=== PATIENT | male | born 1975 | race Caucasian/White ===

== ENCOUNTER 2023-05-14 19:14 | Inpatient (IN) ==
--- NOTE | 2023-05-14 20:16 | Emergency Department Note ---
Impression & Plan Decubitus ulcer of sacral area, Pneumonitis ED Provider Note NAME: NEHEMIAS SANTOS AGE: 47 SEX: M : 1975 ARRIVES VIA: Ambulance INFORMANT: Patient, ED PROVIDER(S): Rhett Frederick MD CHIEF COMPLAINT: Feeling cold all over HPI: This is a 47-year-old male history of paraplegia, CHF, constipation, hep C, hypertension, MRSA, PE, suprapubic catheter presenting for chills. Patient states that he states he has had about 1 week worth of weakness and pain throughout his body but most pronounced in his abdomen. He states that this became progressively worse today where he felt more shaking chills and sensation of feeling extremely cold. He notes that he went to outside hospitals previously but is unsure what exactly happened. He stated may have had a kidney infection related to a kidney stone. He has not had any fevers at home that is aware of. No nausea or vomiting. ROS: See above HPI for pertinent positives & negatives. A total of 10 systems reviewed and were otherwise negative. PAST MEDICAL HISTORY: See Below PAST SURGICAL HISTORY: See Below FAMILY HISTORY: See Below SOCIAL HISTORY: See Below HOME MEDICATIONS: See Below ALLERGIES: See Below VITALS: See Below PHYSICAL EXAMINATION: General: resting comfortably in no acute distress, in multiple blankets Head: Normocephalic and atraumatic Eyes: Normal inspection, extraocular muscles intact, no conjunctival pallor Ear, nose, throat: Normal external exam Neck: Normal range of motion Respiratory: Patient is in no respiratory distress, lungs clear to auscultation bilaterally Cardiovascular: RRR without murmur appreciated GI: soft, nontender, no guarding or rebound extensive sacral ulcer Extremities: pulses intact with good cap refills, no LE pitting edema or calf tenderness Neuro: The patient awake and alert, appropriately conversive,no focal decifits Skin: Warm, dry, and intact MEDICAL DECISION MAKING: This is a 47-year-old male history of paraplegia, suprapubic catheter, CHF, GERD, hep C, hypertension, MRSA infection, PE presenting for chills. Patient notes he was in outside hospital, [facility] as well as [facility]. I am able to check [facility]'s records which states that on 04/30 he was seen for concern for UTI pharmacy pubic catheter as well as sacral decubitus ulcer/osteomyelitis. At that time he received antibiotics, improved and was discharged. CT imaging shows from 04/30 and 05/02 of the abdomen/pelvis does reveal a nonobstructing left intrarenal calculi of unclear size and proctitis that resolved between these 2 scans. Last urinalysis on 04/30 grew Georgina albicans. His wound culture on his back from 03/15 grew MRSA. At this time we will get CT imaging of the chest abdomen pelvis due to patient's current symptoms. He states he has had possible pneumonia in the past and he feels similarly today. He also notes pain in his abdomen with burning. He states this is happened for his UTIs. Patient's blood work is reviewed showing WBC count of 11, hemoglobin 13.4, no creatinine elevation, no lactic acid elevation. Urinalysis does reveal signs of UTI at this time. We will treat as patient has CT findings consistent with cystitis as well. His CT of the chest otherwise does show infectious/inflammatory pneumonitis. CT of the and pelvis reveals the sacral ulcer with chronic osteomyelitis. Will admit for further work-up and treatment of his pneumonitis, UTI. Triage Nursing notes reviewed. Prior medical records reviewed Vital Signs: reviewed and remarkable for no significant abnormalities Differential diagnosis: Sepsis, high-pressure infection, sacral ulcer, PE, ACS ER treatment provided: See below Diagnostics interpreted by me: ECG: None Cardiac Monitoring: An order was placed for continuous cardiac monitoring. The monitor shows a rate of 56 with sinus rhythm Laboratory studies: As stated above and show below. Imaging studies: See below. Radiographic imaging was reviewed by myself Consultation(s): None Past Med/Surg History Social History Smoking Status: Unknown if ever smoked Feels Safe at Home: Yes Allergies Allergies Allergy/AdvReac Type Severity Reaction Status Date / Time No Known Allergies Allergy Verified 05/14/23 20:08 Home Meds Home Medications Medication Instructions Recorded Confirmed No Known Home Medications 05/14/23 05/14/23 Results & Data (ED) Vital Signs Vital Signs - 24 hr 05/14/23 19:07 05/14/23 21:18 05/15/23 01:31 Temperature 36.5 C Temperature Source Oral Pulse Rate 63 57 L 56 L Respiratory Rate 14 Blood Pressure 112/82 Blood Pressure Mean 92 Pulse Oximetry 98 Sepsis Recent Fever Within 48 Hours No Sepsis New/Unexplained Change in Mental Status No Sepsis Action Taken by Nursing No Action Required 05/14/23 21:06 05/14/23 21:30 05/14/23 22:00 Temperature Temperature Source Pulse Rate 57 L 68 65 Respiratory Rate 17 20 24 Blood Pressure Blood Pressure Mean Pulse Oximetry Sepsis Recent Fever Within 48 Hours Sepsis New/Unexplained Change in Mental Status Sepsis Action Taken by Nursing 05/14/23 22:30 05/14/23 23:00 05/14/23 23:30 Temperature Temperature Source Pulse Rate 53 L 54 L 60 Respiratory Rate 17 18 16 Blood Pressure Blood Pressure Mean Pulse Oximetry Sepsis Recent Fever Within 48 Hours Sepsis New/Unexplained Change in Mental Status Sepsis Action Taken by Nursing 05/15/23 00:00 05/15/23 00:30 05/15/23 01:00 Temperature Temperature Source Pulse Rate 69 55 L 60 Respiratory Rate 18 23 18 Blood Pressure Blood Pressure Mean Pulse Oximetry 96 Sepsis Recent Fever Within 48 Hours Sepsis New/Unexplained Change in Mental Status Sepsis Action Taken by Nursing 05/15/23 01:30 Temperature Temperature Source Pulse Rate 61 Respiratory Rate 22 Blood Pressure Blood Pressure Mean Pulse Oximetry Sepsis Recent Fever Within 48 Hours Sepsis New/Unexplained Change in Mental Status Sepsis Action Taken by Nursing Laboratory Data 05/14/23 20:37 05/14/23 20:37 Lab Results 05/14/23 05/14/23 05/14/23 Range/Units 20:37 20:37 20:37 WBC 11.09 H (4.8-10.8) K/ul RBC 5.28 (4.70-6.10) M/uL Hgb 13.4 L (14.0-18.0) g/dl Hct 41.4 L (42.0-52.0) % MCV 78.4 L (80.0-100.0) fL MCH 25.4 (25.0-34.0) pg MCHC 32.4 (32.0-36.0) g/dL RDW Std Deviation 52.7 H (36.4-46.3) fL RDW Coeff of Adelia 18.9 H (11.5-14.5) % Plt Count 285 (130-400) K/uL MPV 10.3 (9.4-12.4) fL Immature Gran % (Auto) 0.3 % Neut % (Auto) 73.0 % Lymph % (Auto) 14.5 % [place] % (Auto) 8.3 % Eos % (Auto) 3.1 % Baso % (Auto) 0.8 % Neut # (Auto) 8.10 H (1.40-6.50) K/uL Lymph # (Auto) 1.61 (1.20-3.40) K/uL [place] # (Auto) 0.92 H (0.11-0.59) K/uL Eos # (Auto) 0.34 (0.00-0.50) K/uL Baso # (Auto) 0.09 (0.00-0.20) K/uL Immature Gran # (Auto) 0.03 (0.01-0.20) K/uL Sodium 137 (136-145) mmol/L Potassium 3.9 (3.5-5.1) mmol/L Chloride 104 (98-107) mmol/L Carbon Dioxide 28 (21-32) mmol/L Anion Gap 5 (3-11) BUN 10 (6-23) mg/dl Creatinine 0.46 L (0.6-1.4) mg/dl Est Cr Clr Drug Dosing 221.1 ml/min Est GFR ( Amer) > 150.0 ml/min Est GFR (Non-Af Amer) 134.5 ml/min BUN/Creatinine Ratio 21.7 H (10-20) Glucose 97 (70-99(Fasting)) mg/dl Lactate (0.4-2.0) mmol/L Calcium 9.6 (8.6-10.3) mg/dl Magnesium 2.0 (1.7-2.4) mg/dl Total Bilirubin 0.4 (0.2-1.0) mg/dl AST 21 (13-39) U/L ALT 15 (7-52) U/L Alkaline Phosphatase 194 H (34-104) U/L Total Protein 6.9 (6.0-8.3) gm/dl Albumin 4.0 (3.4-5.0) gm/dl Globulin 2.9 (2.5-4.0) gm/dl Albumin/Globulin Ratio 1.4 (0.9-2) Lipase 26 (11-82) U/L Urine Color Yellow Urine Appearance Cloudy A (Clear) Urine pH 7.5 (4.5-7.5) Ur Specific [place] 1.016 (1.000-1.030) Urine Protein Trace H (Negative) Urine Glucose (UA) Negative (Negative) Urine Ketones Negative (Negative) Urine Blood Trace H (Negative) Urine Nitrite Negative (Negative) Urine Bilirubin Negative (Negative) Urine Urobilinogen Negative (Negative) Ur Leukocyte Esterase 3+ H (Negative) Urine WBC (Auto) >30 H (0-5) /hpf Urine RBC (Auto) 5-10 H (0-4) /hpf U Hyaline Cast (Auto) 1-5 (0-5) /lpf U Epithel Cells (Auto) 0-5 (0-5) /lpf Urine Bacteria (Auto) Negative (Negative) Calcium Oxalate Crystal Present A (None Prsent) Urine Yeast Present A (None Prsent) Adenovirus (PCR) (NotDetected) B. pertussis DNA (PCR) (NotDetected) B.parapertussis DNA PCR (NotDetected) C. pneumoniae DNA (PCR) (NotDetected) Coronavirus OC43 (PCR) (NotDetected) Coronavirus HKU1 (PCR) (NotDetected) Coronavirus 229E (PCR) (NotDetected) SARS-CoV-2 (PCR) (NotDetected) Coronavirus NL63 (PCR) (NotDetected) Human Metapneumovir PCR (NotDetected) Influenza Type A (PCR) (NotDetected) Influenza Type B (PCR) (NotDetected) M. pneumoniae (PCR) (NotDetected) Parainfluenza 1 (PCR) (NotDetected) Parainfluenza 2 (PCR) (NotDetected) Parainfluenza 3 (PCR) (NotDetected) Parainfluenza 4 (PCR) (NotDetected) RSV (PCR) (NotDetected) Entero/Rhino (PCR) (NotDetected) 05/14/23 05/15/23 Range/Units 21:37 00:00 WBC (4.8-10.8) K/ul RBC (4.70-6.10) M/uL Hgb (14.0-18.0) g/dl Hct (42.0-52.0) % MCV (80.0-100.0) fL MCH (25.0-34.0) pg MCHC (32.0-36.0) g/dL RDW Std Deviation (36.4-46.3) fL RDW Coeff of Adelia (11.5-14.5) % Plt Count (130-400) K/uL MPV (9.4-12.4) fL Immature Gran % (Auto) % Neut % (Auto) % Lymph % (Auto) % [place] % (Auto) % Eos % (Auto) % Baso % (Auto) % Neut # (Auto) (1.40-6.50) K/uL Lymph # (Auto) (1.20-3.40) K/uL [place] # (Auto) (0.11-0.59) K/uL Eos # (Auto) (0.00-0.50) K/uL Baso # (Auto) (0.00-0.20) K/uL Immature Gran # (Auto) (0.01-0.20) K/uL Sodium (136-145) mmol/L Potassium (3.5-5.1) mmol/L Chloride (98-107) mmol/L Carbon Dioxide (21-32) mmol/L Anion Gap (3-11) BUN (6-23) mg/dl Creatinine (0.6-1.4) mg/dl Est Cr Clr Drug Dosing ml/min Est GFR ( Amer) ml/min Est GFR (Non-Af Amer) ml/min BUN/Creatinine Ratio (10-20) Glucose (70-99(Fasting)) mg/dl Lactate 0.6 (0.4-2.0) mmol/L Calcium (8.6-10.3) mg/dl Magnesium (1.7-2.4) mg/dl Total Bilirubin (0.2-1.0) mg/dl AST (13-39) U/L ALT (7-52) U/L Alkaline Phosphatase (34-104) U/L Total Protein (6.0-8.3) gm/dl Albumin (3.4-5.0) gm/dl Globulin (2.5-4.0) gm/dl Albumin/Globulin Ratio (0.9-2) Lipase (11-82) U/L Urine Color Urine Appearance (Clear) Urine pH (4.5-7.5) Ur Specific [place] (1.000-1.030) Urine Protein (Negative) Urine Glucose (UA) (Negative) Urine Ketones (Negative) Urine Blood (Negative) Urine Nitrite (Negative) Urine Bilirubin (Negative) Urine Urobilinogen (Negative) Ur Leukocyte Esterase (Negative) Urine WBC (Auto) (0-5) /hpf Urine RBC (Auto) (0-4) /hpf U Hyaline Cast (Auto) (0-5) /lpf U Epithel Cells (Auto) (0-5) /lpf Urine Bacteria (Auto) (Negative) Calcium Oxalate Crystal (None Prsent) Urine Yeast (None Prsent) Adenovirus (PCR) Not Detected (NotDetected) B. pertussis DNA (PCR) Not Detected (NotDetected) B.parapertussis DNA PCR Not Detected (NotDetected) C. pneumoniae DNA (PCR) Not Detected (NotDetected) Coronavirus OC43 (PCR) Not Detected (NotDetected) Coronavirus HKU1 (PCR) Not Detected (NotDetected) Coronavirus 229E (PCR) Not Detected (NotDetected) SARS-CoV-2 (PCR) Not Detected (NotDetected) Coronavirus NL63 (PCR) Not Detected (NotDetected) Human Metapneumovir PCR Not Detected (NotDetected) Influenza Type A (PCR) Not Detected (NotDetected) Influenza Type B (PCR) Not Detected (NotDetected) M. pneumoniae (PCR) Not Detected (NotDetected) Parainfluenza 1 (PCR) Not Detected (NotDetected) Parainfluenza 2 (PCR) Not Detected (NotDetected) Parainfluenza 3 (PCR) Not Detected (NotDetected) Parainfluenza 4 (PCR) Not Detected (NotDetected) RSV (PCR) Not Detected (NotDetected) Entero/Rhino (PCR) DETECTED A* (NotDetected) Administered Medications Discontinued Medications Ceftriaxone Sodium 2,000 mg/ (Dextrose) 70 mls @ 100 mls/hr IV NOW STA; Protocol Stop: 05/15/23 00:55 Last Infusion: 05/15/23 01:26 Dose: 0 mls/hr Documented By: Admin: 05/15/23 00:39 Dose: 100 mls/hr Documented By: Ioversol (Optiray 320 100ml) 91 ml IV ONCE ONE Stop: 05/14/23 21:48 Last Admin: 05/14/23 21:48 Dose: 91 ml Documented By: CORRIE Ketorolac Tromethamine (Ketorolac Tromethamine 15 Mg/Ml Vial) 15 mg IV NOW ONE Stop: 05/15/23 00:36 Last Admin: 05/15/23 00:38 Dose: 15 mg Documented By: Imaging Data Radiologist's Impression: Abdomen/Pelvis CT 05/14/23 20:02 CT SCAN OF THE ABDOMEN AND PELVIS WITH IV CONTRAST CLINICAL HISTORY: Generalized abdominal pain. COMPARISON STUDY: No priors. TECHNIQUE: Following the IV administration of 91 cc of Optiray 320, CT scan of the abdomen and pelvis is performed from the lung bases to the proximal femora. Images are reviewed in the axial, sagittal, and coronal planes. IV contrast was administered without complication. A dose lowering technique was utilized ad hamlet to the principles of ALARA. CT DOSE: 2909.35 mGy.cm FINDINGS: Lung bases: The heart is normal in size and without pericardial effusion. Peribronchial thickening is seen in the lower lobes with residual minimal secr etions/debris. Bibasilar airspace opacities could represent scar/atelectasis versus mild pneumonitis. No pleural effusion is seen. Liver: The contrast-enhanced liver is normal in size, contour, and attenuation. There is mild central intrahepatic biliary ductal dilatation. The hepatic veins and portal veins are patent. Gallbladder: Surgically absent noting clips in the gallbladder fossa. Spleen: Normal in size and attenuation. Pancreas: Unremarkable. Adrenal glands: Unremarkable. Kidneys: The contrast enhanced kidneys are normal in size and without hydronephrosis. The kidneys enhance symmetrically. There are at least 3 nonobstructing left renal calculi which measure up to 10 mm. A punctate calculus is suggested in the right lower pole. No ureteral stone is seen. Abdominal vasculature: The abdominal aorta is normal in course and caliber. Bowel: There is mild to moderate colonic fecal retention. No bowel obstruction is seen. The appendix is not visualized. Peritoneum: There is no intraperitoneal free air or abdominal ascites. There is a small fat-containing umbilical hernia. Lymphadenopathy: None. Pelvic viscera: The bladder is decompressed around a suprapubic catheter. The wall appears diffusely thickened and there are foci of intraluminal gas. The prostate and seminal vesicles are normal as visualized. Skeletal structures: The skeletal structures are osteopenic. No lytic or blastic lesions are seen. The lower sacrum and coccyx have been resected. There is a large decubitus ulceration overlying the sacrum. This reaches the sacral cortex, and there is underlying sclerotic change. No bony erosion is clearly identified. IMPRESSION: 1. Dependent opacities are present both lung bases, left greater then right as detailed above. This could represent scarring/atelectasis versus a mild pneumonitis. Clinical correlation will be required. Radiographic follow-up to resolution is recommended. 2. The bladder is decompressed around a suprapubic catheter and appears diffusely thick-walled. Correlate with clinical findings and urinalysis for evidence of cystitis. 3. Bilateral nephrolithiasis. No ureteral stone is seen. 4. Large sacral decubitus ulceration, which extends to the underlying sacrum. There is sclerotic change in the underlying bone which may represent chronic osteomyelitis. No erosive change is identified. Correlate clinically. 5. Additional findings as above. ACT 112: Negative or not required by law. Electronically signed by: Ramo Green M.D. 05/14/2023 10:[address] 05/14/23 20:02 CT SCAN OF THE CHEST WITH IV CONTRAST CLINICAL HISTORY: Dyspnea. COMPARISON STUDY: No priors. TECHNIQUE: Following the IV administration of 91 cc of Optiray 320, CT scan of the thorax was performed from the thoracic inlet to the upper abdomen. Images are reviewed in the axial, sagittal, and coronal planes. IV contrast was administered without complication. A dose lowering technique was utilized adhering to the principles of ALARA. The examination is degraded by motion artifact, as well as by streak artifact from the arms which could not be elevated above the chest. FINDINGS: Thyroid: Imaged portions of the thyroid gland are normal in size and attenuation. Thoracic aorta: The thoracic aorta is normal in caliber and demonstrates 4- vessel variant arch anatomy. No dissection is seen. Pulmonary vasculature: The pulmonary trunk is normal in caliber. There are no filling defects identified in the central pulmonary vessels to indicate pulmonary embolus. Note that this examination was not protocoled for evaluation of the pulmonary arteries. Heart: The heart is top normal in size and without pericardial effusion. Lungs and pleural spaces: Evaluation of the lung parenchyma is mostly degraded by motion artifact. There are patchy foci of subpleural airspace consolidation in the upper lobes. Peribronchial thickening is seen in the lower lobes with mucous plugging/intraluminal debris. There are dependent airspace opacities, left greater than right. No pleural effusion is identified. The trachea appears clear. Debris is seen within the mainstem bronchi. Mediastinum: There is no mediastinal lymphadenopathy. Aliya: Clear. Axillae: There is no axillary lymphadenopathy. Upper abdomen: Partially visualized upper abdominal viscera is within normal limits. Skeletal structures: The skeletal structures are osteopenic. No lytic or blastic bony lesions are seen. Fusion hardware is noted at the cervicothoracic junction. Mild hyperkyphosis is noted in the thoracic spine. IMPRESSION: 1. There are patchy foci of subpleural airspace consolidation in the upper lobes, typical for an infectious/inflammatory pneumonitis. 2. Additionally, there is diffuse peribronchial thickening with debris/mucus plugging mainstem bronchi as well as the lower lobe airways. There are dependent airspace opacities at both lung bases, left greater than right. This comparison scarring/atelectasis versus pneumonia/aspiration pneumonitis. Clinical correlation of these findings will be required and radiographic follow-up to resolution is recommended. A 3-4 month follow-up chest CT is also recommended to document complete resolution and reevaluate the underlying lung parenchyma. 3. There is no pleural effusion. 4. Additional findings as above. ACT 112: Negative or not required by law. Electronically signed by: Ramo Green M.D. 05/14/2023 11:17 PM Discharge Plan Visit Data Chief Complaint: Illness Stated Complaint: ILLNESS ED Provider: Rhett Frederick Discharge Problem: Decubitus ulcer of sacral area, Pneumonitis Forms Stand Alone Forms: [employer] Prescriptions Prescriptions: No Action No Known Home Medications Referrals Referrals: Ricky Link MD [Surgeon] -
[2023-05-14 21:22] LABS: Alanine Aminotransferase 15 U/L (7-52); Albumin Globulin Ratio 1.4 (0.9-2); Alkaline Phosphatase 194 U/L (34-104); Anion Gap 5 (3-11); Aspartate Aminotransferase 21 U/L (13-39); BUN Creatinine Ratio 21.7 (10-20); Bilirubin,Total 0.4 mg/dl (0.2-1.0); Blood Urea Nitrogen 10 mg/dl (6-23); Calcium 9.6 mg/dl (8.6-10.3); Carbon Dioxide 28 mmol/L (21-32); Chloride 104 mmol/L (98-107); Creatinine Clr Calc Pharmacy 221.1 ml/min; Est GFR (African American) > 150.0 ml/min; Est GFR (Non-African American) 134.5 ml/min; Globulin 2.9 gm/dl (2.5-4.0); Glucose 97 mg/dl (70-99(Fasting)); Lipase 26 U/L (11-82); Potassium 3.9 mmol/L (3.5-5.1); Sodium 137 mmol/L (136-145); Total Protein 6.9 gm/dl (6.0-8.3)
[2023-05-14] MEDS ORDERED: OPTIRAY 320 100ml IV ONE (21:47)
[2023-05-14 21:49] LABS: Basophils # (auto) 0.09 K/uL (0.00-0.20); Basophils % (auto) 0.8 %; Eosinophils # (auto) 0.34 K/uL (0.00-0.50); Eosinophils % (auto) 3.1 %; Hematocrit (blood only) 41.4 % (42.0-52.0); Hemoglobin 13.4 g/dl (14.0-18.0); Immature Granulocytes # (auto) 0.03 K/uL (0.01-0.20); Immature Granulocytes % (auto) 0.3 %; Lymphocytes # (auto) 1.61 K/uL (1.20-3.40); Lymphocytes % (auto) 14.5 %; Mean Corpuscular Hemoglobin 25.4 pg (25.0-34.0); Mean Corpuscular Hgb Conc 32.4 g/dL (32.0-36.0); Mean Corpuscular Volume 78.4 fL (80.0-100.0); Mean Platelet Volume 10.3 fL (9.4-12.4); Monocytes # (auto) 0.92 K/uL (0.11-0.59); Monocytes % (auto) 8.3 %; Platelet Count 285 K/uL (130-400); RDW Coefficient of Variation 18.9 % (11.5-14.5); RDW Standard Deviation 52.7 fL (36.4-46.3); Red Blood Count 5.28 M/uL (4.70-6.10); White Blood Count 11.09 K/ul (4.8-10.8)
[2023-05-14 21:53] LABS: Appearance Urine Cloudy (Clear); Bacteria Urine Automated Negative (Negative); Bilirubin Urine Negative (Negative); Blood Urine Trace (Negative); Color Urine Yellow; Epithelial Cell Urine Auto 0-5 /lpf (0-5); Glucose Urine UA Negative (Negative); Ketones Urine Negative (Negative); Leukocyte Esterase Urine 3+ (Negative); Nitrite Urine Negative (Negative); Specific Gravity Urine 1.016 (1.000-1.030); Urobilinogen Urine Negative (Negative); WBC Urine Automated >30 /hpf (0-5); pH Urine 7.5 (4.5-7.5)
[2023-05-14 21:59] LABS: Protein Urine Trace (Negative)
[2023-05-14 22:12] LABS: Calcium Oxalate Crystals Urine Present (None Prsent)
--- NOTE | 2023-05-14 22:55 | CT Scan Report ---
CT SCAN OF THE ABDOMEN AND PELVIS WITH IV CONTRAST CLINICAL HISTORY: Generalized abdominal pain. COMPARISON STUDY: No priors. TECHNIQUE: Following the IV administration of 91 cc of Optiray 320, CT scan of the abdomen and pelvi s is performed from the lung bases to the proximal femora. Images are reviewed in the axial, sagittal , and coronal planes. IV contrast was administered without complication. A dose lowering technique wa s utilized adhering to the principles of ALARA. CT DOSE: 2909.35 mGy.cm FINDINGS: Lung bases: The heart is normal in size and without pericardial effusion. Peribronchial thickening is seen in the lower lobes with residual minimal secretions/debris. Bibasilar airspace opacities could represent scar/atelectasis versus mild pneumonitis. No pleural effusion is seen. Liver: The contrast-enhanced liver is normal in size, contour, and attenuation. There is mild central intrahepatic biliary ductal dilatation. The hepatic veins and portal veins are patent. Gallbladder: Surgically absent noting clips in the gallbladder fossa. Spleen: Normal in size and attenuation. Pancreas: Unremarkable. Adrenal glands: Unremarkable. Kidneys: The contrast enhanced kidneys are normal in size and without hydronephrosis. The kidneys enh ance symmetrically. There are at least 3 nonobstructing left renal calculi which measure up to 10 mm. A punctate calculus is suggested in the right lower pole. No ureteral stone is seen. Abdominal vasculature: The abdominal aorta is normal in course and caliber. Bowel: There is mild to moderate colonic fecal retention. No bowel obstruction is seen. The appendix is not visualized. Peritoneum: There is no intraperitoneal free air or abdominal ascites. There is a small fat-containin g umbilical hernia. Lymphadenopathy: None. Pelvic viscera: The bladder is decompressed around a suprapubic catheter. The wall appears diffusely thickened and there are foci of intraluminal gas. The prostate and seminal vesicles are normal as vis ualized. Skeletal structures: The skeletal structures are osteopenic. No lytic or blastic lesions are seen. Th e lower sacrum and coccyx have been resected. There is a large decubitus ulceration overlying the sac rum. This reaches the sacral cortex, and there is underlying sclerotic change. No bony erosion is jamie catherine identified. IMPRESSION: 1. Dependent opacities are present both lung bases, left greater then right as detailed above. This c ould represent scarring/atelectasis versus a mild pneumonitis. Clinical correlation will be required. Radiographic follow-up to resolution is recommended. 2. The bladder is decompressed around a suprapubic catheter and appears diffusely thick-walled. Corre late with clinical findings and urinalysis for evidence of cystitis. 3. Bilateral nephrolithiasis. No ureteral stone is seen. 4. Large sacral decubitus ulceration, which extends to the underlying sacrum. There is sclerotic joyce ge in the underlying bone which may represent chronic osteomyelitis. No erosive change is identified. Correlate clinically. 5. Additional findings as above. ACT 112: Negative or not required by law. Electronically signed by: Ramo Green M.D. 05/14/2023 10:53 PM
--- NOTE | 2023-05-14 23:19 | CT Scan Report ---
CT SCAN OF THE CHEST WITH IV CONTRAST CLINICAL HISTORY: Dyspnea. COMPARISON STUDY: No priors. TECHNIQUE: Following the IV administration of 91 cc of Optiray 320, CT scan of the thorax was perform ed from the thoracic inlet to the upper abdomen. Images are reviewed in the axial, sagittal, and augustine nal planes. IV contrast was administered without complication. A dose lowering technique was utilize d adhering to the principles of ALARA. The examination is degraded by motion artifact, as well as by streak artifact from the arms which could not be elevated above the chest. FINDINGS: Thyroid: Imaged portions of the thyroid gland are normal in size and attenuation. Thoracic aorta: The thoracic aorta is normal in caliber and demonstrates 4-vessel variant arch anatom y. No dissection is seen. Pulmonary vasculature: The pulmonary trunk is normal in caliber. There are no filling defects identif ied in the central pulmonary vessels to indicate pulmonary embolus. Note that this examination was no t protocoled for evaluation of the pulmonary arteries. Heart: The heart is top normal in size and without pericardial effusion. Lungs and pleural spaces: Evaluation of the lung parenchyma is mostly degraded by motion artifact. Th ere are patchy foci of subpleural airspace consolidation in the upper lobes. Peribronchial thickening is seen in the lower lobes with mucous plugging/intraluminal debris. There are dependent airspace op acities, left greater than right. No pleural effusion is identified. The trachea appears clear. Debri s is seen within the mainstem bronchi. Mediastinum: There is no mediastinal lymphadenopathy. Aliya: Clear. Axillae: There is no axillary lymphadenopathy. Upper abdomen: Partially visualized upper abdominal viscera is within normal limits. Skeletal structures: The skeletal structures are osteopenic. No lytic or blastic bony lesions are see n. Fusion hardware is noted at the cervicothoracic junction. Mild hyperkyphosis is noted in the thora cic spine. IMPRESSION: 1. There are patchy foci of subpleural airspace consolidation in the upper lobes, typical for an infe ctious/inflammatory pneumonitis. 2. Additionally, there is diffuse peribronchial thickening with debris/mucus plugging mainstem bronch i as well as the lower lobe airways. There are dependent airspace opacities at both lung bases, left greater than right. This comparison scarring/atelectasis versus pneumonia/aspiration pneumonitis. Cli nical correlation of these findings will be required and radiographic follow-up to resolution is lucille mmended. A 3-4 month follow-up chest CT is also recommended to document complete resolution and reeva luate the underlying lung parenchyma. 3. There is no pleural effusion. 4. Additional findings as above. ACT 112: Negative or not required by law. Electronically signed by: Ramo Green M.D. 05/14/2023 11:17 PM
[2023-05-15] MEDS ORDERED: cefTRIAXone SODIUM 2,000 MG in DEXTROSE 5% 50 ML IV STA (00:14)
[2023-05-15] MEDS ORDERED: KETOROLAC TROMETHAMINE 15 MG/ML VIAL IV ONE ×2 (00:35→01:39)
[2023-05-15] MEDS ORDERED: SODIUM CHLORIDE 0.9% 1,000 ML IV ONE (00:39)
[2023-05-15 01:08] LABS: Adenovirus PCR Not Detected (NotDetected); Bordetella parapertussis PCR Not Detected (NotDetected); Bordetella pertussis PCR Not Detected (NotDetected); Chlamydia pneumoniae PCR Not Detected (NotDetected); Coronavirus 229E PCR Not Detected (NotDetected); Coronavirus CoV-2 (COVID19)PCR Not Detected (NotDetected); Coronavirus HKU1 PCR Not Detected (NotDetected); Coronavirus NL63 PCR Not Detected (NotDetected); Coronavirus OC43PCR Not Detected (NotDetected); Human Metapneumovirus PCR Not Detected (NotDetected); Influenza A PCR Not Detected (NotDetected); Influenza B PCR Not Detected (NotDetected); Mycoplasma pneumoniae PCR Not Detected (NotDetected); Parainfluenza Virus 1 PCR Not Detected (NotDetected); Parainfluenza Virus 2 PCR Not Detected (NotDetected); Parainfluenza Virus 3 PCR Not Detected (NotDetected); Parainfluenza Virus 4 PCR Not Detected (NotDetected); Respiratory Syncytial VirusPCR Not Detected (NotDetected)
[2023-05-15 01:15] LABS: Rhinovirus/Enterovirus PCR DETECTED (NotDetected)
[2023-05-15] MEDS ORDERED: MEROPENEM 500 MG in SYRINGE 0 ML IV ONE (01:15)
[2023-05-15] MEDS ORDERED: FLUCONAZOLE 200 MG/100 ML BAG IV ONE (01:15)
[2023-05-15] MEDS ORDERED: ALBUT/IPRATROP 3MG/0.5MG NEB 3 ML VIAL NEB STA (01:38)
--- NOTE | 2023-05-15 01:38 | History & Physical Report ---
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) recurrent UTI secondary to neurogenic bladder with chronic indwelling suprapubic catheter, poor compliance with suprapubic catheter care and outpatient urology visits as per specialist documentation hypotension on midodrine HCV status post Rx chronic anemia, hemoglobin at baseline chronic sacral decubitus/leg osteomyelitis, not worsening as per patient chronic pain on narcotics anxiety/mood disorder, at baseline hx substance abuse as per records Possible functional disability ongoing tobacco abuse History of MRSA Medical telemetry Meropenem for possible aspiration pneumonia resulting in COPD exacerbation nebs RTC, short course of steroids Aspiration precautions, CULINARY DIRECTOR eval Pulmonary consult if without improvement Urine CS Meropenem for complicated UTI in light of microbiologic history Fluconazole for funguria [facility] ID consult Re: Complicated UTI/funguria May benefit from inpatient Urology consultation pending recommendations. Wound care nurse consult re: chronic decubiti wounds Judicious narcotic use given history of substance abuse PT OT eval Nicotine patch as needed DVT prophylaxis. Eliquis Full code Text document was generated using [employer] voice recognition software. It may contain grammatical or spelling errors. Kindly contact undersigned for clarification of any documentation item in question. History of Present Illness Chief Complaint: Cough, shortness of breath, abdominal pain, weakness Primary Care Provider: Dr. Aguilar History obtained from patient and records. 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 Last confinement at [facility] April 22 to 2022 for chronic sacral and LE osteomyelitis. Pseudomonas and Enterobacter on CS. Patient discharged on 10-day course of Cipro Rx as per ID recommendations. Patient later developed flank pain followed by admission at [facility]. CT imaging showed nonobstructing left intrarenal calculi of unclear size and proctitis as per report. UA grew Georgina albicans. Patient discharged on antibiotic medications. Patient returned to [facility] ER last May 04, 2023 for persistent flank pain complaints attributed to UTI. CT abdomen pelvis results as follows; 1. Nonobstructing bilateral renal calculi greater on the left. 2. Stable suprapubic catheter with diffuse wall thickening and non dependent air within the bladder secondary to catheterization. 3. Sacral decubitus ulcer with associated osteomyelitis of the sacrum. Patient discharged on Cefdinir course. No growth on final urine CS. Patient noted worsening achy flank pain complaints in the last week. Patient missed outpatient [facility] Urology appointment. Feeling cold all over. Junky cough symptoms with shortness of breath. Admits to coughing with meals/water intake if not careful. Some chest pain from coughing. No headache symptoms. No hematuria. Patient brought to the ER for evaluation. IV ceftriaxone administered at the ER. Medical History as above Surgical History : Ankle surgery, neck surgery, urologic procedures, arm surgery, appendectomy Family History : Heart disease Personal/Social history : 2 packs daily, occasional EtOH intake, disabled Allergies Allergy/AdvReac Type Severity Reaction Status Date / Time No Known Allergies Allergy Verified 05/14/23 20:08 Home Medications Medication Instructions Recorded Confirmed Type Naloxone Hcl 4 Mg/0.1ml Liquid See Rx Instructions .Route .COMPLEX 05/15/23 05/15/23 History acetaminophen 500 mg tablet 500 mg PO .Q 4 HRS WHILE AWAKE 05/15/23 05/15/23 H istory apixaban 5 mg tablet 5 mg PO AMHS 05/15/23 05/15/23 History ascorbic acid (vitamin C) 500 mg 500 mg PO QAM 05/15/23 05/15/23 History tablet (Vitamin C) baclofen 10 mg tablet 20 mg PO TID 05/15/23 05/15/23 History bisacodyl 10 mg rectal suppository 10 mg LA AMPM 05/15/23 05/15/23 History celecoxib 200 mg capsule 200 mg PO AMHS 05/15/23 05/15/23 History ciprofloxacin HCl 500 mg tablet 500 mg PO AMHS 05/15/23 05/15/23 History collagenase clostridium histo. 250 1 applic topical DAILY 05/15/23 05/15/23 History unit/gram topical ointment (Santyl) diclofenac sodium 1 % topical gel 2 g topical QID 05/15/23 05/15/23 History duloxetine 60 mg capsule,delayed 60 mg PO QAM 05/15/23 05/15/23 History release famotidine 20 mg tablet 20 mg PO AMHS 05/15/23 05/15/23 History ferrous sulfate 325 mg (65 mg 325 mg PO QDB 05/15/23 05/15/23 History iron) tablet fluticasone propionate 100 1 inh inhalation AMHS 05/15/23 05/15/23 History mcg/actuation blister powder for inhalation gabapentin 100 mg capsule 200 mg PO TID 05/15/23 05/15/23 History hydroxyzine HCl 25 mg tablet 25 mg PO QAM 05/15/23 05/15/23 History lactulose 20 gram/30 mL oral 20 g PO TID 05/15/23 05/15/23 History solution lidocaine 5 % topical patch 1 patch topical DAILY 05/15/23 05/15/23 History lidocaine HCl 2 % mucosal solution 5 ml PO ACHS PRN as directed 05/15/23 05/15/23 History (Lidocaine Viscous) melatonin 3 mg tablet 3 mg PO HS 05/15/23 05/15/23 History midodrine 10 mg tablet 5 mg PO TID 05/15/23 05/15/23 History mirabegron 50 mg tablet,extended 50 mg PO QAM 05/15/23 05/15/23 History release 24 hr (Myrbetriq) multivitamin 1 tab PO DAILY 05/15/23 05/15/23 History oxybutynin chloride 10 mg 10 mg PO QAM 05/15/23 05/15/23 History tablet,extended release 24 hr oxycodone 15 mg tablet (Roxicodone) 15 mg PO Q4H PRN pain severe 05/15/23 05/15/23 History pantoprazole 40 mg tablet,delayed 40 mg PO QAM 05/15/23 05/15/23 History release polyethylene glycol 3350 17 gram 17 g PO AMHS 05/15/23 05/15/23 History oral powder packet (Miralax) potassium chloride 20 mEq 20 meq PO AMHS 05/15/23 05/15/23 History tablet,extended release(part/cryst) sennosides 8.6 mg-docusate sodium 2 tab-cap PO HS 05/15/23 05/15/23 History 50 mg tablet solifenacin 10 mg tablet 10 mg PO QAM 05/15/23 05/15/23 History trazodone 50 mg tablet 50 mg PO HS 05/15/23 05/15/23 History umeclidinium 62.5 mcg-vilanterol 1 inh inhalation [facility] 05/15/23 05/15/23 History 25 mcg/actuation powdr for inhalation (Anoro Ellipta) Past Med/Surg History Social History Smoking Status: Heavy tobacco smoker Tobacco Type: Cigarettes Cigarettes Per Day: 40; Second Hand Exposure: Yes; Do You Dip or Chew Tobacco: No; Tobacco Cessation Education Requested by Patient: No Hx Alcohol Use: No Hx Substance Use: Yes Last Used Substance: Unknown Preferred Language: Kinyarwanda Communication Ability: Effective Toy Painter Required: No Beliefs That Will Affect Care: None Current Living Situation: Alone and Family Other Information That Helps Us Care for You: No Feels Safe at Home: Yes Safety Concerns: Feels Safe At This Time Assistive Devices: Wheelchair Review of Systems Review of Systems: As per HPI, all other systems reviewed and negative Physical Exam Physical Exam: GENERAL: Slightly uncomfortable, looks older than stated age, no respiratory distress SKIN: Pallor, warm HEENT: Alopecia, pale palpebral conjunctivae, no ptosis, dry buccal mucosa NECK : Some limitation in motion, no tenderness CHEST : Decreased breath sounds, bilateral rhonchi with scattered wheezes, no tenderness HEART : Bradycardic, no obvious murmurs ABDOMEN: Some distention, hypogastric tenderness EXTREMITIES : Minimal LE swelling/tenderness, posterior surfaces not examined NEUROLOGIC : Coherent, no facial asymmetry, MMTS BUE 3/5, BLE 0 Results & Data Results & Data Vital Signs (Past 12 Hours) Vital Signs Temp Pulse Resp BP Pulse Ox 05/15/23 01:31 56 L 05/14/23 21:18 57 L 05/14/23 19:07 36.5 C 63 14 112/82 98 Laboratory Results Laboratory Results WBC 11.09 K/ul (4.8-10.8) H 05/14/23 20:37 RBC 5.28 M/uL (4.70-6.10) 05/14/23 20:37 Hgb 13.4 g/dl (14.0-18.0) L 05/14/23 20:37 Hct 41.4 % (42.0-52.0) L 05/14/23 20:37 MCV 78.4 fL (80.0-100.0) L 05/14/23 20:37 MCH 25.4 pg (25.0-34.0) 05/14/23 20: MCHC 32.4 g/dL (32.0-36.0) 05/14/23 20:37 RDW Std Deviation 52.7 fL (36.4-46.3) H 05/14/23 20:37 RDW Coeff of Adelia 18.9 % (11.5-14.5) H 05/14/23 20:37 Plt Count 285 K/uL (130-400) 05/14/23 20:37 MPV 10.3 fL (9.4-12.4) 05/14/23 20:37 Immature Gran % (Auto) 0.3 % 05/14/23 20:37 Neut % (Auto) 73.0 % 05/14/23 20:37 Lymph % (Auto) 14.5 % 05/14/23 20:37 Jasper % (Auto) 8.3 % 05/14/23 20:37 Eos % (Auto) 3.1 % 05/14/23 20:37 Baso % (Auto) 0.8 % 05/14/23 20:37 Neut # (Auto) 8.10 K/uL (1.40-6.50) H 05/14/23 20:37 Lymph # (Auto) 1.61 K/uL (1.20-3.40) 05/14/23 20:37 Jasper # (Auto) 0.92 K/uL (0.11-0.59) H 05/14/23 20:37 Eos # (Auto) 0.34 K/uL (0.00-0.50) 05/14/23 20:37 Baso # (Auto) 0.09 K/uL (0.00-0.20) 05/14/23 20:37 Immature Gran # (Auto) 0.03 K/uL (0.01-0.20) 05/14/23 20:37 Sodium 137 mmol/L (136-145) 05/14/23 20:37 Potassium 3.9 mmol/L (3.5-5.1) 05/14/23 20:37 Chloride 104 mmol/L (98-107) 05/14/23 20:37 Carbon Dioxide 28 mmol/L (21-32) 05/14/23 20:37 Anion Gap 5 (3-11) 05/14/23 20:37 BUN 10 mg/dl (6-23) 05/14/23 20:37 Creatinine 0.46 mg/dl (0.6-1.4) L 05/14/23 20:37 Est Cr Clr Drug Dosing 221.1 ml/min 05/14/23 20:37 Est GFR ( Amer) > 150.0 ml/min 05/14/23 20:37 Est GFR (Non-Af Amer) 134.5 ml/min 05/14/23 20:37 BUN/Creatinine Ratio 21.7 (10-20) H 05/14/23 20:37 Glucose 97 mg/dl (70-99(Fasting)) 05/14/23 20:37 Lactate 0.6 mmol/L (0.4-2.0) 05/14/23 21:37 Calcium 9.6 mg/dl (8.6-10.3) 05/14/23 20:37 Magnesium 2.0 mg/dl (1.7-2.4) 05/14/23 20:37 Total Bilirubin 0.4 mg/dl (0.2-1.0) 05/14/23 20:37 AST 21 U/L (13-39) 05/14/23 20:37 ALT 15 U/L (7-52) 05/14/23 20:37 Alkaline Phosphatase 194 U/L (34-104) H 05/14/23 20:37 Total Protein 6.9 gm/dl (6.0-8.3) 05/14/23 20:37 Albumin 4.0 gm/dl (3.4-5.0) 05/14/23 20: Globulin 2.9 gm/dl (2.5-4.0) 05/14/23 20: Albumin/Globulin Ratio 1.4 (0.9-2) 05/14/23 20: Lipase 26 U/L (11-82) 05/14/23 20:37 Urine Color Yellow 05/14/23 20: Urine Appearance Cloudy (Clear) A 05/14/23 20: Urine pH 7.5 (4.5-7.5) 05/14/23 20:37 Ur Specific [place] 1.016 (1.000-1.030) 05/14/23 20: Urine Protein Trace (Negative) H 05/14/23 20:37 Urine Glucose (UA) Negative (Negative) 05/14/23: Urine Ketones Negative (Negative) 05/14/23 20: Urine Blood Trace (Negative) H 05/14/23 20:37 Urine Nitrite Negative (Negative) 05/14/23: Urine Bilirubin Negative (Negative) 05/14/23:37 Urine Urobilinogen Negative (Negative) 05/14/23 20:37 Ur Leukocyte Esterase 3+ (Negative) H 05/14/23 20:37 Urine WBC (Auto) >30 /hpf (0-5) H 05/14/23 20:37 Urine RBC (Auto) 5-10 /hpf (0-4) H 05/14/23 20:37 U Hyaline Cast (Auto) 1-5 /lpf (0-5) 05/14/23 20:37 U Epithel Cells (Auto) 0-5 /lpf (0-5) 05/14/23 20:37 Urine Bacteria (Auto) Negative (Negative) 05/14/23 20:37 Calcium Oxalate Crystal Present (None Prsent) A 05/14/23 20:37 Urine Yeast Present (None Prsent) A 05/14/23 20:37 Adenovirus (PCR) Not Detected (NotDetected) 05/15/23 00:00 B. pertussis DNA (PCR) Not Detected (NotDetected) 05/15/23 00:00 B.parapertussis DNA PCR Not Detected (NotDetected) 05/15/23 00:00 C. pneumoniae DNA (PCR) Not Detected (NotDetected) 05/15/23 00:00 Coronavirus OC43 (PCR) Not Detected (NotDetected) 05/15/23 00:00 Coronavirus HKU1 (PCR) Not Detected (NotDetected) 05/15/23 00:00 Coronavirus 229E (PCR) Not Detected (NotDetected) 05/15/23 00:00 SARS-CoV-2 (PCR) Not Detected (NotDetected) 05/15/23 00:00 Coronavirus NL63 (PCR) Not Detected (NotDetected) 05/15/23 00:00 Human Metapneumovir PCR Not Detected (NotDetected) 05/15/23 00:00 Influenza Type A (PCR) Not Detected (NotDetected) 05/15/23 00:00 Influenza Type B (PCR) Not Detected (NotDetected) 05/15/23 00:00 M. pneumoniae (PCR) Not Detected (NotDetected) 05/15/23 00:00 Parainfluenza 1 (PCR) Not Detected (NotDetected) 05/15/23 00:00 Parainfluenza 2 (PCR) Not Detected (NotDetected) 05/15/23 00:00 Parainfluenza 3 (PCR) Not Detected (NotDetected) 05/15/23 00:00 Parainfluenza 4 (PCR) Not Detected (NotDetected) 05/15/23 00:00 RSV (PCR) Not Detected (NotDetected) 05/15/23 00:00 Entero/Rhino (PCR) DETECTED (NotDetected) A* 05/15/23 00:00 Impressions Abdomen/Pelvis CT 05/14/23 20:02 CT SCAN OF THE ABDOMEN AND PELVIS WITH IV CONTRAST CLINICAL HISTORY: Generalized abdominal pain. COMPARISON STUDY: No priors. TECHNIQUE: Following the IV administration of 91 cc of Optiray 320, CT scan of the abdomen and pelvis is performed from the lung bases to the proximal femora. Images are reviewed in the axial, sagittal, and coronal planes. IV contrast was administered without complication. A dose lowering technique was utilized adhering to the principles of ALARA. CT DOSE: 2909.35 mGy.cm FINDINGS: Lung bases: The heart is normal in size and without pericardial effusion. Peribronchial thickening is seen in the lower lobes with residual minimal secretions/debris. Bibasilar airspace opacities could represent scar/atelectasis versus mild pneumonitis. No pleural effusion is seen. Liver: The contrast-enhanced liver is normal in size, contour, and attenuation. There is mild central intrahepatic biliary ductal dilatation. The hepatic veins and portal veins are patent. Gallbladder: Surgically absent noting clips in the gallbladder fossa. Spleen: Normal in size and attenuation. Pancreas: Unremarkable. Adrenal glands: Unremarkable. Kidneys: The contrast enhanced kidneys are normal in size and without hydronephrosis. The kidneys enhance symmetrically. There are at least 3 nonobstructing left renal calculi which measure up to 10 mm. A punctate calculus is suggested in the right lower pole. No ureteral stone is seen. Abdominal vasculature: The abdominal aorta is normal in course and caliber. Bowel: There is mild to moderate colonic fecal retention. No bowel obstruction is seen. The appendix is not visualized. Peritoneum: There is no intraperitoneal free air or abdominal ascites. There is a small fat-containing umbilical hernia. Lymphadenopathy: None. Pelvic viscera: The bladder is decompressed around a suprapubic catheter. The wall appears diffusely thickened and there are foci of intraluminal gas. The prostate and seminal vesicles are normal as visualized. Skeletal structures: The skeletal structures are osteopenic. No lytic or blastic lesions are seen. The lower sacrum and coccyx have been resected. There is a large decubitus ulceration overlying the sacrum. This reaches the sacral cortex, and there is underlying sclerotic change. No bony erosion is clearly identified. IMPRESSION: 1. Dependent opacities are present both lung bases, left greater then right as detailed above. This could represent scarring/atelectasis versus a mild pneumonitis. Clinical correlation will be required. Radiographic follow-up to resolution is recommended. 2. The bladder is decompressed around a suprapubic catheter and appears diffusely thick-walled. Correlate with clinical findings and urinalysis for evidence of cystitis. 3. Bilateral nephrolithiasis. No ureteral stone is seen. 4. Large sacral decubitus ulceration, which extends to the underlying sacrum. There is sclerotic change in the underlying bone which may represent chronic osteomyelitis. No erosive change is identified. Correlate clinically. 5. Additional findings as above. ACT 112: Negative or not required by law. Electronically signed by: Ramo Green M.D. 05/14/2023 10:[address] 05/14/23 20:02 CT SCAN OF THE CHEST WITH IV CONTRAST CLINICAL HISTORY: Dyspnea. COMPARISON STUDY: No priors. TECHNIQUE: Following the IV administration of 91 cc of Optiray 320, CT scan of the thorax was performed from the thoracic inlet to the upper abdomen. Images are reviewed in the axial, sagittal, and coronal planes. IV contrast was administered without complication. A dose lowering technique was utilized adhering to the principles of ALARA. The examination is degraded by motion artifact, as well as by streak artifact from the arms which could not be elevated above the chest. FINDINGS: Thyroid: Imaged portions of the thyroid gland are normal in size and attenuation. Thoracic aorta: The thoracic aorta is normal in caliber and demonstrates 4- vessel variant arch anatomy. No dissection is seen. Pulmonary vasculature: The pulmonary trunk is normal in caliber. There are no filling defects identified in the central pulmonary vessels to indicate pulmonary embolus. Note that this examination was not protocoled for evaluation of the pulmonary arteries. Heart: The heart is top normal in size and without pericardial effusion. Lungs and pleural spaces: Evaluation of the lung parenchyma is mostly degraded by motion artifact. There are patchy foci of subpleural airspace consolidation in the upper lobes. Peribronchial thickening is seen in the lower lobes with mucous plugging/intraluminal debris. There are dependent airspace opacities, left greater than right. No pleural effusion is identified. The trachea appears clear. Debris is seen within the mainstem bronchi. Mediastinum: There is no mediastinal lymphadenopathy. Aliya: Clear. Axillae: There is no axillary lymphadenopathy. Upper abdomen: Partially visualized upper abdominal viscera is within normal limits. Skeletal structures: The skeletal structures are osteopenic. No lytic or blastic bony lesions are seen. Fusion hardware is noted at the cervicothoracic junction. Mild hyperkyphosis is noted in the thoracic spine. IMPRESSION: 1. There are patchy foci of subpleural airspace consolidation in the upper lobes, typical for an infectious/inflammatory pneumonitis. 2. Additionally, there is diffuse peribronchial thickening with debris/mucus plugging mainstem bronchi as well as the lower lobe airways. There are dependent airspace opacities at both lung bases, left greater than right. This comparison scarring/atelectasis versus pneumonia/aspiration pneumonitis. Clinical correlation of these findings will be required and radiographic follow-up to resolution is recommended. A 3-4 month follow-up chest CT is also recommended to document complete resolution and reevaluate the underlying lung parenchyma. 3. There is no pleural effusion. 4. Additional findings as above. ACT 112: Negative or not required by law. Electronically signed by: Ramo Green M.D. 05/14/2023 11:17 PM
[2023-05-15] MEDS ORDERED: APIXABAN 5 MG TABLET PO STA (01:41)
[2023-05-15 01:46] LABS: Thyroid Stimulating Hormone 2.035 uIu/ml (0.300-4.500)
[2023-05-15] MEDS ORDERED: PROMETHAZINE HCL 12.5 MG in SODIUM CHLORIDE 0.9% 50 ML IV PRN (01:52)
[2023-05-15] MEDS: GABAPENTIN 100 MG CAP PO SCH ×4 (04:11→21:21)
[2023-05-15] MEDS: BACLOFEN 20 MG TAB PO SCH ×4 (04:11→21:24)
[2023-05-15 04:42] LABS: Amphetamines+Metham, Urine Neg (Neg); Barbiturates, Urine Neg (Neg); Benzodiazepine, Urine Neg (Neg); Cocaine, Urine Neg (Neg); MDMA (Ecstacy), Urine Neg (Neg); Methadone, Urine Neg (Neg); Opiate, Urine Neg (Neg); Phencyclidine, Urine Neg (Neg)
[2023-05-15] MEDS: ACETAMINOPHEN 325 MG TAB PO PRN (04:44)
[2023-05-15] MEDS: oxyCODONE HCL IR 5 MG TAB (IMMEDIATE RELEASE) PO PRN ×5 (04:44→21:56)
[2023-05-15] MEDS: ALBUT/IPRATROP 3MG/0.5MG NEB 3 ML VIAL NEB SCH ×4 (07:40→20:22)
[2023-05-15] MEDS: APIXABAN 5 MG TABLET PO SCH ×2 (08:49→21:25)
[2023-05-15] MEDS ORDERED: SOLIFENACIN 10 MG PO SCH (09:00)
[2023-05-15] MEDS: MULTIVITAMIN TAB PO SCH (10:06)
[2023-05-15] MEDS: FAMOTIDINE 20 MG TAB PO SCH ×2 (10:06→21:22)
[2023-05-15] MEDS: OXYBUTYNIN CHLORIDE XL 5 MG TABCR PO SCH (10:06)
[2023-05-15] MEDS: FERROUS SULFATE 325 MG TAB PO SCH (10:06)
[2023-05-15] MEDS: MIDODRINE HCL 2.5 MG TAB PO SCH ×3 (10:06→18:24)
[2023-05-15] MEDS: DULoxetine HCL 60 MG CAP PO SCH (10:06)
[2023-05-15] MEDS: FLUTICASONE FUROATE 200MCG 14 PUFFS/INHALER INH SCH (10:07)
[2023-05-15] MEDS: PANTOprazole 40 MG TAB PO SCH (10:07)
[2023-05-15] MEDS: POLYETHYLENE (MIRALAX) 17 GM PACK PO SCH ×2 (10:07→21:55)
[2023-05-15] MEDS: VIBEGRON 75 MG TAB PO SCH (10:07)
[2023-05-15] MEDS: MEROPENEM 500 MG in SYRINGE 0 ML IV SCH ×2 (11:01→18:21)
[2023-05-15] MEDS: LIDOCAINE 5% 1 PATCH TD SCH (12:52)
[2023-05-15] MEDS: LORazepam 0.5 MG TAB PO PRN ×2 (15:01→21:57)
[2023-05-15] MEDS: methylPREDNISolone 40 MG in SYRINGE 0 ML IV SCH ×2 (18:22→23:54)
[2023-05-15] MEDS: guaiFENesin 600 MG TABCR PO SCH (18:23)
[2023-05-15] MEDS: ACETYLCYSTEINE 10% INHAL SOLN 4 ML **DISPENSED BY RESP. INH SCH (20:36)
[2023-05-15] MEDS: MELATONIN 3 MG TAB PO SCH (21:26)
[2023-05-15] MEDS: DOCUSATE SODIUM/SENNA 50/8.6MG TAB PO SCH (21:27)
[2023-05-15] MEDS: traZODone HCL 50 MG TAB PO SCH (21:28)
[2023-05-15] MEDS ORDERED: IBUPROFEN 200 MG TAB PO STA (21:28)
[2023-05-16] MEDS: MEROPENEM 500 MG in SYRINGE 0 ML IV SCH ×2 (02:12→12:16)
[2023-05-16] MEDS: LORazepam 0.5 MG TAB PO PRN ×2 (02:13→17:32)
[2023-05-16] MEDS: oxyCODONE HCL IR 5 MG TAB (IMMEDIATE RELEASE) PO PRN ×5 (02:13→23:36)
[2023-05-16] MEDS: bisacodyL 10 MG SUPP PR PRN (07:07)
[2023-05-16] MEDS: ACETYLCYSTEINE 10% INHAL SOLN 4 ML **DISPENSED BY RESP. INH SCH ×2 (08:03→20:21)
[2023-05-16] MEDS: ALBUT/IPRATROP 3MG/0.5MG NEB 3 ML VIAL NEB SCH ×4 (08:04→20:21)
[2023-05-16] MEDS ORDERED: FLUCONAZOLE 100 MG TAB PO SCH (09:00)
[2023-05-16] MEDS ORDERED: predniSONE 20 MG TAB PO SCH (09:00)
[2023-05-16] MEDS: POLYETHYLENE (MIRALAX) 17 GM PACK PO SCH ×2 (09:16→21:03)
[2023-05-16] MEDS: BACLOFEN 20 MG TAB PO SCH ×3 (09:16→21:01)
[2023-05-16] MEDS: FERROUS SULFATE 325 MG TAB PO SCH (09:17)
[2023-05-16] MEDS: MIDODRINE HCL 2.5 MG TAB PO SCH ×3 (09:17→17:36)
[2023-05-16] MEDS: DULoxetine HCL 60 MG CAP PO SCH (09:17)
[2023-05-16] MEDS: PANTOprazole 40 MG TAB PO SCH (09:17)
[2023-05-16] MEDS: APIXABAN 5 MG TABLET PO SCH ×2 (09:17→21:01)
[2023-05-16] MEDS: MULTIVITAMIN TAB PO SCH (09:17)
[2023-05-16] MEDS: methylPREDNISolone 40 MG in SYRINGE 0 ML IV SCH ×3 (09:18→23:37)
[2023-05-16] MEDS: VIBEGRON 75 MG TAB PO SCH (09:18)
[2023-05-16] MEDS: GABAPENTIN 100 MG CAP PO SCH ×3 (09:18→21:03)
[2023-05-16] MEDS: guaiFENesin 600 MG TABCR PO SCH ×2 (09:18→21:03)
[2023-05-16] MEDS: FAMOTIDINE 20 MG TAB PO SCH ×2 (09:18→21:02)
[2023-05-16] MEDS: FLUTICASONE FUROATE 200MCG 14 PUFFS/INHALER INH SCH (09:18)
[2023-05-16] MEDS: OXYBUTYNIN CHLORIDE XL 5 MG TABCR PO SCH (09:18)
[2023-05-16] MEDS: LIDOCAINE 5% 1 PATCH TD SCH (09:19)
--- NOTE | 2023-05-16 11:50 | Hospitalist Progress Note ---
Date of Service May 16, 2023 Assessment & Plan (1) COPD exacerbation: (2) Pneumonitis: (3) Complicated UTI (urinary tract infection): (4) Decubitus ulcer of sacral area: Plan: Per admitting service notes with addendum: ACUTE HYPOXIC RESPIRATORY FAILURE SECONDARY TO COPD EXACERBATION PNEUMONIA Sputum culture: Pending Blood culture: Pending Required 2 L of oxygen by nasal cannula, currently on room air Continue Solu-Medrol 40 mg every 8 hours Nebs 4 times daily Spirometry, flutter valve, CoughAssist device (patient uses at baseline at home), added Chest physiotherapy as well We will order speech therapy evaluation for possible component of aspiration pneumonia given paraplegia COMPLICATED UTI, PYURIA AND FUNGURIA HX RECURRENT INFECTIONS SECONDARY TO NEUROGENIC BLADDER WITH CHRONIC INDWELLING SUPRAPUBIC CATHETER (Enterococcus; Pseudomonas with intermediate resistance to cefepime, ceftazidime, quinolones and Zosyn on prior CS) Urine culture: Stenotrophomonas Continue meropenem IV day #2 Continue fluconazole day #2 next Infect disease service consulted CHRONIC SACRAL DECUBITUS ULCER CT showing possible chronic osteomyelitis ID service consulted Other chronic issues: chronic diastolic heart failure (EF 60%, TTE 2021)- 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) --Has chronic generalized pain, requesting to increase oxycodone to 15 mg every 4 hours, discussed with patient, will try every 6 hours for now and monitor response Patient verbalized understanding and agreement recurrent UTI secondary to neurogenic bladder with chronic indwelling suprapubic catheter, poor compliance with suprapubic catheter care and outpatient urology visits as per specialist documentation hypotension on midodrine HCV status post Rx chronic anemia, hemoglobin at baseline chronic sacral decubitus/leg osteomyelitis, not worsening as per patient chronic pain on narcotics anxiety/mood disorder, at baseline hx substance abuse as per records Possible functional disability ongoing tobacco abuse History of MRSA DVT prophylaxis. Eliquis Full code Disposition Lives at home, care provided by patient's sister plan of care discussed with patient in detail and at length all questions answered he is understanding, agreeable, comfortable with the plan of care Admission and Anticipated Discharge Date Admission Date: May 15, 2023 Results & Data Results & Data Vital Signs (Past 12 Hours) Vital Signs Temp Pulse Pulse Resp BP Pulse Ox O2 Del Method 05/16/23 11:26 55 L 18 94 Room Air 05/16/23 08:04 87 18 93 Room Air 05/16/23 08:00 36.5 C 87 16 108/70 92 Room Air 05/16/23 07:31 73 05/16/23 04:08 87 05/16/23 02:23 36.8 C 78 18 117/71 93 Room Air
--- NOTE | 2023-05-16 13:43 | Infectious Disease Consult ---
Date of Service May 16, 2023 Telehealth Information I performed this visit using a real-time telehealth connection between my location and the patients location ([facility]). After connecting through interactive tele-video, patient was identified by name and date of and/or wristband check.Patient (or authorized healthcare construction sales representative) was informed that this was a telemedicine visit and it was being conducted confidentially over secure lines. My office door was closed and no o ne else was present in the room with me.Patient (or authorized healthcare construction sales representative) provided consent to proceed with the visit, expressed an understanding of privacy and security of the telemedicine visit, and gave permission to have a hospital construction sales representative in the room in order to assist with the visit and to conduct portions of the visit, as needed. I informed the patient (or authorized healthcare construction sales representative) that I reviewed their record and presented the opportunity for them to ask any questions regarding the visit today. The patient agreed to participate. Assessment & Plan (1) COPD exacerbation: (2) Decubitus ulcer of sacral area: (3) Pneumonitis: (4) Complicated UTI (urinary tract infection): Plan Concern for Aspiration PNA based on presentation Concern for UTI - Recommend stopping Meropenem IV. Recommend starting Levaquin 750 mg PO daily for 10 days total. Recommend starting Augmentin 875 mg PO BID for 5 additional days. - we will sign off, no need for ID clinic appointment, please feel free to call with issues or concerns, we will not chronically monitor this patient. Bishnu Kilgore D.O. 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 Per notes and chart review, pt was last admitted to [facility] April 22 to 2022 for chronic sacral and LE osteomyelitis and diagnosed with Pseudomonas and Enterobacter UTI. Patient discharged on 10-day course of Cipro Rx as per ID recommendations. Patient later developed flank pain followed by admission at [facility]. CT imaging showed nonobstructing left intrarenal calculi of unclear size and proctitis as per report.UA grew Georgina albicans. Patient discharged on antibiotic medications. Patient returned to [facility] ER last May 04, 2023 for persistent flank pain complaints attributed to UTI. CT abdomen pelvis results as follows: 1. Nonobstructing bilateral renal calculi greater on the left. 2. Stable suprapubic catheter with diffuse wall thickening and non dependent air within the bladder secondary to catheterization. 3. Sacral decubitus ulcer with associated osteomyelitis of the sacrum. Patient discharged on Cefdinir course. No growth on final urine CS. Patient noted worsening achy flank pain complaints in the last week. Patient [place] [facility] [place] Pt main complaints were junky cough symptoms with shortness of breath. Admits to coughing with meals/water intake if not careful. Some chest pain from coughing.No headache symptoms. No hematuria. UA checked and consistent with UTI. Urine culture (+) Stenotrophomonas ID consulted for evaluation and management. Today, pt says the abd/pain that he currently has is consistent with UTI. Pt also has symptoms of aspiration. Allergies Allergy/AdvReac Type Severity Reaction Status Date / Time No Known Allergies Allergy Verified 05/14/23 20:08 Home Medications Medication Instructions Recorded Confirmed Type Naloxone Hcl 4 Mg/0.1ml Liquid See Rx Instructions .Route .COMPLEX 05/15/23 05/15/23 History acetaminophen 500 mg tablet 500 mg PO .Q 4 HRS WHILE AWAKE 05/15/23 05/15/23 History apixaban 5 mg tablet 5 mg PO AMHS 05/15/23 05/15/23 History ascorbic acid (vitamin C) 500 mg 500 mg PO QAM 05/15/23 05/15/23 History tablet (Vitamin C) baclofen 10 mg tablet 20 mg PO TID 05/15/23 05/15/23 History bisacodyl 10 mg rectal suppository 10 mg TX AMPM 05/15/23 05/15/23 History celecoxib 200 mg capsule 200 mg PO AMHS 05/15/23 05/15/23 History ciprofloxacin HCl 500 mg tablet 500 mg PO AMHS 05/15/23 05/15/23 History collagenase clostridium histo. 250 1 applic topical DAILY 05/15/23 05/15/23 History unit/gram topical ointment (Santyl) diclofenac sodium 1 % topical gel 2 g topical QID 05/15/23 05/15/23 History duloxetine 60 mg capsule,delayed 60 mg PO QAM 05/15/23 05/15/23 History release famotidine 20 mg tablet 20 mg PO AMHS 05/15/23 05/15/23 History ferrous sulfate 325 mg (65 mg 325 mg PO QDB 05/15/23 05/15/23 History iron) tablet fluticasone propionate 100 1 inh inhalation AMHS 05/15/23 05/15/23 History mcg/actuation blister powder for inhalation gabapentin 100 mg capsule 200 mg PO TID 05/15/23 05/15/23 History hydroxyzine HCl 25 mg tablet 25 mg PO QAM 05/15/23 05/15/23 History lactulose 20 gram/30 mL oral 20 g PO TID 05/15/23 05/15/23 History solution lidocaine 5 % topical patch 1 patch topical DAILY 05/15/23 05/15/23 History lidocaine HCl 2 % mucosal solution 5 ml PO ACHS PRN as directed 05/15/23 05/15/23 History (Lidocaine Viscous) melatonin 3 mg tablet 3 mg PO HS 05/15/23 05/15/23 History midodrine 10 mg tablet 5 mg PO TID 05/15/23 05/15/23 History mirabegron 50 mg tablet,extended 50 mg PO QAM 05/15/23 05/15/23 History release 24 hr (Myrbetriq) multivitamin 1 tab PO DAILY 05/15/23 05/15/23 History oxybutynin chloride 10 mg 10 mg PO QAM 05/15/23 05/15/23 History tablet,extended release 24 hr oxycodone 15 mg tablet (Roxicodone) 15 mg PO Q4H PRN pain severe 05/15/23 05/15/23 History pantoprazole 40 mg tablet,delayed 40 mg PO QAM 05/15/23 05/15/23 History release polyethylene glycol 3350 17 gram 17 g PO AMHS 05/15/23 05/15/23 History oral powder packet (Miralax) potassium chloride 20 mEq 20 meq PO AMHS 05/15/23 05/15/23 History tablet,extended release(part/cryst) sennosides 8.6 mg-docusate sodium 2 tab-cap PO HS 05/15/23 05/15/23 History 50 mg tablet solifenacin 10 mg tablet 10 mg PO QAM 05/15/23 05/15/23 History trazodone 50 mg tablet 50 mg PO HS 05/15/23 05/15/23 History umeclidinium 62.5 mcg-vilanterol 1 inh inhalation QAM 05/15/23 05/15/23 History 25 mcg/actuation powdr for inhalation (Anoro Ellipta) Patient History Social History Smoking Status: Heavy tobacco smoker Tobacco Type: Cigarettes Cigarettes Per Day: 40; Second Hand Exposure: Yes; Do You Dip or Chew Tobacco: No; Tobacco Cessation Education Requested by Patient: No Hx Alcohol Use: No Hx Substance Use: Yes Last Used Substance: Unknown Preferred Language: Irish Communication Ability: Effective Heel Sewer Required: No Beliefs That Will Affect Care: None Current Living Situation: Alone and Family Other Information That Helps Us Care for You: No Feels Safe at Home: Yes Safety Concerns: Feels Safe At This Time Assistive Devices: Wheelchair Review of Systems pt having severe abd pain Otherwise all other ROS negative, reviewed them all Physical Exam Telemedicine. Gen: Chronically ill HEENT: NAD Lungs: LTAB Cards: RRR no murmurs or rubs Results & Data Vital Signs (Past 12 Hours) Vital Signs Temp Pulse Pulse Resp BP Pulse Ox O2 Del Method 05/16/23 11:48 36.3 C L 57 L 16 129/80 91 Room Air 05/16/23 09:15 Room Air 05/16/23 11:26 55 L 18 94 Room Air 05/16/23 08:04 87 18 93 Room Air 05/16/23 08:00 36.5 C 87 16 108/70 92 Room Air 05/16/23 07:31 73 05/16/23 04:08 87 05/16/23 02:23 36.8 C 78 18 117/71 93 Room Air Laboratory Results Urine culture on 05/14/2023 Urine Culture Final 05/16/23-1213 Organism 1 Stenotrophomonas maltophilia [place] Count >100,000 CFU/ml Sens Sensitivities to Follow Steno malt RX M.I.C. --- --------- Levofloxacin S 2 Trimeth/Sulfa S <=2/38 S = SENSITIVE I = INTERMEDIATE R = RESISTANT Blood culture on 05/14/[address] chest on 05/14/2023 IMPRESSION: 1. There are patchy foci of subpleural airspace consolidation in the upper lobes, typical for an infectious/inflammatory pneumonitis. 2. Additionally, there is diffuse peribronchial thickening with debris/mucus plugging mainstem bronchi as well as the lower lobe airways. There are dependent airspace opacities at both lung bases, left greater than right. This comparison scarring/atelectasis versus pneumonia/aspiration pneumonitis. Clinical correlation of these findings will be required and radiographic follow-up to resolution is recommended. A 3-4 month follow-up chest CT is also recommended to document complete resolution and reevaluate the underlying lung parenchyma. 3. There is no pleural effusion. CT abd/pelvis on 05/14/2023 IMPRESSION: 1. Dependent opacities are present both lung bases, left greater then right as detailed above. This could represent scarring/atelectasis versus a mild pneumonitis. Clinical correlation will be required. Radiographic follow-up to resolution is recommended. 2. The bladder is decompressed around a suprapubic catheter and appears diffusely thick-walled. Correlate with clinical findings and urinalysis for evidence of cystitis. 3. Bilateral nephrolithiasis. No ureteral stone is seen. 4. Large sacral decubitus ulceration, which extends to the underlying sacrum. There is sclerotic change in the underlying bone which may represent chronic osteomyelitis. No erosive change is identified. Correlate clinically. Medications Administered Pt is currently on Meropenem IV
--- NOTE | 2023-05-16 15:51 | Electrocardiogram Report ---
Test Reason : Blood Pressure : / mmHG Vent. Rate : 069 BPM Atrial Rate : 069 BPM P-R Int : 178 ms QRS Dur : 082 ms QT Int : 420 ms P-R-T Axes : 028 022 017 degrees QTc Int : 450 ms Normal sinus rhythm Normal ECG No previous ECGs available Confirmed by Toi Wright ([id number]) on 05/16/2023 3:51:11 PM Referred By: REFERRED SELF Confirmed By:Toi Wright
[2023-05-16] MEDS: levoFLOXacin 750 MG TAB PO SCH (17:32)
[2023-05-16] MEDS: AMOXICILLIN/CLAVULANATE 875 MG TAB PO SCH (21:01)
[2023-05-16] MEDS: traZODone HCL 50 MG TAB PO SCH (21:04)
[2023-05-16] MEDS: DOCUSATE SODIUM/SENNA 50/8.6MG TAB PO SCH (21:07)
[2023-05-16] MEDS: MELATONIN 3 MG TAB PO SCH (21:07)
[2023-05-17] MEDS: oxyCODONE HCL IR 5 MG TAB (IMMEDIATE RELEASE) PO PRN ×3 (05:52→18:07)
[2023-05-17] MEDS: ALBUT/IPRATROP 3MG/0.5MG NEB 3 ML VIAL NEB SCH ×4 (07:30→19:46)
[2023-05-17] MEDS: ACETYLCYSTEINE 10% INHAL SOLN 4 ML **DISPENSED BY RESP. INH SCH ×2 (07:30→19:46)
[2023-05-17 07:38] LABS: Creatinine Clr Calc Pharmacy 211.9 ml/min; Est GFR (African American) > 150.0 ml/min; Est GFR (Non-African American) 132.2 ml/min
[2023-05-17] MEDS: methylPREDNISolone 40 MG in SYRINGE 0 ML IV SCH ×3 (09:37→21:00)
[2023-05-17] MEDS: levoFLOXacin 750 MG TAB PO SCH (09:37)
[2023-05-17] MEDS: MIDODRINE HCL 2.5 MG TAB PO SCH ×3 (09:38→17:38)
[2023-05-17] MEDS: OXYBUTYNIN CHLORIDE XL 5 MG TABCR PO SCH (09:38)
[2023-05-17] MEDS: guaiFENesin 600 MG TABCR PO SCH ×2 (09:38→21:01)
[2023-05-17] MEDS: FERROUS SULFATE 325 MG TAB PO SCH (09:38)
[2023-05-17] MEDS: PANTOprazole 40 MG TAB PO SCH (09:38)
[2023-05-17] MEDS: GABAPENTIN 100 MG CAP PO SCH ×3 (09:38→21:01)
[2023-05-17] MEDS: MULTIVITAMIN TAB PO SCH (09:38)
[2023-05-17] MEDS: DULoxetine HCL 60 MG CAP PO SCH (09:38)
[2023-05-17] MEDS: VIBEGRON 75 MG TAB PO SCH (09:38)
[2023-05-17] MEDS: AMOXICILLIN/CLAVULANATE 875 MG TAB PO SCH ×2 (09:39→21:01)
[2023-05-17] MEDS: POLYETHYLENE (MIRALAX) 17 GM PACK PO SCH ×2 (09:39→20:55)
[2023-05-17] MEDS: FAMOTIDINE 20 MG TAB PO SCH ×2 (09:39→21:01)
[2023-05-17] MEDS: LIDOCAINE 5% 1 PATCH TD SCH (09:39)
[2023-05-17] MEDS: APIXABAN 5 MG TABLET PO SCH ×2 (09:39→21:01)
[2023-05-17] MEDS: BACLOFEN 20 MG TAB PO SCH ×3 (09:39→21:01)
[2023-05-17] MEDS: FLUTICASONE FUROATE 200MCG 14 PUFFS/INHALER INH SCH (09:39)
--- NOTE | 2023-05-17 12:20 | XRay Report ---
XR chest 1V portable HISTORY: ff up possible aspiration COMPARISON: Chest CT 05/14/2023. FINDINGS: The biapical peripheral groundglass airspace opacity seen on the recent chest CT are not we ll visualized on this modality. No pneumothorax. No pleural effusions. The heart remains mildly enlar ged. No evidence for pulmonary edema. There are few left basilar linear densities, unchanged. Cervica l spinal fusion hardware is again noted. IMPRESSION: 1. Biapical groundglass airspace opacities seen on the recent chest CT are not well evaluated by this modality. 2. No change in the left basilar linear densities. This could represent atelectasis or a low-grade pn eumonitis. 3. Stable mild cardiomegaly. ACT 112: Negative or not required by law. Electronically signed by: Zeeshan Mejia M.D. 05/17/2023 12:19 PM
--- NOTE | 2023-05-17 17:07 | Hospitalist Progress Note ---
Date of Service May 17, 2023 Assessment & Plan (1) COPD exacerbation: (2) Pneumonitis: (3) Complicated UTI (urinary tract infection): (4) Decubitus ulcer of sacral area: Plan: Per admitting service notes with addendum: ACUTE HYPOXIC RESPIRATORY FAILURE SECONDARY TO COPD EXACERBATION PNEUMONIA Sputum culture: Unable to be collected Blood culture: Negative Required 2 L of oxygen by nasal cannula, wean to off, currently on room air Given Solu-Medrol 40 mg every 8 hours--> taper off to every 12, then prednisone 40 mg daily, then taper slowly Nebs 4 times daily, will need a nebulizer machine at home Spirometry, flutter valve, CoughAssist device (patient uses at baseline at home), added Chest physiotherapy as well Recommending Levaquin 10-day course and Augmentin 5-day course Speech therapy recommendations: Regular diet, aspiration precautions COMPLICATED UTI HX RECURRENT INFECTIONS SECONDARY TO NEUROGENIC BLADDER WITH CHRONIC INDWELLING SUPRAPUBIC CATHETER (Enterococcus; Pseudomonas with intermediate resistance to cefepime, ceftazidime, quinolones and Zosyn on prior CS) Urine culture: Stenotrophomonas Given meropenem and fluconazole x2 days ID consulted Recommend Levaquin to complete 10-day course CHRONIC SACRAL DECUBITUS ULCER CT showing possible chronic osteomyelitis No signs of active infection of the ulcer site on exam ID service consulted-treatment not indicated due to chronic nature Other chronic issues: chronic diastolic heart failure (EF 60%, TTE 2021)- 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) --Has chronic generalized pain, requesting to increase oxycodone to 15 mg every 4 hours, discussed with patient, will try every 6 hours for now and monitor response Patient verbalized understanding and agreement recurrent UTI secondary to neurogenic bladder with chronic indwelling suprapubic catheter, poor compliance with suprapubic catheter care and outpatient urology visits as per specialist documentation hypotension on midodrine HCV status post Rx chronic anemia, hemoglobin at baseline chronic sacral decubitus/leg osteomyelitis, not worsening as per patient chronic pain on narcotics anxiety/mood disorder, at baseline hx substance abuse as per records Possible functional disability ongoing tobacco abuse History of MRSA DVT prophylaxis. Eliquis Full code Disposition Lives at home, care provided by patient's sister Anticipate discharge home medically stable Patient requesting to establish with [facility] primary care physician Patient also requesting to establish with [facility] wound care center plan of care discussed with patient in detail and at length all questions answered he is understanding, agreeable, comfortable with the plan of care Admission and Anticipated Discharge Date Admission Date: May 15, 2023 Subjective Follow-up for pneumonia, UTI, etc. Seen resting in bed, comfortable, not in distress States he feels improved compared to yesterday Breathing is improving, still having difficulty expectorating mucus Has mild bladder discomfort No back pain No other new symptoms Review of Systems Review of Systems: all noted and negative except for above Physical Exam Physical Exam: General- oriented x 3, not in distress, speaks in sentences with no effort or accessory muscle use Eyes- anicteric Neck- no JVD Lungs-positive crackles bilaterally, no wheezing Heart- normal rate, regular rhythm; no murmurs Abdomen- normal bowel sounds, nondistended, soft, nontender Extremities- no pretibial edema, no calf tenderness Back-deep ulcer noted at the sacral area, no signs of infection: No drainage, bleeding, surrounding erythema or tenderness Small linear wounds bilateral lower legs: Slightly open but no signs of infection, no bleeding or discharge Neuro- alert, oriented x 3; no new gross focal neurologic deficits Skin- warm & dry Results & Data Results & Data Vital Signs (Past 12 Hours) Vital Signs Temp Pulse Pulse Resp BP Pulse Ox O2 Del Method 05/17/23 15:22 67 05/17/23 15:08 16 94 Room Air 05/17/23 14:58 36.8 C 72 18 153/95 H 91 Room Air 05/17/23 09:45 Room Air 05/17/23 12:47 36.5 C 66 18 130/80 97 Room Air 05/17/23 07:58 36.5 C 82 18 114/73 92 Room Air 05/17/23 07:30 55 L 18 95 Room Air 05/17/23 07:28 69 all noted and reviewed including below
[2023-05-17] MEDS: DOCUSATE SODIUM/SENNA 50/8.6MG TAB PO SCH (21:00)
[2023-05-17] MEDS: traZODone HCL 50 MG TAB PO SCH (21:01)
[2023-05-17] MEDS: MELATONIN 3 MG TAB PO SCH (21:01)
[2023-05-18] MEDS: oxyCODONE HCL IR 5 MG TAB (IMMEDIATE RELEASE) PO PRN ×3 (03:14→19:54)
[2023-05-18 05:57] LABS: Marijuana Quant, GCMS Urine 1098 ng/mL (<5)
[2023-05-18] MEDS: ALBUT/IPRATROP 3MG/0.5MG NEB 3 ML VIAL NEB SCH ×4 (07:16→19:31)
[2023-05-18] MEDS: ACETYLCYSTEINE 10% INHAL SOLN 4 ML **DISPENSED BY RESP. INH SCH ×3 (07:16→19:31)
[2023-05-18 08:00] LABS: Creatinine Clr Calc Pharmacy 235.1 ml/min; Est GFR (African American) > 150.0 ml/min; Est GFR (Non-African American) 135.7 ml/min
[2023-05-18] MEDS: DULoxetine HCL 60 MG CAP PO SCH (08:10)
[2023-05-18] MEDS: MIDODRINE HCL 2.5 MG TAB PO SCH ×3 (08:10→17:52)
[2023-05-18] MEDS: levoFLOXacin 750 MG TAB PO SCH (08:10)
[2023-05-18] MEDS: FERROUS SULFATE 325 MG TAB PO SCH (08:11)
[2023-05-18] MEDS: PANTOprazole 40 MG TAB PO SCH (08:11)
[2023-05-18] MEDS: MULTIVITAMIN TAB PO SCH (08:11)
[2023-05-18] MEDS: OXYBUTYNIN CHLORIDE XL 5 MG TABCR PO SCH (08:11)
[2023-05-18] MEDS: VIBEGRON 75 MG TAB PO SCH (08:11)
[2023-05-18] MEDS: FAMOTIDINE 20 MG TAB PO SCH ×2 (08:11→21:09)
[2023-05-18] MEDS: guaiFENesin 600 MG TABCR PO SCH ×2 (08:12→21:10)
[2023-05-18] MEDS: GABAPENTIN 100 MG CAP PO SCH ×3 (08:12→21:09)
[2023-05-18] MEDS: BACLOFEN 20 MG TAB PO SCH ×3 (08:12→21:08)
[2023-05-18] MEDS: ADVANCED PROBIOTIC 1250 MG CAPSULE PO SCH (08:13)
[2023-05-18] MEDS: LIDOCAINE 5% 1 PATCH TD SCH (08:13)
[2023-05-18] MEDS: FLUTICASONE FUROATE 200MCG 14 PUFFS/INHALER INH SCH (08:13)
[2023-05-18] MEDS: APIXABAN 5 MG TABLET PO SCH ×2 (08:13→21:07)
[2023-05-18] MEDS: AMOXICILLIN/CLAVULANATE 875 MG TAB PO SCH ×2 (08:13→21:07)
[2023-05-18] MEDS: methylPREDNISolone 40 MG in SYRINGE 0 ML IV SCH ×2 (08:13→21:51)
[2023-05-18] MEDS: POLYETHYLENE (MIRALAX) 17 GM PACK PO SCH ×2 (08:14→21:12)
--- NOTE | 2023-05-18 09:56 | Hospitalist Progress Note ---
Date of Service May 18, 2023 Assessment & Plan (1) COPD exacerbation: (2) Pneumonitis: (3) Complicated UTI (urinary tract infection): (4) Decubitus ulcer of sacral area: Plan: ACUTE HYPOXIC RESPIRATORY FAILURE SECONDARY TO COPD EXACERBATION PNEUMONIA Sputum culture: Unable to be collected Blood culture: Negative Required 2 L of oxygen by nasal cannula, wean to off, currently on room air Given Solu-Medrol 40 mg every 8 hours--> taper off to every 12, then prednisone 40 mg daily, then taper slowly Nebs 4 times daily, will need a nebulizer machine at home Spirometry, flutter valve, CoughAssist device (patient uses at baseline at home), added Chest physiotherapy as well Recommending Levaquin 10-day course and Augmentin 5-day course Speech therapy recommendations: Regular diet, aspiration precautions COMPLICATED UTI HX RECURRENT INFECTIONS SECONDARY TO NEUROGENIC BLADDER WITH CHRONIC INDWELLING SUPRAPUBIC CATHETER (Enterococcus; Pseudomonas with intermediate resistance to cefepime, ceftazidime, quinolones and Zosyn on prior CS) Urine culture: Stenotrophomonas Given meropenem and fluconazole x2 days ID consulted Recommend Levaquin to complete 10-day course CHRONIC SACRAL DECUBITUS ULCER CT showing possible chronic osteomyelitis No signs of active infection of the ulcer site on exam ID service consulted-treatment not indicated due to chronic nature Other chronic issues: chronic diastolic heart failure (EF 60%, TTE 2021)- 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) --Has chronic generalized pain, requesting to increase oxycodone to 15 mg every 4 hours, discussed with patient, will try every 6 hours for now and monitor response Patient verbalized understanding and agreement recurrent UTI secondary to neurogenic bladder with chronic indwelling suprapubic catheter, poor compliance with suprapubic catheter care and outpatient urology visits as per specialist documentation hypotension on midodrine HCV status post Rx chronic anemia, hemoglobin at baseline chronic sacral decubitus/leg osteomyelitis, not worsening as per patient chronic pain on narcotics anxiety/mood disorder, at baseline hx substance abuse as per records Possible functional disability ongoing tobacco abuse History of MRSA DVT prophylaxis. Eliquis Full code Disposition Lives at home, care provided by patient's sister Anticipate discharge home medically stable Patient requesting to establish with [facility] primary care physician Patient also requesting to establish with [facility] wound care center Admission and Anticipated Discharge Date Admission Date: May 15, 2023 Subjective Follow-up for pneumonia, UTI, etc. Seen resting in bed, comfortable, not in distress - currently on breathing treatment States he feels improved Breathing is improving, still having difficulty expectorating mucus Has mild bladder discomfort No back pain No other new symptoms Review of Systems Review of Systems: All systems reviewed & are unremarkable except as noted in Subjective Physical Exam Physical Exam: General- WD/WN M in NAD - currently on breathing treatment Eyes- anicteric Neck- no JVD Lungs- positive mild crackles bilaterally, no wheezing Heart- normal rate, regular rhythm; no murmurs Abdomen- normal bowel sounds, nondistended, soft, nontender Extremities- no pretibial edema, no calf tenderness Back- + deep ulcer at the sacral area, no signs of infection: No drainage, bleeding, surrounding erythema or tenderness Small linear wounds bilateral lower legs: Slightly open but no signs of infection, no bleeding or discharge Neuro- alert, oriented x 3; speech fluent, answers appropriately, not moving LEs (chronic) Skin- warm & dry, multiple tattoos Results & Data Results & Data Vital Signs (Past 12 Hours) Vital Signs Temp Pulse Pulse Resp BP BP Pulse Ox 05/18/23 07:30 36.6 C 71 16 122/69 93 05/18/23 07:18 63 05/17/23 22:01 79 05/18/23 03:07 36.9 C 62 18 144/86 H 94 05/17/23 22:17 36.6 C 74 18 112/63 92 O2 Del Method 05/18/23 07:30 Room Air 05/18/23 07:18 05/17/23 22:01 05/18/23 03:07 Room Air 05/17/23 22:17 Room Air Laboratory Results 05/18/23 05/15/23 Range/Units 06:56 03:52 Creatinine 0.45 L (0.6-1.4) mg/dl Est Cr Clr Drug Dosing 235.1 ml/min Est GFR ( Amer) > 150.0 ml/min Est GFR (Non-Af Amer) 135.7 ml/min U Marijuana THC Carboxy 1098 H (<5) ng/mL Drug Screen Comment SEE NOTE Medications Administered Current Inpatient Medications Acetaminophen (Acetaminophen 325 Mg Tab) 650 mg PO QID PRN PRN Reason: pain/fever Stop: 06/14/23 01:40 Last Admin: 05/15/23 04:44 Dose: 650 mg Acetylcysteine (Acetylcysteine 10% Inhal Soln 4 Ml Dispensed By Resp.) 3 ml INH BIDR [facility] Stop: 06/14/23 18:59 Last Admin: 05/18/23 07:16 Dose: Not Given Albuterol (Albut/Ipratrop 3mg/0.5mg Neb 3 Ml Vial) 3 ml NEB QIDR [facility]; Protocol Stop: 06/14/23 06:59 Last Admin: 05/18/23 07:16 Dose: 3 ml Albuterol (Albut/Ipratrop 3mg/0.5mg Neb 3 Ml Vial) 3 ml NEB Q2H PRN; Protocol PRN Reason: SOB/WHEEZING Stop: 06/14/23 05:07 Amoxicillin/Clavulanate Potassium (Amoxicillin/Clavulanate 875 Mg Tab) 1 tab PO BID [facility] Stop: 05/21/23 09:01 Last Admin: 05/18/23 08:13 Dose: 1 tab Apixaban (Apixaban 5 Mg Tablet) 5 mg PO BID [facility] Stop: 06/14/23 08:59 Last Admin: 05/18/23 08:13 Dose: 5 mg Baclofen (Baclofen 20 Mg Tab) 20 mg PO TID@0730,1200,2100 [facility] Stop: 06/14/23 02:19 Last Admin: 05/18/23 08:12 Dose: 20 mg Bisacodyl (Bisacodyl 10 Mg Supp) 1 mg [place] DAILY PRN PRN Reason: constipation Stop: 06/15/23 01:35 Last Admin: 05/16/23 07:07 Dose: 1 mg Duloxetine HCl (Duloxetine Hcl 60 Mg Cap) 60 mg PO QAM [facility] Stop: 06/14/23 08:59 Last Admin: 05/18/23 08:10 Dose: 60 mg Famotidine (Famotidine 20 Mg Tab) 20 mg PO AMHS [facility] Stop: 06/14/23 08:59 Last Admin: 05/18/23 08:11 Dose: 20 mg Ferrous Sulfate (Ferrous Sulfate 325 Mg Tab) 325 mg PO QDB [facility] Stop: 06/14/23 07:29 Last Admin: 05/18/23 08:11 Dose: 325 mg Fluticasone Furoate (Fluticasone Furoate 200mcg 14 Puffs/Inhaler) 1 puffs INH DAILY [facility] Stop: 06/14/23 08:59 Last Admin: 05/18/23 08:13 Dose: 1 puffs Gabapentin (Gabapentin 100 Mg Cap) 200 mg PO TID@0730,1200,2100 [facility] Stop: 06/14/23 02:19 Last Admin: 05/18/23 08:12 Dose: 200 mg Guaifenesin (Guaifenesin 600 Mg Tabcr) 1,200 mg PO Q12 [facility] Stop: 06/14/23 15:54 Last Admin: 05/18/23 08:12 Dose: 1,200 mg Promethazine HCl 12.5 mg/ (Sodium Chloride) 50.5 mls @ 202 mls/hr IV Q6H PRN PRN Reason: Nausea And Vomiting Stop: 06/14/23 01:51 Methylprednisolone 40 mg/ (Syringe) 0.64 mls @ 1.5 mls/min IV Q12H [facility] Stop: 06/16/23 20:59 Last Admin: 05/18/23 08:13 Dose: 1.5 mls/min Lactobacillus Acidophilus (Advanced Probiotic 1250 Mg Capsule) 2 cap PO DAILY [facility] Stop: 06/17/23 08:59 Last Admin: 05/18/23 08:13 Dose: 2 cap Levofloxacin (Levofloxacin 750 Mg Tab) 750 mg PO DAILY [facility] Stop: 05/25/23 09:01 Last Admin: 05/18/23 08:10 Dose: 750 mg Lidocaine (Lidocaine 5% 1 Patch) 1 patch TD DAILY@0900 [facility] Stop: 06/14/23 08:59 Last Admin: 05/18/23 08:13 Dose: Not Given Lorazepam (Lorazepam 0.5 Mg Tab) 0.5 mg PO Q4H PRN PRN Reason: Anxiety Stop: 06/14/23 14:22 Last Admin: 05/16/23 17:32 Dose: 0.5 mg Melatonin (Melatonin 3 Mg Tab) 3 mg PO HS [facility] Stop: 06/14/23 20:59 Last Admin: 05/17/23 21:01 Dose: 3 mg Midodrine (Midodrine Hcl 2.5 Mg Tab) 5 mg PO TIDM [facility] Stop: 06/14/23 07:59 Last Admin: 05/18/23 08:10 Dose: 5 mg Miscellaneous (Remove Lidoderm Patch) 1 each N/A DAILY@2100 [facility] Stop: 06/14/23 20:59 Last Admin: 05/17/23 20:55 Dose: Not Given Multivitamins (Multivitamin Tab) 1 tab PO DAILY [facility] Stop: 06/14/23 08:59 Last Admin: 05/18/23 08:11 Dose: 1 tab Oxybutynin Chloride (Oxybutynin Chloride Xl 5 Mg Tabcr) 10 mg PO QAM [facility] Stop: 06/14/23 08:59 Last Admin: 05/18/23 08:11 Dose: 10 mg Oxycodone HCl (Oxycodone Hcl Ir 5 Mg Tab (Immediate Release)) 15 mg PO Q6H PRN PRN Reason: Pain Stop: 05/29/23 21:27 Last Admin: 05/18/23 03:14 Dose: 15 mg Pantoprazole Sodium (Pantoprazole 40 Mg Tab) 40 mg PO QAM [facility] Stop: 06/14/23 08:59 Last Admin: 05/18/23 08:11 Dose: 40 mg Polyethylene Glycol (Polyethylene (Miralax) 17 Gm Pack) 17 gm PO AMHS [facility] Stop: 06/14/23 08:59 Last Admin: 05/18/23 08:14 Dose: Not Given Senna/Docusate Sodium (Docusate Sodium/Senna 50/8.6mg Tab) 2 tab PO HS [facility] Stop: 06/14/23 20:59 Last Admin: 05/17/23 21:00 Dose: 2 tab Trazodone HCl (Trazodone Hcl 50 Mg Tab) 50 mg PO HS [facility] Stop: 06/14/23 20:59 Last Admin: 05/17/23 21:01 Dose: 50 mg Vibegron (Vibegron 75 Mg Tab) 75 mg PO QAM [facility] Stop: 06/14/23 08:59 Last Admin: 05/18/23 08:11 Dose: 75 mg
[2023-05-18 11:19] LABS: Hematocrit (blood only) 42.6 % (42.0-52.0); Hemoglobin 13.6 g/dl (14.0-18.0); Mean Corpuscular Hemoglobin 25.1 pg (25.0-34.0); Mean Corpuscular Hgb Conc 31.9 g/dL (32.0-36.0); Mean Corpuscular Volume 78.6 fL (80.0-100.0); Mean Platelet Volume 10.1 fL (9.4-12.4); Platelet Count 298 K/uL (130-400); RDW Coefficient of Variation 19.9 % (11.5-14.5); RDW Standard Deviation 54.8 fL (36.4-46.3); Red Blood Count 5.42 M/uL (4.70-6.10); White Blood Count 16.44 K/ul (4.8-10.8)
[2023-05-18 11:30] LABS: Anion Gap 5 (3-11); BUN Creatinine Ratio 52.2 (10-20); Blood Urea Nitrogen 24 mg/dl (6-23); Carbon Dioxide 27 mmol/L (21-32); Chloride 105 mmol/L (98-107); Est GFR (African American) > 150.0 ml/min; Est GFR (Non-African American) 134.5 ml/min; Glucose 128 mg/dl (70-99(Fasting)); Magnesium 2.3 mg/dl (1.7-2.4); Phosphorus 2.2 mg/dl (2.5-4.9); Potassium 4.5 mmol/L (3.5-5.1); Sodium 137 mmol/L (136-145)
[2023-05-18] MEDS ORDERED: oxyCODONE HCL IR 5 MG TAB (IMMEDIATE RELEASE) PO STA (16:03)
[2023-05-18] MEDS: MELATONIN 3 MG TAB PO SCH (21:10)
[2023-05-18] MEDS: traZODone HCL 50 MG TAB PO SCH (21:11)
[2023-05-18] MEDS: DOCUSATE SODIUM/SENNA 50/8.6MG TAB PO SCH (21:11)
[2023-05-19] MEDS ORDERED: oxyCODONE HCL IR 5 MG TAB (IMMEDIATE RELEASE) PO STA (00:11)
[2023-05-19] MEDS: oxyCODONE HCL IR 5 MG TAB (IMMEDIATE RELEASE) PO PRN ×4 (02:04→22:06)
[2023-05-19] MEDS: ACETAMINOPHEN 325 MG TAB PO PRN (05:21)
[2023-05-19] MEDS: ALBUT/IPRATROP 3MG/0.5MG NEB 3 ML VIAL NEB SCH ×3 (07:05→14:31)
[2023-05-19] MEDS: ACETYLCYSTEINE 10% INHAL SOLN 4 ML **DISPENSED BY RESP. INH SCH (07:05)
--- NOTE | 2023-05-19 08:13 | Hospitalist Progress Note ---
Date of Service May 19, 2023 Assessment & Plan (1) COPD exacerbation: (2) Pneumonitis: (3) Complicated UTI (urinary tract infection): (4) Decubitus ulcer of sacral area: Plan: ACUTE HYPOXIC RESPIRATORY FAILURE SECONDARY TO COPD EXACERBATION PNEUMONIA Sputum culture: Unable to be collected Blood culture: Negative Required 2 L of oxygen by nasal cannula, wean to off, currently on room air Given Solu-Medrol 40 mg every 8 hours--> taper off to every 12, then prednisone 40 mg daily, then taper slowly Nebs 4 times daily, will need a nebulizer machine at home Spirometry, flutter valve, CoughAssist device (patient uses at baseline at home), added Chest physiotherapy as well Recommending Levaquin 10-day course and Augmentin 5-day course Speech therapy recommendations: Regular diet, aspiration precautions COMPLICATED UTI HX RECURRENT INFECTIONS SECONDARY TO NEUROGENIC BLADDER WITH CHRONIC INDWELLING SUPRAPUBIC CATHETER (Enterococcus; Pseudomonas with intermediate resistance to cefepime, ceftazidime, quinolones and Zosyn on prior CS) Urine culture: Stenotrophomonas Given meropenem and fluconazole x2 days ID consulted Recommend Levaquin to complete 10-day course CHRONIC SACRAL DECUBITUS ULCER CT showing possible chronic osteomyelitis No signs of active infection of the ulcer site on exam ID service consulted-treatment not indicated due to chronic nature Other chronic issues: chronic diastolic heart failure (EF 60%, TTE 2021)- 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) --Has chronic generalized pain, requesting to increase oxycodone to 15 mg every 4 hours, discussed with patient, will try every 6 hours for now and monitor response Patient verbalized understanding and agreement recurrent UTI secondary to neurogenic bladder with chronic indwelling suprapubic catheter, poor compliance with suprapubic catheter care and outpatient urology visits as per specialist documentation hypotension on midodrine HCV status post Rx chronic anemia, hemoglobin at baseline chronic sacral decubitus/leg osteomyelitis, not worsening as per patient chronic pain on narcotics anxiety/mood disorder, at baseline hx substance abuse as per records Possible functional disability ongoing tobacco abuse History of MRSA DVT prophylaxis. Eliquis Full code Disposition Lives at home, care provided by patient's sister Anticipate discharge home medically stable Patient requesting to establish with [facility] primary care physician Patient also requesting to establish with [facility] wound care center Admission and Anticipated Discharge Date Admission Date: May 15, 2023 Results & Data Results & Data Vital Signs (Past 12 Hours) Vital Signs Temp Pulse Pulse Resp BP Pulse Ox O2 Del Method 05/19/23 07:35 62 05/19/23 07:06 58 L 20 92 Room Air 05/19/23 04:35 37 C 67 14 132/84 94 Room Air 05/18/23 22:02 80 05/18/23 22:00 36.8 C 69 12 123/77 92 Room Air 05/18/23 21:15 112/66 05/18/23 20:44 36.5 C 90 12 91/57 L 92 Room Air
[2023-05-19] MEDS: VIBEGRON 75 MG TAB PO SCH (09:05)
[2023-05-19] MEDS: POLYETHYLENE (MIRALAX) 17 GM PACK PO SCH ×2 (09:05→20:53)
[2023-05-19] MEDS: AMOXICILLIN/CLAVULANATE 875 MG TAB PO SCH ×2 (09:05→20:51)
[2023-05-19] MEDS: LIDOCAINE 5% 1 PATCH TD SCH (09:05)
[2023-05-19] MEDS: guaiFENesin 600 MG TABCR PO SCH ×2 (09:06→20:50)
[2023-05-19] MEDS: BACLOFEN 20 MG TAB PO SCH ×3 (09:06→20:51)
[2023-05-19] MEDS: GABAPENTIN 100 MG CAP PO SCH ×3 (09:06→20:51)
[2023-05-19] MEDS: FAMOTIDINE 20 MG TAB PO SCH ×2 (09:06→20:50)
[2023-05-19] MEDS: PANTOprazole 40 MG TAB PO SCH (09:07)
[2023-05-19] MEDS: APIXABAN 5 MG TABLET PO SCH ×2 (09:07→20:51)
[2023-05-19] MEDS: OXYBUTYNIN CHLORIDE XL 5 MG TABCR PO SCH (09:07)
[2023-05-19] MEDS: DULoxetine HCL 60 MG CAP PO SCH (09:07)
[2023-05-19] MEDS: FERROUS SULFATE 325 MG TAB PO SCH (09:07)
[2023-05-19] MEDS: levoFLOXacin 750 MG TAB PO SCH (09:07)
[2023-05-19] MEDS: ADVANCED PROBIOTIC 1250 MG CAPSULE PO SCH (09:07)
[2023-05-19] MEDS: MULTIVITAMIN TAB PO SCH (09:07)
[2023-05-19] MEDS: methylPREDNISolone 40 MG in SYRINGE 0 ML IV SCH (09:08)
[2023-05-19] MEDS: FLUTICASONE FUROATE 200MCG 14 PUFFS/INHALER INH SCH (09:08)
[2023-05-19 09:19] LABS: Hematocrit (blood only) 43.1 % (42.0-52.0); Hemoglobin 13.4 g/dl (14.0-18.0); Mean Corpuscular Hemoglobin 25.1 pg (25.0-34.0); Mean Corpuscular Hgb Conc 31.1 g/dL (32.0-36.0); Mean Corpuscular Volume 80.7 fL (80.0-100.0); Mean Platelet Volume 9.8 fL (9.4-12.4); Platelet Count 262 K/uL (130-400); RDW Coefficient of Variation 19.6 % (11.5-14.5); RDW Standard Deviation 55.6 fL (36.4-46.3); Red Blood Count 5.34 M/uL (4.70-6.10); White Blood Count 11.56 K/ul (4.8-10.8)
[2023-05-19] MEDS: MIDODRINE HCL 2.5 MG TAB PO SCH ×3 (09:30→16:04)
[2023-05-19 09:42] LABS: Anion Gap 5 (3-11); BUN Creatinine Ratio 43.5 (10-20); Blood Urea Nitrogen 20 mg/dl (6-23); Carbon Dioxide 26 mmol/L (21-32); Chloride 104 mmol/L (98-107); Est GFR (African American) > 150.0 ml/min; Est GFR (Non-African American) 134.5 ml/min; Glucose 129 mg/dl (70-99(Fasting)); Magnesium 2.3 mg/dl (1.7-2.4); Phosphorus 3.3 mg/dl (2.5-4.9); Potassium 4.4 mmol/L (3.5-5.1); Sodium 135 mmol/L (136-145)
--- NOTE | 2023-05-19 14:14 | Discharge Summary ---
Discharge Summary Date of Service May 19, 2023 Notes For Next Care Provider Consider need for further tapering dose of prednisone at pcp follow up on 05/23/2023 Consider pain medication oxycodone extension at pcp follow up on 05/23/2023 and re-fill as needed until pt sees pain management (missed pain management appt while hospitalized). Needs chest CT in 3-4 months for documented resolution of symptoms/re- evaluation. Consider pulmonology follow up. Medication Changes From Visit Prednisone 40 mg daily for 5 days- consider need for tapering dose at pcp follow up on 05/23/2023 Levaquin 750mg daily for an additional 6 days (10 days total) Augmentin for an additional 2 more days (5 days total) Oxycodone 15mg q6h until follow up with pcp on 05/23/2023 Admission HPI Per Admitting Provider History obtained from patient and records. 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 Last confinement at [facility] April 22 to 2022 for chronic sacral and LE osteomyelitis. Pseudomonas and Enterobacter on CS. Patient discharged on 10-day course of Cipro Rx as per ID recommendations. Patient later developed flank pain followed by admission at [facility]. CT imaging showed nonobstructing left intrarenal calculi of unclear size and proctitis as per report. UA grew Georgina albicans. Patient discharged on antibiotic medications. Patient returned to [facility] ER last May 04, 2023 for persistent flank pain complaints attributed to UTI. CT abdomen pelvis results as follows; 1. Nonobstructing bilateral renal calculi greater on the left. 2. Stable suprapubic catheter with diffuse wall thickening and non dependent air within the bladder secondary to catheterization. 3. Sacral decubitus ulcer with associated osteomyelitis of the sacrum. Patient discharged on Cefdinir course. No growth on final urine CS. Patient noted worsening achy flank pain complaints in the last week. Patient missed outpatient [facility] Urology appointment. Feeling cold all over. Junky cough symptoms with shortness of breath. Admits to coughing with meals/water intake if not careful. Some chest pain from coughing. No headache symptoms. No hematuria. Patient brought to the ER for evaluation. IV ceftriaxone administered at the ER. Medical History as above Surgical History : Ankle surgery, neck surgery, urologic procedures, arm surgery, appendectomy Family History : Heart disease Personal/Social history : 2 packs daily, occasional EtOH intake, disabled Admission Exam Per Admitting Provider GENERAL: Slightly uncomfortable, looks older than stated age, no respiratory distress SKIN: Pallor, warm HEENT: Alopecia, pale palpebral conjunctivae, no ptosis, dry buccal mucosa NECK : Some limitation in motion, no tenderness CHEST : Decreased breath sounds, bilateral rhonchi with scattered wheezes, no tenderness HEART : Bradycardic, no obvious murmurs ABDOMEN: Some distention, hypogastric tenderness EXTREMITIES : Minimal LE swelling/tenderness, posterior surfaces not examined NEUROLOGIC : Coherent, no facial asymmetry, MMTS BUE 3/5, BLE 0 Principal Dx & Hospital Course #1 = Principal Diagnosis (1) Complicated UTI (urinary tract infection): (2) COPD exacerbation: (3) Decubitus ulcer of sacral area: (4) Pneumonitis: Plan Pt is a 47yoM with PMHx significant for chronic diastolic heart failure (EF 60%, TTE 2021), saddle PE on Eliquis COPD, 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 ACUTE HYPOXIC RESPIRATORY FAILURE SECONDARY TO COPD EXACERBATION PNEUMONIA Sputum culture: Unable to be collected Blood culture: Negative CT chest concerning for an infectious/inflammatory pneumonitis, diffuse peribronchial thickening with debris/mucus plugging mainstem bronchi. A 3-4 month follow-up chest CT is also recommended to document complete resolution and reevaluate the underlying lung parenchyma. Required 2 L of oxygen by nasal cannula, weaned down, discharged on room air Given Solu-Medrol 40 mg every 8 hours--> taper off to every 12, then prednisone 40 mg daily on discharge for 5 days. At pcp followup, re-evaluate for further tapering prednisone need. Nebs QID, discharged with script for nebs and nebulizer machine for prn use at home. Spirometry, flutter valve, CoughAssist device (patient uses at baseline at home), added Chest physiotherapy as well Recommending Levaquin 10-day course and Augmentin 5-day course - discharged with remaining doses.(Levaquin for 6 more days, Augmentin for 2 more days) Speech therapy recommendations: Regular diet, aspiration precautions Consider further evaluation by pulmonology. COMPLICATED UTI HX RECURRENT INFECTIONS SECONDARY TO NEUROGENIC BLADDER WITH CHRONIC INDWELLING SUPRAPUBIC CATHETER (Enterococcus; Pseudomonas with intermediate resistance to cefepime, ceftazidime, quinolones and Zosyn on prior CS) Urine culture: grew Stenotrophomonas maltophilia Given meropenem and fluconazole x2 days ID consulted Recommended Levaquin as above to complete 10-day course (discharged with 6 more days) Has ID follow up scheduled on 05/31/[address] showing possible chronic osteomyelitis No signs of active infection at the ulcer site on exam ID service consulted-treatment not indicated due to chronic nature Consider wound clinic follow up. 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 Pt scheduled with pcp on May 23. Pt missed pain management appointment while hospitalized. recurrent UTI secondary to neurogenic bladder with chronic indwelling suprapubic catheter, poor compliance with suprapubic catheter care and outpatient urology visits as per specialist documentation hypotension on midodrine HCV status post Rx chronic anemia, hemoglobin at baseline chronic sacral decubitus/leg osteomyelitis, not worsening as per patient chronic pain on narcotics anxiety/mood disorder, at baseline hx substance abuse as per records Possible functional disability ongoing tobacco abuse History of MRSA Discharge Exam General: Alert, oriented. No acute distress Skin: No noted rashes or bruises Psych: Appropriate mood and affect Neuro: difficulty moving lower extremities HEENT: NC/AT Chest: Nontender to palpation. CV: RRR Resp: Breath sounds decreased bilaterally, no increased effort of breathing Abdomen: Soft, nontender Extremities: braces on lower extremities bilaterally. Updated Medication List Medication Instructions Recorded Confirmed Type Naloxone Hcl 4 Mg/0.1ml Liquid See Rx Instructions .Route .COMPLEX 05/15/23 05/15/23 History acetaminophen 500 mg tablet 500 mg PO .Q 4 HRS WHILE AWAKE 05/15/23 05/15/23 History apixaban 5 mg tablet 5 mg PO AMHS 05/15/23 05/15/23 History ascorbic acid (vitamin C) 500 mg 500 mg PO QAM 05/15/23 05/15/23 History tablet (Vitamin C) baclofen 10 mg tablet 20 mg PO TID 05/15/23 05/15/23 History bisacodyl 10 mg rectal suppository 10 mg AK AMPM 05/15/23 05/15/23 History celecoxib 200 mg capsule 200 mg PO AMHS 05/15/23 05/15/23 History ciprofloxacin HCl 500 mg tablet 500 mg PO AMHS 05/15/23 05/15/23 History collagenase clostridium histo. 250 1 applic topical DAILY 05/15/23 05/15/23 History unit/gram topical ointment (Santyl) diclofenac sodium 1 % topical gel 2 g topical QID 05/15/23 05/15/23 History duloxetine 60 mg capsule,delayed 60 mg PO QAM 05/15/23 05/15/23 History release famotidine 20 mg tablet 20 mg PO AMHS 05/15/23 05/15/23 History ferrous sulfate 325 mg (65 mg 325 mg PO QDB 05/15/23 05/15/23 History iron) tablet fluticasone propionate 100 1 inh inhalation AMHS 05/15/23 05/15/23 History mcg/actuation blister powder for inhalation gabapentin 100 mg capsule 200 mg PO TID 05/15/23 05/15/23 History hydroxyzine HCl 25 mg tablet 25 mg PO QAM 05/15/23 05/15/23 History lactulose 20 gram/30 mL oral 20 g PO TID 05/15/23 05/15/23 History solution lidocaine 5 % topical patch 1 patch topical DAILY 05/15/23 05/15/23 History lidocaine HCl 2 % mucosal solution 5 ml PO ACHS PRN as directed 05/15/23 05/15/23 History (Lidocaine Viscous) melatonin 3 mg tablet 3 mg PO HS 05/15/23 05/15/23 History midodrine 10 mg tablet 5 mg PO TID 05/15/23 05/15/23 History mirabegron 50 mg tablet,extended 50 mg PO QAM 05/15/23 05/15/23 History release 24 hr (Myrbetriq) multivitamin 1 tab PO DAILY 05/15/23 05/15/23 History oxybutynin chloride 10 mg 10 mg PO QAM 05/15/23 05/15/23 History tablet,extended release 24 hr oxycodone 15 mg tablet (Roxicodone) 15 mg PO Q4H PRN pain severe 05/15/23 05/15/23 History pantoprazole 40 mg tablet,delayed 40 mg PO QAM 05/15/23 05/15/23 History release polyethylene glycol 3350 17 gram 17 g PO AMHS 05/15/23 05/15/23 History oral powder packet (Miralax) potassium chloride 20 mEq 20 meq PO AMHS 05/15/23 05/15/23 History tablet,extended release(part/cryst) sennosides 8.6 mg-docusate sodium 2 tab-cap PO HS 05/15/23 05/15/23 History 50 mg tablet solifenacin 10 mg tablet 10 mg PO QAM 05/15/23 05/15/23 History trazodone 50 mg tablet 50 mg PO HS 05/15/23 05/15/23 History umeclidinium 62.5 mcg-vilanterol 1 inh inhalation QAM 05/15/23 05/15/23 History 25 mcg/actuation powdr for inhalation (Anoro Ellipta) albuterol sulfate 2.5 mg/3 mL 1.25 mg (1.5 mL) inhalation Q8H 05/19/23 Rx (0.083 %) solution for nebulization PRN bronchospasm #90 mL amoxicillin 875 mg-potassium 1 tab PO BID #4 tabs 05/19/23 Rx clavulanate 125 mg tablet levofloxacin 750 mg tablet 750 mg PO DAILY #6 tabs 05/19/23 Rx oxycodone 15 mg tablet 15 mg PO Q6H severe pain #20 tabs 05/19/23 Rx prednisone 20 mg tablet 20 mg PO DAILY #10 tabs 05/19/23 Rx Hospital Stay Data Consultations 05/15/23 00:35 ED Decision to Admit Stat 05/15/23 04:56 Consult Infectious Diseases Routine Diagnostic Imagining Performed 05/14/23 20:02 CT Abd and Pelvis [CT abd pelvis IV con only] Stat CT chest diagnostic w con Stat Abdomen/Pelvis CT 05/14/23 20:02 CT SCAN OF THE ABDOMEN AND PELVIS WITH IV CONTRAST CLINICAL HISTORY: Generalized abdominal pain. COMPARISON STUDY: No priors. TECHNIQUE: Following the IV administration of 91 cc of Optiray 320, CT scan of the abdomen and pelvis is performed from the lung bases to the proximal femora. Images are reviewed in the axial, sagittal, and coronal planes. IV contrast was administered without complication. A dose lowering technique was utilized adhering to the principles of ALARA. CT DOSE: 2909.35 mGy.cm FINDINGS: Lung bases: The heart is normal in size and without pericardial effusion. Peribronchial thickening is seen in the lower lobes with residual minimal secretions/debris. Bibasilar airspace opacities could represent scar/atelectasis versus mild pneumonitis. No pleural effusion is seen. Liver: The contrast-enhanced liver is normal in size, contour, and attenuation. There is mild central intrahepatic biliary ductal dilatation. The hepatic veins and portal veins are patent. Gallbladder: Surgically absent noting clips in the gallbladder fossa. Spleen: Normal in size and attenuation. Pancreas: Unremarkable. Adrenal glands: Unremarkable. Kidneys: The contrast enhanced kidneys are normal in size and without hydronephrosis. The kidneys enhance symmetrically. There are at least 3 nonobstructing left renal calculi which measure up to 10 mm. A punctate calculus is suggested in the right lower pole. No ureteral stone is seen. Abdominal vasculature: The abdominal aorta is normal in course and caliber. Bowel: There is mild to moderate colonic fecal retention. No bowel obstruction is seen. The appendix is not visualized. Peritoneum: There is no intraperitoneal free air or abdominal ascites. There is a small fat-containing umbilical hernia. Lymphadenopathy: None. Pelvic viscera: The bladder is decompressed around a suprapubic catheter. The wall appears diffusely thickened and there are foci of intraluminal gas. The prostate and seminal vesicles are normal as visualized. Skeletal structures: The skeletal structures are osteopenic. No lytic or blastic lesions are seen. The lower sacrum and coccyx have been resected. There is a large decubitus ulceration overlying the sacrum. This reaches the sacral cortex, and there is underlying sclerotic change. No bony erosion is clearly identified. IMPRESSION: 1. Dependent opacities are present both lung bases, left greater then right as detailed above. This could represent scarring/atelectasis versus a mild pneumonitis. Clinical correlation will be required. Radiographic follow-up to resolution is recommended. 2. The bladder is decompressed around a suprapubic catheter and appears diffusely thick-walled. Correlate with clinical findings and urinalysis for evidence of cystitis. 3. Bilateral nephrolithiasis. No ureteral stone is seen. 4. Large sacral decubitus ulceration, which extends to the underlying sacrum. There is sclerotic change in the underlying bone which may represent chronic osteomyelitis. No erosive change is identified. Correlate clinically. 5. Additional findings as above. ACT 112: Negative or not required by law. Electronically signed by: Ramo Green M.D. 05/14/2023 10:[address] 05/14/23 20:02 CT SCAN OF THE CHEST WITH IV CONTRAST CLINICAL HISTORY: Dyspnea. COMPARISON STUDY: No priors. TECHNIQUE: Following the IV administration of 91 cc of Optiray 320, CT scan of the thorax was performed from the thoracic inlet to the upper abdomen. Images are reviewed in the axial, sagittal, and coronal planes. IV contrast was administered without complication. A dose lowering technique was utilized adhering to the principles of ALARA. The examination is degraded by motion artifact, as well as by streak artifact from the arms which could not be elevated above the chest. FINDINGS: Thyroid: Imaged portions of the thyroid gland are normal in size and attenuation. Thoracic aorta: The thoracic aorta is normal in caliber and demonstrates 4- vessel variant arch anatomy. No dissection is seen. Pulmonary vasculature: The pulmonary trunk is normal in caliber. There are no filling defects identified in the central pulmonary vessels to indicate pulmonary embolus. Note that this examination was not protocoled for evaluation of the pulmonary arteries. Heart: The heart is top normal in size and without pericardial effusion. Lungs and pleural spaces: Evaluation of the lung parenchyma is mostly degraded by motion artifact. There are patchy foci of subpleural airspace consolidation in the upper lobes. Peribronchial thickening is seen in the lower lobes with mucous plugging/intraluminal debris. There are dependent airspace opacities, left greater than right. No pleural effusion is identified. The trachea appears clear. Debris is seen within the mainstem bronchi. Mediastinum: There is no mediastinal lymphadenopathy. Aliya: Clear. Axillae: There is no axillary lymphadenopathy. Upper abdomen: Partially visualized upper abdominal viscera is within normal limits. Skeletal structures: The skeletal structures are osteopenic. No lytic or blastic bony lesions are seen. Fusion hardware is noted at the cervicothoracic junction. Mild hyperkyphosis is noted in the thoracic spine. IMPRESSION: 1. There are patchy foci of subpleural airspace consolidation in the upper lobes, typical for an infectious/inflammatory pneumonitis. 2. Additionally, there is diffuse peribronchial thickening with debris/mucus plugging mainstem bronchi as well as the lower lobe airways. There are dependent airspace opacities at both lung bases, left greater than right. This comparison scarring/atelectasis versus pneumonia/aspiration pneumonitis. Clinical correlation of these findings will be required and radiographic follow-up to resolution is recommended. A 3-4 month follow-up chest CT is also recommended to document complete resolution and reevaluate the underlying lung parenchyma. 3. There is no pleural effusion. 4. Additional findings as above. ACT 112: Negative or not required by law. Electronically signed by: Ramo Green M.D. 05/14/2023 11:17 PM Chest X-Ray 05/17/23 10:24 XR chest 1V portable HISTORY: ff up possible aspiration COMPARISON: Chest CT 05/14/2023. FINDINGS: The biapical peripheral groundglass airspace opacity seen on the recent chest CT are not well visualized on this modality. No pneumothorax. No pleural effusions. The heart remains mildly enlarged. No evidence for pulmonary edema. There are few left basilar linear densities, unchanged. Cervical spinal fusion hardware is again noted. IMPRESSION: 1. Biapical groundglass airspace opacities seen on the recent chest CT are not well evaluated by this modality. 2. No change in the left basilar linear densities. This could represent atelectasis or a low-grade pneumonitis. 3. Stable mild cardiomegaly. ACT 112: Negative or not required by law. Electronically signed by: Zeeshan Mejia M.D. 05/17/2023 12:19 PM Pending Results Patient Have Any Pending Studies at Discharge: No Discharge Instructions Given to Patient (Per Discharging Provider) Mr. Fried, You are being discharged home. To help with your breathing we are discharging you home with prednisone, antibiotics and recommend use of a nebulizer machine at home. We sent you albuterol medicine to use with your nebulizer machine. The antibiotics we are discharging you home with will also help treat your urinary tract infection. Since you missed your appointment with pain management, we are discharging you home with 5 days of pain medication until you follow up with your primary care care provider as scheduled on 05/23. It was a pleasure taking care of you during your time here. Total Time Total Time Spent Total Time Spent (In Minutes): > 30 minutes
--- NOTE | 2023-05-19 15:51 | Hospitalist Progress Note ---
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 ACUTE HYPOXIC RESPIRATORY FAILURE SECONDARY TO COPD EXACERBATION PNEUMONIA Sputum culture: Unable to be collected Blood culture: Negative CT chest concerning for an infectious/inflammatory pneumonitis, diffuse peribronchial thickening with debris/mucus plugging mainstem bronchi.A 3-4 month follow-up chest CT is also recommended to document complete resolution and reevaluate the underlying lung parenchyma. Required 2 L of oxygen by nasal cannula, weaned down, discharged on room air Given Solu-Medrol 40 mg every 8 hours--> taper off to every 12, then prednisone 40 mg daily on discharge for 5 days.At pcp followup, re-evaluate for further tapering prednisone need. Nebs QID, discharged with script for nebs and nebulizer machine for prn use at home. Spirometry, flutter valve, CoughAssist device (patient uses at baseline at home), added Chest physiotherapy as well Recommending Levaquin 10-day course and Augmentin 5-day course - discharging with remaining doses.(Levaquin for 6 more days, Augmentin for 2 more days) Speech therapy recommendations: Regular diet, aspiration precautions Consider further evaluation by pulmonology. COMPLICATED UTI HX RECURRENT INFECTIONS SECONDARY TO NEUROGENIC BLADDER WITH CHRONIC INDWELLING SUPRAPUBIC CATHETER (Enterococcus; Pseudomonas with intermediate resistance to cefepime, ceftazidime, quinolones and Zosyn on prior CS) Urine culture: grew Stenotrophomonas maltophilia Given meropenem and fluconazole x2 days ID consulted Recommended Levaquin as above to complete 10-day course (discharging with 6 more days) Has ID follow up scheduled on 05/31/[address] showing possible chronic osteomyelitis No signs of active infection at the ulcer site on exam ID service consulted-treatment not indicated due to chronic nature Consider wound clinic follow up. 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 Pt scheduled with pcp on May 23. Pt missed pain management appointment while hospitalized. recurrent UTI secondary to neurogenic bladder with chronic indwelling suprapubic catheter, poor compliance with suprapubic catheter care and outpatient urology visits as per specialist documentation hypotension on midodrine HCV status post Rx chronic anemia, hemoglobin at baseline chronic sacral decubitus/leg osteomyelitis, not worsening as per patient chronic pain on narcotics anxiety/mood disorder, at baseline hx substance abuse as per records Possible functional disability ongoing tobacco abuse History of MRSA Admission and Anticipated Discharge Date Admission Date: May 15, 2023 Subjective Pt seen today. No acute distress, on room air. States he would like to go home. Denies acute symptoms Review of Systems Review of Systems: All systems reviewed & are unremarkable except as noted in Subjective Physical Exam Physical Exam: General: Alert, oriented. No acute distress Skin: No noted rashes or bruises Psych: Appropriate mood and affect Neuro: difficulty moving lower extremities HEENT: NC/AT Chest: Nontender to palpation. CV: RRR Resp: Breath sounds decreased bilaterally, no increased effort of breathing Abdomen: Soft, nontender Extremities: braces on lower extremities bilaterally. Results & Data Results & Data Vital Signs (Past 12 Hours) Vital Signs Temp Pulse Pulse Resp BP BP Pulse Ox 05/19/23 09:15 05/19/23 14:32 36.4 C L 75 18 113/73 144/86 H 92 05/19/23 14:31 58 L 18 93 05/19/23 12:24 36.4 C L 75 18 113/73 92 05/19/23 10:32 56 L 16 94 05/19/23 08:27 36.5 C 64 18 134/70 90 05/19/23 07:35 62 05/19/23 07:06 58 L 20 92 05/19/23 04:35 37 C 67 14 132/84 94 O2 Del Method 05/19/23 09:15 Room Air 05/19/23 14:32 05/19/23 14:31 Room Air 05/19/23 12:24 Room Air 05/19/23 10:32 Room Air 05/19/23 08:27 Room Air 05/19/23 07:35 05/19/23 07:06 Room Air 05/19/23 04:35 Room Air
[2023-05-19] MEDS: DOCUSATE SODIUM/SENNA 50/8.6MG TAB PO SCH (20:50)
[2023-05-19] MEDS: MELATONIN 3 MG TAB PO SCH (21:02)
[2023-05-19] MEDS: traZODone HCL 50 MG TAB PO SCH (21:02)
[2023-05-20] MEDS: oxyCODONE HCL IR 5 MG TAB (IMMEDIATE RELEASE) PO PRN ×3 (05:01→18:04)
[2023-05-20] MEDS: MIDODRINE HCL 2.5 MG TAB PO SCH ×3 (07:26→17:33)
[2023-05-20] MEDS: bisacodyL 10 MG SUPP PR PRN (07:34)
[2023-05-20] MEDS: FLUTICASONE FUROATE 200MCG 14 PUFFS/INHALER INH SCH (07:38)
[2023-05-20] MEDS: POLYETHYLENE (MIRALAX) 17 GM PACK PO SCH ×2 (07:38→21:49)
[2023-05-20] MEDS: LIDOCAINE 5% 1 PATCH TD SCH ×2 (07:38→21:25)
[2023-05-20] MEDS: OXYBUTYNIN CHLORIDE XL 5 MG TABCR PO SCH (07:39)
[2023-05-20] MEDS: FERROUS SULFATE 325 MG TAB PO SCH (07:39)
[2023-05-20] MEDS: ADVANCED PROBIOTIC 1250 MG CAPSULE PO SCH (07:39)
[2023-05-20] MEDS: levoFLOXacin 750 MG TAB PO SCH (07:39)
[2023-05-20] MEDS: MULTIVITAMIN TAB PO SCH (07:39)
[2023-05-20] MEDS: PANTOprazole 40 MG TAB PO SCH (07:39)
[2023-05-20] MEDS: DULoxetine HCL 60 MG CAP PO SCH (07:39)
[2023-05-20] MEDS: predniSONE 20 MG TAB PO SCH (07:40)
[2023-05-20] MEDS: guaiFENesin 600 MG TABCR PO SCH ×2 (07:40→21:27)
[2023-05-20] MEDS: GABAPENTIN 100 MG CAP PO SCH ×3 (07:40→21:26)
[2023-05-20] MEDS: APIXABAN 5 MG TABLET PO SCH ×2 (07:40→23:39)
[2023-05-20] MEDS: FAMOTIDINE 20 MG TAB PO SCH ×2 (07:40→21:27)
[2023-05-20] MEDS: VIBEGRON 75 MG TAB PO SCH (07:40)
[2023-05-20] MEDS: AMOXICILLIN/CLAVULANATE 875 MG TAB PO SCH ×2 (07:41→21:28)
[2023-05-20] MEDS: BACLOFEN 20 MG TAB PO SCH ×3 (07:41→21:28)
[2023-05-20] MEDS: ALBUT/IPRATROP 3MG/0.5MG NEB 3 ML VIAL NEB PRN ×2 (09:58→23:13)
--- NOTE | 2023-05-20 10:55 | XRay Report ---
XR chest 1V portable HISTORY: 47 years-old Male shortness of breath COMPARISON: 05/17/2023 TECHNIQUE: AP view of the chest FINDINGS: Cardiac silhouette is enlarged. No pneumothorax, pleural effusion, airspace consolidation or pulmonar y edema. Degenerative changes of the shoulders and spine. Cervical spinal fusion hardware. IMPRESSION: No acute process. ACT 112: Negative or not required by law. The above report was generated using voice recognition software. It may contain grammatical, syntax o r spelling errors. Electronically signed by: Anil Friedman M.D. 05/20/2023 10:53 AM
[2023-05-20] MEDS: traZODone HCL 50 MG TAB PO SCH (21:21)
[2023-05-20] MEDS: MELATONIN 3 MG TAB PO SCH (21:49)
[2023-05-20] MEDS: DOCUSATE SODIUM/SENNA 50/8.6MG TAB PO SCH (21:49)
[2023-05-21] MEDS: oxyCODONE HCL IR 5 MG TAB (IMMEDIATE RELEASE) PO PRN ×2 (03:35→10:06)
--- NOTE | 2023-05-21 07:31 | Hospitalist Progress Note ---
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 ACUTE HYPOXIC RESPIRATORY FAILURE SECONDARY TO COPD EXACERBATION PNEUMONIA Sputum culture: Unable to be collected Blood culture: Negative CT chest concerning for an infectious/inflammatory pneumonitis, diffuse peribronchial thickening with debris/mucus plugging mainstem bronchi.A 3-4 month follow-up chest CT is also recommended to document complete resolution and reevaluate the underlying lung parenchyma. Required 2 L of oxygen by nasal cannula, weaned down, discharged on room air Given Solu-Medrol 40 mg every 8 hours--> taper off to every 12, then prednisone 40 mg daily on discharge for 5 days.At pcp followup, re-evaluate for further tapering prednisone need. Nebs QID, discharged with script for nebs and nebulizer machine for prn use at home. Spirometry, flutter valve, CoughAssist device (patient uses at baseline at home), added Chest physiotherapy as well Recommending Levaquin 10-day course and Augmentin 5-day course - discharging with remaining doses.(Levaquin for 5 more days, Augmentin for 1 more day) Speech therapy recommendations: Regular diet, aspiration precautions Consider further evaluation by pulmonology. COMPLICATED UTI HX RECURRENT INFECTIONS SECONDARY TO NEUROGENIC BLADDER WITH CHRONIC INDWELLING SUPRAPUBIC CATHETER (Enterococcus; Pseudomonas with intermediate resistance to cefepime, ceftazidime, quinolones and Zosyn on prior CS) Urine culture: grew Stenotrophomonas maltophilia Given meropenem and fluconazole x2 days ID consulted Recommended Levaquin as above to complete 10-day course (discharging with 5 more days) Has ID follow up scheduled on 05/31/[address] showing possible chronic osteomyelitis No signs of active infection at the ulcer site on exam ID service consulted-treatment not indicated due to chronic nature Consider wound clinic follow up. 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 Pt scheduled with pcp on May 23. Pt missed pain management appointment while hospitalized. recurrent UTI secondary to neurogenic bladder with chronic indwelling suprapubic catheter, poor compliance with suprapubic catheter care and outpatient urology visits as per specialist documentation hypotension on midodrine HCV status post Rx chronic anemia, hemoglobin at baseline chronic sacral decubitus/leg osteomyelitis, not worsening as per patient chronic pain on narcotics anxiety/mood disorder, at baseline hx substance abuse as per records Possible functional disability ongoing tobacco abuse History of MRSA Admission and Anticipated Discharge Date Admission Date: May 15, 2023 Subjective Follow-up for pneumonia, UTI, etc. Seen resting in bed, in NAD however says he was feeling more short of breath this AM - breathing treatment by RN Also complained of constipation Pt was supposed to discharged yesterday but d/t transportation issues he was not No fever, chills, chest pain, or abd.pain some difficulty coughing up mucus Update: Transportation was cancelled for today-> then pt notifies nurse that he felt better and was inquiring about discharge Review of Systems Review of Systems: All systems reviewed & are unremarkable except as noted in Subjective Physical Exam Physical Exam: General- WD/WN M in NAD Eyes- anicteric Neck- no JVD Lungs- positive mild crackles bilaterally, no wheezing Heart- normal rate, regular rhythm; no murmurs Abdomen- normal bowel sounds, nondistended, soft, nontender Extremities- no pretibial edema, no calf tenderness Back- + deep ulcer at the sacral area, no signs of infection: No drainage, bleeding, surrounding erythema or tenderness Small linear wounds bilateral lower legs: Slightly open but no signs of infection, no bleeding or discharge Neuro- alert, oriented x 3; speech fluent, answers appropriately, not moving LEs (chronic) Skin- warm & dry, multiple tattoos Results & Data Results & Data Vital Signs (Past 12 Hours) Vital Signs Temp Pulse Pulse Resp BP Pulse Ox O2 Del Method 05/20/23 23:33 72 05/20/23 23:19 36.9 C 69 18 93/59 L 93 Room Air 05/20/23 23:13 67 20 87 L Room Air 05/20/23 23:02 Room Air
[2023-05-21 07:37] LABS: Creatinine Clr Calc Pharmacy 203.2 ml/min; Est GFR (African American) > 150.0 ml/min; Est GFR (Non-African American) 132.2 ml/min
[2023-05-21] MEDS: APIXABAN 5 MG TABLET PO SCH (08:55)
[2023-05-21] MEDS: BACLOFEN 20 MG TAB PO SCH ×2 (08:55→12:13)
[2023-05-21] MEDS: FAMOTIDINE 20 MG TAB PO SCH (08:55)
[2023-05-21] MEDS: guaiFENesin 600 MG TABCR PO SCH (08:55)
[2023-05-21] MEDS: GABAPENTIN 100 MG CAP PO SCH ×2 (08:56→12:13)
[2023-05-21] MEDS: AMOXICILLIN/CLAVULANATE 875 MG TAB PO SCH (08:56)
[2023-05-21] MEDS: MIDODRINE HCL 2.5 MG TAB PO SCH ×2 (08:57→12:12)
[2023-05-21] MEDS: ADVANCED PROBIOTIC 1250 MG CAPSULE PO SCH (08:57)
[2023-05-21] MEDS: levoFLOXacin 750 MG TAB PO SCH (08:58)
[2023-05-21] MEDS: MULTIVITAMIN TAB PO SCH (08:58)
[2023-05-21] MEDS: OXYBUTYNIN CHLORIDE XL 5 MG TABCR PO SCH (08:58)
[2023-05-21] MEDS: FERROUS SULFATE 325 MG TAB PO SCH (08:58)
[2023-05-21] MEDS: VIBEGRON 75 MG TAB PO SCH (08:58)
[2023-05-21] MEDS: predniSONE 20 MG TAB PO SCH (08:58)
[2023-05-21] MEDS: DULoxetine HCL 60 MG CAP PO SCH (08:59)
[2023-05-21] MEDS: FLUTICASONE FUROATE 200MCG 14 PUFFS/INHALER INH SCH (08:59)
[2023-05-21] MEDS: PANTOprazole 40 MG TAB PO SCH (08:59)
[2023-05-21] MEDS: POLYETHYLENE (MIRALAX) 17 GM PACK PO SCH (08:59)
--- NOTE | 2023-05-21 12:02 | Discharge Summary ---
Date of Service May 21, 2023 Admission HPI Per Admitting Provider Chief Complaint: Cough, shortness of breath, abdominal pain, weakness Primary Care Provider: Dr. Aguilar History obtained from patient and records. 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 Last confinement at [facility] April 22 to 2022 for chronic sacral and LE osteomyelitis. Pseudomonas and Enterobacter on CS. Patient discharged on 10-day course of Cipro Rx as per ID recommendations. Patient later developed flank pain followed by admission at [facility]. CT imaging showed nonobstructing left intrarenal calculi of unclear size and proctitis as per report. UA grew Georgina albicans. Patient discharged on antibiotic medications. Patient returned to [facility] ER last May 04, 2023 for persistent flank pain complaints attributed to UTI. CT abdomen pelvis results as follows; 1. Nonobstructing bilateral renal calculi greater on the left. 2. Stable suprapubic catheter with diffuse wall thickening and non dependent air within the bladder secondary to catheterization. 3. Sacral decubitus ulcer with associated osteomyelitis of the sacrum. Patient discharged on Cefdinir course. No growth on final urine CS. Patient noted worsening achy flank pain complaints in the last week. Patient missed outpatient [facility] Urology appointment. Feeling cold all over. Junky cough symptoms with shortness of breath. Admits to coughing with meals/water intake if not careful. Some chest pain from coughing. No headache symptoms. No hematuria. Patient brought to the ER for evaluation. IV ceftriaxone administered at the ER. Medical Historyas above Surgical History : Ankle surgery, neck surgery, urologic procedures, arm surgery, appendectomy Family History : Heart disease Personal/Social history : 2 packs daily, occasional EtOH intake, disabled Admission Exam Per Admitting Provider GENERAL: Slightly uncomfortable, looks older than stated age, no respiratory distress SKIN: Pallor, warm HEENT: Alopecia, pale palpebral conjunctivae, no ptosis, dry buccal mucosa NECK : Some limitation in motion, no tenderness CHEST : Decreased breath sounds, bilateral rhonchi with scattered wheezes, no tenderness HEART : Bradycardic, no obvious murmurs ABDOMEN: Some distention, hypogastric tenderness EXTREMITIES : Minimal LE swelling/tenderness, posterior surfaces not examined NEUROLOGIC : Coherent, no facial asymmetry, MMTS BUE 3/5, BLE 0 Principal Diagnosis ACUTE HYPOXIC RESPIRATORY FAILURE SECONDARY TO COPD EXACERBATION PNEUMONIA UTI Discharge Exam General- WD/WN M in NAD Eyes- anicteric Neck- no JVD Lungs- positive mild crackles bilaterally, no wheezing Heart- normal rate, regular rhythm; no murmurs Abdomen- normal bowel sounds, nondistended, soft, nontender Extremities- no pretibial edema, no calf tenderness Back- + deep ulcer at the sacral area, no signs of infection: No drainage, bleeding, surrounding erythema or tenderness Small linear wounds bilateral lower legs: Slightly open but no signs of infection, no bleeding or discharge Neuro- alert, oriented x 3; speech fluent, answers appropriately, not moving LEs (chronic) Skin- warm & dry, multiple tattoos Discharge Data Allergies Allergy/AdvReac Type Severity Reaction Status Date / Time No Known Allergies Allergy Verified 05/14/23 20:08 Consultations 05/15/23 00:35 ED Decision to Admit Stat 05/15/23 04:56 Consult Infectious Diseases Routine Ordered Studies 05/14/23 20:02 CT Abd and Pelvis [CT abd pelvis IV con only] Stat FINDINGS: Lung bases: The heart is normal in size and without pericardial effusion. Peribronchial thickening is seen in the lower lobes with residual minimal secretions/debris. Bibasilar airspace opacities could represent scar/atelectasis versus mild pneumonitis. No pleural effusion is seen. Liver: The contrast-enhanced liver is normal in size, contour, and attenuation. There is mild central intrahepatic biliary ductal dilatation. The hepatic veins and portal veins are patent. Gallbladder: Surgically absent noting clips in the gallbladder fossa. Spleen: Normal in size and attenuation. Pancreas: Unremarkable. Adrenal glands: Unremarkable. Kidneys: The contrast enhanced kidneys are normal in size and without hydronephrosis. The kidneys enhance symmetrically. There are at least 3 nonobstructing left renal calculi which measure up to 10 mm. A punctate calculus is suggested in the right lower pole. No ureteral stone is seen. Abdominal vasculature: The abdominal aorta is normal in course and caliber. Bowel: There is mild to moderate colonic fecal retention. No bowel obstruction is seen. The appendix is not visualized. Peritoneum: There is no intraperitoneal free air or abdominal ascites. There is a small fat-containing umbilical hernia. Lymphadenopathy: None. Pelvic viscera: The bladder is decompressed around a suprapubic catheter. The wall appears diffusely thickened and there are foci of intraluminal gas. The prostate and seminal vesicles are normal as visualized. Skeletal structures: The skeletal structures are osteopenic. No lytic or blastic lesions are seen. The lower sacrum and coccyx have been resected. There is a large decubitus ulceration overlying the sacrum. This reaches the sacral cortex, and there is underlying sclerotic change. No bony erosion is clearly identified. IMPRESSION: 1. Dependent opacities are present both lung bases, left greater then right as detailed above. This could represent scarring/atelectasis versus a mild pneumonitis. Clinical correlation will be required. Radiographic follow-up to resolution is recommended. 2. The bladder is decompressed around a suprapubic catheter and appears diffusely thick-walled. Correlate with clinical findings and urinalysis for evidence of cystitis. 3. Bilateral nephrolithiasis. No ureteral stone is seen. 4. Large sacral decubitus ulceration, which extends to the underlying sacrum. There is sclerotic change in the underlying bone which may represent chronic osteomyelitis. No erosive change is identified. Correlate clinically. 5. Additional findings as above. CT chest diagnostic w con Stat FINDINGS: Thyroid: Imaged portions of the thyroid gland are normal in size and attenuation. Thoracic aorta: The thoracic aorta is normal in caliber and demonstrates 4- vessel variant arch anatomy. No dissection is seen. Pulmonary vasculature: The pulmonary trunk is normal in caliber. There are no filling defects identified in the central pulmonary vessels to indicate pulmonary embolus. Note that this examination was not protocoled for evaluation of the pulmonary arteries. Heart: The heart is top normal in size and without pericardial effusion. Lungs and pleural spaces: Evaluation of the lung parenchyma is mostly degraded by motion artifact. There are patchy foci of subpleural airspace consolidation in the upper lobes. Peribronchial thickening is seen in the lower lobes with mucous plugging/intraluminal debris. There are dependent airspace opacities, left greater than right. No pleural effusion is identified. The trachea appears clear. Debris is seen within the mainstem bronchi. Mediastinum: There is no mediastinal lymphadenopathy. Aliya: Clear. Axillae: There is no axillary lymphadenopathy. Upper abdomen: Partially visualized upper abdominal viscera is within normal limits. Skeletal structures: The skeletal structures are osteopenic. No lytic or blastic bony lesions are seen. Fusion hardware is noted at the cervicothoracic junction. Mild hyperkyphosis is noted in the thoracic spine. IMPRESSION: 1. There are patchy foci of subpleural airspace consolidation in the upper lobes, typical for an infectious/inflammatory pneumonitis. 2. Additionally, there is diffuse peribronchial thickening with debris/mucus plugging mainstem bronchi as well as the lower lobe airways. There are dependent airspace opacities at both lung bases, left greater than right. This comparison scarring/atelectasis versus pneumonia/aspiration pneumonitis. Clinical correlation of these findings will be required and radiographic follow-up to resolution is recommended. A 3-4 month follow-up chest CT is also recommended to document complete resolution and reevaluate the underlying lung parenchyma. 3. There is no pleural effusion. 4. Additional findings as above. 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 ACUTE HYPOXIC RESPIRATORY FAILURE SECONDARY TO COPD EXACERBATION PNEUMONIA Sputum culture: Unable to be collected Blood culture: Negative CT chest concerning for an infectious/inflammatory pneumonitis, diffuse peribronchial thickening with debris/mucus plugging mainstem bronchi.A 3-4 month follow-up chest CT is also recommended to document complete resolution and reevaluate the underlying lung parenchyma. Required 2 L of oxygen by nasal cannula, weaned down, discharged on room air Given Solu-Medrol 40 mg every 8 hours--> taper off to every 12, then prednisone 40 mg daily on discharge for 5 days.At pcp followup, re-evaluate for further tapering prednisone need. Nebs QID, discharged with script for nebs and nebulizer machine for prn use at home. Spirometry, flutter valve, CoughAssist device (patient uses at baseline at home), added Chest physiotherapy as well Recommending Levaquin 10-day course and Augmentin 5-day course - discharging with remaining doses.(Levaquin for 4 more days), course of augmentin finished in the hospital Speech therapy recommendations: Regular diet, aspiration precautions Consider further evaluation by pulmonology. COMPLICATED UTI HX RECURRENT INFECTIONS SECONDARY TO NEUROGENIC BLADDER WITH CHRONIC INDWELLING SUPRAPUBIC CATHETER (Enterococcus; Pseudomonas with intermediate resistance to cefepime, ceftazidime, quinolones and Zosyn on prior CS) Urine culture: grew Stenotrophomonas maltophilia Given meropenem and fluconazole x2 days ID consulted Recommended Levaquin as above to complete 10-day course (discharging with 4 more days) Has ID follow up scheduled on 05/31/[address] showing possible chronic osteomyelitis No signs of active infection at the ulcer site on exam ID service consulted-treatment not indicated due to chronic nature Consider wound clinic follow up. 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 Pt scheduled with pcp on May 23. Pt missed pain management appointment while hospitalized. recurrent UTI secondary to neurogenic bladder with chronic indwelling suprapubic catheter, poor compliance with suprapubic catheter care and outpatient urology visits as per specialist documentation hypotension on midodrine HCV status post Rx chronic anemia, hemoglobin at baseline chronic sacral decubitus/leg osteomyelitis, not worsening as per patient chronic pain on narcotics anxiety/mood disorder, at baseline hx substance abuse as per records Possible functional disability ongoing tobacco abuse History of MRSA Total Time Total Time Spent Total Time Spent (In Minutes): 40 Discharge Plan Discharge Items Patient Disposition: Home - Home Health Services Reason For Visit: COPD EX, COMP UTI Discharge Diagnosis: ACUTE HYPOXIC RESPIRATORY FAILURE SECONDARY TO COPD EXACERBATION PNEUMONIA UTI Activity: Per Instructions section Non-emergency contact: Primary Care Provider Call non-emergency contact if: you have any medication questions and your symptoms worsen Follow-up/Referrals: Luz Sandoval DO [Outside Practitioners] - (Date & Time 05/23/2023 1:20 PM Provider Luz Sandoval DO Department Family [facility] ) Alexander Hill DO [Physician] - (Date & Time 05/31/2023 9:00 AM Provider Alexander Hill DO Department Infectious Disease [facility] [place] ) Diet: Regular Addtl Attending Provider Instructions: Follow up with your primary care doctor and infectious disease doctor. The appointment with your primary care doctor was scheduled for you for May 23. The appointment with infectious disease doctor was scheduled for you for May 31. To help with your breathing we are discharging you home with prednisone, antibiotics and recommend use of a nebulizer machine at home. We sent you albuterol medicine to use with your nebulizer machine. The antibiotics we are discharging you home with will also help treat your urinary tract infection. Since you missed your appointment with pain management, we are discharging you home with 5 days of pain medication until you follow up with your primary care care provider as scheduled on 05/23. It is very important that you follow up with a wound care clinic. It was a pleasure taking care of you during your time here. Pending Studies at Discharge: No Stand-Alone Forms: My [facility], Smoking Cessation Medications and DC Order Prescriptions: New prednisone 20 mg tablet 20 mg PO DAILY Qty: 10 0RF Rx Instructions: Take 2 tablets by mouth daily for 5 days oxycodone 15 mg tablet 15 mg PO Q6H Qty: 20 0RF Rx Instructions: Take 1 tablet every six hours NEEDED for SEVERE pain albuterol sulfate 2.5 mg /3 mL (0.083 %) solution for nebulization 1.25 mg inhalation Q8H PRN (Reason: bronchospasm) Qty: 90 0RF Advanced Probiotic 625 mg (10 billion cell) Capsule 2 cap PO DAILY 3 Days Qty: 6 0RF levofloxacin 750 mg Tablet 750 mg PO DAILY 4 Days Qty: 4 0RF Continued gabapentin 100 mg Capsule 200 mg PO TID Rx Instructions: 2 caps morning,noon and before bedtime famotidine 20 mg Tablet 20 mg PO AMHS ascorbic acid (vitamin C) [Vitamin C] 500 mg Tablet 500 mg PO QAM duloxetine 60 mg Capsule,Delayed Release(Dr/Ec) 60 mg PO QAM melatonin 3 mg Tablet 3 mg PO HS pantoprazole 40 mg Tablet,Delayed Release (Dr/Ec) 40 mg PO QAM ferrous sulfate 325 mg (65 mg iron) Tablet 325 mg PO QDB solifenacin 10 mg Tablet 10 mg PO QAM Myrbetriq 50 mg Tablet Extended Release 24 Hr 50 mg PO QAM celecoxib 200 mg Capsule 200 mg PO AMHS trazodone 50 mg Tablet 50 mg PO HS fluticasone propionate 100 mcg/actuation Blister With Device 1 inh INHALATION AMHS lidocaine 5 % Adhesive Patch,Medicated 1 patch TOPICAL DAILY Rx Instructions: leave on most painful area for up to 12 hrs lidocaine HCl [Lidocaine Viscous] 2 % Solution 5 ml PO ACHS PRN (Reason: as directed) Rx Instructions: swish and spit Santyl 250 unit/gram Ointment 1 applic TOPICAL DAILY Rx Instructions: apply to foot ulceractions and cover w/ dry bandage midodrine 10 mg Tablet 5 mg PO TID Rx Instructions: 1/2 tablet morning,noon,before bedtime Multivitamin W/Vitamin C Tablet,Chewable 1 tab PO DAILY diclofenac sodium [Voltaren] 1 % Gel 2 g TOPICAL QID Rx Instructions: apply to single elbow, wrist or hand; for hand includes palm/fingers/back of hand Anoro Ellipta 62.5-25 mcg/actuation Blister With Device 1 inh INHALATION QAM baclofen 10 mg Tablet 20 mg PO TID Rx Instructions: morning,noon,before bedtime apixaban 5 mg Tablet 5 mg PO AMHS polyethylene glycol 3350 [Miralax] 17 gram Powder In Packet 17 g PO AMHS Rx Instructions: mix in any 4-8 ounce beverage hold for loose stools oxybutynin chloride 10 mg Tablet Extended Release 24hr 10 mg PO QAM sennosides-docusate sodium 8.6-50 mg Tablet 2 tab-cap PO HS Rx Instructions: hold for loose stools potassium chloride 20 mEq Tablet,Er Particles/Crystals 20 meq PO AMHS acetaminophen 500 mg Tablet 500 mg PO .Q 4 HRS WHILE AWAKE Rx Instructions: use while awake oxycodone [Roxicodone] 15 mg Tablet 15 mg PO Q4H PRN (Reason: pain severe) bisacodyl 10 mg Suppository 10 mg [place] AMPM Rx Instructions: hold for loose stools hydroxyzine HCl 25 mg Tablet 25 mg PO QAM lactulose 20 gram/30 mL Solution 20 g PO TID Rx Instructions: 30 ml morning,noon and before bedtime Naloxone Hcl 4 Mg/0.1ml Liquid See Rx Instructions .ROUTE .COMPLEX Rx Instructions: administer 1 spray into 1 nostril for suspected opioid overdose. seek immediate medical attention Discontinued ciprofloxacin HCl 500 mg Tablet 500 mg PO AMHS Discharge Orders: Discharge Order (Routine); Ordered 05/21/23 Ordered By: Axel Mix Admission Data Admit Date/Time: 05/15/23 01:45 Attending Provider: Axel Mix Admit Provider: Corky Yadav Primary Care Provider: PCP,NO Other Providers: Corky Yadav ; Isauro Zapata ; Omero Rubio ; Chencho Miles I. ; Bishnu Kilgore II ; Abril Olivas ; Rafael Romero ; Alexander Hill ; Catalina Blanton ; Mike Chaidez ; Axel Mix Other Interventions: Discharge Summary Assessment (RN) Last Done: 05/19/23 14:32
--- NOTE | 2023-05-25 13:31 | Coding Query ---
CODING QUERY To promote full compliance with coding requirements relating to patient care, provider participation is requested in all cases of legal cashier uncertainty. Please assist us with the question(s) below: Coding Question(s): There is documentation of complicated UTI and the 05/16 Progress Note has an addendum with documentation of, "UTI in the setting of indwelling suprapubic catheter", and there is documentation in the record, as on the Discharge Summary of, "recurrent UTI secondary to neurogenic bladder with chronic indwelling suprapubic catheter, poor compliance with suprapubic catheter care and outpatient urology visits as per specialist documentation". Please specify below, in your clinical opinion, regarding the Complicated UTI in the setting of indwelling suprapubic catheter: ( ) Complicated UTI is likely due to Indwelling Suprapubic Catheter ( x) Complicated UTI is NOT likely due to Indwelling Suprapubic Catheter ( ) Complicated UTI- Other: Please Specify Physician's Response(s): Thank you Lili Chao Principal Diagnosis: "that condition established after study, to be chiefly responsible for occasioning the admission of the patient to the hospital for care." Co-Existing Principal Diagnosis: "when two or more diagnoses equally meet the criteria for principal diagnosis as determined by the circumstances of admission, diagnostic work up, and/or therapy provided, and the Alphabetic Index, Tabular List, or another coding guideline does not provide sequencing direction, any one of the diagnoses may be sequenced first." "When the physician has documented what appears to be a current diagnosis in the body of the record, but has not included the diagnosis in the final diagnostic statement, the physician should be asked whether the diagnosis should be added." ([facility] 2 QTR90. p3-4) ROGER
--- NOTE | 2023-05-25 13:58 | Coding Query ---
CODING QUERY To promote full compliance with coding requirements relating to patient care, provider participation is requested in all cases of manager recovery uncertainty. Please assist us with the question(s) below: Coding Question(s): Pneumonia is documented through the record, with the H&P documenting Possible Aspiration Pneumonia, and, "Meropenem for possible aspiration pneumonia resulting in COPD exacerbation", and the 05/16 Progress Note documents, "We will order speech therapy evaluation for possible component of aspiration pneumonia given paraplegia", and the Infectious Disease Consultation on 05/16 documents, "Concern for Aspiration PNA based on presentation". Pneumonitis and Pneumonia are continued in documentation after that but there is no further specification of Possible Aspiration Pneumonia. Please specify below, in your clinical opinion, regarding Possible Aspiration Pneumonia: ( x) Possible Aspiration Pneumonia was treated/monitored during this admission ( ) Possible Aspiration Pneumonia was Ruled-Out ( ) Other: Please Specify Physician's Response(s): Thank you Lili Chao Principal Diagnosis: "that condition established after study, to be chiefly responsible for occasioning the admission of the patient to the hospital for care." Co-Existing Principal Diagnosis: "when two or more diagnoses equally meet the criteria for principal diagnosis as determined by the circumstances of admission, diagnostic work up, and/or therapy provided, and the Alphabetic Index, Tabular List, or another coding guideline does not provide sequencing direction, any one of the diagnoses may be sequenced first." "When the physician has documented what appears to be a current diagnosis in the body of the record, but has not included the diagnosis in the final diagnostic statement, the physician should be asked whether the diagnosis should be added." ([facility] 2 QTR90. p3-4) ROGER
== END 2023-05-21 15:04 | disposition home health service (06) | DRG 177 ==
LOC: ED 19:14 → 2N 05-15 01:45 → SUATTDRO 05-15 01:45 → 2N 05-15 04:08

== ENCOUNTER 2023-06-19 16:28 | Inpatient (IN) ==
--- NOTE | 2023-06-19 16:56 | ED Triage Note ---
Date of Service June 19, 2023 History of Present Illness This patient was briefly evaluated while in triage. An abbreviated physical exam was performed. This patient is a 47-year-old Male who presents to the ED for evaluation of worsening decubitus ulcers. History of paraplegia. Niece reports increasing drainage and odor when doing dressing changes today. Patient denies fever/chills, nausea/vomiting. Physical Exam Constitutional: alert and oriented x3. no acute distress. nontoxic. lethargic. Vital signs demonstrate hypotensive 75/56 and bradycardic 50bmp HEENT: normocephalic, atraumatic. normal conjunctiva.PERRLA. EOM's grossly intact. Respiratory: lungs are clear to auscultation without wheezes, rhonchi, or rales bilaterally. equal chest rise. normal respiratory effort, no accessory muscle use. Cardiovascular: normal heart sounds without murmur. regular rate and rhythm. GI: abdomen is soft, nontender. No palpable masses. No rebound tenderness or guarding. Psych:appropriate mood and affect. Initial orders for labs and / or imaging were placed and patient was taken to treatment room immediately for evaluation. Please see further documentation for the full ED course.
[2023-06-19] MEDS ORDERED: CEFEPIME 2,000 MG/20 ML VIAL IV STA (17:16)
[2023-06-19] MEDS ORDERED: ONDANSETRON INJ 2 MG/ML 2 ML VIAL IV STA (17:27)
[2023-06-19] MEDS ORDERED: fentaNYL citrate PF 100 MCG/2 ML VIAL IV STA (17:27)
--- NOTE | 2023-06-19 17:27 | Emergency Department Note ---
Impression & Plan Sepsis, Complicated UTI (urinary tract infection), Abdominal pain, Sacral decubitus ulcer, stage IV ED Provider Note NAME: NEHEMIAS SANTOS AGE: 47 SEX: Male INFORMANT: Patient and family ED PROVIDER(S): Ke Campbell MD CHIEF COMPLAINT: Abdominal pain and UTI PLAN: Disposition: Admitted Outpatient prescription management: none Referral: None MEDICAL DECISION MAKING: Patient presented to emergency department with concerns about abdominal pain UTI. His history is concerning from his paraplegia and multiple UTIs in the past. Patient was hypotensive. He was exhibiting signs of sepsis. Blood work including cultures were performed. Urinalysis done. Patient was treated with IV fentanyl, saline hydration, and broad-spectrum antibiotics. I did culture his sacral wound. CT imaging was performed. He has cystitis present on CT imaging as well as what looks like osteomyelitis of the sacrum. The patient was noted to have a leukocytosis. Lactate was normal. Monitor of his chemistries were unremarkable. Patient did improve his blood pressure. He did request additional pain medication was treated with IV Dilaudid. Further management in the hospital will be necessary. Consultation was made with [facility] service. Patient was evaluated in the ER admitted for further management. Care/management discussed with: manager wealth management Level of care consideration(s): After review of the information above and other included data, I feel the patient requires escalation of care to admission. Triage Nursing notes: reviewed and agree them. Vital Signs: reviewed and remarkable for hypertension Additional History obtained from: Family Chronic Medical/Social Conditions affecting care: Paraplegia Prior/ Outside/ External records reviewed: Obtain records from the [facility] visit. Patient did have urine culture performed there. This did not reveal any specific growth. Differential Diagnosis: Sepsis, UTI, pneumonia, metabolic, electrolyte abnormalities, cardiac sources, intracerebral event, toxicologic, neurologic, as well as other pathologies. Diagnostics, independently interpreted by me: ECG: Twelve-lead ECG was sinus bradycardia [address] elevation or depression. Cardiac Monitoring: Cardiac monitoring ordered by me: The patient was placed on continuous cardiac monitoring and observed. It revealed a sinus bradycardic rhythm at 54 bpm. Medical decision rules: none Imaging studies: CT scan of the abdomen pelvis as above. Osteomyelitis and cystitis. Chest x-ray. Findings: A chest x-ray was performed and revealed no pneumothorax, effusion, infiltrate, pulmonary edema, free air under the diaphragm, or wide mediastinum. Impression: No acute disease. HPI: 47 year old Male arrives for evaluation of abdominal pain and UTI. Patient has history of paraplegia. He has frequent complicated UTIs. He has an indwelling suprapubic Sanchez catheter. Patient states he was seen at [facility] twice this week and was started on Bactrim. He is 1 day away from finishing. He had increased abdominal pain. He also noted foul-smelling discharge from his sacral wound. Family is present and helps with history. Pain is rated 10. Pt denies LOC, headache, fevers, chills, diaphoresis, visual changes, neck pain, chest pain, breathing difficulties, nausea, vomiting, back pain, melena, hematochezia, lymphadenopathy, rash, or other complaints. PAST MEDICAL HISTORY: See Below, paraplegia, complicated UTI, osteomyelitis PAST SURGICAL HISTORY: See Below, SOCIAL HISTORY: See Below, disabled HOME MEDICATIONS: See Below ALLERGIES: See Below VITALS: See Below PHYSICAL EXAMINATION: GENERAL: Awake, -appearing, in no distress HENT: Normocephalic, atraumatic. Oropharynx unremarkable. EYES: Normal conjunctiva. Sclera non-icteric. NECK: Inspection normal. Non-tender. Supple. No nuchal rigidity. FROM. No masses. RESPIRATORY: Clear to auscultation. No wheezes. No rales. Normal respiratory effort. CARDIAC: Bradycardia rate. Normal rhythm. No murmurs. No rubs. Extremities warm and well perfused. Pulses equal. No JVD. GI: Soft, non-distended. No tenderness to palpation. No rebound or guarding. No masses. RECTAL: There is a large stage IV sacral decubitus noted. Foul-smelling discharge. MUSCULOSKELETAL: Generalized muscular atrophy present. Chest examination reveals no tenderness. The back is symmetrical on inspection without obvious abnormality. There is no CVA tenderness to palpation. No joint edema. LOWER EXTREMITIES: Calves are equal size bilaterally and non-tender. No edema. No discoloration. NEURO: Normal sensorium. Paralyzed lower extremities. Patient has contractures of the upper extremities but does have some minimal movement. SKIN: Mild ulcerations on the lower extremities. No cellulitis rash or jaundice noted. PROCEDURES: none CRITICAL CARE: I have personally spent 30 minutes of critical care time in the direct management of this patient. This includes bedside care, interpretation of diagnostic studies, and testing, discussion with consultants, patient, and family members, and other required patient management activities. This 30 minutes is in excess of all separately billable procedures. 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 Beliefs That Will Affect Care: None Current Living Situation: Alone and Family Feels Safe at Home: Yes Safety Concerns: Feels Safe At This Time Assistive Devices: Wheelchair Allergies Allergies Allergy/AdvReac Type Severity Reaction Status Date / Time No Known Allergies Allergy Verified 06/19/23 19:34 Home Meds Home Medications Medication Instructions Recorded Confirmed Naloxone Hcl 4 Mg/0.1ml Liquid See Rx Instructions .Route 05/15/23 06/19/23 .COMPLEX PRN Opioid Overdose acetaminophen 500 mg tablet 500 mg PO .Q 4 HRS WHILE AWAKE 05/15/23 06/19/23 apixaban 5 mg tablet 5 mg PO AMHS 05/15/23 06/19/23 ascorbic acid (vitamin C) 500 mg 500 mg PO QAM 05/15/23 06/19/23 tablet (Vitamin C) baclofen 10 mg tablet See Rx Instructions .Route .COMPLEX 05/15/23 06/19/23 bisacodyl 10 mg rectal suppository 10 mg TX AMPM 05/15/23 06/19/23 celecoxib 200 mg capsule 200 mg PO AMHS 05/15/23 06/19/23 collagenase clostridium histo. 250 1 applic topical DAILY 05/15/23 06/19/23 unit/gram topical ointment (Santyl) diclofenac sodium 1 % topical gel 2 g topical QID 05/15/23 06/19/23 duloxetine 60 mg capsule,delayed 60 mg PO QAM 05/15/23 06/19/23 release famotidine 20 mg tablet 20 mg PO AMHS 05/15/23 06/19/23 ferrous sulfate 325 mg (65 mg 325 mg PO QDB 05/15/23 06/19/23 iron) tablet fluticasone propionate 100 1 inh inhalation AMHS 05/15/23 06/19/23 mcg/actuation blister powder for inhalation hydroxyzine HCl 25 mg tablet 25 mg PO QAM 05/15/23 06/19/23 lactulose 20 gram/30 mL oral 20 g PO TID 05/15/23 06/19/23 solution lidocaine 5 % topical patch 1 patch topical DAILY 05/15/23 06/19/23 lidocaine HCl 2 % mucosal solution 5 ml PO ACHS PRN as directed 05/15/23 06/19/23 (Lidocaine Viscous) melatonin 3 mg tablet 3 mg PO HS 05/15/23 06/19/23 midodrine 10 mg tablet 5 mg PO TID 05/15/23 06/19/23 mirabegron 50 mg tablet,extended 50 mg PO QAM 05/15/23 06/19/23 release 24 hr (Myrbetriq) multivitamin 1 tab PO DAILY 05/15/23 06/19/23 oxybutynin chloride 10 mg 10 mg PO QAM 05/15/23 06/19/23 tablet,extended release 24 hr pantoprazole 40 mg tablet,delayed 40 mg PO QAM 05/15/23 06/19/23 release polyethylene glycol 3350 17 gram 17 g PO AMHS 05/15/23 06/19/23 oral powder packet (Miralax) potassium chloride 20 mEq 20 meq PO AMHS 05/15/23 06/19/23 tablet,extended release(part/cryst) sennosides 8.6 mg-docusate sodium 2 tab-cap PO HS 05/15/23 06/19/23 50 mg tablet solifenacin 10 mg tablet 10 mg PO QAM 05/15/23 06/19/23 trazodone 50 mg tablet 50 mg PO HS 05/15/23 06/19/23 umeclidinium 62.5 mcg-vilanterol 1 inh inhalation QAM 05/15/23 06/19/23 25 mcg/actuation powdr for inhalation (Anoro Ellipta) Unknown "Water" Pill 1 dose PO QAM 06/19/23 06/19/23 gabapentin 300 mg capsule 300 mg PO TID 06/19/23 06/19/23 Previous Rx's Medication Instructions Recorded albuterol sulfate 2.5 mg/3 mL 1.25 mg (1.5 mL) inhalation Q8H 05/19/23 (0.083 %) solution for nebulization PRN bronchospasm #90 mL prednisone 20 mg tablet 20 mg PO DAILY #10 tabs 05/19/23 Results & Data (ED) Vital Signs Vital Signs - 24 hr 06/19/23 16:57 06/19/23 17:26 06/19/23 17:26 Temperature 35.8 C L Temperature Source Temporal Artery Scan Pulse Rate 49 L 47 L Pulse Rate [Apical] 45 L Pulse Rate from SpO2 Sensor Pulse Rhythm Regular Pulse Rhythm [Apical] Respiratory Rate 18 20 22 Respiratory Effort / Characteristics Non-Labored Respiratory Depth Normal Normal Blood Pressure 75/56 L Blood Pressure [Right Arm] 87/84 L Blood Pressure Mean 62 Blood Pressure Mean [Right Arm] 85 Blood Pressure Position [Right Arm] Sitting Pulse Oximetry 96 96 96 Oxygen Delivery Method Room Air Room Air Room Air Sepsis Recent Fever Within 48 Hours No Sepsis New/Unexplained Change in Mental Status No Sepsis Action Taken by Nursing Adv Provider Notified 06/19/23 17:34 06/19/23 17:43 06/19/23 17:45 Temperature Temperature Source Pulse Rate 47 L 44 L 74 Pulse Rate [Apical] Pulse Rate from SpO2 Sensor 49 L Pulse Rhythm Pulse Rhythm [Apical] Respiratory Rate 18 27 H Respiratory Effort / Characteristics Respiratory Depth Blood Pressure Blood Pressure [Right Arm] Blood Pressure Mean Blood Pressure Mean [Right Arm] Blood Pressure Position [Right Arm] Pulse Oximetry 96 Oxygen Delivery Method Room Air Sepsis Recent Fever Within 48 Hours Sepsis New/Unexplained Change in Mental Status Sepsis Action Taken by Nursing 06/19/23 18:12 06/19/23 18:14 06/19/23 18:14 Temperature Temperature Source Pulse Rate 59 L 58 L Pulse Rate [Apical] Pulse Rate from SpO2 Sensor 58 L Pulse Rhythm Pulse Rhythm [Apical] Respiratory Rate 14 15 Respiratory Effort / Characteristics Respiratory Depth Blood Pressure 82/52 L Blood Pressure [Right Arm] Blood Pressure Mean 63 Blood Pressure Mean [Right Arm] Blood Pressure Position [Right Arm] Pulse Oximetry 95 Oxygen Delivery Method Room Air Sepsis Recent Fever Within 48 Hours Sepsis New/Unexplained Change in Mental Status Sepsis Action Taken by Nursing 06/19/23 18:15 06/19/23 18:27 06/19/23 18:44 Temperature Temperature Source Pulse Rate 53 L Pulse Rate [Apical] 59 L Pulse Rate from SpO2 Sensor 54 L Pulse Rhythm Pulse Rhythm [Apical] Respiratory Rate 14 20 Respiratory Effort / Characteristics Non-Labored Respiratory Depth Normal Blood Pressure Blood Pressure [Right Arm] 82/52 L 97/59 L Blood Pressure Mean Blood Pressure Mean [Right Arm] 62 71 Blood Pressure Position [Right Arm] Sitting Sitting Pulse Oximetry 95 96 Oxygen Delivery Method Room Air Room Air Sepsis Recent Fever Within 48 Hours Sepsis New/Unexplained Change in Mental Status Sepsis Action Taken by Nursing 06/19/23 19:18 Temperature Temperature Source Pulse Rate Pulse Rate [Apical] 53 L Pulse Rate from SpO2 Sensor Pulse Rhythm Pulse Rhythm [Apical] Regular Respiratory Rate 18 Respiratory Effort / Characteristics Non-Labored Respiratory Depth Normal Blood Pressure Blood Pressure [Right Arm] 109/72 Blood Pressure Mean Blood Pressure Mean [Right Arm] 84 Blood Pressure Position [Right Arm] Sitting Pulse Oximetry 96 Oxygen Delivery Method Room Air Sepsis Recent Fever Within 48 Hours Sepsis New/Unexplained Change in Mental Status Sepsis Action Taken by Nursing Laboratory Data 06/19/23 17:35 06/19/23 17:35 Lab Results 06/19/23 Range/Units 17:35 WBC 12.22 H (4.8-10.8) K/ul RBC 4.90 (4.70-6.10) M/uL Hgb 13.1 L (14.0-18.0) g/dl Hct 40.9 L (42.0-52.0) % MCV 83.5 (80.0-100.0) fL MCH 26.7 (25.0-34.0) pg MCHC 32.0 (32.0-36.0) g/dL RDW Std Deviation 56.9 H (36.4-46.3) fL RDW Coeff of Adelia 18.7 H (11.5-14.5) % Plt Count 353 (130-400) K/uL MPV 9.7 (9.4-12.4) fL Immature Gran % (Auto) 0.3 % Neut % (Auto) 78.5 % Lymph % (Auto) 12.5 % [place] % (Auto) 6.2 % Eos % (Auto) 1.8 % Baso % (Auto) 0.7 % Neut # (Auto) 9.58 H (1.40-6.50) K/uL Lymph # (Auto) 1.53 (1.20-3.40) K/uL [place] # (Auto) 0.76 H (0.11-0.59) K/uL Eos # (Auto) 0.22 (0.00-0.50) K/uL Baso # (Auto) 0.09 (0.00-0.20) K/uL Immature Gran # (Auto) 0.04 (0.01-0.20) K/uL Sodium 136 (136-145) mmol/L Potassium 3.4 L (3.5-5.1) mmol/L Chloride 103 (98-107) mmol/L Carbon Dioxide 28 (21-32) mmol/L Anion Gap 5 (3-11) BUN 10 (6-23) mg/dl Creatinine 0.59 L (0.6-1.4) mg/dl Est Cr Clr Drug Dosing 178.7 ml/min Est GFR ( Amer) 140.7 ml/min Est GFR (Non-Af Amer) 121.4 ml/min BUN/Creatinine Ratio 16.9 (10-20) Glucose 119 H (70-99(Fasting)) mg/dl Lactate 1.1 (0.4-2.0) mmol/L Calcium 9.7 (8.6-10.3) mg/dl Total Bilirubin 0.4 (0.2-1.0) mg/dl AST 14 (13-39) U/L ALT 7 (7-52) U/L Alkaline Phosphatase 137 H (34-104) U/L Troponin I High Sens 3.8 (0-20) pg/ml Total Protein 6.6 (6.0-8.3) gm/dl Albumin 3.7 (3.4-5.0) gm/dl Globulin 2.9 (2.5-4.0) gm/dl Albumin/Globulin Ratio 1.3 (0.9-2) Lipase 20 (11-82) U/L Urine Color Yellow Urine Appearance Turbid A (Clear) Urine pH 6.5 (4.5-7.5) Ur Specific [place] 1.019 (1.000-1.030) Urine Protein 1+ H (Negative) Urine Glucose (UA) Negative (Negative) Urine Ketones Negative (Negative) Urine Blood 2+ H (Negative) Urine Nitrite Negative (Negative) Urine Bilirubin Negative (Negative) Urine Urobilinogen Negative (Negative) Ur Leukocyte Esterase 2+ H (Negative) Urine WBC (Auto) >30 H (0-5) /hpf Urine RBC (Auto) 10-30 H (0-4) /hpf U Hyaline Cast (Auto) 5-10 H (0-5) /lpf U Epithel Cells (Auto) 5-10 H (0-5) /lpf Urine Bacteria (Auto) Negative (Negative) Urine Crystals Not Reportable Urine Yeast Budding w/ Hyphae A (None Prsent) Administered Medications Sodium Chloride (Nss) 1,000 mls @ 125 mls/hr IV .Q8H ROSALES Stop: 07/19/23 23:41 Last Admin: 06/20/23 00:40 Dose: 125 mls/hr Documented By: TMGuru Discontinued Medications Fentanyl Citrate (Fentanyl Citrate Pf 100 Mcg/2 Ml Vial) 50 mcg IV NOW STA Stop: 06/19/23 17:28 Last Admin: 06/19/23 17:35 Dose: 50 mcg Documented By: BANDAR Hydromorphone HCl (Hydromorphone Inj 0.5 Mg/0.5 Ml Syr) 0.5 mg IV NOW STA Stop: 06/19/23 19:45 Last Admin: 06/19/23 19:47 Dose: 0.5 mg Documented By: BANDAR Hydromorphone HCl (Hydromorphone Inj 0.5 Mg/0.5 Ml Syr) 0.5 mg IV NOW STA Stop: 06/19/23 21:59 Last Admin: 06/19/23 22:03 Dose: 0.5 mg Documented By: BANDAR Sodium Chloride (Nss) 1,000 mls @ 999 mls/hr IV .Q1H1M ROSALES Stop: 06/19/23 19:15 Last Infusion: 06/19/23 19:57 Dose: Infused Documented By: Admin: 06/19/23 18:44 Dose: 999 mls/hr Documented By: Infusion: 06/19/23 18:39 Dose: Infused Documented By: Admin: 06/19/23 17:31 Dose: 999 mls/hr Documented By: BANDAR Cefepime HCl (Maxipime) 2,000 mg in 20 mls @ 5 mls/min IV NOW STA; Protocol Stop: 06/19/23 17:19 Last Admin: 06/19/23 17:35 Dose: 5 mls/min Documented By: BANDAR Daptomycin 425 mg/ Syringe 8.5 mls @ 4.25 mls/min IV Q24H [facility]; Protocol Stop: 06/21/23 17:29 Last Admin: 06/19/23 18:39 Dose: 4.25 mls/min Documented By: MMG Ondansetron HCl (Ondansetron Inj 2 Mg/Ml 2 Ml Vial) 4 mg IV NOW STA Stop: 06/19/23 17:28 Last Admin: 06/19/23 17:35 Dose: 4 mg Documented By: MMG Imaging Data Radiologist's Impression: Chest X-Ray 06/19/23 16:57 XR chest 1V portable HISTORY: sepsis COMPARISON: Chest 05/20/2023. FINDINGS: No pneumothorax. No pleural effusions. The cardiac silhouette is mildly enlarged. This is similar to the prior study. Left basilar linear densities favor subsegmental atelectasis or scarring. Otherwise, lungs are clear. Cervical spinal fusion hardware is noted. No evidence for pulmonary edema. IMPRESSION: No acute process. ACT 112: Negative or not required by law. Electronically signed by: Zeeshan Mejia M.D. 06/19/2023 7:38 PM Abdomen/Pelvis CT 06/19/23 17:[address] WITHOUT CONTRAST CT DOSE: 1383.87 mGy.cm HISTORY: abd pain, uti TECHNIQUE: Multiaxial CT images of the abdomen and pelvis were performed without contrast. A dose lowering technique was utilized adhering to the principles of ALARA. COMPARISON STUDY: Abdomen and pelvis CT 05/14/2023. FINDINGS: Bibasilar linear densities consistent with scarring or subsegmental atelectasis. No pneumoperitoneum. No pneumatosis. There is a 2.5 cm sacral decubitus ulcer again noted which extends to the distal sacrum. There is chronic erosion/destruction of the distal sacrum with residual sclerosis. This is similar to the prior study and favors a chronic osteomyelitis. Fixation hardware seen within the bilateral forearms. Cholecystectomy. The unenhanced liver, spleen, adrenal glands, and pancreas are unremarkable. Bilateral nephrolithiasis again noted. Dominant stone within the left kidney measures 7 mm. No ureteral stones. No hydronephrosis. No retroperitoneal lymphadenopathy. Normal caliber abdominal aorta. No pelvic lymphadenopathy or pelvic free fluid. The bladder is decompressed by suprapubic catheter which appears in good position. Moderate bladder wall thickening and adjacent fat stranding persists suboptimal evaluation for bowel pathology due to the lack of intravenous and oral contrast. However, there is no definite bowel wall thickening or obstruction. Moderate fecal retention. IMPRESSION: 1. A suprapubic catheter appears in good position. Moderate bladder wall thickening again noted. This may represent a cystitis. Recommend correlation with urinalysis. 2. No bowel wall thickening or obstruction. 3. Bilateral nephrolithiasis. No ureteral stones. No hydronephrosis. 4. Sacral decubitus ulcer again noted with chronic erosion/destruction of the distal sacrum. This is similar to the prior study and favors a chronic osteomyelitis. ACT 112: Negative or not required by law. Electronically signed by: Zeeshan Mejia M.D. 06/19/2023 7:17 PM Discharge Plan Visit Data Chief Complaint: Abdominal Pain Stated Complaint: ABD PAIN ED Provider: Ke Campbell Discharge Problem: Sepsis, Complicated UTI (urinary tract infection), Abdominal pain, Sacral decubitus ulcer, stage IV Patient Disposition: Admitted As Inpatient Discharge Instructions Interventions: ED Discharge Assessment Last Done: 06/19/23 23:00
[2023-06-19] MEDS ORDERED: DAPTOmycin 425 MG in SYRINGE 0 ML IV SCH (17:30)
[2023-06-19] MEDS: SODIUM CHLORIDE 0.9% 1,000 ML IV SCH ×2 (17:31→18:44)
[2023-06-19 17:59] LABS: Appearance Urine Turbid (Clear); Bacteria Urine Automated Negative (Negative); Bilirubin Urine Negative (Negative); Blood Urine 2+ (Negative); Color Urine Yellow; Glucose Urine UA Negative (Negative); Ketones Urine Negative (Negative); Leukocyte Esterase Urine 2+ (Negative); Nitrite Urine Negative (Negative); Protein Urine 1+ (Negative); Specific Gravity Urine 1.019 (1.000-1.030); Urobilinogen Urine Negative (Negative); WBC Urine Automated >30 /hpf (0-5); pH Urine 6.5 (4.5-7.5)
[2023-06-19 18:09] LABS: Basophils # (auto) 0.09 K/uL (0.00-0.20); Basophils % (auto) 0.7 %; Eosinophils # (auto) 0.22 K/uL (0.00-0.50); Eosinophils % (auto) 1.8 %; Hematocrit (blood only) 40.9 % (42.0-52.0); Hemoglobin 13.1 g/dl (14.0-18.0); Immature Granulocytes # (auto) 0.04 K/uL (0.01-0.20); Immature Granulocytes % (auto) 0.3 %; Lymphocytes # (auto) 1.53 K/uL (1.20-3.40); Lymphocytes % (auto) 12.5 %; Mean Corpuscular Hemoglobin 26.7 pg (25.0-34.0); Mean Corpuscular Volume 83.5 fL (80.0-100.0); Mean Platelet Volume 9.7 fL (9.4-12.4); Monocytes # (auto) 0.76 K/uL (0.11-0.59); Monocytes % (auto) 6.2 %; Neutrophils # (auto) 9.58 K/uL (1.40-6.50); Neutrophils % (auto) 78.5 %; Platelet Count 353 K/uL (130-400); RDW Coefficient of Variation 18.7 % (11.5-14.5); RDW Standard Deviation 56.9 fL (36.4-46.3); White Blood Count 12.22 K/ul (4.8-10.8)
[2023-06-19 18:15] LABS: Albumin Globulin Ratio 1.3 (0.9-2); Albumin Level 3.7 gm/dl (3.4-5.0); BUN Creatinine Ratio 16.9 (10-20); Bilirubin,Total 0.4 mg/dl (0.2-1.0); Calcium 9.7 mg/dl (8.6-10.3); Creatinine Clr Calc Pharmacy 178.7 ml/min; Est GFR (African American) 140.7 ml/min; Est GFR (Non-African American) 121.4 ml/min; Globulin 2.9 gm/dl (2.5-4.0); Potassium 3.4 mmol/L (3.5-5.1); Total Protein 6.6 gm/dl (6.0-8.3)
[2023-06-19 18:21] LABS: Troponin I High Sensitivity 3.8 pg/ml (0-20)
--- NOTE | 2023-06-19 19:19 | CT Scan Report ---
ABDOMEN AND PELVIS CT WITHOUT CONTRAST CT DOSE: 1383.87 mGy.cm HISTORY: abd pain, uti TECHNIQUE: Multiaxial CT images of the abdomen and pelvis were performed without contrast. A dose lo wering technique was utilized adhering to the principles of ALARA. COMPARISON STUDY: Abdomen and pelvis CT 05/14/2023. FINDINGS: Bibasilar linear densities consistent with scarring or subsegmental atelectasis. No pneumop eritoneum. No pneumatosis. There is a 2.5 cm sacral decubitus ulcer again noted which extends to the distal sacrum. There is chronic erosion/destruction of the distal sacrum with residual sclerosis. Thi s is similar to the prior study and favors a chronic osteomyelitis. Fixation hardware seen within the bilateral forearms. Cholecystectomy. The unenhanced liver, spleen, adrenal glands, and pancreas are unremarkable. Bilateral nephrolithiasis again noted. Dominant stone within the left kidney measures 7 mm. No ureteral stones. No hydronephrosis. No retroperitoneal lymphadenopathy. Normal caliber abdomi nal aorta. No pelvic lymphadenopathy or pelvic free fluid. The bladder is decompressed by suprapubic catheter which appears in good position. Moderate bladder wall thickening and adjacent fat stranding persists suboptimal evaluation for bowel pathology due to the lack of intravenous and oral contrast. However, there is no definite bowel wall thickening or obstruction. Moderate fecal retention. IMPRESSION: 1. A suprapubic catheter appears in good position. Moderate bladder wall thickening again noted. This may represent a cystitis. Recommend correlation with urinalysis. 2. No bowel wall thickening or obstruction. 3. Bilateral nephrolithiasis. No ureteral stones. No hydronephrosis. 4. Sacral decubitus ulcer again noted with chronic erosion/destruction of the distal sacrum. This is similar to the prior study and favors a chronic osteomyelitis. ACT 112: Negative or not required by law. Electronically signed by: Zeeshan Mejia M.D. 06/19/2023 7:17 PM
--- NOTE | 2023-06-19 19:40 | XRay Report ---
XR chest 1V portable HISTORY: sepsis COMPARISON: Chest 05/20/2023. FINDINGS: No pneumothorax. No pleural effusions. The cardiac silhouette is mildly enlarged. This is s imilar to the prior study. Left basilar linear densities favor subsegmental atelectasis or scarring. Otherwise, lungs are clear. Cervical spinal fusion hardware is noted. No evidence for pulmonary edema . IMPRESSION: No acute process. ACT 112: Negative or not required by law. Electronically signed by: Zeeshan Mejia M.D. 06/19/2023 7:38 PM
[2023-06-19] MEDS ORDERED: HYDROmorphone INJ 0.5 MG/0.5 ML SYR IV STA ×2 (19:44→21:58)
--- NOTE | 2023-06-19 21:14 | History & Physical Report ---
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 Sepsis Elevated white count Hypotension Lactic acid okay Complicated UTI Infected sacral decubitus ulcers Recent MRI done in [facility] showed S3 vertebral body osteomyelitis ER started IV daptomycin and cefepime which will be continued IV normal at 125 mill per hour Close monitor hemodynamics Monitoring telemetry floor ID consult Wound care follow cultures close monitor. 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 Patient was in [facility] recently where he was discharged on Cipro for UTI and also his MRI scan showed sacral osteomyelitis looks like ER discussed with ID. Patient states he has 1 more day of Cipro but is not feeling well so he came here. When he came here was hypotensive and with the fluid boluses blood pressure improved., Currently no headache. Vision is okay. No runny nose no sore throat. No cough currently. Denies any chest pain or shortness of breath. Was nauseous. Patient is quadriplegic and bedbound. He states he has 24 hours care at home. Past medical history as mentioned above. Surgical History : Ankle surgery, neck surgery, urologic procedures, arm surgery, appendectomy Social history : 2 packs daily, occasional EtOH intake, disabled Family History : Heart disease Allergies Allergy/AdvReac Type Severity Reaction Status Date / Time No Known Allergies Allergy Verified 06/19/23 19:34 Home Medications Medication Instructions Recorded Confirmed Type Naloxone Hcl 4 Mg/0.1ml Liquid See Rx Instructions .Route 05/15/23 06/19/23 History .COMPLEX PRN Opioid Overdose acetaminophen 500 mg tablet 500 mg PO .Q 4 HRS WHILE AWAKE 05/15/23 06/19/23 History apixaban 5 mg tablet 5 mg PO AMHS 05/15/23 06/19/23 History ascorbic acid (vitamin C) 500 mg 500 mg PO QAM 05/15/23 06/19/23 History tablet (Vitamin C) baclofen 10 mg tablet See Rx Instructions .Route .COMPLEX 05/15/23 06/19/23 History bisacodyl 10 mg rectal suppository 10 mg SC AMPM 05/15/23 06/19/23 History celecoxib 200 mg capsule 200 mg PO AMHS 05/15/23 06/19/23 History collagenase clostridium histo. 250 1 applic topical DAILY 05/15/23 06/19/23 History unit/gram topical ointment (Santyl) diclofenac sodium 1 % topical gel 2 g topical QID 05/15/23 06/19/23 History duloxetine 60 mg capsule,delayed 60 mg PO QAM 05/15/23 06/19/23 History release famotidine 20 mg tablet 20 mg PO AMHS 05/15/23 06/19/23 History ferrous sulfate 325 mg (65 mg 325 mg PO QDB 05/15/23 06/19/23 History iron) tablet fluticasone propionate 100 1 inh inhalation AMHS 05/15/23 06/19/23 History mcg/actuation blister powder for inhalation hydroxyzine HCl 25 mg tablet 25 mg PO QAM 05/15/23 06/19/23 History lactulose 20 gram/30 mL oral 20 g PO TID 05/15/23 06/19/23 History solution lidocaine 5 % topical patch 1 patch topical DAILY 05/15/23 06/19/23 History lidocaine HCl 2 % mucosal solution 5 ml PO ACHS PRN as directed 05/15/23 06/19/23 History (Lidocaine Viscous) melatonin 3 mg tablet 3 mg PO HS 05/15/23 06/19/23 History midodrine 10 mg tablet 5 mg PO TID 05/15/23 06/19/23 History mirabegron 50 mg tablet,extended 50 mg PO QAM 05/15/23 06/19/23 History release 24 hr (Myrbetriq) multivitamin 1 tab PO DAILY 05/15/23 06/19/23 History oxybutynin chloride 10 mg 10 mg PO QAM 05/15/23 06/19/23 History tablet,extended release 24 hr pantoprazole 40 mg tablet,delayed 40 mg PO QAM 05/15/23 06/19/23 History release polyethylene glycol 3350 17 gram 17 g PO AMHS 05/15/23 06/19/23 History oral powder packet (Miralax) potassium chloride 20 mEq 20 meq PO AMHS 05/15/23 06/19/23 History tablet,extended release(part/cryst) sennosides 8.6 mg-docusate sodium 2 tab-cap PO HS 05/15/23 06/19/23 History 50 mg tablet solifenacin 10 mg tablet 10 mg PO QAM 05/15/23 06/19/23 History trazodone 50 mg tablet 50 mg PO HS 05/15/23 06/19/23 History umeclidinium 62.5 mcg-vilanterol 1 inh inhalation QAM 05/15/23 06/19/23 History 25 mcg/actuation powdr for inhalation (Anoro Ellipta) albuterol sulfate 2.5 mg/3 mL 1.25 mg (1.5 mL) inhalation Q8H 05/19/23 06/19/23 Rx (0.083 %) solution for nebulization PRN bronchospasm #90 mL prednisone 20 mg tablet 20 mg PO DAILY #10 tabs 05/19/23 06/19/23 Rx Unknown "Water" Pill 1 dose PO QAM 06/19/23 06/19/23 History gabapentin 300 mg capsule 300 mg PO TID 06/19/23 06/19/23 History Past Med/Surg History Social History Smoking Status: Heavy tobacco smoker Tobacco Type: Cigarettes Cigarettes Per Day: 40; Second Hand Exposure: Yes; Do You Dip or Chew Tobacco: No; Tobacco Cessation Education Requested by Patient: No Hx Alcohol Use: Yes Alcohol type: beer Hx Substance Use: Yes Last Used Substance: Unknown Preferred Language: Hungarian Communication Ability: Effective Respiratory Therapy Technician Required: No Beliefs That Will Affect Care: None Current Living Situation: Alone and Family Feels Safe at Home: Yes Safety Concerns: Feels Safe At This Time Assistive Devices: Wheelchair Review of Systems Review of Systems: All systems reviewed & are unremarkable except as noted in HPI & below Physical Exam Physical Exam: General- Not in distress Head- atraumatic Eyes- PERRL. ENT- oropharynx clear. Poor dentition. Neck- supple, no JVD Lungs- clear to auscultation no wheezing or crackles Heart- regular rhythm; no murmur, no gallop. Abdomen- normal bowel sounds, soft, nontender, no distension.Suprapubic cath site wetness seen Extremities- no pretibial edema, no erythema seen. Neuro- alert, oriented x 3; PERRL, no facial palsy; no dysarthria; quadriplegia. cannot move fingers in upper extremity Skin. Stage IV sacral decubitus ulcer Results & Data Results & Data Vital Signs (Past 12 Hours) Vital Signs Temp Pulse Pulse Resp BP BP Pulse Ox 06/19/23 19:18 53 L 18 109/72 96 06/19/23 18:44 97/59 L 06/19/23 18:27 59 L 20 82/52 L 96 06/19/23 18:15 53 L 14 95 06/19/23 18:14 82/52 L 06/19/23 18:14 58 L 15 95 06/19/23 18:12 59 L 14 06/19/23 17:45 74 27 H 96 06/19/23 17:43 44 L 06/19/23 17:34 47 L 18 06/19/23 17:26 47 L 22 96 06/19/23 17:26 45 L 20 87/84 L 96 06/19/23 16:57 35.8 C L 49 L 18 75/56 L 96 O2 Del Method 06/19/23 19:18 Room Air 06/19/23 18:44 06/19/23 18:27 Room Air 06/19/23 18:15 Room Air 06/19/23 18:14 06/19/23 18:14 Room Air 06/19/23 18:12 06/19/23 17:45 Room Air 06/19/23 17:43 06/19/23 17:34 06/19/23 17:26 Room Air 06/19/23 17:26 Room Air 06/19/23 16:57 Room Air Diagnostic Findings Laboratory Results WBC 12.22 K/ul (4.8-10.8) H 06/19/23 17:35 RBC 4.90 M/uL (4.70-6.10) 06/19/23 17:35 Hgb 13.1 g/dl (14.0-18.0) L 06/19/23 17:35 Hct 40.9 % (42.0-52.0) L 06/19/23 17:35 MCV 83.5 fL (80.0-100.0) 06/19/23 17:35 MCH 26.7 pg (25.0-34.0) 06/19/23 17:35 MCHC 32.0 g/dL (32.0-36.0) 06/19/23 17:35 RDW Std Deviation 56.9 fL (36.4-46.3) H 06/19/23 17:35 RDW Coeff of Adelia 18.7 % (11.5-14.5) H 06/19/23 17:35 Plt Count 353 K/uL (130-400) 06/19/23 17:35 MPV 9.7 fL (9.4-12.4) 06/19/23 17:35 Immature Gran % (Auto) 0.3 % 06/19/23 17:35 Neut % (Auto) 78.5 % 06/19/23 17:35 Lymph % (Auto) 12.5 % 06/19/23 17:35 [place] % (Auto) 6.2 % 06/19/23 17:35 Eos % (Auto) 1.8 % 06/19/23 17:35 Baso % (Auto) 0.7 % 06/19/23 17:35 Neut # (Auto) 9.58 K/uL (1.40-6.50) H 06/19/23 17:35 Lymph # (Auto) 1.53 K/uL (1.20-3.40) 06/19/23 17:35 [place] # (Auto) 0.76 K/uL (0.11-0.59) H 06/19/23 17:35 Eos # (Auto) 0.22 K/uL (0.00-0.50) 06/19/23 17:35 Baso # (Auto) 0.09 K/uL (0.00-0.20) 06/19/23 17:35 Immature Gran # (Auto) 0.04 K/uL (0.01-0.20) 06/19/23 17:35 Sodium 136 mmol/L (136-145) 06/19/23 17:35 Potassium 3.4 mmol/L (3.5-5.1) L 06/19/23 17:35 Chloride 103 mmol/L (98-107) 06/19/23 17:35 Carbon Dioxide 28 mmol/L (21-32) 06/19/23 17:35 Anion Gap 5 (3-11) 06/19/23 17:35 BUN 10 mg/dl (6-23) 06/19/23 17:35 Creatinine 0.59 mg/dl (0.6-1.4) L 06/19/23 17:35 Est Cr Clr Drug Dosing 178.7 ml/min 06/19/23 17:35 Est GFR ( Amer) 140.7 ml/min 06/19/23 17:35 Est GFR (Non-Af Amer) 121.4 ml/min 06/19/23 17:35 BUN/Creatinine Ratio 16.9 (10-20) 06/19/23 17:35 Glucose 119 mg/dl (70-99(Fasting)) H 06/19/23 17:35 Lactate 1.1 mmol/L (0.4-2.0) 06/19/23 17:35 Calcium 9.7 mg/dl (8.6-10.3) 06/19/23 17:35 Total Bilirubin 0.4 mg/dl (0.2-1.0) 06/19/23 17:35 AST 14 U/L (13-39) 06/19/23 17:35 ALT 7 U/L (7-52) 06/19/23 17:35 Alkaline Phosphatase 137 U/L (34-104) H 06/19/23 17:35 Troponin I High Sens 3.8 pg/ml (0-20) 06/19/23 17:35 Total Protein 6.6 gm/dl (6.0-8.3) 06/19/23 17:35 Albumin 3.7 gm/dl (3.4-5.0) 06/19/23 17:35 Globulin 2.9 gm/dl (2.5-4.0) 06/19/23 17:35 Albumin/Globulin Ratio 1.3 (0.9-2) 06/19/23 17:35 Lipase 20 U/L (11-82) 06/19/23 17:35 Urine Color Yellow 06/19/23 17:35 Urine Appearance Turbid (Clear) A 06/19/23 17:35 Urine pH 6.5 (4.5-7.5) 06/19/23 17:35 Ur Specific [place] 1.019 (1.000-1.030) 06/19/23 17:35 Urine Protein 1+ (Negative) H 06/19/23 17:35 Urine Glucose (UA) Negative (Negative) 06/19/23 17:35 Urine Ketones Negative (Negative) 06/19/23 17:35 Urine Blood 2+ (Negative) H 06/19/23 17:35 Urine Nitrite Negative (Negative) 06/19/23 17:35 Urine Bilirubin Negative (Negative) 06/19/23 17:35 Urine Urobilinogen Negative (Negative) 06/19/23 17:35 Ur Leukocyte Esterase 2+ (Negative) H 06/19/23 17:35 Urine WBC (Auto) >30 /hpf (0-5) H 06/19/23 17:35 Urine RBC (Auto) 10-30 /hpf (0-4) H 06/19/23 17:35 U Hyaline Cast (Auto) 5-10 /lpf (0-5) H 06/19/23 17:35 U Epithel Cells (Auto) 5-10 /lpf (0-5) H 06/19/23 17:35 Urine Bacteria (Auto) Negative (Negative) 06/19/23 17:35 Urine Crystals Not Reportable 06/19/23 17:35 Urine Yeast Budding w/ Hyphae (None Prsent) A 06/19/23 17:35 Impressions Chest X-Ray 06/19/23 16:57 XR chest 1V portable HISTORY: sepsis COMPARISON: Chest 05/20/2023. FINDINGS: No pneumothorax. No pleural effusions. The cardiac silhouette is mildly enlarged. This is similar to the prior study. Left basilar linear densities favor subsegmental atelectasis or scarring. Otherwise, lungs are clear. Cervical spinal fusion hardware is noted. No evidence for pulmonary edema. IMPRESSION: No acute process. ACT 112: Negative or not required by law. Electronically signed by: Zeeshan Mejia M.D. 06/19/2023 7:38 PM Abdomen/Pelvis CT 06/19/23 17:[address] WITHOUT CONTRAST CT DOSE: 1383.87 mGy.cm HISTORY: abd pain, uti TECHNIQUE: Multiaxial CT images of the abdomen and pelvis were performed without contrast. A dose lowering technique was utilized adhering to the principles of ALARA. COMPARISON STUDY: Abdomen and pelvis CT 05/14/2023. FINDINGS: Bibasilar linear densities consistent with scarring or subsegmental atelectasis. No pneumoperitoneum. No pneumatosis. There is a 2.5 cm sacral decubitus ulcer again noted which extends to the distal sacrum. There is chronic erosion/destruction of the distal sacrum with residual sclerosis. This is similar to the prior study and favors a chronic osteomyelitis. Fixation hardware seen within the bilateral forearms. Cholecystectomy. The unenhanced liver, spleen, adrenal glands, and pancreas are unremarkable. Bilateral nephrolithiasis again noted. Dominant stone within the left kidney measures 7 mm. No ureteral stones. No hydronephrosis. No retroperitoneal lymphadenopathy. Normal caliber abdominal aorta. No pelvic lymphadenopathy or pelvic free fluid. The bladder is decompressed by suprapubic catheter which appears in good position. Moderate bladder wall thickening and adjacent fat stranding persists suboptimal evaluation for bowel pathology due to the lack of intravenous and oral contrast. However, there is no definite bowel wall thickening or obstruction. Moderate fecal retention. IMPRESSION: 1. A suprapubic catheter appears in good position. Moderate bladder wall thickening again noted. This may represent a cystitis. Recommend correlation with urinalysis. 2. No bowel wall thickening or obstruction. 3. Bilateral nephrolithiasis. No ureteral stones. No hydronephrosis. 4. Sacral decubitus ulcer again noted with chronic erosion/destruction of the distal sacrum. This is similar to the prior study and favors a chronic osteomyelitis. ACT 112: Negative or not required by law. Electronically signed by: Zeeshan Mejia M.D. 06/19/2023 7:17 PM ECG Additional Comments: ECG. Sinus bradycardia at a rate of 45 possible left atrial enlargement. Code Status & VTE Plan VTE Prophylaxis Plan VTE Prophylaxis will be ordered: Yes
[2023-06-19] MEDS ORDERED: ALBUTEROL 0.083% NEBU SOLN 3 ML VIAL INH PRN (23:42)
[2023-06-19] MEDS ORDERED: NITROGLYCERIN SL 0.4 MG/TAB TAB SL PRN (23:42)
[2023-06-19] MEDS ORDERED: ONDANSETRON INJ 2 MG/ML 2 ML VIAL IV PRN (23:42)
[2023-06-19] MEDS ORDERED: POLYETHYLENE (MIRALAX) 17 GM PACK PO PRN (23:42)
[2023-06-19] MEDS ORDERED: ACETAMINOPHEN 325 MG TAB PO PRN (23:42)
[2023-06-19] MEDS ORDERED: LIDOCAINE VISCOUS 2% 15 ML UDC MT PRN (23:53)
[2023-06-20] MEDS ORDERED: INFLUENZA VIRUS QUADRIVALENT VACCINE (IIV4) 0.5 ML SYR IM ONE (00:08)
[2023-06-20] MEDS ORDERED: PNEUMOCOCCAL VACCINE (PCV20) 20-VAL CONJ-DIP CRM/PF 0.5 ML SYR IM ONE (00:08)
[2023-06-20] MEDS: SODIUM CHLORIDE 0.9% 1,000 ML IV SCH ×3 (00:40→16:44)
[2023-06-20] MEDS: DICLOFENAC SOD 1% GEL 100 GM TUBE EXT SCH ×5 (00:53→20:09)
[2023-06-20] MEDS: bisacodyL 10 MG SUPP PR SCH ×3 (00:53→20:09)
[2023-06-20] MEDS: POLYETHYLENE (MIRALAX) 17 GM PACK PO SCH ×3 (00:54→20:09)
[2023-06-20] MEDS: LACTULOSE SYRUP 20 GM/30 ML UDC PO SCH ×4 (00:54→20:09)
[2023-06-20] MEDS: GABAPENTIN 300 MG CAP PO SCH ×4 (00:56→20:11)
[2023-06-20] MEDS: POTASSIUM CHLORIDE CRTAB 20 MEQ TABCR PO SCH ×3 (00:56→20:14)
[2023-06-20] MEDS: MELATONIN 3 MG TAB PO SCH ×2 (00:57→20:12)
[2023-06-20] MEDS: FAMOTIDINE 20 MG TAB PO SCH ×3 (00:57→20:14)
[2023-06-20] MEDS: traZODone HCL 50 MG TAB PO SCH ×2 (00:58→20:12)
[2023-06-20] MEDS: APIXABAN 5 MG TABLET PO SCH ×3 (00:58→20:12)
[2023-06-20] MEDS: DOCUSATE SODIUM/SENNA 50/8.6MG TAB PO SCH ×2 (00:58→20:13)
[2023-06-20] MEDS ORDERED: BACLOFEN 10 MG TAB PO STA (01:37)
[2023-06-20] MEDS: MIDODRINE HCL 2.5 MG TAB PO SCH ×5 (02:50→17:09)
[2023-06-20] MEDS: HYDROmorphone INJ 0.5 MG/0.5 ML SYR IV PRN ×2 (04:50→16:43)
[2023-06-20 04:59] LABS: Basophils # (auto) 0.07 K/uL (0.00-0.20); Basophils % (auto) 1.1 %; Eosinophils # (auto) 0.14 K/uL (0.00-0.50); Eosinophils % (auto) 2.2 %; Hematocrit (blood only) 35.1 % (42.0-52.0); Hemoglobin 11.2 g/dl (14.0-18.0); Immature Granulocytes # (auto) 0.02 K/uL (0.01-0.20); Immature Granulocytes % (auto) 0.3 %; Lymphocytes # (auto) 1.56 K/uL (1.20-3.40); Mean Corpuscular Hemoglobin 26.7 pg (25.0-34.0); Mean Corpuscular Hgb Conc 31.9 g/dL (32.0-36.0); Mean Corpuscular Volume 83.6 fL (80.0-100.0); Mean Platelet Volume 9.4 fL (9.4-12.4); Monocytes # (auto) 0.56 K/uL (0.11-0.59); Monocytes % (auto) 8.6 %; Neutrophils # (auto) 4.16 K/uL (1.40-6.50); Neutrophils % (auto) 63.8 %; Platelet Count 281 K/uL (130-400); RDW Coefficient of Variation 18.6 % (11.5-14.5); RDW Standard Deviation 56.7 fL (36.4-46.3); White Blood Count 6.51 K/ul (4.8-10.8)
[2023-06-20 05:06] LABS: Alanine Aminotransferase 6 U/L (7-52); Albumin Globulin Ratio 1.3 (0.9-2); Albumin Level 3.1 gm/dl (3.4-5.0); Alkaline Phosphatase 110 U/L (34-104); Anion Gap 3 (3-11); Aspartate Aminotransferase 11 U/L (13-39); BUN Creatinine Ratio 14.9 (10-20); Bilirubin,Total 0.2 mg/dl (0.2-1.0); Blood Urea Nitrogen 7 mg/dl (6-23); Calcium 8.9 mg/dl (8.6-10.3); Carbon Dioxide 28 mmol/L (21-32); Chloride 110 mmol/L (98-107); Creatinine Clr Calc Pharmacy 219.9 ml/min; Est GFR (African American) > 150.0 ml/min; Est GFR (Non-African American) 133.3 ml/min; Globulin 2.4 gm/dl (2.5-4.0); Glucose 105 mg/dl (70-99(Fasting)); Magnesium 1.9 mg/dl (1.7-2.4); Potassium 3.9 mmol/L (3.5-5.1); Sodium 141 mmol/L (136-145); Total Protein 5.5 gm/dl (6.0-8.3)
[2023-06-20] MEDS ORDERED: FERROUS SULFATE 325 MG TAB PO SCH (07:30)
[2023-06-20] MEDS: DULoxetine HCL 60 MG CAP PO SCH (07:35)
[2023-06-20] MEDS: COLLAGENASE OINT 30 GM TUBE TOP SCH (07:35)
[2023-06-20] MEDS: BACLOFEN 20 MG TAB PO SCH ×2 (07:36→13:30)
[2023-06-20] MEDS: FLUTICASONE FUROATE 200MCG 14 PUFFS/INHALER INH SCH (07:36)
[2023-06-20] MEDS: VIBEGRON 75 MG TAB PO SCH (07:37)
[2023-06-20] MEDS: OXYBUTYNIN CHLORIDE XL 5 MG TABCR PO SCH (07:37)
[2023-06-20] MEDS: PANTOprazole 40 MG TAB PO SCH (07:37)
[2023-06-20] MEDS: LIDOCAINE 5% 1 PATCH TD SCH (07:38)
[2023-06-20] MEDS: UMECLIDINIUM/VILANTEROL 62.5/25MCG 7 PUFFS/INHALER INH SCH (07:40)
[2023-06-20] MEDS: MULTIVITAMIN TAB PO SCH (07:41)
[2023-06-20] MEDS: hydrOXYzine HCl 25 MG TAB PO SCH (07:42)
[2023-06-20] MEDS ORDERED: CEFEPIME 2,000 MG in SYRINGE 0 ML IV SCH (08:00)
--- NOTE | 2023-06-20 08:30 | Electrocardiogram Report ---
Test Reason : Blood Pressure : / mmHG Vent. Rate : 045 BPM Atrial Rate : 045 BPM P-R Int : 200 ms QRS Dur : 086 ms QT Int : 482 ms P-R-T Axes : 017 -11 008 degrees QTc Int : 416 ms Sinus bradycardia Left atrial enlargement Minimal voltage criteria for LVH, may be normal variant ( R in aVL ) Borderline ECG When compared with ECG of 16-MAY-2023 14:29, Vent. rate has decreased BY 24 BPM Confirmed by Javier Morejon ([id number]) on 06/20/2023 8:29:58 AM Referred By: REFERRED SELF Confirmed By:Javier Morejon
[2023-06-20] MEDS ORDERED: OXYBUTYNIN CHLORIDE XL 5 MG TABCR PO SCH (09:00)
[2023-06-20] MEDS ORDERED: ASCORBIC ACID 500 MG TAB PO SCH (09:00)
[2023-06-20] MEDS ORDERED: CEROVITE ADV FORMULA TAB PO SCH (09:00)
--- NOTE | 2023-06-20 16:14 | Hospitalist Progress Note ---
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 Sepsis-thought to be due to UTI/cellulitis involving the sacral wound/chronic osteomyelitis Noted to have mildly elevated white count Noted to have hypotension on presentation with blood pressure around systolic 90s Lactic acid okay Suspected complicated UTI with suprapubic catheter and UA suggestive of infection Infected sacral decubitus ulcers,Recent MRI done in [facility] showed S3 vertebral body osteomyelitis ER started IV daptomycin and cefepime which will be continued And received IV fluid at a rate of 125 mL/h Remains drowsy in the morning with hemodynamic stability and later on more arousable and asking why he is in the hospital Appreciate ID input and recommendation-does not have UTI and chronic osteomyelitis does not require any continued antibiotic Wound care for the sacral decubiti ulcer and monitor without antibiotic Intravenous cefepime and daptomycin were discontinued And monitored in the hospital for next day or 2 Traumatic cervical cord injury Chronic quadriplegia secondary to traumatic cervical spine injury Chronic indwelling suprapubic catheter Chronic diastolic CHF Getting fluids We will monitor for volume overload We will discontinue intravenous fluid with history of CHF History of saddle PE On Eliquis Continue Eliquis and monitor for any bleeding History of COPD Tobacco abuse Continue home inhalers Hypotension On midodrine Blood pressure is maintained DVT prophylaxis On Eliquis Disposition Telemetry floor Full code Admission and Anticipated Discharge Date Admission Date: June 19, 2023 Subjective 06/20/2020 The patient was seen and examined in the ICU He was admitted with possible sepsis secondary to UTI/chronic osteomyelitis flareup Did not have any white count or fever, cough or shortness of breath Remained drowsy this morning but later on became more alert and awake Review of Systems Review of Systems: Unobtainable due to cognitive status Physical Exam Physical Exam: Lying in bed without any acute distress Constitutional: well developed, well nourished, + ill appearing and + obese Eyes: PERRL, conjunctivae normal, anicteric sclerae ENMT: external ear and nose normal, oropharynx normal Neck: trachea midline, no thyromegaly Respiratory: no respiratory distress Auscultation: lungs clear to auscultation bilaterally; no crackles Cardiovascular: Rate/Rhythm: regular rate and regular rhythm; not tachycardic Heart Sounds: normal S1 and normal S2; no murmur Extremities: + edema (Trace edema bilaterally) Gastrointestinal (Abdomen): Inspection/Auscultation: + abdomen distended and normal bowel sounds Percussion/Palpation: abdomen soft; abdomen nontender Musculoskeletal: No acute arthritis involving any joint Neurologic: Has paraplegia with flexural deformities involving the joints Lymphatic: no cervical or axillary lymphadenopathy Results & Data Results & Data Vital Signs (Past 12 Hours) Vital Signs Temp Pulse Pulse Resp BP BP Pulse Ox 06/20/23 15:44 36.9 C 06/20/23 14:00 57 L 11 L 92 06/20/23 12:00 59 L 16 120/87 95 06/20/23 10:00 56 L 13 115/76 94 06/20/23 08:00 65 14 97/68 L 92 06/20/23 04:45 63 14 103/65 91 O2 Del Method 06/20/23 15:44 06/20/23 14:00 06/20/23 12:00 Room Air 06/20/23 10:00 Room Air 06/20/23 08:00 Room Air 06/20/23 04:45 Room Air Laboratory Results Short CBC 06/19/23 06/20/23 Range/Units 17:35 04:36 WBC 12.22 H 6.51 (4.8-10.8) K/ul Hgb 13.1 L 11.2 L (14.0-18.0) g/dl Hct 40.9 L 35.1 L (42.0-52.0) % Plt Count 353 281 (130-400) K/uL BMP 06/19/23 06/20/23 17:35 04:36 Sodium 136 141 Potassium 3.4 L 3.9 Chloride 103 110 H Carbon Dioxide 28 28 BUN 10 7 Creatinine 0.59 L 0.47 L Glucose 119 H 105 H Calcium 9.7 8.9 Liver Function 06/19/23 06/20/23 Range/Units 17:35 04:36 Total Bilirubin 0.4 0.2 (0.2-1.0) mg/dl AST 14 11 L (13-39) U/L ALT 7 6 L (7-52) U/L Alkaline Phosphatase 137 H 110 H (34-104) U/L Albumin 3.7 3.1 L (3.4-5.0) gm/dl Urine 06/19/23 Range/Units 17:35 Urine Color Yellow Urine Appearance Turbid A (Clear) Urine pH 6.5 (4.5-7.5) Ur Specific [place] 1.019 (1.000-1.030) Urine Protein 1+ H (Negative) Urine Glucose (UA) Negative (Negative) Medications Administered Current Inpatient Medications Acetaminophen (Acetaminophen 325 Mg Tab) 650 mg PO Q4H PRN PRN Reason: Pain or Fever Stop: 07/19/23 23:41 Albuterol (Albuterol 0.083% Nebu Soln 3 Ml Vial) 1.25 mg INH Q8H PRN; Protocol PRN Reason: bronchospasm Stop: 07/19/23 23:41 Apixaban (Apixaban 5 Mg Tablet) 5 mg PO BID ROSALES Stop: 07/19/23 23:41 Last Admin: 06/20/23 07:35 Dose: 5 mg Ascorbic Acid (Ascorbic Acid 500 Mg Tab) 500 mg PO QAM ROSALES Stop: 07/20/23 08:59 Last Admin: 06/20/23 07:35 Dose: 500 mg Baclofen (Baclofen 20 Mg Tab) 20 mg PO 0900,1200 ROSALES Stop: 07/20/23 08:59 Last Admin: 06/20/23 13:30 Dose: 20 mg Baclofen (Baclofen 10 Mg Tab) 30 mg PO HS ROSALES Stop: 07/20/23 20:59 Bisacodyl (Bisacodyl 10 Mg Supp) 10 mg AR BID ROSALES Stop: 07/19/23 23:41 Last Admin: 06/20/23 07:37 Dose: 10 mg Collagenase (Collagenase Oint 30 Gm Tube) 1 appln TOP DAILY ROSALES Stop: 07/20/23 08:59 Last Admin: 06/20/23 07:35 Dose: 1 appln Diclofenac Sodium (Diclofenac Sod 1% Gel 100 Gm Tube) 2 gm EXT QID ROSALES; Protocol Stop: 07/19/23 23:41 Last Admin: 06/20/23 13:29 Dose: Not Given Duloxetine HCl (Duloxetine Hcl 60 Mg Cap) 60 mg PO QAM [facility] Stop: 07/20/23 08:59 Last Admin: 06/20/23 07:35 Dose: 60 mg Famotidine (Famotidine 20 Mg Tab) 20 mg PO BID ROSALES Stop: 07/19/23 23:41 Last Admin: 06/20/23 09:24 Dose: 20 mg Ferrous Sulfate (Ferrous Sulfate 325 Mg Tab) 325 mg PO QDB [facility]ALES Stop: 07/20/23 07:29 Last Admin: 06/20/23 07:34 Dose: 325 mg Fluticasone Furoate (Fluticasone Furoate 200mcg 14 Puffs/Inhaler) 1 puffs INH DAILY [facility] Stop: 07/20/23 08:59 Last Admin: 06/20/23 07:36 Dose: 1 puffs Gabapentin (Gabapentin 300 Mg Cap) 300 mg PO TID@0900,1200,2100 [facility] Stop: 07/19/23 23:41 Last Admin: 06/20/23 13:30 Dose: 300 mg Hydromorphone HCl (Hydromorphone Inj 0.5 Mg/0.5 Ml Syr) 0.5 mg IV Q6H PRN PRN Reason: Pain Stop: 07/03/23 23:41 Last Admin: 06/20/23 04:50 Dose: 0.5 mg Hydroxyzine HCl (Hydroxyzine Hcl 25 Mg Tab) 25 mg PO QAM [facility] Stop: 07/20/23 08:59 Last Admin: 06/20/23 07:42 Dose: 25 mg Sodium Chloride (Nss) 1,000 mls @ 125 mls/hr IV .Q8H ROSALES Stop: 07/19/23 23:41 Last Admin: 06/20/23 07:45 Dose: 125 mls/hr Lactulose (Lactulose Syrup 20 Gm/30 Ml Udc) 20 gm PO TID@0900,1200,2100 [facility] Stop: 07/19/23 23:41 Last Admin: 06/20/23 12:02 Dose: Not Given Lidocaine (Lidocaine 5% 1 Patch) 1 patch TD DAILY [facility]AL[facility] Stop: 07/20/23 08:59 Last Admin: 06/20/23 07:38 Dose: Not Given Lidocaine HCl (Lidocaine Viscous 2% 15 Ml Udc) 5 ml MT ACHS PRN PRN Reason: as directed Stop: 07/19/23 23:52 Melatonin (Melatonin 3 Mg Tab) 3 mg PO HS [facility] Stop: 07/19/23 23:41 Last Admin: 06/20/23 00:57 Dose: 3 mg Midodrine (Midodrine Hcl 2.5 Mg Tab) 5 mg PO TID@0900,1400,1800 [facility] Stop: 07/19/23 23:41 Last Admin: 06/20/23 15:02 Dose: Not Given Miscellaneous (Remove Lidoderm Patch) 1 each N/A DAILY@2100 [facility] Stop: 07/19/23 23:41 Last Admin: 06/20/23 00:52 Dose: Not Given Multivitamins (Multivitamin Tab) 1 tab PO DAILY [facility] Stop: 07/20/23 08:59 Last Admin: 06/20/23 07:41 Dose: 1 tab Nitroglycerin (Nitroglycerin Sl 0.4 Mg/Tab Tab) 0.4 mg SL Q5M PRN PRN Reason: Chest Pain Stop: 07/19/23 23:41 Ondansetron HCl (Ondansetron Inj 2 Mg/Ml 2 Ml Vial) 4 mg IV Q6H PRN PRN Reason: Nausea Stop: 07/19/23 23:41 Oxybutynin Chloride (Oxybutynin Chloride Xl 5 Mg Tabcr) 10 mg PO QAM [facility] Stop: 07/20/23 08:59 Last Admin: 06/20/23 07:37 Dose: 10 mg Pantoprazole Sodium (Pantoprazole 40 Mg Tab) 40 mg PO QAM [facility] Stop: 07/20/23 08:59 Last Admin: 06/20/23 07:37 Dose: 40 mg Polyethylene Glycol (Polyethylene (Miralax) 17 Gm Pack) 17 gm PO DAILY PRN PRN Reason: Constipation Stop: 07/19/23 23:41 Polyethylene Glycol (Polyethylene (Miralax) 17 Gm Pack) 17 gm PO BID [facility] Stop: 07/19/23 23:41 Last Admin: 06/20/23 10:07 Dose: Not Given Potassium Chloride (Potassium Chloride Crtab 20 Meq Tabcr) 20 meq PO BID [facility]AL[facility] Stop: 07/19/23 23:41 Last Admin: 06/20/23 07:44 Dose: 20 meq Senna/Docusate Sodium (Docusate Sodium/Senna 50/8.6mg Tab) 2 tab PO HS [facility]ALES Stop: 07/19/23 23:41 Last Admin: 06/20/23 00:58 Dose: 2 tab Trazodone HCl (Trazodone Hcl 50 Mg Tab) 50 mg PO HS [facility]ALES Stop: 07/19/23 23:41 Last Admin: 06/20/23 00:58 Dose: 50 mg Umeclidinium/Vilanterol (Umeclidinium/Vilanterol 62.5/25mcg 7 Puffs/Inhaler) 1 puffs INH QAM [facility] Stop: 07/20/23 08:59 Last Admin: 06/20/23 07:40 Dose: 1 puffs Vibegron (Vibegron 75 Mg Tab) 75 mg PO DAILY ROSALES; Protocol Stop: 07/20/23 08:59 Last Admin: 06/20/23 07:37 Dose: 75 mg
[2023-06-20] MEDS ORDERED: DAPTOmycin 475 MG in SYRINGE 0 ML IV SCH (18:00)
[2023-06-20] MEDS: SUCRALFATE 1 GM/10 ML UDC PO SCH (20:11)
[2023-06-20] MEDS: BACLOFEN 10 MG TAB PO SCH (20:12)
--- NOTE | 2023-06-20 20:19 | Infectious Disease Consult ---
Date of Service June 20, 2023 Telehealth Information I performed this visit using a real-time telehealth connection between my location and the patients location ([facility]). After connecting through interactive tele-video, patient was identified by name and date of and/or wristband check.Patient (or authorized healthcare parts representative) was informed that this was a telemedicine visit and it was being conducted confidentially over secure lines. My office door was closed and no one else was present in the room with me.Patient (or authorized healthcare parts representative) provided consent to proceed with the visit, expressed an understanding of privacy and security of the telemedicine visit, and gave permission to have a hospital parts representative in the room in order to assist with the visit and to conduct portions of the visit, as needed. I informed the patient (or authorized healthcare parts representative) that I reviewed their record and presented the opportunity for them to ask any questions regarding the visit today. The patient agreed to participate. Assessment & Plan (1) Chronic osteomyelitis of sacrum: (2) Sacral decubitus ulcer, stage IV: (3) Paraplegia: (4) Abdominal pain: Plan 1. There is no indication to treat chronic osteomyelitis unless there is a plan for graft or muscular flap. Patient should continue local wound care to prevent skin and soft tissue infection. Therefore, if there is no other indication to treat with antibiotics, I would recommend stopping both daptomycin and cefepime. 2. I also has no concern for UTI. He has a urine Cx on 06/16 at [facility] that was negative, and I wouldn't be concerned about UTI after being treated with cipro for 6 days up until admission. I would recommend stopping all antibiotics and investigating his abdominal pain. The pain could be secondary to gastritis or esophagitis, and he might benefit from assessment by GI. 3. Thank you for consulting infectious disease. We will sign off for now. History of Present Illness History of Present Illness Mr. Fried is a 47-year-old man with medical history of quadriplegia (secondary to cervical spinal cord injury), neurogenic bladder with indwelling suprapubic catheter, sacral pressure ulcer with a chronic sacral osteomyelitis, autonomic dysfunction with hypotension (on midodrine), diastolic heart failure, HTN, pulmonary embolism and COPD who was admitted to [facility] on 06/19 because of burning sensation in the abdomen, hands and legs and not feeling well overall. He was recently discharged from [facility] (in mid-April 2023) after hospitalization for catheter associated urinary tract infection with urine culture at that time growing both Pseudomonas and Enterobacter. He was treated with IV cefepime while inpatient and then sent out on oral Cipro to complete a 14-day course. Recently, he was diagnosed by catheter associated urinary tract infection by his PCP and was also treated with oral ciprofloxacin until the current admission (completed around 6 days). On presentation, he was afebrile, bradycardic at 49 and hypotensive at 75/56. His blood work up on presentation showed leukocytosis of 12 with ANC of 9.5 and hypokalemia of 3.4. Id team was consulted for further recommendations and to help with the management of chronic sacral osteomyelitis. Allergies Allergy/AdvReac Type Severity Reaction Status Date / Time No Known Allergies Allergy Verified 06/19/23 19:34 Home Medications Medication Instructions Recorded Confirmed Type Naloxone Hcl 4 Mg/0.1ml Liquid See Rx Instructions .Route 05/15/23 06/19/23 History .COMPLEX PRN Opioid Overdose acetaminophen 500 mg tablet 500 mg PO .Q 4 HRS WHILE AWAKE 05/15/23 06/19/23 History apixaban 5 mg tablet 5 mg PO AMHS 05/15/23 06/19/23 History ascorbic acid (vitamin C) 500 mg 500 mg PO QAM 05/15/23 06/19/23 History tablet (Vitamin C) baclofen 10 mg tablet See Rx Instructions .Route .COMPLEX 05/15/23 06/19/23 History bisacodyl 10 mg rectal suppository 10 mg DC AMPM 05/15/23 06/19/23 History celecoxib 200 mg capsule 200 mg PO AMHS 05/15/23 06/19/23 History collagenase clostridium histo. 250 1 applic topical DAILY 05/15/23 06/19/23 History unit/gram topical ointment (Santyl) diclofenac sodium 1 % topical gel 2 g topical QID 05/15/23 06/19/23 History duloxetine 60 mg capsule,delayed 60 mg PO QAM 05/15/23 06/19/23 History release famotidine 20 mg tablet 20 mg PO AMHS 05/15/23 06/19/23 History ferrous sulfate 325 mg (65 mg 325 mg PO QDB 05/15/23 06/19/23 History iron) tablet fluticasone propionate 100 1 inh inhalation AMHS 05/15/23 06/19/23 History mcg/actuation blister powder for inhalation hydroxyzine HCl 25 mg tablet 25 mg PO QAM 05/15/23 06/19/23 History lactulose 20 gram/30 mL oral 20 g PO TID 05/15/23 06/19/23 History solution lidocaine 5 % topical patch 1 patch topical DAILY 05/15/23 06/19/23 History lidocaine HCl 2 % mucosal solution 5 ml PO ACHS PRN as directed 05/15/23 06/19/23 History (Lidocaine Viscous) melatonin 3 mg tablet 3 mg PO HS 05/15/23 06/19/23 History midodrine 10 mg tablet 5 mg PO TID 05/15/23 06/19/23 History mirabegron 50 mg tablet,extended 50 mg PO QAM 05/15/23 06/19/23 History release 24 hr (Myrbetriq) multivitamin 1 tab PO DAILY 05/15/23 06/19/23 History oxybutynin chloride 10 mg 10 mg PO QAM 05/15/23 06/19/23 History tablet,extended release 24 hr pantoprazole 40 mg tablet,delayed 40 mg PO QAM 05/15/23 06/19/23 History release polyethylene glycol 3350 17 gram 17 g PO AMHS 05/15/23 06/19/23 History oral powder packet (Miralax) potassium chloride 20 mEq 20 meq PO AMHS 05/15/23 06/19/23 History tablet,extended release(part/cryst) sennosides 8.6 mg-docusate sodium 2 tab-cap PO HS 05/15/23 06/19/23 History 50 mg tablet solifenacin 10 mg tablet 10 mg PO QAM 05/15/23 06/19/23 History trazodone 50 mg tablet 50 mg PO HS 05/15/23 06/19/23 History umeclidinium 62.5 mcg-vilanterol 1 inh inhalation QAM 05/15/23 06/19/23 History 25 mcg/actuation powdr for inhalation (Anoro Ellipta) albuterol sulfate 2.5 mg/3 mL 1.25 mg (1.5 mL) inhalation Q8H 05/19/23 06/19/23 Rx (0.083 %) solution for nebulization PRN bronchospasm #90 mL prednisone 20 mg tablet 20 mg PO DAILY #10 tabs 05/19/23 06/19/23 Rx Unknown "Water" Pill 1 dose PO QAM 06/19/23 06/19/23 History gabapentin 300 mg capsule 300 mg PO TID 06/19/23 06/19/23 History Patient History Social History Smoking Status: Heavy tobacco smoker Tobacco Type: Cigarettes Cigarettes Per Day: 40; Second Hand Exposure: Yes; Do You Dip or Chew Tobacco: No; Tobacco Cessation Education Requested by Patient: No Hx Alcohol Use: Yes Alcohol type: beer Hx Substance Use: Yes Last Used Substance: Unknown Preferred Language: Stateless Communication Ability: Effective Wireless Telegrapher Required: No Beliefs That Will Affect Care: None Current Living Situation: Alone and Family Feels Safe at Home: Yes Safety Concerns: Feels Safe At This Time Assistive Devices: Scooter/Electric Scooter and Wheelchair Review of Systems Constitutional:no fatigue, no fever or chills HEENT:no sore throat, no nasal discharge Cardiovascular:no chest pain, or palpitations Respiratory:no shortness of breath, no cough Gastrointestinal:abdomianl pain, burning but no nausea or vomiting :No dysuria or hesitancy, no urinary discharge Musculoskeletal/Skin: no body aches or rash Neurologic: No Headache, no dizziness Physical Exam Couldn't be performed as the consult was conducted via Telemed. Results & Data Vital Signs (Past 12 Hours) Vital Signs Temp Pulse Pulse Resp BP BP Pulse Ox 06/20/23 19:18 36.5 C 60 20 131/81 95 06/20/23 18:00 79 22 95 06/20/23 16:00 62 18 154/102 H 96 06/20/23 15:44 36.9 C 06/20/23 14:00 57 L 11 L 92 06/20/23 12:00 59 L 16 120/87 95 06/20/23 10:00 56 L 13 115/76 94 O2 Del Method 06/20/23 19:18 Room Air 06/20/23 18:00 06/20/23 16:00 Room Air 06/20/23 15:44 06/20/23 14:00 06/20/23 12:00 Room Air 06/20/23 10:00 Room Air Laboratory Results Microbiology: 06/19: 2 sets of blood culture negative to date 06/19: Urine culture with no growth to date 06/19: Superficial sacral wound ulcers pending Diagnostic Findings CT abd/pelvis on 06/19: 1. A suprapubic catheter appears in good position. Moderate bladder wall thickening again noted. This may represent a cystitis. Recommend correlation with urinalysis. 2. No bowel wall thickening or obstruction. 3. Bilateral nephrolithiasis. No ureteral stones. No hydronephrosis. 4. Sacral decubitus ulcer again noted with chronic erosion/destruction of the distal sacrum. This is similar to the prior study and favors a chronic osteomyelitis.
[2023-06-21] MEDS: SODIUM CHLORIDE 0.9% 1,000 ML IV SCH ×4 (01:34→23:00)
[2023-06-21] MEDS: HYDROmorphone INJ 0.5 MG/0.5 ML SYR IV PRN ×3 (04:08→16:43)
[2023-06-21 06:25] LABS: Basophils # (auto) 0.07 K/uL (0.00-0.20); Basophils % (auto) 0.8 %; Eosinophils % (auto) 1.1 %; Hematocrit (blood only) 37.2 % (42.0-52.0); Hemoglobin 11.5 g/dl (14.0-18.0); Immature Granulocytes # (auto) 0.04 K/uL (0.01-0.20); Immature Granulocytes % (auto) 0.4 %; Lymphocytes # (auto) 1.81 K/uL (1.20-3.40); Lymphocytes % (auto) 20.1 %; Mean Corpuscular Hemoglobin 26.1 pg (25.0-34.0); Mean Corpuscular Hgb Conc 30.9 g/dL (32.0-36.0); Mean Corpuscular Volume 84.5 fL (80.0-100.0); Mean Platelet Volume 9.6 fL (9.4-12.4); Monocytes # (auto) 0.81 K/uL (0.11-0.59); Neutrophils # (auto) 6.17 K/uL (1.40-6.50); Neutrophils % (auto) 68.6 %; Platelet Count 286 K/uL (130-400); RDW Coefficient of Variation 18.6 % (11.5-14.5); RDW Standard Deviation 56.9 fL (36.4-46.3)
[2023-06-21 06:49] LABS: Alanine Aminotransferase 7 U/L (7-52); Albumin Globulin Ratio 1.3 (0.9-2); Albumin Level 3.1 gm/dl (3.4-5.0); Alkaline Phosphatase 110 U/L (34-104); Anion Gap 5 (3-11); Aspartate Aminotransferase 12 U/L (13-39); BUN Creatinine Ratio 13.3 (10-20); Bilirubin,Total 0.2 mg/dl (0.2-1.0); Blood Urea Nitrogen 6 mg/dl (6-23); Carbon Dioxide 29 mmol/L (21-32); Chloride 107 mmol/L (98-107); Creatinine Clr Calc Pharmacy 229.7 ml/min; Est GFR (African American) > 150.0 ml/min; Est GFR (Non-African American) 135.7 ml/min; Globulin 2.4 gm/dl (2.5-4.0); Glucose 121 mg/dl (70-99(Fasting)); Magnesium 1.7 mg/dl (1.7-2.4); Phosphorus 2.6 mg/dl (2.5-4.9); Potassium 3.6 mmol/L (3.5-5.1); Sodium 141 mmol/L (136-145); Total Protein 5.5 gm/dl (6.0-8.3)
[2023-06-21] MEDS: SUCRALFATE 1 GM/10 ML UDC PO SCH ×4 (08:46→21:05)
[2023-06-21] MEDS: VIBEGRON 75 MG TAB PO SCH (08:47)
[2023-06-21] MEDS: GABAPENTIN 300 MG CAP PO SCH ×2 (08:47→14:45)
[2023-06-21] MEDS: MULTIVITAMIN TAB PO SCH (08:47)
[2023-06-21] MEDS: DULoxetine HCL 60 MG CAP PO SCH (08:47)
[2023-06-21] MEDS: APIXABAN 5 MG TABLET PO SCH ×2 (08:47→20:50)
[2023-06-21] MEDS: BACLOFEN 20 MG TAB PO SCH ×2 (08:48→13:30)
[2023-06-21] MEDS: FAMOTIDINE 20 MG TAB PO SCH ×2 (08:48→20:50)
[2023-06-21] MEDS: POTASSIUM CHLORIDE CRTAB 20 MEQ TABCR PO SCH ×2 (08:48→20:51)
[2023-06-21] MEDS: hydrOXYzine HCl 25 MG TAB PO SCH (08:48)
[2023-06-21] MEDS: OXYBUTYNIN CHLORIDE XL 5 MG TABCR PO SCH (08:48)
[2023-06-21] MEDS: PANTOprazole 40 MG TAB PO SCH (08:49)
[2023-06-21] MEDS: bisacodyL 10 MG SUPP PR SCH ×2 (08:52→20:49)
[2023-06-21] MEDS: FLUTICASONE FUROATE 200MCG 14 PUFFS/INHALER INH SCH (08:54)
[2023-06-21] MEDS: LACTULOSE SYRUP 20 GM/30 ML UDC PO SCH ×3 (08:54→20:49)
[2023-06-21] MEDS: DICLOFENAC SOD 1% GEL 100 GM TUBE EXT SCH ×4 (08:56→20:49)
[2023-06-21] MEDS: LIDOCAINE 5% 1 PATCH TD SCH (08:56)
[2023-06-21] MEDS: MIDODRINE HCL 2.5 MG TAB PO SCH ×3 (08:58→17:04)
[2023-06-21] MEDS: POLYETHYLENE (MIRALAX) 17 GM PACK PO SCH ×2 (08:59→20:49)
[2023-06-21] MEDS: UMECLIDINIUM/VILANTEROL 62.5/25MCG 7 PUFFS/INHALER INH SCH (09:04)
[2023-06-21] MEDS: COLLAGENASE OINT 30 GM TUBE TOP SCH (09:30)
--- NOTE | 2023-06-21 11:54 | Hospitalist Progress Note ---
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 Sepsis-thought to be due to UTI/cellulitis involving the sacral wound/chronic osteomyelitis Noted to have mildly elevated white count Noted to have hypotension on presentation with blood pressure around systolic 90s Lactic acid okay Suspected complicated UTI with suprapubic catheter and UA suggestive of infection Infected sacral decubitus ulcers,Recent MRI done in [facility] showed S3 vertebral body osteomyelitis ER started IV daptomycin and cefepime which will be continued And received IV fluid at a rate of 125 mL/h Remains drowsy in the morning with hemodynamic stability and later on more arousable and asking why he is in the hospital Appreciate ID input and recommendation-does not have UTI and chronic osteomyelitis does not require any continued antibiotic Wound care for the sacral decubiti ulcer and monitor without antibiotic Intravenous cefepime and daptomycin were discontinued And monitored in the hospital for next day or 2 Remains medically stable without any acute distress and/or symptoms Abdominal pain is controlled with current medications with added sucralfate He wants to be discharged and will be discharged home this afternoon His care will be continued with a special attention to wound care management and there was clearly explained to him Sacral decubiti ulcers Bilateral leg ulcers Appreciate wound care input and recommendation We will continue with outpatient dressing as advised by the wound care nurse Does not need any antibiotic now Accidental splashing of wound care solutions on the face with the wound carer He consented for HIV test as per the protocol The wound care will have specific tests as well Traumatic cervical cord injury Chronic quadriplegia secondary to traumatic cervical spine injury Chronic indwelling suprapubic catheter No UTI at this time Chronic diastolic CHF Getting fluids We will monitor for volume overload We will discontinue intravenous fluid with history of CHF History of saddle PE On Eliquis Continue Eliquis and monitor for any bleeding History of COPD Tobacco abuse Continue home inhalers Hypotension On midodrine Blood pressure is maintained DVT prophylaxis On Eliquis Disposition Telemetry floor Full code He will be discharged home this afternoon Admission and Anticipated Discharge Date Admission Date: June 19, 2023 Subjective 06/20/2023 The patient was seen and examined in the ICU He was admitted with possible sepsis secondary to UTI/chronic osteomyelitis flareup Did not have any white count or fever, cough or shortness of breath Remained drowsy this morning but later on became more alert and awake 06/21/2023 Patient was seen and examined in ICU He has been stable and denies any significant symptoms Abdominal pain seems to be controlled without any nausea and or vomiting No fever and or chills Review of Systems Review of Systems: All systems reviewed and are unremarkable except as noted below Neurologic: Quadriplegic with sacral and leg ulcers Physical Exam Physical Exam: Lying in bed without any acute distress Constitutional: well developed, well nourished, + ill appearing and + obese Eyes: PERRL, conjunctivae normal, anicteric sclerae ENMT: external ear and nose normal, oropharynx normal Neck: trachea midline, no thyromegaly Respiratory: no respiratory distress Auscultation: lungs clear to auscultation bilaterally; no crackles Cardiovascular: Rate/Rhythm: regular rate and regular rhythm; not tachycardic Heart Sounds: normal S1 and normal S2; no murmur Extremities: + edema (Trace edema bilaterally) Gastrointestinal (Abdomen): Inspection/Auscultation: + abdomen distended and normal bowel sounds Percussion/Palpation: abdomen soft; abdomen nontender Musculoskeletal: Flexural deformities involving the distal joints of the extremities Neurologic: Alert, awake and oriented x3. Has quadriplegia, more symptoms in legs and then in upper extremities Lymphatic: no cervical or axillary lymphadenopathy Results & Data Results & Data Vital Signs (Past 12 Hours) Vital Signs Temp Pulse Pulse Resp BP Pulse Ox O2 Del Method 06/21/23 08:00 36.8 C 68 19 152/94 H 97 Room Air 06/21/23 04:07 36.4 C L 64 16 158/10 H 94 Room Air 06/21/23 00:42 57 L 06/21/23 00:18 36.5 C 62 17 118/91 98 Room Air Laboratory Results Short CBC 06/21/23 Range/Units 05:48 WBC 9.00 (4.8-10.8) K/ul Hgb 11.5 L (14.0-18.0) g/dl Hct 37.2 L (42.0-52.0) % Plt Count 286 (130-400) K/uL BMP 06/21/23 05:48 Sodium 141 Potassium 3.6 Chloride 107 Carbon Dioxide 29 BUN 6 Creatinine 0.45 L Glucose 121 H Calcium 9.0 Liver Function 06/21/23 Range/Units 05:48 Total Bilirubin 0.2 (0.2-1.0) mg/dl AST 12 L (13-39) U/L ALT 7 (7-52) U/L Alkaline Phosphatase 110 H (34-104) U/L Albumin 3.1 L (3.4-5.0) gm/dl Medications Administered Current Inpatient Medications Acetaminophen (Acetaminophen 325 Mg Tab) 650 mg PO Q4H PRN PRN Reason: Pain or Fever Stop: 07/19/23 23:41 Albuterol (Albuterol 0.083% Nebu Soln 3 Ml Vial) 1.25 mg INH Q8H PRN; Protocol PRN Reason: bronchospasm Stop: 07/19/23 23:41 Apixaban (Apixaban 5 Mg Tablet) 5 mg PO BID [facility] Stop: 07/19/23 23:41 Last Admin: 06/21/23 08:47 Dose: 5 mg Baclofen (Baclofen 20 Mg Tab) 20 mg PO 0900,1200 [facility] Stop: 07/20/23 08:59 Last Admin: 06/21/23 08:48 Dose: 20 mg Baclofen (Baclofen 10 Mg Tab) 30 mg PO HS [facility] Stop: 07/20/23 20:59 Last Admin: 06/20/23 20:12 Dose: 30 mg Bisacodyl (Bisacodyl 10 Mg Supp) 10 mg MD BID [facility] Stop: 07/19/23 23:41 Last Admin: 06/21/23 08:52 Dose: Not Given Collagenase (Collagenase Oint 30 Gm Tube) 1 appln TOP DAILY [facility] Stop: 07/20/23 08:59 Last Admin: 06/21/23 09:30 Dose: 1 appln Diclofenac Sodium (Diclofenac Sod 1% Gel 100 Gm Tube) 2 gm EXT QID [facility]ALES; Protocol Stop: 07/19/23 23:41 Last Admin: 06/21/23 08:56 Dose: Not Given Duloxetine HCl (Duloxetine Hcl 60 Mg Cap) 60 mg PO QAM [facility] Stop: 07/20/23 08:59 Last Admin: 06/21/23 08:47 Dose: 60 mg Famotidine (Famotidine 20 Mg Tab) 20 mg PO BID [facility] Stop: 07/19/23 23:41 Last Admin: 06/21/23 08:48 Dose: 20 mg Fluticasone Furoate (Fluticasone Furoate 200mcg 14 Puffs/Inhaler) 1 puffs INH DAILY [facility] Stop: 07/20/23 08:59 Last Admin: 06/21/23 08:54 Dose: Not Given Gabapentin (Gabapentin 300 Mg Cap) 300 mg PO TID@0900,1200,2100 [facility] Stop: 07/19/23 23:41 Last Admin: 06/21/23 08:47 Dose: 300 mg Hydromorphone HCl (Hydromorphone Inj 0.5 Mg/0.5 Ml Syr) 0.5 mg IV Q6H PRN PRN Reason: Pain Stop: 07/03/23 23:41 Last Admin: 06/21/23 11:04 Dose: 0.5 mg Hydroxyzine HCl (Hydroxyzine Hcl 25 Mg Tab) 25 mg PO QAM [facility] Stop: 07/20/23 08:59 Last Admin: 06/21/23 08:48 Dose: 25 mg Sodium Chloride (Nss) 1,000 mls @ 125 mls/hr IV .Q8H [facility] Stop: 07/19/23 23:41 Last Admin: 06/21/23 10:51 Dose: Not Given Lactulose (Lactulose Syrup 20 Gm/30 Ml Udc) 20 gm PO TID@0900,1200,2100 [facility] Stop: 07/19/23 23:41 Last Admin: 06/21/23 08:54 Dose: Not Given Lidocaine (Lidocaine 5% 1 Patch) 1 patch TD DAILY [facility] Stop: 07/20/23 08:59 Last Admin: 06/21/23 08:56 Dose: Not Given Lidocaine HCl (Lidocaine Viscous 2% 15 Ml Udc) 5 ml MT ACHS PRN PRN Reason: as directed Stop: 07/19/23 23:52 Melatonin (Melatonin 3 Mg Tab) 3 mg PO HS [facility] Stop: 07/19/23 23:41 Last Admin: 06/20/23 20:12 Dose: 3 mg Midodrine (Midodrine Hcl 2.5 Mg Tab) 5 mg PO TID@0900,1400,1800 [facility] Stop: 07/19/23 23:41 Last Admin: 06/21/23 08:58 Dose: Not Given Miscellaneous (Remove Lidoderm Patch) 1 each N/A DAILY@2100 [facility] Stop: 07/19/23 23:41 Last Admin: 06/20/23 20:10 Dose: Not Given Multivitamins (Multivitamin Tab) 1 tab PO DAILY [facility] Stop: 07/20/23 08:59 Last Admin: 06/21/23 08:47 Dose: 1 tab Nitroglycerin (Nitroglycerin Sl 0.4 Mg/Tab Tab) 0.4 mg SL Q5M PRN PRN Reason: Chest Pain Stop: 07/19/23 23:41 Ondansetron HCl (Ondansetron Inj 2 Mg/Ml 2 Ml Vial) 4 mg IV Q6H PRN PRN Reason: Nausea Stop: 07/19/23 23:41 Oxybutynin Chloride (Oxybutynin Chloride Xl 5 Mg Tabcr) 10 mg PO QAM [facility] Stop: 07/20/23 08:59 Last Admin: 06/21/23 08:48 Dose: 10 mg Pantoprazole Sodium (Pantoprazole 40 Mg Tab) 40 mg PO QAM [facility] Stop: 07/20/23 08:59 Last Admin: 06/21/23 08:49 Dose: 40 mg Polyethylene Glycol (Polyethylene (Miralax) 17 Gm Pack) 17 gm PO DAILY PRN PRN Reason: Constipation Stop: 07/19/23 23:41 Polyethylene Glycol (Polyethylene (Miralax) 17 Gm Pack) 17 gm PO BID [facility] Stop: 07/19/23 23:41 Last Admin: 06/21/23 08:59 Dose: Not Given Potassium Chloride (Potassium Chloride Crtab 20 Meq Tabcr) 20 meq PO BID [facility] Stop: 07/19/23 23:41 Last Admin: 06/21/23 08:48 Dose: 20 meq Senna/Docusate Sodium (Docusate Sodium/Senna 50/8.6mg Tab) 2 tab PO HS [facility] Stop: 07/19/23 23:41 Last Admin: 06/20/23 20:13 Dose: 2 tab Sucralfate (Sucralfate 1 Gm/10 Ml Udc) 1 gm PO ACHS [facility] Stop: 07/20/23 20:59 Last Admin: 06/21/23 11:37 Dose: Not Given Trazodone HCl (Trazodone Hcl 50 Mg Tab) 50 mg PO HS [facility]AL[facility] Stop: 07/19/23 23:41 Last Admin: 06/20/23 20:12 Dose: 50 mg Umeclidinium/Vilanterol (Umeclidinium/Vilanterol 62.5/25mcg 7 Puffs/Inhaler) 1 puffs INH QAM [facility] Stop: 07/20/23 08:59 Last Admin: 06/21/23 09:04 Dose: Not Given Vibegron (Vibegron 75 Mg Tab) 75 mg PO DAILY [facility]; Protocol Stop: 07/20/23 08:59 Last Admin: 06/21/23 08:47 Dose: 75 mg
[2023-06-21] MEDS ORDERED: ASPIRIN 325 MG ECTAB PO ONE (15:15)
[2023-06-21] MEDS ORDERED: HYDROCORTISONE SOD 50 MG in SYRINGE 0 ML IV ONE (15:45)
[2023-06-21] MEDS: DOCUSATE SODIUM/SENNA 50/8.6MG TAB PO SCH (20:50)
[2023-06-21] MEDS: GABAPENTIN 400 MG CAP PO SCH (20:50)
[2023-06-21] MEDS: traZODone HCL 50 MG TAB PO SCH (20:51)
[2023-06-21] MEDS: MELATONIN 3 MG TAB PO SCH (20:51)
[2023-06-21] MEDS: BACLOFEN 10 MG TAB PO SCH (20:52)
[2023-06-22] MEDS: HYDROmorphone INJ 0.5 MG/0.5 ML SYR IV PRN ×2 (03:20→10:13)
[2023-06-22] MEDS: SODIUM CHLORIDE 0.9% 1,000 ML IV SCH (05:10)
[2023-06-22 06:28] LABS: Basophils # (auto) 0.05 K/uL (0.00-0.20); Basophils % (auto) 0.6 %; Eosinophils # (auto) 0.06 K/uL (0.00-0.50); Eosinophils % (auto) 0.7 %; Hematocrit (blood only) 37.3 % (42.0-52.0); Hemoglobin 12.1 g/dl (14.0-18.0); Immature Granulocytes # (auto) 0.03 K/uL (0.01-0.20); Immature Granulocytes % (auto) 0.3 %; Lymphocytes # (auto) 1.93 K/uL (1.20-3.40); Lymphocytes % (auto) 22.5 %; Mean Corpuscular Hemoglobin 26.7 pg (25.0-34.0); Mean Corpuscular Hgb Conc 32.4 g/dL (32.0-36.0); Mean Corpuscular Volume 82.3 fL (80.0-100.0); Mean Platelet Volume 9.3 fL (9.4-12.4); Monocytes # (auto) 0.83 K/uL (0.11-0.59); Monocytes % (auto) 9.7 %; Neutrophils # (auto) 5.68 K/uL (1.40-6.50); Neutrophils % (auto) 66.2 %; Platelet Count 279 K/uL (130-400); RDW Coefficient of Variation 18.1 % (11.5-14.5); RDW Standard Deviation 55.1 fL (36.4-46.3); Red Blood Count 4.53 M/uL (4.70-6.10); White Blood Count 8.58 K/ul (4.8-10.8)
[2023-06-22 06:42] LABS: Anion Gap 4 (3-11); BUN Creatinine Ratio 14.6 (10-20); Blood Urea Nitrogen 6 mg/dl (6-23); Calcium 9.3 mg/dl (8.6-10.3); Carbon Dioxide 29 mmol/L (21-32); Chloride 108 mmol/L (98-107); Creatinine Clr Calc Pharmacy 258.5 ml/min; Est GFR (African American) > 150.0 ml/min; Glucose 111 mg/dl (70-99(Fasting)); Magnesium 1.8 mg/dl (1.7-2.4); Potassium 3.8 mmol/L (3.5-5.1); Sodium 141 mmol/L (136-145)
[2023-06-22] MEDS: VIBEGRON 75 MG TAB PO SCH (08:55)
[2023-06-22] MEDS: SUCRALFATE 1 GM/10 ML UDC PO SCH ×2 (08:55→12:36)
[2023-06-22] MEDS: MIDODRINE HCL 2.5 MG TAB PO SCH ×2 (08:56→13:47)
[2023-06-22] MEDS: POTASSIUM CHLORIDE CRTAB 20 MEQ TABCR PO SCH (08:56)
[2023-06-22] MEDS: APIXABAN 5 MG TABLET PO SCH (08:56)
[2023-06-22] MEDS: BACLOFEN 20 MG TAB PO SCH ×2 (08:56→11:24)
[2023-06-22] MEDS: PANTOprazole 40 MG TAB PO SCH (08:56)
[2023-06-22] MEDS: GABAPENTIN 400 MG CAP PO SCH ×2 (08:56→11:24)
[2023-06-22] MEDS: hydrOXYzine HCl 25 MG TAB PO SCH (08:56)
[2023-06-22] MEDS: bisacodyL 10 MG SUPP PR SCH (08:56)
[2023-06-22] MEDS: MULTIVITAMIN TAB PO SCH (08:56)
[2023-06-22] MEDS: OXYBUTYNIN CHLORIDE XL 5 MG TABCR PO SCH (08:56)
[2023-06-22] MEDS: COLLAGENASE OINT 30 GM TUBE TOP SCH (08:56)
[2023-06-22] MEDS: FLUTICASONE FUROATE 200MCG 14 PUFFS/INHALER INH SCH (08:57)
[2023-06-22] MEDS: DULoxetine HCL 60 MG CAP PO SCH (08:57)
[2023-06-22] MEDS: FAMOTIDINE 20 MG TAB PO SCH (08:57)
[2023-06-22] MEDS: UMECLIDINIUM/VILANTEROL 62.5/25MCG 7 PUFFS/INHALER INH SCH (08:58)
[2023-06-22] MEDS: POLYETHYLENE (MIRALAX) 17 GM PACK PO SCH (08:58)
[2023-06-22] MEDS: LACTULOSE SYRUP 20 GM/30 ML UDC PO SCH ×2 (08:58→11:21)
[2023-06-22] MEDS: DICLOFENAC SOD 1% GEL 100 GM TUBE EXT SCH ×2 (10:12→11:22)
[2023-06-22] MEDS: LIDOCAINE 5% 1 PATCH TD SCH (10:12)
== END 2023-06-22 14:10 | disposition home or self-care (01) | DRG 871 ==
LOC: ED 16:28 → 1E 21:00 → SUATTDRO 21:00 → 1E 23:00

== ENCOUNTER 2023-06-23 22:44 | Inpatient (IN) ==
[2023-06-23 23:28] LABS: Basophils # (auto) 0.08 K/uL (0.00-0.20); Basophils % (auto) 0.7 %; Eosinophils # (auto) 0.14 K/uL (0.00-0.50); Eosinophils % (auto) 1.2 %; Hematocrit (blood only) 40.8 % (42.0-52.0); Hemoglobin 13.2 g/dl (14.0-18.0); Immature Granulocytes # (auto) 0.06 K/uL (0.01-0.20); Immature Granulocytes % (auto) 0.5 %; Lymphocytes # (auto) 1.29 K/uL (1.20-3.40); Lymphocytes % (auto) 11.1 %; Mean Corpuscular Hemoglobin 26.6 pg (25.0-34.0); Mean Corpuscular Hgb Conc 32.4 g/dL (32.0-36.0); Mean Corpuscular Volume 82.1 fL (80.0-100.0); Mean Platelet Volume 9.2 fL (9.4-12.4); Monocytes # (auto) 0.75 K/uL (0.11-0.59); Monocytes % (auto) 6.5 %; Neutrophils # (auto) 9.25 K/uL (1.40-6.50); Platelet Count 286 K/uL (130-400); RDW Coefficient of Variation 17.9 % (11.5-14.5); RDW Standard Deviation 53.3 fL (36.4-46.3); Red Blood Count 4.97 M/uL (4.70-6.10); White Blood Count 11.57 K/ul (4.8-10.8)
[2023-06-23 23:57] LABS: INR 0.9 (0.9-1.1); Partial Thromboplastin Time 27.9 Seconds (21.0-31.0); Prothrombin Time 10.4 Seconds (9.0-12.0)
[2023-06-23 23:58] LABS: Alanine Aminotransferase 24 U/L (7-52); Albumin Globulin Ratio 1.2 (0.9-2); Albumin Level 3.7 gm/dl (3.4-5.0); Alkaline Phosphatase 165 U/L (34-104); Anion Gap 8 (3-11); Aspartate Aminotransferase 39 U/L (13-39); BUN Creatinine Ratio 13.3 (10-20); Bilirubin,Total 0.5 mg/dl (0.2-1.0); Blood Urea Nitrogen 6 mg/dl (6-23); Carbon Dioxide 27 mmol/L (21-32); Chloride 103 mmol/L (98-107); Creatinine Clr Calc Pharmacy 238.4 ml/min; Est GFR (African American) > 150.0 ml/min; Est GFR (Non-African American) 135.7 ml/min; Glucose 100 mg/dl (70-99(Fasting)); Potassium 3.5 mmol/L (3.5-5.1); Sodium 138 mmol/L (136-145); Total Protein 6.7 gm/dl (6.0-8.3); Troponin I High Sensitivity 4.9 pg/ml (0-20)
--- NOTE | 2023-06-24 05:40 | Emergency Department Note ---
History of Present Illness General Chief complaint: Cardiac Assessment Stated complaint: CP, SOB HERE FOR SAME RECENTLY, [facility] Time Seen by Provider: 06/24/23 00:16 History of Present Illness Maximum Pain Intensity: 9 This is a 47-year-old male presenting to the emergency department via EMS for evaluation of chest pain symptoms today. Patient has a history of quadriplegia and previously has followed through the [facility]. He lives in the [facility], and refuses to go to those facilities, elected to come to this facility. He has not had recent fevers or chills. He was in this department about a week ago where he was felt to be septic and treated with antibiotics. The patient was ultimately discharged back home, and now presents to this department for his symptoms. The patient is on apixaban and is reportedly taking his medication as prescribed. He does not have any personal history of cardiac disease. He feels like he is having numbness and tingling to his hands and feet as well. He rates his discomfort a 9/10. He has not taken anything [id number] for his discomfort. Home Medications Medication Instructions Recorded Confirmed Type Naloxone Hcl 4 Mg/0.1ml Liquid See Rx Instructions .Route 05/15/23 06/24/23 History .COMPLEX PRN Opioid Overdose acetaminophen 500 mg tablet 500 mg PO .Q 4 HRS WHILE AWAKE 05/15/23 06/24/23 History apixaban 5 mg tablet 5 mg PO AMHS 05/15/23 06/24/23 History ascorbic acid (vitamin C) 500 mg 500 mg PO QAM 05/15/23 06/24/23 History tablet (Vitamin C) baclofen 10 mg tablet See Rx Instructions .Route .COMPLEX 05/15/23 06/24/23 History bisacodyl 10 mg rectal suppository 10 mg [place] AMPM 05/15/23 06/24/23 History celecoxib 200 mg capsule 200 mg PO AMHS 05/15/23 06/24/23 History collagenase clostridium histo. 250 1 applic topical DAILY 05/15/23 06/24/23 History unit/gram topical ointment (Santyl) diclofenac sodium 1 % topical gel 2 g topical QID 05/15/23 06/24/23 History duloxetine 60 mg capsule,delayed 60 mg PO QAM 05/15/23 06/24/23 History release famotidine 20 mg tablet 20 mg PO AMHS 05/15/23 06/24/23 History ferrous sulfate 325 mg (65 mg 325 mg PO QDB 05/15/23 06/24/23 History iron) tablet fluticasone propionate 100 1 inh inhalation AMHS 05/15/23 06/24/23 History mcg/actuation blister powder for inhalation hydroxyzine HCl 25 mg tablet 25 mg PO QAM 05/15/23 06/24/23 History lactulose 20 gram/30 mL oral 20 g PO TID 05/15/23 06/24/23 History solution lidocaine 5 % topical patch 1 patch topical DAILY 05/15/23 06/24/23 History lidocaine HCl 2 % mucosal solution 5 ml PO ACHS PRN as directed 05/15/23 06/24/23 History (Lidocaine Viscous) melatonin 3 mg tablet 3 mg PO HS 05/15/23 06/24/23 History mirabegron 50 mg tablet,extended 50 mg PO QAM 05/15/23 06/24/23 History release 24 hr (Myrbetriq) oxybutynin chloride 10 mg 10 mg PO QAM 05/15/23 06/24/23 History tablet,extended release 24 hr pantoprazole 40 mg tablet,delayed 40 mg PO QAM 05/15/23 06/24/23 History release polyethylene glycol 3350 17 gram 17 g PO AMHS 05/15/23 06/24/23 History oral powder packet (Miralax) potassium chloride 20 mEq 20 meq PO AMHS 05/15/23 06/24/23 History tablet,extended release(part/cryst) sennosides 8.6 mg-docusate sodium 2 tab-cap PO HS 05/15/23 06/24/23 History 50 mg tablet solifenacin 10 mg tablet 10 mg PO QAM 05/15/23 06/24/23 History trazodone 50 mg tablet 50 mg PO HS 05/15/23 06/24/23 History umeclidinium 62.5 mcg-vilanterol 1 inh inhalation QAM 05/15/23 06/24/23 History 25 mcg/actuation powdr for inhalation (Anoro Ellipta) albuterol sulfate 2.5 mg/3 mL 1.25 mg (1.5 mL) inhalation Q8H 05/19/23 06/24/23 Rx (0.083 %) solution for nebulization PRN bronchospasm #90 mL prednisone 20 mg tablet 20 mg PO DAILY #10 tabs 05/19/23 06/24/23 Rx Unknown "Water" Pill 1 dose PO QAM 06/19/23 06/24/23 History gabapentin 400 mg capsule 400 mg PO TID@0900,1200,2100 #90 06/21/23 06/24/23 Rx caps sucralfate 100 mg/mL oral 1 g (10 mL) PO ACHS #400 mL 06/21/23 06/24/23 Rx suspension oxycodone 5 mg tablet 5 mg PO Q6H PRN moderate to severe 06/22/23 06/24/23 Rx pain #14 tabs multivitamin with minerals-folic 1 tab PO DAILY 06/24/23 06/24/23 History acid 200 mcg chewable tablet (Adult Multivitamin Gummies) Allergies Allergy/AdvReac Type Severity Reaction Status Date / Time No Known Allergies Allergy Verified 06/24/23 00:19 Past Med/Surg History Medical History Paraplegia Chronic osteomyelitis of sacrum Sacral decubitus ulcer, stage IV Complicated UTI (urinary tract infection) COPD exacerbation Social History Smoking Status: Former smoker Tobacco Type: Cigarettes Cigarettes Per Day: 40; Second Hand Exposure: Yes; Do You Dip or Chew Tobacco: No; Hx Alcohol Use: Yes Alcohol type: beer Hx Substance Use: Yes Last Used Substance: Unknown Preferred Language: Sami Communication Ability: Effective Product Info Specialist Required: No Beliefs That Will Affect Care: None Current Living Situation: Alone and Family Feels Safe at Home: Yes Assistive Devices: Scooter/Electric Scooter and Wheelchair Review of Systems A total of 10 systems reviewed and were otherwise negative Physical Exam Vital Signs Vital Signs - 24 hr 06/23/23 22:52 06/23/23 22:53 06/23/23 22:59 Temperature Temperature Source Pulse Rate 67 63 Pulse Rate [Apical] Pulse Rate from SpO2 Sensor 64 Respiratory Rate 20 Respiratory Effort / Characteristics Respiratory Depth Respiratory Pattern Blood Pressure Blood Pressure [Right Arm] Blood Pressure Mean Blood Pressure Mean [Right Arm] Blood Pressure Position Blood Pressure Position [Right Arm] Pulse Oximetry 97 97 Oxygen Delivery Method Room Air Sepsis Recent Fever Within 48 Hours Sepsis New/Unexplained Change in Mental Status Sepsis Action Taken by Nursing 06/23/23 23:00 06/23/23 23:10 06/23/23 23:11 Temperature 36.8 C Temperature Source Oral Pulse Rate 73 56 L 69 Pulse Rate [Apical] Pulse Rate from SpO2 Sensor 56 L Respiratory Rate 20 20 22 Respiratory Effort / Characteristics Non-Labored Spontaneous Respiratory Depth Normal Respiratory Pattern Regular Blood Pressure 168/115 H Blood Pressure [Right Arm] Blood Pressure Mean 132 Blood Pressure Mean [Right Arm] Blood Pressure Position Semi-fowlers Blood Pressure Position [Right Arm] Pulse Oximetry 96 97 Oxygen Delivery Method Room Air Sepsis Recent Fever Within 48 Hours No Sepsis New/Unexplained Change in Mental Status N/A Sepsis Action Taken by Nursing No Action Required 06/23/23 23:20 06/23/23 23:30 06/23/23 23:36 Temperature Temperature Source Pulse Rate 54 L 59 L Pulse Rate [Apical] 63 Pulse Rate from SpO2 Sensor 55 L 58 L Respiratory Rate 21 14 18 Respiratory Effort / Characteristics Non-Labored Spontaneous Respiratory Depth Normal Respiratory Pattern Regular Blood Pressure Blood Pressure [Right Arm] 134/96 Blood Pressure Mean Blood Pressure Mean [Right Arm] 108 Blood Pressure Position Blood Pressure Position [Right Arm] Semi-fowlers Pulse Oximetry 98 95 96 Oxygen Delivery Method Room Air Sepsis Recent Fever Within 48 Hours Sepsis New/Unexplained Change in Mental Status Sepsis Action Taken by Nursing 06/23/23 23:36 06/23/23 23:36 06/23/23 23:40 Temperature Temperature Source Pulse Rate 59 L 59 L Pulse Rate [Apical] Pulse Rate from SpO2 Sensor 59 L 61 Respiratory Rate 21 16 Respiratory Effort / Characteristics Respiratory Depth Respiratory Pattern Blood Pressure 134/96 Blood Pressure [Right Arm] Blood Pressure Mean 110 Blood Pressure Mean [Right Arm] Blood Pressure Position Blood Pressure Position [Right Arm] Pulse Oximetry 97 94 Oxygen Delivery Method Sepsis Recent Fever Within 48 Hours Sepsis New/Unexplained Change in Mental Status Sepsis Action Taken by Nursing 06/23/23 23:50 06/24/23 00:00 06/24/23 00:10 Temperature Temperature Source Pulse Rate 61 62 62 Pulse Rate [Apical] Pulse Rate from SpO2 Sensor 61 63 62 Respiratory Rate 17 19 21 Respiratory Effort / Characteristics Respiratory Depth Respiratory Pattern Blood Pressure Blood Pressure [Right Arm] Blood Pressure Mean Blood Pressure Mean [Right Arm] Blood Pressure Position Blood Pressure Position [Right Arm] Pulse Oximetry 96 96 98 Oxygen Delivery Method Sepsis Recent Fever Within 48 Hours Sepsis New/Unexplained Change in Mental Status Sepsis Action Taken by Nursing 06/24/23 00:20 06/24/23 00:30 06/24/23 00:40 Temperature Temperature Source Pulse Rate 71 62 57 L Pulse Rate [Apical] Pulse Rate from SpO2 Sensor 71 62 57 L Respiratory Rate 22 21 21 Respiratory Effort / Characteristics Respiratory Depth Respiratory Pattern Blood Pressure Blood Pressure [Right Arm] Blood Pressure Mean Blood Pressure Mean [Right Arm] Blood Pressure Position Blood Pressure Position [Right Arm] Pulse Oximetry 98 98 96 Oxygen Delivery Method Sepsis Recent Fever Within 48 Hours Sepsis New/Unexplained Change in Mental Status Sepsis Action Taken by Nursing 06/24/23 00:50 06/24/23 01:00 06/24/23 01:10 Temperature Temperature Source Pulse Rate 56 L 57 L 58 L Pulse Rate [Apical] Pulse Rate from SpO2 Sensor 56 L 58 L 59 L Respiratory Rate 19 20 18 Respiratory Effort / Characteristics Respiratory Depth Respiratory Pattern Blood Pressure Blood Pressure [Right Arm] Blood Pressure Mean Blood Pressure Mean [Right Arm] Blood Pressure Position Blood Pressure Position [Right Arm] Pulse Oximetry 96 96 96 Oxygen Delivery Method Sepsis Recent Fever Within 48 Hours Sepsis New/Unexplained Change in Mental Status Sepsis Action Taken by Nursing 06/24/23 01:20 06/24/23 01:26 06/24/23 01:26 Temperature Temperature Source Pulse Rate 64 62 Pulse Rate [Apical] Pulse Rate from SpO2 Sensor 64 62 Respiratory Rate 21 24 Respiratory Effort / Characteristics Respiratory Depth Respiratory Pattern Blood Pressure 125/89 Blood Pressure [Right Arm] Blood Pressure Mean 96 Blood Pressure Mean [Right Arm] Blood Pressure Position Blood Pressure Position [Right Arm] Pulse Oximetry 97 96 Oxygen Delivery Method Sepsis Recent Fever Within 48 Hours Sepsis New/Unexplained Change in Mental Status Sepsis Action Taken by Nursing 06/24/23 01:30 06/24/23 01:30 06/24/23 01:40 Temperature Temperature Source Pulse Rate 65 61 Pulse Rate [Apical] 62 Pulse Rate from SpO2 Sensor 65 60 Respiratory Rate 18 14 18 Respiratory Effort / Characteristics Non-Labored Spontaneous Respiratory Depth Normal Respiratory Pattern Regular Blood Pressure Blood Pressure [Right Arm] 125/89 Blood Pressure Mean Blood Pressure Mean [Right Arm] 101 Blood Pressure Position Blood Pressure Position [Right Arm] Semi-fowlers Pulse Oximetry 97 97 97 Oxygen Delivery Method Room Air Sepsis Recent Fever Within 48 Hours Sepsis New/Unexplained Change in Mental Status Sepsis Action Taken by Nursing 06/24/23 01:50 06/24/23 02:00 06/24/23 02:10 Temperature Temperature Source Pulse Rate 62 55 L 58 L Pulse Rate [Apical] Pulse Rate from SpO2 Sensor 63 56 L 58 L Respiratory Rate 20 21 21 Respiratory Effort / Characteristics Respiratory Depth Respiratory Pattern Blood Pressure Blood Pressure [Right Arm] Blood Pressure Mean Blood Pressure Mean [Right Arm] Blood Pressure Position Blood Pressure Position [Right Arm] Pulse Oximetry 97 96 96 Oxygen Delivery Method Sepsis Recent Fever Within 48 Hours Sepsis New/Unexplained Change in Mental Status Sepsis Action Taken by Nursing 06/24/23 02:20 06/24/23 02:30 06/24/23 02:40 Temperature Temperature Source Pulse Rate 59 L 61 64 Pulse Rate [Apical] Pulse Rate from SpO2 Sensor 60 63 63 Respiratory Rate 20 23 21 Respiratory Effort / Characteristics Respiratory Depth Respiratory Pattern Blood Pressure Blood Pressure [Right Arm] Blood Pressure Mean Blood Pressure Mean [Right Arm] Blood Pressure Position Blood Pressure Position [Right Arm] Pulse Oximetry 95 95 97 Oxygen Delivery Method Sepsis Recent Fever Within 48 Hours Sepsis New/Unexplained Change in Mental Status Sepsis Action Taken by Nursing 06/24/23 02:50 06/24/23 03:00 06/24/23 03:00 Temperature Temperature Source Pulse Rate 68 69 Pulse Rate [Apical] Pulse Rate from SpO2 Sensor 68 69 Respiratory Rate 15 20 Respiratory Effort / Characteristics Non-Labored Respiratory Depth Normal Respiratory Pattern Blood Pressure Blood Pressure [Right Arm] Blood Pressure Mean Blood Pressure Mean [Right Arm] Blood Pressure Position Blood Pressure Position [Right Arm] Pulse Oximetry 94 96 Oxygen Delivery Method Sepsis Recent Fever Within 48 Hours Sepsis New/Unexplained Change in Mental Status Sepsis Action Taken by Nursing 06/24/23 03:10 06/24/23 03:20 06/24/23 03:30 Temperature Temperature Source Pulse Rate 70 61 64 Pulse Rate [Apical] Pulse Rate from SpO2 Sensor 71 61 64 Respiratory Rate 20 23 18 Respiratory Effort / Characteristics Respiratory Depth Respiratory Pattern Blood Pressure Blood Pressure [Right Arm] Blood Pressure Mean Blood Pressure Mean [Right Arm] Blood Pressure Position Blood Pressure Position [Right Arm] Pulse Oximetry 96 94 96 Oxygen Delivery Method Sepsis Recent Fever Within 48 Hours Sepsis New/Unexplained Change in Mental Status Sepsis Action Taken by Nursing 06/24/23 03:40 06/24/23 03:50 06/24/23 04:00 Temperature Temperature Source Pulse Rate 67 63 64 Pulse Rate [Apical] Pulse Rate from SpO2 Sensor 66 63 64 Respiratory Rate 21 18 16 Respiratory Effort / Characteristics Respiratory Depth Respiratory Pattern Blood Pressure Blood Pressure [Right Arm] Blood Pressure Mean Blood Pressure Mean [Right Arm] Blood Pressure Position Blood Pressure Position [Right Arm] Pulse Oximetry 96 96 96 Oxygen Delivery Method Sepsis Recent Fever Within 48 Hours Sepsis New/Unexplained Change in Mental Status Sepsis Action Taken by Nursing 06/24/23 04:10 06/24/23 04:20 06/24/23 04:30 Temperature Temperature Source Pulse Rate 59 L 60 55 L Pulse Rate [Apical] Pulse Rate from SpO2 Sensor 58 L 61 55 L Respiratory Rate 20 14 19 Respiratory Effort / Characteristics Respiratory Depth Respiratory Pattern Blood Pressure Blood Pressure [Right Arm] Blood Pressure Mean Blood Pressure Mean [Right Arm] Blood Pressure Position Blood Pressure Position [Right Arm] Pulse Oximetry 96 96 96 Oxygen Delivery Method Sepsis Recent Fever Within 48 Hours Sepsis New/Unexplained Change in Mental Status Sepsis Action Taken by Nursing 06/24/23 04:40 06/24/23 04:50 06/24/23 05:00 Temperature Temperature Source Pulse Rate 59 L 61 Pulse Rate [Apical] Pulse Rate from SpO2 Sensor 58 L 61 Respiratory Rate 21 20 Respiratory Effort / Characteristics Non-Labored Respiratory Depth Normal Respiratory Pattern Regular Blood Pressure Blood Pressure [Right Arm] Blood Pressure Mean Blood Pressure Mean [Right Arm] Blood Pressure Position Blood Pressure Position [Right Arm] Pulse Oximetry 97 96 Oxygen Delivery Method Sepsis Recent Fever Within 48 Hours Sepsis New/Unexplained Change in Mental Status Sepsis Action Taken by Nursing 06/24/23 05:00 06/24/23 05:10 Temperature Temperature Source Pulse Rate 61 61 Pulse Rate [Apical] Pulse Rate from SpO2 Sensor 61 62 Respiratory Rate 21 17 Respiratory Effort / Characteristics Respiratory Depth Respiratory Pattern Blood Pressure Blood Pressure [Right Arm] Blood Pressure Mean Blood Pressure Mean [Right Arm] Blood Pressure Position Blood Pressure Position [Right Arm] Pulse Oximetry 95 94 Oxygen Delivery Method Sepsis Recent Fever Within 48 Hours Sepsis New/Unexplained Change in Mental Status Sepsis Action Taken by Nursing VITALS: Vitals are noted on the nurse's note and reviewed by myself. Vital signs stable. GENERAL: Well-developed, well-nourished, white male, who is very anxious on arrival. He is staring at the monitor car operator in the room. He is hyperverbal. HEAD: Normocephalic atraumatic. HEART: Regular rate and rhythm without murmurs gallops or rubs. LUNGS: Clear to auscultation bilaterally without wheezes, rales or rhonchi. No retractions or accessory muscle use. ABDOMEN: Positive normal bowel sounds x 4. Soft, nontender, without masses or organomegaly. No guarding or rebound tenderness. MUSCULOSKELETAL: No muscle atrophy, erythema, or edema noted. Medical Decision Making Differential Diagnosis Differential diagnosis includes, but is not limited to: Myocardial infarction, dysrhythmia, pericarditis, pneumothorax, aortic aneurysm/dissection, DVT/PE, anxiety, GERD, PUD, electrolyte imbalance, thyroid disorder, pneumonia, bronchitis, pancreatitis, and others Laboratory Data 06/23/23 23:05 06/23/23 23:05 Lab Results 06/23/23 Range/Units 23:05 WBC 11.57 H (4.8-10.8) K/ul RBC 4.97 (4.70-6.10) M/uL Hgb 13.2 L (14.0-18.0) g/dl Hct 40.8 L (42.0-52.0) % MCV 82.1 (80.0-100.0) fL MCH 26.6 (25.0-34.0) pg MCHC 32.4 (32.0-36.0) g/dL RDW Std Deviation 53.3 H (36.4-46.3) fL RDW Coeff of Adelia 17.9 H (11.5-14.5) % Plt Count 286 (130-400) K/uL MPV 9.2 L (9.4-12.4) fL Immature Gran % (Auto) 0.5 % Neut % (Auto) 80.0 % Lymph % (Auto) 11.1 % [place] % (Auto) 6.5 % Eos % (Auto) 1.2 % Baso % (Auto) 0.7 % Neut # (Auto) 9.25 H (1.40-6.50) K/uL Lymph # (Auto) 1.29 (1.20-3.40) K/uL [place] # (Auto) 0.75 H (0.11-0.59) K/uL Eos # (Auto) 0.14 (0.00-0.50) K/uL Baso # (Auto) 0.08 (0.00-0.20) K/uL Immature Gran # (Auto) 0.06 (0.01-0.20) K/uL PT 10.4 (9.0-12.0) Seconds INR 0.9 (0.9-1.1) APTT 27.9 (21.0-31.0) Seconds PTT Ratio 1.0 Sodium 138 (136-145) mmol/L Potassium 3.5 (3.5-5.1) mmol/L Chloride 103 (98-107) mmol/L Carbon Dioxide 27 (21-32) mmol/L Anion Gap 8 (3-11) BUN 6 (6-23) mg/dl Creatinine 0.45 L (0.6-1.4) mg/dl Est Cr Clr Drug Dosing 238.4 ml/min Est GFR ( Amer) > 150.0 ml/min Est GFR (Non-Af Amer) 135.7 ml/min BUN/Creatinine Ratio 13.3 (10-20) Glucose 100 H (70-99(Fasting)) mg/dl Calcium 10.0 (8.6-10.3) mg/dl Total Bilirubin 0.5 (0.2-1.0) mg/dl AST 39 (13-39) U/L ALT 24 (7-52) U/L Alkaline Phosphatase 165 H (34-104) U/L Troponin I High Sens 4.9 (0-20) pg/ml Total Protein 6.7 (6.0-8.3) gm/dl Albumin 3.7 (3.4-5.0) gm/dl Globulin 3.0 (2.5-4.0) gm/dl Albumin/Globulin Ratio 1.2 (0.9-2) MDM Narrative Physical exam and history were performed. Nursing notes, EMR, and Medication List were personally reviewed. No social concerns were identified as barriers to patients care. Patient appears to have chest pain symptoms bringing him to the ER. Patient was seen during a period of very high ER volume and acuity with extended wait times. Nursing protocol order have been performed and some of these are available for my review at the time of patient encounter. Patient's blood work is as above and was reviewed. He does not have a significant elevated white blood cell count, gross anemia, bandemia, or significant electrolyte imbalance. Transaminases are not diagnostic. Lipase normal. Troponin x1 is negative. Chest x-ray does not show acute process per my interpretation. Overall the patient appears well for discharge from the ER. He is very unhappy about this and is bargaining to stay in the hospital. He states there is no one to take care of him, however family has been able to provide him transport in the past. Patient does have outpatient services that he needs to use. I suspect there is a malingering component to the patient's presentation today. He is traveling between multiple hospitals, and it seems that he has chosen to come here most recently. At this time he is not having an acute cardiopulmonary event to warrant inpatient stay. Patient case was discussed with case management who will help with transport back to his home, that is roughly 45 minutes from here. Patient was given discharge instructions as below. The chart was completed utilizing ? Speech Voice Recognition Software. Grammatical errors, random word insertions, pronoun errors, and incomplete sentences are an occasional consequence of this system due to software limitations, ambient noise, and hardware issues. Any formal questions or concerns about the content, text, or information contained within the body of this dictation should be directly addressed to the provider for clarification. . Impression & Plan Atypical chest pain Discharge Plan Visit Data Chief Complaint: Cardiac Assessment Stated Complaint: CP, SOB HERE FOR SAME RECENTLY, [facility] ED Provider: [facility] ED Midlevel Provider: Louis Andrew Discharge Problem: Atypical chest pain Patient Disposition: Home - Self-Care Condition: Good Discharge Instructions Activity Restrictions/Additional Instructions: You were seen and evaluated today on an emergency basis only. This is not a substitute for, or an effort to provide, complete comprehensive medical care. It is not possible to recognize and treat all injuries or illnesses in a single emergency department visit. For this reason it is recommended that you followup with your Primary Care Physician in the next week for a recheck of your symptoms. Heart and lung testing in the ER today is very reassuring. Follow-up with your family doctor for ongoing care. Imaging studies such as CT scans, MRI, Xrays, and Ultrasounds performed at [facility] are initially reviewed by multiple providers. Studies will be formally read by Hospital Radiologists in the morning. If any changes in care are needed we will contact you. You are welcome to return to the emergency department anytime with new, worsening, or concerning symptoms. Forms Stand Alone Forms: [facility], Important Visit Information Prescriptions Prescriptions: No Action Unknown "Water" Pill 1 dose PO QAM Rx Instructions: PT UNSURE OF NAME OR STRENGTH OF MED, UNABLE TO VERIFY. sucralfate 100 mg/mL Suspension 1 g PO ACHS Qty: 400 0RF gabapentin 400 mg Capsule 400 mg PO TID@0900,1200,2100 Qty: 90 0RF oxycodone 5 mg tablet 5 mg PO Q6H PRN (Reason: moderate to severe pain) Qty: 14 0RF famotidine 20 mg Tablet 20 mg PO AMHS ascorbic acid (vitamin C) [Vitamin C] 500 mg Tablet 500 mg PO QAM duloxetine 60 mg Capsule,Delayed Release(Dr/Ec) 60 mg PO QAM melatonin 3 mg Tablet 3 mg PO HS pantoprazole 40 mg Tablet,Delayed Release (Dr/Ec) 40 mg PO QAM ferrous sulfate 325 mg (65 mg iron) Tablet 325 mg PO QDB solifenacin 10 mg Tablet 10 mg PO QAM Myrbetriq 50 mg Tablet Extended Release 24 Hr 50 mg PO QAM celecoxib 200 mg Capsule 200 mg PO AMHS trazodone 50 mg Tablet 50 mg PO HS fluticasone propionate 100 mcg/actuation Blister With Device 1 inh INHALATION AMHS lidocaine 5 % Adhesive Patch,Medicated 1 patch TOPICAL DAILY Rx Instructions: leave on most painful area for up to 12 hrs lidocaine HCl [Lidocaine Viscous] 2 % Solution 5 ml PO ACHS PRN (Reason: as directed) Rx Instructions: swish and spit Santyl 250 unit/gram Ointment 1 applic TOPICAL DAILY Rx Instructions: apply to foot ulceractions and cover w/ dry bandage diclofenac sodium 1 % Gel 2 g TOPICAL QID Anoro Ellipta 62.5-25 mcg/actuation Blister With Device 1 inh INHALATION QAM baclofen 10 mg Tablet See Rx Instructions .ROUTE .COMPLEX Rx Instructions: TAKES 20 MG QAM & NOON, THEN 30 MG QHS. apixaban 5 mg Tablet 5 mg PO AMHS polyethylene glycol 3350 [Miralax] 17 gram Powder In Packet 17 g PO AMHS Rx Instructions: mix in any 4-8 ounce beverage hold for loose stools oxybutynin chloride 10 mg Tablet Extended Release 24hr 10 mg PO QAM sennosides-docusate sodium 8.6-50 mg Tablet 2 tab-cap PO HS Rx Instructions: hold for loose stools potassium chloride 20 mEq Tablet,Er Particles/Crystals 20 meq PO AMHS acetaminophen 500 mg Tablet 500 mg PO .Q 4 HRS WHILE AWAKE Rx Instructions: use while awake bisacodyl 10 mg Suppository 10 mg [place] AMPM Rx Instructions: PER PT "MUST HAVE 'RED' ONES, NOT 'GREEN' ONES". hold for loose stools hydroxyzine HCl 25 mg Tablet 25 mg PO QAM lactulose 20 gram/30 mL Solution 20 g PO TID Rx Instructions: 30 ml morning,noon and before bedtime Naloxone Hcl 4 Mg/0.1ml Liquid See Rx Instructions .ROUTE .COMPLEX PRN (Reason: Opioid Overdose) Rx Instructions: administer 1 spray into 1 nostril for suspected opioid overdose. seek immediate medical attention prednisone 20 mg tablet 20 mg PO DAILY Qty: 10 0RF Rx Instructions: Take 2 tablets by mouth daily for 5 days albuterol sulfate 2.5 mg /3 mL (0.083 %) solution for nebulization 1.25 mg inhalation Q8H PRN (Reason: bronchospasm) Qty: 90 0RF Adult Multivitamin Gummies 200 mcg Tablet,Chewable 1 tab PO DAILY Referrals Referrals: Zunilda Rosa RN [Primary Care Provider] -
--- NOTE | 2023-06-24 07:34 | XRay Report ---
XR chest 1V not portable CLINICAL HISTORY: Chest pain, nonspecific TECHNIQUE: Single frontal radiograph of the chest was obtained. Comparison: Comparison is made to chest radiograph 06/19/2023 FINDINGS: Cervical spinal fixation hardware is seen. The cardiomediastinal silhouette is normal. The lungs are clear. No evidence of pleural effusion or pneumothorax. IMPRESSION: No acute chest disease. ACT 112: Negative or not required by law. Electronically signed by: Shahid Peter M.D. 06/24/2023 7:33 AM
--- NOTE | 2023-06-24 08:51 | Electrocardiogram Report ---
Test Reason : Blood Pressure : / mmHG Vent. Rate : 062 BPM Atrial Rate : 062 BPM P-R Int : 194 ms QRS Dur : 084 ms QT Int : 440 ms P-R-T Axes : 026 003 036 degrees QTc Int : 446 ms Normal sinus rhythm Left atrial enlargement Borderline ECG When compared with ECG of 19-JUN-2023 17:21, No significant change Confirmed by Javier Morejon ([id number]) on 06/24/2023 8:51:04 AM Referred By: REFERRED SELF Confirmed By:Javier Morejon
--- NOTE | 2023-06-24 12:20 | Emergency Department Note ---
ED Visit Note This is a 47-year-old male who was evaluated in the emergency department earlier this morning for concerns of chest pain. Patient was evaluated by my colleague, Louis Andrew PA-C. Please see his note for full history details, work-up and treatment plan. Patient was discharged from the emergency department and awaiting transportation via nonemergent EMS van. I was notified by RN when transportation arrived that patient was refusing to leave. Upon my evaluation, patient reports that he is not feeling well and notes "burning all over his body ." He denies worsening chest pain or shortness of breath. No abdominal pain or headaches. He is unable to describe his symptoms further. Following review of his chart, patient was recently admitted on 06/19 to 06/22 for sepsis. He had CT of the abdomen/pelvis obtained which demonstrated cystitis as well as chronic sacral decubitus ulcer with chronic osteomyelitis. Work-up today was also revi ewed and unremarkable for acute cardiopulmonary pathology. Discussed further options of care for patient. At this time, I do feel he is stable for discharge with close follow-up with his PCP for continued management. Patient states he does not have anybody to care for him at home and is refusing to leave. I did reach out to our case management who [facility]. Patient refused this. He does not currently meet medcal criteria for admission to the hospital but was offered to be admitted for rehab/SNF placement given he does not have any care workers to take care of him at home. He was agreeable to this. Case was discussed with hospitalist, Dr. Hermosillo who accepted patient to his service for further management. He was admitted in stable condition. .
--- NOTE | 2023-06-24 12:23 | History & Physical Report ---
Date of Service June 24, 2023 Assessment & Plan (1) Atypical chest pain: Plan: Discharged on following a short hospital stay due to suspected sepsis which was ruled out Back in the ER early this morning with chest pain and more alert generalized pain Initial EKG and troponin were unremarkable He will be admitted to med/telemetry to rule out any arrhythmias Remains free from any chest pain during my examination (2) Generalized body aches: Plan: Complains pain all over Has been on gabapentin, celecoxib, diclofenac gel, lidocaine for pain control Oxycodone was added during discharge on of this month He has been asking for more pain medications He was given Dilaudid 0.5 mg every 6 hourly as needed Has an appointment with outpatient pain therapist sometime this month Will ask for inpatient pain therapy consult (3) Abdominal pain: Plan: Complaining of abdominal pain We will get a repeat CT scan of the abdomen without contrast CT of the abdomen on did not show much change or abnormalities Has been getting PPIs and also sucralfate for possible peptic ulcer disease (4) Sacral decubitus ulcer, stage IV: Plan: With history of chronic osteomyelitis During last admission he was evaluated by ID specialist and did not recommend any more antibiotic He has been free from any fever and or chills Care will be consulted again (5) Chronic osteomyelitis of sacrum: Plan: Has leg wounds with history of chronic osteomyelitis (6) Paraplegia: Plan: Quadriplegic secondary to cervical cord injury in the past s/p surgery Has more weakness and cannot move the legs than the upper extremities History of DVT and saddle PE Has been on Eliquis We will continue with that CODE STATUS Full History of Present Illness Chief Complaint: Chest pain and generalized body aches Primary Care Provider: Znuilda Rosa RN 47 years old male with a significant past medical history of chronic diastolic heart failure EF of 60%, 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 Sepsis was ruled out and he did not have any infective source or any infection and he was seen by the ID specialist while in the hospital. He was sent home with oral oxygen: For additional pain control and he does have appointment with pain therapist as an outpatient. His gabapentin was increased to 400 mg from 300 mg q. 8 hourly on discharge. He is back in the ER today with chest pain and during examination he was complaining of pain all over. Abdominal pain without distention and without any nausea or vomiting. Denies any fever and or chills and denies any significant chest pain or shortness of breath during my examination. He is admission labs were unremarkable with troponin was not elevated. He was admitted to medical telemetry unit for continued care. Question of home health coverage was raised in the emergency room. grants manager consulted for that. Allergies Allergy/AdvReac Type Severity Reaction Status Date / Time No Known Allergies Allergy Verified 06/24/23 00:19 Home Medications Medication Instructions Recorded Confirmed Type Naloxone Hcl 4 Mg/0.1ml Liquid See Rx Instructions .Route 05/15/23 06/24/23 History .COMPLEX PRN Opioid Overdose acetaminophen 500 mg tablet 500 mg PO .Q 4 HRS WHILE AWAKE 05/15/23 06/24/23 History apixaban 5 mg tablet 5 mg PO AMHS 05/15/23 06/24/23 History ascorbic acid (vitamin C) 500 mg 500 mg PO QAM 05/15/23 06/24/23 History tablet (Vitamin C) baclofen 10 mg tablet See Rx Instructions .Route .COMPLEX 05/15/23 06/24/23 History bisacodyl 10 mg rectal suppository 10 mg AK AMPM 05/15/23 06/24/23 History celecoxib 200 mg capsule 200 mg PO AMHS 05/15/23 06/24/23 History collagenase clostridium histo. 250 1 applic topical DAILY 05/15/23 06/24/23 H istory unit/gram topical ointment (Santyl) diclofenac sodium 1 % topical gel 2 g topical QID 05/15/23 06/24/23 History duloxetine 60 mg capsule,delayed 60 mg PO QAM 05/15/23 06/24/23 History release famotidine 20 mg tablet 20 mg PO AMHS 05/15/23 06/24/23 History ferrous sulfate 325 mg (65 mg 325 mg PO QDB 05/15/23 06/24/23 History iron) tablet fluticasone propionate 100 1 inh inhalation AMHS 05/15/23 06/24/23 History mcg/actuation blister powder for inhalation hydroxyzine HCl 25 mg tablet 25 mg PO QAM 05/15/23 06/24/23 History lactulose 20 gram/30 mL oral 20 g PO TID 05/15/23 06/24/23 History solution lidocaine 5 % topical patch 1 patch topical DAILY 05/15/23 06/24/23 History lidocaine HCl 2 % mucosal solution 5 ml PO ACHS PRN as directed 05/15/23 06/24/23 History (Lidocaine Viscous) melatonin 3 mg tablet 3 mg PO HS 05/15/23 06/24/23 History mirabegron 50 mg tablet,extended 50 mg PO QAM 05/15/23 06/24/23 History release 24 hr (Myrbetriq) oxybutynin chloride 10 mg 10 mg PO QAM 05/15/23 06/24/23 History tablet,extended release 24 hr pantoprazole 40 mg tablet,delayed 40 mg PO QAM 05/15/23 06/24/23 History release polyethylene glycol 3350 17 gram 17 g PO AMHS 05/15/23 06/24/23 History oral powder packet (Miralax) potassium chloride 20 mEq 20 meq PO AMHS 05/15/23 06/24/23 History tablet,extended release(part/cryst) sennosides 8.6 mg-docusate sodium 2 tab-cap PO HS 05/15/23 06/24/23 History 50 mg tablet solifenacin 10 mg tablet 10 mg PO QAM 05/15/23 06/24/23 History trazodone 50 mg tablet 50 mg PO HS 05/15/23 06/24/23 History umeclidinium 62.5 mcg-vilanterol 1 inh inhalation QAM 05/15/23 06/24/23 History 25 mcg/actuation powdr for inhalation (Anoro Ellipta) albuterol sulfate 2.5 mg/3 mL 1.25 mg (1.5 mL) inhalation Q8H 05/19/23 06/24/23 Rx (0.083 %) solution for nebulization PRN bronchospasm #90 mL prednisone 20 mg tablet 20 mg PO DAILY #10 tabs 05/19/23 06/24/23 Rx Unknown "Water" Pill 1 dose PO QAM 06/19/23 06/24/23 History gabapentin 400 mg capsule 400 mg PO TID@0900,1200,2100 #90 06/21/23 06/24/23 Rx caps sucralfate 100 mg/mL oral 1 g (10 mL) PO ACHS #400 mL 06/21/23 06/24/23 Rx suspension oxycodone 5 mg tablet 5 mg PO Q6H PRN moderate to severe 06/22/23 06/24/23 Rx pain #14 tabs multivitamin with minerals-folic 1 tab PO DAILY 06/24/23 06/24/23 History acid 200 mcg chewable tablet (Adult Multivitamin Gummies) Past Med/Surg History Medical History Paraplegia Chronic osteomyelitis of sacrum Sacral decubitus ulcer, stage IV Complicated UTI (urinary tract infection) COPD exacerbation Social History Smoking Status: Former smoker Tobacco Type: Cigarettes Cigarettes Per Day: 40; Second Hand Exposure: Yes; Do You Dip or Chew Tobacco: No; Hx Alcohol Use: Yes Alcohol type: beer Hx Substance Use: Yes Last Used Substance: Unknown Preferred Language: [place] Communication Ability: Effective Tentering Machine Feeder Required: No Beliefs That Will Affect Care: None Current Living Situation: Alone and Family Feels Safe at Home: Yes Assistive Devices: Scooter/Electric Scooter and Wheelchair Review of Systems Review of Systems: All systems reviewed and are unremarkable except as noted below Physical Exam Physical Exam: Lying in bed with minimal distress and has been crying with pain Constitutional: well developed, well nourished, + ill appearing and + obese Eyes: PERRL, conjunctivae normal, anicteric sclerae ENMT: external ear and nose normal, oropharynx normal Neck: trachea midline, no thyromegaly Respiratory: no respiratory distress Auscultation: lungs clear to auscultation bilaterally Cardiovascular: Rate/Rhythm: regular rate and regular rhythm; not tachycardic Heart Sounds: normal S1 and normal S2; no murmur Extremities: + edema (Trace to 1+ edema bilateral) Gastrointestinal (Abdomen): Inspection/Auscultation: normal bowel sounds; abdomen not distended Percussion/Palpation: + abdomen tender and abdomen soft Musculoskeletal: No acute arthritis involving any joint Neurologic: Alert, awake and oriented x3. He is quadriplegic secondary to traumatic cervical cord injury in the past. Totally paraplegic but can move the upper ext remities. Remains bedbound Results & Data Results & Data Vital Signs (Past 12 Hours) Vital Signs Pulse Pulse Resp BP BP Pulse Ox O2 Del Method 06/24/23 09:15 65 18 108/72 95 Room Air 06/24/23 08:15 58 L 16 95/69 L 94 Room Air 06/24/23 06:00 69 21 95 06/24/23 06:00 107/73 06/24/23 05:50 57 L 20 96 06/24/23 05:40 54 L 18 95 06/24/23 05:30 57 L 18 95 06/24/23 05:29 106/67 06/24/23 05:29 58 L 16 95 06/24/23 05:20 54 L 17 95 06/24/23 05:10 61 17 94 06/24/23 05:00 61 21 95 06/24/23 04:50 61 20 96 06/24/23 04:40 59 L 21 97 06/24/23 04:30 55 L 19 96 06/24/23 04:20 60 14 96 06/24/23 04:10 59 L 20 96 06/24/23 04:00 64 16 96 06/24/23 03:50 63 18 96 06/24/23 03:40 67 21 96 06/24/23 03:30 64 18 96 06/24/23 03:20 61 23 94 06/24/23 03:10 70 20 96 06/24/23 03:00 69 20 96 06/24/23 02:50 68 15 94 06/24/23 02:40 64 21 97 06/24/23 02:30 61 23 95 06/24/23 02:20 59 L 20 95 06/24/23 02:10 58 L 21 96 06/24/23 02:00 55 L 21 96 06/24/23 01:50 62 20 97 06/24/23 01:40 61 18 97 06/24/23 01:30 65 14 97 06/24/23 01:30 62 18 125/89 97 Room Air 06/24/23 01:26 125/89 06/24/23 01:26 62 24 96 06/24/23 01:20 64 21 97 06/24/23 01:10 58 L 18 96 06/24/23 01:00 57 L 20 96 06/24/23 00:50 56 L 19 96 06/24/23 00:40 57 L 21 96 06/24/23 00:30 62 21 98 06/24/23 00:20 71 22 98 Laboratory Results Short CBC 06/23/23 Range/Units 23:05 WBC 11.57 H (4.8-10.8) K/ul Hgb 13.2 L (14.0-18.0) g/dl Hct 40.8 L (42.0-52.0) % Plt Count 286 (130-400) K/uL BMP 06/23/23 23:05 Sodium 138 Potassium 3.5 Chloride 103 Carbon Dioxide 27 BUN 6 Creatinine 0.45 L Glucose 100 H Calcium 10.0 Liver Function 06/23/23 Range/Units 23:05 Total Bilirubin 0.5 (0.2-1.0) mg/dl AST 39 (13-39) U/L ALT 24 (7-52) U/L Alkaline Phosphatase 165 H (34-104) U/L Albumin 3.7 (3.4-5.0) gm/dl Medications Administered Current Inpatient Medications Hydromorphone HCl (Hydromorphone Inj 0.5 Mg/0.5 Ml Syr) 0.5 mg IV Q6H PRN PRN Reason: Pain Stop: 07/08/23 12:12 Code Status & VTE Plan VTE Prophylaxis Plan VTE Prophylaxis will be ordered: Yes
[2023-06-24] MEDS ORDERED: BACLOFEN 10 MG TAB PO STA (13:59)
[2023-06-24] MEDS: HYDROmorphone INJ 0.5 MG/0.5 ML SYR IV PRN ×2 (14:34→20:54)
--- NOTE | 2023-06-24 15:58 | CT Scan Report ---
CT OF THE ABDOMEN AND PELVIS WITHOUT CONTRAST CLINICAL HISTORY: Abdominal pain. COMPARISON STUDY: CT of the abdomen and pelvis June 19, 2023. TECHNIQUE: Axial images of the abdomen and pelvis were obtained without IV contrast. Images were revi ewed in the axial, sagittal, and coronal planes. Automated exposure control was utilized for the areli dy. A dose lowering technique was utilized adhering to the principles of ALARA. FINDINGS: Linear and groundglass and densities within the lower lungs favor atelectasis or scarring. Several bilateral renal calculi measure up to 8 mm. There are no ureteral calculi. There is no hydron ephrosis. Suprapubic catheter within the bladder is present. The bladder is collapsed. A 1 cm bladder calculus is present. Evaluation of the remainder of the abdomen and pelvis is suboptimal on this une nhanced exam. Mild dilatation of the common bile duct is likely related to cholecystectomy. Spleen, a drenal glands and pancreas are unremarkable. There is no evidence for a bowel obstruction. Moderate a mount of stool within the colon and rectum is present. The appendix is not visualized. There is no ri ght lower quadrant inflammation. There is no lymphadenopathy. No fluid collections are present. Sacra l decubitus ulcer with chronic erosion of the sacrum and coccyx is noted. This is similar in appearan ce to prior studies. IMPRESSION: 1. Bilateral nephrolithiasis. No ureteral calculi. No hydronephrosis. 1 cm bladder calculus. Suprapub ic catheter in place. 2. Moderate amount of stool within the colon and rectum. No bowel obstruction. 3. No change in appearance of a sacral decubitus ulcer with chronic erosion of the distal sacrum and coccyx. This favors chronic osteomyelitis. ACT 112: Negative or not required by law. Electronically signed by: Teja Moreno M.D. 06/24/2023 3:56 PM
[2023-06-24] MEDS ORDERED: ALBUTEROL 0.083% NEBU SOLN 3 ML VIAL INH PRN (17:41)
[2023-06-24] MEDS ORDERED: LIDOCAINE VISCOUS 2% 100ML BOTTLE PO PRN (17:41)
[2023-06-24] MEDS: oxyCODONE HCL IR 5 MG TAB (IMMEDIATE RELEASE) PO PRN (18:32)
[2023-06-24] MEDS: POTASSIUM CHLORIDE CRTAB 20 MEQ TABCR PO SCH (20:53)
[2023-06-24] MEDS: bisacodyL 10 MG SUPP PR SCH ×2 (20:54→21:08)
[2023-06-24] MEDS: ACETAMINOPHEN 500 MG TAB PO SCH (20:54)
[2023-06-24] MEDS: POLYETHYLENE (MIRALAX) 17 GM PACK PO SCH (20:54)
[2023-06-24] MEDS: DICLOFENAC SOD 1% GEL 100 GM TUBE EXT SCH ×2 (20:55→21:08)
[2023-06-24] MEDS: LACTULOSE SYRUP 20 GM/30 ML UDC PO SCH ×2 (20:55→21:08)
[2023-06-24] MEDS: GABAPENTIN 400 MG CAP PO SCH (20:56)
[2023-06-24] MEDS: SUCRALFATE 1 GM/10 ML UDC PO SCH (20:56)
[2023-06-24] MEDS: FAMOTIDINE 20 MG TAB PO SCH (20:56)
[2023-06-24] MEDS: CeleBREX 200 MG CAP PO SCH (20:57)
[2023-06-24] MEDS: APIXABAN 5 MG TABLET PO SCH (20:57)
[2023-06-24] MEDS ORDERED: traZODone HCL 50 MG TAB PO SCH (21:00)
[2023-06-24] MEDS ORDERED: DOCUSATE SODIUM/SENNA 50/8.6MG TAB PO SCH (21:00)
[2023-06-24] MEDS ORDERED: BACLOFEN 10 MG TAB PO SCH (21:00)
[2023-06-24] MEDS ORDERED: MELATONIN 3 MG TAB PO SCH (21:00)
[2023-06-24] MEDS: FLUTICASONE FUROATE 100MCG 14 PUFFS/INHALER INH SCH (21:07)
[2023-06-25] MEDS: oxyCODONE HCL IR 5 MG TAB (IMMEDIATE RELEASE) PO PRN (04:47)
[2023-06-25 05:05] LABS: Basophils # (auto) 0.07 K/uL (0.00-0.20); Basophils % (auto) 0.9 %; Eosinophils % (auto) 1.3 %; Hematocrit (blood only) 37.9 % (42.0-52.0); Hemoglobin 11.9 g/dl (14.0-18.0); Immature Granulocytes # (auto) 0.02 K/uL (0.01-0.20); Immature Granulocytes % (auto) 0.3 %; Lymphocytes # (auto) 1.92 K/uL (1.20-3.40); Lymphocytes % (auto) 25.9 %; Mean Corpuscular Hemoglobin 26.3 pg (25.0-34.0); Mean Corpuscular Hgb Conc 31.4 g/dL (32.0-36.0); Mean Corpuscular Volume 83.8 fL (80.0-100.0); Mean Platelet Volume 9.4 fL (9.4-12.4); Monocytes % (auto) 9.4 %; Neutrophils # (auto) 4.61 K/uL (1.40-6.50); Neutrophils % (auto) 62.2 %; Platelet Count 257 K/uL (130-400); RDW Coefficient of Variation 18.7 % (11.5-14.5); RDW Standard Deviation 57.1 fL (36.4-46.3); Red Blood Count 4.52 M/uL (4.70-6.10); White Blood Count 7.42 K/ul (4.8-10.8)
[2023-06-25 05:35] LABS: Calcium 9.3 mg/dl (8.6-10.3)
[2023-06-25 05:41] LABS: BUN Creatinine Ratio 17.4 (10-20); Creatinine Clr Calc Pharmacy 155.5 ml/min; Est GFR (Non-African American) 113.8 ml/min
[2023-06-25] MEDS ORDERED: FERROUS SULFATE 325 MG TAB PO SCH (07:30)
[2023-06-25] MEDS: GABAPENTIN 400 MG CAP PO SCH ×2 (08:46→13:36)
[2023-06-25] MEDS: BACLOFEN 10 MG TAB PO SCH ×2 (08:46→13:36)
[2023-06-25] MEDS: FAMOTIDINE 20 MG TAB PO SCH (08:46)
[2023-06-25] MEDS: APIXABAN 5 MG TABLET PO SCH (08:47)
[2023-06-25] MEDS: CeleBREX 200 MG CAP PO SCH (08:47)
[2023-06-25] MEDS: POTASSIUM CHLORIDE CRTAB 20 MEQ TABCR PO SCH (08:48)
[2023-06-25] MEDS: ACETAMINOPHEN 500 MG TAB PO SCH ×3 (08:49→16:08)
[2023-06-25] MEDS: FLUTICASONE FUROATE 100MCG 14 PUFFS/INHALER INH SCH (08:50)
[2023-06-25] MEDS: DICLOFENAC SOD 1% GEL 100 GM TUBE EXT SCH ×2 (08:51→13:38)
[2023-06-25] MEDS: bisacodyL 10 MG SUPP PR SCH (08:51)
[2023-06-25] MEDS: LACTULOSE SYRUP 20 GM/30 ML UDC PO SCH ×2 (08:52→13:38)
[2023-06-25] MEDS: POLYETHYLENE (MIRALAX) 17 GM PACK PO SCH (08:52)
[2023-06-25] MEDS: SUCRALFATE 1 GM/10 ML UDC PO SCH ×2 (08:53→13:38)
[2023-06-25] MEDS: HYDROmorphone INJ 0.5 MG/0.5 ML SYR IV PRN ×2 (08:56→16:08)
[2023-06-25] MEDS ORDERED: VIBEGRON 75 MG TAB PO SCH (09:00)
[2023-06-25] MEDS ORDERED: CEROVITE ADV FORMULA TAB PO SCH (09:00)
[2023-06-25] MEDS ORDERED: LIDOCAINE 5% 1 PATCH TD SCH (09:00)
[2023-06-25] MEDS ORDERED: COLLAGENASE OINT 30 GM TUBE TOP SCH (09:00)
[2023-06-25] MEDS ORDERED: ASCORBIC ACID 500 MG TAB PO SCH (09:00)
[2023-06-25] MEDS ORDERED: PANTOprazole 40 MG TAB PO SCH (09:00)
[2023-06-25] MEDS ORDERED: UMECLIDINIUM/VILANTEROL 62.5/25MCG 7 PUFFS/INHALER INH SCH (09:00)
[2023-06-25] MEDS ORDERED: predniSONE 20 MG TAB PO SCH (09:00)
[2023-06-25] MEDS ORDERED: OXYBUTYNIN CHLORIDE XL 5 MG TABCR PO SCH ×2 (09:00)
[2023-06-25] MEDS ORDERED: DULoxetine HCL 60 MG CAP PO SCH (09:00)
[2023-06-25] MEDS ORDERED: hydrOXYzine HCl 25 MG TAB PO SCH (09:00)
[2023-06-25] MEDS ORDERED: oxyCODONE HCL IR 5 MG TAB (IMMEDIATE RELEASE) PO PRN (13:17)
--- NOTE | 2023-06-25 17:13 | Hospitalist Progress Note ---
Date of Service June 25, 2023 Assessment & Plan (1) Atypical chest pain: Plan: per admitting service notes: Discharged on following a short hospital stay due to suspected sepsis which was ruled out Back in the ER early this morning with chest pain and more alert generalized pain Initial EKG and troponin were unremarkable He will be admitted to med/telemetry to rule out any arrhythmias Remains free from any chest pain during my examination 06/25 troponin negative EKG no acute ischemia echo: 60-65% no LV segmental wall motion abnormalities there is mild concentric left ventricular hypertrophy chest pain resolved (2) Generalized body aches: Plan: Complains pain all over Has been on gabapentin, celecoxib, diclofenac gel, lidocaine for pain control Oxycodone was added during discharge on of this month He has been asking for more pain medications He was given Dilaudid 0.5 mg every 6 hourly as needed Has an appointment with outpatient pain therapist sometime this month Will ask for inpatient pain therapy consult 06/25 patient prefers to follow up with his own pain management clinic this coming week requesting few days supply of Oxycodone (3) Abdominal pain: Plan: Complaining of abdominal pain We will get a repeat CT scan of the abdomen without contrast CT of the abdomen on did not show much change or abnormalities Has been getting PPIs and also sucralfate for possible peptic ulcer disease 06/25 resolved (4) Sacral decubitus ulcer, stage IV: Plan: With history of chronic osteomyelitis During last admission he was evaluated by ID specialist and did not recommend any more antibiotic He has been free from any fever and or chills (5) Chronic osteomyelitis of sacrum: Plan: Has leg wounds with history of chronic osteomyelitis (6) Paraplegia: Plan: Quadriplegic secondary to cervical cord injury in the past s/p surgery Has more weakness and cannot move the legs than the upper extremities History of DVT and saddle PE Has been on Eliquis CODE STATUS Full Disposition ff up with PCP in 1 week Admission and Anticipated Discharge Date Admission Date: June 24, 2023 Subjective ff up for chest pain, etc seen resting in bed, comfortable friends/caregivers at bedside states he feels better today reports intermittent generalized pain- spasms, burning sensation at home no chest pain, dyspnea, palpitations, dizziness today no abdominal pain ,nausea no other symptoms states he is ready and would like to be discharged reassessed at around 5pm- still feeling good still ready for discharge Review of Systems Review of Systems: all noted and negative except for above Physical Exam Physical Exam: General- oriented x 3, not in distress, speaks in sentences with no effort or accessory muscle use Eyes- anicteric Neck- no JVD Lungs- clear breath sounds bilaterally, no rales/wheezes Heart- normal rate, regular rhythm; no murmurs Abdomen- normal bowel sounds, nondistended, soft, nontender Extremities- no pretibial edema, no calf tenderness Neuro- alert, oriented x 3; no gross focal neurologic deficits Skin- warm & dry Results & Data Results & Data Vital Signs (Past 12 Hours) Vital Signs Temp Pulse Pulse Resp BP Pulse Ox O2 Del Method 06/25/23 16:04 36.8 C 78 14 115/77 94 Room Air 06/25/23 13:53 60 06/25/23 11:50 36.9 C 84 15 107/73 95 Room Air 06/25/23 07:30 36.9 C 62 17 155/104 H 93 Room Air all noted and reviewed including below
--- NOTE | 2023-06-25 17:46 | Discharge Summary ---
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 Sepsis was ruled out and he did not have any infective source or any infection and he was seen by the ID specialist while in the hospital. He was sent home with oral oxygen: For additional pain control and he does have appointment with pain therapist as an outpatient. His gabapentin was increased to 400 mg from 300 mg q. 8 hourly on discharge. He is back in the ER today with chest pain and during examination he was complaining of pain all over. Abdominal pain without distention and without any nausea or vomiting. Denies any fever and or chills and denies any significant chest pain or shortness of breath during my examination. He is admission labs were unremarkable with troponin was not elevated. He was admitted to medical telemetry unit for continued care. Question of home health coverage was raised in the emergency room. linen manager consulted for that. Admission Exam Per Admitting Provider Physical Exam: Lying in bed with minimal distress and has been crying with pain Constitutional: well developed, well nourished, + ill appearing and + obese Eyes: PERRL, conjunctivae normal, anicteric sclerae ENMT: external ear and nose normal, oropharynx normal Neck: trachea midline, no thyromegaly Respiratory: no respiratory distress Auscultation: lungs clear to auscultation bilaterally Cardiovascular: Rate/Rhythm: regular rate and regular rhythm; not tachycardic Heart Sounds: normal S1 and normal S2; no murmur Extremities: + edema (Trace to 1+ edema bilateral) Gastrointestinal (Abdomen): Inspection/Auscultation: normal bowel sounds; abdomen not distended Percussion/Palpation: + abdomen tender and abdomen soft Musculoskeletal: No acute arthritis involving any joint Neurologic: Alert, awake and oriented x3. He is quadriplegic secondary to traumatic cervical cord injury in the past. Totally paraplegic but can move the upper extremities. Remains bedbound Principal Dx & Hospital Course #1 = Principal Diagnosis (1) Atypical chest pain: per admitting service notes: Discharged on following a short hospital stay due to suspected sepsis which was ruled out Back in the ER early this morning with chest pain and more alert generalized pain Initial EKG and troponin were unremarkable He will be admitted to med/telemetry to rule out any arrhythmias Remains free from any chest pain during my examination 06/25 troponin negative EKG no acute ischemia echo: 60-65% no LV segmental wall motion abnormalities there is mild concentric left ventricular hypertrophy chest pain resolved (2) Generalized body aches: Complains pain all over Has been on gabapentin, celecoxib, diclofenac gel, lidocaine for pain control Oxycodone was added during discharge on of this month He has been asking for more pain medications He was given Dilaudid 0.5 mg every 6 hourly as needed Has an appointment with outpatient pain therapist sometime this month Will ask for inpatient pain therapy consult 06/25 patient prefers to follow up with his own pain management clinic this coming week requesting few days supply of Oxycodone (3) Abdominal pain: Complaining of abdominal pain We will get a repeat CT scan of the abdomen without contrast CT of the abdomen on did not show much change or abnormalities Has been getting PPIs and also sucralfate for possible peptic ulcer disease 06/25 resolved (4) Sacral decubitus ulcer, stage IV: With history of chronic osteomyelitis During last admission he was evaluated by ID specialist and did not recommend any more antibiotic He has been free from any fever and or chills (5) Chronic osteomyelitis of sacrum: Has leg wounds with history of chronic osteomyelitis (6) Paraplegia: Quadriplegic secondary to cervical cord injury in the past s/p surgery Has more weakness and cannot move the legs than the upper extremities History of DVT and saddle PE Has been on Eliquis CODE STATUS Full Disposition ff up with PCP in 1 week Discharge Exam General- oriented x 3, not in distress, speaks in sentences with no effort or accessory muscle use Eyes- anicteric Neck- no JVD Lungs- clear breath sounds bilaterally, no rales/wheezes Heart- normal rate, regular rhythm; no murmurs Abdomen- normal bowel sounds, nondistended, soft, nontender Extremities- no pretibial edema, no calf tenderness Neuro- alert, oriented x 3; no gross focal neurologic deficits Skin- warm & dry Updated Medication List Medication Instructions Recorded Confirmed Type Naloxone Hcl 4 Mg/0.1ml Liquid See Rx Instructions .Route 05/15/23 06/24/23 History .COMPLEX PRN Opioid Overdose acetaminophen 500 mg tablet 500 mg PO .Q 4 HRS WHILE AWAKE 05/15/23 06/24/23 History apixaban 5 mg tablet 5 mg PO AMHS 05/15/23 06/24/23 History ascorbic acid (vitamin C) 500 mg 500 mg PO QAM 05/15/23 06/24/23 History tablet (Vitamin C) bisacodyl 10 mg rectal suppository 10 mg HI AMPM 05/15/23 06/24/23 History celecoxib 200 mg capsule 200 mg PO AMHS 05/15/23 06/24/23 History collagenase clostridium histo. 250 1 applic topical DAILY 05/15/23 06/24/23 History unit/gram topical ointment (Santyl) diclofenac sodium 1 % topical gel 2 g topical QID 05/15/23 06/24/23 History duloxetine 60 mg capsule,delayed 60 mg PO QAM 05/15/23 06/24/23 History release famotidine 20 mg tablet 20 mg PO AMHS 05/15/23 06/24/23 History ferrous sulfate 325 mg (65 mg 325 mg PO QDB 05/15/23 06/24/23 History iron) tablet fluticasone propionate 100 1 inh inhalation AMHS 05/15/23 06/24/23 History mcg/actuation blister powder for inhalation hydroxyzine HCl 25 mg tablet 25 mg PO QAM 05/15/23 06/24/23 History lactulose 20 gram/30 mL oral 20 g PO TID 05/15/23 06/24/23 History solution lidocaine 5 % topical patch 1 patch topical DAILY 05/15/23 06/24/23 History lidocaine HCl 2 % mucosal solution 5 ml PO ACHS PRN as directed 05/15/23 06/24/23 History (Lidocaine Viscous) melatonin 3 mg tablet 3 mg PO HS 05/15/23 06/24/23 History mirabegron 50 mg tablet,extended 50 mg PO QAM 05/15/23 06/24/23 History release 24 hr (Myrbetriq) oxybutynin chloride 10 mg 10 mg PO QAM 05/15/23 06/24/23 History tablet,extended release 24 hr pantoprazole 40 mg tablet,delayed 40 mg PO QAM 05/15/23 06/24/23 History release polyethylene glycol 3350 17 gram 17 g PO AMHS 05/15/23 06/24/23 History oral powder packet (Miralax) potassium chloride 20 mEq 20 meq PO AMHS 05/15/23 06/24/23 History tablet,extended release(part/cryst) sennosides 8.6 mg-docusate sodium 2 tab-cap PO HS 05/15/23 06/24/23 History 50 mg tablet solifenacin 10 mg tablet 10 mg PO QAM 05/15/23 06/24/23 History trazodone 50 mg tablet 50 mg PO HS 05/15/23 06/24/23 History umeclidinium 62.5 mcg-vilanterol 1 inh inhalation QAM 05/15/23 06/24/23 History 25 mcg/actuation powdr for inhalation (Anoro Ellipta) albuterol sulfate 2.5 mg/3 mL 1.25 mg (1.5 mL) inhalation Q8H 05/19/23 06/24/23 Rx (0.083 %) solution for nebulization PRN bronchospasm #90 mL prednisone 20 mg tablet 20 mg PO DAILY #10 tabs 05/19/23 06/24/23 Rx Unknown "Water" Pill 1 dose PO QAM 06/19/23 06/24/23 History gabapentin 400 mg capsule 400 mg PO TID@0900,1200,2100 #90 06/21/23 06/24/23 Rx caps sucralfate 100 mg/mL oral 1 g (10 mL) PO ACHS #400 mL 06/21/23 06/24/23 Rx suspension multivitamin with minerals-folic 1 tab PO DAILY 06/24/23 06/24/23 History acid 200 mcg chewable tablet (Adult Multivitamin Gummies) baclofen 10 mg tablet 10 mg PO UD #20 tabs 06/25/23 Rx oxycodone 5 mg tablet 5 mg PO Q6H PRN moderate to severe 06/25/23 Rx pain #12 tabs Hospital Stay Data Consultations 06/24/23 11:01 ED Decision to Admit Stat 06/25/23 00:02 Consult Pain Management Routine Diagnostic Imagining Performed Laboratory Results WBC 7.42 K/ul (4.8-10.8) 06/25/23 04:48 RBC 4.52 M/uL (4.70-6.10) L 06/25/23 04:48 Hgb 11.9 g/dl (14.0-18.0) L 06/25/23 04:48 Hct 37.9 % (42.0-52.0) L 06/25/23 04:48 MCV 83.8 fL (80.0-100.0) 06/25/23 04:48 MCH 26.3 pg (25.0-34.0) 06/25/23 04:48 MCHC 31.4 g/dL (32.0-36.0) L 06/25/23 04:48 RDW Std Deviation 57.1 fL (36.4-46.3) H 06/25/23 04:48 RDW Coeff of Adelia 18.7 % (11.5-14.5) H 06/25/23 04:48 Plt Count 257 K/uL (130-400) 06/25/23 04:48 MPV 9.4 fL (9.4-12.4) 06/25/23 04:48 Immature Gran % (Auto) 0.3 % 06/25/23 04:48 Neut % (Auto) 62.2 % 06/25/23 04:48 Lymph % (Auto) 25.9 % 06/25/23 04:48 [place] % (Auto) 9.4 % 06/25/23 04:48 Eos % (Auto) 1.3 % 06/25/23 04:48 Baso % (Auto) 0.9 % 06/25/23 04:48 Neut # (Auto) 4.61 K/uL (1.40-6.50) 06/25/23 04:48 Lymph # (Auto) 1.92 K/uL (1.20-3.40) 06/25/23 04:48 [place] # (Auto) 0.70 K/uL (0.11-0.59) H 06/25/23 04:48 Eos # (Auto) 0.10 K/uL (0.00-0.50) 06/25/23 04:48 Baso # (Auto) 0.07 K/uL (0.00-0.20) 06/25/23 04:48 Immature Gran # (Auto) 0.02 K/uL (0.01-0.20) 06/25/23 04:48 PT 10.4 Seconds (9.0-12.0) 06/23/23 23:05 INR 0.9 (0.9-1.1) 06/23/23 23:05 APTT 27.9 Seconds (21.0-31.0) 06/23/23 23:05 PTT Ratio 1.0 06/23/23 23:05 Sodium 141 mmol/L (136-145) 06/25/23 04:48 Potassium 4.0 mmol/L (3.5-5.1) 06/25/23 04:48 Chloride 107 mmol/L (98-107) 06/25/23 04:48 Carbon Dioxide 28 mmol/L (21-32) 06/25/23 04:48 Anion Gap 6 (3-11) 06/25/23 04:48 BUN 12 mg/dl (6-23) 06/25/23 04:48 Creatinine 0.69 mg/dl (0.6-1.4) 06/25/23 04:48 Est Cr Clr Drug Dosing 155.5 ml/min 06/25/23 04:48 Est GFR ( Amer) 132.0 ml/min 06/25/23 04:48 Est GFR (Non-Af Amer) 113.8 ml/min 06/25/23 04:48 BUN/Creatinine Ratio 17.4 (10-20) 06/25/23 04:48 Glucose 108 mg/dl (70-99(Fasting)) H 06/25/23 04:48 Calcium 9.3 mg/dl (8.6-10.3) 06/25/23 04:48 Total Bilirubin 0.5 mg/dl (0.2-1.0) 06/23/23 23:05 AST 39 U/L (13-39) 06/23/23 23:05 ALT 24 U/L (7-52) 06/23/23 23:05 Alkaline Phosphatase 165 U/L (34-104) H 06/23/23 23:05 Troponin I High Sens 4.8 pg/ml (0-20) 06/25/23 04:59 Total Protein 6.7 gm/dl (6.0-8.3) 06/23/23 23:05 Albumin 3.7 gm/dl (3.4-5.0) 06/23/23 23:05 Globulin 3.0 gm/dl (2.5-4.0) 06/23/23 23:05 Albumin/Globulin Ratio 1.2 (0.9-2) 06/23/23 23:05 Impressions Chest X-Ray 06/23/23 23:11 XR chest 1V not portable CLINICAL HISTORY: Chest pain, nonspecific TECHNIQUE: Single frontal radiograph of the chest was obtained. Comparison: Comparison is made to chest radiograph 06/19/2023 FINDINGS: Cervical spinal fixation hardware is seen. The cardiomediastinal silhouette is normal. The lungs are clear. No evidence of pleural effusion or pneumothorax. IMPRESSION: No acute chest disease. ACT 112: Negative or not required by law. Electronically signed by: Shahid Peter M.D. 06/24/2023 7:33 AM Abdomen/Pelvis CT 06/24/23 12:33 CT OF THE ABDOMEN AND PELVIS WITHOUT CONTRAST CLINICAL HISTORY: Abdominal pain. COMPARISON STUDY: CT of the abdomen and pelvis June 19, 2023. TECHNIQUE: Axial images of the abdomen and pelvis were obtained without IV contrast. Images were reviewed in the axial, sagittal, and coronal planes. Automated exposure control was utilized for the study. A dose lowering technique was utilized adhering to the principles of ALARA. FINDINGS: Linear and groundglass and densities within the lower lungs favor atelectasis or scarring. Several bilateral renal calculi measure up to 8 mm. There are no ureteral calculi. There is no hydronephrosis. Suprapubic catheter within the bladder is present. The bladder is collapsed. A 1 cm bladder calculus is present. Evaluation of the remainder of the abdomen and pelvis is suboptimal on this unenhanced exam. Mild dilatation of the common bile duct is likely related to cholecystectomy. Spleen, adrenal glands and pancreas are unremarkable. There is no evidence for a bowel obstruction. Moderate amount of stool within the colon and rectum is present. The appendix is not visualized. There is no right lower quadrant inflammation. There is no lymphadenopathy. No fluid collections are present. Sacral decubitus ulcer with chronic erosion of the sacrum and coccyx is noted. This is similar in appearance to prior studies. IMPRESSION: 1. Bilateral nephrolithiasis. No ureteral calculi. No hydronephrosis. 1 cm bladder calculus. Suprapubic catheter in place. 2. Moderate amount of stool within the colon and rectum. No bowel obstruction. 3. No change in appearance of a sacral decubitus ulcer with chronic erosion of the distal sacrum and coccyx. This favors chronic osteomyelitis. ACT 112: Negative or not required by law. Electronically signed by: Teja Moreno M.D. 06/24/2023 3:56 PM Pending Results Patient Have Any Pending Studies at Discharge: No Discharge Instructions Given to Patient (Per Discharging Provider) PLEASE USE OXYCODONE CAUTIOUSLY AND USE ONLY INSTRUCTED. PLEASE CALL YOUR PRIMARY CARE PHYSICIAN OR RETURN TO THE ER IF WITH WORSENING OF SYMPTOMS, INCLUDING FEVER/CHILLS, PAIN, SHORTNESS OF BREATH, WEAKNESS, NAUSEA, ETC. FOLLOW UP WITH PRIMARY CARE PHYSICIAN OUTLINED ABOVE. Total Time Total Time Spent Total Time Spent (In Minutes): >30 minutes
--- NOTE | 2023-06-27 19:33 | Electrocardiogram Report ---
Test Reason : Blood Pressure : / mmHG Vent. Rate : 069 BPM Atrial Rate : 069 BPM P-R Int : 184 ms QRS Dur : 088 ms QT Int : 398 ms P-R-T Axes : 023 -03 008 degrees QTc Int : 426 ms Normal sinus rhythm Normal ECG When compared with ECG of 23-JUN-2023 22:53, No significant change was found Confirmed by Josh Nath ([id number]) on 06/27/2023 7:32:44 PM Referred By: REFERRED SELF Confirmed By:Josh Nath
== END 2023-06-25 19:01 | disposition home health service (06) | DRG 313 ==
LOC: ED 22:44 → SUATTDRO 06-24 12:13 → EDINP 06-24 12:13 → 2W 06-24 17:40

== ENCOUNTER 2023-07-08 16:05 | Inpatient (IN) ==
--- NOTE | 2023-07-08 16:47 | Emergency Department Note ---
Impression & Plan Complicated UTI (urinary tract infection) ED Provider Note NAME: NEHEMIAS SANTOS AGE: 47 SEX: M : 1975 ARRIVES VIA: Ambulance INFORMANT: Patient, ED PROVIDER(S): Rhett Frederick MD CHIEF COMPLAINT: Urinary issues HPI: This is a 47-year-old male with history of paraplegia, chronic indwelling Sanchez presenting for urinary symptoms. Patient he has had issues with his suprapubic site with some slight leakage around the Sanchez. Otherwise he notes symptoms of chest pain. He feels that he is having his urosepsis again which she had a few weeks/months ago. Otherwise he notes that his chest feels congested for the past 2 days. He notes significant cough, productive as well as difficulty breathing. He does continue to smoke. Otherwise he is had chills, fatigue, shortness of breath, no chest pain. No diarrhea. ROS: See above HPI for pertinent positives & negatives. A total of 10 systems reviewed and were otherwise negative. PAST MEDICAL HISTORY: See Below PAST SURGICAL HISTORY: See Below FAMILY HISTORY: See Below SOCIAL HISTORY: See Below HOME MEDICATIONS: See Below ALLERGIES: See Below VITALS: See Below PHYSICAL EXAMINATION: General: resting comfortably in no acute distress Head: Normocephalic and atraumatic Eyes: Normal inspection, extraocular muscles intact Ear, nose, throat: Normal external exam Neck: Normal range of motion Respiratory: Significant rhonchi on lung forrester, Cardiovascular: Regular rate/rhythm, no murmur GI: Suprapubic site shows no erythema, slight clear discharge versus urine Extremities: nontender, moves all extremities Neuro: The patient awake and alert, appropriately conversive, no focal deficits, symmetric faces Skin: Warm, dry, and intact MEDICAL DECISION MAKING: This is a 47-year-old male with history of paraplegia chronic indwelling Sanchez presenting for urinary symptoms. Patient had previous urosepsis. External records including previous discharge summary show urosepsis -Patient is significantly rhonchorous in all lung forrester, will get chest x-ray to help evaluate -Lab work does not reveal patient cytosis, UTI is noted on urinalysis -Will give broad-spectrum antibiotic coverage at this time based on previous culture data -Will admit for further workup, chest x-ray reveals cardiomegaly without acute process Triage Nursing notes reviewed. Prior medical records reviewed Vital Signs: reviewed and remarkable for no significant abnormalities Differential diagnosis: Sepsis, pneumonia, UTI, urosepsis, ER treatment provided: See below Diagnostics interpreted by me: ECG: ECG independently interpreted by me with normal sinus rhythm, rate of 69, normal axis, normal [place], normal QRS, normal QTc, no ST segment elevations consistent with STEMI criteria Cardiac Monitoring: An order was placed for continuous cardiac monitoring. The monitor shows a rate of 110 with sinus rhythm Laboratory studies: As stated above and show below. Imaging studies: See below. Radiographic imaging was reviewed by myself Consultation(s): None Past Med/Surg History Medical History History of pulmonary embolism Chronic pain Suprapubic catheter Paraplegia Chronic osteomyelitis of sacrum Sacral decubitus ulcer, stage IV Surgical History No pertinent past surgical history Social History Smoking Status: Current every day smoker Tobacco Type: Cigarettes Cigarettes Per Day: 1 pack; Second Hand Exposure: Yes; Do You Dip or Chew Tobacco: Yes; Hx Alcohol Use: No Hx Substance Use: Yes Last Used Substance: Days (ago) Last Used Substance Other:: 07/07/23 last used Preferred Language: Sami Communication Ability: Effective Non Morse Intercept Technician Required: No Beliefs That Will Affect Care: None Current Living Situation: Alone Current Living Situation Comment: alone with 24/7 home care Feels Safe at Home: Yes Safety Concerns: Feels Safe At This Time Assistive Devices: Scooter/Electric Scooter Allergies Allergies Allergy/AdvReac Type Severity Reaction Status Date / Time No Known Allergies Allergy Verified 06/24/23 00:19 Home Meds Home Medications Medication Instructions Recorded Confirmed Naloxone Hcl 4 Mg/0.1ml Liquid See Rx Instructions .Route 05/15/23 07/08/23 .COMPLEX PRN Opioid Overdose acetaminophen 500 mg tablet 500 mg PO .Q 4 HRS WHILE AWAKE 05/15/23 07/08/23 apixaban 5 mg tablet 5 mg PO AMHS 05/15/23 07/08/23 ascorbic acid (vitamin C) 500 mg 500 mg PO QAM 05/15/23 07/08/23 tablet (Vitamin C) bisacodyl 10 mg rectal suppository 10 mg [place] AMPM 05/15/23 07/08/23 celecoxib 200 mg capsule 200 mg PO AMHS 05/15/23 07/08/23 collagenase clostridium histo. 250 1 applic topical DAILY 05/15/23 07/08/23 unit/gram topical ointment (Santyl) diclofenac sodium 1 % topical gel 2 g topical QID 05/15/23 07/08/23 duloxetine 60 mg capsule,delayed 60 mg PO QAM 05/15/23 07/08/23 release famotidine 20 mg tablet 20 mg PO AMHS 05/15/23 07/08/23 ferrous sulfate 325 mg (65 mg 325 mg PO QDB 05/15/23 07/08/23 iron) tablet fluticasone propionate 100 1 inh inhalation AMHS 05/15/23 07/08/23 mcg/actuation blister powder for inhalation hydroxyzine HCl 25 mg tablet 25 mg PO QAM 05/15/23 07/08/23 lactulose 20 gram/30 mL oral 20 g PO TID 05/15/23 07/08/23 solution lidocaine 5 % topical patch 1 patch topical DAILY 05/15/23 07/08/23 lidocaine HCl 2 % mucosal solution 5 ml PO ACHS PRN as directed 05/15/23 07/08/23 (Lidocaine Viscous) melatonin 3 mg tablet 3 mg PO HS 05/15/23 07/08/23 mirabegron 50 mg tablet,extended 50 mg PO QAM 05/15/23 07/08/23 release 24 hr (Myrbetriq) oxybutynin chloride 10 mg 10 mg PO QAM 05/15/23 07/08/23 tablet,extended release 24 hr pantoprazole 40 mg tablet,delayed 40 mg PO QAM 05/15/23 07/08/23 release polyethylene glycol 3350 17 gram 17 g PO AMHS 05/15/23 07/08/23 oral powder packet (Miralax) potassium chloride 20 mEq 20 meq PO AMHS 05/15/23 07/08/23 tablet,extended release(part/cryst) sennosides 8.6 mg-docusate sodium 2 tab-cap PO HS 05/15/23 07/08/23 50 mg tablet solifenacin 10 mg tablet 10 mg PO QAM 05/15/23 07/08/23 trazodone 50 mg tablet 50 mg PO HS 05/15/23 07/08/23 umeclidinium 62.5 mcg-vilanterol 1 inh inhalation QAM 05/15/23 07/08/23 25 mcg/actuation powdr for inhalation (Anoro Ellipta) Unknown "Water" Pill 1 dose PO QAM 06/19/23 07/08/23 multivitamin with minerals-folic 1 tab PO DAILY 06/24/23 07/08/23 acid 200 mcg chewable tablet (Adult Multivitamin Gummies) Previous Rx's Medication Instructions Recorded albuterol sulfate 2.5 mg/3 mL 1.25 mg (1.5 mL) inhalation Q8H 05/19/23 (0.083 %) solution for nebulization PRN bronchospasm #90 mL gabapentin 400 mg capsule 400 mg PO TID@0900,1200,2100 #90 06/21/23 caps sucralfate 100 mg/mL oral 1 g (10 mL) PO ACHS #400 mL 06/21/23 suspension baclofen 10 mg tablet 10 mg PO UD #20 tabs 06/25/23 oxycodone 5 mg tablet 5 mg PO Q6H PRN moderate to severe 06/25/23 pain #12 tabs Results & Data (ED) Vital Signs Vital Signs - 24 hr 07/08/23 16:20 Temperature 36.3 C L Temperature Source Oral Pulse Rate 38 L Respiratory Rate 24 Respiratory Effort / Characteristics Non-Labored Spontaneous Respiratory Depth Normal Respiratory Pattern Regular Blood Pressure 117/80 Blood Pressure Mean 92 Pulse Oximetry 89 L Oxygen Delivery Method Room Air Sepsis Recent Fever Within 48 Hours No Sepsis New/Unexplained Change in Mental Status N/A Sepsis Action Taken by Nursing No Action Required Laboratory Data 07/09/23 09:35 07/10/23 05:32 Lab Results 07/08/23 07/08/23 Range/Units 16:55 18:30 WBC 10.33 (4.8-10.8) K/ul RBC 4.44 L (4.70-6.10) M/uL Hgb 12.0 L (14.0-18.0) g/dl Hct 37.2 L (42.0-52.0) % MCV 83.8 (80.0-100.0) fL MCH 27.0 (25.0-34.0) pg MCHC 32.3 (32.0-36.0) g/dL RDW Std Deviation 55.8 H (36.4-46.3) fL RDW Coeff of Adelia 18.1 H (11.5-14.5) % Plt Count 277 (130-400) K/uL MPV 9.9 (9.4-12.4) fL Immature Gran % (Auto) 0.2 % Neut % (Auto) 69.5 % Lymph % (Auto) 15.0 % [place] % (Auto) 8.9 % Eos % (Auto) 5.8 % Baso % (Auto) 0.6 % Neut # (Auto) 7.18 H (1.40-6.50) K/uL Lymph # (Auto) 1.55 (1.20-3.40) K/uL [place] # (Auto) 0.92 H (0.11-0.59) K/uL Eos # (Auto) 0.60 H (0.00-0.50) K/uL Baso # (Auto) 0.06 (0.00-0.20) K/uL Immature Gran # (Auto) 0.02 (0.01-0.20) K/uL Sodium 138 (136-145) mmol/L Potassium 3.9 (3.5-5.1) mmol/L Chloride 105 (98-107) mmol/L Carbon Dioxide 25 (21-32) mmol/L Anion Gap 8 (3-11) BUN 15 (6-23) mg/dl Creatinine 0.49 L (0.6-1.4) mg/dl Est Cr Clr Drug Dosing Not Reportable Est GFR ( Amer) > 150.0 ml/min Est GFR (Non-Af Amer) 131.0 ml/min BUN/Creatinine Ratio 30.6 H (10-20) Glucose 88 (70-99(Fasting)) mg/dl Lactate 1.3 (0.4-2.0) mmol/L Calcium 9.0 (8.6-10.3) mg/dl Total Bilirubin 0.5 (0.2-1.0) mg/dl AST 22 (13-39) U/L ALT 9 (7-52) U/L Alkaline Phosphatase 148 H (34-104) U/L Total Protein 6.4 (6.0-8.3) gm/dl Albumin 3.6 (3.4-5.0) gm/dl Globulin 2.8 (2.5-4.0) gm/dl Albumin/Globulin Ratio 1.3 (0.9-2) Lipase 18 (11-82) U/L Adenovirus (PCR) Not Detected (NotDetected) B. pertussis DNA (PCR) Not Detected (NotDetected) B.parapertussis DNA PCR Not Detected (NotDetected) C. pneumoniae DNA (PCR) Not Detected (NotDetected) Coronavirus OC43 (PCR) Not Detected (NotDetected) Coronavirus HKU1 (PCR) Not Detected (NotDetected) Coronavirus 229E (PCR) Not Detected (NotDetected) SARS-CoV-2 (PCR) Not Detected (NotDetected) Coronavirus NL63 (PCR) Not Detected (NotDetected) Human Metapneumovir PCR Not Detected (NotDetected) Influenza Type A (PCR) Not Detected (NotDetected) Influenza Type B (PCR) Not Detected (NotDetected) M. pneumoniae (PCR) Not Detected (NotDetected) Parainfluenza 1 (PCR) Not Detected (NotDetected) Parainfluenza 2 (PCR) Not Detected (NotDetected) Parainfluenza 3 (PCR) Not Detected (NotDetected) Parainfluenza 4 (PCR) Not Detected (NotDetected) RSV (PCR) DETECTED A* (NotDetected) Entero/Rhino (PCR) Not Detected (NotDetected) Staphylococcus sp PCR DETECTED A (NotDetected) mecA/C-Methicil Resis Gene DETECTED A (NotDetected) Staph epidermidis (PCR) DETECTED A (NotDetected) Bld Cult ID Panel PCR See PCR Comment (NotDetected) Administered Medications Acetaminophen (Acetaminophen 325 Mg Tab) 650 mg PO Q4H PRN PRN Reason: pain/fever Stop: 08/07/23 22:12 Last Admin: 07/09/23 09:51 Dose: 650 mg Documented By: TMF Albuterol (Albut/Ipratrop 3mg/0.5mg Neb 3 Ml Vial) 3 ml NEB Q4R ROSALES; Protocol Stop: 08/07/23 22:59 Last Admin: 07/10/23 22:58 Dose: 3 ml Documented By: Admin: 07/10/23 19:40 Dose: 3 ml Documented By: Admin: 07/10/23 14:18 Dose: 3 ml Documented By: Admin: 07/10/23 11:00 Dose: 3 ml Documented By: Admin: 07/10/23 07:55 Dose: 3 ml Documented By: EML(2) Admin: 07/10/23 04:34 Dose: Not Given Documented By: Admin: 07/09/23 22:48 Dose: Not Given Documented By: Admin: 07/09/23 19:38 Dose: 3 ml Documented By: HMRenetta Admin: 07/09/23 14:48 Dose: 3 ml Documented By: BERNICE(2) Admin: 07/09/23 12:06 Dose: 3 ml Documented By: Admin: 07/09/23 08:01 Dose: Not Given Documented By: BERNICE(2) Admin: 07/09/23 04:14 Dose: Not Given Documented By: Admin: 07/09/23 00:40 Dose: Not Given Documented By: NEHA Apixaban (Apixaban 5 Mg Tablet) 5 mg PO BID ROSALES Stop: 08/07/23 22:12 Last Admin: 07/10/23 21:13 Dose: 5 mg Documented By: Admin: 07/10/23 09:36 Dose: 5 mg Documented By: Admin: 07/09/23 21:18 Dose: 5 mg Documented By: Admin: 07/09/23 09:40 Dose: 5 mg Documented By: Admin: 07/08/23 23:21 Dose: 5 mg Documented By: CATHERINE Ascorbic Acid (Ascorbic Acid 500 Mg Tab) 500 mg PO QAM ROSALES Stop: 08/08/23 08:59 Last Admin: 07/10/23 09:36 Dose: 500 mg Documented By: Admin: 07/09/23 09:42 Dose: 500 mg Documented By: VALERIE Baclofen (Baclofen 20 Mg Tab) 20 mg PO 0800,1200 ROSALES Stop: 08/08/23 07:59 Last Admin: 07/10/23 12:45 Dose: 20 mg Documented By: Admin: 07/10/23 09:36 Dose: 20 mg Documented By: Admin: 07/09/23 13:55 Dose: 20 mg Documented By: Admin: 07/09/23 09:34 Dose: 20 mg Documented By: VALERIE Baclofen (Baclofen 10 Mg Tab) 30 mg PO HS ROSALES Stop: 08/08/23 20:59 Last Admin: 07/10/23 21:14 Dose: 30 mg Documented By: Admin: 07/09/23 21:20 Dose: 30 mg Documented By: BRITTNEY Bisacodyl (Bisacodyl 10 Mg Supp) 10 mg [place] BID ROSALES Stop: 08/07/23 22:12 Last Admin: 07/10/23 21:20 Dose: 10 mg Documented By: Admin: 07/10/23 07:41 Dose: Not Given Documented By: Admin: 07/09/23 21:16 Dose: Not Given Documented By: Admin: 07/09/23 14:05 Dose: Not Given Documented By: Admin: 07/08/23 23:18 Dose: Not Given Documented By: CATHERINE Celecoxib (Celebrex 200 Mg Cap) 200 mg PO BID ROSALES Stop: 08/07/23 22:12 Last Admin: 07/10/23 21:14 Dose: 200 mg Documented By: Admin: 07/10/23 09:36 Dose: 200 mg Documented By: Admin: 07/09/23 21:17 Dose: 200 mg Documented By: Admin: 07/09/23 09:41 Dose: 200 mg Documented By: Admin: 07/08/23 23:20 Dose: 200 mg Documented By: CATHERINE Diclofenac Sodium (Diclofenac Sod 1% Gel 100 Gm Tube) 2 gm EXT QID ROSALES; Protocol Stop: 08/07/23 22:12 Last Admin: 07/10/23 21:15 Dose: Not Given Documented By: Admin: 07/10/23 16:14 Dose: 2 gm Documented By: Admin: 07/10/23 12:46 Dose: Not Given Documented By: Admin: 07/10/23 07:42 Dose: Not Given Documented By: Admin: 07/09/23 21:21 Dose: Not Given Documented By: Admin: 07/09/23 18:17 Dose: Not Given Documented By: Admin: 07/09/23 14:05 Dose: Not Given Documented By: Admin: 07/09/23 09:43 Dose: 2 gm Documented By: Admin: 07/08/23 23:18 Dose: Not Given Documented By: CATHERINE Duloxetine HCl (Duloxetine Hcl 60 Mg Cap) 60 mg PO QAM [facility] Stop: 08/08/23 08:59 Last Admin: 07/10/23 09:36 Dose: 60 mg Documented By: Admin: 07/09/23 09:43 Dose: 60 mg Documented By: VALERIE Famotidine (Famotidine 20 Mg Tab) 20 mg PO BID ROSALES Stop: 08/07/23 22:12 Last Admin: 07/10/23 21:15 Dose: 20 mg Documented By: Admin: 07/10/23 09:36 Dose: 20 mg Documented By: Admin: 07/09/23 21:19 Dose: 20 mg Documented By: Admin: 07/09/23 09:43 Dose: 20 mg Documented By: Admin: 07/08/23 23:21 Dose: 20 mg Documented By: CATHERINE Ferrous Sulfate (Ferrous Sulfate 325 Mg Tab) 325 mg PO QDB [facility] Stop: 08/08/23 07:29 Last Admin: 07/10/23 07:45 Dose: 325 mg Documented By: Admin: 07/09/23 09:36 Dose: 325 mg Documented By: VALERIE Fluticasone Furoate (Fluticasone Furoate 100mcg 14 Puffs/Inhaler) 1 puffs INH QAM [facility] Stop: 08/08/23 08:59 Last Admin: 07/10/23 09:34 Dose: Not Given Documented By: Admin: 07/09/23 09:47 Dose: 1 puffs Documented By: VALERIE Gabapentin (Gabapentin 400 Mg Cap) 400 mg PO TID@0900,1200,2100 [facility] Stop: 08/07/23 22:12 Last Admin: 07/10/23 21:16 Dose: 400 mg Documented By: Admin: 07/10/23 12:45 Dose: 400 mg Documented By: Admin: 07/10/23 09:36 Dose: 400 mg Documented By: Admin: 07/09/23 21:20 Dose: 400 mg Documented By: Admin: 07/09/23 13:55 Dose: 400 mg Documented By: Admin: 07/09/23 09:40 Dose: 400 mg Documented By: Admin: 07/08/23 23:21 Dose: 400 mg Documented By: CATHERINE Guaifenesin (Guaifenesin 600 Mg Tabcr) 1,200 mg PO Q12 [facility]AL[facility] Stop: 08/07/23 22:12 Last Admin: 07/10/23 21:16 Dose: 1,200 mg Documented By: Admin: 07/10/23 09:36 Dose: 1,200 mg Documented By: Admin: 07/09/23 21:18 Dose: 1,200 mg Documented By: Admin: 07/09/23 09:38 Dose: 1,200 mg Documented By: Admin: 07/08/23 23:21 Dose: 1,200 mg Documented By: CATHERINE Hydromorphone HCl (Hydromorphone Inj 0.5 Mg/0.5 Ml Syr) 0.5 mg IV Q4H PRN PRN Reason: Severe Pain (Scale 7, 8, 9,10) Stop: 07/23/23 10:56 Last Admin: 07/10/23 22:39 Dose: 0.5 mg Documented By: Admin: 07/10/23 18:35 Dose: 0.5 mg Documented By: Admin: 07/10/23 14:32 Dose: 0.5 mg Documented By: Admin: 07/10/23 10:34 Dose: 0.5 mg Documented By: Admin: 07/10/23 06:11 Dose: 0.5 mg Documented By: Admin: 07/09/23 19:50 Dose: 0.5 mg Documented By: Admin: 07/09/23 15:25 Dose: 0.5 mg Documented By: Admin: 07/09/23 11:19 Dose: 0.5 mg Documented By: VALERIE Hydroxyzine HCl (Hydroxyzine Hcl 25 Mg Tab) 25 mg PO QAM [facility] Stop: 08/08/23 08:59 Last Admin: 07/10/23 09:35 Dose: 25 mg Documented By: Admin: 07/09/23 09:40 Dose: 25 mg Documented By: VALERIE Cefepime HCl 2,000 mg/ Syringe 20 mls @ 5 mls/min IV Q8H [facility]ALES Stop: 07/16/23 11:59 Last Admin: 07/10/23 21:12 Dose: 5 mls/min Documented By: Admin: 07/10/23 12:45 Dose: 5 mls/min Documented By: Admin: 07/10/23 04:50 Dose: 5 mls/min Documented By: Admin: 07/09/23 21:17 Dose: 5 mls/min Documented By: Admin: 07/09/23 13:54 Dose: 5 mls/min Documented By: VALERIE Vancomycin HCl 1,500 mg/ (Sodium Chloride) 530 mls @ 200 mls/hr IV Q12H [facility]AL[facility] Stop: 07/16/23 05:59 Last Admin: 07/10/23 21:12 Dose: 200 mls/hr Documented By: BRITTNEY Lactobacillus Acidophilus (Advanced Probiotic 1250 Mg Capsule) 2 cap PO DAILY [facility]ALES Stop: 08/09/23 14:59 Last Admin: 07/10/23 16:14 Dose: 2 cap Documented By: NILO Lactulose (Lactulose Syrup 20 Gm/30 Ml Udc) 20 gm PO 0800,1200,2000 [facility]AL[facility] Stop: 08/07/23 22:12 Last Admin: 07/10/23 21:12 Dose: 20 gm Documented By: Admin: 07/10/23 12:46 Dose: Not Given Documented By: Admin: 07/10/23 07:41 Dose: Not Given Documented By: Admin: 07/09/23 21:15 Dose: Not Given Documented By: Admin: 07/09/23 13:56 Dose: 20 gm Documented By: Admin: 07/09/23 09:37 Dose: 20 gm Documented By: Admin: 07/08/23 23:19 Dose: Not Given Documented By: CATHERINE Lidocaine (Lidocaine 5% 1 Patch) 1 patch TD QPM [facility]ALES Stop: 08/07/23 22:59 Last Admin: 07/10/23 21:17 Dose: Not Given Documented By: Admin: 07/09/23 21:22 Dose: Not Given Documented By: Admin: 07/08/23 23:20 Dose: Not Given Documented By: CATHERINE Melatonin (Melatonin 3 Mg Tab) 3 mg PO HS ROSALES Stop: 08/07/23 22:12 Last Admin: 07/10/23 21:17 Dose: 3 mg Documented By: Admin: 07/09/23 21:19 Dose: 3 mg Documented By: Admin: 07/08/23 23:21 Dose: 3 mg Documented By: CATHERINE Midodrine (Midodrine Hcl 2.5 Mg Tab) 5 mg PO TID@0800,1200,1700 [facility] Stop: 08/09/23 16:59 Last Admin: 07/10/23 17:16 Dose: 5 mg Documented By: HUBER Mischayitoaneous (Remove Nicoderm Patch) 1 each N/A DAILY@0859 [facility] Stop: 08/08/23 08:58 Last Admin: 07/10/23 09:34 Dose: 1 each Documented By: Admin: 07/09/23 09:37 Dose: 1 each Documented By: VALERIE Miscellaneous (Remove Lidoderm Patch) 1 each N/A [facility] Stop: 08/08/23 08:59 Last Admin: 07/10/23 09:37 Dose: Not Given Documented By: Admin: 07/09/23 09:46 Dose: 1 each Documented By: VALERIE Nicotine (Nicotine 21 Mg/24 Hr Tdsy) 21 mg TD [facility] Stop: 08/07/23 22:12 Last Admin: 07/10/23 09:34 Dose: 21 mg Documented By: Admin: 07/09/23 09:38 Dose: 21 mg Documented By: Admin: 07/08/23 23:21 Dose: 21 mg Documented By: CATHERINE Oxybutynin Chloride (Oxybutynin Chloride Xl 5 Mg Tabcr) 10 mg PO [facility] Stop: 08/08/23 08:59 Last Admin: 07/10/23 09:35 Dose: 10 mg Documented By: Admin: 07/09/23 09:38 Dose: 10 mg Documented By: VALERIE Oxycodone HCl (Oxycodone Hcl Ir 5 Mg Tab (Immediate Release)) 10 mg PO Q6H PRN PRN Reason: moderate to severe pain Stop: 07/22/23 22:12 Last Admin: 07/10/23 16:13 Dose: 10 mg Documented By: NILO Pantoprazole Sodium (Pantoprazole 40 Mg Tab) 40 mg PO [facility] Stop: 08/08/23 08:59 Last Admin: 07/10/23 09:36 Dose: 40 mg Documented By: Admin: 07/09/23 09:44 Dose: 40 mg Documented By: VALERIE Polyethylene Glycol (Polyethylene (Miralax) 17 Gm Pack) 17 gm PO BID [facility] Stop: 08/07/23 22:12 Last Admin: 07/10/23 21:19 Dose: Not Given Documented By: Admin: 07/10/23 07:42 Dose: Not Given Documented By: Admin: 07/09/23 21:16 Dose: Not Given Documented By: Admin: 07/09/23 09:44 Dose: 17 gm Documented By: Admin: 07/08/23 23:19 Dose: Not Given Documented By: CATHERINE Potassium Chloride (Potassium Chloride Crtab 20 Meq Tabcr) 20 meq PO BID [facility]AL[facility] Stop: 08/07/23 22:29 Last Admin: 07/10/23 21:18 Dose: 20 meq Documented By: Admin: 07/10/23 09:36 Dose: 20 meq Documented By: Admin: 07/09/23 21:17 Dose: 20 meq Documented By: Admin: 07/09/23 09:45 Dose: 20 meq Documented By: Admin: 07/08/23 23:21 Dose: 20 meq Documented By: CATHERINE Senna/Docusate Sodium (Docusate Sodium/Senna 50/8.6mg Tab) 2 tab PO HS [facility]ALES Stop: 08/07/23 22:12 Last Admin: 07/10/23 21:15 Dose: 2 tab Documented By: Admin: 07/09/23 21:20 Dose: Not Given Documented By: Admin: 07/08/23 23:20 Dose: 2 tab Documented By: ACTHERINE Sucralfate (Sucralfate 1 Gm/10 Ml Udc) 1 gm PO ACHS [facility]AL[facility] Stop: 08/07/23 22:12 Last Admin: 07/10/23 21:18 Dose: 1 gm Documented By: Admin: 07/10/23 16:14 Dose: 1 gm Documented By: Admin: 07/10/23 12:45 Dose: 1 gm Documented By: Admin: 07/10/23 07:44 Dose: 1 gm Documented By: Admin: 07/09/23 21:19 Dose: 1 gm Documented By: Admin: 07/09/23 18:17 Dose: 1 gm Documented By: Admin: 07/09/23 13:55 Dose: 1 gm Documented By: Admin: 07/09/23 09:37 Dose: 1 gm Documented By: Admin: 07/08/23 23:19 Dose: Not Given Documented By: CATHERINE Trazodone HCl (Trazodone Hcl 50 Mg Tab) 50 mg PO HS [facility] Stop: 08/07/23 22:12 Last Admin: 07/10/23 21:19 Dose: 50 mg Documented By: Admin: 07/09/23 21:17 Dose: 50 mg Documented By: Admin: 07/08/23 23:21 Dose: 50 mg Documented By: CATHERINE Umeclidinium/Vilanterol (Umeclidinium/Vilanterol 62.5/25mcg 7 Puffs/Inhaler) [facility] [place]: 08/08/23 08:59 Last Admin: 07/10/23 09:34 Dose: Not Given Documented By: Admin: 07/09/23 09:46 Dose: 1 puffs Documented By: VALERIE Vibegron (Vibegron 75 Mg Tab) 75 [facility] [place] [facility] [place]: 08/08/23 08:59 Last Admin: 07/10/23 09:36 Dose: 75 mg Documented By: Admin: 07/09/23 09:45 Dose: 75 mg Documented By: VALERIE Discontinued Medications Sodium Chloride (Nss) 1,000 mls @ 999 mls/hr IV .Q1H1M ONE Stop: 07/08/23 19:16 Last Infusion: 07/08/23 19:38 Dose: Infused Documented By: Admin: 07/08/23 18:35 Dose: 999 mls/hr Documented By: GENESIS Ceftriaxone Sodium 2,000 mg/ (Dextrose) 50 mls @ 100 mls/hr IV NOW STA; Protocol Stop: 07/08/23 18:45 Last Infusion: 07/08/23 19:38 Dose: Infused Documented By: Admin: 07/08/23 19:08 Dose: 100 mls/hr Documented By: GENESIS Azithromycin 500 mg/ Dextrose 255 mls @ 127.5 mls/hr IV NOW STA Stop: 07/08/23 20:15 Last Infusion: 07/08/23 21:32 Dose: Infused Documented By: Admin: 07/08/23 19:08 Dose: 127.5 mls/hr Documented By: GENESIS Meropenem 500 mg/ Syringe 10 mls @ 2 mls/min IV Q8H ROSALES; Protocol Stop: 07/18/23 19:59 Last Admin: 07/09/23 04:08 Dose: 2 mls/min Documented By: Admin: 07/08/23 20:30 Dose: 2 mls/min Documented By: GENESIS Vancomycin HCl 2,000 mg/ (Sodium Chloride) 540 mls @ 200 mls/hr IV 2000 ONE Stop: 07/08/23 22:41 Last Infusion: 07/08/23 23:30 Dose: Infused Documented By: Admin: 07/08/23 20:30 Dose: 200 mls/hr Documented By: GENESIS Vancomycin HCl 1,750 mg/ (Sodium Chloride) 535 mls @ 200 mls/hr IV Q12H [facility] Stop: 07/16/23 05:59 Last Infusion: 07/10/23 08:55 Dose: Infused Documented By: Admin: 07/10/23 06:10 Dose: 200 mls/hr Documented By: Infusion: 07/09/23 20:57 Dose: Infused Documented By: Admin: 07/09/23 18:16 Dose: 200 mls/hr Documented By: Infusion: 07/09/23 08:30 Dose: Infused Documented By: Admin: 07/09/23 05:47 Dose: 200 mls/hr Documented By: CATHERINE Ketorolac Tromethamine (Ketorolac Tromethamine 15 Mg/Ml Vial) 15 mg IV NOW ONE Stop: 07/08/23 18:38 Last Admin: 07/08/23 18:45 Dose: 15 mg Documented By: GENESIS Miscellaneous (Patient's Weight Needed) 1 each N/A Q2H [facility] Stop: 08/07/23 19:44 Last Admin: 07/08/23 20:01 Dose: 1 each Documented By: GENESIS Oxycodone HCl (Oxycodone Hcl Ir 5 Mg Tab (Immediate Release)) 5 mg PO Q6H PRN PRN Reason: moderate to severe pain Stop: 07/22/23 22:12 Last Admin: 07/10/23 07:40 Dose: 5 mg Documented By: Admin: 07/09/23 18:23 Dose: 5 mg Documented By: Admin: 07/09/23 09:51 Dose: 5 mg Documented By: VALERIE Discharge Plan Visit Data Chief Complaint: Urinary Symptoms Stated Complaint: URINARY SX ED Provider: Rhett Frederick Discharge Problem: Complicated UTI (urinary tract infection) Patient Disposition: Admitted As Inpatient Discharge Instructions Interventions: ED Discharge Assessment Last Done: 07/08/23 21:38
--- NOTE | 2023-07-08 17:14 | XRay Report ---
XR chest 1V portable HISTORY: 47 years-old Male SOB, aspiration/PNA acute shortness of breath COMPARISON: 06/23/2023 TECHNIQUE: AP view of the chest FINDINGS: Cardiomediastinal and hilar silhouettes are within normal limits. No pneumothorax, pleural effusion o r airspace consolidation. Bones appear grossly intact. Cholecystectomy. Cervical spinal fusion hardwa re. IMPRESSION: Cardiomegaly without acute process. ACT 112: Negative or not required by law. The above report was generated using voice recognition software. It may contain grammatical, syntax o r spelling errors. Electronically signed by: Anil Friedman M.D. 07/08/2023 5:13 PM
[2023-07-08 17:20] LABS: Basophils # (auto) 0.06 K/uL (0.00-0.20); Basophils % (auto) 0.6 %; Eosinophils % (auto) 5.8 %; Hematocrit (blood only) 37.2 % (42.0-52.0); Immature Granulocytes # (auto) 0.02 K/uL (0.01-0.20); Immature Granulocytes % (auto) 0.2 %; Lymphocytes # (auto) 1.55 K/uL (1.20-3.40); Mean Corpuscular Hgb Conc 32.3 g/dL (32.0-36.0); Mean Corpuscular Volume 83.8 fL (80.0-100.0); Mean Platelet Volume 9.9 fL (9.4-12.4); Monocytes # (auto) 0.92 K/uL (0.11-0.59); Monocytes % (auto) 8.9 %; Neutrophils # (auto) 7.18 K/uL (1.40-6.50); Neutrophils % (auto) 69.5 %; Platelet Count 277 K/uL (130-400); RDW Coefficient of Variation 18.1 % (11.5-14.5); RDW Standard Deviation 55.8 fL (36.4-46.3); Red Blood Count 4.44 M/uL (4.70-6.10); White Blood Count 10.33 K/ul (4.8-10.8)
[2023-07-08 17:25] LABS: Appearance Urine Turbid (Clear); Bacteria Urine Automated 4+ (Negative); Bilirubin Urine Negative (Negative); Blood Urine 3+ (Negative); Color Urine Dark Yellow; Epithelial Cell Urine Auto >30 /lpf (0-5); Glucose Urine UA Negative (Negative); Ketones Urine Negative (Negative); Leukocyte Esterase Urine 3+ (Negative); Nitrite Urine Positive (Negative); Protein Urine 2+ (Negative); RBC Urine Automated >30 /hpf (0-4); Urobilinogen Urine Negative (Negative); WBC Urine Automated >30 /hpf (0-5); pH Urine 6.5 (4.5-7.5)
[2023-07-08 17:50] LABS: Calcium Oxalate Crystals Urine Present (None Prsent)
[2023-07-08 18:03] LABS: Albumin Level 3.6 gm/dl (3.4-5.0); Anion Gap 8 (3-11); Bilirubin,Total 0.5 mg/dl (0.2-1.0); Carbon Dioxide 25 mmol/L (21-32); Chloride 105 mmol/L (98-107); Potassium 3.9 mmol/L (3.5-5.1); Sodium 138 mmol/L (136-145)
[2023-07-08 18:09] LABS: Alanine Aminotransferase 9 U/L (7-52); Albumin Globulin Ratio 1.3 (0.9-2); Alkaline Phosphatase 148 U/L (34-104); Aspartate Aminotransferase 22 U/L (13-39); BUN Creatinine Ratio 30.6 (10-20); Blood Urea Nitrogen 15 mg/dl (6-23); Est GFR (African American) > 150.0 ml/min; Globulin 2.8 gm/dl (2.5-4.0); Glucose 88 mg/dl (70-99(Fasting)); Lipase 18 U/L (11-82); Total Protein 6.4 gm/dl (6.0-8.3)
[2023-07-08] MEDS ORDERED: AZITHROMYCIN 500 MG in DEXTROSE 5% 250 ML IV STA (18:16)
[2023-07-08] MEDS ORDERED: cefTRIAXone SODIUM 2,000 MG in DEXTROSE 5 % MINI-B 50 ML IV STA (18:16)
[2023-07-08] MEDS ORDERED: SODIUM CHLORIDE 0.9% 1,000 ML IV ONE (18:16)
[2023-07-08] MEDS ORDERED: KETOROLAC TROMETHAMINE 15 MG/ML VIAL IV ONE (18:37)
[2023-07-08] MEDS ORDERED: VANCOMYCIN CONSULT ACTIVE PRN (19:21)
[2023-07-08] MEDS ORDERED: Patient's WEIGHT Needed SCH (19:45)
[2023-07-08 19:58] LABS: Adenovirus PCR Not Detected (NotDetected); Bordetella parapertussis PCR Not Detected (NotDetected); Bordetella pertussis PCR Not Detected (NotDetected); Chlamydia pneumoniae PCR Not Detected (NotDetected); Coronavirus 229E PCR Not Detected (NotDetected); Coronavirus CoV-2 (COVID19)PCR Not Detected (NotDetected); Coronavirus HKU1 PCR Not Detected (NotDetected); Coronavirus NL63 PCR Not Detected (NotDetected); Coronavirus OC43PCR Not Detected (NotDetected); Human Metapneumovirus PCR Not Detected (NotDetected); Influenza A PCR Not Detected (NotDetected); Influenza B PCR Not Detected (NotDetected); Mycoplasma pneumoniae PCR Not Detected (NotDetected); Parainfluenza Virus 1 PCR Not Detected (NotDetected); Parainfluenza Virus 2 PCR Not Detected (NotDetected); Parainfluenza Virus 3 PCR Not Detected (NotDetected); Parainfluenza Virus 4 PCR Not Detected (NotDetected); Rhinovirus/Enterovirus PCR Not Detected (NotDetected)
[2023-07-08] MEDS ORDERED: VANCOMYCIN HCL 2,000 MG in SODIUM CHLORIDE 0.9% 500 ML IV ONE (20:00)
[2023-07-08 20:27] LABS: Respiratory Syncytial VirusPCR DETECTED (NotDetected)
[2023-07-08] MEDS: MEROPENEM 500 MG in SYRINGE 0 ML IV SCH (20:30)
--- NOTE | 2023-07-08 20:45 | History & Physical Report ---
Date of Service July 08, 2023 Assessment & Plan (1) Hypoxia: (2) RSV (respiratory syncytial virus infection): Plan: Admit to [facility] Patient presenting from home with reports of burning around suprapubic catheter and chest congestion. In the ED hypoxic on room air at 89%, currently requiring 3 L of oxygen via nasal cannula Bio fire + RSV No infiltrate noted on CXR Continue supportive care with DuoNebs, Mucinex, flutter valve, incentive spirometer If not improving by tomorrow, considering adding low-dose prednisone (3) Complicated UTI (urinary tract infection): (4) Suprapubic catheter: Plan: History of neurogenic bladder with suprapubic catheter and recurrent UTIs Previous cultures reviewed, history of various resistant organisms Will empirically start meropenem and vancomycin Follow urine culture Urology consult for suprapubic catheter exchange (5) History of pulmonary embolism: Plan: On Eliquis (6) Sacral decubitus ulcer, stage IV: (7) Chronic osteomyelitis of sacrum: Plan: Present on admission Wound care nurse consult (8) Paraplegia: (9) Chronic pain: Plan: Continue home dose oxycodone and other chronic medications DVT PROPHYLAXIS On Eliquis Patient seen in collaboration with Dr. Vela. I spent a total of 75 minutes coordinating, documenting, and providing care for this patient excluding time spent in the performance of separately billed services. This included personally reviewing all current laboratories and imaging studies, medication reconciliation, outpatient chart review, and discussion with specialists. History of Present Illness Chief Complaint: Pain around suprapubic catheter, chest congestion Primary Care Provider: Dr. 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 Reports a burning around his suprapubic catheter and cloudy appearing urine. Patient reports he also developed chest congestion and wheezing a couple days ago. Reports associated shortness of breath. Has difficulty producing a cough due to quadriplegia. No chest pain. Denies lightheadedness and dizziness. No abdominal pain, nausea, v omiting, diarrhea. In the ED, patient was mildly hypoxic on room air at 89%, currently requiring 3 L of oxygen via nasal cannula. He is afebrile and hemodynamically stable. UA suggest UTI. Patient tested positive for RSV. He was given IV azithromycin, IV ceftriaxone, IV ketorolac, IVF. Allergies Allergy/AdvReac Type Severity Reaction Status Date / Time No Known Allergies Allergy Verified 06/24/23 00:19 Home Medications Medication Instructions Recorded Confirmed Type Naloxone Hcl 4 Mg/0.1ml Liquid See Rx Instructions .Route 05/15/23 07/08/23 History .COMPLEX PRN Opioid Overdose acetaminophen 500 mg tablet 500 mg PO .Q 4 HRS WHILE AWAKE 05/15/23 07/08/23 History apixaban 5 mg tablet 5 mg PO AMHS 05/15/23 07/08/23 History ascorbic acid (vitamin C) 500 mg 500 mg PO QAM 05/15/23 07/08/23 History tablet (Vitamin C) bisacodyl 10 mg rectal suppository 10 mg OK AMPM 05/15/23 07/08/23 History celecoxib 200 mg capsule 200 mg PO AMHS 05/15/23 07/08/23 History collagenase clostridium histo. 250 1 applic topical DAILY 05/15/23 07/08/23 History unit/gram topical ointment (Santyl) diclofenac sodium 1 % topical gel 2 g topical QID 05/15/23 07/08/23 History duloxetine 60 mg capsule,delayed 60 mg PO QAM 05/15/23 07/08/23 History release famotidine 20 mg tablet 20 mg PO AMHS 05/15/23 07/08/23 History ferrous sulfate 325 mg (65 mg 325 mg PO QDB 05/15/23 07/08/23 History iron) tablet fluticasone propionate 100 1 inh inhalation AMHS 05/15/23 07/08/23 History mcg/actuation blister powder for inhalation hydroxyzine HCl 25 mg tablet 25 mg PO QAM 05/15/23 07/08/23 History lactulose 20 gram/30 mL oral 20 g PO TID 05/15/23 07/08/23 History solution lidocaine 5 % topical patch 1 patch topical DAILY 05/15/23 07/08/23 History lidocaine HCl 2 % mucosal solution 5 ml PO ACHS PRN as directed 05/15/23 07/08/23 History (Lidocaine Viscous) melatonin 3 mg tablet 3 mg PO HS 10/08/23 12/01/23 History mirabegron 50 mg tablet,extended 50 mg PO QAM 05/15/23 07/08/23 History release 24 hr (Myrbetriq) oxybutynin chloride 10 mg 10 mg PO QAM 05/15/23 07/08/23 History tablet,extended release 24 hr pantoprazole 40 mg tablet,delayed 40 mg PO QAM 05/15/23 07/08/23 History release polyethylene glycol 3350 17 gram 17 g PO AMHS 05/15/23 07/08/23 History oral powder packet (Miralax) potassium chloride 20 mEq 20 meq PO AMHS 05/15/23 07/08/23 History tablet,extended release(part/cryst) sennosides 8.6 mg-docusate sodium 2 tab-cap PO HS 05/15/23 07/08/23 History 50 mg tablet solifenacin 10 mg tablet 10 mg PO QAM 05/15/23 07/08/23 History trazodone 50 mg tablet 50 mg PO HS 05/15/23 07/08/23 History umeclidinium 62.5 mcg-vilanterol 1 inh inhalation QA 05/15/23 07/08/23 History 25 mcg/actuation powdr for inhalation (Anoro Ellipta) albuterol sulfate 2.5 mg/3 mL 1.25 mg (1.5 mL) inhalation Q8H 05/19/23 07/08/23 Rx (0.083 %) solution for nebulization PRN bronchospasm #90 mL Unknown "Water" Pill 1 dose PO QAM 06/19/23 07/08/23 History gabapentin 400 mg capsule 400 mg PO TID@0900,1200,2100 #90 06/21/23 07/08/23 Rx caps sucralfate 100 mg/mL oral 1 g (10 mL) PO ACHS #400 mL 06/21/23 07/08/23 Rx suspension multivitamin with minerals-folic 1 tab PO DAILY 06/24/23 07/08/23 History acid 200 mcg chewable tablet (Adult Multivitamin Gummies) baclofen 10 mg tablet 10 mg PO UD #20 tabs 06/25/23 07/08/23 Rx oxycodone 5 mg tablet 5 mg PO Q6H PRN moderate to severe 06/25/23 07/08/23 Rx pain #12 tabs Past Med/Surg History Medical History History of pulmonary embolism Chronic pain Suprapubic catheter Paraplegia Chronic osteomyelitis of sacrum Sacral decubitus ulcer, stage IV Surgical History No pertinent past surgical history Social History Smoking Status: Current every day smoker Tobacco Type: Cigarettes Cigarettes Per Day: 40; Second Hand Exposure: Yes; Do You Dip or Chew Tobacco: No; Hx Alcohol Use: Yes Alcohol type: beer Hx Substance Use: Yes Last Used Substance: Unknown Preferred Language: Welsh Communication Ability: Effective Power Barker Operator Required: No Beliefs That Will Affect Care: None Current Living Situation: Alone and Family Feels Safe at Home: Yes Assistive Devices: Hospital Bed, Mechanical Lift, Nebulizer and Scooter/Electric Scooter Review of Systems Review of Systems: All systems reviewed & are unremarkable except as noted in Subjective Physical Exam Physical Exam: Please refer to Dr. Vela's addendum for physical exam Results & Data Results & Data Vital Signs (Past 12 Hours) Vital Signs Temp Pulse Resp BP Pulse Ox O2 Del Method O2 Flow Rate 07/08/23 19:30 62 15 93 07/08/23 19:20 69 17 93 07/08/23 19:10 58 L 15 94 07/08/23 19:00 60 20 94 07/08/23 18:50 52 L 16 94 07/08/23 18:40 61 17 94 07/08/23 18:30 65 16 94 07/08/23 18:20 68 16 94 07/08/23 18:10 61 13 94 07/08/23 18:00 59 L 14 94 07/08/23 17:50 69 15 92 07/08/23 17:40 61 14 94 07/08/23 17:30 58 L 16 92 07/08/23 17:20 61 14 92 07/08/23 17:10 61 14 92 07/08/23 17:07 65 07/08/23 17:04 67 18 92 Nasal Cannula 3 07/08/23 16:59 92 Nasal Cannula 3 07/08/23 16:20 36.3 C L 38 L 24 117/80 89 L Room Air Laboratory Results Short CBC 07/08/23 Range/Units 16:55 WBC 10.33 (4.8-10.8) K/ul Hgb 12.0 L (14.0-18.0) g/dl Hct 37.2 L (42.0-52.0) % Plt Count 277 (130-400) K/uL BMP 07/08/23 16:55 Sodium 138 Potassium 3.9 Chloride 105 Carbon Dioxide 25 BUN 15 Creatinine 0.49 L Glucose 88 Calcium 9.0 Liver Function 07/08/23 Range/Units 16:55 Total Bilirubin 0.5 (0.2-1.0) mg/dl AST 22 (13-39) U/L ALT 9 (7-52) U/L Alkaline Phosphatase 148 H (34-104) U/L Albumin 3.6 (3.4-5.0) gm/dl Urine 07/08/23 Range/Units Unknown Urine Color Dark Yellow Urine Appearance Turbid A (Clear) Urine pH 6.5 (4.5-7.5) Ur Specific Gardner 1.020 (1.000-1.030) Urine Protein 2+ H (Negative) Urine Glucose (UA) Negative (Negative) Diagnostic Findings Chest X-Ray 07/08/23 16:29 XR chest 1V portable HISTORY: 47 years-old Male SOB, aspiration/PNA acute shortness of breath COMPARISON: 06/23/2023 TECHNIQUE: AP view of the chest FINDINGS: Cardiomediastinal and hilar silhouettes are within normal limits. No pneumothorax, pleural effusion or airspace consolidation. Bones appear grossly intact. Cholecystectomy. Cervical spinal fusion hardware. IMPRESSION: Cardiomegaly without acute process. ACT 112: Negative or not required by law. The above report was generated using voice recognition software. It may contain grammatical, syntax or spelling errors. Electronically signed by: Anil Friedman M.D. 07/08/2023 5:13 PM Code Status & VTE Plan VTE Prophylaxis Plan VTE Prophylaxis will be ordered: No Supervising Physician Co-Signing Physician Notes Patient is a 47-year-old male with history of paraplegia due to cervical spinal cord injury, history of PE and chronic anticoagulation with Eliquis, bedbound, neurogenic bladder with suprapubic catheter, chronic sacral wound and other medical problems presents with history of pain around suprapubic catheter which she describes as burning sensation, associated with some whitish discharge noted in Sanchez catheter. He also states having chest congestion associated with known expectorant cough and some shortness of breath. He admits to have chills but no fever. Denies any chest pain, nausea, vomiting, diarrhea, dizziness. He was hypoxic in ED requiring minimal supplemental oxygen. Respiratory panel showed RSV. Normal chest x-ray. Normal lactate levels. I personally reviewed blood work, imaging studies. Physical Exam: Vitals signs as noted above General Appearance:Moderately built and nourished, no apparent distress Head: normocephalic, Atraumatic Eyes: normal inspection, EOMI Neck: supple, Trachea midline Respiratory/Chest: Decreased coarse breath sounds, scattered rhonchi, No accessory muscle use Cardiovascular: S1, S2, No murmur Abdomen/GI:Soft, Non tender, Bowel sounds present,+ suprapubic catheter Back/Sacral region: Unable to examine given paraplegia Extremities/Musculoskeletal:normal inspection, Trace pedal edema Neurologic/Psych:AAOX3, + paraplegia, minimally able to move bilateral upper extremities Skin: normal color, warm,+ multiple tattoos Acute bronchitis secondary to RSV Hypoxia Suspected recurrent UTI H/O multidrug-resistant organisms on prior cultures H/O sacral osteomyelitis, MRSA, Pseudomonas Given multiple comorbidities, started on broad-spectrum antibiotics Needs catheter change with help of urology Pulmonary hygiene Supplemental oxygen as needed Consider adding steroids if no improvement in respiratory status I personally reviewed the record. Patient is interviewed and examined at bedside. Patient's care is coordinated with Luz Rollins RESOURCE DEVELOPMENT MANAGER. Please refer to the documentation above for details of patient's presentation and for discussion of other issues.
[2023-07-08] MEDS ORDERED: ACETAMINOPHEN 500 MG TAB PO SCH (22:13)
[2023-07-08] MEDS: DICLOFENAC SOD 1% GEL 100 GM TUBE EXT SCH (23:18)
[2023-07-08] MEDS: bisacodyL 10 MG SUPP PR SCH (23:18)
[2023-07-08] MEDS: POLYETHYLENE (MIRALAX) 17 GM PACK PO SCH (23:19)
[2023-07-08] MEDS: SUCRALFATE 1 GM/10 ML UDC PO SCH (23:19)
[2023-07-08] MEDS: LACTULOSE SYRUP 20 GM/30 ML UDC PO SCH (23:19)
[2023-07-08] MEDS: LIDOCAINE 5% 1 PATCH TD SCH (23:20)
[2023-07-08] MEDS: DOCUSATE SODIUM/SENNA 50/8.6MG TAB PO SCH (23:20)
[2023-07-08] MEDS: CeleBREX 200 MG CAP PO SCH (23:20)
[2023-07-08] MEDS: traZODone HCL 50 MG TAB PO SCH (23:21)
[2023-07-08] MEDS: NICOTINE 21 MG/24 HR TDSY TD SCH (23:21)
[2023-07-08] MEDS: POTASSIUM CHLORIDE CRTAB 20 MEQ TABCR PO SCH (23:21)
[2023-07-08] MEDS: FAMOTIDINE 20 MG TAB PO SCH (23:21)
[2023-07-08] MEDS: APIXABAN 5 MG TABLET PO SCH (23:21)
[2023-07-08] MEDS: GABAPENTIN 400 MG CAP PO SCH (23:21)
[2023-07-08] MEDS: guaiFENesin 600 MG TABCR PO SCH (23:21)
[2023-07-08] MEDS: MELATONIN 3 MG TAB PO SCH (23:21)
[2023-07-09] MEDS: ALBUT/IPRATROP 3MG/0.5MG NEB 3 ML VIAL NEB SCH ×7 (00:40→22:48)
[2023-07-09] MEDS: MEROPENEM 500 MG in SYRINGE 0 ML IV SCH (04:08)
[2023-07-09] MEDS: VANCOMYCIN HCL 1,750 MG in SODIUM CHLORIDE 0.9% 500 ML IV SCH ×2 (05:47→18:16)
[2023-07-09] MEDS ORDERED: SOLIFENACIN 10 MG PO SCH (09:00)
--- NOTE | 2023-07-09 09:23 | Urology Consultation ---
Date of Consultation July 09, 2023 Assessment & Plan (1) Suprapubic catheter: (2) Complicated UTI (urinary tract infection): Plan 47-year-old male admitted for hypoxia. History of paraplegia with neurogenic bladder managed with a suprapubic tube. Urology was consulted for SP tube exchange. No acute intervention necessary No indication to exchange SP tube as it has been exchanged in the past month. Urine culture is almost always going to be positive as he is colonized. Given that he came in with respiratory issues and has not had really any issues with the SP tube I would not recommend treating any positive culture as this will likely just further antibiotic resistance Patient needs to reestablish follow-up with outside urologist, Dr. [facility] to sign off History of Present Illness Attending Physician: Mike Chaidez MD History of Present Illness 47-year-old male with a history of paraplegia who was admitted to the hospital on 07/08/2023 due to hypoxia and RSV. He has a history of neurogenic bladder with a suprapubic tube. Based on previous drug-resistant UTIs, he was started on broad-spectrum antibiotics. Urology was consulted for suprapubic tube exchange. Patient reports he was placed by Dr. Troy Howard in [place] but he has not seen him recently. Patient reports that SP tube has been exchanged in the past month. Allergies Allergy/AdvReac Type Severity Reaction Status Date / Time No Known Allergies Allergy Verified 06/24/23 00:19 Home Medications Medication Instructions Recorded Confirmed Type Naloxone Hcl 4 Mg/0.1ml Liquid See Rx Instructions .Route 05/15/23 07/08/23 History .COMPLEX PRN Opioid Overdose acetaminophen 500 mg tablet 500 mg PO .Q 4 HRS WHILE AWAKE 05/15/23 07/08/23 History apixaban 5 mg tablet 5 mg PO AMHS 05/15/23 07/08/23 History ascorbic acid (vitamin C) 500 mg 500 mg PO QAM 05/15/23 07/08/23 History tablet (Vitamin C) bisacodyl 10 mg rectal suppository 10 mg CA AMPM 05/15/23 07/08/23 History celecoxib 200 mg capsule 200 mg PO AMHS 05/15/23 07/08/23 History collagenase clostridium histo. 250 1 applic topical DAILY 05/15/23 07/08/23 History unit/gram topical ointment (Santyl) diclofenac sodium 1 % topical gel 2 g topical QID 05/15/23 07/08/23 History duloxetine 60 mg capsule,delayed 60 mg PO QAM 05/15/23 07/08/23 History release famotidine 20 mg tablet 20 mg PO AMHS 05/15/23 07/08/23 History ferrous sulfate 325 mg (65 mg 325 mg PO QDB 05/15/23 07/08/23 History iron) tablet fluticasone propionate 100 1 inh inhalation AMHS 05/15/23 07/08/23 History mcg/actuation blister powder for inhalation hydroxyzine HCl 25 mg tablet 25 mg PO QAM 05/15/23 07/08/23 History lactulose 20 gram/30 mL oral 20 g PO TID 05/15/23 07/08/23 History solution lidocaine 5 % topical patch 1 patch topical DAILY 05/15/23 07/08/23 History lidocaine HCl 2 % mucosal solution 5 ml PO ACHS PRN as directed 05/15/23 07/08/23 History (Lidocaine Viscous) melatonin 3 mg tablet 3 mg PO HS 05/15/23 07/08/23 History mirabegron 50 mg tablet,extended 50 mg PO QAM 05/15/23 07/08/23 History release 24 hr (Myrbetriq) oxybutynin chloride 10 mg 10 mg PO QAM 05/15/23 07/08/23 History tablet,extended release 24 hr pantoprazole 40 mg tablet,delayed 40 mg PO QAM 05/15/23 07/08/23 History release polyethylene glycol 3350 17 gram 17 g PO AMHS 05/15/23 07/08/23 History oral powder packet (Miralax) potassium chloride 20 mEq 20 meq PO AMHS 05/15/23 07/08/23 History tablet,extended release(part/cryst) sennosides 8.6 mg-docusate sodium 2 tab-cap PO HS 05/15/23 07/08/23 History 50 mg tablet solifenacin 10 mg tablet 10 mg PO QAM 05/15/23 07/08/23 History trazodone 50 mg tablet 50 mg PO HS 05/15/23 07/08/23 History umeclidinium 62.5 mcg-vilanterol 1 inh inhalation QAM 05/15/23 07/08/23 History 25 mcg/actuation powdr for inhalation (Anoro Ellipta) albuterol sulfate 2.5 mg/3 mL 1.25 mg (1.5 mL) inhalation Q8H 05/19/23 07/08/23 Rx (0.083 %) solution for nebulization PRN bronchospasm #90 mL Unknown "Water" Pill 1 dose PO QAM 06/19/23 07/08/23 History gabapentin 400 mg capsule 400 mg PO TID@0900,1200,2100 #90 06/21/23 07/08/23 Rx caps sucralfate 100 mg/mL oral 1 g (10 mL) PO ACHS #400 mL 06/21/23 07/08/23 Rx suspension multivitamin with minerals-folic 1 tab PO DAILY 06/24/23 07/08/23 History acid 200 mcg chewable tablet (Adult Multivitamin Gummies) baclofen 10 mg tablet 10 mg PO UD #20 tabs 06/25/23 07/08/23 Rx oxycodone 5 mg tablet 5 mg PO Q6H PRN moderate to severe 06/25/23 07/08/23 Rx pain #12 tabs Patient History Medical History History of pulmonary embolism Chronic pain Suprapubic catheter Paraplegia Chronic osteomyelitis of sacrum Sacral decubitus ulcer, stage IV Surgical History No pertinent past surgical history Social History Smoking Status: Current every day smoker Tobacco Type: Cigarettes Cigarettes Per Day: 1 pack; Second Hand Exposure: Yes; Do You Dip or Chew Tobacco: Yes; Hx Alcohol Use: No Hx Substance Use: Yes Last Used Substance: Days (ago) Last Used Substance Other:: 07/07/23 last used Preferred Language: Czech Communication Ability: Effective Retail Support Specialist Required: No Beliefs That Will Affect Care: None Current Living Situation: Alone Current Living Situation Comment: alone with 28/02 home care Feels Safe at Home: Yes Safety Concerns: Feels Safe At This Time Assistive Devices: Hospital Bed, Mechanical Lift, Nebulizer and Scooter/Electric Scooter Review of Systems Review of Systems: 14 point review of systems negative outs cade of what is listed above in HPI Physical Exam Physical Exam: General: Alert and oriented, no acute distress HEENT: Normocephalic, mucous membranes moist Pulmonary: Nonlabored respirations Abdomen: Nondistended : SP tube site clean dry and intact draining griffin urine. Extremities: Moves all 4 spontaneously Neuro: No gross deficits Skin: Warm, dry, no rashes noted Results & Data Vital Signs (Past 12 Hours) Vital Signs Temp Pulse Resp BP Pulse Ox O2 Del Method O2 Flow Rate 07/09/23 07:26 36.6 C 68 18 143/92 H 93 Room Air 07/09/23 00:00 94 Room Air 07/08/23 22:00 36.6 C 71 16 132/83 95 Nasal Cannula 2 PG Care Time/CCT Total # of Minutes Spent Total Time Spent with Patient: Total time spent is greater than 50% in coordination of care (as documented) at patient's floor/unit and/or counseling patient: Coding Level of Care Code 94918 IN/OBS CONSULT LVL 3,45M Diagnoses Suprapubic catheter Z93.59 Complicated UTI (urinary tract infection) N39.0
[2023-07-09] MEDS: BACLOFEN 20 MG TAB PO SCH ×2 (09:34→13:55)
[2023-07-09] MEDS: FERROUS SULFATE 325 MG TAB PO SCH (09:36)
[2023-07-09] MEDS: LACTULOSE SYRUP 20 GM/30 ML UDC PO SCH ×3 (09:37→21:15)
[2023-07-09] MEDS: SUCRALFATE 1 GM/10 ML UDC PO SCH ×4 (09:37→21:19)
[2023-07-09] MEDS: OXYBUTYNIN CHLORIDE XL 5 MG TABCR PO SCH (09:38)
[2023-07-09] MEDS: guaiFENesin 600 MG TABCR PO SCH ×2 (09:38→21:18)
[2023-07-09] MEDS: NICOTINE 21 MG/24 HR TDSY TD SCH (09:38)
[2023-07-09] MEDS: hydrOXYzine HCl 25 MG TAB PO SCH (09:40)
[2023-07-09] MEDS: APIXABAN 5 MG TABLET PO SCH ×2 (09:40→21:18)
[2023-07-09] MEDS: GABAPENTIN 400 MG CAP PO SCH ×3 (09:40→21:20)
[2023-07-09] MEDS: CeleBREX 200 MG CAP PO SCH ×2 (09:41→21:17)
[2023-07-09] MEDS: ASCORBIC ACID 500 MG TAB PO SCH (09:42)
[2023-07-09] MEDS: DULoxetine HCL 60 MG CAP PO SCH (09:43)
[2023-07-09] MEDS: FAMOTIDINE 20 MG TAB PO SCH ×2 (09:43→21:19)
[2023-07-09] MEDS: DICLOFENAC SOD 1% GEL 100 GM TUBE EXT SCH ×4 (09:43→21:21)
[2023-07-09] MEDS: PANTOprazole 40 MG TAB PO SCH (09:44)
[2023-07-09] MEDS: POLYETHYLENE (MIRALAX) 17 GM PACK PO SCH ×2 (09:44→21:16)
[2023-07-09] MEDS: POTASSIUM CHLORIDE CRTAB 20 MEQ TABCR PO SCH ×2 (09:45→21:17)
[2023-07-09] MEDS: VIBEGRON 75 MG TAB PO SCH (09:45)
[2023-07-09] MEDS: UMECLIDINIUM/VILANTEROL 62.5/25MCG 7 PUFFS/INHALER INH SCH (09:46)
[2023-07-09] MEDS: FLUTICASONE FUROATE 100MCG 14 PUFFS/INHALER INH SCH (09:47)
[2023-07-09] MEDS: ACETAMINOPHEN 325 MG TAB PO PRN (09:51)
[2023-07-09] MEDS: oxyCODONE HCL IR 5 MG TAB (IMMEDIATE RELEASE) PO PRN ×2 (09:51→18:23)
[2023-07-09 10:19] LABS: Hematocrit (blood only) 39.3 % (42.0-52.0); Hemoglobin 12.5 g/dl (14.0-18.0); Mean Corpuscular Hemoglobin 26.9 pg (25.0-34.0); Mean Corpuscular Hgb Conc 31.8 g/dL (32.0-36.0); Mean Corpuscular Volume 84.5 fL (80.0-100.0); Mean Platelet Volume 9.6 fL (9.4-12.4); Platelet Count 244 K/uL (130-400); RDW Coefficient of Variation 17.8 % (11.5-14.5); RDW Standard Deviation 55.1 fL (36.4-46.3); Red Blood Count 4.65 M/uL (4.70-6.10); White Blood Count 6.39 K/ul (4.8-10.8)
[2023-07-09 10:24] LABS: A calco-baum cmplx NotReported Not Detected (NotDetected); Bact fragilis Not Reported Not Detected (NotDetected); Blood Culture Id Panel See PCR Comment (NotDetected); C auris Not Reported Not Detected (NotDetected); Calbicans Not Reported Not Detected (NotDetected); Candida glabrata Not Reported Not Detected (NotDetected); Candida krusei Not Reported Not Detected (NotDetected); Cneoformans/gatti Not Reported Not Detected (NotDetected); Cparapsilosis Not Reported Not Detected (NotDetected); E cloacae compx Not Reported Not Detected (NotDetected); Efaecalis Not Reported Not Detected (NotDetected); Efaecium Not Reported Not Detected (NotDetected); Enterobacterales Not Reported Not Detected (NotDetected); Escherichia coli Not Reported Not Detected (NotDetected); H influenzae Not Reported Not Detected (NotDetected); K aerogenes Not Reported Not Detected (NotDetected); Koxytoca Not Reported Not Detected (NotDetected); Kpneumoniae grp Not Reported Not Detected (NotDetected); Lmonocyt Not Reported Not Detected (NotDetected); N meningitidis Not Reported Not Detected (NotDetected); P aeruginosa Not Reported Not Detected (NotDetected); Proteus spp Not Reported Not Detected (NotDetected); Salmonella spp Not Reported Not Detected (NotDetected); Smarcescens Not Reported Not Detected (NotDetected); Staph lugdunensis Not Reported Not Detected (NotDetected); Staph spp. Not Reported DETECTED (NotDetected); Staphaureus Not Reported Not Detected (NotDetected); Staphepi Not Reported DETECTED (NotDetected); Stenmaltophilia Not Reported Not Detected (NotDetected); Strep agal(GrpB) Not Reported Not Detected (NotDetected); Strep pneum Not Reported Not Detected (NotDetected); Strep pyog (GrpA) Not Reported Not Detected (NotDetected); Strep spp Not Reported Not Detected (NotDetected)
[2023-07-09 10:27] LABS: Anion Gap 8 (3-11); BUN Creatinine Ratio 23.9 (10-20); Blood Urea Nitrogen 11 mg/dl (6-23); Carbon Dioxide 25 mmol/L (21-32); Chloride 107 mmol/L (98-107); Creatinine Clr Calc Pharmacy 228.9 ml/min; Est GFR (African American) > 150.0 ml/min; Est GFR (Non-African American) 134.5 ml/min; Glucose 95 mg/dl (70-99(Fasting)); Potassium 3.9 mmol/L (3.5-5.1); Sodium 140 mmol/L (136-145)
[2023-07-09 10:43] LABS: Staphylococcus epidermidis DETECTED (NotDetected); Staphylococcus spp. DETECTED (NotDetected); mecAC Resistant Gene DETECTED (NotDetected)
[2023-07-09] MEDS: HYDROmorphone INJ 0.5 MG/0.5 ML SYR IV PRN ×3 (11:19→19:50)
--- NOTE | 2023-07-09 11:19 | Pharmacy Report ---
Pharmacy PK ABX Note - Date of Service July 09, 2023 - Assessment and Plan Assessment 47 year old M receiving cefepime and vancomycin for treatment of pneumonia and coverage of sacral decubitus ulcers. Blood culture (+) MRSE in 1/ which represents likely contamination. Urine culture (+) GNB. Renal function stable. Day #2 of antimicrobial therapy. Plan Vancomycin * Loading dose: 2000 mg IV x 1 * Maintenance dose: 1750 mg IV every 12 hours * Regimen is predicted to achieve target AUC/BEATRIZ of 400-600 mg/L.hr * Random level tomorrow AM Pharmacy will continue to follow and will adjust dose/frequency as necessary. Thank you. Pharmacy has transitioned to AUC monitoring for vancomycin. AUC/BEATRIZ is the preferred PK/PD target and is associated with decreased risk of nephrotoxicity compared to traditional trough targets.
--- NOTE | 2023-07-09 11:51 | Electrocardiogram Report ---
Test Reason : Blood Pressure : / mmHG Vent. Rate : 069 BPM Atrial Rate : 069 BPM P-R Int : 186 ms QRS Dur : 090 ms QT Int : 428 ms P-R-T Axes : 035 001 008 degrees QTc Int : 458 ms Normal sinus rhythm Possible Left atrial enlargement Nonspecific ST abnormality Abnormal ECG When compared with ECG of 25-JUN-2023 11:51, T wave amplitude has decreased in Anterior leads Confirmed by Toi Wright ([id number]) on 07/09/2023 11:51:00 AM Referred By: REFERRED SELF Confirmed By:Toi Wright
[2023-07-09] MEDS: CEFEPIME 2,000 MG in SYRINGE 0 ML IV SCH ×2 (13:54→21:17)
[2023-07-09] MEDS: bisacodyL 10 MG SUPP PR SCH ×2 (14:05→21:16)
--- NOTE | 2023-07-09 18:29 | Hospitalist Progress Note ---
Date of Service July 09, 2023 Assessment & Plan (1) Hypoxia: Plan: per admitting service notes with addendum: (2) RSV (respiratory syncytial virus infection): Plan: Admit to [facility] Patient presenting from home with reports of burning around suprapubic catheter and chest congestion. In the ED hypoxic on room air at 89%, currently requiring 3 L of oxygen via nasal cannula Bio fire + RSV No infiltrate noted on CXR Continue supportive care with DuoNebs, Mucinex, flutter valve, incentive spirometer If not improving by tomorrow, considering adding low-dose prednisone 07/09 Currently on room air Still having diffuse scattered crackles Bio fire showing RSV and staphylococcal species possible MRSA Follow-up cultures Continue vancomycin, and cefepime IV (3) Complicated UTI (urinary tract infection): (4) Suprapubic catheter: Plan: History of neurogenic bladder with suprapubic catheter and recurrent UTIs Previous cultures reviewed, history of various resistant organisms Will empirically start meropenem and vancomycin Follow urine culture Urology consult for suprapubic catheter exchange 07/09 Urologist consulted, no indication to exchange SP tube at this point as it has been exchanged last month, also not recommending to treat for possible UTI, most likely colonization (5) History of pulmonary embolism: Plan: On Eliquis (6) Sacral decubitus ulcer, stage IV: (7) Chronic osteomyelitis of sacrum: Plan: Present on admission Wound care nurse consult (8) Leg wound, left: Plan: Present on admission Wound care nurse consult (9) Leg wound, right: Plan: Present on admission Wound care nurse consult Wound cultures ordered Currently on IV vancomycin and cefepime Wound care nurse consulted Daily dressing changes We will consult ID We will order MRI of the back and lower extremity once respiratory status is stable (10) Paraplegia: (11) Chronic pain: Plan: Continue home dose oxycodone and other chronic medications Added IV Dilaudid as needed for increasing pain DVT PROPHYLAXIS On Eliquis plan of care discussed with patient in detail and at length all questions answered he is understanding, agreeable, comfortable with the plan of care Admission and Anticipated Discharge Date Admission Date: July 08, 2023 Subjective Follow-up for acute bronchitis secondary to RSV, UTI in the setting of suprapubic catheter, etc. Seen resting in bed, comfortable, not in distress States he is having generalized pain again today Denies shortness of breath, still having some productive cough No chest pain No abdominal pain No fevers or chills No other symptoms Review of Systems Review of Systems: all noted and negative except for above Physical Exam Physical Exam: General- oriented x 3, not in distress, speaks in sentences with no effort or accessory muscle use Eyes- anicteric Neck- no JVD Lungs-positive scattered crackles bilaterally, no wheezing, good air entry bilaterally Heart- normal rate, regular rhythm; no murmurs Abdomen- normal bowel sounds, nondistended, soft, nontender Extremities-right posterior leg: Around 6 to 8 inches length of linear wound, open, with large amount of discharge, yellowish Minimal surrounding erythema, and warmth Left posterior leg: Around 3 to 4 inches length completed wound opened, with large amount of discharge, yellowish Minimal surrounding erythema and warmth Neuro- alert, oriented x 3; no new gross focal neurologic deficits Skin- warm & dry Results & Data Results & Data Vital Signs (Past 12 Hours) Vital Signs Temp Pulse Resp BP Pulse Ox O2 Del Method 07/09/23 14:49 90 18 91 Room Air 07/09/23 12:06 83 17 94 Room Air 07/09/23 11:45 Room Air 07/09/23 11:45 36.3 C L 07/09/23 07:26 36.6 C 68 18 143/92 H 93 Room Air all noted and reviewed including below
[2023-07-09] MEDS: traZODone HCL 50 MG TAB PO SCH (21:17)
[2023-07-09] MEDS: MELATONIN 3 MG TAB PO SCH (21:19)
[2023-07-09] MEDS: BACLOFEN 10 MG TAB PO SCH (21:20)
[2023-07-09] MEDS: DOCUSATE SODIUM/SENNA 50/8.6MG TAB PO SCH (21:20)
[2023-07-09] MEDS: LIDOCAINE 5% 1 PATCH TD SCH (21:22)
[2023-07-10] MEDS: ALBUT/IPRATROP 3MG/0.5MG NEB 3 ML VIAL NEB SCH ×6 (04:34→22:58)
[2023-07-10] MEDS: CEFEPIME 2,000 MG in SYRINGE 0 ML IV SCH ×3 (04:50→21:12)
[2023-07-10] MEDS ORDERED: VANCOMYCIN LEVEL ONE (05:00)
[2023-07-10] MEDS: VANCOMYCIN HCL 1,750 MG in SODIUM CHLORIDE 0.9% 500 ML IV SCH (06:10)
[2023-07-10] MEDS: HYDROmorphone INJ 0.5 MG/0.5 ML SYR IV PRN ×5 (06:11→22:39)
[2023-07-10] MEDS: oxyCODONE HCL IR 5 MG TAB (IMMEDIATE RELEASE) PO PRN ×2 (07:40→16:13)
[2023-07-10] MEDS: bisacodyL 10 MG SUPP PR SCH ×2 (07:41→21:20)
[2023-07-10] MEDS: LACTULOSE SYRUP 20 GM/30 ML UDC PO SCH ×3 (07:41→21:12)
[2023-07-10] MEDS: POLYETHYLENE (MIRALAX) 17 GM PACK PO SCH ×2 (07:42→21:19)
[2023-07-10] MEDS: DICLOFENAC SOD 1% GEL 100 GM TUBE EXT SCH ×4 (07:42→21:15)
[2023-07-10] MEDS: SUCRALFATE 1 GM/10 ML UDC PO SCH ×4 (07:44→21:18)
[2023-07-10] MEDS: FERROUS SULFATE 325 MG TAB PO SCH (07:45)
[2023-07-10] MEDS: UMECLIDINIUM/VILANTEROL 62.5/25MCG 7 PUFFS/INHALER INH SCH (09:34)
[2023-07-10] MEDS: FLUTICASONE FUROATE 100MCG 14 PUFFS/INHALER INH SCH (09:34)
[2023-07-10] MEDS: NICOTINE 21 MG/24 HR TDSY TD SCH (09:34)
[2023-07-10] MEDS: hydrOXYzine HCl 25 MG TAB PO SCH (09:35)
[2023-07-10] MEDS: OXYBUTYNIN CHLORIDE XL 5 MG TABCR PO SCH (09:35)
[2023-07-10] MEDS: FAMOTIDINE 20 MG TAB PO SCH ×2 (09:36→21:15)
[2023-07-10] MEDS: POTASSIUM CHLORIDE CRTAB 20 MEQ TABCR PO SCH ×2 (09:36→21:18)
[2023-07-10] MEDS: DULoxetine HCL 60 MG CAP PO SCH (09:36)
[2023-07-10] MEDS: guaiFENesin 600 MG TABCR PO SCH ×2 (09:36→21:16)
[2023-07-10] MEDS: CeleBREX 200 MG CAP PO SCH ×2 (09:36→21:14)
[2023-07-10] MEDS: APIXABAN 5 MG TABLET PO SCH ×2 (09:36→21:13)
[2023-07-10] MEDS: ASCORBIC ACID 500 MG TAB PO SCH (09:36)
[2023-07-10] MEDS: VIBEGRON 75 MG TAB PO SCH (09:36)
[2023-07-10] MEDS: BACLOFEN 20 MG TAB PO SCH ×2 (09:36→12:45)
[2023-07-10] MEDS: PANTOprazole 40 MG TAB PO SCH (09:36)
[2023-07-10] MEDS: GABAPENTIN 400 MG CAP PO SCH ×3 (09:36→21:16)
[2023-07-10 09:47] LABS: BUN Creatinine Ratio 20.8 (10-20); Creatinine Clr Calc Pharmacy 198.7 ml/min; Est GFR (African American) 147.1 ml/min; Est GFR (Non-African American) 126.9 ml/min
--- NOTE | 2023-07-10 11:22 | Pharmacy Report ---
Pharmacy PK ABX Note - Date of Service July 10, 2023 - Assessment and Plan Assessment 07/10: Day #3 vancomycin. Renal function stable. Blood cultures (+) MRSE in 09/11. Left leg surface wound (+) Staph spp, Right leg surface culture (+) Staph spp. Sacrum surface culture (+) Staph spp. 07/09: 47 year old M receiving cefepime and vancomycin for treatment of pneumonia and coverage of sacral decubitus ulcers. Blood culture (+) MRSE in 08/11 which represents likely contamination. Urine culture (+) GNB. Renal function stable. Plan Vancomycin * Current regimen: vancomycin 1750mg IV q12h * Random level this AM, 18.6mcg/mL (~11hr level)- predicted to achieve ssAUC 664mg/L.hr which is supratherapeutic. * Adjust vancomycin to 1500mg IV q12h- predicted to achieve ssAUC 571mg/L.hr * Repeat random level in ~ 48h. Pharmacy will continue to follow and will adjust dose/frequency as necessary. Thank you. Pharmacy has transitioned to AUC monitoring for vancomycin. AUC/BEATRIZ is the preferred PK/PD target and is associated with decreased risk of nephrotoxicity compared to traditional trough targets.
--- NOTE | 2023-07-10 14:40 | Hospitalist Progress Note ---
Date of Service July 10, 2023 Assessment & Plan (1) Hypoxia: Plan: per admitting service notes with addendum: (2) RSV (respiratory syncytial virus infection): Plan: Admit to [facility] Patient presenting from home with reports of burning around suprapubic catheter and chest congestion. In the ED hypoxic on room air at 89%, currently requiring 3 L of oxygen via nasal cannula Bio fire + RSV No infiltrate noted on CXR Continue supportive care with DuoNebs, Mucinex, flutter valve, incentive spirometer If not improving by tomorrow, considering adding low-dose prednisone 07/10 Currently on room air Bio fire showing RSV and staphylococcal species possible MRSA Follow-up cultures Continue vancomycin, and cefepime IV continue Nebs improving overall (3) Complicated UTI (urinary tract infection): (4) Suprapubic catheter: Plan: History of neurogenic bladder with suprapubic catheter and recurrent UTIs Previous cultures reviewed, history of various resistant organisms Will empirically start meropenem and vancomycin Follow urine culture Urology consult for suprapubic catheter exchange 07/10 Urologist consulted, no indication to exchange SP tube at this point as it has been exchanged last month, also not recommending to treat for possible UTI, most likely colonization Urine culture: Serratia (5) History of pulmonary embolism: Plan: On Eliquis (6) Sacral decubitus ulcer, stage IV: (7) Chronic osteomyelitis of sacrum: Plan: Present on admission Wound care nurse consult (8) Leg wound, left: Plan: Present on admission Wound care nurse consult (9) Leg wound, right: Plan: Present on admission Wound care nurse consult Wound cultures ordered: preliminary results noted Currently on IV vancomycin and cefepime Wound care nurse consulted Daily dressing changes ID consulted We will order MRI of the back and lower extremity once respiratory status is stable- likely tomorrow (10) Paraplegia: (11) Chronic pain: Plan: Continue home dose oxycodone and other chronic medications Added IV Dilaudid as needed for increasing pain DVT PROPHYLAXIS On Eliquis plan of care discussed with patient in detail and at length all questions answered he is understanding, agreeable, comfortable with the plan of care Admission and Anticipated Discharge Date Admission Date: July 08, 2023 Subjective ff up for RSV, bronchitis, leg wounds, etc seen resting in bed, comfortable states he feels improved compared to yesterday less cough, no dyspnea, chest pain no fever/chills still has pain- acute on chronic requesting to increase Review of Systems Review of Systems: all noted and negative except for above Physical Exam Physical Exam: General- oriented x 3, not in distress, speaks in sentences with no effort or accessory muscle use Eyes- anicteric Neck- no JVD Lungs- mild rhonchi at the bases Heart- normal rate, regular rhythm; no murmurs Abdomen- normal bowel sounds, nondistended, soft, nontender Extremities- no pretibial edema, no calf tenderness wounds with dressing in place Neuro- alert, oriented x 3; no gross focal neurologic deficits Skin- warm & dry Results & Data Results & Data Vital Signs (Past 12 Hours) Vital Signs Temp Pulse Resp BP Pulse Ox O2 Del Method 07/10/23 14:19 55 L 17 96 Room Air 07/10/23 11:01 60 15 94 Room Air 07/10/23 07:57 50 L 14 94 Room Air 07/10/23 07:08 36.3 C L 59 L 18 121/78 93 Room Air all noted and reviewed including below
[2023-07-10] MEDS: ADVANCED PROBIOTIC 1250 MG CAPSULE PO SCH (16:14)
[2023-07-10] MEDS: MIDODRINE HCL 2.5 MG TAB PO SCH (17:16)
[2023-07-10] MEDS: VANCOMYCIN HCL 1,500 MG in SODIUM CHLORIDE 0.9% 500 ML IV SCH (21:12)
[2023-07-10] MEDS: BACLOFEN 10 MG TAB PO SCH (21:14)
[2023-07-10] MEDS: DOCUSATE SODIUM/SENNA 50/8.6MG TAB PO SCH (21:15)
[2023-07-10] MEDS: MELATONIN 3 MG TAB PO SCH (21:17)
[2023-07-10] MEDS: LIDOCAINE 5% 1 PATCH TD SCH (21:17)
[2023-07-10] MEDS: traZODone HCL 50 MG TAB PO SCH (21:19)
[2023-07-11] MEDS ORDERED: MIDODRINE HCL 2.5 MG TAB PO STA (01:16)
[2023-07-11] MEDS ORDERED: LACTATED RINGER'S 1,000 ML IV ONE (01:17)
[2023-07-11] MEDS: ALBUT/IPRATROP 3MG/0.5MG NEB 3 ML VIAL NEB SCH ×6 (03:08→22:42)
[2023-07-11] MEDS: CEFEPIME 2,000 MG in SYRINGE 0 ML IV SCH ×3 (03:58→21:59)
[2023-07-11 08:26] LABS: Calcium 9.2 mg/dl (8.6-10.3); Potassium 3.9 mmol/L (3.5-5.1)
[2023-07-11 08:32] LABS: BUN Creatinine Ratio 19.6 (10-20); Est GFR (African American) 143.8 ml/min
[2023-07-11] MEDS: SUCRALFATE 1 GM/10 ML UDC PO SCH ×4 (08:53→20:42)
[2023-07-11] MEDS: ASCORBIC ACID 500 MG TAB PO SCH (08:54)
[2023-07-11] MEDS: guaiFENesin 600 MG TABCR PO SCH ×2 (08:54→20:41)
[2023-07-11] MEDS: VIBEGRON 75 MG TAB PO SCH (08:54)
[2023-07-11] MEDS: hydrOXYzine HCl 25 MG TAB PO SCH (08:54)
[2023-07-11] MEDS: UMECLIDINIUM/VILANTEROL 62.5/25MCG 7 PUFFS/INHALER INH SCH ×2 (08:54→12:28)
[2023-07-11] MEDS: GABAPENTIN 400 MG CAP PO SCH ×3 (08:55→20:41)
[2023-07-11] MEDS: BACLOFEN 20 MG TAB PO SCH ×2 (08:56→12:32)
[2023-07-11] MEDS: ADVANCED PROBIOTIC 1250 MG CAPSULE PO SCH (08:56)
[2023-07-11] MEDS: PANTOprazole 40 MG TAB PO SCH (08:56)
[2023-07-11] MEDS: APIXABAN 5 MG TABLET PO SCH ×2 (08:56→20:42)
[2023-07-11] MEDS: CeleBREX 200 MG CAP PO SCH ×2 (08:56→20:42)
[2023-07-11] MEDS: bisacodyL 10 MG SUPP PR SCH ×3 (08:57→20:39)
[2023-07-11] MEDS: DICLOFENAC SOD 1% GEL 100 GM TUBE EXT SCH ×5 (08:57→20:39)
[2023-07-11] MEDS: FAMOTIDINE 20 MG TAB PO SCH ×2 (08:58→20:41)
[2023-07-11] MEDS: FERROUS SULFATE 325 MG TAB PO SCH (08:59)
[2023-07-11] MEDS: LACTULOSE SYRUP 20 GM/30 ML UDC PO SCH ×3 (08:59→20:39)
[2023-07-11] MEDS: NICOTINE 21 MG/24 HR TDSY TD SCH (08:59)
[2023-07-11] MEDS: MIDODRINE HCL 2.5 MG TAB PO SCH ×3 (09:00→17:57)
[2023-07-11] MEDS: OXYBUTYNIN CHLORIDE XL 5 MG TABCR PO SCH (09:00)
[2023-07-11] MEDS: FLUTICASONE FUROATE 100MCG 14 PUFFS/INHALER INH SCH ×2 (09:01→12:29)
[2023-07-11] MEDS: POLYETHYLENE (MIRALAX) 17 GM PACK PO SCH ×3 (09:02→20:40)
[2023-07-11] MEDS: DULoxetine HCL 60 MG CAP PO SCH (09:02)
[2023-07-11] MEDS: POTASSIUM CHLORIDE CRTAB 20 MEQ TABCR PO SCH ×2 (09:02→20:42)
[2023-07-11] MEDS: VANCOMYCIN HCL 1,500 MG in SODIUM CHLORIDE 0.9% 500 ML IV SCH ×2 (09:20→20:39)
[2023-07-11] MEDS: HYDROmorphone INJ 0.5 MG/0.5 ML SYR IV PRN ×4 (09:20→22:33)
[2023-07-11] MEDS: oxyCODONE HCL IR 5 MG TAB (IMMEDIATE RELEASE) PO PRN ×2 (12:52→20:40)
--- NOTE | 2023-07-11 14:46 | Infectious Disease Consult ---
Date of Service July 11, 2023 Telehealth Information I performed this visit using a real-time telehealth connection between my location and the patients location ([facility]). After connecting through interactive tele-video, patient was identified by name and date of and/or wristband check.Patient (or authorized healthcare field service representative) was informed that this was a telemedicine visit and it was being conducted confidentially over secure lines. My office door was closed and no one else was present in the room with me.Patient (or authorized healthcare field service representative) provided consent to proceed with the visit, expressed an understanding of privacy and security of the telemedicine visit, and gave permission to have a hospital field service representative in the room in order to assist with the visit and to conduct portions of the visit, as needed. I informed the patient (or authorized healthcare field service representative) that I reviewed their record and presented the opportunity for them to ask any questions regarding the visit today. The patient agreed to participate. 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 Patient does have Hx of chronic sacral osteomyelitis that was addressed during his last visit and we decided on no need for treatment. Also, the CoNS growing in the blood Cx on admission is likely contaminant and the serratia and gram neg bacilli growing from urine Cx are colonizers. Therefore, I would recommend stopping all current antibiotics. Continue supportive care for RSV infection. - Thank you for consulting ID. We will sign off for now. History of Present Illness History of Present Illness Mr. Fried is a 47-year-old man with medical history of cervical spinal cord injury with quadriplegia, diastolic heart failure, saddle pulmonary embolism, neurogenic bladder with suprapubic catheter and chronic sacral pressure ulcer who was admitted to [facility] on 07/08 because of pain around his suprapubic c atheter and chest congestion. He mentioned that the chest tightness and wheezing started around 2 days prior to presentation and was associated with mild shortness of breath and dry cough. He did not endorse any fever or chills. On presentation, he was afebrile but bradycardic at 38 and saturating around 89% at room air. His initial workup was impressive for positive rhinovirus on the RSV panel, normocytic anemia, UA with more than 30 WBCs but also more than 30 epithelial cells, and shortly after admission, 2/4 bottles of blood culture came back positive for coagulase-negative staph. On physical exam, the patient was suspected to have infected pressure ulcer. Therefore, id team was consulted for further recommendations and management of antibiotics. Allergies Allergy/AdvReac Type Severity Reaction Status Date / Time No Known Allergies Allergy Verified 06/24/23 00:19 Home Medications Medication Instructions Recorded Confirmed Type Naloxone Hcl 4 Mg/0.1ml Liquid See Rx Instructions .Route 05/15/23 07/08/23 History .COMPLEX PRN Opioid Overdose acetaminophen 500 mg tablet 500 mg PO .Q 4 HRS WHILE AWAKE 05/15/23 07/08/23 History apixaban 5 mg tablet 5 mg PO AMHS 05/15/23 07/08/23 History ascorbic acid (vitamin C) 500 mg 500 mg PO QAM 05/15/23 07/08/23 History tablet (Vitamin C) bisacodyl 10 mg rectal suppository 10 mg ND AMPM 05/15/23 07/08/23 History celecoxib 200 mg capsule 200 mg PO AMHS 05/15/23 07/08/23 History collagenase clostridium histo. 250 1 applic topical DAILY 05/15/23 07/08/23 History unit/gram topical ointment (Santyl) diclofenac sodium 1 % topical gel 2 g topical QID 05/15/23 07/08/23 History duloxetine 60 mg capsule,delayed 60 mg PO QAM 05/15/23 07/08/23 History release famotidine 20 mg tablet 20 mg PO AMHS 05/15/23 07/08/23 History ferrous sulfate 325 mg (65 mg 325 mg PO QDB 05/15/23 07/08/23 History iron) tablet fluticasone propionate 100 1 inh inhalation AMHS 05/15/23 07/08/23 History mcg/actuation blister powder for inhalation hydroxyzine HCl 25 mg tablet 25 mg PO QAM 05/15/23 07/08/23 History lactulose 20 gram/30 mL oral 20 g PO TID 05/15/23 07/08/23 History solution lidocaine 5 % topical patch 1 patch topical DAILY 05/15/23 07/08/23 History lidocaine HCl 2 % mucosal solution 5 ml PO ACHS PRN as directed 05/15/23 07/08/23 History (Lidocaine Viscous) melatonin 3 mg tablet 3 mg PO HS 05/15/23 07/08/23 History mirabegron 50 mg tablet,extended 50 mg PO QAM 05/15/23 07/08/23 History release 24 hr (Myrbetriq) oxybutynin chloride 10 mg 10 mg PO QAM 05/15/23 07/08/23 History tablet,extended release 24 hr pantoprazole 40 mg tablet,delayed 40 mg PO QAM 05/15/23 07/08/23 History release polyethylene glycol 3350 17 gram 17 g PO AMHS 05/15/23 07/08/23 History oral powder packet (Miralax) potassium chloride 20 mEq 20 meq PO AMHS 05/15/23 07/08/23 History tablet,extended release(part/cryst) sennosides 8.6 mg-docusate sodium 2 tab-cap PO HS 05/15/23 07/08/23 History 50 mg tablet solifenacin 10 mg tablet 10 mg PO QAM 05/15/23 07/08/23 History trazodone 50 mg tablet 50 mg PO HS 05/15/23 07/08/23 History umeclidinium 62.5 mcg-vilanterol 1 inh inhalation QA 05/15/23 07/08/23 History 25 mcg/actuation powdr for inhalation (Anoro Ellipta) albuterol sulfate 2.5 mg/3 mL 1.25 mg (1.5 mL) inhalation Q8H 05/19/23 07/08/23 Rx (0.083 %) solution for nebulization PRN bronchospasm #90 mL Unknown "Water" Pill 1 dose PO QAM 06/19/23 07/08/23 History gabapentin 400 mg capsule 400 mg PO TID@0900,1200,2100 #90 06/21/23 07/08/23 Rx caps sucralfate 100 mg/mL oral 1 g (10 mL) PO ACHS #400 mL 06/21/23 07/08/23 Rx suspension multivitamin with minerals-folic 1 tab PO DAILY 06/24/23 07/08/23 History acid 200 mcg chewable tablet (Adult Multivitamin Gummies) baclofen 10 mg tablet 10 mg PO UD #20 tabs 06/25/23 07/08/23 Rx oxycodone 5 mg tablet 5 mg PO Q6H PRN moderate to severe 06/25/23 07/08/23 Rx pain #12 tabs Patient History Medical History History of pulmonary embolism Chronic pain Suprapubic catheter Paraplegia Chronic osteomyelitis of sacrum Sacral decubitus ulcer, stage IV Surgical History No pertinent past surgical history Social History Smoking Status: Current every day smoker Tobacco Type: Cigarettes Cigarettes Per Day: 1 pack; Second Hand Exposure: Yes; Do You Dip or Chew Tobacco: Yes; Hx Alcohol Use: No Hx Substance Use: Yes Last Used Substance: Days (ago) Last Used Substance Other:: 07/07/23 last used Preferred Language: Kazakh Communication Ability: Effective Field Research Assistant Required: No Beliefs That Will Affect Care: None Current Living Situation: Alone Current Living Situation Comment: alone with 28/02 home care Feels Safe at Home: Yes Safety Concerns: Feels Safe At This Time Assistive Devices: Scooter/Electric Scooter Review of Systems Constitutional: No fatigue, no fever or chills HEENT: no sore throat, no nasal discharge Cardiovascular: no chest pain, or palpitations Respiratory: Shortness of breath, with dry cough Gastrointestinal: No nausea, vomiting, diarrhea or abdominal pain : suprapubic catheter in place Musculoskeletal/Skin: bilateral leg wounds and sacral pressure ulcer wounds Neurologic: no dizziness or headache Physical Exam couldn't be performed as the consult was conducted via telemed. Results & Data Vital Signs (Past 12 Hours) Vital Signs Temp Pulse Resp BP BP Pulse Ox O2 Del Method 07/11/23 14:38 36.3 C L 60 18 138/83 95 Room Air 07/11/23 12:34 71 111/64 96 Room Air 07/11/23 11:06 72 18 95 Room Air 07/11/23 07:42 72 18 129/89 94 Room Air 12/04/23 07:34 55 L 18 97 Room Air Laboratory Results MICROBIOLOGY: 07/08: 2 of 4 bottles of blood cultures growing coagulase-negative staph 07/08: Urine culture growing Serratia and Gram-negative bacilli 07/09: Left leg pressure ulcer swab growing MRSA a 07/09: Sacral pressure ulcer swab growing MRSA 122: Right leg pressure ulcer swab growing MRSA and group a strep 3: 2 sets of blood culture negative to date Diagnostic Findings CXR on 07/08: no acute cardiopulmonary disease.
--- NOTE | 2023-07-11 17:55 | Hospitalist Progress Note ---
Date of Service July 11, 2023 Assessment & Plan (1) Hypoxia: Plan: per admitting service notes with addendum: (2) RSV (respiratory syncytial virus infection): Plan: Admit to [facility] Patient presenting from home with reports of burning around suprapubic catheter and chest congestion. In the ED hypoxic on room air at 89%, currently requiring 3 L of oxygen via nasal cannula Bio fire + RSV No infiltrate noted on CXR Continue supportive care with DuoNebs, Mucinex, flutter valve, incentive spirometer If not improving by tomorrow, considering adding low-dose prednisone 07/11 Currently on room air Bio fire showing RSV and staphylococcal species possible MRSA blood culture: 08/09 coag negative staph not lugdunensis Repeat blood cultures: Negative Continue vancomycin, and cefepime IV continue Nebs Improving ID consulted (3) Complicated UTI (urinary tract infection): (4) Suprapubic catheter: Plan: History of neurogenic bladder with suprapubic catheter and recurrent UTIs Previous cultures reviewed, history of various resistant organisms Will empirically start meropenem and vancomycin Follow urine culture Urology consult for suprapubic catheter exchange 07/11 Urologist consulted, no indication to exchange SP tube at this point as it has been exchanged last month, also not recommending to treat for possible UTI, most likely colonization Urine culture: Serratia, gram-negative bacilli (5) History of pulmonary embolism: Plan: On Eliquis (6) Sacral decubitus ulcer, stage IV: (7) Chronic osteomyelitis of sacrum: Plan: Present on admission Wound care nurse consult (8) Leg wound, left: Plan: Present on admission Wound care nurse consult (9) Leg wound, right: Plan: Present on admission Wound care nurse consult Wound cultures leg: MRSA, group A beta strep Wound culture sacrum: MRSA Currently on IV vancomycin and cefepime Wound care nurse consulted Daily dressing changes ID consulted We will order MRI of the back and lower extremity once respiratory status is stable- likely tomorrow (10) Paraplegia: (11) Chronic pain: Plan: Continue home dose oxycodone and other chronic medications Added IV Dilaudid as needed for increasing pain DVT PROPHYLAXIS On Eliquis plan of care discussed with patient in detail and at length all questions answered he is understanding, agreeable, comfortable with the plan of care Admission and Anticipated Discharge Date Admission Date: July 08, 2023 Subjective Follow-up for acute bronchitis, RSV, back and leg wounds, etc. Seen resting in bed, comfortable, no distress States he is feeling improved overall Breathing is improving Less cough Generalized pain also seems to be better No other new symptoms Review of Systems Review of Systems: all noted and negative except for above Physical Exam Physical Exam: General- oriented x 3, not in distress, speaks in sentences with no effort or accessory muscle use Eyes- anicteric Neck- no JVD Lungs-mild rhonchi at the bases, good air entry bilaterally Heart- normal rate, regular rhythm; no murmurs Abdomen- normal bowel sounds, nondistended, soft, nontender Extremities- no pretibial edema, no calf tenderness dressings in place: no bleeding, or discharge Neuro- alert, oriented x 3; no gross focal neurologic deficits Skin- warm & dry Results & Data Results & Data Vital Signs (Past 12 Hours) Vital Signs Temp Pulse Resp BP BP Pulse Ox O2 Del Method 07/11/23 14:55 60 19 95 Room Air 07/11/23 14:38 36.3 C L 60 18 138/83 95 Room Air 07/11/23 12:34 71 111/64 96 Room Air 07/11/23 11:06 72 18 95 Room Air 07/11/23 07:42 72 18 129/89 94 Room Air 07/11/23 07:34 55 L 18 97 Room Air 07/11/23 07:30 Room Air all noted and reviewed including below
[2023-07-11] MEDS: DOCUSATE SODIUM/SENNA 50/8.6MG TAB PO SCH (20:39)
[2023-07-11] MEDS: LIDOCAINE 5% 1 PATCH TD SCH (20:39)
[2023-07-11] MEDS: BACLOFEN 10 MG TAB PO SCH (20:40)
[2023-07-11] MEDS: MELATONIN 3 MG TAB PO SCH (20:41)
[2023-07-11] MEDS: traZODone HCL 50 MG TAB PO SCH (20:43)
[2023-07-12] MEDS: bisacodyL 10 MG SUPP PR SCH ×4 (01:20→20:05)
[2023-07-12] MEDS: HYDROmorphone INJ 0.5 MG/0.5 ML SYR IV PRN ×4 (03:07→22:12)
[2023-07-12] MEDS: ALBUT/IPRATROP 3MG/0.5MG NEB 3 ML VIAL NEB SCH ×6 (04:00→23:33)
[2023-07-12] MEDS: CEFEPIME 2,000 MG in SYRINGE 0 ML IV SCH (04:21)
[2023-07-12 06:30] LABS: Calcium 9.4 mg/dl (8.6-10.3); Creatinine Clr Calc Pharmacy 198.7 ml/min; Est GFR (African American) 147.1 ml/min; Est GFR (Non-African American) 126.9 ml/min; Potassium 3.9 mmol/L (3.5-5.1)
[2023-07-12] MEDS: ACETAMINOPHEN 325 MG TAB PO PRN ×2 (07:10→12:21)
[2023-07-12] MEDS ORDERED: VANCOMYCIN LEVEL ONE (07:30)
[2023-07-12] MEDS: ADVANCED PROBIOTIC 1250 MG CAPSULE PO SCH (08:17)
[2023-07-12] MEDS: guaiFENesin 600 MG TABCR PO SCH ×2 (08:17→20:11)
[2023-07-12] MEDS: ASCORBIC ACID 500 MG TAB PO SCH (08:19)
[2023-07-12] MEDS: GABAPENTIN 400 MG CAP PO SCH ×3 (08:19→21:19)
[2023-07-12] MEDS: BACLOFEN 20 MG TAB PO SCH ×2 (08:20→12:11)
[2023-07-12] MEDS: FAMOTIDINE 20 MG TAB PO SCH ×2 (08:20→20:10)
[2023-07-12] MEDS: VIBEGRON 75 MG TAB PO SCH (08:20)
[2023-07-12] MEDS: CeleBREX 200 MG CAP PO SCH ×2 (08:20→20:07)
[2023-07-12] MEDS: FERROUS SULFATE 325 MG TAB PO SCH (08:21)
[2023-07-12] MEDS: POTASSIUM CHLORIDE CRTAB 20 MEQ TABCR PO SCH ×2 (08:21→20:14)
[2023-07-12] MEDS: PANTOprazole 40 MG TAB PO SCH (08:21)
[2023-07-12] MEDS: APIXABAN 5 MG TABLET PO SCH (08:21)
[2023-07-12] MEDS: LACTULOSE SYRUP 20 GM/30 ML UDC PO SCH ×3 (08:22→20:04)
[2023-07-12] MEDS: SUCRALFATE 1 GM/10 ML UDC PO SCH ×5 (08:22→20:15)
[2023-07-12] MEDS: OXYBUTYNIN CHLORIDE XL 5 MG TABCR PO SCH (08:23)
[2023-07-12] MEDS: NICOTINE 21 MG/24 HR TDSY TD SCH (08:23)
[2023-07-12] MEDS: FLUTICASONE FUROATE 100MCG 14 PUFFS/INHALER INH SCH (08:24)
[2023-07-12] MEDS: UMECLIDINIUM/VILANTEROL 62.5/25MCG 7 PUFFS/INHALER INH SCH (08:25)
[2023-07-12] MEDS: hydrOXYzine HCl 25 MG TAB PO SCH (08:26)
[2023-07-12] MEDS: POLYETHYLENE (MIRALAX) 17 GM PACK PO SCH ×2 (08:26→20:14)
[2023-07-12] MEDS: DICLOFENAC SOD 1% GEL 100 GM TUBE EXT SCH ×4 (08:27→20:08)
[2023-07-12] MEDS: MIDODRINE HCL 2.5 MG TAB PO SCH ×2 (08:29→12:12)
[2023-07-12] MEDS: DULoxetine HCL 60 MG CAP PO SCH (10:39)
[2023-07-12] MEDS: VANCOMYCIN HCL 1,500 MG in SODIUM CHLORIDE 0.9% 500 ML IV SCH (10:40)
[2023-07-12] MEDS ORDERED: hydrALAZINE HCL 20 MG/ML VIAL IV ONE ×2 (10:46→12:24)
[2023-07-12] MEDS ORDERED: hydrALAZINE HCL 20 MG/ML VIAL ONE (10:51)
[2023-07-12] MEDS ORDERED: amLODIPine BESYLATE 5 MG TAB PO ONE (12:23)
[2023-07-12] MEDS ORDERED: PROMETHAZINE HCL 12.5 MG in SODIUM CHLORIDE 0.9% 50 ML IV STA (12:25)
--- NOTE | 2023-07-12 13:34 | CT Scan Report ---
CT abd pelvis wo con CLINICAL HISTORY: severe lower abdominal pain TECHNIQUE: Helical axial images of the abdomen and pelvis were obtained. Automated dose lowering tech niques and/or adjustment according to patient size were utilized for this exam. This exam was perfor med without intravenous contrast. CT DOSE: 2252.58 mGy.cm COMPARISON: Comparison is made to CT abdomen pelvis 06/24/2023 FINDINGS: Lower chest: Bibasilar atelectasis versus scarring is seen. Liver: Unremarkable. No focal lesions are seen. Gallbladder and biliary tree: Patient is status post cholecystectomy. No intra- or extrahepatic bilia ry ductal dilation. Pancreas: Unremarkable, no focal lesions. Spleen: Unremarkable. Adrenals: Unremarkable. Kidneys and ureters: Bilateral hydronephrosis and hydroureter are seen. Nonobstructive stones are see n bilaterally. No ureteral stones. Bladder: Enlarged bladder is seen with a suprapubic catheter. Reproductive organs: Unremarkable. Bowel: Mild thickening of the rectal wall is suggested. Lymph nodes Retroperitoneal: Unremarkable. Pelvic: Unremarkable. Mesenteric: Unremarkable. Peritoneum: Normal. Vessels: Unremarkable. Abdominal wall: A sacral decubitus ulcer is seen, possibly slightly smaller than prior exam. Bones: Degenerative changes in the visualized spine. Redemonstration of sacral erosion secondary to p reviously noted decubitus ulcer. IMPRESSION: 1. Bilateral hydronephrosis and hydroureter are likely secondary to bladder distention. Markedly dis tended bladder is seen with a suprapubic catheter in place. 2. Rectal wall thickening which may represent proctitis, clinical correlation is recommended. 3. Nonobstructive nephrolithiasis. 4. Chronic sacral decubitus ulcer and sacral erosions are seen, the ulcer may be slightly smaller th an the prior exam. ACT 112: Negative or not required by law. Electronically signed by: Shahid ePter M.D. 07/12/2023 1:33 PM
--- NOTE | 2023-07-12 13:46 | CT Scan Report ---
HEAD CT NONCONTRAST CT DOSE: HISTORY: headache, r/o cva TECHNIQUE: Multiaxial CT images of the head were performed without the use of intravenous contrast. A utomated exposure control was utilized for this study. A dose lowering technique was utilized adheri ng to the principles of ALARA. Comparison: None. Findings: Partial opacification of the ethmoid air cells with a small fluid level within the right sp henoid sinus. The mastoid air cells are clear. There is an old fracture within the right mandibular c ondyle with anterior dislocation of the right mandibular condyle and relation to the mandibular fossa . This may be chronic. The calvarium and skull base are intact. The ventricles and sulci are within n ormal limits. There is no mass, hematoma, midline shift, or acute infarct. Impression: 1. No acute intracranial abnormality. 2. Sinus disease as described above. 3. There is an old fracture within the right mandibular condyle with anterior dislocation of the righ t mandibular condyle and relation to the mandibular fossa. This may be chronic. ACT 112: Negative or not required by law. Electronically signed by: Zeeshan Mejia M.D. 07/12/2023 1:44 PM
[2023-07-12] MEDS ORDERED: HYDROmorphone INJ 0.5 MG/0.5 ML SYR IV STA (14:18)
[2023-07-12] MEDS ORDERED: NITROGLYCERIN 2% OINTMENT 30GM TUBE EXT SCH (15:00)
[2023-07-12] MEDS ORDERED: SODIUM CHLORIDE 0.9% 1,000 ML IV ONE (17:56)
--- NOTE | 2023-07-12 19:31 | Hospitalist Progress Note ---
Date of Service July 12, 2023 Assessment & Plan (1) Hypoxia: Plan: per admitting service notes with addendum: (2) RSV (respiratory syncytial virus infection): Plan: Admit to [facility] Patient presenting from home with reports of burning around suprapubic catheter and chest congestion. In the ED hypoxic on room air at 89%, currently requiring 3 L of oxygen via nasal cannula Bio fire + RSV No infiltrate noted on CXR 07/12 Currently on room air Bio fire showing RSV and staphylococcal species possible MRSA blood culture: 08/09 coag negative staph not lugdunensis Repeat blood cultures: Negative Placed on vancomycin, and cefepime IV continue Nebs Patient is improving ID consulted-recommend to DC all antibiotics for now and provide supportive care (3) Complicated UTI (urinary tract infection): (4) Suprapubic catheter: Plan: History of neurogenic bladder with suprapubic catheter and recurrent UTIs Previous cultures reviewed, history of various resistant organisms Urologist consulted, no indication to exchange SP tube at this point as it has been exchanged last month, also not recommending to treat for possible UTI, most likely colonization Urine culture: Serratia, gram-negative bacilli 07/12 Patient reporting severe lower abdominal pain On exam was having abdominal distention CT abdomen pelvis showing severely dilated bladder, with hydronephrosis Discussed with RN, asked to flush suprapubic catheter, as per RN, catheter draining well, patient is good urine output HYPERTENSIVE URGENCY Blood pressure highly elevated in the 200 systolic due to severe lower abdominal pain (Initially on admission, patient;s BP marginal, apparently takes midodrine at home so that was ordered) Hydralazine IV, amlodipine, given Severe pain persisted, with elevated blood pressure Ordered IV Dilaudid additional dose Ordered Nitropatch Patient blood pressure decreased to systolic 70s, drowsy but easily arousable, oriented Ordered Nitropatch to be discontinued, IV fluid bolus ordered and patient placed on Trendelenburg position Discussed with RN again, asked to flush suprapubic catheter again, this time patient had increased urine output after flushing Discussed with urologist on-call via [employer] text, recommend to change out suprapubic catheter, for tonight since output has been increasing already since flushing, keep suprapubic catheter for the meantime Reassess throughout the night if exchange needs to be performed, discussed with urology in the morning (5) History of pulmonary embolism: Plan: Hold in light of hypertensive urgency, resume once blood pressure stable (6) Sacral decubitus ulcer, stage IV: (7) Chronic osteomyelitis of sacrum: Plan: Present on admission Wound care nurse consult (8) Leg wound, left: Plan: Present on admission Wound care nurse consult (9) Leg wound, right: Plan: Present on admission Wound care nurse consult Wound cultures leg: MRSA, group A beta strep Wound culture sacrum: MRSA placed on IV vancomycin and cefepime Wound care nurse consulted Daily dressing changes ID consulted-does not feel patient has wound infections Recommend to discontinue all antibiotics Monitor closely (10) Paraplegia: (11) Chronic pain: Plan: Continue home dose oxycodone and other chronic medications Added IV Dilaudid as needed for increasing pain DVT PROPHYLAXIS On Eliquis-held in light of hypertensive urgency plan of care discussed with patient in detail and at length all questions answered he is understanding, agreeable, comfortable with the plan of care Admission and Anticipated Discharge Date Admission Date: July 08, 2023 Subjective Follow-up for acute bronchitis secondary to RSV, sacral decubitus ulcers, etc. Notified by RN as patient was having severe abdominal pain, with elevated blood pressure in the systolic 200s Seen resting in bed, not in distress but reporting significant lower abdominal pain Positive flatus, positive BM Was also having some headache and nausea No problems with breathing, less cough No other new symptom Review of Systems Review of Systems: all noted and negative except for above Physical Exam Physical Exam: General- oriented x 3, not in distress, speaks in sentences with no effort or accessory muscle use Eyes- anicteric Neck- no JVD Lungs- clear breath sounds bilaterally, no crackles or wheezing Heart- normal rate, regular rhythm; no murmurs Abdomen- normal bowel sounds, mildly distended, soft, moderate lower abdominal tenderness Extremities- no pretibial edema, no calf tenderness Neuro- alert, oriented x 3; no new gross focal neurologic deficits Skin- warm & dry Results & Data Results & Data Vital Signs (Past 12 Hours) Vital Signs Pulse Resp BP BP Pulse Ox O2 Del Method 07/12/23 15:46 116 H 105/68 95 Room Air 07/12/23 15:23 110 H 18 96 Room Air 07/12/23 14:38 65 183/126 H 97 Room Air 07/12/23 14:07 64 183/120 H 98 Room Air 07/12/23 13:31 69 161/110 H 97 Room Air 07/12/23 12:43 184/108 H 07/12/23 12:30 184/113 H 07/12/23 11:20 108/76 07/12/23 10:42 198/120 H 214/131 H 07/12/23 08:31 175/114 H 07/12/23 07:47 70 20 92 Room Air 07/12/23 07:40 Room Air all noted and reviewed including below
[2023-07-12] MEDS: BACLOFEN 10 MG TAB PO SCH (20:04)
[2023-07-12] MEDS: DOCUSATE SODIUM/SENNA 50/8.6MG TAB PO SCH (20:12)
[2023-07-12] MEDS: LIDOCAINE 5% 1 PATCH TD SCH (20:13)
[2023-07-12] MEDS: SODIUM CHLORIDE 0.9% 1,000 ML IV SCH (21:19)
[2023-07-12] MEDS: MELATONIN 3 MG TAB PO SCH (22:13)
[2023-07-13] MEDS: traZODone HCL 50 MG TAB PO SCH ×2 (01:42→21:16)
[2023-07-13] MEDS: POLYETHYLENE (MIRALAX) 17 GM PACK PO SCH ×3 (01:44→21:15)
[2023-07-13] MEDS: bisacodyL 10 MG SUPP PR SCH ×3 (01:46→21:01)
[2023-07-13] MEDS: ALBUT/IPRATROP 3MG/0.5MG NEB 3 ML VIAL NEB SCH ×3 (03:17→19:47)
[2023-07-13] MEDS: HYDROmorphone INJ 0.5 MG/0.5 ML SYR IV PRN ×5 (03:39→21:25)
[2023-07-13] MEDS: SODIUM CHLORIDE 0.9% 1,000 ML IV SCH ×2 (03:46→12:42)
[2023-07-13] MEDS: oxyCODONE HCL IR 5 MG TAB (IMMEDIATE RELEASE) PO PRN ×3 (06:13→20:59)
[2023-07-13 06:55] LABS: Anion Gap 6 (3-11); Blood Urea Nitrogen 8 mg/dl (6-23); Carbon Dioxide 22 mmol/L (21-32); Chloride 111 mmol/L (98-107); Creatinine Clr Calc Pharmacy 263.3 ml/min; Est GFR (African American) > 150.0 ml/min; Est GFR (Non-African American) 142.4 ml/min; Glucose 79 mg/dl (70-99(Fasting)); Potassium 3.8 mmol/L (3.5-5.1); Sodium 139 mmol/L (136-145)
[2023-07-13] MEDS: GABAPENTIN 400 MG CAP PO SCH ×3 (08:54→21:06)
[2023-07-13] MEDS: SUCRALFATE 1 GM/10 ML UDC PO SCH ×4 (08:55→21:19)
[2023-07-13] MEDS: UMECLIDINIUM/VILANTEROL 62.5/25MCG 7 PUFFS/INHALER INH SCH (08:55)
[2023-07-13] MEDS: POTASSIUM CHLORIDE CRTAB 20 MEQ TABCR PO SCH ×2 (08:58→21:10)
[2023-07-13] MEDS: BACLOFEN 20 MG TAB PO SCH ×2 (08:59→12:42)
[2023-07-13] MEDS: CeleBREX 200 MG CAP PO SCH ×2 (08:59→21:04)
[2023-07-13] MEDS: guaiFENesin 600 MG TABCR PO SCH ×2 (09:00→21:06)
[2023-07-13] MEDS: ASCORBIC ACID 500 MG TAB PO SCH (09:00)
[2023-07-13] MEDS: VIBEGRON 75 MG TAB PO SCH (09:01)
[2023-07-13] MEDS: OXYBUTYNIN CHLORIDE XL 5 MG TABCR PO SCH (09:02)
[2023-07-13] MEDS: NICOTINE 21 MG/24 HR TDSY TD SCH (09:03)
[2023-07-13] MEDS: DULoxetine HCL 60 MG CAP PO SCH (09:05)
[2023-07-13] MEDS: PANTOprazole 40 MG TAB PO SCH (09:06)
[2023-07-13] MEDS: FERROUS SULFATE 325 MG TAB PO SCH (09:06)
[2023-07-13] MEDS: FAMOTIDINE 20 MG TAB PO SCH ×2 (09:07→21:05)
[2023-07-13] MEDS: hydrOXYzine HCl 25 MG TAB PO SCH (09:08)
[2023-07-13] MEDS: ADVANCED PROBIOTIC 1250 MG CAPSULE PO SCH (09:08)
[2023-07-13] MEDS: DICLOFENAC SOD 1% GEL 100 GM TUBE EXT SCH ×4 (09:09→21:13)
[2023-07-13] MEDS: FLUTICASONE FUROATE 100MCG 14 PUFFS/INHALER INH SCH (09:10)
[2023-07-13] MEDS: LACTULOSE SYRUP 20 GM/30 ML UDC PO SCH ×3 (09:11→20:48)
--- NOTE | 2023-07-13 10:38 | Urology Progress Note ---
Date of Service July 13, 2023 Assessment & Plan (1) Suprapubic catheter: Plan: Urology follow-up of suprapubic catheter 18F suprapubic catheter was exchanged today without difficulty Okay to flush suprapubic catheter as needed for catheter obstruction Recommend monthly catheter exchanges Unclear if this is being done routinely Patient needs to reestablish follow-up with outside urologist, Dr. Howard will sign off, contact our service with any additional questions or concerns Admission and Anticipated Discharge Date Admission Date: July 08, 2023 Subjective Urology asked to revisit patient for SP catheter exchange Nursing reported issues with catheter drainage yesterday evening SP catheter was flushed by nursing with return of 1,475 ml of output Patient awake and resting in bed Denies suprapubic discomfort Sanchez catheter is patent and draining Denies nausea, vomiting, fever or chills He reports he flushes his catheter at home as needed, typically when it is almost due for exchange He thinks the catheter was exchanged about 1 month ago, but uncertain of date Review of Systems Constitutional: as per Subjective / HPI Gastrointestinal: as per Subjective / HPI Genitourinary: + as per Subjective / HPI Physical Exam Constitutional: no acute distress Respiratory: normal respiratory effort; no respiratory distress and no labored breathing Gastrointestinal (Abdomen): Inspection/Auscultation: abdomen normal to ins pection; abdomen not distended Neurologic: awake Psychiatric: Orientation: alert and oriented x 3 Genitourinary: Patient with an 18F suprapubic catheter intact, patent and draining yellow urine. Balloon was deflated and removed without difficulty. Patient was prepped and draped using sterile fashion. A well lubricated 18F catheter was inserted into the suprapubic tract without difficulty. Patient tolerated the procedure, no complications noted. The catheter was patent and draining appropriately at completion. Results & Data Vital Signs (Past 12 Hours) Vital Signs Temp Pulse Pulse Resp BP Pulse Ox O2 Del Method 07/13/23 07:15 80 18 95 Room Air 07/13/23 07:00 36.4 C L 74 18 109/65 96 Room Air 07/13/23 03:13 36.3 C L 63 16 112/77 95 Room Air 07/13/23 02:35 66 07/12/23 23:11 36.2 C L 70 16 97/65 L 92 Room Air 07/12/23 22:53 Room Air PG Care Time/CCT Total # of Minutes Spent Total Time Spent with Patient: Total time spent is greater than 50% in coordination of care (as documented) at patient's floor/unit and/or counseling patient: Coding Level of Care Code 57422 SUB INP/OBS CARE 1/25MIN Diagnoses Suprapubic catheter Z93.59
--- NOTE | 2023-07-13 15:28 | Hospitalist Progress Note ---
Date of Service July 13, 2023 Assessment & Plan (1) Hypoxia: Plan: per admitting service notes with addendum: (2) RSV (respiratory syncytial virus infection): Plan: Patient presenting from home with reports of burning around suprapubic catheter and chest congestion. In the ED hypoxic on room air at 89%, currently requiring 3 L of oxygen via nasal cannula Bio fire + RSV No infiltrate noted on CXR blood culture: 08/09 coag negative staph not lugdunensis Repeat blood cultures: Negative Placed on vancomycin, and cefepime IV continue Nebs Patient is improving ID consulted-recommend to DC all antibiotics for now and provide supportive care (3) Complicated UTI (urinary tract infection): (4) Suprapubic catheter: Plan: History of neurogenic bladder with suprapubic catheter and recurrent UTIs Previous cultures reviewed, history of various resistant organisms On 07/12; patient had severe lower abdominal pain. CT abdomen pelvis showed severely dilated bladder with hydronephrosis from Found to have suprapubic catheter blockage. Status post exchange of suprapubic catheter today (July 13, 2023) by urology. Continue to monitor urine output. Flush as needed (5) History of pulmonary embolism: Plan: On Eliquis (6) Sacral decubitus ulcer, stage IV: (7) Chronic osteomyelitis of sacrum: Plan: Present on admission Wound care nurse on board (8) Leg wound, left: Plan: Present on admission Wound care nurse on board (9) Leg wound, right: Plan: Present on admission Wound care nurse on board Wound cultures leg: MRSA, group A beta strep Wound culture sacrum: MRSA placed on IV vancomycin and cefepime Wound care nurse consulted Daily dressing changes ID consulted-does not feel patient has wound infections Recommend to discontinue all antibiotics Monitor closely (10) Paraplegia: (11) Chronic pain: Plan: Continue home dose oxycodone and other chronic medications Added IV Dilaudid as needed for increasing pain DVT PROPHYLAXIS On Eliquis Please note the above document was generated using voice recognition software. It may contain grammatical, syntax or spelling errors. Any formal questions or concerns about the content, text or information contained within the body of this dictation should be directly addressed to the provider for clarification Admission and Anticipated Discharge Date Admission Date: July 08, 2023 Subjective Patient seen and examined at bedside. He is lying in the bed comfortably; not in distress. Suprapubic catheter was exchanged by urology today. Review of Systems Review of Systems: All systems reviewed & are unremarkable except as noted in Subjective Physical Exam Physical Exam: General- oriented x 3, not in distress, speaks in sentences with no effort or accessory muscle use Eyes- anicteric Neck- no JVD Lungs- clear breath sounds bilaterally, no crackles or wheezing Heart- normal rate, regular rhythm; no murmurs Abdomen- normal bowel sounds, mildly distended, soft, moderate lower abdominal tenderness Extremities- no pretibial edema, no calf tenderness Neuro- alert, oriented x 3; no new gross focal neurologic deficits Skin- warm & dry Results & Data Results & Data Vital Signs (Past 12 Hours) Vital Signs Temp Pulse Resp BP Pulse Ox O2 Del Method 07/13/23 11:52 36.7 C 80 17 117/83 95 Room Air 07/13/23 07:50 Room Air 07/13/23 07:15 80 18 95 Room Air 07/13/23 07:00 36.4 C L 74 18 109/65 96 Room Air Laboratory Results Laboratory Results WBC 6.39 K/ul (4.8-10.8) 07/09/23 09:35 RBC 4.65 M/uL (4.70-6.10) L 07/09/23 09:35 Hgb 12.5 g/dl (14.0-18.0) L 07/09/23 09:35 Hct 39.3 % (42.0-52.0) L 07/09/23 09:35 MCV 84.5 fL (80.0-100.0) 07/09/23 09:35 MCH 26.9 pg (25.0-34.0) 07/09/23 09:35 MCHC 31.8 g/dL (32.0-36.0) L 07/09/23 09:35 RDW Std Deviation 55.1 fL (36.4-46.3) H 07/09/23 09:35 RDW Coeff of [place] 17.8 % (11.5-14.5) H 07/09/23 09:35 Plt Count 244 K/uL (130-400) 07/09/23 09:35 MPV 9.6 fL (9.4-12.4) 07/09/23 09:35 Immature Gran % (Auto) 0.2 % 07/08/23 16:55 Neut % (Auto) 69.5 % 07/08/23 16:55 Lymph % (Auto) 15.0 % 07/08/23 16:55 [place] % (Auto) 8.9 % 07/08/23 16:55 Eos % (Auto) 5.8 % 07/08/23 16:55 Baso % (Auto) 0.6 % 07/08/23 16:55 Neut # (Auto) 7.18 K/uL (1.40-6.50) H 07/08/23 16:55 Lymph # (Auto) 1.55 K/uL (1.20-3.40) 07/08/23 16:55 [place] # (Auto) 0.92 K/uL (0.11-0.59) H 07/08/23 16:55 Eos # (Auto) 0.60 K/uL (0.00-0.50) H 07/08/23 16:55 Baso # (Auto) 0.06 K/uL (0.00-0.20) 07/08/23 16:55 Immature Gran # (Auto) 0.02 K/uL (0.01-0.20) 07/08/23 16:55 Sodium 139 mmol/L (136-145) 07/13/23 05:43 Potassium 3.8 mmol/L (3.5-5.1) 07/13/23 05:43 Chloride 111 mmol/L (98-107) H 07/13/23 05:43 Carbon Dioxide 22 mmol/L (21-32) 07/13/23 05:43 Anion Gap 6 (3-11) 07/13/23 05:43 BUN 8 mg/dl (6-23) 07/13/23 05:43 Creatinine 0.40 mg/dl (0.6-1.4) L 07/13/23 05:43 Est Cr Clr Drug Dosing 263.3 ml/min 07/13/23 05:43 Est GFR ( Amer) > 150.0 ml/min 07/13/23 05:43 Est GFR (Non-Af Amer) 142.4 ml/min 07/13/23 05:43 BUN/Creatinine Ratio 20.0 (10-20) 07/13/23 05:43 Glucose 79 mg/dl (70-99(Fasting)) 07/13/23 05:43 Lactate 1.3 mmol/L (0.4-2.0) 07/08/23 16:55 Calcium 9.0 mg/dl (8.6-10.3) 07/13/23 05:43 Total Bilirubin 0.5 mg/dl (0.2-1.0) 07/08/23 16:55 AST 22 U/L (13-39) 07/08/23 16:55 ALT 9 U/L (7-52) 07/08/23 16:55 Alkaline Phosphatase 148 U/L (34-104) H 07/08/23 16:55 Total Protein 6.4 gm/dl (6.0-8.3) 07/08/23 16:55 Albumin 3.6 gm/dl (3.4-5.0) 07/08/23 16:55 Globulin 2.8 gm/dl (2.5-4.0) 07/08/23 16:55 Albumin/Globulin Ratio 1.3 (0.9-2) 07/08/23 16:55 Lipase 18 U/L (11-82) 07/08/23 16:55 Urine Color Dark Yellow 07/08/23 Unknown Urine Appearance Turbid (Clear) A 07/08/23 Unknown Urine pH 6.5 (4.5-7.5) 07/08/23 Unknown Ur Specific [place] 1.020 (1.000-1.030) 07/08/23 Unknown Urine Protein 2+ (Negative) H 07/08/23 Unknown Urine Glucose (UA) Negative (Negative) 07/08/23 Unknown Urine Ketones Negative (Negative) 07/08/23 Unknown Urine Blood 3+ (Negative) H 07/08/23 Unknown Urine Nitrite Positive (Negative) A 07/08/23 Unknown Urine Bilirubin Negative (Negative) 07/08/23 Unknown Urine Urobilinogen Negative (Negative) 07/08/23 Unknown Ur Leukocyte Esterase 3+ (Negative) H 07/08/23 Unknown Urine WBC (Auto) >30 /hpf (0-5) H 07/08/23 Unknown Urine RBC (Auto) >30 /hpf (0-4) H 07/08/23 Unknown U Hyaline Cast (Auto) 1-5 /lpf (0-5) 07/08/23 Unknown U Epithel Cells (Auto) >30 /lpf (0-5) H 07/08/23 Unknown Urine Bacteria (Auto) 4+ (Negative) H 07/08/23 Unknown Calcium Oxalate Crystal Present (None Prsent) A 07/08/23 Unknown Random Vancomycin 20.8 mcg/ml (10-20) H 07/12/23 05:40 Adenovirus (PCR) Not Detected (NotDetected) 07/08/23 18:30 B. pertussis DNA (PCR) Not Detected (NotDetected) 07/08/23 18:30 B.parapertussis DNA PCR Not Detected (NotDetected) 07/08/23 18:30 C. pneumoniae DNA (PCR) Not Detected (NotDetected) 07/08/23 18:30 Coronavirus OC43 (PCR) Not Detected (NotDetected) 07/08/23 18:30 Coronavirus HKU1 (PCR) Not Detected (NotDetected) 07/08/23 18:30 Coronavirus 229E (PCR) Not Detected (NotDetected) 07/08/23 18:30 SARS-CoV-2 (PCR) Not Detected (NotDetected) 07/08/23 18:30 Coronavirus NL63 (PCR) Not Detected (NotDetected) 07/08/23 18:30 Human Metapneumovir PCR Not Detected (NotDetected) 07/08/23 18:30 Influenza Type A (PCR) Not Detected (NotDetected) 07/08/23 18:30 Influenza Type B (PCR) Not Detected (NotDetected) 07/08/23 18:30 M. pneumoniae (PCR) Not Detected (NotDetected) 07/08/23 18:30 Parainfluenza 1 (PCR) Not Detected (NotDetected) 07/08/23 18:30 Parainfluenza 2 (PCR) Not Detected (NotDetected) 07/08/23 18:30 Parainfluenza 3 (PCR) Not Detected (NotDetected) 07/08/23 18:30 Parainfluenza 4 (PCR) Not Detected (NotDetected) 07/08/23 18:30 RSV (PCR) DETECTED (NotDetected) A* 07/08/23 18:30 Entero/Rhino (PCR) Not Detected (NotDetected) 07/08/23 18:30 Staphylococcus sp PCR DETECTED (NotDetected) A 07/08/23 16:55 mecA/C-Methicil Resis Gene DETECTED (NotDetected) A 07/08/23 16:55 Staph epidermidis (PCR) DETECTED (NotDetected) A 07/08/23 16:55 Bld Cult ID Panel PCR See PCR Comment (NotDetected) 07/08/23 16:55 Impressions Chest X-Ray 07/08/23 16:29 XR chest 1V portable HISTORY: 47 years-old Male SOB, aspiration/PNA acute shortness of breath COMPARISON: 06/23/2023 TECHNIQUE: AP view of the chest FINDINGS: Cardiomediastinal and hilar silhouettes are within normal limits. No pneumothorax, pleural effusion or airspace consolidation. Bones appear grossly intact. Cholecystectomy. Cervical spinal fusion hardware. IMPRESSION: Cardiomegaly without acute process. ACT 112: Negative or not required by law. The above report was generated using voice recognition software. It may contain grammatical, syntax or spelling errors. Electronically signed by: Anil Friedman M.D. 07/08/2023 5:[address] 07/12/23 12:[address] DOSE: HISTORY: headache, r/o cva TECHNIQUE: Multiaxial CT images of the head were performed without the use of intravenous contrast. Automated exposure control was utilized for this study. A dose lowering technique was utilized adhering to the principles of ALARA. Comparison: None. Findings: Partial opacification of the ethmoid air cells with a small fluid level within the right sphenoid sinus. The mastoid air cells are clear. There is an old fracture within the right mandibular condyle with anterior dislocation of the right mandibular condyle and relation to the mandibular fossa. This may be chronic. The calvarium and skull base are intact. The ventricles and sulci are within normal limits. There is no mass, hematoma, midline shift, or acute infarct. Impression: 1. No acute intracranial abnormality. 2. Sinus disease as described above. 3. There is an old fracture within the right mandibular condyle with anterior dislocation of the right mandibular condyle and relation to the mandibular fossa. This may be chronic. ACT 112: Negative or not required by law. Electronically signed by: Zeeshan Mejia M.D. 07/12/2023 1:44 PM Abdomen/Pelvis CT 07/12/23 12:37 CT abd pelvis wo con CLINICAL HISTORY: severe lower abdominal pain TECHNIQUE: Helical axial images of the abdomen and pelvis were obtained. Automated dose lowering techniques and/or adjustment according to patient size were utilized for this exam. This exam was performed without intravenous contrast. CT DOSE: 2252.58 mGy.cm COMPARISON: Comparison is made to CT abdomen pelvis 06/24/2023 FINDINGS: Lower chest: Bibasilar atelectasis versus scarring is seen. Liver: Unremarkable. No focal lesions are seen. Gallbladder and biliary tree: Patient is status post cholecystectomy. No intra- or extrahepatic biliary ductal dilation. Pancreas: Unremarkable, no focal lesions. Spleen: Unremarkable. Adrenals: Unremarkable. Kidneys and ureters: Bilateral hydronephrosis and hydroureter are seen. Nonobstructive stones are seen bilaterally. No ureteral stones. Bladder: Enlarged bladder is seen with a suprapubic catheter. Reproductive organs: Unremarkable. Bowel: Mild thickening of the rectal wall is suggested. Lymph nodes Retroperitoneal: Unremarkable. Pelvic: Unremarkable. Mesenteric: Unremarkable. Peritoneum: Normal. Vessels: Unremarkable. Abdominal wall: A sacral decubitus ulcer is seen, possibly slightly smaller than prior exam. Bones: Degenerative changes in the visualized spine. Redemonstration of sacral erosion secondary to previously noted decubitus ulcer. IMPRESSION: 1. Bilateral hydronephrosis and hydroureter are likely secondary to bladder distention. Markedly distended bladder is seen with a suprapubic catheter in place. 2. Rectal wall thickening which may represent proctitis, clinical correlation is recommended. 3. Nonobstructive nephrolithiasis. 4. Chronic sacral decubitus ulcer and sacral erosions are seen, the ulcer may be slightly smaller than the prior exam. ACT 112: Negative or not required by law. Electronically signed by: Shahid Peter M.D. 07/12/2023 1:33 PM
[2023-07-13] MEDS: BACLOFEN 10 MG TAB PO SCH (21:01)
[2023-07-13] MEDS: APIXABAN 5 MG TABLET PO SCH (21:01)
[2023-07-13] MEDS: MELATONIN 3 MG TAB PO SCH (21:08)
[2023-07-13] MEDS: LIDOCAINE 5% 1 PATCH TD SCH (21:13)
[2023-07-13] MEDS: DOCUSATE SODIUM/SENNA 50/8.6MG TAB PO SCH (21:15)
[2023-07-14] MEDS: oxyCODONE HCL IR 5 MG TAB (IMMEDIATE RELEASE) PO PRN (04:18)
[2023-07-14] MEDS: HYDROmorphone INJ 0.5 MG/0.5 ML SYR IV PRN ×2 (04:19→09:09)
[2023-07-14 06:19] LABS: Anion Gap 7 (3-11); BUN Creatinine Ratio 12.8 (10-20); Blood Urea Nitrogen 6 mg/dl (6-23); Carbon Dioxide 22 mmol/L (21-32); Chloride 109 mmol/L (98-107); Creatinine Clr Calc Pharmacy 221.4 ml/min; Est GFR (African American) > 150.0 ml/min; Est GFR (Non-African American) 133.3 ml/min; Glucose 107 mg/dl (70-99(Fasting)); Potassium 3.7 mmol/L (3.5-5.1); Sodium 138 mmol/L (136-145)
[2023-07-14] MEDS: ALBUT/IPRATROP 3MG/0.5MG NEB 3 ML VIAL NEB SCH (07:05)
[2023-07-14] MEDS: UMECLIDINIUM/VILANTEROL 62.5/25MCG 7 PUFFS/INHALER INH SCH (08:57)
[2023-07-14] MEDS: FLUTICASONE FUROATE 100MCG 14 PUFFS/INHALER INH SCH (08:57)
[2023-07-14] MEDS: hydrOXYzine HCl 25 MG TAB PO SCH (08:58)
[2023-07-14] MEDS: APIXABAN 5 MG TABLET PO SCH (08:58)
[2023-07-14] MEDS: DULoxetine HCL 60 MG CAP PO SCH (08:58)
[2023-07-14] MEDS: guaiFENesin 600 MG TABCR PO SCH (08:58)
[2023-07-14] MEDS: OXYBUTYNIN CHLORIDE XL 5 MG TABCR PO SCH (08:59)
[2023-07-14] MEDS: PANTOprazole 40 MG TAB PO SCH (08:59)
[2023-07-14] MEDS: CeleBREX 200 MG CAP PO SCH (08:59)
[2023-07-14] MEDS: GABAPENTIN 400 MG CAP PO SCH (08:59)
[2023-07-14] MEDS: ADVANCED PROBIOTIC 1250 MG CAPSULE PO SCH (09:00)
[2023-07-14] MEDS: BACLOFEN 20 MG TAB PO SCH (09:00)
[2023-07-14] MEDS: FAMOTIDINE 20 MG TAB PO SCH (09:02)
[2023-07-14] MEDS: VIBEGRON 75 MG TAB PO SCH (09:02)
[2023-07-14] MEDS: ASCORBIC ACID 500 MG TAB PO SCH (09:02)
[2023-07-14] MEDS: FERROUS SULFATE 325 MG TAB PO SCH (09:02)
[2023-07-14] MEDS: SUCRALFATE 1 GM/10 ML UDC PO SCH (09:24)
[2023-07-14] MEDS: LACTULOSE SYRUP 20 GM/30 ML UDC PO SCH (09:24)
[2023-07-14] MEDS: DICLOFENAC SOD 1% GEL 100 GM TUBE EXT SCH (09:25)
[2023-07-14] MEDS: bisacodyL 10 MG SUPP PR SCH (09:25)
[2023-07-14] MEDS: POTASSIUM CHLORIDE CRTAB 20 MEQ TABCR PO SCH (09:25)
[2023-07-14] MEDS: POLYETHYLENE (MIRALAX) 17 GM PACK PO SCH (09:25)
[2023-07-14] MEDS: NICOTINE 21 MG/24 HR TDSY TD SCH (09:25)
--- NOTE | 2023-07-14 12:56 | Discharge Summary ---
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 Reports a burning around his suprapubic catheter and cloudy appearing urine. Patient reports he also developed chest congestion and wheezing a couple days ago. Reports associated shortness of breath. Has difficulty producing a cough due to quadriplegia. No chest pain. Denies lightheadedness and dizziness. No abdominal pain, nausea, vomiting, diarrhea. In the ED, patient was mildly hypoxic on room air at 89%, currently requiring 3 L of oxygen via nasal cannula. He is afebrile and hemodynamically stable. UA suggest UTI. Patient tested positive for RSV. He was given IV azithromycin, IV ceftriaxone, IV ketorolac, IVF. Admission Exam Per Admitting Provider General Appearance:Moderately built and nourished, no apparent distress Head: normocephalic, Atraumatic Eyes: normal inspection, EOMI Neck: supple, Trachea midline Respiratory/Chest: Decreased coarse breath sounds, scattered rhonchi, No accessory muscle use Cardiovascular: S1, S2, No murmur Abdomen/GI:Soft, Non tender, Bowel sounds present,+ suprapubic catheter Back/Sacral region: Unable to examine given paraplegia Extremities/Musculoskeletal:normal inspection, Trace pedal edema Neurologic/Psych:AAOX3, + paraplegia, minimally able to move bilateral upper extremities Skin: normal color, warm,+ multiple tattoos Principal Diagnosis RSV infection Acute urinary retention due to suprapubic catheter blockage Discharge Exam General- oriented x 3, not in distress, speaks in sentences with no effort or accessory muscle use Eyes- anicteric Neck- no JVD Lungs- clear breath sounds bilaterally, no crackles or wheezing Heart- normal rate, regular rhythm; no murmurs Abdomen- normal bowel sounds, mildly distended, soft, moderate lower abdominal tenderness Extremities- no pretibial edema, no calf tenderness Neuro- alert, oriented x 3; no new gross focal neurologic deficits Skin- warm & dry Discharge Data Allergies Allergy/AdvReac Type Severity Reaction Status Date / Time No Known Allergies Allergy Verified 06/24/23 00:19 Consultations 07/08/23 18:26 ED Decision to Admit Stat 07/08/23 19:12 Consult Urology Routine 07/10/23 09:03 Consult Infectious Diseases Routine Ordered Studies 07/12/23 12:25 CT head/brain wo con Stat 07/12/23 12:37 CT Abd and Pelvis [CT abd pelvis wo con] Stat Hospital Course (1) Hypoxia: (2) RSV (respiratory syncytial virus infection): Patient presenting from home with reports of burning around suprapubic catheter and chest congestion. In the ED hypoxic on room air at 89%, currently requiring 3 L of oxygen via nasal cannula Bio fire + RSV No infiltrate noted on CXR blood culture: 08/09 coag negative staph not lugdunensis Repeat blood cultures: Negative Placed on vancomycin, and cefepime IV continue Nebs Patient is improving ID consulted-recommend to DC all antibiotics for now and provide supportive care Patient was in room air at discharge. (3) Complicated UTI (urinary tract infection): (4) Suprapubic catheter: History of neurogenic bladder with suprapubic catheter and recurrent UTIs Previous cultures reviewed, history of various resistant organisms On 07/12; patient had severe lower abdominal pain. CT abdomen pelvis showed severely dilated bladder with hydronephrosis from Found to have suprapubic catheter blockage. Status post exchange of suprapubic catheter today (July 13, 2023) by urology. Patient asked to follow-up with urology at discharge (5) Paraplegia: (6) Chronic pain: Please note the above document was generated using voice recognition software. It may contain grammatical, syntax or spelling errors. Any formal questions or concerns about the content, text or information contained within the body of this dictation should be directly addressed to the provider for clarification Total Time Total Time Spent Total Time Spent (In Minutes): 45 Discharge Plan Discharge Items Patient Disposition: Home - Self-Care Reason For Visit: UTI, URI Discharge Diagnosis: RSV infection Acute urinary retention secondary to suprapubic catheter blockage Activity: Resume your previous activity Non-emergency contact: Primary Care Provider Call non-emergency contact if: you have any medication questions Follow-up/Referrals: Troy Howard MD [Outside Practitioners] - (Date & Time 07/15/2023 2:45 PM Provider Troy Howard MD Department [facility] Jaspal Hummel CRNP [Outside Practitioners] - (Date & Time 07/19/2023 3:20 PM Provider Jaspal Hummel CRNP Department Family [facility] ) Diet: Regular Addtl Attending Provider Instructions: You were admitted to the hospital with RSV infection. It is a viral infection. There is a vaccine available for RSV; please discuss with your PCP. Suprapubic catheter exchanged on July 13, 2023. Please have it exchanged every 4 weeks. It should be exchanged on August 09, 2023. An appointment will be set up with your PCP. Pending Studies at Discharge: No Stand-Alone Forms: My [facility], Smoking Cessation Medications and DC Order Prescriptions: New midodrine 2.5 mg tablet 2.5 mg PO TID PRN (Reason: hypotension) Qty: 30 0RF Rx Instructions: do not give last dose of day after 6PM or within 4 hrs of bedtime Continued Unknown "Water" Pill 1 dose PO QAM Rx Instructions: PT UNSURE OF NAME OR STRENGTH OF MED, UNABLE TO VERIFY. sucralfate 100 mg/mL Suspension 1 g PO ACHS Qty: 400 0RF gabapentin 400 mg Capsule 400 mg PO TID@0900,1200,2100 Qty: 90 0RF famotidine 20 mg Tablet 20 mg PO AMHS ascorbic acid (vitamin C) [Vitamin C] 500 mg Tablet 500 mg PO QAM duloxetine 60 mg Capsule,Delayed Release(Dr/Ec) 60 mg PO QAM melatonin 3 mg Tablet 3 mg PO HS pantoprazole 40 mg Tablet,Delayed Release (Dr/Ec) 40 mg PO QAM ferrous sulfate 325 mg (65 mg iron) Tablet 325 mg PO QDB solifenacin 10 mg Tablet 10 mg PO QAM Myrbetriq 50 mg Tablet Extended Release 24 Hr 50 mg PO QAM celecoxib 200 mg Capsule 200 mg PO AMHS trazodone 50 mg Tablet 50 mg PO HS fluticasone propionate 100 mcg/actuation Blister With Device 1 inh INHALATION AMHS lidocaine 5 % Adhesive Patch,Medicated 1 patch TOPICAL DAILY Rx Instructions: leave on most painful area for up to 12 hrs lidocaine HCl [Lidocaine Viscous] 2 % Solution 5 ml PO ACHS PRN (Reason: as directed) Rx Instructions: swish and spit Santyl 250 unit/gram Ointment 1 applic TOPICAL DAILY Rx Instructions: apply to foot ulceractions and cover w/ dry bandage diclofenac sodium 1 % Gel 2 g TOPICAL QID Anoro Ellipta 62.5-25 mcg/actuation Blister With Device 1 inh INHALATION QAM apixaban 5 mg Tablet 5 mg PO AMHS polyethylene glycol 3350 [Miralax] 17 gram Powder In Packet 17 g PO AMHS Rx Instructions: mix in any 4-8 ounce beverage hold for loose stools oxybutynin chloride 10 mg Tablet Extended Release 24hr 10 mg PO QAM sennosides-docusate sodium 8.6-50 mg Tablet 2 tab-cap PO HS Rx Instructions: hold for loose stools potassium chloride 20 mEq Tablet,Er Particles/Crystals 20 meq PO AMHS acetaminophen 500 mg Tablet 500 mg PO .Q 4 HRS WHILE AWAKE Rx Instructions: use while awake bisacodyl 10 mg Suppository 10 mg ME AMPM Rx Instructions: PER PT "MUST HAVE 'RED' ONES, NOT 'GREEN' ONES". hold for loose stools hydroxyzine HCl 25 mg Tablet 25 mg PO QAM lactulose 20 gram/30 mL Solution 20 g PO TID Rx Instructions: 30 ml morning,noon and before bedtime Naloxone Hcl 4 Mg/0.1ml Liquid See Rx Instructions .ROUTE .COMPLEX PRN (Reason: Opioid Overdose) Rx Instructions: administer 1 spray into 1 nostril for suspected opioid overdose. seek immediate medical attention albuterol sulfate 2.5 mg /3 mL (0.083 %) solution for nebulization 1.25 mg inhalation Q8H PRN (Reason: bronchospasm) Qty: 90 0RF Adult Multivitamin Gummies 200 mcg Tablet,Chewable 1 tab PO DAILY baclofen 10 mg Tablet 10 mg PO UD Qty: 20 0RF Rx Instructions: TAKES 20 MG QAM & NOON, THEN 30 MG QHS. oxycodone 5 mg tablet 5 mg PO Q6H PRN (Reason: moderate to severe pain) Qty: 12 0RF Discharge Orders: Discharge Order (Routine); Ordered 07/14/23 Ordered By: Mukund Ibarra Admission Data Admit Date/Time: 07/08/23 18:56 Attending Provider: Mukund Ibarra Admit Provider: Jama Vela Primary Care Provider: Zunilda Rosa Other Providers: Jama Vela; Isauro Zapata; Omero Rubio; Chencho Miles I.; Bishnu Kilgore II; Abril Olivas; Rafael Romero; Alexander Hill; Catalina Blanton; Mike Chaidez Other Interventions: Discharge Summary Assessment (RN) Last Done: 07/14/23 10:19
== END 2023-07-14 11:52 | disposition home or self-care (01) | DRG 698 ==
LOC: ED 16:05 → 3N 18:56 → SUATTDRO 18:56 → 3N 21:38 → 2S 07-12 16:44

== ENCOUNTER 2024-01-29 14:57 | Inpatient (IN) ==
--- NOTE | 2024-01-29 15:14 | Emergency Department Note ---
Impression & Plan Abdominal pain, Pneumonia, Chest pain, Acute hypoxemic respiratory failure ED Provider Note HISTORY OF PRESENT ILLNESS: Patient is a 48-year-old male presenting with abdominal spasms. Patient reports that earlier this morning he started having pain in his generalized abdomen. He states that he thought he was constipated and tried to give himself an enema but the symptoms persisted. He is paralyzed from the neck down. He denies any chest pain or shortness of breath on my assessment. Denies any nausea or vomiting. He did reportedly tell EMS that he had chest pain and route. Patient denies any fevers. He denies any dysuria or hematuria. He denies any recent changes in medication. Denies any recent sick contact exposures. ROS: as above PHYSICAL EXAM: Constitutional: Patient appears in no acute distress. HENT: Head: Normocephalic and atraumatic. Eyes: EOMI, PERRL Mouth/Throat: Mucous membranes moist. Neck: Trachea midline. Neck supple. Cardiovascular: RRR, No murmurs, rubs or gallops. Intact distal pulses. Pulmonary/Chest: No respiratory distress. Breath sounds clear and equal bilaterally. No wheezes or rales. Abdominal: Abdomen soft, no tenderness, rebound or guarding. Suprapubic catheter in place. Musculoskeletal: No edema, tenderness or deformity noted. Skin: Warm and dry. No rash, erythema, pallor or cyanosis Psychiatric: Appropriate mood and affect for situation. Neurological: Alert and keenly responsive. CN II-XII grossly intact MDM: - Vitals signs showed hypertension and tachypnea - History obtained via patient. History as above. - Chronic conditions affecting care: paraplegia; chronic osteomyelitis of sacrum; complicated UTI; CHF; PE (on Eliquis) - Differential diagnoses include, but are not limited to: UTI; pneumonia; viral syndrome; constipation; bowel obstruction - Order placed for continuous cardiac monitoring. At this time, monitor showed rate of 76 bpm with normal sinus rhythm, per my interpretation. - External medical records reviewed. Discharge summary dated 10/04/2023 was reviewed. Patient was admitted at that time for severe sepsis secondary to a complicated UTI. - EKG interpreted by myself showed normal sinus rhythm. Rate 78 bpm. QT 396. No acute ischemic changes. - Laboratory workup interpreted by myself showed normal WBC with left shift; normal PT/INR; stable electrolytes; normal AST/ALT; normal lipase; normal troponin - Patient initially given 1g IV tylenol for pain control. - CXR negative for pneumonia, per my interpretation - UA negative for infection - CT abdomen/pelvis with IV contrast showed nonspecific proctocolitis. Noted to have fluid/debris within the right lower lobe concerning for aspiration. - On coming back from CT scan, patient noted to have significant shortness of breath and was hypoxic and placed on 2 L nasal cannula. IV Zosyn was ordered for antibiotic coverage. Given albuterol treatment. - On reassessment, patient is complaining of significant pain. Given 0.5 mg IV Dilaudid. - Discussion was had with telehealth case manager about patient's case and need for admission - Hospitalist consulted for admission - [facility] ASSESSMENT AND PLAN: Diagnosis: pneumonia; abdominal pain; acute hypoxic respiratory failure; chest pain Plan: admit Past Med/Surg History Problem List (Updated 01/29/24 @ 19:42 by Irene Lopez MD) Acute hypoxemic respiratory failure (Acute) Chest pain (Acute) Pneumonia (Acute) Abdominal pain (Acute) Severe sepsis (Acute) MRSA carrier Pneumonia (Acute) Hypoxic respiratory failure (Acute) 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 Leg wound, right Leg wound, left History of pulmonary embolism Hypoxia (Acute) RSV (respiratory syncytial virus infection) Chronic pain Suprapubic catheter (Acute) Complicated UTI (urinary tract infection) (Acute) Sacral decubitus ulcer, stage IV (Acute) Chronic osteomyelitis of sacrum Paraplegia Medical History History of pulmonary embolism Chronic pain Suprapubic catheter Paraplegia Chronic osteomyelitis of sacrum Sacral decubitus ulcer, stage IV Surgical History No pertinent past surgical history Social History Smoking Status: Former smoker Tobacco Type: Cigarettes Cigarettes Per Day: 50-60; Second Hand Exposure: Yes; Do You Dip or Chew Tobacco: No; Hx Alcohol Use: Yes Alcohol type: beer Hx Substance Use: No Preferred Language: Austrian Communication Ability: Effective Adult Live In Caregiver Required: No Beliefs That Will Affect Care: None Current Living Situation: Family Current Living Situation Comment: alone with 24/7 home care Feels Safe at Home: Yes Assistive Devices: Other Allergies Allergies Allergy/AdvReac Type Severity Reaction Status Date / Time No Known Allergies Allergy Verified 09/28/23 18:06 Home Meds Home Medications Medication Instructions Recorded Confirmed acetaminophen 500 mg tablet 500 mg PO .Q 4 HRS WHILE AWAKE 05/15/23 09/28/23 apixaban 5 mg tablet 5 mg PO AMHS 05/15/23 09/28/23 ascorbic acid (vitamin C) 500 mg 500 mg PO QAM 05/15/23 09/28/23 tablet (Vitamin C) bisacodyl 10 mg rectal suppository 10 mg MN AMPM 05/15/23 09/28/23 celecoxib 200 mg capsule 200 mg PO AMHS 05/15/23 09/28/23 collagenase clostridium histo. 250 1 applic topical DAILY 05/15/23 09/28/23 unit/gram topical ointment (Santyl) diclofenac sodium 1 % topical gel 2 g topical QID 05/15/23 09/28/23 duloxetine 60 mg capsule,delayed 60 mg PO QAM 05/15/23 09/28/23 release famotidine 20 mg tablet 20 mg PO AMHS 05/15/23 09/28/23 ferrous sulfate 325 mg (65 mg 325 mg PO QDB 05/15/23 09/28/23 iron) tablet fluticasone propionate 100 1 inh inhalation AMHS 05/15/23 09/28/23 mcg/actuation blister powder for inhalation hydroxyzine HCl 25 mg tablet 25 mg PO QAM 05/15/23 09/28/23 lactulose 20 gram/30 mL oral 20 g PO TID 05/15/23 09/28/23 solution lidocaine 5 % topical patch 1 patch topical DAILY 05/15/23 09/28/23 lidocaine HCl 2 % mucosal solution 5 ml PO ACHS PRN as directed 05/15/23 09/28/23 (Lidocaine Viscous) melatonin 3 mg tablet 3 mg PO HS 05/15/23 09/28/23 mirabegron 50 mg tablet,extended 50 mg PO QAM 05/15/23 09/28/23 release 24 hr (Myrbetriq) oxybutynin chloride 10 mg 10 mg PO QAM 05/15/23 09/28/23 tablet,extended release 24 hr pantoprazole 40 mg tablet,delayed 40 mg PO QAM 05/15/23 09/28/23 release polyethylene glycol 3350 17 gram 17 g PO AMHS 05/15/23 09/28/23 oral powder packet (Miralax) potassium chloride 20 mEq 20 meq PO AMHS 05/15/23 09/28/23 tablet,extended release(part/cryst) sennosides 8.6 mg-docusate sodium 2 tab-cap PO HS 05/15/23 09/28/23 50 mg tablet solifenacin 10 mg tablet 10 mg PO QAM 05/15/23 09/28/23 trazodone 50 mg tablet 50 mg PO HS 05/15/23 09/28/23 umeclidinium 62.5 mcg-vilanterol 1 inh inhalation QAM 05/15/23 09/28/23 25 mcg/actuation powdr for inhalation (Anoro Ellipta) multivitamin with minerals-folic 1 tab PO DAILY 06/24/23 09/28/23 acid 200 mcg chewable tablet (Adult Multivitamin Gummies) furosemide 20 mg tablet (Lasix) 0 mg PO DIRECTED 09/28/23 09/28/23 naloxone 4 mg/actuation nasal spray 4 mg intranasal DIRECTED PRN 09/28/23 09/28/23 OVERDOSE NEEDED Previous Rx's Medication Instructions Recorded albuterol sulfate 2.5 mg/3 mL 1.25 mg (1.5 mL) inhalation Q8H 05/19/23 (0.083 %) solution for nebulization PRN bronchospasm #90 mL gabapentin 400 mg capsule 400 mg PO TID@0900,1200,2100 #90 06/21/23 caps sucralfate 100 mg/mL oral 1 g (10 mL) PO ACHS #400 mL 06/21/23 suspension baclofen 10 mg tablet 10 mg PO UD #20 tabs 06/25/23 oxycodone 5 mg tablet 5 mg PO Q6H PRN moderate to severe 06/25/23 pain #12 tabs amoxicillin 875 mg-potassium 1 tab PO BID #7 tabs 10/04/23 clavulanate 125 mg tablet sulfamethoxazole 800 1 tab PO BID #7 tabs 10/04/23 mg-trimethoprim 160 mg tablet (Bactrim DS) Results & Data (ED) Vital Signs Vital Signs - 24 hr 01/29/24 15:00 01/29/24 16:20 01/29/24 16:30 Temperature 36.5 C Temperature Source Oral Pulse Rate 78 65 Pulse Rate [Left Finger] 47 L Pulse Rhythm Regular Pulse Strength Normal Respiratory Rate 26 H 20 Respiratory Effort / Characteristics Non-Labored Spontaneous Respiratory Depth Normal Respiratory Pattern Regular Blood Pressure 153/105 H Blood Pressure [Left Arm] 127/90 Blood Pressure Mean 121 Blood Pressure Mean [Left Arm] 102 Blood Pressure Position Sitting Blood Pressure Position [Left Arm] Lying Pulse Oximetry 94 98 Oxygen Delivery Method Room Air Oxygen Flow Rate Sepsis Recent Fever Within 48 Hours No Sepsis New/Unexplained Change in Mental Status No Sepsis Action Taken by Nursing No Action Required 01/29/24 18:00 Temperature Temperature Source Pulse Rate Pulse Rate [Left Finger] 76 Pulse Rhythm Pulse Strength Respiratory Rate 20 Respiratory Effort / Characteristics Respiratory Depth Respiratory Pattern Blood Pressure Blood Pressure [Left Arm] 142/105 H Blood Pressure Mean Blood Pressure Mean [Left Arm] 117 Blood Pressure Position Blood Pressure Position [Left Arm] Lying Pulse Oximetry 96 Oxygen Delivery Method Nasal Cannula Oxygen Flow Rate 2 Sepsis Recent Fever Within 48 Hours Sepsis New/Unexplained Change in Mental Status Sepsis Action Taken by Nursing Laboratory Data 01/29/24 15:42 01/29/24 15:42 Lab Results 01/29/24 01/29/24 Range/Units 15:42 16:20 WBC 9.56 (4.8-10.8) K/ul RBC 5.10 (4.70-6.10) M/uL Hgb 13.7 L (14.0-18.0) g/dl Hct 43.3 (42.0-52.0) % MCV 84.9 (80.0-100.0) fL MCH 26.9 (25.0-34.0) pg MCHC 31.6 L (32.0-36.0) g/dL RDW Std Deviation 48.6 H (36.4-46.3) fL RDW Coeff of Adelia 15.8 H (11.5-14.5) % Plt Count 269 (130-400) K/uL MPV 9.7 (9.4-12.4) fL Immature Gran % (Auto) 0.4 % Neut % (Auto) 76.7 % Lymph % (Auto) 13.9 % [place] % (Auto) 6.2 % Eos % (Auto) 2.0 % Baso % (Auto) 0.8 % Neut # (Auto) 7.33 H (1.40-6.50) K/uL Lymph # (Auto) 1.33 (1.20-3.40) K/uL [place] # (Auto) 0.59 (0.11-0.59) K/uL Eos # (Auto) 0.19 (0.00-0.50) K/uL Baso # (Auto) 0.08 (0.00-0.20) K/uL Immature Gran # (Auto) 0.04 (0.01-0.20) K/uL PT 10.3 (9.0-12.0) Seconds INR 0.9 (0.9-1.1) Sodium 136 (136-145) mmol/L Potassium 3.7 (3.5-5.1) mmol/L Chloride 105 (98-107) mmol/L Carbon Dioxide 24 (21-32) mmol/L Anion Gap 7 (3-11) BUN 11 (6-23) mg/dl Creatinine 0.42 L (0.6-1.4) mg/dl Est Cr Clr Drug Dosing 218.3 ml/min Est GFR ( Amer) > 150.0 ml/min Est GFR (Non-Af Amer) 138.6 ml/min BUN/Creatinine Ratio 26.2 H (10-20) Glucose 109 H (70-99(Fasting)) mg/dl Lactate 1.6 (0.4-2.0) mmol/L Calcium 9.2 (8.6-10.3) mg/dl Total Bilirubin 0.4 (0.2-1.0) mg/dl AST 16 (13-39) U/L ALT 8 (7-52) U/L Alkaline Phosphatase 124 H (34-104) U/L Troponin I High Sens 4.8 (0-20) pg/ml Total Protein 6.7 (6.0-8.3) gm/dl Albumin 3.9 (3.4-5.0) gm/dl Globulin 2.8 (2.5-4.0) gm/dl Albumin/Globulin Ratio 1.4 (0.9-2) Lipase 18 (11-82) U/L Urine Color Yellow Urine Appearance Turbid A (Clear) Urine pH 6.5 (4.5-7.5) Ur Specific [place] 1.019 (1.000-1.030) Urine Protein 2+ H (Negative) Urine Glucose (UA) Negative (Negative) Urine Ketones Negative (Negative) Urine Blood 3+ H (Negative) Urine Nitrite Negative (Negative) Urine Bilirubin Negative (Negative) Urine Urobilinogen Negative (Negative) Ur Leukocyte Esterase 3+ H (Negative) Urine WBC (Auto) >50 H (0-5) /hpf Urine RBC (Auto) >20 H (0-2) /hpf U Hyaline Cast (Auto) 3-5 H (0-2) /lpf U Epithel Cells (Auto) 0-2 (0-2) /hpf Urine Bacteria (Auto) None Seen (None Seen) Urine Yeast Present A (None Prsent) Administered Medications Discontinued Medications Albuterol (Albut/Ipratrop 3mg/0.5mg Neb 3 Ml Vial) 3 ml NEB NOW STA; Protocol Stop: 01/29/24 19:21 Last Admin: 01/29/24 19:29 Dose: 3 ml Documented By: DAQUAN Hydromorphone HCl (Hydromorphone Inj 0.5 Mg/0.5 Ml Syr) 0.5 mg IV NOW STA Stop: 01/29/24 19:08 Last Admin: 01/29/24 19:29 Dose: 0.5 mg Documented By: DAQUAN Piperacillin Sod/Tazobactam Sod (Zosyn) 4.5 gm in 100 mls @ 200 mls/hr IV NOW ONE Stop: 01/29/24 18:54 Last Infusion: 01/29/24 19:05 Dose: Infused Documented By: Admin: 01/29/24 18:15 Dose: 200 mls/hr Documented By: HOWIE Acetaminophen (Ofirmev) 1,000 mg in 100 mls @ 400 mls/hr IV NOW STA Stop: 01/29/24 18:39 Last Infusion: 01/29/24 19:05 Dose: Infused Documented By: Admin: 01/29/24 18:00 Dose: 400 mls/hr Documented By: HOWIE Ioversol (Optiray 320 100ml) 90 ml IV ONCE ONE Stop: 01/29/24 16:36 Last Admin: 06/23/24 16:36 Dose: 90 ml Documented By: [facility] Imaging Data Radiologist's Impression: Abdomen/Pelvis CT 01/29/24 15:13 CT SCAN OF THE ABDOMEN AND PELVIS WITH IV CONTRAST CLINICAL HISTORY: Generalized abdominal pain. COMPARISON STUDY: Abdominal CT dated 09/28/2023. TECHNIQUE: Following the IV administration of 90 cc of Optiray 320, CT scan of the abdomen and pelvis is performed from the lung bases to the proximal femora. Images are reviewed in the axial, sagittal, and coronal planes. IV contrast was administered without complication. A dose lowering technique was utilized adhering to the principles of ALARA. The examination is degraded by streak artifact from the arms which could not be elevated above the abdomen. CT DOSE: 1916.79 mGy.cm FINDINGS: Lung bases: The heart is normal in size and without pericardial effusion. There is fluid/debris in the right lower lobe airways. Dependent consolidation is noted at both lung bases. No pleural effusion is identified. Liver: The contrast-enhanced liver is normal in size, contour, and attenuation. There is mild intrahepatic biliary ductal dilatation. The hepatic veins and portal veins are patent. Gallbladder: Surgically absent noting clips in the gallbladder fossa. Spleen: Normal in size and attenuation. Pancreas: Moderately atrophic and grossly unremarkable. Adrenal glands: Unremarkable. Kidneys: The contrast enhanced kidneys are normal in size and without hydronephrosis. There is a millimeter calculus in the left renal pelvis. Additional nonobstructing left renal calculi measuring up to 13 mm. No ureteral stone is seen. There are punctate nonobstructing calculi seen on the right. The kidneys enhance symmetrically. Abdominal vasculature: The abdominal aorta is normal in course and caliber noting scattered foci of atherosclerotic calcification. Bowel: The rectal wall is thickened and edematous with mucosal hyperemia. There is only mild surrounding alteration. No bowel obstruction is seen. Moderate fecal retention is noted throughout the remainder of the colon. The appendix is not identified and reported surgically absent. Peritoneum: There is no intraperitoneal free air or abdominal ascites. There is a small fat-containing umbilical hernia. Lymphadenopathy: None. Pelvic viscera: The bladder is decompressed and a suprapubic catheter and appears markedly thick walled. There are small bilateral fat containing right hernias. The prostate gland is diminutive and heterogeneous. Skeletal structures: The skeletal structures are osteopenic. The distal sacrum and coccyx are surgically absent. There is an overlying wound, with surrounding soft tissue thickening and possible packing material. Sclerotic change within the adjacent sacrum likely represents chronic osteomyelitis. No lytic or blastic lesions are seen. Postoperative changes noted in the forearm/wrist bilaterally. IMPRESSION: 1. Findings are consistent with a nonspecific proctitis. There is moderate fecal retention throughout the proximal colon and this may be on a stercoral basis. Correlate clinically. 2. There is fluid/debris within the right lower lobe airways. Correlate clinically for evidence of aspiration. Dependent airspace opacities could represent atelectasis versus pneumonia/aspiration pneumonitis, and again clinical correlation will be required. 3. Postsurgical change is seen in the sacrum and coccyx with an overlying wound and surrounding soft tissue thickening. There may be packing material in place. Sclerotic change in the adjacent sacrum site likely represents chronic osteomyelitis. Correlate clinically. 4. Left-sided nephrolithiasis. 5. Additional findings as above. ACT 112: Negative or not required by law. Electronically signed by: Ramo Green M.D. 01/29/2024 5:50 PM Chest X-Ray 01/29/24 16:47 SINGLE VIEW CHEST CLINICAL HISTORY: Dyspnea FINDINGS: An AP, portable, upright chest radiograph is compared to study dated 09/28/2023. The cardiac silhouette is enlarged. The pulmonary vasculature is noncongested. Chronic interstitial thickening is similar to previous. There is bibasilar scarring/atelectasis. The lungs and pleural spaces are otherwise clear. No pneumothorax is seen. The bony thorax is grossly intact. Fusion hardware is seen in the lower cervical spine. IMPRESSION: No active disease in the chest. ACT 112: Negative or not required by law. Electronically signed by: Ramo Green M.D. 01/29/2024 7:15 PM Discharge Plan Visit Data Chief Complaint: Illness Stated Complaint: SPASMS, ILLNESS ED Provider: Irene Lopez Discharge Problem: Abdominal pain, Pneumonia, Chest pain, Acute hypoxemic respiratory failure Forms Stand Alone Forms: [employer] Prescriptions Prescriptions: No Action sucralfate 100 mg/mL Suspension 1 g PO ACHS Qty: 400 0RF gabapentin 400 mg Capsule 400 mg PO TID@0900,1200,2100 Qty: 90 0RF famotidine 20 mg Tablet 20 mg PO AMHS ascorbic acid (vitamin C) [Vitamin C] 500 mg Tablet 500 mg PO QAM duloxetine 60 mg Capsule,Delayed Release(Dr/Ec) 60 mg PO QAM melatonin 3 mg Tablet 3 mg PO HS pantoprazole 40 mg Tablet,Delayed Release (Dr/Ec) 40 mg PO QAM ferrous sulfate 325 mg (65 mg iron) Tablet 325 mg PO QDB solifenacin 10 mg Tablet 10 mg PO QAM Myrbetriq 50 mg Tablet Extended Release 24 Hr 50 mg PO QAM celecoxib 200 mg Capsule 200 mg PO AMHS trazodone 50 mg Tablet 50 mg PO HS fluticasone propionate 100 mcg/actuation Blister With Device 1 inh INHALATION AMHS lidocaine 5 % Adhesive Patch,Medicated 1 patch TOPICAL DAILY Rx Instructions: leave on most painful area for up to 12 hrs lidocaine HCl [Lidocaine Viscous] 2 % Solution 5 ml PO ACHS PRN (Reason: as directed) Rx Instructions: swish and spit Santyl 250 unit/gram Ointment 1 applic TOPICAL DAILY Rx Instructions: apply to foot ulceractions and cover w/ dry bandage diclofenac sodium 1 % Gel 2 g TOPICAL QID Anoro Ellipta 62.5-25 mcg/actuation Blister With Device 1 inh INHALATION QAM apixaban 5 mg Tablet 5 mg PO AMHS polyethylene glycol 3350 [Miralax] 17 gram Powder In Packet 17 g PO AMHS Rx Instructions: mix in any 4-8 ounce beverage hold for loose stools oxybutynin chloride 10 mg Tablet Extended Release 24hr 10 mg PO QAM sennosides-docusate sodium 8.6-50 mg Tablet 2 tab-cap PO HS Rx Instructions: hold for loose stools potassium chloride 20 mEq Tablet,Er Particles/Crystals 20 meq PO AMHS acetaminophen 500 mg Tablet 500 mg PO .Q 4 HRS WHILE AWAKE Rx Instructions: use while awake bisacodyl 10 mg Suppository 10 mg MN AMPM Rx Instructions: PER PT "MUST HAVE 'RED' ONES, NOT 'GREEN' ONES". hold for loose stools hydroxyzine HCl 25 mg Tablet 25 mg PO QAM lactulose 20 gram/30 mL Solution 20 g PO TID Rx Instructions: 30 ml morning,noon and before bedtime albuterol sulfate 2.5 mg /3 mL (0.083 %) solution for nebulization 1.25 mg inhalation Q8H PRN (Reason: bronchospasm) Qty: 90 0RF multivit with min-folic acid [Adult Multivitamin Gummies] 200 mcg Tablet,Chewable 1 tab PO DAILY baclofen 10 mg Tablet 10 mg PO UD Qty: 20 0RF Rx Instructions: TAKES 20 MG QAM & NOON, THEN 30 MG QHS. oxycodone 5 mg tablet 5 mg PO Q6H PRN (Reason: moderate to severe pain) Qty: 12 0RF furosemide [Lasix] 20 mg Tablet 0 mg PO DIRECTED Rx Instructions: CAREGIVER UNSURE OF STRENGTH OR DOSAGE. naloxone 4 mg/actuation Roberta,Non-Aerosol 4 mg INTRANASAL DIRECTED PRN (Reason: OVERDOSE NEEDED) amoxicillin-pot clavulanate 875-125 mg tablet 1 tab PO BID Qty: 7 0RF sulfamethoxazole-trimethoprim [Bactrim DS] 800-160 mg tablet 1 tab PO BID Qty: 7 0RF Referrals Referrals: Zunilda Rosa RN [Registered Nurse] -
[2024-01-29 15:57] LABS: Basophils # (auto) 0.08 K/uL (0.00-0.20); Basophils % (auto) 0.8 %; Eosinophils # (auto) 0.19 K/uL (0.00-0.50); Hematocrit (blood only) 43.3 % (42.0-52.0); Hemoglobin 13.7 g/dl (14.0-18.0); Immature Granulocytes # (auto) 0.04 K/uL (0.01-0.20); Immature Granulocytes % (auto) 0.4 %; Lymphocytes # (auto) 1.33 K/uL (1.20-3.40); Lymphocytes % (auto) 13.9 %; Mean Corpuscular Hemoglobin 26.9 pg (25.0-34.0); Mean Corpuscular Hgb Conc 31.6 g/dL (32.0-36.0); Mean Corpuscular Volume 84.9 fL (80.0-100.0); Mean Platelet Volume 9.7 fL (9.4-12.4); Monocytes # (auto) 0.59 K/uL (0.11-0.59); Monocytes % (auto) 6.2 %; Neutrophils # (auto) 7.33 K/uL (1.40-6.50); Neutrophils % (auto) 76.7 %; Platelet Count 269 K/uL (130-400); RDW Coefficient of Variation 15.8 % (11.5-14.5); RDW Standard Deviation 48.6 fL (36.4-46.3); White Blood Count 9.56 K/ul (4.8-10.8)
[2024-01-29 16:14] LABS: Alanine Aminotransferase 8 U/L (7-52); Albumin Globulin Ratio 1.4 (0.9-2); Albumin Level 3.9 gm/dl (3.4-5.0); Alkaline Phosphatase 124 U/L (34-104); Anion Gap 7 (3-11); Aspartate Aminotransferase 16 U/L (13-39); BUN Creatinine Ratio 26.2 (10-20); Bilirubin,Total 0.4 mg/dl (0.2-1.0); Blood Urea Nitrogen 11 mg/dl (6-23); Calcium 9.2 mg/dl (8.6-10.3); Carbon Dioxide 24 mmol/L (21-32); Chloride 105 mmol/L (98-107); Creatinine Clr Calc Pharmacy 218.3 ml/min; Est GFR (African American) > 150.0 ml/min; Est GFR (Non-African American) 138.6 ml/min; Globulin 2.8 gm/dl (2.5-4.0); Glucose 109 mg/dl (70-99(Fasting)); Lipase 18 U/L (11-82); Potassium 3.7 mmol/L (3.5-5.1); Sodium 136 mmol/L (136-145); Total Protein 6.7 gm/dl (6.0-8.3)
[2024-01-29 16:20] LABS: Troponin I High Sensitivity 4.8 pg/ml (0-20)
[2024-01-29 16:22] LABS: INR 0.9 (0.9-1.1); Prothrombin Time 10.3 Seconds (9.0-12.0)
[2024-01-29] MEDS: OPTIRAY 320 100ml IV ONE (16:36)
[2024-01-29 16:55] LABS: Appearance Urine Turbid (Clear); Bacteria Urine Automated None Seen (None Seen); Bilirubin Urine Negative (Negative); Blood Urine 3+ (Negative); Color Urine Yellow; Epithelial Cell Urine Auto 0-2 /hpf (0-2); Glucose Urine UA Negative (Negative); Ketones Urine Negative (Negative); Leukocyte Esterase Urine 3+ (Negative); Nitrite Urine Negative (Negative); Protein Urine 2+ (Negative); RBC Urine Automated >20 /hpf (0-2); Specific Gravity Urine 1.019 (1.000-1.030); Urobilinogen Urine Negative (Negative); WBC Urine Automated >50 /hpf (0-5); pH Urine 6.5 (4.5-7.5)
--- NOTE | 2024-01-29 17:52 | CT Scan Report ---
CT SCAN OF THE ABDOMEN AND PELVIS WITH IV CONTRAST CLINICAL HISTORY: Generalized abdominal pain. COMPARISON STUDY: Abdominal CT dated 09/28/2023. TECHNIQUE: Following the IV administration of 90 cc of Optiray 320, CT scan of the abdomen and pelvi s is performed from the lung bases to the proximal femora. Images are reviewed in the axial, sagittal , and coronal planes. IV contrast was administered without complication. A dose lowering technique wa s utilized adhering to the principles of ALARA. The examination is degraded by streak artifact from t he arms which could not be elevated above the abdomen. CT DOSE: 1916.79 mGy.cm FINDINGS: Lung bases: The heart is normal in size and without pericardial effusion. There is fluid/debris in th e right lower lobe airways. Dependent consolidation is noted at both lung bases. No pleural effusion is identified. Liver: The contrast-enhanced liver is normal in size, contour, and attenuation. There is mild intrahe patic biliary ductal dilatation. The hepatic veins and portal veins are patent. Gallbladder: Surgically absent noting clips in the gallbladder fossa. Spleen: Normal in size and attenuation. Pancreas: Moderately atrophic and grossly unremarkable. Adrenal glands: Unremarkable. Kidneys: The contrast enhanced kidneys are normal in size and without hydronephrosis. There is a mill imeter calculus in the left renal pelvis. Additional nonobstructing left renal calculi measuring up t o 13 mm. No ureteral stone is seen. There are punctate nonobstructing calculi seen on the right. The kidneys enhance symmetrically. Abdominal vasculature: The abdominal aorta is normal in course and caliber noting scattered foci of a therosclerotic calcification. Bowel: The rectal wall is thickened and edematous with mucosal hyperemia. There is only mild surround ing alteration. No bowel obstruction is seen. Moderate fecal retention is noted throughout the remain dawna of the colon. The appendix is not identified and reported surgically absent. Peritoneum: There is no intraperitoneal free air or abdominal ascites. There is a small fat-containin g umbilical hernia. Lymphadenopathy: None. Pelvic viscera: The bladder is decompressed and a suprapubic catheter and appears markedly thick wall ed. There are small bilateral fat containing right hernias. The prostate gland is diminutive and hete rogeneous. Skeletal structures: The skeletal structures are osteopenic. The distal sacrum and coccyx are surgica lly absent. There is an overlying wound, with surrounding soft tissue thickening and possible packing material. Sclerotic change within the adjacent sacrum likely represents chronic osteomyelitis. No ly tic or blastic lesions are seen. Postoperative changes noted in the forearm/wrist bilaterally. IMPRESSION: 1. Findings are consistent with a nonspecific proctitis. There is moderate fecal retention throughout the proximal colon and this may be on a stercoral basis. Correlate clinically. 2. There is fluid/debris within the right lower lobe airways. Correlate clinically for evidence of as piration. Dependent airspace opacities could represent atelectasis versus pneumonia/aspiration pneumo nitis, and again clinical correlation will be required. 3. Postsurgical change is seen in the sacrum and coccyx with an overlying wound and surrounding soft tissue thickening. There may be packing material in place. Sclerotic change in the adjacent sacrum si te likely represents chronic osteomyelitis. Correlate clinically. 4. Left-sided nephrolithiasis. 5. Additional findings as above. ACT 112: Negative or not required by law. Electronically signed by: Ramo Green M.D. 01/29/2024 5:50 PM
[2024-01-29] MEDS: ACETAMINOPHEN 1,000 MG/100 ML VIAL IV STA (18:00)
[2024-01-29] MEDS: PIPERACILLIN/TAZOBACTAM 4.5 GM/100 ML BAG IV ONE (18:15)
--- NOTE | 2024-01-29 19:17 | XRay Report ---
SINGLE VIEW CHEST CLINICAL HISTORY: Dyspnea FINDINGS: An AP, portable, upright chest radiograph is compared to study dated 09/28/2023. The cardiac silhouette is enlarged. The pulmonary vasculature is noncongested. Chronic interstitial thickening i s similar to previous. There is bibasilar scarring/atelectasis. The lungs and pleural spaces are othe rwise clear. No pneumothorax is seen. The bony thorax is grossly intact. Fusion hardware is seen in t he lower cervical spine. IMPRESSION: No active disease in the chest. ACT 112: Negative or not required by law. Electronically signed by: Ramo Green M.D. 01/29/2024 7:15 PM
[2024-01-29] MEDS: ALBUT/IPRATROP 3MG/0.5MG NEB 3 ML VIAL NEB STA (19:29)
[2024-01-29] MEDS: HYDROmorphone INJ 0.5 MG/0.5 ML SYR IV STA ×2 (19:29→23:34)
[2024-01-29 20:13] LABS: Adenovirus PCR Not Detected (NotDetected); Bordetella parapertussis PCR Not Detected (NotDetected); Bordetella pertussis PCR Not Detected (NotDetected); Chlamydia pneumoniae PCR Not Detected (NotDetected); Coronavirus 229E PCR Not Detected (NotDetected); Coronavirus CoV-2 (COVID19)PCR Not Detected (NotDetected); Coronavirus HKU1 PCR Not Detected (NotDetected); Coronavirus NL63 PCR Not Detected (NotDetected); Coronavirus OC43PCR Not Detected (NotDetected); Human Metapneumovirus PCR Not Detected (NotDetected); Influenza A PCR Not Detected (NotDetected); Influenza B PCR Not Detected (NotDetected); Mycoplasma pneumoniae PCR Not Detected (NotDetected); Parainfluenza Virus 1 PCR Not Detected (NotDetected); Parainfluenza Virus 2 PCR Not Detected (NotDetected); Parainfluenza Virus 3 PCR Not Detected (NotDetected); Parainfluenza Virus 4 PCR Not Detected (NotDetected); Respiratory Syncytial VirusPCR Not Detected (NotDetected); Rhinovirus/Enterovirus PCR Not Detected (NotDetected)
[2024-01-30] MEDS: HYDROmorphone INJ 0.5 MG/0.5 ML SYR IV STA (00:50)
[2024-01-30] MEDS: ALBUT/IPRATROP 3MG/0.5MG NEB 3 ML VIAL NEB STA (00:50)
--- NOTE | 2024-01-30 01:11 | History & Physical Report ---
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, recurrent UTI secondary to neurogenic bladder with chronic indwelling suprapubic catheter, HCV s/p treatment, chronic anemia baseline hemoglobin 13, chronic sacral decubitus wounds and Osteomyelitis, chronic pain on narcotics, history of MRSA, history of intermediate resistant Pseudomonas per records, ongoing tobacco abuse smokes 1 pack a day, ongoing substance abuse states he uses cocaine and methamphetamines 2-3 times a week and states he currently does not use that much to get withdrawal as per patient comes in because of abdominal pain and constipation and also in the ER was requiring oxygen and had a lot of cough. Patient complaining severe abdominal pain and spasms.When coughing having lot of back pain and abdominal pain per patient.. Did not move his bowels since yesterday. Uses stool softeners and suppositories but not working. Denies any nausea /vomiting. States he swallows okay. Has wounds on his upper chest wall says from his cigarettes ashes dropping down. Denies any headache. No blurred vision. No runny nose. Says earlier had chest pain that got resolved. States he lives with his family and and also has caregivers. Hemodynamically stable. aspiration pneumonitis empiric Zosyn and Vanco speech evaluation pulmonary consult abdominal pain and constipation CT scan showing nonspecific proctitis and constipation stool softeners consult GI in a.m. for further recommendations sacral ulcer stage IV CAT scan showing chronic osteomyelitis and was present in previous CAT scan wound care consult antibiotics as able ID consult recurrent UTI secondary to neurogenic bladder with chronic indwelling suprapubic catheter UA is again positive UA shows yeast. He was recently treated with Fluconazole for yeast in the urine on antibiotics as above. await ID input. History of saddle PE on Eliquis chest pain currently resolved EKG and troponin okay we will follow serial troponins and repeat EKG if any concern will get echo and cardiac consult COPD ongoing tobacco abuse needs counseling will place him on nebs chronic diastolic CHF monitor for volume overload history of HCV s/p treatment history of MRSA history of intermediate resistant Pseudomonas ongoing drug abuse with amphetamines and cocaine's need counseling DVT prophylaxis on Eliquis disposition med/telemetry full code History of Present Illness Chief Complaint: abdominal pain and cough and shortness of breath Primary Care Provider: Chay Goins Capp, DO 48-year-old male with past med history significant for COPD, chronic diastolic CHF, history of saddle PE on Eliquis, COPD, 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, recurrent UTI secondary to neurogenic bladder with chronic indwelling suprapubic catheter, HCV s/p treatment, chronic anemia baseline hemoglobin 13, chronic sacral decubitus wounds and Osteomyelitis, chronic pain on narcotics, history of MRSA, history of intermediate resistant Pseudomonas per records, ongoing tobacco abuse smokes 1 pack a day, ongoing substance abuse states he uses cocaine and methamphetamines 2-3 times a week and states he currently does not use that much to get withdrawal as per patient comes in because of abdominal pain and constipation and also in the ER was requiring oxygen and had a lot of cough. Patient complaining severe abdominal pain and spasms.When coughing having lot of back pain and abdominal pain per patient.. Did not move his bowels since yesterday. Uses stool softeners and suppositories but not working. Denies any nausea /vomiting. States he swallows okay. Has wounds on his upper chest wall says from his cigarettes ashes dropping down. Denies any headache. No blurred vision. No runny nose. Says earlier had chest pain that got resolved. States he lives with his family and and also has caregivers. Hemodynamically stable. Past medical history. As mentioned above past surgical history. Ankle surgery, neck surgery, urological procedures, arm surgery, appendectomy, leg abscess drainage/metatarsal surgery, cholecystectomy, cystoscopy, neck and lumbar fusion surgery. social history. Smokes 1 pack a day for last 31 years. Sometimes vapes nicotine THC and CBD as per epic. States he drinks 12 standard drinks in a month. Uses amphetamines marijuana and cocaine. Family history. Father had lung cancer. Mother had heart attack. Allergies Allergy/AdvReac Type Severity Reaction Status Date / Time No Known Allergies Allergy Verified 01/29/24 21:32 Home Medications Medication Instructions Recorded Confirmed Type Naloxone 4 Mg/0.1ml 1 spray intranasal (ALT) 01/29/24 01/29/24 History DIRECTED PRN opiod od Sterile Water For Irrigation 1 ea NA BID 01/29/24 01/29/24 History amitriptyline 25 mg tablet 25 mg PO HS 01/29/24 01/29/24 History apixaban 5 mg tablet (Eliquis) 5 mg PO BID 01/29/24 01/29/24 History bisacodyl 10 mg rectal suppository 10 mg [place] AMPM 01/29/24 01/29/24 History budesonide-formoterol HFA 160 2 puff inhalation BID 01/29/24 01/29/24 History mcg-4.5 mcg/actuation aerosol inhaler celecoxib 200 mg capsule 200 mg PO DAILY PRN Pain 01/29/24 01/29/24 History collagenase clostridium histo. 250 1 applic topical DAILY 01/29/24 01/29/24 History unit/gram topical ointment docusate sodium 100 mg capsule 100 mg PO BID PRN Constipation 01/29/24 01/29/24 History duloxetine 60 mg capsule,delayed 60 mg PO DAILY 01/29/24 01/29/24 History release sprinkle famotidine 10 mg tablet 10 mg PO AMHS 01/29/24 01/29/24 History ferrous sulfate 325 mg (65 mg 325 mg PO DAILY 01/29/24 01/29/24 History iron) tablet gabapentin 100 mg capsule 100 mg PO TID 01/29/24 01/29/24 History gabapentin 300 mg capsule 300 mg PO TID 01/29/24 01/29/24 History hydroxyzine HCl 25 mg tablet 25 mg PO DAILY PRN Anxiety 01/29/24 01/29/24 History lactulose 20 gram/30 mL oral 20 g PO TID 01/29/24 01/29/24 History solution lidocaine 5 % topical patch 1 patch topical DAILY PRN Pain 01/29/24 01/29/24 History midodrine 10 mg tablet 10 mg PO Q8 PRN .sbp 01/29/24 01/29/24 History naloxegol 25 mg tablet (Movantik) 25 mg PO QAM 01/29/24 01/29/24 History oxybutynin chloride 10 mg 10 mg PO DAILY 01/29/24 01/29/24 History tablet,extended release 24 hr potassium chloride 20 mEq 20 meq PO AMHS 01/29/24 01/29/24 History tablet,extended release(part/cryst) sennosides 8.6 mg-docusate sodium 2 tab-cap PO HS 01/29/24 01/29/24 History 50 mg tablet (Senokot-S) simethicone 80 mg chewable tablet 80 mg PO TID 01/29/24 01/29/24 History sodium hypochlorite 0.25 % 1 irrig topical BID 01/29/24 01/29/24 History solution (Dakin's Solution) tiotropium bromide 2.5 2 puff inhalation QAM 01/29/24 01/29/24 History mcg/actuation mist for inhalation (Spiriva Respimat) Past Med/Surg History Problem List (Updated 01/29/24 @ 19:42 by Irene Lopez MD) Acute hypoxemic respiratory failure (Acute) Chest pain (Acute) Pneumonia (Acute) Abdominal pain (Acute) Severe sepsis (Acute) MRSA carrier Pneumonia (Acute) Hypoxic respiratory failure (Acute) 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 Leg wound, right Leg wound, left History of pulmonary embolism Hypoxia (Acute) RSV (respiratory syncytial virus infection) Chronic pain Suprapubic catheter (Acute) Complicated UTI (urinary tract infection) (Acute) Sacral decubitus ulcer, stage IV (Acute) Chronic osteomyelitis of sacrum Paraplegia Medical History History of pulmonary embolism Chronic pain Suprapubic catheter Paraplegia Chronic osteomyelitis of sacrum Sacral decubitus ulcer, stage IV Surgical History No pertinent past surgical history Social History Smoking Status: Current every day smoker Tobacco Type: Cigarettes Cigarettes Per Day: 50-60; Second Hand Exposure: Yes; Do You Dip or Chew Tobacco: No; Hx Alcohol Use: Yes Alcohol type: beer Hx Substance Use: No Preferred Language: Swedish Communication Ability: Effective Chocolate Packer Required: No Beliefs That Will Affect Care: None Current Living Situation: Family Current Living Situation Comment: alone with 28/02 home care Other Information That Helps Us Care for You: No Feels Safe at Home: Yes Safety Concerns: Feels Safe At This Time Assistive Devices: Mechanical Lift and Slide Board Review of Systems Review of Systems: All systems reviewed & are unremarkable except as noted in HPI & below Physical Exam Physical Exam: General- Not in acute distress Head- atraumatic Eyes- PERRL. ENT- oropharynx dry. poor dentition. Neck- supple, no JVD. Lungs- clear to auscultation no wheezing or crackles. Heart- regular rate and rhythm; no murmur, no gallop. Abdomen- normal bowel sounds, soft, nontender, no distension. supra pubic cath seen ,site is dry. Extremities- no pretibial edema, no erythema seen. Neuro- alert, oriented PERRL, no facial palsy; no dysarthria; can move upper extremities at his elbow Skin- burn wounds seen on upper anterior chest wall. stage IV sacral decubitus ulcers Results & Data Results & Data Vital Signs (Past 12 Hours) Vital Signs Temp Pulse Pulse Resp BP BP Pulse Ox 01/30/24 00:12 62 01/30/24 00:00 60 18 135/93 98 01/29/24 22:00 64 18 100/63 98 01/29/24 20:19 64 01/29/24 20:00 71 18 116/79 97 01/29/24 20:00 71 18 97 01/29/24 18:00 76 20 142/105 H 96 01/29/24 16:30 65 01/29/24 16:20 47 L 20 127/90 98 01/29/24 15:00 36.5 C 78 26 H 153/105 H 94 O2 Del Method O2 Flow Rate 01/30/24 00:12 01/30/24 00:00 Nasal Cannula 3 01/29/24 22:00 Nasal Cannula 3 01/29/24 20:19 01/29/24 20:00 Nasal Cannula 3 01/29/24 20:00 Nasal Cannula 3 01/29/24 18:00 Nasal Cannula 2 01/29/24 16:30 01/29/24 16:20 01/29/24 15:00 Room Air Diagnostic Findings Laboratory Results WBC 9.56 K/ul (4.8-10.8) 01/29/24 15:42 RBC 5.10 M/uL (4.70-6.10) 01/29/24 15:42 Hgb 13.7 g/dl (14.0-18.0) L 01/29/24 15:42 Hct 43.3 % (42.0-52.0) 01/29/24 15:42 MCV 84.9 fL (80.0-100.0) 01/29/24 15:42 MCH 26.9 pg (25.0-34.0) 01/29/24 15:42 MCHC 31.6 g/dL (32.0-36.0) L 01/29/24 15:42 RDW Std Deviation 48.6 fL (36.4-46.3) H 01/29/24 15:42 RDW Coeff of Adelia 15.8 % (11.5-14.5) H 01/29/24 15:42 Plt Count 269 K/uL (130-400) 01/29/24 15:42 MPV 9.7 fL (9.4-12.4) 01/29/24 15:42 Immature Gran % (Auto) 0.4 % 01/29/24 15:42 Neut % (Auto) 76.7 % 01/29/24 15:42 Lymph % (Auto) 13.9 % 01/29/24 15:42 Jerauld % (Auto) 6.2 % 01/29/24 15:42 Eos % (Auto) 2.0 % 01/29/24 15:42 Baso % (Auto) 0.8 % 01/29/24 15:42 Neut # (Auto) 7.33 K/uL (1.40-6.50) H 01/29/24 15:42 Lymph # (Auto) 1.33 K/uL (1.20-3.40) 01/29/24 15:42 Jerauld # (Auto) 0.59 K/uL (0.11-0.59) 01/29/24 15:42 Eos # (Auto) 0.19 K/uL (0.00-0.50) 01/29/24 15:42 Baso # (Auto) 0.08 K/uL (0.00-0.20) 01/29/24 15:42 Immature Gran # (Auto) 0.04 K/uL (0.01-0.20) 01/29/24 15:42 PT 10.3 Seconds (9.0-12.0) 01/29/24 15:42 INR 0.9 (0.9-1.1) 01/29/24 15:42 Sodium 136 mmol/L (136-145) 01/29/24 15:42 Potassium 3.7 mmol/L (3.5-5.1) 01/29/24 15:42 Chloride 105 mmol/L (98-107) 01/29/24 15:42 Carbon Dioxide 24 mmol/L (21-32) 01/29/24 15:42 Anion Gap 7 (3-11) 01/29/24 15:42 BUN 11 mg/dl (6-23) 01/29/24 15:42 Creatinine 0.42 mg/dl (0.6-1.4) L 01/29/24 15:42 Est Cr Clr Drug Dosing 218.3 ml/min 01/29/24 15:42 Est GFR ( Amer) > 150.0 ml/min 01/29/24 15:42 Est GFR (Non-Af Amer) 138.6 ml/min 01/29/24 15:42 BUN/Creatinine Ratio 26.2 (10-20) H 01/29/24 15:42 Glucose 109 mg/dl (70-99(Fasting)) H 01/29/24 15:42 Lactate 1.6 mmol/L (0.4-2.0) 01/29/24 15:42 Calcium 9.2 mg/dl (8.6-10.3) 01/29/24 15:42 Total Bilirubin 0.4 mg/dl (0.2-1.0) 01/29/24 15:42 AST 16 U/L (13-39) 01/29/24 15:42 ALT 8 U/L (7-52) 01/29/24 15:42 Alkaline Phosphatase 124 U/L (34-104) H 01/29/24 15:42 Troponin I High Sens 4.8 pg/ml (0-20) 01/29/24 15:42 Total Protein 6.7 gm/dl (6.0-8.3) 01/29/24 15:42 Albumin 3.9 gm/dl (3.4-5.0) 01/29/24 15:42 Globulin 2.8 gm/dl (2.5-4.0) 01/29/24 15:42 Albumin/Globulin Ratio 1.4 (0.9-2) 01/29/24 15:42 Lipase 18 U/L (11-82) 01/29/24 15:42 Urine Color Yellow 01/29/24 16:20 Urine Appearance Turbid (Clear) A 01/29/24 16:20 Urine pH 6.5 (4.5-7.5) 01/29/24 16:20 Ur Specific Culver 1.019 (1.000-1.030) 01/29/24 16:20 Urine Protein 2+ (Negative) H 01/29/24 16:20 Urine Glucose (UA) Negative (Negative) 01/29/24 16:20 Urine Ketones Negative (Negative) 01/29/24 16:20 Urine Blood 3+ (Negative) H 01/29/24 16:20 Urine Nitrite Negative (Negative) 01/29/24 16:20 Urine Bilirubin Negative (Negative) 01/29/24 16:20 Urine Urobilinogen Negative (Negative) 01/29/24 16:20 Ur Leukocyte Esterase 3+ (Negative) H 01/29/24 16:20 Urine WBC (Auto) >50 /hpf (0-5) H 01/29/24 16:20 Urine RBC (Auto) >20 /hpf (0-2) H 01/29/24 16:20 U Hyaline Cast (Auto) 3-5 /lpf (0-2) H 01/29/24 16:20 U Epithel Cells (Auto) 0-2 /hpf (0-2) 01/29/24 16:20 Urine Bacteria (Auto) None Seen (None Seen) 01/29/24 16:20 Urine Yeast Present (None Prsent) A 01/29/24 16:20 Adenovirus (PCR) Not Detected (NotDetected) 01/29/24 18:54 B. pertussis DNA (PCR) Not Detected (NotDetected) 01/29/24 18:54 B.parapertussis DNA PCR Not Detected (NotDetected) 01/29/24 18:54 C. pneumoniae DNA (PCR) Not Detected (NotDetected) 01/29/24 18:54 Coronavirus OC43 (PCR) Not Detected (NotDetected) 01/29/24 18:54 Coronavirus HKU1 (PCR) Not Detected (NotDetected) 01/29/24 18:54 Coronavirus 229E (PCR) Not Detected (NotDetected) 01/29/24 18:54 SARS-CoV-2 (PCR) Not Detected (NotDetected) 01/29/24 18:54 Coronavirus NL63 (PCR) Not Detected (NotDetected) 01/29/24 18:54 Human Metapneumovir PCR Not Detected (NotDetected) 01/29/24 18:54 Influenza Type A (PCR) Not Detected (NotDetected) 01/29/24 18:54 Influenza Type B (PCR) Not Detected (NotDetected) 01/29/24 18:54 M. pneumoniae (PCR) Not Detected (NotDetected) 01/29/24 18:54 Parainfluenza 1 (PCR) Not Detected (NotDetected) 01/29/24 18:54 Parainfluenza 2 (PCR) Not Detected (NotDetected) 01/29/24 18:54 Parainfluenza 3 (PCR) Not Detected (NotDetected) 01/29/24 18:54 Parainfluenza 4 (PCR) Not Detected (NotDetected) 01/29/24 18:54 RSV (PCR) Not Detected (NotDetected) 01/29/24 18:54 Entero/Rhino (PCR) Not Detected (NotDetected) 01/29/24 18:54 Impressions Abdomen/Pelvis CT 01/29/24 15:13 CT SCAN OF THE ABDOMEN AND PELVIS WITH IV CONTRAST CLINICAL HISTORY: Generalized abdominal pain. COMPARISON STUDY: Abdominal CT dated 09/28/2023. TECHNIQUE: Following the IV administration of 90 cc of Optiray 320, CT scan of the abdomen and pelvis is performed from the lung bases to the proximal femora. Images are reviewed in the axial, sagittal, and coronal planes. IV contrast was administered without complication. A dose lowering technique was utilized adhering to the principles of ALARA. The examination is degraded by streak artifact from the arms which could not be elevated above the abdomen. CT DOSE: 1916.79 mGy.cm FINDINGS: Lung bases: The heart is normal in size and without pericardial effusion. There is fluid/debris in the right lower lobe airways. Dependent consolidation is noted at both lung bases. No pleural effusion is identified. Liver: The contrast-enhanced liver is normal in size, contour, and attenuation. There is mild intrahepatic biliary ductal dilatation. The hepatic veins and portal veins are patent. Gallbladder: Surgically absent noting clips in the gallbladder fossa. Spleen: Normal in size and attenuation. Pancreas: Moderately atrophic and grossly unremarkable. Adrenal glands: Unremarkable. Kidneys: The contrast enhanced kidneys are normal in size and without hydronephrosis. There is a millimeter calculus in the left renal pelvis. Additional nonobstructing left renal calculi measuring up to 13 mm. No ureteral stone is seen. There are punctate nonobstructing calculi seen on the right. The kidneys enhance symmetrically. Abdominal vasculature: The abdominal aorta is normal in course and caliber noting scattered foci of atherosclerotic calcification. Bowel: The rectal wall is thickened and edematous with mucosal hyperemia. There is only mild surrounding alteration. No bowel obstruction is seen. Moderate fecal retention is noted throughout the remainder of the colon. The appendix is not identified and reported surgically absent. Peritoneum: There is no intraperitoneal free air or abdominal ascites. There is a small fat-containing umbilical hernia. Lymphadenopathy: None. Pelvic viscera: The bladder is decompressed and a suprapubic catheter and betsy ears markedly thick walled. There are small bilateral fat containing right hernias. The prostate gland is diminutive and heterogeneous. Skeletal structures: The skeletal structures are osteopenic. The distal sacrum and coccyx are surgically absent. There is an overlying wound, with surrounding soft tissue thickening and possible packing material. Sclerotic change within the adjacent sacrum likely represents chronic osteomyelitis. No lytic or blastic lesions are seen. Postoperative changes noted in the forearm/wrist bilaterally. IMPRESSION: 1. Findings are consistent with a nonspecific proctitis. There is moderate fecal retention throughout the proximal colon and this may be on a stercoral basis. Correlate clinically. 2. There is fluid/debris within the right lower lobe airways. Correlate clinically for evidence of aspiration. Dependent airspace opacities could represent atelectasis versus pneumonia/aspiration pneumonitis, and again clinical correlation will be required. 3. Postsurgical change is seen in the sacrum and coccyx with an overlying wound and surrounding soft tissue thickening. There may be packing material in place. Sclerotic change in the adjacent sacrum site likely represents chronic osteomyelitis. Correlate clinically. 4. Left-sided nephrolithiasis. 5. Additional findings as above. ACT 112: Negative or not required by law. Electronically signed by: Ramo Green M.D. 01/29/2024 5:50 PM Chest X-Ray 01/29/24 16:47 SINGLE VIEW CHEST CLINICAL HISTORY: Dyspnea FINDINGS: An AP, portable, upright chest radiograph is compared to study dated 09/28/2023. The cardiac silhouette is enlarged. The pulmonary vasculature is noncongested. Chronic interstitial thickening is similar to previous. There is bibasilar scarring/atelectasis. The lungs and pleural spaces are otherwise clear. No pneumothorax is seen. The bony thorax is grossly intact. Fusion hardware is seen in the lower cervical spine. IMPRESSION: No active disease in the chest. ACT 112: Negative or not required by law. Electronically signed by: Ramo Green M.D. 01/29/2024 7:15 PM ECG Additional Comments: EKG. Normal sinus rhythm rate of 70. No significant change was found. QTc 453. Code Status & VTE Plan VTE Prophylaxis Plan VTE Prophylaxis will be ordered: Yes
[2024-01-30] MEDS ORDERED: DOCUSATE SODIUM 100 MG CAP PO PRN (01:14)
[2024-01-30] MEDS ORDERED: NITROGLYCERIN SL 0.4 MG/TAB TAB SL PRN (01:14)
[2024-01-30] MEDS ORDERED: POLYETHYLENE (MIRALAX) 17 GM PACK PO PRN (01:14)
[2024-01-30] MEDS ORDERED: bisacodyL 10 MG SUPP PR PRN (01:14)
[2024-01-30] MEDS ORDERED: VANCOMYCIN CONSULT ACTIVE PRN (01:14)
[2024-01-30] MEDS ORDERED: ACETAMINOPHEN 325 MG TAB PO PRN (01:14)
[2024-01-30] MEDS ORDERED: LIDOCAINE 5% 1 PATCH TD PRN (01:14)
[2024-01-30] MEDS: SODIUM CHLORIDE 0.9% 1,000 ML IV SCH (02:14)
[2024-01-30] MEDS: VANCOMYCIN HCL 1,750 MG in SODIUM CHLORIDE 0.9% 500 ML IV STA (02:15)
[2024-01-30] MEDS ORDERED: NALOXONE HCL 0.4 MG/1 ML VIAL/CARP IV PRN (02:33)
[2024-01-30] MEDS: PIPERACILLIN/TAZOBACTAM 4.5 GM in DEXTROSE 5% MINI-B 100 ML IV SCH (05:05)
[2024-01-30] MEDS: HYDROmorphone INJ 0.5 MG/0.5 ML SYR IV PRN (06:08)
[2024-01-30 06:24] LABS: Basophils # (auto) 0.08 K/uL (0.00-0.20); Eosinophils # (auto) 0.26 K/uL (0.00-0.50); Eosinophils % (auto) 3.3 %; Hematocrit (blood only) 39.3 % (42.0-52.0); Hemoglobin 12.8 g/dl (14.0-18.0); Immature Granulocytes # (auto) 0.03 K/uL (0.01-0.20); Immature Granulocytes % (auto) 0.4 %; Lymphocytes # (auto) 1.99 K/uL (1.20-3.40); Mean Corpuscular Hemoglobin 27.9 pg (25.0-34.0); Mean Corpuscular Hgb Conc 32.6 g/dL (32.0-36.0); Mean Corpuscular Volume 85.6 fL (80.0-100.0); Monocytes # (auto) 0.49 K/uL (0.11-0.59); Monocytes % (auto) 6.1 %; Neutrophils # (auto) 5.12 K/uL (1.40-6.50); Neutrophils % (auto) 64.2 %; Platelet Count 228 K/uL (130-400); RDW Coefficient of Variation 15.9 % (11.5-14.5); RDW Standard Deviation 49.8 fL (36.4-46.3); Red Blood Count 4.59 M/uL (4.70-6.10); White Blood Count 7.97 K/ul (4.8-10.8)
[2024-01-30 06:43] LABS: Anion Gap 5 (3-11); BUN Creatinine Ratio 18.6 (10-20); Blood Urea Nitrogen 8 mg/dl (6-23); Calcium 8.9 mg/dl (8.6-10.3); Carbon Dioxide 25 mmol/L (21-32); Chloride 109 mmol/L (98-107); Creatinine Clr Calc Pharmacy 213.2 ml/min; Est GFR (African American) > 150.0 ml/min; Est GFR (Non-African American) 137.3 ml/min; Glucose 88 mg/dl (70-99(Fasting)); Magnesium 1.7 mg/dl (1.7-2.4); Potassium 3.3 mmol/L (3.5-5.1); Sodium 139 mmol/L (136-145)
[2024-01-30] MEDS: ALBUT/IPRATROP 3MG/0.5MG NEB 3 ML VIAL NEB SCH (07:22)
--- NOTE | 2024-01-30 07:59 | Electrocardiogram Report ---
Test Reason : Blood Pressure : / mmHG Vent. Rate : 078 BPM Atrial Rate : 078 BPM P-R Int : 186 ms QRS Dur : 090 ms QT Int : 396 ms P-R-T Axes : 021 -14 013 degrees QTc Int : 451 ms Normal sinus rhythm Normal ECG When compared with ECG of 01-OCT-2023 17:09, No significant change was found Confirmed by Javier Morejon ([id number]) on 01/30/2024 7:59:10 AM Referred By: REFERRED SELF Confirmed By:Javier Morejon
[2024-01-30] MEDS: SODIUM CHLOR 7% 4 ML NEB NEB SCH ×2 (08:05→19:37)
--- NOTE | 2024-01-30 08:05 | Electrocardiogram Report ---
Test Reason : Blood Pressure : / mmHG Vent. Rate : 070 BPM Atrial Rate : 070 BPM P-R Int : 186 ms QRS Dur : 090 ms QT Int : 420 ms P-R-T Axes : 016 -02 017 degrees QTc Int : 453 ms Normal sinus rhythm Normal ECG When compared with ECG of 29-JAN-2024 15:07, No significant change was found Confirmed by Javier Morejon ([id number]) on 01/30/2024 8:04:44 AM Referred By: REFERRED SELF Confirmed By:Javier Morejon
--- NOTE | 2024-01-30 08:26 | Pharmacy Report ---
Pharmacy PK ABX Note - Date of Service January 30, 2024 - Assessment and Plan Assessment 48 year old M receiving vancomycin and zosyn empirically. Possible sources in include pneumonia, UTI, chronic sacral wound. Urine cx pending but patient does have a suprapubic catheter in place and it is unclear whether this was exchanged prior to obtaining urine culture. MRSA nasal swab was ordered. ID consulted. Pertinent microbiologic data includes: history of MRSA and pseudomonas in prior cultures. Day # 1 of antimicrobial therapy. Plan Vancomycin * Patient is paralyzed from the neck down. Crcl may be overestimated due to this. Will keep regimen ordered by initiating pharmacist and get an level tomorrow morning to determine any necessary adjustments. * Loading dose: 1750 mg IV x 1 * Maintenance dose: 1250 mg IV every 8 hours * Regimen is predicted to achieve target AUC/BEATRIZ of 400-600 mg/L.hr * Trough level ordered for: 01/31/24 @0900 Pharmacy will continue to follow and will adjust dose/frequency as necessary. Thank you. Pharmacy has transitioned to AUC monitoring for vancomycin. AUC/BEATRIZ is the preferred PK/PD target and is associated with decreased risk of nephrotoxicity compared to traditional trough targets.
[2024-01-30] MEDS ORDERED: GABAPENTIN 100 MG CAP PO SCH (09:00)
[2024-01-30] MEDS: OXYBUTYNIN CHLORIDE XL 5 MG TABCR PO SCH (09:12)
[2024-01-30] MEDS: SIMETHICONE 80 MG CHEW PO SCH (09:12)
[2024-01-30] MEDS: DULoxetine HCL 60 MG CAP PO SCH (09:13)
[2024-01-30] MEDS: LACTULOSE SYRUP 20 GM/30 ML UDC PO SCH (09:13)
[2024-01-30] MEDS: GABAPENTIN 300 MG CAP PO SCH (09:13)
[2024-01-30] MEDS: FERROUS SULFATE 325 MG TAB PO SCH (09:13)
[2024-01-30] MEDS: FAMOTIDINE 10 MG TABLET PO SCH (09:13)
[2024-01-30] MEDS: POTASSIUM CHLORIDE CRTAB 20 MEQ TABCR PO SCH (09:13)
[2024-01-30] MEDS: APIXABAN 5 MG TABLET PO SCH (09:13)
[2024-01-30] MEDS: UMECLIDINIUM BROMIDE 62.5MCG/BLISTER 7 PUFFS/INHALER INH SCH (09:26)
[2024-01-30] MEDS: COLLAGENASE OINT 30 GM TUBE TOP SCH (09:26)
[2024-01-30] MEDS: DAKIN'S SOLN 0.25% HALF STRENGTH 473ML BTL EXT SCH (09:26)
[2024-01-30] MEDS: FLUTICASONE/VILANTEROL 200/25MCG 14 PUFFS/INHALER INH SCH (09:26)
[2024-01-30] MEDS: bisacodyL 10 MG SUPP PR STA (09:26)
[2024-01-30] MEDS: BACLOFEN 10 MG TAB PO PRN ×2 (09:31→12:13)
[2024-01-30] MEDS: hydrOXYzine HCl 25 MG TAB PO PRN (09:37)
[2024-01-30] MEDS ORDERED: BACLOFEN 20 MG TAB PO PRN (09:43)
--- NOTE | 2024-01-30 09:59 | Pulmonary Consultation ---
Date of Consultation January 30, 2024 Assessment & Plan (1) History of pulmonary embolism: (2) Hypoxia: (3) Aspiration pneumonitis: 48 y/o male with PMH of cervical injury C1-C4 paralyzed, HFpEF, Hx of Pulmonary Embolism, Sacral Decubitus Stage IV, chronic, MRSA wounds, history of intermediate resistant Pseudomonas per records with hypoxia and Abdomen/Pelvic CT with fluid/ debris within the right lower lobe airways. Dependent airspace opacities could represent atelectasis versus pneumonia/aspiration pneumonitis 1. Aspiration pneumonitis: Currently on Zosyn and Vancomycin. Will add sputum culture and gram stain. MRSA nasal swab - Continue Duoneb QID. Recommend to stop Breo Ellipta, on the setting of no COPD exacerbation and since steroids can increases chances of recurrent pneumonia - Follow speech evaluation - Will add CT chest. May benefit on a swallow study - Hypertonic saline nebs BID - Cough assist with bed chest percussion 2. Hypoxia. Currently on Nasal cannula 3L/min. Continue supplemental oxygen to keep saturations at or above 94% 3. Hx of saddle PE: Patient on Apixaban for extended period. Patient refers compliance. In the setting on chronic paraplegic, hypoxia and chest pain will rule out an acute PE. CTA PE protocol ordered. Plan Patient seen and examined with the resident physician. Agree with the plan as above unless otherwise noted. Findings on CT chest consistent with aspiration pneumonia. Recommend speech therapy consultation (ordered). Will start aggressive pulmonary toilet with hypertonic saline and 4 times daily percussive vest therapy. I see no evidence of COPD in this patient. He does have extensive smoking history however he has no evidence of emphysema and he has no history of obstruction on PFTs. Additionally serum bicarbonate levels have been unremarkable suggesting no evidence of chronic hypercapnia. I would recommend discontinuing his ICS inhalers as an outpatient. Otherwise, I have no further recommendations at this time. Should he have worsening respiratory failure, would recommend transferring to the ICU, intubating and performing a bronchoscopy. 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 Patient presented to ED due to abdominal pain. On arrival to ED patient was found with hypoxia requiring nasal cannula 5L and findings of aspiration pneumonitis on CT On evaluation this morning patient refers abdominal / back pain and sporadic cough. Denied any runny nose, SOB, chest pain, or any other symptoms. CT abdomen with findings of aspiration pneumonitis.Patient denied any swallowing problems. He was admitted in the ICU due to hypoxemic respiratory failure secondary to pneumonia back in September of this year that was treated with Vanco and Meropenem due to hx of resistant Pseudomonas. He does have a hx of saddle PE that is currently being anticoagulated with Eliquis. Allergies Allergy/AdvReac Type Severity Reaction Status Date / Time No Known Allergies Allergy Verified 01/29/24 21:32 Home Medications Medication Instructions Recorded Confirmed Type Naloxone 4 Mg/0.1ml 1 spray intranasal (ALT) 01/29/24 01/29/24 History DIRECTED PRN opiod od Sterile Water For Irrigation 1 ea NA BID 01/29/24 01/29/24 History amitriptyline 25 mg tablet 25 mg PO HS 01/29/24 01/29/24 History apixaban 5 mg tablet (Eliquis) 5 mg PO BID 01/29/24 01/29/24 History bisacodyl 10 mg rectal suppository 10 mg [place] AMPM 01/29/24 01/29/24 History budesonide-formoterol HFA 160 2 puff inhalation BID 01/29/24 01/29/24 History mcg-4.5 mcg/actuation aerosol inhaler celecoxib 200 mg capsule 200 mg PO DAILY PRN Pain 01/29/24 01/29/24 History collagenase clostridium histo. 250 1 applic topical DAILY 01/29/24 01/29/24 History unit/gram topical ointment docusate sodium 100 mg capsule 100 mg PO BID PRN Constipation 01/29/24 01/29/24 History duloxetine 60 mg capsule,delayed 60 mg PO DAILY 01/29/24 01/29/24 History release sprinkle famotidine 10 mg tablet 10 mg PO AMHS 01/29/24 01/29/24 History ferrous sulfate 325 mg (65 mg 325 mg PO DAILY 01/29/24 01/29/24 History iron) tablet gabapentin 100 mg capsule 100 mg PO TID 01/29/24 01/29/24 History gabapentin 300 mg capsule 300 mg PO TID 01/29/24 01/29/24 History hydroxyzine HCl 25 mg tablet 25 mg PO DAILY PRN Anxiety 01/29/24 01/29/24 History lactulose 20 gram/30 mL oral 20 g PO TID 01/29/24 01/29/24 History solution lidocaine 5 % topical patch 1 patch topical DAILY PRN Pain 01/29/24 01/29/24 History midodrine 10 mg tablet 10 mg PO Q8 PRN .sbp 01/29/24 01/29/24 History naloxegol 25 mg tablet (Movantik) 25 mg PO QAM 01/29/24 01/29/24 History oxybutynin chloride 10 mg 10 mg PO DAILY 01/29/24 01/29/24 History tablet,extended release 24 hr potassium chloride 20 mEq 20 meq PO AMHS 01/29/24 01/29/24 History tablet,extended release(part/cryst) sennosides 8.6 mg-docusate sodium 2 tab-cap PO HS 01/29/24 01/29/24 History 50 mg tablet (Senokot-S) simethicone 80 mg chewable tablet 80 mg PO TID 01/29/24 01/29/24 History sodium hypochlorite 0.25 % 1 irrig topical BID 01/29/24 01/29/24 History solution (Dakin's Solution) tiotropium bromide 2.5 2 puff inhalation QAM 01/29/24 01/29/24 History mcg/actuation mist for inhalation (Spiriva Respimat) Patient History Surgical History No pertinent past surgical history Social History Smoking Status: Current every day smoker Tobacco Type: Cigarettes Cigarettes Per Day: 50-60; Second Hand Exposure: Yes; Do You Dip or Chew Tobacco: No; Hx Alcohol Use: Yes Alcohol type: beer Hx Substance Use: No Preferred Language: Luxembourgish Communication Ability: Effective Summer Nanny Required: No Beliefs That Will Affect Care: None Current Living Situation: Family Current Living Situation Comment: alone with 28/02 home care Other Information That Helps Us Care for You: No Feels Safe at Home: Yes Safety Concerns: Feels Safe At This Time Assistive Devices: Mechanical Lift and Slide Board Review of Systems Review of Systems: as pe rhpi Physical Exam Physical Exam: Not in acute distress Eyes: PERRL, conjunctivae normal, anicteric sclerae Neck: normal visual inspection No JVD Respiratory: normal respiratory effort; no respiratory distress and no labored breathing Auscultation: + rhonchi; no crackles Cardiovascular: RRR, no murmur, no edema Neurologic: awake Alert and oriented. Moves upper extremities Results & Data Results & Data Vital Signs (Past 12 Hours) Vital Signs Pulse Pulse Resp BP Pulse Ox Pulse Ox O2 Del Method 01/30/24 08:33 68 01/30/24 08:30 85 18 97/63 L 92 Nasal Cannula 01/30/24 07:30 65 20 116/82 92 Nasal Cannula 01/30/24 07:22 67 17 95 Oxymask 01/30/24 06:27 60 15 104/74 96 Oxymask 01/30/24 02:00 Oxymask 01/30/24 02:00 67 16 127/92 98 Oxymask 01/30/24 02:00 96 01/30/24 00:12 62 01/30/24 00:00 60 18 135/93 98 Nasal Cannula 01/29/24 22:00 64 18 100/63 98 Nasal Cannula O2 Del Method O2 Flow Rate O2 Flow Rate 01/30/24 08:33 01/30/24 08:30 5 01/30/24 07:30 5 01/30/24 07:22 6 01/30/24 06:27 01/30/24 02:00 5 01/30/24 02:00 5 01/30/24 02:00 Oxymask 5 01/30/24 00:12 01/30/24 00:00 3 01/29/24 22:00 3 PG Care Time/CCT Total # of Minutes Spent Total Time Spent with Patient: Total time spent is greater than 50% in coordination of care (as documented) at patient's floor/unit and/or counseling patient: Coding Level of Care Code 27970 INT INP/OBS CARE MIN Diagnoses History of pulmonary embolism Z86.711 Hypoxia R09.02 Aspiration pneumonitis J69.0
[2024-01-30] MEDS: VANCOMYCIN HCL 1,250 MG in SODIUM CHLORIDE 0.9% 250 ML IV SCH (10:35)
--- NOTE | 2024-01-30 12:19 | Gastrointestinal Consultation ---
Date of Consultation January 30, 2024 Assessment & Plan (1) Aspiration pneumonitis: 48 year old male with history of COPD, chronic diastolic CHF, history of saddle PE on Eliquis, quadriplegia secondary to traumatic cervical spine injury, recurrent UTI secondary to neurogenic bladder with chronic indwelling suprapubic catheter, HCV s/p treatment, chronic anemia baseline hemoglobin 13, chronic sacral decubitus wounds and Osteomyelitis, chronic pain on narcotics, history of MRSA, ongoing tobacco abuse smokes 1 pack a day, ongoing substance abuse states he uses cocaine and methamphetamine admitted with aspiration pneumonitis on Zosyn and Vancomycin - GI asked to evaluate for nonspecific proctitis with moderate fecal retention throughout the proximal colon. His abdominal examination is benign w/ normal lactic acid. No acute indication for endoscopic evaluation. There should be focus on optimizing his bowel function and avoiding constipation. Would add Miralax 1-2 capfuls daily to his current bowel regimen. It is unclear to me what his outpatient regimen is as he tells me he is taking an oral stool softener and a suppository daily but his home regimen has listed TID lactulose, Senna HS, colace BID, dulcolax BID. Would recommend an updated medication reconciliation so we can simplify his bowel regimen. Should follow up with his regular GI providers as an outpatient. At which time if he still struggles with constipation, discussion regarding Linzess or alternative agent should be discussed. Recall GI as needed. Will sign off. Thank you for allowing us to participate in the care of this patient. Please call with any acute changes, questions or concerns. Please see addendum below with additional recommendation from my supervising physician. Supervising Physician Co-Signing Physician Notes I examined the patient and reviewed patient's chart , laboratory data and imaging studies. I agree with with assessment and plan of care as suggested by advanced practice provider History of Present Illness Reason for Consultation: proctitis Requesting Physician: Stacey Attending Physician: Mukund Ibarra MD History of Present Illness 48 year old male with history of COPD, chronic diastolic CHF, history of saddle PE on Eliquis, quadriplegia secondary to traumatic cervical spine injury, recurrent UTI secondary to neurogenic bladder with chronic indwelling suprapubic catheter, HCV s/p treatment, chronic anemia baseline hemoglobin 13, chronic sacral decubitus wounds and Osteomyelitis, chronic pain on narcotics, history of MRSA, ongoing tobacco abuse smokes 1 pack a day, ongoing substance abuse states he uses cocaine and methamphetamines admitted through the ED w/ PNA and abdominal pain - GI asked to evaluate. Pt was seen and evaluated, chart reviewed. Notes that he has had chronic constipation since his injury. Typically uses oral stool softeners daily and suppositories PRN. Notes he normally moves his stool small volume daily. Suggests his bowel habits have been incomplete, less frequent, suggesting last stool was around 48 hours ago. Denies black or bloody stools. No nausea/vomiting. Abd pain is generalized reported as fullness. WBC 7.97 Tbili 04 AST 16 ALT 8 ALKP 124 Lipase 18 Lactate 1.6 CTAP 2023: Findings are consistent with a nonspecific proctitis. There is moderate fecal retention throughout the proximal colon and this may be on a stercoral basis. Correlate clinically.. There is fluid/debris within the right lower lobe airways. Correlate clinically for evidence of aspiration. Dependent airspace opacities could represent atelectasis versus pneumonia/aspiration pneumonitis, and again clinical correlation will be required. Postsurgical change is seen in the sacrum and coccyx with an overlying wound and surrounding soft tissue thickening. There may be packing material in place. Sclerotic change in the adjacent sacrum site likely represents chronic osteomyelitis. Correlate clinically. Left-sided nephrolithiasis. Allergies Allergy/AdvReac Type Severity Reaction Status Date / Time No Known Allergies Allergy Verified 01/29/24 21:32 Home Medications Medication Instructions Recorded Confirmed Type Naloxone 4 Mg/0.1ml 1 spray intranasal (ALT) 01/29/24 01/29/24 History DIRECTED PRN opiod od Sterile Water For Irrigation 1 ea NA BID 01/29/24 01/29/24 History amitriptyline 25 mg tablet 25 mg PO HS 01/29/24 01/29/24 History apixaban 5 mg tablet (Eliquis) 5 mg PO BID 01/29/24 01/29/24 History bisacodyl 10 mg rectal suppository 10 mg [place] AMPM 01/29/24 01/29/24 History budesonide-formoterol HFA 160 2 puff inhalation BID 01/29/24 01/29/24 History mcg-4.5 mcg/actuation aerosol inhaler celecoxib 200 mg capsule 200 mg PO DAILY PRN Pain 01/29/24 01/29/24 History collagenase clostridium histo. 250 1 applic topical DAILY 01/29/24 01/29/24 History unit/gram topical ointment docusate sodium 100 mg capsule 100 mg PO BID PRN Constipation 01/29/24 01/29/24 History duloxetine 60 mg capsule,delayed 60 mg PO DAILY 01/29/24 01/29/24 History release sprinkle famotidine 10 mg tablet 10 mg PO AMHS 01/29/24 01/29/24 History ferrous sulfate 325 mg (65 mg 325 mg PO DAILY 01/29/24 01/29/24 History iron) tablet gabapentin 100 mg capsule 100 mg PO TID 01/29/24 01/29/24 History gabapentin 300 mg capsule 300 mg PO TID 01/29/24 01/29/24 History hydroxyzine HCl 25 mg tablet 25 mg PO DAILY PRN Anxiety 01/29/24 01/29/24 History lactulose 20 gram/30 mL oral 20 g PO TID 01/29/24 01/29/24 History solution lidocaine 5 % topical patch 1 patch topical DAILY PRN Pain 01/29/24 01/29/24 History midodrine 10 mg tablet 10 mg PO Q8 PRN .sbp 01/29/24 01/29/24 History naloxegol 25 mg tablet (Movantik) 25 mg PO QAM 01/29/24 01/29/24 History oxybutynin chloride 10 mg 10 mg PO DAILY 01/29/24 01/29/24 History tablet,extended release 24 hr potassium chloride 20 mEq 20 meq PO AMHS 01/29/24 01/29/24 History tablet,extended release(part/cryst) sennosides 8.6 mg-docusate sodium 2 tab-cap PO HS 01/29/24 01/29/24 History 50 mg tablet (Senokot-S) simethicone 80 mg chewable tablet 80 mg PO TID 01/29/24 01/29/24 History sodium hypochlorite 0.25 % 1 irrig topical BID 01/29/24 01/29/24 History solution (Dakin's Solution) tiotropium bromide 2.5 2 puff inhalation QAM 01/29/24 01/29/24 History mcg/actuation mist for inhalation (Spiriva Respimat) Patient History Surgical History No pertinent past surgical history Social History Smoking Status: Current every day smoker Tobacco Type: Cigarettes Cigarettes Per Day: 50-60; Second Hand Exposure: Yes; Do You Dip or Chew Tobacco: No; Hx Alcohol Use: Yes Alcohol type: beer Hx Substance Use: No Preferred Language: Guyanese Communication Ability: Effective Molding Cutter Required: No Beliefs That Will Affect Care: None Current Living Situation: Family Current Living Situation Comment: alone with 28/02 home care Other Information That Helps Us Care for You: No Feels Safe at Home: Yes Safety Concerns: Feels Safe At This Time Assistive Devices: Mechanical Lift and Slide Board Review of Systems Review of Systems: All other findings negative except as noted in HPI. Physical Exam Constitutional: Chronically ill appearing male, in no acute distress, laying in ED bed. Respiratory: normal respiratory effort Wearing O2 Cardiovascular: Rate/Rhythm: regular rate and regular rhythm Gastrointestinal (Abdomen): Inspection/Auscultation: abdomen normal to inspection and normal bowel sounds Percussion/Palpation: abdomen soft; abdomen nontender, no guarding and abdomen not rigid Skin: no rashes, warm and dry Results & Data Vital Signs (Past 12 Hours) Vital Signs Pulse Pulse Resp BP Pulse Ox Pulse Ox O2 Del Method 01/30/24 10:57 63 24 94 Nasal Cannula 01/30/24 10:40 67 16 131/90 94 Nasal Cannula 01/30/24 08:33 68 01/30/24 08:30 85 18 97/63 L 92 Nasal Cannula 01/30/24 07:30 65 20 116/82 92 Nasal Cannula 01/30/24 07:22 67 17 95 Oxymask 01/30/24 06:27 60 15 104/74 96 Oxymask 01/30/24 02:00 Oxymask 01/30/24 02:00 67 16 127/92 98 Oxymask 01/30/24 02:00 96 01/30/24 00:12 62 01/30/24 00:00 60 18 135/93 98 Nasal Cannula O2 Del Method O2 Flow Rate O2 Flow Rate 01/30/24 10:57 3 01/30/24 10:40 3 01/30/24 08:33 01/30/24 08:30 5 01/30/24 07:30 5 01/30/24 07:22 6 01/30/24 06:27 01/30/24 02:00 5 01/30/24 02:00 5 01/30/24 02:00 Oxymask 5 01/30/24 00:12 01/30/24 00:00 3 Laboratory Results 01/30/24 01/30/24 01/30/24 Range/Units 10:40 10:28 05:52 WBC 7.97 (4.8-10.8) K/ul RBC 4.59 L (4.70-6.10) M/uL Hgb 12.8 L (14.0-18.0) g/dl Hct 39.3 L (42.0-52.0) % MCV 85.6 (80.0-100.0) fL MCH 27.9 (25.0-34.0) pg MCHC 32.6 (32.0-36.0) g/dL RDW Std Deviation 49.8 H (36.4-46.3) fL RDW Coeff of [place] 15.9 H (11.5-14.5) % Plt Count 228 (130-400) K/uL MPV 10.0 (9.4-12.4) fL Immature Gran % (Auto) 0.4 % Neut % (Auto) 64.2 % Lymph % (Auto) 25.0 % [place] % (Auto) 6.1 % Eos % (Auto) 3.3 % Baso % (Auto) 1.0 % Neut # (Auto) 5.12 (1.40-6.50) K/uL Lymph # (Auto) 1.99 (1.20-3.40) K/uL [place] # (Auto) 0.49 (0.11-0.59) K/uL Eos # (Auto) 0.26 (0.00-0.50) K/uL Baso # (Auto) 0.08 (0.00-0.20) K/uL Immature Gran # (Auto) 0.03 (0.01-0.20) K/uL PT (9.0-12.0) Seconds INR (0.9-1.1) Sodium 139 (136-145) mmol/L Potassium 3.3 L (3.5-5.1) mmol/L Chloride 109 H (98-107) mmol/L Carbon Dioxide 25 (21-32) mmol/L Anion Gap 5 (3-11) BUN 8 (6-23) mg/dl Creatinine 0.43 L (0.6-1.4) mg/dl Est Cr Clr Drug Dosing 213.2 ml/min Est GFR ( Amer) > 150.0 ml/min Est GFR (Non-Af Amer) 137.3 ml/min BUN/Creatinine Ratio 18.6 (10-20) Glucose 88 (70-99(Fasting)) mg/dl Lactate (0.4-2.0) mmol/L Calcium 8.9 (8.6-10.3) mg/dl Magnesium 1.7 (1.7-2.4) mg/dl Total Bilirubin (0.2-1.0) mg/dl AST (13-39) U/L ALT (7-52) U/L Alkaline Phosphatase (34-104) U/L Troponin I High Sens 3.9 3.4 (0-20) pg/ml Total Protein (6.0-8.3) gm/dl Albumin (3.4-5.0) gm/dl Globulin (2.5-4.0) gm/dl Albumin/Globulin Ratio (0.9-2) Lipase (11-82) U/L Urine Color Urine Appearance (Clear) Urine pH (4.5-7.5) Ur Specific [place] (1.000-1.030) Urine Protein (Negative) Urine Glucose (UA) (Negative) Urine Ketones (Negative) Urine Blood (Negative) Urine Nitrite (Negative) Urine Bilirubin (Negative) Urine Urobilinogen (Negative) Ur Leukocyte Esterase (Negative) Urine WBC (Auto) (0-5) /hpf Urine RBC (Auto) (0-2) /hpf U Hyaline Cast (Auto) (0-2) /lpf U Epithel Cells (Auto) (0-2) /hpf Urine Bacteria (Auto) (None Seen) Urine Yeast (None Prsent) Nasal Screen MRSA (PCR) Positive A (Negative) Adenovirus (PCR) (NotDetected) B. pertussis DNA (PCR) (NotDetected) B.parapertussis DNA PCR (NotDetected) C. pneumoniae DNA (PCR) (NotDetected) Coronavirus OC43 (PCR) (NotDetected) Coronavirus HKU1 (PCR) (NotDetected) Coronavirus 229E (PCR) (NotDetected) SARS-CoV-2 (PCR) (NotDetected) Coronavirus NL63 (PCR) (NotDetected) Human Metapneumovir PCR (NotDetected) Influenza Type A (PCR) (NotDetected) Influenza Type B (PCR) (NotDetected) M. pneumoniae (PCR) (NotDetected) Parainfluenza 1 (PCR) (NotDetected) Parainfluenza 2 (PCR) (NotDetected) Parainfluenza 3 (PCR) (NotDetected) Parainfluenza 4 (PCR) (NotDetected) RSV (PCR) (NotDetected) Entero/Rhino (PCR) (NotDetected) 01/29/24 01/29/24 01/29/24 Range/Units 18:54 16:20 15:42 WBC 9.56 (4.8-10.8) K/ul RBC 5.10 (4.70-6.10) M/uL Hgb 13.7 L (14.0-18.0) g/dl Hct 43.3 (42.0-52.0) % MCV 84.9 (80.0-100.0) fL MCH 26.9 (25.0-34.0) pg MCHC 31.6 L (32.0-36.0) g/dL RDW Std Deviation 48.6 H (36.4-46.3) fL RDW Coeff of Adelia 15.8 H (11.5-14.5) % Plt Count 269 (130-400) K/uL MPV 9.7 (9.4-12.4) fL Immature Gran % (Auto) 0.4 % Neut % (Auto) 76.7 % Lymph % (Auto) 13.9 % [place] % (Auto) 6.2 % Eos % (Auto) 2.0 % Baso % (Auto) 0.8 % Neut # (Auto) 7.33 H (1.40-6.50) K/uL Lymph # (Auto) 1.33 (1.20-3.40) K/uL [place] # (Auto) 0.59 (0.11-0.59) K/uL Eos # (Auto) 0.19 (0.00-0.50) K/uL Baso # (Auto) 0.08 (0.00-0.20) K/uL Immature Gran # (Auto) 0.04 (0.01-0.20) K/uL PT 10.3 (9.0-12.0) Seconds INR 0.9 (0.9-1.1) Sodium 136 (136-145) mmol/L Potassium 3.7 (3.5-5.1) mmol/L Chloride 105 (98-107) mmol/L Carbon Dioxide 24 (21-32) mmol/L Anion Gap 7 (3-11) BUN 11 (6-23) mg/dl Creatinine 0.42 L (0.6-1.4) mg/dl Est Cr Clr Drug Dosing 218.3 ml/min Est GFR ( Amer) > 150.0 ml/min Est GFR (Non-Af Amer) 138.6 ml/min BUN/Creatinine Ratio 26.2 H (10-20) Glucose 109 H (70-99(Fasting)) mg/dl Lactate 1.6 (0.4-2.0) mmol/L Calcium 9.2 (8.6-10.3) mg/dl Magnesium (1.7-2.4) mg/dl Total Bilirubin 0.4 (0.2-1.0) mg/dl AST 16 (13-39) U/L ALT 8 (7-52) U/L Alkaline Phosphatase 124 H (34-104) U/L Troponin I High Sens 4.8 (0-20) pg/ml Total Protein 6.7 (6.0-8.3) gm/dl Albumin 3.9 (3.4-5.0) gm/dl Globulin 2.8 (2.5-4.0) gm/dl Albumin/Globulin Ratio 1.4 (0.9-2) Lipase 18 (11-82) U/L Urine Color Yellow Urine Appearance Turbid A (Clear) Urine pH 6.5 (4.5-7.5) Ur Specific [place] 1.019 (1.000-1.030) Urine Protein 2+ H (Negative) Urine Glucose (UA) Negative (Negative) Urine Ketones Negative (Negative) Urine Blood 3+ H (Negative) Urine Nitrite Negative (Negative) Urine Bilirubin Negative (Negative) Urine Urobilinogen Negative (Negative) Ur Leukocyte Esterase 3+ H (Negative) Urine WBC (Auto) >50 H (0-5) /hpf Urine RBC (Auto) >20 H (0-2) /hpf U Hyaline Cast (Auto) 3-5 H (0-2) /lpf U Epithel Cells (Auto) 0-2 (0-2) /hpf Urine Bacteria (Auto) None Seen (None Seen) Urine Yeast Present A (None Prsent) Nasal Screen MRSA (PCR) (Negative) Adenovirus (PCR) Not Detected (NotDetected) B. pertussis DNA (PCR) Not Detected (NotDetected) B.parapertussis DNA PCR Not Detected (NotDetected) C. pneumoniae DNA (PCR) Not Detected (NotDetected) Coronavirus OC43 (PCR) Not Detected (NotDetected) Coronavirus HKU1 (PCR) Not Detected (NotDetected) Coronavirus 229E (PCR) Not Detected (NotDetected) SARS-CoV-2 (PCR) Not Detected (NotDetected) Coronavirus NL63 (PCR) Not Detected (NotDetected) Human Metapneumovir PCR Not Detected (NotDetected) Influenza Type A (PCR) Not Detected (NotDetected) Influenza Type B (PCR) Not Detected (NotDetected) M. pneumoniae (PCR) Not Detected (NotDetected) Parainfluenza 1 (PCR) Not Detected (NotDetected) Parainfluenza 2 (PCR) Not Detected (NotDetected) Parainfluenza 3 (PCR) Not Detected (NotDetected) Parainfluenza 4 (PCR) Not Detected (NotDetected) RSV (PCR) Not Detected (NotDetected) Entero/Rhino (PCR) Not Detected (NotDetected) PG Care Time/CCT Total # of Minutes Spent Total Time Spent with Patient: Total time spent is greater than 50% in coordination of care (as documented) at patient's floor/unit and/or counseling patient: Coding Level of Care Code 53804 IN/OBS CONSULT LVL 3,45M Diagnoses Aspiration pneumonitis J69.0
--- NOTE | 2024-01-30 13:36 | Hospitalist Progress Note ---
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 Abdominal pain Constipation Proctitis Patient presented with abdominal pain and constipation CT abdomen and pelvis shows moderate fecal retentionand nonspecific proctitis No leukocytosis On bowel regimen, started on tapwater enema [id number] MiraLAX added On Zosyn's, continue Aspiration pneumonitis CT abdomen pelvis on admission concerning for fluid/debris's within right lower lobe airways. MRSA nares positive Currently on Zosyn and vancomycin. Continue airway clearance therapy with hypertonic saline and DuoNebs Speech evaluation pending Pulm on consult Sacral ulcer stage IV CAT scan showing chronic osteomyelitis and was present in previous CAT scan wound care consult antibiotics as above ID on board Recurrent UTI secondary to neurogenic bladder with chronic indwelling suprapubic catheter UA is again positive UA shows yeast. He was recently treated with Fluconazole for yeast in the urine on antibiotics as above. await ID input. History of saddle PE on Eliquis, continue COPD ongoing tobacco abuse counselled on nebs chronic diastolic CHF monitor for volume overload history of HCV s/p treatment history of MRSA history of intermediate resistant Pseudomonas DVT prophylaxis on Eliquis disposition med/telemetry full code Please note the above document was generated using voice recognition software. It may contain grammatical, syntax or spelling errors. Any formal questions or concerns about the content, text or information contained within the body of this dictation should be directly addressed to the provider for clarification Admission and Anticipated Discharge Date Admission Date: January 30, 2024 Subjective Patient seen and examined at bedside. He reports significant back spasms Reports cough and abdominal discomfort Review of Systems Review of Systems: All systems reviewed & are unremarkable except as noted in Subjective Physical Exam Physical Exam: Constitutional: Alert oriented x 3; not in distress Respiratory: Bilateral clear breath sounds Cardiovascular: RRR, no murmur, no edema Vessels: no JVD or carotid bruit Chest: normal inspection of chest Abdomen: Mildly distended Skin: no rashes, warm and dry normal turgor Neurologic: PERRL, EOMI, accommodation nl, no face palsy, no dysarthria. Her extremities Psychiatric: A+Ox3, euthymic affect Results & Data Results & Data Vital Signs (Past 12 Hours) Vital Signs Temp Pulse Pulse Resp BP Pulse Ox Pulse Ox 01/30/24 12:22 36.4 C 70 18 123/76 94 01/30/24 10:57 63 24 94 01/30/24 10:40 67 16 131/90 94 01/30/24 08:33 68 01/30/24 08:30 85 18 97/63 L 92 01/30/24 07:30 65 20 116/82 92 01/30/24 07:22 67 17 95 01/30/24 06:27 60 15 104/74 96 01/30/24 02:00 01/30/24 02:00 67 16 127/92 98 01/30/24 02:00 96 O2 Del Method O2 Del Method O2 Flow Rate O2 Flow Rate 01/30/24 12:22 Oxymask 4 01/30/24 10:57 Nasal Cannula 3 01/30/24 10:40 Nasal Cannula 3 01/30/24 08:33 01/30/24 08:30 Nasal Cannula 5 01/30/24 07:30 Nasal Cannula 5 01/30/24 07:22 Oxymask 6 01/30/24 06:27 Oxymask 01/30/24 02:00 Oxymask 5 01/30/24 02:00 Oxymask 5 01/30/24 02:00 Oxymask 5
--- NOTE | 2024-01-30 14:13 | Infectious Disease Consult ---
Date of Service January 30, 2024 Telehealth Information I performed this visit using a real-time telehealth connection between my location and the patients location ([facility]). After connecting through interactive tele-video, patient was identified by name and date of and/or wristband check.Patient (or authorized healthcare disability representative) was informed that this was a telemedicine visit and it was being conducted confidentially over secure lines. My office door was closed and no one else was present in the room with me.Patient (or authorized healthcare disability representative) provided consent to proceed with the visit, expressed an understanding of privacy and security of the telemedicine visit, and gave permission to have a hospital disability representative in the room in order to assist with the visit and to conduct portions of the visit, as needed. I informed the patient (or authorized healthcare disability representative) that I reviewed their record and presented the opportunity for them to ask any questions regarding the visit today. The patient agreed to participate. Assessment & Plan (1) Aspiration pneumonitis: Plan: This was an incidental finding and likely a complication of his drug use, GI issues, and neurological problems. No fevers or leukocytosis, so the need for abx for this is not entirely clear. (2) Abdominal pain: Plan: This was the cause for his presentation. Imaging shows proctitis with fecal retention. (3) Sacral decubitus ulcer, stage IV: Plan: Chronic in nature. Imaging appears overall stable. Wound could not be examined properly by me on telemed however. He will need a wound care consult to better assess. (4) Suprapubic catheter: Plan: His urine is chronically abnormal and not necessarily indicative of infection. He has candiduria but this does not require therapy unless he were to undergo urinary instrumentation. Exchange of the cath should be considered. Plan Await wound care consult to evaluate for concerns externally of infection. If present, he will need a surgical evaluation. No indication for prolonged IV abx if wound is stable and no surgical intervention planned. Although we can keep him on the vanc and pip-tazo for now, he shouldn't need prolonged abx therapy for the pneumonia. It is not even clear he needs any abx therapy for his aspiration. If desired, a 5-7 day course of Augmentin could be considered. Final abx plans remain pending. History of Present Illness History of Present Illness Mr. Fried is a 48yo male with a h/o quadriplegia complicated by sacral decubitus ulceration, osteomyelitis, and recurrent catheter-associated UTI. He also has a h/o active substance abuse, including cocaine and methamphetamine. He has prior infections with MRSA and drug-resistant GNR like Serratia and Stenotrophomonas. He cam,e to the [facility] yesterday with worsening abdominal pain and was found to be slightly hypoxic. He noted cough. He has significant constipation and struggles with his bowel regimen. CT imaging showed proctitis and fecal retention as well as chronic decubitus ulceration and stable sclero sis. It also showed RLL debris and infiltration suggestive of aspiration. He required 4 liters of oxygen upon initial evaluation. His brother does his wound care at home and dressing changes daily. He thinks the wound is overall improving. No fevers at home prior to admission. Allergies Allergy/AdvReac Type Severity Reaction Status Date / Time No Known Allergies Allergy Verified 01/29/24 21:32 Home Medications Medication Instructions Recorded Confirmed Type Naloxone 4 Mg/0.1ml 1 spray intranasal (ALT) 01/29/24 01/29/24 History DIRECTED PRN opiod od Sterile Water For Irrigation 1 ea NA BID 01/29/24 01/29/24 History amitriptyline 25 mg tablet 25 mg PO HS 01/29/24 01/29/24 History apixaban 5 mg tablet (Eliquis) 5 mg PO BID 01/29/24 01/29/24 History bisacodyl 10 mg rectal suppository 10 mg MT AMPM 01/29/24 01/29/24 History budesonide-formoterol HFA 160 2 puff inhalation BID 01/29/24 01/29/24 History mcg-4.5 mcg/actuation aerosol inhaler celecoxib 200 mg capsule 200 mg PO DAILY PRN Pain 01/29/24 01/29/24 History collagenase clostridium histo. 250 1 applic topical DAILY 01/29/24 01/29/24 History unit/gram topical ointment docusate sodium 100 mg capsule 100 mg PO BID PRN Constipation 01/29/24 01/29/24 History duloxetine 60 mg capsule,delayed 60 mg PO DAILY 01/29/24 01/29/24 History release sprinkle famotidine 10 mg tablet 10 mg PO AMHS 01/29/24 01/29/24 History ferrous sulfate 325 mg (65 mg 325 mg PO DAILY 01/29/24 01/29/24 History iron) tablet gabapentin 100 mg capsule 100 mg PO TID 01/29/24 01/29/24 History gabapentin 300 mg capsule 300 mg PO TID 01/29/24 01/29/24 History hydroxyzine HCl 25 mg tablet 25 mg PO DAILY PRN Anxiety 01/29/24 01/29/24 History lactulose 20 gram/30 mL oral 20 g PO TID 01/29/24 01/29/24 History solution lidocaine 5 % topical patch 1 patch topical DAILY PRN Pain 01/29/24 01/29/24 History midodrine 10 mg tablet 10 mg PO Q8 PRN .sbp 01/29/24 01/29/24 History naloxegol 25 mg tablet (Movantik) 25 mg PO QAM 01/29/24 01/29/24 History oxybutynin chloride 10 mg 10 mg PO DAILY 01/29/24 01/29/24 History tablet,extended release 24 hr potassium chloride 20 mEq 20 meq PO AMHS 01/29/24 01/29/24 History tablet,extended release(part/cryst) sennosides 8.6 mg-docusate sodium 2 tab-cap PO HS 01/29/24 01/29/24 History 50 mg tablet (Senokot-S) simethicone 80 mg chewable tablet 80 mg PO TID 01/29/24 01/29/24 History sodium hypochlorite 0.25 % 1 irrig topical BID 01/29/24 01/29/24 History solution (Dakin's Solution) tiotropium bromide 2.5 2 puff inhalation QAM 01/29/24 01/29/24 History mcg/actuation mist for inhalation (Spiriva Respimat) Patient History Surgical History No pertinent past surgical history Social History Smoking Status: Current every day smoker Tobacco Type: Cigarettes Cigarettes Per Day: 50-60; Second Hand Exposure: Yes; Do You Dip or Chew Tobacco: No; Hx Alcohol Use: Yes Alcohol type: beer Hx Substance Use: No Preferred Language: Nepali Communication Ability: Effective Affiliate Marketing Coordinator Required: No Beliefs That Will Affect Care: None Current Living Situation: Family Current Living Situation Comment: alone with 28/02 home care Other Information That Helps Us Care for You: No Feels Safe at Home: Yes Safety Concerns: Feels Safe At This Time Assistive Devices: Mechanical Lift and Slide Board Review of Systems Gen- No fevers, chills or sweats HEENT- No HERNÁNDEZ or sore throat CV- No chest pain Resp - + cough and + SOB Abd- Positive abdominal pain and constipation - Neurogenic bladder with chronic indwelling suprapubic cath Neuro- Chronic quadriplegia Skin- No rash Physical Exam Gen- NAD, cooperative with exam HEENT- NAC AT, using face mask O2 Skin- No rash Neuro- Alert and oriented, quadriplegia Results & Data Vital Signs (Past 12 Hours) Vital Signs Temp Pulse Pulse Resp BP Pulse Ox O2 Del Method 01/30/24 12:22 36.4 C 70 18 123/76 94 Oxymask 01/30/24 10:57 63 24 94 Nasal Cannula 01/30/24 10:40 67 16 131/90 94 Nasal Cannula 01/30/24 08:33 68 01/30/24 08:30 85 18 97/63 L 92 Nasal Cannula 01/30/24 07:30 65 20 116/82 92 Nasal Cannula 01/30/24 07:22 67 17 95 Oxymask 01/30/24 06:27 60 15 104/74 96 Oxymask O2 Flow Rate 01/30/24 12:22 4 01/30/24 10:57 3 01/30/24 10:40 3 01/30/24 08:33 01/30/24 08:30 5 01/30/24 07:30 5 01/30/24 07:22 6 01/30/24 06:27 Laboratory Results WBC 9.56 Hgb 12.8 Platelets 228 Na 139 Creatinine 0.43 BUN 8 Lactate 1.6 ALT 8 T. bili 0.4 UA with >50 WBC, >20 RBC, yeast Diagnostic Findings RVP negative Urine culture 01/29/24 with yeast Sputum culture pending CT abdomen.pelvis: proctitis, fecal retention and RLL infiltrate/debris
[2024-01-30] MEDS: OPTIRAY 320 125ml IV ONE (14:20)
[2024-01-30] MEDS: POLYETHYLENE (MIRALAX) 17 GM PACK PO SCH (14:33)
--- NOTE | 2024-01-30 14:40 | CT Scan Report ---
CT ANGIOGRAPHY OF THE CHEST, PULMONARY EMBOLUS PROTOCOL CLINICAL HISTORY: Chest pain. Evaluate for pulmonary embolus. COMPARISON STUDY: Chest CT May 14, 2023. Chest radiograph January 29, 2024. TECHNIQUE: Following IV administration of 118 mL of Optiray, helical axial images of the chest were o btained utilizing the pulmonary embolus protocol. Maximal intensity projections and sagittal and cor onal reformats were viewed on an independent 3D workstation. IV contrast was administered without co mplication. Automated exposure control was utilized for the study. A dose lowering technique was ut ilized adhering to the principles of ALARA. CT DOSE: 912.17 mGy.cm FINDINGS: No pulmonary emboli are identified. There is no thoracic aortic dissection. Size of the he art is within normal limits. There is no pericardial effusion. No pneumothorax or pleural effusion is present. Moderate subpleural right lower lobe groundglass opacity is present. Otherwise, minimal sub pleural ground glass opacities are noted. Multifocal secretions/mucous within the right-sided airways are present. No central obstructing mass is noted. The gallbladder is surgically absent. IMPRESSION: 1. No pulmonary emboli identified. 2. Moderate subpleural right lower lobe groundglass opacities. This could reflect atelectasis. Howeve r, pneumonia or aspiration pneumonitis could appear similar, particularly given debris/mucus plugging within right lower lobe airways. ACT 112: Negative or not required by law. Electronically signed by: Teja Moreno M.D. 01/30/2024 2:38 PM
--- NOTE | 2024-01-30 16:39 | Billing Data ---
Date of Service January 30, 2024 Coding Level of Care Code 08291 IN/OBS CONSULT LVL 4,60M
[2024-01-30] MEDS: ONDANSETRON INJ 2 MG/ML 2 ML VIAL IV PRN (21:04)
[2024-01-30] MEDS: DOCUSATE SODIUM/SENNA 50/8.6MG TAB PO SCH (21:04)
[2024-01-30] MEDS: AMITRIPTYLINE HCL 25 MG TAB PO SCH (21:04)
[2024-01-30] MEDS: SODIUM CHLORIDE 0.9% NEBU SOLN 3 ML NEB SCH (22:21)
[2024-01-31] MEDS: bisacodyL 10 MG SUPP PR PRN (02:57)
[2024-01-31] MEDS: MIDODRINE HCL 10 MG TAB PO PRN (08:46)
[2024-01-31 09:24] LABS: Basophils # (auto) 0.07 K/uL (0.00-0.20); Eosinophils # (auto) 0.25 K/uL (0.00-0.50); Eosinophils % (auto) 3.4 %; Hematocrit (blood only) 40.2 % (42.0-52.0); Hemoglobin 12.5 g/dl (14.0-18.0); Immature Granulocytes # (auto) 0.01 K/uL (0.01-0.20); Immature Granulocytes % (auto) 0.1 %; Lymphocytes # (auto) 1.31 K/uL (1.20-3.40); Lymphocytes % (auto) 17.8 %; Mean Corpuscular Hemoglobin 26.9 pg (25.0-34.0); Mean Corpuscular Hgb Conc 31.1 g/dL (32.0-36.0); Mean Corpuscular Volume 86.5 fL (80.0-100.0); Mean Platelet Volume 9.5 fL (9.4-12.4); Monocytes # (auto) 0.53 K/uL (0.11-0.59); Monocytes % (auto) 7.2 %; Neutrophils # (auto) 5.18 K/uL (1.40-6.50); Neutrophils % (auto) 70.5 %; Platelet Count 237 K/uL (130-400); RDW Standard Deviation 50.7 fL (36.4-46.3); Red Blood Count 4.65 M/uL (4.70-6.10); White Blood Count 7.35 K/ul (4.8-10.8)
[2024-01-31 09:36] LABS: Anion Gap 5 (3-11); BUN Creatinine Ratio 8.7 (10-20); Blood Urea Nitrogen 4 mg/dl (6-23); Calcium 8.9 mg/dl (8.6-10.3); Carbon Dioxide 26 mmol/L (21-32); Chloride 110 mmol/L (98-107); Creatinine Clr Calc Pharmacy 188.5 ml/min; Est GFR (African American) > 150.0 ml/min; Est GFR (Non-African American) 133.5 ml/min; Glucose 109 mg/dl (70-99(Fasting)); Potassium 3.7 mmol/L (3.5-5.1); Sodium 141 mmol/L (136-145)
--- NOTE | 2024-01-31 10:46 | Pharmacy Report ---
Pharmacy PK ABX Note - Date of Service January 31, 2024 - Assessment and Plan Assessment 01/30: Reviewed vancomycin level, continue current regimen. MRSA nasal swab positive, urine culture growing quang albicans, ID consulted, recommending catheter exchange and no therapy required unless undergoing urinary instrumentation 01/29: 48 year old M receiving vancomycin and zosyn empirically. Possible sources in include pneumonia, UTI, chronic sacral wound. Urine cx pending but patient does have a suprapubic catheter in place and it is unclear whether this was exchanged prior to obtaining urine culture. MRSA nasal swab was ordered. ID consulted. Pertinent microbiologic data includes: history of MRSA and pseudomonas in prior cultures. Day # 1 of antimicrobial therapy. Plan Vancomycin * Patient is paralyzed from the neck down. Crcl may be overestimated due to this. Will keep regimen ordered by initiating pharmacist and get an level tomorrow morning to determine any necessary adjustments. * Loading dose: 1750 mg IV x 1 * Maintenance dose: 1250 mg IV every 8 hours * Regimen is predicted to achieve target AUC/BEATRIZ of 400-600 mg/L.hr * Repeat level if continued later this week or as clinically indicated. Pharmacy will continue to follow and will adjust dose/frequency as necessary. Thank you. Pharmacy has transitioned to AUC monitoring for vancomycin. AUC/BEATRIZ is the preferred PK/PD target and is associated with decreased risk of nephrotoxicity compared to traditional trough targets.
--- NOTE | 2024-01-31 14:25 | Hospitalist Progress Note ---
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 Abdominal pain Constipation Proctitis Patient presented with abdominal pain and constipation CT abdomen and pelvis shows moderate fecal retention and nonspecific proctitis No leukocytosis On bowel regimen, continue MiraLAX added On Zosyn's, continue. Plan to treat for plan to switch over to Augmentin for total of 7 days at discharge Aspiration pneumonitis CT abdomen pelvis on admission concerning for fluid/debris's within right lower lobe airways. MRSA nares positive Currently on Zosyn and vancomycin. Continue airway clearance therapy with hypertonic saline and DuoNebs, 4 times a day daily percussive vest treatment Speech evaluation - VFSS pending Plan for Augmentin of total of 7 days at nm Sacral ulcer stage IV CAT scan showing chronic osteomyelitis and was present in previous CAT scan Continue wound care antibiotics as above ID consulted; they do not recommend long-term IV antibiotics if wound is stable and no surgical intervention is planned. Recurrent UTI secondary to neurogenic bladder with chronic indwelling suprapubic catheter UA is again positive UA shows yeast. He was recently treated with Fluconazole for yeast in the urine on antibiotics as above. await ID input. History of saddle PE on Eliquis, continue COPD- ruled out ongoing tobacco abuse Pulmonology evaluated the patient; recommended to stop Breo Ellipta as there is no evidence of COPD. Chronic diastolic CHF monitor for volume overload history of HCV s/p treatment history of MRSA history of intermediate resistant Pseudomonas DVT prophylaxis on Eliquis disposition med/telemetry full code Discussed with patient's brother at bedside. He is also is power of trial attorney and caregiver Time spent evaluating patient, direct bedside care, chart review, placing orders, interpretation of diagnostic studies, discussion with consultants, patient, and family members, as well as other required patient management activities is 50 minutes Please note the above document was generated using voice recognition software. It may contain grammatical, syntax or spelling errors. Any formal questions or concerns about the content, text or information contained within the body of this dictation should be directly addressed to the provider for clarification Admission and Anticipated Discharge Date Admission Date: January 30, 2024 Subjective Patient seen and examined at bedside. He reports that he is feeling better compared to yesterday Abdomen is softer; denies any shortness of breath Vital signs stable and he is saturating well on room air Review of Systems Review of Systems: All systems reviewed & are unremarkable except as noted in Subjective Physical Exam Physical Exam: Constitutional: Alert oriented x 3; not in distress Respiratory: Bilateral clear breath sounds Cardiovascular: RRR, no murmur, no edema Vessels: no JVD or carotid bruit Chest: normal inspection of chest Abdomen: Mildly distended, soft, non-tender Skin: no rashes, warm and dry normal turgor Neurologic: PERRL, EOMI, accommodation nl, no face palsy, no dysarthria. Her extremities Psychiatric: A+Ox3, euthymic affect Results & Data Results & Data Vital Signs (Past 12 Hours) Vital Signs Temp Pulse Pulse Resp BP Pulse Ox O2 Del Method 01/31/24 11:48 36.6 C 51 L 18 140/91 95 Room Air 01/31/24 07:53 72 16 97 Room Air 01/31/24 07:30 36.4 C L 72 18 95/67 L 97 Room Air 01/31/24 07:21 72 01/31/24 05:21 36.5 C 44 L 15 124/79 91 Room Air
[2024-02-01 08:16] LABS: Basophils # (auto) 0.07 K/uL (0.00-0.20); Basophils % (auto) 0.7 %; Eosinophils # (auto) 0.23 K/uL (0.00-0.50); Eosinophils % (auto) 2.3 %; Hemoglobin 12.8 g/dl (14.0-18.0); Immature Granulocytes # (auto) 0.03 K/uL (0.01-0.20); Immature Granulocytes % (auto) 0.3 %; Lymphocytes # (auto) 1.57 K/uL (1.20-3.40); Mean Corpuscular Hemoglobin 26.9 pg (25.0-34.0); Mean Platelet Volume 9.5 fL (9.4-12.4); Monocytes # (auto) 0.98 K/uL (0.11-0.59); Neutrophils # (auto) 6.96 K/uL (1.40-6.50); Neutrophils % (auto) 70.7 %; Platelet Count 249 K/uL (130-400); RDW Coefficient of Variation 15.9 % (11.5-14.5); RDW Standard Deviation 48.7 fL (36.4-46.3); Red Blood Count 4.76 M/uL (4.70-6.10); White Blood Count 9.84 K/ul (4.8-10.8)
[2024-02-01 08:39] LABS: BUN Creatinine Ratio 6.7 (10-20); Calcium 9.3 mg/dl (8.6-10.3); Creatinine Clr Calc Pharmacy 108.2 ml/min; Est GFR (Non-African American) 101.8 ml/min; Potassium 3.8 mmol/L (3.5-5.1)
--- NOTE | 2024-02-01 09:58 | Electrocardiogram Report ---
Test Reason : Blood Pressure : / mmHG Vent. Rate : 075 BPM Atrial Rate : 075 BPM P-R Int : 186 ms QRS Dur : 090 ms QT Int : 416 ms P-R-T Axes : 037 013 018 degrees QTc Int : 464 ms Normal sinus rhythm Normal ECG When compared with ECG of 29-JAN-2024 19:47, No significant change was found Confirmed by Javier Morejon ([id number]) on 02/01/2024 9:58:33 AM Referred By: REFERRED SELF Confirmed By:Javier Morejon
--- NOTE | 2024-02-01 11:58 | Fluoroscopy Report ---
FL video swallow CLINICAL HISTORY: r/o aspiration TECHNIQUE: Video fluoroscopy of the pharyngeal region was performed as barium mixtures of varying con sistencies were administered to the patient by the speech pathologist. A formal esophagram was not pe rformed. Comparison: None available at the time of this dictation. FINDINGS: Total fluoroscopy time: 36 minutes. Radiation dose: 4.98 mGy. The patient swallowed the different barium consistencies without difficulty. Flash penetration withou t aspiration is seen with thin liquids. Pooling of barium was noted in the bilateral piriform sinuses and valleculae. IMPRESSION: Flash penetration without aspiration. Please see the speech pathology report for further details. ACT 112: Negative or not required by law. Electronically signed by: Shahid Peter M.D. 02/01/2024 11:57 AM
--- NOTE | 2024-02-01 12:51 | Discharge Summary ---
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, recurrent UTI secondary to neurogenic bladder with chronic indwelling suprapubic catheter, HCV s/p treatment, chronic anemia baseline hemoglobin 13, chronic sacral decubitus wounds and Osteomyelitis, chronic pain on narcotics, history of MRSA, history of intermediate resistant Pseudomonas per records, ongoing tobacco abuse smokes 1 pack a day, ongoing substance abuse states he uses cocaine and methamp hetamines 2-3 times a week and states he currently does not use that much to get withdrawal as per patient comes in because of abdominal pain and constipation and also in the ER was requiring oxygen and had a lot of cough. Patient complaining severe abdominal pain and spasms.When coughing having lot of back pain and abdominal pain per patient.. Did not move his bowels since yesterday. Uses stool softeners and suppositories but not working. Denies any nausea /vomiting. States he swallows okay. Has wounds on his upper chest wall says from his cigarettes ashes dropping down. Denies any headache. No blurred vision. No runny nose. Says earlier had chest pain that got resolved. States he lives with his family and and also has caregivers. Hemodynamically stable. Past medical history. As mentioned above past surgical history. Ankle surgery, neck surgery, urological procedures, arm surgery, appendectomy, leg abscess drainage/metatarsal surgery, cholecystectomy, cystoscopy, neck and lumbar fusion surgery. social history. Smokes 1 pack a day for last 31 years. Sometimes vapes nicotine THC and CBD as per epic. States he drinks 12 standard drinks in a month. Uses amphetamines marijuana and cocaine. Family history. Father had lung cancer. Mother had heart attack. Admission Exam Per Admitting Provider General- Not in acute distress Head- atraumatic Eyes- PERRL. ENT- oropharynx dry. poor dentition. Neck- supple, no JVD. Lungs- clear to auscultation no wheezing or crackles. Heart- regular rate and rhythm; no murmur, no gallop. Abdomen- normal bowel sounds, soft, nontender, no distension. supra pubic cath seen ,site is dry. Extremities- no pretibial edema, no erythema seen. Neuro- alert, oriented PERRL, no facial palsy; no dysarthria; can move upper extremities at his elbow Skin- burn wounds seen on upper anterior chest wall. stage IV sacral decubitus ulcers Principal Diagnosis Concern for aspiration pneumonitis/pneumonia Sacral ulcer stage IV, chronic Constipation and abdominal pain Discharge Exam Constitutional: Alert oriented x 3; not in distress Respiratory: Bilateral clear breath sounds Cardiovascular: RRR, no murmur, no edema Vessels: no JVD or carotid bruit Chest: normal inspection of chest Abdomen: Mildly distended, soft, non-tender Skin: no rashes, warm and dry normal turgor Neurologic: PERRL, EOMI, accommodation nl, no face palsy, no dysarthria. Paraplegia noted Sacral decubitus ulcer, stage 4, no erythema or tenderness noted. Psychiatric: A+Ox3, euthymic affect Discharge Data Allergies Allergy/AdvReac Type Severity Reaction Status Date / Time No Known Allergies Allergy Verified 01/29/24 21:32 Consultations 01/29/24 19:42 ED Decision to Admit Stat 01/30/24 08:00 Consult Gastroenterology Routine Consult Infectious Diseases Routine Consult Pulmonology Routine Ordered Studies 01/29/24 15:13 CT abd pelvis IV con only Stat 01/30/24 12:22 CT angio chest PE protocol Routine 02/01/24 11:00 FL video swallow Routine Hospital Course (1) Pneumonia: Per Prior attending with addendum: 48-year-old male with past med history significant for COPD, chronic diastolic CHF, 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 Abdominal pain Constipation Proctitis Patient presented with abdominal pain and constipation CT abdomen and pelvis shows moderate fecal retention and nonspecific proctitis No leukocytosis On bowel regimen, continue MiraLAX added On Zosyn's, continue. Plan to treat for plan to switch over to Augmentin for total of 7 days at discharge Aspiration pneumonitis CT abdomen pelvis on admission concerning for fluid/debris's within right lower lobe airways. MRSA nares positive Currently on Zosyn and vancomycin. Continue airway clearance therapy with hypertonic saline and DuoNebs, 4 times a day daily percussive vest treatment Speech evaluation - VFSS pending Plan for Augmentin of total of 7 days at dc Sacral ulcer stage IV CAT scan showing chronic osteomyelitis and was present in previous CAT scan Continue wound care antibiotics as above ID consulted; they do not recommend long-term IV antibiotics if wound is stable and no surgical intervention is planned. Recurrent UTI secondary to neurogenic bladder with chronic indwelling suprapubic catheter UA is again positive UA shows yeast. He was recently treated with Fluconazole for yeast in the uri ne on antibiotics as above. await ID input. History of saddle PE on Eliquis, continue COPD- ruled out ongoing tobacco abuse Pulmonology evaluated the patient; recommended to stop Breo Ellipta as there is no evidence of COPD. Chronic diastolic CHF monitor for volume overload history of HCV s/p treatment history of MRSA history of intermediate resistant Pseudomonas DVT prophylaxis on Eliquis disposition med/telemetry full code Discussed with patient's brother at bedside. He is also is power of traffic law attorney and caregiver Addendum 02/01/2024: Patient was seen and examined at bedside as a follow-up of constipation/abdominal pain, concern of aspiration pneumonitis/pneumonia. Patient does have chronic decubitus ulcer, does not look infected. No erythema or tenderness on exam. Patient reports his brother takes care of his wound and his wound has been getting better lately. Patient also states that he has 24/7 nursing care to help with his other medical needs. Patient is hemodynamically stable and would like to go home. ID consultation noted, appreciate recommendation. Patient reports moving bowels, eating okay, occasional nausea, no vomiting. No abdominal pain. Patient is being discharged with following instruction at the point of discharge: Follow-up with your primary care physician within a week time and likely you will need labs CBC/CMP/magnesium/phosphorus. You can take mozy-igh-asvvyac stool softener and laxatives with a goal of 1-2 bowel movements a day. You will be discharged on antibiotic for concern of aspiration pne umonia/pneumonitis, continue the course until completion. Follow-up wound care for your sacral decubitus ulcer. Take your medications as prescribed. Please make sure that you are able to get your medications today by calling your pharmacy before you leave the hospital so that your treatment continuity is not broken. Please note the above document was generated using voice recognition software. It may contain grammatical, syntax or spelling errors. Any formal questions or concerns about the content, text or information contained within the body of this dictation should be directly addressed to the provider for clarification Home Health Attestation I certify that this patient is under my care and that I, or a physicians assistant infant teacher working with me, had a face to-face encounter that meets the home health pvyr-eb-ozzw encounter requirements with this patient. The encounter with the patient was in whole, or in part, for the following medical condition, which is the primary reason for home health care (list medical condition): I certify that, based on my findings, the following services are medically necessary home health services: My clinical findings support the need for the above services because: Further, I certify that my clinical findings support that this patient is homebound (i.e. absences from home require considerable and taxing effort and are for medical reasons or muslim services or infrequently or of short durati on when for other reasons) because: Certification for Home Health Services: Based on the above findings, I certify that this patient is confined to the home and needs intermittent chcf care, physical therapy and/or speech therapy or continues to need occupational therapy. The patient is under my care, and I have initiated the establishment of the plan of care. This patient will be followed by a physician who will periodically review the plan of care. Total Time Total Time Spent Total Time Spent (In Minutes): 45 Discharge Plan Discharge Items Patient Disposition: Home - Self-Care Reason For Visit: ABDOMINAL PAIN, SACRAL WOUNDS,ASPIRATION PNEUMONIA Discharge Diagnosis: Concern for aspiration pneumonitis/pneumonia Sacral ulcer stage IV, chronic Constipation and abdominal pain Activity: Resume your previous activity Non-emergency contact: Primary Care Provider Call non-emergency contact if: you have any medication questions Follow-up/Referrals: Chay Aguilar DO [Primary Care Provider] - Diet: Heart Healthy Addtl Attending Provider Instructions: Follow-up with your primary care physician within a week time and likely you will need labs CBC/CMP/magnesium/phosphorus. You can take qlmq-hqf-mzsfobv stool softener and laxatives with a goal of 1-2 bowel movements a day. You will be discharged on antibiotic for concern of aspiration pneumonia/pneumonitis, continue the course until completion. Follow-up wound care for your sacral decubitus ulcer. Take your medications as prescribed. Please make sure that you are able to get your medications today by calling your pharmacy before you leave the hospital so that your treatment continuity is not broken. Pending Studies at Discharge: No Stand-Alone Forms: My [facility], Smoking Cessation Medications and DC Order Prescriptions: New baclofen 20 mg tablet 20 mg PO TID PRN (Reason: spasms) Qty: 60 0RF oxycodone 5 mg tablet 5 mg PO TID PRN (Reason: pain (scale score 7-10)) Qty: 9 0RF amoxicillin-pot clavulanate 875-125 mg tablet 1 tab PO BID 5 Days Qty: 10 0RF Probiotic 3 billion cell capsule 3,000 mmu cells PO DAILY 7 Days Qty: 7 0RF Rx Instructions: administer with a meal Continued celecoxib 200 mg capsule 200 mg PO DAILY PRN (Reason: Pain) famotidine 10 mg Tablet 10 mg PO AMHS oxybutynin chloride 10 mg Tablet Extended Release 24hr 10 mg PO DAILY sennosides-docusate sodium [Senokot-S] 8.6-50 mg Tablet 2 tab-cap PO HS Rx Instructions: hold for loose stool potassium chloride 20 mEq tablet,ER particles/crystals 20 meq PO AMHS amitriptyline 25 mg Tablet 25 mg PO HS bisacodyl 10 mg Suppository 10 mg KS AMPM lidocaine 5 % adhesive patch,medicated 1 patch topical DAILY PRN (Reason: Pain) docusate sodium 100 mg Capsule 100 mg PO BID PRN (Reason: Constipation) gabapentin 300 mg capsule 300 mg PO TID Rx Instructions: Take am, noon, hs hydroxyzine HCl 25 mg Tablet 25 mg PO DAILY PRN (Reason: Anxiety) gabapentin 100 mg Capsule 100 mg PO TID Rx Instructions: Take am, noon, hs simethicone [Simethicone-80] 80 mg Tablet,Chewable 80 mg PO TID midodrine 10 mg tablet 10 mg PO Q8 PRN (Reason: .sbp) budesonide-formoterol 160-4.5 mcg/actuation HFA aerosol inhaler 2 puff INHALATION BID lactulose 20 gram/30 mL Solution 20 g PO TID Spiriva Respimat 2.5 mcg/actuation mist 2 puff INHALATION QAM Eliquis 5 mg tablet 5 mg PO BID Movantik 25 mg Tablet 25 mg PO QAM Rx Instructions: must be taken on empty stomach; no food 1 hr after or 2-3 hrs before dose Naloxone 4 Mg/0.1ml 1 spray intranasal (ALT) DIRECTED PRN (Reason: opiod od) Rx Instructions: suspected opoid od, 1 spray into 1 nostril Sterile Water For Irrigation 1 ea NA BID Rx Instructions: 1 liter bottle x 2. Irrigate suprapubic cath bid and allow to drain with 60- 120 ml of sterile irrigant. ferrous sulfate 325 mg (65 mg iron) Tablet 325 mg PO DAILY collagenase clostridium histo. 250 unit/gram Ointment 1 applic TOPICAL DAILY Rx Instructions: apply to foot ulcers and cover dry bandage. Dakin's Solution 0.25 % Solution 1 irrig TOPICAL BID Rx Instructions: 1/2 strength, apply with packing. Use sterile wound wash 0.9% if dakins not available. duloxetine 60 mg Capsule, Delayed Rel Sprinkle 60 mg PO DAILY Discharge Orders: Discharge Order (Routine); Ordered 02/01/24 Ordered By: Ally Blount Admission Data Admit Date/Time: 01/30/24 00:54 Attending Provider: Ally Blount Admit Provider: Zeus Toro Primary Care Provider: Chay Aguilar Other Providers: Zeus Toro; Kwasi Huynh; Isauro Zapata; Omero Rubio; Chencho Miles I.; Bishnu Kilgore II; Abril Olivas; Rafael Romero; Alexander Hill; Catalina Blanton; Prem Mitchell
--- NOTE | 2024-02-01 14:55 | Electrocardiogram Report ---
Test Reason : Blood Pressure : / mmHG Vent. Rate : 075 BPM Atrial Rate : 075 BPM P-R Int : 172 ms QRS Dur : 080 ms QT Int : 406 ms P-R-T Axes : 023 -08 027 degrees QTc Int : 453 ms Normal sinus rhythm Normal ECG When compared with ECG of 31-JAN-2024 08:37, No significant change was found Confirmed by Javier Morejon ([id number]) on 02/01/2024 2:54:38 PM Referred By: REFERRED SELF Confirmed By:Javier Morejon
== END 2024-02-01 14:40 | disposition home or self-care (01) | DRG 177 ==
LOC: ED 14:57 → SUATTDRO 01-30 00:54 → EDINP 01-30 00:54 → 2W 01-30 01:15

== ENCOUNTER 2024-03-03 18:42 | Inpatient (IN) ==
--- NOTE | 2024-03-03 18:55 | Emergency Department Note ---
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 Patient reports that he had the pain following having to have a bowel movement where he needed to administer a suppository but was ultimately successful. He then reports that he had a similar need to move his bowels today and had mostly blood. Patient feels confident that this was from his rectum and not from his chronic sacral decubitus ulcer which she reports has been stable. As an aside, the patient reports having increasing cough and congestion where he is suspicious for pneumonia. On evaluation the patient is chronically ill-appearing no distress, afebrile stable vital signs. He appears clinically dry. Lungs with rhonchi bilateral lower lung forrester. He has a nondistended nontender abdomen. Suprapubic catheter is in place. Chronic sacral decubitus unstageable ulcer with no surrounding evidence of infection. There is no necrotic tissue. There is no purulent drainage. CXR with suspected bibasilar opacities per my preliminary independent interpretation. WBC and platelets within normal limits. H/H similar to prior. Chemistry without metabolic acidosis. Electrolytes and LFTs unremarkable. Lipase is normal. UA obtained from a new suprapubic catheter bag demonstrates leukoesterase, WBCs and 4+ bacteria with minimal epithelial cells. CT of the abdomen was performed and demonstrates nonobstructive renal calculi with no hydronephrosis or ureterolithiasis noted. No evidence of bowel obstruction. Description of chronic decubitus ulcer extending down to the inferior aspect of the sacrum appears stable and is unchanged. During the patient's observation, his O2 saturation was noted to decline to 88% and so was placed on 2 L nasal cannula. Lung bases CT demonstrate linear opacities which are suggestive of atelectasis though given the context of the patient's cough and congestion suspicious for pneumonia. Given the patient's complicated UTI and suspected pneumonia patient treated with plan for admission for further management. Case was discussed with [facility] who will evaluate the patient for admission. Further management per admitting team. Triage Nursing notes reviewed and agree them. Prior/external medical records reviewed Vital Signs: reviewed Differential diagnosis: Appendicitis, testicular torsion, infections, diverticulitis, UTI, obstruction, mesenteric ischemia, aortic pathology, inflammatory bowel disease, renal colic, PUD, pancreatitis, biliary pathology, hernia, volvulus, constipation, as well as other pathologies. ER treatment provided: See below. Diagnostics interpreted by me: Cardiac Monitoring: An order for continuous cardiac monitoring was placed and demonstrated normal sinus rhythm, 69 bpm, no ectopy. Laboratory studies: See below Imaging studies: See below Consultation(s): Case was discussed with [facility] who will evaluate the patient for admission. 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 Patient reports that he had the pain following having to have a bowel movement where he needed to administer a suppository but was ultimately successful. He then reports that he had a similar need to move his bowels today and had mostly blood. Patient feels confident that this was from his rectum and not from his chronic sacral decubitus ulcer which she reports has been stable. As an aside, the patient reports having increasing cough and congestion where he is suspicious for pneumonia. ROS: See above HPI for pertinent positives & negatives. A total of 10 systems reviewed and were otherwise negative. VITALS:See Below PHYSICAL EXAMINATION: GENERAL: Awake, alert, chronically ill appearing, in no distress HENT: Normocephalic, atraumatic. Oropharynx with dry mucous membranes and otherwise unremarkable. EYES: Normal conjunctiva. Sclera non-icteric. NECK: Supple. No nuchal rigidity. FROM. No JVD. RESPIRATORY: Rhonchi bilateral lower lung forrester and otherwise clear to auscultation. CARDIAC: Regular rate, normal rhythm. Extremities warm and well perfused. Pulses equal. ABDOMEN: Soft, non-distended. No tenderness to palpation. No rebound or guarding. Suprapubic catheter site c/di. MUSCULOSKELETAL: Chest examination reveals no tenderness. The back is symmetrical on inspection without obvious abnormality. There is no CVA tenderness to palpation. No joint edema. LOWER EXTREMITIES: Calves are equal size bilaterally and non-tender. No edema. No discoloration. NEURO: At baseline for chronic spastic quadriplegia. SKIN: Chronic sacral decubitus unstageable ulcer with no surrounding evidence of infection. There is no necrotic tissue. There is no purulent drainage. Pérez Rashid MD Past Med/Surg History Problem List (Updated 03/04/24 @ 04:06 by Pérez Rashid MD) Pneumonia (Acute) Complicated urinary tract infection (Acute) Change or removal of nonsurgical wound dressing Aspiration pneumonitis Acute hypoxemic respiratory failure (Acute) Chest pain (Acute) Pneumonia (Acute) Abdominal pain (Acute) Severe sepsis (Acute) MRSA carrier Pneumonia (Acute) Hypoxic respiratory failure (Acute) 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 Leg wound, right Leg wound, left History of pulmonary embolism Hypoxia (Acute) RSV (respiratory syncytial virus infection) Chronic pain Suprapubic catheter (Acute) Complicated UTI (urinary tract infection) (Acute) Sacral decubitus ulcer, stage IV (Acute) Chronic osteomyelitis of sacrum Paraplegia Surgical History No pertinent past surgical history Social History Smoking Status: Current every day smoker Tobacco Type: Cigarettes Cigarettes Per Day: 50-60; Second Hand Exposure: Yes; Do You Dip or Chew Tobacco: No; Tobacco Cessation Education Requested by Patient: No Hx Alcohol Use: No Hx Substance Use: Yes Last Used Substance: Unknown Last Used Substance Other:: 03/03/24 Preferred Language: Guinean Communication Ability: Effective Veneer Sander Required: No Beliefs That Will Affect Care: None Current Living Situation: Alone Current Living Situation Comment: alone with 28/02 home care Feels Safe at Home: Yes Safety Concerns: Feels Safe At This Time Assistive Devices: None Allergies Allergies Allergy/AdvReac Type Severity Reaction Status Date / Time No Known Allergies Allergy Verified 01/29/24 21:32 Home Meds Home Medications Medication Instructions Recorded Confirmed Naloxone 4 Mg/0.1ml 1 spray intranasal (ALT) 01/29/24 03/04/24 DIRECTED PRN opiod od Sterile Water For Irrigation 1 ea NA BID 01/29/24 03/04/24 amitriptyline 25 mg tablet 25 mg PO HS 01/29/24 03/04/24 apixaban 5 mg tablet (Eliquis) 5 mg PO AMHS 01/29/24 03/04/24 bisacodyl 10 mg rectal suppository 10 mg NV AMPM 01/29/24 03/04/24 budesonide-formoterol HFA 160 2 puff inhalation [facility] 01/29/24 03/04/24 mcg-4.5 mcg/actuation aerosol inhaler celecoxib 200 mg capsule 200 mg PO DAILY PRN Pain 01/29/24 03/04/24 collagenase clostridium histo. 250 1 applic topical DAILY 01/29/24 03/04/24 unit/gram topical ointment docusate sodium 100 mg capsule 100 mg PO BID PRN Constipation 01/29/24 03/04/24 duloxetine 60 mg capsule,delayed 60 mg PO QAM 01/29/24 03/04/24 release sprinkle ferrous sulfate 325 mg (65 mg 325 mg PO QDB 01/29/24 03/04/24 iron) tablet gabapentin 100 mg capsule 100 mg PO TID 01/29/24 03/04/24 gabapentin 300 mg capsule 300 mg PO TID 01/29/24 03/04/24 hydroxyzine HCl 25 mg tablet 25 mg PO DAILY PRN Anxiety 01/29/24 03/04/24 lactulose 20 gram/30 mL oral 20 g PO TID 01/29/24 03/04/24 solution lidocaine 5 % topical patch 1 patch topical DAILY PRN Pain 01/29/24 03/04/24 midodrine 10 mg tablet 10 mg PO TID PRN Hypotension 01/29/24 03/04/24 oxybutynin chloride 10 mg 10 mg PO QAM 01/29/24 03/04/24 tablet,extended release 24 hr potassium chloride 20 mEq 20 meq PO AMHS 01/29/24 03/04/24 tablet,extended release(part/cryst) sennosides 8.6 mg-docusate sodium 2 tab-cap PO HS 01/29/24 03/04/24 50 mg tablet (Senokot-S) simethicone 80 mg chewable tablet 80 mg PO TID 01/29/24 03/04/24 sodium hypochlorite 0.25 % 1 irrig topical BID 01/29/24 03/04/24 solution (Dakin's Solution) tiotropium bromide 2.5 2 puff inhalation QAM 01/29/24 03/04/24 mcg/actuation mist for inhalation (Spiriva Respimat) ascorbic acid (vitamin C) 500 mg 500 mg PO QAM 03/04/24 03/04/24 tablet (Vitamin C) famotidine 20 mg tablet 20 mg PO AMHS 03/04/24 03/04/24 melatonin 3 mg capsule 3 mg PO HS 03/04/24 03/04/24 pediatric multivitamin 1 tab PO DAILY 03/04/24 03/04/24 Previous Rx's Medication Instructions Recorded baclofen 20 mg tablet 20 mg PO TID PRN spasms #60 tabs 02/01/24 oxycodone 5 mg tablet 5 mg PO TID PRN pain (scale score 02/01/24 7-10) #9 tabs Results & Data (ED) Vital Signs Vital Signs - 24 hr 03/03/24 18:32 03/03/24 18:50 03/03/24 21:18 Temperature 37 C Temperature Source Oral Pulse Rate 62 63 69 Pulse Rate from SpO2 Sensor Pulse Rhythm Regular Pulse Strength Normal Respiratory Rate 18 22 Respiratory Effort / Characteristics Non-Labored Spontaneous Respiratory Depth Normal Respiratory Pattern Regular Blood Pressure 103/72 Blood Pressure [Left Arm] Blood Pressure Mean 82 Blood Pressure Mean [Left Arm] Blood Pressure Position Lying Blood Pressure Position [Left Arm] Pulse Oximetry 92 Oxygen Delivery Method Room Air Oxygen Flow Rate Sepsis Recent Fever Within 48 Hours No Sepsis New/Unexplained Change in Mental Status N/A Sepsis Action Taken by Nursing No Action Required Fraction of Inspired Oxygen - Titration Pulse Oximetry Post Tiitration 03/03/24 21:35 03/03/24 21:41 03/03/24 22:00 Temperature Temperature Source Pulse Rate Pulse Rate from SpO2 Sensor 70 Pulse Rhythm Pulse Strength Respiratory Rate 16 Respiratory Effort / Characteristics Respiratory Depth Respiratory Pattern Blood Pressure 110/77 108/74 Blood Pressure [Left Arm] Blood Pressure Mean 92 85 Blood Pressure Mean [Left Arm] Blood Pressure Position Blood Pressure Position [Left Arm] Pulse Oximetry 88 L 99 Oxygen Delivery Method Room Air Nasal Cannula Oxygen Flow Rate 2 Sepsis Recent Fever Within 48 Hours Sepsis New/Unexplained Change in Mental Status Sepsis Action Taken by Nursing Fraction of Inspired Oxygen - Titration 2 Pulse Oximetry Post Tiitration 92 03/03/24 23:15 03/04/24 01:10 Temperature Temperature Source Pulse Rate 57 L Pulse Rate from SpO2 Sensor Pulse Rhythm Pulse Strength Respiratory Rate 16 Respiratory Effort / Characteristics Non-Labored Spontaneous Respiratory Depth Normal Respiratory Pattern Blood Pressure Blood Pressure [Left Arm] 92/74 L Blood Pressure Mean Blood Pressure Mean [Left Arm] 80 Blood Pressure Position Blood Pressure Position [Left Arm] Lying Pulse Oximetry 98 Oxygen Delivery Method Room Air Oxygen Flow Rate Sepsis Recent Fever Within 48 Hours Sepsis New/Unexplained Change in Mental Status Sepsis Action Taken by Nursing Fraction of Inspired Oxygen - Titration Pulse Oximetry Post Tiitration Laboratory Data Attestation: I reviewed the patient's lab results. 03/03/24 19:05 03/03/24 19:05 Lab Results 03/03/24 03/03/24 03/04/24 Range/Units 19:05 20:20 00:27 WBC 8.63 (4.8-10.8) K/ul RBC 5.23 (4.70-6.10) M/uL Hgb 13.9 L (14.0-18.0) g/dl Hct 43.4 (42.0-52.0) % MCV 83.0 (80.0-100.0) fL MCH 26.6 (25.0-34.0) pg MCHC 32.0 (32.0-36.0) g/dL RDW Std Deviation 48.4 H (36.4-46.3) fL RDW Coeff of Adelia 15.9 H (11.5-14.5) % Plt Count 222 (130-400) K/uL MPV 10.1 (9.4-12.4) fL Immature Gran % (Auto) 0.3 % Neut % (Auto) 67.3 % Lymph % (Auto) 22.4 % [place] % (Auto) 6.0 % Eos % (Auto) 3.0 % Baso % (Auto) 1.0 % Neut # (Auto) 5.80 (1.40-6.50) K/uL Lymph # (Auto) 1.93 (1.20-3.40) K/uL [place] # (Auto) 0.52 (0.11-0.59) K/uL Eos # (Auto) 0.26 (0.00-0.50) K/uL Baso # (Auto) 0.09 (0.00-0.20) K/uL Immature Gran # (Auto) 0.03 (0.01-0.20) K/uL VBG pH (7.36-7.41) VBG pCO2 (38-50) mmHg VBG pO2 mmHg VBG HCO3 mmol/L VBG O2 Saturation % VBG Base Excess mEq/L Sodium 136 (136-145) mmol/L Potassium 3.9 (3.5-5.1) mmol/L Chloride 105 (98-107) mmol/L Carbon Dioxide 24 (21-32) mmol/L Anion Gap 7 (3-11) BUN 14 (6-23) mg/dl Creatinine 0.57 L (0.6-1.4) mg/dl Est Cr Clr Drug Dosing 178.6 ml/min Est GFR ( Amer) 141.7 ml/min Est GFR (Non-Af Amer) 122.3 ml/min BUN/Creatinine Ratio 24.6 H (10-20) Glucose 89 (70-99(Fasting)) mg/dl POC Glucose (70-99) mg/dl Lactate (0.4-2.0) mmol/L Calcium 10.2 (8.6-10.3) mg/dl Total Bilirubin 0.4 (0.2-1.0) mg/dl Direct Bilirubin 0.1 (0-0.2) mg/dl AST 26 (13-39) U/L ALT 14 (7-52) U/L Alkaline Phosphatase 164 H (34-104) U/L Ammonia (18-72) umol/L Total Protein 7.6 (6.0-8.3) gm/dl Albumin 4.3 (3.4-5.0) gm/dl Globulin 3.3 (2.5-4.0) gm/dl Albumin/Globulin Ratio 1.3 (0.9-2) Lipase 27 (11-82) U/L Procalcitonin (0-0.5) ng/ml TSH 1.409 (0.300-4.500) uIu/ml Urine Color Dark Yellow Urine Appearance Turbid A (Clear) Urine pH 5.0 (4.5-7.5) Ur Specific [place] 1.030 (1.000-1.030) Urine Protein 1+ H (Negative) Urine Glucose (UA) Negative (Negative) Urine Ketones Trace H (Negative) Urine Blood 3+ H (Negative) Urine Nitrite Negative (Negative) Urine Bilirubin 1+ H (Negative) Urine Urobilinogen Negative (Negative) Ur Leukocyte Esterase 3+ H (Negative) Urine WBC (Auto) >50 H (0-5) /hpf Urine RBC (Auto) >20 H (0-2) /hpf U Hyaline Cast (Auto) >20 H (0-2) /lpf U Epithel Cells (Auto) 0-2 (0-2) /hpf Urine Bacteria (Auto) 4+ H (None Seen) Calcium Oxalate Crystal Present A (None Prsent) Nasal Screen MRSA (PCR) Positive A (Negative) Urine Opiates Screen (Neg) Ur Methadone, Qual (Neg) Urine Fentanyl Screen (Neg) Urine Barbiturates (Neg) Ur Phencyclidine (PCP) (Neg) U Amphetamin/Meth Scrn (Neg) MDMA (Ecstasy) Screen (Neg) U Benzodiazepines Scrn (Neg) Ur Cocaine Metabolite (Neg) U Marijuana (THC) Screen (Neg) 03/04/24 03/04/24 03/04/24 Range/Units 00:40 01:20 01:22 WBC (4.8-10.8) K/ul RBC (4.70-6.10) M/uL Hgb (14.0-18.0) g/dl Hct (42.0-52.0) % MCV (80.0-100.0) fL MCH (25.0-34.0) pg MCHC (32.0-36.0) g/dL RDW Std Deviation (36.4-46.3) fL RDW Coeff of Adelia (11.5-14.5) % Plt Count (130-400) K/uL MPV (9.4-12.4) fL Immature Gran % (Auto) % Neut % (Auto) % Lymph % (Auto) % Sab[place] % (Auto) % Eos % (Auto) % Baso % (Auto) % Neut # (Auto) (1.40-6.50) K/uL Lymph # (Auto) (1.20-3.40) K/uL [place] # (Auto) (0.11-0.59) K/uL Eos # (Auto) (0.00-0.50) K/uL Baso # (Auto) (0.00-0.20) K/uL Immature Gran # (Auto) (0.01-0.20) K/uL VBG pH 7.40 (7.36-7.41) VBG pCO2 39 (38-50) mmHg VBG pO2 68 mmHg VBG HCO3 24 mmol/L VBG O2 Saturation 95.8 % VBG Base Excess -0.5 mEq/L Sodium (136-145) mmol/L Potassium (3.5-5.1) mmol/L Chloride (98-107) mmol/L Carbon Dioxide (21-32) mmol/L Anion Gap (3-11) BUN (6-23) mg/dl Creatinine (0.6-1.4) mg/dl Est Cr Clr Drug Dosing ml/min Est GFR ( Amer) ml/min Est GFR (Non-Af Amer) ml/min BUN/Creatinine Ratio (10-20) Glucose (70-99(Fasting)) mg/dl POC Glucose 108 H (70-99) mg/dl Lactate 1.5 (0.4-2.0) mmol/L Calcium (8.6-10.3) mg/dl Total Bilirubin (0.2-1.0) mg/dl Direct Bilirubin (0-0.2) mg/dl AST (13-39) U/L ALT (7-52) U/L Alkaline Phosphatase (34-104) U/L Ammonia 24.0 (18-72) umol/L Total Protein (6.0-8.3) gm/dl Albumin (3.4-5.0) gm/dl Globulin (2.5-4.0) gm/dl Albumin/Globulin Ratio (0.9-2) Lipase (11-82) U/L Procalcitonin 0.07 (0-0.5) ng/ml TSH (0.300-4.500) uIu/ml Urine Color Urine Appearance (Clear) Urine pH (4.5-7.5) Ur Specific [place] (1.000-1.030) Urine Protein (Negative) Urine Glucose (UA) (Negative) Urine Ketones (Negative) Urine Blood (Negative) Urine Nitrite (Negative) Urine Bilirubin (Negative) Urine Urobilinogen (Negative) Ur Leukocyte Esterase (Negative) Urine WBC (Auto) (0-5) /hpf Urine RBC (Auto) (0-2) /hpf U Hyaline Cast (Auto) (0-2) /lpf U Epithel Cells (Auto) (0-2) /hpf Urine Bacteria (Auto) (None Seen) Calcium Oxalate Crystal (None Prsent) Nasal Screen MRSA (PCR) (Negative) Urine Opiates Screen Pos H (Neg) Ur Methadone, Qual Neg (Neg) Urine Fentanyl Screen Neg (Neg) Urine Barbiturates Neg (Neg) Ur Phencyclidine (PCP) Neg (Neg) U Amphetamin/Meth Scrn Neg (Neg) MDMA (Ecstasy) Screen Neg (Neg) U Benzodiazepines Scrn Neg (Neg) Ur Cocaine Metabolite Pos H (Neg) U Marijuana (THC) Screen Pos H (Neg) Administered Medications Potassium Chloride/Sodium Chloride (Normal Saline W/20 Meq Kcl) 20 meq in 1,000 mls @ 100 mls/hr IV .Q10H STA; Protocol Stop: 03/04/24 11:18 Last Admin: 03/04/24 02:49 Dose: 100 mls/hr Documented By: DAVIDA Discontinued Medications Sodium Chloride (Nss) 1,000 mls @ 999 mls/hr IV .Q1H1M ONE Stop: 03/03/24 19:53 Last Infusion: 03/03/24 21:43 Dose: Infused Documented By: Admin: 03/03/24 20:19 Dose: 999 mls/hr Documented By: ROSETTE Acetaminophen (Ofirmev) 1,000 mg in 100 mls @ 400 mls/hr IV NOW STA Stop: 03/03/24 20:19 Last Infusion: 03/03/24 21:43 Dose: Infused Documented By: Admin: 03/03/24 21:18 Dose: 400 mls/hr Documented By: ROSETTE Famotidine (Pepcid 20mg Iv Push) 20 mg in 5 mls @ 2.5 mls/min IV NOW STA Stop: 03/03/24 20:06 Last Admin: 03/03/24 21:18 Dose: 2.5 mls/min Documented By: ROSETTE Sodium Chloride (Nss) 1,000 mls @ 999 mls/hr IV .Q1H1M ONE Stop: 03/04/24 01:04 Last Admin: 03/04/24 01:11 Dose: 999 mls/hr Documented By: DAVIDA Piperacillin Sod/Tazobactam Sod (Zosyn) 4.5 gm in 100 mls @ 200 mls/hr IV NOW ONE Stop: 03/04/24 00:33 Last Infusion: 03/04/24 01:53 Dose: Infused Documented By: Admin: 03/04/24 01:07 Dose: 200 mls/hr Documented By: DAVIDA Vancomycin HCl 2,250 mg/ (Sodium Chloride) 545 mls @ 200 mls/hr IV NOW ONE Stop: 03/04/24 02:47 Last Admin: 03/04/24 02:49 Dose: 200 mls/hr Documented By: DAVIDA Meropenem 500 mg/ Syringe 10 mls @ 2 mls/min IV NOW STA; Protocol Stop: 03/04/24 00:59 Last Admin: 03/04/24 01:10 Dose: 2 mls/min Documented By: DAVIDA Ioversol (Optiray 320 100ml) 92 ml IV ONCE ONE Stop: 03/03/24 20:56 Last Admin: 03/03/24 20:55 Dose: 92 ml Documented By: AMY Naloxone HCl (Naloxone Hcl 0.4 Mg/1 Ml Vial/Carp) 0.4 mg IV NOW STA Stop: 03/04/24 01:31 Last Admin: 03/04/24 02:06 Dose: 0.4 mg Documented By: DAVIDA Ondansetron HCl (Ondansetron Inj 2 Mg/Ml 2 Ml Vial) 4 mg IV NOW STA Stop: 03/03/24 20:06 Last Admin: 03/03/24 21:18 Dose: 4 mg Documented By: O Imaging Data Radiologist's Impression: Abdomen/Pelvis CT 03/03/24 20:04 Exam(s): CT ABDOMEN + PELVIS With Contrast IV Amt: 92 cc opit 320 EXAM: CT Abdomen and Pelvis With Intravenous Contrast CLINICAL HISTORY: Reason for exam: abdominal pain. TECHNIQUE: Axial computed tomography images of the abdomen and pelvis with intravenous contrast. CTDI is 26.88 mGy and DLP is 1493.88 mGy-cm. Automated exposure control was utilized for the study. A dose lowering technique was utilized adhering to the principles of ALARA. CONTRAST: Patient received 92 cc Optiray 320 of IV contrast COMPARISON: January 29, 2024 FINDINGS: Lung bases: Scattered bibasilar atelectasis. ABDOMEN: Liver: Unremarkable. No mass. Gallbladder and bile ducts: Mild biliary duct prominence postcholecystectomy. No choledocholithiasis is seen. Pancreas: Unremarkable. No mass. No ductal dilation. Spleen: Unremarkable. No splenomegaly. Adrenals: Unremarkable. No mass. Kidneys and ureters: There are nonobstructive renal calyceal calculi in the left kidney measuring 1.5 cm in the lower pole and 6 mm in the mid kidney. No hydronephrosis or ureterolithiasis is seen involving either kidney. Stomach and bowel: Unremarkable. No obstruction. No mucosal thickening. PELVIS: Appendix: The appendix is not visible. Bowel loops are nondilated. No acute inflammatory changes are seen involving the bowel. Bladder: The urinary bladder is decompressed by a suprapubic catheter. Reproductive: Unremarkable as visualized. ABDOMEN and PELVIS: Intraperitoneal space: Unremarkable. No free air. No significant fluid collection. Bones/joints: There is a chronic decubitus ulcer extending down to the inferior aspect of the sacrum which appears stable and unchanged since previous. No acute fracture. No dislocation. Soft tissues: Unremarkable. Vasculature: Unremarkable. No abdominal aortic aneurysm. Lymph nodes: Unremarkable. No enlarged lymph nodes. IMPRESSION: 1. There are nonobstructive renal calyceal calculi in the left kidney measuring 1.5 cm in the lower pole and 6 mm in the mid kidney. No hydronephrosis or ureterolithiasis is seen involving either kidney. 2. The appendix is not visible. Bowel loops are nondilated. No acute inflammatory changes are seen involving the bowel. 3. There is a chronic decubitus ulcer extending down to the inferior aspect of the sacrum which appears stable and unchanged since previous. Electronically signed by: Cooper Miles MD 03/03/24 23:45 PM Discharge Plan Visit Data Chief Complaint: Abdominal Pain Stated Complaint: AB PAIN ED Provider: Pérez Rashid Discharge Problem: Complicated urinary tract infection, Suprapubic catheter, Pneumonia, Sacral decubitus ulcer, stage IV Discharge Instructions Interventions: ED Discharge Assessment Last Done: 03/04/24 03:07 Discharge Problem: Pneumonia Qualifiers: Pneumonia type: due to unspecified organism Laterality: bilateral Lung location: lower lobe of lung Qualified Code(s): J18.9 - Pneumonia, unspecified organism
[2024-03-03 19:31] LABS: Basophils # (auto) 0.09 K/uL (0.00-0.20); Eosinophils # (auto) 0.26 K/uL (0.00-0.50); Hematocrit (blood only) 43.4 % (42.0-52.0); Hemoglobin 13.9 g/dl (14.0-18.0); Immature Granulocytes # (auto) 0.03 K/uL (0.01-0.20); Immature Granulocytes % (auto) 0.3 %; Lymphocytes # (auto) 1.93 K/uL (1.20-3.40); Lymphocytes % (auto) 22.4 %; Mean Corpuscular Hemoglobin 26.6 pg (25.0-34.0); Mean Platelet Volume 10.1 fL (9.4-12.4); Monocytes # (auto) 0.52 K/uL (0.11-0.59); Neutrophils % (auto) 67.3 %; Platelet Count 222 K/uL (130-400); RDW Coefficient of Variation 15.9 % (11.5-14.5); RDW Standard Deviation 48.4 fL (36.4-46.3); Red Blood Count 5.23 M/uL (4.70-6.10); White Blood Count 8.63 K/ul (4.8-10.8)
[2024-03-03 19:50] LABS: Albumin Globulin Ratio 1.3 (0.9-2); Albumin Level 4.3 gm/dl (3.4-5.0); BUN Creatinine Ratio 24.6 (10-20); Bilirubin Direct 0.1 mg/dl (0-0.2); Bilirubin,Total 0.4 mg/dl (0.2-1.0); Calcium 10.2 mg/dl (8.6-10.3); Creatinine Clr Calc Pharmacy 178.6 ml/min; Est GFR (African American) 141.7 ml/min; Est GFR (Non-African American) 122.3 ml/min; Globulin 3.3 gm/dl (2.5-4.0); Potassium 3.9 mmol/L (3.5-5.1); Total Protein 7.6 gm/dl (6.0-8.3)
[2024-03-03] MEDS: SODIUM CHLORIDE 0.9% 1,000 ML IV ONE (20:19)
[2024-03-03 20:45] LABS: Appearance Urine Turbid (Clear); Bacteria Urine Automated 4+ (None Seen); Bilirubin Urine 1+ (Negative); Blood Urine 3+ (Negative); Calcium Oxalate Crystals Urine Present (None Prsent); Cast Urine Automated >20 /lpf (0-2); Color Urine Dark Yellow; Epithelial Cell Urine Auto 0-2 /hpf (0-2); Glucose Urine UA Negative (Negative); Ketones Urine Trace (Negative); Leukocyte Esterase Urine 3+ (Negative); Nitrite Urine Negative (Negative); Protein Urine 1+ (Negative); RBC Urine Automated >20 /hpf (0-2); Urobilinogen Urine Negative (Negative); WBC Urine Automated >50 /hpf (0-5)
[2024-03-03] MEDS: OPTIRAY 320 100ml IV ONE (20:55)
[2024-03-03] MEDS: ONDANSETRON INJ 2 MG/ML 2 ML VIAL IV STA (21:18)
[2024-03-03] MEDS: FAMOTIDINE 20MG IV PUSH 20 MG/5 ML SYR IV STA (21:18)
[2024-03-03] MEDS: ACETAMINOPHEN 1,000 MG/100 ML VIAL IV STA (21:18)
--- NOTE | 2024-03-03 23:46 | CT Scan Report ---
Exam(s): CT ABDOMEN + PELVIS With Contrast IV Amt: 92 cc opit 320 EXAM: CT Abdomen and Pelvis With Intravenous Contrast CLINICAL HISTORY: Reason for exam: abdominal pain. TECHNIQUE: Axial computed tomography images of the abdomen and pelvis with intravenous contrast. CTDI is 26.88 mGy and DLP is 1493.88 mGy-cm. Automated exposure control was utilized for the study. A dose lowering technique was utilized adhering to the principles of ALARA. CONTRAST: Patient received 92 cc Optiray 320 of IV contrast COMPARISON: January 29, 2024 FINDINGS: Lung bases: Scattered bibasilar atelectasis. ABDOMEN: Liver: Unremarkable. No mass. Gallbladder and bile ducts: Mild biliary duct prominence postcholecystectomy. No choledocholithiasis is seen. Pancreas: Unremarkable. No mass. No ductal dilation. Spleen: Unremarkable. No splenomegaly. Adrenals: Unremarkable. No mass. Kidneys and ureters: There are nonobstructive renal calyceal calculi in the left kidney measuring 1.5 cm in the lower pole and 6 mm in the mid kidney. No hydronephrosis or ureterolithiasis is seen involving either kidney. Stomach and bowel: Unremarkable. No obstruction. No mucosal thickening. PELVIS: Appendix: The appendix is not visible. Bowel loops are nondilated. No acute inflammatory changes are seen involving the bowel. Bladder: The urinary bladder is decompressed by a suprapubic catheter. Reproductive: Unremarkable as visualized. ABDOMEN and PELVIS: Intraperitoneal space: Unremarkable. No free air. No significant fluid collection. Bones/joints: There is a chronic decubitus ulcer extending down to the inferior aspect of the sacrum which appears stable and unchanged since previous. No acute fracture. No dislocation. Soft tissues: Unremarkable. Vasculature: Unremarkable. No abdominal aortic aneurysm. Lymph nodes: Unremarkable. No enlarged lymph nodes. IMPRESSION: 1. There are nonobstructive renal calyceal calculi in the left kidney measuring 1.5 cm in the lower pole and 6 mm in the mid kidney. No hydronephrosis or ureterolithiasis is seen involving either kidney. 2. The appendix is not visible. Bowel loops are nondilated. No acute inflammatory changes are seen involving the bowel. 3. There is a chronic decubitus ulcer extending down to the inferior aspect of the sacrum which appears stable and unchanged since previous. Electronically signed by: Cooper Miles MD 03/03/24 23:45 PM
[2024-03-04] MEDS ORDERED: VANCOMYCIN CONSULT ACTIVE PRN (00:04)
--- NOTE | 2024-03-04 00:57 | History & Physical Report ---
Date of Service March 04, 2024 Assessment & Plan (1) Encephalopathy: Plan: History of substance abuse Patient family possibly complicit. 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) HCV status post Rx chronic anemia, hemoglobin at baseline chronic sacral decubitus/leg osteomyelitis hx substance abuse as per records functional disability ongoing tobacco abuse Hx MRSA Admit to medical telemetry Narcan 1 dose check urine drug screen Appropriate to hold home narcotics for now, neuropsychotropic, antispasmodic medications given current encephalopathy Meropenem for now for aspiration pneumonitis and complicated UTI in light of micro history Aspiration precautions, Urine drug screen, PT OT eval once medically stable Nicotine patch as needed DVT prophylaxis. Eliquis Full code Patient's sister requesting updates for providers. Ms. Lyn Briggs, [phone]. Total critical care time was 40 minutes. Text document was generated using [employer] voice recognition software. It may contain grammatical or spelling errors. Kindly contact undersigned for clarification of any documentation item in question. History of Present Illness Chief Complaint: Abdominal pain as per records Primary Care Provider: Chay Goins Capp, DO History obtained from patient, ED provider and records. 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 Recent [facility] confinement last month for aspiration pneumonitis/pneumonia. Patient discharged on Augmentin course. Recent [facility] ER visit 3 weeks ago for medical clearance for bedsores prior to incarceration. Patient suprapubic catheter changed before discharge from the ER as per note. Patient had achy abdominal pain yesterday associated with constipation symptoms. Patient denies chest pain, SOB, headache, bleeding. Junky cough symptoms as per ED provider. Patient brought to ER for evaluation. Vancomycin and Zosyn administered at the ER. Transient hypoxemia O2 sats 80s noted at the ER. Patient later noted to be obtunded by staff after visit from family. Medical History as above Surgical History : Ankle surgery, neck surgery, urologic procedures, arm surgery, appendectomy, leg abscess drainage/metatarsal surgery, cholecystectomy Family History : Heart disease Personal/Social history : 2 packs daily, occasional EtOH intake, disabled Allergies Allergy/AdvReac Type Severity Reaction Status Date / Time No Known Allergies Allergy Verified 01/29/24 21:32 Home Medications Medication Instructions Recorded Confirmed Type Naloxone 4 Mg/0.1ml 1 spray intranasal (ALT) 01/29/24 03/04/24 History DIRECTED PRN opiod od Sterile Water For Irrigation 1 ea NA BID 01/29/24 03/04/24 History amitriptyline 25 mg tablet 25 mg PO HS 01/29/24 03/04/24 History apixaban 5 mg tablet (Eliquis) 5 mg PO AMHS 01/29/24 03/04/24 History bisacodyl 10 mg rectal suppository 10 mg NE AMPM 01/29/24 03/04/24 History budesonide-formoterol HFA 160 2 puff inhalation AMHS 01/29/24 03/04/24 History mcg-4.5 mcg/actuation aerosol inhaler celecoxib 200 mg capsule 200 mg PO DAILY PRN Pain 01/29/24 03/04/24 History collagenase clostridium histo. 250 1 applic topical DAILY 01/29/24 03/04/24 History unit/gram topical ointment docusate sodium 100 mg capsule 100 mg PO BID PRN Constipation 01/29/24 03/04/24 History duloxetine 60 mg capsule,delayed 60 mg PO QAM 01/29/24 03/04/24 History release sprinkle ferrous sulfate 325 mg (65 mg 325 mg PO QDB 01/29/24 03/04/24 History iron) tablet gabapentin 100 mg capsule 100 mg PO TID 01/29/24 03/04/24 History gabapentin 300 mg capsule 300 mg PO TID 01/29/24 03/04/24 History hydroxyzine HCl 25 mg tablet 25 mg PO DAILY PRN Anxiety 01/29/24 03/04/24 History lactulose 20 gram/30 mL oral 20 g PO TID 01/29/24 03/04/24 History solution lidocaine 5 % topical patch 1 patch topical DAILY PRN Pain 01/29/24 03/04/24 History midodrine 10 mg tablet 10 mg PO TID PRN Hypotension 01/29/24 03/04/24 History oxybutynin chloride 10 mg 10 mg PO QAM 01/29/24 03/04/24 History tablet,extended release 24 hr potassium chloride 20 mEq 20 meq PO AMHS 01/29/24 03/04/24 History tablet,extended release(part/cryst) sennosides 8.6 mg-docusate sodium 2 tab-cap PO HS 01/29/24 03/04/24 History 50 mg tablet (Senokot-S) simethicone 80 mg chewable tablet 80 mg PO TID 01/29/24 03/04/24 History sodium hypochlorite 0.25 % 1 irrig topical BID 01/29/24 03/04/24 History solution (Dakin's Solution) tiotropium bromide 2.5 2 puff inhalation QAM 01/29/24 03/04/24 History mcg/actuation mist for inhalation (Spiriva Respimat) baclofen 20 mg tablet 20 mg PO TID PRN spasms #60 tabs 02/01/24 03/04/24 Rx oxycodone 5 mg tablet 5 mg PO TID PRN pain (scale score 02/01/24 03/04/24 Rx 7-10) #9 tabs ascorbic acid (vitamin C) 500 mg 500 mg PO QAM 03/04/24 03/04/24 History tablet (Vitamin C) famotidine 20 mg tablet 20 mg PO AMHS 03/04/24 03/04/24 History melatonin 3 mg capsule 3 mg PO HS 03/04/24 03/04/24 History pediatric multivitamin 1 tab PO DAILY 03/04/24 03/04/24 History Past Med/Surg History Problem List (Updated 03/04/24 @ 11:43 by Corky Yadav MD) Encephalopathy Pneumonia (Acute) Complicated urinary tract infection (Acute) Change or removal of nonsurgical wound dressing Aspiration pneumonitis Acute hypoxemic respiratory failure (Acute) Chest pain (Acute) Pneumonia (Acute) Abdominal pain (Acute) Severe sepsis (Acute) MRSA carrier Pneumonia (Acute) Hypoxic respiratory failure (Acute) 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 Leg wound, right Leg wound, left History of pulmonary embolism Hypoxia (Acute) RSV (respiratory syncytial virus infection) Chronic pain Suprapubic catheter (Acute) Complicated UTI (urinary tract infection) (Acute) Sacral decubitus ulcer, stage IV (Acute) Chronic osteomyelitis of sacrum Paraplegia Surgical History No pertinent past surgical history Social History Smoking Status: Current every day smoker Tobacco Type: Cigarettes Cigarettes Per Day: 50-60; Second Hand Exposure: Yes; Do You Dip or Chew Tobacco: No; Tobacco Cessation Education Requested by Patient: No Hx Alcohol Use: No Hx Substance Use: Yes Last Used Substance: Unknown Last Used Substance Other:: 03/03/24 Preferred Language: Occitan Communication Ability: Effective 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: No Beliefs That Will Affect Care: None Current Living Situation: Alone Current Living Situation Comment: alone with 28/02 home care Feels Safe at Home: Yes Safety Concerns: Feels Safe At This Time Assistive Devices: None Review of Systems Review of Systems: Could not be reliably obtained secondary to obtunded state Physical Exam Physical Exam: GENERAL: Obtunded, looks older than stated age, no respiratory distress SKIN: Pallor, warm HEENT: Alopecia, pale palpebral conjunctivae, no ptosis, dry buccal mucosa NECK : Some limitation in motion, no tenderness CHEST : Decreased breath sounds, no tenderness HEART : Bradycardic, no obvious murmurs ABDOMEN: Some distention, hypogastric tenderness EXTREMITIES : Minimal LE swelling/tenderness, posterior surfaces not examined NEUROLOGIC : Obtunded, miotic pupils, no facial asymmetry, MMTs could not be done Results & Data Results & Data Vital Signs (Past 12 Hours) Vital Signs Temp Pulse Resp BP Pulse Ox O2 Del Method O2 Flow Rate 03/03/24 23:15 57 L 03/03/24 22:00 16 108/74 99 Nasal Cannula 2 03/03/24 21:41 88 L Room Air 03/03/24 21:35 110/77 03/03/24 21:18 69 22 03/03/24 18:50 63 03/03/24 18:32 37 C 62 18 103/72 92 Room Air Laboratory Results Laboratory Results WBC 8.63 K/ul (4.8-10.8) 03/03/24 19:05 RBC 5.23 M/uL (4.70-6.10) 03/03/24 19:05 Hgb 13.9 g/dl (14.0-18.0) L 03/03/24 19:05 Hct 43.4 % (42.0-52.0) 03/03/24 19:05 MCV 83.0 fL (80.0-100.0) 03/03/24 19:05 MCH 26.6 pg (25.0-34.0) 03/03/24 19:05 MCHC 32.0 g/dL (32.0-36.0) 03/03/24 19:05 RDW Std Deviation 48.4 fL (36.4-46.3) H 03/03/24 19:05 RDW Coeff of [place] 15.9 % (11.5-14.5) H 03/03/24 19:05 Plt Count 222 K/uL (130-400) 03/03/24 19:05 MPV 10.1 fL (9.4-12.4) 03/03/24 19:05 Immature Gran % (Auto) 0.3 % 03/03/24 19:05 Neut % (Auto) 67.3 % 03/03/24 19:05 Lymph % (Auto) 22.4 % 03/03/24 19:05 [place] % (Auto) 6.0 % 03/03/24 19:05 Eos % (Auto) 3.0 % 03/03/24 19:05 Baso % (Auto) 1.0 % 03/03/24 19:05 Neut # (Auto) 5.80 K/uL (1.40-6.50) 03/03/24 19:05 Lymph # (Auto) 1.93 K/uL (1.20-3.40) 03/03/24 19:05 [place] # (Auto) 0.52 K/uL (0.11-0.59) 03/03/24 19:05 Eos # (Auto) 0.26 K/uL (0.00-0.50) 03/03/24 19:05 Baso # (Auto) 0.09 K/uL (0.00-0.20) 03/03/24 19:05 Immature Gran # (Auto) 0.03 K/uL (0.01-0.20) 03/03/24 19:05 Sodium 136 mmol/L (136-145) 03/03/24 19:05 Potassium 3.9 mmol/L (3.5-5.1) 03/03/24 19:05 Chloride 105 mmol/L (98-107) 03/03/24 19:05 Carbon Dioxide 24 mmol/L (21-32) 03/03/24 19:05 Anion Gap 7 (3-11) 03/03/24 19:05 BUN 14 mg/dl (6-23) 03/03/24 19:05 Creatinine 0.57 mg/dl (0.6-1.4) L 03/03/24 19:05 Est Cr Clr Drug Dosing 178.6 ml/min 03/03/24 19:05 Est GFR ( Amer) 141.7 ml/min 03/03/24 19:05 Est GFR (Non-Af Amer) 122.3 ml/min 03/03/24 19:05 BUN/Creatinine Ratio 24.6 (10-20) H 03/03/24 19:05 Glucose 89 mg/dl (70-99(Fasting)) 03/03/24 19:05 Calcium 10.2 mg/dl (8.6-10.3) 03/03/24 19:05 Total Bilirubin 0.4 mg/dl (0.2-1.0) 03/03/24 19:05 Direct Bilirubin 0.1 mg/dl (0-0.2) 03/03/24 19:05 AST 26 U/L (13-39) 03/03/24 19:05 ALT 14 U/L (7-52) 03/03/24 19:05 Alkaline Phosphatase 164 U/L (34-104) H 03/03/24 19:05 Total Protein 7.6 gm/dl (6.0-8.3) 03/03/24 19:05 Albumin 4.3 gm/dl (3.4-5.0) 03/03/24 19:05 Globulin 3.3 gm/dl (2.5-4.0) 03/03/24 19:05 Albumin/Globulin Ratio 1.3 (0.9-2) 03/03/24 19:05 Lipase 27 U/L (11-82) 03/03/24 19:05 Urine Color Dark Yellow 03/03/24 20:20 Urine Appearance Turbid (Clear) A 03/03/24 20:20 Urine pH 5.0 (4.5-7.5) 03/03/24 20:20 Ur Specific [place] 1.030 (1.000-1.030) 03/03/24 20:20 Urine Protein 1+ (Negative) H 03/03/24 20:20 Urine Glucose (UA) Negative (Negative) 03/03/24 20:20 Urine Ketones Trace (Negative) H 03/03/24 20:20 Urine Blood 3+ (Negative) H 03/03/24 20:20 Urine Nitrite Negative (Negative) 03/03/24 20:20 Urine Bilirubin 1+ (Negative) H 03/03/24 20:20 Urine Urobilinogen Negative (Negative) 03/03/24 20:20 Ur Leukocyte Esterase 3+ (Negative) H 03/03/24 20:20 Urine WBC (Auto) >50 /hpf (0-5) H 03/03/24 20:20 Urine RBC (Auto) >20 /hpf (0-2) H 03/03/24 20:20 U Hyaline Cast (Auto) >20 /lpf (0-2) H 03/03/24 20:20 U Epithel Cells (Auto) 0-2 /hpf (0-2) 03/03/24 20:20 Urine Bacteria (Auto) 4+ (None Seen) H 03/03/24 20:20 Calcium Oxalate Crystal Present (None Prsent) A 03/03/24 20:20 Impressions Abdomen/Pelvis CT 03/03/24 20:04 Exam(s): CT ABDOMEN + PELVIS With Contrast IV Amt: 92 cc opit 320 EXAM: CT Abdomen and Pelvis With Intravenous Contrast CLINICAL HISTORY: Reason for exam: abdominal pain. TECHNIQUE: Axial computed tomography images of the abdomen and pelvis with intravenous contrast. CTDI is 26.88 mGy and DLP is 1493.88 mGy-cm. Automated exposure control was utilized for the study. A dose lowering technique was utilized adhering to the principles of ALARA. CONTRAST: Patient received 92 cc Optiray 320 of IV contrast COMPARISON: January 29, 2024 FINDINGS: Lung bases: Scattered bibasilar atelectasis. ABDOMEN: Liver: Unremarkable. No mass. Gallbladder and bile ducts: Mild biliary duct prominence postcholecystectomy. No choledocholithiasis is seen. Pancreas: Unremarkable. No mass. No ductal dilation. Spleen: Unremarkable. No splenomegaly. Adrenals: Unremarkable. No mass. Kidneys and ureters: There are nonobstructive renal calyceal calculi in the left kidney measuring 1.5 cm in the lower pole and 6 mm in the mid kidney. No hydronephrosis or ureterolithiasis is seen involving either kidney. Stomach and bowel: Unremarkable. No obstruction. No mucosal thickening. PELVIS: Appendix: The appendix is not visible. Bowel loops are nondilated. No acute inflammatory changes are seen involving the bowel. Bladder: The urinary bladder is decompressed by a suprapubic catheter. Reproductive: Unremarkable as visualized. ABDOMEN and PELVIS: Intraperitoneal space: Unremarkable. No free air. No significant fluid collection. Bones/joints: There is a chronic decubitus ulcer extending down to the inferior aspect of the sacrum which appears stable and unchanged since previous. No acute fracture. No dislocation. Soft tissues: Unremarkable. Vasculature: Unremarkable. No abdominal aortic aneurysm. Lymph nodes: Unremarkable. No enlarged lymph nodes. IMPRESSION: 1. There are nonobstructive renal calyceal calculi in the left kidney measuring 1.5 cm in the lower pole and 6 mm in the mid kidney. No hydronephrosis or ureterolithiasis is seen involving either kidney. 2. The appendix is not visible. Bowel loops are nondilated. No acute inflammatory changes are seen involving the bowel. 3. There is a chronic decubitus ulcer extending down to the inferior aspect of the sacrum which appears stable and unchanged since previous. Electronically signed by: Cooper Miles MD 03/03/24 23:[address] head: Study is limited by patient motion. No acute abnormality. CT chest: Mild bilateral lower lobe platelike atelectasis versus scarring. No lobar infiltrate.
[2024-03-04 00:59] LABS: Base Excess VBG -0.5 mEq/L; HCO3 VBG 24 mmol/L; Oxygen Saturation VBG 95.8 %; PCO2 VBG 39 mmHg (38-50); PO2 VBG 68 mmHg
[2024-03-04] MEDS: PIPERACILLIN/TAZOBACTAM 4.5 GM/100 ML BAG IV ONE (01:07)
[2024-03-04] MEDS: MEROPENEM 500 MG in SYRINGE 0 ML IV STA (01:10)
[2024-03-04] MEDS: SODIUM CHLORIDE 0.9% 1,000 ML IV ONE (01:11)
[2024-03-04 02:03] LABS: Thyroid Stimulating Hormone 1.409 uIu/ml (0.300-4.500)
[2024-03-04] MEDS: NALOXONE HCL 0.4 MG/1 ML VIAL/CARP IV STA ×2 (02:06→03:59)
[2024-03-04 02:14] LABS: Amphetamines+Metham, Urine Neg (Neg); Barbiturates, Urine Neg (Neg); Benzodiazepine, Urine Neg (Neg); Cocaine, Urine Pos (Neg); Fentanyl, Urine Neg (Neg); MDMA (Ecstacy), Urine Neg (Neg); Marijuana, Urine Pos (Neg); Methadone, Urine Neg (Neg); Opiate, Urine Pos (Neg); Phencyclidine, Urine Neg (Neg)
[2024-03-04] MEDS: VANCOMYCIN HCL 2,250 MG in SODIUM CHLORIDE 0.9% 500 ML IV ONE (02:49)
[2024-03-04] MEDS: NSS + 20MEQ KCL 20 MEQ/1,000 ML BAG IV STA (02:49)
--- NOTE | 2024-03-04 03:19 | CT Scan Report ---
Exam(s): CT HEAD Without Contrast EXAM: CT Head Without Intravenous Contrast CLINICAL HISTORY: Reason for exam: ams, eliquis. TECHNIQUE: Axial computed tomography images of the head/brain without intravenous contrast. CTDI is 36.79 mGy and DLP is 624.41 mGy-cm. Automated exposure control was utilized for the study. A dose lowering technique was utilized adhering to the principles of ALARA. COMPARISON: 09/30/2023. FINDINGS: Study is limited by patient motion. Brain: No acute stroke. No hemorrhage. No abnormal extra-axial fluid collection. No significant white matter disease. Ventricles: No hydrocephalus. No midline shift. Bones/joints: Unremarkable. No acute fracture. Soft tissues: Unremarkable. Sinuses: Unremarkable as visualized. No acute sinusitis. IMPRESSION: Study is limited by patient motion. No acute abnormality. Electronically signed by: Eusebio Chawla M.D. 03/04/24 03:17 AM
[2024-03-04] MEDS ORDERED: hydrOXYzine HCl 25 MG TAB PO PRN (03:54)
--- NOTE | 2024-03-04 03:56 | CT Scan Report ---
Exam(s): CT CHEST Without Contrast EXAM: CT Chest Without Intravenous Contrast CLINICAL HISTORY: Reason for exam: cough. TECHNIQUE: Axial computed tomography images of the chest without intravenous contrast. CTDI is 21.18 mGy and DLP is 747.63 mGy-cm. Automated exposure control was utilized for the study. A dose lowering technique was utilized adhering to the principles of ALARA. COMPARISON: No relevant prior studies available. FINDINGS: Lungs: Mild bilateral lower lobe platelike atelectasis versus scarring. No lobar infiltrate. Pleural space: Unremarkable. No pneumothorax. No pleural effusion. Heart: Unremarkable. No cardiomegaly. No significant pericardial effusion. No significant coronary artery calcifications. Bones/joints: Posterior fusion hardware lower cervical spine and bilateral pedicle screws at T1. No acute fracture. Soft tissues: Unremarkable. Vasculature: Unremarkable. No thoracic aortic aneurysm. Abdomen: Post cholecystectomy. IMPRESSION: Mild bilateral lower lobe platelike atelectasis versus scarring. No lobar infiltrate. Electronically signed by: Eusebio Chawla M.D. 03/04/24 03:55 AM
[2024-03-04] MEDS: OPTIRAY 320 100ml IV ONE (05:16)
[2024-03-04 05:44] LABS: Calcium 9.6 mg/dl (8.6-10.3); Potassium 3.5 mmol/L (3.5-5.1)
[2024-03-04 05:50] LABS: BUN Creatinine Ratio 22.6 (10-20); Creatinine Clr Calc Pharmacy 192.1 ml/min
[2024-03-04] MEDS: FLUTICASONE/VILANTEROL 100/25MCG 14 PUFFS/INHALER INH SCH (08:04)
[2024-03-04] MEDS: LACTULOSE SYRUP 20 GM/30 ML UDC PO SCH (08:04)
[2024-03-04] MEDS: UMECLIDINIUM BROMIDE 62.5MCG/BLISTER 7 PUFFS/INHALER INH SCH (08:04)
[2024-03-04] MEDS: MEROPENEM 500 MG in SYRINGE 0 ML IV SCH (08:05)
[2024-03-04] MEDS: DULoxetine HCL 60 MG CAP PO SCH (08:05)
[2024-03-04] MEDS: MULTIVITAMIN CHEWABLE TAB PO SCH (08:05)
[2024-03-04] MEDS: OXYBUTYNIN CHLORIDE XL 5 MG TABCR PO SCH (08:05)
[2024-03-04] MEDS: FERROUS SULFATE 325 MG TAB PO SCH (08:05)
[2024-03-04] MEDS: APIXABAN 5 MG TABLET PO SCH (08:05)
[2024-03-04] MEDS: FAMOTIDINE 20 MG TAB PO SCH (08:06)
[2024-03-04] MEDS: FAMOTIDINE 20 MG TAB ONE (08:06)
[2024-03-04] MEDS: bisacodyL 10 MG SUPP PR ONE (08:06)
[2024-03-04] MEDS: bisacodyL 10 MG SUPP PR SCH (08:07)
--- NOTE | 2024-03-04 08:18 | XRay Report ---
XR chest 1V portable HISTORY: 48 years-old Male cough, congestion COMPARISON: Chest CT of same day TECHNIQUE: AP view of the chest FINDINGS: Cardiac silhouette is normal. No pneumothorax, pleural effusion or airspace consolidation typical for pneumonia. Subsegmental reticular nodular opacities at the right lung base Bones appear grossly inta ct. IMPRESSION: Subsegmental right basilar reticulonodular opacities compatible with a mild infectious or inflammatory bronchiolitis. ACT 112: Negative or not required by law. The above report was generated using voice recognition software. It may contain grammatical, syntax o r spelling errors. Electronically signed by: Anil Friedman M.D. 03/04/2024 8:16 AM
[2024-03-04] MEDS: BACLOFEN 20 MG TAB PO PRN (09:35)
[2024-03-04 10:33] LABS: Basophils # (auto) 0.08 K/uL (0.00-0.20); Basophils % (auto) 0.8 %; Eosinophils # (auto) 0.09 K/uL (0.00-0.50); Eosinophils % (auto) 0.9 %; Hematocrit (blood only) 43.3 % (42.0-52.0); Hemoglobin 13.7 g/dl (14.0-18.0); Immature Granulocytes # (auto) 0.03 K/uL (0.01-0.20); Immature Granulocytes % (auto) 0.3 %; Lymphocytes # (auto) 1.32 K/uL (1.20-3.40); Lymphocytes % (auto) 13.1 %; Mean Corpuscular Hemoglobin 26.1 pg (25.0-34.0); Mean Corpuscular Hgb Conc 31.6 g/dL (32.0-36.0); Mean Corpuscular Volume 82.5 fL (80.0-100.0); Mean Platelet Volume 9.8 fL (9.4-12.4); Monocytes # (auto) 0.56 K/uL (0.11-0.59); Monocytes % (auto) 5.6 %; Neutrophils # (auto) 7.97 K/uL (1.40-6.50); Neutrophils % (auto) 79.3 %; Platelet Count 220 K/uL (130-400); RDW Coefficient of Variation 15.9 % (11.5-14.5); RDW Standard Deviation 47.8 fL (36.4-46.3); Red Blood Count 5.25 M/uL (4.70-6.10); White Blood Count 10.05 K/ul (4.8-10.8)
--- NOTE | 2024-03-04 14:41 | Communication Note ---
Date of Service: March 04, 2024 Patient was seen and examined at bedside. 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 He is being managed for the following: Complicated UTI Catheter associated UTI Patient with history of neurogenic bladder with chronic indwelling suprapubic catheter. Admitting UA suggestive of UTI, follow admitting urine culture and blood culture. Continue with meropenem 03/04 Likely aspiration pneumonitis: Patient with junky cough symptoms with greenish sputum at presentation. Speech evaluated, appreciate recommendation. Aspiration precaution. Continue with meropenem 03/04. send sputum Cx. Likely toxic and metabolic encephalopathy: Likely secondary to complicated UTI and possible drug use. U tox at presentation positive for cocaine/marijuana/opiates. Mentation improving. Correct underlying cause, continue to monitor. Hold home neuropsychotropic medication, gradually resume. Other chronic medical conditions: Continue with/resume home meds as and when able. 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 DVT prophylaxis. Eliquis Full code Patient's sister Ms. Lyn Briggs, [phone]. Text document was generated using [employer] voice recognition software. It may contain grammatical or spelling errors. Kindly contact undersigned for clarification of any documentation item in question. For detailed information on the patient, refer to today's H&P note.
[2024-03-04 20:08] LABS: A calco-baum cmplx NotReported Not Detected (NotDetected); Bact fragilis Not Reported Not Detected (NotDetected); Blood Culture Id Panel See PCR Comment (NotDetected); C auris Not Reported Not Detected (NotDetected); Calbicans Not Reported Not Detected (NotDetected); Candida glabrata Not Reported Not Detected (NotDetected); Candida krusei Not Reported Not Detected (NotDetected); Cneoformans/gatti Not Reported Not Detected (NotDetected); Cparapsilosis Not Reported Not Detected (NotDetected); E cloacae compx Not Reported Not Detected (NotDetected); Efaecalis Not Reported Not Detected (NotDetected); Efaecium Not Reported Not Detected (NotDetected); Enterobacterales Not Reported Not Detected (NotDetected); Escherichia coli Not Reported Not Detected (NotDetected); H influenzae Not Reported Not Detected (NotDetected); K aerogenes Not Reported Not Detected (NotDetected); Koxytoca Not Reported Not Detected (NotDetected); Kpneumoniae grp Not Reported Not Detected (NotDetected); Lmonocyt Not Reported Not Detected (NotDetected); N meningitidis Not Reported Not Detected (NotDetected); P aeruginosa Not Reported Not Detected (NotDetected); Proteus spp Not Reported Not Detected (NotDetected); Salmonella spp Not Reported Not Detected (NotDetected); Staph lugdunensis Not Reported Not Detected (NotDetected); Staph spp. Not Reported DETECTED (NotDetected); Staphaureus Not Reported Not Detected (NotDetected); Staphepi Not Reported DETECTED (NotDetected); Staphylococcus spp. DETECTED (NotDetected); Stenmaltophilia Not Reported Not Detected (NotDetected); Strep agal(GrpB) Not Reported Not Detected (NotDetected); Strep pneum Not Reported Not Detected (NotDetected); Strep pyog (GrpA) Not Reported Not Detected (NotDetected); Strep spp Not Reported Not Detected (NotDetected)
[2024-03-04 20:12] LABS: Staphylococcus epidermidis DETECTED (NotDetected); mecAC Resistant Gene DETECTED (NotDetected)
[2024-03-04] MEDS: SIMETHICONE 80 MG CHEW PO SCH (20:19)
[2024-03-04] MEDS: MELATONIN 3 MG TAB PO PRN (20:19)
[2024-03-04] MEDS: DOCUSATE SODIUM/SENNA 50/8.6MG TAB PO SCH (20:20)
[2024-03-04] MEDS: POTASSIUM CHLORIDE CRTAB 20 MEQ TABCR PO SCH (20:20)
[2024-03-04] MEDS: oxyCODONE HCL IR 5 MG TAB (IMMEDIATE RELEASE) PO PRN (20:20)
[2024-03-05] MEDS: ONDANSETRON INJ 2 MG/ML 2 ML VIAL IV PRN (08:35)
[2024-03-05] MEDS: CeleBREX 200 MG CAP PO PRN (08:53)
[2024-03-05] MEDS: DOCUSATE SODIUM 100 MG CAP PO PRN (08:53)
[2024-03-05 09:15] LABS: Hematocrit (blood only) 41.1 % (42.0-52.0); Hemoglobin 13.1 g/dl (14.0-18.0); Mean Corpuscular Hemoglobin 26.2 pg (25.0-34.0); Mean Corpuscular Hgb Conc 31.9 g/dL (32.0-36.0); Mean Corpuscular Volume 82.2 fL (80.0-100.0); Mean Platelet Volume 9.8 fL (9.4-12.4); Platelet Count 200 K/uL (130-400); RDW Coefficient of Variation 15.4 % (11.5-14.5); RDW Standard Deviation 46.5 fL (36.4-46.3); White Blood Count 9.97 K/ul (4.8-10.8)
[2024-03-05 09:29] LABS: Anion Gap 7 (3-11); Blood Urea Nitrogen 8 mg/dl (6-23); Calcium 9.5 mg/dl (8.6-10.3); Carbon Dioxide 24 mmol/L (21-32); Chloride 105 mmol/L (98-107); Creatinine Clr Calc Pharmacy 239.5 ml/min; Est GFR (African American) > 150.0 ml/min; Est GFR (Non-African American) 138.6 ml/min; Glucose 93 mg/dl (70-99(Fasting)); Magnesium 1.8 mg/dl (1.7-2.4); Phosphorus 2.5 mg/dl (2.5-4.9); Potassium 3.5 mmol/L (3.5-5.1); Sodium 136 mmol/L (136-145)
--- NOTE | 2024-03-05 15:17 | Hospitalist Progress Note ---
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 He is being managed for the following: Complicated UTI Catheter associated UTI Patient with history of neurogenic bladder with chronic indwelling suprapubic catheter. Admitting UA suggestive of UTI, follow admitting urine culture and blood culture. Continue with meropenem 03/04 Likely aspiration pneumonitis: Patient with junky cough symptoms with greenish sputum at presentation. Speech evaluating, appreciate recommendation. Aspiration precaution. Continue with meropenem 03/04. pt reports improvement in cough. Likely toxic and metabolic encephalopathy: Likely secondary to complicated UTI and possible drug use. U tox at presentation positive for cocaine/marijuana/opiates. Mentation improving. Correct underlying cause, continue to monitor. Hold home neuropsychotropic medication, gradually resume. Bl cx +ve: 2 of 4 admitting bl cx +ve, repeat sent 03/04, follow. likely contaminant. Other chronic medical conditions: Continue with/resume home meds as and when able. 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 DVT prophylaxis. Eliquis Full code Patient's sister Ms. Lyn Briggs, [phone]. Text document was generated using imgfave voice recognition software. It may contain grammatical or spelling errors. Kindly contact undersigned for clarification of any documentation item in question. Admission and Anticipated Discharge Date Admission Date: March 04, 2024 Subjective Patient was seen and examined at bedside. Patient was lying in bed, on room air, reports overall feeling better and mentation has improved. Patient reports taking cocaine about 3 days ago. Patient reports being in his usual state of pain. Patient reports eating okay and moving bowels okay. Physical Exam Physical Exam: GENERAL: Obtunded, looks older than stated age, no respiratory distress SKIN: Pallor, warm HEENT: Alopecia, pale palpebral conjunctivae, no ptosis, Moist buccal mucosa NECK : Some limitation in motion, no tenderness CHEST : Decreased breath sounds, no tenderness HEART : Bradycardic, no obvious murmurs ABDOMEN: Some distention, hypogastric tenderness, suprapubic catheter noted with light yellow urine collection and back. EXTREMITIES : Minimal LE swelling/tenderness, posterior surfaces not examined Results & Data Results & Data Vital Signs (Past 12 Hours) Vital Signs Temp Pulse Pulse Resp BP Pulse Ox O2 Del Method 03/05/24 13:00 54 L 03/05/24 11:14 Nasal Cannula 03/05/24 11:10 36.5 C 54 L 16 148/95 H 98 Nasal Cannula 03/05/24 05:59 70 03/05/24 03:27 36.4 C L 77 20 121/80 95 Room Air O2 Flow Rate 03/05/24 13:00 03/05/24 11:14 2 03/05/24 11:10 2 03/05/24 05:59 03/05/24 03:27
[2024-03-05] MEDS: SODIUM CHLORIDE 0.9% 500 ML IV ONE (23:05)
[2024-03-05] MEDS: MIDODRINE HCL 10 MG TAB PO PRN (23:05)
[2024-03-06] MEDS: ACETAMINOPHEN 325 MG TAB PO PRN (08:58)
[2024-03-06] MEDS: HYDROmorphone INJ 0.5 MG/0.5 ML SYR IV PRN (08:58)
[2024-03-06 11:11] LABS: Calcium 9.2 mg/dl (8.6-10.3); Magnesium 1.8 mg/dl (1.7-2.4); Potassium 3.4 mmol/L (3.5-5.1)
[2024-03-06 11:16] LABS: Creatinine Clr Calc Pharmacy 205.1 ml/min; Est GFR (African American) 149.6 ml/min; Est GFR (Non-African American) 129.1 ml/min; Phosphorus 1.8 mg/dl (2.5-4.9)
[2024-03-06] MEDS: ADVANCED PROBIOTIC 625 MG CAPSULE PO SCH (11:26)
[2024-03-06 11:28] LABS: Hematocrit (blood only) 39.9 % (42.0-52.0); Hemoglobin 13.3 g/dl (14.0-18.0); Mean Corpuscular Hemoglobin 26.8 pg (25.0-34.0); Mean Corpuscular Hgb Conc 33.3 g/dL (32.0-36.0); Mean Corpuscular Volume 80.3 fL (80.0-100.0); Mean Platelet Volume 10.2 fL (9.4-12.4); Platelet Count 258 K/uL (130-400); RDW Coefficient of Variation 15.8 % (11.5-14.5); RDW Standard Deviation 45.7 fL (36.4-46.3); Red Blood Count 4.97 M/uL (4.70-6.10); White Blood Count 11.25 K/ul (4.8-10.8)
--- NOTE | 2024-03-06 16:55 | Hospitalist Progress Note ---
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 He is being managed for the following: Complicated UTI Catheter associated UTI Patient with history of neurogenic bladder with chronic indwelling suprapubic catheter. Admitting UA suggestive of UTI. Continue with meropenem 03/04, urine cs reviewed, to aumentin from 03/06. Likely aspiration pneumonitis: Patient with junky cough symptoms with greenish sputum at presentation. Speech evaluating - pt declined complete eval, appreciate recommendation. Aspiration precaution. Continue with meropenem 03/04--> augmentin 03/06. pt reports improvement in cough and sputum. Likely toxic and metabolic encephalopathy: Likely secondary to complicated UTI and possible drug use. U tox at presentation positive for cocaine/marijuana/opiates. Mentation improving. Correct underlying cause, continue to monitor. Bl cx +ve: 2 of 4 admitting bl cx +ve, repeat sent 03/04, follow. likely contaminant. Other chronic medical conditions: Continue with/resume home meds as and when able. 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 DVT prophylaxis. Eliquis Full code Patient's sister Ms. Lyn Briggs, [phone]. Text document was generated using [employer] voice recognition software. It may contain grammatical or spelling errors. Kindly contact undersigned for clarification of any documentation item in question. Admission and Anticipated Discharge Date Admission Date: March 04, 2024 Subjective Patient was seen and examined at bedside. Patient was lying in bed, on room air, reports overall feeling better and mentation has improved. Patient encouraged to comply with wound care and speech evaluation. Patient has declined both today. 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 Patient reports being in his usual state of pain. Patient reports eating okay and moving bowels okay. Physical Exam Physical Exam: GENERAL: Obtunded, looks older than stated age, no respiratory distress SKIN: Pallor, warm HEENT: Alopecia, pale palpebral conjunctivae, no ptosis, Moist buccal mucosa NECK : Some limitation in motion, no tenderness CHEST : Decreased breath sounds, no tenderness HEART : Bradycardic, no obvious murmurs ABDOMEN: Some distention, hypogastric tenderness, suprapubic catheter noted with light yellow urine collection and back. EXTREMITIES : Minimal LE swelling/tenderness, posterior surfaces not examined Results & Data Results & Data Vital Signs (Past 12 Hours) Vital Signs Temp Pulse Pulse Resp BP Pulse Ox O2 Del Method 03/06/24 16:38 49 L 03/06/24 15:41 36.6 C 63 18 128/89 96 Room Air 03/06/24 11:25 107/70 03/06/24 10:27 36.5 C 70 20 68/44 L 92 Room Air 03/06/24 09:45 47 L 03/06/24 07:46 36.9 C 46 L 16 134/84 94 Room Air
[2024-03-06] MEDS: AMOXICILLIN/CLAVULANATE 875 MG TAB PO SCH (18:20)
[2024-03-07 09:33] LABS: Hematocrit (blood only) 39.5 % (42.0-52.0); Mean Corpuscular Hemoglobin 26.5 pg (25.0-34.0); Mean Corpuscular Hgb Conc 32.9 g/dL (32.0-36.0); Mean Corpuscular Volume 80.4 fL (80.0-100.0); Mean Platelet Volume 10.1 fL (9.4-12.4); Platelet Count 233 K/uL (130-400); RDW Coefficient of Variation 15.9 % (11.5-14.5); RDW Standard Deviation 45.7 fL (36.4-46.3); Red Blood Count 4.91 M/uL (4.70-6.10); White Blood Count 7.59 K/ul (4.8-10.8)
[2024-03-07 09:38] LABS: Anion Gap 4 (3-11); Blood Urea Nitrogen 6 mg/dl (6-23); Calcium 8.8 mg/dl (8.6-10.3); Carbon Dioxide 27 mmol/L (21-32); Chloride 107 mmol/L (98-107); Creatinine Clr Calc Pharmacy 226.5 ml/min; Est GFR (African American) > 150.0 ml/min; Est GFR (Non-African American) 133.5 ml/min; Glucose 92 mg/dl (70-99(Fasting)); Magnesium 1.7 mg/dl (1.7-2.4); Phosphorus 2.3 mg/dl (2.5-4.9); Potassium 4.1 mmol/L (3.5-5.1); Sodium 138 mmol/L (136-145)
--- NOTE | 2024-03-07 11:45 | Hospitalist Progress Note ---
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 He is being managed for the following: Complicated UTI Catheter associated UTI Patient with history of neurogenic bladder with chronic indwelling suprapubic catheter. Admitting UA suggestive of UTI. Was initially on meropenem. Urine culture grew E coli. Now on Augmentin Urology consult for change of suprapubic hartman per patient's request Likely aspiration pneumonitis: Patient with junky cough symptoms with greenish sputum at presentation. Patient reportedly declined complete speech eval Aspiration precaution. Currently on Augmentin as above Toxic and metabolic encephalopathy: Secondary to complicated UTI and possible drug use. U tox at presentation positive for cocaine/marijuana/opiates. 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 Had occasionally declined wound care per RN. Counseled patient about this. Consult wound care hx substance abuse as per records functional disability ongoing tobacco abuse, Nicotine patch as needed Hx MRSA Dispo: PT OT , cm to assist w/ dc plan. DVT prophylaxis. Eliquis Full code Patient's sister Ms. Lyn Briggs, [phone]. I spent a total of 45 minutes coordinating, documenting and providing care for this patient excluding time spent in performance of separately billed services Admission and Anticipated Discharge Date Admission Date: March 04, 2024 Subjective Patient seen and examined Reports low back pain around his wound Reports low abd discomfort which he believes is due to his suprapubic hartman. Stated its been over a month it was changed Patient is paraplegic. No fever or chills Physical Exam Constitutional: no acute distress Eyes: PERRL, conjunctivae normal, anicteric sclerae ENMT: external ear and nose normal, oropharynx normal Respiratory: normal respiratory effort, lungs clear to auscultation Cardiovascular: Rate/Rhythm: regular rhythm and + bradycardic S1 S2 Chest (Breasts): normal inspection/palpation of breasts Gastrointestinal (Abdomen): normal bowel sounds, soft, nontender, no hepatosplenomegaly Musculoskeletal: Paraplegic with ?contractures Neurologic: PERRL, EOMI, accommodation nl, no face palsy, no dysarthria Psychiatric: A+Ox3, euthymic affect Genitourinary: Suprapubic hartman Results & Data Results & Data Vital Signs (Past 12 Hours) Vital Signs Temp Pulse Pulse Resp BP BP Pulse Ox 03/07/24 10:44 94/64 L 03/07/24 10:36 64 03/07/24 04:29 36.4 C L 45 L 20 124/81 95 03/07/24 00:36 54 L O2 Del Method 03/07/24 10:44 03/07/24 10:36 03/07/24 04:29 Room Air 03/07/24 00:36 Laboratory Results Abnormal lab results 03/04/24 03/07/24 Range/Units 01:20 09:02 Hgb 13.0 L (14.0-18.0) g/dl Hct 39.5 L (42.0-52.0) % RDW Coeff of Adelia 15.9 H (11.5-14.5) % Creatinine 0.46 L (0.6-1.4) mg/dl Phosphorus 2.3 L (2.5-4.9) mg/dl Ur Morphine (GC/MS) 2230 H (<50) ng/mL Ur Noroxycodone 8470 H (<50) ng/mL Urine Oxycodone (GC/MS) 5020 H (<50) ng/mL U Oxymorphone GC/MS 355 H (<50) ng/mL Ur Hydromorphone (GC/MS) 59 H (<50) ng/mL U Cocaine Confirm GC/MS >17644 H (<100) ng/mL U Marijuana THC Carboxy 261 H (<5) ng/mL
[2024-03-07 12:51] LABS: Cocaine, Urine >15000 ng/mL (<100); Codeine Urine NEGATIVE ng/mL (<50); Hydrocodone Urine NEGATIVE ng/mL (<50); Hydromor Urine 59 ng/mL (<50); Marijuana Quant, GCMS Urine 261 ng/mL (<5); Morphine Urine 2230 ng/mL (<50); Norhydrocodone Conf Ur NEGATIVE ng/mL (<50); Noroxycodone Urine 8470 ng/mL (<50); Oxycodone Urine 5020 ng/mL (<50); Oxymorph Urine 355 ng/mL (<50)
--- NOTE | 2024-03-07 13:41 | Urology Consultation ---
Date of Consultation March 07, 2024 Assessment & Plan (1) Complicated urinary tract infection: (2) Suprapubic catheter: 48 yo/M admitted for encephalopathy, suspected UTI, and aspiration pneumonitis Urology consulted for SP catheter change 16F suprapubic catheter was exchanged without difficulty Okay to flush suprapubic catheter as needed for catheter obstruction Recommend monthly catheter exchanges Unclear if this is being done routinely Patient can follow-up with his established urologist, Dr. 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 Urology is consulted for suprapubic catheter exchange. Chart reviewed. He had CT abdomen pelvis 03/03/2024 which showed nonobstructing renal calculi in the left kidney measuring 1.5 cm and 6 mm, no hydronephrosis. Urine culture 03/03/2024 with E. coli. Blood cultures 2 of 4 with coag negative staph. Repeat blood cultures 03/05 show no growth x 48 hours. Initially on Meropenem, transitioned to Augmentin 03/06. Labs today reviewedcreatinine 0.46, WBC 7.59, hemoglobin 13.0. Patient seen at bedside. Generally feeling better since arrival. He reports that suprapubic catheter was changed greater than 30 days ago. He reports it is typically changed at the hospital due to recurrent hospitalizations. No recent issues with his catheter. He reports that Dr. Howard is his urologist. Denies fever or chills. Allergies Allergy/AdvReac Type Severity Reaction Status Date / Time No Known Allergies Allergy Verified 01/29/24 21:32 Home Medications Medication Instructions Recorded Confirmed Type Naloxone 4 Mg/0.1ml 1 spray intranasal (ALT) 01/29/24 03/04/24 History DIRECTED PRN opiod od Sterile Water For Irrigation 1 ea NA BID 01/29/24 03/04/24 History amitriptyline 25 mg tablet 25 mg PO HS 01/29/24 03/04/24 History apixaban 5 mg tablet (Eliquis) 5 mg PO AMHS 01/29/24 03/04/24 History bisacodyl 10 mg rectal suppository 10 mg CO AMPM 01/29/24 03/04/24 History budesonide-formoterol HFA 160 2 puff inhalation AMHS 01/29/24 03/04/24 History mcg-4.5 mcg/actuation aerosol inhaler celecoxib 200 mg capsule 200 mg PO DAILY PRN Pain 01/29/24 03/04/24 History collagenase clostridium histo. 250 1 applic topical DAILY 01/29/24 03/04/24 History unit/gram topical ointment docusate sodium 100 mg capsule 100 mg PO BID PRN Constipation 01/29/24 03/04/24 History duloxetine 60 mg capsule,delayed 60 mg PO QAM 01/29/24 03/04/24 History release sprinkle ferrous sulfate 325 mg (65 mg 325 mg PO QDB 01/29/24 03/04/24 History iron) tablet gabapentin 100 mg capsule 100 mg PO TID 01/29/24 03/04/24 History gabapentin 300 mg capsule 300 mg PO TID 01/29/24 03/04/24 History hydroxyzine HCl 25 mg tablet 25 mg PO DAILY PRN Anxiety 01/29/24 03/04/24 History lactulose 20 gram/30 mL oral 20 g PO TID 01/29/24 03/04/24 History solution lidocaine 5 % topical patch 1 patch topical DAILY PRN Pain 01/29/24 03/04/24 History midodrine 10 mg tablet 10 mg PO TID PRN Hypotension 01/29/24 03/04/24 History oxybutynin chloride 10 mg 10 mg PO QAM 01/29/24 03/04/24 History tablet,extended release 24 hr potassium chloride 20 mEq 20 meq PO AMHS 01/29/24 03/04/24 History tablet,extended release(part/cryst) sennosides 8.6 mg-docusate sodium 2 tab-cap PO HS 01/29/24 03/04/24 History 50 mg tablet (Senokot-S) simethicone 80 mg chewable tablet 80 mg PO TID 01/29/24 03/04/24 History sodium hypochlorite 0.25 % 1 irrig topical BID 01/29/24 03/04/24 History solution (Dakin's Solution) tiotropium bromide 2.5 2 puff inhalation QAM 01/29/24 03/04/24 History mcg/actuation mist for inhalation (Spiriva Respimat) baclofen 20 mg tablet 20 mg PO TID PRN spasms #60 tabs 02/01/24 03/04/24 Rx oxycodone 5 mg tablet 5 mg PO TID PRN pain (scale score 02/01/24 03/04/24 Rx 7-10) #9 tabs ascorbic acid (vitamin C) 500 mg 500 mg PO QAM 03/04/24 03/04/24 History tablet (Vitamin C) famotidine 20 mg tablet 20 mg PO AMHS 03/04/24 03/04/24 History melatonin 3 mg capsule 3 mg PO HS 03/04/24 03/04/24 History pediatric multivitamin 1 tab PO DAILY 03/04/24 03/04/24 History Patient History Surgical History No pertinent past surgical history Social History Smoking Status: Current every day smoker Tobacco Type: Cigarettes Cigarettes Per Day: 50-60; Second Hand Exposure: Yes; Do You Dip or Chew Tobacco: No; Tobacco Cessation Education Requested by Patient: No Hx Alcohol Use: No Hx Substance Use: Yes Last Used Substance: Unknown Last Used Substance Other:: 03/03/24 Preferred Language: Swiss Communication Ability: Effective 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 Beliefs That Will Affect Care: None Current Living Situation: Alone Current Living Situation Comment: alone with 28/02 home care Feels Safe at Home: Yes Safety Concerns: Feels Safe At This Time Assistive Devices: Hospital Bed, Mechanical Lift, Oxygen - at Night and Wheelchair Review of Systems Review of Systems: All systems reviewed & are unremarkable except as noted in HPI & below Physical Exam Constitutional: no acute distress Respiratory: normal respiratory effort; no respiratory distress and no labored breathing Gastrointestinal (Abdomen): Inspection/Auscultation: abdomen normal to inspection; abdomen not distended Neurologic: awake Psychiatric: Orientation: alert and oriented x 3 Genitourinary: Patient with a 16F suprapubic catheter intact, patent and draining yellow urine. Patient verbally consented to suprapubic catheter change. Balloon was deflated and catheter was removed without difficulty. Patient was prepped and draped using typical sterile fashion. A well lubricated 16F silicone catheter was inserted into the suprapubic tract without difficulty. Balloon was inflated to 10 mL. Patient tolerated the procedure, no complications noted. The catheter was patent and draining appropriately at completion. Results & Data Vital Signs (Past 12 Hours) Vital Signs Temp Pulse Resp BP BP Pulse Ox O2 Del Method 03/07/24 13:18 36.9 C 66 16 158/69 H 97 Room Air 03/07/24 10:44 94/64 L 03/07/24 10:36 64 03/07/24 04:29 36.4 C L 45 L 20 124/81 95 Room Air PG Care Time/CCT Total # of Minutes Spent Total Time Spent with Patient: Total time spent is greater than 50% in coordination of care (as documented) at patient's floor/unit and/or counseling patient: Coding Level of Care Code 21909 IN/OBS CONSULT LVL 3,45M Diagnoses Complicated urinary tract infection N39.0 Suprapubic catheter Z93.59
--- NOTE | 2024-03-08 10:42 | Discharge Summary ---
Date of Service March 08, 2024 Admission HPI Per Admitting Provider History obtained from patient, ED provider and records. 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 Recent [facility] confinement last month for aspiration pneumonitis/pneumonia. Patient discharged on Augmentin course. Recent [facility] ER visit 3 weeks ago for medical clearance for bedsores prior to incarceration. Patient suprapubic catheter changed before discharge from the ER as per note. Patient had achy abdominal pain yesterday associated with constipation symptoms. Patient denies chest pain, SOB, headache, bleeding. Junky cough symptoms as per ED provider. Patient brought to ER for evaluation. Vancomycin and Zosyn administered at the ER. Transient hypoxemia O2 sats 80s noted at the ER. Patient later noted to be obtunded by staff after visit from family. Medical History as above Surgical History : Ankle surgery, neck surgery, urologic procedures, arm surgery, appendectomy, leg abscess drainage/metatarsal surgery, cholecystectomy Family History : Heart disease Personal/Social history : 2 packs daily, occasional EtOH intake, disabled Admission Exam Per Admitting Provider GENERAL: Obtunded, looks older than stated age, no respiratory distress SKIN: Pallor, warm HEENT: Alopecia, pale palpebral conjunctivae, no ptosis, dry buccal mucosa NECK : Some limitation in motion, no tenderness CHEST : Decreased breath sounds, no tenderness HEART : Bradycardic, no obvious murmurs ABDOMEN: Some distention, hypogastric tenderness EXTREMITIES : Minimal LE swelling/tenderness, posterior surfaces not examined NEUROLOGIC : Obtunded, miotic pupils, no facial asymmetry, MMTs could not be done Principal Diagnosis Encephalopathy Complicated Urinary tract infection Aspiration pneumonitis Discharge Exam Constitutional no acute distress Eyes PERRL, conjunctivae normal, anicteric sclerae ENMT external ear and nose normal, oropharynx normal Respiratory normal respiratory effort, lungs clear to auscultation Cardiovascular Rate/Rhythm: regular rhythm and + bradycardic Chest (Breasts) normal inspection/palpation of breasts Gastrointestinal (Abdomen) normal bowel sounds, soft, nontender, no hepatosplenomegaly Musculoskeletal Quadraplegic with contractures Skin Declined exam of wound Neurologic PERRL, EOMI, accommodation nl, no face palsy, no dysarthria Psychiatric A+Ox3, euthymic affect Discharge Data Allergies Allergy/AdvReac Type Severity Reaction Status Date / Time No Known Allergies Allergy Verified 01/29/24 21:32 Consultations 03/04/24 00:09 ED Decision to Admit Stat 03/07/24 11:47 Consult Urology Routine Ordered Studies 03/03/24 20:04 CT abd pelvis IV con only Stat 03/04/24 01:25 CT chest diagnostic wo con Stat CT head/brain wo con Stat Hospital Course (1) Encephalopathy: 48-year-old male with PMH of chronic diastolic heart failure [EF 65%, TTE 2022], saddle PE on Eliquis, COPD, 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 He was managed for the following: Complicated UTI Catheter associated UTI Patient with history of neurogenic bladder with chronic indwelling suprapubic catheter. Admitting UA suggestive of UTI. Was initially on meropenem. Urine culture grew E coli. Deescalated to Augmentin based on sensitivities to complete treatment Suprapubic hartman catheter changed by Urology on 03/07/24 Likely aspiration pneumonitis: Patient with junky cough symptoms with greenish sputum at presentation. Patient declined complete speech eval Aspiration precaution. On Augmentin as above Toxic and metabolic encephalopathy: Secondary to complicated UTI and possible drug use. U tox at presentation positive for cocaine/marijuana/opiates. 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 Declined wound dressing today hx substance abuse as per records functional disability ongoing tobacco abuse, Nicotine patch as needed Hx MRSA Discharged home. Patient reports he has all services he needs at home Total Time Total Time Spent Total Time Spent (In Minutes): 35 Total Time Includes: Examination of the Patient, Discharge Planning and Medication Reconciliation Discharge Plan Discharge Items Patient Disposition: Home - Home Health Services Reason For Visit: ENCEPHALOPATHY, COMP UTI Discharge Diagnosis: Encephalopathy Complicated Urinary tract infection Aspiration pneumonitis Activity: Resume your previous activity Non-emergency contact: Primary Care Provider Call non-emergency contact if: you have any medication questions Follow-up/Referrals: Chay Aguilar DO [Primary Care Provider] - Diet: Heart Healthy Addtl Attending Provider Instructions: Mr Fried You were admitted and managed for the above diagnoses. Your suprapubic hartman was changed on 03/07/24 You are being discharged on 2 more days of Augmentin to complete antibiotic. Please take meds as prescribed and Avoid illicit drugs. Please ensure proper wound care by your care givers and follow up with your Family Doctor. Pending Studies at Discharge: No Stand-Alone Forms: [facility], Smoking Cessation Medications and DC Order Prescriptions: New amoxicillin-pot clavulanate 875-125 mg Tablet 1 tab PO BIDM 2 Days Qty: 4 0RF Continued celecoxib 200 mg capsule 200 mg PO DAILY PRN (Reason: Pain) oxybutynin chloride 10 mg Tablet Extended Release 24hr 10 mg PO QAM sennosides-docusate sodium [Senokot-S] 8.6-50 mg Tablet 2 tab-cap PO HS Rx Instructions: hold for loose stool potassium chloride 20 mEq tablet,ER particles/crystals 20 meq PO AMHS amitriptyline 25 mg Tablet 25 mg PO HS bisacodyl 10 mg Suppository 10 mg OH AMPM Rx Instructions: hold for loose stools lidocaine 5 % adhesive patch,medicated 1 patch topical DAILY PRN (Reason: Pain) docusate sodium 100 mg Capsule 100 mg PO BID PRN (Reason: Constipation) gabapentin 300 mg capsule 300 mg PO TID Rx Instructions: Take am, noon, hs hydroxyzine HCl 25 mg Tablet 25 mg PO DAILY PRN (Reason: Anxiety) gabapentin 100 mg Capsule 100 mg PO TID Rx Instructions: Take am, noon, hs simethicone 80 mg Tablet,Chewable 80 mg PO TID midodrine 10 mg tablet 10 mg PO TID PRN (Reason: Hypotension) budesonide-formoterol 160-4.5 mcg/actuation HFA aerosol inhaler 2 puff INHALATION [facility]HS lactulose 20 gram/30 mL Solution 20 g PO TID Spiriva Respimat 2.5 mcg/actuation mist 2 puff INHALATION QAM Eliquis 5 mg tablet 5 mg PO AMHS Naloxone 4 Mg/0.1ml 1 spray intranasal (ALT) DIRECTED PRN (Reason: opiod od) Rx Instructions: suspected opoid od, 1 spray into 1 nostril Sterile Water For Irrigation 1 ea NA BID Rx Instructions: 1 liter bottle x 2. Irrigate suprapubic cath bid and allow to drain with 60- 120 ml of sterile irrigant. ferrous sulfate 325 mg (65 mg iron) Tablet 325 mg PO QDB collagenase clostridium histo. 250 unit/gram Ointment 1 applic TOPICAL DAILY Rx Instructions: apply to foot ulcers and cover dry bandage. Dakin's Solution 0.25 % Solution 1 irrig TOPICAL BID Rx Instructions: 1/2 strength, apply with packing. Use sterile wound wash 0.9% if dakins not available. duloxetine 60 mg Capsule, Delayed Rel Sprinkle 60 mg PO QAM baclofen 20 mg tablet 20 mg PO TID PRN (Reason: spasms) Qty: 60 0RF oxycodone 5 mg tablet 5 mg PO TID PRN (Reason: pain (scale score 7-10)) Qty: 9 0RF famotidine 20 mg Tablet 20 mg PO AMHS pediatric multivitamin Tablet,Chewable 1 tab PO DAILY melatonin 3 mg capsule 3 mg PO HS ascorbic acid (vitamin C) [Vitamin C] 500 mg Tablet 500 mg PO QAM Discharge Orders: Discharge Order (Routine); Ordered 03/08/24 Ordered By: Emilie Koenig Admission Data Admit Date/Time: 03/04/24 01:24 Attending Provider: Emilie Koenig I. Admit Provider: Corky Yadav Primary Care Provider: Chay Aguilar Other Providers: Corky Yadav; Fernandez Blount Allison M Other Interventions: Discharge Summary Assessment (RN) Last Done: 03/08/24 10:55
--- NOTE | 2024-03-09 18:09 | Electrocardiogram Report ---
Test Reason : Blood Pressure : / mmHG Vent. Rate : 051 BPM Atrial Rate : 051 BPM P-R Int : 180 ms QRS Dur : 084 ms QT Int : 468 ms P-R-T Axes : 024 005 018 degrees QTc Int : 431 ms Sinus bradycardia Otherwise normal ECG When compared with ECG of 01-FEB-2024 05:51, No significant change was found Confirmed by Josh Nath ([id number]) on 03/09/2024 6:09:04 PM Referred By: REFERRED SELF Confirmed By:Josh Nath
== END 2024-03-08 12:33 | disposition home or self-care (01) | DRG 698 ==
LOC: ED 18:42 → EDINP 03-04 01:24 → SUATTDRO 03-04 01:24 → 2W 03-04 13:35

== ENCOUNTER 2024-04-04 10:50 | Inpatient (IN) ==
--- NOTE | 2024-04-04 11:13 | Emergency Department Note ---
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 He gave himself 2 suppositories and checked his blood pressure and it was elevated and consequently called EMS. He denies any headache or change in vision. No chest pain or shortness of breath. No nausea, vomiting, or diarrhea. No dysuria, urgency, or frequency. No other exacerbating or remitting factors. ADDITIONAL HISTORY OBTAINED: Per HPI Chronic Medical/Social Conditions Affecting Care: Per HPI PAST MEDICAL HISTORY:See Below PAST SURGICAL HISTORY:See Below FAMILY HISTORY:See Below SOCIAL HISTORY:See Below HOME MEDICATIONS:See Below ALLERGIES:See Below VITALS:See Below PHYSICAL EXAMINATION: GENERAL: Sitting up in bed, alert, well appearing, well nourished, no distress, non-toxic EYE EXAM: normal conjunctiva. OROPHARYNX: mucous membranes are moist NECK: supple, no nuchal rigidity, no adenopathy, non-tender LUNGS: Clear to auscultation. Normal chest wall mechanics HEART: no murmurs, S1 normal and S2 normal ABDOMEN: abdomen soft, non-tender, normo-active bowel sounds, no masses, no rebound or guarding. BACK: Back is symmetrical on inspection and there is no deformity, no midline tenderness, no CVA tenderness. Sacral ulcer present which appears to track down to bone. Dressing in place. UPPER EXTREMITIES: upper extremities are grossly normal. LOWER EXTREMITIES: No pitting edema. NEURO EXAM: Awake alert following commands moving upper extremities. Unable to move legs. MEDICAL DECISION MAKING: Patient is a 48-year-old male who presents ER for the above-stated complaint. IV was established with orders obtained. Labs show leukocytosis of 17,000. No significant anemia. BMP with mild hypokalemia 3.3. LFTs bilirubin was unremarkable. Pro-Andrea 0.02. UA does appear to be consistent with UTI with leuks and whites. CT shows an obstructive uropathy. Sanchez catheter was changed after discussion with urology at bedside. The discussed with the hospitalist patient was given dose of IV cefepime updated bedside admitted for further workup. Consults/Care Managements Discussions: Per MDM Triage Nursing notes reviewed. Limited review of prior medical records performed Vital Signs: reviewed and remarkable for HTN Differential diagnosis: Differential diagnoses includes but is not limited to gastritis, peptic ulcer disease, GERD, gallbladder disease, pancreatitis, small bowel obstruction, appendicitis, diverticulitis, hernia, urinary tract infection, torsion, perforation, trauma, infectious. ER treatment provided: See below Diagnostics interpreted by me include EKG and cardiac monitoring as listed below: -Cardiac Monitoring: An order was placed for continuous cardiac monitoring. The monitor shows a rate of 60 with sinus rhythm. -ECG: none -Laboratory studies:Interpreted by me as stated above in MDM and shown below. Imaging studies: Xrays: As interpreted by me: Portable AP upright 1 view of the chest shows no focal infiltrate CTs show: CT abdomen pelvis as described above Procedures:none Critical Care: None Past Med/Surg History Problem List (Updated 04/04/24 @ 17:48 by Eric Gonzalez DO) Hydronephrosis (Acute) Acute urinary retention (Acute) Leukocytosis (Acute) Complication, blocked suprapubic catheter Hypokalemia (Acute) Hypomagnesemia (Acute) Anemia (Acute) Quadriplegia (Acute) Sacral decubitus ulcer (Acute) Acute UTI (Acute) Hypotension (Acute) Encephalopathy Pneumonia (Acute) Complicated urinary tract infection (Acute Unknown) Change or removal of nonsurgical wound dressing Acute hypoxemic respiratory failure (Acute) Chest pain (Acute) Abdominal pain (Acute) Severe sepsis (Acute) MRSA carrier Pneumonia (Acute) Hypoxic respiratory failure (Acute) 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 Leg wound, right Leg wound, left History of pulmonary embolism Hypoxia (Acute) RSV (respiratory syncytial virus infection) Chronic pain Suprapubic catheter (Acute) Complicated UTI (urinary tract infection) (Acute) Sacral decubitus ulcer, stage IV (Acute) Chronic osteomyelitis of sacrum Medical History Aspiration pneumonitis Pneumonia Paraplegia Surgical History No pertinent past surgical history Social History Smoking Status: Current every day smoker Tobacco Type: Cigarettes Cigarettes Per Day: 50-60; Second Hand Exposure: Yes; Do You Dip or Chew Tobacco: No; Hx Alcohol Use: No Hx Substance Use: Yes Last Used Substance: Unknown Last Used Substance Other:: 03/03/24 Preferred Language: Mexican Communication Ability: Effective Respiratory Therapy Assistant Required: No Beliefs That Will Affect Care: None Current Living Situation: Alone Current Living Situation Comment: alone with 28/02 home care Feels Safe at Home: Yes Assistive Devices: Hospital Bed, Mechanical Lift and Wheelchair Allergies Allergies Allergy/AdvReac Type Severity Reaction Status Date / Time No Known Allergies Allergy Verified 01/29/24 21:32 Home Meds Home Medications Medication Instructions Recorded Confirmed Naloxone 4 Mg/0.1ml 1 spray intranasal (ALT) 01/29/24 04/04/24 DIRECTED PRN opiod od Sterile Water For Irrigation 1 ea NA BID 01/29/24 04/04/24 amitriptyline 25 mg tablet 25 mg PO HS 01/29/24 04/04/24 apixaban 5 mg tablet (Eliquis) 5 mg PO [facility] 01/29/24 04/04/24 bisacodyl 10 mg rectal suppository 10 mg [place] [facility] 01/29/24 04/04/24 budesonide-formoterol HFA 160 2 puff inhalation [facility] 01/29/24 04/04/24 mcg-4.5 mcg/actuation aerosol inhaler celecoxib 200 mg capsule 200 mg PO DAILY PRN Pain 01/29/24 04/04/24 collagenase clostridium histo. 250 1 applic topical DAILY 01/29/24 04/04/24 unit/gram topical ointment docusate sodium 100 mg capsule 100 mg PO BID PRN Constipation 01/29/24 04/04/24 duloxetine 60 mg capsule,delayed 60 mg PO QAM 01/29/24 04/04/24 release sprinkle ferrous sulfate 325 mg (65 mg 325 mg PO QDB 01/29/24 04/04/24 iron) tablet gabapentin 100 mg capsule 100 mg PO TID 01/29/24 04/04/24 hydroxyzine HCl 25 mg tablet 25 mg PO DAILY PRN Anxiety 01/29/24 04/04/24 lactulose 20 gram/30 mL oral 20 g PO TID 01/29/24 04/04/24 solution lidocaine 5 % topical patch 1 patch topical DAILY PRN Pain 01/29/24 04/04/24 oxybutynin chloride 10 mg 10 mg PO QAM 01/29/24 04/04/24 tablet,extended release 24 hr potassium chloride 20 mEq 20 meq PO [facility] 01/29/24 04/04/24 tablet,extended release(part/cryst) sennosides 8.6 mg-docusate sodium 2 tab-cap PO HS 01/29/24 04/04/24 50 mg tablet (Senokot-S) simethicone 80 mg chewable tablet 80 mg PO TID 01/29/24 04/04/24 sodium hypochlorite 0.25 % 1 irrig topical BID 01/29/24 04/04/24 solution (Dakin's Solution) tiotropium bromide 2.5 2 puff inhalation QAM 01/29/24 04/04/24 mcg/actuation mist for inhalation (Spiriva Respimat) ascorbic acid (vitamin C) 500 mg 500 mg PO QAM 03/04/24 04/04/24 tablet (Vitamin C) famotidine 20 mg tablet 20 mg PO [facility] 03/04/24 04/04/24 melatonin 3 mg capsule 3 mg PO HS 03/04/24 04/04/24 pediatric multivitamin 1 tab PO DAILY 03/04/24 04/04/24 Previous Rx's Medication Instructions Recorded baclofen 20 mg tablet 20 mg PO TID PRN spasms #60 tabs 02/01/24 oxycodone 5 mg tablet 5 mg PO TID PRN pain (scale score 02/01/24 7-10) #9 tabs L.acidop,casei,lactis,rham-B.lact,corinna 1 cap PO DAILY #5 caps 04/01/24 625 mg (10 billion cell) capsule (Advanced Probiotic) midodrine 10 mg tablet 10 mg PO TID PRN Hypotension #30 04/01/24 tabs Results & Data (ED) Vital Signs Vital Signs - 24 hr 04/04/24 10:54 04/04/24 10:57 04/04/24 10:58 Temperature 37.1 C Temperature Source Oral Pulse Rate 63 60 Pulse Rate [Finger] Pulse Rate from SpO2 Sensor 65 Pulse Rhythm Regular Pulse Rhythm [Finger] Pulse Strength Normal Pulse Strength [Finger] Respiratory Rate 15 18 Respiratory Effort / Characteristics Non-Labored Respiratory Depth Normal Respiratory Pattern Regular Blood Pressure 184/105 H 184/105 H Blood Pressure [Right Arm] Blood Pressure Mean 136 131 Blood Pressure Mean [Right Arm] Blood Pressure Position Lying Blood Pressure Position [Right Arm] Pulse Oximetry 93 94 Oxygen Delivery Method Room Air Sepsis Recent Fever Within 48 Hours No Sepsis New/Unexplained Change in Mental Status N/A Sepsis Action Taken by Nursing No Action Required 04/04/24 11:00 04/04/24 11:03 04/04/24 11:12 Temperature Temperature Source Pulse Rate 74 Pulse Rate [Finger] Pulse Rate from SpO2 Sensor 71 Pulse Rhythm Regular Pulse Rhythm [Finger] Pulse Strength Pulse Strength [Finger] Respiratory Rate 22 Respiratory Effort / Characteristics Respiratory Depth Respiratory Pattern Blood Pressure 142/111 H Blood Pressure [Right Arm] Blood Pressure Mean 117 Blood Pressure Mean [Right Arm] Blood Pressure Position Blood Pressure Position [Right Arm] Pulse Oximetry 94 94 Oxygen Delivery Method Room Air Sepsis Recent Fever Within 48 Hours Sepsis New/Unexplained Change in Mental Status Sepsis Action Taken by Nursing 04/04/24 11:30 04/04/24 11:42 04/04/24 12:00 Temperature Temperature Source Pulse Rate 69 60 Pulse Rate [Finger] 58 L Pulse Rate from SpO2 Sensor 65 59 L Pulse Rhythm Pulse Rhythm [Finger] Regular Pulse Strength Pulse Strength [Finger] Normal Respiratory Rate 18 13 14 Respiratory Effort / Characteristics Non-Labored Respiratory Depth Normal Respiratory Pattern Regular Blood Pressure Blood Pressure [Right Arm] 156/113 H Blood Pressure Mean Blood Pressure Mean [Right Arm] 127 Blood Pressure Position Blood Pressure Position [Right Arm] Lying Pulse Oximetry 97 96 96 Oxygen Delivery Method Room Air Sepsis Recent Fever Within 48 Hours Sepsis New/Unexplained Change in Mental Status Sepsis Action Taken by Nursing 04/04/24 12:14 04/04/24 12:30 04/04/24 12:30 Temperature Temperature Source Pulse Rate 67 Pulse Rate [Finger] Pulse Rate from SpO2 Sensor 97 H Pulse Rhythm Pulse Rhythm [Finger] Pulse Strength Pulse Strength [Finger] Respiratory Rate Respiratory Effort / Characteristics Respiratory Depth Respiratory Pattern Blood Pressure 147/108 H Blood Pressure [Right Arm] Blood Pressure Mean 122 Blood Pressure Mean [Right Arm] Blood Pressure Position Blood Pressure Position [Right Arm] Pulse Oximetry 96 Oxygen Delivery Method Sepsis Recent Fever Within 48 Hours Sepsis New/Unexplained Change in Mental Status Sepsis Action Taken by Nursing 04/04/24 13:00 04/04/24 13:00 04/04/24 13:00 Temperature Temperature Source Pulse Rate Pulse Rate [Finger] Pulse Rate from SpO2 Sensor 67 Pulse Rhythm Pulse Rhythm [Finger] Pulse Strength Pulse Strength [Finger] Respiratory Rate Respiratory Effort / Characteristics Respiratory Depth Respiratory Pattern Blood Pressure 157/109 H 157/109 H Blood Pressure [Right Arm] Blood Pressure Mean 120 120 Blood Pressure Mean [Right Arm] Blood Pressure Position Blood Pressure Position [Right Arm] Pulse Oximetry 92 Oxygen Delivery Method Sepsis Recent Fever Within 48 Hours Sepsis New/Unexplained Change in Mental Status Sepsis Action Taken by Nursing 04/04/24 13:27 04/04/24 13:31 04/04/24 13:51 Temperature Temperature Source Pulse Rate Pulse Rate [Finger] Pulse Rate from SpO2 Sensor 80 115 H Pulse Rhythm Pulse Rhythm [Finger] Pulse Strength Pulse Strength [Finger] Respiratory Rate Respiratory Effort / Characteristics Respiratory Depth Respiratory Pattern Blood Pressure 139/110 H Blood Pressure [Right Arm] Blood Pressure Mean 115 Blood Pressure Mean [Right Arm] Blood Pressure Position Blood Pressure Position [Right Arm] Pulse Oximetry 95 Oxygen Delivery Method Sepsis Recent Fever Within 48 Hours Sepsis New/Unexplained Change in Mental Status Sepsis Action Taken by Nursing 04/04/24 14:01 04/04/24 14:06 04/04/24 14:09 Temperature Temperature Source Pulse Rate 95 H Pulse Rate [Finger] Pulse Rate from SpO2 Sensor 93 H Pulse Rhythm Pulse Rhythm [Finger] Pulse Strength Pulse Strength [Finger] Respiratory Rate 18 Respiratory Effort / Characteristics Respiratory Depth Respiratory Pattern Blood Pressure 64/48 L 95/65 L Blood Pressure [Right Arm] Blood Pressure Mean 55 71 Blood Pressure Mean [Right Arm] Blood Pressure Position Blood Pressure Position [Right Arm] Pulse Oximetry 94 Oxygen Delivery Method Sepsis Recent Fever Within 48 Hours Sepsis New/Unexplained Change in Mental Status Sepsis Action Taken by Nursing Laboratory Data 04/04/24 11:17 04/04/24 11:17 Lab Results 04/04/24 04/04/24 Range/Units 11:17 13:45 WBC 17.71 H (4.8-10.8) K/ul RBC 6.02 (4.70-6.10) M/uL Hgb 16.1 (14.0-18.0) g/dl Hct 50.5 (42.0-52.0) % MCV 83.9 (80.0-100.0) fL MCH 26.7 (25.0-34.0) pg MCHC 31.9 L (32.0-36.0) g/dL RDW Std Deviation 54.5 H (36.4-46.3) fL RDW Coeff of Adelia 18.8 H (11.5-14.5) % Plt Count 506 H (130-400) K/uL MPV 9.5 (9.4-12.4) fL Immature Gran % (Auto) 0.5 % Neut % (Auto) 76.8 % Lymph % (Auto) 13.9 % Holmes % (Auto) 7.2 % Eos % (Auto) 0.9 % Baso % (Auto) 0.7 % Neut # (Auto) 13.61 H (1.40-6.50) K/uL Lymph # (Auto) 2.46 (1.20-3.40) K/uL Holmes # (Auto) 1.28 H (0.11-0.59) K/uL Eos # (Auto) 0.16 (0.00-0.50) K/uL Baso # (Auto) 0.12 (0.00-0.20) K/uL Immature Gran # (Auto) 0.08 (0.01-0.20) K/uL Sodium 141 (136-145) mmol/L Potassium 3.3 L (3.5-5.1) mmol/L Chloride 106 (98-107) mmol/L Carbon Dioxide 27 (21-32) mmol/L Anion Gap 8 (3-11) BUN 8 (6-23) mg/dl Creatinine 0.60 (0.6-1.4) mg/dl Est Cr Clr Drug Dosing 170.5 ml/min Est GFR ( Amer) 138.8 ml/min Est GFR (Non-Af Amer) 119.7 ml/min BUN/Creatinine Ratio 13.3 (10-20) Glucose 107 H (70-99(Fasting)) mg/dl Calcium 9.9 (8.6-10.3) mg/dl Magnesium 1.7 (1.7-2.4) mg/dl Total Bilirubin 0.3 (0.2-1.0) mg/dl AST 16 (13-39) U/L ALT 8 (7-52) U/L Alkaline Phosphatase 150 H (34-104) U/L Total Protein 8.1 (6.0-8.3) gm/dl Albumin 4.2 (3.4-5.0) gm/dl Globulin 3.9 (2.5-4.0) gm/dl Albumin/Globulin Ratio 1.1 (0.9-2) Lipase 20 (11-82) U/L Procalcitonin < 0.02 (0-0.5) ng/ml Urine Color Straw Urine Appearance Turbid A (Clear) Urine pH 6.5 (4.5-7.5) Ur Specific [place] 1.022 (1.000-1.030) Urine Protein Trace H (Negative) Urine Glucose (UA) Negative (Negative) Urine Ketones Negative (Negative) Urine Blood 3+ H (Negative) Urine Nitrite Negative (Negative) Urine Bilirubin Negative (Negative) Urine Urobilinogen Negative (Negative) Ur Leukocyte Esterase 3+ H (Negative) Urine WBC (Auto) >50 H (0-5) /hpf Urine RBC (Auto) >20 H (0-2) /hpf U Hyaline Cast (Auto) 3-5 H (0-2) /lpf U Epithel Cells (Auto) 0-2 (0-2) /hpf Urine Bacteria (Auto) None Seen (None Seen) Calcium Oxalate Crystal Present A (None Prsent) Administered Medications Vancomycin HCl 2,250 mg/ (Sodium Chloride) 545 mls @ 200 mls/hr IV ONE ONE Stop: 04/04/24 19:13 Last Admin: 04/04/24 17:24 Dose: 200 mls/hr Documented By: [facility] Sodium Chloride (Nss) 1,000 mls @ 125 mls/hr IV .Q8H ROSALES Stop: 04/05/24 16:59 Last Admin: 04/04/24 17:25 Dose: 125 mls/hr Documented By: [facility] Discontinued Medications Hydrocortisone Sodium Succinate (Hydrocortisone Sod Succinate 100 Mg/2 Ml Vial) 100 mg IV NOW STA Stop: 04/04/24 16:23 Last Admin: 04/04/24 16:48 Dose: 100 mg Documented By: [facility] [place] Sodium Chloride (Nss) 500 mls @ 999 mls/hr IV .Q31M ONE Stop: 04/04/24 11:35 Last Infusion: 04/04/24 12:00 Dose: Infused Documented By: [facility] [place] Admin: 04/04/24 11:22 Dose: 999 mls/hr Documented By: [facility] [place] Sodium Chloride (Nss) 1,000 mls @ 999 mls/hr IV .Q1H1M ONE Stop: 04/04/24 13:18 Last Infusion: 04/04/24 16:36 Dose: Infused Documented By: [facility] [place] Admin: 04/04/24 12:45 Dose: 999 mls/hr Documented By: [facility] [place] Sodium Chloride (Nss) 1,000 mls @ 999 mls/hr IV .Q1H1M ONE Stop: 04/04/24 15:57 Last Infusion: 04/04/24 16:36 Dose: Infused Documented By: [facility] [place] Admin: 04/04/24 15:00 Dose: 999 mls/hr Documented By: [facility] [place] Cefepime HCl (Maxipime) 2,000 mg in 20 mls @ 5 mls/min IV NOW STA; Protocol Stop: 04/04/24 16:24 Last Admin: 04/04/24 16:48 Dose: 5 mls/min Documented By: [facility] [place] Ioversol (Optiray 320 100ml) 93 ml IV ONCE ONE Stop: 04/04/24 12:34 Last Admin: 04/04/24 12:33 Dose: 93 ml Documented By: [facility] Midodrine (Midodrine Hcl 10 Mg Tab) 10 mg PO ONE ONE Stop: 04/04/24 14:52 Last Admin: 04/04/24 15:38 Dose: 10 mg Documented By: [facility] [place] Potassium Chloride (Potassium Chloride Crtab 20 Meq Tabcr) 20 meq PO NOW STA Stop: 04/04/24 16:45 Last Admin: 04/04/24 17:24 Dose: 20 meq Documented By: [facility] Imaging Data Radiologist's Impression: Abdomen/Pelvis CT 04/04/24 11:05 CT SCAN OF THE ABDOMEN AND PELVIS WITH IV CONTRAST CLINICAL HISTORY: Generalized abdominal pain. COMPARISON STUDY: Prior abdominal CT scans, most recently dated 03/31/2024. TECHNIQUE: Following the IV administration of 93 cc of Optiray 320, CT scan of the abdomen and pelvis is performed from the lung bases to the proximal femora. Images are reviewed in the axial, sagittal, and coronal planes. IV contrast was administered without complication. A dose lowering technique was utilized adhering to the principles of ALARA. The examination is degraded by streak artifact from the arms which could not be elevated above the abdomen. There is also motion artifact. CT DOSE: 1537.96 mGy.cm FINDINGS: Lung bases: The heart is top normal in size and without pericardial effusion. Evaluation of the lung bases is significantly degraded by motion artifact. Scarring/atelectasis is noted at both lung bases. No pleural effusion is identified. The distal esophagus appears mildly thick walled. Liver: The contrast-enhanced liver is normal in size, contour, and attenuation. There is mild intrahepatic biliary ductal dilatation. The hepatic veins and portal veins are patent. Gallbladder: Surgically absent noting clips in the gallbladder fossa. Spleen: Normal in size and attenuation. Pancreas: Mildly atrophic and grossly unremarkable. Adrenal glands: Unremarkable. Kidneys: The contrast-enhanced kidneys are normal in size there there is moderate to severe bilateral hydroureteronephrosis, likely secondary to the degree of bladder distention. There are at least 4 nonobstructing left renal calculi which measure up to 15 mm. A 2 mm nonobstructing calculus is seen on the right. No ureteral stone is seen. The kidneys enhance symmetrically. There is nonspecific bilateral perinephric and periureteric stranding. Abdominal vasculature: The abdominal aorta is normal in course and caliber noting scattered foci of atherosclerotic calcification. Bowel: There is mild to moderate colonic fecal retention. No bowel obstruction is seen. The rectal wall appears thickened with mucosal hyperemia. The appendix is not identified and reported surgically absent. Peritoneum: There is no intraperitoneal free air or abdominal ascites. There is a small fat-containing umbilical hernia. Lymphadenopathy: None. Pelvic viscera: The bladder is markedly distended and a suprapubic catheter is in place. The bladder is thick-walled and hyperemic. There is persistent inflammation and fluid. There are small bilateral fat containing groin hernias. The prostate gland is diminutive and heterogeneous. There are likely calculi within a prostate defect. Skeletal structures: The skeletal structures are osteopenic. The distal sacrum and coccyx are surgically absent. There is an overlying wound, with surrounding soft tissue thickening and possible packing material. Sclerotic change within the adjacent sacrum likely represents chronic osteomyelitis. No lytic or blastic lesions are seen. Postoperative change is noted in the forearm/wrist bilaterally. IMPRESSION: 1. Streak and motion compromised examination. 2. The bladder is markedly distended with a suprapubic catheter in place. The bladder wall is thickened and hyperemic, with pericystic stranding and fluid. The appearance favors a bladder obstruction and cystitis. Correlate with clinical findings and urinalysis. 3. There is moderate to severe bilateral hydroureteronephrosis. This is likely related to the degree of bladder distention. There is also perinephric and periureteric stranding. Ascending urinary tract infections are not excluded. 4. Bilateral nephrolithiasis. No ureteral stone is seen. There are also likely calculi within a prostate defect. 5. The rectal wall appears thickened with mucosal hyperemia. Correlate clinically for evidence of a nonspecific proctitis. 6. Postsurgical change is again seen involving the sacrum and coccyx with an overlying wound and surrounding soft tissue thickening. There may be packing material in place. Sclerotic change in the adjacent sacrum site likely represents chronic osteomyelitis. Correlate clinically. 7. The distal esophagus appears thick-walled. Correlate clinically for evidence of esophagitis. 8. Additional findings as above. ACT 112: Negative or not required by law. Electronically signed by: Ramo Green M.D. 04/04/2024 1:08 PM Discharge Plan Visit Data Chief Complaint: Hypertension Stated Complaint: HYPERTENSION ED Provider: Eric Gonzalez Discharge Problem: Leukocytosis, Suprapubic catheter, Acute urinary retention, Hydronephrosis Patient Disposition: Admitted As Inpatient Discharge Instructions Interventions: ED Discharge Assessment Last Done: 04/04/24 16:31 Discharge Problem: Leukocytosis Qualifiers: Leukocytosis type: unspecified Qualified Code(s): D72.829 - Elevated white blood cell count, unspecified Hydronephrosis Qualifiers: Hydronephrosis type: unspecified Qualified Code(s): N13.30 - Unspecified hydronephrosis
[2024-04-04] MEDS: SODIUM CHLORIDE 0.9% 500 ML IV ONE (11:22)
[2024-04-04 11:50] LABS: Basophils # (auto) 0.12 K/uL (0.00-0.20); Basophils % (auto) 0.7 %; Eosinophils # (auto) 0.16 K/uL (0.00-0.50); Eosinophils % (auto) 0.9 %; Hematocrit (blood only) 50.5 % (42.0-52.0); Hemoglobin 16.1 g/dl (14.0-18.0); Immature Granulocytes # (auto) 0.08 K/uL (0.01-0.20); Immature Granulocytes % (auto) 0.5 %; Lymphocytes # (auto) 2.46 K/uL (1.20-3.40); Lymphocytes % (auto) 13.9 %; Mean Corpuscular Hemoglobin 26.7 pg (25.0-34.0); Mean Corpuscular Hgb Conc 31.9 g/dL (32.0-36.0); Mean Corpuscular Volume 83.9 fL (80.0-100.0); Mean Platelet Volume 9.5 fL (9.4-12.4); Monocytes # (auto) 1.28 K/uL (0.11-0.59); Monocytes % (auto) 7.2 %; Neutrophils # (auto) 13.61 K/uL (1.40-6.50); Neutrophils % (auto) 76.8 %; Platelet Count 506 K/uL (130-400); RDW Coefficient of Variation 18.8 % (11.5-14.5); RDW Standard Deviation 54.5 fL (36.4-46.3); Red Blood Count 6.02 M/uL (4.70-6.10); White Blood Count 17.71 K/ul (4.8-10.8)
[2024-04-04 11:51] LABS: Albumin Globulin Ratio 1.1 (0.9-2); Albumin Level 4.2 gm/dl (3.4-5.0); BUN Creatinine Ratio 13.3 (10-20); Bilirubin,Total 0.3 mg/dl (0.2-1.0); Calcium 9.9 mg/dl (8.6-10.3); Creatinine Clr Calc Pharmacy 170.5 ml/min; Est GFR (African American) 138.8 ml/min; Est GFR (Non-African American) 119.7 ml/min; Globulin 3.9 gm/dl (2.5-4.0); Potassium 3.3 mmol/L (3.5-5.1); Total Protein 8.1 gm/dl (6.0-8.3)
[2024-04-04] MEDS: OPTIRAY 320 100ml IV ONE (12:33)
[2024-04-04] MEDS: SODIUM CHLORIDE 0.9% 1,000 ML IV ONE ×2 (12:45→15:00)
--- NOTE | 2024-04-04 13:09 | CT Scan Report ---
CT SCAN OF THE ABDOMEN AND PELVIS WITH IV CONTRAST CLINICAL HISTORY: Generalized abdominal pain. COMPARISON STUDY: Prior abdominal CT scans, most recently dated 03/31/2024. TECHNIQUE: Following the IV administration of 93 cc of Optiray 320, CT scan of the abdomen and pelvis is performed from the lung bases to the proximal femora. Images are reviewed in the axial, sagittal, and coronal planes. IV contrast was administered without complication. A dose lowering technique was utilized adhering to the principles of ALARA. The examination is degraded by streak artifact from th e arms which could not be elevated above the abdomen. There is also motion artifact. CT DOSE: 1537.96 mGy.cm FINDINGS: Lung bases: The heart is top normal in size and without pericardial effusion. Evaluation of the lung bases is significantly degraded by motion artifact. Scarring/atelectasis is noted at both lung bases . No pleural effusion is identified. The distal esophagus appears mildly thick walled. Liver: The contrast-enhanced liver is normal in size, contour, and attenuation. There is mild intrahe patic biliary ductal dilatation. The hepatic veins and portal veins are patent. Gallbladder: Surgically absent noting clips in the gallbladder fossa. Spleen: Normal in size and attenuation. Pancreas: Mildly atrophic and grossly unremarkable. Adrenal glands: Unremarkable. Kidneys: The contrast-enhanced kidneys are normal in size there there is moderate to severe bilateral hydroureteronephrosis, likely secondary to the degree of bladder distention. There are at least 4 no nobstructing left renal calculi which measure up to 15 mm. A 2 mm nonobstructing calculus is seen on the right. No ureteral stone is seen. The kidneys enhance symmetrically. There is nonspecific bilater al perinephric and periureteric stranding. Abdominal vasculature: The abdominal aorta is normal in course and caliber noting scattered foci of a therosclerotic calcification. Bowel: There is mild to moderate colonic fecal retention. No bowel obstruction is seen. The rectal wa ll appears thickened with mucosal hyperemia. The appendix is not identified and reported surgically absent. Peritoneum: There is no intraperitoneal free air or abdominal ascites. There is a small fat-containin g umbilical hernia. Lymphadenopathy: None. Pelvic viscera: The bladder is markedly distended and a suprapubic catheter is in place. The bladder is thick-walled and hyperemic. There is persistent inflammation and fluid. There are small bilateral fat containing groin hernias. The prostate gland is diminutive and heterogeneous. There are likely ca lculi within a prostate defect. Skeletal structures: The skeletal structures are osteopenic. The distal sacrum and coccyx are surgica lly absent. There is an overlying wound, with surrounding soft tissue thickening and possible packing material. Sclerotic change within the adjacent sacrum likely represents chronic osteomyelitis. No ly tic or blastic lesions are seen. Postoperative change is noted in the forearm/wrist bilaterally. IMPRESSION: 1. Streak and motion compromised examination. 2. The bladder is markedly distended with a suprapubic catheter in place. The bladder wall is thicken ed and hyperemic, with pericystic stranding and fluid. The appearance favors a bladder obstruction an d cystitis. Correlate with clinical findings and urinalysis. 3. There is moderate to severe bilateral hydroureteronephrosis. This is likely related to the degree of bladder distention. There is also perinephric and periureteric stranding. Ascending urinary tract infections are not excluded. 4. Bilateral nephrolithiasis. No ureteral stone is seen. There are also likely calculi within a prost ate defect. 5. The rectal wall appears thickened with mucosal hyperemia. Correlate clinically for evidence of a n onspecific proctitis. 6. Postsurgical change is again seen involving the sacrum and coccyx with an overlying wound and surr ounding soft tissue thickening. There may be packing material in place. Sclerotic change in the adjac ent sacrum site likely represents chronic osteomyelitis. Correlate clinically. 7. The distal esophagus appears thick-walled. Correlate clinically for evidence of esophagitis. 8. Additional findings as above. ACT 112: Negative or not required by law. Electronically signed by: Ramo Green M.D. 04/04/2024 1:08 PM
[2024-04-04] MEDS ORDERED: CEFEPIME 2,000 MG in SYRINGE 0 ML IV STA (13:25)
--- NOTE | 2024-04-04 14:25 | Urology Consultation ---
Date of Consultation April 04, 2024 Assessment & Plan (1) Complication, blocked suprapubic catheter: (2) Suprapubic catheter: 48 yo/M with neurogenic bladder managed with suprapubic catheter presented to the emergency department for evaluation of elevated blood pressure and was found to have an obstructed suprapubic catheter. Urology consulted for SP catheter exchange 16F suprapubic catheter was exchanged without difficulty Okay to flush suprapubic catheter as needed for catheter obstruction Recommend routine catheter care and monthly catheter exchanges Recommend he follow-up with his established urologist, Dr. 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 On arrival to ED, he was afebrile, hypertensive. Lab work showed creatinine 0.60, WBC 17.71, hemoglobin 16.1. CT abdomen pelvis with IV contrast showed bladder markedly distended with a suprapubic catheter in place, bladder wall was thickened and hyperemic with pericystic stranding and fluid. There is moderate to severe bilateral hydroureteronephrosis, perinephric and periureteral stra nding. Bilateral nephrolithiasis. Urology is consulted for suprapubic catheter exchange. Patient seen and examined in the emergency department. He reports his suprapubic catheter stopped draining yesterday evening. Nursing was able to reposition it since he arrived and it appears to be draining. It was last exchanged on 03/07 when he was in the hospital. Denies fever or chills. Allergies Allergy/AdvReac Type Severity Reaction Status Date / Time No Known Allergies Allergy Verified 01/29/24 21:32 Home Medications Medication Instructions Recorded Confirmed Type Naloxone 4 Mg/0.1ml 1 spray intranasal (ALT) 01/29/24 04/04/24 History DIRECTED PRN opiod od Sterile Water For Irrigation 1 ea NA BID 01/29/24 04/04/24 History amitriptyline 25 mg tablet 25 mg PO HS 01/29/24 04/04/24 History apixaban 5 mg tablet (Eliquis) 5 mg PO AMHS 01/29/24 04/04/24 History bisacodyl 10 mg rectal suppository [address] AMPM 01/29/24 04/04/24 History budesonide-formoterol HFA 160 2 puff inhalation AMHS 01/29/24 04/04/24 History mcg-4.5 mcg/actuation aerosol inhaler celecoxib 200 mg capsule 200 mg PO DAILY PRN Pain 01/29/24 04/04/24 History collagenase clostridium histo. 250 1 applic topical DAILY 01/29/24 04/04/24 History unit/gram topical ointment docusate sodium 100 mg capsule 100 mg PO BID PRN Constipation 01/29/24 04/04/24 History duloxetine 60 mg capsule,delayed 60 mg PO QAM 01/29/24 04/04/24 History release sprinkle ferrous sulfate 325 mg (65 mg 325 mg PO QDB 01/29/24 04/04/24 History iron) tablet gabapentin 100 mg capsule 100 mg PO TID 01/29/24 04/04/24 History hydroxyzine HCl 25 mg tablet 25 mg PO DAILY PRN Anxiety 01/29/24 04/04/24 History lactulose 20 gram/30 mL oral 20 g PO TID 01/29/24 04/04/24 History solution lidocaine 5 % topical patch 1 patch topical DAILY PRN Pain 01/29/24 04/04/24 History oxybutynin chloride 10 mg 10 mg PO QAM 01/29/24 04/04/24 History tablet,extended release 24 hr potassium chloride 20 mEq 20 meq PO AMHS 01/29/24 04/04/24 History tablet,extended release(part/cryst) sennosides 8.6 mg-docusate sodium 2 tab-cap PO HS 01/29/24 04/04/24 History 50 mg tablet (Senokot-S) simethicone 80 mg chewable tablet 80 mg PO TID 01/29/24 04/04/24 History sodium hypochlorite 0.25 % 1 irrig topical BID 01/29/24 04/04/24 History solution (Dakin's Solution) tiotropium bromide 2.5 2 puff inhalation QAM 01/29/24 04/04/24 History mcg/actuation mist for inhalation (Spiriva Respimat) baclofen 20 mg tablet 20 mg PO TID PRN spasms #60 tabs 02/01/24 04/04/24 Rx oxycodone 5 mg tablet 5 mg PO TID PRN pain (scale score 02/01/24 04/04/24 Rx 7-10) #9 tabs ascorbic acid (vitamin C) 500 mg 500 mg PO QAM 03/04/24 04/04/24 History tablet (Vitamin C) famotidine 20 mg tablet 20 mg PO AMHS 03/04/24 04/04/24 History melatonin 3 mg capsule 3 mg PO HS 03/04/24 04/04/24 History pediatric multivitamin 1 tab PO DAILY 03/04/24 04/04/24 History L.acidop,casei,lactis,rham-B.lact,corinna 1 cap PO DAILY #5 caps 04/01/24 04/04/24 Rx 625 mg (10 billion cell) capsule (Advanced Probiotic) amoxicillin 500 mg-potassium 1 tab PO BID #6 tabs 04/01/24 04/04/24 Rx clavulanate 125 mg tablet (Augmentin) midodrine 10 mg tablet 10 mg PO TID PRN Hypotension #30 04/01/24 04/04/24 Rx tabs Patient History Medical History Aspiration pneumonitis Pneumonia Paraplegia Surgical History No pertinent past surgical history Social History Smoking Status: Current every day smoker Tobacco Type: Cigarettes Cigarettes Per Day: 50-60; Second Hand Exposure: Yes; Do You Dip or Chew Tobacco: No; Hx Alcohol Use: No Hx Substance Use: Yes Last Used Substance: Unknown Last Used Substance Other:: 03/03/24 Preferred Language: [place]ijani Communication Ability: Effective Environmental Services Manager Required: No Beliefs That Will Affect Care: None Current Living Situation: Alone Current Living Situation Comment: alone with 28/02 home care Feels Safe at Home: Yes Assistive Devices: Hospital Bed, Mechanical Lift and Wheelchair Review of Systems Review of Systems: All systems reviewed & are unremarkable except as noted in HPI & below Physical Exam Constitutional: no acute distress Respiratory: normal respiratory effort; no respiratory distress and no labored breathing Gastrointestinal (Abdomen): Inspection/Auscultation: abdomen normal to inspection; abdomen not distended Neurologic: awake Psychiatric: Orientation: alert and oriented x 3 Genitourinary: Patient with a 16F suprapubic catheter intact Patient verbally consented to suprapubic catheter change. Balloon was deflated and catheter was removed without difficulty. Patient was prepped and draped using typical sterile fashion. A well lubricated 16F catheter was inserted into the suprapubic tract without difficulty. Balloon was inflated to 10 mL. Patient tolerated the procedure, no complications noted. The catheter was patent and draining appropriately at completion. Results & Data Vital Signs (Past 12 Hours) Vital Signs Temp Pulse Pulse Resp BP BP Pulse Ox 04/04/24 13:51 95 04/04/24 13:31 139/110 H 04/04/24 13:00 157/109 H 04/04/24 13:00 157/109 H 04/04/24 13:00 92 04/04/24 12:30 147/108 H 04/04/24 12:30 96 04/04/24 12:14 67 04/04/24 12:00 60 14 96 04/04/24 11:42 69 13 96 04/04/24 11:30 58 L 18 156/113 H 97 04/04/24 11:12 94 04/04/24 11:03 74 22 94 04/04/24 11:00 142/111 H 04/04/24 10:58 37.1 C 60 18 184/105 H 94 04/04/24 10:57 63 15 93 04/04/24 10:54 184/105 H O2 Del Method 04/04/24 13:51 04/04/24 13:31 04/04/24 13:00 04/04/24 13:00 04/04/24 13:00 04/04/24 12:30 04/04/24 12:30 04/04/24 12:14 04/04/24 12:00 04/04/24 11:42 04/04/24 11:30 Room Air 04/04/24 11:12 Room Air 04/04/24 11:03 04/04/24 11:00 04/04/24 10:58 Room Air 04/04/24 10:57 04/04/24 10:54 PG Care Time/CCT Total # of Minutes Spent Total Time Spent with Patient: Total time spent is greater than 50% in coordination of care (as documented) at patient's floor/unit and/or counseling patient: Coding Level of Care Code 86621 IN/OBS CONSULT LVL 3,45M Diagnoses Complication, blocked suprapubic catheter T83.090A Suprapubic catheter Z93.59
--- NOTE | 2024-04-04 14:26 | History & Physical Report ---
Date of Service April 04, 2024 Assessment & Plan (1) Hypotension: (2) Complicated urinary tract infection: (3) Complication, blocked suprapubic catheter: (4) Quadriplegia: (5) Sacral decubitus ulcer, stage IV: (6) Chronic osteomyelitis of sacrum: (7) Anemia: (8) Hypokalemia: Plan: Acute on Chronic hypotension Complicated urinary tract infection: Complicated UTI Catheter associated UTI Possible sepsis Blocked suprapubic catheter H/O neurogenic bladder with chronic indwelling suprapubic catheter H/O nephrolithiasis ?esophagitis Recently treated for pseudomonas, E. coli UTI with cefepime per ID recommendations. Recent discharge on 04/01/24. In ER noted suprapubic catheter not draining. In ER urology was consulted and exchanged suprapubic catheter today. Urology signed off. States had small BM in ER During ER course BP went from 184/105 to 64/48. Had 1500ml NSS with initial improvement of BP to 95/64 and repeat 74/47. Given additional 1L NSS and midodrine 10mg po, hydrocortisone 100mg IV and BPs improved 107/75 Unfortunately initial antibiotics ordered in ER were not given. CT abd/pelvis: The bladder is markedly distended with a suprapubic catheter in place. The bladder wall is thickened and hyperemic, with pericystic stranding and fluid. The appearance favors a bladder obstruction and cystitis. There is moderate to severe bilateral hydroureteronephrosis. This is likely related to the degree of bladder distention. There is also perinephric and periureteric stranding. Bilateral nephrolithiasis. No ureteral stone is seen. There are also likely calculi within a prostate defect.The rectal wall appears thickened with mucosal hyperemia. Correlate clinically for evidence of a nonspecific proctitis. The distal esophagus appears thick-walled. Correlate clinically for evidence of esophagitis. Blood culture, urine culture pending Empirically started on IV cefepime, Vancomycin Blood pressure improved with IV fluids Continue IV fluids, midodrine If cultures positive may need to consider ID consult Will start IV Protonix. Patient reports nausea. Hold home Celebrex. May need to consider GI consult for possible esophagitis. CBC, BMP in am Chronic sacral decubitus ulcer stage IV Chronic osteomyelitis CT Abd/pelvis: Postsurgical change is again seen involving the sacrum and coccyx with an overlying wound and surrounding soft tissue thickening. There may be packing material in place. Sclerotic change in the adjacent sacrum site likely represents chronic osteomyelitis. Correlate clinically. On cefepime, vancomycin as above Wound care consulted History asymptomatic episodic bradycardia Monitor on telemetry Previously advised to have outpatient Zio monitor Hypokalemia K: 3.3 Replete and monitor electrolytes as needed. Patient denied KCl in ER COPD Tobacco use disorder No signs of acute exacerbation Continue home inhalers Nebs prn Substance use disorder Reports last smoked cocaine 3 days ago and last smoked marijuana yesterday In past reports used oxycodone. PDMP reviewed and not filled since 01/2024. 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 See addendum I spent a total of 82 minutes reviewing notes, outpatient records, labs, medication, coordinating, documenting and providing care for this patient excluding time spent in the performance of separately billed services. 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 History obtained from patient and inpatient chart review. History recurrent hospitalizations. Per chart review most recent hospitalization 03/24/2024-04/01/2024 for complicated UTI and possible pyelo nephritis, possible sepsis. Urine culture + Pseudomonas, E. coli and was treated with 7-day course IV cefepime as recommended by infectious disease. Had CT abd/pelvis suggestive of distal proctocolitis and has chronic sacral decubitus ulcer and osteomyelitis with wound culture +pseudomonas, and was treated with cefepime as above. Patient states since discharge he has been feeling "like crap". Describes some nausea but is otherwise unable to describe further symptoms. Denies vomiting. Reports chronic problems having a BM. Today gave himself a suppository in attempts to have BM. States his catheter was not draining since last night. States noted some pink/red color urine. He reports taking his BP at home today and reports was 210/115 so he came to hospital for further evaluation. He report s chronic low BP. States didn't have meds today. He reports chronic abdominal pain and feels "like always does when have to poop or when my catheter not working". He states last smoked cocaine 3 days ago. Last used marijuana yesterday. States last used oxycodone yesterday. Has chronic pain to sacrum from wound that he states doesn't feel any worse. Denies known fever/chills, diaphoresis, vomiting, hematochezia, melena, diarrhea, HERNÁNDEZ, dizziness, syncope, CP, SOB, cough, sore throat, rhinorrhea, worsening abdominal pain, rashes. Allergies Allergy/AdvReac Type Severity Reaction Status Date / Time No Known Allergies Allergy Verified 01/29/24 21:32 Home Medications Medication Instructions Recorded Confirmed Type Naloxone 4 Mg/0.1ml 1 spray intranasal (ALT) 01/29/24 04/04/24 History DIRECTED PRN opiod od Sterile Water For Irrigation 1 ea NA BID 01/29/24 04/04/24 History amitriptyline 25 mg tablet 25 mg PO HS 01/29/24 04/04/24 History apixaban 5 mg tablet (Eliquis) 5 mg PO AMHS 01/29/24 04/04/24 History bisacodyl 10 mg rectal suppository 10 mg CA AMPM 01/29/24 04/04/24 History budesonide-formoterol HFA 160 2 puff inhalation AMHS 01/29/24 04/04/24 History mcg-4.5 mcg/actuation aerosol inhaler celecoxib 200 mg capsule 200 mg PO DAILY PRN Pain 01/29/24 04/04/24 History collagenase clostridium histo. 250 1 applic topical DAILY 01/29/24 04/04/24 History unit/gram topical ointment docusate sodium 100 mg capsule 100 mg PO BID PRN Constipation 01/29/24 04/04/24 History duloxetine 60 mg capsule,delayed 60 mg PO QAM 01/29/24 04/04/24 History release sprinkle ferrous sulfate 325 mg (65 mg 325 mg PO QDB 01/29/24 04/04/24 History iron) tablet gabapentin 100 mg capsule 100 mg PO TID 01/29/24 04/04/24 History hydroxyzine HCl 25 mg tablet 25 mg PO DAILY PRN Anxiety 01/29/24 04/04/24 History lactulose 20 gram/30 mL oral 20 g PO TID 01/29/24 04/04/24 History solution lidocaine 5 % topical patch 1 patch topical DAILY PRN Pain 01/29/24 04/04/24 History oxybutynin chloride 10 mg 10 mg PO QAM 01/29/24 04/04/24 History tablet,extended release 24 hr potassium chloride 20 mEq 20 meq PO AMHS 01/29/24 04/04/24 History tablet,extended release(part/cryst) sennosides 8.6 mg-docusate sodium 2 tab-cap PO HS 01/29/24 04/04/24 History 50 mg tablet (Senokot-S) simethicone 80 mg chewable tablet 80 mg PO TID 01/29/24 04/04/24 History sodium hypochlorite 0.25 % 1 irrig topical BID 01/29/24 04/04/24 History solution (Dakin's Solution) tiotropium bromide 2.5 2 puff inhalation QAM 01/29/24 04/04/24 History mcg/actuation mist for inhalation (Spiriva Respimat) baclofen 20 mg tablet 20 mg PO TID PRN spasms #60 tabs 02/01/24 04/04/24 Rx ascorbic acid (vitamin C) 500 mg 500 mg PO QAM 03/04/24 04/04/24 History tablet (Vitamin C) famotidine 20 mg tablet 20 mg PO AMHS 03/04/24 04/04/24 History melatonin 3 mg capsule 3 mg PO HS 03/04/24 04/04/24 History pediatric multivitamin 1 tab PO DAILY 03/04/24 04/04/24 History L.acidop,casei,lactis,rham-B.lact,corinna 1 cap PO DAILY #5 caps 04/01/24 04/04/24 Rx 625 mg (10 billion cell) capsule (Advanced Probiotic) midodrine 10 mg tablet 10 mg PO TID PRN Hypotension #30 04/01/24 04/04/24 Rx tabs Past Med/Surg History Problem List Hydronephrosis (Acute) Acute urinary retention (Acute) Leukocytosis (Acute) Complication, blocked suprapubic catheter Hypokalemia (Acute) Hypomagnesemia (Acute) Anemia (Acute) Quadriplegia (Acute) Sacral decubitus ulcer (Acute) Acute UTI (Acute) Hypotension (Acute) Encephalopathy Pneumonia (Acute) Complicated urinary tract infection (Acute Unknown) Change or removal of nonsurgical wound dressing Acute hypoxemic respiratory failure (Acute) Chest pain (Acute) Abdominal pain (Acute) Severe sepsis (Acute) MRSA carrier Pneumonia (Acute) Hypoxic respiratory failure (Acute) 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 Leg wound, right Leg wound, left History of pulmonary embolism Hypoxia (Acute) RSV (respiratory syncytial virus infection) Chronic pain Suprapubic catheter (Acute) Complicated UTI (urinary tract infection) (Acute) Sacral decubitus ulcer, stage IV (Acute) Chronic osteomyelitis of sacrum Medical History Aspiration pneumonitis Pneumonia Paraplegia Surgical History No pertinent past surgical history Social History Smoking Status: Current every day smoker Tobacco Type: Cigarettes Cigarettes Per Day: 50-60; Second Hand Exposure: Yes; Do You Dip or Chew Tobacco: No; Hx Alcohol Use: No Hx Substance Use: Yes Non-Prescribed Medications: Crack / Cocaine and Marijuana Preferred Language: Georgian Communication Ability: Effective Cause Analyst Required: No Beliefs That Will Affect Care: None Current Living Situation: Alone Current Living Situation Comment: alone with 28/02 home care Feels Safe at Home: Yes Assistive Devices: Hospital Bed, Mechanical Lift and Wheelchair Review of Systems Review of Systems: All systems reviewed & are unremarkable except as noted in HPI & below Physical Exam Physical Exam: General Appearance: WDWN, chronic ill appearing Head: normocephalic, atraumatic Eyes: normal inspection, EOM's intact, conjunctiva non-injected, anicteric Neck: supple, trachea midline Lungs: no respiratory distress, 93% on RA, decreased breath sounds throughout CV: RRR, no murmur, no pretibial edema Abd: normal BS, soft, diffuse tenderness to palpation lower abdomen, suprapubic catheter in place Ext: no cyanosis, no erythema Neuro: Alert, oriented to person, place, month, year, BUE: limited active movement, BLE: with 3/5, LE 0/5, alert awake and oriented x 3 Skin: warm, dry Results & Data Results & Data Vital Signs (Past 12 Hours) Vital Signs Temp Pulse Pulse Resp BP BP Pulse Ox 04/04/24 14:09 95 H 18 94 04/04/24 14:06 95/65 L 04/04/24 14:01 64/48 L 04/04/24 13:51 95 04/04/24 13:31 139/110 H 04/04/24 13:00 157/109 H 04/04/24 13:00 157/109 H 04/04/24 13:00 92 04/04/24 12:30 147/108 H 04/04/24 12:30 96 04/04/24 12:14 67 04/04/24 12:00 60 14 96 04/04/24 11:42 69 13 96 04/04/24 11:30 58 L 18 156/113 H 97 04/04/24 11:12 94 04/04/24 11:03 74 22 94 04/04/24 11:00 142/111 H 04/04/24 10:58 37.1 C 60 18 184/105 H 94 04/04/24 10:57 63 15 93 04/04/24 10:54 184/105 H O2 Del Method 04/04/24 14:09 04/04/24 14:06 04/04/24 14:01 04/04/24 13:51 04/04/24 13:31 04/04/24 13:00 04/04/24 13:00 04/04/24 13:00 04/04/24 12:30 04/04/24 12:30 04/04/24 12:14 04/04/24 12:00 04/04/24 11:42 04/04/24 11:30 Room Air 04/04/24 11:12 Room Air 04/04/24 11:03 04/04/24 11:00 04/04/24 10:58 Room Air 04/04/24 10:57 04/04/24 10:54 Laboratory Results Short CBC 04/04/24 Range/Units 11:17 WBC 17.71 H (4.8-10.8) K/ul Hgb 16.1 (14.0-18.0) g/dl Hct 50.5 (42.0-52.0) % Plt Count 506 H (130-400) K/uL BMP 04/04/24 11:17 Sodium 141 Potassium 3.3 L Chloride 106 Carbon Dioxide 27 BUN 8 Creatinine 0.60 Glucose 107 H Calcium 9.9 Liver Function 04/04/24 Range/Units 11:17 Total Bilirubin 0.3 (0.2-1.0) mg/dl AST 16 (13-39) U/L ALT 8 (7-52) U/L Alkaline Phosphatase 150 H (34-104) U/L Albumin 4.2 (3.4-5.0) gm/dl Urine 04/04/24 Range/Units 13:45 Urine Color Straw Urine Appearance Turbid A (Clear) Urine pH 6.5 (4.5-7.5) Ur Specific [place] 1.022 (1.000-1.030) Urine Protein Trace H (Negative) Urine Glucose (UA) Negative (Negative) Diagnostic Findings Abdomen/Pelvis CT 04/04/24 11:05 CT SCAN OF THE ABDOMEN AND PELVIS WITH IV CONTRAST CLINICAL HISTORY: Generalized abdominal pain. COMPARISON STUDY: Prior abdominal CT scans, most recently dated 03/31/2024. TECHNIQUE: Following the IV administration of 93 cc of Optiray 320, CT scan of the abdomen and pelvis is performed from the lung bases to the proximal femora. Images are reviewed in the axial, sagittal, and coronal planes. IV contrast was administered without complication. A dose lowering technique was utilized adhering to the principles of ALARA. The examination is degraded by streak artifact from the arms which could not be elevated above the abdomen. There is also motion artifact. CT DOSE: 1537.96 mGy.cm FINDINGS: Lung bases: The heart is top normal in size and without pericardial effusion. Evaluation of the lung bases is significantly degraded by motion artifact. Scarring/atelectasis is noted at both lung bases. No pleural effusion is identified. The distal esophagus appears mildly thick walled. Liver: The contrast-enhanced liver is normal in size, contour, and attenuation. There is mild intrahepatic biliary ductal dilatation. The hepatic veins and portal veins are patent. Gallbladder: Surgically absent noting clips in the gallbladder fossa. Spleen: Normal in size and attenuation. Pancreas: Mildly atrophic and grossly unremarkable. Adrenal glands: Unremarkable. Kidneys: The contrast-enhanced kidneys are normal in size there there is moderate to severe bilateral hydroureteronephrosis, likely secondary to the degree of bladder distention. There are at least 4 nonobstructing left renal calculi which measure up to 15 mm. A 2 mm nonobstructing calculus is seen on the right. No ureteral stone is seen. The kidneys enhance symmetrically. There is nonspecific bilateral perinephric and periureteric stranding. Abdominal vasculature: The abdominal aorta is normal in course and caliber noting scattered foci of atherosclerotic calcification. Bowel: There is mild to moderate colonic fecal retention. No bowel obstruction is seen. The rectal wall appears thickened with mucosal hyperemia. The appendix is not identified and reported surgically absent. Peritoneum: There is no intraperitoneal free air or abdominal ascites. There is a small fat-containing umbilical hernia. Lymphadenopathy: None. Pelvic viscera: The bladder is markedly distended and a suprapubic catheter is in place. The bladder is thick-walled and hyperemic. There is persistent inflammation and fluid. There are small bilateral fat containing groin hernias. The prostate gland is diminutive and heterogeneous. There are likely calculi within a prostate defect. Skeletal structures: The skeletal structures are osteopenic. The distal sacrum and coccyx are surgically absent. There is an overlying wound, with surrounding soft tissue thickening and possible packing material. Sclerotic change within the adjacent sacrum likely represents chronic osteomyelitis. No lytic or blastic lesions are seen. Postoperative change is noted in the forearm/wrist bilaterally. IMPRESSION: 1. Streak and motion compromised examination. 2. The bladder is markedly distended with a suprapubic catheter in place. The bladder wall is thickened and hyperemic, with pericystic stranding and fluid. The appearance favors a bladder obstruction and cystitis. Correlate with clinical findings and urinalysis. 3. There is moderate to severe bilateral hydroureteronephrosis. This is likely related to the degree of bladder distention. There is also perinephric and periureteric stranding. Ascending urinary tract infections are not excluded. 4. Bilateral nephrolithiasis. No ureteral stone is seen. There are also likely calculi within a prostate defect. 5. The rectal wall appears thickened with mucosal hyperemia. Correlate clinically for evidence of a nonspecific proctitis. 6. Postsurgical change is again seen involving the sacrum and coccyx with an overlying wound and surrounding soft tissue thickening. There may be packing material in place. Sclerotic change in the adjacent sacrum site likely represents chronic osteomyelitis. Correlate clinically. 7. The distal esophagus appears thick-walled. Correlate clinically for evidence of esophagitis. 8. Additional findings as above. ACT 112: Negative or not required by law. Electronically signed by: Ramo Green M.D. 04/04/2024 1:08 PM Chest X-Ray 04/04/24 15:14 XR chest 1V portable HISTORY: Sepsis. r/o infiltrate COMPARISON: Chest 03/24/2024. FINDINGS: No pneumothorax. No pleural effusions. No focal lung consolidations to suggest a pneumonia. No evidence for pulmonary edema. The heart is borderline enlarged. This remains unchanged. No acute fractures. Cervical spinal fusion hardware is partially visualized. IMPRESSION: No significant change compared to the prior study. No acute process. ACT 112: Negative or not required by law. Electronically signed by: Zeeshan Mejia M.D. 04/04/2024 3:51 PM Supervising Physician Co-Signing Physician Notes Pt was seen and examined by myself, Lara Son MD on the day of service. Care was coordinated with Carly Dean PA-C. 48yo paraplegic with chronic indwelling catheter presenting with possible sepsis in setting of likely CAUTI once more. also chronic sacral infection. Was discharged a few days ago after treatment with Cefepime for pseudomonas and e coli growing in the urine, and pseudomonas in the sacrum. CT abd/pelvis this admission noting possible osteomyelitis in sacrum. Was seen by ID during last admission, noted will likely need surgical evaluation and ?prolonged IV abx treatment. Alert and oriented x3 on exam. Leukocytosis of 17K, hypotensive at baseline, presenting with BP as low as 64/48. On midodrine at home, continue. IV fluids with bolus, Cefepime and Vancomycin, one dose of SoluCortef 100mg to help BP. ICU made aware. Urology consulted, catheter was changed, reported purulent drainage. Pt having multiple BMs. Consider surgical evaluation for possible debridement/I&D of sacral wound, consider ID follow up once more. Otherwise as above. I spent a total [id number] coordinating, documenting, and providing care for this patient excluding time spent in the performance of separately billed servi glo (1) Hypotension Hypotension type: unspecified hypotension type Qualified Code(s): I95.9 - Hypotension, unspecified (7) Anemia Anemia type: unspecified type Qualified Code(s): D64.9 - Anemia, unspecified
[2024-04-04 14:41] LABS: Appearance Urine Turbid (Clear); Bacteria Urine Automated None Seen (None Seen); Bilirubin Urine Negative (Negative); Blood Urine 3+ (Negative); Calcium Oxalate Crystals Urine Present (None Prsent); Epithelial Cell Urine Auto 0-2 /hpf (0-2); Glucose Urine UA Negative (Negative); Ketones Urine Negative (Negative); Leukocyte Esterase Urine 3+ (Negative); Nitrite Urine Negative (Negative); Protein Urine Trace (Negative); RBC Urine Automated >20 /hpf (0-2); Specific Gravity Urine 1.022 (1.000-1.030); Urobilinogen Urine Negative (Negative); WBC Urine Automated >50 /hpf (0-5); pH Urine 6.5 (4.5-7.5)
[2024-04-04 14:43] LABS: Color Urine Straw
[2024-04-04] MEDS: MIDODRINE HCL 10 MG TAB PO ONE (15:38)
--- NOTE | 2024-04-04 15:52 | XRay Report ---
XR chest 1V portable HISTORY: Sepsis. r/o infiltrate COMPARISON: Chest 03/24/2024. FINDINGS: No pneumothorax. No pleural effusions. No focal lung consolidations to suggest a pneumonia. No evidence for pulmonary edema. The heart is borderline enlarged. This remains unchanged. No acute fractures. Cervical spinal fusion hardware is partially visualized. IMPRESSION: No significant change compared to the prior study. No acute process. ACT 112: Negative or not required by law. Electronically signed by: Zeeshan Mejia M.D. 04/04/2024 3:51 PM
[2024-04-04 16:01] LABS: Magnesium 1.7 mg/dl (1.7-2.4)
[2024-04-04 16:04] LABS: Amphetamines+Metham, Urine Neg (Neg); Barbiturates, Urine Neg (Neg); Benzodiazepine, Urine Neg (Neg); Cocaine, Urine Pos (Neg); Fentanyl, Urine Neg (Neg); MDMA (Ecstacy), Urine Neg (Neg); Marijuana, Urine Pos (Neg); Methadone, Urine Neg (Neg); Opiate, Urine Pos (Neg); Phencyclidine, Urine Neg (Neg)
[2024-04-04] MEDS ORDERED: VANCOMYCIN CONSULT ACTIVE PRN ×3 (16:21→22:12)
[2024-04-04] MEDS ORDERED: VANCOMYCIN HCL 2,250 MG in SODIUM CHLORIDE 0.9% 500 ML IV ONE (16:21)
[2024-04-04] MEDS: CEFEPIME 2,000 MG/20 ML VIAL IV STA (16:48)
[2024-04-04] MEDS: HYDROCORTISONE SOD SUCCINATE 100 MG/2 ML VIAL IV STA (16:48)
[2024-04-04] MEDS: VANCOMYCIN HCL 2,250 MG in SODIUM CHLORIDE 0.9% 500 ML IV ONE (17:24)
[2024-04-04] MEDS: POTASSIUM CHLORIDE CRTAB 20 MEQ TABCR PO STA (17:24)
[2024-04-04] MEDS: SODIUM CHLORIDE 0.9% 1,000 ML IV SCH (17:25)
--- NOTE | 2024-04-04 18:32 | Pharmacy Report ---
Pharmacy PK ABX Note - Date of Service April 04, 2024 - Assessment and Plan Assessment 48 year old M receiving vancomycin for empiric therapy. Pertinent microbiologic data includes: pending blood and urine culture. 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 Day #1 of therapy of antimicrobial therapy. Plan Vancomycin * Loading dose: 2250 mg mg IV x 1 * Maintenance dose: 1250 mg IV every 8 hours * Regimen is predicted to achieve target AUC/BEATRIZ of 400-600 mg/L.hr [Random] level ordered for: 04/05/24 @0700 Pharmacy will continue to follow and will adjust dose/frequency as necessary. Thank you. Pharmacy has transitioned to AUC monitoring for vancomycin. AUC/BEATRIZ is the preferred PK/PD target and is associated with decreased risk of nephrotoxicity compared to traditional trough targets.
[2024-04-04] MEDS ORDERED: MIDODRINE HCL 10 MG TAB PO PRN (22:12)
[2024-04-04] MEDS ORDERED: LIDOCAINE 5% 1 PATCH TD PRN (22:12)
[2024-04-04] MEDS ORDERED: POLYETHYLENE (MIRALAX) 17 GM PACK PO PRN (22:12)
[2024-04-04] MEDS ORDERED: DOCUSATE SODIUM 100 MG CAP PO PRN (22:12)
[2024-04-04] MEDS ORDERED: ALBUT/IPRATROP 3MG/0.5MG NEB 3 ML VIAL NEB PRN (22:44)
[2024-04-04] MEDS: AMITRIPTYLINE HCL 25 MG TAB PO SCH (23:17)
[2024-04-04] MEDS: DOCUSATE SODIUM/SENNA 50/8.6MG TAB PO SCH (23:18)
[2024-04-04] MEDS: APIXABAN 5 MG TABLET PO SCH (23:18)
[2024-04-04] MEDS: GABAPENTIN 100 MG CAP PO SCH (23:19)
[2024-04-04] MEDS: FAMOTIDINE 20 MG TAB PO SCH (23:19)
[2024-04-04] MEDS: POTASSIUM CHLORIDE CRTAB 20 MEQ TABCR PO SCH (23:20)
[2024-04-04] MEDS: SIMETHICONE 80 MG CHEW PO SCH (23:20)
[2024-04-04] MEDS: BACLOFEN 20 MG TAB PO PRN (23:21)
[2024-04-04] MEDS: MELATONIN 3 MG TAB PO SCH (23:22)
[2024-04-04] MEDS: PANTOprazole 40 MG in SYRINGE 0 ML IV SCH (23:26)
[2024-04-04] MEDS: LACTULOSE SYRUP 20 GM/30 ML UDC PO SCH (23:27)
[2024-04-04] MEDS: ALBUT/IPRATROP 3MG/0.5MG NEB 3 ML VIAL NEB SCH (23:27)
[2024-04-04] MEDS: FLUTICASONE/VILANTEROL 100/25MCG 14 PUFFS/INHALER INH SCH (23:27)
[2024-04-04] MEDS: bisacodyL 10 MG SUPP PR SCH (23:27)
[2024-04-04] MEDS: CEFEPIME 2,000 MG in SYRINGE 0 ML IV SCH (23:34)
[2024-04-05] MEDS: VANCOMYCIN HCL 1,250 MG in SODIUM CHLORIDE 0.9% 250 ML IV SCH (01:05)
[2024-04-05 03:07] VITALS: RESP 18
--- NOTE | 2024-04-05 07:36 | Hospitalist Progress Note ---
Date of Service April 05, 2024 Assessment & Plan (1) Hypotension: (2) Complicated urinary tract infection: (3) Complication, blocked suprapubic catheter: (4) Quadriplegia: (5) Sacral decubitus ulcer, stage IV: (6) Chronic osteomyelitis of sacrum: (7) Anemia: (8) Hypokalemia: Plan: Mr. 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 Patient was recently treated for pseudomonas, E. coli UTI with cefepime per ID recommendations. Recent discharge on 04/01/24. In ER noted suprapubic catheter not draining. In ER urology was consulted and exchanged suprapubic catheter 04/04. Urology signed off. CT abd/pelvis revealed "markedly distended with a suprapubic catheter in place. The bladder wall is thickened and hyperemic, with pericystic stranding and fluid. The appearance favors a bladder obstruction and cystitis. There is moderate to severe bilateral hydroureteronephrosis. This is likely related to the degree of bladder distention. There is also perinephric and periureteric stranding. Bilateral nephrolithiasis. No ureteral stone is seen. There are also likely calculi within a prostate defect.The rectal wall appears thickened with mucosal hyperemia. Correlate clinically for evidence of a nonspecific proctitis. The distal esophagus appears thick-walled. Correlate clinically for evidence of esophagitis." Cultures with no growth. Will discontinue abx and monitor closely for next 12-24 hours with plans to d/c home with caregiver support #Chronic hypotension resume home midodrine Follow infectious work up #Obstructed suprapublic cath POA #Recent Complicated urinary tract infection: #H/O neurogenic bladder with chronic indwelling suprapubic catheter #H/O nephrolithiasis Blood culture, urine culture NGTD Will discontinue ABX given recent treatment Suspect leukocytosis reactive 2/2 acute obstructed hartman Blood pressure improved with IV fluids #esophagitis on imaging continue protonix #Chronic sacral decubitus ulcer stage IV #Chronic osteomyelitis CT Abd/pelvis: Postsurgical change is again seen involving the sacrum and coccyx with an overlying wound and surrounding soft tissue thickening. There may be packing material in place. Sclerotic change in the adjacent sacrum site likely represents chronic osteomyelitis. Correlate clinically. d/c abx Wound care consulted #History asymptomatic episodic bradycardia Monitor on telemetry Previously advised to have outpatient Zio monitor #Hypokalemia K: 3.3 Replete and monitor electrolytes as needed. Patient denied KCl in ER #COPD #Tobacco use disorder No signs of acute exacerbation Continue home inhalers Nebs prn #Substance use disorder Reports last smoked cocaine 3 days ago and last smoked marijuana yesterday In past reports used oxycodone. PDMP reviewed and not filled since 01/2024. Will attempt to avoid narcotics if able #Quadriplegic secondary to traumatic cervical injury #Functional disability No acute issues Fall precautions #H/O PE Anticoagulated on Eliquis Continue Eliquis #H/O HCV Completed treatment per record #Mood disorder Continue home medications DVT Px: Eliquis Admit PCU Full Code as per discussion with pt Admission and Anticipated Discharge Date Admission Date: April 04, 2024 Subjective NAEO Reports of aggressive behavior overnight, but calm this morning Reports discomfort in abdomen but denies fevers chills or other concerns Physical Exam Constitutional: WD/WN, vitals as above avoids eye contact Respiratory: normal respiratory effort, lungs clear to auscultation Cardiovascular: RRR, no murmur, no edema Results & Data Results & Data Vital Signs (Past 12 Hours) Vital Signs Temp Pulse Pulse Resp BP BP Pulse Ox 04/05/24 03:06 36.6 C 67 18 115/69 96 04/05/24 01:00 36.5 C 74 16 121/79 95 04/05/24 00:44 36.5 C 74 20 121/79 95 04/05/24 00:00 103/58 L 04/05/24 00:00 83 18 95 04/04/24 23:50 107/69 04/04/24 23:50 107/69 04/04/24 23:50 107/69 04/04/24 23:42 86 17 95 04/04/24 23:40 108/65 04/04/24 23:40 108/65 04/04/24 23:40 108/65 04/04/24 23:36 69 21 94 04/04/24 23:33 71 23 91 04/04/24 23:20 103/81 04/04/24 23:12 65 19 90 04/04/24 23:10 98/70 L 04/04/24 23:10 98/70 L 04/04/24 23:00 114/64 04/04/24 23:00 114/64 04/04/24 23:00 64 18 88 L 04/04/24 22:50 111/71 04/04/24 22:50 111/71 04/04/24 22:42 67 16 90 04/04/24 22:40 106/65 04/04/24 22:40 106/65 04/04/24 22:40 66 18 106/65 91 04/04/24 22:30 114/78 04/04/24 22:27 66 22 94 04/04/24 22:10 109/67 04/04/24 22:09 67 19 93 04/04/24 22:00 76 19 92 04/04/24 21:51 110/64 04/04/24 21:33 60 20 95 04/04/24 21:30 124/64 04/04/24 21:30 124/64 04/04/24 21:20 110/75 04/04/24 21:18 66 16 92 04/04/24 21:10 111/74 04/04/24 21:06 67 21 95 04/04/24 21:00 114/75 04/04/24 20:50 107/70 04/04/24 20:48 76 18 93 04/04/24 20:40 103/65 04/04/24 20:39 100 H 16 96 04/04/24 20:30 65 17 90 04/04/24 20:30 108/67 04/04/24 20:30 108/67 04/04/24 20:30 108/67 04/04/24 20:30 108/67 04/04/24 20:20 108/70 04/04/24 20:20 108/70 04/04/24 20:12 63 18 93 04/04/24 20:09 63 18 118/66 93 04/04/24 19:57 66 16 119/75 91 04/04/24 19:36 64 20 121/73 96 O2 Del Method 04/05/24 03:06 Room Air 04/05/24 01:00 Room Air 04/05/24 00:44 Room Air 04/05/24 00:00 04/05/24 00:00 04/04/24 23:50 04/04/24 23:50 04/04/24 23:50 04/04/24 23:42 04/04/24 23:40 04/04/24 23:40 04/04/24 23:40 04/04/24 23:36 04/04/24 23:33 Room Air 04/04/24 23:20 04/04/24 23:12 04/04/24 23:10 04/04/24 23:10 04/04/24 23:00 04/04/24 23:00 04/04/24 23:00 04/04/24 22:50 04/04/24 22:50 04/04/24 22:42 04/04/24 22:40 04/04/24 22:40 04/04/24 22:40 Room Air 04/04/24 22:30 04/04/24 22:27 04/04/24 22:10 04/04/24 22:09 04/04/24 22:00 04/04/24 21:51 04/04/24 21:33 04/04/24 21:30 04/04/24 21:30 04/04/24 21:20 04/04/24 21:18 04/04/24 21:10 04/04/24 21:06 04/04/24 21:00 04/04/24 20:50 04/04/24 20:48 04/04/24 20:40 04/04/24 20:39 04/04/24 20:30 04/04/24 20:30 04/04/24 20:30 04/04/24 20:30 04/04/24 20:30 04/04/24 20:20 04/04/24 20:20 04/04/24 20:12 04/04/24 20:09 Room Air 04/04/24 19:57 Room Air 04/04/24 19:36 Room Air Laboratory Results Short CBC 04/05/24 Range/Units 07:44 WBC 11.09 H (4.8-10.8) K/ul Hgb 12.3 L D (14.0-18.0) g/dl Hct 38.0 L (42.0-52.0) % Plt Count 255 (130-400) K/uL Medications Administered Home Medications Medication Instructions Recorded Confirmed Last Taken Naloxone 4 Mg/0.1ml 1 spray intranasal (ALT) 01/29/24 04/04/24 Unknown DIRECTED PRN opiod od Sterile Water For Irrigation 1 ea NA BID 01/29/24 04/04/24 Unknown amitriptyline 25 mg tablet 25 mg PO HS 01/29/24 04/04/24 Unknown apixaban 5 mg tablet (Eliquis) 5 mg PO AMHS 01/29/24 04/04/24 Unknown bisacodyl 10 mg rectal suppository 10 mg VA AMPM 01/29/24 04/04/24 Unknown budesonide-formoterol HFA 160 2 puff inhalation AMHS 01/29/24 04/04/24 Unknown mcg-4.5 mcg/actuation aerosol inhaler celecoxib 200 mg capsule 200 mg PO DAILY PRN Pain 01/29/24 04/04/24 Unknown collagenase clostridium histo. 250 1 applic topical DAILY 01/29/24 04/04/24 Unknown unit/gram topical ointment docusate sodium 100 mg capsule 100 mg PO BID PRN Constipation 01/29/24 04/04/24 Unknown duloxetine 60 mg capsule,delayed 60 mg PO QAM 01/29/24 04/04/24 Unknown release sprinkle ferrous sulfate 325 mg (65 mg 325 mg PO QDB 01/29/24 04/04/24 Unknown iron) tablet gabapentin 100 mg capsule 100 mg PO TID 01/29/24 04/04/24 Unknown hydroxyzine HCl 25 mg tablet 25 mg PO DAILY PRN Anxiety 01/29/24 04/04/24 Unknown lactulose 20 gram/30 mL oral 20 g PO TID 01/29/24 04/04/24 Unknown solution lidocaine 5 % topical patch 1 patch topical DAILY PRN Pain 01/29/24 04/04/24 Unknown oxybutynin chloride 10 mg 10 mg PO QAM 01/29/24 04/04/24 Unknown tablet,extended release 24 hr potassium chloride 20 mEq 20 meq PO AMHS 01/29/24 04/04/24 Unknown tablet,extended release(part/cryst) sennosides 8.6 mg-docusate sodium 2 tab-cap PO HS 01/29/24 04/04/24 Unknown 50 mg tablet (Senokot-S) simethicone 80 mg chewable tablet 80 mg PO TID 01/29/24 04/04/24 Unknown sodium hypochlorite 0.25 % 1 irrig topical BID 01/29/24 04/04/24 Unknown solution (Dakin's Solution) tiotropium bromide 2.5 2 puff inhalation QAM 01/29/24 04/04/24 Unknown mcg/actuation mist for inhalation (Spiriva Respimat) baclofen 20 mg tablet 20 mg PO TID PRN spasms #60 tabs 02/01/24 04/04/24 Unknown ascorbic acid (vitamin C) 500 mg 500 mg PO QAM 03/04/24 04/04/24 Unknown tablet (Vitamin C) famotidine 20 mg tablet 20 mg PO AMHS 03/04/24 04/04/24 Unknown melatonin 3 mg capsule 3 mg PO HS 03/04/24 04/04/24 Unknown pediatric multivitamin 1 tab PO DAILY 03/04/24 04/04/24 Unknown L.acidop,casei,lactis,rham-B.lact,corinna 1 cap PO DAILY #5 caps 04/01/24 04/04/24 Unknown 625 mg (10 billion cell) capsule (Advanced Probiotic) midodrine 10 mg tablet 10 mg PO TID PRN Hypotension #30 04/01/24 04/04/24 Unknown tabs Active Medications Generic Name Dose Route Start Last Admin Trade Name Freq PRN Reason Stop Dose Admin Amitriptyline HCl 25 mg 04/04/24 22:12 04/04/24 23:17 Amitriptyline Hcl 25 Mg Tab PO 05/04/24 22:11 25 mg HS ROSALES Administration Apixaban 5 mg 04/04/24 22:12 04/05/24 10:52 Apixaban 5 Mg Tablet PO 05/04/24 22:11 5 mg AMHS ROSALES Administration Ascorbic Acid 500 mg 04/05/24 09:00 04/05/24 09:20 Ascorbic Acid 500 Mg Tab PO 05/05/24 08:59 500 mg QAM ROSALES Administration Baclofen 20 mg 04/04/24 22:12 04/05/24 12:29 Baclofen 20 Mg Tab PO 05/04/24 22:11 20 mg TID PRN Administration spasms Bisacodyl 10 mg 04/04/24 22:12 04/05/24 10:54 Bisacodyl 10 Mg Supp VA 05/04/24 22:11 Not Given BID ROSALES Duloxetine HCl 60 mg 04/05/24 09:00 04/05/24 09:19 Duloxetine Hcl 60 Mg Cap PO 05/05/24 08:59 60 mg QAM ROSALES Administration Famotidine 20 mg 04/04/24 22:12 04/05/24 11:53 Famotidine 20 Mg Tab PO 05/04/24 22:11 Not Given AMHS ROSALES Ferrous Sulfate 325 mg 04/05/24 07:30 04/05/24 09:20 Ferrous Sulfate 325 Mg Tab PO 05/05/24 07:29 325 mg QDB ROSALES Administration Fluticasone/Vilanterol 1 puffs 04/04/24 23:00 04/04/24 23:27 Fluticasone/Vilanterol 100/25mcg 14 Puffs/Inhaler INH 05/04/24 22:59 Not Given HS [facility] Protocol Gabapentin 100 mg 04/04/24 22:12 04/05/24 15:23 Gabapentin 100 Mg Cap PO 05/04/24 22:11 100 mg TID ROSALES Administration Pantoprazole Sodium 40 mg/ 10 mls @ 5 mls/min 04/04/24 22:12 04/05/24 09:19 Syringe IV 05/04/24 22:11 5 mls/min BID ROSALES Administration Ketorolac Tromethamine 30 mg 04/05/24 11:46 04/05/24 12:29 Ketorolac 30 Mg/Ml Vial IV 04/10/24 11:45 30 mg Q6H PRN Administration Moderate Pain (Scale 4, 5, 6) Lactobacillus Acidophilus 1,250 mg 04/05/24 09:00 04/05/24 09:19 Advanced Probiotic 625 Mg Capsule PO 05/05/24 08:59 1,250 mg DAILY ROSALES Administration Lactulose 20 gm 04/04/24 22:12 04/05/24 15:23 Lactulose Syrup 20 Gm/30 Ml Udc PO 05/04/24 22:11 Not Given TID ROSALES Melatonin 3 mg 04/04/24 22:12 04/04/24 23:22 Melatonin 3 Mg Tab PO 05/04/24 22:11 3 mg HS ROSALES Administration Miscellaneous 1 each 04/04/24 22:12 04/04/24 23:27 Remove Lidoderm Patch N/A 05/04/24 22:11 Not Given DAILY@2100 ROSALES Oxybutynin Chloride 10 mg 04/05/24 09:00 04/05/24 09:19 Oxybutynin Chloride Xl 5 Mg Tabcr PO 05/05/24 08:59 10 mg QAM ROSALES Administration Potassium Chloride 20 meq 04/04/24 22:12 04/05/24 10:52 Potassium Chloride Crtab 20 Meq Tabcr PO 05/04/24 22:11 20 meq AMHS ROSALES Administration Senna/Docusate Sodium 2 tab 04/04/24 22:12 04/04/24 23:18 Docusate Sodium/Senna 50/8.6mg Tab PO 05/04/24 22:11 2 tab HS ROSALES Administration Simethicone 80 mg 04/04/24 22:12 04/05/24 15:23 Simethicone 80 Mg Chew PO 05/04/24 22:11 Not Given TID ROSALES Umeclidinium Tippo 1 puffs 04/05/24 09:00 04/05/24 09:19 Umeclidinium Tippo 62.5mcg/Blister 7 Puffs/Inhaler INH 05/05/24 08:59 1 puffs QAM ROSALES Administration (1) Hypotension Hypotension type: unspecified hypotension type Qualified Code(s): I95.9 - Hypotension, unspecified (7) Anemia Anemia type: unspecified type Qualified Code(s): D64.9 - Anemia, unspecified
[2024-04-05 08:16] LABS: Basophils # (auto) 0.06 K/uL (0.00-0.20); Basophils % (auto) 0.5 %; Eosinophils # (auto) 0.09 K/uL (0.00-0.50); Eosinophils % (auto) 0.8 %; Hemoglobin 12.3 g/dl (14.0-18.0); Immature Granulocytes # (auto) 0.05 K/uL (0.01-0.20); Immature Granulocytes % (auto) 0.4 %; Lymphocytes % (auto) 16.8 %; Mean Corpuscular Hemoglobin 26.4 pg (25.0-34.0); Mean Corpuscular Hgb Conc 32.4 g/dL (32.0-36.0); Mean Corpuscular Volume 81.5 fL (80.0-100.0); Mean Platelet Volume 9.6 fL (9.4-12.4); Monocytes # (auto) 0.67 K/uL (0.11-0.59); Monocytes % (auto) 5.9 %; Neutrophils # (auto) 8.57 K/uL (1.40-6.50); Neutrophils % (auto) 75.6 %; Platelet Count 255 K/uL (130-400); RDW Standard Deviation 53.6 fL (36.4-46.3); Red Blood Count 4.66 M/uL (4.70-6.10); White Blood Count 11.09 K/ul (4.8-10.8)
[2024-04-05] MEDS: VANCOMYCIN LEVEL ONE (09:16)
[2024-04-05] MEDS: OXYBUTYNIN CHLORIDE XL 5 MG TABCR PO SCH (09:19)
[2024-04-05] MEDS: ADVANCED PROBIOTIC 625 MG CAPSULE PO SCH (09:19)
[2024-04-05] MEDS: DULoxetine HCL 60 MG CAP PO SCH (09:19)
[2024-04-05] MEDS: UMECLIDINIUM BROMIDE 62.5MCG/BLISTER 7 PUFFS/INHALER INH SCH (09:19)
[2024-04-05] MEDS: FERROUS SULFATE 325 MG TAB PO SCH (09:20)
[2024-04-05] MEDS: ASCORBIC ACID 500 MG TAB PO SCH (09:20)
--- NOTE | 2024-04-05 09:20 | Pharmacy Report ---
Pharmacy PK ABX Note - Date of Service April 05, 2024 - Assessment and Plan Assessment 04/05: Day # 2 of antimicrobial therapy. Patient's trough level for this AM came back as fitting with predicted model. Will continue with current dose. Blood and urine cultures still pending as of this AM, no change to antimicrobial therapy at this time. 04/04: 48 year old M receiving vancomycin for empiric therapy. Pertinent microbiologic data includes: pending blood and urine culture. 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 Day #1 of therapy of antimicrobial therapy. Plan Vancomycin * Loading dose: 2250 mg mg IV x 1 * Maintenance dose: 1250 mg IV every 8 hours * Regimen is predicted to achieve target AUC/BEATRIZ of 400-600 mg/L.hr * Trough level on 04/05/2024: 15.9 Pharmacy will continue to follow and will adjust dose/frequency as necessary. Thank you. Pharmacy has transitioned to AUC monitoring for vancomycin. AUC/BEATRIZ is the preferred PK/PD target and is associated with decreased risk of nephrotoxicity compared to traditional trough targets.
[2024-04-05] MEDS: POTASSIUM CHLORIDE CRTAB 20 MEQ TABCR PO STA (10:51)
[2024-04-05] MEDS: KETOROLAC 30 MG/ML VIAL IV PRN (12:29)
[2024-04-05] MEDS: IBUPROFEN 200 MG TAB PO STA (21:16)
[2024-04-06 09:24] LABS: Adenovirus F 40/41 PCR Not Detected (NotDetected); Astrovirus PCR Not Detected (NotDetected); Campylobacter PCR Not Detected (NotDetected); Cryptosporidium PCR Not Detected (NotDetected); Cyclospora cayetanensis PCR Not Detected (NotDetected); Entamoeba histolytica PCR Not Detected (NotDetected); Enteroaggregative E.coli(EAEC) Not Detected (NotDetected); Enteropathogenic E.coli (EPEC) Not Detected (NotDetected); Enterotoxigenic E.coli (ETEC) Not Detected (NotDetected); Giardia lamblia PCR Not Detected (NotDetected); Plesiomonas shigelloides PCR Not Detected (NotDetected); Rotavirus A PCR Not Detected (NotDetected); Salmonella PCR Not Detected (NotDetected); Sapovirus PCR Not Detected (NotDetected); Shiga-like Toxin E.coli (STEC) Not Detected (NotDetected); Shigella/Enteroinvasive E.coli Not Detected (NotDetected); Vibrio cholerae PCR Not Detected (NotDetected); Vibrio species PCR Not Detected (NotDetected); Yersinia enterocolitica PCR Not Detected (NotDetected)
--- NOTE | 2024-04-06 09:40 | Hospitalist Progress Note ---
Date of Service April 06, 2024 Assessment & Plan (1) Hypotension: (2) Complicated urinary tract infection: (3) Complication, blocked suprapubic catheter: (4) Quadriplegia: (5) Sacral decubitus ulcer, stage IV: (6) Chronic osteomyelitis of sacrum: (7) Anemia: (8) Hypokalemia: Plan: Mr. 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 Patient was recently treated for pseudomonas, E. coli UTI with cefepime per ID recommendations. Recent discharge on 04/01/24. In ER noted suprapubic catheter not draining. In ER urology was consulted and exchanged suprapubic catheter 04/04. Urology signed off. CT abd/pelvis revealed "markedly distended with a suprapubic catheter in place. The bladder wall is thickened and hyperemic, with pericystic stranding and fluid. The appearance favors a bladder obstruction and cystitis. There is moderate to severe bilateral hydroureteronephrosis. This is likely related to the degree of bladder distention. There is also perinephric and periureteric stranding. Bilateral nephrolithiasis. No ureteral stone is seen. There are also likely calculi within a prostate defect.The rectal wall appears thickened with mucosal hyperemia. Correlate clinically for evidence of a nonspecific proctitis. The distal esophagus appears thick-walled. Correlate clinically for evidence of esophagitis." Cultures with no growth. Will discontinue abx and monitor closely for next 12-24 hours with plans to d/c home with caregiver support #Diarrhea #norovirus infection c diff gene + toxin negative fecal retention, continue current bowel regimen contact precautions #Chronic hypotension resume home midodrine Follow infectious work up #Obstructed suprapubic cath POA #Recent Complicated urinary tract infection: #H/O neurogenic bladder with chronic indwelling suprapubic catheter #H/O nephrolithiasis Blood culture, urine culture NGTD Will discontinue ABX given recent treatment Suspect leukocytosis reactive 2/2 acute obstructed hartman Blood pressure improved with IV fluids #esophagitis on imaging continue protonix #Chronic sacral decubitus ulcer stage IV #Chronic osteomyelitis CT Abd/pelvis: Postsurgical change is again seen involving the sacrum and coccyx with an overlying wound and surrounding soft tissue thickening. There may be packing material in place. Sclerotic change in the adjacent sacrum site likely represents chronic osteomyelitis. Correlate clinically. d/c abx Wound care consulted dressing changed and recommendations placed #History asymptomatic episodic bradycardia Monitor on telemetry Previously advised to have outpatient Zio monitor #Hypokalemia K: 3.3 Replete and monitor electrolytes as needed. Patient denied KCl in ER Encourage repeat labs #COPD #Tobacco use disorder No signs of acute exacerbation Continue home inhalers Nebs prn #Substance use disorder Reports last smoked cocaine 3 days ago and last smoked marijuana yesterday In past reports used oxycodone. PDMP reviewed and not filled since 01/2024. Will attempt to avoid narcotics if able #Quadriplegic secondary to traumatic cervical injury #Functional disability No acute issues Fall precautions #H/O PE Anticoagulated on Eliquis Continue Eliquis #H/O HCV Completed treatment per record #Mood disorder Continue home medications DVT Px: Eliquis Admit PCU Full Code as per discussion with pt Admission and Anticipated Discharge Date Admission Date: April 04, 2024 Subjective Reports abdominal cramping States he needs wound cleaned Denies any other concern Physical Exam Constitutional: WD/WN, vitals as above Respiratory: normal respiratory effort, lungs clear to auscultation Cardiovascular: RRR, no murmur, no edema Results & Data Results & Data Vital Signs (Past 12 Hours) Vital Signs Temp Pulse Pulse Resp BP Pulse Ox O2 Del Method 04/06/24 05:16 69 04/06/24 03:03 36.8 C 56 L 18 163/100 H 95 Room Air 04/05/24 23:01 36.6 C 57 L 18 133/86 97 Room Air Laboratory Results declined Diagnostic Findings KUB X-Ray 04/06/24 09:29 KUB HISTORY: Generalized abdominal pain. COMPARISON: Abdomen and pelvis CT 03/27/2024. FINDINGS: Nondilated gas-filled loops of large and small bowel seen throughout the abdomen. No evidence for a bowel obstruction. There is moderate fecal retention. Left-sided nephrolithiasis again noted. No ureteral calculi identified. No pneumoperitoneum or pneumatosis. IMPRESSION: 1. Nonobstructive bowel gas pattern. 2. Moderate fecal retention. ACT 112: Negative or not required by law. Electronically signed by: Zeeshan Mejia M.D. 04/06/2024 12:17 PM Medications Administered Home Medications Medication Instructions Recorded Confirmed Last Taken Naloxone 4 Mg/0.1ml 1 spray intranasal (ALT) 01/29/24 04/04/24 Unknown DIRECTED PRN opiod od Sterile Water For Irrigation 1 ea NA BID 01/29/24 04/04/24 Unknown amitriptyline 25 mg tablet 25 mg PO HS 01/29/24 04/04/24 Unknown apixaban 5 mg tablet (Eliquis) 5 mg PO AMHS 01/29/24 04/04/24 Unknown bisacodyl 10 mg rectal suppository 10 mg TN AMPM 01/29/24 04/04/24 Unknown budesonide-formoterol HFA 160 2 puff inhalation AMHS 01/29/24 04/04/24 Unknown mcg-4.5 mcg/actuation aerosol inhaler celecoxib 200 mg capsule 200 mg PO DAILY PRN Pain 01/29/24 04/04/24 Unknown collagenase clostridium histo. 250 1 applic topical DAILY 01/29/24 04/04/24 Unknown unit/gram topical ointment docusate sodium 100 mg capsule 100 mg PO BID PRN Constipation 01/29/24 04/04/24 Unknown duloxetine 60 mg capsule,delayed 60 mg PO QAM 01/29/24 04/04/24 Unknown release sprinkle ferrous sulfate 325 mg (65 mg 325 mg PO QDB 01/29/24 04/04/24 Unknown iron) tablet gabapentin 100 mg capsule 100 mg PO TID 01/29/24 04/04/24 Unknown hydroxyzine HCl 25 mg tablet 25 mg PO DAILY PRN Anxiety 01/29/24 04/04/24 Unknown lactulose 20 gram/30 mL oral 20 g PO TID 01/29/24 04/04/24 Unknown solution lidocaine 5 % topical patch 1 patch topical DAILY PRN Pain 01/29/24 04/04/24 Unknown oxybutynin chloride 10 mg 10 mg PO QAM 01/29/24 04/04/24 Unknown tablet,extended release 24 hr potassium chloride 20 mEq 20 meq PO AMHS 01/29/24 04/04/24 Unknown tablet,extended release(part/cryst) sennosides 8.6 mg-docusate sodium 2 tab-cap PO HS 01/29/24 04/04/24 Unknown 50 mg tablet (Senokot-S) simethicone 80 mg chewable tablet 80 mg PO TID 01/29/24 04/04/24 Unknown sodium hypochlorite 0.25 % 1 irrig topical BID 01/29/24 04/04/24 Unknown solution (Dakin's Solution) tiotropium bromide 2.5 2 puff inhalation QAM 01/29/24 04/04/24 Unknown mcg/actuation mist for inhalation (Spiriva Respimat) baclofen 20 mg tablet 20 mg PO TID PRN spasms #60 tabs 02/01/24 04/04/24 Unknown ascorbic acid (vitamin C) 500 mg 500 mg PO QAM 03/04/24 04/04/24 Unknown tablet (Vitamin C) famotidine 20 mg tablet 20 mg PO AMHS 03/04/24 04/04/24 Unknown melatonin 3 mg capsule 3 mg PO HS 03/04/24 04/04/24 Unknown pediatric multivitamin 1 tab PO DAILY 03/04/24 04/04/24 Unknown L.acidop,casei,lactis,rham-B.lact,corinna 1 cap PO DAILY #5 caps 04/01/24 04/04/24 Unknown 625 mg (10 billion cell) capsule (Advanced Probiotic) midodrine 10 mg tablet 10 mg PO TID PRN Hypotension #30 04/01/24 04/04/24 Unknown tabs Active Medications Generic Name Dose Route Start Last Admin Trade Name Fre PRN Reason Stop Dose Admin Acetaminophen 650 mg 04/04/24 22:12 04/06/24 15:43 Acetaminophen 325 Mg Tab PO 05/04/24 22:11 650 mg Q4H PRN Administration Pain or Fever Amitriptyline HCl 25 mg 04/04/24 22:12 04/05/24 21:16 Amitriptyline Hcl 25 Mg Tab PO 05/04/24 22:11 25 mg HS ROSALES Administration Apixaban 5 mg 04/04/24 22:12 04/06/24 10:21 Apixaban 5 Mg Tablet PO 05/04/24 22:11 5 mg AMHS ROSALES Administration Ascorbic Acid 500 mg 04/05/24 09:00 04/06/24 10:21 Ascorbic Acid 500 Mg Tab PO 05/05/24 08:59 500 mg QAM ROSALES Administration Baclofen 20 mg 04/04/24 22:12 04/06/24 10:18 Baclofen 20 Mg Tab PO 05/04/24 22:11 20 mg TID PRN Administration spasms Bisacodyl 10 mg 04/04/24 22:12 04/06/24 05:01 Bisacodyl 10 Mg Supp TN 05/04/24 22:11 10 mg BID ROSALES Administration Duloxetine HCl 60 mg 04/05/24 09:00 04/06/24 10:21 Duloxetine Hcl 60 Mg Cap PO 05/05/24 08:59 60 mg QAM ROSALES Administration Famotidine 20 mg 04/04/24 22:12 04/06/24 10:22 Famotidine 20 Mg Tab PO 05/04/24 22:11 20 mg AMHS ROSALES Administration Ferrous Sulfate 325 mg 04/05/24 07:30 04/06/24 10:22 Ferrous Sulfate 325 Mg Tab PO 05/05/24 07:29 325 mg QDB ROSALES Administration Fluticasone/Vilanterol 1 puffs 04/04/24 23:00 04/05/24 21:21 Fluticasone/Vilanterol 100/25mcg 14 Puffs/Inhaler INH 05/04/24 22:59 Not Given HS ROSALES Protocol Gabapentin 100 mg 04/04/24 22:12 04/06/24 16:17 Gabapentin 100 Mg Cap PO 05/04/24 22:11 Not Given TID ROSALES Pantoprazole Sodium 40 mg/ 10 mls @ 5 mls/min 04/04/24 22:12 04/06/24 10:14 Syringe IV 05/04/24 22:11 5 mls/min BID ROSALES Administration Ketorolac Tromethamine 30 mg 04/05/24 11:46 04/06/24 15:42 Ketorolac 30 Mg/Ml Vial IV 04/10/24 11:45 30 mg Q6H PRN Administration Moderate Pain (Scale 4, 5, 6) Lactobacillus Acidophilus 1,250 mg 04/05/24 09:00 04/06/24 10:22 Advanced Probiotic 625 Mg Capsule PO 05/05/24 08:59 1,250 mg DAILY ROSALES Administration Lactulose 20 gm 04/04/24 22:12 04/06/24 16:16 Lactulose Syrup 20 Gm/30 Ml Udc PO 05/04/24 22:11 Not Given TID ROSALES Melatonin 3 mg 04/04/24 22:12 04/05/24 21:30 Melatonin 3 Mg Tab PO 05/04/24 22:11 3 mg HS ROSALES Administration Miscellaneous 1 each 04/04/24 22:12 04/05/24 21:23 Remove Lidoderm Patch N/A 05/04/24 22:11 Not Given DAILY@2100 ROSALES Oxybutynin Chloride 10 mg 04/05/24 09:00 04/06/24 10:22 Oxybutynin Chloride Xl 5 Mg Tabcr PO 05/05/24 08:59 10 mg QAM ROSALES Administration Potassium Chloride 20 meq 04/04/24 22:12 04/06/24 12:47 Potassium Chloride Crtab 20 Meq Tabcr PO 05/04/24 22:11 20 meq AMHS ROSALES Administration Senna/Docusate Sodium 2 tab 04/04/24 22:12 04/05/24 21:29 Docusate Sodium/Senna 50/8.6mg Tab PO 05/04/24 22:11 2 tab HS ROSALES Administration Simethicone 80 mg 04/04/24 22:12 04/06/24 16:16 Simethicone 80 Mg Chew PO 05/04/24 22:11 80 mg TID ROSALES Administration Umeclidinium [place] 1 puffs 04/05/24 09:00 04/06/24 10:23 Umeclidinium [place] 62.5mcg/Blister 7 Puffs/Inhaler INH 05/05/24 08:59 Not Given QAM ROSALES (1) Hypotension Hypotension type: unspecified hypotension type Qualified Code(s): I95.9 - Hypotension, unspecified (7) Anemia Anemia type: unspecified type Qualified Code(s): D64.9 - Anemia, unspecified
[2024-04-06] MEDS: HYDROmorphone INJ 0.5 MG/0.5 ML SYR IV STA (10:14)
[2024-04-06 10:18] LABS: Cdiff Antigen Positive; Cdiff Toxin A+B Negative Cdiff Toxin (Negative); Cdiff Toxin B Gene (2yr or >) Positive Cdiff Gene (Neg)
[2024-04-06] MEDS: ALUMINUM/MAGNESIUM/SIMETH (MAALOX MAX) 30 ML UDC PO STA (10:27)
[2024-04-06 10:39] LABS: Norovirus GI/GII PCR DETECTED (NotDetected)
--- NOTE | 2024-04-06 12:19 | XRay Report ---
KUB HISTORY: Generalized abdominal pain. COMPARISON: Abdomen and pelvis CT 03/27/2024. FINDINGS: Nondilated gas-filled loops of large and small bowel seen throughout the abdomen. No eviden ce for a bowel obstruction. There is moderate fecal retention. Left-sided nephrolithiasis again noted . No ureteral calculi identified. No pneumoperitoneum or pneumatosis. IMPRESSION: 1. Nonobstructive bowel gas pattern. 2. Moderate fecal retention. ACT 112: Negative or not required by law. Electronically signed by: Zeeshan Mejia M.D. 04/06/2024 12:17 PM
[2024-04-06] MEDS: ACETAMINOPHEN 1,000 MG/100 ML VIAL IV STA ×2 (12:24→12:48)
[2024-04-06 12:29] VITALS: BP 97/60; TEMP 98.1; O2SAT 96
[2024-04-06] MEDS: ACETAMINOPHEN 325 MG TAB PO PRN (15:43)
[2024-04-06] MEDS: bisacodyL 5 MG TABEC PO ONE (16:58)
--- NOTE | 2024-04-06 17:10 | Discharge Summary ---
Discharge Summary Date of Service April 06, 2024 Principal Dx & Hospital Course #1 = Principal Diagnosis (1) Hypotension: (2) Complicated urinary tract infection: (3) Complication, blocked suprapubic catheter: (4) Quadriplegia: (5) Sacral decubitus ulcer, stage IV: (6) Chronic osteomyelitis of sacrum: (7) Anemia: (8) Hypokalemia: Mr. 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 Patient was recently treated for pseudomonas, E. coli UTI with cefepime per ID recommendations. Recent discharge on 04/01/24. In ER noted suprapubic catheter not draining. In ER urology was consulted and exchanged suprapubic catheter 04/04. Urology signed off. CT abd/pelvis revealed "markedly distended with a suprapubic catheter in place. The bladder wall is thickened and hyperemic, with pericystic stranding and fluid. The appearance favors a bladder obstruction and cystitis. There is modera te to severe bilateral hydroureteronephrosis. This is likely related to the degree of bladder distention. There is also perinephric and periureteric stranding. Bilateral nephrolithiasis. No ureteral stone is seen. There are also likely calculi within a prostate defect.The rectal wall appears thickened with mucosal hyperemia. Correlate clinically for evidence of a nonspecific proctitis. The distal esophagus appears thick-walled. Correlate clinically for evidence of esophagitis." Cultures with no growth. Will discontinue abx and monitor closely for next 12-24 hours with plans to d/c home with caregiver support #Diarrhea #norovirus infection c diff gene + toxin negative fecal retention, continue current bowel regimen contact precautions #Chronic hypotension resume home midodrine Follow infectious work up #Obstructed suprapubic cath POA #Recent Complicated urinary tract infection: #H/O neurogenic bladder with chronic indwelling suprapubic catheter #H/O nephrolithiasis Blood culture, urine culture NGTD Will discontinue ABX given recent treatment Suspect leukocytosis reactive 2/2 acute obstructed hartman Blood pressure improved with IV fluids #esophagitis on imaging continue protonix #Chronic sacral decubitus ulcer stage IV #Chronic osteomyelitis CT Abd/pelvis: Postsurgical change is again seen involving the sacrum and coccyx with an overlying wound and surrounding soft tissue thickening. There may be packing material in place. Sclerotic change in the adjacent sacrum site likely represents chronic osteomyelitis. Correlate clinically. d/c abx Wound care consulted dressing changed and recommendations placed #History asymptomatic episodic bradycardia Monitor on telemetry Previously advised to have outpatient Zio monitor #Hypokalemia K: 3.3 Replete and monitor electrolytes as needed. Patient denied KCl in ER Encourage repeat labs #COPD #Tobacco use disorder No signs of acute exacerbation Continue home inhalers Nebs prn #Substance use disorder Reports last smoked cocaine 3 days ago and last smoked marijuana yesterday In past reports used oxycodone. PDMP reviewed and not filled since 01/2024. 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 History obtained from patient and inpatient chart review. History recurrent hospitalizations. Per chart review most recent hospitalization 03/24/2024-04/01/2024 for complicated UTI and possible pyelonephritis, possible sepsis. Urine culture + Pseudomonas, E. coli and was treated with 7-day course IV cefepime as recommended by infectious disease. Had CT abd/pelvis suggestive of distal proctocolitis and has chronic sacral decubitus ulcer and osteomyelitis with wound culture +pseudomonas, and was treated with cefepime as above. Patient states since discharge he has been feeling "like crap". Describes some nausea but is otherwise unable to describe further symptoms. Denies vomiting. Reports chronic problems having a BM. Today gave himself a suppository in attempts to have BM. States his catheter was not draining since last night. States noted some pink/red color urine. He reports taking his BP at home today and reports was 210/115 so he came to hospital for further evaluation. He reports chronic low BP. States didn't have meds today. He reports chronic abdominal pain and feels "like always does when have to poop or when my catheter not working". He states last smoked cocaine 3 days ago. Last used marijuana yesterday. States last used oxycodone yesterday. Has chronic pain to sacrum from wound that he states doesn't feel any worse. Denies known fever/chills, diaphoresis, vomiting, hematochezia, melena, diarrhea, HERNÁNDEZ, dizziness, syncope, CP, SOB, cough, sore throat, rhinorrhea, worsening abdominal pain, rashes. Admission Exam Per Admitting Provider General Appearance: WDWN, chronic ill appearing Head: normocephalic, atraumatic Eyes: normal inspection, EOM's intact, conjunctiva non-injected, anicteric Neck: supple, trachea midline Lungs: no respiratory distress, 93% on RA, decreased breath sounds throughout CV: RRR, no murmur, no pretibial edema Abd: normal BS, soft, diffuse tenderness to palpation lower abdomen, suprapubic catheter in place Ext: no cyanosis, no erythema Neuro: Alert, oriented to person, place, month, year, BUE: limited active movement, BLE: with 3/5, LE 0/5, alert awake and oriented x 3 Skin: warm, dry Discharge Exam Constitutional WD/WN, vitals as above Respiratory normal respiratory effort, lungs clear to auscultation Cardiovascular RRR, no murmur, no edema Updated Medication List Medication Instructions Recorded Confirmed Type Naloxone 4 Mg/0.1ml 1 spray intranasal (ALT) 01/29/24 04/04/24 History DIRECTED PRN opiod od Sterile Water For Irrigation 1 ea NA BID 01/29/24 04/04/24 History amitriptyline 25 mg tablet 25 mg PO HS 01/29/24 04/04/24 History apixaban 5 mg tablet (Eliquis) 5 mg PO AMHS 01/29/24 04/04/24 History bisacodyl 10 mg rectal suppository 10 mg AL AMPM 01/29/24 04/04/24 History budesonide-formoterol HFA 160 2 puff inhalation AMHS 01/29/24 04/04/24 History mcg-4.5 mcg/actuation aerosol inhaler celecoxib 200 mg capsule 200 mg PO DAILY PRN Pain 01/29/24 04/04/24 History collagenase clostridium histo. 250 1 applic topical DAILY 01/29/24 04/04/24 History unit/gram topical ointment docusate sodium 100 mg capsule 100 mg PO BID PRN Constipation 01/29/24 04/04/24 History duloxetine 60 mg capsule,delayed 60 mg PO QAM 01/29/24 04/04/24 History release sprinkle ferrous sulfate 325 mg (65 mg 325 mg PO QDB 01/29/24 04/04/24 History iron) tablet gabapentin 100 mg capsule 100 mg PO TID 01/29/24 04/04/24 History hydroxyzine HCl 25 mg tablet 25 mg PO DAILY PRN Anxiety 01/29/24 04/04/24 History lactulose 20 gram/30 mL oral 20 g PO TID 01/29/24 04/04/24 History solution lidocaine 5 % topical patch 1 patch topical DAILY PRN Pain 01/29/24 04/04/24 History oxybutynin chloride 10 mg 10 mg PO QAM 01/29/24 04/04/24 History tablet,extended release 24 hr potassium chloride 20 mEq 20 meq PO AMHS 01/29/24 04/04/24 History tablet,extended release(part/cryst) sennosides 8.6 mg-docusate sodium 2 tab-cap PO HS 01/29/24 04/04/24 History 50 mg tablet (Senokot-S) simethicone 80 mg chewable tablet 80 mg PO TID 01/29/24 04/04/24 History sodium hypochlorite 0.25 % 1 irrig topical BID 01/29/24 04/04/24 History solution (Dakin's Solution) tiotropium bromide 2.5 2 puff inhalation QAM 01/29/24 04/04/24 History mcg/actuation mist for inhalation (Spiriva Respimat) baclofen 20 mg tablet 20 mg PO TID PRN spasms #60 tabs 02/01/24 04/04/24 Rx ascorbic acid (vitamin C) 500 mg 500 mg PO QAM 03/04/24 04/04/24 History tablet (Vitamin C) famotidine 20 mg tablet 20 mg PO AMHS 03/04/24 04/04/24 History melatonin 3 mg capsule 3 mg PO HS 03/04/24 04/04/24 History pediatric multivitamin 1 tab PO DAILY 03/04/24 04/04/24 History L.acidop,casei,lactis,rham-B.lact,corinna 1 cap PO DAILY #5 caps 04/01/24 04/04/24 Rx 625 mg (10 billion cell) capsule (Advanced Probiotic) midodrine 10 mg tablet 10 mg PO TID PRN Hypotension #30 04/01/24 04/04/24 Rx tabs Hospital Stay Data Consultations 04/04/24 14:01 ED Decision to Admit Stat Diagnostic Imagining Performed 04/04/24 11:05 CT abd pelvis IV con only Stat Pending Results Patient Have Any Pending Studies at Discharge: No Discharge Instructions Given to Patient (Per Discharging Provider) You were found to have an obstructed suprapubic catheter which was exchanged on 04/04 There were no signs of repeat infection on culture. please resume home medications Total Time Total Time Spent Total Time Spent (In Minutes): 35
[2024-04-06 18:02] VITALS: PULSE 70
[2024-04-07 16:28] LABS: Cocaine, Urine 1220 ng/mL (<100); Codeine Urine NEGATIVE ng/mL (<50); Hydrocodone Urine NEGATIVE ng/mL (<50); Hydromor Urine NEGATIVE ng/mL (<50); Marijuana Quant, GCMS Urine 185 ng/mL (<5); Morphine Urine NEGATIVE ng/mL (<50); Norhydrocodone Conf Ur NEGATIVE ng/mL (<50); Noroxycodone Urine 3770 ng/mL (<50); Oxycodone Urine 3060 ng/mL (<50); Oxymorph Urine 1520 ng/mL (<50)
--- NOTE | 2024-04-08 16:15 | Coding Query ---
SEPSIS To promote full compliance with coding requirements relating to patient care, physician participation is requested in all cases of manager costing uncertainty. Please assist us with the question(s) below: In responding to this query, please exercise your independent professional judgement. The fact that a question is asked does not imply that any particular answer is desired or expected. We appreciate your clarification on this issue. The medical record reflects the following clinical findings: Pt admitted with obstructied cystostomy catheter and infection due to cystostomy catheter. H/P mentioned Sepsis. Please check below the diagnosis that was treated during this inpatient stay if applicable. Thank you . BRIAN Fernandez CCS ____ ( )Bacteremia (Nonspecific laboratory finding of bacteria in the blood) Specify Organism ( ) Present on Admission () Not present on admission () Unable to clinically determine ( ) Septicemia (Systemic disease associated with the presence of pathogenic microorganisms in the blood): Specify Organism ( ) Present on Admission ( ) Not present on admission ( ) Unable to clinically determine ( ) Sepsis Specify Organism Specify Associated Condition/Diagnosis ( ) Present on Admission ( ) Not present on admission ( ) Unable to clinically determine ( ) Severe Sepsis (Sepsis associated with acute organ dysfunction) Specify Organism Specify Associated Condition/Diagnosis ( ) Present on Admission ( ) Not present on admission ( ) Unable to clinically determine ( ) Septic Shock (Severe sepsis with acute circulatory failure, unexplained by other causes) ( ) Present on Admission ( ) Not present on admission ( ) Unable to clinically determine ( x) Other, patient has: SIRS, no infection identified MTDD
== END 2024-04-06 19:02 | disposition home or self-care (01) | DRG 698 ==
LOC: ED 10:50 → SUATTDRO 14:43 → EDINP 14:43 → 2S 04-05 00:11
DX: F12.90 Cannabis use, unspecified, uncomplicated; Y81.2 Prosthetic and other implants, materials and accessory general- and plastic-surgery devices associated with adverse incidents; E87.6 Hypokalemia; Z87.440 Personal history of urinary (tract) infections; Y92.019 Unspecified place in single-family (private) house as the place of occurrence of the external cause; D64.9 Anemia, unspecified; F17.219 Nicotine dependence, cigarettes, with unspecified nicotine-induced disorders; R00.1 Bradycardia, unspecified; I50.30 Unspecified diastolic (congestive) heart failure; S14.109S Unspecified injury at unspecified level of cervical spinal cord, sequela; L89.154 Pressure ulcer of sacral region, stage 4; G82.50 Quadriplegia, unspecified; K20.90 Esophagitis, unspecified without bleeding; Z79.01 Long term (current) use of anticoagulants; D72.829 Elevated white blood cell count, unspecified; J44.9 Chronic obstructive pulmonary disease, unspecified; Z87.442 Personal history of urinary calculi; X58.XXXS Exposure to other specified factors, sequela; T83.090A Other mechanical complication of cystostomy catheter, initial encounter; R33.9 Retention of urine, unspecified; M46.28 Osteomyelitis of vertebra, sacral and sacrococcygeal region; Z93.51 Cutaneous-vesicostomy status; A08.11 Acute gastroenteropathy due to Norwalk agent; N13.30 Unspecified hydronephrosis; T83.510A Infection and inflammatory reaction due to cystostomy catheter, initial encounter; Z86.711 Personal history of pulmonary embolism; F14.90 Cocaine use, unspecified, uncomplicated

== ENCOUNTER 2024-04-18 11:37 | Inpatient (IN) ==
--- NOTE | 2024-04-18 11:46 | Emergency Department Note ---
Impression & Plan Abdominal pain, Quadriplegia, Sacral pain ED Provider Note NAME: NEHEMIAS SANTOS AGE: 48 SEX: M : 1975 ARRIVES VIA: Ambulance INFORMANT: Patient ED PROVIDER(S): Eric Gonzalez DO CHIEF COMPLAINT: Abdominal pain HPI: Patient is a 48-year-old male with a past medical history of complicated UTI, sepsis, MRSA, spinal cord injury level C4 who presents to the ER for lower pelvic pain. He notes it feels like his previous UTIs. He has been on antibiotics as an outpatient with no improvement. He denies any headache or change in vision. No chest pain or shortness of breath. He does admit to pain at the base of his sacrum which been present for quite some time. No dysuria, urgency, or frequency. No other exacerbating or remitting factors. These are the same symptoms he was here for 2 days ago. ADDITIONAL HISTORY OBTAINED: Per HPI Chronic Medical/Social Conditions Affecting Care: Per HPI PAST MEDICAL HISTORY:See Below PAST SURGICAL HISTORY:See Below FAMILY HISTORY:See Below SOCIAL HISTORY:See Below HOME MEDICATIONS:See Below ALLERGIES:See Below VITALS:See Below PHYSICAL EXAMINATION: GENERAL: Sitting up in bed, alert, disheveled, nontoxic EYE EXAM: normal conjunctiva. PERRL and EOM's grossly intact. OROPHARYNX: no exudate, no erythema, lips, buccal mucosa, and tongue normal and mucous membranes are moist NECK: supple, no nuchal rigidity, no adenopathy, non-tender LUNGS: Clear to auscultation. Normal chest wall mechanics HEART: no murmurs, S1 normal and S2 normal ABDOMEN: abdomen soft, non-tender, normo-active bowel sounds, no masses, no rebound or guarding. : Suprapubic catheter in place BACK: Sacral wound present which is packed. No drainage or discharge. UPPER EXTREMITIES: upper extremities are grossly normal. LOWER EXTREMITIES: No pitting edema. NEURO EXAM: Normal sensorium, cranial nerves II-XII grossly intact, normal speech. MEDICAL DECISION MAKING: Patient is a 48-year-old male who is a quadriplegic who presents to the ER for right lower pelvic pain. IV was established blood work is obtained. Labs show no significant leukocytosis or anemia. BMP along with LFTs bilirubin and lipase was unremarkable. External records were reviewed including urine cultures which show a fair amount of resistance. There is just seen and evaluated 2 to 3 days ago and discharged. Urine culture was contaminated. CT abdomen pelvis was obtained at that time was unremarkable. Patient was given IV fluids, morphine and catheter/bag was changed. Patient was discussed with the hospitalist for further evaluation management treatment. Patient was given IV cefepime while here in the ER. CT was not repeated as this was the same pain that he had upon presentation several days ago with a negative scan. Consults/Care Managements Discussions: Per MDM Triage Nursing notes reviewed. Limited review of prior medical records performed Vital Signs: reviewed and remarkable for no significant abnormalities Differential diagnosis: Differential diagnoses includes but is not limited to gastritis, peptic ulcer disease, GERD, gallbladder disease, pancreatitis, small bowel obstruction, appendicitis, diverticulitis, hernia, urinary tract infection, torsion, [/ectopic (if female)], perforation, trauma, infectious. ER treatment provided: See below Diagnostics interpreted by me include EKG and cardiac monitoring as listed below: -Cardiac Monitoring: An order was placed for continuous cardiac monitoring. The monitor shows a rate of 68 with sinus rhythm. -ECG: none -Laboratory studies:Interpreted by me as stated above in MDM and shown below. Imaging studies: Xrays: As interpreted by me:none CTs show: none Procedures:none Critical Care: None Past Med/Surg History Problem List (Updated 04/18/24 @ 15:44 by Carly Dean PA-C) Constipation Complicated urinary tract infection (Acute) Hydronephrosis (Acute) Acute urinary retention (Acute) Leukocytosis (Acute) Complication, blocked suprapubic catheter Hypokalemia (Acute) Hypomagnesemia (Acute) Anemia (Acute) Quadriplegia (Acute) Sacral decubitus ulcer (Acute) Acute UTI (Acute) Hypotension (Acute) Encephalopathy Pneumonia (Acute) Complicated urinary tract infection (Acute Unknown) Change or removal of nonsurgical wound dressing Acute hypoxemic respiratory failure (Acute) Chest pain (Acute) Abdominal pain (Acute) Severe sepsis (Acute) MRSA carrier Pneumonia (Acute) Hypoxic respiratory failure (Acute) 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 Leg wound, right Leg wound, left History of pulmonary embolism Hypoxia (Acute) RSV (respiratory syncytial virus infection) Chronic pain Suprapubic catheter (Acute) Complicated UTI (urinary tract infection) (Acute) Sacral decubitus ulcer, stage IV (Acute) Chronic osteomyelitis of sacrum Medical History Aspiration pneumonitis Pneumonia Paraplegia Surgical History No pertinent past surgical history Social History Smoking Status: Current every day smoker Tobacco Type: Cigarettes Cigarettes Per Day: 50-60; Second Hand Exposure: Yes; Do You Dip or Chew Tobacco: No; Hx Alcohol Use: No Hx Substance Use: Yes Non-Prescribed Medications: Crack / Cocaine and Marijuana Preferred Language: Croatian Communication Ability: Effective Psychology Associate Required: No Beliefs That Will Affect Care: None Current Living Situation: Alone Current Living Situation Comment: alone with 28/02 home care Feels Safe at Home: Yes Assistive Devices: Hospital Bed, Mechanical Lift and Wheelchair Allergies Allergies Allergy/AdvReac Type Severity Reaction Status Date / Time No Known Allergies Allergy Verified 01/29/24 21:32 Home Meds Home Medications Medication Instructions Recorded Confirmed Naloxone 4 Mg/0.1ml 1 spray intranasal (ALT) 01/29/24 04/18/24 DIRECTED PRN opiod od Sterile Water For Irrigation 1 ea NA BID 01/29/24 04/18/24 apixaban 5 mg tablet (Eliquis) 5 mg PO AMHS 01/29/24 04/18/24 bisacodyl 10 mg rectal suppository 10 mg TN AMPM 01/29/24 04/18/24 budesonide-formoterol HFA 160 2 puff inhalation [facility] 01/29/24 04/18/24 mcg-4.5 mcg/actuation aerosol inhaler celecoxib 200 mg capsule 200 mg PO DAILY PRN Pain 01/29/24 04/18/24 collagenase clostridium histo. 250 1 applic topical DAILY 01/29/24 04/18/24 unit/gram topical ointment docusate sodium 100 mg capsule 100 mg PO BID PRN Constipation 01/29/24 04/18/24 duloxetine 60 mg capsule,delayed 60 mg PO QAM 01/29/24 04/18/24 release sprinkle ferrous sulfate 325 mg (65 mg 325 mg PO QDB 01/29/24 04/18/24 iron) tablet gabapentin 100 mg capsule 100 mg PO TID 01/29/24 04/18/24 hydroxyzine HCl 25 mg tablet 25 mg PO DAILY PRN Anxiety 01/29/24 04/18/24 lactulose 20 gram/30 mL oral 20 g PO TID 01/29/24 04/18/24 solution lidocaine 5 % topical patch 1 patch topical DAILY PRN Pain 01/29/24 04/18/24 oxybutynin chloride 10 mg 10 mg PO QAM 01/29/24 04/18/24 tablet,extended release 24 hr sennosides 8.6 mg-docusate sodium 2 tab-cap PO HS 01/29/24 04/18/24 50 mg tablet (Senokot-S) simethicone 80 mg chewable tablet 80 mg PO TID 01/29/24 04/18/24 sodium hypochlorite 0.25 % 1 irrig topical BID 01/29/24 04/18/24 solution (Dakin's Solution) tiotropium bromide 2.5 2 puff inhalation QAM 01/29/24 04/18/24 mcg/actuation mist for inhalation (Spiriva Respimat) ascorbic acid (vitamin C) 500 mg 500 mg PO QAM 03/04/24 04/18/24 tablet (Vitamin C) famotidine 20 mg tablet 20 mg PO AMHS 03/04/24 04/18/24 melatonin 3 mg capsule 3 mg PO HS 03/04/24 04/18/24 pediatric multivitamin 1 tab PO DAILY 03/04/24 04/18/24 Previous Rx's Medication Instructions Recorded baclofen 20 mg tablet 20 mg PO TID PRN spasms #60 tabs 02/01/24 L.acidop,casei,lactis,rham-B.lact,corinna 1 cap PO DAILY #5 caps 04/01/24 625 mg (10 billion cell) capsule (Advanced Probiotic) midodrine 10 mg tablet 10 mg PO TID PRN Hypotension #30 04/01/24 tabs ciprofloxacin HCl 500 mg tablet 500 mg PO BID 7 days #14 tabs 04/15/24 (Cipro) Results & Data (ED) Vital Signs Vital Signs - 24 hr 04/18/24 11:48 Temperature 36.3 C L Temperature Source Oral Pulse Rate 63 Respiratory Rate 16 Blood Pressure 141/100 H Blood Pressure Mean 113 Pulse Oximetry 96 Oxygen Delivery Method Room Air Sepsis Recent Fever Within 48 Hours No Sepsis New/Unexplained Change in Mental Status No Sepsis Action Taken by Nursing No Action Required Laboratory Data 04/18/24 11:58 04/18/24 11:58 Lab Results 04/18/24 Range/Units 11:58 WBC 8.96 (4.8-10.8) K/ul RBC 4.92 (4.70-6.10) M/uL Hgb 13.0 L (14.0-18.0) g/dl Hct 41.3 L (42.0-52.0) % MCV 83.9 (80.0-100.0) fL MCH 26.4 (25.0-34.0) pg MCHC 31.5 L (32.0-36.0) g/dL RDW Std Deviation 58.1 H (36.4-46.3) fL RDW Coeff of Adelia 19.4 H (11.5-14.5) % Plt Count 242 (130-400) K/uL MPV 10.3 (9.4-12.4) fL Immature Gran % (Auto) 0.3 % Neut % (Auto) 70.2 % Lymph % (Auto) 17.4 % Alpine % (Auto) 6.9 % Eos % (Auto) 4.2 % Baso % (Auto) 1.0 % Neut # (Auto) 6.28 (1.40-6.50) K/uL Lymph # (Auto) 1.56 (1.20-3.40) K/uL Alpine # (Auto) 0.62 H (0.11-0.59) K/uL Eos # (Auto) 0.38 (0.00-0.50) K/uL Baso # (Auto) 0.09 (0.00-0.20) K/uL Immature Gran # (Auto) 0.03 (0.01-0.20) K/uL Sodium 139 (136-145) mmol/L Potassium 4.0 (3.5-5.1) mmol/L Chloride 106 (98-107) mmol/L Carbon Dioxide 27 (21-32) mmol/L Anion Gap 6 (3-11) BUN 11 (6-23) mg/dl Creatinine 0.52 L (0.6-1.4) mg/dl Est Cr Clr Drug Dosing Not Reportable Est GFR ( Amer) 147.2 ml/min Est GFR (Non-Af Amer) 127.0 ml/min BUN/Creatinine Ratio 21.2 H (10-20) Glucose 104 H (70-99(Fasting)) mg/dl Calcium 8.9 (8.6-10.3) mg/dl Total Bilirubin 0.3 (0.2-1.0) mg/dl AST 16 (13-39) U/L ALT 6 L (7-52) U/L Alkaline Phosphatase 105 H (34-104) U/L Total Protein 6.4 (6.0-8.3) gm/dl Albumin 3.7 (3.4-5.0) gm/dl Globulin 2.7 (2.5-4.0) gm/dl Albumin/Globulin Ratio 1.4 (0.9-2) Lipase 12 (11-82) U/L Administered Medications Discontinued Medications Cefepime HCl (Maxipime) 2,000 mg in 20 mls @ 5 mls/min IV NOW STA; Protocol Stop: 04/18/24 11:51 Last Admin: 04/18/24 11:58 Dose: 5 mls/min Documented By: CASPER Morphine Sulfate (Morphine Sulfate 4 Mg/Ml 1 Ml Carp\Vial) 4 mg IV NOW STA Stop: 04/18/24 11:50 Last Admin: 04/18/24 11:58 Dose: 4 mg Documented By: CASPER Imaging Data Radiologist's Impression: KUB X-Ray 04/18/24 14:16 KUB CLINICAL HISTORY: Abdominal pain. COMPARISON STUDY: CT of the abdomen and pelvis April 15, 2024. FINDINGS: Status post cholecystectomy. There is gas throughout small and large bowel. There is no evidence for a bowel obstruction. There is a moderate amount of stool within the colon and rectum. Multiple left renal calculi are identified. Suprapubic catheter is in place. IMPRESSION: 1. No evidence for a bowel obstruction. 2. Moderate amount of stool within the colon and rectum. 3. Left-sided nephrolithiasis. ACT 112: Negative or not required by law. Electronically signed by: Teja Moreno M.D. 04/18/2024 3:34 PM Discharge Plan Visit Data Chief Complaint: Abdominal Pain Stated Complaint: ABDOMINAL PAIN ED Provider: Eric Gonzalez Discharge Problem: Abdominal pain, Quadriplegia, Sacral pain Forms Stand Alone Forms: My [facility] [employer] Prescriptions Prescriptions: No Action celecoxib 200 mg capsule 200 mg PO DAILY PRN (Reason: Pain) oxybutynin chloride 10 mg Tablet Extended Release 24hr 10 mg PO QAM sennosides-docusate sodium [Senokot-S] 8.6-50 mg Tablet 2 tab-cap PO HS Rx Instructions: hold for loose stool bisacodyl 10 mg Suppository 10 mg TN AMPM Rx Instructions: hold for loose stools lidocaine 5 % adhesive patch,medicated 1 patch topical DAILY PRN (Reason: Pain) docusate sodium 100 mg Capsule 100 mg PO BID PRN (Reason: Constipation) hydroxyzine HCl 25 mg Tablet 25 mg PO DAILY PRN (Reason: Anxiety) gabapentin 100 mg Capsule 100 mg PO TID Rx Instructions: Take am, noon, hs simethicone 80 mg Tablet,Chewable 80 mg PO TID budesonide-formoterol 160-4.5 mcg/actuation HFA aerosol inhaler 2 puff INHALATION AMHS lactulose 20 gram/30 mL Solution 20 g PO TID Rx Instructions: Hold for multiple loose BMs Spiriva Respimat 2.5 mcg/actuation mist 2 puff INHALATION QAM Eliquis 5 mg tablet 5 mg PO AMHS Naloxone 4 Mg/0.1ml 1 spray intranasal (ALT) DIRECTED PRN (Reason: opiod od) Rx Instructions: suspected opoid od, 1 spray into 1 nostril Sterile Water For Irrigation 1 ea NA BID Rx Instructions: 1 liter bottle x 2. Irrigate suprapubic cath bid and allow to drain with 60- 120 ml of sterile irrigant. ferrous sulfate 325 mg (65 mg iron) Tablet 325 mg PO QDB collagenase clostridium histo. 250 unit/gram Ointment 1 applic TOPICAL DAILY Rx Instructions: apply to foot ulcers and cover dry bandage. Dakin's Solution 0.25 % Solution 1 irrig TOPICAL BID Rx Instructions: 1/2 strength, apply with packing. Use sterile wound wash 0.9% if dakins not available. duloxetine 60 mg Capsule, Delayed Rel Sprinkle 60 mg PO QAM baclofen 20 mg tablet 20 mg PO TID PRN (Reason: spasms) Qty: 60 0RF famotidine 20 mg Tablet 20 mg PO AMHS pediatric multivitamin Tablet,Chewable 1 tab PO DAILY melatonin 3 mg capsule 3 mg PO HS ascorbic acid (vitamin C) [Vitamin C] 500 mg Tablet 500 mg PO QAM Advanced Probiotic 625 mg (10 billion cell) Capsule 1 cap PO DAILY Qty: 5 0RF midodrine 10 mg tablet 10 mg PO TID PRN (Reason: Hypotension) Qty: 30 0RF Rx Instructions: Given If Systolic Blood pressure less than 90 ciprofloxacin HCl [Cipro] 500 mg tablet 500 mg PO BID 7 Days Qty: 14 0RF Referrals Referrals: Chay Aguilar, [Primary Care Provider] -
[2024-04-18] MEDS: MoRPHine SULFATE 4 MG/ML 1 ML CARP\\VIAL IV STA (11:58)
[2024-04-18] MEDS: CEFEPIME 2,000 MG/20 ML VIAL IV STA (11:58)
[2024-04-18 12:16] LABS: Basophils # (auto) 0.09 K/uL (0.00-0.20); Eosinophils # (auto) 0.38 K/uL (0.00-0.50); Eosinophils % (auto) 4.2 %; Hematocrit (blood only) 41.3 % (42.0-52.0); Immature Granulocytes # (auto) 0.03 K/uL (0.01-0.20); Immature Granulocytes % (auto) 0.3 %; Lymphocytes # (auto) 1.56 K/uL (1.20-3.40); Lymphocytes % (auto) 17.4 %; Mean Corpuscular Hemoglobin 26.4 pg (25.0-34.0); Mean Corpuscular Hgb Conc 31.5 g/dL (32.0-36.0); Mean Corpuscular Volume 83.9 fL (80.0-100.0); Mean Platelet Volume 10.3 fL (9.4-12.4); Monocytes # (auto) 0.62 K/uL (0.11-0.59); Monocytes % (auto) 6.9 %; Neutrophils # (auto) 6.28 K/uL (1.40-6.50); Neutrophils % (auto) 70.2 %; Platelet Count 242 K/uL (130-400); RDW Coefficient of Variation 19.4 % (11.5-14.5); RDW Standard Deviation 58.1 fL (36.4-46.3); Red Blood Count 4.92 M/uL (4.70-6.10); White Blood Count 8.96 K/ul (4.8-10.8)
[2024-04-18 12:35] LABS: Alanine Aminotransferase 6 U/L (7-52); Albumin Globulin Ratio 1.4 (0.9-2); Albumin Level 3.7 gm/dl (3.4-5.0); Alkaline Phosphatase 105 U/L (34-104); Anion Gap 6 (3-11); Aspartate Aminotransferase 16 U/L (13-39); BUN Creatinine Ratio 21.2 (10-20); Bilirubin,Total 0.3 mg/dl (0.2-1.0); Blood Urea Nitrogen 11 mg/dl (6-23); Calcium 8.9 mg/dl (8.6-10.3); Carbon Dioxide 27 mmol/L (21-32); Chloride 106 mmol/L (98-107); Est GFR (African American) 147.2 ml/min; Globulin 2.7 gm/dl (2.5-4.0); Glucose 104 mg/dl (70-99(Fasting)); Lipase 12 U/L (11-82); Sodium 139 mmol/L (136-145); Total Protein 6.4 gm/dl (6.0-8.3)
--- NOTE | 2024-04-18 13:47 | History & Physical Report ---
Date of Service April 18, 2024 Assessment & Plan (1) Abdominal pain: (2) Constipation: (3) Chronic pain: (4) Suprapubic catheter: (5) Chronic osteomyelitis of sacrum: (6) Sacral decubitus ulcer, stage IV: Plan: Abdominal pain Constipation H/O neurogenic bladder with chronic indwelling suprapubic catheter H/O nephrolithiasis Afebrile, no leukocytosis, normal lipase, LFTs unremarkable KUB: no obstruction, +stool Awaiting UA to r/o UTI. 04/15/24 UA likely contamination and not UTI. If UA positive will add antibiotics CT abd/pelvis 04/15/24: Wall thickening of the rectum redemonstrated suggestive of a nonspecific proctitis. Chronic postoperative changes of the sacrum and coccyx with findings suggestive of chronic osteomyelitis adjacent to a chronic large sacral decubitus ulcer. Nonobstructing bilateral nephrolithiasis with resolution of the previously seen hydronephrosis.Suprapubic catheter in place with a decompressed urinary bladder. Bladder US pending Will hold on repeat CT abd/pelvis as one from 04/15/24 is consistent will other recent CT abd/pelvis he has had Will restart lactulose as pt had improvement with this previously but ran out at home Pyridium as needed If suprapubic catheter becomes obstructed plan for urology consult but currently appears to be draining well Bladder scan as needed Will avoid narcotic pain medication CBC, BMP in am Chronic sacral decubitus ulcer stage IV Chronic osteomyelitis Does not appear acutely infected Wound nurse consult Air mattress History asymptomatic episodic bradycardia Monitor on telemetry Previously advised to have outpatient Zio monitor COPD Tobacco use disorder No signs of acute exacerbation Continue home inhalers Substance use disorder PDMP reviewed and not filled since 01/2024. 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 Per chart review history recurrent hospitalizations with [facility] hospitalization 03/24/2024-04/01/2024 for complicated UTI and possible pyelonephritis, possible sepsis, Urine culture + Pseudomonas, E. coli and was treated with 7-day course IV cefepime as recommended by infectious disease. Had CT abd/pelvis suggestive of distal proctocolitis and has chronic sacral decubi tus ulcer and osteomyelitis with wound culture +pseudomonas, and was treated with cefepime as above. Repeat hospitalization on 04/04/2024-04/06/2024 for obstructed suprapubic cath, hypotension, diarrhea, fecal retention in which was norovirus positive. Hypotension improved with IV fluids and midodrine. Urology had exchanged his suprapubic pubic catheter and was draining well. Initially was treated with antibiotics for possible UTI however urine culture negative and was discharged home. [facility] ER visit on 04/15/2024 for abdominal pain in which thought possible UTI and patient was given Cipro and discharged home. Patient returns to ER today with complaints of continued burning sensation at site of suprapubic catheter. He states the catheter is draining and denies noted hematuria. He denies any known fever or chills. States he always feels cold. States having trouble moving bowels. States used to use lactulose however ran out and since not having as regular BM's. Denies nausea or vomiting. Patient reports chronic "all over spasms" and has baclofen to use. He is requesting dose now as he is due for noon dose. Has chronic pain to sacrum from wound that he states doesn't feel any worse. He states in past used pain meds but hasn't had any filled since 01/2024 per my PDMP review. Denies hematochezia, melena, diarrhea, HERNÁNDEZ, dizziness, syncope, CP, SOB, cough, sore throat, rhinorrhea, rashes. Allergies Allergy/AdvReac Type Severity Reaction Status Date / Time No Known Allergies Allergy Verified 01/29/24 21:32 Home Medications Medication Instructions Recorded Confirmed Type Naloxone 4 Mg/0.1ml 1 spray intranasal (ALT) 01/29/24 04/18/24 History DIRECTED PRN opiod od Sterile Water For Irrigation 1 ea NA BID 01/29/24 04/18/24 History apixaban 5 mg tablet (Eliquis) 5 mg PO AMHS 01/29/24 04/18/24 History bisacodyl 10 mg rectal suppository 10 mg AK AMPM 01/29/24 04/18/24 History budesonide-formoterol HFA 160 2 puff inhalation AMHS 01/29/24 04/18/24 History mcg-4.5 mcg/actuation aerosol inhaler celecoxib 200 mg capsule 200 mg PO DAILY PRN Pain 01/29/24 04/18/24 History collagenase clostridium histo. 250 1 applic topical DAILY 01/29/24 04/18/24 History unit/gram topical ointment docusate sodium 100 mg capsule 100 mg PO BID PRN Constipation 01/29/24 04/18/24 History duloxetine 60 mg capsule,delayed 60 mg PO QAM 01/29/24 04/18/24 History release sprinkle ferrous sulfate 325 mg (65 mg 325 mg PO QDB 01/29/24 04/18/24 History iron) tablet gabapentin 100 mg capsule 100 mg PO TID 01/29/24 04/18/24 History hydroxyzine HCl 25 mg tablet 25 mg PO DAILY PRN Anxiety 01/29/24 04/18/24 History lactulose 20 gram/30 mL oral 20 g PO TID 01/29/24 04/18/24 History solution lidocaine 5 % topical patch 1 patch topical DAILY PRN Pain 01/29/24 04/18/24 History oxybutynin chloride 10 mg 10 mg PO QAM 01/29/24 04/18/24 History tablet,extended release 24 hr sennosides 8.6 mg-docusate sodium 2 tab-cap PO HS 01/29/24 04/18/24 History 50 mg tablet (Senokot-S) simethicone 80 mg chewable tablet 80 mg PO TID 01/29/24 04/18/24 History sodium hypochlorite 0.25 % 1 irrig topical BID 01/29/24 04/18/24 History solution (Dakin's Solution) tiotropium bromide 2.5 2 puff inhalation QAM 01/29/24 04/18/24 History mcg/actuation mist for inhalation (Spiriva Respimat) baclofen 20 mg tablet 20 mg PO TID PRN spasms #60 tabs 02/01/24 04/18/24 Rx ascorbic acid (vitamin C) 500 mg 500 mg PO QAM 03/04/24 04/18/24 History tablet (Vitamin C) famotidine 20 mg tablet 20 mg PO AMHS 03/04/24 04/18/24 History melatonin 3 mg capsule 3 mg PO HS 03/04/24 04/18/24 History pediatric multivitamin 1 tab PO DAILY 03/04/24 04/18/24 History L.acidop,casei,lactis,rham-B.lact,corinna 1 cap PO DAILY #5 caps 04/01/24 04/18/24 Rx 625 mg (10 billion cell) capsule (Advanced Probiotic) midodrine 10 mg tablet 10 mg PO TID PRN Hypotension #30 04/01/24 04/18/24 Rx tabs ciprofloxacin HCl 500 mg tablet 500 mg PO BID 7 days #14 tabs 04/15/24 04/18/24 Rx (Cipro) Past Med/Surg History Problem List (Updated 04/18/24 @ 15:44 by Carly Dean PA-C) Constipation Complicated urinary tract infection (Acute) Hydronephrosis (Acute) Acute urinary retention (Acute) Leukocytosis (Acute) Complication, blocked suprapubic catheter Hypokalemia (Acute) Hypomagnesemia (Acute) Anemia (Acute) Quadriplegia (Acute) Sacral decubitus ulcer (Acute) Acute UTI (Acute) Hypotension (Acute) Encephalopathy Pneumonia (Acute) Complicated urinary tract infection (Acute Unknown) Change or removal of nonsurgical wound dressing Acute hypoxemic respiratory failure (Acute) Chest pain (Acute) Abdominal pain (Acute) Severe sepsis (Acute) MRSA carrier Pneumonia (Acute) Hypoxic respiratory failure (Acute) 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 Leg wound, right Leg wound, left History of pulmonary embolism Hypoxia (Acute) RSV (respiratory syncytial virus infection) Chronic pain Suprapubic catheter (Acute) Complicated UTI (urinary tract infection) (Acute) Sacral decubitus ulcer, stage IV (Acute) Chronic osteomyelitis of sacrum Medical History Aspiration pneumonitis Pneumonia Paraplegia Surgical History No pertinent past surgical history Social History Smoking Status: Current every day smoker Tobacco Type: Cigarettes Cigarettes Per Day: 50-60; Second Hand Exposure: Yes; Do You Dip or Chew Tobacco: No; Hx Alcohol Use: No Hx Substance Use: Yes Non-Prescribed Medications: Crack / Cocaine and Marijuana Preferred Language: Sinhala Communication Ability: Effective 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: No Beliefs That Will Affect Care: None Current Living Situation: Alone Current Living Situation Comment: alone with 28/02 home care Feels Safe at Home: Yes Assistive Devices: Hospital Bed, Mechanical Lift and Wheelchair Review of Systems Review of Systems: All systems reviewed & are unremarkable except as noted in HPI & below Physical Exam Physical Exam: General Appearance: WDWN, chronic ill appearing Head: normocephalic, atraumatic Eyes: normal inspection, EOM's intact, conjunctiva non-injected, anicteric Neck: supple, trachea midline Lungs: no respiratory distress, 93% on RA, decreased breath sounds throughout CV: RRR, no murmur, no pretibial edema Abd: normal BS, soft, diffuse tenderness to palpation lower abdomen, suprapubic catheter in place and appears to be draining Ext: no cyanosis, no erythema Neuro: Alert, oriented to person, place, month, year, BUE: limited active movement, BLE: limited movement RLE with no active movement LLE Skin: warm, dry Results & Data Results & Data Vital Signs (Past 12 Hours) Vital Signs Temp Pulse Resp BP Pulse Ox O2 Del Method 04/18/24 11:48 36.3 C L 63 16 141/100 H 96 Room Air Laboratory Results Short CBC 04/18/24 Range/Units 11:58 WBC 8.96 (4.8-10.8) K/ul Hgb 13.0 L (14.0-18.0) g/dl Hct 41.3 L (42.0-52.0) % Plt Count 242 (130-400) K/uL BMP 04/18/24 11:58 Sodium 139 Potassium 4.0 Chloride 106 Carbon Dioxide 27 BUN 11 Creatinine 0.52 L Glucose 104 H Calcium 8.9 Liver Function 04/18/24 Range/Units 11:58 Total Bilirubin 0.3 (0.2-1.0) mg/dl AST 16 (13-39) U/L ALT 6 L (7-52) U/L Alkaline Phosphatase 105 H (34-104) U/L Albumin 3.7 (3.4-5.0) gm/dl Diagnostic Findings KUB X-Ray 04/18/24 14:16 KUB CLINICAL HISTORY: Abdominal pain. COMPARISON STUDY: CT of the abdomen and pelvis April 15, 2024. FINDINGS: Status post cholecystectomy. There is gas throughout small and large bowel. There is no evidence for a bowel obstruction. There is a moderate amount of stool within the colon and rectum. Multiple left renal calculi are identified. Suprapubic catheter is in place. IMPRESSION: 1. No evidence for a bowel obstruction. 2. Moderate amount of stool within the colon and rectum. 3. Left-sided nephrolithiasis. ACT 112: Negative or not required by law. Electronically signed by: Teja Moreno M.D. 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 He denies any fever, hematuria, nausea, vomiting, chest pain, dyspnea. Patient also states that he had some pain at the sacral decubitus wound region. He was evaluated in ED 2 days ago and was advised to be hospitalized to get treated for possible UTI, proctitis but patient refused admission at the time. He was discharged on ciprofloxacin course which she is currently taking. Please review HPI for complete details of presentation. I personally reviewed blood work and imaging studies. KUB showed findings suggestive of moderate constipation, left-sided nephrolithiasis. Urine analysis currently pending. Physical Exam: Vitals signs as noted above General Appearance:Moderately built and nourished, no apparent distress, chronic ill appearing Head: normocephalic, Atraumatic Eyes: normal inspection, EOMI Neck: supple, Trachea midline Respiratory/Chest: Decreased breath sounds, No accessory muscle use Cardiovascular: S1, S2, No murmur, bradycardia Abdomen/GI:Soft, mild tender, Bowel sounds decreased Extremities/Musculoskeletal:normal inspection, no pedal edema Neurologic/Psych: B/L UE 3/5, LE 0/5, alert awake and oriented x 3 Skin: normal color, warm Constipation Suspected complicated UTI KUB showed no signs of obstruction Urinalysis currently pending Started on bowel regimen Will consider IV antibiotics based on urine analysis results Minimize narcotic use Elevated blood pressure Likely situational Monitor BP Other chronic conditions Stable Continue home medications as able I personally interviewed and examined at bedside. Patient's care is coordinated with Carly Dean PA-C. I have reviewed the advanced practitioner's documentation, and I agree with plan of care. Please refer to the documentation above for details of patient's presentation and for discussion of other issues. I spent a total [id number] coordinating, documenting, and providing care for this patient excluding time spent in the performance of separately billed services.
[2024-04-18] MEDS ORDERED: PHENAZOPYRIDINE HCL 200 MG TAB PO PRN (14:16)
--- NOTE | 2024-04-18 15:35 | XRay Report ---
KUB CLINICAL HISTORY: Abdominal pain. COMPARISON STUDY: CT of the abdomen and pelvis April 15, 2024. FINDINGS: Status post cholecystectomy. There is gas throughout small and large bowel. There is no elin dence for a bowel obstruction. There is a moderate amount of stool within the colon and rectum. Multi ple left renal calculi are identified. Suprapubic catheter is in place. IMPRESSION: 1. No evidence for a bowel obstruction. 2. Moderate amount of stool within the colon and rectum. 3. Left-sided nephrolithiasis. ACT 112: Negative or not required by law. Electronically signed by: Teja Moreno M.D. 04/18/2024 3:34 PM
[2024-04-18] MEDS: SODIUM CHLORIDE 0.9% 500 ML IV ONE ×2 (15:50→17:59)
[2024-04-18] MEDS: BACLOFEN 20 MG TAB PO STA (15:50)
[2024-04-18 16:01] LABS: Amorphous Sediment Urine Present (None Prsent); Appearance Urine Cloudy (Clear); Bacteria Urine Automated None Seen (None Seen); Bilirubin Urine Negative (Negative); Blood Urine 1+ (Negative); Calcium Oxalate Crystals Urine Present (None Prsent); Cast Urine Automated 0-2 /lpf (0-2); Color Urine Yellow; Epithelial Cell Urine Auto 0-2 /hpf (0-2); Glucose Urine UA Negative (Negative); Ketones Urine Negative (Negative); Leukocyte Esterase Urine 2+ (Negative); Nitrite Urine Negative (Negative); Protein Urine Trace (Negative); Specific Gravity Urine 1.019 (1.000-1.030); Urobilinogen Urine Negative (Negative); WBC Urine Automated >50 /hpf (0-5); pH Urine 8.5 (4.5-7.5)
[2024-04-18 16:50] LABS: Amphetamines+Metham, Urine Neg (Neg); Barbiturates, Urine Neg (Neg); Benzodiazepine, Urine Neg (Neg); Cocaine, Urine Neg (Neg); Fentanyl, Urine Neg (Neg); MDMA (Ecstacy), Urine Neg (Neg); Marijuana, Urine Pos (Neg); Methadone, Urine Neg (Neg); Opiate, Urine Pos (Neg); Phencyclidine, Urine Neg (Neg)
[2024-04-18] MEDS ORDERED: LIDOCAINE 5% 1 PATCH TD PRN (17:20)
[2024-04-18] MEDS ORDERED: DOCUSATE SODIUM 100 MG CAP PO PRN (17:20)
--- NOTE | 2024-04-18 17:24 | Ultrasound Report ---
RENAL ULTRASOUND CLINICAL HISTORY: Abdominal pain. Suprapubic catheter. COMPARISON STUDY: CT of the abdomen and pelvis April 15, 2024. TECHNIQUE: Sonography of the kidneys and the urinary bladder was performed. FINDINGS: The right kidney measures 11 cm in maximal dimension and the left measures 10.9 cm. There i s no hydronephrosis. The bilateral renal calculi on CT of April 15, 2024 are not well-visualized b y sonography. No renal masses are present. Suprapubic catheter is in place. Bladder wall thickening i s present. IMPRESSION: 1. No hydronephrosis. 2. Suprapubic catheter in place. Stable bladder wall thickening, likely chronic. 3. The bilateral renal calculi on CT of April 15, 2024 are occult by sonography. ACT 112: Negative or not required by law. Electronically signed by: Teja Moreno M.D. 04/18/2024 5:22 PM
[2024-04-18] MEDS: LACTATED RINGER'S 1,000 ML IV SCH (17:48)
[2024-04-18] MEDS: SODIUM CHLORIDE 0.9% 1,000 ML IV SCH (18:30)
[2024-04-18] MEDS: bisacodyL 10 MG SUPP PR SCH (19:24)
[2024-04-18] MEDS: DOCUSATE SODIUM/SENNA 50/8.6MG TAB PO SCH (19:28)
[2024-04-18] MEDS: LACTULOSE SYRUP 20 GM/30 ML UDC PO SCH (19:29)
[2024-04-18] MEDS ORDERED: MIDODRINE HCL 10 MG TAB PO PRN (19:33)
--- NOTE | 2024-04-18 20:13 | Communication Note ---
Date of Service: April 18, 2024 Given blood pressure being very variable, will monitor on Vivogig. Plan to utilize midodrine for hypotension.
[2024-04-18] MEDS: GABAPENTIN 100 MG CAP PO SCH (20:33)
[2024-04-18] MEDS: MIDODRINE HCL 10 MG TAB PO ONE (20:34)
[2024-04-18] MEDS: SIMETHICONE 80 MG CHEW PO SCH (20:34)
[2024-04-18] MEDS: MELATONIN 3 MG TAB PO SCH (20:35)
[2024-04-18] MEDS: FAMOTIDINE 20 MG TAB PO SCH (20:35)
[2024-04-18] MEDS: APIXABAN 5 MG TABLET PO SCH (20:35)
[2024-04-18] MEDS: DAKIN'S SOLN 0.25% HALF STRENGTH 473ML BTL EXT SCH (20:36)
[2024-04-18] MEDS ORDERED: bisacodyL 10 MG SUPP PR SCH (21:00)
[2024-04-18] MEDS ORDERED: MIDODRINE HCL 10 MG TAB PO SCH (21:00)
[2024-04-18] MEDS ORDERED: ACETAMINOPHEN 500 MG TAB PO SCH (21:00)
[2024-04-18] MEDS: ACETAMINOPHEN 1,000 MG/100 ML VIAL IV PRN (22:23)
[2024-04-18] MEDS: NALOXONE HCL 0.4 MG/1 ML VIAL/CARP IV STA ×2 (22:50→23:41)
[2024-04-18] MEDS: MIDODRINE HCL 2.5 MG TAB PO STA (23:05)
[2024-04-19] MEDS ORDERED: ACETAMINOPHEN 325 MG TAB PO PRN (00:10)
[2024-04-19] MEDS: CEFEPIME 2,000 MG in SYRINGE 0 ML IV SCH ×2 (00:20→21:01)
[2024-04-19] MEDS: KETOROLAC TROMETHAMINE 15 MG/ML VIAL IV ONE (00:26)
[2024-04-19 04:21] LABS: Hematocrit (blood only) 41.4 % (42.0-52.0); Hemoglobin 13.7 g/dl (14.0-18.0); Mean Corpuscular Hemoglobin 27.2 pg (25.0-34.0); Mean Corpuscular Hgb Conc 33.1 g/dL (32.0-36.0); Mean Corpuscular Volume 82.3 fL (80.0-100.0); Mean Platelet Volume 10.2 fL (9.4-12.4); Platelet Count 259 K/uL (130-400); RDW Coefficient of Variation 19.3 % (11.5-14.5); RDW Standard Deviation 56.4 fL (36.4-46.3); Red Blood Count 5.03 M/uL (4.70-6.10); White Blood Count 11.91 K/ul (4.8-10.8)
[2024-04-19 04:33] LABS: Calcium 9.3 mg/dl (8.6-10.3); Creatinine Clr Calc Pharmacy 185.1 ml/min; Est GFR (African American) 143.8 ml/min; Est GFR (Non-African American) 124.1 ml/min; Potassium 3.9 mmol/L (3.5-5.1)
--- NOTE | 2024-04-19 04:46 | CT Scan Report ---
Exam(s): CT HEAD Without Contrast EXAM: CT Head Without Intravenous Contrast CLINICAL HISTORY: AMS. TECHNIQUE: Axial computed tomography images of the head/brain without intravenous contrast. CTDI is 73.65 mGy and DLP is 938 mGy-cm. Automated exposure control was utilized for the study. A dose lowering technique was utilized adhering to the principles of ALARA. COMPARISON: CT head without contrast dated 03/04/2024 FINDINGS: Brain: No intracranial hemorrhage. No significant mass effect. No evidence for cortical infarct. No significant white matter disease. Ventricles: Unremarkable. No ventriculomegaly. Bones/joints: Unremarkable. No acute fracture. Soft tissues: No significant overlying soft tissue abnormality. Sinuses: Unremarkable as visualized. No acute sinusitis. Mastoid air cells: Unremarkable as visualized. No mastoid effusion. IMPRESSION: No acute intracranial process or significant alteration from the prior examination. Electronically signed by: Moe Berry MD 04/19/24 04:45 AM
[2024-04-19 04:48] LABS: Troponin I High Sensitivity 12.3 pg/ml (0-20)
--- NOTE | 2024-04-19 07:24 | Hospitalist Progress Note ---
Date of Service April 19, 2024 Assessment & Plan (1) Abdominal pain: (2) Constipation: (3) Chronic pain: (4) Suprapubic catheter: (5) Chronic osteomyelitis of sacrum: (6) Sacral decubitus ulcer, stage IV: Plan: Mr. 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 Patient reports not having his bowel regimen refilled as he does not like his PCP so has not followed up for refills. He states abdominal pain is improved. Patient with liable blood pressure--SBP up to 200s when he takes midodrine, but low as 70s without it; however, patient reports he thinks he has always been on 10mg and has never tried lower dosing. Will start lower dose midodrine at 2.5 mg and advised nursing not to lay completely supine for 6-8 hours after administration #Acute on Chronic hypotension #Liable BP iso autonomic dysfunction Home midodrine often sends BP into 200s Patient reports he is always on 10mg since it started Advised not to lay supine while on midodrine Start 2.5mg q8h prn, consider scheduled Follow infectious work up #History asymptomatic episodic bradycardia Monitor on telemetry Previously advised to have outpatient Zio monitor #Abnormal UA #H/O neurogenic bladder with chronic indwelling suprapubic catheter #H/O nephrolithiasis UA without bacteria, always active compared to prior denies sx suggestive of infection; however, given recent issues with bp will cover empirically Continue cefepime until culture results #Abdominal pain resolved #Constipation Afebrile, no leukocytosis, normal lipase, LFTs unremarkable KUB: no obstruction, +stool 04/15/24 UA likely contamination and not UTI. If UA positive will add antibiotics CT abd/pelvis 04/15/24: Wall thickening of the rectum remonstrated suggestive of a nonspecific proctitis. Chronic postoperative changes of the sacrum and coccyx with findings suggestive of chronic osteomyelitis adjacent to a chronic large sacral decubitus ulcer. Nonobstructing bilateral nephrolithiasis with resolution of the previously seen hydronephrosis.Suprapubic catheter in place with a decompressed urinary bladder. Renal US stable No need for further imaging GI consulted, reviewed recommendations -No acute indication for endoscopic evaluation. -OP colonoscopy with his regular GI providers -Restart his home bowel regimen of Lactulose, Senna, colace, dulcolax - Would add Miralax 1-2 capfuls daily Trend HGB Monitor and document GI output #Chronic sacral decubitus ulcer stage IV #Chronic osteomyelitis Does not appear acutely infected Wound nurse consult Air mattress #COPD #Tobacco use disorder No signs of acute exacerbation Continue home inhalers #Substance use disorder PDMP reviewed and not filled since 01/2024. Will attempt to avoid narcotics if able Urine drug screen opioid positive #Quadriplegic secondary to traumatic cervical injury #Functional disability No acute issues, no motor sensation intact Fall precautions #H/O PE Anticoagulated on Eliquis Continue Eliquis #H/O HCV Completed treatment per record #Mood disorder Continue home medications DVTppx eliquis Dispo likely 1 -2 days Admission and Anticipated Discharge Date Admission Date: April 18, 2024 Subjective Bradycardia overnight with hypotension Patient states that his "hands feel heavy" when his pressure drops but denies chest pain, vision changes or other neurologic disturbances Patient denies fevers, chills He reports near resolution of abdominal pain after bowel movement Called to bedside due to low BP, resolved when supine. Patient reports frustration with midodrine as his pressures go "too high" Physical Exam Constitutional: WD/WN, vitals as above Respiratory: normal respiratory effort, lungs clear to auscultation Cardiovascular: RRR, no murmur, no edema Results & Data Results & Data Vital Signs (Past 12 Hours) Vital Signs Pulse Pulse Resp BP BP Pulse Ox O2 Del Method 04/19/24 04:34 74 127/81 97 Room Air 04/19/24 03:30 92 H 87/71 L 96 BiPAP 04/19/24 03:24 59 L 18 96 04/19/24 01:22 38 L 117/86 04/19/24 01:01 81 149/109 H 04/19/24 00:46 45 L 203/115 H 04/19/24 00:36 43 L 207/117 H 04/19/24 00:16 44 L 180/112 H 04/18/24 23:17 81/57 L 04/18/24 23:09 102/64 09/11/24 23:04 83/49 L 04/18/24 22:56 79/54 L 04/18/24 22:45 69/41 L 04/18/24 22:18 155/108 H 04/18/24 22:01 54 L 04/18/24 21:56 61 20 164/108 H 95 Room Air 04/18/24 19:43 70 62/52 L FiO2 04/19/24 04:34 04/19/24 03:30 04/19/24 03:24 21 04/19/24 01:22 04/19/24 01:01 04/19/24 00:46 04/19/24 00:36 04/19/24 00:16 04/18/24 23:17 04/18/24 23:09 04/18/24 23:04 04/18/24 22:56 04/18/24 22:45 04/18/24 22:18 04/18/24 22:01 04/18/24 21:56 04/18/24 19:43 Laboratory Results Short CBC 04/18/24 04/19/24 Range/Units 11:58 04:02 WBC 8.96 11.91 H (4.8-10.8) K/ul Hgb 13.0 L 13.7 L (14.0-18.0) g/dl Hct 41.3 L 41.4 L (42.0-52.0) % Plt Count 242 259 (130-400) K/uL BMP 04/18/24 04/19/24 11:58 04:02 Sodium 139 138 Potassium 4.0 3.9 Chloride 106 109 H Carbon Dioxide 27 21 BUN 11 11 Creatinine 0.52 L 0.55 L Glucose 104 H 119 H Calcium 8.9 9.3 Liver Function 04/18/24 Range/Units 11:58 Total Bilirubin 0.3 (0.2-1.0) mg/dl AST 16 (13-39) U/L ALT 6 L (7-52) U/L Alkaline Phosphatase 105 H (34-104) U/L Albumin 3.7 (3.4-5.0) gm/dl Urine 04/18/24 Range/Units 15:44 Urine Color Yellow Urine Appearance Cloudy A (Clear) Urine pH 8.5 H (4.5-7.5) Ur Specific [place] 1.019 (1.000-1.030) Urine Protein Trace H (Negative) Urine Glucose (UA) Negative (Negative) Medications Administered Home Medications Medication Instructions Recorded Confirmed Last Taken Naloxone 4 Mg/0.1ml 1 spray intranasal (ALT) 01/29/24 04/18/24 Unknown DIRECTED PRN opiod od Sterile Water For Irrigation 1 ea NA BID 01/29/24 04/18/24 Unknown apixaban 5 mg tablet (Eliquis) 5 mg PO AMHS 01/29/24 04/18/24 Unknown bisacodyl 10 mg rectal suppository 10 mg RI AMPM 01/29/24 04/18/24 Unknown budesonide-formoterol HFA 160 2 puff inhalation AMHS 01/29/24 04/18/24 Unknown mcg-4.5 mcg/actuation aerosol inhaler celecoxib 200 mg capsule 200 mg PO DAILY PRN Pain 01/29/24 04/18/24 Unknown collagenase clostridium histo. 250 1 applic topical DAILY 01/29/24 04/18/24 Unknown unit/gram topical ointment docusate sodium 100 mg capsule 100 mg PO BID PRN Constipation 01/29/24 04/18/24 Unknown duloxetine 60 mg capsule,delayed 60 mg PO QAM 01/29/24 04/18/24 Unknown release sprinkle ferrous sulfate 325 mg (65 mg 325 mg PO QDB 01/29/24 04/18/24 Unknown iron) tablet gabapentin 100 mg capsule 100 mg PO TID 01/29/24 04/18/24 Unknown hydroxyzine HCl 25 mg tablet 25 mg PO DAILY PRN Anxiety 01/29/24 04/18/24 Unknown lactulose 20 gram/30 mL oral 20 g PO TID 01/29/24 04/18/24 Unknown solution lidocaine 5 % topical patch 1 patch topical DAILY PRN Pain 01/29/24 04/18/24 Unknown oxybutynin chloride 10 mg 10 mg PO QAM 01/29/24 04/18/24 Unknown tablet,extended release 24 hr sennosides 8.6 mg-docusate sodium 2 tab-cap PO HS 01/29/24 04/18/24 Unknown 50 mg tablet (Senokot-S) simethicone 80 mg chewable tablet 80 mg PO TID 01/29/24 04/18/24 Unknown sodium hypochlorite 0.25 % 1 irrig topical BID 01/29/24 04/18/24 Unknown solution (Dakin's Solution) tiotropium bromide 2.5 2 puff inhalation QAM 01/29/24 04/18/24 Unknown mcg/actuation mist for inhalation (Spiriva Respimat) baclofen 20 mg tablet 20 mg PO TID PRN spasms #60 tabs 02/01/24 04/18/24 04/18/24 ascorbic acid (vitamin C) 500 mg 500 mg PO QAM 03/04/24 04/18/24 Unknown tablet (Vitamin C) famotidine 20 mg tablet 20 mg PO AMHS 03/04/24 04/18/24 Unknown melatonin 3 mg capsule 3 mg PO HS 03/04/24 04/18/24 Unknown pediatric multivitamin 1 tab PO DAILY 03/04/24 04/18/24 Unknown L.acidop,casei,lactis,rham-B.lact,corinna 1 cap PO DAILY #5 caps 04/01/24 04/18/24 Unknown 625 mg (10 billion cell) capsule (Advanced Probiotic) midodrine 10 mg tablet 10 mg PO TID PRN Hypotension #30 04/01/24 04/18/24 Unknown tabs ciprofloxacin HCl 500 mg tablet 500 mg PO BID 7 days #14 tabs 04/15/24 04/18/24 Unknown (Cipro) Active Medications Generic Name Dose Route Start Last Admin Trade Name Freq PRN Reason Stop Dose Admin Apixaban 5 mg 04/18/24 21:00 04/18/24 20:35 Apixaban 5 Mg Tablet PO 05/18/24 20:59 5 mg AMHS ROSALES Administration Bisacodyl 10 mg 04/18/24 18:40 04/18/24 20:33 Bisacodyl 10 Mg Supp RI 05/18/24 18:39 Not Given BID ROSALES Famotidine 20 mg 04/18/24 21:00 04/18/24 20:35 Famotidine 20 Mg Tab PO 05/18/24 20:59 20 mg BID ROSALES Administration Gabapentin 100 mg 04/18/24 21:00 04/18/24 20:33 Gabapentin 100 Mg Cap PO 05/18/24 20:59 100 mg TID ROSALES Administration Cefepime HCl 2,000 mg/ Syringe 20 mls @ 5 mls/min 04/18/24 23:30 04/19/24 00:20 IV 04/28/24 23:29 5 mls/min Q12H ROSALES Administration Protocol Acetaminophen 1,000 mg in 100 mls @ 400 mls/hr 04/18/24 19:36 04/18/24 22:43 Ofirmev IV 04/21/24 19:35 Infused Q8H PRN Infusion Pain or Fever Lactulose 20 gm 04/18/24 21:00 04/18/24 19:29 Lactulose Syrup 20 Gm/30 Ml Udc PO 05/18/24 20:59 Not Given BID ROSALES Melatonin 3 mg 04/18/24 21:00 04/18/24 20:35 Melatonin 3 Mg Tab PO 05/18/24 20:59 3 mg HS ROSALES Administration Senna/Docusate Sodium 2 tab 04/18/24 21:00 04/18/24 19:28 Docusate Sodium/Senna 50/8.6mg Tab PO 05/18/24 20:59 Not Given HS ROSALES Simethicone 80 mg 04/18/24 21:00 04/18/24 20:34 Simethicone 80 Mg Chew PO 05/18/24 20:59 80 mg TID ROSALES Administration Sodium Hypochlorite 1 appln 04/18/24 21:00 04/18/24 20:36 Dakin's Soln 0.25% Half Strength 473ml Btl EXT 05/18/24 20:59 1 appln BID ROSALES Administration
[2024-04-19] MEDS: FERROUS SULFATE 325 MG TAB PO SCH (07:48)
[2024-04-19] MEDS: ASCORBIC ACID 500 MG TAB PO SCH (07:49)
[2024-04-19] MEDS: DULoxetine HCL 60 MG CAP PO SCH (07:52)
[2024-04-19] MEDS: ADVANCED PROBIOTIC 625 MG CAPSULE PO SCH (07:53)
[2024-04-19] MEDS: OXYBUTYNIN CHLORIDE XL 5 MG TABCR PO SCH (07:56)
--- NOTE | 2024-04-19 07:59 | Communication Note ---
Date of Service: April 19, 2024 Patient know hx of bradycardia and labile hypertension was transferred to [facility] for bradycardia and hypotension. Hypotension improved with midodrine but was very labile. SBP ranging from 70's to 200's. Probable autonomic dysreflexia from spinal injury. Drug screen positive for opiates.Was drowsy but improved with narcan. But was having bradycardia with periods of heart rate dropped into 30's and 20's.Ekg sinus bradycardia with heart rate of 43. Was evaluated by ICU and recommended cpap for possible underlying roula but thought from his medications baclofen/opiates. Around 330am patient had brief period of staring and unresponsive episode and nuvia buitrago was called. During the episode his heart rates were ok but Sbp was in 70s and recheck improved to >80. When came back from unresponsive episode he complained of sob but was saturating ok. During the epsiode he was on cpap which was taken off.Patient quickly back to baseline. Discussed with cardiology and recommended midodrine if needed for hypotension and fluids but no dopamine(unless persistent hypotension) at this time as his BP is labile .CT head is ok. Notified am providers.
--- NOTE | 2024-04-19 09:31 | Gastrointestinal Consultation ---
Date of Consultation April 19, 2024 Assessment & Plan (1) Constipation: 48 year old male w/ COPD, chronic diastolic CHF, history of saddle PE on Eliquis, quadriplegia secondary to traumatic cervical spine injury, recurrent UTI secondary to neurogenic bladder with chronic indwelling suprapubic catheter, HCV s/p treatment, chronic anemia baseline hemoglobin 13, chronic sacral decubitus wounds and Osteomyelitis, chronic pain on narcotics, history of MRSA, ongoing tobacco abuse smokes 1 pack a day, ongoing substance abuse states he uses cocaine and methamphetamine admitted abdominal pain, constipation and hematochezia. Imaging has persistently shown constipation and proctitis. His hemoglobin has remained stable overnight without BUN elevation or evidence of active GI bleeding. No acute indication for endoscopic evaluation. OP colonoscopy with his regular GI providers There should be focus on optimizing his bowel function and avoiding constipation. Restart his home bowel regimen of Lactulose, Senna, colace, dulcolax Would add Miralax 1-2 capfuls daily Trend HGB Monitor and document GI output Transfuse PRN Thank you for allowing us to participate in the care of this patient. Please call with any acute changes, questions or concerns. Please see addendum below with additional recommendation from my supervising physician. I spent a total of 60 minutes on the date of service in review of patient's record, and previously obtained information in person and appropriate medical visit, discussion and education of plan, with patient and/or caregiver, placing orders for tests/referral/procedures as medically necessary and documentation of pertinent clinical information in patient's medical records for their visit today. Supervising Physician Co-Signing Physician Notes Patient seen and examined. Case discussed with Gus VASQUEZ. Patient feeling improved after BM and admits he does not always stick to his bowel regimen and gets constipated. Hemodynamically stable and Hgb stable. Rec: Treat bladder per medicine/Uro Continue bowel regimens F/U with his private GI for elective colonoscopy off of anticoagulation. IP GI Service will sign off. 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 Pt was seen and evaluated, chart reviewed. Notes that his abdominal pain/discomfort feels like when he has urinary infections. From a GI standpoint endorses chronic constipation since his injury. Typically uses oral stool softeners daily and suppositories PRN. Notes he normally moves his stool small volume daily. There is report of a blood tinged stool. He is anticoagulated on Eliquis. He had a norovirus infection in March Stool is heme positive HGB 12.3 --> 12.6 --> 13 --> 13.7 CTAP 2023: 1. Wall thickening of the rectum redemonstrated suggestive of a nonspecific proctitis. Findings could be correlated with colonoscopy.2. Chronic postoperative changes of the sacrum and coccyx with findings suggestive of chronic osteomyelitis adjacent to a chronic large sacral decubitus ulcer.3. Nonobstructing bilateral nephrolithiasis with resolution of the previously seen hydronephrosis.4. Suprapubic catheter in place with a decompressed urinary bladder. 6. Additional findings as above. CTAP 2023: Findings are consistent with a nonspecific proctitis. There is moderate fecal retention throughout the proximal colon and this may be on a stercoral basis. Correlate clinically.. There is fluid/debris within the right lower lobe airways. Correlate clinically for evidence of aspiration. Dependent airspace opacities could represent atelectasis versus pneumonia/aspiration pneumonitis, and again clinical correlation will be required. Postsurgical change is seen in the sacrum and coccyx with an overlying wound and surrounding soft tissue thickening. There may be packing material in place. Sclerotic change in the adjacent sacrum site likely represents chronic osteomyelitis. Correlate clinically. Left-sided nephrolithiasis. Allergies Allergy/AdvReac Type Severity Reaction Status Date / Time No Known Allergies Allergy Verified 01/29/24 21:32 Home Medications Medication Instructions Recorded Confirmed Type Naloxone 4 Mg/0.1ml 1 spray intranasal (ALT) 01/29/24 04/18/24 History DIRECTED PRN opiod od Sterile Water For Irrigation 1 ea NA BID 01/29/24 04/18/24 History apixaban 5 mg tablet (Eliquis) 5 mg PO AMHS 01/29/24 04/18/24 History bisacodyl 10 mg rectal suppository 10 mg DE AMPM 01/29/24 04/18/24 History budesonide-formoterol HFA 160 2 puff inhalation AMHS 01/29/24 04/18/24 History mcg-4.5 mcg/actuation aerosol inhaler celecoxib 200 mg capsule 200 mg PO DAILY PRN Pain 01/29/24 04/18/24 History collagenase clostridium histo. 250 1 applic topical DAILY 01/29/24 04/18/24 History unit/gram topical ointment docusate sodium 100 mg capsule 100 mg PO BID PRN Constipation 01/29/24 04/18/24 History duloxetine 60 mg capsule,delayed 60 mg PO QAM 01/29/24 04/18/24 History release sprinkle ferrous sulfate 325 mg (65 mg 325 mg PO QDB 01/29/24 04/18/24 History iron) tablet gabapentin 100 mg capsule 100 mg PO TID 01/29/24 04/18/24 History hydroxyzine HCl 25 mg tablet 25 mg PO DAILY PRN Anxiety 01/29/24 04/18/24 History lactulose 20 gram/30 mL oral 20 g PO TID 01/29/24 04/18/24 History solution lidocaine 5 % topical patch 1 patch topical DAILY PRN Pain 01/29/24 04/18/24 History oxybutynin chloride 10 mg 10 mg PO QAM 01/29/24 04/18/24 History tablet,extended release 24 hr sennosides 8.6 mg-docusate sodium 2 tab-cap PO HS 01/29/24 04/18/24 History 50 mg tablet (Senokot-S) simethicone 80 mg chewable tablet 80 mg PO TID 01/29/24 04/18/24 History sodium hypochlorite 0.25 % 1 irrig topical BID 01/29/24 04/18/24 History solution (Dakin's Solution) tiotropium bromide 2.5 2 puff inhalation QAM 01/29/24 04/18/24 History mcg/actuation mist for inhalation (Spiriva Respimat) baclofen 20 mg tablet 20 mg PO TID PRN spasms #60 tabs 02/01/24 04/18/24 Rx ascorbic acid (vitamin C) 500 mg 500 mg PO QAM 03/04/24 04/18/24 History tablet (Vitamin C) famotidine 20 mg tablet 20 mg PO AMHS 03/04/24 04/18/24 History melatonin 3 mg capsule 3 mg PO HS 03/04/24 04/18/24 History pediatric multivitamin 1 tab PO DAILY 03/04/24 04/18/24 History L.acidop,casei,lactis,rham-B.lact,corinna 1 cap PO DAILY #5 caps 04/01/24 04/18/24 Rx 625 mg (10 billion cell) capsule (Advanced Probiotic) midodrine 10 mg tablet 10 mg PO TID PRN Hypotension #30 04/01/24 04/18/24 Rx tabs ciprofloxacin HCl 500 mg tablet 500 mg PO BID 7 days #14 tabs 04/15/24 04/18/24 Rx (Cipro) Patient History Medical History Aspiration pneumonitis Pneumonia Paraplegia Surgical History No pertinent past surgical history Social History Smoking Status: Current every day smoker Tobacco Type: Cigarettes Cigarettes Per Day: 50-60; Second Hand Exposure: Yes; Do You Dip or Chew Tobacco: Yes; Hx Alcohol Use: Yes Alcohol type: hard liquor Hx Substance Use: Yes Non-Prescribed Medications: Crack / Cocaine and Marijuana Preferred Language: Trinidadian Communication Ability: Effective Water Filterer Required: No Beliefs That Will Affect Care: None Current Living Situation: Alone Current Living Situation Comment: alone with 28/02 home care Feels Safe at Home: Yes Safety Concerns: Feels Safe At This Time Assistive Devices: Hospital Bed, Mechanical Lift, Scooter/Electric Scooter and Other Review of Systems Review of Systems: All other findings negative except as noted in HPI. Physical Exam Constitutional: WD/WN, vitals as above Respiratory: normal respiratory effort, lungs clear to auscultation Cardiovascular: Rate/Rhythm: regular rate and regular rhythm Gastrointestinal (Abdomen): normal bowel sounds, soft, nontender, no hepatosplenomegaly Skin: no rashes, warm and dry Results & Data Vital Signs (Past 12 Hours) Vital Signs Pulse Pulse Resp BP BP Pulse Ox O2 Del Method 04/19/24 08:26 66 18 97/62 L 94 Room Air 04/19/24 04:34 74 127/81 97 Room Air 04/19/24 03:30 92 H 87/71 L 96 BiPAP 04/19/24 03:24 59 L 18 96 04/19/24 01:22 38 L 117/86 04/19/24 01:01 81 149/109 H 04/19/24 00:46 45 L 203/115 H 04/19/24 00:36 43 L 207/117 H 04/19/24 00:16 44 L 180/112 H 04/18/24 23:17 81/57 L 04/18/24 23:09 102/64 04/18/24 23:04 83/49 L 04/18/24 22:56 79/54 L 04/18/24 22:45 69/41 L 04/18/24 22:18 155/108 H 04/18/24 22:01 54 L 04/18/24 21:56 61 20 164/108 H 95 Room Air FiO2 04/19/24 08:26 04/19/24 04:34 04/19/24 03:30 04/19/24 03:24 21 04/19/24 01:22 04/19/24 01:01 04/19/24 00:46 04/19/24 00:36 04/19/24 00:16 04/18/24 23:17 04/18/24 23:09 04/18/24 23:04 04/18/24 22:56 04/18/24 22:45 04/18/24 22:18 04/18/24 22:01 04/18/24 21:56 PG Care Time/CCT Total # of Minutes Spent Total Time Spent with Patient: Total time spent is greater than 50% in coordination of care (as documented) at patient's floor/unit and/or counseling patient: Coding Level of Care Code 33078 INT INP/OBS CARE 2/55MIN Diagnoses Constipation K59.00
[2024-04-19] MEDS: FLUTICASONE/VILANTEROL 200/25MCG 14 PUFFS/INHALER INH SCH (09:45)
[2024-04-19] MEDS: UMECLIDINIUM BROMIDE 62.5MCG/BLISTER 7 PUFFS/INHALER INH SCH (09:45)
[2024-04-19] MEDS: COLLAGENASE OINT 30 GM TUBE TOP SCH (09:45)
[2024-04-19] MEDS: ONDANSETRON INJ 2 MG/ML 2 ML VIAL IV PRN (10:59)
[2024-04-19] MEDS: BACLOFEN 20 MG TAB PO PRN (11:31)
--- NOTE | 2024-04-19 12:22 | Cardiology Consultation ---
Date of Consultation April 19, 2024 Assessment & Plan (1) Autonomic dysreflexia: (2) Quadriplegia: (3) Complicated urinary tract infection: Plan 48-year-old male with known quadriplegia/tetraplegia following traumatic spinal injury. Neurogenic bladder and chronic sacral pain. Admitted with abdominal pain and possible complicated urinary tract infection. Last evening variability in blood pressure as well as heart rate with transient symptomatic bradycardia Similar events in the past with acute hospitalizations, illnesses No cardiac recommendations but treat underlying medical issues and maintain telemetry until hemodynamically stable No indications for pacemaker or change in medications from cardiac standpoint History of Present Illness Reason for Consultation: Labile hypertension, bradycardia Requesting Physician: Dr. Toro Attending Physician: Keyla Segovia MD History of Present Illness Patient is a 48-year-old male without prior cardiac history but with complex underlying issues which include 1. Tetraplegia following traumatic spinal injury 2. Neurogenic bladder with indwelling suprapubic Sanchez 3. Chronic sacral wounds 4. Chronic obstructive lung disease with ongoing tobacco use 5. Polysubstance drug abuse 6. Prior pulmonary embolus on chronic anticoagulation Patient presented this admission due to complaints of abdominal pain and discomfort. During in-hospital management patient noted bleeding with markedly labile heart rate and blood pressures Past history of similar episodes consistent with autonomic dysreflexia during past hospitalizations Heart rate and blood pressure now back at baseline today Telemetry reviewed with episode of extended bradycardia and at 30 bpm. No profound pauses Baseline EKG normal with sinus bradycardia during acute event Allergies Allergy/AdvReac Type Severity Reaction Status Date / Time No Known Allergies Allergy Verified 01/29/24 21:32 Home Medications Medication Instructions Recorded Confirmed Type Naloxone 4 Mg/0.1ml 1 spray intranasal (ALT) 01/29/24 04/18/24 History DIRECTED PRN opiod od Sterile Water For Irrigation 1 ea NA BID 01/29/24 04/18/24 History apixaban 5 mg tablet (Eliquis) 5 mg PO AMHS 01/29/24 04/18/24 History bisacodyl 10 mg rectal suppository 10 mg [place] AMPM 01/29/24 04/18/24 History budesonide-formoterol HFA 160 2 puff inhalation AMHS 01/29/24 04/18/24 History mcg-4.5 mcg/actuation aerosol inhaler celecoxib 200 mg capsule 200 mg PO DAILY PRN Pain 01/29/24 04/18/24 History collagenase clostridium histo. 250 1 applic topical DAILY 01/29/24 04/18/24 History unit/gram topical ointment docusate sodium 100 mg capsule 100 mg PO BID PRN Constipation 01/29/24 04/18/24 History duloxetine 60 mg capsule,delayed 60 mg PO QAM 01/29/24 04/18/24 History release sprinkle ferrous sulfate 325 mg (65 mg 325 mg PO QDB 01/29/24 04/18/24 History iron) tablet gabapentin 100 mg capsule 100 mg PO TID 01/29/24 04/18/24 History hydroxyzine HCl 25 mg tablet 25 mg PO DAILY PRN Anxiety 01/29/24 04/18/24 History lactulose 20 gram/30 mL oral 20 g PO TID 01/29/24 04/18/24 History solution lidocaine 5 % topical patch 1 patch topical DAILY PRN Pain 01/29/24 04/18/24 History oxybutynin chloride 10 mg 10 mg PO QAM 01/29/24 04/18/24 History tablet,extended release 24 hr sennosides 8.6 mg-docusate sodium 2 tab-cap PO HS 01/29/24 04/18/24 History 50 mg tablet (Senokot-S) simethicone 80 mg chewable tablet 80 mg PO TID 01/29/24 04/18/24 History sodium hypochlorite 0.25 % 1 irrig topical BID 01/29/24 04/18/24 History solution (Dakin's Solution) tiotropium bromide 2.5 2 puff inhalation QAM 01/29/24 04/18/24 History mcg/actuation mist for inhalation (Spiriva Respimat) baclofen 20 mg tablet 20 mg PO TID PRN spasms #60 tabs 02/01/24 04/18/24 Rx ascorbic acid (vitamin C) 500 mg 500 mg PO QAM 03/04/24 04/18/24 History tablet (Vitamin C) famotidine 20 mg tablet 20 mg PO AMHS 03/04/24 04/18/24 History melatonin 3 mg capsule 3 mg PO HS 03/04/24 04/18/24 History pediatric multivitamin 1 tab PO DAILY 03/04/24 04/18/24 History L.acidop,casei,lactis,rham-B.lact,corinna 1 cap PO DAILY #5 caps 04/01/24 04/18/24 Rx 625 mg (10 billion cell) capsule (Advanced Probiotic) midodrine 10 mg tablet 10 mg PO TID PRN Hypotension #30 04/01/24 04/18/24 Rx tabs ciprofloxacin HCl 500 mg tablet 500 mg PO BID 7 days #14 tabs 04/15/24 04/18/24 Rx (Cipro) Patient History Medical History Aspiration pneumonitis Pneumonia Paraplegia Surgical History No pertinent past surgical history Social History Smoking Status: Current every day smoker Tobacco Type: Cigarettes Cigarettes Per Day: 50-60; Second Hand Exposure: Yes; Do You Dip or Chew Tobacco: Yes; Hx Alcohol Use: Yes Alcohol type: hard liquor Hx Substance Use: Yes Non-Prescribed Medications: Crack / Cocaine and Marijuana Preferred Language: Persian Communication Ability: Effective Redevelopment Manager Required: No Beliefs That Will Affect Care: None Current Living Situation: Alone Current Living Situation Comment: alone with 28/02 home care Feels Safe at Home: Yes Assistive Devices: Hospital Bed, Mechanical Lift, Scooter/Electric Scooter and Other Review of Systems Review of Systems: All systems reviewed & are unremarkable except as noted in HPI & below Physical Exam Constitutional: + ill appearing (, Chronic); no acute di stress ENMT: external ear and nose normal, oropharynx normal Neck: trachea midline, no thyromegaly Respiratory: normal respiratory effort, lungs clear to auscultation Cardiovascular: Rate/Rhythm: regular rate and regular rhythm Heart Sounds: normal S1 and normal S2; no murmur Vessels: no JVD Extremities: no edema Results & Data Vital Signs (Past 12 Hours) Vital Signs Pulse Pulse Resp BP Pulse Ox O2 Del Method FiO2 04/19/24 11:47 73 21 117/79 95 Room Air 04/19/24 10:08 67 111/77 04/19/24 08:26 66 18 97/62 L 94 Room Air 04/19/24 08:00 52 L 04/19/24 04:34 74 127/81 97 Room Air 04/19/24 03:30 92 H 87/71 L 96 BiPAP 04/19/24 03:24 59 L 18 96 21 04/19/24 01:22 38 L 117/86 04/19/24 01:01 81 149/109 H 04/19/24 00:46 45 L 203/115 H 04/19/24 00:36 43 L 207/117 H Laboratory Results Laboratory Results - last 24 hr 04/18/24 04/18/24 04/18/24 11:58 15:44 23:57 WBC RBC Hgb Hct MCV MCH MCHC RDW Std Deviation RDW Coeff of Adelia Plt Count MPV Sodium 139 Potassium 4.0 Chloride 106 Carbon Dioxide 27 Anion Gap 6 BUN 11 Creatinine 0.52 L Est Cr Clr Drug Dosing Not Reportable Est GFR ( Amer) 147.2 Est GFR (Non-Af Amer) 127.0 BUN/Creatinine Ratio 21.2 H Glucose 104 H POC Glucose Lactate Calcium 8.9 Total Bilirubin 0.3 AST 16 ALT 6 L Alkaline Phosphatase 105 H Troponin I High Sens Total Protein 6.4 Albumin 3.7 Globulin 2.7 Albumin/Globulin Ratio 1.4 Lipase 12 Urine Color Yellow Urine Appearance Cloudy A Urine pH 8.5 H Ur Specific [place] 1.019 Urine Protein Trace H Urine Glucose (UA) Negative Urine Ketones Negative Urine Blood 1+ H Urine Nitrite Negative Urine Bilirubin Negative Urine Urobilinogen Negative Ur Leukocyte Esterase 2+ H Urine WBC (Auto) >50 H Urine RBC (Auto) 11-20 H U Hyaline Cast (Auto) 0-2 U Epithel Cells (Auto) 0-2 Urine Bacteria (Auto) None Seen Calcium Oxalate Crystal Present A Amorphous Sediment Present A Stool Occult Bld Scrn Positive A Urine Opiates Screen Pos H U Codeine Confrm GC/MS Pending Ur Morphine (GC/MS) Pending Ur Hydrocodone (GC/MS) Pending Ur Norhydrocodone Pending Ur Noroxycodone Pending Urine Oxycodone (GC/MS) Pending U Oxymorphone GC/MS Pending Ur Methadone, Qual Neg Ur Hydromorphone (GC/MS) Pending Urine Fentanyl Screen Neg Urine Barbiturates Neg Ur Phencyclidine (PCP) Neg U Amphetamin/Meth Scrn Neg MDMA (Ecstasy) Screen Neg U Benzodiazepines Scrn Neg Ur Cocaine Metabolite Neg U Marijuana (THC) Screen Pos H U Marijuana THC Carboxy Pending Drug Screen Comment Pending Lyme Disease Screen 04/19/24 04/19/24 04/19/24 03:46 04:02 04:04 WBC 11.91 H RBC 5.03 Hgb 13.7 L Hct 41.4 L MCV 82.3 MCH 27.2 MCHC 33.1 RDW Std Deviation 56.4 H RDW Coeff of Adelia 19.3 H Plt Count 259 MPV 10.2 Sodium 138 Potassium 3.9 Chloride 109 H Carbon Dioxide 21 Anion Gap 8 BUN 11 Creatinine 0.55 L Est Cr Clr Drug Dosing 185.1 Est GFR ( Amer) 143.8 Est GFR (Non-Af Amer) 124.1 BUN/Creatinine Ratio 20.0 Glucose 119 H POC Glucose 119 H Lactate 1.5 Calcium 9.3 Total Bilirubin AST ALT Alkaline Phosphatase Troponin I High Sens 12.3 Total Protein Albumin Globulin Albumin/Globulin Ratio Lipase Urine Color Urine Appearance Urine pH Ur Specific [place] Urine Protein Urine Glucose (UA) Urine Ketones Urine Blood Urine Nitrite Urine Bilirubin Urine Urobilinogen Ur Leukocyte Esterase Urine WBC (Auto) Urine RBC (Auto) U Hyaline Cast (Auto) U Epithel Cells (Auto) Urine Bacteria (Auto) Calcium Oxalate Crystal Amorphous Sediment Stool Occult Bld Scrn Urine Opiates Screen U Codeine Confrm GC/MS Ur Morphine (GC/MS) Ur Hydrocodone (GC/MS) Ur Norhydrocodone Ur Noroxycodone Urine Oxycodone (GC/MS) U Oxymorphone GC/MS Ur Methadone, Qual Ur Hydromorphone (GC/MS) Urine Fentanyl Screen Urine Barbiturates Ur Phencyclidine (PCP) U Amphetamin/Meth Scrn MDMA (Ecstasy) Screen U Benzodiazepines Scrn Ur Cocaine Metabolite U Marijuana (THC) Screen U Marijuana THC Carboxy Drug Screen Comment Lyme Disease Screen Negative Diagnostic Findings Echocardiogram 10/27/2023, limited study due to imaging windows Left Ventricle The qualitative LV ejection fraction is 55-59% (normal). The left ventricular cavity size is normal. The LV wall thickness is mildly increased (concentric). Left Ventricular Wall Motion The left ventricular wall motion is normal. Right Ventricle The right ventricular systolic function is qualitatively normal. The right ventricle is inadequately visualized. Atria The left atrium is normal sized. The right atrial size is normal. Diastolic Function The left ventricular diastolic function is mildly abnormal (grade I). Aortic Valve Aortic stenosis is absent. There is no significant aortic regurgitation. Mitral Valve Mitral stenosis is absent. Significant mitral regurgitation is absent. Tricuspid Valve Trivial tricuspid regurgitation is present. The signal is inadequate to calculate pulmonary artery systolic pressure. Pulmonary Valve The pulmonary valve is inadequately visualized but the Doppler data is adequate for interpretation.. Pericardium No pericardial effusion is noted. Vessels The proximal ascending aorta is inadequately visualized. The aortic root is normal sized. The proximal nferior vena cava is normal. Hemodynamics Normal IVC size and collapsability with inspiration indicates a normal right atrial pressure of 3 mmHg. Trivial tricuspid regurgitatio
[2024-04-19] MEDS ORDERED: MIDODRINE HCL 2.5 MG TAB PO PRN (13:38)
[2024-04-19] MEDS: MIDODRINE HCL 2.5 MG TAB PO STA ×2 (14:03→18:00)
[2024-04-19] MEDS: BACLOFEN 20 MG TAB PO SCH (14:07)
--- NOTE | 2024-04-19 14:33 | Electrocardiogram Report ---
Test Reason : Blood Pressure : */* mmHG Vent. Rate : 43 BPM Atrial Rate : 43 BPM P-R Int : 174 ms QRS Dur : 90 ms QT Int : 490 ms P-R-T Axes : 51 32 55 degrees QTcB Int : 414 ms Marked sinus bradycardia Minimal voltage criteria for LVH, may be normal variant Abnormal ECG When compared with ECG of 28-Mar-2024 19:38, Vent. rate has decreased by 28 bpm T wave inversion no longer evident in Anterior leads QT has shortened Confirmed by Toi Wright ([id number]) on 04/19/2024 2:33:14 PM Referred By: REFERRED SELF Confirmed By: Toi Wright
[2024-04-19] MEDS: MIDODRINE HCL 2.5 MG TAB PO SCH (16:25)
[2024-04-19] MEDS: SODIUM CHLORIDE 0.9% 500 ML IV ONE (17:47)
[2024-04-19] MEDS: traMADol HCL 50 MG TABLET PO STA (22:05)
[2024-04-20 06:35] LABS: Hematocrit (blood only) 37.6 % (42.0-52.0); Hemoglobin 11.7 g/dl (14.0-18.0); Mean Corpuscular Hemoglobin 26.4 pg (25.0-34.0); Mean Corpuscular Hgb Conc 31.1 g/dL (32.0-36.0); Mean Corpuscular Volume 84.7 fL (80.0-100.0); Platelet Count 204 K/uL (130-400); RDW Coefficient of Variation 19.4 % (11.5-14.5); RDW Standard Deviation 60.1 fL (36.4-46.3); Red Blood Count 4.44 M/uL (4.70-6.10); White Blood Count 6.23 K/ul (4.8-10.8)
[2024-04-20 06:51] LABS: Anion Gap 6 (3-11); BUN Creatinine Ratio 18.8 (10-20); Blood Urea Nitrogen 9 mg/dl (6-23); Carbon Dioxide 25 mmol/L (21-32); Chloride 107 mmol/L (98-107); Creatinine Clr Calc Pharmacy 210.9 ml/min; Est GFR (African American) > 150.0 ml/min; Est GFR (Non-African American) 131.2 ml/min; Glucose 100 mg/dl (70-99(Fasting)); Phosphorus 3.2 mg/dl (2.5-4.9); Potassium 3.9 mmol/L (3.5-5.1); Sodium 138 mmol/L (136-145)
[2024-04-20] MEDS: MIDODRINE HCL 2.5 MG TAB PO SCH ×2 (07:32→14:02)
--- NOTE | 2024-04-20 16:09 | Hospitalist Progress Note ---
Date of Service April 20, 2024 Assessment & Plan (1) Abdominal pain: (2) Constipation: (3) Chronic pain: (4) Suprapubic catheter: (5) Chronic osteomyelitis of sacrum: (6) Sacral decubitus ulcer, stage IV: Plan: Mr. 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 Patient reports not having his bowel regimen refilled as he does not like his PCP so has not followed up for refills. He states abdominal pain is improved. Patient with more stable pressures on scheduled midodrine Discussed adding tele monitor. Plan for dispo in am #Acute on Chronic hypotension #Liable BP iso autonomic dysfunction Home midodrine often sends BP into 200s Patient reports he is always on 10mg since it started Advised not to lay supine while on midodrine Start 2.5mg TID scheduled, seems to work well #History asymptomatic episodic bradycardia Monitor on telemetry Previously advised to have outpatient Zio monitor #Abnormal UA #H/O neurogenic bladder with chronic indwelling suprapubic catheter #H/O nephrolithiasis UA without bacteria, always active compared to prior denies sx suggestive of infection; however, given recent issues with bp will cover empirically Continue cefepime until culture results #Abdominal pain resolved #Constipation Afebrile, no leukocytosis, normal lipase, LFTs unremarkable KUB: no obstruction, +stool 04/15/24 UA likely contamination and not UTI. If UA positive will add antibiotics CT abd/pelvis 04/15/24: Wall thickening of the rectum remonstrated suggestive of a nonspecific proctitis. Chronic postoperative changes of the sacrum and coccyx with findings suggestive of chronic osteomyelitis adjacent to a chronic large sacral decubitus ulcer. Nonobstructing bilateral nephrolithiasis with resolution of the previously seen hydronephrosis.Suprapubic catheter in place with a decompressed urinary bladder. Renal US stable No need for further imaging GI consulted, reviewed recommendations -No acute indication for endoscopic evaluation. -OP colonoscopy with his regular GI providers -continue his home bowel regimen of Lactulose, Senna, colace, dulcolax - Would add Miralax 1-2 capfuls daily Trend HGB Monitor and document GI output #Chronic sacral decubitus ulcer stage IV #Chronic osteomyelitis Does not appear acutely infected Wound nurse consult Air mattress #COPD #Tobacco use disorder No signs of acute exacerbation Continue home inhalers #Substance use disorder PDMP reviewed and not filled since 01/2024. Will attempt to avoid narcotics if able Urine drug screen opioid positive #Quadriplegic secondary to traumatic cervical injury #Functional disability No acute issues, no motor sensation intact Fall precautions #H/O PE Anticoagulated on Eliquis Continue Eliquis #H/O HCV Completed treatment per record #Mood disorder Continue home medications DVTppx eliquis Dispo likely 1 -2 days Admission and Anticipated Discharge Date Admission Date: April 18, 2024 Subjective patient fearful of heart rate--discuss chronicity and opioid cessation at home Patient reports feeling unsafe to go home. Discussed one night without monitor to ease concerns Physical Exam Constitutional: WD/WN, vitals as above Respiratory: normal respiratory effort, lungs clear to auscultation Cardiovascular: RRR, no murmur, no edema Results & Data Results & Data Vital Signs (Past 12 Hours) Vital Signs Temp Pulse Pulse Pulse Resp BP BP 04/20/24 14:55 36.7 C 58 L 20 111/70 04/20/24 14:53 36.4 C L 68 54 L 20 133/80 104/63 04/20/24 11:59 36.4 C L 54 L 20 133/80 04/20/24 09:00 04/20/24 08:37 36.4 C 60 20 119/77 04/20/24 08:00 50 L 04/20/24 06:30 47 L 147/103 H 04/20/24 05:00 52 L 107/65 Pulse Ox O2 Del Method 04/20/24 14:55 97 Room Air 04/20/24 14:53 96 04/20/24 11:59 96 Room Air 04/20/24 09:00 Room Air 04/20/24 08:37 96 Room Air 04/20/24 08:00 04/20/24 06:30 04/20/24 05:00 Laboratory Results Short CBC 04/20/24 Range/Units 05:58 WBC 6.23 (4.8-10.8) K/ul Hgb 11.7 L (14.0-18.0) g/dl Hct 37.6 L (42.0-52.0) % Plt Count 204 (130-400) K/uL BMP 04/20/24 05:58 Sodium 138 Potassium 3.9 Chloride 107 Carbon Dioxide 25 BUN 9 Creatinine 0.48 L Glucose 100 H Calcium 9.0 Medications Administered Home Medications Medication Instructions Recorded Confirmed Last Taken Naloxone 4 Mg/0.1ml 1 spray intranasal (ALT) 01/29/24 04/18/24 Unknown DIRECTED PRN opiod od Sterile Water For Irrigation 1 ea NA BID 01/29/24 04/18/24 Unknown apixaban 5 mg tablet (Eliquis) 5 mg PO AMHS 01/29/24 04/18/24 Unknown budesonide-formoterol HFA 160 2 puff inhalation AMHS 01/29/24 04/18/24 Unknown mcg-4.5 mcg/actuation aerosol inhaler celecoxib 200 mg capsule 200 mg PO DAILY PRN Pain 01/29/24 04/18/24 Unknown collagenase clostridium histo. 250 1 applic topical DAILY 01/29/24 04/18/24 Unknown unit/gram topical ointment duloxetine 60 mg capsule,delayed 60 mg PO QAM 01/29/24 04/18/24 Unknown release sprinkle ferrous sulfate 325 mg (65 mg 325 mg PO QDB 01/29/24 04/18/24 Unknown iron) tablet gabapentin 100 mg capsule 100 mg PO TID 01/29/24 04/18/24 Unknown hydroxyzine HCl 25 mg tablet 25 mg PO DAILY PRN Anxiety 01/29/24 04/18/24 Unknown lidocaine 5 % topical patch 1 patch topical DAILY PRN Pain 01/29/24 04/18/24 Unknown oxybutynin chloride 10 mg 10 mg PO QAM 01/29/24 04/18/24 Unknown tablet,extended release 24 hr sennosides 8.6 mg-docusate sodium 2 tab-cap PO HS 01/29/24 04/18/24 Unknown 50 mg tablet (Senokot-S) simethicone 80 mg chewable tablet 80 mg PO TID 01/29/24 04/18/24 Unknown sodium hypochlorite 0.25 % 1 irrig topical BID 01/29/24 04/18/24 Unknown solution (Dakin's Solution) tiotropium bromide 2.5 2 puff inhalation QAM 01/29/24 04/18/24 Unknown mcg/actuation mist for inhalation (Spiriva Respimat) baclofen 20 mg tablet 20 mg PO TID PRN spasms #60 tabs 02/01/24 04/18/24 04/18/24 ascorbic acid (vitamin C) 500 mg 500 mg PO QAM 03/04/24 04/18/24 Unknown tablet (Vitamin C) famotidine 20 mg tablet 20 mg PO AMHS 03/04/24 04/18/24 Unknown melatonin 3 mg capsule 3 mg PO HS 03/04/24 04/18/24 Unknown pediatric multivitamin 1 tab PO DAILY 03/04/24 04/18/24 Unknown L.acidop,casei,lactis,rham-B.lact,corinna 1 cap PO DAILY #5 caps 04/01/24 04/18/24 Unknown 625 mg (10 billion cell) capsule (Advanced Probiotic) bisacodyl 10 mg rectal suppository 10 mg [place] AMPM 30 days #60 ea 04/20/24 Unknown docusate sodium 100 mg capsule 100 mg PO BID PRN Constipation #60 04/20/24 Unknown caps lactulose 20 gram/30 mL oral 20 g (30 mL) PO TID 30 days #2,700 04/20/24 Unknown solution mL midodrine 2.5 mg tablet 2.5 mg PO TID@0700,1200,1700 30 04/20/24 Unknown days #90 tabs Active Medications Generic Name Dose Route Start Last Admin Trade Name Freq PRN Reason Stop Dose Admin Apixaban 5 mg 04/18/24 21:00 04/20/24 09:07 Apixaban 5 Mg Tablet PO 05/18/24 20:59 5 mg AMHS ROSALES Administration Ascorbic Acid 500 mg 04/19/24 09:00 04/20/24 09:07 Ascorbic Acid 500 Mg Tab PO 05/19/24 08:59 500 mg QAM ROSALES Administration Baclofen 20 mg 04/19/24 14:00 04/20/24 14:03 Baclofen 20 Mg Tab PO 05/19/24 13:59 20 mg Q8H ROSALES Administration Bisacodyl 10 mg 04/18/24 18:40 04/20/24 09:08 Bisacodyl 10 Mg Supp [place] 05/18/24 18:39 10 mg BID ROSALES Administration Collagenase 1 appln 04/19/24 09:00 04/20/24 09:08 Collagenase Oint 30 Gm Tube TOP 05/19/24 08:59 1 appln DAILY ROSALES Administration Duloxetine HCl 60 mg 04/19/24 09:00 04/20/24 09:07 Duloxetine Hcl 60 Mg Cap PO 05/19/24 08:59 60 mg QAM ROSALES Administration Famotidine 20 mg 04/18/24 21:00 04/20/24 09:07 Famotidine 20 Mg Tab PO 05/18/24 20:59 20 mg BID ROSALES Administration Ferrous Sulfate 325 mg 04/19/24 07:30 04/20/24 09:08 Ferrous Sulfate 325 Mg Tab PO 05/19/24 07:29 325 mg QDB ROSALES Administration Fluticasone/Vilanterol 1 puffs 04/19/24 09:00 04/20/24 09:08 Fluticasone/Vilanterol 200/25mcg 14 Puffs/Inhaler INH 05/19/24 08:59 1 puffs DAILY ROSALES Administration Protocol Gabapentin 100 mg 04/18/24 21:00 04/20/24 14:04 Gabapentin 100 Mg Cap PO 05/18/24 20:59 100 mg TID ROSALES Administration Acetaminophen 1,000 mg in 100 mls @ 400 mls/hr 04/18/24 19:36 04/18/24 22:43 Ofirmev IV 04/21/24 19:35 Infused Q8H PRN Infusion Pain or Fever Lactobacillus Acidophilus 625 mg 04/19/24 09:00 04/20/24 09:07 Advanced Probiotic 625 Mg Capsule PO 05/19/24 08:59 625 mg DAILY ROSALES Administration Lactulose 20 gm 04/18/24 21:00 04/20/24 09:08 Lactulose Syrup 20 Gm/30 Ml Udc PO 05/18/24 20:59 20 gm BID ROSALES Administration Melatonin 3 mg 04/18/24 21:00 04/19/24 22:04 Melatonin 3 Mg Tab PO 05/18/24 20:59 3 mg HS ROSALES Administration Midodrine 2.5 mg 04/20/24 12:00 04/20/24 14:02 Midodrine Hcl 2.5 Mg Tab PO 05/20/24 11:59 Not Given TID@0700,1200,1700 ROSALES Ondansetron HCl 4 mg 04/18/24 17:20 04/20/24 12:38 Ondansetron Inj 2 Mg/Ml 2 Ml Vial IV 05/18/24 17:19 4 mg Q6H PRN Administration Nausea Oxybutynin Chloride 10 mg 04/19/24 09:00 04/20/24 09:08 Oxybutynin Chloride Xl 5 Mg Tabcr PO 05/19/24 08:59 10 mg QAM ROSALES Administration Senna/Docusate Sodium 2 tab 04/18/24 21:00 04/19/24 21:00 Docusate Sodium/Senna 50/8.6mg Tab PO 05/18/24 20:59 2 tab HS ROSALES Administration Simethicone 80 mg 04/18/24 21:00 04/20/24 14:04 Simethicone 80 Mg Chew PO 05/18/24 20:59 80 mg TID ROSALES Administration Sodium Hypochlorite 1 appln 04/18/24 21:00 04/20/24 09:09 Dakin's Soln 0.25% Half Strength 473ml Btl EXT 05/18/24 20:59 1 appln BID ROSALES Administration Umeclidinium [place] 1 puffs 04/19/24 09:00 04/20/24 09:08 Umeclidinium [place] 62.5mcg/Blister 7 Puffs/Inhaler INH 05/19/24 08:59 1 puffs DAILY ROSALES Administration
[2024-04-21 07:41] VITALS: RESP 20; TEMP 97.7; O2SAT 93
--- NOTE | 2024-04-21 08:07 | Discharge Summary ---
Discharge Summary Date of Service April 21, 2024 Principal Dx & Hospital Course #1 = Principal Diagnosis (1) Abdominal pain: (2) Constipation: (3) Chronic pain: (4) Suprapubic catheter: (5) Chronic osteomyelitis of sacrum: (6) Sacral decubitus ulcer, stage IV: Mr. 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 Patient reports not having his bowel regimen refilled as he does not like his PCP so has not followed up for refills. He states abdominal pain is improved with bowel regimen reinstated. Patient remained with stable pressures on scheduled low dose midodrine. Discussed that patient does not require pacemaker. Patient is asymptomatic and that patient has autonomic dysreflexia contributing to the fluctuating pressures and heart rates. On day of discharge, patient eager to get home to his routine. Explained that refill for lactulose provided and script for midodrine placed. Patient verbalized understanding. Emphasized importance of substance avoidance given low resting heart rates. Additionally encouraged patient to please follow up with PCP. #Acute on Chronic hypotension #Liable BP iso autonomic dysfunction Home midodrine often sends BP into 200s Patient reports he is always on 10mg since it started Advised not to lay supine while on midodrine Continue Midrodrine 2.5mg TID scheduled #History asymptomatic episodic bradycardia Monitor on telemetry Previously advised to have outpatient Zio monitor #Abnormal UA #H/O neurogenic bladder with chronic indwelling suprapubic catheter #H/O nephrolithiasis UA without bacteria, always active compared to prior denies sx suggestive of infection; however, given recent issues with bp will cover empirically Continue cefepime until culture results #Abdominal pain resolved #Constipation Afebrile, no leukocytosis, normal lipase, LFTs unremarkable KUB: no obstruction, +stool 04/15/24 UA likely contamination and not UTI. If UA positive will add antibiotics CT abd/pelvis 04/15/24: Wall thickening of the rectum remonstrated suggestive of a nonspecific proctitis. Chronic postoperative changes of the sacrum and coccyx with findings suggestive of chronic osteomyelitis adjacent to a chronic large sacral decubitus ulcer. Nonobstructing bilateral nephrolithiasis with resolution of the previously seen hydronephrosis.Suprapubic catheter in place with a decompressed urinary bladder. Renal US stable No need for further imaging GI consulted, reviewed recommendations -No acute indication for endoscopic evaluation. -OP colonoscopy with his regular GI providers -continue his home bowel regimen of Lactulose, Senna, colace, dulcolax -continueMiralax 1-2 capfuls daily #Chronic sacral decubitus ulcer stage IV #Chronic osteomyelitis Does not appear acutely infected Wound nurse consult Air mattress #COPD #Tobacco use disorder No signs of acute exacerbation Continue home inhalers #Substance use disorder PDMP reviewed and not filled since 01/2024. Will attempt to avoid narcotics if able Urine drug screen opioid positive #Quadriplegic secondary to traumatic cervical injury #Functional disability No acute issues, no motor, sensation intact Fall precautions #H/O PE Anticoagulated on Eliquis Continue Eliquis #H/O HCV Completed treatment per record #Mood disorder Continue home medications Notes For Next Care Provider Medication Changes From Visit Start Midrodrine 2.5mg TID scheduled Discontinue midodrine 10 prn Lactulose prescription refilled Admission HPI Per Admitting Provider Patient is 48-year-old male with PMH COPD, chronic stage IV sacral ulcer with osteomyelitis of sacrum, 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 Per chart review history recurrent hospitalizations with [facility] hospitalization 03/24/2024-04/01/2024 for complicated UTI and possible pyelonephritis, possible sepsis, Urine culture + Pseudomonas, E. coli and was treated with 7-day course IV cefepime as recommended by infectious disease. Had CT abd/pelvis suggestive of distal proctocolitis and has chronic sacral decubitus ulcer and osteomyelitis with wound culture +pseudomonas, and was treated with cefepime as above. Repeat hospitalization on 04/04/2024-04/06/2024 for obstructed suprapubic cath, hypotension, diarrhea, fecal retention in which was norovirus positive. Hypotension improved with IV fluids and midodrine. Urology had exchanged his suprapubic pubic catheter and was draining well. Initially was treated with antibiotics for possible UTI however urine culture negative and was discharged home. [facility] ER visit on 04/15/2024 for abdominal pain in which thought possible UTI and patient was given Cipro and discharged home. Patient returns to ER today with complaints of continued burning sensation at site of suprapubic catheter. He states the catheter is draining and denies noted hematuria. He denies any known fever or chills. States he always feels cold. States having trouble moving bowels. States used to use lactulose however ran out and since not having as regular BM's. Denies nausea or vomiting. Patient reports chronic "all over spasms" and has baclofen to use. He is requesting dose now as he is due for noon dose. Has chronic pain to sacrum from wound that he states doesn't feel any worse. He states in past used pain meds but hasn't had any filled since 01/2024 per my PDMP review. Denies hematochezia, melena, diarrhea, HERNÁNDEZ, dizziness, syncope, CP, SOB, cough, sore throat, rhinorrhea, rashes. Discharge Exam Constitutional WD/WN, vitals as above Respiratory normal respiratory effort, lungs clear to auscultation Cardiovascular RRR, no murmur, no edema Updated Medication List Medication Instructions Recorded Confirmed Type Naloxone 4 Mg/0.1ml 1 spray intranasal (ALT) 01/29/24 04/18/24 History DIRECTED PRN opiod od Sterile Water For Irrigation 1 ea NA BID 01/29/24 04/18/24 History apixaban 5 mg tablet (Eliquis) 5 mg PO AMHS 01/29/24 04/18/24 History budesonide-formoterol HFA 160 2 puff inhalation AMHS 01/29/24 04/18/24 History mcg-4.5 mcg/actuation aerosol inhaler celecoxib 200 mg capsule 200 mg PO DAILY PRN Pain 01/29/24 04/18/24 History collagenase clostridium histo. 250 1 applic topical DAILY 01/29/24 04/18/24 History unit/gram topical ointment duloxetine 60 mg capsule,delayed 60 mg PO QAM 01/29/24 04/18/24 History release sprinkle ferrous sulfate 325 mg (65 mg 325 mg PO QDB 01/29/24 04/18/24 History iron) tablet gabapentin 100 mg capsule 100 mg PO TID 01/29/24 04/18/24 History hydroxyzine HCl 25 mg tablet 25 mg PO DAILY PRN Anxiety 01/29/24 04/18/24 History lidocaine 5 % topical patch 1 patch topical DAILY PRN Pain 01/29/24 04/18/24 History oxybutynin chloride 10 mg 10 mg PO QAM 01/29/24 04/18/24 History tablet,extended release 24 hr sennosides 8.6 mg-docusate sodium 2 tab-cap PO HS 01/29/24 04/18/24 History 50 mg tablet (Senokot-S) simethicone 80 mg chewable tablet 80 mg PO TID 01/29/24 04/18/24 History sodium hypochlorite 0.25 % 1 irrig topical BID 01/29/24 04/18/24 History solution (Dakin's Solution) tiotropium bromide 2.5 2 puff inhalation QAM 01/29/24 04/18/24 History mcg/actuation mist for inhalation (Spiriva Respimat) baclofen 20 mg tablet 20 mg PO TID PRN spasms #60 tabs 02/01/24 04/18/24 Rx ascorbic acid (vitamin C) 500 mg 500 mg PO QAM 03/04/24 04/18/24 History tablet (Vitamin C) famotidine 20 mg tablet 20 mg PO AMHS 03/04/24 04/18/24 History melatonin 3 mg capsule 3 mg PO HS 03/04/24 04/18/24 History pediatric multivitamin 1 tab PO DAILY 03/04/24 04/18/24 History L.acidop,casei,lactis,rham-B.lact,corinna 1 cap PO DAILY #5 caps 04/01/24 04/18/24 Rx 625 mg (10 billion cell) capsule (Advanced Probiotic) bisacodyl 10 mg rectal suppository 10 mg [place] AMPM 30 days #60 ea 04/20/24 Rx docusate sodium 100 mg capsule 100 mg PO BID PRN Constipation #60 04/20/24 Rx caps lactulose 20 gram/30 mL oral 20 g (30 mL) PO TID 30 days #2,700 04/20/24 Rx solution mL midodrine 2.5 mg tablet 2.5 mg PO TID@0700,1200,1700 30 04/20/24 Rx days #90 tabs Hospital Stay Data Consultations 04/18/24 13:01 ED Decision to Admit Stat 04/19/24 08:00 Consult Cardiology Routine Consult Gastroenterology Routine 04/19/24 08:11 Consult Urology Routine Diagnostic Imagining Performed 04/18/24 14:16 US Renal Bladder [US renal/blad retro comp] Urgent 04/18/24 22:16 CT head/brain wo con Urgent Pending Results Patient Have Any Pending Studies at Discharge: No Discharge Instructions Given to Patient (Per Discharging Provider) You were admitted for constipation which resolved with resumption of bowel regimen A prescription for lactulose was ordered Please continue aggressive bowel regimen as previously prescribed. You were noted to have liable blood pressures with noted hypertension on 10mg of midodrine. You were started on low dose schedule midodrine 2.5mg for 7am/upon awakening, Noon, and 5pm( about 4-5 hours before bedtime) Please do not take if blood pressure is greater than 140mmhg on top value. Please do not lay FLAT during the day while on midodrine as it can cause supine (laying flat) hypertension/high blood pressure. You have a slow heart rate at baseline but are not symptomatic there is no need for pacemaker. Total Time Total Time Spent Total Time Spent (In Minutes): 45
[2024-04-21] MEDS: CALCIUM CARBONATE 500 MG CHEWABLE TAB PO STA (09:29)
[2024-04-21 09:51] VITALS: BP 104/63; PULSE 68
[2024-04-21] MEDS: FAMOTIDINE 20MG IV PUSH 20 MG/5 ML SYR IV STA (10:11)
[2024-04-21 16:23] LABS: Codeine Urine NEGATIVE ng/mL (<50); Hydrocodone Urine 2350 ng/mL (<50); Hydromor Urine 578 ng/mL (<50); Marijuana Quant, GCMS Urine 788 ng/mL (<5); Morphine Urine 1260 ng/mL (<50); Norhydrocodone Conf Ur 4340 ng/mL (<50); Noroxycodone Urine 145 ng/mL (<50); Oxycodone Urine NEGATIVE ng/mL (<50); Oxymorph Urine NEGATIVE ng/mL (<50)
== END 2024-04-21 11:49 | disposition home health service (06) | DRG 391 ==
LOC: ED 11:37 → 3E 11:37 → SUATTDRO 14:16 → 3E 16:42 → 2E 21:55 → SUATTDRO 04-20 16:06

== ENCOUNTER 2024-04-22 16:28 | Inpatient (IN) ==
--- NOTE | 2024-04-22 16:41 | Emergency Department Note ---
Impression & Plan Acute UTI ADMIT ED Provider Note HPI: History obtained from patient. 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 Patient states he is also had constipation that has not gotten better despite taking lactulose at home. Patient was just discharged from the hospital yesterday and states that his constipation has not improved much at home with his home bowel regimen. On arrival here to the ED the patient is otherwise alert, he is hemodynamically stable, he appears to be in no acute distress. ROS: - Per HPI Differential Diagnosis: Constipation, electrolyte abnormalities, viral infection to include COVID-19, influenza A, inability to care for self/deconditioning, sepsis, amongst other potential pathologies. *Outpatient medications and allergy history reviewed. 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 Lab work shows a mild leukocytosis 11.32, hemoglobin is normal, platelet count is normal, CMP shows mild hypokalemia 3.1, no evidence of acute kidney injury. No transaminitis. Bilirubin is normal. Urinalysis shows urine nitrite positive and 3+ leukocyte esterase with pyuria, will send for culture and patient will be started on IV ceftriaxone. Patient did not have a bowel movement after magnesium citrate, his abdomen is soft and nontender on my exam. I discussed extensively the above findings with the patient, he appears generally unwell and I feel that he would likely benefit given his multiple comorbidities from admission and likely placement to a nursing facility. Patient stated he would be interested in this option at this time. I therefore did discuss the patient's presentation with the on-call hospitalist, Dr. Toro, the patient was placed for admission in stable condition. Consultants/Discussions held with other healthcare providers: -Hospitalist, Dr. Toro Disposition discussion held by myself with: -Patient Diagnosis: 1. Urinary tract infection, acute 2. Constipation, acute 3. Hypokalemia, acute 4. Failure to thrive at home, acute 5. History of incomplete quadriplegia, chronic Disposition: Admission Rafael Peterson DO Emergency Medicine Past Med/Surg History Problem List (Updated 04/22/24 @ 19:39 by Rafael Peterson DO) Acute UTI (Acute) Autonomic dysreflexia Constipation Complicated urinary tract infection (Acute) Hydronephrosis (Acute) Acute urinary retention (Acute) Leukocytosis (Acute) Complication, blocked suprapubic catheter Hypokalemia (Acute) Hypomagnesemia (Acute) Anemia (Acute) Quadriplegia (Acute) Sacral decubitus ulcer (Acute) Acute UTI (Acute) Hypotension (Acute) Encephalopathy Pneumonia (Acute) Complicated urinary tract infection (Acute Unknown) Change or removal of nonsurgical wound dressing Acute hypoxemic respiratory failure (Acute) Chest pain (Acute) Abdominal pain (Acute) Severe sepsis (Acute) MRSA carrier Pneumonia (Acute) Hypoxic respiratory failure (Acute) 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 Leg wound, right Leg wound, left History of pulmonary embolism Hypoxia (Acute) RSV (respiratory syncytial virus infection) Chronic pain Suprapubic catheter (Acute) Complicated UTI (urinary tract infection) (Acute) Sacral decubitus ulcer, stage IV (Acute) Chronic osteomyelitis of sacrum Medical History Aspiration pneumonitis Pneumonia Paraplegia Surgical History No pertinent past surgical history Social History Smoking Status: Current every day smoker Tobacco Type: Cigarettes Cigarettes Per Day: 50-60; Second Hand Exposure: Yes; Do You Dip or Chew Tobacco: Yes; Hx Alcohol Use: Yes Alcohol type: hard liquor Hx Substance Use: Yes Non-Prescribed Medications: Crack / Cocaine and Marijuana Preferred Language: Turkish Communication Ability: Effective Injury/Safety Hazard Assessment Required: No Beliefs That Will Affect Care: None Current Living Situation: Alone Current Living Situation Comment: alone with 28/02 home care Feels Safe at Home: Yes Assistive Devices: Hospital Bed, Mechanical Lift, Scooter/Electric Scooter and Other Allergies Allergies Allergy/AdvReac Type Severity Reaction Status Date / Time No Known Allergies Allergy Verified 01/29/24 21:32 Home Meds Home Medications Medication Instructions Recorded Confirmed Naloxone 4 Mg/0.1ml 1 spray intranasal (ALT) 01/29/24 04/18/24 DIRECTED PRN opiod od Sterile Water For Irrigation 1 ea NA BID 01/29/24 04/18/24 apixaban 5 mg tablet (Eliquis) 5 mg PO AMHS 01/29/24 04/18/24 budesonide-formoterol HFA 160 2 puff inhalation AMHS 01/29/24 04/18/24 mcg-4.5 mcg/actuation aerosol inhaler celecoxib 200 mg capsule 200 mg PO DAILY PRN Pain 01/29/24 04/18/24 collagenase clostridium histo. 250 1 applic topical DAILY 01/29/24 04/18/24 unit/gram topical ointment duloxetine 60 mg capsule,delayed 60 mg PO QAM 01/29/24 04/18/24 release sprinkle ferrous sulfate 325 mg (65 mg 325 mg PO QDB 01/29/24 04/18/24 iron) tablet gabapentin 100 mg capsule 100 mg PO TID 01/29/24 04/18/24 hydroxyzine HCl 25 mg tablet 25 mg PO DAILY PRN Anxiety 01/29/24 04/18/24 lidocaine 5 % topical patch 1 patch topical DAILY PRN Pain 01/29/24 04/18/24 oxybutynin chloride 10 mg 10 mg PO QAM 01/29/24 04/18/24 tablet,extended release 24 hr sennosides 8.6 mg-docusate sodium 2 tab-cap PO HS 01/29/24 04/18/24 50 mg tablet (Senokot-S) simethicone 80 mg chewable tablet 80 mg PO TID 01/29/24 04/18/24 sodium hypochlorite 0.25 % 1 irrig topical BID 01/29/24 04/18/24 solution (Dakin's Solution) tiotropium bromide 2.5 2 puff inhalation QAM 01/29/24 04/18/24 mcg/actuation mist for inhalation (Spiriva Respimat) ascorbic acid (vitamin C) 500 mg 500 mg PO QAM 03/04/24 04/18/24 tablet (Vitamin C) famotidine 20 mg tablet 20 mg PO AMHS 03/04/24 04/18/24 melatonin 3 mg capsule 3 mg PO HS 03/04/24 04/18/24 pediatric multivitamin 1 tab PO DAILY 03/04/24 04/18/24 Previous Rx's Medication Instructions Recorded baclofen 20 mg tablet 20 mg PO TID PRN spasms #60 tabs 02/01/24 L.acidop,casei,lactis,rham-B.lact,corinna 1 cap PO DAILY #5 caps 04/01/24 625 mg (10 billion cell) capsule (Advanced Probiotic) bisacodyl 10 mg rectal suppository 10 mg CA AMPM 30 days #60 ea 04/20/24 docusate sodium 100 mg capsule 100 mg PO BID PRN Constipation #60 04/20/24 caps lactulose 20 gram/30 mL oral 20 g (30 mL) PO TID 30 days #2,700 04/20/24 solution mL midodrine 2.5 mg tablet 2.5 mg PO TID@0700,1200,1700 30 04/20/24 days #90 tabs Results & Data (ED) Vital Signs Vital Signs - 24 hr 04/22/24 16:32 04/22/24 16:40 04/22/24 17:09 Temperature 36.8 C Temperature Source Oral Pulse Rate 85 61 55 L Pulse Rate [Apical] Pulse Rhythm Regular Regular Pulse Rhythm [Apical] Pulse Strength Normal Pulse Strength [Apical] Respiratory Rate 18 18 Respiratory Effort / Characteristics Non-Labored Spontaneous Respiratory Depth Normal Respiratory Pattern Regular Blood Pressure 145/97 H Blood Pressure [Left Arm] Blood Pressure Mean 113 Blood Pressure Mean [Left Arm] Blood Pressure Position Sitting Blood Pressure Position [Left Arm] Pulse Oximetry 95 96 Oxygen Delivery Method Room Air Room Air Sepsis Recent Fever Within 48 Hours No Sepsis New/Unexplained Change in Mental Status No Sepsis Action Taken by Nursing No Action Required 04/22/24 18:30 Temperature Temperature Source Pulse Rate Pulse Rate [Apical] 66 Pulse Rhythm Pulse Rhythm [Apical] Regular Pulse Strength Pulse Strength [Apical] Normal Respiratory Rate 16 Respiratory Effort / Characteristics Non-Labored Spontaneous Respiratory Depth Normal Respiratory Pattern Regular Blood Pressure Blood Pressure [Left Arm] 156/114 H Blood Pressure Mean Blood Pressure Mean [Left Arm] 128 Blood Pressure Position Blood Pressure Position [Left Arm] Sitting Pulse Oximetry 97 Oxygen Delivery Method Room Air Sepsis Recent Fever Within 48 Hours Sepsis New/Unexplained Change in Mental Status Sepsis Action Taken by Nursing Laboratory Data 04/22/24 17:32 04/22/24 18:19 Lab Results 04/22/24 04/22/24 04/22/24 Range/Units 16:59 17:28 17:32 WBC 11.32 H (4.8-10.8) K/ul RBC 5.64 (4.70-6.10) M/uL Hgb 15.2 (14.0-18.0) g/dl Hct 47.4 (42.0-52.0) % MCV 84.0 (80.0-100.0) fL MCH 27.0 (25.0-34.0) pg MCHC 32.1 (32.0-36.0) g/dL RDW Std Deviation 54.6 H (36.4-46.3) fL RDW Coeff of [place] 18.7 H (11.5-14.5) % Plt Count 282 (130-400) K/uL MPV 9.8 (9.4-12.4) fL Immature Gran % (Auto) 0.3 % Neut % (Auto) 78.0 % Lymph % (Auto) 11.6 % [place] % (Auto) 8.1 % Eos % (Auto) 1.3 % Baso % (Auto) 0.7 % Neut # (Auto) 8.83 H (1.40-6.50) K/uL Lymph # (Auto) 1.31 (1.20-3.40) K/uL [place] # (Auto) 0.92 H (0.11-0.59) K/uL Eos # (Auto) 0.15 (0.00-0.50) K/uL Baso # (Auto) 0.08 (0.00-0.20) K/uL Immature Gran # (Auto) 0.03 (0.01-0.20) K/uL Sodium 137 (136-145) mmol/L Potassium TNP Chloride 102 (98-107) mmol/L Carbon Dioxide 25 (21-32) mmol/L Anion Gap 10 (3-11) BUN 6 (6-23) mg/dl Creatinine 0.49 L (0.6-1.4) mg/dl Est Cr Clr Drug Dosing 208.8 ml/min Est GFR ( Amer) > 150.0 ml/min Est GFR (Non-Af Amer) 130.1 ml/min BUN/Creatinine Ratio 12.2 (10-20) Glucose 106 H (70-99(Fasting)) mg/dl Calcium 9.7 (8.6-10.3) mg/dl Total Bilirubin 0.6 (0.2-1.0) mg/dl AST TNP ALT 8 (7-52) U/L Alkaline Phosphatase 132 H (34-104) U/L Total Protein 7.6 (6.0-8.3) gm/dl Albumin 4.5 (3.4-5.0) gm/dl Globulin 3.1 (2.5-4.0) gm/dl Albumin/Globulin Ratio 1.5 (0.9-2) Lipase 8 L (11-82) U/L Urine Color Yellow Urine Appearance Clear (Clear) Urine pH 7.0 (4.5-7.5) Ur Specific [place] 1.006 (1.000-1.030) Urine Protein Negative (Negative) Urine Glucose (UA) Negative (Negative) Urine Ketones Negative (Negative) Urine Blood 1+ H (Negative) Urine Nitrite Positive A (Negative) Urine Bilirubin Negative (Negative) Urine Urobilinogen Negative (Negative) Ur Leukocyte Esterase 3+ H (Negative) Urine WBC (Auto) 21-50 H (0-5) /hpf Urine RBC (Auto) 11-20 H (0-2) /hpf U Hyaline Cast (Auto) 0-2 (0-2) /lpf U Epithel Cells (Auto) 0-2 (0-2) /hpf Urine Bacteria (Auto) None Seen (None Seen) Urine Yeast Present A (None Prsent) 04/22/24 Range/Units 18:19 WBC (4.8-10.8) K/ul RBC (4.70-6.10) M/uL Hgb (14.0-18.0) g/dl Hct (42.0-52.0) % MCV (80.0-100.0) fL MCH (25.0-34.0) pg MCHC (32.0-36.0) g/dL RDW Std Deviation (36.4-46.3) fL RDW Coeff of [place] (11.5-14.5) % Plt Count (130-400) K/uL MPV (9.4-12.4) fL Immature Gran % (Auto) % Neut % (Auto) % Lymph % (Auto) % [place] % (Auto) % Eos % (Auto) % Baso % (Auto) % Neut # (Auto) (1.40-6.50) K/uL Lymph # (Auto) (1.20-3.40) K/uL [place] # (Auto) (0.11-0.59) K/uL Eos # (Auto) (0.00-0.50) K/uL Baso # (Auto) (0.00-0.20) K/uL Immature Gran # (Auto) (0.01-0.20) K/uL Sodium (136-145) mmol/L Potassium 3.1 L Chloride (98-107) mmol/L Carbon Dioxide (21-32) mmol/L Anion Gap (3-11) BUN (6-23) mg/dl Creatinine (0.6-1.4) mg/dl Est Cr Clr Drug Dosing ml/min Est GFR ( Amer) ml/min Est GFR (Non-Af Amer) ml/min BUN/Creatinine Ratio (10-20) Glucose (70-99(Fasting)) mg/dl Calcium (8.6-10.3) mg/dl Total Bilirubin (0.2-1.0) mg/dl AST 18 ALT (7-52) U/L Alkaline Phosphatase (34-104) U/L Total Protein (6.0-8.3) gm/dl Albumin (3.4-5.0) gm/dl Globulin (2.5-4.0) gm/dl Albumin/Globulin Ratio (0.9-2) Lipase (11-82) U/L Urine Color Urine Appearance (Clear) Urine pH (4.5-7.5) Ur Specific [place] (1.000-1.030) Urine Protein (Negative) Urine Glucose (UA) (Negative) Urine Ketones (Negative) Urine Blood (Negative) Urine Nitrite (Negative) Urine Bilirubin (Negative) Urine Urobilinogen (Negative) Ur Leukocyte Esterase (Negative) Urine WBC (Auto) (0-5) /hpf Urine RBC (Auto) (0-2) /hpf U Hyaline Cast (Auto) (0-2) /lpf U Epithel Cells (Auto) (0-2) /hpf Urine Bacteria (Auto) (None Seen) Urine Yeast (None Prsent) Administered Medications Discontinued Medications Sodium Chloride (Nss) 500 mls @ 999 mls/hr IV .Q31M STA Stop: 04/22/24 17:13 Last Infusion: 04/22/24 18:12 Dose: Infused Documented By: Admin: 04/22/24 17:34 Dose: 999 mls/hr Documented By: JENNIFER Magnesium Citrate (Magnesium Citrate 296 Ml/Btl) 296 ml PO NOW STA Stop: 04/22/24 16:43 Last Admin: 04/22/24 16:59 Dose: 296 ml Documented By: JENNIFER Potassium Chloride (Potassium Chloride Pwd 20 Meq Pack) 40 meq PO NOW STA Stop: 04/22/24 19:10 Last Admin: 04/22/24 19:23 Dose: 40 meq Documented By: JENNIFER Discharge Plan Visit Data Chief Complaint: Abdominal Pain Stated Complaint: HTN, HEADACHE ED Provider: Rafael Peterson Discharge Problem: Acute UTI Forms Stand Alone Forms: My [facility] Prescriptions Prescriptions: No Action celecoxib 200 mg capsule 200 mg PO DAILY PRN (Reason: Pain) oxybutynin chloride 10 mg Tablet Extended Release 24hr 10 mg PO QAM sennosides-docusate sodium [Senokot-S] 8.6-50 mg Tablet 2 tab-cap PO HS Rx Instructions: hold for loose stool lidocaine 5 % adhesive patch,medicated 1 patch topical DAILY PRN (Reason: Pain) hydroxyzine HCl 25 mg Tablet 25 mg PO DAILY PRN (Reason: Anxiety) gabapentin 100 mg Capsule 100 mg PO TID Rx Instructions: Take am, noon, hs simethicone 80 mg Tablet,Chewable 80 mg PO TID budesonide-formoterol 160-4.5 mcg/actuation HFA aerosol inhaler 2 puff INHALATION AMHS Spiriva Respimat 2.5 mcg/actuation mist 2 puff INHALATION QAM Eliquis 5 mg tablet 5 mg PO AMHS Naloxone 4 Mg/0.1ml 1 spray intranasal (ALT) DIRECTED PRN (Reason: opiod od) Rx Instructions: suspected opoid od, 1 spray into 1 nostril Sterile Water For Irrigation 1 ea NA BID Rx Instructions: 1 liter bottle x 2. Irrigate suprapubic cath bid and allow to drain with 60- 120 ml of sterile irrigant. ferrous sulfate 325 mg (65 mg iron) Tablet 325 mg PO QDB collagenase clostridium histo. 250 unit/gram Ointment 1 applic TOPICAL DAILY Rx Instructions: apply to foot ulcers and cover dry bandage. Dakin's Solution 0.25 % Solution 1 irrig TOPICAL BID Rx Instructions: 1/2 strength, apply with packing. Use sterile wound wash 0.9% if dakins not available. duloxetine 60 mg Capsule, Delayed Rel Sprinkle 60 mg PO QAM baclofen 20 mg tablet 20 mg PO TID PRN (Reason: spasms) Qty: 60 0RF famotidine 20 mg Tablet 20 mg PO AMHS pediatric multivitamin Tablet,Chewable 1 tab PO DAILY melatonin 3 mg capsule 3 mg PO HS ascorbic acid (vitamin C) [Vitamin C] 500 mg Tablet 500 mg PO QAM Advanced Probiotic 625 mg (10 billion cell) Capsule 1 cap PO DAILY Qty: 5 0RF midodrine 2.5 mg Tablet 2.5 mg PO TID@0700,1200,1700 30 Days Qty: 90 0RF bisacodyl 10 mg Suppository 10 mg CA AMPM 30 Days Qty: 60 0RF Rx Instructions: hold for loose stools docusate sodium 100 mg Capsule 100 mg PO BID PRN (Reason: Constipation) Qty: 60 0RF lactulose 20 gram/30 mL Solution 20 g PO TID 30 Days Qty: 2700 0RF Rx Instructions: Hold for multiple loose BMs Referrals Referrals: Chay Aguilar, [Primary Care Provider] -
[2024-04-22] MEDS: MAGNESIUM CITRATE 296 ML/BTL PO STA (16:59)
[2024-04-22] MEDS: SODIUM CHLORIDE 0.9% 500 ML IV STA (17:34)
[2024-04-22 17:35] LABS: Appearance Urine Clear (Clear); Bacteria Urine Automated None Seen (None Seen); Bilirubin Urine Negative (Negative); Blood Urine 1+ (Negative); Cast Urine Automated 0-2 /lpf (0-2); Color Urine Yellow; Epithelial Cell Urine Auto 0-2 /hpf (0-2); Glucose Urine UA Negative (Negative); Ketones Urine Negative (Negative); Leukocyte Esterase Urine 3+ (Negative); Nitrite Urine Positive (Negative); Protein Urine Negative (Negative); Specific Gravity Urine 1.006 (1.000-1.030); Urobilinogen Urine Negative (Negative); WBC Urine Automated 21-50 /hpf (0-5)
[2024-04-22 17:45] LABS: Basophils # (auto) 0.08 K/uL (0.00-0.20); Basophils % (auto) 0.7 %; Eosinophils # (auto) 0.15 K/uL (0.00-0.50); Eosinophils % (auto) 1.3 %; Hematocrit (blood only) 47.4 % (42.0-52.0); Hemoglobin 15.2 g/dl (14.0-18.0); Immature Granulocytes # (auto) 0.03 K/uL (0.01-0.20); Immature Granulocytes % (auto) 0.3 %; Lymphocytes # (auto) 1.31 K/uL (1.20-3.40); Lymphocytes % (auto) 11.6 %; Mean Corpuscular Hgb Conc 32.1 g/dL (32.0-36.0); Mean Platelet Volume 9.8 fL (9.4-12.4); Monocytes # (auto) 0.92 K/uL (0.11-0.59); Monocytes % (auto) 8.1 %; Neutrophils # (auto) 8.83 K/uL (1.40-6.50); Platelet Count 282 K/uL (130-400); RDW Coefficient of Variation 18.7 % (11.5-14.5); RDW Standard Deviation 54.6 fL (36.4-46.3); Red Blood Count 5.64 M/uL (4.70-6.10); White Blood Count 11.32 K/ul (4.8-10.8)
[2024-04-22 18:03] LABS: Alanine Aminotransferase 8 U/L (7-52); Albumin Globulin Ratio 1.5 (0.9-2); Albumin Level 4.5 gm/dl (3.4-5.0); Alkaline Phosphatase 132 U/L (34-104); Anion Gap 10 (3-11); BUN Creatinine Ratio 12.2 (10-20); Bilirubin,Total 0.6 mg/dl (0.2-1.0); Blood Urea Nitrogen 6 mg/dl (6-23); Calcium 9.7 mg/dl (8.6-10.3); Carbon Dioxide 25 mmol/L (21-32); Chloride 102 mmol/L (98-107); Creatinine Clr Calc Pharmacy 208.8 ml/min; Est GFR (African American) > 150.0 ml/min; Est GFR (Non-African American) 130.1 ml/min; Globulin 3.1 gm/dl (2.5-4.0); Glucose 106 mg/dl (70-99(Fasting)); Lipase 8 U/L (11-82); Sodium 137 mmol/L (136-145); Total Protein 7.6 gm/dl (6.0-8.3)
[2024-04-22 18:51] LABS: Potassium 3.1 mmol/L (3.5-5.1)
[2024-04-22] MEDS: POTASSIUM CHLORIDE PWD 20 MEQ PACK PO STA (19:23)
[2024-04-22] MEDS: cefTRIAXone SODIUM 1,000 MG/50 ML BAG IV STA (19:37)
[2024-04-22] MEDS: ONDANSETRON INJ 2 MG/ML 2 ML VIAL IV PRN (19:52)
[2024-04-22] MEDS ORDERED: ACETAMINOPHEN 1,000 MG/100 ML VIAL IV PRN (20:35)
[2024-04-22] MEDS ORDERED: hydrOXYzine HCl 25 MG TAB PO PRN (20:54)
[2024-04-22] MEDS ORDERED: CeleBREX 200 MG CAP PO PRN (20:54)
[2024-04-22] MEDS ORDERED: DOCUSATE SODIUM 100 MG CAP PO PRN (20:54)
[2024-04-22] MEDS ORDERED: NALOXONE NASAL SPRAY 4 MG ER HOMEPACK PRN (20:54)
[2024-04-22] MEDS ORDERED: DAKIN'S SOLN 0.25% HALF STRENGTH 473ML BTL IR SCH (21:00)
--- NOTE | 2024-04-22 21:15 | History & Physical Report ---
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 Patient states the lactulose and suppositories not helping move his bowels. Today when he was trying to move his bowels he was having abdominal pain and diastolic blood pressure was in 140s when he called EMS. In ER he had episode of mild vomiting. Complains of abdominal pain. Denies headache. No chest pain or shortness of breath. No cough. No runny nose or sore throat. Afebrile. Chronic labile blood pressure and heart rates. Abdominal pain Constipation Mild fecal retention on CAT scan Patient wants to try suppository now If not successful will do enema Pain control Labile blood pressure Midodrine for hypotension Continue midodrine 2.5 mg 3 times daily Gentle fluids Will monitor History of asymptomatic bradycardia Patient advised to have outpatient ZIO monitor Abnormal UA Neurogenic bladder with chronic indwelling suprapubic catheter History of nephrolithiasis Empirically placed on cefepime Follow cultures Chronic sacral decubitus ulcer stage IV Chronic osteomyelitis No erythema or active drainage seen Wound care COPD Tobacco abuse Home inhalers Substance use disorder Provide narcotics History of PE Eliquis History of HCV Seems s/p treatment Mood disorder On duloxetine Chronic pain Gabapentin and baclofen and celecoxib as needed DVT prophylaxis On Eliquis Disposition Telemetry Full code. 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 Patient states the lactulose and suppositories not helping move his bowels. Today when he was trying to move his bowels he was having abdominal pain and diastolic blood pressure was in 140s when he called EMS. In ER he had episode of mild vomiting. Complains of abdominal pain. Denies headache. No chest pain or shortness of breath. No cough. No runny nose or sore throat. Afebrile. Chronic labile blood pressure and heart rates. Past medical history. As mentioned above Past surgical history. Bladder aspiration by suprapubic cath. Cystoscopy. Drainage of the right lower leg abscess. Incision of right first metatarsal. Neck and lumbar fusion. Bilateral arm surgery. Right ankle surgery. Laparoscopic appendectomy. Cholecystectomy. Social history. Smokes 1 pack a day for 31 years. Vaping some days. Alcohol rarely currently. Amphetamines, marijuana and cocaine use. Social history. Mother had lung cancer. Father had heart attack. Allergies Allergy/AdvReac Type Severity Reaction Status Date / Time No Known Allergies Allergy Verified 01/29/24 21:32 Home Medications Medication Instructions Recorded Confirmed Type Lactobacillus rhamnosus GG 10 1 cap PO DAILY 04/22/24 04/22/24 History billion cell capsule (Culturelle) apixaban 5 mg tablet (Eliquis) 5 mg PO BID 04/22/24 04/22/24 History ascorbic acid (vitamin C) 500 mg 500 mg PO DAILY 04/22/24 04/22/24 History capsule baclofen 10 mg tablet 20 mg PO TID PRN Spasms 04/22/24 04/22/24 History bisacodyl 10 mg rectal suppository 10 mg SC BID 04/22/24 04/22/24 History celecoxib 200 mg capsule 200 mg PO DAILY PRN Pain 04/22/24 04/22/24 History collagenase clostridium histo. 250 1 applic topical DAILY 04/22/24 04/22/24 Hist ory unit/gram topical ointment docusate sodium 100 mg capsule 100 mg PO BID PRN Constipation 04/22/24 04/22/24 History duloxetine 60 mg capsule,delayed 60 mg PO DAILY 04/22/24 04/22/24 History release famotidine 20 mg PO BID 04/22/24 04/22/24 History ferrous sulfate 325 mg (65 mg 325 mg PO DAILYBB 04/22/24 04/22/24 History iron) tablet gabapentin 100 mg capsule 100 mg PO TID 04/22/24 04/22/24 History hydroxyzine HCl 25 mg tablet 25 mg PO DAILY PRN Anxiety 04/22/24 04/22/24 History lactulose 20 gram oral packet 20 g PO TID 04/22/24 04/22/24 History lidocaine 5 % topical patch 1 patch topical DAILY PRN Pain 04/22/24 04/22/24 History melatonin 3 mg tablet 3 mg PO HS 04/22/24 04/22/24 History midodrine 2.5 mg tablet 2.5 mg PO TID 04/22/24 04/22/24 History naloxone 4 mg/actuation nasal spray 4 mg intranasal UD PRN opiod OD 04/22/24 04/22/24 History oxybutynin chloride 10 mg 10 mg PO DAILY 04/22/24 04/22/24 History tablet,extended release 24 hr pediatric multivitamin 1 tab PO DAILY 04/22/24 04/22/24 History sennosides 8.6 mg-docusate sodium 1 tab-cap PO HS 04/22/24 04/22/24 History 50 mg tablet (Senokot-S) simethicone 80 mg chewable tablet 80 mg PO TID 04/22/24 04/22/24 History sodium hypochlorite 0.25 % 1 irrig topical BID 04/22/24 04/22/24 History solution (Dakin's Solution) tiotropium bromide 2.5 2 puff inhalation DAILY 04/22/24 04/22/24 History mcg/actuation mist for inhalation (Spiriva Respimat) Past Med/Surg History Problem List (Updated 04/23/24 @ 07:51 by Zeus Toro MD) Abdominal pain Acute UTI (Acute) Autonomic dysreflexia Constipation Complicated urinary tract infection (Acute) Hydronephrosis (Acute) Acute urinary retention (Acute) Leukocytosis (Acute) Complication, blocked suprapubic catheter Hypokalemia (Acute) Hypomagnesemia (Acute) Anemia (Acute) Quadriplegia (Acute) Sacral decubitus ulcer (Acute) Acute UTI (Acute) Hypotension (Acute) Encephalopathy Pneumonia (Acute) Complicated urinary tract infection (Acute Unknown) Change or removal of nonsurgical wound dressing Acute hypoxemic respiratory failure (Acute) Chest pain (Acute) Abdominal pain (Acute) Severe sepsis (Acute) MRSA carrier Pneumonia (Acute) Hypoxic respiratory failure (Acute) 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 Leg wound, right Leg wound, left History of pulmonary embolism Hypoxia (Acute) RSV (respiratory syncytial virus infection) Chronic pain Suprapubic catheter (Acute) Complicated UTI (urinary tract infection) (Acute) Sacral decubitus ulcer, stage IV (Acute) Chronic osteomyelitis of sacrum Medical History Aspiration pneumonitis Pneumonia Paraplegia Surgical History No pertinent past surgical history Social History Smoking Status: Current every day smoker Tobacco Type: Cigarettes Cigarettes Per Day: 50-60; Second Hand Exposure: Yes; Do You Dip or Chew Tobacco: Yes; Hx Alcohol Use: Yes Alcohol type: hard liquor Hx Substance Use: Yes Non-Prescribed Medications: Crack / Cocaine and Marijuana Last Used Substance: Unknown Preferred Language: Ken[place] Communication Ability: Effective Mixing Machine Tender Required: No Beliefs That Will Affect Care: None Current Living Situation: Alone Current Living Situation Comment: alone with 28/02 home care Other Information That Helps Us Care for You: No Feels Safe at Home: Yes Safety Concerns: Feels Safe At This Time Assistive Devices: Hospital Bed, Mechanical Lift, Scooter/Electric Scooter and Other Review of Systems Review of Systems: All systems reviewed & are unremarkable except as noted in HPI & below Physical Exam Physical Exam: General- Not in acute distress Head- atraumatic Eyes- PERRL. ENT- oropharynx dry Lungs- clear to auscultation no wheezing or crackles Heart- regular rate ,bradycardia ; no murmur, no gallop. Abdomen- normal bowel sounds, soft, mild diffuse discomfort, no distension. Supra pubic cath site no erythema or drainage seen Extremities- no pretibial edema, no erythema seen Neuro- alert, oriented PERRL, no facial palsy; no dysarthria; moves upper extremities Skin. Stage IV decubitus ulcer no erythema or drainage seen Results & Data Results & Data Vital Signs (Past 12 Hours) Vital Signs Temp Pulse Pulse Resp BP BP Pulse Ox 04/22/24 20:00 58 L 16 162/113 H 96 04/22/24 18:30 66 16 156/114 H 97 04/22/24 17:09 55 L 18 96 04/22/24 16:40 36.8 C 61 18 145/97 H 95 04/22/24 16:32 85 O2 Del Method 04/22/24 20:00 Room Air 04/22/24 18:30 Room Air 04/22/24 17:09 Room Air 04/22/24 16:40 Room Air 04/22/24 16:32 Diagnostic Findings Laboratory Results WBC 11.32 K/ul (4.8-10.8) H 04/22/24 17:32 RBC 5.64 M/uL (4.70-6.10) 04/22/24 17:32 Hgb 15.2 g/dl (14.0-18.0) 04/22/24 17:32 Hct 47.4 % (42.0-52.0) 04/22/24 17:32 MCV 84.0 fL (80.0-100.0) 04/22/24 17:32 MCH 27.0 pg (25.0-34.0) 04/22/24 17:32 MCHC 32.1 g/dL (32.0-36.0) 04/22/24 17:32 RDW Std Deviation 54.6 fL (36.4-46.3) H 04/22/24 17:32 RDW Coeff of [place] 18.7 % (11.5-14.5) H 04/22/24 17:32 Plt Count 282 K/uL (130-400) 04/22/24 17:32 MPV 9.8 fL (9.4-12.4) 04/22/24 17:32 Immature Gran % (Auto) 0.3 % 04/22/24 17:32 Neut % (Auto) 78.0 % 04/22/24 17:32 Lymph % (Auto) 11.6 % 04/22/24 17:32 [place] % (Auto) 8.1 % 04/22/24 17:32 Eos % (Auto) 1.3 % 04/22/24 17:32 Baso % (Auto) 0.7 % 04/22/24 17:32 Neut # (Auto) 8.83 K/uL (1.40-6.50) H 04/22/24 17:32 Lymph # (Auto) 1.31 K/uL (1.20-3.40) 04/22/24 17:32 [place] # (Auto) 0.92 K/uL (0.11-0.59) H 04/22/24 17:32 Eos # (Auto) 0.15 K/uL (0.00-0.50) 04/22/24 17:32 Baso # (Auto) 0.08 K/uL (0.00-0.20) 04/22/24 17:32 Immature Gran # (Auto) 0.03 K/uL (0.01-0.20) 04/22/24 17:32 Sodium 137 mmol/L (136-145) 04/22/24 17:28 Potassium 3.1 mmol/L (3.5-5.1) L 04/22/24 18:19 Chloride 102 mmol/L (98-107) 04/22/24 17:28 Carbon Dioxide 25 mmol/L (21-32) 04/22/24 17:28 Anion Gap 10 (3-11) 04/22/24 17:28 BUN 6 mg/dl (6-23) 04/22/24 17:28 Creatinine 0.49 mg/dl (0.6-1.4) L 04/22/24 17:28 Est Cr Clr Drug Dosing 208.8 ml/min 04/22/24 17:28 Est GFR ( Amer) > 150.0 ml/min 04/22/24 17:28 Est GFR (Non-Af Amer) 130.1 ml/min 04/22/24 17:28 BUN/Creatinine Ratio 12.2 (10-20) 04/22/24 17:28 Glucose 106 mg/dl (70-99(Fasting)) H 04/22/24 17:28 Calcium 9.7 mg/dl (8.6-10.3) 04/22/24 17:28 Total Bilirubin 0.6 mg/dl (0.2-1.0) 04/22/24 17:28 AST 18 U/L (13-39) 04/22/24 18:19 ALT 8 U/L (7-52) 04/22/24 17:28 Alkaline Phosphatase 132 U/L (34-104) H 04/22/24 17:28 Total Protein 7.6 gm/dl (6.0-8.3) 04/22/24 17:28 Albumin 4.5 gm/dl (3.4-5.0) 04/22/24 17:28 Globulin 3.1 gm/dl (2.5-4.0) 04/22/24 17:28 Albumin/Globulin Ratio 1.5 (0.9-2) 04/22/24 17:28 Lipase 8 U/L (11-82) L 04/22/24 17:28 Urine Color Yellow 04/22/24 16:59 Urine Appearance Clear (Clear) 04/22/24 16:59 Urine pH 7.0 (4.5-7.5) 04/22/24 16:59 Ur Specific [place] 1.006 (1.000-1.030) 04/22/24 16:59 Urine Protein Negative (Negative) 04/22/24 16:59 Urine Glucose (UA) Negative (Negative) 04/22/24 16:59 Urine Ketones Negative (Negative) 04/22/24 16:59 Urine Blood 1+ (Negative) H 04/22/24 16:59 Urine Nitrite Positive (Negative) A 04/22/24 16:59 Urine Bilirubin Negative (Negative) 04/22/24 16:59 Urine Urobilinogen Negative (Negative) 04/22/24 16:59 Ur Leukocyte Esterase 3+ (Negative) H 04/22/24 16:59 Urine WBC (Auto) 21-50 /hpf (0-5) H 04/22/24 16:59 Urine RBC (Auto) 11-20 /hpf (0-2) H 04/22/24 16:59 U Hyaline Cast (Auto) 0-2 /lpf (0-2) 04/22/24 16:59 U Epithel Cells (Auto) 0-2 /hpf (0-2) 04/22/24 16:59 Urine Bacteria (Auto) None Seen (None Seen) 04/22/24 16:59 Urine Yeast Present (None Prsent) A 04/22/24 16:59 Impressions Abdomen/Pelvis CT 04/22/24 20:14 Exam(s): CT ABDOMEN + PELVIS Without Contrast EXAM: CT Abdomen and Pelvis Without Intravenous Contrast CLINICAL HISTORY: Reason for exam: abdominal pain, nausea, constipation. TECHNIQUE: Axial computed tomography images of the abdomen and pelvis without intravenous contrast. CTDI is 27.93 mGy and DLP is 1543.89 mGy-cm. Automated exposure control was utilized for the study. A dose lowering technique was utilized adhering to the principles of ALARA. COMPARISON: No relevant prior studies available. FINDINGS: Lung bases: Unremarkable. No mass. No consolidation. ABDOMEN: Liver: Unremarkable. Gallbladder and bile ducts: Unremarkable. No calcified stones. No ductal dilation. Pancreas: Unremarkable. No ductal dilation. Spleen: Unremarkable. No splenomegaly. Adrenals: Unremarkable. No mass. Kidneys and ureters: Multiple bilateral nonobstructing renal stones, preferentially involving the LEFT kidney, measuring approximately 5-7 mm in size. Mild fullness of the bilateral ureters. No obstructing stone. Stomach and bowel: Mild fecal retention, correlate for constipation. Diverticulosis, without acute diverticulitis. No small bowel obstruction. No free intraperitoneal air. PELVIS: Appendix: No findings to suggest acute appendicitis. Bladder: Unremarkable. No stones. Reproductive: Unremarkable as visualized. ABDOMEN and PELVIS: Intraperitoneal space: Unremarkable. No free air. No significant fluid collection. Bones/joints: Degenerative changes of the spine. No acute fracture. No dislocation. Soft tissues: Stage IV sacral decubitus ulcer extending to the sacrum. No drainable fluid collection or abscess. Correlate with wound care exam. Vasculature: Unremarkable. No abdominal aortic aneurysm. Lymph nodes: Unremarkable. No enlarged lymph nodes. IMPRESSION: 1. Multiple bilateral nonobstructing renal stones, preferentially involving the LEFT kidney, measuring approximately 5-7 mm in size. Mild fullness of the bilateral ureters. No obstructing stone. 2. Stage IV sacral decubitus ulcer extending to the sacrum. No drainable fluid collection or abscess. Correlate with wound care exam. 3. Mild fecal retention, correlate for constipation. 4. Diverticulosis, without acute diverticulitis. No small bowel obstruction. No free intraperitoneal air. Electronically signed by: John Paul Roberts MD 04/22/24 23:54 PM ECG Additional Comments: ECG sinus bradycardia rate of 56. Possible left atrial enlargement. Nonspecific T wave abnormalities in anterior leads Code Status & VTE Plan VTE Prophylaxis Plan VTE Prophylaxis will be ordered: Yes
[2024-04-22] MEDS: ONDANSETRON INJ 2 MG/ML 2 ML VIAL ONE (21:40)
[2024-04-22] MEDS: SODIUM CHLORIDE 0.9% 500 ML IV SCH (21:45)
[2024-04-22] MEDS: SODIUM CHLORIDE 0.9% 1,000 ML IV SCH (21:46)
[2024-04-22] MEDS: MIDODRINE HCL 2.5 MG TAB PO STA (21:47)
[2024-04-22] MEDS: CEFEPIME 2,000 MG in SYRINGE 0 ML IV SCH (22:33)
[2024-04-22] MEDS: LACTULOSE SYRUP 20 GM/30 ML UDC PO SCH (22:50)
[2024-04-22] MEDS: FAMOTIDINE 20 MG TAB PO SCH (22:51)
[2024-04-22] MEDS: GABAPENTIN 100 MG CAP PO SCH (22:51)
[2024-04-22] MEDS: MELATONIN 3 MG TAB PO SCH (22:51)
[2024-04-22] MEDS: bisacodyL 10 MG SUPP PR SCH (22:51)
[2024-04-22] MEDS: SIMETHICONE 80 MG CHEW PO SCH (22:51)
[2024-04-22] MEDS: APIXABAN 5 MG TABLET PO SCH (22:51)
[2024-04-22] MEDS: DOCUSATE SODIUM/SENNA 50/8.6MG TAB PO SCH (22:55)
[2024-04-22] MEDS: DAKIN'S SOLN 0.25% HALF STRENGTH 473ML BTL EXT SCH (22:56)
--- NOTE | 2024-04-22 23:55 | CT Scan Report ---
Exam(s): CT ABDOMEN + PELVIS Without Contrast EXAM: CT Abdomen and Pelvis Without Intravenous Contrast CLINICAL HISTORY: Reason for exam: abdominal pain, nausea, constipation. TECHNIQUE: Axial computed tomography images of the abdomen and pelvis without intravenous contrast. CTDI is 27.93 mGy and DLP is 1543.89 mGy-cm. Automated exposure control was utilized for the study. A dose lowering technique was utilized adhering to the principles of ALARA. COMPARISON: No relevant prior studies available. FINDINGS: Lung bases: Unremarkable. No mass. No consolidation. ABDOMEN: Liver: Unremarkable. Gallbladder and bile ducts: Unremarkable. No calcified stones. No ductal dilation. Pancreas: Unremarkable. No ductal dilation. Spleen: Unremarkable. No splenomegaly. Adrenals: Unremarkable. No mass. Kidneys and ureters: Multiple bilateral nonobstructing renal stones, preferentially involving the LEFT kidney, measuring approximately 5-7 mm in size. Mild fullness of the bilateral ureters. No obstructing stone. Stomach and bowel: Mild fecal retention, correlate for constipation. Diverticulosis, without acute diverticulitis. No small bowel obstruction. No free intraperitoneal air. PELVIS: Appendix: No findings to suggest acute appendicitis. Bladder: Unremarkable. No stones. Reproductive: Unremarkable as visualized. ABDOMEN and PELVIS: Intraperitoneal space: Unremarkable. No free air. No significant fluid collection. Bones/joints: Degenerative changes of the spine. No acute fracture. No dislocation. Soft tissues: Stage IV sacral decubitus ulcer extending to the sacrum. No drainable fluid collection or abscess. Correlate with wound care exam. Vasculature: Unremarkable. No abdominal aortic aneurysm. Lymph nodes: Unremarkable. No enlarged lymph nodes. IMPRESSION: 1. Multiple bilateral nonobstructing renal stones, preferentially involving the LEFT kidney, measuring approximately 5-7 mm in size. Mild fullness of the bilateral ureters. No obstructing stone. 2. Stage IV sacral decubitus ulcer extending to the sacrum. No drainable fluid collection or abscess. Correlate with wound care exam. 3. Mild fecal retention, correlate for constipation. 4. Diverticulosis, without acute diverticulitis. No small bowel obstruction. No free intraperitoneal air. Electronically signed by: John Paul Roberts MD 04/22/24 23:54 PM
[2024-04-23] MEDS: BACLOFEN 20 MG TAB PO PRN (06:43)
[2024-04-23] MEDS: FERROUS SULFATE 325 MG TAB PO SCH (06:43)
[2024-04-23] MEDS: MIDODRINE HCL 2.5 MG TAB PO SCH (06:43)
[2024-04-23] MEDS: MULTIVITAMIN CHEWABLE TAB PO SCH (08:08)
[2024-04-23] MEDS: ADVANCED PROBIOTIC 625 MG CAPSULE PO SCH (08:08)
[2024-04-23] MEDS: ASCORBIC ACID 500 MG TAB PO SCH (08:08)
[2024-04-23] MEDS: OXYBUTYNIN CHLORIDE XL 5 MG TABCR PO SCH (08:08)
[2024-04-23] MEDS: COLLAGENASE OINT 30 GM TUBE TOP SCH (08:09)
[2024-04-23] MEDS: UMECLIDINIUM BROMIDE 62.5MCG/BLISTER 7 PUFFS/INHALER INH SCH (08:09)
[2024-04-23] MEDS: DULoxetine HCL 60 MG CAP PO SCH (08:09)
[2024-04-23] MEDS ORDERED: LIDOCAINE 5% 1 PATCH TD PRN (09:00)
[2024-04-23] MEDS: SOD PHOSPHATE/SOD BIPHOSPHATE ENEMA 132 ML BTL PR STA (11:40)
--- NOTE | 2024-04-23 15:17 | Hospitalist Progress Note ---
Date of Service April 23, 2024 Assessment & Plan (1) Abdominal pain: Plan: Mr. 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 Patient reports not having his bowel regimen refilled as he does not like his PCP so has not followed up for refills. He states abdominal pain is improved. Patient with more stable pressures on scheduled midodrine Discussed adding tele monitor. Plan for dispo in am #Asymptomatic asymptomatic episodic bradycardia #Liable BP iso autonomic dysfunction Home midodrine often sends BP into 200s Patient reports he is always on 10mg since it started Advised not to lay supine while on midodrine Continue 2.5mg TID scheduled, seems to work well Patient does not require atropine, pacer pads, or acute interventions including pacemaker for bradycardia. Patient is asymptomatic and with out any tami block, patient educated extensively on this and verbalized understanding." #Abnormal UA #H/O neurogenic bladder with chronic indwelling suprapubic catheter #H/O nephrolithiasis UA without bacteria, always active compared to prior denies sx suggestive of infection; however, given recent issues with bp will cover empirically Patient asymptomatic with a suprapubic cath Discontinue abx #Abdominal pain resolved #Constipation Afebrile, no leukocytosis, normal lipase, LFTs unremarkable KUB: no obstruction, +stool 04/15/24 UA likely contamination and not UTI. If UA positive will add antibiotics CT abd/pelvis 04/15/24: Wall thickening of the rectum remonstrated suggestive of a nonspecific proctitis. Chronic postoperative changes of the sacrum and coccyx with findings suggestive of chronic osteomyelitis adjacent to a chronic large sacral decubitus ulcer. Nonobstructing bilateral nephrolithiasis with resolution of the previously seen hydronephrosis.Suprapubic catheter in place with a decompressed urinary bladder. Renal US stable No need for further imaging GI consulted, reviewed recommendations -No acute indication for endoscopic evaluation. -OP colonoscopy with his regular GI providers -continue his home bowel regimen of Lactulose, Senna, colace, dulcolax - continue Miralax 1-2 capfuls daily -Start PRN daily enema #Chronic sacral decubitus ulcer stage IV #Chronic osteomyelitis Does not appear acutely infected Wound nurse consult Air mattress #COPD #Tobacco use disorder No signs of acute exacerbation Continue home inhalers #Substance use disorder PDMP reviewed and not filled since 01/2024. Will attempt to avoid narcotics if able Urine drug screen opioid positive #Quadriplegic secondary to traumatic cervical injury #Functional disability No acute issues, no motor sensation intact Fall precautions #H/O PE Anticoagulated on Eliquis Continue Eliquis #H/O HCV Completed treatment per record #Mood disorder Continue home medications DVTppx eliquis Dispo augustus tomorrow Admission and Anticipated Discharge Date Admission Date: April 22, 2024 Subjective Patient scared over bradycardia, however, discussed and asked symptoms -No syncope/presyncope, dizziness, chest pain, SOB, STUART, fevers, chills, or other acute concerns Reports family just hasn't purchased enemas and his bowel routine not updated at home Feels better now that he has had a bowel movement Physical Exam Constitutional: WD/WN, vitals as above Respiratory: normal respiratory effort, lungs clear to auscultation Cardiovascular: RRR, no murmur, no edema Results & Data Results & Data Vital Signs (Past 12 Hours) Vital Signs Pulse Resp BP Pulse Ox O2 Del Method O2 Flow Rate 04/23/24 09:20 56 L 04/23/24 07:00 54 L 16 81/54 L 98 Nasal Cannula 2 04/23/24 06:45 56 L 15 97 04/23/24 06:27 52 L 13 96 04/23/24 06:03 48 L 29 H 80/48 L 99 Nasal Cannula 2 04/23/24 05:00 60 17 97 Nasal Cannula 2 04/23/24 04:30 58 L 16 80/47 L 97 Nasal Cannula 2 04/23/24 04:03 71 16 89/52 L 96 Nasal Cannula 2 04/23/24 03:27 79 15 81/45 L 96 Nasal Cannula 2 Laboratory Results Short CBC 04/22/24 Range/Units 17:32 WBC 11.32 H (4.8-10.8) K/ul Hgb 15.2 (14.0-18.0) g/dl Hct 47.4 (42.0-52.0) % Plt Count 282 (130-400) K/uL BMP 04/22/24 04/22/24 17:28 18:19 Sodium 137 Potassium TNP 3.1 L Chloride 102 Carbon Dioxide 25 BUN 6 Creatinine 0.49 L Glucose 106 H Calcium 9.7 Liver Function 04/22/24 04/22/24 Range/Units 17:28 18:19 Total Bilirubin 0.6 (0.2-1.0) mg/dl AST TNP 18 ALT 8 (7-52) U/L Alkaline Phosphatase 132 H (34-104) U/L Albumin 4.5 (3.4-5.0) gm/dl Urine 04/22/24 Range/Units 16:59 Urine Color Yellow Urine Appearance Clear (Clear) Urine pH 7.0 (4.5-7.5) Ur Specific [place] 1.006 (1.000-1.030) Urine Protein Negative (Negative) Urine Glucose (UA) Negative (Negative) Medications Administered Home Medications Medication Instructions Recorded Confirmed Last Taken Lactobacillus rhamnosus GG 10 1 cap PO DAILY 04/22/24 04/22/24 Unknown billion cell capsule (Culturelle) apixaban 5 mg tablet (Eliquis) 5 mg PO BID 04/22/24 04/22/24 Unknown ascorbic acid (vitamin C) 500 mg 500 mg PO DAILY 04/22/24 04/22/24 Unknown capsule baclofen 10 mg tablet 20 mg PO TID PRN Spasms 04/22/24 04/22/24 Unknown bisacodyl 10 mg rectal suppository 10 mg [place] BID 04/22/24 04/22/24 Unknown celecoxib 200 mg capsule 200 mg PO DAILY PRN Pain 04/22/24 04/22/24 Unknown collagenase clostridium histo. 250 1 applic topical DAILY 04/22/24 04/22/24 Unknown unit/gram topical ointment docusate sodium 100 mg capsule 100 mg PO BID PRN Constipation 04/22/24 04/22/24 Unknown duloxetine 60 mg capsule,delayed 60 mg PO DAILY 04/22/24 04/22/24 Unknown release famotidine 20 mg PO BID 04/22/24 04/22/24 Unknown ferrous sulfate 325 mg (65 mg 325 mg PO DAILYBB 04/22/24 04/22/24 Unknown iron) tablet gabapentin 100 mg capsule 100 mg PO TID 04/22/24 04/22/24 Unknown hydroxyzine HCl 25 mg tablet 25 mg PO DAILY PRN Anxiety 04/22/24 04/22/24 Unknown lactulose 20 gram oral packet 20 g PO TID 04/22/24 04/22/24 Unknown lidocaine 5 % topical patch 1 patch topical DAILY PRN Pain 04/22/24 04/22/24 Unknown melatonin 3 mg tablet 3 mg PO HS 04/22/24 04/22/24 Unknown midodrine 2.5 mg tablet 2.5 mg PO TID 04/22/24 04/22/24 Unknown naloxone 4 mg/actuation nasal spray 4 mg intranasal UD PRN opiod OD 04/22/24 04/22/24 Unknown oxybutynin chloride 10 mg 10 mg PO DAILY 04/22/24 04/22/24 Unknown tablet,extended release 24 hr pediatric multivitamin 1 tab PO DAILY 04/22/24 04/22/24 Unknown sennosides 8.6 mg-docusate sodium 1 tab-cap PO HS 04/22/24 04/22/24 Unknown 50 mg tablet (Senokot-S) simethicone 80 mg chewable tablet 80 mg PO TID 04/22/24 04/22/24 Unknown sodium hypochlorite 0.25 % 1 irrig topical BID 04/22/24 04/22/24 Unknown solution (Dakin's Solution) tiotropium bromide 2.5 2 puff inhalation DAILY 04/22/24 04/22/24 Unknown mcg/actuation mist for inhalation (Spiriva Respimat) Active Medications Generic Name Dose Route Start Last Admin Trade Name Freq PRN Reason Stop Dose Admin Apixaban 5 mg 04/22/24 21:00 04/23/24 08:08 Apixaban 5 Mg Tablet PO 05/22/24 20:59 5 mg BID ROSALES Administration Ascorbic Acid 500 mg 04/23/24 09:00 04/23/24 08:08 Ascorbic Acid 500 Mg Tab PO 05/23/24 08:59 500 mg DAILY ROSALES Administration Baclofen 20 mg 04/22/24 20:54 04/23/24 06:43 Baclofen 20 Mg Tab PO 05/22/24 20:53 20 mg TID PRN Administration Spasms Bisacodyl 10 mg 04/22/24 21:00 04/23/24 03:06 Bisacodyl 10 Mg Supp FL 05/22/24 20:59 10 mg BID ROSALES Administration Collagenase 1 appln 04/23/24 09:00 04/23/24 08:09 Collagenase Oint 30 Gm Tube TOP 05/23/24 08:59 1 appln DAILY ROSALES Administration Duloxetine HCl 60 mg 04/23/24 09:00 04/23/24 08:09 Duloxetine Hcl 60 Mg Cap PO 05/23/24 08:59 60 mg DAILY ROSALES Administration Famotidine 20 mg 04/22/24 21:00 04/23/24 08:09 Famotidine 20 Mg Tab PO 05/22/24 20:59 20 mg BID ROSALES Administration Ferrous Sulfate 325 mg 04/23/24 06:30 04/23/24 06:43 Ferrous Sulfate 325 Mg Tab PO 05/23/24 06:29 325 mg DAILYBB ROSALES Administration Gabapentin 100 mg 04/22/24 21:00 04/23/24 13:33 Gabapentin 100 Mg Cap PO 05/22/24 20:59 100 mg TID ROSALES Administration Lactobacillus Acidophilus 1,250 mg 04/23/24 09:00 04/23/24 08:08 Advanced Probiotic 625 Mg Capsule PO 05/23/24 08:59 1,250 mg DAILY ROSALES Administration Lactulose 20 gm 04/22/24 21:00 04/23/24 13:33 Lactulose Syrup 20 Gm/30 Ml Udc PO 05/22/24 20:59 20 gm TID ROSALES Administration Melatonin 3 mg 04/22/24 21:00 04/22/24 22:51 Melatonin 3 Mg Tab PO 05/22/24 20:59 Not Given HS ROSALES Midodrine 2.5 mg 04/23/24 07:00 04/23/24 11:00 Midodrine Hcl 2.5 Mg Tab PO 05/23/24 06:59 2.5 mg TID@0700,1200,1700 ROSALES Administration Multivitamins/Folic Acid/Vitamin C 1 tab 04/23/24 09:00 04/23/24 08:08 Multivitamin Chewable Tab PO 05/23/24 08:59 1 tab DAILY ROSALES Administration Ondansetron HCl 4 mg 04/22/24 20:35 04/22/24 19:52 Ondansetron Inj 2 Mg/Ml 2 Ml Vial IV 05/22/24 20:34 4 mg Q6H PRN Administration Nausea Oxybutynin Chloride 10 mg 04/23/24 09:00 09/16/24 08:08 Oxybutynin Chloride Xl 5 Mg Tabcr PO 05/23/24 08:59 10 mg DAILY ROSALES Administration Senna/Docusate Sodium 1 tab 04/22/24 21:00 04/22/24 22:55 Docusate Sodium/Senna 50/8.6mg Tab PO 05/22/24 20:59 1 tab HS ROSALES Administration Simethicone 80 mg 04/22/24 21:00 04/23/24 13:33 Simethicone 80 Mg Chew PO 05/22/24 20:59 80 mg TID ROSALES Administration Sodium Hypochlorite 1 appln 04/22/24 21:00 04/23/24 08:10 Dakin's Soln 0.25% Half Strength 473ml Btl EXT 05/22/24 20:59 1 appln BID ROSALES Administration Umeclidinium Rule 1 puffs 04/23/24 09:00 04/23/24 08:09 Umeclidinium Rule 62.5mcg/Blister 7 Puffs/Inhaler INH 05/23/24 08:59 1 puffs DAILY ROSALES Administration
[2024-04-23] MEDS ORDERED: SOD PHOSPHATE/SOD BIPHOSPHATE ENEMA 132 ML BTL PR PRN (16:39)
[2024-04-23] MEDS: POTASSIUM CHLORIDE CRTAB 20 MEQ TABCR PO STA (17:49)
[2024-04-23] MEDS: BACLOFEN 20 MG TAB PO SCH (22:26)
[2024-04-23] MEDS: MIDODRINE HCL 2.5 MG TAB PO STA (23:00)
[2024-04-24 00:02] VITALS: RESP 18
--- NOTE | 2024-04-24 06:23 | Electrocardiogram Report ---
Test Reason : Blood Pressure : */* mmHG Vent. Rate : 56 BPM Atrial Rate : 56 BPM P-R Int : 180 ms QRS Dur : 90 ms QT Int : 430 ms P-R-T Axes : 7 -13 21 degrees QTcB Int : 414 ms Sinus bradycardia Possible Left atrial enlargement Minimal voltage criteria for LVH, may be normal variant ( R in aVL ) Borderline ECG When compared with ECG of 19-Apr-2024 00:01, Nonspecific T wave abnormality now evident in Anterior leads Confirmed by Thomas Goode ([id number]) on 04/24/2024 6:22:42 AM Referred By: Confirmed By: Thomas Goode
[2024-04-24 08:04] VITALS: TEMP 97.9
[2024-04-24] MEDS: POTASSIUM CHLORIDE CRTAB 20 MEQ TABCR PO SCH (08:55)
--- NOTE | 2024-04-24 09:29 | Electrocardiogram Report ---
Test Reason : Blood Pressure : */* mmHG Vent. Rate : 40 BPM Atrial Rate : 40 BPM P-R Int : 154 ms QRS Dur : 82 ms QT Int : 484 ms P-R-T Axes : -3 -7 35 degrees QTcB Int : 394 ms Marked sinus bradycardia Abnormal ECG When compared with ECG of 22-Apr-2024 20:44, No significant change was found Confirmed by Javier Morejon ([id number]) on 04/24/2024 9:29:41 AM Referred By: REFERRED SELF Confirmed By: Javier Morejon
--- NOTE | 2024-04-24 09:29 | Electrocardiogram Report ---
Test Reason : Blood Pressure : */* mmHG Vent. Rate : 43 BPM Atrial Rate : 43 BPM P-R Int : 190 ms QRS Dur : 88 ms QT Int : 482 ms P-R-T Axes : 33 -19 27 degrees QTcB Int : 407 ms Marked sinus bradycardia Minimal voltage criteria for LVH, may be normal variant ( R in aVL ) Abnormal ECG When compared with ECG of 22-Apr-2024 16:32, No significant change was found Confirmed by Javier Morejon ([id number]) on 04/24/2024 9:28:47 AM Referred By: REFERRED SELF Confirmed By: Javier Morejon
[2024-04-24 11:24] VITALS: BP 142/81; O2SAT 98
--- NOTE | 2024-04-24 14:06 | CT Scan Report ---
CT head/brain wo con CLINICAL HISTORY: 48 years-old Male with hand numbness r/o stoke. Acute strokelike symptoms TECHNIQUE: Multiple axial CT images of the head were obtained without contrast. A dose lowering tech nique was utilized adhering to the principles of ALARA. CT DOSE: 625.8 mGy.cm COMPARISON: 04/19/2024 FINDINGS: No acute intracranial hemorrhage, midline shift, intracranial mass, hydrocephalus, territorial ischem ia or abnormal extra-axial collection. The calvarium is intact. Minimal mucosal thickening of the right maxillary sinus. The mastoid air ce lls are clear. Unremarkable soft tissues. IMPRESSION: No acute intracranial abnormality. ACT 112: Negative or not required by law. The above report was generated using voice recognition software. It may contain grammatical, syntax o r spelling errors. Electronically signed by: Anil Friedman M.D. 04/24/2024 2:04 PM
--- NOTE | 2024-04-24 14:23 | Discharge Summary ---
Discharge Summary Date of Service April 24, 2024 Principal Dx & Hospital Course #1 = Principal Diagnosis (1) Abdominal pain: Mr. 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 Patient reports not having his bowel regimen refilled as he does not like his PCP so has not followed up for refills. He states abdominal pain is improved. Patient with more stable pressures on scheduled midodrine Patient states he thinks he had a stroke but cannot state why--CT head ordered and r/o any abnormality. KUB stable. Informed and spent over an hour educating patient on his physiology--the fluctuating blood pressures and that giving a blood pressure medicine would be harmful, rather he just position his bed upright and avoid laying flat during the day while on midodrine. Explained why he does not need a pacemaker. Patient verbalized understanding. Explained his bowel regimen in depth. Patient verbalized understanding. #Asymptomatic asymptomatic episodic bradycardia #Liable BP iso autonomic dysfunction Home midodrine often sends BP into 200s Patient reports he is always on 10mg since it started Advised not to lay supine while on midodrine Continue 2.5mg TID scheduled, seems to work well Patient does not require atropine, pacer pads, or acute interventions including pacemaker for bradycardia. Patient is asymptomatic and with out any tami block, patient educated extensively on this and verbalized understanding." Explained that patient does not have sustained htn and does not need a medication for this and will likley cause more harm given the need for midodrine #Abnormal UA #H/O neurogenic bladder with chronic indwelling suprapubic catheter #H/O nephrolithiasis UA without bacteria, always active compared to prior denies sx suggestive of infection; however, given recent issues with bp will cover empirically Patient asymptomatic with a suprapubic cath Discontinue abx #Abdominal pain resolved #Constipation Afebrile, no leukocytosis, normal lipase, LFTs unremarkable KUB: no obstruction, +stool 04/15/24 UA likely contamination and not UTI. If UA positive will add antibiotics CT abd/pelvis 04/15/24: Wall thickening of the rectum remonstrated suggestive of a nonspecific proctitis. Chronic postoperative changes of the sacrum and coccyx with findings suggestive of chronic osteomyelitis adjacent to a chronic large sacral decubitus ulcer. Nonobstructing bilateral nephrolithiasis with resolution of the previously seen hydronephrosis.Suprapubic catheter in place with a decompressed urinary bladder. Renal US stable No need for further imaging GI consulted, reviewed recommendations -No acute indication for endoscopic evaluation. -OP colonoscopy with his regular GI providers -continue his home bowel regimen of Lactulose, Senna, colace, dulcolax - continue Miralax 1-2 capfuls daily -Start PRN daily enema #Chronic sacral decubitus ulcer stage IV #Chronic osteomyelitis Does not appear acutely infected Wound nurse consult Air mattress #COPD #Tobacco use disorder No signs of acute exacerbation Continue home inhalers #Substance use disorder PDMP reviewed and not filled since 01/2024. 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 Patient states the lactulose and suppositories not helping move his bowels. Today when he was trying to move his bowels he was having abdominal pain and diastolic blood pressure was in 140s when he called EMS. In ER he had episode of mild vomiting. Complains of abdominal pain. Denies headache. No chest pain or shortness of breath. No cough. No runny nose or sore throat. Afebrile. Chronic labile blood pressure and heart rates. Past medical history. As mentioned above Past surgical history. Bladder aspiration by suprapubic cath. Cystoscopy. Drainage of the right lower leg abscess. Incision of right first metatarsal. Neck and lumbar fusion. Bilateral arm surgery. Right ankle surgery. Laparoscopic appendectomy. Cholecystectomy. Social history. Smokes 1 pack a day for 31 years. Vaping some days. Alcohol rarely currently. Amphetamines, marijuana and cocaine use. Social history. Mother had lung cancer. Father had heart attack. Admission Exam Per Admitting Provider General- Not in acute distress Head- atraumatic Eyes- PERRL. ENT- oropharynx dry Lungs- clear to auscultation no wheezing or crackles Heart- regular rate ,bradycardia ; no murmur, no gallop. Abdomen- normal bowel sounds, soft, mild diffuse discomfort, no distension. Supra pubic cath site no erythema or drainage seen Extremities- no pretibial edema, no erythema seen Neuro- alert, oriented PERRL, no facial palsy; no dysarthria; moves upper extremities Skin. Stage IV decubitus ulcer no erythema or drainage seen Discharge Exam Constitutional WD/WN, vitals as above Respiratory normal respiratory effort, lungs clear to auscultation Cardiovascular RRR, no murmur, no edema Gastrointestinal (Abdomen) normal bowel sounds, soft, nontender, no hepatosplenomegaly Updated Medication List Medication Instructions Recorded Confirmed Type Lactobacillus rhamnosus GG 10 1 cap PO DAILY 04/22/24 04/22/24 History billion cell capsule (Culturelle) apixaban 5 mg tablet (Eliquis) 5 mg PO BID 04/22/24 04/22/24 History ascorbic acid (vitamin C) 500 mg 500 mg PO DAILY 04/22/24 04/22/24 History capsule baclofen 10 mg tablet 20 mg PO TID PRN Spasms 04/22/24 04/22/24 History bisacodyl 10 mg rectal suppository 10 mg [place] BID 04/22/24 04/22/24 History celecoxib 200 mg capsule 200 mg PO DAILY PRN Pain 04/22/24 04/22/24 History collagenase clostridium histo. 250 1 applic topical DAILY 04/22/24 04/22/24 History unit/gram topical ointment docusate sodium 100 mg capsule 100 mg PO BID PRN Constipation 04/22/24 04/22/24 History duloxetine 60 mg capsule,delayed 60 mg PO DAILY 04/22/24 04/22/24 History release famotidine 20 mg PO BID 04/22/24 04/22/24 History ferrous sulfate 325 mg (65 mg 325 mg PO DAILYBB 04/22/24 04/22/24 History iron) tablet gabapentin 100 mg capsule 100 mg PO TID 04/22/24 04/22/24 History hydroxyzine HCl 25 mg tablet 25 mg PO DAILY PRN Anxiety 04/22/24 04/22/24 History lactulose 20 gram oral packet 20 g PO TID 04/22/24 04/22/24 History lidocaine 5 % topical patch 1 patch topical DAILY PRN Pain 04/22/24 04/22/24 History melatonin 3 mg tablet 3 mg PO HS 04/22/24 04/22/24 History midodrine 2.5 mg tablet 2.5 mg PO TID 04/22/24 04/22/24 History naloxone 4 mg/actuation nasal spray 4 mg intranasal UD PRN opiod OD 04/22/24 04/22/24 History oxybutynin chloride 10 mg 10 mg PO DAILY 04/22/24 04/22/24 History tablet,extended release 24 hr pediatric multivitamin 1 tab PO DAILY 04/22/24 04/22/24 History simethicone 80 mg chewable tablet 80 mg PO TID 04/22/24 04/22/24 History sodium hypochlorite 0.25 % 1 irrig topical BID 04/22/24 04/22/24 History solution (Dakin's Solution) tiotropium bromide 2.5 2 puff inhalation DAILY 04/22/24 04/22/24 History mcg/actuation mist for inhalation (Spiriva Respimat) sennosides 8.6 mg-docusate sodium 2 tab-cap (2 x 8.6-50 mg) PO HS 04/24/24 Rx 50 mg tablet (Senokot-S) #60 tabs sodium phosphates 19 gram-7 132 ml [place] DAILY PRN constipation 04/24/24 Rx gram/118 mL enema (Enema 30 days #133 mL Disposable) Hospital Stay Data Consultations 04/22/24 19:11 ED Decision to Admit Stat Diagnostic Imagining Performed 04/22/24 20:14 CT Abd and Pelvis [CT abd pelvis wo con] Urgent 04/24/24 11:[address] [CT head/brain wo con] Routine Pending Results Patient Have Any Pending Studies at Discharge: No Discharge Instructions Given to Patient (Per Discharging Provider) You were admitted for constipation. Please take your lactulose as prescribed which is 20ml three times a day Please take 1-2 capfuls of miralax everyday Please use a fleet enema every 1-2 days Please use a bisacodyl suppository every 1-2 day You must follow up with your PCP and GI physicians for refills on your medications Total Time Total Time Spent Total Time Spent (In Minutes): 115
--- NOTE | 2024-04-24 14:24 | XRay Report ---
KUB HISTORY: Acute onset abdominal pain with reported constipation constipation COMPARISON: CT 04/22/2024 FINDINGS: Nonobstructive bowel gas pattern. Gaseous distention of the large bowel. No definite radiog raphic evidence of constipation. Moderate fecal retention of the hepatic flexure. Bilateral renal ca lculi redemonstrated measuring up to approximately 7 mm on the left and 4 mm on the right. No pneumop eritoneum or pneumatosis. Cholecystectomy. No fracture. IMPRESSION: 1. Gaseous distention of the large bowel with moderate fecal retention of the hepatic flexure. 2. Bilateral nephrolithiasis redemonstrated. 3. Cholecystectomy. ACT 112: Negative or not required by law. The above report was generated using voice recognition software. It may contain grammatical, syntax o r spelling errors. Electronically signed by: Anil Friedman M.D. 04/24/2024 2:22 PM
[2024-04-24 14:57] VITALS: PULSE 63
== END 2024-04-24 15:31 | disposition home or self-care (01) | DRG 391 ==
LOC: ED 16:28 → EDINP 20:18 → 2E 20:35

== ENCOUNTER 2024-05-08 19:39 | Inpatient (IN) ==
--- NOTE | 2024-05-08 20:32 | Emergency Department Note ---
Impression & Plan Hypotension, Acute UTI, Quadriplegia, Left sided abdominal pain, Cough, Pneumonia ED Provider Note NAME: NEHEMIAS SANTOS AGE: 48 SEX: M : 1975 ARRIVES VIA: Ambulance INFORMANT: [Patient][ems] ED PROVIDER(S): [Ramo Martell MD] CHIEF COMPLAINT: Abdominal pain HISTORY OF PRESENT ILLNESS: The patient is a 48-year-old male who presents to the ED with left-sided abdominal and flank pain. He has had these issues for 3 days. In addition, he has been coughing and his cough is productive. The patient has noticed discoloration and odor to his urine. He has a suprapubic catheter and believes he may have a UTI. There has been no vomiting, no diarrhea. The patient is quadriplegic. He has been septic before. PMHx/PSHx/Social Hx: See Below PHYSICAL EXAM: GENERAL: Patient is in no acute distress. HEENT: No acute trauma, normocephalic atraumatic, mucous membranes moist, no nasal congestion. Very poor dentition. NECK: No stridor, no adenopathy, no meningismus, trachea is midline. LUNGS: Coarse breath sounds bilaterally when listening anterior. No respiratory distress. No wheezing. HEART: Without murmurs gallops or rubs, regular rate and rhythm. ABDOMEN: Soft, nontender, no peritonitis. Suprapubic Sanchez catheter noted. EXTREMITIES: No cyanosis, full range of motion of all the joints without pain or difficulty. NEUROLOGIC: Awake and alert, oriented x 3. He can move his upper extremities but the movement is limited. No lower extremity movement. SKIN: No jaundice, no diaphoresis. DIFFERENTIAL DIAGNOSIS: Sepsis, UTI, pneumonia, viral illness, pyelonephritis, diverticulitis, among others. EMERGENCY DEPARTMENT PROCEDURES: MEDICAL DECISION MAKING: There is no leukocytosis. The patient is anemic but this is a chronic finding. There was a normal platelet count. No renal failure or significant electrolyte abnormality. Lactic acid level was not elevated making severe sepsis less likely. No worrisome liver enzyme elevation. No evidence for pancreatitis. Urinalysis does show findings of infection, urine culture is pending. Respiratory bio fire was negative. Chest x-ray showed some atelectasis, no obvious focal pneumonia. Abdominal and pelvis CT does not show hydronephrosis or acute surgical process. A right lower lobe pneumonia was suspected. On exam, the patient presented hypotensive, he complained of left-sided abdominal pain. He complained of cough. He was mentating well, he was not toxic in appearance. Patient was aggressively managed given the hypotension and his history of quadriplegia. He was given 1.5 L of IV saline, he received IV Zofran, IV morphine, IV Toradol. He received IV cefepime as antibiotic coverage. Patient's blood pressure has improved, he seems more comfortable. Hospitalization is indicated. The patient appears to have an acute UTI and possibly pneumonia. This has led to his abdominal pain and his hypotension. I did speak with the patient and case management. The on-call hospitalist was consulted. Prior/Outside records/notes reviewed: Today's EMS notes describing his presentation and transfer to this hospital. Continuous Cardiac Monitoring per my interpretation: An order was placed for continuous cardiac monitoring. The monitor shows a rate of 72 with normal sinus rhythm. Imaging/x-ray results per my interpretation: Chest x-ray shows some bibasilar atelectasis, no obvious infiltrate. No CHF. Chronic Medical/Social conditions affecting care: History of quadriplegia. Care/Management discussed with: Case management, the on-call hospitalist. Level of care consideration(s): After review of the information above and other included data: --I believe the patient requires escalation of care to admission Critical Care Note: I have personally spent 44 minutes of critical care time in the direct management of this patient. This includes bedside care, interpretation of diagnostic studies, and testing, discussion with consultants, patient, and family members, and other required patient management activities. This 44 minutes is in excess of all separately billable procedures. DISPOSITION: Admission Past Med/Surg History Problem List (Updated 05/09/24 @ 01:44 by Ramo Martell MD) Pneumonia (Acute) Cough (Acute) Left sided abdominal pain (Acute) Quadriplegia (Acute) Acute UTI (Acute) Hypotension (Acute) Abdominal pain Acute UTI (Acute) Autonomic dysreflexia Constipation Hydronephrosis (Acute) Acute urinary retention (Acute) Leukocytosis (Acute) Complication, blocked suprapubic catheter Hypokalemia (Acute) Hypomagnesemia (Acute) Anemia (Acute) Quadriplegia (Acute) Sacral decubitus ulcer (Acute) Acute UTI (Acute) Hypotension (Acute) Encephalopathy Pneumonia (Acute) Complicated urinary tract infection (Acute Unknown) Change or removal of nonsurgical wound dressing Acute hypoxemic respiratory failure (Acute) Chest pain (Acute) Severe sepsis (Acute) MRSA carrier Pneumonia (Acute) Hypoxic respiratory failure (Acute) 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 Leg wound, right Leg wound, left History of pulmonary embolism Hypoxia (Acute) RSV (respiratory syncytial virus infection) Chronic pain Suprapubic catheter (Acute) Complicated UTI (urinary tract infection) (Acute) Sacral decubitus ulcer, stage IV (Acute) Chronic osteomyelitis of sacrum Medical History Abdominal pain Aspiration pneumonitis Pneumonia Paraplegia Surgical History No pertinent past surgical history Social History Smoking Status: Current every day smoker Tobacco Type: Cigarettes Cigarettes Per Day: 50-60; Second Hand Exposure: Yes; Do You Dip or Chew Tobacco: Yes; Hx Alcohol Use: Yes Alcohol type: hard liquor Hx Substance Use: Yes Non-Prescribed Medications: Crack / Cocaine and Marijuana Last Used Substance: Unknown Preferred Language: Guamanian Communication Ability: Effective 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 [employer] Consultant Required: No Beliefs That Will Affect Care: None Current Living Situation: Alone Current Living Situation Comment: alone with 28/02 home care Feels Safe at Home: Yes Assistive Devices: Hospital Bed, Mechanical Lift and Wheelchair Allergies Allergies Allergy/AdvReac Type Severity Reaction Status Date / Time No Known Allergies Allergy Verified 05/08/24 23:38 Home Meds Home Medications Medication Instructions Recorded Confirmed Lactobacillus rhamnosus GG 10 1 cap PO DAILY 04/22/24 05/08/24 billion cell capsule (Culturelle) apixaban 5 mg tablet (Eliquis) 5 mg PO BID 04/22/24 05/08/24 ascorbic acid (vitamin C) 500 mg 500 mg PO DAILY 04/22/24 05/08/24 capsule baclofen 10 mg tablet 20 mg PO TID PRN Spasms 04/22/24 05/08/24 bisacodyl 10 mg rectal suppository 10 mg AR BID 04/22/24 05/08/24 celecoxib 200 mg capsule 200 mg PO DAILY PRN Pain 04/22/24 05/08/24 collagenase clostridium histo. 250 1 applic topical DAILY 04/22/24 05/08/24 unit/gram topical ointment docusate sodium 100 mg capsule 100 mg PO BID PRN Constipation 04/22/24 05/08/24 duloxetine 60 mg capsule,delayed 60 mg PO DAILY 04/22/24 05/08/24 release famotidine 20 mg PO BID 04/22/24 05/08/24 ferrous sulfate 325 mg (65 mg 325 mg PO DAILYBB 04/22/24 05/08/24 iron) tablet gabapentin 100 mg capsule 100 mg PO TID 04/22/24 05/08/24 hydroxyzine HCl 25 mg tablet 25 mg PO DAILY PRN Anxiety 04/22/24 05/08/24 lactulose 20 gram oral packet 20 g PO TID 04/22/24 05/08/24 lidocaine 5 % topical patch 1 patch topical DAILY PRN Pain 04/22/24 05/08/24 melatonin 3 mg tablet 3 mg PO HS 04/22/24 05/08/24 midodrine 2.5 mg tablet 2.5 mg PO TID 04/22/24 05/08/24 naloxone 4 mg/actuation nasal spray 4 mg intranasal UD PRN opiod OD 04/22/24 05/08/24 oxybutynin chloride 10 mg 10 mg PO DAILY 04/22/24 05/08/24 tablet,extended release 24 hr pediatric multivitamin 1 tab PO DAILY 04/22/24 05/08/24 simethicone 80 mg chewable tablet 80 mg PO TID 04/22/24 05/08/24 sodium hypochlorite 0.25 % 1 irrig topical BID 04/22/24 05/08/24 solution (Dakin's Solution) tiotropium bromide 2.5 2 puff inhalation DAILY 04/22/24 05/08/24 mcg/actuation mist for inhalation (Spiriva Respimat) Previous Rx's Medication Instructions Recorded sennosides 8.6 mg-docusate sodium 2 tab-cap (2 x 8.6-50 mg) PO HS 04/24/24 50 mg tablet (Senokot-S) #60 tabs sodium phosphates 19 gram-7 132 ml AR DAILY PRN constipation 04/24/24 gram/118 mL enema (Enema 30 days #133 mL Disposable) Results & Data (ED) Vital Signs Vital Signs - 24 hr 05/08/24 20:03 05/08/24 20:05 05/08/24 21:32 Temperature 37.1 C Temperature Source Oral Pulse Rate 73 69 Pulse Rate [Apical] 65 Pulse Rhythm Regular Pulse Rhythm [Apical] Regular Pulse Strength [Apical] Normal Respiratory Rate 18 18 Respiratory Effort / Characteristics Non-Labored Spontaneous Non-Labored Spontaneous Respiratory Depth Normal Normal Respiratory Pattern Regular Regular Blood Pressure 85/65 L Blood Pressure [Right Arm] 109/75 Blood Pressure Mean 71 Blood Pressure Mean [Right Arm] 86 Blood Pressure Position Sitting Blood Pressure Position [Right Arm] Sitting Pulse Oximetry 93 92 Oxygen Delivery Method Room Air Room Air Sepsis Recent Fever Within 48 Hours No Sepsis New/Unexplained Change in Mental Status No Sepsis Action Taken by Nursing No Action Required 05/08/24 23:23 05/09/24 00:02 05/09/24 01:00 Temperature Temperature Source Pulse Rate 57 L Pulse Rate [Apical] 64 59 L Pulse Rhythm Pulse Rhythm [Apical] Pulse Strength [Apical] Respiratory Rate 16 16 Respiratory Effort / Characteristics Non-Labored Respiratory Depth Respiratory Pattern Regular Blood Pressure Blood Pressure [Right Arm] 111/78 115/77 Blood Pressure Mean Blood Pressure Mean [Right Arm] 89 89 Blood Pressure Position Blood Pressure Position [Right Arm] Lying Pulse Oximetry 92 91 Oxygen Delivery Method Room Air Room Air Sepsis Recent Fever Within 48 Hours Sepsis New/Unexplained Change in Mental Status Sepsis Action Taken by [facility] Medications Current Medication List: was personally reviewed by me Laboratory Data Attestation: I reviewed the patient's lab results. 05/08/24 18:44 05/08/24 18:44 Lab Results 05/08/24 05/08/24 05/08/24 Range/Units 18:44 21:34 21:35 WBC 7.97 (4.8-10.8) K/ul RBC 4.74 (4.70-6.10) M/uL Hgb 12.8 L (14.0-18.0) g/dl Hct 40.5 L (42.0-52.0) % MCV 85.4 (80.0-100.0) fL MCH 27.0 (25.0-34.0) pg MCHC 31.6 L (32.0-36.0) g/dL RDW Std Deviation 59.2 H (36.4-46.3) fL RDW Coeff of Adelia 18.8 H (11.5-14.5) % Plt Count 234 (130-400) K/uL MPV 10.1 (9.4-12.4) fL Immature Gran % (Auto) 0.1 % Neut % (Auto) 61.5 % Lymph % (Auto) 26.2 % [place] % (Auto) 8.3 % Eos % (Auto) 2.8 % Baso % (Auto) 1.1 % Neut # (Auto) 4.90 (1.40-6.50) K/uL Lymph # (Auto) 2.09 (1.20-3.40) K/uL [place] # (Auto) 0.66 H (0.11-0.59) K/uL Eos # (Auto) 0.22 (0.00-0.50) K/uL Baso # (Auto) 0.09 (0.00-0.20) K/uL Immature Gran # (Auto) 0.01 (0.01-0.20) K/uL Sodium 138 (136-145) mmol/L Potassium 4.0 (3.5-5.1) mmol/L Chloride 106 (98-107) mmol/L Carbon Dioxide 24 (21-32) mmol/L Anion Gap 8 (3-11) BUN 12 (6-23) mg/dl Creatinine 0.44 L (0.6-1.4) mg/dl Est Cr Clr Drug Dosing 234.8 ml/min Est GFR ( Amer) > 150.0 ml/min Est GFR (Non-Af Amer) 136.0 ml/min BUN/Creatinine Ratio 27.3 H (10-20) Glucose 99 (70-99(Fasting)) mg/dl Lactate 0.5 (0.4-2.0) mmol/L Calcium 9.6 (8.6-10.3) mg/dl Magnesium 2.1 (1.7-2.4) mg/dl Total Bilirubin 0.4 (0.2-1.0) mg/dl AST 15 (13-39) U/L ALT 10 (7-52) U/L Alkaline Phosphatase 140 H (34-104) U/L Total Protein 7.0 (6.0-8.3) gm/dl Albumin 4.0 (3.4-5.0) gm/dl Globulin 3.0 (2.5-4.0) gm/dl Albumin/Globulin Ratio 1.3 (0.9-2) Lipase 14 (11-82) U/L Urine Color Yellow Urine Appearance Turbid A (Clear) Urine pH 7.5 (4.5-7.5) Ur Specific Roxie 1.017 (1.000-1.030) Urine Protein 1+ H (Negative) Urine Glucose (UA) Negative (Negative) Urine Ketones Negative (Negative) Urine Blood 2+ H (Negative) Urine Nitrite Negative (Negative) Urine Bilirubin Negative (Negative) Urine Urobilinogen Negative (Negative) Ur Leukocyte Esterase 3+ H (Negative) Urine WBC (Auto) >50 H (0-5) /hpf Urine RBC (Auto) >20 H (0-2) /hpf U Hyaline Cast (Auto) 11-20 H (0-2) /lpf U Epithel Cells (Auto) 0-2 (0-2) /hpf Urine Bacteria (Auto) 4+ H (None Seen) Calcium Oxalate Crystal Present A (None Prsent) Amorphous Sediment Present A (None Prsent) Adenovirus (PCR) Not Detected (NotDetected) B. pertussis DNA (PCR) Not Detected (NotDetected) B.parapertussis DNA PCR Not Detected (NotDetected) C. pneumoniae DNA (PCR) Not Detected (NotDetected) Coronavirus OC43 (PCR) Not Detected (NotDetected) Coronavirus HKU1 (PCR) Not Detected (NotDetected) Coronavirus 229E (PCR) Not Detected (NotDetected) SARS-CoV-2 (PCR) Not Detected (NotDetected) Coronavirus NL63 (PCR) Not Detected (NotDetected) Human Metapneumovir PCR Not Detected (NotDetected) Influenza Type A (PCR) Not Detected (NotDetected) Influenza Type B (PCR) Not Detected (NotDetected) M. pneumoniae (PCR) Not Detected (NotDetected) Parainfluenza 1 (PCR) Not Detected (NotDetected) Parainfluenza 2 (PCR) Not Detected (NotDetected) Parainfluenza 3 (PCR) Not Detected (NotDetected) Parainfluenza 4 (PCR) Not Detected (NotDetected) RSV (PCR) Not Detected (NotDetected) Entero/Rhino (PCR) Not Detected (NotDetected) Administered Medications Sodium Chloride (Nss) 1,000 mls @ 80 mls/hr IV .[id number] ONE Stop: 05/09/24 13:24 Last Admin: 05/09/24 01:07 Dose: 80 mls/hr Documented By: CDM Discontinued Medications Sodium Chloride (Nss) 1,000 mls @ 999 mls/hr IV .[id number] ONE Stop: 05/08/24 21:08 Last Infusion: 05/08/24 21:57 Dose: Infused Documented By: Admin: 05/08/24 20:49 Dose: 999 mls/hr Documented By: JENNIFER Cefepime HCl (Maxipime) 2,000 mg in 20 mls @ 5 mls/min IV NOW STA; Protocol Stop: 05/08/24 20:13 Last Admin: 05/08/24 20:49 Dose: 5 mls/min Documented By: JENNIFER Sodium Chloride (Nss) 500 mls @ 999 mls/hr IV .Q31M ONE Stop: 05/08/24 23:37 Last Infusion: 05/09/24 00:00 Dose: Infused Documented By: Admin: 05/08/24 23:18 Dose: 999 mls/hr Documented By: HONG Ioversol (Optiray 320 100ml) 90 ml IV ONCE ONE Stop: 05/08/24 23:10 Last Admin: 05/08/24 23:09 Dose: 90 ml Documented By: ANNABELLE Ketorolac Tromethamine (Ketorolac Tromethamine 15 Mg/Ml Vial) 15 mg IV NOW ONE Stop: 05/08/24 23:46 Last Admin: 05/09/24 00:21 Dose: 15 mg Documented By: AN Morphine Sulfate (Morphine Sulfate 4 Mg/Ml 1 Ml Carp\Vial) 4 mg IV NOW STA Stop: 05/08/24 20:58 Last Admin: 05/08/24 21:08 Dose: 4 mg Documented By: JENNIFER Ondansetron HCl (Ondansetron Inj 2 Mg/Ml 2 Ml Vial) 4 mg IV NOW STA Stop: 05/08/24 20:58 Last Admin: 05/08/24 21:08 Dose: 4 mg Documented By: SNS Imaging Data Radiologist's Impression: Abdomen/Pelvis CT 05/08/24 20:16 Exam(s): CT ABDOMEN + PELVIS With Contrast IV Amt: 90 ml opti 320 EXAM: CT Abdomen and Pelvis With Intravenous Contrast CLINICAL HISTORY: Reason for exam: left sided abd pain, quad. TECHNIQUE: Axial computed tomography images of the abdomen and pelvis with intravenous contrast. CTDI is 37.13 mGy and DLP is 2097.71 mGy-cm. Automated exposure control was utilized for the study. A dose lowering technique was utilized adhering to the principles of ALARA. CONTRAST: Patient received 90 ml opti 320 of IV contrast COMPARISON: 04/22/2024 FINDINGS: Lung bases: Unremarkable. No mass. No consolidation. Pleural space: Trace left pleural effusion. Right lower lobe pneumonia ABDOMEN: Liver: Unremarkable. No mass. Gallbladder and bile ducts: Postoperative changes prior cholecystectomy. No ductal dilation. Pancreas: Unremarkable. No mass. No ductal dilation. Spleen: Unremarkable. No splenomegaly. Adrenals: Unremarkable. No mass. Kidneys and ureters: Left sided nephrolithiasis without hydronephrosis. Stomach and bowel: Unremarkable. No obstruction. No mucosal thickening. PELVIS: Appendix: No findings to suggest acute appendicitis. Bladder: Suprapubic catheter present. Reproductive: Unremarkable as visualized. ABDOMEN and PELVIS: Intraperitoneal space: Unremarkable. No free air. No significant fluid collection. Bones/joints: No acute fracture. No dislocation. Soft tissues: Unremarkable. Vasculature: Unremarkable. No abdominal aortic aneurysm. Lymph nodes: Unremarkable. No enlarged lymph nodes. IMPRESSION: Trace left pleural effusion. Right lower lobe pneumonia Electronically signed by: Eric Al MD 05/09/24 01:41 AM Discharge Plan Visit Data Chief Complaint: Abdominal Pain Stated Complaint: ABDOMINAL PAIN, URINARY SX, COUGH ED Provider: Ramo Martell Discharge Problem: Hypotension, Acute UTI, Quadriplegia, Left sided abdominal pain, Cough, Pneumonia Patient Disposition: Admitted As Inpatient Condition: Fair Forms Stand Alone Forms: [employer] Prescriptions Prescriptions: No Action celecoxib 200 mg capsule 200 mg PO DAILY PRN (Reason: Pain) baclofen 10 mg tablet 20 mg PO TID PRN (Reason: Spasms) lidocaine 5 % adhesive patch,medicated 1 patch topical DAILY PRN (Reason: Pain) docusate sodium 100 mg capsule 100 mg PO BID PRN (Reason: Constipation) hydroxyzine HCl 25 mg tablet 25 mg PO DAILY PRN (Reason: Anxiety) gabapentin 100 mg capsule 100 mg PO TID Culturelle 10 billion cell capsule 1 cap PO DAILY Spiriva Respimat 2.5 mcg/actuation mist 2 puff INHALATION DAILY Eliquis 5 mg tablet 5 mg PO BID pediatric multivitamin Tablet,Chewable 1 tab PO DAILY melatonin 3 mg Tablet 3 mg PO HS bisacodyl 10 mg Suppository 10 mg AR BID midodrine 2.5 mg Tablet 2.5 mg PO TID Rx Instructions: do not give last dose of day after 6PM or within 4 hrs of bedtime to give at 0700, 1200 and 1700 lactulose 20 gram Packet 20 g PO TID simethicone 80 mg Tablet,Chewable 80 mg PO TID Dakin's Solution 0.25 % Solution 1 irrig TOPICAL BID ascorbic acid (vitamin C) 500 mg Capsule 500 mg PO DAILY famotidine 20 mg 20 mg PO BID oxybutynin chloride 10 mg Tablet Extended Release 24hr 10 mg PO DAILY ferrous sulfate 325 mg (65 mg iron) Tablet 325 mg PO DAILYBB collagenase clostridium histo. 250 unit/gram Ointment 1 applic TOPICAL DAILY duloxetine 60 mg Capsule,Delayed Release(Dr/Ec) 60 mg PO DAILY naloxone 4 mg/actuation [place],Non-Aerosol 4 mg INTRANASAL UD PRN (Reason: opiod OD) Rx Instructions: 1 spray intranasal prn opiod OD Enema Disposable 19-7 gram/118 mL Enema 132 ml AR DAILY PRN (Reason: constipation) 30 Days Qty: 133 5RF sennosides-docusate sodium [Senokot-S] 8.6-50 mg Tablet 2 tab-cap PO HS Qty: 60 0RF Referrals Referrals: Chay Aguilar DO [Primary Care Provider] - Discharge Problem: Hypotension Qualifiers: Hypotension type: unspecified hypotension type Qualified Code(s): I95.9 - Hypotension, unspecified Cough Qualifiers: Cough type: acute Qualified Code(s): R05.1 - Acute cough Pneumonia Qualifiers: Pneumonia type: due to unspecified organism Laterality: right Lung location: l ower lobe of lung Qualified Code(s): J18.9 - Pneumonia, unspecified organism
[2024-05-08] MEDS: SODIUM CHLORIDE 0.9% 1,000 ML IV ONE (20:49)
[2024-05-08] MEDS: CEFEPIME 2,000 MG/20 ML VIAL IV STA (20:49)
[2024-05-08] MEDS: ONDANSETRON INJ 2 MG/ML 2 ML VIAL IV STA (21:08)
[2024-05-08] MEDS: MoRPHine SULFATE 4 MG/ML 1 ML CARP\\VIAL IV STA (21:08)
[2024-05-08 21:16] LABS: Anion Gap 8 (3-11); Bilirubin,Total 0.4 mg/dl (0.2-1.0); Calcium 9.6 mg/dl (8.6-10.3); Carbon Dioxide 24 mmol/L (21-32); Chloride 106 mmol/L (98-107); Magnesium 2.1 mg/dl (1.7-2.4); Sodium 138 mmol/L (136-145)
[2024-05-08 21:20] LABS: Basophils # (auto) 0.09 K/uL (0.00-0.20); Basophils % (auto) 1.1 %; Eosinophils # (auto) 0.22 K/uL (0.00-0.50); Eosinophils % (auto) 2.8 %; Hematocrit (blood only) 40.5 % (42.0-52.0); Hemoglobin 12.8 g/dl (14.0-18.0); Immature Granulocytes # (auto) 0.01 K/uL (0.01-0.20); Immature Granulocytes % (auto) 0.1 %; Lymphocytes # (auto) 2.09 K/uL (1.20-3.40); Lymphocytes % (auto) 26.2 %; Mean Corpuscular Hgb Conc 31.6 g/dL (32.0-36.0); Mean Corpuscular Volume 85.4 fL (80.0-100.0); Mean Platelet Volume 10.1 fL (9.4-12.4); Monocytes # (auto) 0.66 K/uL (0.11-0.59); Monocytes % (auto) 8.3 %; Neutrophils % (auto) 61.5 %; Platelet Count 234 K/uL (130-400); RDW Coefficient of Variation 18.8 % (11.5-14.5); RDW Standard Deviation 59.2 fL (36.4-46.3); Red Blood Count 4.74 M/uL (4.70-6.10); White Blood Count 7.97 K/ul (4.8-10.8)
[2024-05-08 21:22] LABS: Alanine Aminotransferase 10 U/L (7-52); Albumin Globulin Ratio 1.3 (0.9-2); Alkaline Phosphatase 140 U/L (34-104); Aspartate Aminotransferase 15 U/L (13-39); BUN Creatinine Ratio 27.3 (10-20); Blood Urea Nitrogen 12 mg/dl (6-23); Creatinine Clr Calc Pharmacy 234.8 ml/min; Est GFR (African American) > 150.0 ml/min; Glucose 99 mg/dl (70-99(Fasting)); Lipase 14 U/L (11-82)
[2024-05-08 21:23] LABS: Appearance Urine Turbid (Clear); Bacteria Urine Automated 4+ (None Seen); Bilirubin Urine Negative (Negative); Blood Urine 2+ (Negative); Color Urine Yellow; Epithelial Cell Urine Auto 0-2 /hpf (0-2); Glucose Urine UA Negative (Negative); Ketones Urine Negative (Negative); Leukocyte Esterase Urine 3+ (Negative); Nitrite Urine Negative (Negative); Protein Urine 1+ (Negative); RBC Urine Automated >20 /hpf (0-2); Specific Gravity Urine 1.017 (1.000-1.030); Urobilinogen Urine Negative (Negative); WBC Urine Automated >50 /hpf (0-5); pH Urine 7.5 (4.5-7.5)
[2024-05-08 21:33] LABS: Amorphous Sediment Urine Present (None Prsent)
[2024-05-08 21:36] LABS: Calcium Oxalate Crystals Urine Present (None Prsent)
[2024-05-08 22:35] LABS: Adenovirus PCR Not Detected (NotDetected); Bordetella parapertussis PCR Not Detected (NotDetected); Bordetella pertussis PCR Not Detected (NotDetected); Chlamydia pneumoniae PCR Not Detected (NotDetected); Coronavirus 229E PCR Not Detected (NotDetected); Coronavirus CoV-2 (COVID19)PCR Not Detected (NotDetected); Coronavirus HKU1 PCR Not Detected (NotDetected); Coronavirus NL63 PCR Not Detected (NotDetected); Coronavirus OC43PCR Not Detected (NotDetected); Human Metapneumovirus PCR Not Detected (NotDetected); Influenza A PCR Not Detected (NotDetected); Influenza B PCR Not Detected (NotDetected); Mycoplasma pneumoniae PCR Not Detected (NotDetected); Parainfluenza Virus 1 PCR Not Detected (NotDetected); Parainfluenza Virus 2 PCR Not Detected (NotDetected); Parainfluenza Virus 3 PCR Not Detected (NotDetected); Parainfluenza Virus 4 PCR Not Detected (NotDetected); Respiratory Syncytial VirusPCR Not Detected (NotDetected); Rhinovirus/Enterovirus PCR Not Detected (NotDetected)
[2024-05-08] MEDS: OPTIRAY 320 100ml IV ONE (23:09)
[2024-05-08] MEDS: SODIUM CHLORIDE 0.9% 500 ML IV ONE (23:18)
[2024-05-09] MEDS: KETOROLAC TROMETHAMINE 15 MG/ML VIAL IV ONE (00:21)
[2024-05-09] MEDS ORDERED: ACETAMINOPHEN 325 MG TAB PO PRN (00:54)
[2024-05-09] MEDS: SODIUM CHLORIDE 0.9% 1,000 ML IV ONE ×2 (01:07→20:10)
--- NOTE | 2024-05-09 01:33 | History & Physical Report ---
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 [employer] Full code Text document was generated using Filtr8 voice recognition software. It may contain grammatical or spelling errors. Kindly contact undersigned for clarification of any documentation item in question. History of Present Illness Chief Complaint: Left abdominal pain Primary Care Provider: Chay Goins Capp, DO History obtained from patient, ED provider and records. 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 Multiple admissions over the last couple of months. Recent [facility] confinement April 22 to 2023 for abdominal pain attributed to proctitis. Few days history of achy left-sided flank pain. Usual cough symptoms without chest pain or SOB. Denies hematuria. No fever, no chills. SBP 80s upon arrival at the ER. Cefepime administered at the ER. Medical History as above Surgical History : Ankle surgery, neck surgery, urologic procedures, arm surgery, appendectomy, leg abscess drainage/metatarsal surgery, cholecystectomy Family History : Heart disease Personal/Social history : 2 packs daily, occasional EtOH intake, disabled Allergies Allergy/AdvReac Type Severity Reaction Status Date / Time No Known Allergies Allergy Verified 05/08/24 23:38 Home Medications Medication Instructions Recorded Confirmed Type Lactobacillus rhamnosus GG 10 1 cap PO DAILY 04/22/24 05/08/24 History billion cell capsule (Culturelle) apixaban 5 mg tablet (Eliquis) 5 mg PO BID 04/22/24 05/08/24 History ascorbic acid (vitamin C) 500 mg 500 mg PO DAILY 04/22/24 05/08/24 History capsule baclofen 10 mg tablet 20 mg PO TID PRN Spasms 04/22/24 05/08/24 History bisacodyl 10 mg rectal suppository 10 mg WA BID 04/22/24 05/08/24 History celecoxib 200 mg capsule 200 mg PO DAILY PRN Pain 04/22/24 05/08/24 History collagenase clostridium histo. 250 1 applic topical DAILY 04/22/24 05/08/24 History unit/gram topical ointment docusate sodium 100 mg capsule 100 mg PO BID PRN Constipation 04/22/24 05/08/24 History duloxetine 60 mg capsule,delayed 60 mg PO DAILY 04/22/24 05/08/24 History release famotidine 20 mg PO BID 04/22/24 05/08/24 History ferrous sulfate 325 mg (65 mg 325 mg PO DAILYBB 04/22/24 05/08/24 History iron) tablet gabapentin 100 mg capsule 100 mg PO TID 04/22/24 05/08/24 History hydroxyzine HCl 25 mg tablet 25 mg PO DAILY PRN Anxiety 04/22/24 05/08/24 History lactulose 20 gram oral packet 20 g PO TID 04/22/24 05/08/24 History lidocaine 5 % topical patch 1 patch topical DAILY PRN Pain 04/22/24 05/08/24 History melatonin 3 mg tablet 3 mg PO HS 04/22/24 05/08/24 History midodrine 2.5 mg tablet 2.5 mg PO TID 04/22/24 05/08/24 History naloxone 4 mg/actuation nasal spray 4 mg intranasal UD PRN opiod OD 04/22/24 05/08/24 History oxybutynin chloride 10 mg 10 mg PO DAILY 04/22/24 05/08/24 History tablet,extended release 24 hr pediatric multivitamin 1 tab PO DAILY 04/22/24 05/08/24 History simethicone 80 mg chewable tablet 80 mg PO TID 04/22/24 05/08/24 History sodium hypochlorite 0.25 % 1 irrig topical BID 04/22/24 05/08/24 History solution (Dakin's Solution) tiotropium bromide 2.5 2 puff inhalation DAILY 04/22/24 05/08/24 History mcg/actuation mist for inhalation (Spiriva Respimat) sennosides 8.6 mg-docusate sodium 2 tab-cap (2 x 8.6-50 mg) PO HS 04/24/24 05/08/24 Rx 50 mg tablet (Senokot-S) #60 tabs sodium phosphates 19 gram-7 132 ml WA DAILY PRN constipation 04/24/24 05/08/24 Rx gram/118 mL enema (Enema 30 days #133 mL Disposable) Past Med/Surg History Problem List (Updated 05/09/24 @ 02:43 by Hope Liu) Pneumonia (Acute) Cough (Acute) Left sided abdominal pain (Acute) Quadriplegia (Acute) Acute UTI (Acute) Hypotension (Acute) Abdominal pain Acute UTI (Acute) Autonomic dysreflexia Constipation Hydronephrosis (Acute) Acute urinary retention (Acute) Leukocytosis (Acute) Complication, blocked suprapubic catheter Hypokalemia (Acute) Hypomagnesemia (Acute) Anemia (Acute) Quadriplegia (Acute) Sacral decubitus ulcer (Acute) Acute UTI (Acute) Hypotension (Acute) Encephalopathy Pneumonia (Acute) Complicated urinary tract infection (Acute Unknown) Change or removal of nonsurgical wound dressing Acute hypoxemic respiratory failure (Acute) Chest pain (Acute) Severe sepsis (Acute) MRSA carrier Pneumonia (Acute) Hypoxic respiratory failure (Acute) 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 Leg wound, right Leg wound, left History of pulmonary embolism Hypoxia (Acute) RSV (respiratory syncytial virus infection) Chronic pain Suprapubic catheter (Acute) Complicated UTI (urinary tract infection) (Acute) Sacral decubitus ulcer, stage IV (Acute) Chronic osteomyelitis of sacrum Medical History Abdominal pain Aspiration pneumonitis Pneumonia Paraplegia Surgical History No pertinent past surgical history Social History Smoking Status: Current every day smoker Tobacco Type: Cigarettes Cigarettes Per Day: 50-60; Second Hand Exposure: Yes; Do You Dip or Chew Tobacco: Yes; Hx Alcohol Use: Yes Alcohol type: hard liquor Hx Substance Use: Yes Non-Prescribed Medications: Crack / Cocaine and Marijuana Last Used Substance: Unknown Preferred Language: Malagasy Communication Ability: Effective Chief Radiation Therapist Required: No Beliefs That Will Affect Care: None Current Living Situation: Alone Current Living Situation Comment: alone with 28/02 home care Other Information That Helps Us Care for You: No Feels Safe at Home: Yes Safety Concerns: Feels Safe At This Time Assistive Devices: Hospital Bed, Mechanical Lift and Wheelchair Review of Systems Review of Systems: As per HPI, all other systems reviewed and negative Physical Exam Physical Exam: GENERAL: uncomfortable, irate, looks older than stated age, unkempt, no respiratory distress SKIN: Pallor, cool HEENT: Alopecia, pale palpebral conjunctivae, no ptosis, dry buccal mucosa NECK : Some limitation in motion, no tenderness CHEST : Decreased breath sounds, no tenderness HEART : RRR, no obvious murmurs ABDOMEN: Some distention, minimal left-sided abdominal tenderness EXTREMITIES : Minimal LE swelling/tenderness, posterior surfaces not examined NEUROLOGIC : Coherent, no facial asymmetry, MMTS BUE 3/5, BLE 0 Results & Data Results & Data Vital Signs (Past 12 Hours) Vital Signs Temp Pulse Pulse Resp BP BP Pulse Ox 05/09/24 01:00 59 L 16 115/77 91 05/09/24 00:02 57 L 05/08/24 23:23 64 16 111/78 92 05/08/24 21:32 65 18 109/75 92 05/08/24 20:05 69 05/08/24 20:03 37.1 C 73 18 85/65 L 93 O2 Del Method 05/09/24 01:00 Room Air 05/09/24 00:02 05/08/24 23:23 Room Air 05/08/24 21:32 Room Air 05/08/24 20:05 05/08/24 20:03 Room Air Laboratory Results Laboratory Results WBC 7.97 K/ul (4.8-10.8) 05/08/24 18:44 RBC 4.74 M/uL (4.70-6.10) 05/08/24 18:44 Hgb 12.8 g/dl (14.0-18.0) L 05/08/24 18:44 Hct 40.5 % (42.0-52.0) L 05/08/24 18:44 MCV 85.4 fL (80.0-100.0) 05/08/24 18:44 MCH 27.0 pg (25.0-34.0) 05/08/24 18:44 MCHC 31.6 g/dL (32.0-36.0) L 05/08/24 18:44 RDW Std Deviation 59.2 fL (36.4-46.3) H 05/08/24 18:44 RDW Coeff of [place] 18.8 % (11.5-14.5) H 05/08/24 18:44 Plt Count 234 K/uL (130-400) 05/08/24 18:44 MPV 10.1 fL (9.4-12.4) 05/08/24 18:44 Immature Gran % (Auto) 0.1 % 05/08/24 18:44 Neut % (Auto) 61.5 % 05/08/24 18:44 Lymph % (Auto) 26.2 % 05/08/24 18:44 [place] % (Auto) 8.3 % 05/08/24 18:44 Eos % (Auto) 2.8 % 05/08/24 18:44 Baso % (Auto) 1.1 % 05/08/24 18:44 Neut # (Auto) 4.90 K/uL (1.40-6.50) 05/08/24 18:44 Lymph # (Auto) 2.09 K/uL (1.20-3.40) 05/08/24 18:44 [place] # (Auto) 0.66 K/uL (0.11-0.59) H 05/08/24 18:44 Eos # (Auto) 0.22 K/uL (0.00-0.50) 05/08/24 18:44 Baso # (Auto) 0.09 K/uL (0.00-0.20) 05/08/24 18:44 Immature Gran # (Auto) 0.01 K/uL (0.01-0.20) 05/08/24 18:44 Sodium 138 mmol/L (136-145) 05/08/24 18:44 Potassium 4.0 mmol/L (3.5-5.1) 05/08/24 18:44 Chloride 106 mmol/L (98-107) 05/08/24 18:44 Carbon Dioxide 24 mmol/L (21-32) 05/08/24 18:44 Anion Gap 8 (3-11) 05/08/24 18:44 BUN 12 mg/dl (6-23) 05/08/24 18:44 Creatinine 0.44 mg/dl (0.6-1.4) L 05/08/24 18:44 Est Cr Clr Drug Dosing 234.8 ml/min 05/08/24 18:44 Est GFR ( Amer) > 150.0 ml/min 05/08/24 18:44 Est GFR (Non-Af Amer) 136.0 ml/min 05/08/24 18:44 BUN/Creatinine Ratio 27.3 (10-20) H 05/08/24 18:44 Glucose 99 mg/dl (70-99(Fasting)) 05/08/24 18:44 Lactate 0.5 mmol/L (0.4-2.0) 05/08/24 21:34 Calcium 9.6 mg/dl (8.6-10.3) 05/08/24 18:44 Magnesium 2.1 mg/dl (1.7-2.4) 05/08/24 18:44 Total Bilirubin 0.4 mg/dl (0.2-1.0) 05/08/24 18:44 AST 15 U/L (13-39) 05/08/24 18:44 ALT 10 U/L (7-52) 05/08/24 18:44 Alkaline Phosphatase 140 U/L (34-104) H 05/08/24 18:44 Total Protein 7.0 gm/dl (6.0-8.3) 05/08/24 18:44 Albumin 4.0 gm/dl (3.4-5.0) 05/08/24 18:44 Globulin 3.0 gm/dl (2.5-4.0) 05/08/24 18:44 Albumin/Globulin Ratio 1.3 (0.9-2) 05/08/24 18:44 Lipase 14 U/L (11-82) 05/08/24 18:44 Urine Color Yellow 05/08/24 18:44 Urine Appearance Turbid (Clear) A 05/08/24 18:44 Urine pH 7.5 (4.5-7.5) 05/08/24 18:44 Ur Specific [place] 1.017 (1.000-1.030) 05/08/24 18:44 Urine Protein 1+ (Negative) H 05/08/24 18:44 Urine Glucose (UA) Negative (Negative) 05/08/24 18: Urine Ketones Negative (Negative) 05/08/24 18: Urine Blood 2+ (Negative) H 05/08/24 18:44 Urine Nitrite Negative (Negative) 05/08/24 18:44 Urine Bilirubin Negative (Negative) 05/08/24 18:44 Urine Urobilinogen Negative (Negative) 05/08/24 18:44 Ur Leukocyte Esterase 3+ (Negative) H 05/08/24 18:44 Urine WBC (Auto) >50 /hpf (0-5) H 05/08/24 18:44 Urine RBC (Auto) >20 /hpf (0-2) H 05/08/24 18:44 U Hyaline Cast (Auto) 11-20 /lpf (0-2) H 05/08/24 18:44 U Epithel Cells (Auto) 0-2 /hpf (0-2) 05/08/24 18:44 Urine Bacteria (Auto) 4+ (None Seen) H 05/08/24 18:44 Calcium Oxalate Crystal Present (None Prsent) A 05/08/24 18:44 Amorphous Sediment Present (None Prsent) A 05/08/24 18:44 Adenovirus (PCR) Not Detected (NotDetected) 05/08/24 21:35 B. pertussis DNA (PCR) Not Detected (NotDetected) 05/08/24 21:35 B.parapertussis DNA PCR Not Detected (NotDetected) 05/08/24 21:35 C. pneumoniae DNA (PCR) Not Detected (NotDetected) 05/08/24 21:35 Coronavirus OC43 (PCR) Not Detected (NotDetected) 05/08/24 21:35 Coronavirus HKU1 (PCR) Not Detected (NotDetected) 05/08/24 21:35 Coronavirus 229E (PCR) Not Detected (NotDetected) 05/08/24 21:35 SARS-CoV-2 (PCR) Not Detected (NotDetected) 05/08/24 21:35 Coronavirus NL63 (PCR) Not Detected (NotDetected) 05/08/24 21:35 Human Metapneumovir PCR Not Detected (NotDetected) 05/08/24 21:35 Influenza Type A (PCR) Not Detected (NotDetected) 05/08/24 21:35 Influenza Type B (PCR) Not Detected (NotDetected) 05/08/24 21:35 M. pneumoniae (PCR) Not Detected (NotDetected) 05/08/24 21:35 Parainfluenza 1 (PCR) Not Detected (NotDetected) 05/08/24 21:35 Parainfluenza 2 (PCR) Not Detected (NotDetected) 05/08/24 21:35 Parainfluenza 3 (PCR) Not Detected (NotDetected) 05/08/24 21:35 Parainfluenza 4 (PCR) Not Detected (NotDetected) 05/08/24 21:35 RSV (PCR) Not Detected (NotDetected) 05/08/24 21:35 Entero/Rhino (PCR) Not Detected (NotDetected) 05/08/24 21:35 CT abdomen pelvis: Trace left pleural effusion. Right lower lobe pneumonia Diagnostic Findings EKG as per my interpretation :Rate 70, NSR, LAD, LAFB, no ischemia (1) Pneumonia Laterality: right Lung location: lower lobe of lung Pneumonia type: due to unspecified organism Qualified Code(s): J18.9 - Pneumonia, unspecified organism
[2024-05-09] MEDS ORDERED: DOCUSATE SODIUM 100 MG CAP PO PRN (01:37)
[2024-05-09] MEDS ORDERED: SOD PHOSPHATE/SOD BIPHOSPHATE ENEMA 132 ML BTL PR PRN (01:37)
--- NOTE | 2024-05-09 01:42 | CT Scan Report ---
Exam(s): CT ABDOMEN + PELVIS With Contrast IV Amt: 90 ml opti 320 EXAM: CT Abdomen and Pelvis With Intravenous Contrast CLINICAL HISTORY: Reason for exam: left sided abd pain, quad. TECHNIQUE: Axial computed tomography images of the abdomen and pelvis with intravenous contrast. CTDI is 37.13 mGy and DLP is 2097.71 mGy-cm. Automated exposure control was utilized for the study. A dose lowering technique was utilized adhering to the principles of ALARA. CONTRAST: Patient received 90 ml opti 320 of IV contrast COMPARISON: 04/22/2024 FINDINGS: Lung bases: Unremarkable. No mass. No consolidation. Pleural space: Trace left pleural effusion. Right lower lobe pneumonia ABDOMEN: Liver: Unremarkable. No mass. Gallbladder and bile ducts: Postoperative changes prior cholecystectomy. No ductal dilation. Pancreas: Unremarkable. No mass. No ductal dilation. Spleen: Unremarkable. No splenomegaly. Adrenals: Unremarkable. No mass. Kidneys and ureters: Left sided nephrolithiasis without hydronephrosis. Stomach and bowel: Unremarkable. No obstruction. No mucosal thickening. PELVIS: Appendix: No findings to suggest acute appendicitis. Bladder: Suprapubic catheter present. Reproductive: Unremarkable as visualized. ABDOMEN and PELVIS: Intraperitoneal space: Unremarkable. No free air. No significant fluid collection. Bones/joints: No acute fracture. No dislocation. Soft tissues: Unremarkable. Vasculature: Unremarkable. No abdominal aortic aneurysm. Lymph nodes: Unremarkable. No enlarged lymph nodes. IMPRESSION: Trace left pleural effusion. Right lower lobe pneumonia Electronically signed by: Eric Al MD 05/09/24 01:41 AM
[2024-05-09] MEDS: PIPERACILLIN/TAZOBACTAM 4.5 GM/100 ML BAG IV STA (02:04)
[2024-05-09 04:44] LABS: Amphetamines+Metham, Urine Neg (Neg); Barbiturates, Urine Neg (Neg); Benzodiazepine, Urine Neg (Neg); Cocaine, Urine Neg (Neg); Fentanyl, Urine Neg (Neg); MDMA (Ecstacy), Urine Neg (Neg); Marijuana, Urine Pos (Neg); Methadone, Urine Neg (Neg); Opiate, Urine Pos (Neg); Phencyclidine, Urine Neg (Neg)
--- NOTE | 2024-05-09 07:07 | XRay Report ---
XR chest 1V not portable CLINICAL HISTORY: Abdominal pain. COMPARISON STUDY: Chest CT February 25, 2024. Chest radiograph April 15, 2024. FINDINGS: Postoperative findings within the spine are partially imaged. Lung volumes are normal. Line ar bibasilar densities represent atelectasis. There is no pneumothorax or pleural effusion. Cardiac s ize is stable. Mediastinal contours are normal. There is no evidence for pulmonary edema. IMPRESSION: No acute cardiopulmonary findings. ACT 112: Negative or not required by law. Electronically signed by: Teja Moreno M.D. 05/09/2024 7:06 AM
[2024-05-09 09:57] LABS: Basophils # (auto) 0.05 K/uL (0.00-0.20); Basophils % (auto) 0.7 %; Eosinophils # (auto) 0.17 K/uL (0.00-0.50); Eosinophils % (auto) 2.3 %; Hematocrit (blood only) 41.9 % (42.0-52.0); Hemoglobin 13.2 g/dl (14.0-18.0); Immature Granulocytes # (auto) 0.02 K/uL (0.01-0.20); Immature Granulocytes % (auto) 0.3 %; Lymphocytes # (auto) 1.16 K/uL (1.20-3.40); Lymphocytes % (auto) 15.7 %; Mean Corpuscular Hemoglobin 26.7 pg (25.0-34.0); Mean Corpuscular Hgb Conc 31.5 g/dL (32.0-36.0); Mean Corpuscular Volume 84.8 fL (80.0-100.0); Mean Platelet Volume 10.2 fL (9.4-12.4); Monocytes # (auto) 0.41 K/uL (0.11-0.59); Monocytes % (auto) 5.5 %; Neutrophils # (auto) 5.59 K/uL (1.40-6.50); Neutrophils % (auto) 75.5 %; Platelet Count 206 K/uL (130-400); RDW Coefficient of Variation 18.5 % (11.5-14.5); Red Blood Count 4.94 M/uL (4.70-6.10)
[2024-05-09 10:11] LABS: Anion Gap 8 (3-11); BUN Creatinine Ratio 26.1 (10-20); Blood Urea Nitrogen 12 mg/dl (6-23); Calcium 9.3 mg/dl (8.6-10.3); Carbon Dioxide 23 mmol/L (21-32); Chloride 108 mmol/L (98-107); Creatinine Clr Calc Pharmacy 224.6 ml/min; Est GFR (African American) > 150.0 ml/min; Est GFR (Non-African American) 133.5 ml/min; Glucose 97 mg/dl (70-99(Fasting)); Potassium 3.6 mmol/L (3.5-5.1); Sodium 139 mmol/L (136-145)
[2024-05-09] MEDS: MULTIVITAMIN CHEWABLE TAB PO SCH (10:20)
[2024-05-09] MEDS: MIDODRINE HCL 2.5 MG TAB PO SCH (10:20)
[2024-05-09] MEDS: ADVANCED PROBIOTIC 625 MG CAPSULE PO SCH (10:21)
[2024-05-09] MEDS: OXYBUTYNIN CHLORIDE XL 5 MG TABCR PO SCH (10:21)
[2024-05-09] MEDS: FAMOTIDINE 20 MG TAB PO SCH (10:22)
[2024-05-09] MEDS: PIPERACILLIN/TAZOBACTAM 4.5 GM/100 ML BAG IV SCH (10:22)
[2024-05-09] MEDS: BACLOFEN 20 MG TAB PO PRN (10:22)
[2024-05-09] MEDS: FERROUS SULFATE 325 MG TAB PO SCH (10:22)
[2024-05-09] MEDS: APIXABAN 5 MG TABLET PO SCH (10:22)
[2024-05-09] MEDS: GABAPENTIN 100 MG CAP PO SCH (10:23)
[2024-05-09] MEDS: UMECLIDINIUM BROMIDE 62.5MCG/BLISTER 7 PUFFS/INHALER INH SCH (10:25)
[2024-05-09] MEDS: LACTULOSE SYRUP 20 GM/30 ML UDC PO SCH (10:25)
[2024-05-09] MEDS: bisacodyL 10 MG SUPP PR SCH (10:34)
--- NOTE | 2024-05-09 16:53 | Hospitalist Progress Note ---
Date of Service May 09, 2024 Assessment & Plan (1) Pneumonia: Plan: Recurrent pneumonia, possible aspiration --CT showed findings suggestive of Right lower lobe pneumonia -- BioFire negative --Blood culture pending Continue Zosyn Aspiration precautions Saturating well on room air Recurrent complicated UTIs H/O Recurrent infections secondary to neurogenic bladder with chronic indwelling suprapubic catheter (Enterococcus; Pseudomonas with intermediate resistance to cefepime, ceftazidime, quinolones and Zosyn on prior CS) --At catheter exchange recently per patient --Urine culture not contributory --On Zosyn as above --Pyridium as needed Other chronic conditions: H/O Substance abuse:: Avoid narcotics as able h/O PE on Eliquis Chronic diastolic heart failure: No signs of volume overload, continue home medications 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) HCV status post Rx Chronic anemia, Hb at baseline Chronic sacral decubitus/leg osteomyelitis Functional disability Ongoing tobacco abuse H/O MRSA -- Continue home medications as able --Nicotine patch as needed DVT Px: Eliquis Code Status Full code Admission and Anticipated Discharge Date Admission Date: May 09, 2024 Subjective Patient is seen and examined at bedside States having burning micturition Also reports mild cough No other complaints Denies any dyspnea, nausea, vomiting, abdominal pain Review of Systems Review of Systems: All systems reviewed & are unremarkable except as noted in Subjective Physical Exam Physical Exam: Physical Exam: Vitals signs as noted above General Appearance:Moderately built and nourished, no apparent distress, chronic ill appearing Head: normocephalic, Atraumatic Eyes: normal inspection, EOMI Neck: supple, Trachea midline Respiratory/Chest: Decreased breath sounds, No accessory muscle use Cardiovascular: S1, S2, No murmur Abdomen/GI:Soft, non tender, Bowel sounds present Extremities/Musculoskeletal:normal inspection, Trace pedal edema Neurologic/Psych: B/L UE 3/5, LE 0/5, alert awake and oriented x 3 Skin: normal color, warm Results & Data Results & Data Vital Signs (Past 12 Hours) Vital Signs Temp Pulse Pulse Pulse Resp BP Pulse Ox 05/09/24 15:42 37.0 C 79 16 102/66 95 05/09/24 15:41 79 05/09/24 12:08 36.7 C 16 160/105 H 94 05/09/24 09:13 36.6 C 61 16 161/109 H 94 05/09/24 08:02 64 05/09/24 08:01 36.5 C 61 18 151/96 H 92 O2 Del Method 05/09/24 15:42 Room Air 05/09/24 15:41 05/09/24 12:08 Room Air 05/09/24 09:13 Room Air 05/09/24 08:02 05/09/24 08:01 Room Air Laboratory Results Short CBC 05/08/24 05/09/24 Range/Units 18:44 09:26 WBC 7.97 7.40 (4.8-10.8) K/ul Hgb 12.8 L 13.2 L (14.0-18.0) g/dl Hct 40.5 L 41.9 L (42.0-52.0) % Plt Count 234 206 (130-400) K/uL BMP 05/08/24 05/09/24 18:44 09:26 Sodium 138 139 Potassium 4.0 3.6 Chloride 106 108 H Carbon Dioxide 24 23 BUN 12 12 Creatinine 0.44 L 0.46 L Glucose 99 97 Calcium 9.6 9.3 Liver Function 05/08/24 Range/Units 18:44 Total Bilirubin 0.4 (0.2-1.0) mg/dl AST 15 (13-39) U/L ALT 10 (7-52) U/L Alkaline Phosphatase 140 H (34-104) U/L Albumin 4.0 (3.4-5.0) gm/dl Urine 05/08/24 Range/Units 18:44 Urine Color Yellow Urine Appearance Turbid A (Clear) Urine pH 7.5 (4.5-7.5) Ur Specific [place] 1.017 (1.000-1.030) Urine Protein 1+ H (Negative) Urine Glucose (UA) Negative (Negative) (1) Pneumonia Laterality: right Lung location: lower lobe of lung Pneumonia type: due to unspecified organism Qualified Code(s): J18.9 - Pneumonia, unspecified organism
[2024-05-09] MEDS: PHENAZOPYRIDINE HCL 200 MG TAB PO SCH (16:59)
[2024-05-09] MEDS: MELATONIN 3 MG TAB PO SCH (20:12)
[2024-05-09] MEDS: DOCUSATE SODIUM/SENNA 50/8.6MG TAB PO SCH (20:18)
[2024-05-09] MEDS: LACTATED RINGER'S 1,000 ML IV ONE (22:03)
[2024-05-09] MEDS: MIDODRINE HCL 2.5 MG TAB PO STA (22:04)
[2024-05-10] MEDS: ALBUT/IPRATROP 3MG/0.5MG NEB 3 ML VIAL NEB PRN (07:40)
[2024-05-10] MEDS: MIDODRINE HCL 2.5 MG TAB PO SCH (07:51)
[2024-05-10] MEDS: PROMETHAZINE 6.25 MG/50.25 ML BAG IV PRN (14:14)
--- NOTE | 2024-05-10 15:18 | Hospitalist Progress Note ---
Date of Service May 10, 2024 Assessment & Plan (1) Pneumonia: Plan: Recurrent pneumonia, possible aspiration --CT showed findings suggestive of Right lower lobe pneumonia -- BioFire negative --Blood culture: Negative to date Continue Zosyn Aspiration precautions Saturating well on room air Continue current medications Recurrent complicated UTIs H/O Recurrent infections secondary to neurogenic bladder with chronic indwelling suprapubic catheter (Enterococcus; Pseudomonas with intermediate resistance to cefepime, ceftazidime, quinolones and Zosyn on prior CS) --At catheter exchange recently per patient --Urine culture not contributory --On Zosyn as above --Pyridium as needed GERD Continue Pepcid Maalox as needed Other chronic conditions: H/O Substance abuse:: Avoid narcotics as able h/O PE on Eliquis Chronic diastolic heart failure: No signs of volume overload, continue home medications 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) HCV status post Rx Chronic anemia, Hb at baseline Chronic sacral decubitus/leg osteomyelitis Functional disability Ongoing tobacco abuse H/O MRSA -- Continue home medications as able --Nicotine patch as needed DVT Px: Eliquis Code Status Full code Admission and Anticipated Discharge Date Admission Date: May 09, 2024 Subjective Patient is seen and examined at bedside Reports having heartburn Burning micturition resolved Low-grade fever this afternoon Denies any significant cough Also denies any dyspnea, nausea, vomiting, abdominal pain Review of Systems Review of Systems: All systems reviewed & are unremarkable except as noted in Subjective Physical Exam Physical Exam: Physical Exam: Vitals signs as noted above General Appearance:Moderately built and nourished, no apparent distress, chronic ill appearing Head: normocephalic, Atraumatic Eyes: normal inspection, EOMI Neck: supple, Trachea midline Respiratory/Chest: Decreased breath sounds, No accessory muscle use Cardiovascular: S1, S2, No murmur Abdomen/GI:Soft, non tender, Bowel sounds present Extremities/Musculoskeletal:normal inspection, Trace pedal edema Neurologic/Psych: B/L UE 3/5, LE 0/5, alert awake and oriented x 3 Skin: normal color, warm Results & Data Results & Data Vital Signs (Past 12 Hours) Vital Signs Temp Pulse Pulse Pulse Resp BP Pulse Ox 05/10/24 13:02 69 05/10/24 11:46 37.8 C H 67 18 148/93 H 95 05/10/24 11:26 36.9 C 05/10/24 07:48 36.4 C L 57 L 18 136/90 95 05/10/24 07:40 58 L 16 96 05/10/24 07:18 05/10/24 05:41 49 L 05/10/24 04:00 36.5 C 50 L 16 151/93 H 94 O2 Del Method 05/10/24 13:02 05/10/24 11:46 Room Air 05/10/24 11:26 05/10/24 07:48 Room Air 05/10/24 07:40 Room Air 05/10/24 07:18 Room Air 05/10/24 05:41 05/10/24 04:00 Room Air (1) Pneumonia Laterality: right Lung location: lower lobe of lung Pneumonia type: due to unspecified organism Qualified Code(s): J18.9 - Pneumonia, unspecified organism
[2024-05-10] MEDS: CALCIUM CARBONATE 500 MG CHEWABLE TAB PO PRN (16:16)
[2024-05-10] MEDS: ALUMINUM/MAGNESIUM/SIMETH (MAALOX MAX) 30 ML UDC PO PRN (16:16)
[2024-05-10] MEDS: IBUPROFEN 200 MG TAB PO STA (17:33)
[2024-05-10] MEDS: PANTOprazole 40 MG in SYRINGE 0 ML IV ONE (18:11)
[2024-05-10 19:40] VITALS: O2SAT 94
[2024-05-10] MEDS: KETOROLAC TROMETHAMINE 15 MG/ML VIAL IV ONE (21:21)
[2024-05-10 22:08] LABS: Basophils # (auto) 0.08 K/uL (0.00-0.20); Basophils % (auto) 1.1 %; Eosinophils # (auto) 0.18 K/uL (0.00-0.50); Eosinophils % (auto) 2.5 %; Hematocrit (blood only) 37.4 % (42.0-52.0); Hemoglobin 12.1 g/dl (14.0-18.0); Immature Granulocytes # (auto) 0.05 K/uL (0.01-0.20); Immature Granulocytes % (auto) 0.7 %; Lymphocytes # (auto) 1.47 K/uL (1.20-3.40); Lymphocytes % (auto) 20.1 %; Mean Corpuscular Hemoglobin 26.9 pg (25.0-34.0); Mean Corpuscular Hgb Conc 32.4 g/dL (32.0-36.0); Mean Corpuscular Volume 83.3 fL (80.0-100.0); Mean Platelet Volume 10.6 fL (9.4-12.4); Monocytes # (auto) 0.63 K/uL (0.11-0.59); Monocytes % (auto) 8.6 %; Neutrophils # (auto) 4.91 K/uL (1.40-6.50); Platelet Count 226 K/uL (130-400); RDW Coefficient of Variation 17.8 % (11.5-14.5); RDW Standard Deviation 54.6 fL (36.4-46.3); Red Blood Count 4.49 M/uL (4.70-6.10); White Blood Count 7.32 K/ul (4.8-10.8)
[2024-05-10] MEDS: ACETAMINOPHEN 1,000 MG/100 ML VIAL IV STA (23:11)
[2024-05-11] MEDS: KETOROLAC TROMETHAMINE 15 MG/ML VIAL IV ONE ×2 (00:26→05:20)
[2024-05-11] MEDS: hydrOXYzine HCl 25 MG TAB PO PRN (02:41)
--- NOTE | 2024-05-11 04:48 | Communication Note ---
Date of Service: May 11, 2024 Patient complaining of burning back/sacral pain overnight. AP Back pain Eliquis Rx CT abdomen pelvis Hold Eliquis until CT resulted
[2024-05-11] MEDS: SODIUM CHLORIDE 0.9% 1,000 ML IV ONE (06:30)
[2024-05-11 07:49] VITALS: RESP 20; TEMP 97.9
[2024-05-11] MEDS: MoRPHine SULFATE 4 MG/ML 1 ML CARP\\VIAL IV ONE (08:37)
--- NOTE | 2024-05-11 09:35 | CT Scan Report ---
CT OF THE ABDOMEN AND PELVIS WITHOUT CONTRAST CLINICAL HISTORY: back pain, eliquis COMPARISON STUDY: CT of the abdomen and pelvis May 08, 2024. TECHNIQUE: Axial images of the abdomen and pelvis were obtained without IV contrast. Images were revi ewed in the axial, sagittal, and coronal planes. Automated exposure control was utilized for the areli dy. A dose lowering technique was utilized adhering to the principles of ALARA. FINDINGS: Linear densities and groundglass opacities within the lower lungs favor atelectasis. No pne umatosis, free air or portal venous gas is present. Mild dilatation of the common bile duct is simila r to prior exams and likely related to cholecystectomy. Evaluation of the abdomen and pelvis is subop timal on this unenhanced exam. Spleen, adrenal glands and pancreas are unremarkable. Rectal wall thic kening is again noted. This is been shown on prior exams. A suprapubic catheter is in place. There is a small amount of gas within the bladder. Bladder wall thickening is likely chronic. Bilateral renal calculi measure up to 1.1 cm. There are no ureteral calculi. There is no hydronephrosis. There is no lymphadenopathy. No fluid collections are present. There are no acute fractures within the lumbar sp ine. Central canal is suboptimally assessed by CT but no significant abnormalities are identified. A large sacral decubitus ulcer is again noted. This contains gas and fluid. As before, there is erosion of the coccyx and inferior sacrum. There is sclerosis within the adjacent remaining portion of the s acrum. The appearance is similar to several prior exams. No new sites of bony erosion are identified. No drainable fluid collection is present. IMPRESSION: 1. Redemonstration of a large sacral decubitus ulcer with chronic erosion of the coccyx and inferior sacrum with sclerosis within the adjacent remaining portions of the sacrum. The findings suggest tool chaser lianna osteomyelitis. No new sites of bony erosion. 2. No acute lumbar spine fractures. 3. Bilateral nephrolithiasis. No ureteral calculi. No hydronephrosis. 4. No bowel obstruction. 5. Rectal wall thickening is similar to prior exam. This may be chronic. ACT 112: Negative or not required by law. Electronically signed by: Teja Moreno M.D. 05/11/2024 9:32 AM
[2024-05-11] MEDS: LACTATED RINGER'S 1,000 ML IV ONE (09:44)
--- NOTE | 2024-05-11 10:32 | Electrocardiogram Report ---
Test Reason : Blood Pressure : */* mmHG Vent. Rate : 71 BPM Atrial Rate : 71 BPM P-R Int : 184 ms QRS Dur : 74 ms QT Int : 388 ms P-R-T Axes : 21 -13 12 degrees QTcB Int : 421 ms Normal sinus rhythm Normal ECG When compared with ECG of 23-Apr-2024 01:51, Vent. rate has increased by 31 bpm Confirmed by Faraz Charles ([id number]) on 05/11/2024 10:31:58 AM Referred By: REFERRED SELF Confirmed By: Faraz Charles
--- NOTE | 2024-05-11 10:36 | Hospitalist Progress Note ---
Date of Service May 11, 2024 Assessment & Plan (1) Pneumonia: Plan: Recurrent pneumonia, possible aspiration --CT showed findings suggestive of Right lower lobe pneumonia -- BioFire negative --Blood culture: Negative to date Continue Zosyn Aspiration precautions Saturating well on room air Transition to p.o. antibiotics to complete the course Plan to discharge home today Recurrent complicated UTIs H/O Recurrent infections secondary to neurogenic bladder with chronic indwelling suprapubic catheter (Enterococcus; Pseudomonas with intermediate resistance to cefepime, ceftazidime, quinolones and Zosyn on prior CS) --At catheter exchange recently per patient --Urine culture not contributory --On Zosyn as above --Pyridium as needed GERD Continue Pepcid And PPI given heartburn despite Pepcid use Maalox as needed Other chronic conditions: H/O Substance abuse:: Avoid narcotics as able h/O PE on Eliquis Chronic diastolic heart failure: No signs of volume overload, continue home medications 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) HCV status post Rx Chronic anemia, Hb at baseline Chronic sacral decubitus/leg osteomyelitis Functional disability Ongoing tobacco abuse H/O MRSA -- Continue home medications as able --Nicotine patch as needed DVT Px: Eliquis Code Status Full code Disposition Home Admission and Anticipated Discharge Date Admission Date: May 09, 2024 Subjective Patient is seen and examined at bedside States having some pain at the sacral wound No other complaints today Cough resolved Denies any dyspnea, nausea, vomiting, abdominal pain, dizziness Review of Systems Review of Systems: All systems reviewed & are unremarkable except as noted in Subjective Physical Exam Physical Exam: Physical Exam: Vitals signs as noted above General Appearance:Moderately built and nourished, no apparent distress, chronic ill appearing Head: normocephalic, Atraumatic Eyes: normal inspection, EOMI Neck: supple, Trachea midline Respiratory/Chest: Decreased breath sounds, No accessory muscle use Cardiovascular: S1, S2, No murmur Abdomen/GI:Soft, non tender, Bowel sounds present Extremities/Musculoskeletal:normal inspection, Trace pedal edema Neurologic/Psych: B/L UE 3/5, LE 0/5, alert awake and oriented x 3 Skin: normal color, warm Results & Data Results & Data Vital Signs (Past 12 Hours) Vital Signs Temp Pulse Pulse Resp BP BP Pulse Ox 05/11/24 07:47 36.6 C 56 L 20 147/91 H 94 05/11/24 07:36 47 L 05/11/24 01:15 05/11/24 00:09 36.5 C 59 L 18 150/53 H 94 O2 Del Method 05/11/24 07:47 Room Air 05/11/24 07:36 05/11/24 01:15 Room Air 05/11/24 00:09 Room Air Laboratory Results Short CBC 05/10/24 Range/Units 21:48 WBC 7.32 (4.8-10.8) K/ul Hgb 12.1 L (14.0-18.0) g/dl Hct 37.4 L (42.0-52.0) % Plt Count 226 (130-400) K/uL (1) Pneumonia Laterality: right Lung location: lower lobe of lung Pneumonia type: due to unspecified organism Qualified Code(s): J18.9 - Pneumonia, unspecified organism
[2024-05-11] MEDS ORDERED: PHENAZOPYRIDINE HCL 200 MG TAB PO PRN (10:43)
--- NOTE | 2024-05-11 10:49 | Discharge Summary ---
Date of Service May 11, 2024 Admission HPI Per Admitting Provider History obtained from patient, ED provider and records. 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 Multiple admissions over the last couple of months. Recent [facility] confinement April 22 to 2023 for abdominal pain attributed to proctitis. Few days history of achy left-sided flank pain. Usual cough symptoms without chest pain or SOB. Denies hematuria. No fever, no chills. SBP 80s upon arrival at the ER. Cefepime administered at the ER. Medical History as above Surgical History : Ankle surgery, neck surgery, urologic procedures, arm surgery, appendectomy, leg abscess drainage/metatarsal surgery, cholecystectomy Family History : Heart disease Personal/Social history : 2 packs daily, occasional EtOH intake, disabled Admission Exam Per Admitting Provider GENERAL: uncomfortable, irate, looks older than stated age, unkempt, no respiratory distress SKIN: Pallor, cool HEENT: Alopecia, pale palpebral conjunctivae, no ptosis, dry buccal mucosa NECK : Some limitation in motion, no tenderness CHEST : Decreased breath sounds, no tenderness HEART : RRR, no obvious murmurs ABDOMEN: Some distention, minimal left-sided abdominal tenderness EXTREMITIES : Minimal LE swelling/tenderness, posterior surfaces not examined NEUROLOGIC : Coherent, no facial asymmetry, MMTS BUE 3/5, BLE 0 Principal Diagnosis Possible aspiration pneumonia GERD Recurrent complicated UTI Discharge Data Allergies Allergy/AdvReac Type Severity Reaction Status Date / Time No Known Allergies Allergy Verified 05/08/24 23:38 Consultations 05/08/24 23:06 ED Decision to Admit Stat Procedures Performed Laboratory Results WBC 7.32 K/ul (4.8-10.8) 05/10/24 21:48 RBC 4.49 M/uL (4.70-6.10) L 05/10/24 21:48 Hgb 12.1 g/dl (14.0-18.0) L 05/10/24 21:48 Hct 37.4 % (42.0-52.0) L 05/10/24 21:48 MCV 83.3 fL (80.0-100.0) 05/10/24 21:48 MCH 26.9 pg (25.0-34.0) 05/10/24 21:48 MCHC 32.4 g/dL (32.0-36.0) 05/10/24 21:48 RDW Std Deviation 54.6 fL (36.4-46.3) H 05/10/24 21:48 RDW Coeff of Adelia 17.8 % (11.5-14.5) H 05/10/24 21:48 Plt Count 226 K/uL (130-400) 05/10/24 21:48 MPV 10.6 fL (9.4-12.4) 05/10/24 21:48 Immature Gran % (Auto) 0.7 % 05/10/24 21:48 Neut % (Auto) 67.0 % 05/10/24 21:48 Lymph % (Auto) 20.1 % 05/10/24 21:48 Nelson % (Auto) 8.6 % 05/10/24 21:48 Eos % (Auto) 2.5 % 05/10/24 21:48 Baso % (Auto) 1.1 % 05/10/24 21:48 Neut # (Auto) 4.91 K/uL (1.40-6.50) 05/10/24 21:48 Lymph # (Auto) 1.47 K/uL (1.20-3.40) 05/10/24 21:48 Nelson # (Auto) 0.63 K/uL (0.11-0.59) H 05/10/24 21:48 Eos # (Auto) 0.18 K/uL (0.00-0.50) 05/10/24 21:48 Baso # (Auto) 0.08 K/uL (0.00-0.20) 05/10/24 21:48 Immature Gran # (Auto) 0.05 K/uL (0.01-0.20) 05/10/24 21:48 Sodium 139 mmol/L (136-145) 05/09/24 09:26 Potassium 3.6 mmol/L (3.5-5.1) 05/09/24 09:26 Chloride 108 mmol/L (98-107) H 05/09/24 09:26 Carbon Dioxide 23 mmol/L (21-32) 05/09/24 09:26 Anion Gap 8 (3-11) 05/09/24 09:26 BUN 12 mg/dl (6-23) 05/09/24 09:26 Creatinine 0.46 mg/dl (0.6-1.4) L 05/09/24 09:26 Est Cr Clr Drug Dosing 224.6 ml/min 05/09/24 09:26 Est GFR ( Amer) > 150.0 ml/min 05/09/24 09:26 Est GFR (Non-Af Amer) 133.5 ml/min 05/09/24 09:26 BUN/Creatinine Ratio 26.1 (10-20) H 05/09/24 09:26 Glucose 97 mg/dl (70-99(Fasting)) 05/09/24 09:26 POC Glucose 277 mg/dl (70-99) H 05/09/24 21:19 Lactate 1.8 mmol/L (0.4-2.0) 05/10/24 05:43 Calcium 9.3 mg/dl (8.6-10.3) 05/09/24 09:26 Magnesium 2.1 mg/dl (1.7-2.4) 05/08/24 18:44 Total Bilirubin 0.4 mg/dl (0.2-1.0) 05/08/24 18:44 AST 15 U/L (13-39) 05/08/24 18:44 ALT 10 U/L (7-52) 05/08/24 18:44 Alkaline Phosphatase 140 U/L (34-104) H 05/08/24 18:44 Total Protein 7.0 gm/dl (6.0-8.3) 05/08/24 18:44 Albumin 4.0 gm/dl (3.4-5.0) 05/08/24 18:44 Globulin 3.0 gm/dl (2.5-4.0) 05/08/24 18:44 Albumin/Globulin Ratio 1.3 (0.9-2) 05/08/24 18:44 Lipase 14 U/L (11-82) 05/08/24 18:44 Procalcitonin 0.03 ng/ml (0-0.5) 05/10/24 09:31 Urine Color Yellow 05/08/24 18:44 Urine Appearance Turbid (Clear) A 05/08/24 18:44 Urine pH 7.5 (4.5-7.5) 05/08/24 18:44 Ur Specific [place] 1.017 (1.000-1.030) 05/08/24 18:44 Urine Protein 1+ (Negative) H 05/08/24 18:44 Urine Glucose (UA) Negative (Negative) 05/08/24 18:44 Urine Ketones Negative (Negative) 05/08/24 18:44 Urine Blood 2+ (Negative) H 05/08/24 18:44 Urine Nitrite Negative (Negative) 05/08/24 18:44 Urine Bilirubin Negative (Negative) 05/08/24 18:44 Urine Urobilinogen Negative (Negative) 05/08/24 18:44 Ur Leukocyte Esterase 3+ (Negative) H 05/08/24 18:44 Urine WBC (Auto) >50 /hpf (0-5) H 05/08/24 18:44 Urine RBC (Auto) >20 /hpf (0-2) H 05/08/24 18:44 U Hyaline Cast (Auto) 11-20 /lpf (0-2) H 05/08/24 18:44 U Epithel Cells (Auto) 0-2 /hpf (0-2) 05/08/24 18:44 Urine Bacteria (Auto) 4+ (None Seen) H 05/08/24 18:44 Calcium Oxalate Crystal Present (None Prsent) A 05/08/24 18:44 Amorphous Sediment Present (None Prsent) A 05/08/24 18:44 Urine Opiates Screen Pos (Neg) H 05/08/24 18:44 Ur Methadone, Qual Neg (Neg) 05/08/24 18:44 Urine Fentanyl Screen Neg (Neg) 05/08/24 18:44 Urine Barbiturates Neg (Neg) 05/08/24 18:44 Ur Phencyclidine (PCP) Neg (Neg) 05/08/24 18:44 U Amphetamin/Meth Scrn Neg (Neg) 05/08/24 18:44 MDMA (Ecstasy) Screen Neg (Neg) 05/08/24 18:44 U Benzodiazepines Scrn Neg (Neg) 05/08/24 18:44 Ur Cocaine Metabolite Neg (Neg) 05/08/24 18:44 U Marijuana (THC) Screen Pos (Neg) H 05/08/24 18:44 Adenovirus (PCR) Not Detected (NotDetected) 05/08/24 21:35 B. pertussis DNA (PCR) Not Detected (NotDetected) 05/08/24 21:35 B.parapertussis DNA PCR Not Detected (NotDetected) 05/08/24 21:35 C. pneumoniae DNA (PCR) Not Detected (NotDetected) 05/08/24 21:35 Coronavirus OC43 (PCR) Not Detected (NotDetected) 05/08/24 21:35 Coronavirus HKU1 (PCR) Not Detected (NotDetected) 05/08/24 21:35 Coronavirus 229E (PCR) Not Detected (NotDetected) 05/08/24 21:35 SARS-CoV-2 (PCR) Not Detected (NotDetected) 05/08/24 21:35 Coronavirus NL63 (PCR) Not Detected (NotDetected) 05/08/24 21:35 Human Metapneumovir PCR Not Detected (NotDetected) 05/08/24 21:35 Influenza Type A (PCR) Not Detected (NotDetected) 05/08/24 21:35 Influenza Type B (PCR) Not Detected (NotDetected) 05/08/24 21:35 M. pneumoniae (PCR) Not Detected (NotDetected) 05/08/24 21:35 Parainfluenza 1 (PCR) Not Detected (NotDetected) 05/08/24 21:35 Parainfluenza 2 (PCR) Not Detected (NotDetected) 05/08/24 21:35 Parainfluenza 3 (PCR) Not Detected (NotDetected) 05/08/24 21:35 Parainfluenza 4 (PCR) Not Detected (NotDetected) 05/08/24 21:35 RSV (PCR) Not Detected (NotDetected) 05/08/24 21:35 Entero/Rhino (PCR) Not Detected (NotDetected) 05/08/24 21:35 Impressions Chest X-Ray 05/08/24 20:06 XR chest 1V not portable CLINICAL HISTORY: Abdominal pain. COMPARISON STUDY: Chest CT February 25, 2024. Chest radiograph April 15, 2024. FINDINGS: Postoperative findings within the spine are partially imaged. Lung volumes are normal. Linear bibasilar densities represent atelectasis. There is no pneumothorax or pleural effusion. Cardiac size is stable. Mediastinal contours are normal. There is no evidence for pulmonary edema. IMPRESSION: No acute cardiopulmonary findings. ACT 112: Negative or not required by law. Electronically signed by: Teja Moreno M.D. 05/09/2024 7:06 AM Abdomen/Pelvis CT 05/11/24 09:30 CT OF THE ABDOMEN AND PELVIS WITHOUT CONTRAST CLINICAL HISTORY: back pain, eliquis COMPARISON STUDY: CT of the abdomen and pelvis May 08, 2024. TECHNIQUE: Axial images of the abdomen and pelvis were obtained without IV contrast. Images were reviewed in the axial, sagittal, and coronal planes. Automated exposure control was utilized for the study. A dose lowering technique was utilized adhering to the principles of ALARA. FINDINGS: Linear densities and groundglass opacities within the lower lungs favor atelectasis. No pneumatosis, free air or portal venous gas is present. Mild dilatation of the common bile duct is similar to prior exams and likely related to cholecystectomy. Evaluation of the abdomen and pelvis is suboptimal on this unenhanced exam. Spleen, adrenal glands and pancreas are unremarkable. Rectal wall thickening is again noted. This is been shown on prior exams. A suprapubic catheter is in place. There is a small amount of gas within the bladder. Bladder wall thickening is likely chronic. Bilateral renal calculi measure up to 1.1 cm. There are no ureteral calculi. There is no hydronephrosis. There is no lymphadenopathy. No fluid collections are present. There are no acute fractures within the lumbar spine. Central canal is suboptimally assessed by CT but no significant abnormalities are identified. A large sacral decubitus ulcer is again noted. This contains gas and fluid. As before, there is erosion of the coccyx and inferior sacrum. There is sclerosis within the adjacent remaining portion of the sacrum. The appearance is similar to several prior exams. No new sites of bony erosion are identified. No drainable fluid collection is present. IMPRESSION: 1. Redemonstration of a large sacral decubitus ulcer with chronic erosion of the coccyx and inferior sacrum with sclerosis within the adjacent remaining portions of the sacrum. The findings suggest chronic osteomyelitis. No new sites of bony erosion. 2. No acute lumbar spine fractures. 3. Bilateral nephrolithiasis. No ureteral calculi. No hydronephrosis. 4. No bowel obstruction. 5. Rectal wall thickening is similar to prior exam. This may be chronic. ACT 112: Negative or not required by law. Electronically signed by: Teja Moreno M.D. 05/11/2024 9:32 AM Ordered Studies 05/08/24 20:16 CT abd pelvis IV con only Stat 05/11/24 09:30 CT abd pelvis wo con Stat Hospital Course (1) Pneumonia: Recurrent pneumonia, possible aspiration --CT showed findings suggestive of Right lower lobe pneumonia -- BioFire negative --Blood culture: Negative to date Continue Zosyn Aspiration precautions Saturating well on room air Transition to p.o. antibiotics to complete the course Plan to discharge home today Recurrent complicated UTIs H/O Recurrent infections secondary to neurogenic bladder with chronic indwelling suprapubic catheter (Enterococcus; Pseudomonas with intermediate resistance to cefepime, ceftazidime, quinolones and Zosyn on prior CS) --At catheter exchange recently per patient --Urine culture not contributory --On Zosyn as above --Pyridium as needed GERD Continue Pepcid And PPI given heartburn despite Pepcid use Maalox as needed Other chronic conditions: H/O Substance abuse:: Avoid narcotics as able h/O PE on Eliquis Chronic diastolic heart failure: No signs of volume overload, continue home medi cations 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) HCV status post Rx Chronic anemia, Hb at baseline Chronic sacral decubitus/leg osteomyelitis Functional disability Ongoing tobacco abuse H/O MRSA -- Continue home medications as able --Nicotine patch as needed DVT Px: Eliquis Code Status Full code Disposition Home Total Time Total Time Spent Total Time Spent (In Minutes): 43 minutes Discharge Plan Discharge Items Patient Disposition: Home - Self-Care Reason For Visit: COMP UTI, TRANSIENT HYPOTENSION Discharge Diagnosis: Possible aspiration pneumonia GERD Recurrent complicated UTI Condition on Discharge: Fair Activity: Per Instructions section Exercise/Sports: Gradually increase as tolerated Non-emergency contact: Primary Care Provider Call non-emergency contact if: you have any medication questions, your symptoms worsen, your pain is concerning for you and you have a fever Follow-up/Referrals: Chay Aguilar DO [Primary Care Provider] - 05/15/24 1:20 pm Diet: Regular Addtl Attending Provider Instructions: Follow-up with your primary care physician in 1 week -- Your final blood cultures are pending at the time of discharge. Follow-up with your physician for results. -- Complete the antibiotic course Augmentin as prescribed. -- You can use Pyridium as needed for burning sensation when you urinate. Medication can change your urine color to orange. -- Avoid xopr-eon-ewmayay pain medicines (NSAIDs like Ibuprofen, Naproxen etc) can worsen your heartburn Seek immediate medical attention if your symptoms reoccur or worsen Please take all medications as instructed on discharge list below. Please call if you have any questions or problems. You can reach a [facility] hospitalist on duty at [facility] 24 hours a day by calling [phone] Pending Studies at Discharge: Yes Studies:: Blood cultures Stand-Alone Forms: My [facility], Smoking Cessation Medications and DC Order Prescriptions: New pantoprazole 40 mg Tablet,Delayed Release (Dr/Ec) 40 mg PO QAM Qty: 30 0RF amoxicillin-pot clavulanate 875-125 mg tablet 1 tab PO BID Qty: 10 0RF phenazopyridine [Pyridium] 200 mg Tablet 200 mg PO TID PRN (Reason: Dysuria) Qty: 15 0RF Continued baclofen 10 mg tablet 20 mg PO TID PRN (Reason: Spasms) lidocaine 5 % adhesive patch,medicated 1 patch topical DAILY PRN (Reason: Pain) docusate sodium 100 mg capsule 100 mg PO BID PRN (Reason: Constipation) hydroxyzine HCl 25 mg tablet 25 mg PO DAILY PRN (Reason: Anxiety) gabapentin 100 mg capsule 100 mg PO TID Culturelle 10 billion cell capsule 1 cap PO DAILY Spiriva Respimat 2.5 mcg/actuation mist 2 puff INHALATION DAILY Eliquis 5 mg tablet 5 mg PO BID pediatric multivitamin Tablet,Chewable 1 tab PO DAILY melatonin 3 mg Tablet 3 mg PO HS bisacodyl 10 mg Suppository 10 mg DE BID midodrine 2.5 mg Tablet 2.5 mg PO TID Rx Instructions: do not give last dose of day after 6PM or within 4 hrs of bedtime to give at 0700, 1200 and 1700 lactulose 20 gram Packet 20 g PO TID simethicone 80 mg Tablet,Chewable 80 mg PO TID Dakin's Solution 0.25 % Solution 1 irrig TOPICAL BID ascorbic acid (vitamin C) 500 mg Capsule 500 mg PO DAILY famotidine 20 mg 20 mg PO BID oxybutynin chloride 10 mg Tablet Extended Release 24hr 10 mg PO DAILY ferrous sulfate 325 mg (65 mg iron) Tablet 325 mg PO DAILYBB collagenase clostridium histo. 250 unit/gram Ointment 1 applic TOPICAL DAILY duloxetine 60 mg Capsule,Delayed Release(Dr/Ec) 60 mg PO DAILY naloxone 4 mg/actuation [place],Non-Aerosol 4 mg INTRANASAL UD PRN (Reason: opiod OD) Rx Instructions: 1 spray intranasal prn opiod OD Enema Disposable 19-7 gram/118 mL Enema 132 ml DE DAILY PRN (Reason: constipation) 30 Days Qty: 133 5RF sennosides-docusate sodium [Senokot-S] 8.6-50 mg Tablet 2 tab-cap PO HS Qty: 60 0RF Held celecoxib 200 mg capsule 200 mg PO DAILY PRN (Reason: Pain) Hold Instructions: Hold taking it for now as can worsen your heartburn Discharge Orders: Discharge Order (Routine); Ordered 05/11/24 Ordered By: Jama Vela Admission Data Admit Date/Time: 05/09/24 01:35 Attending Provider: Jama Vela Admit Provider: Corky Yadav Primary Care Provider: Chay Aguilar Other Providers: Corky Yadav
[2024-05-11 10:58] VITALS: BP 150/53; PULSE 61
[2024-05-12] MEDS ORDERED: ADVANCED PROBIOTIC 625 MG CAPSULE PO SCH (09:00)
[2024-05-12] MEDS ORDERED: PANTOprazole 40 MG TAB PO SCH (09:00)
== END 2024-05-11 11:22 | disposition home or self-care (01) | DRG 177 ==
LOC: ED 19:39 → EDINP 05-09 01:35 → 2W 05-09 02:51
DX: N39.0 Urinary tract infection, site not specified; Z11.52 Encounter for screening for COVID-19; G89.29 Other chronic pain; Z79.01 Long term (current) use of anticoagulants; Z86.14 Personal history of Methicillin resistant Staphylococcus aureus infection; I95.9 Hypotension, unspecified; Z86.79 Personal history of other diseases of the circulatory system; Z87.440 Personal history of urinary (tract) infections; G82.51 Quadriplegia, C1-C4 complete; F17.210 Nicotine dependence, cigarettes, uncomplicated; B96.5 Pseudomonas (aeruginosa) (mallei) (pseudomallei) as the cause of diseases classified elsewhere; Z79.899 Other long term (current) drug therapy; L89.154 Pressure ulcer of sacral region, stage 4; J44.9 Chronic obstructive pulmonary disease, unspecified; N31.9 Neuromuscular dysfunction of bladder, unspecified; K21.9 Gastro-esophageal reflux disease without esophagitis; J69.0 Pneumonitis due to inhalation of food and vomit; Z86.19 Personal history of other infectious and parasitic diseases; I50.32 Chronic diastolic (congestive) heart failure; B95.2 Enterococcus as the cause of diseases classified elsewhere; Z79.51 Long term (current) use of inhaled steroids; Z86.711 Personal history of pulmonary embolism

== ENCOUNTER 2024-05-16 19:16 | Inpatient (IN) ==
--- NOTE | 2024-05-16 19:35 | Emergency Department Note ---
Impression & Plan Acute UTI, Chronic pain, Quadriplegia ED Provider Note Provider: Cooper Grande MD DATE OF SERVICE: 05/16/2024 CHIEF COMPLAINT: Burning sensation, recent hospitalization HISTORY OF PRESENT ILLNESS: Patient is a 48-year-old gentleman unfortunately history of traumatic cervical spine injury now with neurogenic bladder with suprapubic catheter recurrent UTIs, diastolic heart failure, PE on Eliquis, COPD, anemia, sacral decub osteomyelitis presenting here today reporting diffuse body burning sensation. Was recently hospitalized and discharged last week from this hospital with antibiotics/Augmentin for UTI and pneumonia. Patient complex history and a complex recent course. States he is starting frequency of burning worsening yesterday evening even taken the antibiotics and called the ambulance. Blood pressure was too low for them to bring him here and they took him to [facility] by his report. States he was seen there and they wanted to send him to [facility] but he signed out AGAINST MEDICAL ADVICE and went home. Called 911 again there and they took him to [facility] the ambulance at that time. States they changed his Sanchez catheter which seem to have been clogged and sent him home with prescriptions for cefdinir and Cipro. Took 1 dose earlier this evening left around lunchtime. Got home and still was experiencing diffuse burning. States has had this with urine infections before and does report a little bit of increased left flank pain. His history of chronic pain here. Denies any significant falls. States compliance with home blood thinners. Concerned he could have worsening infection and thus was able to get a ride here with friends/family. PAST MEDICAL HISTORY: As noted above MEDICATIONS: Reviewed medications he is on SOCIAL HISTORY: Former smoker PHYSICAL EXAM: GENERAL: alert and oriented in no acute distress on stretcher Head: normocephalic and atraumatic EYES: No injection, discharge or icterus. NECK: Trachea midline. ENT: Mucous membranes pink and moist. Pharynx without erythema or exudate. LUNGS: Airway patent. No retractions. Breath sounds clear with good air entry bilaterally. HEART: Regular rate and rhythm. No chest wall tenderness ABDOMEN: Soft and non-tender, without guarding or rebound. With a lower suprapubic catheter site draining into Sanchez without significant erythema noted. Dark yellow urine in Sanchez noted. SKIN: Acyanotic, warm, dry, without rashes EXTREMITIES: Without swelling, tenderness or deformity NEUROLOGICAL: Limited mobility of the upper arms with some contractures and paralysis of the lower limbs appreciable. No significant aphasia. EK bpm normal sinus rhythm. No PVC or PAC. No acute ST segment elevation or depression with QTc of 442. CONTINUOUS CARDIAC MONITORING: was ordered and showed a heart rate of 70s-80s bpm in normal sinus rhythm Patient's laboratory studies and imaging reviewed. Differential includes Infection, dehydration, metabolic abnormality, hypo/hyperglycemia, electrolyte disturbance, anemia, hypoxia, cardiac sources, intracerebral event/neurological, gastrointestinal problem, pancreatitis, hepatitis, diverticulitis, cholecystitis, obstruction, appendicitis, kidney stone, worsening osteomyelitis, urinary retention as well as other pathologies. IMPRESSION/MEDICAL DECISION MAKING: Patient vitals noted here without severe abnormalities or hypotension. Significantly complex history as well as varied history over the last 24 hours in which he was initially seen in [facility] then went to [place] started on cefdinir and Handy presents here to complaining of diffuse body pain. Given the complex history will obtain extensive workup including blood culture, lactate, basic labs including LFTs and lipase as well as a CT abdomen pelvis and a CT of the chest given the fact had recent pneumonia. Reviewed prior microbiology with a complex history. Known history of chronic osteomyelitis of the sacrum. Denies significant congestion but respiratory viral panel sent given his multiple recent hospital interactions to seclude this is etiology for discomfort. Given very small amount of morphine for his pain he states has helped in the past. Some difficulty even with IV team obtaining access given his complex history and multiple sticks in the past. Urinalysis here unable interpreted due to the orange color from the Azo he has been taking but micro does show greater than 50 white cells and some yeast and 1+ bacteria. Will send urine for culture. Based on prior we will give a dose of Zosyn here. EKG without significant changes. Vitals again here without significant tachycardia hypotension or fever/hypoxia noted. Respiratory viral panel negative. Patient given his evening baclofen and has had some pain in the morphine only helped very briefly. Some IV Tylenol ordered to help with some of his aches and pains. Discussed with him given the findings we already have here with his history of urine issues believes today while the Zosyn continues and his urine culture results would be helpful given his comorbidities. Patient in agreement. CT of the abdomen pelvis and CT of the chest per radiology shows some increased right lower lobe atelectasis versus infiltrate compared to 05/11. Again has been covered with Zosyn but not having significant respiratory symptoms. Report regarding the abdomen pelvis she has ongoing issues with chronic osteomyelitis without obstructive urinary findings or evidence of bowel obstruction or free air. Discussed with the hospitalist team for further care here given his complex issues and failure of outpatient treatment. Later does have a little bit of hypotension but missed his evening dose of midodrine which was ordered and given a small amount of IV fluid as he has been n.p.o. here. DIAGNOSIS: Acute UTI, quadriplegia, myalgias, right lower lobe pneumonia DISPOSITION: Hospitalist will evaluate Patient was agreeable with this plan. Past Med/Surg History Problem List (Updated 05/17/24 @ 00:16 by Cooper Grande M.D.) Acute UTI (Acute) Pneumonia (Acute) Cough (Acute) Left sided abdominal pain (Acute) Quadriplegia (Acute) Acute UTI (Acute) Hypotension (Acute) Abdominal pain Acute UTI (Acute) Autonomic dysreflexia Constipation Hydronephrosis (Acute) Acute urinary retention (Acute) Leukocytosis (Acute) Complication, blocked suprapubic catheter Hypokalemia (Acute) Hypomagnesemia (Acute) Anemia (Acute) Quadriplegia (Acute) Sacral decubitus ulcer (Acute) Acute UTI (Acute) Hypotension (Acute) Encephalopathy Pneumonia (Acute) Complicated urinary tract infection (Acute Unknown) Change or removal of nonsurgical wound dressing Acute hypoxemic respiratory failure (Acute) Chest pain (Acute) Severe sepsis (Acute) MRSA carrier Pneumonia (Acute) Hypoxic respiratory failure (Acute) 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 Leg wound, right Leg wound, left History of pulmonary embolism Hypoxia (Acute) RSV (respiratory syncytial virus infection) Chronic pain (Acute) Suprapubic catheter (Acute) Complicated UTI (urinary tract infection) (Acute) Sacral decubitus ulcer, stage IV (Acute) Chronic osteomyelitis of sacrum Medical History Abdominal pain Aspiration pneumonitis Pneumonia Paraplegia Surgical History No pertinent past surgical history Social History Smoking Status: Current every day smoker Tobacco Type: Cigarettes Cigarettes Per Day: 50-60; Second Hand Exposure: Yes; Do You Dip or Chew Tobacco: Yes; Hx Alcohol Use: Yes Alcohol type: hard liquor Hx Substance Use: Yes Non-Prescribed Medications: Crack / Cocaine and Marijuana Last Used Substance: Unknown Preferred Language: Wolof Communication Ability: Effective Sales Enablement Consultant Required: No Beliefs That Will Affect Care: None Current Living Situation: Alone Current Living Situation Comment: alone with 28/02 home care Feels Safe at Home: Yes Assistive Devices: Hospital Bed, Mechanical Lift and Scooter/Electric Scooter Allergies Allergies Allergy/AdvReac Type Severity Reaction Status Date / Time No Known Allergies Allergy Verified 05/08/24 23:38 Home Meds Home Medications Medication Instructions Recorded Confirmed Lactobacillus rhamnosus GG 10 1 cap PO DAILY 04/22/24 05/17/24 billion cell capsule (Culturelle) apixaban 5 mg tablet (Eliquis) 5 mg PO BID 04/22/24 05/17/24 ascorbic acid (vitamin C) 500 mg 500 mg PO DAILY 04/22/24 05/17/24 capsule baclofen 10 mg tablet 20 mg PO TID Spasms 04/22/24 05/17/24 bisacodyl 10 mg rectal suppository 10 mg CA BID 04/22/24 05/17/24 collagenase clostridium histo. 250 1 applic topical DAILY 04/22/24 05/17/24 unit/gram topical ointment docusate sodium 100 mg capsule 100 mg PO BID PRN Constipation 04/22/24 05/17/24 gabapentin 100 mg capsule 100 mg PO TID 04/22/24 05/17/24 hydroxyzine HCl 25 mg tablet 25 mg PO DAILY PRN Anxiety 04/22/24 05/17/24 lidocaine 5 % topical patch 1 patch topical DAILY PRN Pain 04/22/24 05/17/24 melatonin 3 mg tablet 3 mg PO HS 04/22/24 05/17/24 midodrine 2.5 mg tablet 2.5 mg PO TID 04/22/24 05/17/24 naloxone 4 mg/actuation nasal spray 4 mg intranasal UD PRN opiod OD 04/22/24 05/17/24 oxybutynin chloride 10 mg 10 mg PO QAM 04/22/24 05/17/24 tablet,extended release 24 hr pediatric multivitamin 1 tab PO DAILY 04/22/24 05/17/24 simethicone 80 mg chewable tablet 80 mg PO TID 04/22/24 05/17/24 sodium hypochlorite 0.25 % 1 irrig topical BID 04/22/24 05/17/24 solution (Dakin's Solution) tiotropium bromide 2.5 2 puff inhalation DAILY 04/22/24 05/17/24 mcg/actuation mist for inhalation (Spiriva Respimat) budesonide-formoterol HFA 160 2 puff inhalation AMHS 05/17/24 05/17/24 mcg-4.5 mcg/actuation aerosol inhaler lactulose 10 gram/15 mL oral 30 ml PO TID 05/17/24 05/17/24 solution Previous Rx's Medication Instructions Recorded sennosides 8.6 mg-docusate sodium 2 tab-cap (2 x 8.6-50 mg) PO HS 04/24/24 50 mg tablet (Senokot-S) #60 tabs sodium phosphates 19 gram-7 132 ml CA DAILY PRN constipation 04/24/24 gram/118 mL enema (Enema 30 days #133 mL Disposable) amoxicillin 875 mg-potassium 1 tab PO BID #10 tabs 05/11/24 clavulanate 125 mg tablet pantoprazole 40 mg tablet,delayed 40 mg PO QAM #30 tabs 05/11/24 release phenazopyridine 200 mg tablet 200 mg PO TID PRN Dysuria #15 tabs 05/11/24 (Pyridium) Results & Data (ED) Vital Signs Vital Signs - 24 hr 05/16/24 19:21 05/16/24 19:43 05/16/24 20:33 Temperature 37.4 C Temperature Source Oral Pulse Rate 78 78 Pulse Rate [Left Brachial] 71 Pulse Rhythm Pulse Rhythm [Left Brachial] Regular Pulse Strength [Left Brachial] Normal Respiratory Rate 20 18 Respiratory Effort / Characteristics Non-Labored Spontaneous Non-Labored Respiratory Depth Normal Normal Respiratory Pattern Regular Blood Pressure 133/87 Blood Pressure [Left Arm] 124/76 Blood Pressure Mean 102 Blood Pressure Mean [Left Arm] 92 Blood Pressure Position [Left Arm] Lying Pulse Oximetry 94 95 Oxygen Delivery Method Room Air Room Air Sepsis Recent Fever Within 48 Hours Yes Sepsis New/Unexplained Change in Mental Status No Sepsis Action Taken by Nursing No Action Required 05/16/24 20:33 05/16/24 23:50 05/16/24 23:54 Temperature Temperature Source Pulse Rate 71 89 82 Pulse Rate [Left Brachial] Pulse Rhythm Regular Pulse Rhythm [Left Brachial] Pulse Strength [Left Brachial] Respiratory Rate 18 20 Respiratory Effort / Characteristics Respiratory Depth Respiratory Pattern Blood Pressure 107/62 Blood Pressure [Left Arm] Blood Pressure Mean 77 Blood Pressure Mean [Left Arm] Blood Pressure Position [Left Arm] Pulse Oximetry 95 Oxygen Delivery Method Room Air Sepsis Recent Fever Within 48 Hours Sepsis New/Unexplained Change in Mental Status Sepsis Action Taken by Nursing 05/17/24 01:02 05/17/24 01:38 Temperature Temperature Source Pulse Rate Pulse Rate [Left Brachial] 75 74 Pulse Rhythm Pulse Rhythm [Left Brachial] Pulse Strength [Left Brachial] Respiratory Rate 20 Respiratory Effort / Characteristics Respiratory Depth Respiratory Pattern Blood Pressure Blood Pressure [Left Arm] 86/54 L 118/71 Blood Pressure Mean Blood Pressure Mean [Left Arm] 64 86 Blood Pressure Position [Left Arm] Pulse Oximetry 93 Oxygen Delivery Method Room Air Sepsis Recent Fever Within 48 Hours Sepsis New/Unexplained Change in Mental Status Sepsis Action Taken by Nursing Laboratory Data 05/16/24 23:13 05/16/24 23:13 Lab Results 05/16/24 05/16/24 Range/Units 20:30 23:13 WBC 8.09 (4.8-10.8) K/ul RBC 4.24 L (4.70-6.10) M/uL Hgb 11.4 L (14.0-18.0) g/dl Hct 36.5 L (42.0-52.0) % MCV 86.1 (80.0-100.0) fL MCH 26.9 (25.0-34.0) pg MCHC 31.2 L (32.0-36.0) g/dL RDW Std Deviation 57.7 H (36.4-46.3) fL RDW Coeff of Adelia 18.3 H (11.5-14.5) % Plt Count 228 (130-400) K/uL MPV 10.4 (9.4-12.4) fL Immature Gran % (Auto) 0.1 % Neut % (Auto) 68.3 % Lymph % (Auto) 20.1 % [place]ull[place] % (Auto) 6.8 % Eos % (Auto) 4.0 % Baso % (Auto) 0.7 % Neut # (Auto) 5.52 (1.40-6.50) K/uL Lymph # (Auto) 1.63 (1.20-3.40) K/uL [place] # (Auto) 0.55 (0.11-0.59) K/uL Eos # (Auto) 0.32 (0.00-0.50) K/uL Baso # (Auto) 0.06 (0.00-0.20) K/uL Immature Gran # (Auto) 0.01 (0.01-0.20) K/uL Sodium 144 (136-145) mmol/L Potassium 3.0 L (3.5-5.1) mmol/L Chloride 111 H (98-107) mmol/L Carbon Dioxide 24 (21-32) mmol/L Anion Gap 9 (3-11) BUN 7 (6-23) mg/dl Creatinine 0.57 L (0.6-1.4) mg/dl Est Cr Clr Drug Dosing Not Reportable eGFR 121.69 BUN/Creatinine Ratio 12.3 (10-20) Glucose 94 (70-99(Fasting)) mg/dl Lactate 1.5 (0.4-2.0) mmol/L Calcium 8.9 (8.6-10.3) mg/dl Magnesium 1.7 (1.7-2.4) mg/dl Total Bilirubin 0.3 (0.2-1.0) mg/dl AST 12 L (13-39) U/L ALT 7 (7-52) U/L Alkaline Phosphatase 97 (34-104) U/L Total Creatine Kinase 85 (30-223) U/L Troponin I High Sens 9.5 (0-20) pg/ml Total Protein 6.1 (6.0-8.3) gm/dl Albumin 3.5 (3.4-5.0) gm/dl Globulin 2.6 (2.5-4.0) gm/dl Albumin/Globulin Ratio 1.3 (0.9-2) Lipase 15 (11-82) U/L Procalcitonin < 0.02 (0-0.5) ng/ml TSH 2.793 (0.300-4.500) uIu/ml Urine Color See Comment Urine Appearance Clear (Clear) Urine pH Not Reportable Ur Specific [place] 1.019 (1.000-1.030) Urine Protein Not Reportable Urine Glucose (UA) Not Reportable Urine Ketones Not Reportable Urine Blood Not Reportable Urine Nitrite Not Reportable Urine Bilirubin Not Reportable Urine Urobilinogen Not Reportable Ur Leukocyte Esterase Not Reportable Urine RBC 0-2 (0-2) /hpf Urine WBC >50 H (0-5) /hpf Ur Epithelial Cells 0-2 (0-2) /hpf Urine Bacteria 1+ H (None Seen) Urine Yeast Present A (None Prsent) Adenovirus (PCR) Not Detected (NotDetected) B. pertussis DNA (PCR) Not Detected (NotDetected) B.parapertussis DNA PCR Not Detected (NotDetected) C. pneumoniae DNA (PCR) Not Detected (NotDetected) Coronavirus OC43 (PCR) Not Detected (NotDetected) Coronavirus HKU1 (PCR) Not Detected (NotDetected) Coronavirus 229E (PCR) Not Detected (NotDetected) SARS-CoV-2 (PCR) Not Detected (NotDetected) Coronavirus NL63 (PCR) Not Detected (NotDetected) Human Metapneumovir PCR Not Detected (NotDetected) Influenza Type A (PCR) Not Detected (NotDetected) Influenza Type B (PCR) Not Detected (NotDetected) M. pneumoniae (PCR) Not Detected (NotDetected) Parainfluenza 1 (PCR) Not Detected (NotDetected) Parainfluenza 2 (PCR) Not Detected (NotDetected) Parainfluenza 3 (PCR) Not Detected (NotDetected) Parainfluenza 4 (PCR) Not Detected (NotDetected) RSV (PCR) Not Detected (NotDetected) Entero/Rhino (PCR) Not Detected (NotDetected) Administered Medications Discontinued Medications Baclofen (Baclofen 20 Mg Tab) 20 mg PO ONCE ONE Stop: 05/16/24 23:54 Last Admin: 05/17/24 00:44 Dose: 20 mg Documented By: ABHISHEK Piperacillin Sod/Tazobactam Sod (Zosyn) 4.5 gm in 100 mls @ 200 mls/hr IV NOW ONE; Protocol Stop: 05/16/24 22:35 Last Infusion: 05/17/24 00:20 Dose: Infused Documented By: Admin: 05/16/24 23:50 Dose: 200 mls/hr Documented By: ABHISHEK Acetaminophen (Ofirmev) 1,000 mg in 100 mls @ 400 mls/hr IV NOW STA Stop: 05/17/24 00:28 Last Infusion: 05/17/24 01:05 Dose: Infused Documented By: Admin: 05/17/24 00:44 Dose: 400 mls/hr Documented By: ABHISHEK Lactated Ringer's (Lr) 500 mls @ 999 mls/hr IV .Q31M ONE Stop: 05/17/24 01:36 Last Admin: 05/17/24 01:56 Dose: Not Given Documented By: ABHISHEK Midodrine (Midodrine Hcl 2.5 Mg Tab) 2.5 mg PO ONCE ONE Stop: 05/17/24 01:08 Last Admin: 05/17/24 01:56 Dose: 2.5 mg Documented By: ABHISHEK Morphine Sulfate (Morphine Sulfate 2 Mg/Ml Carp) 2 mg IV NOW STA Stop: 05/16/24 19:55 Last Admin: 05/16/24 23:09 Dose: 2 mg Documented By: NOHELIA Imaging Data Radiologist's Impression: Chest CT 05/16/24 19:54 Exam(s): CT CHEST Without Contrast EXAM: CT Chest Without Intravenous Contrast CLINICAL HISTORY: pain, hx recent pna. TECHNIQUE: Axial computed tomography images of the chest without intravenous contrast. CTDI is 22.6 mGy and DLP is 1559.73 mGy-cm. Automated exposure control was utilized for the study. A dose lowering technique was utilized adhering to the principles of ALARA. COMPARISON: CT Chest 03/04/2024, CT abdomen 05-11-2024. FINDINGS: Lungs: Right lower lobe bronchial opacification. Bilateral dependent lower lobe atelectasis versus infiltrate, right greater than left. Pleural space: Unremarkable. No pneumothorax. No pleural effusion. Heart: Unremarkable. No cardiomegaly. No significant pericardial effusion. No significant coronary artery calcifications. Bones/joints: Posterior fusion hardware lower cervical and upper thoracic spine. No acute fracture. Soft tissues: Unremarkable. Vasculature: Unremarkable. No thoracic aortic aneurysm. Lymph nodes: Unremarkable. No enlarged lymph nodes. Abdomen: Status post cholecystectomy. IMPRESSION: Right lower lobe bronchial opacification. Bibasilar atelectasis versus infiltrate, right greater than left, increased from 05/11/2024. Findings may represent mucus plugging. Electronically signed by: Eusebio Chawla M.D. 05/17/24 01:42 AM Discharge Plan Visit Data Chief Complaint: Urinary Symptoms Stated Complaint: UTI, BURNING SENSATION, WOUND ON TAIL BONE ED Provider: Cooper Grande Discharge Problem: Acute UTI, Chronic pain, Quadriplegia Patient Disposition: Being Evaluated by Hospitalist Forms Stand Alone Forms: [facility] Prescriptions Prescriptions: No Action baclofen 10 mg tablet 20 mg PO TID lidocaine 5 % adhesive patch,medicated 1 patch topical DAILY PRN (Reason: Pain) docusate sodium 100 mg capsule 100 mg PO BID PRN (Reason: Constipation) hydroxyzine HCl 25 mg tablet 25 mg PO DAILY PRN (Reason: Anxiety) gabapentin 100 mg capsule 100 mg PO TID Culturelle 10 billion cell capsule 1 cap PO DAILY Spiriva Respimat 2.5 mcg/actuation mist 2 puff INHALATION DAILY Eliquis 5 mg tablet 5 mg PO BID pediatric multivitamin Tablet,Chewable 1 tab PO DAILY melatonin 3 mg Tablet 3 mg PO HS bisacodyl 10 mg Suppository 10 mg CA BID midodrine 2.5 mg Tablet 2.5 mg PO TID Rx Instructions: do not give last dose of day after 6PM or within 4 hrs of bedtime to give at 0700, 1200 and 1700 simethicone 80 mg Tablet,Chewable 80 mg PO TID Dakin's Solution 0.25 % Solution 1 irrig TOPICAL BID ascorbic acid (vitamin C) 500 mg Capsule 500 mg PO DAILY oxybutynin chloride 10 mg Tablet Extended Release 24hr 10 mg PO QAM collagenase clostridium histo. 250 unit/gram Ointment 1 applic TOPICAL DAILY naloxone 4 mg/actuation [place],Non-Aerosol 4 mg INTRANASAL UD PRN (Reason: opiod OD) Rx Instructions: 1 spray intranasal prn opiod OD Enema Disposable 19-7 gram/118 mL Enema 132 ml CA DAILY PRN (Reason: constipation) 30 Days Qty: 133 5RF sennosides-docusate sodium [Senokot-S] 8.6-50 mg Tablet 2 tab-cap PO HS Qty: 60 0RF pantoprazole 40 mg Tablet,Delayed Release (Dr/Ec) 40 mg PO QAM Qty: 30 0RF amoxicillin-pot clavulanate 875-125 mg tablet 1 tab PO BID Qty: 10 0RF phenazopyridine [Pyridium] 200 mg Tablet 200 mg PO TID PRN (Reason: Dysuria) Qty: 15 0RF budesonide-formoterol 160-4.5 mcg/actuation HFA aerosol inhaler 2 puff INHALATION AMHS lactulose 10 gram/15 mL solution 30 ml PO TID Referrals Referrals: Chay Aguilar DO [Primary Care Provider] -
[2024-05-16 20:51] LABS: Appearance Urine Clear (Clear); Specific Gravity Urine 1.019 (1.000-1.030)
[2024-05-16 21:00] LABS: Bacteria Urine 1+ (None Seen); Epithelial Cell Urine 0-2 /hpf (0-2); RBC Urine 0-2 /hpf (0-2); WBC Urine >50 /hpf (0-5)
[2024-05-16 21:37] LABS: Adenovirus PCR Not Detected (NotDetected); Bordetella parapertussis PCR Not Detected (NotDetected); Bordetella pertussis PCR Not Detected (NotDetected); Chlamydia pneumoniae PCR Not Detected (NotDetected); Coronavirus 229E PCR Not Detected (NotDetected); Coronavirus CoV-2 (COVID19)PCR Not Detected (NotDetected); Coronavirus HKU1 PCR Not Detected (NotDetected); Coronavirus NL63 PCR Not Detected (NotDetected); Coronavirus OC43PCR Not Detected (NotDetected); Human Metapneumovirus PCR Not Detected (NotDetected); Influenza A PCR Not Detected (NotDetected); Influenza B PCR Not Detected (NotDetected); Mycoplasma pneumoniae PCR Not Detected (NotDetected); Parainfluenza Virus 1 PCR Not Detected (NotDetected); Parainfluenza Virus 2 PCR Not Detected (NotDetected); Parainfluenza Virus 3 PCR Not Detected (NotDetected); Parainfluenza Virus 4 PCR Not Detected (NotDetected); Respiratory Syncytial VirusPCR Not Detected (NotDetected); Rhinovirus/Enterovirus PCR Not Detected (NotDetected)
[2024-05-16] MEDS: MoRPHine SULFATE 2 MG/ML CARP IV STA (23:09)
[2024-05-16 23:34] LABS: Basophils # (auto) 0.06 K/uL (0.00-0.20); Basophils % (auto) 0.7 %; Eosinophils # (auto) 0.32 K/uL (0.00-0.50); Hematocrit (blood only) 36.5 % (42.0-52.0); Hemoglobin 11.4 g/dl (14.0-18.0); Immature Granulocytes # (auto) 0.01 K/uL (0.01-0.20); Immature Granulocytes % (auto) 0.1 %; Lymphocytes # (auto) 1.63 K/uL (1.20-3.40); Lymphocytes % (auto) 20.1 %; Mean Corpuscular Hemoglobin 26.9 pg (25.0-34.0); Mean Corpuscular Hgb Conc 31.2 g/dL (32.0-36.0); Mean Corpuscular Volume 86.1 fL (80.0-100.0); Mean Platelet Volume 10.4 fL (9.4-12.4); Monocytes # (auto) 0.55 K/uL (0.11-0.59); Monocytes % (auto) 6.8 %; Neutrophils # (auto) 5.52 K/uL (1.40-6.50); Neutrophils % (auto) 68.3 %; Platelet Count 228 K/uL (130-400); RDW Coefficient of Variation 18.3 % (11.5-14.5); RDW Standard Deviation 57.7 fL (36.4-46.3); Red Blood Count 4.24 M/uL (4.70-6.10); White Blood Count 8.09 K/ul (4.8-10.8)
[2024-05-16 23:49] LABS: Alanine Aminotransferase 7 U/L (7-52); Albumin Globulin Ratio 1.3 (0.9-2); Albumin Level 3.5 gm/dl (3.4-5.0); Alkaline Phosphatase 97 U/L (34-104); Anion Gap 9 (3-11); Aspartate Aminotransferase 12 U/L (13-39); BUN Creatinine Ratio 12.3 (10-20); Bilirubin,Total 0.3 mg/dl (0.2-1.0); Blood Urea Nitrogen 7 mg/dl (6-23); Calcium 8.9 mg/dl (8.6-10.3); Carbon Dioxide 24 mmol/L (21-32); Chloride 111 mmol/L (98-107); Creatine Kinase 85 U/L (30-223); Globulin 2.6 gm/dl (2.5-4.0); Glucose 94 mg/dl (70-99(Fasting)); Lipase 15 U/L (11-82); Magnesium 1.7 mg/dl (1.7-2.4); Sodium 144 mmol/L (136-145); Total Protein 6.1 gm/dl (6.0-8.3)
[2024-05-16] MEDS: PIPERACILLIN/TAZOBACTAM 4.5 GM/100 ML BAG IV ONE (23:50)
[2024-05-16 23:55] LABS: Troponin I High Sensitivity 9.5 pg/ml (0-20)
[2024-05-17 00:04] LABS: Thyroid Stimulating Hormone 2.793 uIu/ml (0.300-4.500)
[2024-05-17] MEDS: ACETAMINOPHEN 1,000 MG/100 ML VIAL IV STA (00:44)
[2024-05-17] MEDS: BACLOFEN 20 MG TAB PO ONE (00:44)
--- NOTE | 2024-05-17 01:43 | CT Scan Report ---
Exam(s): CT CHEST Without Contrast EXAM: CT Chest Without Intravenous Contrast CLINICAL HISTORY: pain, hx recent pna. TECHNIQUE: Axial computed tomography images of the chest without intravenous contrast. CTDI is 22.6 mGy and DLP is 1559.73 mGy-cm. Automated exposure control was utilized for the study. A dose lowering technique was utilized adhering to the principles of ALARA. COMPARISON: CT Chest 03/04/2024, CT abdomen 05-11-2024. FINDINGS: Lungs: Right lower lobe bronchial opacification. Bilateral dependent lower lobe atelectasis versus infiltrate, right greater than left. Pleural space: Unremarkable. No pneumothorax. No pleural effusion. Heart: Unremarkable. No cardiomegaly. No significant pericardial effusion. No significant coronary artery calcifications. Bones/joints: Posterior fusion hardware lower cervical and upper thoracic spine. No acute fracture. Soft tissues: Unremarkable. Vasculature: Unremarkable. No thoracic aortic aneurysm. Lymph nodes: Unremarkable. No enlarged lymph nodes. Abdomen: Status post cholecystectomy. IMPRESSION: Right lower lobe bronchial opacification. Bibasilar atelectasis versus infiltrate, right greater than left, increased from 05/11/2024. Findings may represent mucus plugging. Electronically signed by: Eusebio Chawla M.D. 05/17/24 01:42 AM
[2024-05-17] MEDS: LACTATED RINGER'S 500 ML IV ONE (01:56)
[2024-05-17] MEDS: MIDODRINE HCL 2.5 MG TAB PO ONE (01:56)
--- NOTE | 2024-05-17 01:59 | CT Scan Report ---
Exam(s): CT ABDOMEN + PELVIS Without Contrast EXAM: CT Abdomen and Pelvis Without Intravenous Contrast CLINICAL HISTORY: Reason for exam: L abd pain, hx chronic osteo/wound. TECHNIQUE: Axial computed tomography images of the abdomen and pelvis without intravenous contrast. CTDI is 22.6 mGy and DLP is 1559.23 mGy-cm. Automated exposure control was utilized for the study. A dose lowering technique was utilized adhering to the principles of ALARA. COMPARISON: No relevant prior studies available. FINDINGS: Lung bases: Airspace consolidation at the RIGHT lung base, concerning for pneumonia. ABDOMEN: Liver: Unremarkable. Gallbladder and bile ducts: Unremarkable. No calcified stones. No ductal dilation. Pancreas: Unremarkable. No ductal dilation. Spleen: Unremarkable. No splenomegaly. Adrenals: Unremarkable. No mass. Kidneys and ureters: Bilateral nonobstructing renal stones. No obstructive uropathy. Stomach and bowel: Diverticulosis, without acute diverticulitis. No small bowel obstruction. No free intraperitoneal air. PELVIS: Appendix: No findings to suggest acute appendicitis. Bladder: Suprapubic catheter terminates in the urinary bladder. If there is concern for UTI, urinalysis recommended. No stones. Reproductive: Unremarkable as visualized. ABDOMEN and PELVIS: Intraperitoneal space: Unremarkable. No free air. No significant fluid collection. Bones/joints: Stage IV sacral decubitus ulcer which extends to the sacral bone. Erosion versus resection of the sacrum at the S3 level. No acute fracture. No dislocation. Soft tissues: Unremarkable. Vasculature: Unremarkable. No abdominal aortic aneurysm. Lymph nodes: Unremarkable. No enlarged lymph nodes. IMPRESSION: 1. Airspace consolidation at the RIGHT lung base, concerning for pneumonia. 2. Stage IV sacral decubitus ulcer which extends to the sacral bone. Erosion versus resection of the sacrum at the S3 level. 3. Bilateral nonobstructing renal stones. No obstructive uropathy. 4. Diverticulosis, without acute diverticulitis. No small bowel obstruction. No free intraperitoneal air. Electronically signed by: John Paul Roberts MD 05/17/24 01:58 AM
--- NOTE | 2024-05-17 02:56 | History & Physical Report ---
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 Patient was recently in the hospital and discharged on Augmentin for possible UTI and pneumonia. Patient had recurrent admissions in the recent past. Patient called EMS yesterday for burning sensation and as blood pressure was low they took him to the [facility] and [facility] planned to send him to [place] but he signed out AMA and went home. Called 911 again and this time they took him to [facility]. Sanchez was changed which seems to have clogged and was sent home with prescriptions of cefdinir and Cipro. Seems took 1 dose around lunchtime. But still was having diffuse burning sensation and called EMS and came here. Patient concerned about worsening infection. Has cough and bringing up phlegm. Denies fevers. Denies chest pain. Denies shortness of breath. States he is eating okay. Has 24-hour nursing care at home. Denies any headache. No nausea. No abdominal pain. Bowels are moving okay. Hemodynamics are okay. Possible pneumonia Possible mucosal plugging on imaging studies IV Zosyn Pulmonary consult Possible UTI Zosyn Will follow the cultures Hypokalemia Will replace Labile blood pressure autonomic dysreflexia Midodrine for hypotension Continue midodrine 2.5 mg 3 times daily Will monitor History of asymptomatic bradycardia Patient was advised to have outpatient ZIO monitor Neurogenic bladder with chronic indwelling suprapubic catheter History of nephrolithiasis Follow cultures Chronic sacral decubitus ulcer stage IV Chronic osteomyelitis Wound care COPD Tobacco abuse Home inhalers Substance use disorder to avoid narcotics History of PE Eliquis History of HCV Seems s/p treatment Mood disorder On duloxetine Chronic pain Gabapentin and baclofen and celecoxib as needed 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 Patient was recently in the hospital and discharged on Augmentin for possible UTI and pneumonia. Patient had recurrent admissions in the recent past. Patient called EMS yesterday for burning sensation and as blood pressure was low they took him to the [facility] planned to send him to [place] but he signed out AMA and went home. Called 911 again and this time they took him to [facility]. Sanchez was changed which seems to have clogged and was sent home with prescriptions of cefdinir and Cipro. Seems took 1 dose around lunchtime. But still was having diffuse burning sensation and called EMS and came here. Patient concerned about worsening infection. Has cough and bringing up phlegm. Denies fevers. Denies chest pain. Denies shortness of breath. States he is eating okay. Has 24-hour nursing care at home. Denies any headache. No nausea. No abdominal pain. Bowels are moving okay. Hemodynamics are okay. Past medical history. As mentioned above Past surgical history. Bladder aspiration by suprapubic cath. Cystoscopy. Drainage of the right lower leg abscess. Incision of right first metatarsal. Neck and lumbar fusion. Bilateral arm surgery. Right ankle surgery. Laparoscopic appendectomy. Cholecystectomy. Social history. Smokes 1 pack a day for 31 years. Vaping some days. Alcohol rarely currently. Amphetamines, marijuana and cocaine use. Social history. Mother had lung cancer. Father had heart attack. Allergies Allergy/AdvReac Type Severity Reaction Status Date / Time No Known Allergies Allergy Verified 05/08/24 23:38 Home Medications Medication Instructions Recorded Confirmed Type Lactobacillus rhamnosus GG 10 1 cap PO DAILY 04/22/24 05/17/24 History billion cell capsule (Culturelle) apixaban 5 mg tablet (Eliquis) 5 mg PO BID 04/22/24 05/17/24 History ascorbic acid (vitamin C) 500 mg 500 mg PO DAILY 04/22/24 05/17/24 History capsule baclofen 10 mg tablet 20 mg PO TID Spasms 04/22/24 05/17/24 History bisacodyl 10 mg rectal suppository 10 mg MT BID 04/22/24 05/17/24 History collagenase clostridium histo. 250 1 applic topical DAILY 04/22/24 05/17/24 History unit/gram topical ointment docusate sodium 100 mg capsule 100 mg PO BID PRN Constipation 04/22/24 05/17/24 History gabapentin 100 mg capsule 100 mg PO TID 04/22/24 05/17/24 History hydroxyzine HCl 25 mg tablet 25 mg PO DAILY PRN Anxiety 04/22/24 05/17/24 History lidocaine 5 % topical patch 1 patch topical DAILY PRN Pain 04/22/24 05/17/24 History melatonin 3 mg tablet 3 mg PO HS 04/22/24 05/17/24 History midodrine 2.5 mg tablet 2.5 mg PO TID 04/22/24 05/17/24 History naloxone 4 mg/actuation nasal spray 4 mg intranasal UD PRN opiod OD 04/22/24 05/17/24 History oxybutynin chloride 10 mg 10 mg PO QAM 04/22/24 05/17/24 History tablet,extended release 24 hr pediatric multivitamin 1 tab PO DAILY 04/22/24 05/17/24 History simethicone 80 mg chewable tablet 80 mg PO TID 04/22/24 05/17/24 History sodium hypochlorite 0.25 % 1 irrig topical BID 04/22/24 05/17/24 History solution (Dakin's Solution) tiotropium bromide 2.5 2 puff inhalation DAILY 04/22/24 05/17/24 History mcg/actuation mist for inhalation (Spiriva Respimat) sennosides 8.6 mg-docusate sodium 2 tab-cap (2 x 8.6-50 mg) PO HS 04/24/24 05/17/24 Rx 50 mg tablet (Senokot-S) #60 tabs sodium phosphates 19 gram-7 132 ml MT DAILY PRN constipation 04/24/24 05/17/24 Rx gram/118 mL enema (Enema 30 days #133 mL Disposable) amoxicillin 875 mg-potassium 1 tab PO BID #10 tabs 05/11/24 05/17/24 Rx clavulanate 125 mg tablet pantoprazole 40 mg tablet,delayed 40 mg PO QAM #30 tabs 05/11/24 05/17/24 Rx release phenazopyridine 200 mg tablet 200 mg PO TID PRN Dysuria #15 tabs 05/11/24 05/17/24 Rx (Pyridium) budesonide-formoterol HFA 160 2 puff inhalation AMHS 05/17/24 05/17/24 History mcg-4.5 mcg/actuation aerosol inhaler lactulose 10 gram/15 mL oral 30 ml PO TID 05/17/24 05/17/24 History solution Past Med/Surg History Problem List (Updated 05/17/24 @ 03:48 by Hope Liu) Acute UTI (Acute) Pneumonia (Acute) Cough (Acute) Left sided abdominal pain (Acute) Quadriplegia (Acute) Acute UTI (Acute) Hypotension (Acute) Abdominal pain Acute UTI (Acute) Autonomic dysreflexia Constipation Hydronephrosis (Acute) Acute urinary retention (Acute) Leukocytosis (Acute) Complication, blocked suprapubic catheter Hypokalemia (Acute) Hypomagnesemia (Acute) Anemia (Acute) Quadriplegia (Acute) Sacral decubitus ulcer (Acute) Acute UTI (Acute) Hypotension (Acute) Encephalopathy Pneumonia (Acute) Complicated urinary tract infection (Acute Unknown) Change or removal of nonsurgical wound dressing Acute hypoxemic respiratory failure (Acute) Chest pain (Acute) Severe sepsis (Acute) MRSA carrier Pneumonia (Acute) Hypoxic respiratory failure (Acute) 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 Leg wound, right Leg wound, left History of pulmonary embolism Hypoxia (Acute) RSV (respiratory syncytial virus infection) Chronic pain (Acute) Suprapubic catheter (Acute) Complicated UTI (urinary tract infection) (Acute) Sacral decubitus ulcer, stage IV (Acute) Chronic osteomyelitis of sacrum Medical History Abdominal pain Aspiration pneumonitis Pneumonia Paraplegia Surgical History No pertinent past surgical history Social History Smoking Status: Former smoker Tobacco Type: Cigarettes Cigarettes Per Day: 50-60; Second Hand Exposure: Yes; Do You Dip or Chew Tobacco: Yes; Hx Alcohol Use: No Hx Substance Use: No Preferred Language: Divehi Communication Ability: Effective Communication Ability Comment: difficulty writing Certified Pharmacist Assistant Required: No Beliefs That Will Affect Care: None Current Living Situation: Alone 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 28/02 Other Information That Helps Us Care for You: No Feels Safe at Home: Yes Safety Concerns: Feels Safe At This Time Assistive Devices: Wheelchair Review of Systems Review of Systems: All systems reviewed & are unremarkable except as noted in HPI & below Physical Exam Physical Exam: General- Not in acute distress Head- atraumatic Eyes- PERRL. ENT- oropharynx dry Lungs- clear to auscultation no wheezing or crackles Heart- regular rate ,bradycardia ; no murmur, no gallop. Abdomen- normal bowel sounds, soft, no discomfort, no distension. Supra pubic cath site no erythema or drainage seen Extremities- no pretibial edema, no erythema seen Neuro- alert, oriented PERRL, no facial palsy; no dysarthria; moves upper extremities Results & Data Results & Data Vital Signs (Past 12 Hours) Vital Signs Temp Pulse Pulse Resp BP BP Pulse Ox 05/17/24 01:38 74 20 118/71 93 05/17/24 01:02 75 86/54 L 05/16/24 23:54 82 20 107/62 05/16/24 23:50 89 05/16/24 20:33 71 18 95 05/16/24 20:33 71 18 124/76 95 05/16/24 19:43 78 05/16/24 19:21 37.4 C 78 20 133/87 94 O2 Del Method 05/17/24 01:38 Room Air 05/17/24 01:02 05/16/24 23:54 05/16/24 23:50 05/16/24 20:33 Room Air 05/16/24 20:33 Room Air 05/16/24 19:43 05/16/24 19:21 Room Air Diagnostic Findings Laboratory Results WBC 8.09 K/ul (4.8-10.8) 05/16/24 23:13 RBC 4.24 M/uL (4.70-6.10) L 05/16/24 23:13 Hgb 11.4 g/dl (14.0-18.0) L 05/16/24 23:13 Hct 36.5 % (42.0-52.0) L 05/16/24 23:13 MCV 86.1 fL (80.0-100.0) 05/16/24 23:13 MCH 26.9 pg (25.0-34.0) 05/16/24 23:13 MCHC 31.2 g/dL (32.0-36.0) L 05/16/24 23:13 RDW Std Deviation 57.7 fL (36.4-46.3) H 05/16/24 23:13 RDW Coeff of Adelia 18.3 % (11.5-14.5) H 05/16/24 23:13 Plt Count 228 K/uL (130-400) 05/16/24 23:13 MPV 10.4 fL (9.4-12.4) 05/16/24 23:13 Immature Gran % (Auto) 0.1 % 05/16/24 23:13 Neut % (Auto) 68.3 % 05/16/24 23:13 Lymph % (Auto) 20.1 % 05/16/24 23:13 Branch % (Auto) 6.8 % 05/16/24 23:13 Eos % (Auto) 4.0 % 05/16/24 23:13 Baso % (Auto) 0.7 % 05/16/24 23:13 Neut # (Auto) 5.52 K/uL (1.40-6.50) 05/16/24 23:13 Lymph # (Auto) 1.63 K/uL (1.20-3.40) 05/16/24 23:13 Branch # (Auto) 0.55 K/uL (0.11-0.59) 05/16/24 23:13 Eos # (Auto) 0.32 K/uL (0.00-0.50) 05/16/24 23:13 Baso # (Auto) 0.06 K/uL (0.00-0.20) 05/16/24 23:13 Immature Gran # (Auto) 0.01 K/uL (0.01-0.20) 05/16/24 23:13 Sodium 144 mmol/L (136-145) 05/16/24 23:13 Potassium 3.0 mmol/L (3.5-5.1) L 05/16/24 23:13 Chloride 111 mmol/L (98-107) H 05/16/24 23:13 Carbon Dioxide 24 mmol/L (21-32) 05/16/24 23:13 Anion Gap 9 (3-11) 05/16/24 23:13 BUN 7 mg/dl (6-23) 05/16/24 23:13 Creatinine 0.57 mg/dl (0.6-1.4) L 05/16/24 23:13 Est Cr Clr Drug Dosing Not Reportable 05/16/24 23:13 eGFR 121.69 05/16/24 23:13 BUN/Creatinine Ratio 12.3 (10-20) 05/16/24 23:13 Glucose 94 mg/dl (70-99(Fasting)) 05/16/24 23:13 Lactate 1.5 mmol/L (0.4-2.0) 05/16/24 23:13 Calcium 8.9 mg/dl (8.6-10.3) 05/16/24 23:13 Magnesium 1.7 mg/dl (1.7-2.4) 05/16/24 23:13 Total Bilirubin 0.3 mg/dl (0.2-1.0) 05/16/24 23:13 AST 12 U/L (13-39) L 05/16/24 23:13 ALT 7 U/L (7-52) 05/16/24 23:13 Alkaline Phosphatase 97 U/L (34-104) 05/16/24 23:13 Total Creatine Kinase 85 U/L (30-223) 05/16/24 23:13 Troponin I High Sens 9.5 pg/ml (0-20) 05/16/24 23:13 Total Protein 6.1 gm/dl (6.0-8.3) 05/16/24 23:13 Albumin 3.5 gm/dl (3.4-5.0) 05/16/24 23:13 Globulin 2.6 gm/dl (2.5-4.0) 05/16/24 23:13 Albumin/Globulin Ratio 1.3 (0.9-2) 05/16/24 23:13 Lipase 15 U/L (11-82) 05/16/24 23:13 Procalcitonin < 0.02 ng/ml (0-0.5) 05/16/24 23:13 TSH 2.793 uIu/ml (0.300-4.500) 05/16/24 23:13 Urine Color See Comment 05/16/24 20:30 Urine Appearance Clear (Clear) 05/16/24 20:30 Urine pH Not Reportable 05/16/24 20:30 Ur Specific [place] 1.019 (1.000-1.030) 05/16/24 20:30 Urine Protein Not Reportable 05/16/24 20:30 Urine Glucose (UA) Not Reportable 05/16/24 20:30 Urine Ketones Not Reportable 05/16/24 20:30 Urine Blood Not Reportable 05/16/24 20:30 Urine Nitrite Not Reportable 05/16/24 20:30 Urine Bilirubin Not Reportable 05/16/24 20:30 Urine Urobilinogen Not Reportable 05/16/24 20:30 Ur Leukocyte Esterase Not Reportable 05/16/24 20:30 Urine RBC 0-2 /hpf (0-2) 05/16/24 20:30 Urine WBC >50 /hpf (0-5) H 05/16/24 20:30 Ur Epithelial Cells 0-2 /hpf (0-2) 05/16/24 20:30 Urine Bacteria 1+ (None Seen) H 05/16/24 20:30 Urine Yeast Present (None Prsent) A 05/16/24 20:30 Adenovirus (PCR) Not Detected (NotDetected) 05/16/24 20:30 B. pertussis DNA (PCR) Not Detected (NotDetected) 05/16/24 20:30 B.parapertussis DNA PCR Not Detected (NotDetected) 05/16/24 20:30 C. pneumoniae DNA (PCR) Not Detected (NotDetected) 05/16/24 20:30 Coronavirus OC43 (PCR) Not Detected (NotDetected) 05/16/24 20:30 Coronavirus HKU1 (PCR) Not Detected (NotDetected) 05/16/24 20:30 Coronavirus 229E (PCR) Not Detected (NotDetected) 05/16/24 20:30 SARS-CoV-2 (PCR) Not Detected (NotDetected) 05/16/24 20:30 Coronavirus NL63 (PCR) Not Detected (NotDetected) 05/16/24 20:30 Human Metapneumovir PCR Not Detected (NotDetected) 05/16/24 20:30 Influenza Type A (PCR) Not Detected (NotDetected) 05/16/24 20:30 Influenza Type B (PCR) Not Detected (NotDetected) 05/16/24 20:30 M. pneumoniae (PCR) Not Detected (NotDetected) 05/16/24 20:30 Parainfluenza 1 (PCR) Not Detected (NotDetected) 05/16/24 20:30 Parainfluenza 2 (PCR) Not Detected (NotDetected) 05/16/24 20:30 Parainfluenza 3 (PCR) Not Detected (NotDetected) 05/16/24 20:30 Parainfluenza 4 (PCR) Not Detected (NotDetected) 05/16/24 20:30 RSV (PCR) Not Detected (NotDetected) 05/16/24 20:30 Entero/Rhino (PCR) Not Detected (NotDetected) 05/16/24 20:30 Impressions Abdomen/Pelvis CT 05/16/24 19:54 Exam(s): CT ABDOMEN + PELVIS Without Contrast EXAM: CT Abdomen and Pelvis Without Intravenous Contrast CLINICAL HISTORY: Reason for exam: L abd pain, hx chronic osteo/wound. TECHNIQUE: Axial computed tomography images of the abdomen and pelvis without intravenous contrast. CTDI is 22.6 mGy and DLP is 1559.23 mGy-cm. Automated exposure control was utilized for the study. A dose lowering technique was utilized adhering to the principles of ALARA. COMPARISON: No relevant prior studies available. FINDINGS: Lung bases: Airspace consolidation at the RIGHT lung base, concerning for pneumonia. ABDOMEN: Liver: Unremarkable. Gallbladder and bile ducts: Unremarkable. No calcified stones. No ductal dilation. Pancreas: Unremarkable. No ductal dilation. Spleen: Unremarkable. No splenomegaly. Adrenals: Unremarkable. No mass. Kidneys and ureters: Bilateral nonobstructing renal stones. No obstructive uropathy. Stomach and bowel: Diverticulosis, without acute diverticulitis. No small bowel obstruction. No free intraperitoneal air. PELVIS: Appendix: No findings to suggest acute appendicitis. Bladder: Suprapubic catheter terminates in the urinary bladder. If there is concern for UTI, urinalysis recommended. No stones. Reproductive: Unremarkable as visualized. ABDOMEN and PELVIS: Intraperitoneal space: Unremarkable. No free air. No significant fluid collection. Bones/joints: Stage IV sacral decubitus ulcer which extends to the sacral bone. Erosion versus resection of the sacrum at the S3 level. No acute fracture. No dislocation. Soft tissues: Unremarkable. Vasculature: Unremarkable. No abdominal aortic aneurysm. Lymph nodes: Unremarkable. No enlarged lymph nodes. IMPRESSION: 1. Airspace consolidation at the RIGHT lung base, concerning for pneumonia. 2. Stage IV sacral decubitus ulcer which extends to the sacral bone. Erosion versus resection of the sacrum at the S3 level. 3. Bilateral nonobstructing renal stones. No obstructive uropathy. 4. Diverticulosis, without acute diverticulitis. No small bowel obstruction. No free intraperitoneal air. Electronically signed by: John Paul Roberts MD 05/17/24 01:[address] 05/16/24 19:54 Exam(s): CT CHEST Without Contrast EXAM: CT Chest Without Intravenous Contrast CLINICAL HISTORY: pain, hx recent pna. TECHNIQUE: Axial computed tomography images of the chest without intravenous contrast. CTDI is 22.6 mGy and DLP is 1559.73 mGy-cm. Automated exposure control was utilized for the study. A dose lowering technique was utilized adhering to the principles of ALARA. COMPARISON: CT Chest 03/04/2024, CT abdomen 05-11-2024. FINDINGS: Lungs: Right lower lobe bronchial opacification. Bilateral dependent lower lobe atelectasis versus infiltrate, right greater than left. Pleural space: Unremarkable. No pneumothorax. No pleural effusion. Heart: Unremarkable. No cardiomegaly. No significant pericardial effusion. No significant coronary artery calcifications. Bones/joints: Posterior fusion hardware lower cervical and upper thoracic spine. No acute fracture. Soft tissues: Unremarkable. Vasculature: Unremarkable. No thoracic aortic aneurysm. Lymph nodes: Unremarkable. No enlarged lymph nodes. Abdomen: Status post cholecystectomy. IMPRESSION: Right lower lobe bronchial opacification. Bibasilar atelectasis versus infiltrate, right greater than left, increased from 05/11/2024. Findings may represent mucus plugging. Electronically signed by: Eusebio Chawla M.D. 05/17/24 01:42 AM ECG Additional Comments: ECG. Normal sinus rhythm rate 63. No significant change was found. Code Status & VTE Plan VTE Prophylaxis Plan VTE Prophylaxis will be ordered: Yes (1) Pneumonia Laterality: right Lung location: lower lobe of lung Pneumonia type: due to unspecified organism Qualified Code(s): J18.9 - Pneumonia, unspecified organism
[2024-05-17] MEDS: MoRPHine SULFATE 2 MG/ML CARP IV STA (03:08)
[2024-05-17] MEDS ORDERED: NALOXONE NASAL SPRAY 4 MG ER HOMEPACK PRN (04:01)
[2024-05-17] MEDS ORDERED: SOD PHOSPHATE/SOD BIPHOSPHATE ENEMA 132 ML BTL PR PRN (04:01)
[2024-05-17] MEDS ORDERED: POLYETHYLENE (MIRALAX) 17 GM PACK PO PRN (04:01)
[2024-05-17] MEDS ORDERED: LIDOCAINE 5% 1 PATCH TD PRN (04:01)
[2024-05-17] MEDS ORDERED: hydrOXYzine HCl 25 MG TAB PO PRN (04:01)
[2024-05-17] MEDS ORDERED: ACETAMINOPHEN 325 MG TAB PO PRN (04:01)
[2024-05-17] MEDS: KETOROLAC TROMETHAMINE 15 MG/ML VIAL IV ONE (05:01)
[2024-05-17] MEDS: POTASSIUM CHLORIDE CRTAB 20 MEQ TABCR PO STA (05:01)
[2024-05-17] MEDS: bisacodyL 10 MG SUPP PR STA (05:01)
[2024-05-17] MEDS: SIMETHICONE 80 MG CHEW PO ONE (05:01)
[2024-05-17] MEDS: PIPERACILLIN/TAZOBACTAM 4.5 GM/100 ML BAG IV SCH (05:08)
[2024-05-17] MEDS: Patient's HEIGHT &/or WEIGHT Needed STA (05:08)
[2024-05-17 08:00] LABS: Basophils # (auto) 0.05 K/uL (0.00-0.20); Basophils % (auto) 0.8 %; Eosinophils # (auto) 0.36 K/uL (0.00-0.50); Eosinophils % (auto) 5.5 %; Hematocrit (blood only) 35.6 % (42.0-52.0); Hemoglobin 11.2 g/dl (14.0-18.0); Immature Granulocytes # (auto) 0.02 K/uL (0.01-0.20); Immature Granulocytes % (auto) 0.3 %; Mean Corpuscular Hemoglobin 27.1 pg (25.0-34.0); Mean Corpuscular Hgb Conc 31.5 g/dL (32.0-36.0); Mean Platelet Volume 10.5 fL (9.4-12.4); Monocytes % (auto) 9.2 %; Neutrophils # (auto) 3.82 K/uL (1.40-6.50); Neutrophils % (auto) 58.2 %; Platelet Count 227 K/uL (130-400); RDW Coefficient of Variation 18.2 % (11.5-14.5); RDW Standard Deviation 57.6 fL (36.4-46.3); Red Blood Count 4.14 M/uL (4.70-6.10); White Blood Count 6.55 K/ul (4.8-10.8)
[2024-05-17 08:15] LABS: BUN Creatinine Ratio 16.7 (10-20); Calcium 8.5 mg/dl (8.6-10.3); Creatinine Clr Calc Pharmacy 214.3 ml/min; Magnesium 1.7 mg/dl (1.7-2.4); Potassium 3.3 mmol/L (3.5-5.1)
[2024-05-17] MEDS: APIXABAN 5 MG TABLET PO SCH (08:15)
--- NOTE | 2024-05-17 08:16 | Pulmonary Consultation ---
Date of Consultation May 17, 2024 Assessment & Plan (1) Pneumonia: Laterality: right Lung location: lower lobe of lung Pneumonia type: due to unspecified organism Qualified Code(s): J18.9 - Pneumonia, unspecified organism (2) Acute UTI: (3) Cough: Cough type: acute Qualified Code(s): R05.1 - Acute cough (4) History of pulmonary embolism: Plan IMPRESSION: 48-year-old male with history of quadriplegia, recurrent UTIs, and recurrent pneumonia concerning for aspiration who presents in the setting of the same. Pulmonary medicine consulted for further evaluation and recommendations. RECOMMENDATIONS: 1. Pneumonia - Bilateral lower lobe infiltrative processes RIGHT greater than left appreciated on imaging studies. This has changed since comparative CT noted in 03/04. During that evaluation, the patient did seem to have a degree of atelectasis of the lower lung forrester. Do presume this to be more related to an acute infiltrative process, however. Would recommend aggressive pulmonary toileting including flutter valve, chest vest therapy, Mucomyst, hypertonic saline and as needed DuoNebs. Consideration for bronchoscopic evaluation with airway clearing and sampling, however the patient is unable to participate in conversation at this time and would defer this until he is more awake. If he is able to clear his airway without intervention, this certainly would be preferred. Sputum cultures could be obtained if able. Agree with broad-spectrum antibiotic coverage, particularly for anaerobes in the setting of concern for aspiration. Consideration of ASW/ASUW TACTICAL AIR CONTROLLER evaluation. Concerned that patient's recreational use certainly could put him at risk for recurrent aspiration events, however. 2. COPD - Patient with prior diagnosis of COPD. He does not have significant emphysematous changes noted on his CT. Unfortunately, I am unable to appreciate any prior pulmonary function testing. Regardless, the patient seems to be well- controlled on his home inhaler. Continue with triple therapy as you are for now. Certainly, if the patient were to have worsening of bronchospasm or refractory symptoms, additional nebulized therapies could be considered at this time. Patient would benefit from smoking cessation, obviously. 3. Cough - Secondary to above. 4. History of pulmonary embolism - Anticoagulated on Eliquis. Medication on hold for now until he is more awake to discuss procedural intervention. Thank you for allowing us to participate in the care of this patient. Pulmonary medicine will follow along. Supervising Physician Co-Signing Physician Notes I saw and evaluated the patient with Reji Matthews PA-C, and agree with findings and plan as documented in the note. CT chest 05/16/2024 personally reviewed: Elevated right hemidiaphragm Dependent atelectasis of bilateral lower lobes There are secretions in the right main going into the right lower lobe No significant mediastinal lymphadenopathy At the time of examination patient was resting comfortably, he was actually somnolent Saturation was 92-93% on room air Denies any chest pain Denies any difficulty swallowing. Does complain of phlegm which is not able to bring up No dysuria, no diarrhea Constitutional: No acute distress HEENT: EOMI, PERRLA Respiratory system: Good air entry bilaterally, no wheeze, no rhonchi, positive crackles bilaterally CVS: S1-S2 positive, no murmurs or gallops Abdomen: Soft, nontender, nondistended, positive bowel sounds x4 Extremities: +2 pulses bilaterally radialis/ dorsalis pedis, no cyanosis, +2 pitting edema bilateral lower extremity Neuro: Somnolent, easily arousable, answering questions appropriately Psych: Flat mood and affect G/U: Suprapubic catheter Plan: Originally plan was to see if we can do bronchoscopy on the patient to clear the secretions of the right main but the patient was reluctant Would recommend Mucinex, Mucomyst nebulized, CoughAssist. Recommend swallow eval to rule out aspiration Continue with antibiotics for possible aspiration pneumonia Please note the above document was generated using voice recognition software. It may contain grammatical, syntax or spelling errors.Any formal questions or concerns about the content, text or information contained within the body of this dictation should be directly addressed to the provider for clarification. History of Present Illness Reason for Consultation: pneumonia, mucus plugging Requesting Physician: Dr. 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 The patient had been discharged on 05/11/24 with Augmentin for UTI and pneumonia. The patient was transported to [facility] from home secondary to associated hypotension. It was felt best for the patient be transferred to [facility], but the patient signed out AGAINST MEDICAL ADVICE and went home. Patient then contacted EMS again where he was subsequently taken to [facility] where he was noted to have a clogged urinary catheter. The catheter was exchanged and he was discharged home on Cipro. Unfortunately, his symptoms declined and he was brought to [facility] where he underwent evaluation with findings concerning for bilateral lower lobe pneumonia with concern for aspiration. Patient was started on Zosyn. Pulmonary medicine consulted given the recurrence of this pneumonia process and concerns for mucous plugging. Upon evaluation in room a 3 in the emergency department, the patient is drowsy and mildly awakes to painful stimuli. He is unable to provide significant historical information at this time. Allergies Allergy/AdvReac Type Severity Reaction Status Date / Time Opioids - Morphine Analogues AdvReac severe Verified 05/17/24 15:46 bradycardia Home Medications Medication Instructions Recorded Confirmed Type Lactobacillus rhamnosus GG 10 1 cap PO DAILY 04/22/24 05/17/24 History billion cell capsule (Culturelle) apixaban 5 mg tablet (Eliquis) 5 mg PO BID 04/22/24 05/17/24 History ascorbic acid (vitamin C) 500 mg 500 mg PO DAILY 04/22/24 05/17/24 History capsule baclofen 10 mg tablet 20 mg PO TID Spasms 04/22/24 05/17/24 History bisacodyl 10 mg rectal suppository 10 mg ID BID 04/22/24 05/17/24 History collagenase clostridium histo. 250 1 applic topical DAILY 04/22/24 05/17/24 History unit/gram topical ointment docusate sodium 100 mg capsule 100 mg PO BID PRN Constipation 04/22/24 05/17/24 History gabapentin 100 mg capsule 100 mg PO TID 04/22/24 05/17/24 History hydroxyzine HCl 25 mg tablet 25 mg PO DAILY PRN Anxiety 04/22/24 05/17/24 History lidocaine 5 % topical patch 1 patch topical DAILY PRN Pain 04/22/24 05/17/24 History melatonin 3 mg tablet 3 mg PO HS 04/22/24 05/17/24 History midodrine 2.5 mg tablet 2.5 mg PO TID 04/22/24 05/17/24 History naloxone 4 mg/actuation nasal spray 4 mg intranasal UD PRN opiod OD 04/22/24 05/17/24 History oxybutynin chloride 10 mg 10 mg PO QAM 04/22/24 05/17/24 History tablet,extended release 24 hr pediatric multivitamin 1 tab PO DAILY 04/22/24 05/17/24 History simethicone 80 mg chewable tablet 80 mg PO TID 04/22/24 05/17/24 History sodium hypochlorite 0.25 % 1 irrig topical BID 04/22/24 05/17/24 History solution (Dakin's Solution) tiotropium bromide 2.5 2 puff inhalation DAILY 04/22/24 05/17/24 History mcg/actuation mist for inhalation (Spiriva Respimat) sennosides 8.6 mg-docusate sodium 2 tab-cap (2 x 8.6-50 mg) PO HS 04/24/24 05/17/24 Rx 50 mg tablet (Senokot-S) #60 tabs sodium phosphates 19 gram-7 132 ml ID DAILY PRN constipation 04/24/24 05/17/24 Rx gram/118 mL enema (Enema 30 days #133 mL Disposable) amoxicillin 875 mg-potassium 1 tab PO BID #10 tabs 05/11/24 05/17/24 Rx clavulanate 125 mg tablet pantoprazole 40 mg tablet,delayed 40 mg PO QAM #30 tabs 05/11/24 05/17/24 Rx release phenazopyridine 200 mg tablet 200 mg PO TID PRN Dysuria #15 tabs 05/11/24 05/17/24 Rx (Pyridium) budesonide-formoterol HFA 160 2 puff inhalation [facility] 05/17/24 05/17/24 History mcg-4.5 mcg/actuation aerosol inhaler lactulose 10 gram/15 mL oral 30 ml PO TID 05/17/24 05/17/24 History solution Patient History Medical History Abdominal pain Aspiration pneumonitis Pneumonia Paraplegia Surgical History No pertinent past surgical history Social History Smoking Status: Former smoker Tobacco Type: Cigarettes Cigarettes Per Day: 50-60; Second Hand Exposure: Yes; Do You Dip or Chew Tobacco: Yes; Hx Alcohol Use: No Hx Substance Use: No Preferred Language: Bhutanese Communication Ability: Effective Communication Ability Comment: difficulty writing Regional Agronomist Required: No Beliefs That Will Affect Care: None Current Living Situation: Alone 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 28/02 Other Information That Helps Us Care for You: No Feels Safe at Home: Yes Safety Concerns: Feels Safe At This Time Assistive Devices: Hospital Bed, Mechanical Lift and Scooter/Electric Scooter Review of Systems Review of Systems: Unable to obtain. Physical Exam Physical Exam: VITAL SIGNS Vital signs and nursing notes were reviewed. GENERAL 48-year-old male appearing his stated age who is in no acute distress. Communicates well with provider and answers questions appropriately. NOSE Midline and without cyanosis. MOUTH/OROPHARYNX Without perioral cyanosis. NECK Neck with FROM. LUNGS Chest wall evaluation demonstrates normal chest wall A:P diameter. Auscultation reveals coarse breath sounds at the RIGHT sided lung base. No overt bronchospasm appreciated. CARDIAC RRR with S1/S2. No murmur, rubs, or gallops appreciated. ABDOMEN Abdominal inspection demonstrates obese. BS normoactive all four quadrants. No tenderness, palpable masses, or ascites noted. EXTREMITIES Nail clubbing not present. No peripheral cyanosis. Results & Data Results & Data Vital Signs (Past 12 Hours) Vital Signs Temp Pulse Pulse Resp BP BP Pulse Ox 05/17/24 06:53 69 05/17/24 05:15 37.1 C 05/17/24 04:11 05/17/24 04:03 81 15 127/89 96 05/17/24 03:55 75 05/17/24 03:03 71 24 05/17/24 01:38 74 20 118/71 93 05/17/24 01:02 75 86/54 L 05/16/24 23:54 82 20 107/62 05/16/24 23:50 89 05/16/24 20:33 71 18 95 05/16/24 20:33 71 18 124/76 95 O2 Del Method 05/17/24 06:53 05/17/24 05:15 05/17/24 04:11 Room Air 05/17/24 04:03 Room Air 05/17/24 03:55 05/17/24 03:03 05/17/24 01:38 Room Air 05/17/24 01:02 05/16/24 23:54 05/16/24 23:50 05/16/24 20:33 Room Air 05/16/24 20:33 Room Air PG Care Time/CCT Total # of Minutes Spent Total Time Spent with Patient: Total time spent is greater than 50% in coordination of care (as documented) at patient's floor/unit and/or counseling patient: Coding Level of Care Code 43992 INT INP/OBS CARE MIN Diagnoses Pneumonia J18.9 Laterality: right Lung location: lower lobe of lung Pneumonia type: due to unspecified organism Acute UTI N39.0 Cough R05.1 Cough type: acute History of pulmonary embolism Z86.711
[2024-05-17] MEDS: OXYBUTYNIN CHLORIDE XL 5 MG TABCR PO SCH (08:25)
[2024-05-17] MEDS: SIMETHICONE 80 MG CHEW PO SCH (08:25)
[2024-05-17] MEDS: PANTOprazole 40 MG TAB PO SCH (08:25)
[2024-05-17] MEDS: GABAPENTIN 100 MG CAP PO SCH (08:26)
[2024-05-17] MEDS: MULTIVITAMIN TAB PO SCH (08:26)
[2024-05-17] MEDS: ADVANCED PROBIOTIC 625 MG CAPSULE PO SCH (08:26)
[2024-05-17] MEDS: BACLOFEN 20 MG TAB PO SCH (08:27)
[2024-05-17] MEDS: LACTULOSE SYRUP 20 GM/30 ML UDC PO SCH (08:28)
[2024-05-17] MEDS: MIDODRINE HCL 2.5 MG TAB PO SCH (08:28)
[2024-05-17] MEDS: ASCORBIC ACID 500 MG TAB PO SCH (08:28)
[2024-05-17] MEDS: UMECLIDINIUM BROMIDE 62.5MCG/BLISTER 7 PUFFS/INHALER INH SCH (08:29)
[2024-05-17] MEDS: FLUTICASONE/VILANTEROL 200/25MCG 14 PUFFS/INHALER INH SCH (08:29)
[2024-05-17] MEDS: COLLAGENASE OINT 30 GM TUBE TOP SCH (08:29)
[2024-05-17] MEDS: DAKIN'S SOLN 0.25% HALF STRENGTH 473ML BTL EXT SCH (08:30)
[2024-05-17] MEDS: bisacodyL 10 MG SUPP PR SCH (08:38)
[2024-05-17] MEDS: KETOROLAC 30 MG/ML VIAL IV PRN (10:54)
[2024-05-17] MEDS: ALBUT/IPRATROP 3MG/0.5MG NEB 3 ML VIAL INH PRN (11:18)
[2024-05-17] MEDS: ACETYLCYSTEINE 20% INHAL SOLN 4ML ***DISPENSED BY RESP. INH SCH (11:18)
--- NOTE | 2024-05-17 11:18 | Electrocardiogram Report ---
Test Reason : Blood Pressure : */* mmHG Vent. Rate : 63 BPM Atrial Rate : 63 BPM P-R Int : 190 ms QRS Dur : 86 ms QT Int : 432 ms P-R-T Axes : 19 -1 18 degrees QTcB Int : 442 ms Normal sinus rhythm Normal ECG When compared with ECG of 08-May-2024 19:48, No significant change was found Confirmed by Toi Wright ([id number]) on 05/17/2024 11:18:07 AM Referred By: REFERRED SELF Confirmed By: Toi Wright
--- NOTE | 2024-05-17 12:55 | Communication Note ---
Date of Service: May 17, 2024 Admitted overnight. Evaluated patient at bedside. Reports feeling overall "achy" and "tired" Reports worsening cough EXAM with diminished breath sounds 2/2 participation #Pneumonia #Mucous plugging #atelectasis -Pulmonary consulted, reviewed recommendations -Continue pulm toilet with flutter valve, chest vest, mucomyst, hypertonic nebs -Considering +/- bronch -Sputum culture ordered -Speech preethi Wick held for possible intervention # COPD - Continue laba/lama/ics prn nebs Continue with triple therapy as you are for now. Certainly, if the patient were to have worsening of bronchospasm or refractory symptoms, additional nebulized therapies could be considered at this time. Patient would benefit from smoking cessation, obviously. rest of plan per hp
[2024-05-17] MEDS ORDERED: ACETAMINOPHEN 1,000 MG/100 ML VIAL IV PRN ×2 (15:45→15:47)
[2024-05-17] MEDS: SODIUM CHLOR 7% 4 ML NEB NEB SCH (19:24)
[2024-05-17] MEDS: MELATONIN 3 MG TAB PO SCH (22:08)
[2024-05-17] MEDS: DOCUSATE SODIUM/SENNA 50/8.6MG TAB PO SCH (22:08)
[2024-05-18 06:45] LABS: Hematocrit (blood only) 35.8 % (42.0-52.0); Hemoglobin 11.5 g/dl (14.0-18.0); Mean Corpuscular Hemoglobin 27.2 pg (25.0-34.0); Mean Corpuscular Hgb Conc 32.1 g/dL (32.0-36.0); Mean Corpuscular Volume 84.6 fL (80.0-100.0); Mean Platelet Volume 10.3 fL (9.4-12.4); Platelet Count 251 K/uL (130-400); RDW Coefficient of Variation 17.7 % (11.5-14.5); RDW Standard Deviation 54.5 fL (36.4-46.3); Red Blood Count 4.23 M/uL (4.70-6.10); White Blood Count 6.54 K/ul (4.8-10.8)
[2024-05-18 07:08] LABS: BUN Creatinine Ratio 11.9 (10-20); Calcium 8.7 mg/dl (8.6-10.3); Creatinine Clr Calc Pharmacy 244.9 ml/min; Magnesium 1.7 mg/dl (1.7-2.4)
[2024-05-18] MEDS: DOCUSATE SODIUM 100 MG CAP PO PRN (08:21)
--- NOTE | 2024-05-18 08:31 | Pulmonology Progress Note ---
Date of Service May 18, 2024 Assessment & Plan (1) Pneumonia: Laterality: right Lung location: lower lobe of lung Pneumonia type: due to unspecified organism Qualified Code(s): J18.9 - Pneumonia, unspecified organism (2) Cough: Cough type: acute Qualified Code(s): R05.1 - Acute cough (3) History of pulmonary embolism: (4) Abnormal chest CT: (5) Elevated hemidiaphragm: Plan IMPRESSION: 48-year-old male with history of quadriplegia, recurrent UTIs, and recurrent pneumonia concerning for aspiration who presents in the setting of the same. Pulmonary medicine consulted for further evaluation and recommendations. CT chest 05/16/2024 personally reviewed: Elevated right hemidiaphragm Dependent atelectasis of bilateral lower lobes There are secretions in the right main going into the right lower lobe No significant mediastinal lymphadenopathy --Abnormal chest CT Patient seems to have atelectasis but to lower lobes more on the right side He did have secretions in the right bronchus intermedius on the CAT scan of presentation CoughAssist 7% hypertonic saline Continue with antibiotics for 5 days -- Questionable COPD with significant smoking history Currently smoking approximately half a pack a day Reports of quitting exposure the patient in depth Continue with bronchodilator therapy for the time being -- History of pulmonary embolism - Anticoagulated on Eliquis. Medication on hold for now until he is more awake to discuss procedural intervention. --Elevated right hemidiaphragm Likely from underlying injury to the spine Recommend incentive spirometry Plan: Chest x-ray from today shows improvement in the aeration of the lung I would recommend CoughAssist for the patient Continue with Mucomyst and hypertonic saline nebulized Patient already has a CoughAssist at home, he does not know if it is working well I advised the patient to bring in the CoughAssist device so that our RT can look at it and make the adjustments Patient is on significant opioids for pain. I advised the patient to be mindful of not eating or drinking while he is too drowsy because of it Try to limit the opioids only for severe pain Case was discussed with primary team No need for bronchoscopy Please note the above document was generated using voice recognition software. It may contain grammatical, syntax or spelling errors.Any formal questions or concerns about the content, text or information contained within the body of this dictation should be directly addressed to the provider for clarification. Admission and Anticipated Discharge Date Admission Date: May 17, 2024 Subjective Patient seen and examined at bedside. No acute distress, no adverse events overnight He was saturating well on room air He stated he is feeling much better since coming to the hospital Denied any headache, no nausea, no vomiting No difficulty swallowing Does complain of cough and has difficulty bringing it up Has CoughAssist at home but he is not sure if it is working or not Review of Systems 2 Review of Systems: All systems reviewed & are unremarkable except as noted in Subjective Physical Exam 2 Physical Exam: Constitutional: No acute distress HEENT: EOMI, PERRLA Respiratory system: Good air entry bilaterally, no wheeze, no rhonchi, positive crackles bilaterally CVS: S1-S2 positive, no murmurs or gallops Abdomen: Soft, nontender, nondistended, positive bowel sounds x4 Extremities: +2 pulses bilaterally radialis/ dorsalis pedis, no cyanosis, +2 pitting edema bilateral lower extremity Neuro: Awake alert oriented x 3 Psych: Normal mood and affect G/U: Suprapubic catheter Skin: no rashes, warm and dry Lymphatic: no cervical or axillary lymphadenopathy Results & Data Results & Data Vital Signs (Past 12 Hours) Vital Signs Temp Pulse Pulse Resp BP BP Pulse Ox 05/18/24 08:13 36.4 C L 62 18 143/90 H 98 05/18/24 07:21 16 95 05/18/24 02:10 36.6 C 61 16 142/88 H 92 05/18/24 02:10 05/17/24 23:33 36.6 C 59 L 20 137/92 94 05/17/24 22:55 05/17/24 21:44 62 O2 Del Method 05/18/24 08:13 Oxymask 05/18/24 07:21 Room Air 05/18/24 02:10 Room Air 05/18/24 02:10 Room Air 05/17/24 23:33 Room Air 05/17/24 22:55 Room Air 05/17/24 21:44 Laboratory Results 05/18/24 06:04 05/18/24 06:04 PG Care Time/CCT Total # of Minutes Spent Total Time Spent with Patient: Total time spent is greater than 50% in coordination of care (as documented) at patient's floor/unit and/or counseling patient: Coding Level of Care Code 62568 SUB INP/OBS CARE 3/50MIN Diagnoses Pneumonia J18.9 Laterality: right Lung location: lower lobe of lung Pneumonia type: due to unspecified organism Cough R05.1 Cough type: acute History of pulmonary embolism Z86.[address] R93.89 Elevated hemidiaphragm J98.6
--- NOTE | 2024-05-18 09:17 | XRay Report ---
XR chest 1V portable HISTORY: 48 years-old Male f/u acute shortness of breath COMPARISON: Chest CT 05/16/2024 TECHNIQUE: AP view of the chest FINDINGS: Cardiac silhouette is enlarged. Persistent right hemidiaphragmatic elevation with minimal right basil ar densities. No pneumothorax, pleural effusion or pulmonary edema. Cervical spinal fusion hardware. IMPRESSION: 1. Cardiomegaly without pulmonary edema. 2. Mild right basilar predominant atelectasis redemonstrated. ACT 112: Negative or not required by law. The above report was generated using voice recognition software. It may contain grammatical, syntax o r spelling errors. Electronically signed by: Anil Friedman M.D. 05/18/2024 9:16 AM
[2024-05-18] MEDS: POTASSIUM CHLORIDE CRTAB 20 MEQ TABCR PO STA (09:35)
[2024-05-18] MEDS: POTASSIUM CHLORIDE / WTR 10 MEQ/100 ML PLCT IV SCH (09:54)
--- NOTE | 2024-05-18 12:32 | Hospitalist Progress Note ---
Date of Service May 18, 2024 Assessment & Plan (1) Pneumonia: Plan: Mr. 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 Patient was recently in the hospital and discharged on Augmentin for possible UTI and pneumonia. Patient had recurrent admissions in the recent past. Patient with aggressive behavior and outbursts towards providers and nursing/ancillary staff. Patient more agreeable today and willing to discuss care plan. UCx not suspicious for UTI, however, will continue to manage aspiration pneumonia Given patients propensity for hypotension as well as bradycardia, opioids are not indicated in his care plan and pose a greater risk. Will identify this as severe adverse reaction as patient has multiple hospitalizations for hypotension/bradycardia and narcotics will contribute to hemodynamic instability. Offered other analgesia, however, patient declined all other alternatives. #Pneumonia #Mucous plugging #Atelectasis CT with bilateral infiltrate, +atelectasis, likely mucous plugging Biofire negative Continue Zosyn at this time Patient declined speech eval--previous eval in 01/2024 without aspiration, however, this does not account for any times when patient is under influence from illicit substances; continue to encourage Pulmonary consulted, reviewed recommendations -continuing aggressive pulm toilet Patient with high risk for further mucus plugging and given physical debility/immobilty, it is felt that a home chest vest would be a suitible option to aid in prevention at home #Abnormal UTI #Neurogenic bladder s/p suprapubic hartman UA is abnormal, no c/w infectious process ABX for pneumonia above, not for complicated UTI CTM, last exchange 05/14 #Hypokalemia continue po replacement #Labile blood pressure #autonomic dysreflexia Continue midodrine 2.5 mg 3 times daily #History of asymptomatic bradycardia Patient was advised to have outpatient ZIO monitor Avoid opioids and other agents that suppress hr #Chronic sacral decubitus ulcer stage IV Chronic osteomyelitis Wound care low pressure mattress #COPD Tobacco abuse continue Home inhalers #Substance use disorder to avoid narcotics #History of PE Eliquis #History of HCV Seems s/p treatment #Mood disorder On duloxetine #Chronic pain Gabapentin and baclofen and celecoxib petra #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 Admission and Anticipated Discharge Date Admission Date: May 17, 2024 Subjective NAEO States he thinks he feels better Agrees for continued pulm toliet, abx, and electrolyte replacement Not aggressive on today's exam -Day prior very vulgar and insulting on exam--more agreeable today. Results & Data Results & Data Vital Signs (Past 12 Hours) Vital Signs Temp Pulse Resp BP Pulse Ox O2 Del Method 05/18/24 08:13 36.4 C L 62 18 143/90 H 98 Oxymask 05/18/24 07:21 16 95 Room Air 05/18/24 02:10 36.6 C 61 16 142/88 H 92 Room Air 05/18/24 02:10 Room Air Laboratory Results Short CBC 05/18/24 Range/Units 06:04 WBC 6.54 (4.8-10.8) K/ul Hgb 11.5 L (14.0-18.0) g/dl Hct 35.8 L (42.0-52.0) % Plt Count 251 (130-400) K/uL BMP 05/18/24 06:04 Sodium 143 Potassium 3.0 L Chloride 110 H Carbon Dioxide 27 BUN 5 L Creatinine 0.42 L Glucose 98 Calcium 8.7 Medications Administered Home Medications Medication Instructions Recorded Confirmed Last Taken Lactobacillus rhamnosus GG 10 1 cap PO DAILY 04/22/24 05/17/24 Unknown billion cell capsule (Culturelle) apixaban 5 mg tablet (Eliquis) 5 mg PO BID 04/22/24 05/17/24 Unknown ascorbic acid (vitamin C) 500 mg 500 mg PO DAILY 04/22/24 05/17/24 Unknown capsule baclofen 10 mg tablet 20 mg PO TID Spasms 04/22/24 05/17/24 Unknown bisacodyl 10 mg rectal suppository 10 mg [place] BID 04/22/24 05/17/24 Unknown collagenase clostridium histo. 250 1 applic topical DAILY 04/22/24 05/17/24 Unknown unit/gram topical ointment docusate sodium 100 mg capsule 100 mg PO BID PRN Constipation 04/22/24 05/17/24 Unknown gabapentin 100 mg capsule 100 mg PO TID 04/22/24 05/17/24 Unknown hydroxyzine HCl 25 mg tablet 25 mg PO DAILY PRN Anxiety 04/22/24 05/17/24 Unknown lidocaine 5 % topical patch 1 patch topical DAILY PRN Pain 04/22/24 05/17/24 Unknown melatonin 3 mg tablet 3 mg PO HS 04/22/24 05/17/24 Unknown midodrine 2.5 mg tablet 2.5 mg PO TID 04/22/24 05/17/24 Unknown naloxone 4 mg/actuation nasal spray 4 mg intranasal UD PRN opiod OD 04/22/24 05/17/24 Unknown oxybutynin chloride 10 mg 10 mg PO QAM 04/22/24 05/17/24 Unknown tablet,extended release 24 hr pediatric multivitamin 1 tab PO DAILY 04/22/24 05/17/24 Unknown simethicone 80 mg chewable tablet 80 mg PO TID 04/22/24 05/17/24 Unknown sodium hypochlorite 0.25 % 1 irrig topical BID 04/22/24 05/17/24 Unknown solution (Dakin's Solution) tiotropium bromide 2.5 2 puff inhalation DAILY 04/22/24 05/17/24 Unknown mcg/actuation mist for inhalation (Spiriva Respimat) sennosides 8.6 mg-docusate sodium 2 tab-cap (2 x 8.6-50 mg) PO HS 04/24/24 05/17/24 Unknown 50 mg tablet (Senokot-S) #60 tabs sodium phosphates 19 gram-7 132 ml [place] DAILY PRN constipation 04/24/24 05/17/24 Unknown gram/118 mL enema (Enema 30 days #133 mL Disposable) amoxicillin 875 mg-potassium 1 tab PO BID #10 tabs 05/11/24 05/17/24 Unknown clavulanate 125 mg tablet pantoprazole 40 mg tablet,delayed 40 mg PO QAM #30 tabs 05/11/24 05/17/24 Unknown release phenazopyridine 200 mg tablet 200 mg PO TID PRN Dysuria #15 tabs 05/11/24 05/17/24 Unknown (Pyridium) budesonide-formoterol HFA 160 2 puff inhalation AMHS 05/17/24 05/17/24 Unknown mcg-4.5 mcg/actuation aerosol inhaler lactulose 10 gram/15 mL oral 30 ml PO TID 05/17/24 05/17/24 Unknown solution Active Medications Generic Name Dose Route Start Last Admin Trade Name Freq PRN Reason Stop Dose Admin Acetylcysteine 5 ml 05/17/24 11:00 05/18/24 07:21 Acetylcysteine 20% Inhal Soln 4ml Dispensed By Resp. INH 06/16/24 10:59 5 ml Q12R PETRA Administration Albuterol 3 ml 05/17/24 10:51 05/18/24 07:21 Albut/Ipratrop 3mg/0.5mg Neb 3 Ml Vial INH 06/16/24 12:59 3 ml Q6R PRN Administration Wheezing Apixaban 5 mg 05/17/24 09:00 05/17/24 08:15 Apixaban 5 Mg Tablet PO 06/16/24 08:59 Not Given BID PETRA Ascorbic Acid 500 mg 05/17/24 09:00 05/18/24 08:23 Ascorbic Acid 500 Mg Tab PO 06/16/24 08:59 500 mg DAILY PETRA Administration Baclofen 20 mg 05/17/24 09:00 05/18/24 08:24 Baclofen 20 Mg Tab PO 06/16/24 08:59 20 mg TID PETRA Administration Bisacodyl 10 mg 05/17/24 09:00 05/18/24 08:25 Bisacodyl 10 Mg Supp W[place] 06/16/24 08:59 Not Given BID PETRA Collagenase 1 appln 05/17/24 09:00 05/17/24 08:29 Collagenase Oint 30 Gm Tube TOP 06/16/24 08:59 1 appln DAILY PETRA Administration Docusate Sodium 100 mg 05/17/24 04:01 05/18/24 08:21 Docusate Sodium 100 Mg Cap PO 06/16/24 04:00 100 mg BID PRN Administration Constipation Fluticasone/Vilanterol 1 puffs 05/17/24 09:00 05/18/24 08:26 Fluticasone/Vilanterol 200/25mcg 14 Puffs/Inhaler INH 06/16/24 08:59 1 puff s DAILY PETRA Administration Protocol Gabapentin 100 mg 05/17/24 09:00 05/18/24 08:22 Gabapentin 100 Mg Cap PO 06/16/24 08:59 100 mg TID PETRA Administration Piperacillin Sod/Tazobactam Sod 4.5 gm in 100 mls @ 25 mls/hr 05/17/24 06:00 05/18/24 10:00 Zosyn IV 05/24/24 05:59 Infused Q8H PETRA Infusion Protocol Potassium Chloride 10 meq in 100 mls @ 100 mls/hr 05/18/24 08:30 05/18/24 12:17 K Pedro / Wtr IV 05/18/24 12:29 Infused Q1H PETRA Infusion Ketorolac Tromethamine 30 mg 05/17/24 10:38 05/18/24 08:20 Ketorolac 30 Mg/Ml Vial IV 05/22/24 10:37 30 mg Q6H PRN Administration Pain Lactobacillus Acidophilus 625 mg 05/17/24 09:00 05/18/24 08:25 Advanced Probiotic 625 Mg Capsule PO 06/16/24 08:59 625 mg DAILY PETRA Administration Lactulose 20 gm 05/17/24 09:00 05/18/24 08:24 Lactulose Syrup 20 Gm/30 Ml Udc PO 06/16/24 08:59 Not Given TID PETRA Melatonin 3 mg 05/17/24 21:00 05/17/24 22:08 Melatonin 3 Mg Tab PO 06/16/24 20:59 3 mg HS PETRA Administration Midodrine 2.5 mg 05/17/24 07:00 05/18/24 11:15 Midodrine Hcl 2.5 Mg Tab PO 06/16/24 06:59 2.5 mg TID@0700,1200,1700 PETRA Administration Miscellaneous 1 each 05/17/24 21:00 05/17/24 22:12 Remove Lidoderm Patch N/A 06/16/24 20:59 Not Given DAILY@2100 [facility] Multivitamins 1 tab 05/17/24 09:00 05/18/24 08:22 Multivitamin Tab PO 06/16/24 08:59 1 tab DAILY PETRA Administration Oxybutynin Chloride 10 mg 05/17/24 09:00 05/18/24 08:23 Oxybutynin Chloride Xl 5 Mg Tabcr PO 06/16/24 08:59 10 mg QAM PETRA Administration Pantoprazole Sodium 40 mg 05/17/24 09:00 05/18/24 08:22 Pantoprazole 40 Mg Tab PO 06/16/24 08:59 40 mg QAM PETRA Administration Senna/Docusate Sodium 2 tab 05/17/24 21:00 05/17/24 22:08 Docusate Sodium/Senna 50/8.6mg Tab PO 06/16/24 20:59 2 tab HS PETRA Administration Simethicone 80 mg 05/17/24 09:00 05/18/24 08:20 Simethicone 80 Mg Chew PO 06/16/24 08:59 80 mg TID PETRA Administration Sodium Chloride 4 ml 05/17/24 19:00 05/18/24 07:45 Sodium Chlor 7% 4 Ml Neb NEB 06/16/24 18:59 4 ml BIDR PETRA Administration Sodium Hypochlorite 1 appln 05/17/24 09:00 05/18/24 12:15 Dakin's Soln 0.25% Half Strength 473ml Btl EXT 06/16/24 08:59 Not Given BID PETRA Umeclidinium [place] 1 puffs 05/17/24 09:00 05/18/24 08:24 Umeclidinium [place] 62.5mcg/Blister 7 Puffs/Inhaler INH 06/16/24 08:59 1 puffs DAILY PETRA Administration (1) Pneumonia Laterality: right Lung location: lower lobe of lung Pneumonia type: due to unspecified organism Qualified Code(s): J18.9 - Pneumonia, unspecified organism
[2024-05-19 07:21] LABS: Hematocrit (blood only) 35.9 % (42.0-52.0); Hemoglobin 11.8 g/dl (14.0-18.0); Mean Corpuscular Hemoglobin 27.6 pg (25.0-34.0); Mean Corpuscular Hgb Conc 32.9 g/dL (32.0-36.0); Mean Corpuscular Volume 83.9 fL (80.0-100.0); Mean Platelet Volume 9.9 fL (9.4-12.4); Platelet Count 226 K/uL (130-400); RDW Coefficient of Variation 17.6 % (11.5-14.5); RDW Standard Deviation 54.2 fL (36.4-46.3); Red Blood Count 4.28 M/uL (4.70-6.10); White Blood Count 6.08 K/ul (4.8-10.8)
--- NOTE | 2024-05-19 07:36 | XRay Report ---
XR chest 1V portable HISTORY: 48 years-old Male f/u acute shortness of breath COMPARISON: 05/18/2024 TECHNIQUE: AP view of the chest FINDINGS: Cardiac silhouette is enlarged. Pulmonary vascular congestion. No pneumothorax or pleural effusion. M inimal bibasilar atelectasis. Cholecystectomy. Cervical thoracic spinal fusion hardware. IMPRESSION: Cardiomegaly with pulmonary vascular congestion. ACT 112: Negative or not required by law. The above report was generated using voice recognition software. It may contain grammatical, syntax o r spelling errors. Electronically signed by: Anil Friedman M.D. 05/19/2024 7:33 AM
[2024-05-19 07:50] LABS: BUN Creatinine Ratio 10.6 (10-20); Creatinine Clr Calc Pharmacy 218.8 ml/min; Magnesium 1.8 mg/dl (1.7-2.4); Phosphorus 2.8 mg/dl (2.5-4.9); Potassium 3.4 mmol/L (3.5-5.1)
[2024-05-19] MEDS ORDERED: AMOXICILLIN/CLAVULANATE 875 MG TAB PO SCH (08:00)
[2024-05-19 08:03] VITALS: PULSE 54; RESP 16; TEMP 97.9; O2SAT 99
--- NOTE | 2024-05-19 08:07 | Pulmonology Progress Note ---
Date of Service May 19, 2024 Assessment & Plan (1) Pneumonia: Laterality: right Lung location: lower lobe of lung Pneumonia type: due to unspecified organism Qualified Code(s): J18.9 - Pneumonia, unspecified organism (2) Cough: Cough type: acute Qualified Code(s): R05.1 - Acute cough (3) History of pulmonary embolism: (4) Abnormal chest CT: (5) Elevated hemidiaphragm: Plan IMPRESSION: 48-year-old male with history of quadriplegia, recurrent UTIs, and recurrent pneumonia concerning for aspiration who presents in the setting of the same. Pulmonary medicine consulted for further evaluation and recommendations. CT chest 05/16/2024 personally reviewed: Elevated right hemidiaphragm Dependent atelectasis of bilateral lower lobes There are secretions in the right main going into the right lower lobe No significant mediastinal lymphadenopathy --Abnormal chest CT Patient seems to have atelectasis but to lower lobes more on the right side He did have secretions in the right bronchus intermedius on the CAT scan of presentation CoughAssist 7% hypertonic saline Continue with antibiotics for 5 days -- Questionable COPD with significant smoking history Currently smoking approximately half a pack a day Reports of quitting exposure the patient in depth Continue with bronchodilator therapy for the time being -- History of pulmonary embolism - Anticoagulated on Eliquis. Medication on hold for now until he is more awake to discuss procedural intervention. --Elevated right hemidiaphragm Likely from underlying injury to the spine Recommend incentive spirometry Plan: Continue with Mucomyst and hypertonic saline nebulized Patient did get his CoughAssist from home, I will have our RT look at the machine to see if it is working and if any changes needed when it comes to the setting Patient is on significant opioids for pain. I advised the patient to be mindful of not eating or drinking while he is too drowsy because of it Try to limit the opioids only for severe pain Case was discussed with RT No need for bronchoscopy No further recommendation from pulmonary perspective, will sign off Please call directly with any questions Please note the above document was generated using voice recognition software. It may contain grammatical, syntax or spelling errors.Any formal questions or concerns about the content, text or information contained within the body of this dictation should be directly addressed to the provider for clarification. Admission and Anticipated Discharge Date Admission Date: May 17, 2024 Subjective Patient seen and examined at bedside. No acute distress, no adverse events overnight Complain of burning sensation in the chest and belly more into the belly The belly was soft. No nausea vomiting Shortness of breath is improved Occasional cough with clear phlegm. Denies any headache Review of Systems 2 Review of Systems: All systems reviewed & are unremarkable except as noted in Subjective Physical Exam 2 Physical Exam: Constitutional: No acute distress HEENT: EOMI, PERRLA Respiratory system: Good air entry bilaterally, no wheeze, no rhonchi, positive crackles bilaterally CVS: S1-S2 positive, no murmurs or gallops Abdomen: Soft, nontender, nondistended, positive bowel sounds x4 Extremities: +2 pulses bilaterally radialis/ dorsalis pedis, no cyanosis, +2 pitting edema bilateral lower extremity Neuro: Awake alert oriented x 3 Psych: Normal mood and affect G/U: Suprapubic catheter Skin: no rashes, warm and dry Lymphatic: no cervical or axillary lymphadenopathy Results & Data Results & Data Vital Signs (Past 12 Hours) Vital Signs Temp Pulse Resp BP Pulse Ox O2 Del Method 05/19/24 08:00 36.6 C 54 L 16 156/98 H 99 Room Air 05/19/24 07:56 52 L 18 96 Room Air 05/18/24 21:25 36.7 C 67 18 124/80 95 Room Air 05/18/24 20:37 54 L 18 97 Room Air Laboratory Results 05/19/24 07:03 05/19/24 07:03 PG Care Time/CCT Total # of Minutes Spent Total Time Spent with Patient: Total time spent is greater than 50% in coordination of care (as documented) at patient's floor/unit and/or counseling patient: Coding Level of Care Code 50263 SUB INP/OBS CARE 2/35MIN Diagnoses Pneumonia J18.9 Laterality: right Lung location: lower lobe of lung Pneumonia type: due to unspecified organism Cough R05.1 Cough type: acute History of pulmonary embolism Z86.[address] R93.89 Elevated hemidiaphragm J98.6
[2024-05-19] MEDS: levoFLOXacin 750 MG TAB PO ONE (09:18)
[2024-05-19] MEDS: CALCIUM CARBONATE 500 MG CHEWABLE TAB PO ONE (09:19)
[2024-05-19] MEDS: FAMOTIDINE 20MG IV PUSH 20 MG/5 ML SYR IV ONE (09:36)
[2024-05-19] MEDS: ALUMINUM/MAGNESIUM SUSP 30 ML UDC PO STA (12:34)
--- NOTE | 2024-05-19 13:50 | Discharge Summary ---
Discharge Summary Date of Service May 19, 2024 Principal Dx & Hospital Course #1 = Principal Diagnosis (1) Pneumonia: Mr. 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 Patient was recently in the hospital and discharged on Augmentin for possible UTI and pneumonia. Patient had recurrent admissions in the recent past. Patient with aggressive behavior and outbursts towards providers and nursing/ancillary staff. Patient often declining routine care. UCx not suspicious for UTI, however, will continue to manage pneumonia Given patients propensity for hypotension as well as bradycardia, opioids are not indicated in his care plan and pose a greater risk. Will identify this as severe adverse reaction as patient has multiple hospitalizations for hypotension/bradycardia and narcotics will contribute to hemodynamic instability. Offered other analgesia, however, patient declined all other alternatives. Patient continued to be verbally aggressive and irate with providers and staff. Discussed this is not appropriate behavior multiple times. Stated that there is no further acute inpatient needs at this time. Coughassist evaluated by RT. Patient would benefit from home chest vest. Discussed the absolute need that patient must follow up with primary care providers to get his medications. Discussed that patient would benefit from mucolytics. Patient is a high risk for readmission given noncompliance and lack of follow up with PCP despite ongoing education and encouragement from multiple readmissions. #Pneumonia #Mucous plugging #Atelectasis CT with bilateral infiltrate, +atelectasis, likely mucous plugging Biofire negative Transition to levofloxacin for 3 more days upon d/c Patient declined speech eval--previous eval in 01/2024 without aspiration, however, this does not account for any times when patient is under influence from illicit substances; continue to encourage Pulmonary consulted, reviewed recommendations -continuing aggressive pulm toilet Patient with high risk for further mucus plugging and given physical debility/immobilty, it is felt that a home chest vest would be a suitible option to aid in prevention at home patient is not on prescribed chronic opioids, patient PDMP reviewed; last script for 3 days on 02/01/2024; patient is not on substance treatment plan, patient does utilize illicitly, conversations about risk factors and ongoing medical conditions have been had #Abnormal UTI #Neurogenic bladder s/p suprapubic hartman UA is abnormal, no c/w infectious process ABX for pneumonia above, not for complicated UTI CTM, last exchange 05/14 #Hypokalemia continue po replacement #Labile blood pressure #autonomic dysreflexia Continue midodrine 2.5 mg 3 times daily #History of asymptomatic bradycardia Patient was advised to have outpatient ZIO monitor Avoid opioids and other agents that suppress hr #Chronic sacral decubitus ulcer stage IV Chronic osteomyelitis Wound care low pressure mattress #COPD Tobacco abuse continue Home inhalers #Substance use disorder to avoid narcotics #History of PE Eliquis #History of HCV Seems s/p treatment #Mood disorder On duloxetine #Chronic pain Gabapentin and baclofen and celecoxib petra #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, some movement upper extremities bedbound 24hr care at home Notes For Next Care Provider Patient would benefit from chest vest to help with pulm clearance Medication Changes From Visit Mucinex 600mg bid Levofloxacin 750mg x 3 days Admission HPI Per Admitting Provider 48-year-old male with PMH COPD, 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 Patient was recently in the hospital and discharged on Augmentin for possible UTI and pneumonia. Patient had recurrent admissions in the recent past. Patient called EMS yesterday for burning sensation and as blood pressure was low they took him to [facility] and [facility] planned to send him to [facility] but he signed out AMA and went home. Called 911 again and this time they took him to [facility]. Hartman was changed which seems to have clogged and was sent home with prescriptions of cefdinir and Cipro. Seems took 1 dose around lunchtime. But still was having diffuse burning sensation and called EMS and came here. Patient concerned about worsening infection. Has cough and bringing up phlegm. Denies fevers. Denies chest pain. Denies shortness of breath. States he is eating okay. Has 24-hour nursing care at home. Denies any headache. No nausea. No abdominal pain. Bowels are moving okay. Hemodynamics are okay. Past medical history. As mentioned above Past surgical history. Bladder aspiration by suprapubic cath. Cystoscopy. Drainage of the right lower leg abscess. Incision of right first metatarsal. Neck and lumbar fusion. Bilateral arm surgery. Right ankle surgery. Laparoscopic appendectomy. Cholecystectomy. Social history. Smokes 1 pack a day for 31 years. Vaping some days. Alcohol rarely currently. Amphetamines, marijuana and cocaine use. Social history. Mother had lung cancer. Father had heart attack. Admission Exam Per Admitting Provider General- Not in acute distress Head- atraumatic Eyes- PERRL. ENT- oropharynx dry Lungs- clear to auscultation no wheezing or crackles Heart- regular rate ,bradycardia ; no murmur, no gallop. Abdomen- normal bowel sounds, soft, no discomfort, no distension. Supra pubic cath site no erythema or drainage seen Extremities- no pretibial edema, no erythema seen Neuro- alert, oriented PERRL, no facial palsy; no dysarthria; moves upper extremities Discharge Exam Constitutional agitated, verbally aggressive Respiratory unable to auscultate, no resp distress sating well on room air Musculoskeletal moving upper extremities at baseline Updated Medication List Medication Instructions Recorded Confirmed Type Lactobacillus rhamnosus GG 10 1 cap PO DAILY 04/22/24 05/17/24 History billion cell capsule (Culturelle) apixaban 5 mg tablet (Eliquis) 5 mg PO BID 04/22/24 05/17/24 History ascorbic acid (vitamin C) 500 mg 500 mg PO DAILY 04/22/24 05/17/24 History capsule baclofen 10 mg tablet 20 mg PO TID Spasms 04/22/24 05/17/24 History bisacodyl 10 mg rectal suppository 10 mg AR BID 04/22/24 05/17/24 History collagenase clostridium histo. 250 1 applic topical DAILY 04/22/24 05/17/24 History unit/gram topical ointment docusate sodium 100 mg capsule 100 mg PO BID PRN Constipation 04/22/24 05/17/24 History gabapentin 100 mg capsule 100 mg PO TID 04/22/24 05/17/24 History hydroxyzine HCl 25 mg tablet 25 mg PO DAILY PRN Anxiety 04/22/24 05/17/24 History lidocaine 5 % topical patch 1 patch topical DAILY PRN Pain 04/22/24 05/17/24 History melatonin 3 mg tablet 3 mg PO HS 04/22/24 05/17/24 History midodrine 2.5 mg tablet 2.5 mg PO TID 04/22/24 05/17/24 History naloxone 4 mg/actuation nasal spray 4 mg intranasal UD PRN opiod OD 04/22/24 05/17/24 History oxybutynin chloride 10 mg 10 mg PO QAM 04/22/24 05/17/24 History tablet,extended release 24 hr pediatric multivitamin 1 tab PO DAILY 04/22/24 05/17/24 History simethicone 80 mg chewable tablet 80 mg PO TID 04/22/24 05/17/24 History sodium hypochlorite 0.25 % 1 irrig topical BID 04/22/24 05/17/24 History solution (Dakin's Solution) tiotropium bromide 2.5 2 puff inhalation DAILY 04/22/24 05/17/24 History mcg/actuation mist for inhalation (Spiriva Respimat) sennosides 8.6 mg-docusate sodium 2 tab-cap (2 x 8.6-50 mg) PO HS 04/24/24 05/17/24 Rx 50 mg tablet (Senokot-S) #60 tabs sodium phosphates 19 gram-7 132 ml AR DAILY PRN constipation 04/24/24 05/17/24 Rx gram/118 mL enema (Enema 30 days #133 mL Disposable) pantoprazole 40 mg tablet,delayed 40 mg PO QAM #30 tabs 05/11/24 05/17/24 Rx release phenazopyridine 200 mg tablet 200 mg PO TID PRN Dysuria #15 tabs 05/11/24 05/17/24 Rx (Pyridium) budesonide-formoterol HFA 160 2 puff inhalation [facility] 05/17/24 05/17/24 History mcg-4.5 mcg/actuation aerosol inhaler lactulose 10 gram/15 mL oral 30 ml PO TID 05/17/24 05/17/24 History solution guaifenesin 600 mg tablet, 600 mg PO BID #30 tabs 05/19/24 Rx extended release 12 hr (Mucinex) levofloxacin 750 mg tablet 750 mg PO DAILY 3 days #3 tabs 05/19/24 Rx Hospital Stay Data Consultations 05/17/24 00:14 ED Decision to Admit Stat 05/17/24 08:00 Consult Pulmonology Routine Diagnostic Imagining Performed 05/16/24 19:54 CT abd pelvis wo con Stat CT chest diagnostic wo con Stat Pending Results Patient Have Any Pending Studies at Discharge: No Discharge Instructions Given to Patient (Per Discharging Provider) You were admitted for pneumonia and mucus plugging. You were treated with antibiotic and mucolytics. Please continue the following: -Levofloxacin 750mg in the morning for 3 more days (please take first dose tomorrow morning) -Mucinex 600mg two times a day to keep mucus thin Total Time Total Time Spent Total Time Spent (In Minutes): 45
[2024-05-19 14:05] VITALS: BP 137/92
== END 2024-05-19 14:40 | disposition home or self-care (01) | DRG 177 ==
LOC: ED 19:16 → EDINP 05-17 02:41 → 2N 05-17 03:56 → 2W 05-17 16:50 → 3W 05-18 02:05

== ENCOUNTER 2024-08-26 01:06 | Inpatient (IN) ==
[2024-08-26] MEDS ORDERED: VANCOMYCIN CONSULT ACTIVE PRN (01:17)
[2024-08-26] MEDS: SODIUM CHLORIDE 0.9% 1,000 ML IV ONE (01:29)
[2024-08-26] MEDS: SODIUM CHLORIDE 0.9% 1,000 ML IV SCH ×2 (01:30→08:30)
[2024-08-26] MEDS: PIPERACILLIN/TAZOBACTAM 4.5 GM/100 ML BAG IV ONE (01:31)
[2024-08-26 01:42] LABS: Basophils # (auto) 0.07 K/uL (0.00-0.20); Basophils % (auto) 0.9 %; Eosinophils # (auto) 0.26 K/uL (0.00-0.50); Eosinophils % (auto) 3.4 %; Hematocrit (blood only) 31.4 % (42.0-52.0); Hemoglobin 9.3 g/dl (14.0-18.0); Immature Granulocytes # (auto) 0.01 K/uL (0.01-0.20); Immature Granulocytes % (auto) 0.1 %; Lymphocytes # (auto) 1.87 K/uL (1.20-3.40); Lymphocytes % (auto) 24.1 %; Mean Corpuscular Hemoglobin 23.1 pg (25.0-34.0); Mean Corpuscular Hgb Conc 29.6 g/dL (32.0-36.0); Mean Corpuscular Volume 77.9 fL (80.0-100.0); Mean Platelet Volume 9.4 fL (9.4-12.4); Monocytes # (auto) 0.65 K/uL (0.11-0.59); Monocytes % (auto) 8.4 %; Neutrophils # (auto) 4.89 K/uL (1.40-6.50); Neutrophils % (auto) 63.1 %; Platelet Count 372 K/uL (130-400); RDW Coefficient of Variation 15.9 % (11.5-14.5); RDW Standard Deviation 45.4 fL (36.4-46.3); Red Blood Count 4.03 M/uL (4.70-6.10); White Blood Count 7.75 K/ul (4.8-10.8)
[2024-08-26 01:44] LABS: iSTAT Creatinine 0.8 mg/dl (0.6-1.3); iSTAT Hemoglobin 9.5 g/dl (14.0-18.0); iSTAT Ionized Calcium 1.19 mmol/l (1.12-1.32); iSTAT Potassium 3.9 mmol/L (3.3-5.0)
[2024-08-26] MEDS: OPTIRAY 320 125ml IV ONE (01:50)
[2024-08-26 01:58] LABS: Albumin Level 3.2 gm/dl (3.4-5.0); BUN Creatinine Ratio 10.6 (10-20); Bilirubin Direct 0.1 mg/dl (0-0.2); Bilirubin,Total 0.3 mg/dl (0.2-1.0); Calcium 8.5 mg/dl (8.6-10.3); Creatinine Clr Calc Pharmacy 156.5 ml/min; Magnesium 1.9 mg/dl (1.7-2.4); Potassium 3.9 mmol/L (3.5-5.1); Total Protein 6.1 gm/dl (6.0-8.3)
[2024-08-26 02:04] LABS: Troponin I High Sensitivity 4.5 pg/ml (0-20)
[2024-08-26 02:06] LABS: INR 0.9 (0.9-1.1); Prothrombin Time 10.2 Seconds (9.0-12.0)
[2024-08-26] MEDS: VANCOMYCIN HCL 2,000 MG in SODIUM CHLORIDE 0.9% 500 ML IV ONE (02:24)
--- NOTE | 2024-08-26 02:25 | Emergency Department Note ---
History of Present Illness General Chief complaint: Urinary Symptoms Stated complaint: UTI, Fever Time Seen by Provider: 08/26/24 01:17 History of Present Illness Maximum Pain Intensity: 9 This 48-year-old quadriplegic Home Medications Medication Instructions Recorded Confirmed Type albuterol sulfate 2.5 mg/3 mL 2.5 mg inhalation Q4H PRN 08/26/24 08/26/24 History (0.083 %) solution for nebulization Shortness Of Breath Or Wheezing apixaban 5 mg tablet (Eliquis) 5 mg PO BID 08/26/24 08/26/24 History ascorbic acid (vitamin C) 500 mg 500 mg PO DAILY 08/26/24 08/26/24 History tablet (Vitamin C) baclofen 10 mg tablet 20 mg PO TID PRN muscle spasms 08/26/24 08/26/24 History bisacodyl 10 mg rectal suppository [address] BID 08/26/24 08/26/24 History budesonide-formoterol HFA 160 2 puff inhalation BID 08/26/24 08/26/24 History mcg-4.5 mcg/actuation aerosol inhaler docusate sodium 100 mg capsule 100 mg PO BID PRN Constipation 08/26/24 08/26/24 History ferrous sulfate 325 mg (65 mg 325 mg PO DAILY 08/26/24 08/26/24 History iron) tablet,delayed release hydroxyzine HCl 25 mg tablet 25 mg PO DAILY PRN Anxiety 08/26/24 08/26/24 History lactulose 10 gram/15 mL oral 20 g PO TID PRN Constipation 08/26/24 08/26/24 History solution lidocaine 5 % topical patch 1 patch topical DAILY PRN Pain 08/26/24 08/26/24 History midodrine 10 mg tablet 10 mg PO TID PRN Hypotension 08/26/24 08/26/24 History multivitamin 1 tab PO DAILY 08/26/24 08/26/24 History nortriptyline 25 mg capsule 25 mg PO HS 08/26/24 08/26/24 History oxybutynin chloride 10 mg 10 mg PO DAILY 08/26/24 08/26/24 History tablet,extended release 24 hr pantoprazole 40 mg tablet,delayed 40 mg PO DAILY 08/26/24 08/26/24 History release sennosides 8.6 mg-docusate sodium 2 tab PO HS 08/26/24 08/26/24 History 50 mg tablet (Senexon-S) tiotropium bromide 2.5 2 puff inhalation DAILY 08/26/24 08/26/24 History mcg/actuation mist for inhalation (Spiriva Respimat) Allergies Allergy/AdvReac Type Severity Reaction Status Date / Time Opioids - Morphine Analogues AdvReac severe Verified 05/17/24 15:46 bradycardia Past Med/Surg History Problem List (Updated 08/26/24 @ 06:00 by Kathleen Anderson PA-C) Acute UTI (Acute) Sepsis (Acute) Constipation (Acute) Gastritis (Acute) Elevated hemidiaphragm Abnormal chest CT Pneumonia (Acute) Cough (Acute) Left sided abdominal pain (Acute) Quadriplegia (Acute) Hypotension (Acute) Abdominal pain Autonomic dysreflexia Constipation Hydronephrosis (Acute) Acute urinary retention (Acute) Leukocytosis (Acute) Complication, blocked suprapubic catheter Hypokalemia (Acute) Hypomagnesemia (Acute) Anemia (Acute) Quadriplegia (Acute) Sacral decubitus ulcer (Acute) Acute UTI (Acute) Hypotension (Acute) Encephalopathy Pneumonia (Acute) Complicated urinary tract infection (Acute Unknown) Change or removal of nonsurgical wound dressing Acute hypoxemic respiratory failure (Acute) Chest pain (Acute) Severe sepsis (Acute) MRSA carrier Pneumonia (Acute) Hypoxic respiratory failure (Acute) 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 Leg wound, right Leg wound, left History of pulmonary embolism Hypoxia (Acute) RSV (respiratory syncytial virus infection) Chronic pain (Acute) Suprapubic catheter (Acute) Complicated UTI (urinary tract infection) (Acute) Sacral decubitus ulcer, stage IV (Acute) Chronic osteomyelitis of sacrum Medical History Abdominal pain Aspiration pneumonitis Pneumonia Paraplegia Surgical History No pertinent past surgical history Social History Smoking Status: Former smoker Tobacco Type: Cigarettes Cigarettes Per Day: 50-60; Second Hand Exposure: Yes; Do You Dip or Chew Tobacco: Yes; Hx Alcohol Use: No Hx Substance Use: No Preferred Language: Azeri Communication Ability: Effective Communication Ability Comment: difficulty writing [employer] Required: No Beliefs That Will Affect Care: None Current Living Situation: Alone 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 28/02 Feels Safe at Home: Yes Assistive Devices: Hospital Bed, Mechanical Lift and Scooter/Electric Scooter Review of Systems A total of 10 systems reviewed and were otherwise negative Physical Exam Vital Signs Vital Signs - 24 hr 08/26/24 01:08 08/26/24 01:13 08/26/24 01:15 Temperature 36.8 C Temperature Source Oral Pulse Rate 86 83 Respiratory Rate 18 Blood Pressure 80/45 L Blood Pressure [Left Arm] 119/82 Blood Pressure Mean 56 Blood Pressure Mean [Left Arm] 94 Pulse Oximetry 97 Oxygen Delivery Method Room Air Sepsis Recent Fever Within 48 Hours Yes Sepsis New/Unexplained Change in Mental Status N/A Sepsis Action Taken by Nursing No Action Required 08/26/24 01:30 08/26/24 01:45 08/26/24 02:00 Temperature Temperature Source Pulse Rate 70 82 82 Respiratory Rate 20 22 24 Blood Pressure 100/63 114/74 119/82 Blood Pressure [Left Arm] Blood Pressure Mean 77 87 94 Blood Pressure Mean [Left Arm] Pulse Oximetry 97 94 95 Oxygen Delivery Method Sepsis Recent Fever Within 48 Hours Sepsis New/Unexplained Change in Mental Status Sepsis Action Taken by Nursing 08/26/24 02:15 08/26/24 02:30 08/26/24 02:45 Temperature Temperature Source Pulse Rate 87 78 76 Respiratory Rate 18 20 18 Blood Pressure 94/59 L 97/61 L 89/68 L Blood Pressure [Left Arm] Blood Pressure Mean 70 67 74 Blood Pressure Mean [Left Arm] Pulse Oximetry 93 93 94 Oxygen Delivery Method Sepsis Recent Fever Within 48 Hours Sepsis New/Unexplained Change in Mental Status Sepsis Action Taken by Nursing 08/26/24 03:00 08/26/24 03:15 08/26/24 03:30 Temperature Temperature Source Pulse Rate 68 70 64 Respiratory Rate 16 22 18 Blood Pressure 106/79 115/85 112/67 Blood Pressure [Left Arm] Blood Pressure Mean 87 94 82 Blood Pressure Mean [Left Arm] Pulse Oximetry 92 92 96 Oxygen Delivery Method Sepsis Recent Fever Within 48 Hours Sepsis New/Unexplained Change in Mental Status Sepsis Action Taken by Nursing 08/26/24 03:45 08/26/24 04:00 08/26/24 04:10 Temperature Temperature Source Pulse Rate 67 66 67 Respiratory Rate 16 18 18 Blood Pressure 104/75 104/75 114/82 Blood Pressure [Left Arm] Blood Pressure Mean 84 84 96 Blood Pressure Mean [Left Arm] Pulse Oximetry 94 96 95 Oxygen Delivery Method Sepsis Recent Fever Within 48 Hours Sepsis New/Unexplained Change in Mental Status Sepsis Action Taken by Nursing 08/26/24 05:23 08/26/24 05:30 Temperature Temperature Source Pulse Rate 68 68 Respiratory Rate 18 Blood Pressure 94/59 L Blood Pressure [Left Arm] Blood Pressure Mean 70 Blood Pressure Mean [Left Arm] Pulse Oximetry 94 Oxygen Delivery Method Sepsis Recent Fever Within 48 Hours Sepsis New/Unexplained Change in Mental Status Sepsis Action Taken by Nursing xrta chart Course Administered Medications Discontinued Medications Piperacillin Sod/Tazobactam Sod (Zosyn) 4.5 gm in 100 mls @ 200 mls/hr IV NOW ONE; Protocol Stop: 08/26/24 01:46 Last Infusion: 08/26/24 02:03 Dose: Infused Documented By: [facility] Admin: 08/26/24 01:31 Dose: 200 mls/hr Documented By: DEANGELO Vancomycin HCl 2,000 mg/ (Sodium Chloride) 540 mls @ 200 mls/hr IV NOW ONE Stop: 08/26/24 03:58 Last Infusion: 08/26/24 05:07 Dose: Infused Documented By: [facility] Admin: 08/26/24 02:24 Dose: 200 mls/hr Documented By: DEANGELO Sodium Chloride (Nss) 1,000 mls @ 999 mls/hr IV .Q1H1M ROSALES Stop: 08/26/24 03:30 Last Infusion: 08/26/24 03:08 Dose: Infused Documented By: [facility] Admin: 08/26/24 02:06 Dose: 999 mls/hr Documented By: Infusion: 08/26/24 02:06 Dose: Infused Documented By: [facility] Admin: 08/26/24 01:30 Dose: 999 mls/hr Documented By: [facility] Sodium Chloride (Nss) 1,000 mls @ 999 mls/hr IV .Q1H1M ONE Stop: 08/26/24 02:17 Last Infusion: 08/26/24 02:45 Dose: Infused Documented By: [facility] Admin: 08/26/24 01:29 Dose: 999 mls/hr Documented By: DEANGELO Acetaminophen (Ofirmev) 1,000 mg in 100 mls @ 400 mls/hr IV NOW STA Stop: 08/26/24 02:37 Last Infusion: 08/26/24 03:05 Dose: Infused Documented By: Admin: 08/26/24 02:48 Dose: 400 mls/hr Documented By: DEANGELO Ioversol (Optiray 320 125ml) 89 ml IV ONCE ONE Stop: 08/26/24 01:51 Last Admin: 08/26/24 01:50 Dose: 89 ml Documented By: ANNABELLE Phenazopyridine HCl (Phenazopyridine Hcl 200 Mg Tab) 200 mg PO NOW STA Stop: 08/26/24 02:24 Last Admin: 08/26/24 02:48 Dose: 200 mg Documented By: DEANGELO Medical Decision Making Laboratory Data 08/26/24 01:12 08/26/24 01:18 Lab Results 08/26/24 08/26/24 08/26/24 Range/Units 01:12 01:13 01:18 WBC 7.75 (4.8-10.8) K/ul RBC 4.03 L (4.70-6.10) M/uL Hgb 9.3 L (14.0-18.0) g/dl POC Hgb (14.0-18.0) g/dl Hct 31.4 L (42.0-52.0) % POC Hct (42-52) % MCV 77.9 L (80.0-100.0) fL MCH 23.1 L (25.0-34.0) pg MCHC 29.6 L (32.0-36.0) g/dL RDW Std Deviation 45.4 (36.4-46.3) fL RDW Coeff of Adelia 15.9 H (11.5-14.5) % Plt Count 372 (130-400) K/uL MPV 9.4 (9.4-12.4) fL Immature Gran % (Auto) 0.1 % Neut % (Auto) 63.1 % Lymph % (Auto) 24.1 % [place] % (Auto) 8.4 % Eos % (Auto) 3.4 % Baso % (Auto) 0.9 % Neut # (Auto) 4.89 (1.40-6.50) K/uL Lymph # (Auto) 1.87 (1.20-3.40) K/uL [place] # (Auto) 0.65 H (0.11-0.59) K/uL Eos # (Auto) 0.26 (0.00-0.50) K/uL Baso # (Auto) 0.07 (0.00-0.20) K/uL Immature Gran # (Auto) 0.01 (0.01-0.20) K/uL PT 10.2 (9.0-12.0) Seconds INR 0.9 (0.9-1.1) POC Sodium (135-144) mmol/L Sodium 137 (136-145) mmol/L POC Potassium (3.3-5.0) mmol/L Potassium 3.9 (3.5-5.1) mmol/L POC Chloride (101-112) mmol/L Chloride 106 (98-107) mmol/L Carbon Dioxide 28 (21-32) mmol/L POC Total CO2 (24-31) mmol/L Anion Gap 3 (3-11) POC Anion Gap (16-25) mmol/L POC BUN (7-18) mg/dl BUN 7 (6-23) mg/dl Creatinine 0.66 (0.6-1.4) mg/dl POC Creatinine (0.6-1.3) mg/dl Est Cr Clr Drug Dosing 156.5 ml/min eGFR 116.42 BUN/Creatinine Ratio 10.6 (10-20) Glucose 105 H (70-99(Fasting)) mg/dl POC Glucose (other) (70-99) mg/dl Lactate (0.4-2.0) mmol/L Calcium 8.5 L (8.6-10.3) mg/dl POC Ioniz Calcium Maddi (1.12-1.32) mmol/l Magnesium 1.9 (1.7-2.4) mg/dl Total Bilirubin 0.3 (0.2-1.0) mg/dl Direct Bilirubin 0.1 (0-0.2) mg/dl AST 11 L (13-39) U/L ALT 5 L (7-52) U/L Alkaline Phosphatase 123 H (34-104) U/L Troponin I High Sens 4.5 (0-20) pg/ml Total Protein 6.1 (6.0-8.3) gm/dl Albumin 3.2 L (3.4-5.0) gm/dl Procalcitonin 0.03 (0-0.5) ng/ml Urine Color Urine Appearance (Clear) Urine pH (4.5-7.5) Ur Specific [place] (1.000-1.030) Urine Protein (Negative) Urine Glucose (UA) (Negative) Urine Ketones (Negative) Urine Blood (Negative) Urine Nitrite (Negative) Urine Bilirubin (Negative) Urine Urobilinogen (Negative) Ur Leukocyte Esterase (Negative) Urine WBC (Auto) (0-5) /hpf Urine RBC (Auto) (0-2) /hpf U Hyaline Cast (Auto) (0-2) /lpf U Epithel Cells (Auto) (0-2) /hpf Urine Bacteria (Auto) (None Seen) Urine Yeast (None Prsent) Adenovirus (PCR) (NotDetected) B. pertussis DNA (PCR) (NotDetected) B.parapertussis DNA PCR (NotDetected) C. pneumoniae DNA (PCR) (NotDetected) Coronavirus OC43 (PCR) (NotDetected) Coronavirus HKU1 (PCR) (NotDetected) Coronavirus 229E (PCR) (NotDetected) SARS-CoV-2 (PCR) (NotDetected) Coronavirus NL63 (PCR) (NotDetected) Human Metapneumovir PCR (NotDetected) Influenza Type A (PCR) (NotDetected) Influenza Type B (PCR) (NotDetected) M. pneumoniae (PCR) (NotDetected) Parainfluenza 1 (PCR) (NotDetected) Parainfluenza 2 (PCR) (NotDetected) Parainfluenza 3 (PCR) (NotDetected) Parainfluenza 4 (PCR) (NotDetected) RSV (PCR) (NotDetected) Entero/Rhino (PCR) (NotDetected) 08/26/24 08/26/24 08/26/24 Range/Units 01:21 01:27 01:38 WBC (4.8-10.8) K/ul RBC (4.70-6.10) M/uL Hgb (14.0-18.0) g/dl POC Hgb 9.5 L (14.0-18.0) g/dl Hct (42.0-52.0) % POC Hct 28 L (42-52) % MCV (80.0-100.0) fL MCH (25.0-34.0) pg MCHC (32.0-36.0) g/dL RDW Std Deviation (36.4-46.3) fL RDW Coeff of Adelia (11.5-14.5) % Plt Count (130-400) K/uL MPV (9.4-12.4) fL Immature Gran % (Auto) % Neut % (Auto) % Lymph % (Auto) % [place] % (Auto) % Eos % (Auto) % Baso % (Auto) % Neut # (Auto) (1.40-6.50) K/uL Lymph # (Auto) (1.20-3.40) K/uL [place] # (Auto) (0.11-0.59) K/uL Eos # (Auto) (0.00-0.50) K/uL Baso # (Auto) (0.00-0.20) K/uL Immature Gran # (Auto) (0.01-0.20) K/uL PT (9.0-12.0) Seconds INR (0.9-1.1) POC Sodium 139 (135-144) mmol/L Sodium (136-145) mmol/L POC Potassium 3.9 (3.3-5.0) mmol/L Potassium (3.5-5.1) mmol/L POC Chloride 104 (101-112) mmol/L Chloride (98-107) mmol/L Carbon Dioxide (21-32) mmol/L POC Total CO2 25 (24-31) mmol/L Anion Gap (3-11) POC Anion Gap 15.0 L (16-25) mmol/L POC BUN 5 L (7-18) mg/dl BUN (6-23) mg/dl Creatinine (0.6-1.4) mg/dl POC Creatinine 0.8 (0.6-1.3) mg/dl Est Cr Clr Drug Dosing ml/min eGFR BUN/Creatinine Ratio (10-20) Glucose (70-99(Fasting)) mg/dl POC Glucose (other) 104 H (70-99) mg/dl Lactate 1.2 (0.4-2.0) mmol/L Calcium (8.6-10.3) mg/dl POC Ioniz Calcium Maddi 1.19 (1.12-1.32) mmol/l Magnesium (1.7-2.4) mg/dl Total Bilirubin (0.2-1.0) mg/dl Direct Bilirubin (0-0.2) mg/dl AST (13-39) U/L ALT (7-52) U/L Alkaline Phosphatase (34-104) U/L Troponin I High Sens (0-20) pg/ml Total Protein (6.0-8.3) gm/dl Albumin (3.4-5.0) gm/dl Procalcitonin (0-0.5) ng/ml Urine Color Urine Appearance (Clear) Urine pH (4.5-7.5) Ur Specific [place] (1.000-1.030) Urine Protein (Negative) Urine Glucose (UA) (Negative) Urine Ketones (Negative) Urine Blood (Negative) Urine Nitrite (Negative) Urine Bilirubin (Negative) Urine Urobilinogen (Negative) Ur Leukocyte Esterase (Negative) Urine WBC (Auto) (0-5) /hpf Urine RBC (Auto) (0-2) /hpf U Hyaline Cast (Auto) (0-2) /lpf U Epithel Cells (Auto) (0-2) /hpf Urine Bacteria (Auto) (None Seen) Urine Yeast (None Prsent) Adenovirus (PCR) Not Detected (NotDetected) B. pertussis DNA (PCR) Not Detected (NotDetected) B.parapertussis DNA PCR Not Detected (NotDetected) C. pneumoniae DNA (PCR) Not Detected (NotDetected) Coronavirus OC43 (PCR) Not Detected (NotDetected) Coronavirus HKU1 (PCR) Not Detected (NotDetected) Coronavirus 229E (PCR) Not Detected (NotDetected) SARS-CoV-2 (PCR) Not Detected (NotDetected) Coronavirus NL63 (PCR) Not Detected (NotDetected) Human Metapneumovir PCR Not Detected (NotDetected) Influenza Type A (PCR) Not Detected (NotDetected) Influenza Type B (PCR) Not Detected (NotDetected) M. pneumoniae (PCR) Not Detected (NotDetected) Parainfluenza 1 (PCR) Not Detected (NotDetected) Parainfluenza 2 (PCR) Not Detected (NotDetected) Parainfluenza 3 (PCR) Not Detected (NotDetected) Parainfluenza 4 (PCR) Not Detected (NotDetected) RSV (PCR) Not Detected (NotDetected) Entero/Rhino (PCR) Not Detected (NotDetected) 08/26/24 Range/Units 01:55 WBC (4.8-10.8) K/ul RBC (4.70-6.10) M/uL Hgb (14.0-18.0) g/dl POC Hgb (14.0-18.0) g/dl Hct (42.0-52.0) % POC Hct (42-52) % MCV (80.0-100.0) fL MCH (25.0-34.0) pg MCHC (32.0-36.0) g/dL RDW Std Deviation (36.4-46.3) fL RDW Coeff of Adelia (11.5-14.5) % Plt Count (130-400) K/uL MPV (9.4-12.4) fL Immature Gran % (Auto) % Neut % (Auto) % Lymph % (Auto) % [place] % (Auto) % Eos % (Auto) % Baso % (Auto) % Neut # (Auto) (1.40-6.50) K/uL Lymph # (Auto) (1.20-3.40) K/uL [place] # (Auto) (0.11-0.59) K/uL Eos # (Auto) (0.00-0.50) K/uL Baso # (Auto) (0.00-0.20) K/uL Immature Gran # (Auto) (0.01-0.20) K/uL PT (9.0-12.0) Seconds INR (0.9-1.1) POC Sodium (135-144) mmol/L Sodium (136-145) mmol/L POC Potassium (3.3-5.0) mmol/L Potassium (3.5-5.1) mmol/L POC Chloride (101-112) mmol/L Chloride (98-107) mmol/L Carbon Dioxide (21-32) mmol/L POC Total CO2 (24-31) mmol/L Anion Gap (3-11) POC Anion Gap (16-25) mmol/L POC BUN (7-18) mg/dl BUN (6-23) mg/dl Creatinine (0.6-1.4) mg/dl POC Creatinine (0.6-1.3) mg/dl Est Cr Clr Drug Dosing ml/min eGFR BUN/Creatinine Ratio (10-20) Glucose (70-99(Fasting)) mg/dl POC Glucose (other) (70-99) mg/dl Lactate (0.4-2.0) mmol/L Calcium (8.6-10.3) mg/dl POC Ioniz Calcium Maddi (1.12-1.32) mmol/l Magnesium (1.7-2.4) mg/dl Total Bilirubin (0.2-1.0) mg/dl Direct Bilirubin (0-0.2) mg/dl AST (13-39) U/L ALT (7-52) U/L Alkaline Phosphatase (34-104) U/L Troponin I High Sens (0-20) pg/ml Total Protein (6.0-8.3) gm/dl Albumin (3.4-5.0) gm/dl Procalcitonin (0-0.5) ng/ml Urine Color Yellow Urine Appearance Cloudy A (Clear) Urine pH 8.0 H (4.5-7.5) Ur Specific [place] 1.031 H (1.000-1.030) Urine Protein Negative (Negative) Urine Glucose (UA) Negative (Negative) Urine Ketones Negative (Negative) Urine Blood 2+ H (Negative) Urine Nitrite Positive A (Negative) Urine Bilirubin Negative (Negative) Urine Urobilinogen Negative (Negative) Ur Leukocyte Esterase 3+ H (Negative) Urine WBC (Auto) >50 H (0-5) /hpf Urine RBC (Auto) >20 H (0-2) /hpf U Hyaline Cast (Auto) 3-5 H (0-2) /lpf U Epithel Cells (Auto) 0-2 (0-2) /hpf Urine Bacteria (Auto) 4+ H (None Seen) Urine Yeast Present A (None Prsent) Adenovirus (PCR) (NotDetected) B. pertussis DNA (PCR) (NotDetected) B.parapertussis DNA PCR (NotDetected) C. pneumoniae DNA (PCR) (NotDetected) Coronavirus OC43 (PCR) (NotDetected) Coronavirus HKU1 (PCR) (NotDetected) Coronavirus 229E (PCR) (NotDetected) SARS-CoV-2 (PCR) (NotDetected) Coronavirus NL63 (PCR) (NotDetected) Human Metapneumovir PCR (NotDetected) Influenza Type A (PCR) (NotDetected) Influenza Type B (PCR) (NotDetected) M. pneumoniae (PCR) (NotDetected) Parainfluenza 1 (PCR) (NotDetected) Parainfluenza 2 (PCR) (NotDetected) Parainfluenza 3 (PCR) (NotDetected) Parainfluenza 4 (PCR) (NotDetected) RSV (PCR) (NotDetected) Entero/Rhino (PCR) (NotDetected) Imaging Data Radiologist's Impression: Chest X-Ray 08/26/24 01:18 EXAM: XR chest 1V portable CLINICAL HISTORY: SEPSIS SDM TECHNIQUE: X-ray images of the chest were obtained in AP projections. COMPARISON: The associated CT study dated 08/26/2024 was reviewed. FINDINGS: Pulmonary Parenchyma: No evidence of consolidation, collapse, or focal opacities. No evidence of pleural effusion or pleural thickening. Right lower lung zone atelectatic plates with related ground glass shadows. Heart and Mediastinum: Increased cardiac size. Bilateral hilar prominent broncho vascular markings. Bony Thorax: Internal fixation of the lower cervical vertebra. IMPRESSION: 1. Cardiomegaly. 2. Right lower lung zone atelectatic plates with related ground glass shadows. 3. No acute cardiopulmonary abnormalities identified. Electronically signed by Daniel Duenas 08-26-2024 03:06 AM Chest CTA 08/26/24 01:24 EXAM: CT angio chest PE protocol CLINICAL HISTORY: r/o PE, UTI TECHNIQUE: CT angiography of the chest was performed with and without intravenous contrast with the following protocol: axial images with, reconstructed coronal and sagittal images. Non-contrast images were initially acquired, followed by contrast-enhanced images in arterial and venous phases. Intravenous contrast 89 ml opti 320 was administered using automated injection techniques. Bolus tracking was employed to optimize arterial phase imaging. One of these 3D techniques was utilized: Maximum Intensity Pixel (MIP), 3D Reconstructed Images, Volume Rendered Images, Surface Shaded Rendering. One of the following dose reduction techniques was utilized for this exam: Automated exposure control, adjustment of the mA and/or kV according to patient size, and use of iterative reconstruction. DLP 826.48 COMPARISON: Comparison is made with 05/16/2024 FINDINGS: Aorta and Great Vessels: Ascending Aorta: Normal in caliber, no aneurysm, dissection, or significant atherosclerosis. Aortic Arch: Normal in caliber, no aneurysm, dissection, or significant atherosclerosis. Descending Aorta: Normal in caliber, no aneurysm, dissection, or significant atherosclerosis. Pulmonary Arteries: The main pulmonary artery and its branches are patent measures about 32mm. No evidence of pulmonary embolism or significant stenosis. Heart: Cardiac Chambers: left ventricle is mildly dilated. Pericardium: No pericardial effusion or thickening. Lungs and Pleura: Mild regression of the previously seen right mild pleural effusion, basal atelectatic changes and ben bronchial thickening with no signs of active inflammatory changes. Minimally increased left pleural effusion, with stable basal atelectatic changes and ben bronchial thickening. Mediastinum: No mediastinal mass or abnormal lymphadenopathy. Normal appearance of the trachea and central bronchi. Hilar Structures: Hilar structures are normal without enlargement. Chest Wall: No mass lesions or abnormalities in the chest wall. Vascular Structures: Superior Vena Cava: Patent without evidence of stenosis or thrombus. Inferior Vena Cava: Patent without evidence of stenosis or thrombus. Bones and Soft Tissues: No fractures, lytic, or blastic lesions of the visualized bony structures. Soft tissues are unremarkable. Thoracic spondylosis with multilevel Schmorl's nodes. IMPRESSION: 1. No signs of pulmonary thromboembolism. 2. No active inflammatory changes. 3. Prominent pulmonary artery. 4. Right mild pleural effusion, basal atelectatic changes and ben bronchial thickening. 5. Minimally increased left pleural effusion, with stable basal atelectatic changes and ben bronchial thickening. Electronically signed by Daniel Duenas 08-26-2024 03:52 AM Abdomen/Pelvis CT 08/26/24 03:21 EXAM: CT abd pelvis wo con CLINICAL HISTORY: Pt recently dc from [facility] after a UTI. Pt has a chronic hartman. According to pt, he never received any IV abx while admitted. Pt stated he was prescribed abx on dc but did not take them at home. Pt c/o of 9/10 abdominal pain. Pt took tylenol at home for a fever. On arrival, pt is afebile. PW TECHNIQUE: Non-contrast CT of the abdomen and pelvis was performed, with the following protocol: axial images, and reconstructed coronal and sagittal images. One of the following dose reduction techniques was utilized for this exam: Automated exposure control, adjustment of the mA and/or kV according to patient size, and use of iterative reconstruction. DLP 1539.91 COMPARISON: CT angio chest 08/26/2024 01:51:00 [employer] SPECIALIST was reviewed. FINDINGS: Visualized lower chest: Unchanged minimal bilateral pleural effusion. Passive atelectatic changes. Abdomen: Liver: The liver measures about 20 cm in maximum craniocaudal dimension. Normal inshape, and density. No focal lesions, cysts, or masses were identified. Gallbladder and Biliary System: Evidence of cholecystectomy. Unremarkable biliary system. Pancreas: Mild fatty changes. Pancreatic head, body, and tail are visualized and appear normal in size and density. No pancreatic masses or calcifications were noted. Spleen: Spleen measured about 14 cm in maximum length. Normal in shape, and density. No splenic lesions or masses were identified. Appendix: Could not be identified. No signs of inflammatory changes in right iliac region. Kidneys and Adrenal Glands: Both kidneys are normal in size, shape, and position. Cortical thickness is within normal limits. No renal calculi or hydronephrosis. Adrenal glands are unremarkable. Abdominal Aorta and Vessels: The abdominal aorta and major branches are patent without evidence of an aneurysm or significant atherosclerosis. Pelvis: Urinary Bladder: Suprapubic Hartman's catheter is noted. The tip is seen inside the urinary bladder. The prostate is unremarkable. Peritoneal and Retroperitoneal Structures: No free fluid or abnormal fluid collections were identified within the abdomen or pelvis. No lymphadenopathy was noted. Bowel: Mild colonic fecal loading. The visualized bowel loops are normal in caliber and appearance. No evidence of bowel obstruction or wall thickening. Bones and Soft Tissues: Subcutaneous defect seen in the sacral area. Degenerative changes of the coccyx. Diffuse subcutaneous soft tissue edema seen in both gluteal regions, more on the right side. IMPRESSION: 1. Subcutaneous defect seen in the sacral area. Degenerative changes of the coccyx. Findings likely due to chronic sacral ulcer. Need clinical correlation. 2. Diffuse subcutaneous soft tissue edema seen in both gluteal regions. 3. Mild colonic fecal loading. This could be due to constipation. Please correlate clinically. 4. Mild hepatosplenomegaly. 5. Evidence of cholecystectomy. Electronically signed by Daniel Duenas 08-26-2024 05:46 AM MDM Narrative xrta chart Impression & Plan Sepsis, Acute UTI Discharge Plan Visit Data Chief Complaint: Urinary Symptoms Stated Complaint: UTI, Fever ED Provider: Jennifer Malagon ED Midlevel Provider: Kathleen Anderson Discharge Problem: Sepsis, Acute UTI Patient Disposition: Admitted As Inpatient Condition: Fair Forms Stand Alone Forms: [facility] Prescriptions Prescriptions: No Action albuterol sulfate 2.5 mg /3 mL (0.083 %) Solution For Nebulization 2.5 mg INHALATION Q4H PRN (Reason: Shortness Of Breath Or Wheezing) oxybutynin chloride 10 mg tablet extended release 24hr 10 mg PO DAILY sennosides-docusate sodium [Senexon-S] 8.6-50 mg tablet 2 tab PO HS nortriptyline 25 mg capsule 25 mg PO HS bisacodyl 10 mg suppository [address] BID lidocaine 5 % adhesive patch,medicated 1 patch topical DAILY PRN (Reason: Pain) docusate sodium 100 mg capsule 100 mg PO BID PRN (Reason: Constipation) hydroxyzine HCl 25 mg tablet 25 mg PO DAILY PRN (Reason: Anxiety) ferrous sulfate 325 mg (65 mg iron) tablet,delayed release (DR/EC) 325 mg PO DAILY midodrine 10 mg tablet 10 mg PO TID PRN (Reason: Hypotension) Rx Instructions: PRN SBP< 90 lactulose 10 gram/15 mL solution 20 g PO TID PRN (Reason: Constipation) budesonide-formoterol 160-4.5 mcg/actuation HFA aerosol inhaler 2 puff INHALATION BID Spiriva Respimat 2.5 mcg/actuation mist 2 puff INHALATION DAILY Eliquis 5 mg tablet 5 mg PO BID multivitamin Tablet 1 tab PO DAILY ascorbic acid (vitamin C) [Vitamin C] 500 mg tablet 500 mg PO DAILY baclofen 10 mg tablet 20 mg PO TID PRN (Reason: muscle spasms) pantoprazole 40 mg tablet,delayed release (DR/EC) 40 mg PO DAILY Referrals Referrals: Chay Aguilar DO [Primary Care Provider] - Discharge Problem: Sepsis Qualifiers: Sepsis type: sepsis due to unspecified organism Sepsis acute organ dysfunction status: unspecified Qualified Code(s): A41.9 - Sepsis, unspecified organism
--- NOTE | 2024-08-26 02:29 | Emergency Department Note ---
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 He was seen here the other day and not started on antibiotics. Patient denies chest pain, dyspnea, cough, congestion, vomiting, diarrhea. He is hypotensive on initial evaluation. Septic protocol and fluids were initiated. Home Medications Medication Instructions Recorded Confirmed Type albuterol sulfate 2.5 mg/3 mL 2.5 mg inhalation Q4H PRN 08/26/24 08/26/24 History (0.083 %) solution for nebulization Shortness Of Breath Or Wheezing apixaban 5 mg tablet (Eliquis) 5 mg PO BID 08/26/24 08/26/24 History ascorbic acid (vitamin C) 500 mg 500 mg PO DAILY 08/26/24 08/26/24 History tablet (Vitamin C) baclofen 10 mg tablet 20 mg PO TID PRN muscle spasms 08/26/24 08/26/24 History bisacodyl 10 mg rectal suppository 10 mg DE BID 08/26/24 08/26/24 History budesonide-formoterol HFA 160 2 puff inhalation BID 08/26/24 08/26/24 History mcg-4.5 mcg/actuation aerosol inhaler docusate sodium 100 mg capsule 100 mg PO BID PRN Constipation 08/26/24 08/26/24 History ferrous sulfate 325 mg (65 mg 325 mg PO DAILY 08/26/24 08/26/24 History iron) tablet,delayed release hydroxyzine HCl 25 mg tablet 25 mg PO DAILY PRN Anxiety 08/26/24 08/26/24 History lactulose 10 gram/15 mL oral 20 g PO TID PRN Constipation 08/26/24 08/26/24 History solution lidocaine 5 % topical patch 1 patch topical DAILY PRN Pain 08/26/24 08/26/24 History midodrine 10 mg tablet 10 mg PO TID PRN Hypotension 08/26/24 08/26/24 History multivitamin 1 tab PO DAILY 08/26/24 08/26/24 History nortriptyline 25 mg capsule 25 mg PO HS 08/26/24 08/26/24 History oxybutynin chloride 10 mg 10 mg PO DAILY 08/26/24 08/26/24 History tablet,extended release 24 hr pantoprazole 40 mg tablet,delayed 40 mg PO DAILY 08/26/24 08/26/24 History release sennosides 8.6 mg-docusate sodium 2 tab PO HS 08/26/24 08/26/24 History 50 mg tablet (Senexon-S) tiotropium bromide 2.5 2 puff inhalation DAILY 08/26/24 08/26/24 History mcg/actuation mist for inhalation (Spiriva Respimat) Allergies Allergy/AdvReac Type Severity Reaction Status Date / Time Opioids - Morphine Analogues AdvReac severe Verified 05/17/24 15:46 bradycardia Past Med/Surg History Problem List (Updated 08/26/24 @ 06:00 by Kathleen Anderson PA-C) Acute UTI (Acute) Sepsis (Acute) Constipation (Acute) Gastritis (Acute) Elevated hemidiaphragm Abnormal chest CT Pneumonia (Acute) Cough (Acute) Left sided abdominal pain (Acute) Quadriplegia (Acute) Hypotension (Acute) Abdominal pain Autonomic dysreflexia Constipation Hydronephrosis (Acute) Acute urinary retention (Acute) Leukocytosis (Acute) Complication, blocked suprapubic catheter Hypokalemia (Acute) Hypomagnesemia (Acute) Anemia (Acute) Quadriplegia (Acute) Sacral decubitus ulcer (Acute) Acute UTI (Acute) Hypotension (Acute) Encephalopathy Pneumonia (Acute) Complicated urinary tract infection (Acute Unknown) Change or removal of nonsurgical wound dressing Acute hypoxemic respiratory failure (Acute) Chest pain (Acute) Severe sepsis (Acute) MRSA carrier Pneumonia (Acute) Hypoxic respiratory failure (Acute) 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 Leg wound, right Leg wound, left History of pulmonary embolism Hypoxia (Acute) RSV (respiratory syncytial virus infection) Chronic pain (Acute) Suprapubic catheter (Acute) Complicated UTI (urinary tract infection) (Acute) Sacral decubitus ulcer, stage IV (Acute) Chronic osteomyelitis of sacrum Medical History Abdominal pain Aspiration pneumonitis Pneumonia Paraplegia Surgical History No pertinent past surgical history Social History Smoking Status: Former smoker Tobacco Type: Cigarettes Cigarettes Per Day: 50-60; Second Hand Exposure: Yes; Do You Dip or Chew Tobacco: Yes; Hx Alcohol Use: No Hx Substance Use: No Preferred Language: Gibralt[place] Communication Ability: Effective Communication Ability Comment: difficulty writing 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 Beliefs That Will Affect Care: None Current Living Situation: Alone 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 28/02 Feels Safe at Home: Yes Assistive Devices: Hospital Bed, Mechanical Lift and Scooter/Electric Scooter Review of Systems A total of 10 systems reviewed and were otherwise negative Physical Exam 2 Vital Signs: Vital Signs - 24 hr 08/26/24 01:08 08/26/24 01:13 08/26/24 01:15 Temperature 36.8 C Temperature Source Oral Pulse Rate 86 83 Respiratory Rate 18 Blood Pressure 80/45 L Blood Pressure [Le ft Arm] 119/82 Blood Pressure Mary n 56 Blood Pressure Mary n [Left Arm] 94 Pulse Oximetry 97 Oxygen Delivery Me thod Room Air Sepsis Recent Feve r Within 48 Hours Yes Sepsis New/Unexpla ined Change in Men gilmar Status N/A Sepsis Action Take n by Nursing No Action Required 08/26/24 01:30 08/26/24 01:45 08/26/24 02:00 Temperature Temperature Source Pulse Rate 70 82 82 Respiratory Rate 20 22 24 Blood Pressure 100/63 114/74 119/82 Blood Pressure [Le ft Arm] Blood Pressure Mary n 77 87 94 Blood Pressure Mary n [Left Arm] Pulse Oximetry 97 94 95 Oxygen Delivery Me thod Sepsis Recent Feve r Within 48 Hours Sepsis New/Unexpla ined Change in Men gilmar Status Sepsis Action Take n by Nursing 08/26/24 02:15 08/26/24 02:30 08/26/24 02:45 Temperature Temperature Source Pulse Rate 87 78 76 Respiratory Rate 18 20 18 Blood Pressure 94/59 L 97/61 L 89/68 L Blood Pressure [Le ft Arm] Blood Pressure Mary n 70 67 74 Blood Pressure Mary n [Left Arm] Pulse Oximetry 93 93 94 Oxygen Delivery Me thod Sepsis Recent Feve r Within 48 Hours Sepsis New/Unexpla ined Change in Men gilmar Status Sepsis Action Take n by Nursing 08/26/24 03:00 08/26/24 03:15 08/26/24 03:30 Temperature Temperature Source Pulse Rate 68 70 64 Respiratory Rate 16 22 18 Blood Pressure 106/79 115/85 112/67 Blood Pressure [Le ft Arm] Blood Pressure Mary n 87 94 82 Blood Pressure Mary n [Left Arm] Pulse Oximetry 92 92 96 Oxygen Delivery Me thod Sepsis Recent Feve r Within 48 Hours Sepsis New/Unexpla ined Change in Men gilmar Status Sepsis Action Take n by Nursing 08/26/24 03:45 08/26/24 04:00 08/26/24 04:10 Temperature Temperature Source Pulse Rate 67 66 67 Respiratory Rate 16 18 18 Blood Pressure 104/75 104/75 114/82 Blood Pressure [Le ft Arm] Blood Pressure Mary n 84 84 96 Blood Pressure Mary n [Left Arm] Pulse Oximetry 94 96 95 Oxygen Delivery Me thod Sepsis Recent Feve r Within 48 Hours Sepsis New/Unexpla ined Change in Men gilmar Status Sepsis Action Take n by Nursing 08/26/24 05:23 08/26/24 05:30 Temperature Temperature Source Pulse Rate 68 68 Respiratory Rate 18 Blood Pressure 94/59 L Blood Pressure [Le ft Arm] Blood Pressure Mary n 70 Blood Pressure Mary n [Left Arm] Pulse Oximetry 94 Oxygen Delivery Me thod Sepsis Recent Feve r Within 48 Hours Sepsis New/Unexpla ined Change in Men gilmar Status Sepsis Action Take n by Nursing Physical Exam: VITALS: Vitals are noted on the nurse's note and reviewed by myself. Vital signs hypotensive GENERAL: White male with indwelling suprapubic cath, in no acute distress, nondiaphoretic, well-developed well-nourished. SKIN: Capillary reflex less than 2 seconds. HEENT: Normocephalic. PERRLA. EOMI. Nares patent. Mucous membranes moist. Neck is supple without nuchal rigidity. HEART: Regular rate and rhythm LUNGS: Clear to auscultation bilaterally without wheezes, rales or rhonchi. No retractions or accessory muscle use. ABDOMEN: Positive bowel sounds x 4. Normal tympanic percussion. Soft, tender to palpation lower abdomen, suprapubic cath in place, without masses or organomegaly. Ramirez sign negative. No guarding or rebound tenderness. no CVA tenderness MUSCULOSKELETAL: No gross musculoskeletal defects. NEURO: Patient was alert and oriented to person place and time. No new focal neurological deficits. Course Administered Medications Discontinued Medications Piperacillin Sod/Tazobactam Sod (Zosyn) 4.5 gm in 100 mls @ 200 mls/hr IV NOW ONE; Protocol Stop: 08/26/24 01:46 Last Infusion: 08/26/24 02:03 Dose: Infused Documented By: Admin: 08/26/24 01:31 Dose: 200 mls/hr Documented By: DEANGELO Vancomycin HCl 2,000 mg/ (Sodium Chloride) 540 mls @ 200 mls/hr IV NOW ONE Stop: 08/26/24 03:58 Last Infusion: 08/26/24 05:07 Dose: Infused Documented By: [facility] Admin: 08/26/24 02:24 Dose: 200 mls/hr Documented By: DEANGELO Sodium Chloride (Nss) 1,000 mls @ 999 mls/hr IV .Q1H1M ROSALES Stop: 08/26/24 03:30 Last Infusion: 08/26/24 03:08 Dose: Infused Documented By: Admin: 08/26/24 02:06 Dose: 999 mls/hr Documented By: Infusion: 08/26/24 02:06 Dose: Infused Documented By: Admin: 08/26/24 01:30 Dose: 999 mls/hr Documented By: DEANGELO Sodium Chloride (Nss) 1,000 mls @ 999 mls/hr IV .Q1H1M ONE Stop: 08/26/24 02:17 Last Infusion: 08/26/24 02:45 Dose: Infused Documented By: Admin: 08/26/24 01:29 Dose: 999 mls/hr Documented By: DEANGELO Acetaminophen (Ofirmev) 1,000 mg in 100 mls @ 400 mls/hr IV NOW STA Stop: 08/26/24 02:37 Last Infusion: 08/26/24 03:05 Dose: Infused Documented By: Admin: 08/26/24 02:48 Dose: 400 mls/hr Documented By: DEANGELO Ioversol (Optiray 320 125ml) 89 ml IV ONCE ONE Stop: 08/26/24 01:51 Last Admin: 08/26/24 01:50 Dose: 89 ml Documented By: ANNABELLE Phenazopyridine HCl (Phenazopyridine Hcl 200 Mg Tab) 200 mg PO NOW STA Stop: 08/26/24 02:24 Last Admin: 08/26/24 02:48 Dose: 200 mg Documented By: DEANGELO Medical Decision Making Medical Records Attestation: I reviewed the patient's medical records. Laboratory Data Attestation: I reviewed the patient's lab results. 08/26/24 01:12 08/26/24 01:18 Lab Results 08/26/24 08/26/24 08/26/24 Range/Units 01:12 01:13 01:18 WBC 7.75 (4.8-10.8) K/ul RBC 4.03 L (4.70-6.10) M/uL Hgb 9.3 L (14.0-18.0) g/dl POC Hgb (14.0-18.0) g/dl Hct 31.4 L (42.0-52.0) % POC Hct (42-52) % MCV 77.9 L (80.0-100.0) fL MCH 23.1 L (25.0-34.0) pg MCHC 29.6 L (32.0-36.0) g/dL RDW Std Deviation 45.4 (36.4-46.3) fL RDW Coeff of Adelia 15.9 H (11.5-14.5) % Plt Count 372 (130-400) K/uL MPV 9.4 (9.4-12.4) fL Immature Gran % (Auto) 0.1 % Neut % (Auto) 63.1 % Lymph % (Auto) 24.1 % [place] % (Auto) 8.4 % Eos % (Auto) 3.4 % Baso % (Auto) 0.9 % Neut # (Auto) 4.89 (1.40-6.50) K/uL Lymph # (Auto) 1.87 (1.20-3.40) K/uL [place] # (Auto) 0.65 H (0.11-0.59) K/uL Eos # (Auto) 0.26 (0.00-0.50) K/uL Baso # (Auto) 0.07 (0.00-0.20) K/uL Immature Gran # (Auto) 0.01 (0.01-0.20) K/uL PT 10.2 (9.0-12.0) Seconds INR 0.9 (0.9-1.1) POC Sodium (135-144) mmol/L Sodium 137 (136-145) mmol/L POC Potassium (3.3-5.0) mmol/L Potassium 3.9 (3.5-5.1) mmol/L POC Chloride (101-112) mmol/L Chloride 106 (98-107) mmol/L Carbon Dioxide 28 (21-32) mmol/L POC Total CO2 (24-31) mmol/L Anion Gap 3 (3-11) POC Anion Gap (16-25) mmol/L POC BUN (7-18) mg/dl BUN 7 (6-23) mg/dl Creatinine 0.66 (0.6-1.4) mg/dl POC Creatinine (0.6-1.3) mg/dl Est Cr Clr Drug Dosing 156.5 ml/min eGFR 116.42 BUN/Creatinine Ratio 10.6 (10-20) Glucose 105 H (70-99(Fasting)) mg/dl POC Glucose (other) (70-99) mg/dl Lactate (0.4-2.0) mmol/L Calcium 8.5 L (8.6-10.3) mg/dl POC Ioniz Calcium Maddi (1.12-1.32) mmol/l Magnesium 1.9 (1.7-2.4) mg/dl Total Bilirubin 0.3 (0.2-1.0) mg/dl Direct Bilirubin 0.1 (0-0.2) mg/dl AST 11 L (13-39) U/L ALT 5 L (7-52) U/L Alkaline Phosphatase 123 H (34-104) U/L Troponin I High Sens 4.5 (0-20) pg/ml Total Protein 6.1 (6.0-8.3) gm/dl Albumin 3.2 L (3.4-5.0) gm/dl Procalcitonin 0.03 (0-0.5) ng/ml Urine Color Urine Appearance (Clear) Urine pH (4.5-7.5) Ur Specific [place] (1.000-1.030) Urine Protein (Negative) Urine Glucose (UA) (Negative) Urine Ketones (Negative) Urine Blood (Negative) Urine Nitrite (Negative) Urine Bilirubin (Negative) Urine Urobilinogen (Negative) Ur Leukocyte Esterase (Negative) Urine WBC (Auto) (0-5) /hpf Urine RBC (Auto) (0-2) /hpf U Hyaline Cast (Auto) (0-2) /lpf U Epithel Cells (Auto) (0-2) /hpf Urine Bacteria (Auto) (None Seen) Urine Yeast (None Prsent) Adenovirus (PCR) (NotDetected) B. pertussis DNA (PCR) (NotDetected) B.parapertussis DNA PCR (NotDetected) C. pneumoniae DNA (PCR) (NotDetected) Coronavirus OC43 (PCR) (NotDetected) Coronavirus HKU1 (PCR) (NotDetected) Coronavirus 229E (PCR) (NotDetected) SARS-CoV-2 (PCR) (NotDetected) Coronavirus NL63 (PCR) (NotDetected) Human Metapneumovir PCR (NotDetected) Influenza Type A (PCR) (NotDetected) Influenza Type B (PCR) (NotDetected) M. pneumoniae (PCR) (NotDetected) Parainfluenza 1 (PCR) (NotDetected) Parainfluenza 2 (PCR) (NotDetected) Parainfluenza 3 (PCR) (NotDetected) Parainfluenza 4 (PCR) (NotDetected) RSV (PCR) (NotDetected) Entero/Rhino (PCR) (NotDetected) 08/26/24 08/26/24 08/26/24 Range/Units 01:21 01:27 01:38 WBC (4.8-10.8) K/ul RBC (4.70-6.10) M/uL Hgb (14.0-18.0) g/dl POC Hgb 9.5 L (14.0-18.0) g/dl Hct (42.0-52.0) % POC Hct 28 L (42-52) % MCV (80.0-100.0) fL MCH (25.0-34.0) pg MCHC (32.0-36.0) g/dL RDW Std Deviation (36.4-46.3) fL RDW Coeff of [place]elia (11.5-14.5) % Plt Count (130-400) K/uL MPV (9.4-12.4) fL Immature Gran % (Auto) % Neut % (Auto) % Lymph % (Auto) % [place] % (Auto) % Eos % (Auto) % Baso % (Auto) % Neut # (Auto) (1.40-6.50) K/uL Lymph # (Auto) (1.20-3.40) K/uL [place] # (Auto) (0.11-0.59) K/uL Eos # (Auto) (0.00-0.50) K/uL Baso # (Auto) (0.00-0.20) K/uL Immature Gran # (Auto) (0.01-0.20) K/uL PT (9.0-12.0) Seconds INR (0.9-1.1) POC Sodium 139 (135-144) mmol/L Sodium (136-145) mmol/L POC Potassium 3.9 (3.3-5.0) mmol/L Potassium (3.5-5.1) mmol/L POC Chloride 104 (101-112) mmol/L Chloride (98-107) mmol/L Carbon Dioxide (21-32) mmol/L POC Total CO2 25 (24-31) mmol/L Anion Gap (3-11) POC Anion Gap 15.0 L (16-25) mmol/L POC BUN 5 L (7-18) mg/dl BUN (6-23) mg/dl Creatinine (0.6-1.4) mg/dl POC Creatinine 0.8 (0.6-1.3) mg/dl Est Cr Clr Drug Dosing ml/min eGFR BUN/Creatinine Ratio (10-20) Glucose (70-99(Fasting)) mg/dl POC Glucose (other) 104 H (70-99) mg/dl Lactate 1.2 (0.4-2.0) mmol/L Calcium (8.6-10.3) mg/dl POC Ioniz Calcium Maddi 1.19 (1.12-1.32) mmol/l Magnesium (1.7-2.4) mg/dl Total Bilirubin (0.2-1.0) mg/dl Direct Bilirubin (0-0.2) mg/dl AST (13-39) U/L ALT (7-52) U/L Alkaline Phosphatase (34-104) U/L Troponin I High Sens (0-20) pg/ml Total Protein (6.0-8.3) gm/dl Albumin (3.4-5.0) gm/dl Procalcitonin (0-0.5) ng/ml Urine Color Urine Appearance (Clear) Urine pH (4.5-7.5) Ur Specific [place] (1.000-1.030) Urine Protein (Negative) Urine Glucose (UA) (Negative) Urine Ketones (Negative) Urine Blood (Negative) Urine Nitrite (Negative) Urine Bilirubin (Negative) Urine Urobilinogen (Negative) Ur Leukocyte Esterase (Negative) Urine WBC (Auto) (0-5) /hpf Urine RBC (Auto) (0-2) /hpf U Hyaline Cast (Auto) (0-2) /lpf U Epithel Cells (Auto) (0-2) /hpf Urine Bacteria (Auto) (None Seen) Urine Yeast (None Prsent) Adenovirus (PCR) Not Detected (NotDetected) B. pertussis DNA (PCR) Not Detected (NotDetected) B.parapertussis DNA PCR Not Detected (NotDetected) C. pneumoniae DNA (PCR) Not Detected (NotDetected) Coronavirus OC43 (PCR) Not Detected (NotDetected) Coronavirus HKU1 (PCR) Not Detected (NotDetected) Coronavirus 229E (PCR) Not Detected (NotDetected) SARS-CoV-2 (PCR) Not Detected (NotDetected) Coronavirus NL63 (PCR) Not Detected (NotDetected) Human Metapneumovir PCR Not Detected (NotDetected) Influenza Type A (PCR) Not Detected (NotDetected) Influenza Type B (PCR) Not Detected (NotDetected) M. pneumoniae (PCR) Not Detected (NotDetected) Parainfluenza 1 (PCR) Not Detected (NotDetected) Parainfluenza 2 (PCR) Not Detected (NotDetected) Parainfluenza 3 (PCR) Not Detected (NotDetected) Parainfluenza 4 (PCR) Not Detected (NotDetected) RSV (PCR) Not Detected (NotDetected) Entero/Rhino (PCR) Not Detected (NotDetected) 08/26/24 Range/Units 01:55 WBC (4.8-10.8) K/ul RBC (4.70-6.10) M/uL Hgb (14.0-18.0) g/dl POC Hgb (14.0-18.0) g/dl Hct (42.0-52.0) % POC Hct (42-52) % MCV (80.0-100.0) fL MCH (25.0-34.0) pg MCHC (32.0-36.0) g/dL RDW Std Deviation (36.4-46.3) fL RDW Coeff of [place]elia (11.5-14.5) % Plt Count (130-400) K/uL MPV (9.4-12.4) fL Immature Gran % (Auto) % Neut % (Auto) % Lymph % (Auto) % [place] % (Auto) % Eos % (Auto) % Baso % (Auto) % Neut # (Auto) (1.40-6.50) K/uL Lymph # (Auto) (1.20-3.40) K/uL [place] # (Auto) (0.11-0.59) K/uL Eos # (Auto) (0.00-0.50) K/uL Baso # (Auto) (0.00-0.20) K/uL Immature Gran # (Auto) (0.01-0.20) K/uL PT (9.0-12.0) Seconds INR (0.9-1.1) POC Sodium (135-144) mmol/L Sodium (136-145) mmol/L POC Potassium (3.3-5.0) mmol/L Potassium (3.5-5.1) mmol/L POC Chloride (101-112) mmol/L Chloride (98-107) mmol/L Carbon Dioxide (21-32) mmol/L POC Total CO2 (24-31) mmol/L Anion Gap (3-11) POC Anion Gap (16-25) mmol/L POC BUN (7-18) mg/dl BUN (6-23) mg/dl Creatinine (0.6-1.4) mg/dl POC Creatinine (0.6-1.3) mg/dl Est Cr Clr Drug Dosing ml/min eGFR BUN/Creatinine Ratio (10-20) Glucose (70-99(Fasting)) mg/dl POC Glucose (other) (70-99) mg/dl Lactate (0.4-2.0) mmol/L Calcium (8.6-10.3) mg/dl POC Ioniz Calcium Maddi (1.12-1.32) mmol/l Magnesium (1.7-2.4) mg/dl Total Bilirubin (0.2-1.0) mg/dl Direct Bilirubin (0-0.2) mg/dl AST (13-39) U/L ALT (7-52) U/L Alkaline Phosphatase (34-104) U/L Troponin I High Sens (0-20) pg/ml Total Protein (6.0-8.3) gm/dl Albumin (3.4-5.0) gm/dl Procalcitonin (0-0.5) ng/ml Urine Color Yellow Urine Appearance Cloudy A (Clear) Urine pH 8.0 H (4.5-7.5) Ur Specific [place] 1.031 H (1.000-1.030) Urine Protein Negative (Negative) Urine Glucose (UA) Negative (Negative) Urine Ketones Negative (Negative) Urine Blood 2+ H (Negative) Urine Nitrite Positive A (Negative) Urine Bilirubin Negative (Negative) Urine Urobilinogen Negative (Negative) Ur Leukocyte Esterase 3+ H (Negative) Urine WBC (Auto) >50 H (0-5) /hpf Urine RBC (Auto) >20 H (0-2) /hpf U Hyaline Cast (Auto) 3-5 H (0-2) /lpf U Epithel Cells (Auto) 0-2 (0-2) /hpf Urine Bacteria (Auto) 4+ H (None Seen) Urine Yeast Present A (None Prsent) Adenovirus (PCR) (NotDetected) B. pertussis DNA (PCR) (NotDetected) B.parapertussis DNA PCR (NotDetected) C. pneumoniae DNA (PCR) (NotDetected) Coronavirus OC43 (PCR) (NotDetected) Coronavirus HKU1 (PCR) (NotDetected) Coronavirus 229E (PCR) (NotDetected) SARS-CoV-2 (PCR) (NotDetected) Coronavirus NL63 (PCR) (NotDetected) Human Metapneumovir PCR (NotDetected) Influenza Type A (PCR) (NotDetected) Influenza Type B (PCR) (NotDetected) M. pneumoniae (PCR) (NotDetected) Parainfluenza 1 (PCR) (NotDetected) Parainfluenza 2 (PCR) (NotDetected) Parainfluenza 3 (PCR) (NotDetected) Parainfluenza 4 (PCR) (NotDetected) RSV (PCR) (NotDetected) Entero/Rhino (PCR) (NotDetected) Imaging Data Attestation: I personally reviewed and interpreted this imaging study as follows: MDM Narrative Prior records/ancillary studies reviewed. Triage Nursing notes reviewed. Additional history obtained from nursing. The patient's history was concerning for hypotensive and abdominal pain. Differential diagnosis: Etiologies such as sepsis, UTI, pneumonia, metabolic, electrolyte abnormalities, cardiac sources, intracerebral event, toxicologic, neurologic, as well as others were entertained. Physical examination: As above. Pertinent findings were abdominal pain. Vital signs reviewed and revealed hypotensive. ER treatment provided: IV fluid resuscitation with Normal saline solution, 3000 mL bolus. IV fluid hydration with Normal saline solution at 125 mL/hr. Blood and urine cultures Antibiotics: Zosyn and vancomycin were ordered An order was placed for continuous cardiac monitoring. The monitor shows a rate of 60-100 with a sinus rhythm per my interpretation. On reassessment the patient vital signs improved. Diagnostics interpretation by me: ECG: Ordered for sepsis EKG: Normal sinus, normal intervals, no acute ST-T wave changes. Impression normal sinus rhythm independently interpreted by myself The labs Independently Interpreted by myself revealed no worrisome leukocytosis on CBC. Chemistry panel revealed glucose 105. LFTs revealed. Cardiac enzymes were negative. Serum Lactate measurement was 1.2. Blood and urine cultures are pending. [address] [place] [address] / Director: Jaycee Santana M.D. Clinical Laboratory Report Name: NEHEMIAS SANTOS Acct: [id number] Status: [facility] : 1975 [facility] [place] Date: 08/22/24 Age: 48 Sex: M Dis Date: Loc: Emergency Department Spec: [id number] Collected: 08/22/24 Received: 08/22/[address]: Pérez Rashid M.D. Source: Urine,Indwelling Cath OV Order: Ordered: Urine Culture Procedure Result Verified Site Urine Culture Final 08/25/24 Organism 1 Klebsiella pneumoniae [place] Count >100,000 CFU/ml Sens Sensitivities to Follow Organism 2 Pseudomonas aeruginosa [place] Count 50,000 CFU/ml Sens Sensitivities to Follow Kleb pneum P aerugino RX M.I.C. RX M.I.C. --- --------- --- --------- Amikacin S <=16 S <=16 Amox/Clav S <=8/4 Amp/Sul S <=4/2 Aztreonam S <=4 Cefazolin S <=2 Cefepime S <=2 S <=2 Cefotaxime S <=2 Cefoxitin S <=8 Ceftazidime S 8 Ceftriaxone S <=1 Cefuroxime S <=4 Ciprofloxacin S <=0.25 S <=0.25 Ertapenem S <=0.5 Gentamicin S <=2 S <=2 Levofloxacin S <=0.5 S <=0.5 Meropenem S <=1 S <=1 Nitrofurantoin S <=32 Tobramycin S <=2 S <=2 Trimeth/Sulfa S <=0.5/9.5 Pip/Tazo S <=8 S <=8 S = SENSITIVE I = INTERMEDIATE R = RESISTANT Imaging studies: Imaging was reviewed and read by radiology Consultation: A consultation was placed with the hospitalist. The case was discussed and diagnostics were reviewed. The patient was evaluated in the ER for further treatment. Exam and history seem consistent with with sepsis most likely from UTI. Patient started broad-spectrum antibiotics. Prior cultures were reviewed. He is agreeable to treatment plan of admission. Blood pressure did improve after fluids and antibiotics. Impression & Plan Sepsis, Acute UTI Discharge Plan Visit Data Chief Complaint: Urinary Symptoms Stated Complaint: UTI, Fever ED Provider: Jennifer Malagon ED Midlevel Provider: Kathleen Anderson Discharge Problem: Sepsis, Acute UTI Patient Disposition: Admitted As Inpatient Condition: Fair Forms Stand Alone Forms: On License Of [facility] Prescriptions Prescriptions: No Action albuterol sulfate 2.5 mg /3 mL (0.083 %) Solution For Nebulization 2.5 mg INHALATION Q4H PRN (Reason: Shortness Of Breath Or Wheezing) oxybutynin chloride 10 mg tablet extended release 24hr 10 mg PO DAILY sennosides-docusate sodium [Senexon-S] 8.6-50 mg tablet 2 tab PO HS nortriptyline 25 mg capsule 25 mg PO HS bisacodyl 10 mg suppository 10 mg DE BID lidocaine 5 % adhesive patch,medicated 1 patch topical DAILY PRN (Reason: Pain) docusate sodium 100 mg capsule 100 mg PO BID PRN (Reason: Constipation) hydroxyzine HCl 25 mg tablet 25 mg PO DAILY PRN (Reason: Anxiety) ferrous sulfate 325 mg (65 mg iron) tablet,delayed release (DR/EC) 325 mg PO DAILY midodrine 10 mg tablet 10 mg PO TID PRN (Reason: Hypotension) Rx Instructions: PRN SBP< 90 lactulose 10 gram/15 mL solution 20 g PO TID PRN (Reason: Constipation) budesonide-formoterol 160-4.5 mcg/actuation HFA aerosol inhaler 2 puff INHALATION BID Spiriva Respimat 2.5 mcg/actuation mist 2 puff INHALATION DAILY Eliquis 5 mg tablet 5 mg PO BID multivitamin Tablet 1 tab PO DAILY ascorbic acid (vitamin C) [Vitamin C] 500 mg tablet 500 mg PO DAILY baclofen 10 mg tablet 20 mg PO TID PRN (Reason: muscle spasms) pantoprazole 40 mg tablet,delayed release (DR/EC) 40 mg PO DAILY Referrals Referrals: Capp,Chay C., DO [Primary Care Provider] - Discharge Problem: Sepsis Qualifiers: Sepsis type: sepsis due to unspecified organism Sepsis acute organ dysfunction status: unspecified Qualified Code(s): A41.9 - Sepsis, unspecified organism
[2024-08-26 02:42] LABS: Appearance Urine Cloudy (Clear); Bacteria Urine Automated 4+ (None Seen); Bilirubin Urine Negative (Negative); Blood Urine 2+ (Negative); Color Urine Yellow; Epithelial Cell Urine Auto 0-2 /hpf (0-2); Glucose Urine UA Negative (Negative); Ketones Urine Negative (Negative); Leukocyte Esterase Urine 3+ (Negative); Nitrite Urine Positive (Negative); Protein Urine Negative (Negative); RBC Urine Automated >20 /hpf (0-2); Specific Gravity Urine 1.031 (1.000-1.030); Urobilinogen Urine Negative (Negative); WBC Urine Automated >50 /hpf (0-5)
[2024-08-26] MEDS: PHENAZOPYRIDINE HCL 200 MG TAB PO STA (02:48)
[2024-08-26] MEDS: ACETAMINOPHEN 1,000 MG/100 ML VIAL IV STA ×2 (02:48→17:12)
[2024-08-26 02:56] LABS: Adenovirus PCR Not Detected (NotDetected); Bordetella parapertussis PCR Not Detected (NotDetected); Bordetella pertussis PCR Not Detected (NotDetected); Chlamydia pneumoniae PCR Not Detected (NotDetected); Coronavirus 229E PCR Not Detected (NotDetected); Coronavirus CoV-2 (COVID19)PCR Not Detected (NotDetected); Coronavirus HKU1 PCR Not Detected (NotDetected); Coronavirus NL63 PCR Not Detected (NotDetected); Coronavirus OC43PCR Not Detected (NotDetected); Human Metapneumovirus PCR Not Detected (NotDetected); Influenza A PCR Not Detected (NotDetected); Influenza B PCR Not Detected (NotDetected); Mycoplasma pneumoniae PCR Not Detected (NotDetected); Parainfluenza Virus 1 PCR Not Detected (NotDetected); Parainfluenza Virus 2 PCR Not Detected (NotDetected); Parainfluenza Virus 3 PCR Not Detected (NotDetected); Parainfluenza Virus 4 PCR Not Detected (NotDetected); Respiratory Syncytial VirusPCR Not Detected (NotDetected); Rhinovirus/Enterovirus PCR Not Detected (NotDetected)
--- NOTE | 2024-08-26 03:07 | XRay Report ---
EXAM: XR chest 1V portable CLINICAL HISTORY: SEPSIS SDM TECHNIQUE: X-ray images of the chest were obtained in AP projections. COMPARISON: The associated CT study dated 08/26/2024 was reviewed. FINDINGS: Pulmonary Parenchyma: No evidence of consolidation, collapse, or focal opacities. No evidence of pleural effusion or pleural thickening. Right lower lung zone atelectatic plates with related ground glass shadows. Heart and Mediastinum: Increased cardiac size. Bilateral hilar prominent broncho vascular markings. Bony Thorax: Internal fixation of the lower cervical vertebra. IMPRESSION: 1. Cardiomegaly. 2. Right lower lung zone atelectatic plates with related ground glass shadows. 3. No acute cardiopulmonary abnormalities identified. Electronically signed by Daniel Duenas 08-26-2024 03:06 AM
--- NOTE | 2024-08-26 03:53 | CT Scan Report ---
EXAM: CT angio chest PE protocol CLINICAL HISTORY: r/o PE, UTI TECHNIQUE: CT angiography of the chest was performed with and without intravenous contrast with the following protocol: axial images with, reconstructed coronal and sagittal images. Non-contrast images were initially acquired, followed by contrast-enhanced images in arterial and venous phases. Intravenous contrast 89 ml opti 320 was administered using automated injection techniques. Bolus tracking was employed to optimize arterial phase imaging. One of these 3D techniques was utilized: Maximum Intensity Pixel (MIP), 3D Reconstructed Images, Volume Rendered Images, Surface Shaded Rendering. One of the following dose reduction techniques was utilized for this exam: Automated exposure control, adjustment of the mA and/or kV according to patient size, and use of iterative reconstruction. DLP 826.48 COMPARISON: Comparison is made with 05/16/2024 FINDINGS: Aorta and Great Vessels: Ascending Aorta: Normal in caliber, no aneurysm, dissection, or significant atherosclerosis. Aortic Arch: Normal in caliber, no aneurysm, dissection, or significant atherosclerosis. Descending Aorta: Normal in caliber, no aneurysm, dissection, or significant atherosclerosis. Pulmonary Arteries: The main pulmonary artery and its branches are patent measures about 32mm. No evidence of pulmonary embolism or significant stenosis. Heart: Cardiac Chambers: left ventricle is mildly dilated. Pericardium: No pericardial effusion or thickening. Lungs and Pleura: Mild regression of the previously seen right mild pleural effusion, basal atelectatic changes and ben bronchial thickening with no signs of active inflammatory changes. Minimally increased left pleural effusion, with stable basal atelectatic changes and ben bronchial thickening. Mediastinum: No mediastinal mass or abnormal lymphadenopathy. Normal appearance of the trachea and central bronchi. Hilar Structures: Hilar structures are normal without enlargement. Chest Wall: No mass lesions or abnormalities in the chest wall. Vascular Structures: Superior Vena Cava: Patent without evidence of stenosis or thrombus. Inferior Vena Cava: Patent without evidence of stenosis or thrombus. Bones and Soft Tissues: No fractures, lytic, or blastic lesions of the visualized bony structures. Soft tissues are unremarkable. Thoracic spondylosis with multilevel Schmorl's nodes. IMPRESSION: 1. No signs of pulmonary thromboembolism. 2. No active inflammatory changes. 3. Prominent pulmonary artery. 4. Right mild pleural effusion, basal atelectatic changes and ben bronchial thickening. 5. Minimally increased left pleural effusion, with stable basal atelectatic changes and ben bronchial thickening. Electronically signed by Daniel Duenas 08-26-2024 03:52 AM
--- NOTE | 2024-08-26 05:27 | History & Physical Report ---
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 Patient has history of hypotension and takes midodrine as needed. Patient blood pressure was soft in the ER and received fluid bolus and blood pressure is okay now. Complains of abdominal pain. Suprapubic cath site is leaking and patient states sometimes it leaks. Before coming to the hospital says he had a fever. Denies any chest pain. No shortness of breath . No cough. No runny nose or sore throat. No headache. No earache. Appetite is okay. Moving bowels okay. Currently hemodynamics are okay. Patient has history of recurrent admissions for UTI and pneumonia. Patient was admitted in 07/01 in [facility] for complicated UTI and treated with Cipro. His was also treated for abdominal pain with as needed nortriptyline and PPI. Patient's heart rate and blood pressure usually fluctuates widely. Abdominal pain Will follow CAT scan UA is positive for UTI Could be colonization from his suprapubic catheter History of Pseudomonas and Klebsiella ER started on Vanco and Zosyn which will be continued ID consult for further recommendations Hypotension Received fluids in the ER IV normal saline Home midodrine as needed Will monitor Mild bilateral pleural effusion And peribronchial thickening Patient denies any cough Continue antibiotics as above Anemia Hemoglobin 9.3 Hemoglobin was 11 in May Continue iron supplements Follow stool for Hemoccult History of labile blood pressure Labile heart rates Autonomic dysreflexia Close monitor Continue midodrine as needed History of asymptomatic bradycardia Supposed to follow for ZIO monitor Neurogenic bladder with chronic indwelling suprapubic catheter History of nephrolithiasis Follow cultures Has some leakage from suprapubic catheter site Will consult urology Chronic sacral decubitus ulcer stage IV Chronic osteomyelitis Wound care COPD Tobacco abuse Will continue Home inhalers Substance use disorder to avoid narcotics History of PE Eliquis History of HCV Seems s/p treatment Mood disorder On nortriptyline Chronic pain Gabapentin and baclofen as needed 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 Patient has history of hypotension and takes midodrine as needed. Patient blood pressure was soft in the ER and received fluid bolus and blood pressure is okay now. Complains of abdominal pain. Suprapubic cath site is leaking and patient states sometimes it leaks. Before coming to the hospital says he had a fever. Denies any chest pain. No shortness of breath . No cough. No runny nose or sore throat. No headache. No earache. Appetite is okay. Moving bowels okay. Currently hemodynamics are okay. Patient has history of recurrent admissions for UTI and pneumonia. Patient was admitted in 07/01 in [facility] for complicated UTI and treated with Cipro. His was also treated for abdominal pain with as needed nortriptyline and PPI. Patient's heart rate and blood pressure usually fluctuates widely. Past medical history. As mentioned above Past surgical history. Bladder aspiration by suprapubic cath. Cystoscopy. Drainage of the right lower leg abscess. Incision of right first metatarsal. Neck and lumbar fusion. Bilateral arm surgery. Right ankle surgery. Laparoscopic appendectomy. Cholecystectomy. Social history. Smokes 1 pack a day for 31 years. Vaping some days. Alcohol rarely currently. Amphetamines, marijuana and cocaine use. Social history. Mother had lung cancer. Father had heart attack. Allergies Allergy/AdvReac Type Severity Reaction Status Date / Time Opioids - Morphine Analogues AdvReac severe Verified 05/17/24 15:46 bradycardia Home Medications Medication Instructions Recorded Confirmed Type albuterol sulfate 2.5 mg/3 mL 2.5 mg inhalation Q4H PRN 08/26/24 08/26/24 History (0.083 %) solution for nebulization Shortness Of Breath Or Wheezing apixaban 5 mg tablet (Eliquis) 5 mg PO BID 08/26/24 08/26/24 History ascorbic acid (vitamin C) 500 mg 500 mg PO DAILY 08/26/24 08/26/24 History tablet (Vitamin C) baclofen 10 mg tablet 20 mg PO TID PRN muscle spasms 08/26/24 08/26/24 History bisacodyl 10 mg rectal suppository 10 mg IA BID 08/26/24 08/26/24 History budesonide-formoterol HFA 160 2 puff inhalation BID 08/26/24 08/26/24 History mcg-4.5 mcg/actuation aerosol inhaler docusate sodium 100 mg capsule 100 mg PO BID PRN Constipation 08/26/24 08/26/24 History ferrous sulfate 325 mg (65 mg 325 mg PO DAILY 08/26/24 08/26/24 History iron) tablet,delayed release hydroxyzine HCl 25 mg tablet 25 mg PO DAILY PRN Anxiety 08/26/24 08/26/24 History lactulose 10 gram/15 mL oral 20 g PO TID PRN Constipation 08/26/24 08/26/24 History solution lidocaine 5 % topical patch 1 patch topical DAILY PRN Pain 08/26/24 08/26/24 History midodrine 10 mg tablet 10 mg PO TID PRN Hypotension 08/26/24 08/26/24 History multivitamin 1 tab PO DAILY 08/26/24 08/26/24 History nortriptyline 25 mg capsule 25 mg PO HS 08/26/24 08/26/24 History oxybutynin chloride 10 mg 10 mg PO DAILY 08/26/24 08/26/24 History tablet,extended release 24 hr pantoprazole 40 mg tablet,delayed 40 mg PO DAILY 08/26/24 08/26/24 History release sennosides 8.6 mg-docusate sodium 2 tab PO HS 08/26/24 08/26/24 History 50 mg tablet (Senexon-S) tiotropium bromide 2.5 2 puff inhalation DAILY 08/26/24 08/26/24 History mcg/actuation mist for inhalation (Spiriva Respimat) Past Med/Surg History Problem List (Updated 08/26/24 @ 06:27 by Hope Liu) Acute UTI (Acute) Sepsis (Acute) Constipation (Acute) Gastritis (Acute) Elevated hemidiaphragm Abnormal chest CT Pneumonia (Acute) Cough (Acute) Left sided abdominal pain (Acute) Quadriplegia (Acute) Hypotension (Acute) Abdominal pain Autonomic dysreflexia Constipation Hydronephrosis (Acute) Acute urinary retention (Acute) Leukocytosis (Acute) Complication, blocked suprapubic catheter Hypokalemia (Acute) Hypomagnesemia (Acute) Anemia (Acute) Quadriplegia (Acute) Sacral decubitus ulcer (Acute) Acute UTI (Acute) Hypotension (Acute) Encephalopathy Pneumonia (Acute) Complicated urinary tract infection (Acute Unknown) Change or removal of nonsurgical wound dressing Acute hypoxemic respiratory failure (Acute) Chest pain (Acute) Severe sepsis (Acute) MRSA carrier Pneumonia (Acute) Hypoxic respiratory failure (Acute) 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 Leg wound, right Leg wound, left History of pulmonary embolism Hypoxia (Acute) RSV (respiratory syncytial virus infection) Chronic pain (Acute) Suprapubic catheter (Acute) Complicated UTI (urinary tract infection) (Acute) Sacral decubitus ulcer, stage IV (Acute) Chronic osteomyelitis of sacrum Medical History Abdominal pain Aspiration pneumonitis Pneumonia Paraplegia Surgical History No pertinent past surgical history Social History Smoking Status: Former smoker Tobacco Type: Cigarettes Cigarettes Per Day: 50-60; Second Hand Exposure: Yes; Do You Dip or Chew Tobacco: Yes; Hx Alcohol Use: No Hx Substance Use: No Preferred Language: Persian Communication Ability: Effective Communication Ability Comment: difficulty writing Bag Grader Required: No Beliefs That Will Affect Care: None Current Living Situation: Alone 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 28/02 Feels Safe at Home: Yes Assistive Devices: Hospital Bed, Mechanical Lift and Scooter/Electric Scooter Review of Systems Review of Systems: All systems reviewed & are unremarkable except as noted in HPI & below Physical Exam Physical Exam: General- Not in distress Head- atraumatic Eyes- PERRL. ENT- oropharynx dry Neck- supple, no JVD. Lungs- clear to auscultation no wheezing or crackles Heart- regular rhythm; no murmur, no gallop. Abdomen- normal bowel sounds, soft, suprapubic cat site leaking Extremities- no pretibial edema, no erythema seen Neuro- alert, oriented ; PERRL, no facial palsy; no dysarthria; can move upper extremities but cannot use fingers. Cannot move lower extremity Results & Data Results & Data Vital Signs (Past 12 Hours) Vital Signs Temp Pulse Resp BP BP Pulse Ox O2 Del Method 08/26/24 04:10 67 18 114/82 95 08/26/24 04:00 66 18 104/75 96 08/26/24 03:45 67 16 104/75 94 08/26/24 03:30 64 18 112/67 96 08/26/24 03:15 70 22 115/85 92 08/26/24 03:00 68 16 106/79 92 08/26/24 02:45 76 18 89/68 L 94 08/26/24 02:30 78 20 97/61 L 93 08/26/24 02:15 87 18 94/59 L 93 08/26/24 02:00 82 24 119/82 95 08/26/24 01:45 82 22 114/74 94 08/26/24 01:30 70 20 100/63 97 08/26/24 01:15 119/82 08/26/24 01:13 83 08/26/24 01:08 36.8 C 86 18 80/45 L 97 Room Air Diagnostic Findings Laboratory Results WBC 7.75 K/ul (4.8-10.8) 08/26/24 01:12 RBC 4.03 M/uL (4.70-6.10) L 08/26/24 01:12 Hgb 9.3 g/dl (14.0-18.0) L 08/26/24 01:12 POC Hgb 9.5 g/dl (14.0-18.0) L 08/26/24 01:27 Hct 31.4 % (42.0-52.0) L 08/26/24 01:12 POC Hct 28 % (42-52) L 08/26/24 01:27 MCV 77.9 fL (80.0-100.0) L 08/26/24 01:12 MCH 23.1 pg (25.0-34.0) L 08/26/24 01:12 MCHC 29.6 g/dL (32.0-36.0) L 08/26/24 01:12 RDW Std Deviation 45.4 fL (36.4-46.3) 08/26/24 01:12 RDW Coeff of [place] 15.9 % (11.5-14.5) H 08/26/24 01:12 Plt Count 372 K/uL (130-400) 08/26/24 01:12 MPV 9.4 fL (9.4-12.4) 08/26/24 01:12 Immature Gran % (Auto) 0.1 % 08/26/24 01:12 Neut % (Auto) 63.1 % 08/26/24 01:12 Lymph % (Auto) 24.1 % 08/26/24 01:12 [place] % (Auto) 8.4 % 08/26/24 01:12 Eos % (Auto) 3.4 % 08/26/24 01:12 Baso % (Auto) 0.9 % 08/26/24 01:12 Neut # (Auto) 4.89 K/uL (1.40-6.50) 08/26/24 01:12 Lymph # (Auto) 1.87 K/uL (1.20-3.40) 08/26/24 01:12 [place] # (Auto) 0.65 K/uL (0.11-0.59) H 08/26/24 01:12 Eos # (Auto) 0.26 K/uL (0.00-0.50) 08/26/24 01:12 Baso # (Auto) 0.07 K/uL (0.00-0.20) 08/26/24 01:12 Immature Gran # (Auto) 0.01 K/uL (0.01-0.20) 08/26/24 01:12 PT 10.2 Seconds (9.0-12.0) 08/26/24 01:13 INR 0.9 (0.9-1.1) 08/26/24 01:13 POC Sodium 139 mmol/L (135-144) 08/26/24 01:27 Sodium 137 mmol/L (136-145) 08/26/24 01:18 POC Potassium 3.9 mmol/L (3.3-5.0) 08/26/24 01:27 Potassium 3.9 mmol/L (3.5-5.1) 08/26/24 01:18 POC Chloride 104 mmol/L (101-112) 08/26/24 01:27 Chloride 106 mmol/L (98-107) 08/26/24 01:18 Carbon Dioxide 28 mmol/L (21-32) 08/26/24 01:18 POC Total CO2 25 mmol/L (24-31) 08/26/24 01:27 Anion Gap 3 (3-11) 08/26/24 01:18 POC Anion Gap 15.0 mmol/L (16-25) L 08/26/24 01:27 POC BUN 5 mg/dl (7-18) L 08/26/24 01:27 BUN 7 mg/dl (6-23) 08/26/24 01:18 Creatinine 0.66 mg/dl (0.6-1.4) 08/26/24 01:18 POC Creatinine 0.8 mg/dl (0.6-1.3) 08/26/24 01:27 Est Cr Clr Drug Dosing 156.5 ml/min 08/26/24 01:18 eGFR 116.42 08/26/24 01:18 BUN/Creatinine Ratio 10.6 (10-20) 08/26/24 01:18 Glucose 105 mg/dl (70-99(Fasting)) H 08/26/24 01:18 POC Glucose (other) 104 mg/dl (70-99) H 08/26/24 01:27 Lactate 1.2 mmol/L (0.4-2.0) 08/26/24 01:21 Calcium 8.5 mg/dl (8.6-10.3) L 08/26/24 01:18 POC Ioniz Calcium Maddi 1.19 mmol/l (1.12-1.32) 08/26/24 01:27 Magnesium 1.9 mg/dl (1.7-2.4) 08/26/24 01:18 Total Bilirubin 0.3 mg/dl (0.2-1.0) 08/26/24 01:18 Direct Bilirubin 0.1 mg/dl (0-0.2) 08/26/24 01:18 AST 11 U/L (13-39) L 08/26/24 01:18 ALT 5 U/L (7-52) L 08/26/24 01:18 Alkaline Phosphatase 123 U/L (34-104) H 08/26/24 01:18 Troponin I High Sens 4.5 pg/ml (0-20) 08/26/24 01:18 Total Protein 6.1 gm/dl (6.0-8.3) 08/26/24 01:18 Albumin 3.2 gm/dl (3.4-5.0) L 08/26/24 01:18 Procalcitonin 0.03 ng/ml (0-0.5) 08/26/24 01:13 Urine Color Yellow 08/26/24 01:55 Urine Appearance Cloudy (Clear) A 08/26/24 01:55 Urine pH 8.0 (4.5-7.5) H 08/26/24 01:55 Ur Specific [place] 1.031 (1.000-1.030) H 08/26/24 01:55 Urine Protein Negative (Negative) 08/26/24 01:55 Urine Glucose (UA) Negative (Negative) 08/26/24 01:55 Urine Ketones Negative (Negative) 08/26/24 01:55 Urine Blood 2+ (Negative) H 08/26/24 01:55 Urine Nitrite Positive (Negative) A 08/26/24 01:55 Urine Bilirubin Negative (Negative) 08/26/24 01:55 Urine Urobilinogen Negative (Negative) 08/26/24 01:55 Ur Leukocyte Esterase 3+ (Negative) H 08/26/24 01:55 Urine WBC (Auto) >50 /hpf (0-5) H 08/26/24 01:55 Urine RBC (Auto) >20 /hpf (0-2) H 08/26/24 01:55 U Hyaline Cast (Auto) 3-5 /lpf (0-2) H 08/26/24 01:55 U Epithel Cells (Auto) 0-2 /hpf (0-2) 08/26/24 01:55 Urine Bacteria (Auto) 4+ (None Seen) H 08/26/24 01:55 Urine Yeast Present (None Prsent) A 08/26/24 01:55 Adenovirus (PCR) Not Detected (NotDetected) 08/26/24 01:38 B. pertussis DNA (PCR) Not Detected (NotDetected) 08/26/24 01:38 B.parapertussis DNA PCR Not Detected (NotDetected) 08/26/24 01:38 C. pneumoniae DNA (PCR) Not Detected (NotDetected) 08/26/24 01:38 Coronavirus OC43 (PCR) Not Detected (NotDetected) 08/26/24 01:38 Coronavirus HKU1 (PCR) Not Detected (NotDetected) 08/26/24 01:38 Coronavirus 229E (PCR) Not Detected (NotDetected) 08/26/24 01:38 SARS-CoV-2 (PCR) Not Detected (NotDetected) 08/26/24 01:38 Coronavirus NL63 (PCR) Not Detected (NotDetected) 08/26/24 01:38 Human Metapneumovir PCR Not Detected (NotDetected) 08/26/24 01:38 Influenza Type A (PCR) Not Detected (NotDetected) 08/26/24 01:38 Influenza Type B (PCR) Not Detected (NotDetected) 08/26/24 01:38 M. pneumoniae (PCR) Not Detected (NotDetected) 08/26/24 01:38 Parainfluenza 1 (PCR) Not Detected (NotDetected) 08/26/24 01:38 Parainfluenza 2 (PCR) Not Detected (NotDetected) 08/26/24 01:38 Parainfluenza 3 (PCR) Not Detected (NotDetected) 08/26/24 01:38 Parainfluenza 4 (PCR) Not Detected (NotDetected) 08/26/24 01:38 RSV (PCR) Not Detected (NotDetected) 08/26/24 01:38 Entero/Rhino (PCR) Not Detected (NotDetected) 08/26/24 01:38 Impressions Chest X-Ray 08/26/24 01:18 EXAM: XR chest 1V portable CLINICAL HISTORY: SEPSIS SDM TECHNIQUE: X-ray images of the chest were obtained in AP projections. COMPARISON: The associated CT study dated 08/26/2024 was reviewed. FINDINGS: Pulmonary Parenchyma: No evidence of consolidation, collapse, or focal opacities. No evidence of pleural effusion or pleural thickening. Right lower lung zone atelectatic plates with related ground glass shadows. Heart and Mediastinum: Increased cardiac size. Bilateral hilar prominent broncho vascular markings. Bony Thorax: Internal fixation of the lower cervical vertebra. IMPRESSION: 1. Cardiomegaly. 2. Right lower lung zone atelectatic plates with related ground glass shadows. 3. No acute cardiopulmonary abnormalities identified. Electronically signed by Daniel Duenas 08-26-2024 03:06 AM Chest CTA 08/26/24 01:24 EXAM: CT angio chest PE protocol CLINICAL HISTORY: r/o PE, UTI TECHNIQUE: CT angiography of the chest was performed with and without intravenous contrast with the following protocol: axial images with, reconstructed coronal and sagittal images. Non-contrast images were initially acquired, followed by contrast-enhanced images in arterial and venous phases. Intravenous contrast 89 ml opti 320 was administered using automated injection techniques. Bolus tracking was employed to optimize arterial phase imaging. One of these 3D techniques was utilized: Maximum Intensity Pixel (MIP), 3D Reconstructed Images, Volume Rendered Images, Surface Shaded Rendering. One of the following dose reduction techniques was utilized for this exam: Automated exposure control, adjustment of the mA and/or kV according to patient size, and use of iterative reconstruction. DLP 826.48 COMPARISON: Comparison is made with 05/16/2024 FINDINGS: Aorta and Great Vessels: Ascending Aorta: Normal in caliber, no aneurysm, dissection, or significant atherosclerosis. Aortic Arch: Normal in caliber, no aneurysm, dissection, or significant atherosclerosis. Descending Aorta: Normal in caliber, no aneurysm, dissection, or significant atherosclerosis. Pulmonary Arteries: The main pulmonary artery and its branches are patent measures about 32mm. No evidence of pulmonary embolism or significant stenosis. Heart: Cardiac Chambers: left ventricle is mildly dilated. Pericardium: No pericardial effusion or thickening. Lungs and Pleura: Mild regression of the previously seen right mild pleural effusion, basal atelectatic changes and ben bronchial thickening with no signs of active inflammatory changes. Minimally increased left pleural effusion, with stable basal atelectatic changes and ben bronchial thickening. Mediastinum: No mediastinal mass or abnormal lymphadenopathy. Normal appearance of the trachea and central bronchi. Hilar Structures: Hilar structures are normal without enlargement. Chest Wall: No mass lesions or abnormalities in the chest wall. Vascular Structures: Superior Vena Cava: Patent without evidence of stenosis or thrombus. Inferior Vena Cava: Patent without evidence of stenosis or thrombus. Bones and Soft Tissues: No fractures, lytic, or blastic lesions of the visualized bony structures. Soft tissues are unremarkable. Thoracic spondylosis with multilevel Schmorl's nodes. IMPRESSION: 1. No signs of pulmonary thromboembolism. 2. No active inflammatory changes. 3. Prominent pulmonary artery. 4. Right mild pleural effusion, basal atelectatic changes and ben bronchial thickening. 5. Minimally increased left pleural effusion, with stable basal atelectatic changes and ben bronchial thickening. Electronically signed by Daniel Duenas 08-26-2024 03:52 AM ECG Additional Comments: ECG. Normal sinus rhythm at a rate of 78. Possible left atrial enlargement. No significant change was found. QTc 424. Code Status & VTE Plan VTE Prophylaxis Plan VTE Prophylaxis will be ordered: Yes
--- NOTE | 2024-08-26 05:46 | CT Scan Report ---
EXAM: CT abd pelvis wo con CLINICAL HISTORY: Pt recently dc from [facility] after a UTI. Pt has a chronic hartman. According to pt, he never received any IV abx while admitted. Pt stated he was prescribed abx on dc but did not take them at home. Pt c/o of 9/10 abdominal pain. Pt took tylenol at home for a fever. On arrival, pt is afebile. PW TECHNIQUE: Non-contrast CT of the abdomen and pelvis was performed, with the following protocol: axial images, and reconstructed coronal and sagittal images. One of the following dose reduction techniques was utilized for this exam: Automated exposure control, adjustment of the mA and/or kV according to patient size, and use of iterative reconstruction. 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 FINDINGS: Visualized lower chest: Unchanged minimal bilateral pleural effusion. Passive atelectatic changes. Abdomen: Liver: The liver measures about 20 cm in maximum craniocaudal dimension. Normal inshape, and density. No focal lesions, cysts, or masses were identified. Gallbladder and Biliary System: Evidence of cholecystectomy. Unremarkable biliary system. Pancreas: Mild fatty changes. Pancreatic head, body, and tail are visualized and appear normal in size and density. No pancreatic masses or calcifications were noted. Spleen: Spleen measured about 14 cm in maximum length. Normal in shape, and density. No splenic lesions or masses were identified. Appendix: Could not be identified. No signs of inflammatory changes in right iliac region. Kidneys and Adrenal Glands: Both kidneys are normal in size, shape, and position. Cortical thickness is within normal limits. No renal calculi or hydronephrosis. Adrenal glands are unremarkable. Abdominal Aorta and Vessels: The abdominal aorta and major branches are patent without evidence of an aneurysm or significant atherosclerosis. Pelvis: Urinary Bladder: Suprapubic Hartman's catheter is noted. The tip is seen inside the urinary bladder. The prostate is unremarkable. Peritoneal and Retroperitoneal Structures: No free fluid or abnormal fluid collections were identified within the abdomen or pelvis. No lymphadenopathy was noted. Bowel: Mild colonic fecal loading. The visualized bowel loops are normal in caliber and appearance. No evidence of bowel obstruction or wall thickening. Bones and Soft Tissues: Subcutaneous defect seen in the sacral area. Degenerative changes of the coccyx. Diffuse subcutaneous soft tissue edema seen in both gluteal regions, more on the right side. IMPRESSION: 1. Subcutaneous defect seen in the sacral area. Degenerative changes of the coccyx. Findings likely due to chronic sacral ulcer. Need clinical correlation. 2. Diffuse subcutaneous soft tissue edema seen in both gluteal regions. 3. Mild colonic fecal loading. This could be due to constipation. Please correlate clinically. 4. Mild hepatosplenomegaly. 5. Evidence of cholecystectomy. Electronically signed by Daniel Duenas 08-26-2024 05:46 AM
[2024-08-26] MEDS ORDERED: ACETAMINOPHEN 1,000 MG/100 ML VIAL IV PRN (06:40)
[2024-08-26] MEDS ORDERED: DOCUSATE SODIUM 100 MG CAP PO PRN (06:40)
[2024-08-26] MEDS ORDERED: hydrOXYzine HCl 25 MG TAB PO PRN (06:40)
[2024-08-26] MEDS ORDERED: NITROGLYCERIN SL 0.4 MG/TAB TAB SL PRN (06:40)
[2024-08-26] MEDS ORDERED: POLYETHYLENE (MIRALAX) 17 GM PACK PO PRN (06:40)
[2024-08-26] MEDS ORDERED: ALBUTEROL 0.083% NEBU SOLN 3 ML VIAL INH PRN (06:40)
[2024-08-26] MEDS ORDERED: MIDODRINE HCL 10 MG TAB PO PRN (06:40)
--- NOTE | 2024-08-26 07:29 | Electrocardiogram Report ---
Test Reason : Blood Pressure : */* mmHG Vent. Rate : 78 BPM Atrial Rate : 78 BPM P-R Int : 178 ms QRS Dur : 78 ms QT Int : 372 ms P-R-T Axes : 22 10 24 degrees QTcB Int : 424 ms Normal sinus rhythm Possible Left atrial enlargement Borderline ECG When compared with ECG of 22-Aug-2024 15:34, No significant change was found Confirmed by Faraz Charles ([id number]) on 08/26/2024 7:28:40 AM Referred By: REFERRED SELF Confirmed By: Faraz Charles
[2024-08-26] MEDS ORDERED: LACTULOSE SYRUP 20 GM/30 ML UDC PO PRN (07:35)
[2024-08-26] MEDS: PIPERACILLIN/TAZOBACTAM 4.5 GM/100 ML BAG IV SCH (08:31)
[2024-08-26] MEDS ORDERED: LIDOCAINE 5% 1 PATCH TD PRN (09:00)
[2024-08-26] MEDS: ACETAMINOPHEN 325 MG TAB PO PRN (09:18)
[2024-08-26] MEDS: BACLOFEN 20 MG TAB PO PRN (09:19)
[2024-08-26] MEDS: FERROUS SULFATE 325 MG TAB PO SCH (09:20)
[2024-08-26] MEDS: PANTOprazole 40 MG TAB PO SCH (09:20)
[2024-08-26] MEDS: APIXABAN 5 MG TABLET PO SCH (09:20)
[2024-08-26] MEDS: OXYBUTYNIN CHLORIDE XL 5 MG TABCR PO SCH (09:20)
[2024-08-26] MEDS: MULTIVITAMIN TAB PO SCH (09:20)
[2024-08-26] MEDS: UMECLIDINIUM BROMIDE 62.5MCG/BLISTER 7 PUFFS/INHALER INH SCH (10:28)
[2024-08-26] MEDS: ASCORBIC ACID 500 MG TAB PO SCH (10:28)
[2024-08-26] MEDS: bisacodyL 10 MG SUPP PR SCH (10:28)
[2024-08-26] MEDS: FLUTICASONE/VILANTEROL 100/25MCG 14 PUFFS/INHALER INH SCH (10:29)
--- NOTE | 2024-08-26 11:03 | Urology Consultation ---
Date of Consultation August 26, 2024 Assessment & Plan (1) Acute UTI: (2) Suprapubic catheter: Plan Urinalysis suspicious for infection, although he will almost certainly have bacteria present due to chronic indwelling catheter. Catheter seems to be draining well. Agree with broad-spectrum antibiotics, narrowing coverage as cultures become available. Would defer to ID for additional recommendations. Could consider suprapubic catheter exchange, although may be better done after he has been on antibiotics for 24 hours. Ideally, he could get on the schedule of doing this as an outpatient with his primary urologist. I do not appreciate any obstruction of the upper tracts and do not think he needs acute urologic intervention at this time. 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 Workup demonstrated normal WBC (7.75), hemoglobin 9.3. Creatinine was 0.66. Urinalysis demonstrated positive nitrites, 3+ leukocyte esterase, 4+ bacteria raising concern for urinary tract infection versus colonization of his chronic catheter. He had a CT scan of the abdomen pelvis. I independently reviewed these images from 08/26/2024. Both kidneys are in normal position and there is excretion of contrast bilaterally. I do not appreciate any obvious stones in either side. No significant hydronephrosis bilaterally. Bladder is decompressed with suprapubic tube in place. He reported some leaking around his suprapubic catheter and urology was consulted for further evaluation. He reports that this sometimes. His suprapubic catheter has been draining well although is probably due for an exchange. Catheter is managed by Dr. Howard of [facility]. Allergies Allergy/AdvReac Type Severity Reaction Status Date / Time Opioids - Morphine Analogues AdvReac severe Verified 05/17/24 15:46 bradycardia Home Medications Medication Instructions Recorded Confirmed Type albuterol sulfate 2.5 mg/3 mL 2.5 mg inhalation Q4H PRN 08/26/24 08/26/24 History (0.083 %) solution for nebulization Shortness Of Breath Or Wheezing apixaban 5 mg tablet (Eliquis) 5 mg PO BID 08/26/24 08/26/24 History ascorbic acid (vitamin C) 500 mg 500 mg PO DAILY 08/26/24 08/26/24 History tablet (Vitamin C) baclofen 10 mg tablet 20 mg PO TID PRN muscle spasms 08/26/24 08/26/24 History bisacodyl 10 mg rectal suppository 10 mg MS BID 08/26/24 08/26/24 History budesonide-formoterol HFA 160 2 puff inhalation BID 08/26/24 08/26/24 History mcg-4.5 mcg/actuation aerosol inhaler docusate sodium 100 mg capsule 100 mg PO BID PRN Constipation 08/26/24 08/26/24 History ferrous sulfate 325 mg (65 mg 325 mg PO DAILY 08/26/24 08/26/24 History iron) tablet,delayed release hydroxyzine HCl 25 mg tablet 25 mg PO DAILY PRN Anxiety 08/26/24 08/26/24 History lactulose 10 gram/15 mL oral 20 g PO TID PRN Constipation 08/26/24 08/26/24 History solution lidocaine 5 % topical patch 1 patch topical DAILY PRN Pain 08/26/24 08/26/24 History midodrine 10 mg tablet 10 mg PO TID PRN Hypotension 08/26/24 08/26/24 History multivitamin 1 tab PO DAILY 08/26/24 08/26/24 History nortriptyline 25 mg capsule 25 mg PO HS 08/26/24 08/26/24 History oxybutynin chloride 10 mg 10 mg PO DAILY 08/26/24 08/26/24 History tablet,extended release 24 hr pantoprazole 40 mg tablet,delayed 40 mg PO DAILY 08/26/24 08/26/24 History release sennosides 8.6 mg-docusate sodium 2 tab PO HS 08/26/24 08/26/24 History 50 mg tablet (Senexon-S) tiotropium bromide 2.5 2 puff inhalation DAILY 08/26/24 08/26/24 History mcg/actuation mist for inhalation (Spiriva Respimat) Patient History Medical History Abdominal pain Aspiration pneumonitis Pneumonia Paraplegia Surgical History No pertinent past surgical history Social History Smoking Status: Former smoker Tobacco Type: Cigarettes Cigarettes Per Day: 50-60; Second Hand Exposure: Yes; Do You Dip or Chew Tobacco: Yes; Hx Alcohol Use: Yes Alcohol type: hard liquor Hx Substance Use: No Preferred Language: Lithuanian Communication Ability: Effective Communication Ability Comment: difficulty writing Occupational Therapist'S Assistant Required: No Beliefs That Will Affect Care: None Current Living Situation: Alone 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 Physical Exam Physical Exam: Resting comfortably in bed, NAD Constitutional: well developed and well nourished; no acute distress Eyes: + anicteric sclerae; pupils not irregula r Respiratory: normal respiratory effort; no respiratory distress, does not use accessory muscles and no cough Cardiovascular: well perfused Gastrointestinal (Abdomen): Suprapubic catheter in place draining yellow urine, mild erythema and fibrinous material around the insertion site Musculoskeletal: Extremities: + limited ROM of extremities Skin: normal turgor; no rashes Neurologic: awake Psychiatric: Orientation: alert and oriented x 3 Genitourinary: Suprapubic catheter as above Results & Data Vital Signs (Past 12 Hours) Vital Signs Temp Pulse Pulse Resp BP BP Pulse Ox 08/26/24 09:51 68 17 92 08/26/24 09:33 68 16 92 08/26/24 09:30 136/98 08/26/24 09:30 136/98 08/26/24 09:16 129/93 08/26/24 09:16 129/93 08/26/24 09:03 64 13 95 08/26/24 09:00 113/70 08/26/24 09:00 113/70 08/26/24 09:00 113/70 08/26/24 09:00 67 16 93 08/26/24 08:57 65 16 93 08/26/24 08:45 127/82 08/26/24 08:45 127/82 08/26/24 08:45 64 16 95 08/26/24 08:30 111/74 08/26/24 08:30 111/74 08/26/24 08:14 16 08/26/24 08:00 67 14 08/26/24 07:54 68 15 93 08/26/24 07:45 95/73 L 08/26/24 07:45 95/73 L 08/26/24 07:45 95/73 L 08/26/24 07:36 67 17 92 08/26/24 07:30 67 16 93 08/26/24 07:30 91/66 L 08/26/24 07:30 91/66 L 08/26/24 07:24 68 15 93 08/26/24 07:15 92/55 L 08/26/24 07:09 70 18 103/68 94 08/26/24 07:07 69 08/26/24 07:03 68 16 94 08/26/24 07:00 103/68 08/26/24 07:00 103/68 08/26/24 06:57 67 16 95 08/26/24 06:54 69 16 95 08/26/24 06:45 74 21 96 08/26/24 06:45 117/82 08/26/24 06:45 117/82 08/26/24 06:45 117/82 08/26/24 06:45 117/82 08/26/24 06:30 74 18 110/64 94 08/26/24 05:30 68 18 94/59 L 94 08/26/24 05:23 68 08/26/24 04:10 67 18 114/82 95 08/26/24 04:00 66 18 104/75 96 08/26/24 03:45 67 16 104/75 94 08/26/24 03:30 64 18 112/67 96 08/26/24 03:15 70 22 115/85 92 08/26/24 03:00 68 16 106/79 92 08/26/24 02:45 76 18 89/68 L 94 08/26/24 02:30 78 20 97/61 L 93 08/26/24 02:15 87 18 94/59 L 93 08/26/24 02:00 82 24 119/82 95 08/26/24 01:45 82 22 114/74 94 08/26/24 01:30 70 20 100/63 97 08/26/24 01:15 119/82 08/26/24 01:13 83 08/26/24 01:08 36.8 C 86 18 80/45 L 97 O2 Del Method 08/26/24 09:51 08/26/24 09:33 08/26/24 09:30 08/26/24 09:30 08/26/24 09:16 08/26/24 09:16 08/26/24 09:03 08/26/24 09:00 08/26/24 09:00 08/26/24 09:00 08/26/24 09:00 08/26/24 08:57 08/26/24 08:45 08/26/24 08:45 08/26/24 08:45 08/26/24 08:30 08/26/24 08:30 08/26/24 08:14 08/26/24 08:00 08/26/24 07:54 08/26/24 07:45 08/26/24 07:45 08/26/24 07:45 08/26/24 07:36 08/26/24 07:30 08/26/24 07:30 08/26/24 07:30 08/26/24 07:24 08/26/24 07:15 08/26/24 07:09 Room Air 08/26/24 07:07 08/26/24 07:03 08/26/24 07:00 08/26/24 07:00 08/26/24 06:57 08/26/24 06:54 08/26/24 06:45 08/26/24 06:45 08/26/24 06:45 08/26/24 06:45 08/26/24 06:45 08/26/24 06:30 08/26/24 05:30 08/26/24 05:23 08/26/24 04:10 08/26/24 04:00 08/26/24 03:45 08/26/24 03:30 08/26/24 03:15 08/26/24 03:00 08/26/24 02:45 08/26/24 02:30 08/26/24 02:15 08/26/24 02:00 08/26/24 01:45 08/26/24 01:30 08/26/24 01:15 08/26/24 01:13 08/26/24 01:08 Room Air PG Care Time/CCT Total # of Minutes Spent Total Time Spent with Patient: Total time spent is greater than 50% in coordination of care (as documented) at patient's floor/unit and/or counseling patient: Coding Level of Care Code 97520 IN/OBS CONSULT LVL 4,60M Diagnoses Acute UTI N39.0 Suprapubic catheter Z93.59
[2024-08-26] MEDS: VANCOMYCIN HCL 1,750 MG in SODIUM CHLORIDE 0.9% 500 ML IV SCH (11:25)
--- NOTE | 2024-08-26 12:45 | Pharmacy Report ---
Pharmacy PK ABX Note - Date of Service August 26, 2024 - Assessment and Plan Assessment 48 year old M receiving vancomycin/zosyn for treatment of possible UTI. Pertinent microbiologic data includes: UC from suprapubic cath growing Klebsiella pneumoniae + Pseudomonas. Patient with extensive PMH including quadriplegia, hx recurrent UTI, stage IV sacral wound/osteo- hx of MRSA. Normal WBC, reported fever at home. Plan Vancomycin * Loading dose: 2000 mg IV x 1 * Maintenance dose: 1750 mg IV every 12 hours * Regimen is predicted to achieve target AUC/BEATRIZ of 400-600 mg/L.hr * Random level ordered with AM labs 08/27 Pharmacy will continue to follow and will adjust dose/frequency as necessary. Thank you. Pharmacy has transitioned to AUC monitoring for vancomycin. AUC/BEATRIZ is the preferred PK/PD target and is associated with decreased risk of nephrotoxicity compared to traditional trough targets.
--- NOTE | 2024-08-26 13:26 | Hospitalist Progress Note ---
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 Patient has history of hypotension and takes midodrine as needed. Patient blood pressure was soft in the ER and received fluid bolus with improvement in blood pressure.. Complains of abdominal pain. Suprapubic cath site is leaking and patient states sometimes it leaks. Patient was admitted in 07/01 in [facility] for complicated UTI and treated with Cipro. His was also treated for abdominal pain with as needed nortriptyline and PPI. Patient's heart rate and blood pressure usually fluctu ates widely. TIA POA Patient presented with abdominal pain; has history of suprapubic catheter. CT abdomen and pelvis did not show any acute finding; possible constipation. Subcutaneous defect in sacral area due to chronic sacral ulcer. History of Pseudomonas and Klebsiella in Urine Continue on Zosyn and Vanco. Will follow-up on blood culture results. Hypotension Received fluids in the ER IV normal saline Home midodrine as needed Will monitor Anemia Hemoglobin 9.3 Hemoglobin was 11 in May Continue iron supplements History of labile blood pressure Labile heart rates Autonomic dysreflexia Close monitor Continue midodrine as needed History of asymptomatic bradycardia Supposed to follow for ZIO monitor Neurogenic bladder with chronic indwelling suprapubic catheter History of nephrolithiasis Follow cultures Has some leakage from suprapubic catheter site Urology evaluated; recommend to follow outpatient Chronic sacral decubitus ulcer stage IV, POA Chronic osteomyelitis Wound care, no signs of active infection COPD Tobacco abuse Will continue Home inhalers Substance use disorder to avoid narcotics History of PE on Eliquis, continue History of HCV Seems s/p treatment Mood disorder On nortriptyline, continue Chronic pain Gabapentin and baclofen as needed, continue DVT prophylaxis On Eliquis Disposition med/telemetry Full code. Please note the above document was generated using voice recognition software. It may contain grammatical, syntax or spelling errors. Any formal questions or concerns about the content, text or information contained within the body of this dictation should be directly addressed to the provider for clarification Admission and Anticipated Discharge Date Admission Date: August 26, 2024 Subjective Patient seen and examined at bedside. He reports some pain intermittently in his abdomen. Suprapubic Catheter draining clear urine Vital signs are stable Review of Systems Review of Systems: All systems reviewed & are unremarkable except as noted in Subjective Physical Exam Physical Exam: General- Not in distress Head- atraumatic Eyes- PERRL. ENT- oropharynx dry Neck- supple, no JVD. Lungs- clear to auscultation no wheezing or crackles Heart- regular rhythm; no murmur, no gallop. Abdomen- normal bowel sounds, soft, Possible leakage around suprapubic catheter site. No erythema/pus. Sacral wound evaluated; chronic ulcer present with no signs or symptoms of infection. Extremities- no pretibial edema, no erythema seen Neuro- alert, oriented ; PERRL, no facial palsy; no dysarthria; can move upper extremities but cannot use fingers. Cannot move lower extremity Results & Data Results & Data Vital Signs (Past 12 Hours) Vital Signs Pulse Pulse Resp BP BP Pulse Ox O2 Del Method 08/26/24 13:08 69 17 104/75 94 Room Air 08/26/24 11:20 69 16 115/73 94 Room Air 08/26/24 10:45 107/80 08/26/24 10:45 107/80 08/26/24 10:42 70 17 93 08/26/24 10:33 70 13 94 08/26/24 10:30 136/89 08/26/24 10:18 62 15 96 08/26/24 10:15 66 18 93 08/26/24 10:15 108/83 08/26/24 10:15 108/83 08/26/24 10:15 108/83 08/26/24 10:00 125/86 08/26/24 10:00 125/86 08/26/24 10:00 65 18 93 08/26/24 09:51 68 17 92 08/26/24 09:33 68 16 92 08/26/24 09:30 136/98 08/26/24 09:30 136/98 08/26/24 09:16 129/93 08/26/24 09:16 129/93 08/26/24 09:03 64 13 95 08/26/24 09:00 113/70 08/26/24 09:00 113/70 08/26/24 09:00 113/70 08/26/24 09:00 67 16 93 08/26/24 08:57 65 16 93 08/26/24 08:45 127/82 08/26/24 08:45 127/82 08/26/24 08:45 64 16 95 08/26/24 08:30 111/74 08/26/24 08:30 111/74 08/26/24 08:14 16 08/26/24 08:00 67 14 08/26/24 07:54 68 15 93 08/26/24 07:45 95/73 L 08/26/24 07:45 95/73 L 08/26/24 07:45 95/73 L 08/26/24 07:36 67 17 92 08/26/24 07:30 67 16 93 08/26/24 07:30 91/66 L 08/26/24 07:30 91/66 L 08/26/24 07:24 68 15 93 08/26/24 07:15 92/55 L 08/26/24 07:09 70 18 103/68 94 Room Air 08/26/24 07:07 69 08/26/24 07:03 68 16 94 08/26/24 07:00 103/68 08/26/24 07:00 103/68 08/26/24 06:57 67 16 95 08/26/24 06:54 69 16 95 08/26/24 06:45 74 21 96 08/26/24 06:45 117/82 08/26/24 06:45 117/82 08/26/24 06:45 117/82 08/26/24 06:45 117/82 08/26/24 06:30 74 18 110/64 94 08/26/24 05:30 68 18 94/59 L 94 08/26/24 05:23 68 08/26/24 04:10 67 18 114/82 95 08/26/24 04:00 66 18 104/75 96 08/26/24 03:45 67 16 104/75 94 08/26/24 03:30 64 18 112/67 96 08/26/24 03:15 70 22 115/85 92 08/26/24 03:00 68 16 106/79 92 08/26/24 02:45 76 18 89/68 L 94 08/26/24 02:30 78 20 97/61 L 93 08/26/24 02:15 87 18 94/59 L 93 08/26/24 02:00 82 24 119/82 95 08/26/24 01:45 82 22 114/74 94 08/26/24 01:30 70 20 100/63 97
[2024-08-26] MEDS: DOCUSATE SODIUM/SENNA 50/8.6MG TAB PO SCH (21:39)
[2024-08-26] MEDS: NORTRIPTYLINE HCL 25 MG CAP PO SCH (21:39)
[2024-08-26] MEDS: KETOROLAC TROMETHAMINE 15 MG/ML VIAL IV ONE (22:01)
[2024-08-26 22:43] LABS: A calco-baum cmplx NotReported Not Detected (NotDetected); Bact fragilis Not Reported Not Detected (NotDetected); Blood Culture Id Panel See PCR Comment (NotDetected); C auris Not Reported Not Detected (NotDetected); Calbicans Not Reported Not Detected (NotDetected); Candida glabrata Not Reported Not Detected (NotDetected); Candida krusei Not Reported Not Detected (NotDetected); Cneoformans/gatti Not Reported Not Detected (NotDetected); Cparapsilosis Not Reported Not Detected (NotDetected); E cloacae compx Not Reported Not Detected (NotDetected); Efaecalis Not Reported Not Detected (NotDetected); Efaecium Not Reported Not Detected (NotDetected); Enterobacterales Not Reported Not Detected (NotDetected); Escherichia coli Not Reported Not Detected (NotDetected); H influenzae Not Reported Not Detected (NotDetected); K aerogenes Not Reported Not Detected (NotDetected); Koxytoca Not Reported Not Detected (NotDetected); Kpneumoniae grp Not Reported Not Detected (NotDetected); Lmonocyt Not Reported Not Detected (NotDetected); N meningitidis Not Reported Not Detected (NotDetected); P aeruginosa Not Reported Not Detected (NotDetected); Proteus spp Not Reported Not Detected (NotDetected); Salmonella spp Not Reported Not Detected (NotDetected); Staph lugdunensis Not Reported Not Detected (NotDetected); Staph spp. Not Reported DETECTED (NotDetected); Staphaureus Not Reported Not Detected (NotDetected); Staphepi Not Reported DETECTED (NotDetected); Stenmaltophilia Not Reported Not Detected (NotDetected); Strep agal(GrpB) Not Reported Not Detected (NotDetected); Strep pneum Not Reported Not Detected (NotDetected); Strep pyog (GrpA) Not Reported Not Detected (NotDetected); Strep spp Not Reported Not Detected (NotDetected); mecAC Resistant Gene DETECTED (NotDetected)
[2024-08-26 22:49] LABS: Staphylococcus epidermidis DETECTED (NotDetected); Staphylococcus spp. DETECTED (NotDetected)
[2024-08-27 06:26] LABS: Basophils # (auto) 0.05 K/uL (0.00-0.20); Basophils % (auto) 0.6 %; Eosinophils # (auto) 0.31 K/uL (0.00-0.50); Eosinophils % (auto) 3.4 %; Hematocrit (blood only) 30.7 % (42.0-52.0); Immature Granulocytes # (auto) 0.03 K/uL (0.01-0.20); Immature Granulocytes % (auto) 0.3 %; Lymphocytes # (auto) 1.29 K/uL (1.20-3.40); Lymphocytes % (auto) 14.3 %; Mean Corpuscular Hemoglobin 22.7 pg (25.0-34.0); Mean Corpuscular Hgb Conc 29.3 g/dL (32.0-36.0); Mean Corpuscular Volume 77.5 fL (80.0-100.0); Mean Platelet Volume 9.4 fL (9.4-12.4); Monocytes % (auto) 6.6 %; Neutrophils # (auto) 6.76 K/uL (1.40-6.50); Neutrophils % (auto) 74.8 %; Platelet Count 280 K/uL (130-400); RDW Coefficient of Variation 15.4 % (11.5-14.5); RDW Standard Deviation 43.2 fL (36.4-46.3); Red Blood Count 3.96 M/uL (4.70-6.10); White Blood Count 9.04 K/ul (4.8-10.8)
[2024-08-27 06:44] LABS: Albumin Globulin Ratio 1.2 (0.9-2); BUN Creatinine Ratio 11.7 (10-20); Bilirubin,Total 0.4 mg/dl (0.2-1.0); Calcium 8.3 mg/dl (8.6-10.3); Creatinine Clr Calc Pharmacy 172.2 ml/min; Globulin 2.5 gm/dl (2.5-4.0); Potassium 3.6 mmol/L (3.5-5.1); Total Protein 5.5 gm/dl (6.0-8.3)
--- NOTE | 2024-08-27 14:01 | Hospitalist Progress Note ---
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 Patient has history of hypotension and takes midodrine as needed. Patient blood pressure was soft in the ER and received fluid bolus with improvement in blood pressure.. Complains of abdominal pain. Suprapubic cath site is leaking and patient states sometimes it leaks. Patient was admitted in 07/01 in [facility] for complicated UTI and treated with Cipro. His was also treated for abdominal pain with as needed nortriptyline and PPI. Patient's heart rate and blood pressure usually fluctu ates widely. CAUTI, POA Patient presented with abdominal pain; has history of suprapubic catheter. CT abdomen and pelvis did not show any acute finding; possible constipation. Subcutaneous defect in sacral area due to chronic sacral ulcer. Urine culture growing Klebsiella pneumoniae and Pseudomonas aeruginosa Blood culture1 out of 4 growing Staph epidermidis; likely contaminant Continue Zosyn; follow-up on final sensitivity results. Discontinue vancomycin Hypotension Received fluids in the ER IV normal saline Home midodrine as needed Will monitor Anemia Hemoglobin 9.3 Hemoglobin was 11 in May Continue iron supplements History of labile blood pressure Labile heart rates Autonomic dysreflexia Close monitor Continue midodrine as needed History of asymptomatic bradycardia Supposed to follow for ZIO monitor Neurogenic bladder with chronic indwelling suprapubic catheter History of nephrolithiasis Follow cultures Has some leakage from suprapubic catheter site Urology evaluated; recommend to follow outpatient Chronic sacral decubitus ulcer stage IV, POA Chronic osteomyelitis Wound care, no signs of active infection COPD Tobacco abuse Will continue Home inhalers Substance use disorder to avoid narcotics History of PE on Eliquis, continue History of HCV Seems s/p treatment Mood disorder On nortriptyline, continue Chronic pain Gabapentin and baclofen as needed, continue DVT prophylaxis On Eliquis Disposition med/telemetry Full code. Time spent evaluating patient, direct bedside care, chart review, placing orders, interpretation of diagnostic studies, discussion with consultants, patient, and family members, as well as other required patient management activities is 50 minutes Please note the above document was generated using voice recognition software. It may contain grammatical, syntax or spelling errors. Any formal questions or concerns about the content, text or information contained within the body of this dictation should be directly addressed to the provider for clarification Admission and Anticipated Discharge Date Admission Date: August 26, 2024 Subjective Patient seen and examined at bedside. He reports that his abdominal pain has slightly improved compared to previous days No significant events overnight; afebrile. Review of Systems Review of Systems: All systems reviewed & are unremarkable except as noted in Subjective Physical Exam Physical Exam: General- Not in distress Head- atraumatic Eyes- PERRL. ENT- oropharynx dry Neck- supple, no JVD. Lungs- clear to auscultation no wheezing or crackles Heart- regular rhythm; no murmur, no gallop. Abdomen- normal bowel sounds, soft, Possible leakage around suprapubic catheter site. No erythema/pus. Sacral wound evaluated; chronic ulcer present with no signs or symptoms of infection. Extremities- no pretibial edema, no erythema seen Neuro- alert, oriented ; PERRL, no facial palsy; no dysarthria; can move upper extremities but cannot use fingers. Cannot move lower extremity Results & Data Results & Data Vital Signs (Past 12 Hours) Vital Signs Temp Pulse Pulse Resp BP Pulse Ox O2 Del Method 08/27/24 11:51 36.8 C 62 18 125/86 96 Room Air 08/27/24 07:46 36.7 C 71 16 153/78 H 94 Room Air 08/27/24 07:45 Room Air 08/27/24 07:00 66 08/27/24 02:41 36.8 C 64 16 131/90 97 Room Air
--- NOTE | 2024-08-27 14:08 | Infectious Disease Consult ---
Date of Service August 27, 2024 Telehealth Information I performed this visit using a real-time telehealth connection between my location and the patients location ([facility]). After connecting through interactive tele-video, patient was identified by name and date of and/or wristband check.Patient (or authorized healthcare community engagement representative) was informed that this was a telemedicine visit and it was being conducted confidentially over secure lines. My office door was closed and no one else was present in the room with me.Patient (or authorized healthcare community engagement representative) provided consent to proceed with the visit, expressed an understanding of privacy and security of the telemedicine visit, and gave permission to have a hospital community engagement representative in the room in order to assist with the visit and to conduct portions of the visit, as needed. I informed the patient (or authorized healthcare community engagement representative) that I reviewed their record and presented the opportunity for them to ask any questions regarding the visit today. The patient agreed to participate. 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 Given patient susceptibilities as shown, we can given final antibiotic recs. Blood cultures show contamination with Staph Epi. 1. UTI, recurrent - Recommend stopping Zosyn IV and Vancomycin IV. Recommend starting Cipro 500 mg PO BID for 10 days of total antibiotics. - Recommend Urology evaluation of suprapubic catheter given hx of leaking which can lead to recurrent UTIs. - we will sign off, we will not actively monitor patient, please call with issues, concerns, or questions via phone or tiger text. Thank you. History of Present Illness History of Present Illness Reason for Consult: recurrent uti. 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 Per notes and chart review, pt has history of hypotension and takes midodrine as needed. Patient blood pressure was soft in the ER and received fluid bolus and blood pressure is okay now. Complains of abdominal pain. Suprapubic cath site is leaking and patient states sometimes it leaks. Before coming to the hospital says he had a fever. Urine culture on 08/22/2024 (+) PSA and Klebsiella with mark shown below and Urine culture on 08/26/2024 showing the same organisms. ID consulted for evaluation and management. Allergies Allergy/AdvReac Type Severity Reaction Status Date / Time Opioids - Morphine Analogues AdvReac severe Verified 05/17/24 15:46 bradycardia Home Medications Medication Instructions Recorded Confirmed Type albuterol sulfate 2.5 mg/3 mL 2.5 mg inhalation Q4H PRN 08/26/24 08/26/24 History (0.083 %) solution for nebulization Shortness Of Breath Or Wheezing apixaban 5 mg tablet (Eliquis) 5 mg PO BID 08/26/24 08/26/24 History ascorbic acid (vitamin C) 500 mg 500 mg PO DAILY 08/26/24 08/26/24 History tablet (Vitamin C) baclofen 10 mg tablet 20 mg PO TID PRN muscle spasms 08/26/24 08/26/24 History bisacodyl 10 mg rectal suppository 10 mg WV BID 08/26/24 08/26/24 History budesonide-formoterol HFA 160 2 puff inhalation BID 08/26/24 08/26/24 History mcg-4.5 mcg/actuation aerosol inhaler docusate sodium 100 mg capsule 100 mg PO BID PRN Constipation 08/26/24 08/26/24 History ferrous sulfate 325 mg (65 mg 325 mg PO DAILY 08/26/24 08/26/24 History iron) tablet,delayed release hydroxyzine HCl 25 mg tablet 25 mg PO DAILY PRN Anxiety 08/26/24 08/26/24 History lactulose 10 gram/15 mL oral 20 g PO TID PRN Constipation 08/26/24 08/26/24 History solution lidocaine 5 % topical patch 1 patch topical DAILY PRN Pain 08/26/24 08/26/24 History midodrine 10 mg tablet 10 mg PO TID PRN Hypotension 08/26/24 08/26/24 History multivitamin 1 tab PO DAILY 08/26/24 08/26/24 History nortriptyline 25 mg capsule 25 mg PO HS 08/26/24 08/26/24 History oxybutynin chloride 10 mg 10 mg PO DAILY 08/26/24 08/26/24 History tablet,extended release 24 hr pantoprazole 40 mg tablet,delayed 40 mg PO DAILY 08/26/24 08/26/24 History release sennosides 8.6 mg-docusate sodium 2 tab PO HS 08/26/24 08/26/24 History 50 mg tablet (Senexon-S) tiotropium bromide 2.5 2 puff inhalation DAILY 08/26/24 08/26/24 History mcg/actuation mist for inhalation (Spiriva Respimat) Patient History Medical History Abdominal pain Aspiration pneumonitis Pneumonia Paraplegia Surgical History No pertinent past surgical history Social History Smoking Status: Former smoker Tobacco Type: Cigarettes Cigarettes Per Day: 50-60; Second Hand Exposure: Yes; Do You Dip or Chew Tobacco: Yes; Hx Alcohol Use: Yes Alcohol type: hard liquor Hx Substance Use: No Preferred Language: Libyan Communication Ability: Effective Communication Ability Comment: difficulty writing Engraver Seals Required: No Beliefs That Will Affect Care: None Current Living Situation: Alone 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 28/02 Feels Safe at Home: Yes Assistive Devices: Hospital Bed, Mechanical Lift and Scooter/Electric Scooter Review of Systems all ROS negative and reviewed. Physical Exam NA Results & Data Vital Signs (Past 12 Hours) Vital Signs Temp Pulse Pulse Resp BP Pulse Ox O2 Del Method 08/27/24 11:51 36.8 C 62 18 125/86 96 Room Air 08/27/24 07:46 36.7 C 71 16 153/78 H 94 Room Air 08/27/24 07:45 Room Air 08/27/24 07:00 66 08/27/24 02:41 36.8 C 64 16 131/90 97 Room Air Laboratory Results 08/26/24 01:55 Urine Culture - Preliminary Urine,Clean Catch Klebsiella pneumoniae Pseudomonas aeruginosa 08/26/24 01:32 Aerobic Blood Culture - Preliminary Blood Staphylococcus epidermidis Anaerobic Blood Culture - Preliminary No growth in Anaerobic bottle after 24 hours. 08/26/24 01:21 Aerobic Blood Culture - Preliminary Blood No growth in Aerobic bottle after 24 hours. Anaerobic Blood Culture - Preliminary No growth in Anaerobic bottle after 24 hours. 08/27/24 08/26/24 05:47 01:32 WBC 9.04 RBC 3.96 L Hgb 9.0 L Hct 30.7 L MCV 77.5 L MCH 22.7 L MCHC 29.3 L RDW Std Deviation 43.2 RDW Coeff of Adelia 15.4 H Plt Count 280 MPV 9.4 Immature Gran % (Auto) 0.3 Neut % (Auto) 74.8 Lymph % (Auto) 14.3 [place] % (Auto) 6.6 Eos % (Auto) 3.4 Baso % (Auto) 0.6 Neut # (Auto) 6.76 H Lymph # (Auto) 1.29 [place] # (Auto) 0.60 H Eos # (Auto) 0.31 Baso # (Auto) 0.05 Immature Gran # (Auto) 0.03 Sodium 139 Potassium 3.6 Chloride 109 H Carbon Dioxide 26 Anion Gap 4 BUN 7 Creatinine 0.60 Est Cr Clr Drug Dosing 172.2 eGFR 119.82 BUN/Creatinine Ratio 11.7 Glucose 87 Calcium 8.3 L Total Bilirubin 0.4 AST 10 L ALT 4 L Alkaline Phosphatase 107 H Total Protein 5.5 L Albumin 3.0 L Globulin 2.5 Albumin/Globulin Ratio 1.2 Random Vancomycin 18.0 Staphylococcus sp PCR DETECTED A mecA/C-Methicil Resis Gene DETECTED A Staph epidermidis (PCR) DETECTED A Bld Cult ID Panel PCR See PCR Comment Diagnostic Findings Urine culture on 08/22/2024 Urine Culture Final 08/25/24-0996 Organism 1 Klebsiella pneumoniae [place] Count >100,000 CFU/ml Sens Sensitivities to Follow Organism 2 Pseudomonas aeruginosa [place] Count 50,000 CFU/ml Sens Sensitivities to Follow Kleb pneum P aerugino RX M.I.C. RX M.I.C. --- --------- --- --------- Amikacin S <=16 S <=16 Amox/Clav S <=8/4 Amp/Sul S <=4/2 Aztreonam S <=4 Cefazolin S <=2 Cefepime S <=2 S <=2 Cefotaxime S <=2 Cefoxitin S <=8 Ceftazidime S 8 Ceftriaxone S <=1 Cefuroxime S <=4 Ciprofloxacin S <=0.25 S <=0.25 Ertapenem S <=0.5 Gentamicin S <=2 S <=2 Levofloxacin S <=0.5 S <=0.5 Meropenem S <=1 S <=1 Nitrofurantoin S <=32 Tobramycin S <=2 S <=2 Trimeth/Sulfa S <=0.5/9.5 Pip/Tazo S <=8 S <=8 S = SENSITIVE I = INTERMEDIATE R = RESISTANT Urine culture on 08/26/2024 Urine Culture Preliminary 08/27/24-1211 Organism 1 Klebsiella pneumoniae [place] Count >100,000 CFU/ml Sens Sensitivities to Follow Organism 2 Pseudomonas aeruginosa [place] Count >100,000 CFU/ml Sens Sensitivities to Follow Medications Administered Home Medications Medication Instructions Recorded Confirmed Last Taken albuterol sulfate 2.5 mg/3 mL 2.5 mg inhalation Q4H PRN 08/26/24 08/26/24 Unknown (0.083 %) solution for nebulization Shortness Of Breath Or Wheezing apixaban 5 mg tablet (Eliquis) 5 mg PO BID 08/26/24 08/26/24 Unknown ascorbic acid (vitamin C) 500 mg 500 mg PO DAILY 08/26/24 08/26/24 Unknown tablet (Vitamin C) baclofen 10 mg tablet 20 mg PO TID PRN muscle spasms 08/26/24 08/26/24 Unknown bisacodyl 10 mg rectal suppository 10 mg WV BID 08/26/24 08/26/24 Unknown budesonide-formoterol HFA 160 2 puff inhalation BID 08/26/24 08/26/24 Unknown mcg-4.5 mcg/actuation aerosol inhaler docusate sodium 100 mg capsule 100 mg PO BID PRN Constipation 08/26/24 08/26/24 Unknown ferrous sulfate 325 mg (65 mg 325 mg PO DAILY 08/26/24 08/26/24 Unknown iron) tablet,delayed release hydroxyzine HCl 25 mg tablet 25 mg PO DAILY PRN Anxiety 08/26/24 08/26/24 Unknown lactulose 10 gram/15 mL oral 20 g PO TID PRN Constipation 08/26/24 08/26/24 Unknown solution lidocaine 5 % topical patch 1 patch topical DAILY PRN Pain 08/26/24 08/26/24 Unknown midodrine 10 mg tablet 10 mg PO TID PRN Hypotension 08/26/24 08/26/24 Unknown multivitamin 1 tab PO DAILY 08/26/24 08/26/24 Unknown nortriptyline 25 mg capsule 25 mg PO HS 08/26/24 08/26/24 Unknown oxybutynin chloride 10 mg 10 mg PO DAILY 08/26/24 08/26/24 Unknown tablet,extended release 24 hr pantoprazole 40 mg tablet,delayed 40 mg PO DAILY 08/26/24 08/26/24 Unknown release sennosides 8.6 mg-docusate sodium 2 tab PO HS 08/26/24 08/26/24 Unknown 50 mg tablet (Senexon-S) tiotropium bromide 2.5 2 puff inhalation DAILY 08/26/24 08/26/24 Unknown mcg/actuation mist for inhalation (Spiriva Respimat) Active Medications Generic Name Dose Route Start Last Admin Trade Name Freq PRN Reason Stop Dose Admin Apixaban 5 mg 08/26/24 09:00 08/27/24 07:47 Apixaban 5 Mg Tablet PO 09/25/24 08:59 5 mg BID ROSALES Administration Ascorbic Acid 500 mg 08/26/24 09:00 08/27/24 07:47 Ascorbic Acid 500 Mg Tab PO 09/25/24 08:59 500 mg DAILY ROSALES Administration Baclofen 20 mg 08/26/24 06:40 08/27/24 07:53 Baclofen 20 Mg Tab PO 09/25/24 06:39 20 mg TID PRN Administration muscle spasms Bisacodyl 10 mg 08/26/24 09:00 08/27/24 07:44 Bisacodyl 10 Mg Supp WV 09/25/24 08:59 Not Given BID ROSALES Ferrous Sulfate 325 mg 08/26/24 09:00 08/27/24 07:46 Ferrous Sulfate 325 Mg Tab PO 09/25/24 08:59 325 mg DAILY ROSALES Administration Fluticasone/Vilanterol 1 puffs 08/26/24 09:00 08/27/24 07:49 Fluticasone/Vilanterol 100/25mcg 14 Puffs/Inhaler INH 09/25/24 08:59 1 puffs DAILY ROSALES Administration Protocol Piperacillin Sod/Tazobactam Sod 4.5 gm in 100 mls @ 25 mls/hr 08/26/24 08:00 08/27/24 11:51 Zosyn IV 09/05/24 07:59 Infused Q8H ROSALES Infusion Protocol Miscellaneous 1 each 08/26/24 21:00 08/26/24 21:44 Remove Lidoderm Patch N/A 09/25/24 20:59 1 each DAILY@2100 ROSALES Administration Multivitamins 1 tab 08/26/24 09:00 08/27/24 07:47 Multivitamin Tab PO 09/25/24 08:59 1 tab DAILY ROSALES Administration Nortriptyline HCl 25 mg 08/26/24 21:00 08/26/24 21:39 Nortriptyline Hcl 25 Mg Cap PO 09/25/24 20:59 25 mg HS ROSALES Administration Oxybutynin Chloride 10 mg 08/26/24 09:00 08/27/24 07:46 Oxybutynin Chloride Xl 5 Mg Tabcr PO 09/25/24 08:59 10 mg DAILY ROSALES Administration Pantoprazole Sodium 40 mg 08/26/24 09:00 08/27/24 07:47 Pantoprazole 40 Mg Tab PO 09/25/24 08:59 40 mg DAILY ROSALES Administration Senna/Docusate Sodium 2 tab 08/26/24 21:00 08/26/24 21:39 Docusate Sodium/Senna 50/8.6mg Tab PO 09/25/24 20:59 2 tab HS ROSALES Administration Umeclidinium Powell 1 puffs 08/26/24 09:00 08/27/24 07:50 Umeclidinium Powell 62.5mcg/Blister 7 Puffs/Inhaler INH 09/25/24 08:59 1 puffs DAILY ROSALES Administration Protocol (2) Sepsis Sepsis acute organ dysfunction status: unspecified Sepsis type: sepsis due to unspecified organism Qualified Code(s): A41.9 - Sepsis, unspecified organism
[2024-08-28 04:20] VITALS: TEMP 97.7
[2024-08-28 08:04] VITALS: PULSE 61; RESP 16; O2SAT 95
[2024-08-28 10:25] VITALS: BP 110/86
--- NOTE | 2024-08-28 12:56 | Discharge Summary ---
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 Patient has history of hypotension and takes midodrine as needed. Patient blood pressure was soft in the ER and received fluid bolus and blood pressure is okay now. Complains of abdominal pain. Suprapubic cath site is leaking and patient states sometimes it leaks. Before coming to the hospital says he had a fever. Denies any chest pain. No shortness of breath . No cough. No runny nose or sore throat. No headache. No earache. Appetite is okay. Moving bowels okay. Currently hemodynamics are okay. Patient has history of re current admissions for UTI and pneumonia. Patient was admitted in 07/01 in [facility] for complicated UTI and treated with Cipro. His was also treated for abdominal pain with as needed nortriptyline and PPI. Patient's heart rate and blood pressure usually fluctuates widely. Past medical history. As mentioned above Past surgical history. Bladder aspiration by suprapubic cath. Cystoscopy. Drainage of the right lower leg abscess. Incision of right first metatarsal. Neck and lumbar fusion. Bilateral arm surgery. Right ankle surgery. Laparoscopic appendectomy. Cholecystectomy. Social history. Smokes 1 pack a day for 31 years. Vaping some days. Alcohol rarely currently. Amphetamines, marijuana and cocaine use. Social history. Mother had lung cancer. Father had heart attack. Admission Exam Per Admitting Provider General- Not in distress Head- atraumatic Eyes- PERRL. ENT- oropharynx dry Neck- supple, no JVD. Lungs- clear to auscultation no wheezing or crackles Heart- regular rhythm; no murmur, no gallop. Abdomen- normal bowel sounds, soft, suprapubic cat site leaking Extremities- no pretibial edema, no erythema seen Neuro- alert, oriented ; PERRL, no facial palsy; no dysarthria; can move upper extremities but cannot use fingers. Cannot move lower extremity Principal Diagnosis CAUTI, POA Discharge Exam General- Not in distress Head- atraumatic Eyes- PERRL. ENT- oropharynx dry Neck- supple, no JVD. Lungs- clear to auscultation no wheezing or crackles Heart- regular rhythm; no murmur, no gallop. Abdomen- normal bowel sounds, soft, Possible leakage around suprapubic catheter site. No erythema/pus. Sacral wound evaluated; chronic ulcer present with no signs or symptoms of infection. Extremities- no pretibial edema, no erythema seen Neuro- alert, oriented ; PERRL, no facial palsy; no dysarthria; can move upper extremities but cannot use fingers. 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 CAUTI, POA Patient presented with abdominal pain; has history of suprapubic catheter. CT abdomen and pelvis did not show any acute finding; possible constipation. Subcutaneous defect in sacral area due to chronic sacral ulcer. Urine culture growing Klebsiella pneumoniae and Pseudomonas aeruginosa Blood culture1 out of 4 growing Staph epidermidis; likely contaminant Patient was seen by infectious disease; they recommended ciprofloxacin 500 mg twice a day to complete 10-day antibiotic course. Patient reported significant improvement in his abdominal discomfort. He wanted to go home; switched over to p.o. antibiotic at discharge. Discussed with the patient's sister over the phone. I also discussed patient to follow-up with his urologist for evaluation of the suprapubic catheter; he is in agreement with the plan. Please note the above document was generated using voice recognition software. It may contain grammatical, syntax or spelling errors. Any formal questions or concerns about the content, text or information contained within the body of this dictation should be directly addressed to the provider for clarification Total Time Total Time Spent Total Time Spent (In Minutes): 45 Total Time Includes: Examination of the Patient, Discharge Planning, Medication Reconciliation, Communication With Other Providers and Other Discharge Plan Discharge Items Patient Disposition: Home - Self-Care Reason For Visit: ABDOMINAL PAIN, UTI, HYPOTENSION Discharge Diagnosis: CAUTI, POA Condition on Discharge: Fair Activity: Resume your previous activity Non-emergency contact: Primary Care Provider Call non-emergency contact if: you have any medication questions and your symptoms worsen Follow-up/Referrals: Chay Aguilar DO [Primary Care Provider] - Diet: Regular Addtl Attending Provider Instructions: You were admitted to the hospital due to abdominal pain. The likely cause for the abdominal pain is a urinary tract infection. You are treated with IV antibiotic during the hospitalization. You are prescribed ciprofloxacin 500 mg twice daily to be taken for 8 more days to complete the antibiotic course. Please follow-up with your urologist to extend the suprapubic catheter. Pending Studies at Discharge: No Stand-Alone Forms: My [facility] [employer], Smoking Cessation Medications and DC Order Prescriptions: New ciprofloxacin HCl [Cipro] 500 mg tablet 500 mg PO BID 8 Days Qty: 16 0RF Continued albuterol sulfate 2.5 mg /3 mL (0.083 %) Solution For Nebulization 2.5 mg INHALATION Q4H PRN (Reason: Shortness Of Breath Or Wheezing) oxybutynin chloride 10 mg tablet extended release 24hr 10 mg PO DAILY sennosides-docusate sodium [Senexon-S] 8.6-50 mg tablet 2 tab PO HS nortriptyline 25 mg capsule 25 mg PO HS bisacodyl 10 mg suppository 10 mg CO BID lidocaine 5 % adhesive patch,medicated 1 patch topical DAILY PRN (Reason: Pain) docusate sodium 100 mg capsule 100 mg PO BID PRN (Reason: Constipation) hydroxyzine HCl 25 mg tablet 25 mg PO DAILY PRN (Reason: Anxiety) ferrous sulfate 325 mg (65 mg iron) tablet,delayed release (DR/EC) 325 mg PO DAILY midodrine 10 mg tablet 10 mg PO TID PRN (Reason: Hypotension) Rx Instructions: PRN SBP< 90 lactulose 10 gram/15 mL solution 20 g PO TID PRN (Reason: Constipation) budesonide-formoterol 160-4.5 mcg/actuation HFA aerosol inhaler 2 puff INHALATION BID Spiriva Respimat 2.5 mcg/actuation mist 2 puff INHALATION DAILY Eliquis 5 mg tablet 5 mg PO BID multivitamin Tablet 1 tab PO DAILY ascorbic acid (vitamin C) [Vitamin C] 500 mg tablet 500 mg PO DAILY baclofen 10 mg tablet 20 mg PO TID PRN (Reason: muscle spasms) pantoprazole 40 mg tablet,delayed release (DR/EC) 40 mg PO DAILY Discharge Orders: Discharge Order (Routine); Ordered 08/28/24 Ordered By: Mukund Ibarra Admission Data Admit Date/Time: 08/26/24 04:57 Attending Provider: Mukund Ibarra Admit Provider: Zeus Toro Primary Care Provider: Chay Aguilar Other Providers: Zeus Toro; Isauro Zapata; Omero Rubio; Chencho Miles I.; Bishnu Kilgore II; Abril Olivas; Rafael Romero; Alexander Hill; Catalina Blanton; Odell Almodovar; Faraz Gomez; Luz Madrigal; Joo Alfred; Tosha Garner; Toya Brink; Jaycob Huertas; Angella Zaidi; Jose Qureshi; Katia Will; Kenton Anderson Other Interventions: Discharge Summary Assessment (RN) Last Done: 08/28/24 10:20
== END 2024-08-28 13:05 | disposition home or self-care (01) | DRG 698 ==
LOC: ED 01:06 → EDINP 04:57 → 2W 06:41

== ENCOUNTER 2024-09-05 21:43 | Inpatient (IN) ==
[2024-09-05] MEDS ORDERED: VANCOMYCIN CONSULT ACTIVE PRN (22:34)
[2024-09-05] MEDS: SODIUM CHLORIDE 0.9% 1,000 ML IV ONE (22:57)
--- NOTE | 2024-09-05 23:03 | Emergency Department Note ---
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 Patient also states he is concerned his suprapubic catheter area might be infected. Patient denies cough, vomiting, diarrhea. Home Medications Medication Instructions Recorded Confirmed Type albuterol sulfate 2.5 mg/3 mL 2.5 mg inhalation Q4H PRN 08/26/24 08/26/24 History (0.083 %) solution for nebulization Shortness Of Breath Or Wheezing apixaban 5 mg tablet (Eliquis) 5 mg PO BID 08/26/24 08/26/24 History ascorbic acid (vitamin C) 500 mg 500 mg PO DAILY 08/26/24 08/26/24 History tablet (Vitamin C) baclofen 10 mg tablet 20 mg PO TID PRN muscle spasms 08/26/24 08/26/24 History bisacodyl 10 mg rectal suppository 10 mg TX BID 08/26/24 08/26/24 History budesonide-formoterol HFA 160 2 puff inhalation BID 08/26/24 08/26/24 History mcg-4.5 mcg/actuation aerosol inhaler docusate sodium 100 mg capsule 100 mg PO BID PRN Constipation 08/26/24 08/26/24 History ferrous sulfate 325 mg (65 mg 325 mg PO DAILY 08/26/24 08/26/24 History iron) tablet,delayed release hydroxyzine HCl 25 mg tablet 25 mg PO DAILY PRN Anxiety 08/26/24 08/26/24 History lactulose 10 gram/15 mL oral 20 g PO TID PRN Constipation 08/26/24 08/26/24 History solution lidocaine 5 % topical patch 1 patch topical DAILY PRN Pain 08/26/24 08/26/24 History midodrine 10 mg tablet 10 mg PO TID PRN Hypotension 08/26/24 08/26/24 History multivitamin 1 tab PO DAILY 08/26/24 08/26/24 History nortriptyline 25 mg capsule 25 mg PO HS 08/26/24 08/26/24 History oxybutynin chloride 10 mg 10 mg PO DAILY 08/26/24 08/26/24 History tablet,extended release 24 hr pantoprazole 40 mg tablet,delayed 40 mg PO DAILY 08/26/24 08/26/24 History release sennosides 8.6 mg-docusate sodium 2 tab PO HS 08/26/24 08/26/24 History 50 mg tablet (Senexon-S) tiotropium bromide 2.5 2 puff inhalation DAILY 08/26/24 08/26/24 History mcg/actuation mist for inhalation (Spiriva Respimat) Allergies Allergy/AdvReac Type Severity Reaction Status Date / Time Opioids - Morphine Analogues AdvReac severe Verified 05/17/24 15:46 bradycardia Past Med/Surg History Problem List (Updated 09/06/24 @ 01:18 by AIDAN HuntC) Hypokalemia (Acute) Acute UTI (Acute) Pneumonia involving right lung (Acute) Acute UTI (Acute) Sepsis (Acute) Elevated hemidiaphragm Abnormal chest CT Pneumonia (Acute) Cough (Acute) Left sided abdominal pain (Acute) Quadriplegia (Acute) Hypotension (Acute) Abdominal pain Autonomic dysreflexia Constipation Hydronephrosis (Acute) Acute urinary retention (Acute) Leukocytosis (Acute) Complication, blocked suprapubic catheter Hypokalemia (Acute) Hypomagnesemia (Acute) Anemia (Acute) Quadriplegia (Acute) Sacral decubitus ulcer (Acute) Acute UTI (Acute) Hypotension (Acute) Encephalopathy Pneumonia (Acute) Complicated urinary tract infection (Acute Unknown) Change or removal of nonsurgical wound dressing Acute hypoxemic respiratory failure (Acute) Chest pain (Acute) Severe sepsis (Acute) MRSA carrier Pneumonia (Acute) Hypoxic respiratory failure (Acute) 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 Leg wound, right Leg wound, left History of pulmonary embolism Hypoxia (Acute) RSV (respiratory syncytial virus infection) Chronic pain (Acute) Suprapubic catheter (Acute) Complicated UTI (urinary tract infection) (Acute) Sacral decubitus ulcer, stage IV (Acute) Chronic osteomyelitis of sacrum Medical History Acute UTI Abdominal pain Aspiration pneumonitis Pneumonia Paraplegia Surgical History No pertinent past surgical history Social History Smoking Status: Current every day smoker Tobacco Type: Cigarettes Cigarettes Per Day: 50-60; Second Hand Exposure: Yes; Do You Dip or Chew Tobacco: Yes; Hx Alcohol Use: Yes Alcohol type: hard liquor Hx Substance Use: No Preferred Language: Setswana Communication Ability: Effective Communication Ability Comment: difficulty writing [employer] Required: No Beliefs That Will Affect Care: None Current Living Situation: Alone 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 28/02 Feels Safe at Home: Yes Assistive Devices: Mechanical Lift, Nebulizer, Scooter/Electric Scooter and Wheelchair Review of Systems A total of 10 systems reviewed and were otherwise negative Physical Exam Vital Signs Vital Signs - 24 hr 09/05/24 21:53 09/05/24 21:57 09/05/24 22:05 Temperature 37.3 C Temperature Source Oral Pulse Rate 92 H 94 H Pulse Rate [Apical] 94 H Respiratory Rate 20 20 Respiratory Effort / Characteristics Non-Labored Spontaneous Non-Labored Spontaneous Blood Pressure 107/70 Blood Pressure [Left Arm] 107/70 Blood Pressure Mean 82 Blood Pressure Mean [Left Arm] 82 Blood Pressure Position Lying Blood Pressure Position [Left Arm] Lying Pulse Oximetry 94 94 Oxygen Delivery Method Room Air Room Air Sepsis Recent Fever Within 48 Hours No Sepsis New/Unexplained Change in Mental Status No Sepsis Action Taken by Nursing No Action Required 09/05/24 22:43 09/05/24 22:46 09/05/24 23:01 Temperature Temperature Source Pulse Rate 93 H Pulse Rate [Apical] 93 H 88 Respiratory Rate 18 18 18 Respiratory Effort / Characteristics Non-Labored Spontaneous Non-Labored Spontaneous Blood Pressure Blood Pressure [Left Arm] 97/67 L 99/70 L Blood Pressure Mean Blood Pressure Mean [Left Arm] 77 79 Blood Pressure Position Blood Pressure Position [Left Arm] Lying Pulse Oximetry 93 93 93 Oxygen Delivery Method Room Air Room Air Room Air Sepsis Recent Fever Within 48 Hours Sepsis New/Unexplained Change in Mental Status Sepsis Action Taken by Nursing 09/05/24 23:01 09/05/24 23:15 09/05/24 23:30 Temperature Temperature Source Pulse Rate 87 87 87 Pulse Rate [Apical] Respiratory Rate 20 22 22 Respiratory Effort / Characteristics Blood Pressure 99/70 L 99/71 L 118/71 Blood Pressure [Left Arm] Blood Pressure Mean 76 85 87 Blood Pressure Mean [Left Arm] Blood Pressure Position Blood Pressure Position [Left Arm] Pulse Oximetry 91 92 92 Oxygen Delivery Method Room Air Room Air Room Air Sepsis Recent Fever Within 48 Hours Sepsis New/Unexplained Change in Mental Status Sepsis Action Taken by Nursing 09/05/24 23:30 09/06/24 00:07 09/06/24 00:15 Temperature Temperature Source Pulse Rate 84 86 88 Pulse Rate [Apical] Respiratory Rate 20 22 22 Respiratory Effort / Characteristics Blood Pressure 118/71 133/91 119/85 Blood Pressure [Left Arm] Blood Pressure Mean 87 100 97 Blood Pressure Mean [Left Arm] Blood Pressure Position Blood Pressure Position [Left Arm] Pulse Oximetry 92 92 91 Oxygen Delivery Method Room Air Room Air Room Air Sepsis Recent Fever Within 48 Hours Sepsis New/Unexplained Change in Mental Status Sepsis Action Taken by Nursing 09/06/24 00:30 Temperature Temperature Source Pulse Rate 86 Pulse Rate [Apical] Respiratory Rate 22 Respiratory Effort / Characteristics Blood Pressure 129/91 Blood Pressure [Left Arm] Blood Pressure Mean 98 Blood Pressure Mean [Left Arm] Blood Pressure Position Blood Pressure Position [Left Arm] Pulse Oximetry 91 Oxygen Delivery Method Room Air Sepsis Recent Fever Within 48 Hours Sepsis New/Unexplained Change in Mental Status Sepsis Action Taken by Nursing VITALS: Vitals are noted on the nurse's note and reviewed by myself. Vital signs stable. GENERAL: White male, sacral ulcer, in no acute distress, nondiaphoretic, well- developed well-nourished. SKIN: Sacral ulcer, the rest of the skin was without rashes, erythema, edema, or bruising. There is no tenting of the skin. Capillary reflex less than 2 seconds. HEAD: Normocephalic atraumatic. EARS: External auditory canals clear EYES: Pupils equal round and reactive to light and accommodation. Conjunctivae without injection, sclerae without icterus. Extraocular movements intact. NOSE: Patent, no discharge. MOUTH: Mucous membranes moist. Pharynx without erythema or exudate. Uvula midline. Airway patent. Tongue does not deviate. NECK: Supple without nuchal rigidity. No lymphadenopathy. No thyromegaly. Cervical spine is nontender. No JVD. HEART: Regular rate and rhythm LUNGS: Clear to auscultation bilaterally without wheezes, rales or rhonchi. No retractions or accessory muscle use. ABDOMEN: Positive bowel sounds x 4. Normal tympanic percussion. Soft, suprapubic cath lower abdomen, diffusely tender to palpation, minimal drainage from the suprapubic cath. That was cultured and sent, without masses or organomegaly. Ramirez sign negative. No guarding or rebound tenderness. No CVA tenderness MUSCULOSKELETAL: No muscle atrophy, erythema, or edema noted. NEURO: Patient was alert and oriented to person place and time. No focal neurological deficits. Course Administered Medications Discontinued Medications Piperacillin Sod/Tazobactam Sod (Zosyn) 4.5 gm in 100 mls @ 200 mls/hr IV NOW ONE; Protocol Stop: 09/05/24 23:03 Last Infusion: 09/06/24 01:16 Dose: Infused Documented By: Admin: 09/06/24 00:05 Dose: 200 mls/hr Documented By: KARLA Sodium Chloride (Nss) 1,000 mls @ 999 mls/hr IV .Q1H1M ONE Stop: 09/05/24 23:34 Last Admin: 09/05/24 22:57 Dose: 999 mls/hr Documented By: PETERSON Acetaminophen (Ofirmev) 1,000 mg in 100 mls @ 400 mls/hr IV NOW STA Stop: 09/06/24 01:28 Last Admin: 09/06/24 01:32 Dose: 400 mls/hr Documented By: QUENTIN Ioversol (Optiray 320 125ml) 119 ml IV ONCE ONE Stop: 09/06/24 00:04 Last Admin: 09/06/24 00:03 Dose: 119 ml Documented By: ANNABELLE Lorazepam (Lorazepam 1 Mg/1 Ml Syr Ed Inj Use) 1 mg IV ONE STA Stop: 09/06/24 01:15 Last Admin: 09/06/24 01:31 Dose: 1 mg Documented By: QUENTIN Potassium Chloride (Potassium Chloride Crtab 20 Meq Tabcr) 40 meq PO NOW STA Stop: 09/05/24 23:52 Last Admin: 09/06/24 00:05 Dose: 40 meq Documented By: KARLA Medical Decision Making Medical Records Attestation: I reviewed the patient's medical records. Home Medications Current Medication List: was personally reviewed by me Laboratory Data Attestation: I reviewed the patient's lab results. 09/05/24 22:32 09/05/24 22:32 Lab Results 09/05/24 09/05/24 Range/Units 22:32 23:11 WBC 16.75 H (4.8-10.8) K/ul RBC 4.05 L (4.70-6.10) M/uL Hgb 9.1 L (14.0-18.0) g/dl Hct 30.4 L (42.0-52.0) % MCV 75.1 L (80.0-100.0) fL MCH 22.5 L (25.0-34.0) pg MCHC 29.9 L (32.0-36.0) g/dL RDW Std Deviation 45.9 (36.4-46.3) fL RDW Coeff of [place] 17.2 H (11.5-14.5) % Plt Count 276 (130-400) K/uL MPV 9.4 (9.4-12.4) fL Immature Gran % (Auto) 0.5 % Neut % (Auto) 82.4 % Lymph % (Auto) 8.6 % [place] % (Auto) 7.8 % Eos % (Auto) 0.4 % Baso % (Auto) 0.3 % Neut # (Auto) 13.80 H (1.40-6.50) K/uL Lymph # (Auto) 1.44 (1.20-3.40) K/uL [place] # (Auto) 1.31 H (0.11-0.59) K/uL Eos # (Auto) 0.07 (0.00-0.50) K/uL Baso # (Auto) 0.05 (0.00-0.20) K/uL Immature Gran # (Auto) 0.08 (0.01-0.20) K/uL Sodium 138 (136-145) mmol/L Potassium 3.2 L (3.5-5.1) mmol/L Chloride 106 (98-107) mmol/L Carbon Dioxide 25 (21-32) mmol/L Anion Gap 7 (3-11) BUN 9 (6-23) mg/dl Creatinine 0.51 L (0.6-1.4) mg/dl Est Cr Clr Drug Dosing 200.1 ml/min eGFR 125.85 BUN/Creatinine Ratio 17.6 (10-20) Glucose 104 H (70-99(Fasting)) mg/dl Lactate 0.8 (0.4-2.0) mmol/L Calcium 8.4 L (8.6-10.3) mg/dl Magnesium 1.7 (1.7-2.4) mg/dl Total Bilirubin 1.0 (0.2-1.0) mg/dl Direct Bilirubin 0.2 (0-0.2) mg/dl AST 13 (13-39) U/L ALT 4 L (7-52) U/L Alkaline Phosphatase 110 H (34-104) U/L Troponin I High Sens 4.7 (0-20) pg/ml Total Protein 6.6 (6.0-8.3) gm/dl Albumin 3.3 L (3.4-5.0) gm/dl Procalcitonin 0.09 (0-0.5) ng/ml Urine Color [place] Urine Appearance Turbid A (Clear) Urine pH 7.5 (4.5-7.5) Ur Specific [place] 1.023 (1.000-1.030) Urine Protein 2+ H (Negative) Urine Glucose (UA) Negative (Negative) Urine Ketones Trace H (Negative) Urine Blood 3+ H (Negative) Urine Nitrite Negative (Negative) Urine Bilirubin Negative (Negative) Urine Urobilinogen Positive H (Negative) Ur Leukocyte Esterase 3+ H (Negative) Urine WBC (Auto) >50 H (0-5) /hpf Urine RBC (Auto) >20 H (0-2) /hpf U Hyaline Cast (Auto) 6-10 H (0-2) /lpf U Epithel Cells (Auto) 0-2 (0-2) /hpf Urine Bacteria (Auto) 1+ H (None Seen) Urine Yeast Present A (None Prsent) Imaging Data Attestation: I personally reviewed and interpreted this imaging study as follows: Radiologist's Impression: Abdomen/Pelvis CT 09/05/24 22:31 EXAM: CT abd pelvis IV con only CLINICAL HISTORY: None TECHNIQUE: Contiguous axial images were obtained from the level of the diaphragm to the pubic symphysis without and with intravenous contrast. Coronal and sagittal reconstructions were likewise performed and indicated to increase the sensitivity for detecting clinically relevant pathology. If IV contrast material had not been administered, the likelihood of detecting abnormalities relevant to the patient's condition would have been substantially decreased. CT scan was performed according to ALARA (as low as reasonable achievable). COMPARISON: 01 sep 2024 FINDINGS: Consolidation is noted involving basal segment of right lower lobe. Multiple atelectatic bands are noted involving basal segment of both lower lobes. The liver is normal in size and attenuation. No focal liver lesions are seen. There is no intra or extrahepatic biliary ductal dilatation. Hepatic vasculature is patent. The gallbladder is removed. The spleen, pancreas, and adrenal glands are unremarkable. The kidneys are normal in size and attenuation. There is no hydronephrosis or perinephric fat stranding. Right kidney show nonobstructing calculus of size 4mm in upper calyx.. Left kidney show nonobstructing calculus of size 3mm, 4mm and 6 mm in middle calyx The ureters are normal in caliber and no ureteral calculi are seen. The bladder is normal in contour. Suprapubic cathetarisation is seen in situ. Pelvic viscera are unremarkable. No focal or diffuse bowel wall thickening or evidence of bowel obstruction is identified. The appendix is visualized in the right lower quadrant and appears within normal limits. Abdominal and pelvic vasculature is patent. No adenopathy or fluid collections are seen. No aggressive appearing osseous lesions are identified. IMPRESSION: Consolidation is noted involving basal segment of right lower lobe. -increased. Multiple atelectatic bands are noted involving basal segment of both lower lobes. -stable. Bilateral multiple non-obstructing renal calculi.-stable. No other new interval abnormality since prior study. Electronically signed by Justin Melgar 09-06-2024 01:29 AM Chest CTA 09/05/24 22:31 EXAM: CT angio chest PE protocol CLINICAL HISTORY: None TECHNIQUE: Contiguous axial images were obtained from the neck base through the upper abdomen following intravenous administration of iodinated contrast material. Angiographic images were processed, 3D MIP images were acquired for interpretation. If IV contrast material had not been administered, the likelihood of detecting abnormalities relevant to the patient's condition would have been substantially decreased. Coronal and sagittal 3-D MIPs were likewise performed and indicated to increase the sensitivity of detectin diffuse clinically relevant pathology. CT scan was performed according to ALARA (as low as reasonably achievable). COMPARISON: none FINDINGS: No evidence of central pulmonary embolism. Dense subpleural consolidation is noted involving the posterior basal segment of right lower lobe, posterior segment of right upper lobe. Possibility of infective etiology vs aspiration pneumonitis. Suggested clinical/lab correlation. Multiple subpleural subsegmental atelectatic changes are noted involving left lower lobe, inferior lingula. The central airways are patent. Pulmonary arteries are of normal size and configuration. No pleural effusion. The heart, aorta are of normal size and configuration. There are no appreciable coronary artery and aortic atherosclerotic calcifications. No pericardial effusion is identified. The thyroid is unremarkable. No mediastinal, hilar, or axillary lymphadenopathy is noted. No suspicious lytic or sclerotic osseous lesions are identified. IMPRESSION: 1. No evidence of pulmonary embolism. 2. Dense subpleural consolidation is noted involving the posterior basal segment of right lower lobe, posterior segment of right upper lobe. Possibility of infective etiology vs aspiration pneumonitis. Suggested clinical/lab correlation. 3. Multiple subpleural subsegmental atelectatic changes are noted involving left lower lobe, inferior lingula. Electronically signed by Justin Melgar 09-06-2024 01:32 AM Chest X-Ray 09/05/24 22:32 Exam(s): XR CXR 1 VIEW EXAM: XR Chest, 1 View CLINICAL HISTORY: Reason for exam: Sepsis. TECHNIQUE: Frontal view of the chest. COMPARISON: 09/01/2024. FINDINGS: There is a poor inspiratory effort. Lungs: There is a right basilar infiltrate.. Pleural space: No pleural effusion is seen. No pneumothorax. Heart: Heart is top normal in size.. Mediastinum: Unremarkable. Bones/joints: There are degenerative changes in the spine.. IMPRESSION: There is a new right basilar infiltrate. Electronically signed by: Milton Storey MD 09/06/24 00:06 AM MDM Narrative Prior records/ancillary studies reviewed and summarized above. Nursing notes reviewed. Additional history obtained from nursing. The patient's history was concerning for weakness, generalized illness, abdominal pain, suprapubic catheter problem. Differential diagnosis: Etiologies such as metabolic, infection, hypo/hyperglycemia, electrolyte abnormalities, cardiac sources, intracerebral event, toxicologic, neurologic, as well as others were entertained. Physical examination: As above. ER treatment provided: IV Lock An order was placed for continuous cardiac monitoring. The monitor shows a rate of 60-100 with a sinus rhythm per my interpretation. Vancomycin and Zosyn were ordered, IV fluids On reassessment the patient felt better. Diagnostics interpretation by me: ECG: Ordered for weakness EKG: Normal sinus, normal intervals, no acute ST-T changes. Impression normal sinus rhythm independently interpreted myself The labs Independently Interpreted by myself revealed leukocytosis, negative infection markers Blood cultures pending [address] [place] [address] / Director: Jaycee Santana M.D. Clinical Laboratory Report Name: TOMNEHEMIAS Acct: [id number] Status: DIS IN : 1975 [facility] [place], [place] Date: 08/26/24 Age: 48 Sex: M Dis Date: 08/28/24 Loc: [address]/Bed: W2601 Spec: [id number] Collected: 08/26/24 Received: 08/26/[address]: Kathleen Anderson PA-C Source: Urine,Clean Catch OV Order: Ordered: Urine Culture Procedure Result Verified Site Urine Culture Final 08/28/24-1109 Organism 1 Klebsiella pneumoniae [place] Count >100,000 CFU/ml Sens Sensitivities to Follow Organism 2 Pseudomonas aeruginosa [place] Count >100,000 CFU/ml Sens Sensitivities to Follow Kleb pneum P aerugino RX M.I.C. RX M.I.C. --- --------- --- --------- Amikacin S <=16 S <=16 Amox/Clav S <=8/4 Amp/Sul S <=4/2 Aztreonam S <=4 Cefazolin S <=2 Cefepime S <=2 S <=2 Cefotaxime S <=2 Cefoxitin S <=8 Ceftazidime S 4 Ceftriaxone S <=1 Cefuroxime S <=4 Ciprofloxacin S <=0.25 S <=0.25 Ertapenem S <=0.5 Gentamicin S <=2 S <=2 Levofloxacin S <=0.5 S <=0.5 Meropenem S <=1 S <=1 Nitrofurantoin I 64 Tobramycin S <=2 S <=2 Trimeth/Sulfa S <=0.5/9.5 Pip/Tazo S <=8 S <=8 S = SENSITIVE I = INTERMEDIATE R = RESISTANT Imaging studies: imaging as above Consultation: A consultation was placed with the hospitalist. The case was discussed and diagnostics were reviewed. The patient was evaluated in the ER for further treatment. Exam and history seem consistent with pneumonia with UTI. Patient was started on broad-spectrum antibiotics. Prior cultures were reviewed. MRSA swab was positive from last ER admission. Medicine was consulted case is discussed. He will be evaluated for admission. By the evaluation outlined above emergent etiologies such as cardiac sources, intracerebral event, toxologic, neurologic, abnormalities blood glucose, metabolic, as well as others were deemed relatively unlikely. The pt informed about the findings as listed above. All questions were answered and pleased with the treatment. The chart was completed utilizing Save[employer] Speech voice recognition software. Grammatical errors, random word insertions, pronoun errors, and incomplete sentences are an occassional consequence of this system due to software limitations, ambient noise, and hardware issues. Any formal questions or concerns about the content, text, or information contained within the body of this dictation should be directly addressed to the physician clerical dentist assistant for clarification. Impression & Plan Pneumonia involving right lung, Acute UTI, Hypokalemia Discharge Plan Visit Data Chief Complaint: Urinary Symptoms Stated Complaint: Blood in Catheter, Pneumonia, Possible UTI ED Provider: Toi Dunham ED Midlevel Provider: Kathleen Anderson Discharge Problem: Pneumonia involving right lung, Acute UTI, Hypokalemia Patient Disposition: Admitted As Inpatient Condition: Fair Forms Stand Alone Forms: [facility] Prescriptions Prescriptions: No Action albuterol sulfate 2.5 mg /3 mL (0.083 %) Solution For Nebulization 2.5 mg INHALATION Q4H PRN (Reason: Shortness Of Breath Or Wheezing) oxybutynin chloride 10 mg tablet extended release 24hr 10 mg PO DAILY sennosides-docusate sodium [Senexon-S] 8.6-50 mg tablet 2 tab PO HS nortriptyline 25 mg capsule 25 mg PO HS bisacodyl 10 mg suppository 10 mg TX BID lidocaine 5 % adhesive patch,medicated 1 patch topical DAILY PRN (Reason: Pain) docusate sodium 100 mg capsule 100 mg PO BID PRN (Reason: Constipation) hydroxyzine HCl 25 mg tablet 25 mg PO DAILY PRN (Reason: Anxiety) ferrous sulfate 325 mg (65 mg iron) tablet,delayed release (DR/EC) 325 mg PO DAILY midodrine 10 mg tablet 10 mg PO TID PRN (Reason: Hypotension) Rx Instructions: PRN SBP< 90 lactulose 10 gram/15 mL solution 20 g PO TID PRN (Reason: Constipation) budesonide-formoterol 160-4.5 mcg/actuation HFA aerosol inhaler 2 puff INHALATION BID Spiriva Respimat 2.5 mcg/actuation mist 2 puff INHALATION DAILY Eliquis 5 mg tablet 5 mg PO BID multivitamin Tablet 1 tab PO DAILY ascorbic acid (vitamin C) [Vitamin C] 500 mg tablet 500 mg PO DAILY baclofen 10 mg tablet 20 mg PO TID PRN (Reason: muscle spasms) pantoprazole 40 mg tablet,delayed release (DR/EC) 40 mg PO DAILY Referrals Referrals: Chay Aguilar DO [Primary Care Provider] - Discharge Problem: Pneumonia involving right lung Qualifiers: Pneumonia type: due to unspecified organism Lung location: lower lobe of lung Q ualified Code(s): J18.9 - Pneumonia, unspecified organism
[2024-09-05 23:07] LABS: Basophils # (auto) 0.05 K/uL (0.00-0.20); Basophils % (auto) 0.3 %; Eosinophils # (auto) 0.07 K/uL (0.00-0.50); Eosinophils % (auto) 0.4 %; Hematocrit (blood only) 30.4 % (42.0-52.0); Hemoglobin 9.1 g/dl (14.0-18.0); Immature Granulocytes # (auto) 0.08 K/uL (0.01-0.20); Immature Granulocytes % (auto) 0.5 %; Lymphocytes # (auto) 1.44 K/uL (1.20-3.40); Lymphocytes % (auto) 8.6 %; Mean Corpuscular Hemoglobin 22.5 pg (25.0-34.0); Mean Corpuscular Hgb Conc 29.9 g/dL (32.0-36.0); Mean Corpuscular Volume 75.1 fL (80.0-100.0); Mean Platelet Volume 9.4 fL (9.4-12.4); Monocytes # (auto) 1.31 K/uL (0.11-0.59); Monocytes % (auto) 7.8 %; Neutrophils % (auto) 82.4 %; Platelet Count 276 K/uL (130-400); RDW Coefficient of Variation 17.2 % (11.5-14.5); RDW Standard Deviation 45.9 fL (36.4-46.3); Red Blood Count 4.05 M/uL (4.70-6.10); White Blood Count 16.75 K/ul (4.8-10.8)
[2024-09-05 23:24] LABS: Albumin Level 3.3 gm/dl (3.4-5.0); BUN Creatinine Ratio 17.6 (10-20); Bilirubin Direct 0.2 mg/dl (0-0.2); Calcium 8.4 mg/dl (8.6-10.3); Creatinine Clr Calc Pharmacy 200.1 ml/min; Magnesium 1.7 mg/dl (1.7-2.4); Potassium 3.2 mmol/L (3.5-5.1); Total Protein 6.6 gm/dl (6.0-8.3)
[2024-09-05 23:30] LABS: Troponin I High Sensitivity 4.7 pg/ml (0-20)
[2024-09-05 23:50] LABS: Appearance Urine Turbid (Clear); Bacteria Urine Automated 1+ (None Seen); Bilirubin Urine Negative (Negative); Blood Urine 3+ (Negative); Color Urine Orange; Epithelial Cell Urine Auto 0-2 /hpf (0-2); Glucose Urine UA Negative (Negative); Ketones Urine Trace (Negative); Leukocyte Esterase Urine 3+ (Negative); Nitrite Urine Negative (Negative); Protein Urine 2+ (Negative); RBC Urine Automated >20 /hpf (0-2); Specific Gravity Urine 1.023 (1.000-1.030); Urobilinogen Urine Positive (Negative); WBC Urine Automated >50 /hpf (0-5); pH Urine 7.5 (4.5-7.5)
[2024-09-06] MEDS: OPTIRAY 320 125ml IV ONE (00:03)
[2024-09-06] MEDS: PIPERACILLIN/TAZOBACTAM 4.5 GM/100 ML BAG IV ONE (00:05)
[2024-09-06] MEDS: POTASSIUM CHLORIDE CRTAB 20 MEQ TABCR PO STA (00:05)
--- NOTE | 2024-09-06 00:08 | XRay Report ---
Exam(s): XR CXR 1 VIEW EXAM: XR Chest, 1 View CLINICAL HISTORY: Reason for exam: Sepsis. TECHNIQUE: Frontal view of the chest. COMPARISON: 09/01/2024. FINDINGS: There is a poor inspiratory effort. Lungs: There is a right basilar infiltrate.. Pleural space: No pleural effusion is seen. No pneumothorax. Heart: Heart is top normal in size.. Mediastinum: Unremarkable. Bones/joints: There are degenerative changes in the spine.. IMPRESSION: There is a new right basilar infiltrate. Electronically signed by: Milton Storey MD 09/06/24 00:06 AM
--- NOTE | 2024-09-06 01:24 | History & Physical Report ---
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) HCV status post Rx chronic sacral decubitus/leg osteomyelitis hx substance abuse as per records functional disability, concerns about patient's sister ability to care for disabled patient with multiple comorbidities ongoing tobacco abuse Hx MRSA Admit to medical telemetry IVF, continue midodrine as needed Zosyn Aspiration precautions, [employer] eval Avoid narcotics given substance abuse CT cervical spine, neck pain, history Eliquis Rx Hold Eliquis for now until CT cervical spine resulted given suprapubic catheter site bleeding Urology consult re: suprapubic catheter site bleeding/pain PT OT eval once medically stable Nicotine patch as needed DVT prophylaxis. SCDs while Eliquis on hold Full code Patient sister requesting updates from provider. Lyn Fried, contact #[phone]. Text document was generated using [employer] voice recognition software. It may contain grammatical or spelling errors. Kindly contact undersigned for clarification of any documentation item in question. History of Present Illness Chief Complaint: Bloody catheter bag, chest tightness Primary Care Provider: Chay Goins Capp, DO History obtained from patient, family, and records. Limited history from patient secondary to obtunded state post lorazepam administration at the ER. 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 Recent [facility] confinement 08/26-2023 for catheter catheter associated UTI (Pseudomonas and Klebsiella). ID recommended Cipro course. 09/01 Patient returned to ER for left-sided abdominal pain. Minimal bleeding from suprapubic catheter site as per sister. CT abdomen pelvis showed sacral decubitus ulcer without osteomyelitis and fecal retention. Patient discharged home. Worsening abdominal discomfort and bloody suprapubic catheter drainage in the bag as per sister. No trauma as per account. Patient with chest tightness, sister has concerns about worsening cough from possible aspiration. Achy neck pain which is new for patient. Patient brought to ER for evaluation. SBP 90s upon arrival at the ER. IV vancomycin, Zosyn, and lorazepam administered at the ER. Medical History as above Surgical History : Ankle surgery, neck surgery, urologic procedures, arm surgery, appendectomy, leg abscess drainage/metatarsal surgery, cholecystectomy Family History : Heart disease Personal/Social history : 2 packs daily, occasional EtOH intake, disabled Allergies Allergy/AdvReac Type Severity Reaction Status Date / Time Opioids - Morphine Analogues AdvReac severe Verified 05/17/24 15:46 bradycardia Home Medications Medication Instructions Recorded Confirmed Type albuterol sulfate 2.5 mg/3 mL 2.5 mg inhalation Q4H PRN 08/26/24 08/26/24 History (0.083 %) solution for nebulization Shortness Of Breath Or Wheezing apixaban 5 mg tablet (Eliquis) 5 mg PO BID 08/26/24 08/26/24 History ascorbic acid (vitamin C) 500 mg 500 mg PO DAILY 08/26/24 08/26/24 History tablet (Vitamin C) baclofen 10 mg tablet 20 mg PO TID PRN muscle spasms 08/26/24 08/26/24 History bisacodyl 10 mg rectal suppository 10 mg MO BID 08/26/24 08/26/24 History budesonide-formoterol HFA 160 2 puff inhalation BID 08/26/24 08/26/24 History mcg-4.5 mcg/actuation aerosol inhaler docusate sodium 100 mg capsule 100 mg PO BID PRN Constipation 08/26/24 08/26/24 History ferrous sulfate 325 mg (65 mg 325 mg PO DAILY 08/26/24 08/26/24 History iron) tablet,delayed release hydroxyzine HCl 25 mg tablet 25 mg PO DAILY PRN Anxiety 08/26/24 08/26/24 History lactulose 10 gram/15 mL oral 20 g PO TID PRN Constipation 08/26/24 08/26/24 History solution lidocaine 5 % topical patch 1 patch topical DAILY PRN Pain 08/26/24 08/26/24 History midodrine 10 mg tablet 10 mg PO TID PRN Hypotension 08/26/24 08/26/24 History multivitamin 1 tab PO DAILY 08/26/24 08/26/24 History nortriptyline 25 mg capsule 25 mg PO HS 08/26/24 08/26/24 History oxybutynin chloride 10 mg 10 mg PO DAILY 08/26/24 08/26/24 History tablet,extended release 24 hr pantoprazole 40 mg tablet,delayed 40 mg PO DAILY 08/26/24 08/26/24 History release sennosides 8.6 mg-docusate sodium 2 tab PO HS 08/26/24 08/26/24 History 50 mg tablet (Senexon-S) tiotropium bromide 2.5 2 puff inhalation DAILY 08/26/24 08/26/24 History mcg/actuation mist for inhalation (Spiriva Respimat) Past Med/Surg History Problem List (Updated 09/06/24 @ 04:20 by Background Noe) Hypokalemia (Acute) Acute UTI (Acute) Pneumonia involving right lung (Acute) Acute UTI (Acute) Sepsis (Acute) Elevated hemidiaphragm Abnormal chest CT Pneumonia (Acute) Cough (Acute) Left sided abdominal pain (Acute) Quadriplegia (Acute) Hypotension (Acute) Abdominal pain Autonomic dysreflexia Constipation Hydronephrosis (Acute) Acute urinary retention (Acute) Leukocytosis (Acute) Complication, blocked suprapubic catheter Hypokalemia (Acute) Hypomagnesemia (Acute) Anemia (Acute) Quadriplegia (Acute) Sacral decubitus ulcer (Acute) Acute UTI (Acute) Hypotension (Acute) Encephalopathy Pneumonia (Acute) Complicated urinary tract infection (Acute Unknown) Change or removal of nonsurgical wound dressing Acute hypoxemic respiratory failure (Acute) Chest pain (Acute) Severe sepsis (Acute) MRSA carrier Pneumonia (Acute) Hypoxic respiratory failure (Acute) 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 Leg wound, right Leg wound, left History of pulmonary embolism Hypoxia (Acute) RSV (respiratory syncytial virus infection) Chronic pain (Acute) Suprapubic catheter (Acute) Complicated UTI (urinary tract infection) (Acute) Sacral decubitus ulcer, stage IV (Acute) Chronic osteomyelitis of sacrum Medical History Acute UTI Abdominal pain Aspiration pneumonitis Pneumonia Paraplegia Surgical History No pertinent past surgical history Social History Smoking Status: Former smoker Tobacco Type: Cigarettes and Smokeless Tobacco (Dip or Chew) Cigarettes Per Day: 1/2ppd; Second Hand Exposure: Yes; Do You Dip or Chew Tobacco: Yes; Hx Alcohol Use: Yes Alcohol type: hard liquor Hx Substance Use: Yes Non-Prescribed Medications: Crack / Cocaine and Marijuana Last Used Substance: Unknown Preferred Language: Faroese Communication Ability: Effective Communication Ability Comment: difficulty writing Supervisor [employer] Required: No Beliefs That Will Affect Care: None Current Living Situation: Alone Current Living Situation Comment: lives home with brother. has 24 hr caregivers Feels Safe at Home: Yes Assistive Devices: Other Review of Systems Review of Systems: Could not be reliably obtained secondary to obtunded state Physical Exam Physical Exam: GENERAL: Obtunded, looks older than stated age, chronically ill, no respiratory distress SKIN: Pallor HEENT: Alopecia, pale palpebral conjunctivae, no ptosis, dry buccal mucosa NECK : Some limitation in motion, no tenderness CHEST : Decreased breath sounds, expiratory wheezes, no tenderness HEART : RRR, no obvious murmurs ABDOMEN: Some distention, dried blood around suprapubic catheter site, minimal hypogastric tenderness EXTREMITIES : Minimal LE swelling/tenderness, posterior surfaces not examined NEUROLOGIC : Obtunded, no facial asymmetry, MMTS BUE 3/5, BLE 0 Results & Data Results & Data Vital Signs (Past 12 Hours) Vital Signs Temp Pulse Pulse Resp BP BP Pulse Ox 09/06/24 00:30 86 22 129/91 91 09/06/24 00:15 88 22 119/85 91 09/06/24 00:07 86 22 133/91 92 09/05/24 23:30 84 20 118/71 92 09/05/24 23:30 87 22 118/71 92 09/05/24 23:15 87 22 99/71 L 92 09/05/24 23:01 87 20 99/70 L 91 09/05/24 23:01 88 18 99/70 L 93 09/05/24 22:46 93 H 18 93 09/05/24 22:43 93 H 18 97/67 L 93 09/05/24 22:05 37.3 C 94 H 20 107/70 94 09/05/24 21:57 94 H 20 107/70 94 09/05/24 21:53 92 H O2 Del Method 09/06/24 00:30 Room Air 09/06/24 00:15 Room Air 09/06/24 00:07 Room Air 09/05/24 23:30 Room Air 09/05/24 23:30 Room Air 09/05/24 23:15 Room Air 09/05/24 23:01 Room Air 09/05/24 23:01 Room Air 09/05/24 22:46 Room Air 09/05/24 22:43 Room Air 09/05/24 22:05 Room Air 09/05/24 21:57 Room Air 09/05/24 21:53 Laboratory Results Laboratory Results WBC 16.75 K/ul (4.8-10.8) H 09/05/24 22:32 RBC 4.05 M/uL (4.70-6.10) L 09/05/24 22:32 Hgb 9.1 g/dl (14.0-18.0) L 09/05/24 22:32 Hct 30.4 % (42.0-52.0) L 09/05/24 22:32 MCV 75.1 fL (80.0-100.0) L 09/05/24 22:32 MCH 22.5 pg (25.0-34.0) L 09/05/24 22:32 MCHC 29.9 g/dL (32.0-36.0) L 09/05/24 22:32 RDW Std Deviation 45.9 fL (36.4-46.3) 09/05/24 22:32 RDW Coeff of Adelia 17.2 % (11.5-14.5) H 09/05/24 22:32 Plt Count 276 K/uL (130-400) 09/05/24 22:32 MPV 9.4 fL (9.4-12.4) 09/05/24 22:32 Immature Gran % (Auto) 0.5 % 09/05/24 22: Neut % (Auto) 82.4 % 09/05/24 22:32 Lymph % (Auto) 8.6 % 09/05/24:32 [place] % (Auto) 7.8 % 09/05/24 22: Eos % (Auto) 0.4 % 09/05/24: Baso % (Auto) 0.3 % 09/05/24: Neut # (Auto) 13.80 K/uL (1.40-6.50) H 09/05/24 22: Lymph # (Auto) 1.44 K/uL (1.20-3.40) 09/05/24 22: [place] # (Auto) 1.31 K/uL (0.11-0.59) H 09/05/24: Eos # (Auto) 0.07 K/uL (0.00-0.50) 09/05/24 22: Baso # (Auto) 0.05 K/uL (0.00-0.20) 09/05/24: Immature Gran # (Auto) 0.08 K/uL (0.01-0.20) 09/05/24 22:32 Sodium 138 mmol/L (136-145) 09/05/24 22:32 Potassium 3.2 mmol/L (3.5-5.1) L 09/05/24 22:32 Chloride 106 mmol/L (98-107) 09/05/24 22:32 Carbon Dioxide 25 mmol/L (21-32) 09/05/24 22:32 Anion Gap 7 (3-11) 09/05/24 22:32 BUN 9 mg/dl (6-23) 09/05/24 22: Creatinine 0.51 mg/dl (0.6-1.4) L 09/05/24 22:32 Est Cr Clr Drug Dosing 200.1 ml/min 09/05/24 22:32 eGFR 125.85 09/05/24 22:32 BUN/Creatinine Ratio 17.6 (10-20) 09/05/24 22: Glucose 104 mg/dl (70-99(Fasting)) H 09/05/24 22:32 Lactate 0.8 mmol/L (0.4-2.0) 09/05/24 22:32 Calcium 8.4 mg/dl (8.6-10.3) L 09/05/24 22:32 Magnesium 1.7 mg/dl (1.7-2.4) 09/05/24 22:32 Total Bilirubin 1.0 mg/dl (0.2-1.0) 09/05/24 22:32 Direct Bilirubin 0.2 mg/dl (0-0.2) 09/05/24 22:32 AST 13 U/L (13-39) 09/05/24 22:32 ALT 4 U/L (7-52) L 09/05/24 22:32 Alkaline Phosphatase 110 U/L (34-104) H 09/05/24 22:32 Troponin I High Sens 4.7 pg/ml (0-20) 09/05/24 22:32 Total Protein 6.6 gm/dl (6.0-8.3) 09/05/24 22:32 Albumin 3.3 gm/dl (3.4-5.0) L 09/05/24 22:32 Procalcitonin 0.09 ng/ml (0-0.5) 09/05/24 22:32 Urine Color [place] 09/05/24 23:11 Urine Appearance Turbid (Clear) A 09/05/24 23:11 Urine pH 7.5 (4.5-7.5) 09/05/24 23:11 Ur Specific [place] 1.023 (1.000-1.030) 09/05/24 23:11 Urine Protein 2+ (Negative) H 09/05/24 23:11 Urine Glucose (UA) Negative (Negative) 09/05/24 23:11 Urine Ketones Trace (Negative) H 09/05/24 23:11 Urine Blood 3+ (Negative) H 09/05/24 23:11 Urine Nitrite Negative (Negative) 09/05/24 23:11 Urine Bilirubin Negative (Negative) 09/05/24 23:11 Urine Urobilinogen Positive (Negative) H 09/05/24 23:11 Ur Leukocyte Esterase 3+ (Negative) H 09/05/24 23:11 Urine WBC (Auto) >50 /hpf (0-5) H 09/05/24 23:11 Urine RBC (Auto) >20 /hpf (0-2) H 09/05/24 23:11 U Hyaline Cast (Auto) 6-10 /lpf (0-2) H 09/05/24 23:11 U Epithel Cells (Auto) 0-2 /hpf (0-2) 09/05/24 23:11 Urine Bacteria (Auto) 1+ (None Seen) H 09/05/24 23:11 Urine Yeast Present (None Prsent) A 09/05/24 23:11 Impressions Chest X-Ray 09/05/24 22:32 Exam(s): XR CXR 1 VIEW EXAM: XR Chest, 1 View CLINICAL HISTORY: Reason for exam: Sepsis. TECHNIQUE: Frontal view of the chest. COMPARISON: 09/01/2024. FINDINGS: There is a poor inspiratory effort. Lungs: There is a right basilar infiltrate.. Pleural space: No pleural effusion is seen. No pneumothorax. Heart: Heart is top normal in size.. Mediastinum: Unremarkable. Bones/joints: There are degenerative changes in the spine.. IMPRESSION: There is a new right basilar infiltrate. Electronically signed by: Milton Storey MD 09/06/24 00:06 AM Diagnostic Findings EKG as per my interpretation :Rate 80, NSR, LAD, LAFB, T wave abnormalities inferior leads (1) Hypotension Hypotension type: unspecified hypotension type Qualified Code(s): I95.9 - Hypotension, unspecified
[2024-09-06] MEDS ORDERED: PROMETHAZINE 6.25 MG/50.25 ML BAG IV PRN (01:26)
[2024-09-06] MEDS ORDERED: ACETAMINOPHEN 1,000 MG/100 ML VIAL IV PRN (01:26)
--- NOTE | 2024-09-06 01:29 | CT Scan Report ---
EXAM: CT abd pelvis IV con only CLINICAL HISTORY: None TECHNIQUE: Contiguous axial images were obtained from the level of the diaphragm to the pubic symphysis without and with intravenous contrast. Coronal and sagittal reconstructions were likewise performed and indicated to increase the sensitivity for detecting clinically relevant pathology. If IV contrast material had not been administered, the likelihood of detecting abnormalities relevant to the patient's condition would have been substantially decreased. CT scan was performed according to ALARA (as low as reasonable achievable). COMPARISON: 01 sep 2024 FINDINGS: Consolidation is noted involving basal segment of right lower lobe. Multiple atelectatic bands are noted involving basal segment of both lower lobes. The liver is normal in size and attenuation. No focal liver lesions are seen. There is no intra or extrahepatic biliary ductal dilatation. Hepatic vasculature is patent. The gallbladder is removed. The spleen, pancreas, and adrenal glands are unremarkable. The kidneys are normal in size and attenuation. There is no hydronephrosis or perinephric fat stranding. Right kidney show nonobstructing calculus of size 4mm in upper calyx.. Left kidney show nonobstructing calculus of size 3mm, 4mm and 6 mm in middle calyx The ureters are normal in caliber and no ureteral calculi are seen. The bladder is normal in contour. Suprapubic cathetarisation is seen in situ. Pelvic viscera are unremarkable. No focal or diffuse bowel wall thickening or evidence of bowel obstruction is identified. The appendix is visualized in the right lower quadrant and appears within normal limits. Abdominal and pelvic vasculature is patent. No adenopathy or fluid collections are seen. No aggressive appearing osseous lesions are identified. IMPRESSION: Consolidation is noted involving basal segment of right lower lobe. -increased. Multiple atelectatic bands are noted involving basal segment of both lower lobes. -stable. Bilateral multiple non-obstructing renal calculi.-stable. No other new interval abnormality since prior study. Electronically signed by Jutsin Melgar 09-06-2024 01:29 AM
[2024-09-06] MEDS: LORazepam 1 MG/1 ML SYR ED Inj Use IV STA (01:31)
[2024-09-06] MEDS: ACETAMINOPHEN 1,000 MG/100 ML VIAL IV STA (01:32)
--- NOTE | 2024-09-06 01:32 | CT Scan Report ---
EXAM: CT angio chest PE protocol CLINICAL HISTORY: None TECHNIQUE: Contiguous axial images were obtained from the neck base through the upper abdomen following intravenous administration of iodinated contrast material. Angiographic images were processed, 3D MIP images were acquired for interpretation. If IV contrast material had not been administered, the likelihood of detecting abnormalities relevant to the patient's condition would have been substantially decreased. Coronal and sagittal 3-D MIPs were likewise performed and indicated to increase the sensitivity of detectin diffuse clinically relevant pathology. CT scan was performed according to ALARA (as low as reasonably achievable). COMPARISON: none FINDINGS: No evidence of central pulmonary embolism. Dense subpleural consolidation is noted involving the posterior basal segment of right lower lobe, posterior segment of right upper lobe. Possibility of infective etiology vs aspiration pneumonitis. Suggested clinical/lab correlation. Multiple subpleural subsegmental atelectatic changes are noted involving left lower lobe, inferior lingula. The central airways are patent. Pulmonary arteries are of normal size and configuration. No pleural effusion. The heart, aorta are of normal size and configuration. There are no appreciable coronary artery and aortic atherosclerotic calcifications. No pericardial effusion is identified. The thyroid is unremarkable. No mediastinal, hilar, or axillary lymphadenopathy is noted. No suspicious lytic or sclerotic osseous lesions are identified. IMPRESSION: 1. No evidence of pulmonary embolism. 2. Dense subpleural consolidation is noted involving the posterior basal segment of right lower lobe, posterior segment of right upper lobe. Possibility of infective etiology vs aspiration pneumonitis. Suggested clinical/lab correlation. 3. Multiple subpleural subsegmental atelectatic changes are noted involving left lower lobe, inferior lingula. Electronically signed by Justin Melgar 09-06-2024 01:32 AM
[2024-09-06] MEDS: NSS + 20MEQ KCL 20 MEQ/1,000 ML BAG IV ONE (01:55)
[2024-09-06] MEDS: VANCOMYCIN HCL 1,750 MG in SODIUM CHLORIDE 0.9% 500 ML IV ONE (01:55)
--- NOTE | 2024-09-06 04:18 | CT Scan Report ---
EXAM: CT cervical spine wo con CLINICAL HISTORY: None TECHNIQUE: Computed tomography of the cervical spine performed without intravenous contrast. Contiguous axial images were obtained from the skull base to T2, with sagittal and coronal reformatted images reconstructed from the axial data. CT scan was performed according to ALARA (as low as reasonably achievable). COMPARISON: - FINDINGS: Loss of cervical lordosis. Posterior spinal fixation device seen insitu from C3 to T1 level without any hardware complications. Cervical vertebral bodies are normal in height and alignment, with no evidence of fracture or subluxation. Lateral masses of C1 are symmetrical, and the dens is intact. Prevertebral soft tissues are not widened. The remaining suprahyoid and infrahyoid soft tissues in the neck are unremarkable. C2-C3: No disc bulge, mass effect on the cord or neuroforaminal narrowing. C3-C4: No disc bulge, mass effect on the cord or neuroforaminal narrowing. C4-C5: No disc bulge, mass effect on the cord or neuroforaminal narrowing. C5-C6: Mild reduction in disc space with intradiscal calcifications seen with partial fusion of the posterior elements. C6-C7: No disc bulge, mass effect on the cord or neuroforaminal narrowing. C7-T1: No disc bulge, mass effect on the cord or neuroforaminal narrowing. Thyroid gland appears unremarkable. IMPRESSION: 1. No acute fracture or subluxation in the cervical spine. 2. Loss of cervical lordosis. 3. Posterior spinal fixation device seen insitu from C3 to T1 level without any hardware complications. Electronically signed by Justin Melgar 09-06-2024 04:18 AM
[2024-09-06] MEDS ORDERED: LACTULOSE SYRUP 20 GM/30 ML UDC PO PRN (04:26)
[2024-09-06] MEDS: ALBUT/IPRATROP 3MG/0.5MG NEB 3 ML VIAL NEB STA (04:44)
[2024-09-06] MEDS: DOXYCYCLINE HYCLATE 100 MG in DEXTROSE 5% MINI-B 100 ML IV STA (06:00)
[2024-09-06] MEDS ORDERED: Nursing to Pharmacy Communication SCH ×2 (06:15→23:45)
--- NOTE | 2024-09-06 06:22 | Urology Consultation ---
Date of Consultation September 06, 2024 Assessment & Plan (1) Acute UTI: Patient has been admitted on the hospitalist service.: It appears patient has pneumonia we will defer treatment of this condition to the primary service From urology perspective we recommend the following: Appears of the patient has urinary tract infection he has been placed on broad-spectrum antibiotics in form of Zosyn Any bleeding from patient's suprapubic catheter could be secondary to a urinary tract infection with concomitant use of Eliquis (it appears that the primary service has placed Eliquis on hold for the present time and we will defer resuming this medication to their discretion) Patient does have yeast noted on his urinalysis and consideration can be given to placing the patient on antifungal but this will be deferred to the hospitalistthis was communicated with them -Appropriate cultures have been sent and antibiotics can be tailored based on these results The patient is unsure when his catheter is most recently changed. If patient continues to have significant pain or bleeding despite antibiotic administration, consideration be given to changing his catheter while he is hospitalized Long-term management of his catheter should be continued with his primary urologist upon discharge History of Present Illness Reason for Consultation: Suprapubic catheter pain/bleeding Attending Physician: Prosper Hermosillo MD History of Present Illness This is a 48-year-old male who presented to the emergency department secondary to some abdominal pain and a small amount of bleeding from his suprapubic catheter. He does not report any nausea, vomiting, or diarrhea. He denies any back or flank pain. He denies any fevers, shakes, or chills. 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 Urology has been asked to see the patient secondary to pain in his suprapubic catheter and concern for urinary tract infection. In addition there is reported some bleeding around the suprapubic catheter. It is nowhere the mention that the patient does take Eliquis for history of a pulmonary emboli. Did asked the patient the most recent time his suprapubic catheter was changed and he was unsure. He does note that it is managed by Dr. Howard of [facility] urology. Since admission to the hospital the patient has had labs and imaging which I independently reviewed. CT scan of the cervical spine showed no acute fractures or subluxations. Chest x-ray showed a right basilar infiltrate concerning for pneumonia. A CT scan of the chest showed no evidence of pulmonary emboli. The right lower lobe did demonstrate a consolidation concerning for pneumonia as noted on chest x-ray. CT scan of the abdomen pelvis again demonstrated consolidation of the right lower lobe. There are multiple nonobstructing kidney stones noted. The bladder appeared normal on the study. There is no hydronephrosis or perinephric fat stranding. CBC revealed white blood cell count was elevated 16.7. Hemoglobin and hematocrit are 9.1 and 30.4. Platelet count was normal. Chemistry profile showed sodium was normal with a potassium of 3.2. BUN and creatinine were both not elevated. Urinalysis showed turbid urine with pyuria with greater than 50 white blood cells per high-power field. There is 1+ bacteria on the study as well as 3+ leukocyte Estrace. The specimen was negative for nitrites. Yeast was noted on this study as well. At the time of my interview the patient was resting comfortably in bed and is in no distress. Allergies Allergy/AdvReac Type Severity Reaction Status Date / Time Opioids - Morphine Analogues AdvReac severe Verified 05/17/24 15:46 bradycardia Home Medications Medication Instructions Recorded Confirmed Type albuterol sulfate 2.5 mg/3 mL 2.5 mg inhalation Q4H PRN 08/26/24 08/26/24 History (0.083 %) solution for nebulization Shortness Of Breath Or Wheezing apixaban 5 mg tablet (Eliquis) 5 mg PO BID 08/26/24 08/26/24 History ascorbic acid (vitamin C) 500 mg 500 mg PO DAILY 08/26/24 08/26/24 History tablet (Vitamin C) baclofen 10 mg tablet 20 mg PO TID PRN muscle spasms 08/26/24 08/26/24 History bisacodyl 10 mg rectal suppository 10 mg [place] BID 08/26/24 08/26/24 History budesonide-formoterol HFA 160 2 puff inhalation BID 08/26/24 08/26/24 History mcg-4.5 mcg/actuation aerosol inhaler docusate sodium 100 mg capsule 100 mg PO BID PRN Constipation 08/26/24 08/26/24 History ferrous sulfate 325 mg (65 mg 325 mg PO DAILY 08/26/24 08/26/24 History iron) tablet,delayed release hydroxyzine HCl 25 mg tablet 25 mg PO DAILY PRN Anxiety 08/26/24 08/26/24 History lactulose 10 gram/15 mL oral 20 g PO TID PRN Constipation 08/26/24 08/26/24 History solution lidocaine 5 % topical patch 1 patch topical DAILY PRN Pain 08/26/24 08/26/24 History midodrine 10 mg tablet 10 mg PO TID PRN Hypotension 08/26/24 08/26/24 History multivitamin 1 tab PO DAILY 08/26/24 08/26/24 History nortriptyline 25 mg capsule 25 mg PO HS 08/26/24 08/26/24 History oxybutynin chloride 10 mg 10 mg PO DAILY 08/26/24 08/26/24 History tablet,extended release 24 hr pantoprazole 40 mg tablet,delayed 40 mg PO DAILY 08/26/24 08/26/24 History release sennosides 8.6 mg-docusate sodium 2 tab PO HS 08/26/24 08/26/24 History 50 mg tablet (Senexon-S) tiotropium bromide 2.5 2 puff inhalation DAILY 08/26/24 08/26/24 History mcg/actuation mist for inhalation (Spiriva Respimat) Patient History Medical History Acute UTI Abdominal pain Aspiration pneumonitis Pneumonia Paraplegia Surgical History No pertinent past surgical history Social History Smoking Status: Former smoker Tobacco Type: Cigarettes and Smokeless Tobacco (Dip or Chew) Cigarettes Per Day: 1/2ppd; Second Hand Exposure: Yes; Do You Dip or Chew Tobacco: Yes; Hx Alcohol Use: Yes Alcohol type: hard liquor Hx Substance Use: Yes Non-Prescribed Medications: Crack / Cocaine and Marijuana Last Used Substance: Unknown Preferred Language: Malay Communication Ability: Effective Communication Ability Comment: difficulty writing Assembly Hand Required: No Beliefs That Will Affect Care: None Current Living Situation: Alone Current Living Situation Comment: lives home with brother. has 24 hr caregivers Feels Safe at Home: Yes Assistive Devices: Other Review of Systems Review of Systems: All systems reviewed & are unremarkable except as noted in HPI & below Physical Exam Constitutional: no acute distress Eyes: no conjunctival abnormality ENMT: Ears: no hearing impairment Oral mucosas dry Neck: trachea midline Respiratory: Breath sounds are decreased at the bases. There is no wheezing or use of accessory muscles Cardiovascular: Rate/Rhythm: regular rate and regular rhythm Gastrointestinal (Abdomen): Abdomen is soft and nondistended. Patient did have some slight tenderness to palpation near his suprapubic catheter Musculoskeletal: Musculature of extremities shows atrophy consistent with history of quadriplegia Genitourinary: Patient's suprapubic catheter was examined. It is draining yellow urine. I do not appreciate any blood or clots in the collection bag. Suprapubic catheter site itself had a small amount of surrounding erythema but there is no gross purulence noted at the time of my exam. There is no active bleeding or visible bloody drainage at the time my exam however there was a small amount of blood on the dressing surrounding the suprapubic catheter. Results & Data Vital Signs (Past 12 Hours) Vital Signs Temp Pulse Pulse Pulse Resp BP BP 09/06/24 05:15 69 09/06/24 04:57 09/06/24 04:44 67 18 09/06/24 04:00 36.6 C 62 16 116/82 09/06/24 03:30 09/06/24 03:15 09/06/24 03:03 09/06/24 02:51 80 09/06/24 02:45 74 17 122/86 09/06/24 02:42 73 19 09/06/24 02:30 126/88 09/06/24 02:02 70 09/06/24 01:51 72 19 09/06/24 01:42 76 16 09/06/24 01:36 75 15 09/06/24 01:30 141/96 H 09/06/24 01:15 84 18 134/93 09/06/24 01:00 82 19 122/88 09/06/24 00:30 86 22 129/91 09/06/24 00:15 88 22 119/85 09/06/24 00:07 86 22 133/91 09/05/24 23:30 84 20 118/71 09/05/24 23:30 87 22 118/71 09/05/24 23:15 87 22 99/71 L 09/05/24 23:01 87 20 99/70 L 09/05/24 23:01 88 18 99/70 L 09/05/24 22:46 93 H 18 09/05/24 22:43 93 H 18 97/67 L 09/05/24 22:05 37.3 C 94 H 20 107/70 09/05/24 21:57 94 H 20 107/70 09/05/24 21:53 92 H Pulse Ox O2 Del Method 09/06/24 05:15 09/06/24 04:57 Room Air 09/06/24 04:44 95 Room Air 09/06/24 04:00 96 Room Air 09/06/24 03:30 94 09/06/24 03:15 92 09/06/24 03:03 91 09/06/24 02:51 09/06/24 02:45 92 09/06/24 02:42 92 09/06/24 02:30 09/06/24 02:02 09/06/24 01:51 93 Room Air 09/06/24 01:42 90 09/06/24 01:36 90 09/06/24 01:30 09/06/24 01:15 92 09/06/24 01:00 91 09/06/24 00:30 91 Room Air 09/06/24 00:15 91 Room Air 09/06/24 00:07 92 Room Air 09/05/24 23:30 92 Room Air 09/05/24 23:30 92 Room Air 09/05/24 23:15 92 Room Air 09/05/24 23:01 91 Room Air 09/05/24 23:01 93 Room Air 09/05/24 22:46 93 Room Air 09/05/24 22:43 93 Room Air 09/05/24 22:05 94 Room Air 09/05/24 21:57 94 Room Air 09/05/24 21:53 PG Care Time/CCT Total # of Minutes Spent Total Time Spent with Patient: Total time spent is greater than 50% in coordination of care (as documented) at patient's floor/unit and/or counseling patient: Coding Level of Care Code 61243 IN/OBS CONSULT LVL 5,80M Diagnoses Acute UTI N39.0
[2024-09-06 07:03] LABS: Amphetamines+Metham, Urine Pos (Neg); Barbiturates, Urine Neg (Neg); Benzodiazepine, Urine Neg (Neg); Cocaine, Urine Neg (Neg); Fentanyl, Urine Neg (Neg); MDMA (Ecstacy), Urine Neg (Neg); Marijuana, Urine Pos (Neg); Methadone, Urine Neg (Neg); Opiate, Urine Pos (Neg); Phencyclidine, Urine Neg (Neg)
[2024-09-06 07:57] LABS: Calcium 8.8 mg/dl (8.6-10.3); Creatinine Clr Calc Pharmacy 242.5 ml/min; Potassium 3.6 mmol/L (3.5-5.1)
[2024-09-06] MEDS: FLUCONAZOLE 200 MG/100 ML BAG IV STA (08:00)
[2024-09-06 08:01] LABS: Basophils # (auto) 0.05 K/uL (0.00-0.20); Basophils % (auto) 0.3 %; Eosinophils # (auto) 0.08 K/uL (0.00-0.50); Eosinophils % (auto) 0.5 %; Hematocrit (blood only) 31.3 % (42.0-52.0); Hemoglobin 9.2 g/dl (14.0-18.0); Immature Granulocytes # (auto) 0.08 K/uL (0.01-0.20); Immature Granulocytes % (auto) 0.5 %; Lymphocytes # (auto) 1.46 K/uL (1.20-3.40); Lymphocytes % (auto) 9.3 %; Mean Corpuscular Hemoglobin 22.5 pg (25.0-34.0); Mean Corpuscular Hgb Conc 29.4 g/dL (32.0-36.0); Mean Corpuscular Volume 76.7 fL (80.0-100.0); Mean Platelet Volume 10.5 fL (9.4-12.4); Monocytes # (auto) 1.17 K/uL (0.11-0.59); Monocytes % (auto) 7.5 %; Neutrophils # (auto) 12.85 K/uL (1.40-6.50); Neutrophils % (auto) 81.9 %; Platelet Count 277 K/uL (130-400); RDW Coefficient of Variation 17.2 % (11.5-14.5); RDW Standard Deviation 47.7 fL (36.4-46.3); Red Blood Count 4.08 M/uL (4.70-6.10); White Blood Count 15.69 K/ul (4.8-10.8)
[2024-09-06] MEDS: MULTIVITAMIN TAB PO SCH (09:15)
[2024-09-06] MEDS: OXYBUTYNIN CHLORIDE XL 5 MG TABCR PO SCH (09:15)
[2024-09-06] MEDS: PANTOprazole 40 MG TAB PO SCH (09:15)
[2024-09-06] MEDS: FLUTICASONE/VILANTEROL 200/25MCG 14 PUFFS/INHALER INH SCH (09:16)
[2024-09-06] MEDS: UMECLIDINIUM BROMIDE 62.5MCG/BLISTER 7 PUFFS/INHALER INH SCH (09:16)
[2024-09-06] MEDS: oxyCODONE HCL IR 5 MG TAB (IMMEDIATE RELEASE) PO PRN (09:21)
[2024-09-06] MEDS: DOCUSATE SODIUM 100 MG CAP PO PRN (09:21)
[2024-09-06] MEDS: BACLOFEN 10 MG TAB PO PRN (09:21)
[2024-09-06] MEDS: bisacodyL 10 MG SUPP PR SCH (09:23)
[2024-09-06] MEDS: hydrOXYzine HCl 10 MG TAB PO PRN (09:23)
[2024-09-06] MEDS: PIPERACILLIN/TAZOBACTAM 4.5 GM/100 ML BAG IV SCH (09:40)
--- NOTE | 2024-09-06 09:53 | Electrocardiogram Report ---
Test Reason : Blood Pressure : */* mmHG Vent. Rate : 87 BPM Atrial Rate : 87 BPM P-R Int : 182 ms QRS Dur : 80 ms QT Int : 362 ms P-R-T Axes : 17 -1 1 degrees QTcB Int : 435 ms Normal sinus rhythm Normal ECG When compared with ECG of 01-Sep-2024 18:42, Vent. rate has increased by 34 bpm Confirmed by Toi Wright ([id number]) on 09/06/2024 9:52:57 AM Referred By: REFERRED SELF Confirmed By: Toi Wright
--- NOTE | 2024-09-06 17:04 | Hospitalist Progress Note ---
Date of Service September 06, 2024 Assessment & Plan (1) Pneumonia involving right lung: Plan: Presented with hypotension and suspected to have right lower lobe pneumonia likely secondary to aspiration Recurrent pneumonia, possible aspiration, no sepsis CT of the chest showed dense subpleural consolidation involving the posterior basal segment of right lower lobe, posterior segment of right upper lobe. Possibly of infective etiology versus aspiration pneumonitis No evidence of pulmonary embolism She has been started with intravenous vancomycin and Zosyn Appreciate speech therapy input and recommendation He has been feeling better clinically No swallowing studies before Tuesday Await wound culture, blood and urine culture (2) Left sided abdominal pain: Plan: On Complaint left-sided abdominal pain and noted to have minimal bleeding from suprapubic catheter site as per the sister Has been complaining of worsening abdominal discomfort and bloody pubic catheter discharge CT scan of the abdomen pelvis showed consolidation involving the basal segment of right lower lobe, multiple atelectatic [place] bands involving the basal segment of both lower lobes and bilateral multiple nonobstructing renal stone Pain is better following admission (3) Acute UTI: Plan: Recurrent complicated UTIs, hx recurrent infections secondary to neurogenic bladder with chronic indwelling suprapubic catheter Noted to have minimal bleeding from the suprapubic catheter site UA was suggestive of infection and microbiology culture showed Georgina albicans 1/ of this month Likely has acute UTI and has been getting intravenous Zosyn and also oral fluconazole (4) Suprapubic catheter: Plan: Bleeding from suprapubic catheter site Suprapubic catheter pain/bleeding; history Eliquis Rx for history saddle PE, hemoglobin at baseline Appreciate urology input and recommendation (5) Hypotension: Plan: Secondary to hypovolemia History hypotension secondary to 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 IVF, continue midodrine as needed Blood pressure remains on the lower side at 102/73 (6) 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 SCDs while Eliquis on hold Eliquis has been restarted since suprapubic bleeding is stopped and cervical spine CT did not show any bleeding Full code Patient sister requesting updates from provider. Ms. Lyn Fried, contact #[phone]. Text document was generated using [employer] voice recognition software. It may contain grammatical or spelling errors. Kindly contact undersigned for clarification of any documentation item in question. Admission and Anticipated Discharge Date Admission Date: September 06, 2024 Subjective 09/06/2024 The patient was seen and examined in medical telemetry unit He has been feeling little better since admission Complains to her back pain and denies any problem with swallowing No fever and/or chills Review of Systems Review of Systems: All systems reviewed and are unremarkable except as noted below Physical Exam Physical Exam: Lying in bed with minimal distress Constitutional: + ill appearing and average body habitus Eyes: PERRL, conjunctivae normal, anicteric sclerae ENMT: external ear and nose normal, oropharynx normal Neck: trachea midline, no thyromegaly Respiratory: no respiratory distress Auscultation: + diminished lung sounds and + crackles ( minimal crackles at the bases) Cardiovascular: Rate/Rhythm: regular rate and regular rhythm; not tachycardic Heart Sounds: normal S1 and normal S2; no murmur Extremities: no edema Gastrointestinal (Abdomen): Inspection/Auscultation: normal bowel sounds; abdomen not distended Percussion/Palpation: + abdomen tender ( minimally tender around suprapubic catheter site) and abdomen soft Musculoskeletal: No acute arthritis involving any of the joint Neurologic: Quadriplegia from traumatic cervical cord injury in the past Lymphatic: no cervical or axillary lymphadenopathy Results & Data Results & Data Vital Signs (Past 12 Hours) Vital Signs Temp Pulse Pulse Resp BP Pulse Ox O2 Del Method 09/06/24 16:17 37 C 84 16 102/73 93 Room Air 09/06/24 14:39 74 09/06/24 11:12 36.6 C 88 20 111/76 94 Room Air 09/06/24 10:58 Room Air 09/06/24 07:11 73 09/06/24 07:07 36.4 C L 65 20 105/75 95 Room Air 09/06/24 05:15 69 Laboratory Results Short CBC 09/05/24 09/06/24 Range/Units 22:32 06:37 WBC 16.75 H 15.69 H (4.8-10.8) K/ul Hgb 9.1 L 9.2 L (14.0-18.0) g/dl Hct 30.4 L 31.3 L (42.0-52.0) % Plt Count 276 277 (130-400) K/uL BMP 09/05/24 09/06/24 22:32 06:37 Sodium 138 139 Potassium 3.2 L 3.6 Chloride 106 108 H Carbon Dioxide 25 25 BUN 9 8 Creatinine 0.51 L 0.42 L Glucose 104 H 102 H Calcium 8.4 L 8.8 Liver Function 09/05/24 Range/Units 22:32 Total Bilirubin 1.0 (0.2-1.0) mg/dl Direct Bilirubin 0.2 (0-0.2) mg/dl AST 13 (13-39) U/L ALT 4 L (7-52) U/L Alkaline Phosphatase 110 H (34-104) U/L Albumin 3.3 L (3.4-5.0) gm/dl Urine 09/05/24 Range/Units 23:11 Urine Color [place] Urine Appearance Turbid A (Clear) Urine pH 7.5 (4.5-7.5) Ur Specific [place] 1.023 (1.000-1.030) Urine Protein 2+ H (Negative) Urine Glucose (UA) Negative (Negative) Medications Administered Current Inpatient Medications Baclofen (Baclofen 10 Mg Tab) 10 mg PO TID PRN PRN Reason: muscle spasms Stop: 10/06/24 04:12 Last Admin: 09/06/24 16:24 Dose: 10 mg Bisacodyl (Bisacodyl 10 Mg Supp) 10 mg MD BID [facility] Stop: 10/06/24 08:59 Last Admin: 09/06/24 09:23 Dose: Not Given Docusate Sodium (Docusate Sodium 100 Mg Cap) 100 mg PO BID PRN PRN Reason: Constipation Stop: 10/06/24 04:12 Last Admin: 09/06/24 09:21 Dose: 100 mg Fluconazole (Fluconazole 100 Mg Tab) 200 mg PO QAM [facility] Stop: 09/17/24 08:59 Fluticasone/Vilanterol (Fluticasone/Vilanterol 200/25mcg 14 Puffs/Inhaler) 1 puffs INH DAILY [facility]; Protocol Stop: 10/06/24 08:59 Last Admin: 09/06/24 09:16 Dose: 1 puffs Hydroxyzine HCl (Hydroxyzine Hcl 10 Mg Tab) 10 mg PO QID PRN PRN Reason: Anxiety Stop: 10/06/24 03:06 Last Admin: 09/06/24 09:23 Dose: 10 mg Promethazine HCl (Phenergan) 6.25 mg in 50.25 mls @ 201 mls/hr IV Q6H PRN PRN Reason: Nausea And Vomiting Stop: 10/06/24 01:25 Acetaminophen (Ofirmev) 1,000 mg in 100 mls @ 400 mls/hr IV Q8H PRN PRN Reason: pain/fever Stop: 09/09/24 01:25 Piperacillin Sod/Tazobactam Sod (Zosyn) 4.5 gm in 100 mls @ 25 mls/hr IV Q8H [facility]; Protocol Stop: 09/11/24 06:59 Last Admin: 09/06/24 16:20 Dose: 25 mls/hr Lactulose (Lactulose Syrup 20 Gm/30 Ml Udc) 20 gm PO TID PRN PRN Reason: Constipation Stop: 10/06/24 04:25 Midodrine (Midodrine Hcl 10 Mg Tab) 10 mg PO TID PRN PRN Reason: Hypotension Stop: 10/06/24 04:12 Multivitamins (Multivitamin Tab) 1 tab PO DAILY [facility] Stop: 10/06/24 08:59 Last Admin: 09/06/24 09:15 Dose: 1 tab Nortriptyline HCl (Nortriptyline Hcl 25 Mg Cap) 25 mg PO HS [facility] Stop: 10/06/24 20:59 Oxybutynin Chloride (Oxybutynin Chloride Xl 5 Mg Tabcr) 10 mg PO DAILY [facility] Stop: 10/06/24 08:59 Last Admin: 09/06/24 09:15 Dose: 10 mg Oxycodone HCl (Oxycodone Hcl Ir 5 Mg Tab (Immediate Release)) 5 mg PO Q8H PRN PRN Reason: Pain Stop: 09/20/24 04:29 Last Admin: 09/06/24 16:24 Dose: 5 mg Pantoprazole Sodium (Pantoprazole 40 Mg Tab) 40 mg PO DAILY [facility] Stop: 10/06/24 08:59 Last Admin: 09/06/24 09:15 Dose: 40 mg Senna/Docusate Sodium (Docusate Sodium/Senna 50/8.6mg Tab) 2 tab PO HS [facility] Stop: 10/06/24 20:59 Umeclidinium [place] (Umeclidinium [place] 62.5mcg/Blister 7 Puffs/Inhaler) 1 puffs INH DAILY [facility] Stop: 10/06/24 08:59 Last Admin: 09/06/24 09:16 Dose: 1 puffs (1) Pneumonia involving right lung Lung location: lower lobe of lung Pneumonia type: due to unspecified organism Qualified Code(s): J18.9 - Pneumonia, unspecified organism (5) Hypotension Hypotension type: unspecified hypotension type Qualified Code(s): I95.9 - Hypotension, unspecified
[2024-09-06] MEDS: DOCUSATE SODIUM/SENNA 50/8.6MG TAB PO SCH (21:21)
[2024-09-06] MEDS: NORTRIPTYLINE HCL 25 MG CAP PO SCH (21:21)
[2024-09-06] MEDS: diphenhydrAMINE 2%/ZINC 0.1% CREAM 28.4GM TUBE EXT SCH (21:21)
[2024-09-06] MEDS: NITROGLYCERIN SL 0.4 MG/TAB TAB SL STA (23:18)
[2024-09-06] MEDS ORDERED: NITROGLYCERIN SL 0.4 MG/TAB TAB SL PRN (23:40)
--- NOTE | 2024-09-06 23:40 | Communication Note ---
Date of Service: September 06, 2024 Patient had substernal pain intermittently relieved by nitroglycerin as per RN. EKG as per my interpretation : Rate 90, NSR, LAD, LAFB, T wave abnormalities inferior leads AP Chest pain Rule out ACS given relief with nitroglycerin Follow troponin TTE Cardiology consult if with troponin elevation IV heparin for now in place of patient Eliquis (has not been given since admission due to transient bleeding from suprapubic catheter site; no more bleeding over site as per RN)
[2024-09-06 23:48] LABS: Partial Thromboplastin Time 28 Seconds (21-31)
[2024-09-07] MEDS: ACETAMINOPHEN 1,000 MG/100 ML VIAL IV STA (00:40)
[2024-09-07] MEDS: NSS + 20MEQ KCL 20 MEQ/1,000 ML BAG IV ONE (01:02)
[2024-09-07] MEDS: HEPARIN 25000 UNIT/500 ML 25,000 UNITS/500 ML BAG IV SCH (02:27)
[2024-09-07 03:26] LABS: INR 1.1 (0.9-1.1); Prothrombin Time 11.6 Seconds (9.0-12.0)
[2024-09-07 03:28] LABS: Chol HDL Ratio 3.1 (0-5)
[2024-09-07 04:37] LABS: A calco-baum cmplx NotReported Not Detected (NotDetected); Bact fragilis Not Reported Not Detected (NotDetected); Blood Culture Id Panel See PCR Comment (NotDetected); C auris Not Reported Not Detected (NotDetected); Calbicans Not Reported Not Detected (NotDetected); Candida glabrata Not Reported Not Detected (NotDetected); Candida krusei Not Reported Not Detected (NotDetected); Cneoformans/gatti Not Reported Not Detected (NotDetected); Cparapsilosis Not Reported Not Detected (NotDetected); E cloacae compx Not Reported Not Detected (NotDetected); Efaecalis Not Reported Not Detected (NotDetected); Efaecium Not Reported Not Detected (NotDetected); Enterobacterales Not Reported Not Detected (NotDetected); Escherichia coli Not Reported Not Detected (NotDetected); H influenzae Not Reported Not Detected (NotDetected); K aerogenes Not Reported Not Detected (NotDetected); Koxytoca Not Reported Not Detected (NotDetected); Kpneumoniae grp Not Reported Not Detected (NotDetected); Lmonocyt Not Reported Not Detected (NotDetected); N meningitidis Not Reported Not Detected (NotDetected); P aeruginosa Not Reported Not Detected (NotDetected); Proteus spp Not Reported Not Detected (NotDetected); Salmonella spp Not Reported Not Detected (NotDetected); Staph lugdunensis Not Reported Not Detected (NotDetected); Staph spp. Not Reported DETECTED (NotDetected); Staphaureus Not Reported Not Detected (NotDetected); Staphepi Not Reported Not Detected (NotDetected); Stenmaltophilia Not Reported Not Detected (NotDetected); Strep agal(GrpB) Not Reported Not Detected (NotDetected); Strep pneum Not Reported Not Detected (NotDetected); Strep pyog (GrpA) Not Reported Not Detected (NotDetected); Strep spp Not Reported Not Detected (NotDetected)
[2024-09-07] MEDS: Heparin IV Adult Wt-Based Low-Dose *NO* INITIAL Bolus Protocol IV STA (05:11)
[2024-09-07 06:00] LABS: Staphylococcus spp. DETECTED (NotDetected)
[2024-09-07] MEDS: FLUCONAZOLE 100 MG TAB PO SCH (08:59)
[2024-09-07] MEDS: MIDODRINE HCL 10 MG TAB PO PRN (08:59)
[2024-09-07 09:22] LABS: BUN Creatinine Ratio 13.3 (10-20); Calcium 8.7 mg/dl (8.6-10.3); Creatinine Clr Calc Pharmacy 226.2 ml/min; Magnesium 1.8 mg/dl (1.7-2.4); Phosphorus 2.3 mg/dl (2.5-4.9); Potassium 3.5 mmol/L (3.5-5.1)
[2024-09-07 09:48] LABS: ANTI-Xa, UFH(UnfractionatedHep 0.41 IU/ml (0.3-0.7)
[2024-09-07 10:10] LABS: Hematocrit (blood only) 28.7 % (42.0-52.0); Hemoglobin 8.7 g/dl (14.0-18.0); Mean Corpuscular Hemoglobin 22.5 pg (25.0-34.0); Mean Corpuscular Hgb Conc 30.3 g/dL (32.0-36.0); Mean Corpuscular Volume 74.2 fL (80.0-100.0); Mean Platelet Volume 9.9 fL (9.4-12.4); Platelet Count 289 K/uL (130-400); RDW Coefficient of Variation 17.2 % (11.5-14.5); RDW Standard Deviation 45.5 fL (36.4-46.3); Red Blood Count 3.87 M/uL (4.70-6.10); White Blood Count 9.54 K/ul (4.8-10.8)
[2024-09-07] MEDS: APIXABAN 5 MG TABLET PO SCH (12:16)
--- NOTE | 2024-09-07 13:24 | Urology Progress Note ---
Date of Service September 07, 2024 Assessment & Plan (1) Suprapubic catheter: (2) Complicated UTI (urinary tract infection): Plan: Follow-up of suprapubic catheter site/irritation Patient afebrile, hemodynamically stable Labs today reviewedcreatinine 0.45, WBC 9.54, hemoglobin 8.7 Urine culture prelim with Georgina albicans Blood cultures 1 out of 4 with gram-positive cocci clusters Wound culture of abdomen with Staphylococcus aureus and Georgina tropicalis Recommend continue IV antibiotics and antifungals, follow cultures There was no active bleeding or drainage from SP site during exam Recommend continue with local wound care to SP catheter site Last suprapubic catheter exchange date is unknown Suprapubic catheter is patent and draining, no urgent need to exchange catheter Can consider exchanging suprapubic catheter during admission after a few days of antibiotics/antifungalsexchange can be done by nursing Ultimately, he will need follow-up with his established urologist for ongoing management and routine exchanges Continue supportive care and medical management per hospital medicine service will sign off, please contact our service with any additional questions or concerns Admission and Anticipated Discharge Date Admission Date: September 06, 2024 Subjective Patient seen and examined at bedside this afternoon. He is awake and sitting up in bed, eating lunch. RN at bedside assisting with feeding. Sanchez intact. No fever or chills. Patient is uncertain of last suprapubic catheter exchange, possibly about 1 month ago. Review of Systems Constitutional: as per Subjective / HPI Genitourinary: + as per Subjective / HPI Physical Exam Constitutional: no acute distress Respiratory: no respiratory distress and no labored breathing Gastrointestinal (Abdomen): Inspection/Auscultation: abdomen not distended Skin: Suprapubic catheter site with some circumferential erythema, no bleeding or drainage at present Neurologic: awake Psychiatric: Orientation: alert and oriented x 3 Genitourinary: Suprapubic catheter patent and draining clear yellow urine Results & Data Vital Signs (Past 12 Hours) Vital Signs Temp Pulse Pulse Resp BP BP Pulse Ox 09/07/24 11:08 09/07/24 11:03 37.4 C 75 18 134/92 95 09/07/24 07:24 36.9 C 94 H 16 143/99 H 95 09/07/24 07:00 81 09/07/24 03:24 37.6 C H 93 H 20 137/94 95 O2 Del Method 09/07/24 11:08 Room Air 09/07/24 11:03 Room Air 09/07/24 07:24 Room Air 09/07/24 07:00 09/07/24 03:24 Room Air PG Care Time/CCT Total # of Minutes Spent Total Time Spent with Patient: Total time spent is greater than 50% in coordination of care (as documented) at patient's floor/unit and/or counseling patient: Coding Level of Care Code 33891 SUB INP/OBS CARE 09/01MIN Diagnoses Suprapubic catheter Z93.59 Complicated UTI (urinary tract infection) N39.0
--- NOTE | 2024-09-07 13:27 | Hospitalist Progress Note ---
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 No trauma. He is being managed for the following: Pneumonia involving right lung: Bacteremia: 09/05 bl cx +ve for GPC in clusters (08/11), f/u other c/s. Infected wound x abdomen: cx showing Staphylococcus aureus and Georgina tropic tammy Sepsis POA: likely iso pneumonia, HR and WBC elevated at presentation. Presented with hypotension and noted to have right lower lobe pneumonia likely secondary to aspiration in imaging Recurrent pneumonia, possible aspiration, no sepsis CT of the chest showed dense subpleural consolidation involving the posterior basal segment of right lower lobe, posterior segment of right upper lobe. Possibly of infective etiology versus aspiration pneumonitis No evidence of pulmonary embolism. 09/06 MRSA +ve. c/w vanc and zosyn. Appreciate speech therapy input and recommendation, No swallowing studies before Tuesday He has been feeling better clinically Await wound culture, blood and urine culture Repeat bl cx in AM, await ID recs. Acute UTI: Recurrent complicated UTIs, hx recurrent infections secondary to neurogenic bladder with chronic indwelling suprapubic catheter Noted to have minimal bleeding from the suprapubic catheter site UA was suggestive of infection and microbiology culture showed Georgina albicans 09/01 of this month Likely has acute UTI and has been getting intravenous Zosyn and also oral fluconazole c/w antimicrobials as above for now, await ID recs. Left sided abdominal pain: Suprapubic catheter: On Complaint left-sided abdominal pain and noted to have minimal bleeding from suprapubic catheter site as per the sister Has been complaining of worsening abdominal discomfort and bloody suprapubic catheter discharge CT scan of the abdomen pelvis showed consolidation involving the basal segment of right lower lobe, multiple atelectatic Captique bands involving the basal segment of both lower lobes and bilateral multiple nonobstructing renal stone Pain is better following admission Uro on board, plan for exchange supra pubic cath this admission. Hypotension: Secondary to hypovolemia History hypotension secondary to 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 PRN IVF if w/ poor intake, continue midodrine as needed Blood pressure better Other chronic medical conditions: Continue with/resume home meds as when able. 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: Chronic quadriplegia secondary to traumatic cervical spine injury status post surgery 2020. CT of the cervical spine did not show any acute fracture or subluxation of the cervical spine. Continue pain management. Quadriplegia: Functional disability, concerns about patient assistance's ab ility to take care for disabled patient with multiple comorbidities. Sacral decubitus ulcer, stage IV: Wound care consult, wound picture reviewed. Unstageable pressure ulcers of R lower lateral leg and R lateral dorsal foot: iso quadriplegia. wound care consult. DVT prophylaxis: Patient on Eliquis Full code Full code Text document was generated using [employer] voice recognition software. It may contain grammatical or spelling errors. Kindly contact undersigned for clarification of any documentation item in question. Admission and Anticipated Discharge Date Admission Date: September 06, 2024 Subjective Patient was seen and examined at bedside. Patient was lying in bed, on room air, reports frequent spasmodic pain, which is chronic in nature per pt. Overnight patient complained of chest pain, troponin x 3 negative, EKG and serial EKG with no acute ST or T changes. Likely it is his chronic underlying pain condition rather than acute coronary syndrome. Continue to monitor over telemetry. c/w home eliquis. Physical Exam Physical Exam: Physical Exam: Lying in bed with minimal distress Constitutional: + ill appearing a nd average body cobos bitus Eyes: PERRL, conjunctiva e normal, anicteri c sclerae ENMT: external ear and n ose normal, oropha rynx normal Neck: trachea midline, n o thyromegaly Respiratory: no respiratory dis tress Auscultatio n: + diminished je ng sounds and + cr ackles ( minimal c rackles at the bas es) Cardiovascular: Rate/Rhythm: regul ar rate and regula r rhythm; not tach ycardic Heart Jocelyn nds: normal S1 and normal S2; no mur mur Extremities: no edema Gastrointestinal ( Abdomen): Inspection/Auscult ation: normal brigido l sounds; abdomen not distended Per cussion/Palpation: + abdomen tender ( minimally tender around suprapubic catheter site) an d abdomen soft Musculoskeletal: No acute arthrit is involving any o f the joint Neurologic: Quadriplegia fro m traumatic cervic al cord injury in the past Lymphatic: no cervical or axi llary lymphadenopa thy Results & Data Results & Data Vital Signs (Past 12 Hours) Vital Signs Temp Pulse Pulse Resp BP BP Pulse Ox 09/07/24 11:08 09/07/24 11:03 37.4 C 75 18 134/92 95 09/07/24 07:24 36.9 C 94 H 16 143/99 H 95 09/07/24 07:00 81 09/07/24 03:24 37.6 C H 93 H 20 137/94 95 O2 Del Method 09/07/24 11:08 Room Air 09/07/24 11:03 Room Air 09/07/24 07:24 Room Air 09/07/24 07:00 09/07/24 03:24 Room Air (1) Pneumonia involving right lung Lung location: lower lobe of lung Pneumonia type: due to unspecified organism Qualified Code(s): J18.9 - Pneumonia, unspecified organism
[2024-09-07] MEDS ORDERED: VANCOMYCIN CONSULT ACTIVE PRN (13:47)
--- NOTE | 2024-09-07 14:23 | Electrocardiogram Report ---
Test Reason : Blood Pressure : */* mmHG Vent. Rate : 81 BPM Atrial Rate : 81 BPM P-R Int : 188 ms QRS Dur : 86 ms QT Int : 392 ms P-R-T Axes : 26 0 13 degrees QTcB Int : 455 ms Normal sinus rhythm Possible Left atrial enlargement Borderline ECG When compared with ECG of 05-Sep-2024 22:15, No significant change was found Confirmed by Toi Wright ([id number]) on 09/07/2024 2:23:45 PM Referred By: REFERRED SELF Confirmed By: Toi Wright
--- NOTE | 2024-09-07 14:34 | Electrocardiogram Report ---
Test Reason : Blood Pressure : */* mmHG Vent. Rate : 92 BPM Atrial Rate : 92 BPM P-R Int : 172 ms QRS Dur : 84 ms QT Int : 368 ms P-R-T Axes : 9 -9 4 degrees QTcB Int : 455 ms Normal sinus rhythm Normal ECG When compared with ECG of 06-Sep-2024 01:09, (unconfirmed) No significant change was found Confirmed by Toi Wright ([id number]) on 09/07/2024 2:34:30 PM Referred By: REFERRED SELF Confirmed By: Toi Wright
--- NOTE | 2024-09-07 14:42 | Electrocardiogram Report ---
Test Reason : Blood Pressure : */* mmHG Vent. Rate : 63 BPM Atrial Rate : 63 BPM P-R Int : 184 ms QRS Dur : 94 ms QT Int : 416 ms P-R-T Axes : 5 -4 0 degrees QTcB Int : 425 ms Normal sinus rhythm Normal ECG When compared with ECG of 06-Sep-2024 22:24, (unconfirmed) No significant change was found Confirmed by Toi Wright ([id number]) on 09/07/2024 2:42:14 PM Referred By: REFERRED SELF Confirmed By: Toi Wright
[2024-09-07] MEDS: VANCOMYCIN HCL 1,750 MG in SODIUM CHLORIDE 0.9% 500 ML IV ONE (14:52)
--- NOTE | 2024-09-07 15:55 | Pharmacy Report ---
Pharmacy PK ABX Note - Date of Service September 07, 2024 - Assessment and Plan Assessment * Mr Fried is a 48 year old M receiving vancomycin/Zosyn/fluconazole for treatment of pna, abd wound, UTI, bacteremia. * Pertinent microbiologic data includes: * positive MRSA Nasal Swab * UCx: C.albicans >100,000 CFU/mL * Abdomen cx: S.aureus, C.tropicalis * BCx: GPC in 1/4 bottles * Extensive PMH including: COPD, HF, quadriplegia, chronic indwelling cath w/ frequent UTI, HCV, chronic sacral decubitus/leg osteo, hx MRSA Plan Vancomycin * Loading dose: 1750 mg IV x 1 dose @ 0200; re-loaded with 1750mg @ 1500 * Maintenance dose: 1750 mg IV every 12 hours * Regimen is predicted to achieve target AUC/BEATRIZ of 400-600 mg/L.hr. * Similar regimen appears to have been appropriate during past admission. * Random level ordered prior to the 4th maintenance dose Pharmacy will continue to follow and will adjust dose/frequency as necessary. Thank you. Pharmacy has transitioned to AUC monitoring for vancomycin. AUC/BEATRIZ is the preferred PK/PD target and is associated with decreased risk of nephrotoxicity compared to traditional trough targets.
[2024-09-07] MEDS: VANCOMYCIN HCL 1,750 MG in SODIUM CHLORIDE 0.9% 500 ML IV SCH (21:26)
[2024-09-08 07:48] LABS: Hematocrit (blood only) 29.4 % (42.0-52.0); Hemoglobin 8.8 g/dl (14.0-18.0); Mean Corpuscular Hemoglobin 22.4 pg (25.0-34.0); Mean Corpuscular Hgb Conc 29.9 g/dL (32.0-36.0); Mean Corpuscular Volume 74.8 fL (80.0-100.0); Mean Platelet Volume 9.8 fL (9.4-12.4); Platelet Count 281 K/uL (130-400); RDW Coefficient of Variation 16.9 % (11.5-14.5); RDW Standard Deviation 45.2 fL (36.4-46.3); Red Blood Count 3.93 M/uL (4.70-6.10); White Blood Count 7.17 K/ul (4.8-10.8)
[2024-09-08 08:27] LABS: Magnesium 1.9 mg/dl (1.7-2.4); Potassium 3.2 mmol/L (3.5-5.1)
[2024-09-08 08:32] LABS: Creatinine Clr Calc Pharmacy 202.6 ml/min; Phosphorus 2.6 mg/dl (2.5-4.9)
[2024-09-08] MEDS: POTASSIUM CHLORIDE CRTAB 20 MEQ TABCR PO STA (09:11)
--- NOTE | 2024-09-08 16:17 | Hospitalist Progress Note ---
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 No trauma. He is being managed for the following: Pneumonia involving right lung: Bacteremia: 09/05 bl cx +ve for GPC in clusters (08/11), f/u other c/s. Follow-up repeat blood culture 09/08. Infected wound x abdomen: cx showing Staphylococcus aureus and Georgina tropicalis Sepsis POA: likely iso pneumonia, HR and WBC elevated at presentation. Presented with hypotension and noted to have right lower lobe pneumonia likely secondary to aspiration in imaging Recurrent pneumonia, possible aspiration, no sepsis CT of the chest showed dense subpleural consolidation involving the posterior basal segment of right lower lobe, posterior segment of right upper lobe. Possibly of infective etiology versus aspiration pneumonitis No evidence of pulmonary embolism. 09/06 MRSA +ve. c/w vanc and zosyn. Appreciate speech therapy input and recommendation, No swallowing studies before Tuesday He has been feeling better clinically Await wound culture, blood and urine culture await ID recs. Acute UTI: Recurrent complicated UTIs, hx recurrent infections secondary to neurogenic bladder with chronic indwelling suprapubic catheter Noted to have minimal bleeding from the suprapubic catheter site UA was suggestive of infection and microbiology culture showed Georgina albicans 09/01 of this month Likely has acute UTI and has been getting intravenous Zosyn and also oral fluconazole c/w antimicrobials as above for now, await ID recs. Left sided abdominal pain: Suprapubic catheter: On Complaint left-sided abdominal pain and noted to have minimal bleeding from suprapubic catheter site as per the sister Has been complaining of worsening abdominal discomfort and bloody suprapubic catheter discharge CT scan of the abdomen pelvis showed consolidation involving the basal segment of right lower lobe, multiple atelectatic Captique bands involving the basal segment of both lower lobes and bilateral multiple nonobstructing renal stone Pain is better following admission Uro on board, plan for exchange supra pubic cath this admission. Hypotension: Secondary to hypovolemia History hypotension secondary to 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 PRN IVF if w/ poor intake, continue midodrine as needed Blood pressure better Other chronic medical conditions: Continue with/resume home meds as when able. 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: Chronic quadriplegia secondary to traumatic cervical spine injury status post surgery 2020. CT of the cervical spine did not show any acute fracture or subluxation of the cervical spine. Continue pain management. Quadriplegia: Functional disability, concerns about patient assistance's ability to take care for disabled patient with multiple comorbidities. Sacral decubitus ulcer, stage IV: Wound care consult, wound picture reviewed. Unstageable pressure ulcers of R lower lateral leg and R lateral dorsal foot: iso quadriplegia. wound care consult. DVT prophylaxis: Patient on Eliquis Full code Full code RN paged me stating that patient's Sister Lyn wants update. [phone]. she was given phone call, updated on patient's condition, answered all her questions. Text document was generated using [employer] voice recognition software. It may contain grammatical or spelling errors. Kindly contact undersigned for clarification of any documentation item in questi on. Admission and Anticipated Discharge Date Admission Date: September 06, 2024 Subjective Patient was seen and examined at bedside. Patient was lying in bed, on room air, Patient reports improvement in his baseline spasmodic pain. Overall patient feels better today, reports overall decreased baseline pain. Patient denies other complaints. Patient reports eating okay. Physical Exam Physical Exam: Physical Exam: Lying in bed with minimal distress Constitutional: + ill appearing a nd average body cobos bitus Eyes: PERRL, conjunctiva e normal, anicteri c sclerae ENMT: external ear and n ose normal, oropha rynx normal Neck: trachea midline, n o thyromegaly Respiratory: no respiratory dis tress Auscultatio n: + diminished je ng sounds and + cr ackles ( minimal c rackles at the bas es) Cardiovascular: Rate/Rhythm: regul ar rate and regula r rhythm; not tach ycardic Heart Jocelyn nds: normal S1 and normal S2; no mur mur Extremities: no edema Gastrointestinal ( Abdomen): Inspection/Auscult ation: normal brigido l sounds; abdomen not distended Per cussion/Palpation: + abdomen tender ( minimally tender around suprapubic catheter site) an d abdomen soft Musculoskeletal: No acute arthrit is involving any o f the joint Neurologic: Quadriplegia fro m traumatic cervic al cord injury in the past Lymphatic: no cervical or axi llary lymphadenopa thy Results & Data Results & Data Vital Signs (Past 12 Hours) Vital Signs Temp Pulse Pulse Resp BP Pulse Ox O2 Del Method 09/08/24 15:21 36.6 C 67 12 106/71 97 Room Air 09/08/24 13:00 75 09/08/24 12:01 36.6 C 66 12 125/85 97 Room Air 09/08/24 07:39 37 C 62 12 115/77 96 Room Air 09/08/24 07:00 Room Air 09/08/24 06:47 84 (1) Pneumonia involving right lung Lung location: lower lobe of lung Pneumonia type: due to unspecified organism Qualified Code(s): J18.9 - Pneumonia, unspecified organism
[2024-09-09 06:16] LABS: Hematocrit (blood only) 30.9 % (42.0-52.0); Hemoglobin 9.3 g/dl (14.0-18.0); Mean Corpuscular Hemoglobin 22.7 pg (25.0-34.0); Mean Corpuscular Hgb Conc 30.1 g/dL (32.0-36.0); Mean Corpuscular Volume 75.4 fL (80.0-100.0); Platelet Count 269 K/uL (130-400); RDW Coefficient of Variation 16.8 % (11.5-14.5); RDW Standard Deviation 45.9 fL (36.4-46.3); White Blood Count 5.71 K/ul (4.8-10.8)
[2024-09-09 06:34] LABS: Calcium 8.9 mg/dl (8.6-10.3); Magnesium 1.9 mg/dl (1.7-2.4); Potassium 3.5 mmol/L (3.5-5.1)
[2024-09-09 06:43] LABS: BUN Creatinine Ratio 6.1 (10-20); Creatinine Clr Calc Pharmacy 120.9 ml/min; Phosphorus 3.5 mg/dl (2.5-4.9)
[2024-09-09 06:52] LABS: Amphetamine Urine, Confirm 495 ng/mL (<250); Codeine Urine NEGATIVE ng/mL (<50); Hydrocodone Urine 115 ng/mL (<50); Hydromor Urine NEGATIVE ng/mL (<50); Marijuana Quant, GCMS Urine 40 ng/mL (<5); Methamphetamine, Ur Confirm 5936 ng/mL (<250); Morphine Urine NEGATIVE ng/mL (<50); Norhydrocodone Conf Ur 52 ng/mL (<50); Noroxycodone Urine NEGATIVE ng/mL (<50); Oxycodone Urine NEGATIVE ng/mL (<50); Oxymorph Urine NEGATIVE ng/mL (<50)
--- NOTE | 2024-09-09 09:54 | Pharmacy Report ---
Pharmacy PK ABX Note - Date of Service September 09, 2024 - Assessment and Plan Assessment 09/09: * Day # 3 vancomycin + zosyn. 09/05 blood cultures (+) Staph pettenkoferi in 08/11. 09/08 repeat blood cultures NGTD. Abdomen culture (+) MRSA and quang tropicalis. SCr increased ~ 2X baseline today (0.45-->0.82mg/dL). 09/07: * Mr Fried is a 48 year old M receiving vancomycin/Zosyn/fluconazole for treatment of pna, abd wound, UTI, bacteremia. * Pertinent microbiologic data includes: * positive MRSA Nasal Swab * UCx: C.albicans >100,000 CFU/mL * Abdomen cx: S.aureus, C.tropicalis * BCx: GPC in 08/11 bottles * Extensive PMH including: COPD, HF, quadriplegia, chronic indwelling cath w/ frequent UTI, HCV, chronic sacral decubitus/leg osteo, hx MRSA Plan Vancomycin * Current regimen: vancomycin 1750mg IV q12h * Random level this AM (~7.5h level), 24.3mcg/mL. Predicted to achieve ssAUC 719mg/L.hr - supratherapeutic. * Decrease dose to 1250mg IV q12h starting later this afternoon * Repeat level tomorrow AM given rapidly changing renal function. Pharmacy will continue to follow and will adjust dose/frequency as necessary. Thank you. Pharmacy has transitioned to AUC monitoring for vancomycin. AUC/BEATRIZ is the preferred PK/PD target and is associated with decreased risk of nephrotoxicity compared to traditional trough targets.
[2024-09-09] MEDS: VANCOMYCIN HCL 1,250 MG in SODIUM CHLORIDE 0.9% 250 ML IV SCH (12:03)
--- NOTE | 2024-09-09 13:09 | Hospitalist Progress Note ---
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 No trauma. He is being managed for the following: Pneumonia involving right lung: Bacteremia: 09/05 bl cx +ve for GPC in clusters (08/11), f/u other c/s. Follow-up repeat blood culture 09/08. Infected wound x abdomen: cx showing Staphylococcus aureus and Quang tropicalis Sepsis POA: likely iso pneumonia, HR and WBC elevated at presentation. CAUTI, POA Presented with hypotension and noted to have right lower lobe pneumonia likely secondary to aspiration in imaging Recurrent pneumonia, possible aspiration, no sepsis CT of the chest showed dense subpleural consolidation involving the posterior basal segment of right lower lobe, posterior segment of right upper lobe. Possibly of infective etiology versus aspiration pneumonitis No evidence of pulmonary embolism. 09/06 MRSA +ve. Blood cx on 09/05 showed 08/11 staph pettenkoferi Wound Cx from suprapubic catheter site growing MRSA and qaung tropicalis Blood cx 09/08- NGTD Urine Cx- Quang albicans c/w vanc and zosyn along with fluconazole He has been feeling better clinically Await ID reccs Left sided abdominal pain: hx of Suprapubic catheter: On Complaint left-sided abdominal pain and noted to have minimal bleeding from suprapubic catheter site as per the sister Has been complaining of worsening abdominal discomfort and bloody suprapubic catheter discharge CT scan of the abdomen pelvis showed consolidation involving the basal segment of right lower lobe, multiple atelectatic Captique bands involving the basal segment of both lower lobes and bilateral multiple nonobstructing renal stone Pain is better following admission Uro on board, plan for exchange supra pubic cath this admission. Hypotension: Secondary to hypovolemia History hypotension secondary to 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 PRN IVF if w/ poor intake, continue midodrine as needed Blood pressure better Other chronic medical conditions: Continue with/resume home meds as when able. 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: Chronic quadriplegia secondary to traumatic cervical spine injury status post surgery 2020. CT of the cervical spine did not show any acute fracture or subluxation of the cervical spine. Continue pain management. Quadriplegia: Functional disability, concerns about patient assistance's ability to take care for disabled patient with multiple comorbidities. Sacral decubitus ulcer, stage IV: Wound care consult, wound picture reviewed. Unstageable pressure ulcers of R lower lateral leg and R lateral dorsal foot: iso quadriplegia. wound care consult. DVT prophylaxis: Patient on Eliquis Full code Full code Time spent evaluating patient, direct bedside care, chart review, placing orders, interpretation of diagnostic studies, discussion with consultants, patient, and family members, as well as other required patient management activities is 50 minutes Please note the above document was generated using voice recognition software. It may contain grammatical, syntax or spelling errors. Any formal questions or concerns about the content, text or information contained within the body of this dictation should be directly addressed to the provider for clarification Admission and Anticipated Discharge Date Admission Date: September 06, 2024 Subjective Patient seen and examined at bedside. Comfortable; not in distress. Denies fever, chills, chest pain, shortness of breath, abdominal pain or urinary symptoms. No significant overnight events Review of Systems Review of Systems: All systems reviewed & are unremarkable except as noted in Subjective Physical Exam Physical Exam: Physical Exam: Constitutional: comfortable; not i n any distress Eyes: PERRL, conjunctiva e normal, anicteri c sclerae ENMT: external ear and n ose normal, oropha rynx normal Neck: trachea midline, n o thyromegaly Respiratory: no respiratory dis tress Auscultatio n: + diminished je ng sounds and + cr ackles ( minimal c rackles at the bas es) Cardiovascular: Rate/Rhythm: regul ar rate and regula r rhythm; not tach ycardic Heart Jocelyn nds: normal S1 and normal S2; no mur mur Extremities: no edema Gastrointestinal ( Abdomen): Inspection/Auscult ation: normal brigido l sounds; abdomen not distended Per cussion/Palpation: + abdomen tender ( minimally tender around suprapubic catheter site) an d abdomen soft Musculoskeletal: No acute arthrit is involving any o f the joint Neurologic: Quadriplegia fro m traumatic cervic al cord injury in the past Lymphatic: no cervical or axi llary lymphadenopa thy Results & Data Results & Data Vital Signs (Past 12 Hours) Vital Signs Temp Pulse Pulse Resp BP Pulse Ox O2 Del Method 09/09/24 11:05 36.7 C 65 16 105/70 97 Room Air 09/09/24 09:45 Room Air 09/09/24 07:22 36.5 C 64 18 111/75 96 Room Air 09/09/24 06:59 66 09/09/24 03:39 36.7 C 68 18 106/73 94 Room Air (1) Pneumonia involving right lung Lung location: lower lobe of lung Pneumonia type: due to unspecified organism Qualified Code(s): J18.9 - Pneumonia, unspecified organism
[2024-09-10 06:27] LABS: Basophils # (auto) 0.07 K/uL (0.00-0.20); Eosinophils # (auto) 0.43 K/uL (0.00-0.50); Eosinophils % (auto) 5.9 %; Hemoglobin 9.3 g/dl (14.0-18.0); Immature Granulocytes # (auto) 0.02 K/uL (0.01-0.20); Immature Granulocytes % (auto) 0.3 %; Lymphocytes # (auto) 1.88 K/uL (1.20-3.40); Lymphocytes % (auto) 25.6 %; Mean Corpuscular Hemoglobin 22.5 pg (25.0-34.0); Mean Corpuscular Volume 74.9 fL (80.0-100.0); Mean Platelet Volume 9.8 fL (9.4-12.4); Monocytes # (auto) 0.69 K/uL (0.11-0.59); Monocytes % (auto) 9.4 %; Neutrophils # (auto) 4.24 K/uL (1.40-6.50); Neutrophils % (auto) 57.8 %; Platelet Count 292 K/uL (130-400); RDW Standard Deviation 45.2 fL (36.4-46.3); Red Blood Count 4.14 M/uL (4.70-6.10); White Blood Count 7.33 K/ul (4.8-10.8)
[2024-09-10 06:40] LABS: BUN Creatinine Ratio 9.4 (10-20); Calcium 9.1 mg/dl (8.6-10.3); Creatinine Clr Calc Pharmacy 158.8 ml/min; Potassium 3.2 mmol/L (3.5-5.1)
--- NOTE | 2024-09-10 09:01 | Hospitalist Progress Note ---
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 No trauma. He is being managed for the following: Pneumonia involving right lung: Bacteremia: 09/05 bl cx +ve for GPC in clusters (08/11), f/u other c/s. Follow-up repeat blood culture 09/08. Infected wound x abdomen: cx showing Staphylococcus aureus and Quang tropicalis Sepsis POA: likely iso pneumonia, HR and WBC elevated at presentation. CAUTI, POA Presented with hypotension and noted to have right lower lobe pneumonia likely secondary to aspiration in imaging Recurrent pneumonia, possible aspiration, no sepsis CT of the chest showed dense subpleural consolidation involving the posterior basal segment of right lower lobe, posterior segment of right upper lobe. Possibly of infective etiology versus aspiration pneumonitis No evidence of pulmonary embolism. 09/06 MRSA +ve. Blood cx on 09/05 showed 08/11 staph pettenkoferi Wound Cx from suprapubic catheter site growing MRSA and quang tropicalis Blood cx 09/08- NGTD Urine Cx- Quang albicans c/w vanc and zosyn along with fluconazole He has been feeling better clinically ID consulted Left sided abdominal pain: hx of Suprapubic catheter: On Complaint left-sided abdominal pain and noted to have minimal bleeding from suprapubic catheter site as per the sister Has been complaining of worsening abdominal discomfort and bloody suprapubic catheter discharge CT scan of the abdomen pelvis showed consolidation involving the basal segment of right lower lobe, multiple atelectatic Captique bands involving the basal segment of both lower lobes and bilateral multiple nonobstructing renal stone Pain is better following admission Suprapubic catheter exchanged on September 10, 2024 Hypotension: Secondary to hypovolemia History hypotension secondary to 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 PRN IVF if w/ poor intake, continue midodrine as needed Blood pressure better Other chronic medical conditions: Continue with/resume home meds as when able. 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: Chronic quadriplegia secondary to traumatic cervical spine injury status post surgery 2020. CT of the cervical spine did not show any acute fracture or subluxation of the cervical spine. Continue pain management. Quadriplegia: Functional disability, concerns about patient assistance's ability to take care for disabled patient with multiple comorbidities. Sacral decubitus ulcer, stage IV: Wound care consult, wound picture reviewed. Unstageable pressure ulcers of R lower lateral leg and R lateral dorsal foot: iso quadriplegia. wound care consult. DVT prophylaxis: Patient on Eliquis Full code Full code Time spent evaluating patient, direct bedside care, chart review, placing orders, interpretation of diagnostic studies, discussion with consultants, patient, and family members, as well as other required patient management activities is 50 minutes Please note the above document was generated using voice recognition software. It may contain grammatical, syntax or spelling errors. Any formal questions or concerns about the content, text or information contained within the body of this dictation should be directly addressed to the provider for clarification Admission and Anticipated Discharge Date Admission Date: September 06, 2024 Subjective Patient seen and examined at bedside. Comfortable; not in distress. Denies fever, chills, chest pain, shortness of breath, abdominal pain or urinary symptoms. No significant overnight events Review of Systems Review of Systems: All systems reviewed & are unremarkable except as noted in Subjective Physical Exam Physical Exam: Physical Exam: Constitutional: comfortable; not i n any distress Eyes: PERRL, conjunctiva e normal, anicteri c sclerae ENMT: external ear and n ose normal, oropha rynx normal Neck: trachea midline, n o thyromegaly Respiratory: no respiratory dis tress Auscultatio n: + diminished je ng sounds and + cr ackles ( minimal c rackles at the bas es) Cardiovascular: Rate/Rhythm: regul ar rate and regula r rhythm; not tach ycardic Heart Jocelyn nds: normal S1 and normal S2; no mur mur Extremities: no edema Gastrointestinal ( Abdomen): Inspection/Auscult ation: normal brigido l sounds; abdomen not distended Per cussion/Palpation: + abdomen tender ( minimally tender around suprapubic catheter site) an d abdomen soft Musculoskeletal: No acute arthrit is involving any o f the joint Neurologic: Quadriplegia fro m traumatic cervic al cord injury in the past Lymphatic: no cervical or axi llary lymphadenopa thy Results & Data Results & Data Vital Signs (Past 12 Hours) Vital Signs Temp Pulse Pulse Resp BP Pulse Ox O2 Del Method 09/10/24 08:16 36.3 C L 61 12 116/80 96 Room Air 09/10/24 07:15 53 L 09/10/24 03:00 36.7 C 60 18 121/78 95 Room Air 09/10/24 00:00 70 09/09/24 23:00 100/66 09/09/24 22:48 36.7 C 75 18 88/59 L 94 Room Air (1) Pneumonia involving right lung Lung location: lower lobe of lung Pneumonia type: due to unspecified organism Qualified Code(s): J18.9 - Pneumonia, unspecified organism
--- NOTE | 2024-09-10 11:02 | Pharmacy Report ---
Pharmacy PK ABX Note - Date of Service September 10, 2024 - Assessment and Plan Assessment 09/10: * Vancomycin day 4: reviewed vancomycin level, predicting therapeutic AUC/BEATRIZ, continue current regimen. Serum creatinine trending back down today. 09/09: * Day # 3 vancomycin + zosyn. 09/05 blood cultures (+) Staph pettenkoferi in 08/11. 09/08 repeat blood cultures NGTD. Abdomen culture (+) MRSA and quang tropicalis. SCr increased ~ 2X baseline today (0.45-->0.82mg/dL). 09/07: * Mr Fried is a 48 year old M receiving vancomycin/Zosyn/fluconazole for treatment of pna, abd wound, UTI, bacteremia. * Pertinent microbiologic data includes: * positive MRSA Nasal Swab * UCx: C.albicans >100,000 CFU/mL * Abdomen cx: S.aureus, C.tropicalis * BCx: GPC in 08/11 bottles * Extensive PMH including: COPD, HF, quadriplegia, chronic indwelling cath w/ frequent UTI, HCV, chronic sacral decubitus/leg osteo, hx MRSA Plan Vancomycin * Current regimen: vancomycin 1750mg IV q12h * Regimen is predicted to achieve ssAUC 580mg/L.hr * Continue vancomycin 1250mg Q12H * Repeat level if continued beyond 48 hours or sooner if clinically indicated Pharmacy will continue to follow and will adjust dose/frequency as necessary. Thank you. Pharmacy has transitioned to AUC monitoring for vancomycin. AUC/BEATRIZ is the preferred PK/PD target and is associated with decreased risk of nephrotoxicity compared to traditional trough targets.
--- NOTE | 2024-09-10 15:49 | Infectious Disease Consult ---
Date of Service September 10, 2024 Telehealth Information I performed this visit using a real-time telehealth connection between my location and the patients location ([facility]). After connecting through interactive tele-video, patient was identified by name and date of and/or wristband check.Patient (or authorized healthcare senior account representative) was informed that this was a telemedicine visit and it was being conducted confidentially over secure lines. My office door was closed and no one else was present in the room with me.Patient (or authorized healthcare senior account representative) provided consent to proceed with the visit, expressed an understanding of privacy and security of the telemedicine visit, and gave permission to have a hospital senior account representative in the room in order to assist with the visit and to conduct portions of the visit, as needed. I informed the patient (or authorized healthcare senior account representative) that I reviewed their record and presented the opportunity for them to ask any questions regarding the visit today. The patient agreed to participate. Assessment & Plan (1) Pneumonia involving right lung: (2) Soft tissue infection: Plan: Assessment: Soft tissue infection around the SPC w/ MRSA R/o RLL PNA SNA in blood - contaminant L sided abd pain of unclear etiology less likely infectious in nature Funguria s/p SPC exchange Recommendations: - Stop vancomycin iv and zosyn after today for possible bacterial pneumonia (completing total 5 days of iv abx therapy) - Then, transition iv abx to either doxycycline 100 mg po bid or bactrim DS 1 tab po bid for possible soft tissue infection around the SPC site: last dose on 09/19/24 - 5 days of CAP -10-14 days of MRSA coverage - Ignore the Staph in blood: likel contaminant - No antifungal indicated for fungus in urine: stop fluconazole - D signing off I spent a total of 60 minutes coordinating, documenting, and providing care for this patient excluding time spent in the performance of separately billed servic es or time spent by another provider/QHP. History of Present Illness History of Present Illness This is a 48 y/o male ([place]), quadriplegic w/ chronic sacral decub ulcer secondary to traumatic Spinal cord injury at C1-C4 level status post surgery (2020), w/ a hx of chronic diastolic HF, HTN on as needed midodrine, saddle PE on Eliquis, COPD, recurrent UTI w/ neurogenic bladder s/p chronic indwelling suprapubic catheter, chronic anemia, chronic pain, anxiety/mood disorder, and substance abuse, and smoking, who presented to [facility] 09/05/24 for left abdominal pain of unclear etiology (x 2 weeks) and some bleeding and tenderness at the SPC ilnsertion site. No fever was noted but leukocytosis. CT showed dense subpleural consolidation is noted involving the posterior basal segment of right lower lobe, posterior segment of right upper lobe, but no obvious intra abdominal abnormalities. UA showed pyuria w/ but georgina on urine culture. SPC exchaged was exchanged: wound culture was collected from the SPC site growing MRSA and Georgina sp. Currently on zosyn, fluconazole and vancomycin iv Currently the patient is resting in bed comfortably. The patient reports pain in L side w/ fluctuating intensity: it comes and goes, aching, 6 out of 10. No obvious relieving or aggrevating factors. No n/v or diarrhea. He uses suppository for BM. No coughing, cp or sob. No f/c. Allergies Allergy/AdvReac Type Severity Reaction Status Date / Time Opioids - Morphine Analogues AdvReac severe Verified 05/17/24 15:46 bradycardia Home Medications Medication Instructions Recorded Confirmed Type albuterol sulfate 2.5 mg/3 mL 2.5 mg inhalation Q4H PRN 08/26/24 08/26/24 History (0.083 %) solution for nebulization Shortness Of Breath Or Wheezing apixaban 5 mg tablet (Eliquis) 5 mg PO BID 08/26/24 08/26/24 History ascorbic acid (vitamin C) 500 mg 500 mg PO DAILY 08/26/24 08/26/24 History tablet (Vitamin C) baclofen 10 mg tablet 20 mg PO TID PRN muscle spasms 08/26/24 08/26/24 History bisacodyl 10 mg rectal suppository 10 mg IN BID 08/26/24 08/26/24 History budesonide-formoterol HFA 160 2 puff inhalation BID 08/26/24 08/26/24 History mcg-4.5 mcg/actuation aerosol inhaler docusate sodium 100 mg capsule 100 mg PO BID PRN Constipation 08/26/24 08/26/24 History ferrous sulfate 325 mg (65 mg 325 mg PO DAILY 08/26/24 08/26/24 History iron) tablet,delayed release hydroxyzine HCl 25 mg tablet 25 mg PO DAILY PRN Anxiety 08/26/24 08/26/24 History lactulose 10 gram/15 mL oral 20 g PO TID PRN Constipation 08/26/24 08/26/24 History solution lidocaine 5 % topical patch 1 patch topical DAILY PRN Pain 08/26/24 08/26/24 History midodrine 10 mg tablet 10 mg PO TID PRN Hypotension 08/26/24 08/26/24 History multivitamin 1 tab PO DAILY 08/26/24 08/26/24 History nortriptyline 25 mg capsule 25 mg PO HS 08/26/24 08/26/24 History oxybutynin chloride 10 mg 10 mg PO DAILY 08/26/24 08/26/24 History tablet,extended release 24 hr pantoprazole 40 mg tablet,delayed 40 mg PO DAILY 08/26/24 08/26/24 History release sennosides 8.6 mg-docusate sodium 2 tab PO HS 08/26/24 08/26/24 History 50 mg tablet (Senexon-S) tiotropium bromide 2.5 2 puff inhalation DAILY 08/26/24 08/26/24 History mcg/actuation mist for inhalation (Spiriva Respimat) Patient History Medical History Acute UTI Abdominal pain Aspiration pneumonitis Pneumonia Paraplegia Surgical History No pertinent past surgical history Social History Smoking Status: Former smoker Tobacco Type: Cigarettes and Smokeless Tobacco (Dip or Chew) Cigarettes Per Day: 1/2ppd; Second Hand Exposure: Yes; Do You Dip or Chew Tobacco: Yes; Hx Alcohol Use: Yes Alcohol type: hard liquor Hx Substance Use: Yes Non-Prescribed Medications: Crack / Cocaine and Marijuana Last Used Substance: Unknown Preferred Language: Bur[place]ian Communication Ability: Effective Communication Ability Comment: difficulty writing Operator Receptionist Required: No Beliefs That Will Affect Care: None Current Living Situation: Alone Current Living Situation Comment: lives home with brother. has 24 hr caregivers Feels Safe at Home: Yes Assistive Devices: Hospital Bed, Mechanical Lift, Nebulizer, Scooter/Electric Scooter and Other Review of Systems as HPI and all others negative Physical Exam Gen: no acute distress Lungs: breathing comfortably on room air Abd: no obvious finding on abdomen, palpation done by nursing staff did not elicit pain Neuro: alert and oriented x3 Skin: mild erythema and tenderness around the SPC insertion site (palpation done by nursing staff) Results & Data Vital Signs (Past 12 Hours) Vital Signs Temp Pulse Pulse Resp BP Pulse Ox O2 Del Method 09/10/24 15:02 36.6 C 54 L 16 88/61 L 96 Room Air 09/10/24 14:13 Room Air 09/10/24 11:06 36.4 C L 57 L 14 114/76 95 Room Air 09/10/24 09:57 Room Air 09/10/24 08:16 36.3 C L 61 12 116/80 96 Room Air 09/10/24 07:15 53 L Laboratory Results WBC 16.75K ->-> 7.33K H 9.3 Plt 292K Cr 0.64 U cx (09/05): C albicans UA (09/05): blood 3+, LE 3+ Blood cx (09/05): Staph pettenkoferi (2 of 4: contaminant) Surface cx around the SPC (09/05): MRSA (S to clinda, dapto, linez, rif, tetra, bact, vanco) Blood cx (09/08): NGTD CXR: New R basilar infiltrate CT C/A/P 1. No evidence of pulmonary embolism. 2. Dense subpleural consolidation is noted involving the posterior basal segment of right lower lobe, posterior segment of right upper lobe. Possibility of infective etiology vs aspiration pneumonitis. 3. Multiple subpleural subsegmental atelectatic changes are noted involving left lower lobe, inferior lingula. CT cervical spine 1. No acute fracture or subluxation in the cervical spine. 2. Loss of cervical lordosis. 3. Posterior spinal fixation device seen insitu from C3 to T1 level without any hardware complications. (1) Pneumonia involving right lung Lung location: lower lobe of lung Pneumonia type: due to unspecified organism Qualified Code(s): J18.9 - Pneumonia, unspecified organism
[2024-09-11 06:21] LABS: Basophils % (auto) 1.1 %; Eosinophils # (auto) 0.39 K/uL (0.00-0.50); Eosinophils % (auto) 4.3 %; Hematocrit (blood only) 32.4 % (42.0-52.0); Hemoglobin 9.6 g/dl (14.0-18.0); Immature Granulocytes # (auto) 0.03 K/uL (0.01-0.20); Immature Granulocytes % (auto) 0.3 %; Lymphocytes # (auto) 1.65 K/uL (1.20-3.40); Mean Corpuscular Hemoglobin 22.2 pg (25.0-34.0); Mean Corpuscular Hgb Conc 29.6 g/dL (32.0-36.0); Mean Platelet Volume 9.7 fL (9.4-12.4); Monocytes # (auto) 0.89 K/uL (0.11-0.59); Monocytes % (auto) 9.7 %; Neutrophils # (auto) 6.11 K/uL (1.40-6.50); Neutrophils % (auto) 66.6 %; Platelet Count 327 K/uL (130-400); RDW Standard Deviation 45.4 fL (36.4-46.3); Red Blood Count 4.32 M/uL (4.70-6.10); White Blood Count 9.17 K/ul (4.8-10.8)
[2024-09-11 06:36] LABS: BUN Creatinine Ratio 9.7 (10-20); Creatinine Clr Calc Pharmacy 107.4 ml/min; Potassium 3.6 mmol/L (3.5-5.1)
[2024-09-11] MEDS: DOXYCYCLINE HYCLATE 100 MG CAP PO SCH (09:03)
--- NOTE | 2024-09-11 14:28 | Hospitalist Progress Note ---
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 No trauma. He is being managed for the following: Pneumonia involving right lung: Bacteremia: 09/05 bl cx +ve for GPC in clusters (08/11), f/u other c/s. Follow-up repeat blood culture 09/08. Infected wound x abdomen: cx showing Staphylococcus aureus and Quang tropicalis Sepsis POA: likely iso pneumonia, HR and WBC elevated at presentation. CAUTI, POA Presented with hypotension and noted to have right lower lobe pneumonia likely secondary to aspiration in imaging Recurrent pneumonia, possible aspiration, no sepsis CT of the chest showed dense subpleural consolidation involving the posterior basal segment of right lower lobe, posterior segment of right upper lobe. Possibly of infective etiology versus aspiration pneumonitis No evidence of pulmonary embolism. 09/06 MRSA +ve. Blood cx on 09/05 showed 08/11 staph pettenkoferi Wound Cx from suprapubic catheter site growing MRSA and quang tropicalis Blood cx 09/08- NGTD Urine Cx- Quang albicans Infectious disease was consulted; antibiotics changed to doxycycline to be given till 09/19/2024 Will DC IV vancomycin, Zosyn and fluconazole. Left sided abdominal pain: hx of Suprapubic catheter: On Complaint left-sided abdominal pain and noted to have minimal bleeding from suprapubic catheter site as per the sister Has been complaining of worsening abdominal discomfort and bloody suprapubic catheter discharge CT scan of the abdomen pelvis showed consolidation involving the basal segment of right lower lobe, multiple atelectatic Captique bands involving the basal segment of both lower lobes and bilateral multiple nonobstructing renal stone Pain is better following admission Suprapubic catheter exchanged on September 10, 2024 Hypotension: Secondary to hypovolemia History hypotension secondary to 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 PRN IVF if w/ poor intake, continue midodrine as needed Blood pressure better Other chronic medical conditions: Continue with/resume home meds as when able. 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 cor d: Chronic quadriplegia secondary to traumatic cervical spine injury status post surgery 2020. CT of the cervical spine did not show any acute fracture or subluxation of the cervical spine. Continue pain management. Quadriplegia: Functional disability, concerns about patient assistance's ability to take care for disabled patient with multiple comorbidities. Sacral decubitus ulcer, stage IV: Wound care consult, wound picture reviewed. Unstageable pressure ulcers of R lower lateral leg and R lateral dorsal foot: iso quadriplegia. wound care on board DVT prophylaxis: Patient on Eliquis Full code Dispositionpossible DC in a.m. depending on clinical status Please note the above document was generated using voice recognition software. It may contain grammatical, syntax or spelling errors. Any formal questions or concerns about the content, text or information contained within the body of this dictation should be directly addressed to the provider for clarification Admission and Anticipated Discharge Date Admission Date: September 06, 2024 Subjective Patient seen and examined at bedside. Comfortable; not in distress. Denies fever, chills, chest pain, shortness of breath, abdominal pain or urinary symptoms. No significant overnight events Review of Systems Review of Systems: All systems reviewed & are unremarkable except as noted in Subjective Physical Exam Physical Exam: Physical Exam: Constitutional: comfortable; not i n any distress Eyes: PERRL, conjunctiva e normal, anicteri c sclerae ENMT: external ear and n ose normal, oropha rynx normal Neck: trachea midline, n o thyromegaly Respiratory: no respiratory dis tress Auscultatio n: + diminished je ng sounds and + cr ackles ( minimal c rackles at the bas es) Cardiovascular: Rate/Rhythm: regul ar rate and regula r rhythm; not tach ycardic Heart Jocelyn nds: normal S1 and normal S2; no mur mur Extremities: no edema Gastrointestinal ( Abdomen): Inspection/Auscult ation: normal brigido l sounds; abdomen not distended Per cussion/Palpation: + abdomen tender ( minimally tender around suprapubic catheter site) an d abdomen soft Musculoskeletal: No acute arthrit is involving any o f the joint Neurologic: Quadriplegia fro m traumatic cervic al cord injury in the past Lymphatic: no cervical or axi llary lymphadenopa thy Results & Data Results & Data Vital Signs (Past 12 Hours) Vital Signs Temp Pulse Pulse Resp BP Pulse Ox O2 Del Method 09/11/24 13:52 51 L 09/11/24 11:40 36.3 C L 55 L 20 114/76 96 Room Air 09/11/24 08:00 Room Air 09/11/24 07:41 36.4 C L 59 L 20 114/80 98 Room Air 09/11/24 07:00 57 L 09/11/24 03:46 36.7 C 60 18 123/83 96 Room Air (1) Pneumonia involving right lung Lung location: lower lobe of lung Pneumonia type: due to unspecified organism Qualified Code(s): J18.9 - Pneumonia, unspecified organism
[2024-09-11] MEDS ORDERED: Nursing to Pharmacy Communication SCH (21:15)
[2024-09-12 07:14] VITALS: RESP 20; TEMP 96.8; O2SAT 97
[2024-09-12 07:31] LABS: Basophils # (auto) 0.09 K/uL (0.00-0.20); Basophils % (auto) 1.1 %; Eosinophils % (auto) 4.9 %; Hematocrit (blood only) 32.9 % (42.0-52.0); Hemoglobin 9.6 g/dl (14.0-18.0); Immature Granulocytes # (auto) 0.02 K/uL (0.01-0.20); Immature Granulocytes % (auto) 0.2 %; Mean Corpuscular Hemoglobin 21.9 pg (25.0-34.0); Mean Corpuscular Hgb Conc 29.2 g/dL (32.0-36.0); Mean Corpuscular Volume 75.1 fL (80.0-100.0); Monocytes # (auto) 0.59 K/uL (0.11-0.59); Monocytes % (auto) 7.2 %; Neutrophils # (auto) 5.29 K/uL (1.40-6.50); Neutrophils % (auto) 64.6 %; Platelet Count 320 K/uL (130-400); RDW Coefficient of Variation 17.2 % (11.5-14.5); RDW Standard Deviation 46.2 fL (36.4-46.3); Red Blood Count 4.38 M/uL (4.70-6.10); White Blood Count 8.19 K/ul (4.8-10.8)
[2024-09-12 07:40] LABS: BUN Creatinine Ratio 9.3 (10-20); Calcium 9.3 mg/dl (8.6-10.3); Creatinine Clr Calc Pharmacy 116.3 ml/min; Potassium 3.5 mmol/L (3.5-5.1)
--- NOTE | 2024-09-12 08:51 | Hospitalist Progress Note ---
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 No trauma. He is being managed for the following: Right Lung Pneumonia: Bacteremia:08/11: Staph: likely contamination Infected wound x abdomen: cx showing Staphylococcus aureus and Georgina tropicalis Sepsis POA: likely iso pneumonia CAUTI, POA --CT of the chest showed dense subpleural consolidation involving the posterior basal segment of right lower lobe, posterior segment of right upper lobe. Possibly of infective etiology versus aspiration pneumonitis No evidence of pulmonary embolism. 09/06 MRSA +ve. --Blood Cx: 08/11 staph pettenkoferi --Wound Cx from suprapubic catheter site growing MRSA and georgina tropicalis --Urine Cx- Georgina albicans Appreciate Infectious disease Input. Will DC IV vancomycin, Zosyn and fluconazole. Antibiotics changed to doxycycline to be given till 09/19/2024 Complete the doxycycline course as recommended by infectious disease Left sided abdominal pain: H/O Suprapubic catheter: -On 25th Complaint left-sided abdominal pain and noted to have minimal bleeding from suprapubic catheter site as per the sister --CT ABD:Consolidation is noted involving basal segment of right lower lobe. - increased. Multiple atelectatic bands are noted involving basal segment of both lower lobes. -stable. Bilateral multiple non-obstructing renal calculi.-stable. No other new interval abnormality since prior study. --Suprapubic catheter exchanged on September 10, 2024 Hypotension: Secondary to hypovolemia History hypotension secondary to 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 Received IV fluids, continue midodrine Blood pressure improved Other chronic medical conditions: Continue with/resume home meds as when able. 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: Chronic quadriplegia secondary to traumatic cervical spine injury status post surgery 2020. CT of the cervical spine did not show any acute fracture or subluxation of the cervical spine. Continue pain management. Quadriplegia: Functional disability, concerns about patient assistance's ability to take care for disabled patient with multiple comorbidities. Sacral decubitus ulcer, stage IV: Wound care consulted Unstageable pressure ulcers of R lower lateral leg and R lateral dorsal foot: iso quadriplegia. wound care on board DVT Px: Eliquis Code Status Full code Disposition: Home with HH Admission and Anticipated Discharge Date Admission Date: September 06, 2024 Subjective Patient is seen and examined at bedside Feels well today Offers no specific complaints Denies any chest pain, shortness of breath, dizziness, nausea, abdominal pain Plan to discharge home today Review of Systems Review of Systems: All systems reviewed & are unremarkable except as noted in Subjective Physical Exam Physical Exam: Physical Exam: Vitals signs as noted above General Appearance:Moderately built and nourished, chronic ill appearing Head: normocephalic, Atraumatic Eyes: normal inspection, EOMI Neck: supple, Trachea midline Respiratory/Chest: Decreased breath sounds, CTA, No accessory muscle use Cardiovascular: S1, S2, No murmur, bradycardia Abdomen/GI:Soft, non tender, Bowel sounds present : Suprapubic Catheter Extremities/Musculoskeletal:normal inspection, Trace pedal edema Neurologic/Psych: Quadriplegia, alert, awake and oriented x 3 Skin: normal color, warm.+sacral wound Results & Data Results & Data Vital Signs (Past 12 Hours) Vital Signs Temp Pulse Pulse Resp BP Pulse Ox O2 Del Method 09/12/24 07:24 56 L 09/12/24 07:14 36.0 C L 47 L 20 155/91 H 97 Room Air 09/12/24 03:14 36.6 C 56 L 18 113/79 96 Room Air 09/11/24 23:40 36.5 C 59 L 18 105/66 97 Room Air 09/11/24 21:50 58 L 09/11/24 21:16 Room Air Laboratory Results Short CBC 09/12/24 Range/Units 05:30 WBC 8.19 (4.8-10.8) K/ul Hgb 9.6 L (14.0-18.0) g/dl Hct 32.9 L (42.0-52.0) % Plt Count 320 (130-400) K/uL BMP 09/12/24 05:30 Sodium 141 Potassium 3.5 Chloride 109 H Carbon Dioxide 26 BUN 8 Creatinine 0.86 Glucose 69 L Calcium 9.3 (1) Pneumonia involving right lung Lung location: lower lobe of lung Pneumonia type: due to unspecified organism Qualified Code(s): J18.9 - Pneumonia, unspecified organism
[2024-09-12 10:07] VITALS: BP 124/79; PULSE 47
--- NOTE | 2024-09-12 12:50 | Discharge Summary ---
Date of Service September 12, 2024 Admission HPI Per Admitting Provider History obtained from patient, family, and records. Limited history from patient secondary to obtunded state post lorazepam administration at the ER. 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 Recent [facility] confinement 08/26-2023 for catheter catheter associated UTI (Pseudomonas and Klebsiella). ID recommended Cipro course. 09/01 Patient returned to ER for left-sided abdominal pain. Minimal bleeding from suprapubic catheter site as per sister. CT abdomen pelvis showed sacral decubitus ulcer without osteomyelitis and fecal retention. Patient discharged home. Worsening abdominal discomfort and bloody suprapubic catheter drainage in the bag as per sister. No trauma as per account. Patient with chest tightness, sister has concerns about worsening cough from possible aspiration. Achy neck pain which is new for patient. Patient brought to ER for evaluation. SBP 90s upon arrival at the ER. IV vancomycin, Zosyn, and lorazepam administered at the ER. Medical History as above Surgical History : Ankle surgery, neck surgery, urologic procedures, arm surgery, appendectomy, leg abscess drainage/metatarsal surgery, cholecystectomy Family History : Heart disease Personal/Social history : 2 packs daily, occasional EtOH intake, disabled Admission Exam Per Admitting Provider GENERAL: Obtunded, looks older than stated age, chronically ill, no respiratory distress SKIN: Pallor HEENT: Alopecia, pale palpebral conjunctivae, no ptosis, dry buccal mucosa NECK : Some limitation in motion, no tenderness CHEST : Decreased breath sounds, expiratory wheezes, no tenderness HEART : RRR, no obvious murmurs ABDOMEN: Some distention, dried blood around suprapubic catheter site, minimal hypogastric tenderness EXTREMITIES : Minimal LE swelling/tenderness, posterior surfaces not examined NEUROLOGIC : Obtunded, no facial asymmetry, MMTS BUE 3/5, BLE 0 Principal Diagnosis Right lung pneumonia Infected abdominal wound Sepsis CAUTI Discharge Data Allergies Allergy/AdvReac Type Severity Reaction Status Date / Time Opioids - Morphine Analogues AdvReac severe Verified 05/17/24 15:46 bradycardia Consultations 09/06/24 01:14 ED Decision to Admit Stat 09/06/24 03:09 Consult Urology Routine 09/07/24 08:38 Consult Infectious Diseases Routine Procedures Performed Laboratory Results WBC 8.19 K/ul (4.8-10.8) 09/12/24 05:30 RBC 4.38 M/uL (4.70-6.10) L 09/12/24 05:30 Hgb 9.6 g/dl (14.0-18.0) L 09/12/24 05:30 Hct 32.9 % (42.0-52.0) L 09/12/24 05:30 MCV 75.1 fL (80.0-100.0) L 09/12/24 05:30 MCH 21.9 pg (25.0-34.0) L 09/12/24 05:30 MCHC 29.2 g/dL (32.0-36.0) L 09/12/24 05:30 RDW Std Deviation 46.2 fL (36.4-46.3) 09/12/24 05:30 RDW Coeff of Adelia 17.2 % (11.5-14.5) H 09/12/24 05:30 Plt Count 320 K/uL (130-400) 09/12/24 05:30 MPV 10.0 fL (9.4-12.4) 09/12/24 05:30 Immature Gran % (Auto) 0.2 % 09/12/24 05:30 Neut % (Auto) 64.6 % 09/12/24 05:30 Lymph % (Auto) 22.0 % 09/12/24 05:30 [place] % (Auto) 7.2 % 09/12/24 05:30 Eos % (Auto) 4.9 % 09/12/24 05:30 Baso % (Auto) 1.1 % 09/12/24 05:30 Neut # (Auto) 5.29 K/uL (1.40-6.50) 09/12/24 05:30 Lymph # (Auto) 1.80 K/uL (1.20-3.40) 09/12/24 05:30 [place] # (Auto) 0.59 K/uL (0.11-0.59) 09/12/24 05:30 Eos # (Auto) 0.40 K/uL (0.00-0.50) 09/12/24 05:30 Baso # (Auto) 0.09 K/uL (0.00-0.20) 09/12/24 05:30 Immature Gran # (Auto) 0.02 K/uL (0.01-0.20) 09/12/24 05:30 Absolute Nucleated RBC Cancelled 09/07/24 08:52 Nucleated RBC % (auto) Cancelled 09/07/24 08:52 Platelet Estimate Cancelled 09/07/24 08:52 PT 11.6 Seconds (9.0-12.0) 09/07/24 02:33 INR 1.1 (0.9-1.1) 09/07/24 02:33 APTT 28 Seconds (21-31) 09/06/24 22:42 PTT Ratio 1.0 09/06/24 22:42 Heparin Anti-Xa, Unfract 0.41 IU/ml (0.3-0.7) 09/07/24 08:52 Sodium 141 mmol/L (136-145) 09/12/24 05:30 Potassium 3.5 mmol/L (3.5-5.1) 09/12/24 05:30 Chloride 109 mmol/L (98-107) H 09/12/24 05:30 Carbon Dioxide 26 mmol/L (21-32) 09/12/24 05:30 Anion Gap 6 (3-11) 09/12/24 05:30 BUN 8 mg/dl (6-23) 09/12/24 05:30 Creatinine 0.86 mg/dl (0.6-1.4) 09/12/24 05:30 Est Cr Clr Drug Dosing 116.3 ml/min 09/12/24 05:30 eGFR 107.47 09/12/24 05:30 BUN/Creatinine Ratio 9.3 (10-20) L 09/12/24 05:30 Glucose 69 mg/dl (70-99(Fasting)) L 09/12/24 05:30 Lactate 0.8 mmol/L (0.4-2.0) 09/05/24 22:32 Calcium 9.3 mg/dl (8.6-10.3) 09/12/24 05:30 Phosphorus 3.5 mg/dl (2.5-4.9) 09/09/24 05:42 Magnesium 1.9 mg/dl (1.7-2.4) 09/09/24 05:42 Total Bilirubin 1.0 mg/dl (0.2-1.0) 09/05/24 22:32 Direct Bilirubin 0.2 mg/dl (0-0.2) 09/05/24 22:32 AST 13 U/L (13-39) 09/05/24 22:32 ALT 4 U/L (7-52) L 09/05/24 22:32 Alkaline Phosphatase 110 U/L (34-104) H 09/05/24 22:32 Troponin I High Sens 5.7 pg/ml (0-20) 09/07/24 09:48 Total Protein 6.6 gm/dl (6.0-8.3) 09/05/24 22:32 Albumin 3.3 gm/dl (3.4-5.0) L 09/05/24 22:32 Triglycerides 78 mg/dl (0-150) 09/07/24 02:33 Cholesterol 107 mg/dl (0-200) 09/07/24 02:33 LDL Cholesterol, Calc 56 mg/dl 09/07/24 02:33 VLDL Cholesterol, Calc 16 mg/dl (0-30) 09/07/24 02:33 HDL Cholesterol 35 mg/dl 09/07/24 02:33 Cholesterol/HDL Ratio 3.1 (0-5) 09/07/24 02:33 Procalcitonin 0.09 ng/ml (0-0.5) 09/05/24 22:32 Urine Color [place] 09/05/24 23:11 Urine Appearance Turbid (Clear) A 09/05/24 23:11 Urine pH 7.5 (4.5-7.5) 09/05/24 23:11 Ur Specific [place] 1.023 (1.000-1.030) 09/05/24 23:11 Urine Protein 2+ (Negative) H 09/05/24 23:11 Urine Glucose (UA) Negative (Negative) 09/05/24 23:11 Urine Ketones Trace (Negative) H 09/05/24 23:11 Urine Blood 3+ (Negative) H 09/05/24 23:11 Urine Nitrite Negative (Negative) 09/05/24 23:11 Urine Bilirubin Negative (Negative) 09/05/24 23:11 Urine Urobilinogen Positive (Negative) H 09/05/24 23:11 Ur Leukocyte Esterase 3+ (Negative) H 09/05/24 23:11 Urine WBC (Auto) >50 /hpf (0-5) H 09/05/24 23:11 Urine RBC (Auto) >20 /hpf (0-2) H 09/05/24 23:11 U Hyaline Cast (Auto) 6-10 /lpf (0-2) H 09/05/24 23:11 U Epithel Cells (Auto) 0-2 /hpf (0-2) 09/05/24 23:11 Urine Bacteria (Auto) 1+ (None Seen) H 09/05/24 23:11 Urine Yeast Present (None Prsent) A 09/05/24 23:11 Nasal Screen MRSA (PCR) Positive (Negative) A 09/06/24 04:45 Random Vancomycin 20.5 mcg/ml (10-20) H 09/10/24 09:58 Urine Opiates Screen Pos (Neg) H 09/06/24 Unknown U Codeine Confrm GC/MS NEGATIVE ng/mL (<50) 09/06/24 Unknown Ur Morphine (GC/MS) NEGATIVE ng/mL (<50) 09/06/24 Unknown Ur Hydrocodone (GC/MS) 115 ng/mL (<50) H 09/06/24 Unknown Ur Norhydrocodone 52 ng/mL (<50) H 09/06/24 Unknown Ur Noroxycodone NEGATIVE ng/mL (<50) 09/06/24 Unknown Urine Oxycodone (GC/MS) NEGATIVE ng/mL (<50) 09/06/24 Unknown U Oxymorphone GC/MS NEGATIVE ng/mL (<50) 09/06/24 Unknown Ur Methadone, Qual Neg (Neg) 09/06/24 Unknown Ur Hydromorphone (GC/MS) NEGATIVE ng/mL (<50) 09/06/24 Unknown Urine Fentanyl Screen Neg (Neg) 09/06/24 Unknown Urine Barbiturates Neg (Neg) 09/06/24 Unknown Ur Phencyclidine (PCP) Neg (Neg) 09/06/24 Unknown U Amphetamines Confirm 495 ng/mL (<250) H 09/06/24 Unknown U Amphetamin/Meth Scrn Pos (Neg) H 09/06/24 Unknown U Methamphetamin Confrm 5936 ng/mL (<250) H 09/06/24 Unknown MDMA (Ecstasy) Screen Neg (Neg) 09/06/24 Unknown U Benzodiazepines Scrn Neg (Neg) 09/06/24 Unknown Ur Cocaine Metabolite Neg (Neg) 09/06/24 Unknown U Marijuana (THC) Screen Pos (Neg) H 09/06/24 Unknown U Marijuana THC Carboxy 40 ng/mL (<5) H 09/06/24 Unknown Drug Screen Comment SEE NOTE 09/06/24 Unknown Staphylococcus sp PCR DETECTED (NotDetected) A 09/05/24 23:37 Bld Cult ID Panel PCR See PCR Comment (NotDetected) 09/05/24 23:37 Blood Type A Positive 09/05/24 23:38 Antibody Screen NEGATIVE 09/05/24 23:38 Impressions Abdomen/Pelvis CT 09/05/24 22:31 EXAM: CT abd pelvis IV con only CLINICAL HISTORY: None TECHNIQUE: Contiguous axial images were obtained from the level of the diaphragm to the pubic symphysis without and with intravenous contrast. Coronal and sagittal reconstructions were likewise performed and indicated to increase the sensitivity for detecting clinically relevant pathology. If IV contrast material had not been administered, the likelihood of detecting abnormalities relevant to the patient's condition would have been substantially decreased. CT scan was performed according to ALARA (as low as reasonable achievable). COMPARISON: 01 sep 2024 FINDINGS: Consolidation is noted involving basal segment of right lower lobe. Multiple atelectatic bands are noted involving basal segment of both lower lobes. The liver is normal in size and attenuation. No focal liver lesions are seen. There is no intra or extrahepatic biliary ductal dilatation. Hepatic vasculature is patent. The gallbladder is removed. The spleen, pancreas, and adrenal glands are unremarkable. The kidneys are normal in size and attenuation. There is no hydronephrosis or perinephric fat stranding. Right kidney show nonobstructing calculus of size 4mm in upper calyx.. Left kidney show nonobstructing calculus of size 3mm, 4mm and 6 mm in middle calyx The ureters are normal in caliber and no ureteral calculi are seen. The bladder is normal in contour. Suprapubic cathetarisation is seen in situ. Pelvic viscera are unremarkable. No focal or diffuse bowel wall thickening or evidence of bowel obstruction is identified. The appendix is visualized in the right lower quadrant and appears within normal limits. Abdominal and pelvic vasculature is patent. No adenopathy or fluid collections are seen. No aggressive appearing osseous lesions are identified. IMPRESSION: Consolidation is noted involving basal segment of right lower lobe. -increased. Multiple atelectatic bands are noted involving basal segment of both lower lobes. -stable. Bilateral multiple non-obstructing renal calculi.-stable. No other new interval abnormality since prior study. Electronically signed by Justin Melgar 09-06-2024 01:29 AM Chest CTA 09/05/24 22:31 EXAM: CT angio chest PE protocol CLINICAL HISTORY: None TECHNIQUE: Contiguous axial images were obtained from the neck base through the upper abdomen following intravenous administration of iodinated contrast material. Angiographic images were processed, 3D MIP images were acquired for interpretation. If IV contrast material had not been administered, the likelihood of detecting abnormalities relevant to the patient's condition would have been substantially decreased. Coronal and sagittal 3-D MIPs were likewise performed and indicated to increase the sensitivity of detectin diffuse clinically relevant pathology. CT scan was performed according to ALARA (as low as reasonably achievable). COMPARISON: none FINDINGS: No evidence of central pulmonary embolism. Dense subpleural consolidation is noted involving the posterior basal segment of right lower lobe, posterior segment of right upper lobe. Possibility of infective etiology vs aspiration pneumonitis. Suggested clinical/lab correlation. Multiple subpleural subsegmental atelectatic changes are noted involving left lower lobe, inferior lingula. The central airways are patent. Pulmonary arteries are of normal size and configuration. No pleural effusion. The heart, aorta are of normal size and configuration. There are no appreciable coronary artery and aortic atherosclerotic calcifications. No pericardial effusion is identified. The thyroid is unremarkable. No mediastinal, hilar, or axillary lymphadenopathy is noted. No suspicious lytic or sclerotic osseous lesions are identified. IMPRESSION: 1. No evidence of pulmonary embolism. 2. Dense subpleural consolidation is noted involving the posterior basal segment of right lower lobe, posterior segment of right upper lobe. Possibility of infective etiology vs aspiration pneumonitis. Suggested clinical/lab correlation. 3. Multiple subpleural subsegmental atelectatic changes are noted involving left lower lobe, inferior lingula. Electronically signed by Justin Melgar 09-06-2024 01:32 AM Chest X-Ray 09/05/24 22:32 Exam(s): XR CXR 1 VIEW EXAM: XR Chest, 1 View CLINICAL HISTORY: Reason for exam: Sepsis. TECHNIQUE: Frontal view of the chest. COMPARISON: 09/01/2024. FINDINGS: There is a poor inspiratory effort. Lungs: There is a right basilar infiltrate.. Pleural space: No pleural effusion is seen. No pneumothorax. Heart: Heart is top normal in size.. Mediastinum: Unremarkable. Bones/joints: There are degenerative changes in the spine.. IMPRESSION: There is a new right basilar infiltrate. Electronically signed by: Milton Storey MD 09/06/24 00:[address] 09/06/24 01:58 EXAM: CT cervical spine wo con CLINICAL HISTORY: None TECHNIQUE: Computed tomography of the cervical spine performed without intravenous contrast. Contiguous axial images were obtained from the skull base to T2, with sagittal and coronal reformatted images reconstructed from the axial data. CT scan was performed according to ALARA (as low as reasonably achievable). COMPARISON: - FINDINGS: Loss of cervical lordosis. Posterior spinal fixation device seen insitu from C3 to T1 level without any hardware complications. Cervical vertebral bodies are normal in height and alignment, with no evidence of fracture or subluxation. Lateral masses of C1 are symmetrical, and the dens is intact. Prevertebral soft tissues are not widened. The remaining suprahyoid and infrahyoid soft tissues in the neck are unremarkable. C2-C3: No disc bulge, mass effect on the cord or neuroforaminal narrowing. C3-C4: No disc bulge, mass effect on the cord or neuroforaminal narrowing. C4-C5: No disc bulge, mass effect on the cord or neuroforaminal narrowing. C5-C6: Mild reduction in disc space with intradiscal calcifications seen with partial fusion of the posterior elements. C6-C7: No disc bulge, mass effect on the cord or neuroforaminal narrowing. C7-T1: No disc bulge, mass effect on the cord or neuroforaminal narrowing. Thyroid gland appears unremarkable. IMPRESSION: 1. No acute fracture or subluxation in the cervical spine. 2. Loss of cervical lordosis. 3. Posterior spinal fixation device seen insitu from C3 to T1 level without any hardware complications. 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 No trauma. He is being managed for the following: Right Lung Pneumonia: Bacteremia:08/11: Staph: likely contamination Infected wound x abdomen: cx showing Staphylococcus aureus and Quang tropicalis Sepsis POA: likely iso pneumonia CAUTI, POA --CT of the chest showed dense subpleural consolidation involving the posterior basal segment of right lower lobe, posterior segment of right upper lobe. Possibly of infective etiology versus aspiration pneumonitis No evidence of pulmonary embolism. 09/06 MRSA +ve. --Blood Cx: 08/11 staph pettenkoferi --Wound Cx from suprapubic catheter site growing MRSA and quang tropicalis --Urine Cx- Quang albicans Appreciate Infectious disease Input. Will DC IV vancomycin, Zosyn and fluconazole. Antibiotics changed to doxycycline to be given till 09/19/2024 Complete the doxycycline course as recommended by infectious disease Left sided abdominal pain: H/O Suprapubic catheter: -On 25th Complaint left-sided abdominal pain and noted to have minimal bleeding from suprapubic catheter site as per the sister --CT ABD:Consolidation is noted involving basal segment of right lower lobe. - increased. Multiple atelectatic bands are noted involving basal segment of both lower lobes. -stable. Bilateral multiple non-obstructing renal calculi.-stable. No other new interval abnormality since prior study. --Suprapubic catheter exchanged on September 10, 2024 Hypotension: Secondary to hypovolemia History hypotension secondary to 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 Received IV fluids, continue midodrine Blood pressure improved Other chronic medical conditions: Continue with/resume home meds as when able. 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: Chronic quadriplegia secondary to traumatic cervical spine injury status post surgery 2020. CT of the cervical spine did not show any acute fracture or subluxation of the cervical spine. Continue pain management. Quadriplegia: Functional disability, concerns about patient assistance's ability to take care for disabled patient with multiple comorbidities. Sacral decubitus ulcer, stage IV: Wound care consulted Unstageable pressure ulcers of R lower lateral leg and R lateral dorsal foot: iso quadriplegia. wound care on board DVT Px: Eliquis Code Status Full code Disposition: Home with HH Total Time Total Time Spent Total Time Spent (In Minutes): 52 minutes Discharge Plan Discharge Items Patient Disposition: Home - Home Health Services Reason For Visit: HYPOTENSION Discharge Diagnosis: Right lung pneumonia Infected abdominal wound Sepsis CAUTI Condition on Discharge: Fair Activity: Per Instructions section Exercise/Sports: Gradually increase as tolerated Non-emergency contact: Primary Care Provider Call non-emergency contact if: you have any medication questions, your symptoms worsen, your pain is concerning for you and you have a fever Follow-up/Referrals: Chay Aguilar DO [Primary Care Provider] - Diet: Regular Addtl Attending Provider Instructions: Follow-up with your primary care physician -- Your final blood cultures are pending at the time of discharge. Follow-up with your physician for results. -- Complete the antibiotic course doxycycline as prescribed. Seek immediate medical attention if your symptoms reoccur or worsen Please take all medications as instructed on discharge list below. Please call if you have any questions or problems. You can reach a [facility] hospitalist on duty at [facility] 24 hours a day by calling [phone] Pending Studies at Discharge: Yes Studies:: Blood cultures Stand-Alone Forms: My [facility] [place], Smoking Cessation Medications and DC Order Prescriptions: New doxycycline hyclate 100 mg Capsule 100 mg PO BID Qty: 15 0RF Continued albuterol sulfate 2.5 mg /3 mL (0.083 %) Solution For Nebulization 2.5 mg INHALATION Q4H PRN (Reason: Shortness Of Breath Or Wheezing) oxybutynin chloride 10 mg tablet extended release 24hr 10 mg PO DAILY sennosides-docusate sodium [Senexon-S] 8.6-50 mg tablet 2 tab PO HS nortriptyline 25 mg capsule 25 mg PO HS bisacodyl 10 mg suppository 10 mg ID BID lidocaine 5 % adhesive patch,medicated 1 patch topical DAILY PRN (Reason: Pain) docusate sodium 100 mg capsule 100 mg PO BID PRN (Reason: Constipation) hydroxyzine HCl 25 mg tablet 25 mg PO DAILY PRN (Reason: Anxiety) ferrous sulfate 325 mg (65 mg iron) tablet,delayed release (DR/EC) 325 mg PO DAILY midodrine 10 mg tablet 10 mg PO TID PRN (Reason: Hypotension) Rx Instructions: PRN SBP< 90 lactulose 10 gram/15 mL solution 20 g PO TID PRN (Reason: Constipation) budesonide-formoterol 160-4.5 mcg/actuation HFA aerosol inhaler 2 puff INHALATION BID Spiriva Respimat 2.5 mcg/actuation mist 2 puff INHALATION DAILY Eliquis 5 mg tablet 5 mg PO BID multivitamin Tablet 1 tab PO DAILY ascorbic acid (vitamin C) [Vitamin C] 500 mg tablet 500 mg PO DAILY baclofen 10 mg tablet 20 mg PO TID PRN (Reason: muscle spasms) pantoprazole 40 mg tablet,delayed release (DR/EC) 40 mg PO DAILY Discharge Orders: Discharge Order (Routine); Ordered 09/12/24 Ordered By: Jama Vela Admission Data Admit Date/Time: 09/06/24 01:26 Attending Provider: Jama Vela Admit Provider: Corky Yadav Primary Care Provider: Chay Aguilar Other Providers: Faraz Gomez; Luz Madrigal; Joo Alfred; Tosha Garner; Toya Brink; Jaycob Huertas; Angella Zaidi; Jose Qureshi; Katia Will; Kenton Anderson; Corky Yadav; Isauro Zapata; Omero Rubio; Chencho Miles I.; Bishnu Kilgore II; Abril Olivas; Rafael Romero; Alexander Hill; Catalina Blanton; Odell Hsu; Zeeshan Pagan Other Interventions: Discharge Summary Assessment (RN) Last Done: 09/12/24 10:05
== END 2024-09-12 13:15 | disposition home health service (06) | DRG 871 ==
LOC: ED 21:43 → SUATTDRO 09-06 01:26 → 2W 09-06 01:26

== ENCOUNTER 2024-09-30 17:47 | Inpatient (IN) ==
--- NOTE | 2024-09-30 18:01 | Emergency Department Note ---
Impression & Plan Hypoxic respiratory failure, Abdominal pain, Acute hypokalemia, Acute hypotension ED Provider Note NAME: NEHEMIAS SANTOS AGE: 48 SEX: M : 1975 ARRIVES VIA: Ambulance INFORMANT: Patient ED PROVIDER(S): Eric Gonzalez DO CHIEF COMPLAINT: Shortness of breath, abdominal pain HPI: Patient is a 48-year-old male quadriplegic who presents to the ER for abdominal discomfort which he notes has been present for over a month. It is in the left mid abdomen. No nausea or vomiting. He also admits to cough and shortness of breath. He believes he should have been on oxygen as he had this when he was down [facility] but following moving to [place] he has not been using any oxygen. He also admits to a burning in the epigastric region which he notes/describes as his chest. This has been constant for the past 2 hours. ADDITIONAL HISTORY OBTAINED: Per HPI Chronic Medical/Social Conditions Affecting Care: Per HPI PAST MEDICAL HISTORY:See Below PAST SURGICAL HISTORY:See Below FAMILY HISTORY:See Below SOCIAL HISTORY:See Below HOME MEDICATIONS:See Below ALLERGIES:See Below VITALS:See Below PHYSICAL EXAMINATION: GENERAL: Sitting up in bed, alert, ill-appearing, cachectic and disheveled EYE EXAM: normal conjunctiva. OROPHARYNX: no exudate, no erythema, lips, buccal mucosa, and tongue normal and mucous membranes are moist NECK: supple, no nuchal rigidity, no adenopathy, non-tender LUNGS: Clear to auscultation. Normal chest wall mechanics HEART: no murmurs, S1 normal and S2 normal ABDOMEN: abdomen soft, non-tender, suprapubic catheter in place normo-active bowel sounds, no masses, no rebound or guarding. UPPER EXTREMITIES: upper extremities are grossly normal. LOWER EXTREMITIES: No pitting edema. NEURO EXAM: Awake alert oriented person able to move upper extremities. MEDICAL DECISION MAKING: Patient is a 48-year-old male who presents ER for above-stated complaint. IV was established and blood work was obtained. Labs show mild leukocytosis of 13,000. Mild anemia 10. BMP with mild hyponatremia at 133 and hypokalemia 3.0. This was repleted with 20 units IV K IV. LFTs were unremarkable. Troponin negative. Viral panel is negative. Patient was found to be hypoxic and placed on 4 L nasal cannula. Patient was given IV antibiotics which include cefepime and vancomycin as well as IV fluids. CT of the chest was eventually obtained and showed worsening pneumonia. CT abdomen pelvis as described below. He was updated at bedside. He remained on OxyMask while in the ER. He was discussed with the hospitalist admitted for further workup. Consults/Care Managements Discussions: Per [facility] Triage Nursing notes reviewed. Limited review of prior medical records performed Vital Signs: reviewed and remarkable for hypotension Differential diagnosis: Cellulitis, abscess, MRSA infection, DVT, necrotizing fasciitis, dermatitis, drug eruption, allergic reaction, as well as other pathologies. ER treatment provided: See below Diagnostics interpreted by me include EKG and cardiac monitoring as listed below: -Cardiac Monitoring: An order was placed for continuous cardiac monitoring. The monitor shows a rate of 94 with sinus rhythm. -ECG: Sinus rhythm rate 93 Normal axis No PVCs QTc 440 -Laboratory studies:Interpreted by me as stated above in MDM and shown below. Imaging studies: Xrays: As interpreted by me: Portable AP upright 1 view of the chest shows right lower lobe infiltrate which is slightly improved from previous CTs show: CT of the chest shows bilateral pneumonia CT abdomen pelvis Procedures:none Critical Care: I have personally spent 35 minutes of critical care time in the direct management of this patient. This includes bedside care, interpretation of diagnostic studies, and testing, discussion with consultants, patient, and family members, and other required patient management activities. This 35 minutes is in excess of all separately billable procedures. Past Med/Surg History Problem List (Updated 10/01/24 @ 00:11 by Eric Gonzalez DO) Acute hypotension (Acute) Acute hypokalemia (Acute) Abdominal pain (Acute) Hypoxic respiratory failure (Acute) Soft tissue infection Hypokalemia (Acute) Acute UTI (Acute) Pneumonia involving right lung (Acute) Sepsis (Acute) Elevated hemidiaphragm Abnormal chest CT Pneumonia (Acute) Cough (Acute) Left sided abdominal pain (Acute) Quadriplegia (Acute) Hypotension (Acute) Abdominal pain Autonomic dysreflexia Constipation Hydronephrosis (Acute) Acute urinary retention (Acute) Leukocytosis (Acute) Complication, blocked suprapubic catheter Hypokalemia (Acute) Hypomagnesemia (Acute) Anemia (Acute) Quadriplegia (Acute) Sacral decubitus ulcer (Acute) Acute UTI (Acute) Hypotension (Acute) Encephalopathy Pneumonia (Acute) Complicated urinary tract infection (Acute Unknown) Change or removal of nonsurgical wound dressing Acute hypoxemic respiratory failure (Acute) Chest pain (Acute) Severe sepsis (Acute) MRSA carrier Pneumonia (Acute) Hypoxic respiratory failure (Acute) 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 Leg wound, right Leg wound, left History of pulmonary embolism Hypoxia (Acute) RSV (respiratory syncytial virus infection) Chronic pain (Acute) Suprapubic catheter (Acute) Complicated UTI (urinary tract infection) (Acute) Sacral decubitus ulcer, stage IV (Acute) Chronic osteomyelitis of sacrum Medical History Acute UTI Abdominal pain Aspiration pneumonitis Pneumonia Paraplegia Surgical History No pertinent past surgical history Social History Smoking Status: Current every day smoker Tobacco Type: Cigarettes Cigarettes Per Day: 1/2ppd; Second Hand Exposure: Yes; Do You Dip or Chew Tobacco: Yes; Hx Alcohol Use: Yes Alcohol type: hard liquor Hx Substance Use: Yes Non-Prescribed Medications: Crack / Cocaine and Marijuana Last Used Substance: Unknown Preferred Language: [place] Communication Ability: Effective Communication Ability Comment: difficulty writing Electrolog Operator Required: No Beliefs That Will Affect Care: None Current Living Situation: Alone Current Living Situation Comment: lives home with brother. has 24 hr caregivers Feels Safe at Home: Yes Assistive Devices: Hospital Bed, Mechanical Lift, Nebulizer, Scooter/Electric Scooter and Other Allergies Allergies Allergy/AdvReac Type Severity Reaction Status Date / Time Opioids - Morphine Analogues AdvReac severe Verified 05/17/24 15:46 bradycardia Home Meds Home Medications Medication Instructions Recorded Confirmed albuterol sulfate 2.5 mg/3 mL 2.5 mg inhalation Q4H PRN 08/26/24 09/30/24 (0.083 %) solution for nebulization Shortness Of Breath Or Wheezing apixaban 5 mg tablet (Eliquis) 5 mg PO AMHS 08/26/24 09/30/24 ascorbic acid (vitamin C) 500 mg 500 mg PO DAILY 08/26/24 09/30/24 tablet (Vitamin C) baclofen 10 mg tablet 20 mg PO TID PRN muscle spasms 08/26/24 09/30/24 bisacodyl 10 mg rectal suppository 10 mg WA BID 08/26/24 09/30/24 budesonide-formoterol HFA 160 2 puff inhalation BID 08/26/24 09/30/24 mcg-4.5 mcg/actuation aerosol inhaler docusate sodium 100 mg capsule 100 mg PO BID PRN Constipation 08/26/24 09/30/24 ferrous sulfate 325 mg (65 mg 325 mg PO QDB 08/26/24 09/30/24 iron) tablet,delayed release hydroxyzine HCl 25 mg tablet 25 mg PO DAILY PRN Anxiety 08/26/24 09/30/24 lactulose 10 gram/15 mL oral 20 g PO TID PRN Constipation 08/26/24 09/30/24 solution lidocaine 5 % topical patch 1 patch topical DAILY PRN Pain 08/26/24 09/30/24 midodrine 10 mg tablet 10 mg PO TID PRN Hypotension 08/26/24 09/30/24 nortriptyline 25 mg capsule 25 mg PO HS 08/26/24 09/30/24 oxybutynin chloride 10 mg 10 mg PO QAM 08/26/24 09/30/24 tablet,extended release 24 hr pantoprazole 40 mg tablet,delayed 40 mg DAILY 08/26/24 09/30/24 release sennosides 8.6 mg-docusate sodium 2 tab PO HS 08/26/24 09/30/24 50 mg tablet (Senexon-S) tiotropium bromide 2.5 2 puff inhalation QAM 08/26/24 09/30/24 mcg/actuation mist for inhalation (Spiriva Respimat) acetaminophen 325 mg tablet 650 mg PO Q6 PRN Fever Or Pain 09/30/24 09/30/24 gabapentin 100 mg capsule 200 mg PO AMHS 09/30/24 09/30/24 melatonin 3 mg capsule 3 mg PO HS 09/30/24 09/30/24 multivitamin 1 tab PO DAILY 09/30/24 09/30/24 ondansetron 4 mg disintegrating 4 mg translingual Q6 PRN Nausea 09/30/24 09/30/24 tablet Results & Data (ED) Vital Signs Vital Signs - 24 hr 09/30/24 17:31 09/30/24 17:31 09/30/24 17:31 Temperature 37.7 C H 37.7 C H Temperature Source Oral Oral Pulse Rate 93 H Pulse Rate [Right Brachial] 93 H Pulse Rhythm Regular Pulse Rhythm [Right Brachial] Regular Pulse Strength Normal Pulse Strength [Right Brachial] Normal Respiratory Rate 17 17 Respiratory Effort / Characteristics Non-Labored Non-Labored Respiratory Depth Normal Normal Respiratory Pattern Regular Regular Blood Pressure 93/67 L Blood Pressure [Right Arm] 93/67 L Blood Pressure Mean 75 Blood Pressure Mean [Right Arm] 75 Blood Pressure Position Lying Blood Pressure Position [Right Arm] Lying Pulse Oximetry 92 92 Oxygen Delivery Method Nasal Cannula Room Air Nasal Cannula Oxygen Flow Rate 2 2 Sepsis Recent Fever Within 48 Hours No Sepsis New/Unexplained Change in Mental Status N/A Sepsis Action Taken by Nursing No Action Required Oxygen Flow Rate - Titration Pulse Oximetry Post Tiitration 09/30/24 17:31 09/30/24 17:55 09/30/24 17:55 Temperature Temperature Source Pulse Rate 94 H Pulse Rate [Right Brachial] Pulse Rhythm Pulse Rhythm [Right Brachial] Pulse Strength Pulse Strength [Right Brachial] Respiratory Rate Respiratory Effort / Characteristics Respiratory Depth Respiratory Pattern Blood Pressure Blood Pressure [Right Arm] Blood Pressure Mean Blood Pressure Mean [Right Arm] Blood Pressure Position Blood Pressure Position [Right Arm] Pulse Oximetry 92 92 Oxygen Delivery Method Nasal Cannula Nasal Cannula Aerosol Mask Oxygen Flow Rate 2 2 Sepsis Recent Fever Within 48 Hours Sepsis New/Unexplained Change in Mental Status Sepsis Action Taken by Nursing Oxygen Flow Rate - Titration Pulse Oximetry Post Tiitration 09/30/24 19:31 09/30/24 21:00 09/30/24 21:12 Temperature Temperature Source Pulse Rate Pulse Rate [Right Brachial] 85 83 Pulse Rhythm Pulse Rhythm [Right Brachial] Pulse Strength Pulse Strength [Right Brachial] Respiratory Rate 21 28 H Respiratory Effort / Characteristics Labored Respiratory Depth Respiratory Pattern Blood Pressure Blood Pressure [Right Arm] 117/81 99/72 L Blood Pressure Mean Blood Pressure Mean [Right Arm] 93 81 Blood Pressure Position Blood Pressure Position [Right Arm] Pulse Oximetry 94 90 88 L Oxygen Delivery Method Oxymask Oxymask Oxygen Flow Rate 8 4 Sepsis Recent Fever Within 48 Hours Sepsis New/Unexplained Change in Mental Status Sepsis Action Taken by Nursing Oxygen Flow Rate - Titration 10 Pulse Oximetry Post Tiitration 94 09/30/24 21:46 10/01/24 00:07 Temperature Temperature Source Pulse Rate 81 Pulse Rate [Right Brachial] 64 Pulse Rhythm Pulse Rhythm [Right Brachial] Regular Pulse Strength Pulse Strength [Right Brachial] Respiratory Rate 16 Respiratory Effort / Characteristics Non-Labored Spontaneous Respiratory Depth Normal Respiratory Pattern Blood Pressure Blood Pressure [Right Arm] 139/92 Blood Pressure Mean Blood Pressure Mean [Right Arm] 107 Blood Pressure Position Blood Pressure Position [Right Arm] Pulse Oximetry 94 Oxygen Delivery Method Oxymask Oxygen Flow Rate 10 Sepsis Recent Fever Within 48 Hours Sepsis New/Unexplained Change in Mental Status Sepsis Action Taken by Nursing Oxygen Flow Rate - Titration Pulse Oximetry Post Tiitration Laboratory Data 09/30/24 18:06 09/30/24 19:01 Lab Results 09/30/24 09/30/24 09/30/24 Range/Units 18:06 19:01 19:21 WBC 13.53 H (4.8-10.8) K/ul RBC 4.72 (4.70-6.10) M/uL Hgb 10.3 L (14.0-18.0) g/dl Hct 34.3 L (42.0-52.0) % MCV 72.7 L (80.0-100.0) fL MCH 21.8 L (25.0-34.0) pg MCHC 30.0 L (32.0-36.0) g/dL RDW Std Deviation 48.9 H (36.4-46.3) fL RDW Coeff of Adelia 18.9 H (11.5-14.5) % Plt Count 328 (130-400) K/uL MPV 10.0 (9.4-12.4) fL Immature Gran % (Auto) 0.4 % Neut % (Auto) 77.7 % Lymph % (Auto) 12.8 % [place] % (Auto) 8.2 % Eos % (Auto) 0.5 % Baso % (Auto) 0.4 % Neut # (Auto) 10.52 H (1.40-6.50) K/uL Lymph # (Auto) 1.73 (1.20-3.40) K/uL [place] # (Auto) 1.11 H (0.11-0.59) K/uL Eos # (Auto) 0.07 (0.00-0.50) K/uL Baso # (Auto) 0.05 (0.00-0.20) K/uL Immature Gran # (Auto) 0.05 (0.01-0.20) K/uL VBG pH 7.45 H (7.36-7.41) VBG pCO2 33 L (38-50) mmHg VBG pO2 54 mmHg VBG HCO3 23 mmol/L VBG O2 Saturation 86.8 % VBG Base Excess -0.4 mEq/L Sodium 133 L (136-145) mmol/L Potassium TNP 3.0 L Chloride 102 (98-107) mmol/L Carbon Dioxide 24 (21-32) mmol/L Anion Gap 7 (3-11) BUN 11 (6-23) mg/dl Creatinine 0.62 (0.6-1.4) mg/dl Est Cr Clr Drug Dosing 161.0 ml/min eGFR 118.64 BUN/Creatinine Ratio 17.7 (10-20) Glucose 116 H (70-99(Fasting)) mg/dl Lactate (0.4-2.0) mmol/L Calcium 9.3 (8.6-10.3) mg/dl Magnesium 1.7 (1.7-2.4) mg/dl Total Bilirubin 0.6 (0.2-1.0) mg/dl AST TNP 14 ALT 5 L (7-52) U/L Alkaline Phosphatase 123 H (34-104) U/L Troponin I High Sens 12.2 (0-20) pg/ml Total Protein 7.2 (6.0-8.3) gm/dl Albumin 3.6 (3.4-5.0) gm/dl Globulin 3.6 (2.5-4.0) gm/dl Albumin/Globulin Ratio 1.0 (0.9-2) Lipase 16 (11-82) U/L Procalcitonin Cancelled 0.15 Adenovirus (PCR) Not Detected (NotDetected) B. pertussis DNA (PCR) Not Detected (NotDetected) B.parapertussis DNA PCR Not Detected (NotDetected) C. pneumoniae DNA (PCR) Not Detected (NotDetected) Coronavirus OC43 (PCR) Not Detected (NotDetected) Coronavirus HKU1 (PCR) Not Detected (NotDetected) Coronavirus 229E (PCR) Not Detected (NotDetected) SARS-CoV-2 (PCR) Not Detected (NotDetected) Coronavirus NL63 (PCR) Not Detected (NotDetected) Human Metapneumovir PCR Not Detected (NotDetected) Influenza Type A (PCR) Not Detected (NotDetected) Influenza Type B (PCR) Not Detected (NotDetected) M. pneumoniae (PCR) Not Detected (NotDetected) Parainfluenza 1 (PCR) Not Detected (NotDetected) Parainfluenza 2 (PCR) Not Detected (NotDetected) Parainfluenza 3 (PCR) Not Detected (NotDetected) Parainfluenza 4 (PCR) Not Detected (NotDetected) RSV (PCR) Not Detected (NotDetected) Entero/Rhino (PCR) Not Detected (NotDetected) 09/30/24 Range/Units 22:26 WBC (4.8-10.8) K/ul RBC (4.70-6.10) M/uL Hgb (14.0-18.0) g/dl Hct (42.0-52.0) % MCV (80.0-100.0) fL MCH (25.0-34.0) pg MCHC (32.0-36.0) g/dL RDW Std Deviation (36.4-46.3) fL RDW Coeff of [place]elia (11.5-14.5) % Plt Count (130-400) K/uL MPV (9.4-12.4) fL Immature Gran % (Auto) % Neut % (Auto) % Lymph % (Auto) % [place] % (Auto) % Eos % (Auto) % Baso % (Auto) % Neut # (Auto) (1.40-6.50) K/uL Lymph # (Auto) (1.20-3.40) K/uL [place] # (Auto) (0.11-0.59) K/uL Eos # (Auto) (0.00-0.50) K/uL Baso # (Auto) (0.00-0.20) K/uL Immature Gran # (Auto) (0.01-0.20) K/uL VBG pH (7.36-7.41) VBG pCO2 (38-50) mmHg VBG pO2 mmHg VBG HCO3 mmol/L VBG O2 Saturation % VBG Base Excess mEq/L Sodium (136-145) mmol/L Potassium Chloride (98-107) mmol/L Carbon Dioxide (21-32) mmol/L Anion Gap (3-11) BUN (6-23) mg/dl Creatinine (0.6-1.4) mg/dl Est Cr Clr Drug Dosing ml/min eGFR BUN/Creatinine Ratio (10-20) Glucose (70-99(Fasting)) mg/dl Lactate 0.9 (0.4-2.0) mmol/L Calcium (8.6-10.3) mg/dl Magnesium (1.7-2.4) mg/dl Total Bilirubin (0.2-1.0) mg/dl AST ALT (7-52) U/L Alkaline Phosphatase (34-104) U/L Troponin I High Sens (0-20) pg/ml Total Protein (6.0-8.3) gm/dl Albumin (3.4-5.0) gm/dl Globulin (2.5-4.0) gm/dl Albumin/Globulin Ratio (0.9-2) Lipase (11-82) U/L Procalcitonin Adenovirus (PCR) (NotDetected) B. pertussis DNA (PCR) (NotDetected) B.parapertussis DNA PCR (NotDetected) C. pneumoniae DNA (PCR) (NotDetected) Coronavirus OC43 (PCR) (NotDetected) Coronavirus HKU1 (PCR) (NotDetected) Coronavirus 229E (PCR) (NotDetected) SARS-CoV-2 (PCR) (NotDetected) Coronavirus NL63 (PCR) (NotDetected) Human Metapneumovir PCR (NotDetected) Influenza Type A (PCR) (NotDetected) Influenza Type B (PCR) (NotDetected) M. pneumoniae (PCR) (NotDetected) Parainfluenza 1 (PCR) (NotDetected) Parainfluenza 2 (PCR) (NotDetected) Parainfluenza 3 (PCR) (NotDetected) Parainfluenza 4 (PCR) (NotDetected) RSV (PCR) (NotDetected) Entero/Rhino (PCR) (NotDetected) Administered Medications Discontinued Medications Albuterol (Albut/Ipratrop 3mg/0.5mg Neb 3 Ml Vial) 3 ml NEB NOW STA; Protocol Stop: 09/30/24 21:47 Last Admin: 09/30/24 22:21 Dose: 3 ml Documented By: SON Sodium Chloride (Nss) 1,000 mls @ 999 mls/hr IV .Q1H1M [facility] Stop: 09/30/24 20:00 Last Infusion: 09/30/24 22:50 Dose: Infused Documented By: Admin: 09/30/24 21:24 Dose: 999 mls/hr Documented By: Infusion: 09/30/24 20:20 Dose: Infused Documented By: Admin: 09/30/24 19:02 Dose: 999 mls/hr Documented By: NOHELIA Cefepime HCl (Maxipime 2000mg) 2,000 mg in 20 mls @ 5 mls/min IV NOW STA; Protocol Stop: 09/30/24 18:16 Last Admin: 09/30/24 19:02 Dose: 5 mls/min Documented By: NOHELIA Potassium Chloride (K Pedro / Wtr) 10 meq in 100 mls @ 100 mls/hr IV Q1H [facility] Stop: 09/30/24 22:44 Last Admin: 09/30/24 22:48 Dose: 100 mls/hr Documented By: Infusion: 09/30/24 22:24 Dose: Infused Documented By: Admin: 09/30/24 21:24 Dose: 100 mls/hr Documented By: SON Ketorolac Tromethamine (Ketorolac Tromethamine 15 Mg/Ml Vial) 15 mg IV NOW ONE Stop: 09/30/24 21:48 Last Admin: 09/30/24 22:21 Dose: 15 mg Documented By: SON Potassium Chloride (Potassium Chloride Crtab 20 Meq Tabcr) 40 meq PO NOW STA Stop: 09/30/24 21:48 Last Admin: 09/30/24 22:21 Dose: 40 meq Documented By: SON Imaging Data Radiologist's Impression: Chest X-Ray 09/30/24 17:55 Chest radiograph, one view History: Chest pain Comparison: 09/05/2024 Findings: Single AP view of the chest performed. Mild patchy right basilar opacity appears decreased. No pleural effusion. No pneumothorax. The cardiomediastinal silhouette is within normal limits. Normal pulmonary vascularity. Right hilar fullness could represent continuing lymphadenopathy. No visualized bony or soft tissue abnormality. Impression: Decreased patchy right basilar opacity, which may represent residual atelectasis or infection Electronically signed by Faraz Fine 09-30-2024 6:20 PM Abdomen/Pelvis CT 09/30/24 20:53 Exam(s): CT ABDOMEN + PELVIS Without Contrast EXAM: CT Abdomen and Pelvis Without Intravenous Contrast CLINICAL HISTORY: Reason for exam: sepsis. TECHNIQUE: Axial computed tomography images of the abdomen and pelvis without intravenous contrast. CTDI is 32.78 mGy and DLP is 1763.41 mGy-cm. Automated exposure control was utilized for the study. A dose lowering technique was utilized adhering to the principles of ALARA. COMPARISON: September 05, 2024 FINDINGS: Lung bases: Partial consolidation of both lower lobes may represent pneumonia or atelectasis. ABDOMEN: Liver: Unremarkable. Gallbladder and bile ducts: The gallbladder is absent. No biliary duct prominence postcholecystectomy. No choledocholithiasis is seen. Pancreas: Unremarkable. No ductal dilation. Spleen: Unremarkable. No splenomegaly. Adrenals: Unremarkable. No mass. Kidneys and ureters: There is contrast within the renal collecting system bilaterally. The previously seen calculi are obscured. No hydronephrosis or ureterolithiasis is identified. Stomach and bowel: Bowel loops are nondilated. Scattered gas fluid levels nondilated large and small bowel suggest mild ileus. There is wall thickening involving the distal sigmoid colon and rectum suggesting mild colitis. No pneumoperitoneum, free fluid, or abscess is identified. PELVIS: Appendix: No findings to suggest acute appendicitis. Bladder: There is a suprapubic catheter partially decompressing the urinary bladder. No stones. Reproductive: Unremarkable as visualized. ABDOMEN and PELVIS: Intraperitoneal space: See above. Bones/joints: There is a decubitus ulcer measuring approximately 4 cm transverse by 3 cm deep which extends down through the posterior elements of the lower sacrum and has reabsorbed the coccyx. There is debris and/or packing material within the lower sacral canal. No acute fracture. No dislocation. Soft tissues: Unremarkable. Vasculature: Unremarkable. No abdominal aortic aneurysm. Lymph nodes: Unremarkable. No enlarged lymph nodes. IMPRESSION: 1. Bowel loops are nondilated. Scattered gas fluid levels nondilated large and small bowel suggest mild ileus. There is wall thickening involving the distal sigmoid colon and rectum suggesting mild colitis. No pneumoperitoneum, free fluid, or abscess is identified. 2. Partial consolidation of both lower lobes may represent pneumonia or atelectasis. This is mildly increased compared to previous. 3. There is a decubitus ulcer measuring approximately 4 cm transverse by 3 cm deep which extends down through the posterior elements of the lower sacrum and has reabsorbed the coccyx. There is debris and/or packing material within the lower sacral canal. 4. There is contrast within the renal collecting system bilaterally. The previously seen calculi are not visible. No hydronephrosis or ureterolithiasis is identified. 5. There is a suprapubic catheter partially decompressing the urinary bladder. Electronically signed by: Cooper Miles MD 09/30/24 22:[address] 09/30/24 21:13 Exam(s): CT CHEST Without Contrast EXAM: CT Chest Without Intravenous Contrast CLINICAL HISTORY: Reason for exam: hypoxic. TECHNIQUE: Axial computed tomography images of the chest without intravenous contrast. CTDI is 22.19 mGy and DLP is 672.03 mGy-cm. Automated exposure control was utilized for the study. A dose lowering technique was utilized adhering to the principles of ALARA. COMPARISON: September 05, 2024 FINDINGS: Lungs: Consolidation of most of the right lower lobe and areas of infiltrate and/or atelectasis in the left lower lobe and dependent portion of the right upper and middle lobes. There is debris in the distal right mainstem bronchus as well as the lower and middle lobe bronchi. No mass. Pleural space: Unremarkable. No pneumothorax. No significant effusion. Heart: Unremarkable. No cardiomegaly. No significant pericardial effusion. No significant coronary artery calcifications. Bones/joints: Mild degenerative changes in both shoulders. Metallic artifact from previous lower cervical spine fusion. Mild degenerative changes throughout the spine. No acute fracture or destructive bone lesion is seen. No dislocation. Soft tissues: Unremarkable. Vasculature: Unremarkable. No thoracic aortic aneurysm. Lymph nodes: Unremarkable. No enlarged lymph nodes. IMPRESSION: 1. Consolidation of most of the right lower lobe and areas of infiltrate and/or atelectasis in the left lower lobe and dependent portion of the right upper and middle lobes. This is somewhat increased compared to previous. 2. There is debris in the distal right mainstem bronchus as well as the lower and middle lobe bronchi. Electronically signed by: Cooper Miles MD 09/30/24 23:24 PM Discharge Plan Visit Data Chief Complaint: Shortness of Breath/Dyspnea Stated Complaint: shortness of breath ED Provider: Eric Gonzalez Discharge Problem: Hypoxic respiratory failure, Abdominal pain, Acute hypokalemia, Acute hypotension Forms Stand Alone Forms: [facility] Prescriptions Prescriptions: No Action gabapentin 100 mg capsule 200 mg PO AMHS melatonin 3 mg capsule 3 mg PO HS Multivitamin W/Vitamin C Tablet,Chewable 1 tab PO DAILY acetaminophen 325 mg Tablet 650 mg PO Q6 PRN (Reason: Fever Or Pain) Rx Instructions: use for mild pain or fever >38c (100.5f) ondansetron 4 mg tablet,disintegrating 4 mg translingual Q6 PRN (Reason: Nausea) albuterol sulfate 2.5 mg /3 mL (0.083 %) Solution For Nebulization 2.5 mg INHALATION Q4H PRN (Reason: Shortness Of Breath Or Wheezing) oxybutynin chloride 10 mg tablet extended release 24hr 10 mg PO QAM sennosides-docusate sodium [Senexon-S] 8.6-50 mg tablet 2 tab PO HS Rx Instructions: hold for loost stool nortriptyline 25 mg capsule 25 mg PO HS bisacodyl 10 mg suppository 10 mg WA BID Rx Instructions: hold for loose stool lidocaine 5 % adhesive patch,medicated 1 patch topical DAILY PRN (Reason: Pain) docusate sodium 100 mg capsule 100 mg PO BID PRN (Reason: Constipation) hydroxyzine HCl 25 mg tablet 25 mg PO DAILY PRN (Reason: Anxiety) ferrous sulfate 325 mg (65 mg iron) tablet,delayed release (DR/EC) 325 mg PO QDB midodrine 10 mg tablet 10 mg PO TID PRN (Reason: Hypotension) Rx Instructions: PRN SBP< 90 lactulose 10 gram/15 mL solution 20 g PO TID PRN (Reason: Constipation) budesonide-formoterol 160-4.5 mcg/actuation HFA aerosol inhaler 2 puff INHALATION BID Spiriva Respimat 2.5 mcg/actuation mist 2 puff INHALATION QAM Eliquis 5 mg tablet 5 mg PO [facility] ascorbic acid (vitamin C) [Vitamin C] 500 mg tablet 500 mg PO DAILY baclofen 10 mg tablet 20 mg PO TID PRN (Reason: muscle spasms) pantoprazole 40 mg tablet,delayed release (DR/EC) 40 mg DAILY Referrals Referrals: Chay Aguilar DO [Primary Care Provider] - Discharge Problem: Hypoxic respiratory failure Qualifiers: Chronicity: unspecified Qualified Code(s): J96.91 - Respiratory failure, unspecified with hypoxia Abdominal pain Qualifiers: Abdominal location: unspecified location Qualified Code(s): R10.9 - Unspecified abdominal pain
--- NOTE | 2024-09-30 18:21 | XRay Report ---
Chest radiograph, one view History: Chest pain Comparison: 09/05/2024 Findings: Single AP view of the chest performed. Mild patchy right basilar opacity appears decreased. No pleural effusion. No pneumothorax. The cardiomediastinal silhouette is within normal limits. Normal pulmonary vascularity. Right hilar fullness could represent continuing lymphadenopathy. No visualized bony or soft tissue abnormality. Impression: Decreased patchy right basilar opacity, which may represent residual atelectasis or infection Electronically signed by Faraz Fine 09-30-2024 6:20 PM
[2024-09-30 18:24] LABS: Basophils # (auto) 0.05 K/uL (0.00-0.20); Basophils % (auto) 0.4 %; Eosinophils # (auto) 0.07 K/uL (0.00-0.50); Eosinophils % (auto) 0.5 %; Hematocrit (blood only) 34.3 % (42.0-52.0); Hemoglobin 10.3 g/dl (14.0-18.0); Immature Granulocytes # (auto) 0.05 K/uL (0.01-0.20); Immature Granulocytes % (auto) 0.4 %; Lymphocytes # (auto) 1.73 K/uL (1.20-3.40); Lymphocytes % (auto) 12.8 %; Mean Corpuscular Hemoglobin 21.8 pg (25.0-34.0); Mean Corpuscular Volume 72.7 fL (80.0-100.0); Monocytes # (auto) 1.11 K/uL (0.11-0.59); Monocytes % (auto) 8.2 %; Neutrophils # (auto) 10.52 K/uL (1.40-6.50); Neutrophils % (auto) 77.7 %; Platelet Count 328 K/uL (130-400); RDW Coefficient of Variation 18.9 % (11.5-14.5); RDW Standard Deviation 48.9 fL (36.4-46.3); Red Blood Count 4.72 M/uL (4.70-6.10); White Blood Count 13.53 K/ul (4.8-10.8)
[2024-09-30] MEDS: CEFEPIME 2000MG 2,000 MG/20 ML SYR IV STA (19:02)
[2024-09-30] MEDS: SODIUM CHLORIDE 0.9% 1,000 ML IV SCH (19:02)
[2024-09-30 19:14] LABS: Alanine Aminotransferase 5 U/L (7-52); Albumin Level 3.6 gm/dl (3.4-5.0); Alkaline Phosphatase 123 U/L (34-104); Anion Gap 7 (3-11); BUN Creatinine Ratio 17.7 (10-20); Bilirubin,Total 0.6 mg/dl (0.2-1.0); Blood Urea Nitrogen 11 mg/dl (6-23); Calcium 9.3 mg/dl (8.6-10.3); Carbon Dioxide 24 mmol/L (21-32); Chloride 102 mmol/L (98-107); Globulin 3.6 gm/dl (2.5-4.0); Glucose 116 mg/dl (70-99(Fasting)); Lipase 16 U/L (11-82); Sodium 133 mmol/L (136-145); Total Protein 7.2 gm/dl (6.0-8.3); Troponin I High Sensitivity 12.2 pg/ml (0-20)
[2024-09-30 19:26] LABS: Base Excess VBG -0.4 mEq/L; HCO3 VBG 23 mmol/L; Oxygen Saturation VBG 86.8 %; PCO2 VBG 33 mmHg (38-50); PO2 VBG 54 mmHg; pH VBG 7.45 (7.36-7.41)
[2024-09-30 20:17] LABS: Adenovirus PCR Not Detected (NotDetected); Bordetella parapertussis PCR Not Detected (NotDetected); Bordetella pertussis PCR Not Detected (NotDetected); Chlamydia pneumoniae PCR Not Detected (NotDetected); Coronavirus 229E PCR Not Detected (NotDetected); Coronavirus CoV-2 (COVID19)PCR Not Detected (NotDetected); Coronavirus HKU1 PCR Not Detected (NotDetected); Coronavirus NL63 PCR Not Detected (NotDetected); Coronavirus OC43PCR Not Detected (NotDetected); Human Metapneumovirus PCR Not Detected (NotDetected); Influenza A PCR Not Detected (NotDetected); Influenza B PCR Not Detected (NotDetected); Mycoplasma pneumoniae PCR Not Detected (NotDetected); Parainfluenza Virus 1 PCR Not Detected (NotDetected); Parainfluenza Virus 2 PCR Not Detected (NotDetected); Parainfluenza Virus 3 PCR Not Detected (NotDetected); Parainfluenza Virus 4 PCR Not Detected (NotDetected); Respiratory Syncytial VirusPCR Not Detected (NotDetected); Rhinovirus/Enterovirus PCR Not Detected (NotDetected)
[2024-09-30] MEDS: POTASSIUM CHLORIDE / WTR 10 MEQ/100 ML PLCT IV SCH (21:24)
[2024-09-30] MEDS: KETOROLAC TROMETHAMINE 15 MG/ML VIAL IV ONE (22:21)
[2024-09-30] MEDS: ALBUT/IPRATROP 3MG/0.5MG NEB 3 ML VIAL NEB STA (22:21)
[2024-09-30] MEDS: POTASSIUM CHLORIDE CRTAB 20 MEQ TABCR PO STA (22:21)
[2024-09-30 22:42] LABS: Magnesium 1.7 mg/dl (1.7-2.4)
--- NOTE | 2024-09-30 22:51 | CT Scan Report ---
Exam(s): CT ABDOMEN + PELVIS Without Contrast EXAM: CT Abdomen and Pelvis Without Intravenous Contrast CLINICAL HISTORY: Reason for exam: sepsis. TECHNIQUE: Axial computed tomography images of the abdomen and pelvis without intravenous contrast. CTDI is 32.78 mGy and DLP is 1763.41 mGy-cm. Automated exposure control was utilized for the study. A dose lowering technique was utilized adhering to the principles of ALARA. COMPARISON: September 05, 2024 FINDINGS: Lung bases: Partial consolidation of both lower lobes may represent pneumonia or atelectasis. ABDOMEN: Liver: Unremarkable. Gallbladder and bile ducts: The gallbladder is absent. No biliary duct prominence postcholecystectomy. No choledocholithiasis is seen. Pancreas: Unremarkable. No ductal dilation. Spleen: Unremarkable. No splenomegaly. Adrenals: Unremarkable. No mass. Kidneys and ureters: There is contrast within the renal collecting system bilaterally. The previously seen calculi are obscured. No hydronephrosis or ureterolithiasis is identified. Stomach and bowel: Bowel loops are nondilated. Scattered gas fluid levels nondilated large and small bowel suggest mild ileus. There is wall thickening involving the distal sigmoid colon and rectum suggesting mild colitis. No pneumoperitoneum, free fluid, or abscess is identified. PELVIS: Appendix: No findings to suggest acute appendicitis. Bladder: There is a suprapubic catheter partially decompressing the urinary bladder. No stones. Reproductive: Unremarkable as visualized. ABDOMEN and PELVIS: Intraperitoneal space: See above. Bones/joints: There is a decubitus ulcer measuring approximately 4 cm transverse by 3 cm deep which extends down through the posterior elements of the lower sacrum and has reabsorbed the coccyx. There is debris and/or packing material within the lower sacral canal. No acute fracture. No dislocation. Soft tissues: Unremarkable. Vasculature: Unremarkable. No abdominal aortic aneurysm. Lymph nodes: Unremarkable. No enlarged lymph nodes. IMPRESSION: 1. Bowel loops are nondilated. Scattered gas fluid levels nondilated large and small bowel suggest mild ileus. There is wall thickening involving the distal sigmoid colon and rectum suggesting mild colitis. No pneumoperitoneum, free fluid, or abscess is identified. 2. Partial consolidation of both lower lobes may represent pneumonia or atelectasis. This is mildly increased compared to previous. 3. There is a decubitus ulcer measuring approximately 4 cm transverse by 3 cm deep which extends down through the posterior elements of the lower sacrum and has reabsorbed the coccyx. There is debris and/or packing material within the lower sacral canal. 4. There is contrast within the renal collecting system bilaterally. The previously seen calculi are not visible. No hydronephrosis or ureterolithiasis is identified. 5. There is a suprapubic catheter partially decompressing the urinary bladder. Electronically signed by: Cooper Miles MD 09/30/24 22:50 PM
--- NOTE | 2024-09-30 23:25 | CT Scan Report ---
Exam(s): CT CHEST Without Contrast EXAM: CT Chest Without Intravenous Contrast CLINICAL HISTORY: Reason for exam: hypoxic. TECHNIQUE: Axial computed tomography images of the chest without intravenous contrast. CTDI is 22.19 mGy and DLP is 672.03 mGy-cm. Automated exposure control was utilized for the study. A dose lowering technique was utilized adhering to the principles of ALARA. COMPARISON: September 05, 2024 FINDINGS: Lungs: Consolidation of most of the right lower lobe and areas of infiltrate and/or atelectasis in the left lower lobe and dependent portion of the right upper and middle lobes. There is debris in the distal right mainstem bronchus as well as the lower and middle lobe bronchi. No mass. Pleural space: Unremarkable. No pneumothorax. No significant effusion. Heart: Unremarkable. No cardiomegaly. No significant pericardial effusion. No significant coronary artery calcifications. Bones/joints: Mild degenerative changes in both shoulders. Metallic artifact from previous lower cervical spine fusion. Mild degenerative changes throughout the spine. No acute fracture or destructive bone lesion is seen. No dislocation. Soft tissues: Unremarkable. Vasculature: Unremarkable. No thoracic aortic aneurysm. Lymph nodes: Unremarkable. No enlarged lymph nodes. IMPRESSION: 1. Consolidation of most of the right lower lobe and areas of infiltrate and/or atelectasis in the left lower lobe and dependent portion of the right upper and middle lobes. This is somewhat increased compared to previous. 2. There is debris in the distal right mainstem bronchus as well as the lower and middle lobe bronchi. Electronically signed by: Cooper Miles MD 09/30/24 23:24 PM
[2024-10-01] MEDS ORDERED: VANCOMYCIN CONSULT ACTIVE PRN (00:11)
[2024-10-01] MEDS: VANCOMYCIN HCL 1,750 MG in SODIUM CHLORIDE 0.9% 500 ML IV ONE (00:57)
--- NOTE | 2024-10-01 02:36 | History & Physical Report ---
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) Acute hypoxemic respiratory failure secondary to COPD exacerbation secondary to HCAP chronic diastolic heart failure (EF 65%, TTE 2022), patient on the dry side hypotension on as needed midodrine saddle PE on Eliquis HCV status post Rx chronic anemia, hemoglobin at baseline chronic sacral decubitus/leg osteomyelitis chronic pain/substance abuse as per records anxiety/mood disorder, at baseline Functional disability hx MRSA Admit to medical telemetry CS, doxycycline, Zosyn Supplemental O2, nebs RTC, prednisone course for COPD exacerbation Aspiration precautions Judicious narcotic use given substance abuse PT OT eval once medically stable Nicotine patch as needed DVT prophylaxis. Eliquis Full code Patient sister requesting updates from provider. Ms. Lyn Fried, contact #[phone]. Total critical care time was 40 minutes. Text document was generated using [employer] voice recognition software. It may contain grammatical or spelling errors. Kindly contact undersigned for clarification of any documentation item in question. History of Present Illness Chief Complaint: Abdominal pain, cough, SOB Primary Care Provider: Chay Goins Capp, History obtained from patient, family, and records. 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 Patient had worsening left abdominal discomfort over the last few days. No vomiting. Bowel movement yesterday. Worsening cough symptoms with SOB. Denies aspiration. Not sure about sick contacts. Lowest O2 sats in 80s documented at the ER. Vancomycin and cefepime administered at the ER. Medical History as above Surgical History : Ankle surgery, neck surgery, urologic procedures, arm surgery, appendectomy, leg abscess drainage/metatarsal surgery, cholecystectomy Family History : Heart disease Personal/Social history : 2 packs daily, occasional EtOH intake, disabled Allergies Allergy/AdvReac Type Severity Reaction Status Date / Time Opioids - Morphine Analogues AdvReac severe Verified 05/17/24 15:46 bradycardia Home Medications Medication Instructions Recorded Confirmed Type albuterol sulfate 2.5 mg/3 mL 2.5 mg inhalation Q4H PRN 08/26/24 09/30/24 History (0.083 %) solution for nebulization Shortness Of Breath Or Wheezing apixaban 5 mg tablet (Eliquis) 5 mg PO AMHS 08/26/24 09/30/24 History ascorbic acid (vitamin C) 500 mg 500 mg PO DAILY 08/26/24 09/30/24 History tablet (Vitamin C) baclofen 10 mg tablet 20 mg PO TID PRN muscle spasms 08/26/24 09/30/24 History bisacodyl 10 mg rectal suppository 10 mg OR BID 08/26/24 09/30/24 History budesonide-formoterol HFA 160 2 puff inhalation BID 08/26/24 09/30/24 History mcg-4.5 mcg/actuation aerosol inhaler docusate sodium 100 mg capsule 100 mg PO BID PRN Constipation 08/26/24 09/30/24 History ferrous sulfate 325 mg (65 mg 325 mg PO QDB 08/26/24 09/30/24 History iron) tablet,delayed release hydroxyzine HCl 25 mg tablet 25 mg PO DAILY PRN Anxiety 08/26/24 09/30/24 History lactulose 10 gram/15 mL oral 20 g PO TID PRN Constipation 08/26/24 09/30/24 History solution lidocaine 5 % topical patch 1 patch topical DAILY PRN Pain 08/26/24 09/30/24 History midodrine 10 mg tablet 10 mg PO TID PRN Hypotension 08/26/24 09/30/24 History nortriptyline 25 mg capsule 25 mg PO HS 08/26/24 09/30/24 History oxybutynin chloride 10 mg 10 mg PO QAM 08/26/24 09/30/24 History tablet,extended release 24 hr pantoprazole 40 mg tablet,delayed 40 mg DAILY 08/26/24 09/30/24 History release sennosides 8.6 mg-docusate sodium 2 tab PO HS 08/26/24 09/30/24 History 50 mg tablet (Senexon-S) tiotropium bromide 2.5 2 puff inhalation QAM 08/26/24 09/30/24 History mcg/actuation mist for inhalation (Spiriva Respimat) acetaminophen 325 mg tablet 650 mg PO Q6 PRN Fever Or Pain 09/30/24 09/30/24 History gabapentin 100 mg capsule 200 mg PO AMHS 09/30/24 09/30/24 History melatonin 3 mg capsule 3 mg PO HS 09/30/24 09/30/24 History multivitamin 1 tab PO DAILY 09/30/24 09/30/24 History ondansetron 4 mg disintegrating 4 mg translingual Q6 PRN Nausea 09/30/24 09/30/24 History tablet Past Med/Surg History Problem List (Updated 10/01/24 @ 00:11 by Eric Gonzalez DO) Acute hypotension (Acute) Acute hypokalemia (Acute) Abdominal pain (Acute) Hypoxic respiratory failure (Acute) Soft tissue infection Hypokalemia (Acute) Acute UTI (Acute) Pneumonia involving right lung (Acute) Sepsis (Acute) Elevated hemidiaphragm Abnormal chest CT Pneumonia (Acute) Cough (Acute) Left sided abdominal pain (Acute) Quadriplegia (Acute) Hypotension (Acute) Abdominal pain Autonomic dysreflexia Constipation Hydronephrosis (Acute) Acute urinary retention (Acute) Leukocytosis (Acute) Complication, blocked suprapubic catheter Hypokalemia (Acute) Hypomagnesemia (Acute) Anemia (Acute) Quadriplegia (Acute) Sacral decubitus ulcer (Acute) Acute UTI (Acute) Hypotension (Acute) Encephalopathy Pneumonia (Acute) Complicated urinary tract infection (Acute Unknown) Change or removal of nonsurgical wound dressing Acute hypoxemic respiratory failure (Acute) Chest pain (Acute) Severe sepsis (Acute) MRSA carrier Pneumonia (Acute) Hypoxic respiratory failure (Acute) 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 Leg wound, right Leg wound, left History of pulmonary embolism Hypoxia (Acute) RSV (respiratory syncytial virus infection) Chronic pain (Acute) Suprapubic catheter (Acute) Complicated UTI (urinary tract infection) (Acute) Sacral decubitus ulcer, stage IV (Acute) Chronic osteomyelitis of sacrum Medical History Acute UTI Abdominal pain Aspiration pneumonitis Pneumonia Paraplegia Surgical History No pertinent past surgical history Social History Smoking Status: Former smoker Tobacco Type: Cigarettes Cigarettes Per Day: 1/2ppd; Second Hand Exposure: Yes; Do You Dip or Chew Tobacco: Yes; Hx Alcohol Use: Yes Alcohol type: hard liquor Hx Substance Use: Yes Non-Prescribed Medications: Crack / Cocaine and Marijuana Last Used Substance: Unknown Preferred Language: Moldovan Communication Ability: Effective Communication Ability Comment: difficulty writing Lubrication Equipment Servicer Required: No Beliefs That Will Affect Care: None Current Living Situation: Family Current Living Situation Comment: lives home with brother. has 24 hr caregivers Other Information That Helps Us Care for You: No Feels Safe at Home: Yes Safety Concerns: Feels Safe At This Time Assistive Devices: Hospital Bed, Mechanical Lift, Nebulizer, Scooter/Electric Scooter and Other Assistive Devices Comment: foam board to assist with holding phone/drink Review of Systems Review of Systems: As per HPI, all other systems reviewed and negative Physical Exam Physical Exam: GENERAL: looks older than stated age, chronically ill, no respiratory distress SKIN: Pallor HEENT: Alopecia, pale palpebral conjunctivae, no ptosis, dry buccal mucosa, nasal cannula in place NECK : Supple, no tenderness CHEST : Decreased breath sounds, diffuse expiratory wheezes, no tenderness HEART : RRR, no obvious murmurs ABDOMEN: Some distention, minimal hypogastric tenderness EXTREMITIES : Minimal LE swelling/tenderness, posterior surfaces not examined NEUROLOGIC : Coherent, no facial asymmetry, MMTS BUE 3/5, BLE 0 Results & Data Results & Data Vital Signs (Past 12 Hours) Vital Signs Temp Pulse Pulse Resp BP BP Pulse Ox 10/01/24 01:38 66 10/01/24 01:08 61 16 135/94 98 10/01/24 00:07 64 16 139/92 94 09/30/24 21:46 81 09/30/24 21:12 88 L 09/30/24 21:00 83 28 H 99/72 L 90 09/30/24 19:31 85 21 117/81 94 02/23/25 17:55 92 09/30/24 17:55 94 H 09/30/24 17:31 92 09/30/24 17:31 37.7 C H 93 H 17 93/67 L 92 09/30/24 17:31 09/30/24 17:31 37.7 C H 93 H 17 93/67 L 92 O2 Del Method O2 Flow Rate 10/01/24 01:38 10/01/24 01:08 Oxymask 10 10/01/24 00:07 Oxymask 10 09/30/24 21:46 09/30/24 21:12 Oxymask 4 09/30/24 21:00 Oxymask 8 09/30/24 19:31 09/30/24 17:55 Nasal Cannula, Aerosol Mask 2 09/30/24 17:55 09/30/24 17:31 Nasal Cannula 2 09/30/24 17:31 Nasal Cannula 2 09/30/24 17:31 Room Air 09/30/24 17:31 Nasal Cannula 2 Laboratory Results Laboratory Results WBC 13.53 K/ul (4.8-10.8) H 09/30/24 18:06 RBC 4.72 M/uL (4.70-6.10) 09/30/24 18:06 Hgb 10.3 g/dl (14.0-18.0) L 09/30/24 18:06 Hct 34.3 % (42.0-52.0) L 09/30/24 18:06 MCV 72.7 fL (80.0-100.0) L 09/30/24 18:06 MCH 21.8 pg (25.0-34.0) L 09/30/24 18:06 MCHC 30.0 g/dL (32.0-36.0) L 09/30/24 18:06 RDW Std Deviation 48.9 fL (36.4-46.3) H 09/30/24 18:06 RDW Coeff of [place] 18.9 % (11.5-14.5) H 09/30/24 18:06 Plt Count 328 K/uL (130-400) 09/30/24 18:06 MPV 10.0 fL (9.4-12.4) 09/30/24 18:06 Immature Gran % (Auto) 0.4 % 09/30/24 18:06 Neut % (Auto) 77.7 % 09/30/24 18:06 Lymph % (Auto) 12.8 % 09/30/24 18:06 [place] % (Auto) 8.2 % 09/30/24 18:06 Eos % (Auto) 0.5 % 09/30/24 18:06 Baso % (Auto) 0.4 % 09/30/24 18:06 Neut # (Auto) 10.52 K/uL (1.40-6.50) H 09/30/24 18:06 Lymph # (Auto) 1.73 K/uL (1.20-3.40) 09/30/24 18:06 [place] # (Auto) 1.11 K/uL (0.11-0.59) H 09/30/24 18:06 Eos # (Auto) 0.07 K/uL (0.00-0.50) 09/30/24 18:06 Baso # (Auto) 0.05 K/uL (0.00-0.20) 09/30/24 18:06 Immature Gran # (Auto) 0.05 K/uL (0.01-0.20) 09/30/24 18:06 VBG pH 7.45 (7.36-7.41) H 09/30/24 19:01 VBG pCO2 33 mmHg (38-50) L 09/30/24 19:01 VBG pO2 54 mmHg 09/30/24 19:01 VBG HCO3 23 mmol/L 09/30/24 19:01 VBG O2 Saturation 86.8 % 09/30/24 19:01 VBG Base Excess -0.4 mEq/L 09/30/24 19:01 Sodium 133 mmol/L (136-145) L 09/30/24 18:06 Potassium 3.0 mmol/L (3.5-5.1) L 09/30/24 19:01 Chloride 102 mmol/L (98-107) 09/30/24 18:06 Carbon Dioxide 24 mmol/L (21-32) 09/30/24 18:06 Anion Gap 7 (3-11) 09/30/24 18:06 BUN 11 mg/dl (6-23) 09/30/24 18:06 Creatinine 0.62 mg/dl (0.6-1.4) 09/30/24 18:06 Est Cr Clr Drug Dosing 161.0 ml/min 09/30/24 18:06 eGFR 118.64 09/30/24 18:06 BUN/Creatinine Ratio 17.7 (10-20) 09/30/24 18:06 Glucose 116 mg/dl (70-99(Fasting)) H 09/30/24 18:06 Lactate 0.9 mmol/L (0.4-2.0) 09/30/24 22:26 Calcium 9.3 mg/dl (8.6-10.3) 09/30/24 18:06 Magnesium 1.7 mg/dl (1.7-2.4) 09/30/24 19:01 Total Bilirubin 0.6 mg/dl (0.2-1.0) 09/30/24 18:06 AST 14 U/L (13-39) 09/30/24 19:01 ALT 5 U/L (7-52) L 09/30/24 18:06 Alkaline Phosphatase 123 U/L (34-104) H 09/30/24 18:06 Troponin I High Sens 12.2 pg/ml (0-20) 09/30/24 18:06 Total Protein 7.2 gm/dl (6.0-8.3) 09/30/24 18:06 Albumin 3.6 gm/dl (3.4-5.0) 09/30/24 18:06 Globulin 3.6 gm/dl (2.5-4.0) 09/30/24 18:06 Albumin/Globulin Ratio 1.0 (0.9-2) 09/30/24 18:06 Lipase 16 U/L (11-82) 09/30/24 18:06 Procalcitonin 0.15 ng/ml (0-0.5) 09/30/24 19:01 Adenovirus (PCR) Not Detected (NotDetected) 09/30/24 19:21 B. pertussis DNA (PCR) Not Detected (NotDetected) 09/30/24 19:21 B.parapertussis DNA PCR Not Detected (NotDetected) 09/30/24 19:21 C. pneumoniae DNA (PCR) Not Detected (NotDetected) 09/30/24 19:21 Coronavirus OC43 (PCR) Not Detected (NotDetected) 09/30/24 19:21 Coronavirus HKU1 (PCR) Not Detected (NotDetected) 09/30/24 19:21 Coronavirus 229E (PCR) Not Detected (NotDetected) 09/30/24 19:21 SARS-CoV-2 (PCR) Not Detected (NotDetected) 09/30/24 19:21 Coronavirus NL63 (PCR) Not Detected (NotDetected) 09/30/24 19:21 Human Metapneumovir PCR Not Detected (NotDetected) 09/30/24 19:21 Influenza Type A (PCR) Not Detected (NotDetected) 09/30/24 19:21 Influenza Type B (PCR) Not Detected (NotDetected) 09/30/24 19:21 M. pneumoniae (PCR) Not Detected (NotDetected) 09/30/24 19:21 Parainfluenza 1 (PCR) Not Detected (NotDetected) 09/30/24 19:21 Parainfluenza 2 (PCR) Not Detected (NotDetected) 09/30/24 19:21 Parainfluenza 3 (PCR) Not Detected (NotDetected) 09/30/24 19:21 Parainfluenza 4 (PCR) Not Detected (NotDetected) 09/30/24 19:21 RSV (PCR) Not Detected (NotDetected) 09/30/24 19:21 Entero/Rhino (PCR) Not Detected (NotDetected) 09/30/24 19:21 Impressions Chest X-Ray 09/30/24 17:55 Chest radiograph, one view History: Chest pain Comparison: 09/05/2024 Findings: Single AP view of the chest performed. Mild patchy right basilar opacity appears decreased. No pleural effusion. No pneumothorax. The cardiomediastinal silhouette is within normal limits. Normal pulmonary vascularity. Right hilar fullness could represent continuing lymphadenopathy. No visualized bony or soft tissue abnormality. Impression: Decreased patchy right basilar opacity, which may represent residual atelectasis or infection Electronically signed by Faraz Fine 09-30-2024 6:20 PM Abdomen/Pelvis CT 09/30/24 20:53 Exam(s): CT ABDOMEN + PELVIS Without Contrast EXAM: CT Abdomen and Pelvis Without Intravenous Contrast CLINICAL HISTORY: Reason for exam: sepsis. TECHNIQUE: Axial computed tomography images of the abdomen and pelvis without intravenous contrast. CTDI is 32.78 mGy and DLP is 1763.41 mGy-cm. Automated exposure control was utilized for the study. A dose lowering technique was utilized adhering to the principles of ALARA. COMPARISON: September 05, 2024 FINDINGS: Lung bases: Partial consolidation of both lower lobes may represent pneumonia or atelectasis. ABDOMEN: Liver: Unremarkable. Gallbladder and bile ducts: The gallbladder is absent. No biliary duct prominence postcholecystectomy. No choledocholithiasis is seen. Pancreas: Unremarkable. No ductal dilation. Spleen: Unremarkable. No splenomegaly. Adrenals: Unremarkable. No mass. Kidneys and ureters: There is contrast within the renal collecting system bilaterally. The previously seen calculi are obscured. No hydronephrosis or ureterolithiasis is identified. Stomach and bowel: Bowel loops are nondilated. Scattered gas fluid levels nondilated large and small bowel suggest mild ileus. There is wall thickening involving the distal sigmoid colon and rectum suggesting mild colitis. No pneumoperitoneum, free fluid, or abscess is identified. PELVIS: Appendix: No findings to suggest acute appendicitis. Bladder: There is a suprapubic catheter partially decompressing the urinary bladder. No stones. Reproductive: Unremarkable as visualized. ABDOMEN and PELVIS: Intraperitoneal space: See above. Bones/joints: There is a decubitus ulcer measuring approximately 4 cm transverse by 3 cm deep which extends down through the posterior elements of the lower sacrum and has reabsorbed the coccyx. There is debris and/or packing material within the lower sacral canal. No acute fracture. No dislocation. Soft tissues: Unremarkable. Vasculature: Unremarkable. No abdominal aortic aneurysm. Lymph nodes: Unremarkable. No enlarged lymph nodes. IMPRESSION: 1. Bowel loops are nondilated. Scattered gas fluid levels nondilated large and small bowel suggest mild ileus. There is wall thickening involving the distal sigmoid colon and rectum suggesting mild colitis. No pneumoperitoneum, free fluid, or abscess is identified. 2. Partial consolidation of both lower lobes may represent pneumonia or atelectasis. This is mildly increased compared to previous. 3. There is a decubitus ulcer measuring approximately 4 cm transverse by 3 cm deep which extends down through the posterior elements of the lower sacrum and has reabsorbed the coccyx. There is debris and/or packing material within the lower sacral canal. 4. There is contrast within the renal collecting system bilaterally. The previously seen calculi are not visible. No hydronephrosis or ureterolithiasis is identified. 5. There is a suprapubic catheter partially decompressing the urinary bladder. Electronically signed by: Cooper Miles MD 09/30/24 22:[address] 09/30/24 21:13 Exam(s): CT CHEST Without Contrast EXAM: CT Chest Without Intravenous Contrast CLINICAL HISTORY: Reason for exam: hypoxic. TECHNIQUE: Axial computed tomography images of the chest without intravenous contrast. CTDI is 22.19 mGy and DLP is 672.03 mGy-cm. Automated exposure control was utilized for the study. A dose lowering technique was utilized adhering to the principles of ALARA. COMPARISON: September 05, 2024 FINDINGS: Lungs: Consolidation of most of the right lower lobe and areas of infiltrate and/or atelectasis in the left lower lobe and dependent portion of the right upper and middle lobes. There is debris in the distal right mainstem bronchus as well as the lower and middle lobe bronchi. No mass. Pleural space: Unremarkable. No pneumothorax. No significant effusion. Heart: Unremarkable. No cardiomegaly. No significant pericardial effusion. No significant coronary artery calcifications. Bones/joints: Mild degenerative changes in both shoulders. Metallic artifact from previous lower cervical spine fusion. Mild degenerative changes throughout the spine. No acute fracture or destructive bone lesion is seen. No dislocation. Soft tissues: Unremarkable. Vasculature: Unremarkable. No thoracic aortic aneurysm. Lymph nodes: Unremarkable. No enlarged lymph nodes. IMPRESSION: 1. Consolidation of most of the right lower lobe and areas of infiltrate and/or atelectasis in the left lower lobe and dependent portion of the right upper and middle lobes. This is somewhat increased compared to previous. 2. There is debris in the distal right mainstem bronchus as well as the lower and middle lobe bronchi. Electronically signed by: Cooper Miles MD 09/30/24 23:24 PM Diagnostic Findings EKG as per my interpretation :Rate 95, NSR, LAD, LAFB, incomplete RBBB, T wave abnormalities septal leads (1) Sepsis Sepsis acute organ dysfunction status: unspecified Sepsis type: sepsis due to unspecified organism Qualified Code(s): A41.9 - Sepsis, unspecified organism
[2024-10-01] MEDS ORDERED: hydrOXYzine HCl 25 MG TAB PO PRN (02:39)
[2024-10-01] MEDS ORDERED: PROMETHAZINE 6.25 MG/50.25 ML BAG IV PRN (02:42)
[2024-10-01] MEDS ORDERED: ALBUT/IPRATROP 3MG/0.5MG NEB 3 ML VIAL NEB PRN (03:27)
[2024-10-01] MEDS: methylPREDNISolone 20 MG in SYRINGE 0 ML IV ONE (03:46)
[2024-10-01] MEDS: PIPERACILLIN/TAZOBACTAM 4.5 GM/100 ML BAG IV STA (03:46)
[2024-10-01 05:13] LABS: Appearance Urine Turbid (Clear); Bacteria Urine Automated 3+ (None Seen); Bilirubin Urine 1+ (Negative); Blood Urine 3+ (Negative); Color Urine Orange; Epithelial Cell Urine Auto 0-2 /hpf (0-2); Glucose Urine UA Negative (Negative); Hyaline Casts Urine Present /lpf (None Presnt); Ketones Urine Negative (Negative); Leukocyte Esterase Urine 3+ (Negative); Nitrite Urine Positive (Negative); Protein Urine 2+ (Negative); RBC Urine Automated >20 /hpf (0-2); Specific Gravity Urine 1.024 (1.000-1.030); Urobilinogen Urine Negative (Negative); WBC Urine Automated >50 /hpf (0-5)
[2024-10-01 05:14] LABS: Amphetamines+Metham, Urine Pos (Neg); Barbiturates, Urine Neg (Neg); Benzodiazepine, Urine Pos (Neg); Cocaine, Urine Neg (Neg); Fentanyl, Urine Neg (Neg); MDMA (Ecstacy), Urine Pos (Neg); Marijuana, Urine Pos (Neg); Methadone, Urine Neg (Neg); Opiate, Urine Neg (Neg); Phencyclidine, Urine Neg (Neg)
[2024-10-01] MEDS: ALBUT/IPRATROP 3MG/0.5MG NEB 3 ML VIAL NEB SCH (07:10)
[2024-10-01 07:19] LABS: BUN Creatinine Ratio 18.2 (10-20); Creatinine Clr Calc Pharmacy 181.4 ml/min; Potassium 3.9 mmol/L (3.5-5.1)
[2024-10-01] MEDS ORDERED: ALUMINUM/MAGNESIUM/SIMETH (MAALOX MAX) 30 ML UDC PO PRN (08:52)
[2024-10-01] MEDS ORDERED: UMECLIDINIUM BROMIDE 62.5MCG/BLISTER 7 PUFFS/INHALER INH SCH (09:00)
[2024-10-01] MEDS ORDERED: FLUTICASONE/VILANTEROL 200/25MCG 14 PUFFS/INHALER INH SCH (09:00)
[2024-10-01] MEDS: PIPERACILLIN/TAZOBACTAM 4.5 GM/100 ML BAG IV SCH (09:09)
[2024-10-01] MEDS: DOXYCYCLINE HYCLATE 100 MG CAP PO SCH (09:10)
[2024-10-01] MEDS: FERROUS SULFATE 325 MG TAB PO SCH (09:10)
[2024-10-01] MEDS: bisacodyL 10 MG SUPP PR SCH (09:10)
[2024-10-01] MEDS: GABAPENTIN 100 MG CAP PO SCH (09:11)
[2024-10-01] MEDS: MULTIVITAMIN TAB PO SCH (09:11)
[2024-10-01] MEDS: PANTOprazole 40 MG TAB PO SCH (09:11)
[2024-10-01] MEDS: MIDODRINE HCL 10 MG TAB PO PRN (09:11)
[2024-10-01] MEDS: APIXABAN 5 MG TABLET PO SCH (09:12)
[2024-10-01] MEDS: OXYBUTYNIN CHLORIDE XL 5 MG TABCR PO SCH (09:12)
[2024-10-01] MEDS: BACLOFEN 10 MG TAB PO PRN (09:27)
[2024-10-01 09:39] LABS: Basophils # (auto) 0.03 K/uL (0.00-0.20); Basophils % (auto) 0.3 %; Eosinophils # (auto) 0.07 K/uL (0.00-0.50); Eosinophils % (auto) 0.7 %; Hematocrit (blood only) 33.4 % (42.0-52.0); Hemoglobin 9.8 g/dl (14.0-18.0); Immature Granulocytes # (auto) 0.03 K/uL (0.01-0.20); Immature Granulocytes % (auto) 0.3 %; Lymphocytes # (auto) 0.59 K/uL (1.20-3.40); Lymphocytes % (auto) 5.9 %; Mean Corpuscular Hemoglobin 21.5 pg (25.0-34.0); Mean Corpuscular Hgb Conc 29.3 g/dL (32.0-36.0); Mean Corpuscular Volume 73.4 fL (80.0-100.0); Mean Platelet Volume 9.7 fL (9.4-12.4); Monocytes # (auto) 0.28 K/uL (0.11-0.59); Monocytes % (auto) 2.8 %; Neutrophils # (auto) 8.96 K/uL (1.40-6.50); Platelet Count 236 K/uL (130-400); RDW Coefficient of Variation 18.8 % (11.5-14.5); RDW Standard Deviation 49.3 fL (36.4-46.3); Red Blood Count 4.55 M/uL (4.70-6.10); White Blood Count 9.96 K/ul (4.8-10.8)
[2024-10-01] MEDS: traMADol HCL 50 MG TABLET PO ONE (13:20)
--- NOTE | 2024-10-01 15:29 | Electrocardiogram Report ---
Test Reason : Blood Pressure : */* mmHG Vent. Rate : 93 BPM Atrial Rate : 93 BPM P-R Int : 178 ms QRS Dur : 84 ms QT Int : 354 ms P-R-T Axes : 26 -24 12 degrees QTcB Int : 440 ms Normal sinus rhythm Possible Left atrial enlargement Poor R wave progression, consider anterior OR vs. lead placement vs. LVH Abnormal ECG When compared with ECG of 07-Sep-2024 10:17, Inverted T waves have replaced nonspecific T wave abnormality in Anterior leads Confirmed by Toi Wright ([id number]) on 10/01/2024 3:28:59 PM Referred By: REFERRED SELF Confirmed By: Toi Wright
--- NOTE | 2024-10-01 16:51 | Hospitalist Progress Note ---
Date of Service October 01, 2024 Assessment & Plan (1) Sepsis: Plan: Sepsis Multifactorial HCAP possible aspiration Acute hypoxemic respiratory failure secondary to COPD exacerbation, HCAP Recurrent UTI H/O recurrent UTI secondary to neurogenic bladder with chronic indwelling suprapubic catheter Chronic 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) -- Blood culture pending --Urine culture pending --BioFire negative -- Aspiration precautions --Empirically on Zosyn, doxycycline -- Continue nebs, prednisone Supplemental oxygen as needed Minimize narcotic use as able Colitis/Ileus Abdominal pain likely due to above Incidental finding on CT --CT: Bowel loops are nondilated. Scattered gas fluid levels nondilated large and small bowel suggest mild ileus. There is wall thickening involving the distal sigmoid colon and rectum suggesting mild colitis. No pneumoperitoneum, free fluid, or abscess is identified.There is contrast within the renal collecting system bilaterally. The previously seen calculi are not visible. No hydronephrosis or ureterolithiasis is identified. There is a suprapubic catheter partially decompressing the urinary bladder. --Obtain stool studies if develops diarrhea --On antibiotics as above --Continue lactulose, bowel regimen Marijuana use Chronic pain Counseled to quit THC use Hypokalemia Replete and monitor Other chronic conditions: Chronic diastolic heart failure (EF 65%, TTE 2022): Monitor volume status closely Hypotension on midodrine saddle PE on Eliquis HCV S/P treatment Chronic anemia, Hb Stable chronic sacral decubitus/leg osteomyelitis--Wound Care consulted Chronic pain/substance abuse as per records Anxiety/mood disorder: Continue home med Functional disability: Fall precaution H/O MRSA DVT Px: Eliquis Code Status Full code Admission and Anticipated Discharge Date Admission Date: October 01, 2024 Subjective Patient is seen and examined at bedside States having cough associated with expectoration Also reports dyspnea States having abdominal pain today No other complaints today Review of Systems Review of Systems: All systems reviewed & are unremarkable except as noted in Subjective Physical Exam Physical Exam: Physical Exam: Vitals signs as noted above General Appearance:Moderately built and nourished, chronic ill appearing Head: normocephalic, Atraumatic Eyes: normal inspection, EOMI Neck: supple, Trachea midline Respiratory/Chest: Decreased coarse breath sounds, No accessory muscle use Cardiovascular: S1, S2, No murmur, bradycardia Abdomen/GI:Soft, mild tender, mild distention, Bowel sounds present : Suprapubic Catheter Extremities/Musculoskeletal:normal inspection, Trace pedal edema Neurologic/Psych: Quadriplegia, alert, awake and oriented x 3 Skin: normal color, warm.+sacral wound, facial rash Results & Data Results & Data Vital Signs (Past 12 Hours) Vital Signs Pulse Pulse Resp BP BP Pulse Ox Pulse Ox 10/01/24 15:18 99 H 10/01/24 14:33 102 H 27 H 104/72 94 10/01/24 14:02 82 20 95 10/01/24 13:57 87 22 122/81 95 10/01/24 13:00 90 23 129/95 97 10/01/24 12:30 80 24 129/96 96 10/01/24 12:00 79 22 121/90 96 10/01/24 11:50 96 10/01/24 11:41 10/01/24 11:00 84 24 132/90 98 10/01/24 10:50 74 22 98 10/01/24 10:48 74 23 126/91 98 10/01/24 10:00 78 24 117/90 100 10/01/24 09:30 80 24 128/92 98 10/01/24 09:03 82 24 120/86 98 10/01/24 08:33 81 26 H 125/85 99 10/01/24 08:24 82 24 121/83 99 10/01/24 07:36 77 24 121/86 98 10/01/24 07:14 72 10/01/24 07:10 71 22 99 10/01/24 07:09 70 21 127/97 99 10/01/24 06:14 69 16 135/95 100 O2 Del Method O2 Del Method O2 Flow Rate O2 Flow Rate 10/01/24 15:18 10/01/24 14:33 Nasal Cannula 10/01/24 14:02 Oxymask 3 10/01/24 13:57 Nasal Cannula 10/01/24 13:00 Nasal Cannula 3 10/01/24 12:30 10/01/24 12:00 10/01/24 11:50 Oxymask 3 10/01/24 11:41 Oxymask 10/01/24 11:00 Oxymask 3 10/01/24 10:50 Oxymask 6 10/01/24 10:48 10/01/24 10:00 10/01/24 09:30 10/01/24 09:03 10/01/24 08:33 10/01/24 08:24 10/01/24 07:36 Oxymask 10/01/24 07:14 10/01/24 07:10 Oxymask 9 10/01/24 07:09 Oxymask 10/01/24 06:14 Oxymask 10 Laboratory Results Short CBC 09/30/24 10/01/24 Range/Units 18:06 06:28 WBC 13.53 H 9.96 (4.8-10.8) K/ul Hgb 10.3 L 9.8 L (14.0-18.0) g/dl Hct 34.3 L 33.4 L (42.0-52.0) % Plt Count 328 236 (130-400) K/uL BMP 09/30/24 09/30/24 10/01/24 18:06 19:01 06:28 Sodium 133 L 137 Potassium TNP 3.0 L 3.9 D Chloride 102 108 H Carbon Dioxide 24 22 BUN 11 10 Creatinine 0.62 0.55 L Glucose 116 H 129 H Calcium 9.3 9.0 Liver Function 09/30/24 09/30/24 Range/Units 18:06 19:01 Total Bilirubin 0.6 (0.2-1.0) mg/dl AST TNP 14 ALT 5 L (7-52) U/L Alkaline Phosphatase 123 H (34-104) U/L Albumin 3.6 (3.4-5.0) gm/dl Urine 09/30/24 Range/Units 18:00 Urine Color [place] Urine Appearance Turbid A (Clear) Urine pH 6.0 (4.5-7.5) Ur Specific [place] 1.024 (1.000-1.030) Urine Protein 2+ H (Negative) Urine Glucose (UA) Negative (Negative) (1) Sepsis Sepsis acute organ dysfunction status: unspecified Sepsis type: sepsis due to unspecified organism Qualified Code(s): A41.9 - Sepsis, unspecified organism
[2024-10-01] MEDS: MELATONIN 3 MG TAB PO SCH (21:50)
[2024-10-01] MEDS: NORTRIPTYLINE HCL 25 MG CAP PO SCH (21:50)
[2024-10-01] MEDS: DOCUSATE SODIUM/SENNA 50/8.6MG TAB PO SCH (21:51)
[2024-10-02] MEDS: diphenhydrAMINE 2%/ZINC 0.1% CREAM 28.4GM TUBE EXT SCH (01:41)
[2024-10-02 06:24] LABS: Calcium 8.9 mg/dl (8.6-10.3); Creatinine Clr Calc Pharmacy 232.1 ml/min; Magnesium 1.8 mg/dl (1.7-2.4); Potassium 3.4 mmol/L (3.5-5.1)
[2024-10-02 06:30] LABS: Hematocrit (blood only) 28.3 % (42.0-52.0); Hemoglobin 8.5 g/dl (14.0-18.0); Mean Corpuscular Hemoglobin 22.1 pg (25.0-34.0); Mean Corpuscular Volume 73.5 fL (80.0-100.0); Mean Platelet Volume 10.1 fL (9.4-12.4); Platelet Count 238 K/uL (130-400); RDW Coefficient of Variation 18.4 % (11.5-14.5); RDW Standard Deviation 48.9 fL (36.4-46.3); Red Blood Count 3.85 M/uL (4.70-6.10); White Blood Count 6.06 K/ul (4.8-10.8)
[2024-10-02 07:49] LABS: 7-Aminoclonaz, Confirm DNR ng/mL; Hydroxyethylflurazepam, Conf DNR ng/mL; Hydroxymidazolam Ur, GC/MS DNR ng/mL; Hydroxytriazolam DNR ng/mL; Lorazepam, Ur GC/MS DNR ng/mL; MDEA DNR; MDMA (Ecstasy) Urine, Confirm DNR; Nordiazepam, Confirm DNR ng/mL; Oxazepam Ur, GC/MS DNR ng/mL
[2024-10-02] MEDS: predniSONE 20 MG TAB PO SCH (08:10)
[2024-10-02] MEDS: predniSONE 20 MG TAB ONE (08:12)
[2024-10-02] MEDS: POTASSIUM CHLORIDE / WTR 10 MEQ/100 ML PLCT IV SCH (11:30)
[2024-10-02] MEDS: NSS + 20MEQ KCL 20 MEQ/1,000 ML BAG IV ONE (11:33)
[2024-10-02 12:02] LABS: A calco-baum cmplx NotReported Not Detected (NotDetected); Bact fragilis Not Reported Not Detected (NotDetected); Blood Culture Id Panel See PCR Comment (NotDetected); C auris Not Reported Not Detected (NotDetected); Calbicans Not Reported Not Detected (NotDetected); Candida glabrata Not Reported Not Detected (NotDetected); Candida krusei Not Reported Not Detected (NotDetected); Cneoformans/gatti Not Reported Not Detected (NotDetected); Cparapsilosis Not Reported Not Detected (NotDetected); E cloacae compx Not Reported Not Detected (NotDetected); Efaecalis Not Reported Not Detected (NotDetected); Efaecium Not Reported Not Detected (NotDetected); Enterobacterales Not Reported Not Detected (NotDetected); Escherichia coli Not Reported Not Detected (NotDetected); H influenzae Not Reported Not Detected (NotDetected); K aerogenes Not Reported Not Detected (NotDetected); Koxytoca Not Reported Not Detected (NotDetected); Kpneumoniae grp Not Reported Not Detected (NotDetected); Lmonocyt Not Reported Not Detected (NotDetected); N meningitidis Not Reported Not Detected (NotDetected); P aeruginosa Not Reported Not Detected (NotDetected); Proteus spp Not Reported Not Detected (NotDetected); Salmonella spp Not Reported Not Detected (NotDetected); Staph lugdunensis Not Reported Not Detected (NotDetected); Staphaureus Not Reported Not Detected (NotDetected); Staphepi Not Reported Not Detected (NotDetected); Staphylococcus spp. DETECTED (NotDetected); Stenmaltophilia Not Reported Not Detected (NotDetected); Strep agal(GrpB) Not Reported Not Detected (NotDetected); Strep pneum Not Reported Not Detected (NotDetected); Strep pyog (GrpA) Not Reported Not Detected (NotDetected); Strep spp Not Reported Not Detected (NotDetected)
[2024-10-02 12:30] LABS: Staph spp. Not Reported DETECTED (NotDetected)
[2024-10-02 12:52] LABS: Hydro-Alp Ur, GC/MS DNR
[2024-10-02] MEDS ORDERED: DICLOFENAC SOD 1% GEL 100 GM TUBE EXT PRN (13:37)
--- NOTE | 2024-10-02 15:26 | Hospitalist Progress Note ---
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 Scattered gas fluid levels nondilated large and small bowel suggest mild ileus. There is wall thickening involving the distal sigmoid colon and rectum suggesting mild colitis. No pneumoperitoneum, free fluid, or abscess is identified.There is contrast within the renal collecting system bilaterally. The previously seen calculi are not visible. No hydronephrosis or ureterolithiasis is identified. There is a suprapubic catheter partially decompressing the urinary bladder. --Obtain stool studies if develops diarrhea --On antibiotics as above --Continue lactulose, bowel regimen Follow-up stool studies Marijuana use Chronic pain Counseled to quit THC use Hypokalemia Replete and monitor Other chronic conditions: Chronic diastolic heart failure (EF 65%, TTE 2022): Monitor volume status closely Hypotension on midodrine saddle PE on Eliquis HCV S/P treatment Chronic anemia, Hb Stable chronic sacral decubitus/leg osteomyelitis--Wound Care consulted Chronic pain/substance abuse as per records Anxiety/mood disorder: Continue home med Functional disability: Fall precaution H/O MRSA DVT Px: Eliquis Code Status Full code Admission and Anticipated Discharge Date Admission Date: October 01, 2024 Subjective Patient is seen and examined at bedside Febrile today Reports right shoulder pain Also states having some cough and nausea today Denies any dyspnea, dizziness, chest pain, abdominal pain Review of Systems Review of Systems: All systems reviewed & are unremarkable except as noted in Subjective Physical Exam Physical Exam: Physical Exam: Vitals signs as noted above General Appearance:Moderately built and nourished, chronic ill appearing Head: normocephalic, Atraumatic Eyes: normal inspection, EOMI Neck: supple, Trachea midline Respiratory/Chest: Decreased coarse breath sounds, No accessory muscle use Cardiovascular: S1, S2, No murmur Abdomen/GI:Soft, mild tender, mild distention, Bowel sounds present : Suprapubic Catheter Extremities/Musculoskeletal:normal inspection, Trace pedal edema Neurologic/Psych: Quadriplegia, alert, awake and oriented x 3 Skin: normal color, warm.+sacral wound, facial rash Results & Data Results & Data Vital Signs (Past 12 Hours) Vital Signs Pulse Pulse Resp BP BP Pulse Ox Pulse Ox 10/02/24 11:00 98 10/02/24 10:15 73 20 96 10/02/24 08:51 80 20 95 10/02/24 08:30 10/02/24 08:30 91 H 19 95 10/02/24 08:29 105/72 10/02/24 08:24 71 25 H 96 10/02/24 08:13 87/64 L 10/02/24 08:13 87/64 L 10/02/24 08:13 87/64 L 10/02/24 08:12 92 H 22 93 10/02/24 08:00 93 H 23 95 10/02/24 08:00 91/62 L 10/02/24 08:00 91/62 L 10/02/24 08:00 91/62 L 10/02/24 07:30 93 H 19 95 10/02/24 07:09 78 20 99 10/02/24 07:00 114/78 10/02/24 06:58 76 10/02/24 06:39 78 22 95 10/02/24 06:00 106/63 10/02/24 06:00 84 15 10/02/24 06:00 81 16 106/63 96 10/02/24 05:30 75 22 95 10/02/24 05:09 77 23 95 10/02/24 05:00 115/78 10/02/24 04:54 79 23 92 10/02/24 04:30 76 21 97 10/02/24 04:00 78 21 121/83 98 O2 Del Method O2 Del Method O2 Flow Rate O2 Flow Rate 10/02/24 11:00 Oxymask 3 10/02/24 10:15 Oxymask 3 10/02/24 08:51 Room Air 3 10/02/24 08:30 Oxymask 3 10/02/24 08:30 10/02/24 08:29 10/02/24 08:24 10/02/24 08:13 10/02/24 08:13 10/02/24 08:13 10/02/24 08:12 10/02/24 08:00 10/02/24 08:00 10/02/24 08:00 10/02/24 08:00 10/02/24 07:30 10/02/24 07:09 10/02/24 07:00 10/02/24 06:58 10/02/24 06:39 10/02/24 06:00 10/02/24 06:00 10/02/24 06:00 Oxymask 3 10/02/24 05:30 10/02/24 05:09 10/02/24 05:00 10/02/24 04:54 10/02/24 04:30 10/02/24 04:00 Oxymask 3 Laboratory Results Short CBC 10/02/24 Range/Units 05:24 WBC 6.06 (4.8-10.8) K/ul Hgb 8.5 L (14.0-18.0) g/dl Hct 28.3 L (42.0-52.0) % Plt Count 238 (130-400) K/uL BMP 10/02/24 05:24 Sodium 137 Potassium 3.4 L Chloride 107 Carbon Dioxide 24 BUN 6 Creatinine 0.43 L Glucose 126 H Calcium 8.9 (1) Sepsis Sepsis acute organ dysfunction status: unspecified Sepsis type: sepsis due to unspecified organism Qualified Code(s): A41.9 - Sepsis, unspecified organism
--- NOTE | 2024-10-03 07:42 | Hospitalist Progress Note ---
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 Scattered gas fluid levels nondilated large and small bowel suggest mild ileus. There is wall thickening involving the dist al sigmoid colon and rectum suggesting mild colitis. No pneumoperitoneum, free fluid, or abscess is identified.There is contrast within the renal collecting system bilaterally. The previously seen calculi are not visible. No hydronephrosis or ureterolithiasis is identified. There is a suprapubic catheter partially decompressing the urinary bladder. --Obtain stool studies if develops diarrhea --On antibiotics as above --Continue lactulose, bowel regimen Follow-up stool studies AM KUB ordered - pt refused Says he only has BM when using suppository NPO for now, as he now has abd. pain, likely ileus give supp. and obtain KUB Marijuana use Chronic pain Counseled to quit THC use Hypokalemia Replete and monitor Other chronic conditions: Chronic diastolic heart failure (EF 65%, TTE 2022): Monitor volume status closely Hypotension on midodrine saddle PE on Eliquis HCV S/P treatment Chronic anemia, Hb Stable chronic sacral decubitus/leg osteomyelitis--Wound Care consulted Chronic pain/substance abuse as per records Anxiety/mood disorder: Continue home med Functional disability: Fall precaution H/O MRSA DVT Px: Eliquis Code Status Full code Admission and Anticipated Discharge Date Admission Date: October 01, 2024 Subjective Patient seen in follow up, pt's sister present at the bedside RN at the bedside Pt is on RA, breathing much improved Reports some abd. pain but refused KUB that was ordered by previous provider for ileus Says he needs to use suppository to have a BM Denies any chest pain, dyspnea, dizziness Discussed - will need to be NPO for ileus, will give suppository, and will need KUB. Pt in agreement. Review of Systems Review of Systems: All systems reviewed & are unremarkable except as noted in Subjective Physical Exam Physical Exam: General Appearance:Moderately built and nourished, chronic ill appearing Head: normocephalic, Atraumatic Eyes: normal inspection, EOMI Neck: supple Respiratory/Chest: Decreased coarse breath sounds, No accessory muscle use, on RA Cardiovascular: S1, S2, No murmur Abdomen/GI:Soft, mild tender, mild distention, Bowel sounds present : Suprapubic Catheter Extremities/Musculoskeletal:normal inspection, Trace pedal edema Neurologic/Psych: Quadriplegia, alert, awake and oriented x 3 Skin: normal color, warm.+sacral wound, facial rash Results & Data Results & Data Vital Signs (Past 12 Hours) Vital Signs Temp Pulse Pulse Resp BP Pulse Ox O2 Del Method 10/03/24 02:38 35.9 C L 62 18 134/91 96 Room Air 10/02/24 23:52 99 Oxymask 10/02/24 23:32 36 C L 69 18 117/77 98 Oxymask 10/02/24 21:44 84 10/02/24 19:45 Oxymask O2 Flow Rate 10/03/24 02:38 10/02/24 23:52 3 10/02/24 23:32 5 10/02/24 21:44 10/02/24 19:45 5 Laboratory Results 10/03/24 10/02/24 09/30/24 Range/Units 07:18 12:13 19:14 WBC Pending RBC Pending Hgb Pending Hct Pending MCV Pending MCH Pending MCHC Pending Plt Count Pending Sodium Pending Potassium Pending Chloride Pending Carbon Dioxide Pending Anion Gap Pending BUN Pending Creatinine Pending Est Cr Clr Drug Dosing Pending eGFR Pending BUN/Creatinine Ratio Pending Glucose Pending Calcium Pending Magnesium Pending U Amphetamines Confirm Pending U Methamphetamin Confrm Pending Urine MDEA Pending MDMA Pending Urine MDMA Pending U OH-Alprazolam Confrm Pending 7-Amino Clonazepam Pending ng/mL Ur Nordiazepam Confirm Pending ng/mL U OH-ethylflurazepam Pending ng/mL U Lorazepam Cnf GC/MS Pending ng/mL U Oxazepam Confm GC/MS Pending ng/mL Ur Temazepam Confirm Pending U OH-Triazolam Confirm Pending ng/mL U OH-Midazolam Confirm Pending ng/mL U Marijuana THC Carboxy Pending Drug Screen Comment Pending Staphylococcus sp PCR DETECTED A (NotDetected) Bld Cult ID Panel PCR See PCR Comment (NotDetected) 09/30/24 Range/Units 18:00 WBC RBC Hgb Hct MCV MCH MCHC Plt Count Sodium Potassium Chloride Carbon Dioxide Anion Gap BUN Creatinine Est Cr Clr Drug Dosing eGFR BUN/Creatinine Ratio Glucose Calcium Magnesium U Amphetamines Confirm TNP U Methamphetamin Confrm TNP Urine MDEA DNR MDMA DNR Urine MDMA TNP U OH-Alprazolam Confrm DNR 7-Amino Clonazepam DNR ng/mL Ur Nordiazepam Confirm DNR ng/mL U OH-ethylflurazepam DNR ng/mL U Lorazepam Cnf GC/MS DNR ng/mL U Oxazepam Confm GC/MS DNR ng/mL Ur Temazepam Confirm TNP U OH-Triazolam Confirm DNR ng/mL U OH-Midazolam Confirm DNR ng/mL U Marijuana THC Carboxy TNP Drug Screen Comment SEE NOTE Staphylococcus sp PCR (NotDetected) Bld Cult ID Panel PCR (NotDetected) Medications Administered Current Inpatient Medications Acetaminophen (Acetaminophen 325 Mg Tab) 650 mg PO Q6 PRN PRN Reason: Fever Or Pain Stop: 10/31/24 02:38 Al Hydrox/Mg Hydrox/Simethicone (Aluminum/Magnesium/Simeth (Maalox Max) 30 Ml Udc) 15 ml PO Q6H PRN PRN Reason: Dyspepsia Stop: 10/31/24 08:51 Albuterol (Albut/Ipratrop 3mg/0.5mg Neb 3 Ml Vial) 3 ml NEB QIDR [facility]AL[facility]; Protocol Stop: 10/31/24 06:59 Last Admin: 10/02/24 20:27 Dose: Not Given Albuterol (Albut/Ipratrop 3mg/0.5mg Neb 3 Ml Vial) 3 ml NEB Q2H PRN; Protocol PRN Reason: SOB/WHEEZING Stop: 10/31/24 03:26 Apixaban (Apixaban 5 Mg Tablet) 5 mg PO [facility] Stop: 10/31/24 08:59 Last Admin: 10/02/24 21:49 Dose: 5 mg Baclofen (Baclofen 10 Mg Tab) 10 mg PO TID PRN PRN Reason: muscle spasms Stop: 10/31/24 02:38 Last Admin: 10/02/24 08:10 Dose: 10 mg Bisacodyl (Bisacodyl 10 Mg Supp) 10 mg MS BID [facility] Stop: 10/31/24 08:59 Last Admin: 10/02/24 21:49 Dose: Not Given Diclofenac Sodium (Diclofenac Sod 1% Gel 100 Gm Tube) 2 gm EXT BID PRN; Protocol PRN Reason: Pain Stop: 11/01/24 20:59 Docusate Sodium (Docusate Sodium 100 Mg Cap) 100 mg PO BID PRN PRN Reason: Constipation Stop: 10/31/24 02:38 Doxycycline Hyclate (Doxycycline Hyclate 100 Mg Cap) 100 mg PO BID [facility] Stop: 10/06/24 08:59 Last Admin: 10/02/24 21:49 Dose: 100 mg Ferrous Sulfate (Ferrous Sulfate 325 Mg Tab) 325 mg PO QDB [facility] Stop: 10/31/24 07:29 Last Admin: 10/02/24 08:11 Dose: 325 mg Gabapentin (Gabapentin 100 Mg Cap) 200 mg PO [facility] Stop: 10/31/24 08:59 Last Admin: 10/02/24 21:49 Dose: 200 mg Hydroxyzine HCl (Hydroxyzine Hcl 25 Mg Tab) 25 mg PO DAILY PRN PRN Reason: Anxiety Stop: 10/31/24 02:38 Piperacillin Sod/Tazobactam Sod (Zosyn) 4.5 gm in 100 mls @ 25 mls/hr IV Q8H [facility]AL[facility]; Protocol Stop: 10/06/24 07:59 Last Infusion: 10/03/24 03:48 Dose: Infused Promethazine HCl (Phenergan) 6.25 mg in 50.25 mls @ 201 mls/hr IV Q6H PRN PRN Reason: Nausea And Vomiting Stop: 10/31/24 02:41 Lactulose (Lactulose Syrup 20 Gm/30 Ml Udc) 20 gm PO TID PRN PRN Reason: Constipation Stop: 10/31/24 03:00 Melatonin (Melatonin 3 Mg Tab) 3 mg PO HS [facility] Stop: 10/31/24 20:59 Last Admin: 10/02/24 21:48 Dose: 3 mg Midodrine (Midodrine Hcl 10 Mg Tab) 10 mg PO TID PRN PRN Reason: Hypotension Stop: 10/31/24 02:38 Last Admin: 10/02/24 08:15 Dose: 10 mg Multivitamins (Multivitamin Tab) 1 tab PO DAILY [facility] Stop: 10/31/24 08:59 Last Admin: 10/02/24 08:11 Dose: 1 tab Nortriptyline HCl (Nortriptyline Hcl 25 Mg Cap) 25 mg PO HS [facility] Stop: 10/31/24 20:59 Last Admin: 10/02/24 21:49 Dose: 25 mg Oxybutynin Chloride (Oxybutynin Chloride Xl 5 Mg Tabcr) 10 mg PO QAM [facility] Stop: 10/31/24 08:59 Last Admin: 10/02/24 08:10 Dose: 10 mg Pantoprazole Sodium (Pantoprazole 40 Mg Tab) 40 mg PO DAILY [facility] Stop: 10/31/24 08:59 Last Admin: 10/02/24 08:11 Dose: 40 mg Prednisone (Prednisone 20 Mg Tab) 40 mg PO DAILY [facility] Stop: 10/06/24 08:59 Last Admin: 10/02/24 08:10 Dose: 40 mg Senna/Docusate Sodium (Docusate Sodium/Senna 50/8.6mg Tab) 2 tab PO HS [facility] Stop: 10/31/24 20:59 Last Admin: 10/02/24 21:48 Dose: 2 tab Zinc Acetate/Diphenhydramine (Diphenhydramine 2%/Zinc 0.1% Cream 28.4gm Tube) 1 appln EXT BID [facility] Stop: 10/31/24 20:59 Last Admin: 10/02/24 21:50 Dose: 1 appln (1) Sepsis Sepsis acute organ dysfunction status: unspecified Sepsis type: sepsis due to unspecified organism Qualified Code(s): A41.9 - Sepsis, unspecified organism
[2024-10-03 07:52] LABS: Calcium 9.1 mg/dl (8.6-10.3); Magnesium 1.8 mg/dl (1.7-2.4); Potassium 3.6 mmol/L (3.5-5.1)
[2024-10-03 07:54] LABS: Hematocrit (blood only) 30.6 % (42.0-52.0); Mean Corpuscular Hemoglobin 21.7 pg (25.0-34.0); Mean Corpuscular Hgb Conc 29.4 g/dL (32.0-36.0); Mean Corpuscular Volume 73.7 fL (80.0-100.0); Mean Platelet Volume 9.9 fL (9.4-12.4); Platelet Count 242 K/uL (130-400); RDW Coefficient of Variation 18.5 % (11.5-14.5); RDW Standard Deviation 49.6 fL (36.4-46.3); Red Blood Count 4.15 M/uL (4.70-6.10); White Blood Count 8.34 K/ul (4.8-10.8)
[2024-10-03 07:57] LABS: BUN Creatinine Ratio 15.9 (10-20); Creatinine Clr Calc Pharmacy 224.6 ml/min
[2024-10-03] MEDS: POTASSIUM CHLORIDE CRTAB 20 MEQ TABCR PO STA (15:38)
[2024-10-03] MEDS: MAGNESIUM OXIDE 400 MG TAB PO SCH (18:14)
[2024-10-03] MEDS: MAGNESIUM SULFATE / D5W 1 GM/100 ML BAG IV ONE (18:41)
[2024-10-03] MEDS: ACETAMINOPHEN 325 MG TAB PO PRN (20:56)
[2024-10-03] MEDS: LACTULOSE SYRUP 20 GM/30 ML UDC PO PRN (20:57)
[2024-10-03] MEDS: KETOROLAC TROMETHAMINE 15 MG/ML VIAL IV ONE (21:32)
--- NOTE | 2024-10-03 23:23 | XRay Report ---
Exam(s): XR KUB EXAM: XR Abdomen, 2 Views CLINICAL HISTORY: Reason for exam: ileus. TECHNIQUE: Frontal supine views of the abdomen/pelvis. COMPARISON: No relevant prior studies available. FINDINGS: Gastrointestinal tract: Unremarkable. No dilation. Bones/joints: Unremarkable. No acute fracture. IMPRESSION: Increased gas within the stomach, colon and small bowel without the appearance of small bowel obstruction. The gastric tube is looped in the distal esophagus with the distal portion extending back into the upper esophagus. Electronically signed by: Alexander Porter MD 10/03/24 23:21 PM
--- NOTE | 2024-10-04 07:22 | Hospitalist Progress Note ---
Date of Service October 04, 2024 Assessment & Plan (1) Sepsis: Plan: Sepsis Multifactorial HCAP possible aspiration Acute hypoxemic respiratory failure secondary to COPD exacerbation, HCAP Recurrent UTI H/O recurrent UTI secondary to neurogenic bladder with chronic indwelling suprapubic catheter Chronic 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) -- Blood culture: 08/11 growing gram-positive cocci - Staph pettenkoferi --Urine culture: Noncontributory --BioFire negative -- Aspiration precautions -- Continue Zosyn, doxycycline for now -- Continue nebs, prednisone Requested Sanchez change Supplemental oxygen as needed Minimize narcotic use as able repeat blood cultures - obtained Continue IV fluids Colitis/Ileus Abdominal pain likely due to above Incidental finding on CT --CT: Bowel loops are nondilated. Scattered gas fluid levels nondilated large and small bowel suggest mild ileus. There is wall thickening involving the dist al sigmoid colon and rectum suggesting mild colitis. No pneumoperitoneum, free fluid, or abscess is identified.There is contrast within the renal collecting system bilaterally. The previously seen calculi are not visible. No hydronephrosis or ureterolithiasis is identified. There is a suprapubic catheter partially decompressing the urinary bladder. --Obtain stool studies if develops diarrhea --On antibiotics as above --Continue lactulose, bowel regimen Follow-up stool studies AM KUB 10/03 - ordered - pt initially refused Says he only has BM when using suppository NPO for now, as he now has abd. pain, likely ileus give supp. and obtain KUB Had KUB done yesterday 10/03 - discussed results w/ radiologist (10/04) and it seems that KUB is not for this pt.. explained to the pt and will repeat Marijuana use Chronic pain Counseled to quit THC use Hypokalemia Replete and monitor Other chronic conditions: Chronic diastolic heart failure (EF 65%, TTE 2022): Monitor volume status closely Hypotension on midodrine saddle PE on Eliquis HCV S/P treatment Chronic anemia, Hb Stable chronic sacral decubitus/leg osteomyelitis--Wound Care consulted Chronic pain/substance abuse as per records Anxiety/mood disorder: Continue home med Functional disability: Fall precaution H/O MRSA DVT Px: Eliquis Code Status Full code Admission and Anticipated Discharge Date Admission Date: October 01, 2024 Subjective Patient seen in follow up, pt's sister present at the bedside yesterday. This AM alone. RN at the bedside Did not have a BM yesterday Today abd. pain resolved but pt is NPO Had KUB done yesterday - discussed results w/ radiologist and it seems that KUB is not for this pt.. explained to the pt and will repeat Pt is on RA, breathing much improved Yesterday -10/03 - Reports some abd. pain but refused KUB that was ordered by previous provider for ileus Says he needs to use suppository to have a BM Denies any chest pain, dyspnea, dizziness Discussed - will need to be NPO for ileus, will give suppository, and will need KUB. Pt in agreement. Review of Systems Review of Systems: All systems reviewed & are unremarkable except as noted in Subjective Physical Exam Physical Exam: General Appearance:Moderately built and nourished, chronic ill appearing Head: normocephalic, Atraumatic Eyes: normal inspection, EOMI Neck: supple Respiratory/Chest: Decreased coarse breath sounds, No accessory muscle use, on RA Cardiovascular: S1, S2, No murmur Abdomen/GI:Soft, nontender, mild distention, Bowel sounds present : Suprapubic Catheter Extremities/Musculoskeletal:normal inspection, Trace pedal edema Neurologic/Psych: Quadriplegia, alert, awake and oriented x 3 Skin: normal color, warm.+sacral wound, facial rash Results & Data Results & Data Vital Signs (Past 12 Hours) Vital Signs Temp Pulse Pulse Resp BP Pulse Ox O2 Del Method 10/04/24 06:59 59 L 16 96 Room Air 10/04/24 02:25 36.4 C L 66 18 120/82 94 Room Air 10/03/24 22:36 36.5 C 80 16 101/66 96 Room Air 10/03/24 21:53 88 10/03/24 21:00 Room Air 10/03/24 20:11 78 18 91 Room Air Laboratory Results blood work ordered but not obtained yet Medications Administered Current Inpatient Medications Acetaminophen (Acetaminophen 325 Mg Tab) 650 mg PO Q6 PRN PRN Reason: Fever Or Pain Stop: 10/31/24 02:38 Last Admin: 10/03/24 20:56 Dose: 650 mg Al Hydrox/Mg Hydrox/Simethicone (Aluminum/Magnesium/Simeth (Maalox Max) 30 Ml Udc) 15 ml PO Q6H PRN PRN Reason: Dyspepsia Stop: 10/31/24 08:51 Albuterol (Albut/Ipratrop 3mg/0.5mg Neb 3 Ml Vial) 3 ml NEB QIDR [facility]ALES; Protocol Stop: 10/31/24 06:59 Last Admin: 10/04/24 06:59 Dose: 3 ml Albuterol (Albut/Ipratrop 3mg/0.5mg Neb 3 Ml Vial) 3 ml NEB Q2H PRN; Protocol PRN Reason: SOB/WHEEZING Stop: 10/31/24 03:26 Apixaban (Apixaban 5 Mg Tablet) 5 mg PO [facility] Stop: 10/31/24 08:59 Last Admin: 10/03/24 20:56 Dose: 5 mg Baclofen (Baclofen 10 Mg Tab) 10 mg PO TID PRN PRN Reason: muscle spasms Stop: 10/31/24 02:38 Last Admin: 10/04/24 00:10 Dose: 10 mg Bisacodyl (Bisacodyl 10 Mg Supp) 10 mg AL BID [facility] Stop: 10/31/24 08:59 Last Admin: 10/03/24 20:50 Dose: Not Given Diclofenac Sodium (Diclofenac Sod 1% Gel 100 Gm Tube) 2 gm EXT BID PRN; Protocol PRN Reason: Pain Stop: 11/01/24 20:59 Docusate Sodium (Docusate Sodium 100 Mg Cap) 100 mg PO BID PRN PRN Reason: Constipation Stop: 10/31/24 02:38 Doxycycline Hyclate (Doxycycline Hyclate 100 Mg Cap) 100 mg PO BID [facility] Stop: 10/06/24 08:59 Last Admin: 10/03/24 20:56 Dose: 100 mg Ferrous Sulfate (Ferrous Sulfate 325 Mg Tab) 325 mg PO QDB [facility] Stop: 10/31/24 07:29 Last Admin: 10/03/24 08:55 Dose: 325 mg Gabapentin (Gabapentin 100 Mg Cap) 200 mg PO [facility] Stop: 10/31/24 08:59 Last Admin: 10/03/24 20:56 Dose: 200 mg Hydroxyzine HCl (Hydroxyzine Hcl 25 Mg Tab) 25 mg PO DAILY PRN PRN Reason: Anxiety Stop: 10/31/24 02:38 Piperacillin Sod/Tazobactam Sod (Zosyn) 4.5 gm in 100 mls @ 25 mls/hr IV Q8H [facility]; Protocol Stop: 10/06/24 07:59 Last Infusion: 10/04/24 04:10 Dose: Infused Promethazine HCl (Phenergan) 6.25 mg in 50.25 mls @ 201 mls/hr IV Q6H PRN PRN Reason: Nausea And Vomiting Stop: 10/31/24 02:41 Lactulose (Lactulose Syrup 20 Gm/30 Ml Udc) 20 gm PO TID PRN PRN Reason: Constipation Stop: 10/31/24 03:00 Last Admin: 10/03/24 20:57 Dose: 20 gm Magnesium Oxide (Magnesium Oxide 400 Mg Tab) 400 mg PO QAM [facility] Stop: 11/02/24 17:44 Last Admin: 10/03/24 18:14 Dose: 400 mg Melatonin (Melatonin 3 Mg Tab) 3 mg PO [facility] Stop: 10/31/24 20:59 Last Admin: 10/03/24 20:57 Dose: 3 mg Midodrine (Midodrine Hcl 10 Mg Tab) 10 mg PO TID PRN PRN Reason: Hypotension Stop: 10/31/24 02:38 Last Admin: 10/02/24 08:15 Dose: 10 mg Multivitamins (Multivitamin Tab) 1 tab PO DAILY [facility] Stop: 10/31/24 08:59 Last Admin: 10/03/24 08:57 Dose: 1 tab Nortriptyline HCl (Nortriptyline Hcl 25 Mg Cap) 25 mg PO [facility] Stop: 10/31/24 20:59 Last Admin: 10/03/24 20:56 Dose: 25 mg Oxybutynin Chloride (Oxybutynin Chloride Xl 5 Mg Tabcr) [facility] Stop: 10/31/24 08:59 Last Admin: 10/03/24 08:57 Dose: 10 mg Pantoprazole Sodium (Pantoprazole 40 Mg Tab) 40 mg PO DAILY [facility] Stop: 10/31/24 08:59 Last Admin: 10/03/24 10:20 Dose: 40 mg Prednisone (Prednisone 20 Mg Tab) 40 mg PO DAILY [facility] Stop: 10/06/24 08:59 Last Admin: 10/03/24 10:20 Dose: 40 mg Senna/Docusate Sodium (Docusate Sodium/Senna 50/8.6mg Tab) 2 tab PO HS [facility] Stop: 10/31/24 20:59 Last Admin: 10/03/24 20:55 Dose: 2 tab Zinc Acetate/Diphenhydramine (Diphenhydramine 2%/Zinc 0.1% Cream 28.4gm Tube) 1 appln EXT BID [facility] Stop: 10/31/24 20:59 Last Admin: 10/03/24 20:57 Dose: Not Given (1) Sepsis Sepsis acute organ dysfunction status: unspecified Sepsis type: sepsis due to unspecified organism Qualified Code(s): A41.9 - Sepsis, unspecified organism
--- NOTE | 2024-10-04 10:21 | XRay Report ---
KUB HISTORY: abdominal pain COMPARISON STUDY: 10/03/2024 FINDINGS: There is moderate retained stool. No bowel obstruction seen. No gross free air. Prior gastr ic distention has resolved. IMPRESSION: No acute findings. ACT 112: Negative or not required by law. The above report was generated using voice recognition software. It may contain grammatical, syntax o r spelling errors. Electronically signed by: Kareem Maurer M.D. 10/04/2024 10:19 AM
--- NOTE | 2024-10-04 11:48 | Urology Consultation ---
<Statement entered by Jaycob Huertas MD - 10/04/24 15:12> 48-year-old male with indwelling suprapubic catheter. Catheter seems to be draining well. Some leaking around the catheter is to be expected. There may be a component of bladder spasms which could be treated with tamsulosin, anticholinergics. He should follow-up with his primary urologist as an outpatient for ongoing catheter management. Date of Consultation October 04, 2024 Assessment & Plan (1) Suprapubic catheter: Plan Urology consulted for suprapubic catheter leaking Patient afebrile, hemodynamically stable Labs today reviewedcreatinine 0.44, WBCs 8.34, hemoglobin 9.0 Urine culture shows 3 types of organisms all high counts Blood cultures 1 out of 4 with gram-positive cocci clusters, 2 out of 4 Staphylococcus pettenkoferi Recommend continue IV antibiotics There was no active drainage from SP site during exam Last suprapubic catheter exchange date is unknown, patient said "recently done" Suprapubic catheter is patent and draining, no urgent need to exchange catheter Monitor SP drainage, may hand irrigate if needed and/or exchange if not draining May use oxybutynin for bladder spasms Ultimately, he will need follow-up with his established urologist for ongoing management and routine exchanges Continue supportive care and medical management per hospital medicine service will sign off, please contact our service with any additional questions or concerns History of Present Illness Attending Physician: Axel Mix MD History of Present Illness 48-year-old male with past medical history of tobacco and substance abuse, diastolic heart failure, COPD, history of PE on Eliquis, chronic sacral decubitus ulcer, 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 He is currently admitted for sepsis, possible HCAP aspiration, acute hypoxic respiratory failure secondary to COPD exacerbation and recurrent UTI. Labs reviewed today: Creatinine 0.44 [address] of the abdomen pelvis on 09/30/2024: 4. There is contrast within the renal collecting system bilaterally. The previously seen calculi are not visible. No hydronephrosis or ureterolithiasis is identified. 5. There is a suprapubic catheter partially decompressing the urinary bladder. Urology is consulted for suprapubic catheter leaking. Patient seen and examined at bedside. He is resting comfortably in bed. He is denying abdominal pain or bladder spasms. He is denying any leakage from the suprapubic catheter. He is denying fevers, chills, nausea, vomiting. Suprapubic catheter is draining clear yellow, no drainage noted around insertion site. Allergies Allergy/AdvReac Type Severity Reaction Status Date / Time Opioids - Morphine Analogues AdvReac severe Verified 05/17/24 15:46 bradycardia Home Medications Medication Instructions Recorded Confirmed Type albuterol sulfate 2.5 mg/3 mL 2.5 mg inhalation Q4H PRN 08/26/24 09/30/24 History (0.083 %) solution for nebulization Shortness Of Breath Or Wheezing apixaban 5 mg tablet (Eliquis) 5 mg PO AMHS 08/26/24 09/30/24 History ascorbic acid (vitamin C) 500 mg 500 mg PO DAILY 08/26/24 09/30/24 History tablet (Vitamin C) baclofen 10 mg tablet 20 mg PO TID PRN muscle spasms 08/26/24 09/30/24 History bisacodyl 10 mg rectal suppository 10 mg SC BID 08/26/24 09/30/24 History budesonide-formoterol HFA 160 2 puff inhalation BID 08/26/24 09/30/24 History mcg-4.5 mcg/actuation aerosol inhaler docusate sodium 100 mg capsule 100 mg PO BID PRN Constipation 08/26/24 09/30/24 History ferrous sulfate 325 mg (65 mg 325 mg PO QDB 08/26/24 09/30/24 History iron) tablet,delayed release hydroxyzine HCl 25 mg tablet 25 mg PO DAILY PRN Anxiety 08/26/24 09/30/24 History lactulose 10 gram/15 mL oral 20 g PO TID PRN Constipation 08/26/24 09/30/24 History solution lidocaine 5 % topical patch 1 patch topical DAILY PRN Pain 08/26/24 09/30/24 History midodrine 10 mg tablet 10 mg PO TID PRN Hypotension 08/26/24 09/30/24 History nortriptyline 25 mg capsule 25 mg PO HS 08/26/24 09/30/24 History oxybutynin chloride 10 mg 10 mg PO QAM 08/26/24 09/30/24 History tablet,extended release 24 hr pantoprazole 40 mg tablet,delayed 40 mg DAILY 08/26/24 09/30/24 History release sennosides 8.6 mg-docusate sodium 2 tab PO HS 08/26/24 09/30/24 History 50 mg tablet (Senexon-S) tiotropium bromide 2.5 2 puff inhalation QAM 08/26/24 09/30/24 History mcg/actuation mist for inhalation (Spiriva Respimat) acetaminophen 325 mg tablet 650 mg PO Q6 PRN Fever Or Pain 09/30/24 09/30/24 H istory gabapentin 100 mg capsule 200 mg PO AMHS 09/30/24 09/30/24 History melatonin 3 mg capsule 3 mg PO HS 09/30/24 09/30/24 History multivitamin 1 tab PO DAILY 09/30/24 09/30/24 History ondansetron 4 mg disintegrating 4 mg translingual Q6 PRN Nausea 09/30/24 09/30/24 History tablet Patient History Medical History Acute UTI Abdominal pain Aspiration pneumonitis Pneumonia Paraplegia Surgical History No pertinent past surgical history Social History Smoking Status: Former smoker Tobacco Type: Cigarettes Cigarettes Per Day: 1/2ppd; Second Hand Exposure: Yes; Do You Dip or Chew Tobacco: Yes; Hx Alcohol Use: Yes Alcohol type: hard liquor Hx Substance Use: Yes Non-Prescribed Medications: Crack / Cocaine and Marijuana Last Used Substance: Unknown Preferred Language: Dutch Communication Ability: Effective Communication Ability Comment: difficulty writing [employer] Required: No Beliefs That Will Affect Care: None Current Living Situation: Family Current Living Situation Comment: lives home with brother. has 24 hr caregivers Other Information That Helps Us Care for You: No Feels Safe at Home: Yes Safety Concerns: Feels Safe At This Time Assistive Devices: Hospital Bed, Mechanical Lift, Nebulizer and Wheelchair Assistive Devices Comment: foam board to assist with holding phone/drink Review of Systems Constitutional: as per Subjective / HPI Genitourinary: + as per Subjective / HPI Physical Exam Constitutional: + ill appearing; no acute distress Respiratory: normal respiratory effort and able to speak in complete sentences Musculoskeletal: Extremities: + limited ROM of extremities Psychiatric: Orientation: alert and oriented x 3 Results & Data Vital Signs (Past 12 Hours) Vital Signs Temp Pulse Pulse Resp BP Pulse Ox Pulse Ox 10/04/24 11:36 36.3 C L 54 L 18 133/92 95 10/04/24 11:00 97 10/04/24 10:59 57 L 16 95 10/04/24 10:48 56 L 10/04/24 10:48 10/04/24 07:50 36.3 C L 91 H 16 116/79 96 10/04/24 06:59 59 L 16 96 10/04/24 02: 36.4 C L 66 18 120/82 94 O2 Del Method O2 Del Method 10/04/24 11:36 Room Air 10/04/24 11:00 Room Air 10/04/24 10:59 Room Air 10/04/24 10:48 10/04/24 10:48 Room Air 10/04/24 07:50 Room Air 10/04/24 06:59 Room Air 10/04/24 02:25 Room Air PG Care Time/CCT Total # of Minutes Spent Total Time Spent with Patient: Total time spent is greater than 50% in coordination of care (as documented) at patient's floor/unit and/or counseling patient: Coding Level of Care Code 64943 IN/OBS CONSULT LVL 3,45M Diagnoses Suprapubic catheter Z93.59
[2024-10-04 22:59] LABS: Hematocrit (blood only) 29.4 % (42.0-52.0); Hemoglobin 8.7 g/dl (14.0-18.0); Mean Corpuscular Hemoglobin 21.9 pg (25.0-34.0); Mean Corpuscular Hgb Conc 29.6 g/dL (32.0-36.0); Mean Corpuscular Volume 73.9 fL (80.0-100.0); Mean Platelet Volume 10.1 fL (9.4-12.4); Platelet Count 301 K/uL (130-400); RDW Coefficient of Variation 18.7 % (11.5-14.5); Red Blood Count 3.98 M/uL (4.70-6.10); White Blood Count 12.56 K/ul (4.8-10.8)
[2024-10-04 23:23] LABS: BUN Creatinine Ratio 20.8 (10-20); Calcium 8.7 mg/dl (8.6-10.3); Creatinine Clr Calc Pharmacy 186.1 ml/min; Magnesium 1.9 mg/dl (1.7-2.4); Phosphorus 1.9 mg/dl (2.5-4.9); Potassium 3.9 mmol/L (3.5-5.1)
[2024-10-05] MEDS ORDERED: POTASSIUM PHOS 3 MMOL/1 ML INFUSION IV STA (08:04)
[2024-10-05] MEDS: POTASSIUM PHOSPHATE 6 MMOL in SODIUM CHLORIDE 0.9% 100 ML IV ONE (08:55)
--- NOTE | 2024-10-05 11:13 | Infectious Disease Consult ---
Date of Service October 05, 2024 Telehealth Information I performed this visit using a real-time telehealth connection between my location and the patients location ([facility]). After connecting through interactive tele-video, patient was identified by name and date of and/or wristband check.Patient (or authorized healthcare bank representative) was informed that this was a telemedicine visit and it was being conducted confidentially over secure lines. My office door was closed and no one else was present in the room with me.Patient (or authorized healthcare bank representative) provided consent to proceed with the visit, expressed an understanding of privacy and security of the telemedicine visit, and gave permission to have a hospital bank representative in the room in order to assist with the visit and to conduct portions of the visit, as needed. I informed the patient (or authorized healthcare bank representative) that I reviewed their record and presented the opportunity for them to ask any questions regarding the visit today. The patient agreed to participate. Assessment & Plan (1) Complicated UTI (urinary tract infection): (2) Bacteremia: (3) Aspiration pneumonia: (4) Suprapubic catheter dysfunction: Plan -Please start Vancomycin dosed per pharmacy -Discontinue Zosyn -Start Ceftriaxone 2g IV qd for continued Tx of Pneumonia through 10/08 then discontinue -Please repeat Blood culture after 24hrs of Vancomycin treatment -Advise wound care to assess the sacral ulcer as this may be the source of infection -ID will continue to follow Case discussed with ID Attending Dr. Shanelle Almodovar MD Infectious Disease PGY-5 [facility] I have seen and directly participated in the consultation with this patient and I agree with Dr Almodovar's assessment and treatment plan History of Present Illness History of Present Illness 48-year-old male with a past medical history of heart failure with preserved ejection fraction, PE on Eliquis, prior HCV treated, sacral osteomyelitis, mood disorder, cervical spine injury paraplegia, chronic suprapubic catheter. Patient reporting abdominal pain and in the days leading up to admission, associated worsening cough symptoms and shortness of breath. Subsequently brought to the ED for further evaluation. On presentation SpO2 documented in the low 80s, hemodynamically stable and afebrile, WBC 13.53. CT chest showing consolidations in right lower middle and upper lobes and left lower lobe, debris identified in the right mainstem and right middle lobe bronchi. urine culture from 09/30 with 3 organisms is high counts, suggest repetition. 2/23 blood culture showing 1/4 bottles positive for staph Pettenkoferi, with a repeat blood culture on 10/03 showing 1/4 bottles Staph aureus in 1/4 bottles Staph Pettenkoferi. Urology consulted for leaking suprapubic catheter who recommended no surgical intervention. Patient currently on Zosyn. Infectious Disease consulted for further guidance. patient states that his main complaint is abdominal pain, burning sensation after eating food. He states that this is somewhat relieved by defecation. This has been present for approximately 3 weeks. Denies any fever/chills at home but does elicit to 1 week of increased shortness of breaths with significant sputum production. Denies any episode of overt aspiration. currently denies any ben catheter irritation or bladder discomfort. Does state that the suprapubic catheter is still leaking around the entrance point. Allergies Allergy/AdvReac Type Severity Reaction Status Date / Time Opioids - Morphine Analogues AdvReac severe Verified 05/17/24 15:46 bradycardia Home Medications Medication Instructions Recorded Confirmed Type albuterol sulfate 2.5 mg/3 mL 2.5 mg inhalation Q4H PRN 08/26/24 09/30/24 History (0.083 %) solution for nebulization Shortness Of Breath Or Wheezing apixaban 5 mg tablet (Eliquis) 5 mg PO AMHS 08/26/24 09/30/24 History ascorbic acid (vitamin C) 500 mg 500 mg PO DAILY 08/26/24 09/30/24 History tablet (Vitamin C) baclofen 10 mg tablet 20 mg PO TID PRN muscle spasms 08/26/24 09/30/24 History bisacodyl 10 mg rectal suppository 10 mg VA BID 08/26/24 09/30/24 History budesonide-formoterol HFA 160 2 puff inhalation BID 08/26/24 09/30/24 History mcg-4.5 mcg/actuation aerosol inhaler docusate sodium 100 mg capsule 100 mg PO BID PRN Constipation 08/26/24 09/30/24 History ferrous sulfate 325 mg (65 mg 325 mg PO QDB 08/26/24 09/30/24 History iron) tablet,delayed release hydroxyzine HCl 25 mg tablet 25 mg PO DAILY PRN Anxiety 08/26/24 09/30/24 History lactulose 10 gram/15 mL oral 20 g PO TID PRN Constipation 08/26/24 09/30/24 History solution lidocaine 5 % topical patch 1 patch topical DAILY PRN Pain 08/26/24 09/30/24 History midodrine 10 mg tablet 10 mg PO TID PRN Hypotension 08/26/24 09/30/24 History nortriptyline 25 mg capsule 25 mg PO HS 08/26/24 09/30/24 History oxybutynin chloride 10 mg 10 mg PO QAM 08/26/24 09/30/24 History tablet,extended release 24 hr pantoprazole 40 mg tablet,delayed 40 mg DAILY 08/26/24 09/30/24 History release sennosides 8.6 mg-docusate sodium 2 tab PO HS 08/26/24 09/30/24 History 50 mg tablet (Senexon-S) tiotropium bromide 2.5 2 puff inhalation QAM 08/26/24 09/30/24 History mcg/actuation mist for inhalation (Spiriva Respimat) acetaminophen 325 mg tablet 650 mg PO Q6 PRN Fever Or Pain 09/30/24 09/30/24 History gabapentin 100 mg capsule 200 mg PO AMHS 09/30/24 09/30/24 History melatonin 3 mg capsule 3 mg PO HS 09/30/24 09/30/24 History multivitamin 1 tab PO DAILY 09/30/24 09/30/24 History ondansetron 4 mg disintegrating 4 mg translingual Q6 PRN Nausea 09/30/24 09/30/24 History tablet Patient History Medical History Acute UTI Abdominal pain Aspiration pneumonitis Pneumonia Paraplegia Surgical History No pertinent past surgical history Social History Smoking Status: Former smoker Tobacco Type: Cigarettes Cigarettes Per Day: 1/2ppd; Second Hand Exposure: Yes; Do You Dip or Chew Tobacco: Yes; Hx Alcohol Use: Yes Alcohol type: hard liquor Hx Substance Use: Yes Non-Prescribed Medications: Crack / Cocaine and Marijuana Last Used Substance: Unknown Preferred Language: Barbadian Communication Ability: Effective Communication Ability Comment: difficulty writing 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 has 24 hr caregivers Other Information That Helps Us Care for You: No Feels Safe at Home: Yes Safety Concerns: Feels Safe At This Time Assistive Devices: Hospital Bed, Mechanical Lift, Nebulizer and Wheelchair Assistive Devices Comment: foam board to assist with holding phone/drink Review of Systems Constitutional: No fever/chills Eyes: No pain, drainage, vision change HENT: No symptoms reported Cardiovascular: No chest pain, palpitations, lower extremity swelling Respiratory: Mild shortness of breath, increased sputum production, no wheezing Gastrointestinal: abdominal burning worse after eating, decreased after defecation- present for 3 weeks MSK:No discomfort at sacral decubitus ulcer Skin: no irritation around suprapubic catheter, does have leakage around entrance point Neurological: No dizziness, weakness, confusion, sensory changes Results & Data Vital Signs (Past 12 Hours) Vital Signs Temp Pulse Resp BP BP Pulse Ox O2 Del Method 10/05/24 08:53 36.5 C 72 16 109/71 92 Room Air 10/05/24 08:00 Room Air 10/05/24 07:16 57 L 20 95 Room Air 10/05/24 03:37 36.6 C 72 16 127/79 93 Room Air 10/04/24 23:39 36.6 C 83 18 101/66 93 Room Air Laboratory Results 10/03 Bclx 08/11 Staph A 08/11 Staph Pettenkoferi 09/30 Bclx 08/11 Staph Pettenkoferi 09/30 Uclx: 3 orgs high counts ?repeat Diagnostic Findings Laboratory Results WBC 12.56 K/ul (4.8-10.8) H 10/04/24 22:31 RBC 3.98 M/uL (4.70-6.10) L 10/04/24 22:31 Hgb 8.7 g/dl (14.0-18.0) L 10/04/24 22:31 Hct 29.4 % (42.0-52.0) L 10/04/24 22:31 MCV 73.9 fL (80.0-100.0) L 10/04/24 22:31 MCH 21.9 pg (25.0-34.0) L 10/04/24 22:31 MCHC 29.6 g/dL (32.0-36.0) L 10/04/24 22: RDW Std Deviation 50.0 fL (36.4-46.3) H 10/04/24 22: RDW Coeff of Adelia 18.7 % (11.5-14.5) H 10/04/24 22:31 Plt Count 301 K/uL (130-400) 10/04/24 22: MPV 10.1 fL (9.4-12.4) 10/04/24 22: Immature Gran % (Auto) 0.3 % 10/01/24 06:28 Neut % (Auto) 90.0 % 10/01/24 06: Lymph % (Auto) 5.9 % 10/01/24 06: Ransom % (Auto) 2.8 % 10/01/24 06: Eos % (Auto) 0.7 % 10/01/24 06: Baso % (Auto) 0.3 % 10/01/24 06:28 Neut # (Auto) 8.96 K/uL (1.40-6.50) H 10/01/24 06:28 Lymph # (Auto) 0.59 K/uL (1.20-3.40) L 10/01/24 06:28 Ransom # (Auto) 0.28 K/uL (0.11-0.59) 10/01/24 06:28 Eos # (Auto) 0.07 K/uL (0.00-0.50) 10/01/24 06:28 Baso # (Auto) 0.03 K/uL (0.00-0.20) 10/01/24 06:28 Immature Gran # (Auto) 0.03 K/uL (0.01-0.20) 10/01/24 06:28 VBG pH 7.45 (7.36-7.41) H 09/30/24 19:01 VBG pCO2 33 mmHg (38-50) L 09/30/24 19:01 VBG pO2 54 mmHg 09/30/24 19:01 VBG HCO3 23 mmol/L 09/30/24 19:01 VBG O2 Saturation 86.8 % 09/30/24 19:01 VBG Base Excess -0.4 mEq/L 09/30/24 19:01 Sodium 138 mmol/L (136-145) 10/04/24 22:31 Potassium 3.9 mmol/L (3.5-5.1) 10/04/24 22:31 Chloride 107 mmol/L (98-107) 10/04/24 22:31 Carbon Dioxide 22 mmol/L (21-32) 10/04/24 22:31 Anion Gap 9 (3-11) 10/04/24 22:31 BUN 11 mg/dl (6-23) 10/04/24 22:31 Creatinine 0.53 mg/dl (0.6-1.4) L 10/04/24 22:31 Est Cr Clr Drug Dosing 186.1 ml/min 10/04/24 22:31 eGFR 124.39 10/04/24 22:31 BUN/Creatinine Ratio 20.8 (10-20) H 10/04/24 22:31 Glucose 174 mg/dl (70-99(Fasting)) H 10/04/24 22:31 POC Glucose 152 mg/dl (70-99) H 10/01/24 21:20 Lactate 0.9 mmol/L (0.4-2.0) 09/30/24 22:26 Calcium 8.7 mg/dl (8.6-10.3) 10/04/24 22:31 Phosphorus 1.9 mg/dl (2.5-4.9) L 10/04/24 22:31 Magnesium 1.9 mg/dl (1.7-2.4) 10/04/24 22:31 Total Bilirubin 0.6 mg/dl (0.2-1.0) 09/30/24 18:06 AST 14 U/L (13-39) 09/30/24 19:01 ALT 5 U/L (7-52) L 09/30/24 18:06 Alkaline Phosphatase 123 U/L (34-104) H 09/30/24 18:06 Troponin I High Sens 12.2 pg/ml (0-20) 09/30/24 18:06 Total Protein 7.2 gm/dl (6.0-8.3) 09/30/24 18:06 Albumin 3.6 gm/dl (3.4-5.0) 09/30/24 18:06 Globulin 3.6 gm/dl (2.5-4.0) 09/30/24 18:06 Albumin/Globulin Ratio 1.0 (0.9-2) 09/30/24 18:06 Lipase 16 U/L (11-82) 09/30/24 18:06 Procalcitonin 0.15 ng/ml (0-0.5) 09/30/24 19:01 Urine Color [place] 09/30/24 18:00 Urine Appearance Turbid (Clear) A 09/30/24 18:00 Urine pH 6.0 (4.5-7.5) 09/30/24 18:00 Ur Specific [place] 1.024 (1.000-1.030) 09/30/24 18:00 Urine Protein 2+ (Negative) H 09/30/24 18:00 Urine Glucose (UA) Negative (Negative) 09/30/24 18:00 Urine Ketones Negative (Negative) 09/30/24 18:00 Urine Blood 3+ (Negative) H 09/30/24 18:00 Urine Nitrite Positive (Negative) A 09/30/24 18:00 Urine Bilirubin 1+ (Negative) H 09/30/24 18:00 Urine Urobilinogen Negative (Negative) 09/30/24 18:00 Ur Leukocyte Esterase 3+ (Negative) H 09/30/24 18:00 Urine WBC (Auto) >50 /hpf (0-5) H 09/30/24 18:00 Urine RBC (Auto) >20 /hpf (0-2) H 09/30/24 18:00 U Hyaline Cast (Auto) 11-20 /lpf (0-2) H 09/30/24 18:00 U Epithel Cells (Auto) 0-2 /hpf (0-2) 09/30/24 18:00 Urine Bacteria (Auto) 3+ (None Seen) H 09/30/24 18:00 Hyaline Casts Present /lpf (None Presnt) A 09/30/24 18:00 Urine Yeast Present (None Prsent) A 09/30/24 18:00 Urine Opiates Screen Neg (Neg) 09/30/24 18:00 Ur Methadone, Qual Neg (Neg) 09/30/24 18:00 Urine Fentanyl Screen Neg (Neg) 09/30/24 18:00 Urine Barbiturates Neg (Neg) 09/30/24 18:00 Ur Phencyclidine (PCP) Neg (Neg) 09/30/24 18:00 U Amphetamines Confirm TNP 09/30/24 18:00 U Amphetamin/Meth Scrn Pos (Neg) H 09/30/24 18:00 U Methamphetamin Confrm TNP 09/30/24 18:00 Urine MDEA DNR 09/30/24 18:00 MDMA (Ecstasy) Screen Pos (Neg) H 09/30/24 18:00 MDMA DNR 09/30/24 18:00 Urine MDMA TNP 09/30/24 18:00 U OH-Alprazolam Confrm DNR 09/30/24 18:00 U Benzodiazepines Scrn Pos (Neg) H 09/30/24 18:00 7-Amino Clonazepam DNR ng/mL 09/30/24 18:00 Ur Nordiazepam Confirm DNR ng/mL 09/30/24 18:00 U OH-ethylflurazepam DNR ng/mL 09/30/24 18:00 U Lorazepam Cnf GC/MS DNR ng/mL 09/30/24 18:00 U Oxazepam Confm GC/MS DNR ng/mL 09/30/24 18:00 Ur Temazepam Confirm TNP 09/30/24 18:00 U OH-Triazolam Confirm DNR ng/mL 09/30/24 18:00 U OH-Midazolam Confirm DNR ng/mL 09/30/24 18:00 Ur Cocaine Metabolite Neg (Neg) 09/30/24 18:00 U Marijuana (THC) Screen Pos (Neg) H 09/30/24 18:00 U Marijuana THC Carboxy TNP 09/30/24 18:00 Drug Screen Comment SEE NOTE 09/30/24 18:00 Adenovirus (PCR) Not Detected (NotDetected) 09/30/24 19:21 B. pertussis DNA (PCR) Not Detected (NotDetected) 09/30/24 19:21 B.parapertussis DNA PCR Not Detected (NotDetected) 09/30/24 19:21 C. pneumoniae DNA (PCR) Not Detected (NotDetected) 09/30/24 19:21 Coronavirus OC43 (PCR) Not Detected (NotDetected) 09/30/24 19:21 Coronavirus HKU1 (PCR) Not Detected (NotDetected) 09/30/24 19:21 Coronavirus 229E (PCR) Not Detected (NotDetected) 09/30/24 19:21 SARS-CoV-2 (PCR) Not Detected (NotDetected) 09/30/24 19:21 Coronavirus NL63 (PCR) Not Detected (NotDetected) 09/30/24 19:21 Human Metapneumovir PCR Not Detected (NotDetected) 09/30/24 19:21 Influenza Type A (PCR) Not Detected (NotDetected) 09/30/24 19:21 Influenza Type B (PCR) Not Detected (NotDetected) 09/30/24 19:21 M. pneumoniae (PCR) Not Detected (NotDetected) 09/30/24 19:21 Parainfluenza 1 (PCR) Not Detected (NotDetected) 09/30/24 19:21 Parainfluenza 2 (PCR) Not Detected (NotDetected) 09/30/24 19:21 Parainfluenza 3 (PCR) Not Detected (NotDetected) 09/30/24 19:21 Parainfluenza 4 (PCR) Not Detected (NotDetected) 09/30/24 19:21 RSV (PCR) Not Detected (NotDetected) 09/30/24 19:21 Entero/Rhino (PCR) Not Detected (NotDetected) 09/30/24 19:21 Staphylococcus sp PCR DETECTED (NotDetected) A 09/30/24 19:14 Bld Cult ID Panel PCR See PCR Comment (NotDetected) 09/30/24 19:14 Impressions Chest X-Ray 09/30/24 17:55 Chest radiograph, one view History: Chest pain Comparison: 09/05/2024 Findings: Single AP view of the chest performed. Mild patchy right basilar opacity appears decreased. No pleural effusion. No pneumothorax. The cardiomediastinal silhouette is within normal limits. Normal pulmonary vascularity. Right hilar fullness could represent continuing lymphadenopathy. No visualized bony or soft tissue abnormality. Impression: Decreased patchy right basilar opacity, which may represent residual atelectasis or infection Electronically signed by Faraz Fine 09-30-2024 6:20 PM Abdomen/Pelvis CT 09/30/24 20:53 Exam(s): CT ABDOMEN + PELVIS Without Contrast EXAM: CT Abdomen and Pelvis Without Intravenous Contrast CLINICAL HISTORY: Reason for exam: sepsis. TECHNIQUE: Axial computed tomography images of the abdomen and pelvis without intravenous contrast. CTDI is 32.78 mGy and DLP is 1763.41 mGy-cm. Automated exposure control was utilized for the study. A dose lowering technique was utilized adhering to the principles of ALARA. COMPARISON: September 05, 2024 FINDINGS: Lung bases: Partial consolidation of both lower lobes may represent pneumonia or atelectasis. ABDOMEN: Liver: Unremarkable. Gallbladder and bile ducts: The gallbladder is absent. No biliary duct prominence postcholecystectomy. No choledocholithiasis is seen. Pancreas: Unremarkable. No ductal dilation. Spleen: Unremarkable. No splenomegaly. Adrenals: Unremarkable. No mass. Kidneys and ureters: There is contrast within the renal collecting system bilaterally. The previously seen calculi are obscured. No hydronephrosis or ureterolithiasis is identified. Stomach and bowel: Bowel loops are nondilated. Scattered gas fluid levels nondilated large and small bowel suggest mild ileus. There is wall thickening involving the distal sigmoid colon and rectum suggesting mild colitis. No pneumoperitoneum, free fluid, or abscess is identified. PELVIS: Appendix: No findings to suggest acute appendicitis. Bladder: There is a suprapubic catheter partially decompressing the urinary bladder. No stones. Reproductive: Unremarkable as visualized. ABDOMEN and PELVIS: Intraperitoneal space: See above. Bones/joints: There is a decubitus ulcer measuring approximately 4 cm transverse by 3 cm deep which extends down through the posterior elements of the lower sacrum and has reabsorbed the coccyx. There is debris and/or packing material within the lower sacral canal. No acute fracture. No dislocation. Soft tissues: Unremarkable. Vasculature: Unremarkable. No abdominal aortic aneurysm. Lymph nodes: Unremarkable. No enlarged lymph nodes. IMPRESSION: 1. Bowel loops are nondilated. Scattered gas fluid levels nondilated large and small bowel suggest mild ileus. There is wall thickening involving the distal sigmoid colon and rectum suggesting mild colitis. No pneumoperitoneum, free fluid, or abscess is identified. 2. Partial consolidation of both lower lobes may represent pneumonia or atelectasis. This is mildly increased compared to previous. 3. There is a decubitus ulcer measuring approximately 4 cm transverse by 3 cm deep which extends down through the posterior elements of the lower sacrum and has reabsorbed the coccyx. There is debris and/or packing material within the lower sacral canal. 4. There is contrast within the renal collecting system bilaterally. The previously seen calculi are not visible. No hydronephrosis or ureterolithiasis is identified. 5. There is a suprapubic catheter partially decompressing the urinary bladder. Electronically signed by: Cooper Miles MD 09/30/24 22:[address] 09/30/24 21:13 Exam(s): CT CHEST Without Contrast EXAM: CT Chest Without Intravenous Contrast CLINICAL HISTORY: Reason for exam: hypoxic. TECHNIQUE: Axial computed tomography images of the chest without intravenous contrast. CTDI is 22.19 mGy and DLP is 672.03 mGy-cm. Automated exposure control was utilized for the study. A dose lowering technique was utilized adhering to the principles of ALARA. COMPARISON: September 05, 2024 FINDINGS: Lungs: Consolidation of most of the right lower lobe and areas of infiltrate and/or atelectasis in the left lower lobe and dependent portion of the right upper and middle lobes. There is debris in the distal right mainstem bronchus as well as the lower and middle lobe bronchi. No mass. Pleural space: Unremarkable. No pneumothorax. No significant effusion. Heart: Unremarkable. No cardiomegaly. No significant pericardial effusion. No significant coronary artery calcifications. Bones/joints: Mild degenerative changes in both shoulders. Metallic artifact from previous lower cervical spine fusion. Mild degenerative changes throughout the spine. No acute fracture or destructive bone lesion is seen. No dislocation. Soft tissues: Unremarkable. Vasculature: Unremarkable. No thoracic aortic aneurysm. Lymph nodes: Unremarkable. No enlarged lymph nodes. IMPRESSION: 1. Consolidation of most of the right lower lobe and areas of infiltrate and/or atelectasis in the left lower lobe and dependent portion of the right upper and middle lobes. This is somewhat increased compared to previous. 2. There is debris in the distal right mainstem bronchus as well as the lower and middle lobe bronchi. Electronically signed by: Cooper Miles MD 09/30/24 23:24 PM KUB X-Ray 10/04/24 09:36 KUB HISTORY: abdominal pain COMPARISON STUDY: 10/03/2024 FINDINGS: There is moderate retained stool. No bowel obstruction seen. No gross free air. Prior gastric distention has resolved. IMPRESSION: No acute findings. ACT 112: Negative or not required by law. The above report was generated using voice recognition software. It may contain grammatical, syntax or spelling errors. Electronically signed by: Kareem Maurer M.D. 10/04/2024 10:19 AM
--- NOTE | 2024-10-05 13:10 | Hospitalist Progress Note ---
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) -- Blood culture: 08/11 growing gram-positive cocci - Staph pettenkoferi -- repeat blood cultures + Staph aureus, Staph pettenkoferi --Urine culture: Noncontributory --BioFire negative -- Aspiration precautions -- Continue Zosyn, doxycycline for now -- Continue nebs, prednisone Requested Sanchez change Supplemental oxygen as needed Minimize narcotic use as able repeat blood cultures Continue IV fluids 10/05 Vanco added to zosyn, ID consulted Echo obtained - no vegetations noted Chronic sacral decubitus/leg osteomyelitis --Wound Care consulted Per wound care note - pt refused, will try to re-assess again Colitis/Ileus Abdominal pain likely due to above Incidental finding on CT --CT: Bowel loops are nondilated. Scattered gas fluid levels nondilated large and small bowel suggest mild ileus. There is wall thickening involving the distal sigmoid colon and rectum suggesting mild colitis. No pneumoperitoneum, free fluid, or abscess is identified.There is contrast within the renal collecting system bilaterally. The previously seen calculi are not visible. No hydronephrosis or ureterolithiasis is identified. There is a suprapubic catheter partially decompressing the urinary bladder. --Obtain stool studies if develops diarrhea --On antibiotics as above --Continue lactulose, bowel regimen Follow-up stool studies AM KUB 10/03 - ordered - pt initially refused Says he only has BM when using suppository KUB improved diet advanced currently no abd. pain Marijuana use Chronic pain Counseled to quit THC use Hypokalemia Replete and monitor Other chronic conditions: Chronic diastolic heart failure (EF 65%, TTE 2022): Monitor volume status closely Hypotension on midodrine saddle PE on Eliquis HCV S/P treatment Chronic anemia, Hb Stable Chronic pain/substance abuse as per records Anxiety/mood disorder: Continue home med Functional disability: Fall precaution H/O MRSA DVT Px: Eliquis Code Status Full code Admission and Anticipated Discharge Date Admission Date: October 01, 2024 Subjective Patient seen in follow up RN at the bedside Denies abd. pain at this time poor oral intake today, but diet advanced. pt says he will eat when sister comes visit Denies any chest pain, dyspnea, dizziness ID consulted for posit. blood cultx Review of Systems Review of Systems: All systems reviewed & are unremarkable except as noted in Subjective Physical Exam Physical Exam: General Appearance:Moderately built and nourished, chronic ill appearing Head: normocephalic, Atraumatic Eyes: normal inspection, EOMI Neck: supple Respiratory/Chest: + rhonchi, No accessory muscle use, on RA Cardiovascular: S1, S2, No murmur Abdomen/GI:Soft, nontender, mild distention, Bowel sounds present : Suprapubic Catheter Extremities/Musculoskeletal:normal inspection, Trace pedal edema Neurologic/Psych: Quadriplegia, alert, awake and oriented x 3 Skin: normal color, warm.+sacral wound, facial rash Results & Data Results & Data Vital Signs (Past 12 Hours) Vital Signs Temp Pulse Resp BP BP Pulse Ox O2 Del Method 10/05/24 12:05 36.3 C L 71 14 119/77 92 Room Air 10/05/24 11:14 68 18 94 Room Air 10/05/24 08:53 36.5 C 72 16 109/71 92 Room Air 10/05/24 08:00 Room Air 10/05/24 07:16 57 L 20 95 Room Air 10/05/24 03:37 36.6 C 72 16 127/79 93 Room Air Laboratory Results 10/04/24 Range/Units 22:31 WBC 12.56 H (4.8-10.8) K/ul RBC 3.98 L (4.70-6.10) M/uL Hgb 8.7 L (14.0-18.0) g/dl Hct 29.4 L (42.0-52.0) % MCV 73.9 L (80.0-100.0) fL MCH 21.9 L (25.0-34.0) pg MCHC 29.6 L (32.0-36.0) g/dL RDW Std Deviation 50.0 H (36.4-46.3) fL RDW Coeff of Adelia 18.7 H (11.5-14.5) % Plt Count 301 (130-400) K/uL MPV 10.1 (9.4-12.4) fL Sodium 138 (136-145) mmol/L Potassium 3.9 (3.5-5.1) mmol/L Chloride 107 (98-107) mmol/L Carbon Dioxide 22 (21-32) mmol/L Anion Gap 9 (3-11) BUN 11 (6-23) mg/dl Creatinine 0.53 L (0.6-1.4) mg/dl Est Cr Clr Drug Dosing 186.1 ml/min eGFR 124.39 BUN/Creatinine Ratio 20.8 H (10-20) Glucose 174 H (70-99(Fasting)) mg/dl Calcium 8.7 (8.6-10.3) mg/dl Phosphorus 1.9 L (2.5-4.9) mg/dl Magnesium 1.9 (1.7-2.4) mg/dl Medications Administered Current Inpatient Medications Acetaminophen (Acetaminophen 325 Mg Tab) 650 mg PO Q6 PRN PRN Reason: Fever Or Pain Stop: 10/31/24 02:38 Last Admin: 10/03/24 20:56 Dose: 650 mg Al Hydrox/Mg Hydrox/Simethicone (Aluminum/Magnesium/Simeth (Maalox Max) 30 Ml Udc) 15 ml PO Q6H PRN PRN Reason: Dyspepsia Stop: 10/31/24 08:51 Albuterol (Albut/Ipratrop 3mg/0.5mg Neb 3 Ml Vial) 3 ml NEB QIDR ROSALES; Protocol Stop: 10/31/24 06:59 Last Admin: 10/05/24 11:13 Dose: 3 ml Albuterol (Albut/Ipratrop 3mg/0.5mg Neb 3 Ml Vial) 3 ml NEB Q2H PRN; Protocol PRN Reason: SOB/WHEEZING Stop: 10/31/24 03:26 Apixaban (Apixaban 5 Mg Tablet) 5 mg PO [facility] Stop: 10/31/24 08:59 Last Admin: 10/05/24 08:00 Dose: 5 mg Baclofen (Baclofen 10 Mg Tab) 10 mg PO TID PRN PRN Reason: muscle spasms Stop: 10/31/24 02:38 Last Admin: 10/04/24 21:13 Dose: 10 mg Bisacodyl (Bisacodyl 10 Mg Supp) 10 mg MN BID ROSALES Stop: 10/31/24 08:59 Last Admin: 10/05/24 08:02 Dose: Not Given Diclofenac Sodium (Diclofenac Sod 1% Gel 100 Gm Tube) 2 gm EXT BID PRN; Protocol PRN Reason: Pain Stop: 11/01/24 20:59 Docusate Sodium (Docusate Sodium 100 Mg Cap) 100 mg PO BID PRN PRN Reason: Constipation Stop: 10/31/24 02:38 Doxycycline Hyclate (Doxycycline Hyclate 100 Mg Cap) 100 mg PO BID ROSALES Stop: 10/06/24 08:59 Last Admin: 10/05/24 08:00 Dose: 100 mg Ferrous Sulfate (Ferrous Sulfate 325 Mg Tab) 325 mg PO QDB ROSALES Stop: 10/31/24 07:29 Last Admin: 10/05/24 08:00 Dose: 325 mg Gabapentin (Gabapentin 100 Mg Cap) 200 mg PO AMHS [facility] Stop: 10/31/24 08:59 Last Admin: 10/05/24 08:01 Dose: 200 mg Hydroxyzine HCl (Hydroxyzine Hcl 25 Mg Tab) 25 mg PO DAILY PRN PRN Reason: Anxiety Stop: 10/31/24 02:38 Piperacillin Sod/Tazobactam Sod (Zosyn) 4.5 gm in 100 mls @ 25 mls/hr IV Q8H [facility]; Protocol Stop: 10/06/24 07:59 Last Infusion: 10/05/24 12:05 Dose: Infused Promethazine HCl (Phenergan) 6.25 mg in 50.25 mls @ 201 mls/hr IV Q6H PRN PRN Reason: Nausea And Vomiting Stop: 10/31/24 02:41 Lactulose (Lactulose Syrup 20 Gm/30 Ml Udc) 20 gm PO TID PRN PRN Reason: Constipation Stop: 10/31/24 03:00 Last Admin: 10/03/24 20:57 Dose: 20 gm Magnesium Oxide (Magnesium Oxide 400 Mg Tab) 400 mg PO QAM [facility] Stop: 11/02/24 17:44 Last Admin: 10/05/24 08:01 Dose: 400 mg Melatonin (Melatonin 3 Mg Tab) 3 mg PO HS [facility] Stop: 10/31/24 20:59 Last Admin: 10/04/24 21:13 Dose: 3 mg Midodrine (Midodrine Hcl 10 Mg Tab) 10 mg PO TID PRN PRN Reason: Hypotension Stop: 10/31/24 02:38 Last Admin: 10/02/24 08:15 Dose: 10 mg Multivitamins (Multivitamin Tab) 1 tab PO DAILY ROSALES Stop: 10/31/24 08:59 Last Admin: 10/05/24 08:01 Dose: 1 tab Nortriptyline HCl (Nortriptyline Hcl 25 Mg Cap) 25 mg PO HS ROSALES Stop: 10/31/24 20:59 Last Admin: 10/04/24 21:13 Dose: 25 mg Oxybutynin Chloride (Oxybutynin Chloride Xl 5 Mg Tabcr) 10 mg PO QAM [facility]AL[facility] Stop: 10/31/24 08:59 Last Admin: 10/05/24 08:01 Dose: 10 mg Pantoprazole Sodium (Pantoprazole 40 Mg Tab) 40 mg PO DAILY ROSALES Stop: 10/31/24 08:59 Last Admin: 10/05/24 08:01 Dose: 40 mg Prednisone (Prednisone 20 Mg Tab) 40 mg PO DAILY ROSALES Stop: 10/06/24 08:59 Last Admin: 10/05/24 08:01 Dose: 40 mg Senna/Docusate Sodium (Docusate Sodium/Senna 50/8.6mg Tab) 2 tab PO HS ROSALES Stop: 10/31/24 20:59 Last Admin: 10/04/24 21:13 Dose: 2 tab Zinc Acetate/Diphenhydramine (Diphenhydramine 2%/Zinc 0.1% Cream 28.4gm Tube) 1 appln EXT BID ROSALES Stop: 10/31/24 20:59 Last Admin: 10/05/24 08:05 Dose: Not Given (1) Sepsis Sepsis acute organ dysfunction status: unspecified Sepsis type: sepsis due to unspecified organism Qualified Code(s): A41.9 - Sepsis, unspecified organism
[2024-10-05 15:17] LABS: 7-Aminoclonaz, Confirm NEGATIVE ng/mL (<25); Amphetamine Urine, Confirm 1194 ng/mL (<250); Hydro-Alp Ur, GC/MS 107 ng/mL (<25); Hydroxyethylflurazepam, Conf NEGATIVE ng/mL (<50); Hydroxymidazolam Ur, GC/MS NEGATIVE ng/mL (<50); Hydroxytriazolam NEGATIVE ng/mL (<50); Lorazepam, Ur GC/MS NEGATIVE ng/mL (<50); MDA negative; MDEA negative; MDMA (Ecstasy) Urine, Confirm negative; Marijuana Quant, GCMS Urine 29 ng/mL (<5); Methamphetamine, Ur Confirm 6535 ng/mL (<250); Nordiazepam, Confirm NEGATIVE ng/mL (<50); Oxazepam Ur, GC/MS NEGATIVE ng/mL (<50); Temazepam, Confirm NEGATIVE ng/mL (<50)
[2024-10-05] MEDS ORDERED: VANCOMYCIN CONSULT ACTIVE PRN (15:24)
--- NOTE | 2024-10-05 15:26 | Pharmacy Report ---
Pharmacy PK ABX Note - Date of Service October 05, 2024 - Assessment and Plan Assessment 48 year old M with PMH of COPD, HF, quadriplegia, chronic indwelling cath w/ frequent UTI, HCV, chronic sacral decubitus/leg osteo. Admitted to [place] on 10/01/24. Ordered pip/tazo + doxycycline for treatment of pneumonia. Most recent BCx growing two staph species - S.pettenkoferi and S. aureus- susceptibilities pending. ID consulted and recommended starting vancomycin IV. Plan Vancomycin * Loading dose: 1750 mg IV x 1 * Maintenance dose: 1250 mg IV every 12 hours - dosing based on recent admission vanc data * Regimen is predicted to achieve target AUC/BEATRIZ of 400-600 mg/L.hr * Vanc level will be ordered following susceptibility results Pharmacy will continue to follow and will adjust dose/frequency as necessary. Thank you.
[2024-10-05] MEDS: VANCOMYCIN HCL 1,750 MG in SODIUM CHLORIDE 0.9% 500 ML IV SCH (16:37)
[2024-10-05] MEDS: DOCUSATE SODIUM 100 MG CAP PO PRN (20:12)
[2024-10-05] MEDS: SODIUM CHLORIDE 0.9% 500 ML IV ONE (20:14)
[2024-10-06 01:33] LABS: Amphetamines+Metham, Urine Pos (Neg); Barbiturates, Urine Neg (Neg); Benzodiazepine, Urine Pos (Neg); Cocaine, Urine Neg (Neg); Fentanyl, Urine Neg (Neg); MDMA (Ecstacy), Urine Neg (Neg); Marijuana, Urine Pos (Neg); Methadone, Urine Neg (Neg); Opiate, Urine Neg (Neg); Phencyclidine, Urine Neg (Neg)
[2024-10-06] MEDS: VANCOMYCIN HCL 1,250 MG in SODIUM CHLORIDE 0.9% 250 ML IV SCH (02:06)
[2024-10-06 07:46] VITALS: TEMP 97.7
--- NOTE | 2024-10-06 08:49 | Surgery Consultation ---
Date of Consultation October 06, 2024 Assessment & Plan (1) Bacteremia: (2) Sacral decubitus ulcer: Plan No necrotic tissue appearing to require surgical debridement Could benefit from being cleaned on a regular basis Irrigated with saline today and lightly re-packed with moist to dry dressing. Repack lightly to decrease risk of pressure damage to the tissue in the ulceration. Recommend daily cleaning for now. Please re-consult surgery if questions. History of Present Illness Reason for Consultation: Sepsis, evaluate sacral wound Attending Physician: Axel Mix MD History of Present Illness 48-year-old male with medical history significant for chronic diastolic heart failure (EF 65%, TTE 2022), hypotension on as needed midodrine, saddle PE on Eliquis, COPD, chronic 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), recurrent UTI secondary to neurogenic bladder with chronic indwelling suprapubic catheter, HCV status post Rx, chronic anemia (baseline hemoglobin 9-10), chronic sacral decubitus/leg osteomyelitis, chronic pain, anxiety/mood disorder, substance abuse as per records, history MRSA, intermediate resistant Pseudomonas as per records, ongoing tobacco abuse. He is currently admitted for sepsis, possible HCAP aspiration, acute hypoxic respiratory failure secondary to COPD exacerbation and recurrent UTI. General surgery has been consulted for sacral wound evaluation for source of sepsis. Allergies Allergy/AdvReac Type Severity Reaction Status Date / Time Opioids - Morphine Analogues AdvReac severe Verified 05/17/24 15:46 bradycardia Home Medications Medication Instructions Recorded Confirmed Type albuterol sulfate 2.5 mg/3 mL 2.5 mg inhalation Q4H PRN 08/26/24 09/30/24 History (0.083 %) solution for nebulization Shortness Of Breath Or Wheezing apixaban 5 mg tablet (Eliquis) 5 mg PO AMHS 08/26/24 09/30/24 History ascorbic acid (vitamin C) 500 mg 500 mg PO DAILY 08/26/24 09/30/24 History tablet (Vitamin C) baclofen 10 mg tablet 20 mg PO TID PRN muscle spasms 08/26/24 09/30/24 History bisacodyl 10 mg rectal suppository 10 mg OK BID 08/26/24 09/30/24 History budesonide-formoterol HFA 160 2 puff inhalation BID 08/26/24 09/30/24 History mcg-4.5 mcg/actuation aerosol inhaler docusate sodium 100 mg capsule 100 mg PO BID PRN Constipation 08/26/24 09/30/24 History ferrous sulfate 325 mg (65 mg 325 mg PO QDB 08/26/24 09/30/24 History iron) tablet,delayed release hydroxyzine HCl 25 mg tablet 25 mg PO DAILY PRN Anxiety 08/26/24 09/30/24 History lactulose 10 gram/15 mL oral 20 g PO TID PRN Constipation 08/26/24 09/30/24 History solution lidocaine 5 % topical patch 1 patch topical DAILY PRN Pain 08/26/24 09/30/24 History midodrine 10 mg tablet 10 mg PO TID PRN Hypotension 08/26/24 09/30/24 History nortriptyline 25 mg capsule 25 mg PO HS 08/26/24 09/30/24 History oxybutynin chloride 10 mg 10 mg PO QAM 08/26/24 09/30/24 History tablet,extended release 24 hr pantoprazole 40 mg tablet,delayed 40 mg DAILY 08/26/24 09/30/24 History release sennosides 8.6 mg-docusate sodium 2 tab PO HS 08/26/24 09/30/24 History 50 mg tablet (Senexon-S) tiotropium bromide 2.5 2 puff inhalation QAM 08/26/24 09/30/24 History mcg/actuation mist for inhalation (Spiriva Respimat) acetaminophen 325 mg tablet 650 mg PO Q6 PRN Fever Or Pain 09/30/24 09/30/24 History gabapentin 100 mg capsule 200 mg PO AMHS 09/30/24 09/30/24 History melatonin 3 mg capsule 3 mg PO HS 09/30/24 09/30/24 History multivitamin 1 tab PO DAILY 09/30/24 09/30/24 History ondansetron 4 mg disintegrating 4 mg translingual Q6 PRN Nausea 09/30/24 09/30/24 History tablet Patient History Medical History Acute UTI Abdominal pain Aspiration pneumonitis Pneumonia Paraplegia Surgical History No pertinent past surgical history Social History Smoking Status: Former smoker Tobacco Type: Cigarettes Cigarettes Per Day: 1/2ppd; Second Hand Exposure: Yes; Do You Dip or Chew Tobacco: Yes; Hx Alcohol Use: Yes Alcohol type: hard liquor Hx Substance Use: Yes Non-Prescribed Medications: Crack / Cocaine and Marijuana Last Used Substance: Unknown Preferred Language: Syrian Communication Ability: Effective Communication Ability Comment: difficulty writing [employer] Required: No Beliefs That Will Affect Care: None Current Living Situation: Family Current Living Situation Comment: lives home with brother. has 24 hr caregivers Feels Safe at Home: Yes Assistive Devices: Hospital Bed, Mechanical Lift, Nebulizer and Wheelchair Physical Exam Constitutional: + ill appearing (chronic, not toxic appe aring) and average body habitus; not in distress and not diaphoretic Respiratory: normal respiratory effort; no respiratory distress, no labored breathing and does not use accessory muscles Gastrointestinal (Abdomen): Inspection/Auscultation: abdomen normal to inspection soft Skin: deep sacral wound, old silver dressing in a ball removed covered with wet slough/slime. Surrounding tissue without significant necrotic tissue, thin slime layer that is easily wiped away. There is no exposed bone There is no significant necrotic tissue. Superficial slime, slough can be cleared away with irrigation and gentle wipe. Results & Data Vital Signs (Past 12 Hours) Vital Signs Temp Pulse Pulse Resp BP Pulse Ox O2 Del Method 10/06/24 07:55 59 L 18 96 Room Air 10/06/24 07:45 36.5 C 51 L 16 163/95 H 96 Room Air 10/06/24 07:26 66 10/05/24 22:51 37.0 C 83 18 120/74 96 Room Air 10/05/24 22:04 83 10/05/24 21:45 Room Air PG Care Time/CCT Total # of Minutes Spent Total Time Spent with Patient: Total time spent is greater than 50% in coordination of care (as documented) at patient's floor/unit and/or counseling patient: Coding Level of Care Code 83643 OFFICE CONSULT LVL Medical Decision Making Low Complexity Diagnoses Bacteremia R78.81 Sacral decubitus ulcer L89.154 Pressure injury stage: stage 4 (2) Sacral decubitus ulcer Pressure injury stage: stage 4 Qualified Code(s): L89.154 - Pressure ulcer of sacral region, stage 4
--- NOTE | 2024-10-06 09:03 | XRay Report ---
EXAM: XR chest 1V portable CLINICAL HISTORY: chest pain TECHNIQUE: X-ray image of the chest obtained in 1 frontal projection. COMPARISON: Prior X-ray dated 09/05/2024 for comparison. FINDINGS: Pulmonary Parenchyma: Interval resolution of air space opacification in right lower zone. Stable prominent bilateral parahilar markings. No evidence of pleural effusion or pleural thickening. Heart and Mediastinum: Heart size and shape are normal. No mediastinal widening or masses. No hilar or mediastinal lymphadenopathy. Bony Thorax: Internal fixation in cervical spine. Spondylotic changes in thoracic spine. Bony thorax appears intact without fractures or deformities. Soft Tissues: Soft tissues overlying the chest wall are unremarkable. IMPRESSION: 1. Interval resolution of air space opacification in right lower zone. 2. Stable prominent bilateral parahilar markings. Electronically signed by Daniel Duenas 10-06-2024 09:03 AM
--- NOTE | 2024-10-06 09:07 | XRay Report ---
EXAM: XR KUB/Abdomen 1 view CLINICAL HISTORY: Abdomen pain. TECHNIQUE: X-ray image of the abdomen obtained in 1 frontal view. COMPARISON: Prior CT dated 08/26/2024 for comparison. FINDINGS: Gas Pattern: Fecal loaded colon. Gas pattern within the abdomen is normal. No evidence of bowel obstruction or distention. Soft Tissues: Soft tissues of the abdomen appear normal without evidence of masses. Liver, spleen, and kidneys are of normal size and position. Nodular radio-opaque density in left renal fossa, could be renal calculus. Status post cholecystectomy with surgical clips. IMPRESSION: 1. Nodular radio-opaque density in left renal fossa, could be renal calculus. 2. Fecal loaded colon, stable. Electronically signed by Daniel Duenas 10-06-2024 09:06 AM
[2024-10-06] MEDS: traMADol HCL 50 MG TABLET PO ONE (10:58)
[2024-10-06] MEDS: SIMETHICONE 80 MG CHEW PO ONE (10:59)
[2024-10-06 11:19] LABS: Hematocrit (blood only) 31.8 % (42.0-52.0); Hemoglobin 9.6 g/dl (14.0-18.0); Mean Corpuscular Hemoglobin 22.1 pg (25.0-34.0); Mean Corpuscular Hgb Conc 30.2 g/dL (32.0-36.0); Mean Corpuscular Volume 73.3 fL (80.0-100.0); Mean Platelet Volume 9.9 fL (9.4-12.4); Platelet Count 343 K/uL (130-400); RDW Coefficient of Variation 19.2 % (11.5-14.5); RDW Standard Deviation 49.6 fL (36.4-46.3); Red Blood Count 4.34 M/uL (4.70-6.10)
[2024-10-06 11:38] LABS: Anion Gap 7 (3-11); Calcium 9.3 mg/dl (8.6-10.3); Carbon Dioxide 24 mmol/L (21-32); Chloride 107 mmol/L (98-107); Magnesium 1.8 mg/dl (1.7-2.4); Sodium 138 mmol/L (136-145)
[2024-10-06 11:47] LABS: BUN Creatinine Ratio 26.2 (10-20); Blood Urea Nitrogen 11 mg/dl (6-23); Creatinine Clr Calc Pharmacy 217.4 ml/min; Glucose 96 mg/dl (70-99(Fasting)); Phosphorus 2.1 mg/dl (2.5-4.9)
[2024-10-06 11:50] LABS: Troponin I High Sensitivity < 2.3 pg/ml (0-20)
[2024-10-06] MEDS: SIMETHICONE 40 MG/0.6 ML 30ML PO ONE (13:03)
[2024-10-06] MEDS: DICYCLOMINE HCL 10 MG CAP PO SCH (14:58)
[2024-10-06 15:34] VITALS: BP 94/56; PULSE 84; RESP 20; O2SAT 94
[2024-10-06] MEDS ORDERED: SIMETHICONE 80 MG CHEW PO PRN (15:37)
--- NOTE | 2024-10-06 15:49 | Pharmacy Report ---
Pharmacy PK ABX Note - Date of Service October 06, 2024 - Assessment and Plan Assessment 10/06: * Day #2 vancomycin. Blood cultures updated (+) Staph pettenkoferi in 2 (methicillin resistant) and MRSA in 1/. Renal function stable. 10/05: * 48 year old M with PMH of COPD, HF, quadriplegia, chronic indwelling cath w/ frequent UTI, HCV, chronic sacral decubitus/leg osteo. Admitted to [place] on 10/01/24. Ordered pip/tazo + doxycycline for treatment of pneumonia. Most recent BCx growing two staph species - S.pettenkoferi and S. aureus- susceptibilities pending. ID consulted and recommended starting vancomycin IV. Plan Vancomycin * Current regimen: vancomycin 1250mg IV q12h * Random level this afternoon (~ 12.5h level prior to 3rd dose)- 12.9mcg/mL, therapeutic. Predicted to achieve ssAUC 565mg/L.hr. * Continue vancomycin 1250mg IV q12h. Monitor SCr closely. * Regimen is predicted to achieve target AUC/BEATRIZ of 400-600 mg/L.hr Pharmacy will continue to follow and will adjust dose/frequency as necessary. Thank you.
[2024-10-06] MEDS: KETOROLAC TROMETHAMINE 15 MG/ML VIAL IV ONE (15:53)
[2024-10-06] MEDS: ACETAMINOPHEN 1,000 MG/100 ML VIAL IV STA (15:54)
--- NOTE | 2024-10-06 16:05 | Hospitalist Progress Note ---
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) -- Blood culture: 08/11 growing gram-positive cocci - Staph pettenkoferi -- repeat blood cultures + Staph aureus, Staph pettenkoferi --Urine culture: Noncontributory --BioFire negative -- Aspiration precautions -- Continue Zosyn, doxycycline for now -- Continue nebs, prednisone Requested Sanchez change Supplemental oxygen as needed Minimize narcotic use as able repeat blood cultures Continue IV fluids 10/05 Vanco added to zosyn, ID consulted Echo obtained - no vegetations noted Chronic sacral decubitus/leg osteomyelitis --Wound Care consulted Per wound care note - pt refused, will try to re-assess again Colitis/Ileus Abdominal pain likely due to above Incidental finding on CT --CT: Bowel loops are nondilated. Scattered gas fluid levels nondilated large and small bowel suggest mild ileus. There is wall thickening involving the distal sigmoid colon and rectum suggesting mild colitis. No pneumoperitoneum, free fluid, or abscess is identified.There is contrast within the renal collecting system bilaterally. The previously seen calculi are not visible. No hydronephrosis or ureterolithiasis is identified. There is a suprapubic catheter partially decompressing the urinary bladder. --Obtain stool studies if develops diarrhea --On antibiotics as above --Continue lactulose, bowel regimen Follow-up stool studies AM KUB 10/03 - ordered - pt initially refused Says he only has BM when using suppository KUB improved diet advanced currently no abd. pain Marijuana use Chronic pain Counseled to quit THC use Hypokalemia Replete and monitor Other chronic conditions: Chronic diastolic heart failure (EF 65%, TTE 2022): Monitor volume status closely Hypotension on midodrine saddle PE on Eliquis HCV S/P treatment Chronic anemia, Hb Stable Chronic pain/substance abuse as per records Anxiety/mood disorder: Continue home med Functional disability: Fall precaution H/O MRSA DVT Px: Eliquis Code Status Full code Admission and Anticipated Discharge Date Admission Date: October 01, 2024 Subjective Patient seen in follow up RN at the bedside Denies abd. pain at this time poor oral intake today, but diet advanced. pt says he will eat when sister comes visit Denies any chest pain, dyspnea, dizziness ID consulted for posit. blood cultx Review of Systems Review of Systems: All systems reviewed & are unremarkable except as noted in Subjective Physical Exam Physical Exam: General Appearance:Moderately built and nourished, chronic ill appearing Head: normocephalic, Atraumatic Eyes: normal inspection, EOMI Neck: supple Respiratory/Chest: + rhonchi, No accessory muscle use, on RA Cardiovascular: S1, S2, No murmur Abdomen/GI:Soft, nontender, mild distention, Bowel sounds present : Suprapubic Catheter Extremities/Musculoskeletal:normal inspection, Trace pedal edema Neurologic/Psych: Quadriplegia, alert, awake and oriented x 3 Skin: normal color, warm.+sacral wound, facial rash Results & Data Results & Data Vital Signs (Past 12 Hours) Vital Signs Temp Pulse Pulse Resp BP Pulse Ox O2 Del Method 10/06/24 15:33 36.5 C 84 20 94/56 L 94 Room Air 10/06/24 14:38 72 16 96 Room Air 10/06/24 11:17 36.5 C 80 20 129/87 94 Room Air 10/06/24 10:17 77 16 98 Room Air 10/06/24 07:55 59 L 18 96 Room Air 10/06/24 07:45 36.5 C 51 L 16 163/95 H 96 Room Air 10/06/24 07:26 66 Laboratory Results 10/06/24 10/06/24 10/05/24 Range/Units 14:31 10:40 20:31 WBC 12.20 H (4.8-10.8) K/ul RBC 4.34 L (4.70-6.10) M/uL Hgb 9.6 L (14.0-18.0) g/dl Hct 31.8 L (42.0-52.0) % MCV 73.3 L (80.0-100.0) fL MCH 22.1 L (25.0-34.0) pg MCHC 30.2 L (32.0-36.0) g/dL RDW Std Deviation 49.6 H (36.4-46.3) fL RDW Coeff of Adelia 19.2 H (11.5-14.5) % Plt Count 343 (130-400) K/uL MPV 9.9 (9.4-12.4) fL Sodium 138 (136-145) mmol/L Potassium 3.0 L D (3.5-5.1) mmol/L Chloride 107 (98-107) mmol/L Carbon Dioxide 24 (21-32) mmol/L Anion Gap 7 (3-11) BUN 11 (6-23) mg/dl Creatinine 0.42 L (0.6-1.4) mg/dl Est Cr Clr Drug Dosing 217.4 ml/min eGFR 133.44 BUN/Creatinine Ratio 26.2 H (10-20) Glucose 96 (70-99(Fasting)) mg/dl Calcium 9.3 (8.6-10.3) mg/dl Phosphorus 2.1 L (2.5-4.9) mg/dl Magnesium 1.8 (1.7-2.4) mg/dl Troponin I High Sens < 2.3 (0-20) pg/ml Random Vancomycin 12.9 (10-20) mcg/ml Urine Opiates Screen Neg (Neg) Ur Methadone, Qual Neg (Neg) Urine Fentanyl Screen Neg (Neg) Urine Barbiturates Neg (Neg) Ur Phencyclidine (PCP) Neg (Neg) U Amphetamines Confirm Pending U Amphetamin/Meth Scrn Pos H (Neg) U Methamphetamin Confrm Pending MDMA (Ecstasy) Screen Neg (Neg) U OH-Alprazolam Confrm Pending U Benzodiazepines Scrn Pos H (Neg) 7-Amino Clonazepam Pending Ur Nordiazepam Confirm Pending U OH-ethylflurazepam Pending U Lorazepam Cnf GC/MS Pending U Oxazepam Confm GC/MS Pending Ur Temazepam Confirm Pending U OH-Triazolam Confirm Pending U OH-Midazolam Confirm Pending Ur Cocaine Metabolite Neg (Neg) U Marijuana (THC) Screen Pos H (Neg) U Marijuana THC Carboxy Pending Drug Screen Comment Pending Medications Administered Current Inpatient Medications Acetaminophen (Acetaminophen 325 Mg Tab) 650 mg PO Q6 PRN PRN Reason: Fever Or Pain Stop: 10/31/24 02:38 Last Admin: 10/03/24 20:56 Dose: 650 mg Al Hydrox/Mg Hydrox/Simethicone (Aluminum/Magnesium/Simeth (Maalox Max) 30 Ml Udc) 15 ml PO Q6H PRN PRN Reason: Dyspepsia Stop: 10/31/24 08:51 Albuterol (Albut/Ipratrop 3mg/0.5mg Neb 3 Ml Vial) 3 ml NEB QIDR [facility]; Protocol Stop: 10/31/24 06:59 Last Admin: 10/06/24 14:38 Dose: 3 ml Albuterol (Albut/Ipratrop 3mg/0.5mg Neb 3 Ml Vial) 3 ml NEB Q2H PRN; Protocol PRN Reason: SOB/WHEEZING Stop: 10/31/24 03:26 Apixaban (Apixaban 5 Mg Tablet) 5 mg PO [facility] Stop: 10/31/24 08:59 Last Admin: 10/06/24 10:58 Dose: 5 mg Baclofen (Baclofen 10 Mg Tab) 10 mg PO TID PRN PRN Reason: muscle spasms Stop: 10/31/24 02:38 Last Admin: 10/06/24 13:26 Dose: 10 mg Bisacodyl (Bisacodyl 10 Mg Supp) 10 mg [place] BID [facility] Stop: 10/31/24 08:59 Last Admin: 10/06/24 10:58 Dose: 10 mg Diclofenac Sodium (Diclofenac Sod 1% Gel 100 Gm Tube) 2 gm EXT BID PRN; Protocol PRN Reason: Pain Stop: 11/01/24 20:59 Dicyclomine HCl (Dicyclomine Hcl 10 Mg Cap) 10 mg PO Q6H [facility] Stop: 11/05/24 14:14 Last Admin: 10/06/24 14:58 Dose: 10 mg Docusate Sodium (Docusate Sodium 100 Mg Cap) 100 mg PO BID PRN PRN Reason: Constipation Stop: 10/31/24 02:38 Last Admin: 10/06/24 10:58 Dose: 100 mg Ferrous Sulfate (Ferrous Sulfate 325 Mg Tab) 325 mg PO QDB [facility] Stop: 10/31/24 07:29 Last Admin: 10/06/24 10:57 Dose: 325 mg Gabapentin (Gabapentin 100 Mg Cap) 200 mg PO [facility] Stop: 10/31/24 08:59 Last Admin: 10/06/24 10:57 Dose: 200 mg Hydroxyzine HCl (Hydroxyzine Hcl 25 Mg Tab) 25 mg PO DAILY PRN PRN Reason: Anxiety Stop: 10/31/24 02:38 Promethazine HCl (Phenergan) 6.25 mg in 50.25 mls @ 201 mls/hr IV Q6H PRN PRN Reason: Nausea And Vomiting Stop: 10/31/24 02:41 Vancomycin HCl 1,250 mg/ (Sodium Chloride) 275 mls @ 200 mls/hr IV Q12H [facility] Stop: 10/20/24 01:59 Last Admin: 10/06/24 15:54 Dose: 200 mls/hr Lactulose (Lactulose Syrup 20 Gm/30 Ml Udc) 20 gm PO TID PRN PRN Reason: Constipation Stop: 10/31/24 03:00 Last Admin: 10/06/24 15:54 Dose: 20 gm Magnesium Oxide (Magnesium Oxide 400 Mg Tab) 400 mg PO QAM [facility] Stop: 11/02/24 17:44 Last Admin: 10/06/24 10:57 Dose: 400 mg Melatonin (Melatonin 3 Mg Tab) 3 mg PO [facility] Stop: 10/31/24 20:59 Last Admin: 10/05/24 20:16 Dose: 3 mg Midodrine (Midodrine Hcl 10 Mg Tab) 10 mg PO TID PRN PRN Reason: Hypotension Stop: 10/31/24 02:38 Last Admin: 10/02/24 08:15 Dose: 10 mg Miscellaneous Information (Vancomycin Consult Active) 1 each N/A UD PRN PRN Reason: Consult Stop: 11/04/24 15:23 Multivitamins (Multivitamin Tab) 1 tab PO DAILY [facility] Stop: 10/31/24 08:59 Last Admin: 10/06/24 10:59 Dose: 1 tab Nortriptyline HCl (Nortriptyline Hcl 25 Mg Cap) 25 mg PO HS [facility] Stop: 10/31/24 20:59 Last Admin: 10/05/24 20:11 Dose: 25 mg Oxybutynin Chloride (Oxybutynin Chloride Xl 5 Mg Tabcr) 10 mg PO QAM [facility] Stop: 10/31/24 08:59 Last Admin: 10/06/24 10:57 Dose: 10 mg Pantoprazole Sodium (Pantoprazole 40 Mg Tab) 40 mg PO DAILY [facility] Stop: 10/31/24 08:59 Last Admin: 10/06/24 10:58 Dose: 40 mg Senna/Docusate Sodium (Docusate Sodium/Senna 50/8.6mg Tab) 2 tab PO HS [facility] Stop: 10/31/24 20:59 Last Admin: 10/05/24 20:12 Dose: 2 tab Simethicone (Simethicone 80 Mg Chew) 80 mg PO Q6H PRN PRN Reason: Flatulence Stop: 11/05/24 15:36 Zinc Acetate/Diphenhydramine (Diphenhydramine 2%/Zinc 0.1% Cream 28.4gm Tube) 1 appln EXT BID [facility] Stop: 10/31/24 20:59 Last Admin: 10/06/24 13:03 Dose: Not Given (1) Sepsis Sepsis acute organ dysfunction status: unspecified Sepsis type: sepsis due to unspecified organism Qualified Code(s): A41.9 - Sepsis, unspecified organism
--- NOTE | 2024-10-06 17:45 | Communication Note ---
Date of Service: October 06, 2024 Called to bedside by Charge Nurse at 1618 due to verbal aggression. Security additionally called a present at bedside. It was reported to this leader writer that there were ongoing staff safety concerns due to verbal obscenities, as well as multiple visitors at given time, causing interference with patient care. Multiple attempts were made to discuss that this aggressive verbal exchange was inappropriate and active solutions were offered to help ensure that patient care was a priority, and additionally to ensure staff safety was assured. Patient refused and requested to leave AMA. Patient with family member present in room during this exchange; she refused to identify herself by name or depth of relation. It was expressed that patient has MRSA bacteremia and that leaving AMA will likely result in sepsis/readmission and potentially . Patient on multiple times verbalized understanding and stated "Get me my fucking papers" Patient's attending provider, presented to bedside to further emphasize the need for patient and staff safety; however, patient further more request to leave AGAINST MEDICAL ADVICE. Patient was alert and oriented and verbalized understanding of risks. Return precautions were shared with patient. Security was present during interactions with patient Patient is a functional quadriplegic. Therefore two witness signature was performed.
[2024-10-07 20:28] LABS: A calco-baum cmplx NotReported Not Detected (NotDetected); Bact fragilis Not Reported Not Detected (NotDetected); Blood Culture Id Panel See PCR Comment (NotDetected); C auris Not Reported Not Detected (NotDetected); Calbicans Not Reported Not Detected (NotDetected); Candida glabrata Not Reported Not Detected (NotDetected); Candida krusei Not Reported Not Detected (NotDetected); Cneoformans/gatti Not Reported Not Detected (NotDetected); Cparapsilosis Not Reported Not Detected (NotDetected); E cloacae compx Not Reported Not Detected (NotDetected); Efaecalis Not Reported Not Detected (NotDetected); Efaecium Not Reported Not Detected (NotDetected); Enterobacterales Not Reported Not Detected (NotDetected); Escherichia coli Not Reported Not Detected (NotDetected); H influenzae Not Reported Not Detected (NotDetected); K aerogenes Not Reported Not Detected (NotDetected); Koxytoca Not Reported Not Detected (NotDetected); Kpneumoniae grp Not Reported Not Detected (NotDetected); Lmonocyt Not Reported Not Detected (NotDetected); N meningitidis Not Reported Not Detected (NotDetected); P aeruginosa Not Reported Not Detected (NotDetected); Proteus spp Not Reported Not Detected (NotDetected); Salmonella spp Not Reported Not Detected (NotDetected); Staph lugdunensis Not Reported Not Detected (NotDetected); Staph spp. Not Reported DETECTED (NotDetected); Staphaureus Not Reported Not Detected (NotDetected); Staphepi Not Reported DETECTED (NotDetected); Staphylococcus spp. DETECTED (NotDetected); Stenmaltophilia Not Reported Not Detected (NotDetected); Strep agal(GrpB) Not Reported Not Detected (NotDetected); Strep pneum Not Reported Not Detected (NotDetected); Strep pyog (GrpA) Not Reported Not Detected (NotDetected); Strep spp Not Reported Not Detected (NotDetected)
[2024-10-07 21:16] LABS: Staphylococcus epidermidis DETECTED (NotDetected); mecAC Resistant Gene DETECTED (NotDetected)
--- NOTE | 2024-10-08 13:54 | Electrocardiogram Report ---
Test Reason : Blood Pressure : */* mmHG Vent. Rate : 60 BPM Atrial Rate : 60 BPM P-R Int : 168 ms QRS Dur : 88 ms QT Int : 446 ms P-R-T Axes : 28 -4 13 degrees QTcB Int : 446 ms Poor data quality, interpretation may be adversely affected Normal sinus rhythm Nonspecific T wave abnormality Abnormal ECG When compared with ECG of 30-Sep-2024 18:03, Vent. rate has decreased by 33 bpm Confirmed by Thomas Goode ([id number]) on 10/08/2024 1:54:22 PM Referred By: REFERRED SELF Confirmed By: Thomas Goode
[2024-10-09 08:09] LABS: 7-Aminoclonaz, Confirm NEGATIVE ng/mL (<25); Amphetamine Urine, Confirm 381 ng/mL (<250); Hydro-Alp Ur, GC/MS 155 ng/mL (<25); Hydroxyethylflurazepam, Conf NEGATIVE ng/mL (<50); Hydroxymidazolam Ur, GC/MS NEGATIVE ng/mL (<50); Hydroxytriazolam NEGATIVE ng/mL (<50); Lorazepam, Ur GC/MS NEGATIVE ng/mL (<50); Marijuana Quant, GCMS Urine 45 ng/mL (<5); Methamphetamine, Ur Confirm 1287 ng/mL (<250); Nordiazepam, Confirm NEGATIVE ng/mL (<50); Oxazepam Ur, GC/MS NEGATIVE ng/mL (<50); Temazepam, Confirm NEGATIVE ng/mL (<50)
== END 2024-10-06 19:35 | disposition left against medical advice (07) | DRG 871 ==
LOC: ED 17:47 → EDINP 10-01 02:38 → SUATTDRO 10-01 02:38 → EDINP 10-02 17:38 → 2W 10-02 18:20

== ENCOUNTER 2025-03-21 03:32 | Inpatient (IN) ==
--- NOTE | 2025-03-21 03:57 | Emergency Department Note ---
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 Prior hospitalizations for sepsis bacteremia complicated UTIs. Presents via ambulance from home today. Reports over the past week experiencing increasing weakness and fatigue. Was seen at [facility] by his report over the weekend and discharged on oral antibiotics Cipro. States he is having soreness and discomfort around his lower abdomen and a suprapubic catheter. States it has been draining. Reports chills and feeling warm at times. Denies nausea or vomiting. States his blood pressures been somewhat labile at home even with his midodrine sometimes around 90 systolic and other times 180 systolic. Denies falls or new trauma. Does report continued sacral decubitus ulceration as well as a wound to his left foot. States he does not believe the oral antibiotics is working as these generally do not. Patient's sister later relays that but she is concerned he could be septic as his blood pressure has been high recently and this sometimes happens to him. He has been more fatigued and tired than normal. Reiterates that oral antibiotics have been ineffective for him in the past. Patient sister does relay that his left foot wound is improving recently and prior had a significant black eschar. PAST MEDICAL HISTORY: As noted above MEDICATIONS: Reviewed home medication list SOCIAL HISTORY: Resides at home PHYSICAL EXAM: GENERAL: alert and oriented in no acute distress on stretcher Head: normocephalic and atraumatic EYES: No injection, discharge or icterus. EOMI. NECK: Trachea midline. Healed postsurgical wounds. ENT: Mucous membranes pink and moist. LUNGS: Airway patent. No retractions. Breath sounds clear HEART: Regular rate and rhythm. No chest wall tenderness ABDOMEN: Soft lower abdominal suprapubic catheter in place with some slight erythema at the insertion point. No bleeding. Mild lower abdominal tenderness. Not peritoneal. Large tunneling sacral decubitus ulceration noted with mild erythema externally noted. No crepitus. SKIN: Acyanotic, warm, dry, without rashes EXTREMITIES: Trace swelling of the lower extremities with a 1 cm granulated wound with trace discharge on the lateral fifth metatarsal region around the MTP joint area. No significant surrounding erythema. Some contractures of the upper extremities noted. NEUROLOGICAL: No aphasia. No facial droop or slurred speech. Some contractures of the upper extremities but movement of the bilateral upper extremities limitations to the hand. EK bpm normal sinus rhythm. No PVC or PAC. No acute ST segment elevation or depression with a QTc of 414. CONTINUOUS CARDIAC MONITORING: was ordered and showed a heart rate of 50s to 60s bpm in normal sinus rhythm/sinus pericardia Patient's laboratory studies and imaging reviewed. Differential includes Infection, dehydration, metabolic abnormality, hypo/hyperglycemia, electrolyte disturbance, anemia, hypoxia, cardiac sources, intracerebral event, toxicologic, neurologic, as well as other pathologies. IMPRESSION/MEDICAL DECISION MAKING: Patient obviously has risk given his suprapubic catheter and chronic medical conditions for infection, recurrent sepsis or bacteremia, and dysautonomia. Cultures and lactate are ordered as well as blood work. UA ordered. Prior microbiology reviewed. Does have a small centimeter size wound to the foot possibly mildly infected but does not appear significantly cellulitic extending up the foot. Has a large tunnel packed decubitus ulceration and as such a CT scan of the abdomen pelvis to look for depth and deeper involvement as well as to exclude any other urinary pathology or lower abdominal issue given his discomfort here was completed. IV team had to obtain IV access and blood work here given his contracted upper extremities. No severe electrolyte abnormalities or signs of renal dysfunction. Not severely anemic. Urinalysis concerning for infection given his symptoms, empirically with Zosyn reviewing prior microbiology samples here with Pseudomonas. Does have samples resistant to fluoroquinolones. Chest x-ray per my review without obvious evidence of fluid overload or pneumonia. Negative respiratory viral panel. Stable to slightly improved mild anemia. No leukocytosis. Normal lactate. Normal procalcitonin. No significant transaminitis or evidence of renal dysfunction today. CT imaging without significant acute findings stable prior sacral wound. Will bring him into the hospital given his failure of outpatient treatment on fluoroquinolones with presumed UTI. Left foot wound does not appear severely infected at this time likely more granulated. Will be covered by similar antibiotics. Patient later requesting something for pain but seems somewhat drowsy and mildly hypoxic and 1 to be careful avoid oversedation. Toradol was ordered As well as Zofran. Nursing staff reports it seems that he used a marijuana vaping pen and may have contributed some transient desaturations. I have remove this from his immediate reach at this time for safety purposes. DIAGNOSIS: Acute UTI, history of cervical spinal cord injury, weakness DISPOSITION: Hospitalist will evaluate Patient was agreeable with this plan. Past Med/Surg History Problem List (Updated 03/21/25 @ 06:59 by Cooper Grande M.D.) Open wound of left foot (Acute) Sacral wound (Acute) Bacteremia Aspiration pneumonia Suprapubic catheter dysfunction Soft tissue infection Hypokalemia (Acute) Pneumonia involving right lung (Acute) Elevated hemidiaphragm Abnormal chest CT Pneumonia (Acute) Cough (Acute) Left sided abdominal pain (Acute) Quadriplegia (Acute) Hypotension (Acute) Abdominal pain Autonomic dysreflexia Constipation Hydronephrosis (Acute) Acute urinary retention (Acute) Leukocytosis (Acute) Complication, blocked suprapubic catheter Hypokalemia (Acute) Hypomagnesemia (Acute) Anemia (Acute) Quadriplegia (Acute) Sacral decubitus ulcer (Acute) Acute UTI (Acute) Hypotension (Acute) Encephalopathy Pneumonia (Acute) Complicated urinary tract infection (Acute Unknown) Change or removal of nonsurgical wound dressing Acute hypoxemic respiratory failure (Acute) Chest pain (Acute) Severe sepsis (Acute) MRSA carrier Pneumonia (Acute) Hypoxic respiratory failure (Acute) 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 (Acute) Leg wound, right Leg wound, left History of pulmonary embolism Hypoxia (Acute) RSV (respiratory syncytial virus infection) Chronic pain (Acute) Suprapubic catheter (Acute) Complicated UTI (urinary tract infection) (Acute) Sacral decubitus ulcer, stage IV (Acute) Chronic osteomyelitis of sacrum Medical History Acute UTI Abdominal pain Aspiration pneumonitis Pneumonia Paraplegia Surgical History No pertinent past surgical history Social History Smoking Status: Current every day smoker Tobacco Type: Cigarettes Cigarettes Per Day: 1/2ppd; Second Hand Exposure: Yes; Do You Dip or Chew Tobacco: Yes; Hx Alcohol Use: Yes Alcohol type: hard liquor Hx Substance Use: Yes Non-Prescribed Medications: Crack / Cocaine and Marijuana Last Used Substance: Unknown Preferred Language: Ukrainian Communication Ability: Effective Communication Ability Comment: difficulty writing 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 has 24 hr caregivers Feels Safe at Home: Yes Assistive Devices: Hospital Bed, Mechanical Lift, Nebulizer and Wheelchair Allergies Allergies Allergy/AdvReac Type Severity Reaction Status Date / Time Opioids - Morphine Analogues AdvReac severe Verified 05/17/24 15:46 bradycardia Home Meds Home Medications Medication Instructions Recorded Confirmed albuterol sulfate 2.5 mg/3 mL 2.5 mg inhalation Q4H PRN 08/26/24 09/30/24 (0.083 %) solution for nebulization Shortness Of Breath Or Wheezing apixaban 5 mg tablet (Eliquis) 5 mg PO AMHS 08/26/24 09/30/24 ascorbic acid (vitamin C) 500 mg 500 mg PO DAILY 08/26/24 09/30/24 tablet (Vitamin C) baclofen 10 mg tablet 20 mg PO TID PRN muscle spasms 08/26/24 09/30/24 bisacodyl 10 mg rectal suppository 10 mg DE BID 08/26/24 09/30/24 budesonide-formoterol HFA 160 2 puff inhalation BID 08/26/24 09/30/24 mcg-4.5 mcg/actuation aerosol inhaler docusate sodium 100 mg capsule 100 mg PO BID PRN Constipation 08/26/24 09/30/24 ferrous sulfate 325 mg (65 mg 325 mg PO QDB 08/26/24 09/30/24 iron) tablet,delayed release hydroxyzine HCl 25 mg tablet 25 mg PO DAILY PRN Anxiety 08/26/24 09/30/24 lactulose 10 gram/15 mL oral 20 g PO TID PRN Constipation 08/26/24 09/30/24 solution lidocaine 5 % topical patch 1 patch topical DAILY PRN Pain 08/26/24 09/30/24 midodrine 10 mg tablet 10 mg PO TID PRN Hypotension 08/26/24 09/30/24 nortriptyline 25 mg capsule 25 mg PO HS 08/26/24 09/30/24 oxybutynin chloride 10 mg 10 mg PO QAM 08/26/24 09/30/24 tablet,extended release 24 hr pantoprazole 40 mg tablet,delayed 40 mg DAILY 08/26/24 09/30/24 release sennosides 8.6 mg-docusate sodium 2 tab PO HS 08/26/24 09/30/24 50 mg tablet (Senexon-S) tiotropium bromide 2.5 2 puff inhalation COUNT INCLUDES [facility] 08/26/24 09/30/24 mcg/actuation mist for inhalation (Spiriva Respimat) acetaminophen 325 mg tablet 650 mg PO Q6 PRN Fever Or Pain 09/30/24 09/30/24 gabapentin 100 mg capsule 200 mg PO [facility] 09/30/24 09/30/24 melatonin 3 mg capsule 3 mg PO HS 09/30/24 09/30/24 multivitamin 1 tab PO DAILY 09/30/24 09/30/24 ondansetron 4 mg disintegrating 4 mg translingual Q6 PRN Nausea 09/30/24 09/30/24 tablet Results & Data (ED) Vital Signs Vital Signs - 24 hr 03/21/25 03:16 03/21/25 03:16 03/21/25 03:38 Temperature 37.7 C H Temperature Source Oral Pulse Rate 65 60 Pulse Rate [Apical] Pulse Rate from SpO2 Sensor Respiratory Rate 18 Respiratory Effort / Characteristics Non-Labored Non-Labored Respiratory Depth Normal Normal Respiratory Pattern Blood Pressure 109/76 Blood Pressure [Right Arm] Blood Pressure Mean 87 Blood Pressure Mean [Right Arm] Pulse Oximetry 95 Oxygen Delivery Method Room Air Oxygen Flow Rate Sepsis Recent Fever Within 48 Hours No Sepsis New/Unexplained Change in Mental Status No Sepsis Action Taken by Nursing No Action Required 03/21/25 03:39 03/21/25 04:00 03/21/25 04:27 Temperature Temperature Source Pulse Rate 66 60 56 L Pulse Rate [Apical] Pulse Rate from SpO2 Sensor 66 61 56 L Respiratory Rate 22 19 18 Respiratory Effort / Characteristics Respiratory Depth Respiratory Pattern Blood Pressure 109/76 112/77 105/72 Blood Pressure [Right Arm] Blood Pressure Mean 87 88 83 Blood Pressure Mean [Right Arm] Pulse Oximetry 95 95 95 Oxygen Delivery Method Room Air Room Air Room Air Oxygen Flow Rate Sepsis Recent Fever Within 48 Hours Sepsis New/Unexplained Change in Mental Status Sepsis Action Taken by Nursing 03/21/25 05:00 03/21/25 05:16 03/21/25 06:00 Temperature Temperature Source Pulse Rate 61 59 L Pulse Rate [Apical] 68 Pulse Rate from SpO2 Sensor 60 Respiratory Rate 18 20 16 Respiratory Effort / Characteristics Non-Labored Spontaneous Respiratory Depth Normal Respiratory Pattern Regular Blood Pressure 105/72 115/78 Blood Pressure [Right Arm] 105/72 Blood Pressure Mean 76 90 Blood Pressure Mean [Right Arm] 83 Pulse Oximetry 97 99 94 Oxygen Delivery Method Room Air Room Air Room Air Oxygen Flow Rate Sepsis Recent Fever Within 48 Hours Sepsis New/Unexplained Change in Mental Status Sepsis Action Taken by Nursing 03/21/25 06:20 03/21/25 06:22 Temperature Temperature Source Pulse Rate Pulse Rate [Apical] Pulse Rate from SpO2 Sensor Respiratory Rate Respiratory Effort / Characteristics Respiratory Depth Respiratory Pattern Blood Pressure Blood Pressure [Right Arm] Blood Pressure Mean Blood Pressure Mean [Right Arm] Pulse Oximetry 76 L 99 Oxygen Delivery Method Room Air Oxymask Oxygen Flow Rate 3 Sepsis Recent Fever Within 48 Hours Sepsis New/Unexplained Change in Mental Status Sepsis Action Taken by Nursing Laboratory Data 03/21/25 04:37 03/21/25 04:37 Lab Results 03/21/25 03/21/25 03/21/25 Range/Units 04:05 04:08 04:37 WBC 7.62 (4.8-10.8) K/ul RBC 4.42 L (4.70-6.10) M/uL Hgb 10.4 L (14.0-18.0) g/dl Hct 34.4 L (42.0-52.0) % MCV 77.8 L (80.0-100.0) fL MCH 23.5 L (25.0-34.0) pg MCHC 30.2 L (32.0-36.0) g/dL RDW Std Deviation 47.7 H (36.4-46.3) fL RDW Coeff of Adelia 16.8 H (11.5-14.5) % Plt Count 259 (130-400) K/uL MPV 10.0 (9.4-12.4) fL Immature Gran % (Auto) 0.4 % Neut % (Auto) 68.6 % Lymph % (Auto) 18.4 % [place] % (Auto) 8.9 % Eos % (Auto) 2.9 % Baso % (Auto) 0.8 % Neut # (Auto) 5.23 (1.40-6.50) K/uL Lymph # (Auto) 1.40 (1.20-3.40) K/uL [place] # (Auto) 0.68 H (0.11-0.59) K/uL Eos # (Auto) 0.22 (0.00-0.50) K/uL Baso # (Auto) 0.06 (0.00-0.20) K/uL Immature Gran # (Auto) 0.03 (0.01-0.20) K/uL PT (9.0-12.0) Seconds INR (0.9-1.1) Sodium 140 (136-145) mmol/L Potassium 3.2 L (3.5-5.1) mmol/L Chloride 105 (98-107) mmol/L Carbon Dioxide 29 (21-32) mmol/L Anion Gap 6 (3-11) BUN 8 (6-23) mg/dl Creatinine 0.47 L (0.6-1.4) mg/dl Est Cr Clr Drug Dosing 214.2 ml/min eGFR 128.19 BUN/Creatinine Ratio 17.0 (10-20) Glucose 124 H (70-99(Fasting)) mg/dl Lactate (0.4-2.0) mmol/L Calcium 9.0 (8.6-10.3) mg/dl Total Bilirubin 0.3 (0.2-1.0) mg/dl AST 15 (13-39) U/L ALT 8 (7-52) U/L Alkaline Phosphatase 135 H (34-104) U/L Troponin I High Sens 4.3 (0-20) pg/ml Total Protein 6.2 (6.0-8.3) gm/dl Albumin 3.4 (3.4-5.0) gm/dl Globulin 2.8 (2.5-4.0) gm/dl Albumin/Globulin Ratio 1.2 (0.9-2) Lipase 18 (11-82) U/L Procalcitonin (0-0.5) ng/ml Urine Color Yellow Urine Appearance Turbid A (Clear) Urine pH 6.5 (4.5-7.5) Ur Specific [place] 1.019 (1.000-1.030) Urine Protein 1+ H (Negative) Urine Glucose (UA) Negative (Negative) Urine Ketones Trace H (Negative) Urine Blood 2+ H (Negative) Urine Nitrite Positive A (Negative) Urine Bilirubin Negative (Negative) Urine Urobilinogen Negative (Negative) Ur Leukocyte Esterase 3+ H (Negative) Urine WBC (Auto) >50 H (0-5) /hpf Urine RBC (Auto) >20 H (0-2) /hpf U Hyaline Cast (Auto) >20 H (0-2) /lpf U Epithel Cells (Auto) 0-2 (0-2) /hpf Urine Bacteria (Auto) 2+ H (None Seen) Calcium Oxalate Crystal Present A (None Prsent) Amorphous Sediment Present A (None Prsent) Urine Mucus Present A (None Prsent) Urine Yeast Present A (None Prsent) Urine Comment Adenovirus (PCR) Not Detected (NotDetected) B. pertussis DNA (PCR) Not Detected (NotDetected) B.parapertussis DNA PCR Not Detected (NotDetected) C. pneumoniae DNA (PCR) Not Detected (NotDetected) Coronavirus OC43 (PCR) Not Detected (NotDetected) Coronavirus HKU1 (PCR) Not Detected (NotDetected) Coronavirus 229E (PCR) Not Detected (NotDetected) SARS-CoV-2 (PCR) Not Detected (NotDetected) Coronavirus NL63 (PCR) Not Detected (NotDetected) Human Metapneumovir PCR Not Detected (NotDetected) Influenza Type A (PCR) Not Detected (NotDetected) Influenza Type B (PCR) Not Detected (NotDetected) M. pneumoniae (PCR) Not Detected (NotDetected) Parainfluenza 1 (PCR) Not Detected (NotDetected) Parainfluenza 2 (PCR) Not Detected (NotDetected) Parainfluenza 3 (PCR) Not Detected (NotDetected) Parainfluenza 4 (PCR) Not Detected (NotDetected) RSV (PCR) Not Detected (NotDetected) Entero/Rhino (PCR) Not Detected (NotDetected) 03/21/25 Range/Units 04:58 WBC (4.8-10.8) K/ul RBC (4.70-6.10) M/uL Hgb (14.0-18.0) g/dl Hct (42.0-52.0) % MCV (80.0-100.0) fL MCH (25.0-34.0) pg MCHC (32.0-36.0) g/dL RDW Std Deviation (36.4-46.3) fL RDW Coeff of Adelia (11.5-14.5) % Plt Count (130-400) K/uL MPV (9.4-12.4) fL Immature Gran % (Auto) % Neut % (Auto) % Lymph % (Auto) % [place] % (Auto) % Eos % (Auto) % Baso % (Auto) % Neut # (Auto) (1.40-6.50) K/uL Lymph # (Auto) (1.20-3.40) K/uL [place] # (Auto) (0.11-0.59) K/uL Eos # (Auto) (0.00-0.50) K/uL Baso # (Auto) (0.00-0.20) K/uL Immature Gran # (Auto) (0.01-0.20) K/uL PT 10.8 (9.0-12.0) Seconds INR 1.0 (0.9-1.1) Sodium (136-145) mmol/L Potassium (3.5-5.1) mmol/L Chloride (98-107) mmol/L Carbon Dioxide (21-32) mmol/L Anion Gap (3-11) BUN (6-23) mg/dl Creatinine (0.6-1.4) mg/dl Est Cr Clr Drug Dosing ml/min eGFR BUN/Creatinine Ratio (10-20) Glucose (70-99(Fasting)) mg/dl Lactate 1.5 (0.4-2.0) mmol/L Calcium (8.6-10.3) mg/dl Total Bilirubin (0.2-1.0) mg/dl AST (13-39) U/L ALT (7-52) U/L Alkaline Phosphatase (34-104) U/L Troponin I High Sens (0-20) pg/ml Total Protein (6.0-8.3) gm/dl Albumin (3.4-5.0) gm/dl Globulin (2.5-4.0) gm/dl Albumin/Globulin Ratio (0.9-2) Lipase (11-82) U/L Procalcitonin 0.06 (0-0.5) ng/ml Urine Color Urine Appearance (Clear) Urine pH (4.5-7.5) Ur Specific [place] (1.000-1.030) Urine Protein (Negative) Urine Glucose (UA) (Negative) Urine Ketones (Negative) Urine Blood (Negative) Urine Nitrite (Negative) Urine Bilirubin (Negative) Urine Urobilinogen (Negative) Ur Leukocyte Esterase (Negative) Urine WBC (Auto) (0-5) /hpf Urine RBC (Auto) (0-2) /hpf U Hyaline Cast (Auto) (0-2) /lpf U Epithel Cells (Auto) (0-2) /hpf Urine Bacteria (Auto) (None Seen) Calcium Oxalate Crystal (None Prsent) Amorphous Sediment (None Prsent) Urine Mucus (None Prsent) Urine Yeast (None Prsent) Urine Comment Adenovirus (PCR) (NotDetected) B. pertussis DNA (PCR) (NotDetected) B.parapertussis DNA PCR (NotDetected) C. pneumoniae DNA (PCR) (NotDetected) Coronavirus OC43 (PCR) (NotDetected) Coronavirus HKU1 (PCR) (NotDetected) Coronavirus 229E (PCR) (NotDetected) SARS-CoV-2 (PCR) (NotDetected) Coronavirus NL63 (PCR) (NotDetected) Human Metapneumovir PCR (NotDetected) Influenza Type A (PCR) (NotDetected) Influenza Type B (PCR) (NotDetected) M. pneumoniae (PCR) (NotDetected) Parainfluenza 1 (PCR) (NotDetected) Parainfluenza 2 (PCR) (NotDetected) Parainfluenza 3 (PCR) (NotDetected) Parainfluenza 4 (PCR) (NotDetected) RSV (PCR) (NotDetected) Entero/Rhino (PCR) (NotDetected) Administered Medications Discontinued Medications Sodium Chloride (Nss) 500 mls @ 999 mls/hr IV .Q31M ONE Stop: 03/21/25 04:20 Last Infusion: 03/21/25 06:00 Dose: Infused Documented By: Admin: 03/21/25 05:17 Dose: 999 mls/hr Documented By: BEENA Piperacillin Sod/Tazobactam Sod (Zosyn) 4.5 gm in 100 mls @ 200 mls/hr IV NOW ONE; Protocol Stop: 03/21/25 05:44 Last Admin: 03/21/25 06:36 Dose: 200 mls/hr Documented By: LIAM Ioversol (Optiray 320 100ml) 100 ml IV ONCE ONE Stop: 03/21/25 05:39 Last Admin: 03/21/25 05:38 Dose: 93 ml Documented By: LUDMILA Imaging Data Radiologist's Impression: Abdomen/Pelvis CT 03/21/25 03:49 EXAM: CT abd pelvis IV con only CLINICAL HISTORY: lower abd to pelvic pain, decub, uti TECHNIQUE: Contiguous axial images were obtained from the level of the diaphragm to the pubic symphysis with intravenous contrast. Coronal and sagittal reconstructions were likewise performed and indicated to increase the sensitivity for detecting clinically relevant pathology. If IV contrast material had not been administered, the likelihood of detecting abnormalities relevant to the patient's condition would have been substantially decreased. CT scan was performed according to ALARA (as low as reasonable achievable). COMPARISON: 04:08:00 SENIOR COMMISSARY AGENT FINDINGS: Few atelectatic bands are noted involving bilateral lung bases. The liver is normal in size and attenuation. No focal liver lesions are seen. There is no intra or extrahepatic biliary ductal dilatation. Hepatic vasculature is patent. Status post-cholecystectomy. The spleen, pancreas, and adrenal glands are unremarkable. The kidneys are normal in size and attenuation. There is no hydronephrosis or perinephric fat stranding. Right kidneys are 1-2 mm sized concretion in upper calyx. Left kidney shows 8 mm and 12 mm in upper calyx and 5 mm in lower calyx. The ureters are normal in caliber and no ureteral calculi are seen. The bladder is normal in contour. Pelvic viscera are unremarkable. No focal or diffuse bowel wall thickening or evidence of bowel obstruction is identified. No evidence of inflamed appendix. Abdominal and pelvic vasculature is patent. No adenopathy or fluid collections are seen. No aggressive appearing osseous lesions are identified. Evidence of sacral decubitus ulcer with focal soft tissue defect and erosion of distal sacrum and coccyx is seen. Colonic fecal and gaseous distension IMPRESSION: 1. Evidence of sacral decubitus ulcer with focal soft tissue defect and erosion of distal sacrum and coccyx is seen.-stable. 2. Bilateral non-obstructing renal calculi. 3. Colonic fecal and gaseous distension- possibility of constipation 4. No other new interval abnormality since prior study. Electronically signed by Justin Melgar 03-21-2025 06:24 AM Chest X-Ray 03/21/25 03:53 EXAM: XR chest 1V portable CLINICAL HISTORY: weak, chills TECHNIQUE: An X-ray image of the chest is obtained in AP projection. COMPARISON: 10/06/2024. FINDINGS: Pulmonary Parenchyma: Lungs are clear bilaterally. No evidence of consolidation, collapse, or focal opacities. Stable prominent bilateral parahilar markings. No evidence of pleural effusion or pleural thickening. Heart and Mediastinum: Heart size and shape are normal. No mediastinal widening or masses. No hilar or mediastinal lymphadenopathy. Bony Thorax: Bony thorax appears intact without fractures or deformities. Soft Tissues: Soft tissues overlying the chest wall are unremarkable. IMPRESSION: 1. No evidence of consolidation or pleural effusion. 2. No interval changes. Electronically signed by Luke Dunne 03-21-2025 05:33 AM Discharge Plan Visit Data Chief Complaint: Urinary Symptoms Stated Complaint: Urinary Symptoms ED Provider: Cooper Grande Discharge Problem: Complicated urinary tract infection, Suprapubic catheter, 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, Sacral wound, Open wound of left foot Patient Disposition: Being Evaluated by Hospitalist Condition: Fair Forms Stand Alone Forms: [facility] Prescriptions Prescriptions: No Action gabapentin 100 mg capsule 200 mg PO AMHS melatonin 3 mg capsule 3 mg PO HS Multivitamin W/Vitamin C Tablet,Chewable 1 tab PO DAILY acetaminophen 325 mg Tablet 650 mg PO Q6 PRN (Reason: Fever Or Pain) Rx Instructions: use for mild pain or fever >38c (100.5f) ondansetron 4 mg tablet,disintegrating 4 mg translingual Q6 PRN (Reason: Nausea) albuterol sulfate 2.5 mg /3 mL (0.083 %) Solution For Nebulization 2.5 mg INHALATION Q4H PRN (Reason: Shortness Of Breath Or Wheezing) oxybutynin chloride 10 mg tablet extended release 24hr 10 mg PO QAM sennosides-docusate sodium [Senexon-S] 8.6-50 mg tablet 2 tab PO HS Rx Instructions: hold for loost stool nortriptyline 25 mg capsule 25 mg PO HS bisacodyl 10 mg suppository 10 mg DE BID Rx Instructions: hold for loose stool lidocaine 5 % adhesive patch,medicated 1 patch topical DAILY PRN (Reason: Pain) docusate sodium 100 mg capsule 100 mg PO BID PRN (Reason: Constipation) hydroxyzine HCl 25 mg tablet 25 mg PO DAILY PRN (Reason: Anxiety) ferrous sulfate 325 mg (65 mg iron) tablet,delayed release (DR/EC) 325 mg PO QDB midodrine 10 mg tablet 10 mg PO TID PRN (Reason: Hypotension) Rx Instructions: PRN SBP< 90 lactulose 10 gram/15 mL solution 20 g PO TID PRN (Reason: Constipation) budesonide-formoterol 160-4.5 mcg/actuation HFA aerosol inhaler 2 puff INHALATION BID Spiriva Respimat 2.5 mcg/actuation mist 2 puff INHALATION QAM Eliquis 5 mg tablet 5 mg PO AMHS ascorbic acid (vitamin C) [Vitamin C] 500 mg tablet 500 mg PO DAILY baclofen 10 mg tablet 20 mg PO TID PRN (Reason: muscle spasms) pantoprazole 40 mg tablet,delayed release (DR/EC) 40 mg DAILY Referrals Referrals: Chay Aguilar, [Primary Care Provider] -
[2025-03-21 05:02] LABS: Appearance Urine Turbid (Clear); Bacteria Urine Automated 2+ (None Seen); Cast Urine Automated >20 /lpf (0-2); Epithelial Cell Urine Auto 0-2 /hpf (0-2); Glucose Urine UA Negative (Negative); RBC Urine Automated >20 /hpf (0-2); WBC Urine Automated >50 /hpf (0-5)
[2025-03-21] MEDS: SODIUM CHLORIDE 0.9% 500 ML IV ONE (05:17)
[2025-03-21 05:21] LABS: Hematocrit (blood only) 34.4 % (42.0-52.0); Hemoglobin 10.4 g/dl (14.0-18.0); Immature Granulocytes # (auto) 0.03 K/uL (0.01-0.20); Immature Granulocytes % (auto) 0.4 %; Mean Corpuscular Hemoglobin 23.5 pg (25.0-34.0); Mean Corpuscular Volume 77.8 fL (80.0-100.0); Platelet Count 259 K/uL (130-400); RDW Standard Deviation 47.7 fL (36.4-46.3); Red Blood Count 4.42 M/uL (4.70-6.10); White Blood Count 7.62 K/ul (4.8-10.8)
--- NOTE | 2025-03-21 05:34 | XRay Report ---
EXAM: XR chest 1V portable CLINICAL HISTORY: weak, chills TECHNIQUE: An X-ray image of the chest is obtained in AP projection. COMPARISON: 10/06/2024. FINDINGS: Pulmonary Parenchyma: Lungs are clear bilaterally. No evidence of consolidation, collapse, or focal opacities. Stable prominent bilateral parahilar markings. No evidence of pleural effusion or pleural thickening. Heart and Mediastinum: Heart size and shape are normal. No mediastinal widening or masses. No hilar or mediastinal lymphadenopathy. Bony Thorax: Bony thorax appears intact without fractures or deformities. Soft Tissues: Soft tissues overlying the chest wall are unremarkable. IMPRESSION: 1. No evidence of consolidation or pleural effusion. 2. No interval changes. Electronically signed by Luke Dunne 03-21-2025 05:33 AM
[2025-03-21] MEDS: OPTIRAY 320 100ml IV ONE (05:38)
[2025-03-21 05:39] LABS: Alanine Aminotransferase 8.0 U/L (7-52); Albumin Globulin Ratio 1.2 (0.9-2); Alkaline Phosphatase 135.0 U/L (34-104); Anion Gap 6.0 (3-11); Bilirubin,Total 0.3 mg/dl (0.2-1.0); Blood Urea Nitrogen 8.0 mg/dl (6-23); Calcium 9.0 mg/dl (8.6-10.3); Carbon Dioxide 29.0 mmol/L (21-32); Chloride 105.0 mmol/L (98-107); Creatinine Clr Calc Pharmacy 214.2 ml/min; Globulin 2.8 gm/dl (2.5-4.0); Glucose 124.0 mg/dl (70-99(Fasting)); Lipase 18.0 U/L (11-82); Potassium 3.2 mmol/L (3.5-5.1); Sodium 140.0 mmol/L (136-145); Total Protein 6.2 gm/dl (6.0-8.3)
[2025-03-21 05:57] LABS: INR 1.0 (0.9-1.1); Prothrombin Time 10.8 Seconds (9.0-12.0)
[2025-03-21 06:07] LABS: Chlamydia pneumoniae PCR Not Detected (NotDetected); Coronavirus 229E PCR Not Detected (NotDetected); Coronavirus CoV-2 (COVID19)PCR Not Detected (NotDetected); Coronavirus HKU1 PCR Not Detected (NotDetected); Coronavirus NL63 PCR Not Detected (NotDetected); Coronavirus OC43PCR Not Detected (NotDetected); Human Metapneumovirus PCR Not Detected (NotDetected); Parainfluenza Virus 1 PCR Not Detected (NotDetected); Parainfluenza Virus 2 PCR Not Detected (NotDetected); Parainfluenza Virus 3 PCR Not Detected (NotDetected); Parainfluenza Virus 4 PCR Not Detected (NotDetected); Respiratory Syncytial VirusPCR Not Detected (NotDetected); Rhinovirus/Enterovirus PCR Not Detected (NotDetected)
--- NOTE | 2025-03-21 06:24 | CT Scan Report ---
EXAM: CT abd pelvis IV con only CLINICAL HISTORY: lower abd to pelvic pain, decub, uti TECHNIQUE: Contiguous axial images were obtained from the level of the diaphragm to the pubic symphysis with intravenous contrast. Coronal and sagittal reconstructions were likewise performed and indicated to increase the sensitivity for detecting clinically relevant pathology. If IV contrast material had not been administered, the likelihood of detecting abnormalities relevant to the patient's condition would have been substantially decreased. CT scan was performed according to ALARA (as low as reasonable achievable). 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 The liver is normal in size and attenuation. No focal liver lesions are seen. There is no intra or extrahepatic biliary ductal dilatation. Hepatic vasculature is patent. Status post-cholecystectomy. The spleen, pancreas, and adrenal glands are unremarkable. The kidneys are normal in size and attenuation. There is no hydronephrosis or perinephric fat stranding. Right kidneys are 1-2 mm sized concretion in upper calyx. Left kidney shows 8 mm and 12 mm in upper calyx and 5 mm in lower calyx. The ureters are normal in caliber and no ureteral calculi are seen. The bladder is normal in contour. Pelvic viscera are unremarkable. No focal or diffuse bowel wall thickening or evidence of bowel obstruction is identified. No evidence of inflamed appendix. Abdominal and pelvic vasculature is patent. No adenopathy or fluid collections are seen. No aggressive appearing osseous lesions are identified. Evidence of sacral decubitus ulcer with focal soft tissue defect and erosion of distal sacrum and coccyx is seen. Colonic fecal and gaseous distension IMPRESSION: 1. Evidence of sacral decubitus ulcer with focal soft tissue defect and erosion of distal sacrum and coccyx is seen.-stable. 2. Bilateral non-obstructing renal calculi. 3. Colonic fecal and gaseous distension- possibility of constipation 4. No other new interval abnormality since prior study. Electronically signed by Justin Melgar 03-21-2025 06:24 AM
[2025-03-21] MEDS: PIPERACILLIN/TAZOBACTAM 4.5 GM/100 ML BAG IV ONE (06:36)
[2025-03-21] MEDS: ONDANSETRON INJ 2 MG/ML 2 ML VIAL IV STA (07:11)
[2025-03-21] MEDS: KETOROLAC TROMETHAMINE 15 MG/ML VIAL IV ONE (07:14)
[2025-03-21] MEDS ORDERED: VANCOMYCIN CONSULT ACTIVE PRN (07:15)
--- NOTE | 2025-03-21 07:54 | History & Physical Report ---
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: (11) History of pulmonary embolism: (12) COPD (chronic obstructive pulmonary disease): (13) GERD (gastroesophageal reflux disease): (14) Seizure disorder: Plan 49 year old male with PMH significant for paraplegia, autonomic dysreflexia, neurogenic bladder with suprapubic cath, history of PE on anticoagulation, chronic sacral ulcer with history of osteomyelitis and cellulitis and multiple debridements, history of complicated UTI, history of septic shock, anxiety disorder, COPD, history of polysubstance abuse, chronic pain, seizure disorder, history of leaving AMA who presented to the ED on 03/21/2025 with weakness, chills, nausea without vomiting x5 days and is admitted for complicated UTI. Complicated UTI Suprapubic catheter Patient does not meet criteria for sepsis at this time with no fevers, leukocytosis, tachycardia, tachypnea, negative lactate and procalcitonin UA +nitrite, leuk esterase, WBC, bacteria Given history of EBSL E Coli UTI - ordered IV ertapenem and vancomycin Suprapubic catheter exchanged by nursing staff - purulent drainage noted at insertion site - follow culture Follow urine culture Follow blood cultures Continue oxybutynin Stage IV pressure ulcer of left foot Foot x-ray negative for osteomyelitis Follow wound culture Podiatry consulted: -Offload with waffle boot and pillow -Daily dressing changes per orders -MRI ordered Sacral decubitus ulcer Chronic wound with history of multiple episodes of osteomyelitis and surgical debridement CTAP reveals focal soft tissue defect and erosion of distal sacrum and coccyx - stable WOCN consulted: appreciate wound care recs Turn and reposition q2hr Chronic pain Chronic pain and history of polysubstance abuse Drug screen positive for marijuana only Patient trialed suboxone previously and stopped taking due to constipation side effect Reports severe burning pain all over body Continue baclofen, nortriptyline, pregabalin Breakthrough pain control with tylenol PRN and oxycodone q4hr PRN *Patient threatened to leave AMA due to wanting pain medicine but since rec eiving oxycodone was agreeable to stay* Pain management consulted: appreciate recs Hypokalemia Chronic hypokalemia per chart review K 3.2 on admission Repleted with IV and PO Recheck BMP in am Hypotension Bradycardia Autonomic dysreflexia Chronic hypotension and bradycardia secondary to autonomic dysreflexia in setting of quadriplegia Continue midodrine tid Monitor BPs and HRs closely ana in setting of opioid use for pain Quadriplegia Continue home bowel regimen History of PE Continue Eliquis COPD No s/s of exacerbation CXR with no evidence of consolidation or pleural effusion Continue inhalers Seizure disorder Continue keppra GERD Continue PPI DVT Prophylaxis:on Eliquis Code Status: FULL CODE PCP: Chay Aguilar Disposition: admit to PCU Patient seen in collaboration with Dr Mix. Please see addendum. I spent a total of 75 minutes coordinating, documenting and providing care for this patient excluding time spent in the performance of separately billed services or time spent by another provider/QHP. Admission and Anticipated Discharge Date Admission Date: 03/21/2025 History of Present Illness Chief Complaint: weakness, nausea, low abdominal pain Primary Care Provider: Chay Goins Capp, DO 49 year old male with PMH significant for paraplegia, autonomic dysreflexia, neurogenic bladder with suprapubic cath, history of PE on anticoagulation, chronic sacral ulcer with history of osteomyelitis and cellulitis and multiple debridements, history of complicated UTI, history of septic shock, anxiety disor dawna, COPD, history of polysubstance abuse, chronic pain, seizure disorder, history of leaving AMA who presented to the ED on 03/21/2025 with weakness, chills, nausea without vomiting x5 days. He notes lower abdominal pain and states this is how he typically feels when he has a UTI. He is unsure when his suprapubic catheter was last changed but notes it is supposed to be changed every 30 days. He also reports low blood pressures over the last 5 days with systolic readings in the 70s that increase to 115s after midodrine but then drop again. He reports he has been taking his midodrine 9-10 times per day because of this. He has chronic pain and describes full body burning pain from the neck down. States pain has been really bad the past couple days rating 9/10. He has a chronic sacral wound and a left foot wound since 02/14/2025 per records. His family has been helping him manage his wounds. His brother does the wet to dry packed dressings in his chronic sacral ulcer and his niece was changing the dressing on his left foot wound. He says that there was a black scab covering the left foot wound that fell off yesterday. He denies chest pain and SOB. He admits to smoking 1ppd of cigarettes and daily marijuana use. Denies other substances. He lives at home with his sister currently. Summary of multiple recent hospitalizations per [facility] chart review: * Admitted at [facility] from 11/25-12/05 for sacral osteomyelitis and complicated UTI; underwent surgical debridement of sacrum with tissue culture VRE; planned for SNF for completion IV abx but left AMA * Admitted at [facility] from 12/07-12/21 for recurrence of sacral osteomyelitis and had episode of altered mental status and seizure like activity (EEG negative) -> transfer to [facility] * Admitted at [facility] from 12/21-01/13 underwent surgical debridement of sacrum again; completed course of IV antibiotics for osteomyelitis per ID recs; left AMA after abx completion * Admitted at [facility] from 01/17-01/19 for sacral wound care; no debridement or antibiotics recommended; planned for SNF but left AMA * Admitted at [facility] from 01/22-02/01 for EBSL E coli UTI; completed course of IV ertapenem; addiction medicine consulted: dc gabapentin, start lyrica, start suboxone * No show at addiction medicine follow up appointment on 02/05 * Admitted at [facility] from 02/14-02/21 for left foot wound, hypotension, UTI symptoms; UTI thought to be contamination and no antibiotics recommended per ID; discharged * Admitted at [facility] from 03/03-03/04 for hypotension - noted to be baseline and rec continue home midodrine; sepsis work up unremarkable; discharged * Admitted at [facility] from 03/06-03/08 for syncopal episodes; workup (labs, carotid doppler, echo) unremarkable; rec continue home midodrine; discharged Allergies Allergy/AdvReac Type Severity Reaction Status Date / Time Opioids - Morphine Analogues AdvReac severe Verified 05/17/24 15:46 bradycardia Home Medications Medication Instructions Recorded Confirmed Type albuterol sulfate 2.5 mg/3 mL 0 mg inhalation Q4H PRN Shortness 08/26/24 03/21/25 History (0.083 %) solution for nebulization Of Breath Or Wheezing apixaban 5 mg tablet (Eliquis) 5 mg PO AMHS 08/26/24 03/21/25 History baclofen 10 mg tablet 20 mg PO TID 08/26/24 03/21/25 History bisacodyl 10 mg rectal suppository 10 mg SD BID 08/26/24 03/21/25 History budesonide-formoterol HFA 160 2 puff inhalation BID 08/26/24 03/21/25 History mcg-4.5 mcg/actuation aerosol inhaler docusate sodium 100 mg capsule 100 mg PO BID PRN Constipation 08/26/24 03/21/25 History hydroxyzine HCl 25 mg tablet 25 mg PO DAILY PRN Anxiety 08/26/24 03/21/25 History lactulose 10 gram/15 mL oral 20 g PO TID 08/26/24 03/21/25 History solution midodrine 10 mg tablet 10 mg PO TID PRN Hypotension 08/26/24 03/21/25 History nortriptyline 25 mg capsule 25 mg PO HS 08/26/24 03/21/25 History oxybutynin chloride 10 mg 10 mg PO QAM 08/26/24 03/21/25 History tablet,extended release 24 hr pantoprazole 40 mg tablet,delayed 40 mg DAILY 08/26/24 03/21/25 History release sennosides 8.6 mg-docusate sodium 2 tab PO HS 08/26/24 03/21/25 History 50 mg tablet (Senexon-S) tiotropium bromide 2.5 2 puff inhalation QAM 08/26/24 03/21/25 History mcg/actuation mist for inhalation (Spiriva Respimat) acetaminophen 325 mg tablet 650 mg PO Q6 PRN Fever Or Pain 09/30/24 03/21/25 History melatonin 3 mg capsule 3 mg PO HS 09/30/24 03/21/25 History ondansetron 4 mg disintegrating 4 mg translingual Q6 PRN Nausea 09/30/24 03/21/25 History tablet albuterol sulfate 0.63 mg/3 mL 0.63 mg inhalation UD PRN SOB 03/21/25 03/21/25 History solution for nebulization apixaban 5 mg tablet (Eliquis) 5 mg PO BID 03/21/25 03/21/25 History levetiracetam 1,000 mg tablet 1,000 mg PO BID 03/21/25 03/21/25 History pregabalin 50 mg capsule 50 mg PO BID 03/21/25 03/21/25 History simethicone 80 mg chewable tablet 80 mg PO TID 03/21/25 03/21/25 History Past Med/Surg History Problem List (Updated 03/21/25 @ 14:45 by CHRISTINA Alvarez) Seizure disorder GERD (gastroesophageal reflux disease) COPD (chronic obstructive pulmonary disease) Bradycardia Pressure ulcer of left foot, stage 4 Stage IV pressure ulcer Hypokalemia (Acute) Quadriplegia (Acute) Hypotension (Acute) Autonomic dysreflexia Sacral decubitus ulcer (Acute) Complicated urinary tract infection (Acute Unknown) History of pulmonary embolism Chronic pain (Acute) Suprapubic catheter (Acute) Medical History (Updated 03/21/25 @ 14:45 by CHRISTINA Alvarez) Open wound of left foot Chronic osteomyelitis of sacrum Sacral decubitus ulcer, stage IV Complicated UTI (urinary tract infection) RSV (respiratory syncytial virus infection) Hypoxia Leg wound, left Leg wound, right 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 Hypoxic respiratory failure 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 Severe sepsis Chest pain Acute hypoxemic respiratory failure Change or removal of nonsurgical wound dressing Pneumonia Encephalopathy Hypotension Acute UTI Sacral wound Quadriplegia Anemia Hypomagnesemia Hypokalemia Complication, blocked suprapubic catheter Leukocytosis Acute urinary retention Hydronephrosis Constipation Abdominal pain Left sided abdominal pain Cough Pneumonia Abnormal chest CT Elevated hemidiaphragm Pneumonia involving right lung Soft tissue infection Suprapubic catheter dysfunction Aspiration pneumonia Bacteremia Acute hypotension Acute hypokalemia Abdominal pain Hypoxic respiratory failure Sepsis Acute UTI Acute UTI Abdominal pain Aspiration pneumonitis Pneumonia Paraplegia Surgical History No pertinent past surgical history Social History (Updated 03/21/25 @ 13:02 by CHRISTINA Alvarez) Smoking Status: Never smoker Tobacco Type: Cigarettes Cigarettes Per Day: 1ppd; Second Hand Exposure: Yes; Do You Dip or Chew Tobacco: No; Hx Alcohol Use: No Hx Substance Use: Yes Non-Prescribed Medications: Crack / Cocaine and Marijuana Preferred Language: [place] Communication Ability: Effective Communication Ability Comment: difficulty writing 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: No Beliefs That Will Affect Care: None Current Living Situation: Family Current Living Situation Comment: lives home with sister Feels Safe at Home: Yes Assistive Devices: Nebulizer, Wheelchair and Other Review of Systems Review of Systems: All systems reviewed & are unremarkable except as noted in HPI & below Physical Exam Physical Exam: General/Psych: WD/WN, laying in bed, appears uncomfortable Head: normocephalic, atraumatic Eyes: normal inspection, PERRL, conjunctivae pink ENT: external ear and nose normal, oropharynx normal Neck: normal visual inspection, trachea midline Respiratory: normal respiratory effort, lungs clear to auscultation, no wheeze/rales/rhonchi, no accessory muscle use Cardiovascular: regular rate and rhythm, no murmur/rub/gallop, no JVD Extremities: no cyanosis or clubbing, normal peripheral pulses, no BLE edema Abdomen/GI: normal bowel sounds, soft, tender on palpation Neurologic/MSK: A+Ox3, paraplegia - able to move BUE Skin: no rashes, normal color, warm and dry; sacral pressure ulcer with wet to dry packed dressing without drainage or surrounding erythema; open wound to left lateral foot with serosanguinous drainage without surrounding erythema; small abrasion to right chest Results & Data Results & Data Vital Signs (Past 12 Hours) Vital Signs Temp Pulse Pulse Resp BP BP Pulse Ox 03/21/25 07:46 91 03/21/25 07:45 89 L 03/21/25 07:28 37.0 C 58 L 16 113/77 94 03/21/25 07:00 47 L 17 110/62 91 03/21/25 06:22 99 03/21/25 06:20 76 L 03/21/25 06:00 59 L 16 115/78 94 03/21/25 05:16 68 20 105/72 99 03/21/25 05:00 61 18 105/72 97 03/21/25 04:27 56 L 18 105/72 95 03/21/25 04:00 60 19 112/77 95 03/21/25 03:39 66 22 109/76 95 03/21/25 03:38 60 03/21/25 03:16 37.7 C H 65 18 109/76 95 O2 Del Method O2 Flow Rate 03/21/25 07:46 Nasal Cannula 2 03/21/25 07:45 Room Air 03/21/25 07:28 Room Air 03/21/25 07:00 Room Air 03/21/25 06:22 Oxymask 3 03/21/25 06:20 Room Air 03/21/25 06:00 Room Air 03/21/25 05:16 Room Air 03/21/25 05:00 Room Air 03/21/25 04:27 Room Air 03/21/25 04:00 Room Air 03/21/25 03:39 Room Air 03/21/25 03:38 03/21/25 03:16 Room Air Laboratory Results Short CBC 03/21/25 Range/Units 04:37 WBC 7.62 (4.8-10.8) K/ul Hgb 10.4 L (14.0-18.0) g/dl Hct 34.4 L (42.0-52.0) % Plt Count 259 (130-400) K/uL BMP 03/21/25 04:37 Sodium 140 Potassium 3.2 L Chloride 105 Carbon Dioxide 29 BUN 8 Creatinine 0.47 L Glucose 124 H Calcium 9.0 Liver Function 03/21/25 Range/Units 04:37 Total Bilirubin 0.3 (0.2-1.0) mg/dl AST 15 (13-39) U/L ALT 8 (7-52) U/L Alkaline Phosphatase 135 H (34-104) U/L Albumin 3.4 (3.4-5.0) gm/dl Urine 03/21/25 Range/Units 04:08 Urine Color Yellow Urine Appearance Turbid A (Clear) Urine pH 6.5 (4.5-7.5) Ur Specific [place] 1.019 (1.000-1.030) Urine Protein 1+ H (Negative) Urine Glucose (UA) Negative (Negative) I have independently reviewed and interpreted patient's admitting labs including CBC, CMP, PTT, PT/INR, lactate, troponin, procalcitonin Diagnostic Findings Abdomen/Pelvis CT 03/21/25 03:49 EXAM: CT abd pelvis IV con only CLINICAL HISTORY: lower abd to pelvic pain, decub, uti TECHNIQUE: Contiguous axial images were obtained from the level of the diaphragm to the pubic symphysis with intravenous contrast. Coronal and sagittal reconstructions were likewise performed and indicated to increase the sensitivity for detecting clinically relevant pathology. If IV contrast material had not been administered, the likelihood of detecting abnormalities relevant to the patient's condition would have been substantially decreased. CT scan was performed according to ALARA (as low as reasonable achievable). 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 The liver is normal in size and attenuation. No focal liver lesions are seen. There is no intra or extrahepatic biliary ductal dilatation. Hepatic vasculature is patent. Status post-cholecystectomy. The spleen, pancreas, and adrenal glands are unremarkable. The kidneys are normal in size and attenuation. There is no hydronephrosis or perinephric fat stranding. Right kidneys are 1-2 mm sized concretion in upper calyx. Left kidney shows 8 mm and 12 mm in upper calyx and 5 mm in lower calyx. The ureters are normal in caliber and no ureteral calculi are seen. The bladder is normal in contour. Pelvic viscera are unremarkable. No focal or diffuse bowel wall thickening or evidence of bowel obstruction is identified. No evidence of inflamed appendix. Abdominal and pelvic vasculature is patent. No adenopathy or fluid collections are seen. No aggressive appearing osseous lesions are identified. Evidence of sacral decubitus ulcer with focal soft tissue defect and erosion of distal sacrum and coccyx is seen. Colonic fecal and gaseous distension IMPRESSION: 1. Evidence of sacral decubitus ulcer with focal soft tissue defect and erosion of distal sacrum and coccyx is seen.-stable. 2. Bilateral non-obstructing renal calculi. 3. Colonic fecal and gaseous distension- possibility of constipation 4. No other new interval abnormality since prior study. Electronically signed by Justin Melgar 03-21-2025 06:24 AM Chest X-Ray 03/21/25 03:53 EXAM: XR chest 1V portable CLINICAL HISTORY: weak, chills TECHNIQUE: An X-ray image of the chest is obtained in AP projection. COMPARISON: 10/06/2024. FINDINGS: Pulmonary Parenchyma: Lungs are clear bilaterally. No evidence of consolidation, collapse, or focal opacities. Stable prominent bilateral parahilar markings. No evidence of pleural effusion or pleural thickening. Heart and Mediastinum: Heart size and shape are normal. No mediastinal widening or masses. No hilar or mediastinal lymphadenopathy. Bony Thorax: Bony thorax appears intact without fractures or deformities. Soft Tissues: Soft tissues overlying the chest wall are unremarkable. IMPRESSION: 1. No evidence of consolidation or pleural effusion. 2. No interval changes. Electronically signed by Luke Dunne 03-21-2025 05:33 AM Foot X-Ray 03/21/25 09:48 XR foot LT min 3V routine CLINICAL HISTORY: wound eval osteomyelitis COMPARISON: None FINDINGS: The bones are osteopenic. No acute fractures are visualized. No destructive lesions are visualized on conventional radiographic imaging. There is no gas within soft tissues. IMPRESSION: 1. Osteopenia 2. No acute fractures 2. No conventional radiographic evidence of acute osteolysis ACT 112: Negative or not required by law. Electronically signed by: Luisito Cotto M.D. 03/21/2025 10:31 AM ECG Additional Comments: I have independently reviewed and interpreted patient's admitting EKG which revealed: NSR at a rate of 61 bpm Code Status & VTE Plan Code Status Full Code Supervising Physician Co-Signing Physician Notes Pt seen and examined by me, care coordinated w/ CHRISTINA Alex, pls refer to her note for further detail. Pt seen in ED room with Karol. Chart reviewed in detail and previous hospitalizations as above. Pt reports lower abdominal pain and "burning pain all over". Reports this is typical for his UTI. Reports he was seen in [facility] over the weekend and was started on ciprofloxacin however his symptoms were getting worse so presented here. Pt has been more recently seen extensively in [facility] for multiple hospitalizations and required transfer to [place] as well, as above. Denies fever, chills, chest pain or shortness of breath. Has known sacral wound and left foot wound as well. Pt is awake alert, answers simple questions appropriately. lungs CTAB, breathing comfortably on RA. Regular heart sounds. abdomen soft, tender in lower quadrants, + suprapubic catheter. Back - sacral pressure ulcer with wet to dry packed dressing without drainage or surrounding erythema. Left foot - small open wound to left lateral foot. UEs contractures but able to move. not moving LEs. UA c/w UTI. Urine cultx pending. Suprapubic catheter will need to be exchanged. In the ED- CXR obtained, and CT abd/pelvis. He was given zosyn. Given previous cultures - will switch for now to ertapenem and will add vancomycin. Will follow cultures and will likely need to consult with ID prior to discharge. Obtain XR of left foot and consult podiatry. Wound care consult for sacral wound. MD Maria Del Rosario (4) Sacral decubitus ulcer Pressure injury stage: stage 4 Qualified Code(s): L89.154 - Pressure ulcer of sacral region, stage 4 (5) Chronic pain Chronic pain type: due to trauma Qualified Code(s): G89.21 - Chronic pain due to trauma (7) Hypotension Hypotension type: unspecified hypotension type Qualified Code(s): I95.9 - Hypotension, unspecified
[2025-03-21] MEDS: ERTAPENEM 1000MG 1,000 MG/10 ML SYR IV ONE (09:06)
[2025-03-21] MEDS: ACETAMINOPHEN 1,000 MG/100 ML VIAL IV STA (09:06)
[2025-03-21 09:12] LABS: Amphetamines+Metham, Urine Neg (Neg); MDMA (Ecstacy), Urine Neg (Neg); Marijuana, Urine Pos (Neg)
[2025-03-21] MEDS: VANCOMYCIN HCL 1,750 MG in SODIUM CHLORIDE 0.9% 500 ML IV ONE (09:33)
--- NOTE | 2025-03-21 10:32 | XRay Report ---
XR foot LT min 3V routine CLINICAL HISTORY: wound eval osteomyelitis COMPARISON: None FINDINGS: The bones are osteopenic. No acute fractures are visualized. No destructive lesions are vi sualized on conventional radiographic imaging. There is no gas within soft tissues. IMPRESSION: 1. Osteopenia 2. No acute fractures 2. No conventional radiographic evidence of acute osteolysis ACT 112: Negative or not required by law. Electronically signed by: Luisito Cotto M.D. 03/21/2025 10:31 AM
[2025-03-21] MEDS: POTASSIUM CHLORIDE CRTAB 20 MEQ TABCR PO STA ×2 (10:33→13:35)
[2025-03-21] MEDS ORDERED: ACETAMINOPHEN 1,000 MG/100 ML VIAL IV PRN (10:47)
[2025-03-21] MEDS ORDERED: DOCUSATE SODIUM 100 MG CAP PO PRN (10:47)
[2025-03-21] MEDS ORDERED: MIDODRINE HCL 10 MG TAB PO PRN (10:47)
--- NOTE | 2025-03-21 10:55 | Electrocardiogram Report ---
Test Reason : Blood Pressure : */* mmHG Vent. Rate : 61 BPM Atrial Rate : 61 BPM P-R Int : 198 ms QRS Dur : 82 ms QT Int : 412 ms P-R-T Axes : -19 -13 -9 degrees QTcB Int : 414 ms Normal sinus rhythm Inferior infarct , age undetermined Abnormal ECG When compared with ECG of 06-Oct-2024 07:56, Inferior infarct is now Present T wave inversion no longer evident in Anterior leads Confirmed by Toi Wright ([id number]) on 03/21/2025 10:55:01 AM Referred By: REFERRED SELF Confirmed By: Toi Wright
[2025-03-21] MEDS: POTASSIUM CHLORIDE / WTR 10 MEQ/100 ML PLCT IV SCH (10:59)
[2025-03-21] MEDS: OXYBUTYNIN CHLORIDE XL 5 MG TABCR PO SCH (11:31)
[2025-03-21] MEDS: PREGABALIN 50 MG CAP PO ONE (11:31)
[2025-03-21] MEDS: BACLOFEN 20 MG TAB PO SCH (11:32)
--- NOTE | 2025-03-21 12:41 | Podiatry Consultation ---
Date of Consultation March 21, 2025 Assessment & Plan (1) Stage IV pressure ulcer: Pressure injury location: foot, unspecified location Laterality: left Qualified Code(s): L89.894 - Pressure ulcer of other site, stage 4 (2) Open wound of left foot: Encounter type: initial encounter Qualified Code(s): S91.302A - Unspecified open wound, left foot, initial encounter Plan Stage 4 pressure ulcer left lateral foot. - Left foot culture pending. - Offload area of ulceration with waffle boot and pillow behind the left ankle. - Dressing change to the left foot once daily with Aquacel Ag and optifoam dressing. Dressing orders placed. - X-ray left foot results reviewed without signs of osteomyelitis. - MRI ordered to further evaluate left 5th metatarsal for signs of osteomyelitis. Thank you for consulting podiatry to aid in the care of this patient. Will suzanna elizabeth to follow his progress for IV remains in the hospital and recommend close follow-up in the wound care center following discharge. History of Present Illness Reason for Consultation: Left foot wound Attending Physician: Axel Mix MD History of Present Illness 49-year-old male past medical history significant for paraplegia, history of PE on anticoagulation, ongoing chronic sacral ulceration with history of osteomyelitis with need for multiple debridements, UTI, septic shock, anxiety, COPD, substance abuse, chronic pain, seizure disorder. Presents to [facility] emergency department 03/21/2025 with increased weakness, chills, nausea for approximately 5 days. Admitted to the hospital given failure of outpatient management of UTI with fluoroquinolones. Podiatry consulted to evaluate open wound to the lateral aspect of the left foot with concern for exposed bone to the wound bed. Patient reports presence of ulceration of the left foot for the past month which initially was covered with a dry stable eschar. Eschar became loose with some drainage over the past week and eventually fell off. Denies pain to the wound. Wound culture left foot was collected by patient's nurse and sent for culture and sensitivity. No leukocytosis. Procalcitonin within normal limits. Empiric antibiotic coverage initiated with IV vancomycin and Zosyn in the emergency department. Allergies Allergy/AdvReac Type Severity Reaction Status Date / Time Opioids - Morphine Analogues AdvReac severe Verified 05/17/24 15:46 bradycardia Home Medications Medication Instructions Recorded Confirmed Type albuterol sulfate 2.5 mg/3 mL 0 mg inhalation Q4H PRN Shortness 08/26/24 03/21/25 History (0.083 %) solution for nebulization Of Breath Or Wheezing apixaban 5 mg tablet (Eliquis) 5 mg PO AMHS 08/26/24 03/21/25 History baclofen 10 mg tablet 20 mg PO TID 08/26/24 03/21/25 History bisacodyl 10 mg rectal suppository 10 mg MS BID 08/26/24 03/21/25 History budesonide-formoterol HFA 160 2 puff inhalation BID 08/26/24 03/21/25 History mcg-4.5 mcg/actuation aerosol inhaler docusate sodium 100 mg capsule 100 mg PO BID PRN Constipation 08/26/24 03/21/25 History hydroxyzine HCl 25 mg tablet 25 mg PO DAILY PRN Anxiety 08/26/24 03/21/25 History lactulose 10 gram/15 mL oral 20 g PO TID 08/26/24 03/21/25 History solution midodrine 10 mg tablet 10 mg PO TID PRN Hypotension 08/26/24 03/21/25 History nortriptyline 25 mg capsule 25 mg PO HS 08/26/24 03/21/25 History oxybutynin chloride 10 mg 10 mg PO QAM 08/26/24 03/21/25 History tablet,extended release 24 hr pantoprazole 40 mg tablet,delayed 40 mg DAILY 08/26/24 03/21/25 History release sennosides 8.6 mg-docusate sodium 2 tab PO HS 08/26/24 03/21/25 History 50 mg tablet (Senexon-S) tiotropium bromide 2.5 2 puff inhalation QAM 08/26/24 03/21/25 History mcg/actuation mist for inhalation (Spiriva Respimat) acetaminophen 325 mg tablet 650 mg PO Q6 PRN Fever Or Pain 09/30/24 03/21/25 History melatonin 3 mg capsule 3 mg PO HS 09/30/24 03/21/25 History ondansetron 4 mg disintegrating 4 mg translingual Q6 PRN Nausea 09/30/24 03/21/25 History tablet albuterol sulfate 0.63 mg/3 mL 0.63 mg inhalation UD PRN SOB 03/21/25 03/21/25 History solution for nebulization apixaban 5 mg tablet (Eliquis) 5 mg PO BID 03/21/25 03/21/25 History levetiracetam 1,000 mg tablet 1,000 mg PO BID 03/21/25 03/21/25 History pregabalin 50 mg capsule 50 mg PO BID 03/21/25 03/21/25 History simethicone 80 mg chewable tablet 80 mg PO TID 03/21/25 03/21/25 History Patient History Medical History (Updated 03/21/25 @ 13:46 by Josh Brady DPM) Chronic osteomyelitis of sacrum Sacral decubitus ulcer, stage IV Complicated UTI (urinary tract infection) RSV (respiratory syncytial virus infection) Hypoxia Leg wound, left Leg wound, right 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 Hypoxic respiratory failure 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 Severe sepsis Chest pain Acute hypoxemic respiratory failure Change or removal of nonsurgical wound dressing Pneumonia Encephalopathy Hypotension Acute UTI Sacral wound Quadriplegia Anemia Hypomagnesemia Hypokalemia Complication, blocked suprapubic catheter Leukocytosis Acute urinary retention Hydronephrosis Constipation Abdominal pain Left sided abdominal pain Cough Pneumonia Abnormal chest CT Elevated hemidiaphragm Pneumonia involving right lung Soft tissue infection Suprapubic catheter dysfunction Aspiration pneumonia Bacteremia Acute hypotension Acute hypokalemia Abdominal pain Hypoxic respiratory failure Sepsis Acute UTI Acute UTI Abdominal pain Aspiration pneumonitis Pneumonia Paraplegia Surgical History No pertinent past surgical history Social History (Updated 03/21/25 @ 13:02 by CHRISTINA Alvarez) Smoking Status: Current every day smoker Tobacco Type: Cigarettes Cigarettes Per Day: 1ppd; Second Hand Exposure: Yes; Do You Dip or Chew Tobacco: No; Hx Alcohol Use: No Hx Substance Use: Yes Non-Prescribed Medications: Crack / Cocaine and Marijuana Preferred Language: [place] Communication Ability: Effective Communication Ability Comment: difficulty writing Cuff Maker Required: No Beliefs That Will Affect Care: None Current Living Situation: Family Current Living Situation Comment: lives home with sister Feels Safe at Home: Yes Assistive Devices: Nebulizer, Wheelchair and Other Review of Systems Review of Systems: Reports increased weakness, nausea and chills over the past 24 hours. No vomiting or diarrhea. Denies shortness of breath or chest pain. Denies pain in the left foot. Physical Exam Physical Exam: Left lower extremity: Left lower extremity is abducted at the level of the hip with the lateral aspect of the foot contacting the mattress which is likely the underlying cause of pressure at the level of the fifth metatarsal head laterally. There is a stage IV pressure ulceration overlying the lateral aspect of the distal third of the fifth metatarsal with exposed bone to the base distally. Area of exposed bone measures 3 mm in diameter with possible thin [place] of periosteal coverage and is firm to palpation with a sterile cotton tip applicator. Minimal immediate periwound erythema without significant edema. No active drainage. No malodor. No lymphangitis or streaking. No pain to palpation of the wound. No crepitus on palpation of the surrounding soft tissues. Pedal pulses are palpable left lower extremity. Results & Data Vital Signs (Past 12 Hours) Vital Signs Temp Pulse Pulse Resp BP BP Pulse Ox 03/21/25 11:16 36.5 C 45 L 20 118/62 96 03/21/25 10:39 03/21/25 09:33 52 L 18 101/57 L 99 03/21/25 08:31 57 L 03/21/25 07:46 91 03/21/25 07:45 89 L 03/21/25 07:28 37.0 C 58 L 16 113/77 93 03/21/25 07:00 47 L 17 110/62 91 03/21/25 06:22 99 03/21/25 06:20 76 L 03/21/25 06:00 59 L 16 115/78 94 03/21/25 05:16 68 20 105/72 99 03/21/25 05:00 61 18 105/72 97 03/21/25 04:27 56 L 18 105/72 95 03/21/25 04:00 60 19 112/77 95 03/21/25 03:39 66 22 109/76 95 03/21/25 03:38 60 03/21/25 03:16 37.7 C H 65 18 109/76 95 O2 Del Method O2 Flow Rate 03/21/25 11:16 Nasal Cannula 2 03/21/25 10:39 Nasal Cannula 2 03/21/25 09:33 Nasal Cannula 2 03/21/25 08:31 03/21/25 07:46 Nasal Cannula 2 03/21/25 07:45 Room Air 03/21/25 07:28 Oxymask 6 03/21/25 07:00 Room Air 03/21/25 06:22 Oxymask 3 03/21/25 06:20 Room Air 03/21/25 06:00 Room Air 03/21/25 05:16 Room Air 03/21/25 05:00 Room Air 03/21/25 04:27 Room Air 03/21/25 04:00 Room Air 03/21/25 03:39 Room Air 03/21/25 03:38 03/21/25 03:16 Room Air Laboratory Results WBC 7.62 Lactate 1.5 Procalcitonin 0.06 Diagnostic Findings Left foot x-ray 03/21/2025: IMPRESSION: 1. Osteopenia 2. No acute fractures 2. No conventional radiographic evidence of acute osteolysis MRI left foot 03/21/2025: Pending PG Care Time/CCT Total # of Minutes Spent Total Time Spent with Patient: Total time spent is greater than 50% in coordination of care (as documented) at patient's floor/unit and/or counseling patient: Coding Level of Care Code 72988 INT INP/OBS CARE 2/55MIN Diagnoses Pressure injury of left foot, stage 4 L89.894 Pressure injury location: foot, unspecified location Laterality: left Open wound of left foot, initial encounter S91.302A Encounter type: initial encounter
[2025-03-21] MEDS: SIMETHICONE 80 MG CHEW PO SCH (13:34)
[2025-03-21] MEDS: LACTULOSE SYRUP 20 GM/30 ML UDC PO SCH (13:35)
--- NOTE | 2025-03-21 15:15 | Pharmacy Report ---
Pharmacy PK ABX Note - Date of Service March 21, 2025 - Assessment and Plan Assessment 49 year old M receiving Vancomycin and Ertapenem for treatment of UTI. Also concern for infected sacral decubitus ulcer and wound on left foot. * Day #1 of antimicrobial therapy. PMHx significant for quadriplegia with neurogenic bladder requiring a suprapubic catheter, frequent UTIs, recent admission for bacteremia. History of pseudomonas and MRSA in past. Recently started on Cipro. * Afebrile. No leukocytosis. Lactate and procal normal. UA concerning for infection. SCr at baseline of ~0.5 mg/dL, this is likely inaccurate due to low muscle mass in quadriplegic patient. * Blood, foot, and urine cultures pending. Plan Vancomycin * Loading dose: 1750 mg IV x 1 * Maintenance dose: 1750 mg IV every 12 hours * Regimen is predicted to achieve target AUC/BEATRIZ of 400-600 mg/L.hr * Random level ordered for: 03/23/25 Ertapenem * 1000 mg IV every 24 hours Pharmacy will continue to follow and will adjust dose/frequency as necessary. Thank you. Pharmacy has transitioned to AUC monitoring for vancomycin. AUC/BEATRIZ is the preferred PK/PD target and is associated with decreased risk of nephrotoxicity compared to traditional trough targets.
[2025-03-21] MEDS: MIDODRINE HCL 10 MG TAB PO SCH (15:38)
[2025-03-21] MEDS ORDERED: Nursing to Pharmacy Communication SCH (18:30)
[2025-03-21] MEDS: NORTRIPTYLINE HCL 25 MG CAP PO SCH (18:30)
[2025-03-21] MEDS: MELATONIN 3 MG TAB PO SCH (21:29)
[2025-03-21] MEDS: DOCUSATE SODIUM/SENNA 50/8.6MG TAB PO SCH (21:29)
[2025-03-21] MEDS: VANCOMYCIN HCL 1,750 MG in SODIUM CHLORIDE 0.9% 500 ML IV SCH (21:29)
[2025-03-21] MEDS: PREGABALIN 50 MG CAP PO SCH (21:29)
[2025-03-21] MEDS: APIXABAN 5 MG TABLET PO SCH (21:30)
[2025-03-21] MEDS: BUDESONIDE/FORMOTEROL FUMARATE 160/4.5 60 PUFFS/INHALER INH SCH (21:30)
[2025-03-21] MEDS: levETIRAcetam 500 MG TAB PO SCH (21:31)
--- NOTE | 2025-03-21 23:02 | Magnetic Resonance Report ---
Exam(s): MRI LEFT FOOT Without Contrast EXAM: MR Left Lower Extremity Without Intravenous Contrast, Foot CLINICAL HISTORY: Reason for exam: Wound with exposed bone 5th metatarsal left. TECHNIQUE: Multiplanar magnetic resonance images of the left foot without intravenous contrast. COMPARISON: Plain films from 03/21/2025 FINDINGS: Bones/joints: There is increased signal on T2 fat sat and STIR involving the distal 1.6 cm of the 5th metatarsal with soft tissue ulceration down within a few mm of the bone. The midfoot alignment is normal. No other areas of abnormal bone marrow signal are identified. No acute fracture or dislocation is seen. Soft tissues: There is subcutaneous edema of the dorsum of the foot and lateral aspect of the distal foot. No abscess is identified. IMPRESSION: 1. There is subcutaneous edema of the dorsum of the foot and lateral aspect of the distal foot. No abscess is identified. 2. There is increased signal on T2 fat sat and STIR involving the distal 1.6 cm of the 5th metatarsal with soft tissue ulceration down within a few mm of the bone. Probable osteomyelitis. Electronically signed by: Cooper Miles MD 03/21/25 23:01 PM
[2025-03-22 07:52] LABS: Hematocrit (blood only) 34.0 % (42.0-52.0); Hemoglobin 9.9 g/dl (14.0-18.0); Mean Corpuscular Hemoglobin 23.6 pg (25.0-34.0); Mean Corpuscular Volume 81.0 fL (80.0-100.0); Platelet Count 202 K/uL (130-400); RDW Standard Deviation 48.5 fL (36.4-46.3); Red Blood Count 4.20 M/uL (4.70-6.10); White Blood Count 4.29 K/ul (4.8-10.8)
--- NOTE | 2025-03-22 07:53 | Pain Management Consultation ---
Date of Consultation March 22, 2025 Assessment & Plan (1) Chronic pain: Chronic pain type: due to trauma Qualified Code(s): G89.21 - Chronic pain due to trauma (2) Spinal cord injury, cervical region: (3) Quadriplegia: (4) Pressure ulcer of left foot, stage 4: (5) Sacral decubitus ulcer: Pressure injury stage: stage 4 Qualified Code(s): L89.154 - Pressure ulcer of sacral region, stage 4 (6) History of illicit drug use: Plan 1. Patient has multifactorial pain complaints associated with his history of cervical spinal cord injury as well as sacral decubitus-chronic and left foot ulceration with suspected osteomyelitis. Complicated ability to provide adequate pain control given his history of spinal cord injury. Patient would be a poor candidate for chronic long-acting opiate therapy in the outpatient setting due to his history of illicit drug use with risk of misuse. Would not recommend chronic use of long-acting opiate therapy in the outpatient setting. 2. Patient is not a candidate for any interventional treatment directed at his pain complaints 3. Recommend maximizing adjuvant therapies-will add duloxetine 60 mg daily 4. Consider escalation of pregabalin dose but would defer to medicine service given concomitant utilization of levetiracetam 5. Could also consider escalation of nortriptyline dose moving forward pending response to above 6. Patient may utilize Oxy IR 10 mg every 4 H for as needed breakthrough pain- dose was adjusted. Monitor response. 7. Patient may consider outpatient evaluation for use of medical marijuana which was discussed at today's visit 8. Pain service will sign off on patient at this time. Thank you for allowing us to participate in the care of Mr. Fried. History of Present Illness Reason for Consultation: Intractable pain Requesting Physician: CHRISTINA Alex Attending Physician: Axel Mix MD History of Present Illness Mr. 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 Patient has been admitted for complicated UTI with a known stage IV pressure ulcer of the left foot with concern for osteomyelitis and known sacral decubitus ulcer. Patient has history of chronic pain primarily associated with the sacral decubitus ulcer where he feels aching and throbbing characteristic pain in the sacral region which can extend into the abdomen and groin. He is further reporting some increased pain in the left foot area recently and some generalized overall burning sensations affecting the "entire body except his head". Patient reports use of illicit marijuana in the outpatient setting with moderate efficacy. He does not possess a medical marijuana card. He denies any recent use of any other illicit drugs. He has previously trialed multiple different opiate therapies with varying degrees of benefit. Patient was most recently trialed on Suboxone but experienced significant constipation and discontinued the medication after 1 week. There is report of morphine analogs causing bradycardia. He remembers experiencing headache from morphine. He has tolerated Oxy IR at 5 mg but reports limited efficacy from use of this medication. He reports hydromorphone typically provides more significant relief of his typical pain. The patient remains on baclofen, Keppra and pregabalin chronically. Patient reports no further constitutional complaints. Plan of care discussed with Dr. Ewing. Pain Assessment Full Body Front + Back: 2 1. Sacral region-chronic 2. Left foot pain recently increased with history of pressure ulcer Pain scale - at its best (0-10): 4 Pain scale - at its worst (0-10): 9 Allergies Allergy/AdvReac Type Severity Reaction Status Date / Time Opioids - Morphine Analogues AdvReac severe Verified 05/17/24 15:46 bradycardia Home Medications Medication Instructions Recorded Confirmed Type albuterol sulfate 2.5 mg/3 mL 0 mg inhalation Q4H PRN Shortness 08/26/24 03/21/25 History (0.083 %) solution for nebulization Of Breath Or Wheezing apixaban 5 mg tablet (Eliquis) 5 mg PO AMHS 08/26/24 03/21/25 History baclofen 10 mg tablet 20 mg PO TID 08/26/24 03/21/25 History bisacodyl 10 mg rectal suppository 10 mg TN BID 08/26/24 03/21/25 History budesonide-formoterol HFA 160 2 puff inhalation BID 08/26/24 03/21/25 History mcg-4.5 mcg/actuation aerosol inhaler docusate sodium 100 mg capsule 100 mg PO BID PRN Constipation 08/26/24 03/21/25 History hydroxyzine HCl 25 mg tablet 25 mg PO DAILY PRN Anxiety 08/26/24 03/21/25 History lactulose 10 gram/15 mL oral 20 g PO TID 08/26/24 03/21/25 History solution midodrine 10 mg tablet 10 mg PO TID PRN Hypotension 08/26/24 03/21/25 History nortriptyline 25 mg capsule 25 mg PO HS 08/26/24 03/21/25 History oxybutynin chloride 10 mg 10 mg PO QAM 08/26/24 03/21/25 History tablet,extended release 24 hr pantoprazole 40 mg tablet,delayed 40 mg DAILY 08/26/24 03/21/25 History release sennosides 8.6 mg-docusate sodium 2 tab PO HS 08/26/24 03/21/25 History 50 mg tablet (Senexon-S) tiotropium bromide 2.5 2 puff inhalation QAM 08/26/24 03/21/25 History mcg/actuation mist for inhalation (Spiriva Respimat) acetaminophen 325 mg tablet 650 mg PO Q6 PRN Fever Or Pain 09/30/24 03/21/25 History melatonin 3 mg capsule 3 mg PO HS 09/30/24 03/21/25 History ondansetron 4 mg disintegrating 4 mg translingual Q6 PRN Nausea 09/30/24 03/21/25 History tablet albuterol sulfate 0.63 mg/3 mL 0.63 mg inhalation UD PRN SOB 03/21/25 03/21/25 History solution for nebulization apixaban 5 mg tablet (Eliquis) 5 mg PO BID 03/21/25 03/21/25 History levetiracetam 1,000 mg tablet 1,000 mg PO BID 03/21/25 03/21/25 History pregabalin 50 mg capsule 50 mg PO BID 03/21/25 03/21/25 History simethicone 80 mg chewable tablet 80 mg PO TID 03/21/25 03/21/25 History Pain History Pain Intensity Pain scale - at its best (0-10): 4 Pain scale - at its worst (0-10): 9 Patient History Medical History (Updated 03/22/25 @ 08:24 by Kenton Ashley PA-C) Open wound of left foot Chronic osteomyelitis of sacrum Sacral decubitus ulcer, stage IV Complicated UTI (urinary tract infection) RSV (respiratory syncytial virus infection) Hypoxia Leg wound, left Leg wound, right 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 Hypoxic respiratory failure 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 Severe sepsis Chest pain Acute hypoxemic respiratory failure Change or removal of nonsurgical wound dressing Pneumonia Encephalopathy Hypotension Acute UTI Sacral wound Quadriplegia Anemia Hypomagnesemia Hypokalemia Complication, blocked suprapubic catheter Leukocytosis Acute urinary retention Hydronephrosis Constipation Abdominal pain Left sided abdominal pain Cough Pneumonia Abnormal chest CT Elevated hemidiaphragm Pneumonia involving right lung Soft tissue infection Suprapubic catheter dysfunction Aspiration pneumonia Bacteremia Acute hypotension Acute hypokalemia Abdominal pain Hypoxic respiratory failure Sepsis Acute UTI Acute UTI Abdominal pain Aspiration pneumonitis Pneumonia Paraplegia Surgical History No pertinent past surgical history Social History (Updated 03/21/25 @ 13:02 by CHRISTINA Alvarez) Smoking Status: Never smoker Tobacco Type: Cigarettes Cigarettes Per Day: 1ppd; Second Hand Exposure: Yes; Do You Dip or Chew Tobacco: No; Hx Alcohol Use: No Hx Substance Use: Yes Non-Prescribed Medications: Crack / Cocaine and Marijuana Preferred Language: Lao Communication Ability: Effective Communication Ability Comment: difficulty writing Health Education Specialist Required: No Beliefs That Will Affect Care: None Current Living Situation: Family Current Living Situation Comment: lives home with sister Feels Safe at Home: Yes Assistive Devices: Nebulizer, Wheelchair and Other Physical Exam 2 Physical Exam: General: Patient sleeping upon entering the room in no acute distress. Patient was easily awakened. Speech and thought process appropriate. Mood and affect appropriate. Cognition intact. Head: Normocephalic and atraumatic. ENT: No evidence of nasal or oral mucosal lesions. Mucous membranes are moist. Poor dentition was noted. Eyes: Pupils equal round reactive to light. Neck: Supple without adenopathy and full range of motion. Well-healed midline incision over the posterior cervical spine status post posterior screw fusion extending from C3-T1. Upper extremities: Patient has mobility of the upper extremities with some mild flexion contracture of the wrist and hands bilaterally. Chest: Nontender to palpation of the costosternal junction. Abdomen: Soft and nondistended. No organomegaly. Bowel sounds active. Nontender to palpation. Lower extremities: Patient has diminished sensation of the distal lower extremities to sharp and dull in a nondermatomal pattern. Bandage on left foot was not removed for visual inspection. Patient has no active range of motion of the lower extremities bilaterally. Neurologic: Cranial nerves grossly intact. Results (Pain Clinic) Diagnostic Review MRI Findings: [place], [place] [phone] Magnetic Resonance Report Patient: NEHEMIAS FRIED Admit Date: 03/21/25 MR#: [id number] Address1: [address] [place] [address] Acct ID:[id number] Address2: [facility] Date: 1975 [facility] Zip: [place] [address] Age: 49 Location: 2E Sex: M Room[place]: [facility] [place] [facility] [place] Att Phy: Axel Mix MD Diagnosis: UTI Adrienne Phy: Chay Aguilar DO Service Date: 03/21/25 Fam Phy: Interpreting Phy: Cooper Miles MDAdmit Phy: Axel Mix MD Ordering Phy: Josh Brady DPM cc: ~ Exam(s): MRI LEFT FOOT Without Contrast EXAM: MR Left Lower Extremity Without Intravenous Contrast, Foot CLINICAL HISTORY: Reason for exam: Wound with exposed bone 5th metatarsal left. TECHNIQUE: Multiplanar magnetic resonance images of the left foot without intravenous contrast. COMPARISON: Plain films from 03/21/2025 FINDINGS: Bones/joints: There is increased signal on T2 fat sat and STIR involving the distal 1.6 cm of the 5th metatarsal with soft tissue ulceration down within a few mm of the bone. The midfoot alignment is normal. No other areas of abnormal bone marrow signal are identified. No acute fracture or dislocation is seen. Soft tissues: There is subcutaneous edema of the dorsum of the foot and lateral aspect of the distal foot. No abscess is identified. IMPRESSION: 1. There is subcutaneous edema of the dorsum of the foot and lateral aspect of the distal foot. No abscess is identified. 2. There is increased signal on T2 fat sat and STIR involving the distal 1.6 cm of the 5th metatarsal with soft tissue ulceration down within a few mm of the bone. Probable osteomyelitis. Electronically signed by: Cooper Miles MD 03/21/25 23:01 PM Dictated: 03/21/252300 Transcribed: 03/21/252300 CT Findings: [facility], [place] [phone] CT Scan Report Patient: NEHEMIAS FRIED Admit Date: 03/21/25 MR#: [id number] Address1: [address] [place] [address] Acct ID:[id number] Address2: [address] Date: 1975 [facility] Zip: [place] [address] Age: 49 Location: ED Sex: M Room/Bed: Att Phy: Diagnosis: Urinary Symptoms Adrienne Phy: [place], Service Date: 03/21/25 Fam Phy: Interpreting Phy: Justin Bravo MDAdmit Phy: Ordering Phy: Cooper Grande M.D. cc: ~ EXAM: CT abd pelvis IV con only CLINICAL HISTORY: lower abd to pelvic pain, decub, uti TECHNIQUE: Contiguous axial images were obtained from the level of the diaphragm to the pubic symphysis with intravenous contrast. Coronal and sagittal reconstructions were likewise performed and indicated to increase the sensitivity for detecting clinically relevant pathology. If IV contrast material had not been administered, the likelihood of detecting abnormalities relevant to the patient's condition would have been substantially decreased. CT scan was performed according to ALARA (as low as reasonable achievable). COMPARISON: 04:08:00 INSIDE ACCOUNT EXECUTIVE FINDINGS: Few atelectatic bands are noted involving bilateral lung bases. The liver is normal in size and attenuation. No focal liver lesions are seen. There is no intra or extrahepatic biliary ductal dilatation. Hepatic vasculature is patent. Status post-cholecystectomy. The spleen, pancreas, and adrenal glands are unremarkable. The kidneys are normal in size and attenuation. There is no hydronephrosis or perinephric fat stranding. Right kidneys are 1-2 mm sized concretion in upper calyx. Left kidney shows 8 mm and 12 mm in upper calyx and 5 mm in lower calyx. The ureters are normal in caliber and no ureteral calculi are seen. The bladder is normal in contour. Pelvic viscera are unremarkable. No focal or diffuse bowel wall thickening or evidence of bowel obstruction is identified. No evidence of inflamed appendix. Abdominal and pelvic vasculature is patent. No adenopathy or fluid collections are seen. No aggressive appearing osseous lesions are identified. Evidence of sacral decubitus ulcer with focal soft tissue defect and erosion of distal sacrum and coccyx is seen. Colonic fecal and gaseous distension IMPRESSION: 1. Evidence of sacral decubitus ulcer with focal soft tissue defect and erosion of distal sacrum and coccyx is seen.-stable. 2. Bilateral non-obstructing renal calculi. 3. Colonic fecal and gaseous distension- possibility of constipation 4. No other new interval abnormality since prior study. Electronically signed by Justin Bravo 03-21-2025 06:24 AM Dictated: 03/21/25 0539 Transcribed:
[2025-03-22 08:18] LABS: Alanine Aminotransferase 5.0 U/L (7-52); Albumin Globulin Ratio 1.4 (0.9-2); Alkaline Phosphatase 121.0 U/L (34-104); Anion Gap 3.0 (3-11); Bilirubin,Total 0.3 mg/dl (0.2-1.0); Blood Urea Nitrogen 8.0 mg/dl (6-23); Calcium 8.8 mg/dl (8.6-10.3); Carbon Dioxide 29.0 mmol/L (21-32); Chloride 109.0 mmol/L (98-107); Creatinine Clr Calc Pharmacy 222.0 ml/min; Globulin 2.5 gm/dl (2.5-4.0); Glucose 109.0 mg/dl (70-99(Fasting)); Magnesium 1.9 mg/dl (1.7-2.4); Potassium 3.9 mmol/L (3.5-5.1); Sodium 141.0 mmol/L (136-145); Total Protein 5.9 gm/dl (6.0-8.3)
[2025-03-22] MEDS: UMECLIDINIUM BROMIDE 62.5MCG/BLISTER 7 PUFFS/INHALER INH SCH (08:21)
[2025-03-22] MEDS: ERTAPENEM 1000MG 1,000 MG/10 ML SYR IV SCH (08:26)
[2025-03-22] MEDS: FLUTICASONE/VILANTEROL 200/25MCG 14 PUFFS/INHALER INH SCH (11:03)
--- NOTE | 2025-03-22 12:37 | Infectious Disease Consult ---
Date of Service March 22, 2025 Telehealth Information I performed this visit using a real-time telehealth connection between my location and the patients location ([facility]). After connecting through interactive tele-video, patient was identified by name and date of and/or wristband check.Patient (or authorized healthcare sales support representative) was informed that this was a telemedicine visit and it was being conducted confidentially over secure lines. My office door was closed and no o ne else was present in the room with me.Patient (or authorized healthcare sales support representative) provided consent to proceed with the visit, expressed an understanding of privacy and security of the telemedicine visit, and gave permission to have a hospital sales support representative in the room in order to assist with the visit and to conduct portions of the visit, as needed. I informed the patient (or authorized healthcare sales support representative) that I reviewed their record and presented the opportunity for them to ask any questions regarding the visit today. The patient agreed to participate. Assessment & Plan (1) Spinal cord injury, cervical region: (2) Seizure disorder: (3) GERD (gastroesophageal reflux disease): (4) COPD (chronic obstructive pulmonary disease): (5) Pressure ulcer of left foot, stage 4: (6) Stage IV pressure ulcer: (7) UTI (urinary tract infection): Plan Assessment: 49 year old male with PMH significant for paraplegia, autonomic dysreflexia, neurogenic bladder with suprapubic cath, history of PE on anticoagulation, chronic sacral ulcer with history of osteomyelitis and cellulitis and multiple debridements, history of complicated UTI, history of septic shock, anxiety disorder, COPD, history of polysubstance abuse, chronic pain, seizure disorder, history of leaving AMA who presented to the ED on 03/21/2025 with weakness, chills, nausea without vomiting x5 days and is admitted for complicated UTI. At [facility], there was concern for Left foot OM given MRI findings and discussed with Podiatry at bed-side there was concern for OM of left foot. Podiatry said a bone biopsy of that small area may make things work for a healing stand point. Urine culture (+) Acinetobacter. Plan: 1. Left foot OM - Recommend stopping Ertapenem IV and starting Meropenem and Vancomycin IV for now. - we will not follow up as we do not check the chart regularly, please contact the ID physician fondant puff maker if there is need for additional recommendations. 2. UTI due to Acinetobacter - Recommend stopping Ertapenem and switching to Meropenem as Ertapenem has almost zero coverage for Acinetobacter - f/u ID mark - we will not follow up as we do not check the chart regularly, please contact the ID physician fondant puff maker if there is need for additional recommendations. History of Present Illness History of Present Illness Reason for consult: UTI, poss. osteo, poss. sacral wound infection 49 year old male with PMH significant for paraplegia, autonomic dysreflexia, neurogenic bladder with suprapubic cath, history of PE on anticoagulation, chronic sacral ulcer with history of osteomyelitis and cellulitis and multiple debridements, history of complicated UTI, history of septic shock, anxiety disorder, COPD, history of polysubstance abuse, chronic pain, seizure disorder, history of leaving AMA who presented to the ED on 03/21/2025 with weakness, chills, nausea without vomiting x5 days and is admitted for complicated UTI. At [facility], there was concern for Left foot OM given MRI findings and discussed with Podiatry at bed-side there was concern for OM of left foot. Podiatry said a bone biopsy of that small area may make things work for a healing stand point. Urine culture (+) Acinetobacter. Allergies Allergy/AdvReac Type Severity Reaction Status Date / Time Opioids - Morphine Analogues AdvReac severe Verified 05/17/24 15:46 bradycardia Home Medications Medication Instructions Recorded Confirmed Type albuterol sulfate 2.5 mg/3 mL 0 mg inhalation Q4H PRN Shortness 08/26/24 03/21/25 History (0.083 %) solution for nebulization Of Breath Or Wheezing apixaban 5 mg tablet (Eliquis) 5 mg PO AMHS 08/26/24 03/21/25 History baclofen 10 mg tablet 20 mg PO TID 08/26/24 03/21/25 History bisacodyl 10 mg rectal suppository 10 mg ID BID 08/26/24 03/21/25 History budesonide-formoterol HFA 160 2 puff inhalation BID 08/26/24 03/21/25 History mcg-4.5 mcg/actuation aerosol inhaler docusate sodium 100 mg capsule 100 mg PO BID PRN Constipation 08/26/24 03/21/25 History hydroxyzine HCl 25 mg tablet 25 mg PO DAILY PRN Anxiety 08/26/24 03/21/25 History lactulose 10 gram/15 mL oral 20 g PO TID 08/26/24 03/21/25 History solution midodrine 10 mg tablet 10 mg PO TID PRN Hypotension 08/26/24 03/21/25 History nortriptyline 25 mg capsule 25 mg PO HS 08/26/24 03/21/25 History oxybutynin chloride 10 mg 10 mg PO QAM 08/26/24 03/21/25 History tablet,extended release 24 hr pantoprazole 40 mg tablet,delayed 40 mg DAILY 08/26/24 03/21/25 History release sennosides 8.6 mg-docusate sodium 2 tab PO HS 08/26/24 03/21/25 History 50 mg tablet (Senexon-S) tiotropium bromide 2.5 2 puff inhalation QAM 08/26/24 03/21/25 History mcg/actuation mist for inhalation (Spiriva Respimat) acetaminophen 325 mg tablet 650 mg PO Q6 PRN Fever Or Pain 09/30/24 03/21/25 History melatonin 3 mg capsule 3 mg PO HS 09/30/24 03/21/25 History ondansetron 4 mg disintegrating 4 mg translingual Q6 PRN Nausea 09/30/24 03/21/25 History tablet albuterol sulfate 0.63 mg/3 mL 0.63 mg inhalation UD PRN SOB 03/21/25 03/21/25 History solution for nebulization apixaban 5 mg tablet (Eliquis) 5 mg PO BID 03/21/25 03/21/25 History levetiracetam 1,000 mg tablet 1,000 mg PO BID 03/21/25 03/21/25 History pregabalin 50 mg capsule 50 mg PO BID 03/21/25 03/21/25 History simethicone 80 mg chewable tablet 80 mg PO TID 03/21/25 03/21/25 History Patient History Medical History (Updated 03/22/25 @ 16:43 by Bishnu Kilgore II, DO) Open wound of left foot Chronic osteomyelitis of sacrum Sacral decubitus ulcer, stage IV Complicated UTI (urinary tract infection) RSV (respiratory syncytial virus infection) Hypoxia Leg wound, left Leg wound, right 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 Hypoxic respiratory failure 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 Severe sepsis Chest pain Acute hypoxemic respiratory failure Change or removal of nonsurgical wound dressing Pneumonia Encephalopathy Hypotension Acute UTI Sacral wound Quadriplegia Anemia Hypomagnesemia Hypokalemia Complication, blocked suprapubic catheter Leukocytosis Acute urinary retention Hydronephrosis Constipation Abdominal pain Left sided abdominal pain Cough Pneumonia Abnormal chest CT Elevated hemidiaphragm Pneumonia involving right lung Soft tissue infection Suprapubic catheter dysfunction Aspiration pneumonia Bacteremia Acute hypotension Acute hypokalemia Abdominal pain Hypoxic respiratory failure Sepsis Acute UTI Acute UTI Abdominal pain Aspiration pneumonitis Pneumonia Paraplegia Surgical History No pertinent past surgical history Social History (Updated 03/21/25 @ 13:02 by CHRISTINA Alvarez) Smoking Status: Never smoker Tobacco Type: Cigarettes Cigarettes Per Day: 1ppd; Second Hand Exposure: Yes; Do You Dip or Chew Tobacco: No; Hx Alcohol Use: No Hx Substance Use: Yes Non-Prescribed Medications: Crack / Cocaine and Marijuana Preferred Language: Spanish Communication Ability: Effective Communication Ability Comment: difficulty writing Industrial Economics Teacher Required: No Beliefs That Will Affect Care: None Current Living Situation: Family Current Living Situation Comment: lives home with sister Feels Safe at Home: Yes Assistive Devices: Nebulizer, Wheelchair and Other Review of Systems ROS: all negative except for burning Physical Exam NA Results & Data Vital Signs (Past 12 Hours) Vital Signs Temp Pulse Resp BP Pulse Ox O2 Del Method 03/22/25 11:18 36.3 C L 54 L 18 118/87 96 Room Air 03/22/25 07:41 36.5 C 55 L 20 105/67 96 Room Air 03/22/25 01:56 37.3 C 60 18 126/89 97 Room Air Laboratory Results Urine culture on 03/21/2025 Urine Culture Preliminary 03/22/25-1223 Organism 1 Acinetobacter baumannii/nosoco Muir Count 60,000 CFU/ml Sens Sensitivities to Follow Sacrum wound on 03/21/2025 Gram Stain Final 03/21/25-1417 Gram Stain Result Few WBCs Seen Few Gram Positive Cocci Rare Gram Negative Bacilli Surface Wound Culture Preliminary 03/22/25-1414 Organism 1 Staphylococcus aureus Quantity Moderate Sens Sensitivities to Follow Diagnostic Findings CT abd/pelvis on 03/21/2025 IMPRESSION: 1. Evidence of sacral decubitus ulcer with focal soft tissue defect and erosion of distal sacrum and coccyx is seen.-stable. 2. Bilateral non-obstructing renal calculi. 3. Colonic fecal and gaseous distension- possibility of constipation 4. No other new interval abnormality since prior study. Left Foot MRI on 03/21/2025 IMPRESSION: 1. There is subcutaneous edema of the dorsum of the foot and lateral aspect of the distal foot. No abscess is identified. 2. There is increased signal on T2 fat sat and STIR involving the distal 1.6 cm of the 5th metatarsal with soft tissue ulceration down within a few mm of the bone. Probable osteomyelitis. Medications Administered Home Medications Medication Instructions Recorded Confirmed Last Taken albuterol sulfate 2.5 mg/3 mL 0 mg inhalation Q4H PRN Shortness 08/26/24 03/21/25 03/20/25 (0.083 %) solution for nebulization Of Breath Or Wheezing apixaban 5 mg tablet (Eliquis) 5 mg PO AMHS 08/26/24 03/21/25 03/20/25 baclofen 10 mg tablet 20 mg PO TID 08/26/24 03/21/25 03/20/25 bisacodyl 10 mg rectal suppository 10 mg ID BID 08/26/24 03/21/25 03/20/25 budesonide-formoterol HFA 160 2 puff inhalation BID 08/26/24 03/21/25 03/20/25 mcg-4.5 mcg/actuation aerosol inhaler docusate sodium 100 mg capsule 100 mg PO BID PRN Constipation 08/26/24 03/21/25 03/20/25 hydroxyzine HCl 25 mg tablet 25 mg PO DAILY PRN Anxiety 08/26/24 03/21/25 03/20/25 lactulose 10 gram/15 mL oral 20 g PO TID 08/26/24 03/21/25 03/20/25 solution midodrine 10 mg tablet 10 mg PO TID PRN Hypotension 08/26/24 03/21/25 03/20/25 nortriptyline 25 mg capsule 25 mg PO HS 08/26/24 03/21/25 03/20/25 oxybutynin chloride 10 mg 10 mg PO QAM 08/26/24 03/21/25 03/20/25 tablet,extended release 24 hr pantoprazole 40 mg tablet,delayed 40 mg DAILY 08/26/24 03/21/25 03/20/25 release sennosides 8.6 mg-docusate sodium 2 tab PO HS 08/26/24 03/21/25 03/20/25 50 mg tablet (Senexon-S) tiotropium bromide 2.5 2 puff inhalation QAM 08/26/24 03/21/25 03/20/25 mcg/actuation mist for inhalation (Spiriva Respimat) acetaminophen 325 mg tablet 650 mg PO Q6 PRN Fever Or Pain 09/30/24 03/21/25 03/20/25 melatonin 3 mg capsule 3 mg PO HS 09/30/24 03/21/25 03/20/25 ondansetron 4 mg disintegrating 4 mg translingual Q6 PRN Nausea 09/30/24 03/21/25 03/20/25 tablet albuterol sulfate 0.63 mg/3 mL 0.63 mg inhalation UD PRN SOB 03/21/25 03/21/25 03/20/25 solution for nebulization apixaban 5 mg tablet (Eliquis) 5 mg PO BID 03/21/25 03/21/25 03/20/25 levetiracetam 1,000 mg tablet 1,000 mg PO BID 03/21/25 03/21/25 03/20/25 pregabalin 50 mg capsule 50 mg PO BID 03/21/25 03/21/25 03/20/25 simethicone 80 mg chewable tablet 80 mg PO TID 03/21/25 03/21/25 03/20/25 Active Medications Generic Name Dose Route Start Last Admin Trade Name [facility] PRN Reason Stop Dose Admin Apixaban 5 mg 03/21/25 21:00 03/22/25 08:21 Apixaban 5 Mg Tablet PO 04/20/25 20:59 5 mg BID ROSALES Administration Baclofen 20 mg 03/21/25 14:00 03/22/25 16:33 Baclofen 20 Mg Tab PO 04/20/25 13:59 20 mg TID ROSALES Administration Bisacodyl 10 mg 03/21/25 21:00 03/22/25 08:21 Bisacodyl 10 Mg Supp ID 04/20/25 20:59 Not Given BID ROSALES Duloxetine HCl 60 mg 03/22/25 09:00 03/22/25 08:19 Duloxetine Hcl 60 Mg Cap PO 04/21/25 08:59 60 mg QAM ROSALES Administration Fluticasone/Vilanterol 1 puffs 03/22/25 10:15 03/22/25 11:03 Fluticasone/Vilanterol 200/25mcg 14 Puffs/Inhaler INH 04/21/25 10:14 1 puffs DAILY ROSALES Administration Protocol Ertapenem 1,000 mg in 10 mls @ 2 mls/min 03/22/25 08:00 03/22/25 08:26 Invanz 1000mg IV 04/01/25 07:59 2 mls/min Q24H ROSALES Administration Vancomycin HCl 1,750 mg/ 535 mls @ 200 mls/hr 03/21/25 21:00 03/22/25 11:23 Sodium Chloride IV 03/31/25 20:59 Infused Q12H ROSALES Infusion Lactulose 20 gm 03/21/25 14:00 03/22/25 13:43 Lactulose Syrup 20 Gm/30 Ml Udc PO 04/20/25 13:59 20 gm TID ROSALES Administration Levetiracetam 1,000 mg 03/21/25 21:00 03/22/25 08:20 Levetiracetam 500 Mg Tab PO 04/20/25 20:59 1,000 mg BID ROSALES Administration Melatonin 3 mg 03/21/25 21:00 03/21/25 21:29 Melatonin 3 Mg Tab PO 04/20/25 20:59 3 mg HS ROSALES Administration Midodrine 10 mg 03/21/25 17:00 03/22/25 16:33 Midodrine Hcl 10 Mg Tab PO 04/20/25 16:59 10 mg DAILY@0800,1200,1700 ROSALES Administration Oxybutynin Chloride 10 mg 03/21/25 11:30 03/22/25 08:20 Oxybutynin Chloride Xl 5 Mg Tabcr PO 04/20/25 11:29 10 mg QAM ROSALES Administration Oxycodone HCl 10 mg 03/22/25 07:25 03/22/25 13:43 Oxycodone Hcl Ir 5 Mg Tab (Immediate Release) PO 04/05/25 07:24 10 mg Q4H PRN Administration Mod-Sev Pain (Scale 4-10) Pantoprazole Sodium 40 mg 03/21/25 11:30 03/22/25 08:20 Pantoprazole 40 Mg Tab PO 04/20/25 11:29 40 mg DAILY ROSALES Administration Pregabalin 50 mg 03/21/25 21:00 03/22/25 08:19 Pregabalin 50 Mg Cap PO 04/20/25 20:59 50 mg BID ROSALES Administration Senna/Docusate Sodium 2 tab 03/21/25 21:00 03/21/25 21:29 Docusate Sodium/Senna 50/8.6mg Tab PO 04/20/25 20:59 2 tab HS ROSALES Administration Simethicone 80 mg 03/21/25 14:00 03/22/25 13:43 Simethicone 80 Mg Chew PO 04/20/25 13:59 80 mg TID ROSALES Administration Umeclidinium Dent 1 puffs 03/22/25 09:00 03/22/25 08:21 Umeclidinium Dent 62.5mcg/Blister 7 Puffs/Inhaler INH 04/21/25 08:59 1 puffs QAM ROSALES Administration (6) Stage IV pressure ulcer Pressure injury location: foot, unspecified location Laterality: left Qualified Code(s): L89.894 - Pressure ulcer of other site, stage 4
--- NOTE | 2025-03-22 13:25 | Hospitalist Progress Note ---
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: (11) History of pulmonary embolism: (12) COPD (chronic obstructive pulmonary disease): (13) GERD (gastroesophageal reflux disease): (14) Seizure disorder: Plan 49 year old male with PMH significant for paraplegia, autonomic dysreflexia, neurogenic bladder with suprapubic cath, history of PE on anticoagulation, chronic sacral ulcer with history of osteomyelitis and cellulitis and multiple debridements, history of complicated UTI, history of septic shock, anxiety disorder, COPD, history of polysubstance abuse, chronic pain, seizure disorder, history of leaving AMA who presented to the ED on 03/21/2025 with weakness, chills, nausea without vomiting x5 days and is admitted for complicated UTI. Complicated UTI Suprapubic catheter Patient does not meet criteria for sepsis at this time with no fevers, leukocytosis, tachycardia, tachypnea, negative lactate and procalcitonin UA +nitrite, leuk esterase, WBC, bacteria Given history of EBSL E Coli UTI - changed to IV ertapenem and vancomycin on admission Suprapubic catheter exchanged by nursing staff - purulent drainage noted at insertion site - follow culture Urine culture growing Acinetobacter baumannii - will consult w/ ID Blood cultures - NGTD Continue oxybutynin Stage IV pressure ulcer of left foot Foot x-ray negative for osteomyelitis Follow wound culture Podiatry consulted: -Offload with waffle boot and pillow -Daily dressing changes per orders -MRI ordered and obtained overnight - IMPRESSION: 1. There is subcutaneous edema of the dorsum of the foot and lateral aspect of the distal foot. No abscess is identified. 2. There is increased signal on T2 fat sat and STIR involving the distal 1.6 cm of the 5th metatarsal with soft tissue ulceration down within a few mm of the bone. Probable osteomyelitis. Sacral decubitus ulcer Chronic wound with history of multiple episodes of osteomyelitis and surgical debridement CTAP reveals focal soft tissue defect and erosion of distal sacrum and coccyx - stable WOCN consulted: appreciate wound care recs Turn and reposition q2hr Follow wound cultx Will also consult w/ ID Chronic pain Chronic pain and history of polysubstance abuse Drug screen positive for marijuana only Patient trialed suboxone previously and stopped taking due to constipation side effect Reports severe burning pain all over body Continue baclofen, nortriptyline, pregabalin Breakthrough pain control with tylenol PRN and oxycodone q4hr PRN *Patient threatened to leave AMA due to wanting pain medicine but since receiving oxycodone was agreeable to stay* Pain management consulted: appreciate recs Hypokalemia Chronic hypokalemia per chart review K 3.2 on admission Replete and monitor Hypotension Bradycardia Autonomic dysreflexia Chronic hypotension and bradycardia secondary to autonomic dysreflexia in setting of quadriplegia Continue midodrine tid Monitor BPs and HRs closely ana in setting of opioid use for pain Quadriplegia Continue home bowel regimen History of PE Continue Eliquis COPD No s/s of exacerbation CXR with no evidence of consolidation or pleural effusion Continue inhalers Seizure disorder Continue keppra GERD Continue PPI DVT Prophylaxis:on Eliquis Code Status: FULL CODE PCP: Chay Aguilar Disposition: PCU Admission and Anticipated Discharge Date Admission Date: March 21, 2025 Subjective Pt seen in follow up of UTI, left foot wound, sacral wound Currently lying in bed in NAD denies fever, chills, chest pain, shortness of breath says pain is much better controlled now - pt was seen by pain management this AM Pt seen by podiatry yesterday and MRI of foot obtained overnight Discussed with title assistant, will eval pt's sacral wound, will obtain cultx. Per pt's RN did not seem infected when dressings / packing changed yesterday Ucult growing Acinetobacter baumannii - will further discuss w/ ID Review of Systems Review of Systems: All systems reviewed & are unremarkable except as noted in Subjective Physical Exam Physical Exam: General/Psych: WD/WN, laying in bed Head: normocephalic, atraumatic Eyes: normal inspection, PERRL ENT: external ear and nose normal Neck: normal visual inspection Respiratory: normal respiratory effort, lungs clear to auscultation, no wheeze/rales/rhonchi, no accessory muscle use Cardiovascular: regular rate and rhythm, no murmur/rub/gallop Extremities: no BLE edema Abdomen/GI: normal bowel sounds, soft, mildly tender on palpation (improved) + suprapubic catheter (exchanged) Neurologic/MSK: A+Ox3, paraplegia - able to move BUE, however UEs w/ contractures Skin: no rashes, normal color, warm and dry; sacral pressure ulcer with wet to dry packed dressing without drainage or surrounding erythema; open wound to left lateral foot with serosanguinous drainage without surrounding erythema Results & Data Results & Data Vital Signs (Past 12 Hours) Vital Signs Temp Pulse Resp BP Pulse Ox O2 Del Method 03/22/25 11:18 36.3 C L 54 L 18 118/87 96 Room Air 03/22/25 07:41 36.5 C 55 L 20 105/67 96 Room Air 03/22/25 01:56 37.3 C 60 18 126/89 97 Room Air Laboratory Results 03/22/25 Range/Units 07:31 WBC 4.29 L (4.8-10.8) K/ul RBC 4.20 L (4.70-6.10) M/uL Hgb 9.9 L (14.0-18.0) g/dl Hct 34.0 L (42.0-52.0) % MCV 81.0 (80.0-100.0) fL MCH 23.6 L (25.0-34.0) pg MCHC 29.1 L (32.0-36.0) g/dL RDW Std Deviation 48.5 H (36.4-46.3) fL RDW Coeff of Adelia 16.5 H (11.5-14.5) % Plt Count 202 (130-400) K/uL MPV 9.7 (9.4-12.4) fL Sodium 141 (136-145) mmol/L Potassium 3.9 D (3.5-5.1) mmol/L Chloride 109 H (98-107) mmol/L Carbon Dioxide 29 (21-32) mmol/L Anion Gap 3 (3-11) BUN 8 (6-23) mg/dl Creatinine 0.45 L (0.6-1.4) mg/dl Est Cr Clr Drug Dosing 222.0 ml/min eGFR 129.88 BUN/Creatinine Ratio 17.8 (10-20) Glucose 109 H (70-99(Fasting)) mg/dl Calcium 8.8 (8.6-10.3) mg/dl Phosphorus 3.4 (2.5-4.9) mg/dl Magnesium 1.9 (1.7-2.4) mg/dl Total Bilirubin 0.3 (0.2-1.0) mg/dl AST 14 (13-39) U/L ALT 5 L (7-52) U/L Alkaline Phosphatase 121 H (34-104) U/L Total Protein 5.9 L (6.0-8.3) gm/dl Albumin 3.4 (3.4-5.0) gm/dl Globulin 2.5 (2.5-4.0) gm/dl Albumin/Globulin Ratio 1.4 (0.9-2) Medications Administered Current Inpatient Medications Acetaminophen (Acetaminophen 325 Mg Tab) 650 mg PO Q4H PRN PRN Reason: Pain or Fever Stop: 04/20/25 10:46 Apixaban (Apixaban 5 Mg Tablet) 5 mg PO BID [facility] Stop: 04/20/25 20:59 Last Admin: 03/22/25 08:21 Dose: 5 mg Baclofen (Baclofen 20 Mg Tab) 20 mg PO TID [facility] Stop: 04/20/25 13:59 Last Admin: 03/22/25 08:18 Dose: 20 mg Bisacodyl (Bisacodyl 10 Mg Supp) 10 mg IN BID [facility] Stop: 04/20/25 20:59 Last Admin: 03/22/25 08:21 Dose: Not Given Docusate Sodium (Docusate Sodium 100 Mg Cap) 100 mg PO BID PRN PRN Reason: Constipation Stop: 04/20/25 10:46 Duloxetine HCl (Duloxetine Hcl 60 Mg Cap) 60 mg PO QAM [facility] Stop: 04/21/25 08:59 Last Admin: 03/22/25 08:19 Dose: 60 mg Fluticasone/Vilanterol (Fluticasone/Vilanterol 200/25mcg 14 Puffs/Inhaler) 1 puffs INH DAILY [facility]; Protocol Stop: 04/21/25 10:14 Last Admin: 03/22/25 11:03 Dose: 1 puffs Hydroxyzine HCl (Hydroxyzine Hcl 25 Mg Tab) 25 mg PO DAILY PRN PRN Reason: Anxiety Stop: 04/20/25 10:46 Ertapenem (Invanz 1000mg) 1,000 mg in 10 mls @ 2 mls/min IV Q24H [facility] Stop: 04/01/25 07:59 Last Admin: 03/22/25 08:26 Dose: 2 mls/min Acetaminophen (Ofirmev) 1,000 mg in 100 mls @ 400 mls/hr IV Q8H PRN PRN Reason: Mild Pain (Scale 1, 2, 3) Stop: 03/24/25 10:46 Vancomycin HCl 1,750 mg/ (Sodium Chloride) 535 mls @ 200 mls/hr IV Q12H [facility] Stop: 03/31/25 20:59 Last Infusion: 03/22/25 11:23 Dose: Infused Lactulose (Lactulose Syrup 20 Gm/30 Ml Udc) 20 gm PO TID [facility] Stop: 04/20/25 13:59 Last Admin: 03/22/25 08:19 Dose: 20 gm Levetiracetam (Levetiracetam 500 Mg Tab) 1,000 mg PO BID [facility] Stop: 04/20/25 20:59 Last Admin: 03/22/25 08:20 Dose: 1,000 mg Melatonin (Melatonin 3 Mg Tab) 3 mg PO HS [facility] Stop: 04/20/25 20:59 Last Admin: 03/21/25 21:29 Dose: 3 mg Midodrine (Midodrine Hcl 10 Mg Tab) 10 mg PO DAILY@0800,1200,1700 [facility] Stop: 04/20/25 16:59 Last Admin: 03/22/25 11:04 Dose: 10 mg Miscellaneous Information (Vancomycin Consult Active) 1 each N/A UD PRN PRN Reason: Consult Stop: 04/20/25 07:14 Nortriptyline HCl (Nortriptyline Hcl 25 Mg Cap) 25 mg PO DAILY@1999 [facility] Stop: 04/21/25 19:59 Ondansetron HCl (Ondansetron Inj 2 Mg/Ml 2 Ml Vial) 4 mg IV Q6H PRN PRN Reason: Nausea Stop: 04/20/25 10:46 Oxybutynin Chloride (Oxybutynin Chloride Xl 5 Mg Tabcr) 10 mg PO QAM [facility] Stop: 04/20/25 11:29 Last Admin: 03/22/25 08:20 Dose: 10 mg Oxycodone HCl (Oxycodone Hcl Ir 5 Mg Tab (Immediate Release)) 10 mg PO Q4H PRN PRN Reason: Mod-Sev Pain (Scale 4-10) Stop: 04/05/25 07:24 Last Admin: 03/22/25 08:19 Dose: 10 mg Pantoprazole Sodium (Pantoprazole 40 Mg Tab) 40 mg PO DAILY [facility] Stop: 04/20/25 11:29 Last Admin: 03/22/25 08:20 Dose: 40 mg Polyethylene Glycol (Polyethylene (Miralax) 17 Gm Pack) 17 gm PO DAILY PRN PRN Reason: Constipation Stop: 04/20/25 10:46 Pregabalin (Pregabalin 50 Mg Cap) 50 mg PO BID [facility] Stop: 04/20/25 20:59 Last Admin: 03/22/25 08:19 Dose: 50 mg Senna/Docusate Sodium (Docusate Sodium/Senna 50/8.6mg Tab) 2 tab PO HS [facility] Stop: 04/20/25 20:59 Last Admin: 03/21/25 21:29 Dose: 2 tab Simethicone (Simethicone 80 Mg Chew) 80 mg PO TID [facility] Stop: 04/20/25 13:59 Last Admin: 03/22/25 08:26 Dose: 80 mg Umeclidinium [place] (Umeclidinium [place] 62.5mcg/Blister 7 Puffs/Inhaler) 1 puffs INH QAM [facility] Stop: 04/21/25 08:59 Last Admin: 03/22/25 08:21 Dose: 1 puffs (4) Sacral decubitus ulcer Pressure injury stage: stage 4 Qualified Code(s): L89.154 - Pressure ulcer of sacral region, stage 4 (5) Chronic pain Chronic pain type: due to trauma Qualified Code(s): G89.21 - Chronic pain due to trauma (7) Hypotension Hypotension type: unspecified hypotension type Qualified Code(s): I95.9 - Hypotension, unspecified
[2025-03-22] MEDS: MEROPENEM 500 MG in SYRINGE 0 ML IV SCH (17:21)
[2025-03-22] MEDS: ONDANSETRON INJ 2 MG/ML 2 ML VIAL IV PRN (17:21)
[2025-03-22] MEDS: ACETAMINOPHEN 325 MG TAB PO PRN (21:22)
[2025-03-22] MEDS: NORTRIPTYLINE HCL 25 MG CAP PO SCH (21:23)
--- NOTE | 2025-03-23 00:17 | Podiatry Progress Note ---
Date of Service March 22, 2025 Assessment & Plan (1) Pressure ulcer of left foot, stage 4: (2) Acute osteomyelitis of metatarsal bone of left foot: Plan Stage 4 pressure ulcer left lateral foot. Osteomyelitis fifth metatarsal left. - Left foot culture 03/21/2025: Growing Staph aureus. Sensitivities pending pending. - Offload area of ulceration with waffle boot and pillow behind the left ankle. - Dressing change to the left foot once daily with Aquacel Ag and optifoam dressing. Dressing orders placed. - X-ray left foot results reviewed without signs of osteomyelitis. - MRI results reviewed concerning for osteomyelitis of the distal aspect of the left fifth metatarsal. Lengthy discussion with patient regarding clinical and MRI findings consistent with osteomyelitis of the left fifth metatarsal. Discussed my recommendation for partial fifth ray amputation of the left foot for definitive treatment of osteomyelitis. Reviewed risks and benefits of the procedure as well as alternatives to amputation and risks of the alternatives. Patient does not wish to move forward with left fifth ray amputation at this time. He reports a history of osteomyelitis to the right fifth metatarsal which was successfully treated with a extended course of IV antibiotics, offloading and wound care. Patient wishes to attempt nonoperative treatment for osteomyelitis of the left fifth metatarsal and exhaust all options before considering amputation. Treatment of osteomyelitis of the fifth metatarsal was discussed with patient and telehealth infectious disease Dr. Kilgore in room. Given the clinical appearance of the wound-a small 3 mm focal defect with well adhered margins overlying firm, intact bone-and the fact that the patient is already receiving broad-spectrum IV antibiotic coverage, I believe that performing a bone biopsy at the base of this wound would likely cause more harm than benefit. Specifically risks creating a conduit for infection to extend into the medullary canal of the fifth metatarsal. Would recommend treating patient for o steomyelitis with 6 weeks IV antibiotics based on wound cultures which to date have grown Staph aureus which would be the most likely culprit for underlying osteomyelitis. Admission and Anticipated Discharge Date Admission Date: March 21, 2025 Subjective Patient seen resting comfortably in hospital bed. Left foot wound dressing changed without discomfort. Infectious disease monitoring specialist present in room and patient's case regarding the left foot is discussed with Dr. Kilgore. Review of Systems Review of Systems: Reports some ongoing weakness. Denies nausea and chills. No vomiting or diarrhea. Denies shortness of breath or chest pain. Denies pain in the left foot. Physical Exam Physical Exam: Left lower extremity: Left lower extremity is abducted at the level of the hip with the lateral aspect of the foot contacting the mattress which is likely the underlying cause of pressure at the level of the fifth metatarsal head laterally. There is a stage IV pressure ulceration overlying the lateral aspect of the distal third of the fifth metatarsal with exposed bone to the base distally. Area of exposed bone measures 3 mm in diameter with possible thin layer of periosteal coverage and is firm to palpation with a sterile cotton tip applicator. Minimal immediate periwound erythema without significant edema. No active drainage. No malodor. No lymphangitis or streaking. No pain to palpation of the wound. No crepitus on palpation of the surrounding soft tissues. Pedal pulses are palpable left lower extremity. Results & Data Results & Data Vital Signs (Past 12 Hours) Vital Signs Temp Pulse Resp BP Pulse Ox O2 Del Method 03/22/25 20:13 36.7 C 63 18 145/99 H 95 Room Air 03/22/25 15:44 36.6 C 60 19 129/87 97 Room Air Laboratory Results Wound culture left foot 03/21/2025 growing Staph aureus: Sensitivities pending Diagnostic Findings MRI left foot 03/21/2025 IMPRESSION: 1. There is subcutaneous edema of the dorsum of the foot and lateral aspect of the distal foot. No abscess is identified. 2. There is increased signal on T2 fat sat and STIR involving the distal 1.6 cm of the 5th metatarsal with soft tissue ulceration down within a few mm of the bone. Probable osteomyelitis. Coding Level of Care Code 30983 SUB INP/OBS CARE 2/35MIN Diagnoses Pressure ulcer of left foot, stage 4 L89.894 Acute osteomyelitis of metatarsal bone of left foot M86.172
[2025-03-23 06:05] LABS: Hematocrit (blood only) 33.3 % (42.0-52.0); Hemoglobin 9.9 g/dl (14.0-18.0); Mean Corpuscular Hemoglobin 23.6 pg (25.0-34.0); Mean Corpuscular Volume 79.3 fL (80.0-100.0); Platelet Count 218 K/uL (130-400); RDW Standard Deviation 46.7 fL (36.4-46.3); Red Blood Count 4.20 M/uL (4.70-6.10); White Blood Count 6.22 K/ul (4.8-10.8)
[2025-03-23 06:22] LABS: Marijuana Quant, GCMS Urine 276 ng/mL (<5)
[2025-03-23 06:27] LABS: Alanine Aminotransferase 6.0 U/L (7-52); Albumin Globulin Ratio 1.4 (0.9-2); Alkaline Phosphatase 121.0 U/L (34-104); Anion Gap 5.0 (3-11); Bilirubin,Total 0.3 mg/dl (0.2-1.0); Blood Urea Nitrogen 11.0 mg/dl (6-23); Calcium 8.8 mg/dl (8.6-10.3); Carbon Dioxide 28.0 mmol/L (21-32); Chloride 107.0 mmol/L (98-107); Creatinine Clr Calc Pharmacy 232.3 ml/min; Globulin 2.5 gm/dl (2.5-4.0); Glucose 98.0 mg/dl (70-99(Fasting)); Magnesium 1.8 mg/dl (1.7-2.4); Potassium 3.6 mmol/L (3.5-5.1); Sodium 140.0 mmol/L (136-145); Total Protein 5.9 gm/dl (6.0-8.3)
[2025-03-23] MEDS ORDERED: FLUTICASONE/VILANTEROL 200/25MCG 14 PUFFS/INHALER INH SCH (09:00)
--- NOTE | 2025-03-23 09:51 | Pharmacy Report ---
Pharmacy PK ABX Note - Date of Service March 23, 2025 - Assessment and Plan Assessment * 49 year old M receiving vancomycin and meropenem per ID recommendation for treatment of Acinetobacter UTI and left foot osteomyelitis. * MRSA isoalted from L foot, sacrum, and abdomen cultures. * Day #2 of antimicrobial therapy. * PMHx significant for quadriplegia with neurogenic bladder requiring a suprapubic catheter, frequent UTIs, recent admission for bacteremia. History of pseudomonas and MRSA in past. Recently started on Cipro. * SCr at baseline of ~0.5 mg/dL, this is likely inaccurate due to low muscle mass in quadriplegic patient. Plan Vancomycin * Target AUC/BEATRIZ of 400-600 mg/L.hr * Random level of 18.7 mcg/mL today associated with a slightly supratherapeutic AUC of 605 mg/L.hr * Will slightly reduce vancomycin dose and repeat random level in 2 days * New maintenance dose: 1500 mg IV every 12 hours * Random level ordered for: 03/25/25 w AM labs Pharmacy will continue to follow and will adjust dose/frequency as necessary. Thank you. Pharmacy has transitioned to AUC monitoring for vancomycin. AUC/BEATRIZ is the preferred PK/PD target and is associated with decreased risk of nephrotoxicity compared to traditional trough targets.
--- NOTE | 2025-03-23 11:23 | Hospitalist Progress Note ---
Date of Service March 23, 2025 Assessment & Plan (1) Complicated urinary tract infection: (2) Suprapubic catheter: (3) Pressure ulcer of left foot, stage 4: (4) Sacral decubitus ulcer: (5) Chronic pain: (6) Hypokalemia: (7) Hypotension: (8) Bradycardia: (9) Quadriplegia: (10) Autonomic dysreflexia: (11) History of pulmonary embolism: (12) COPD (chronic obstructive pulmonary disease): (13) GERD (gastroesophageal reflux disease): (14) Seizure disorder: Plan 49 year old male with PMH significant for paraplegia, autonomic dysreflexia, neurogenic bladder with suprapubic cath, history of PE on anticoagulation, chronic sacral ulcer with history of osteomyelitis and cellulitis and multiple debridements, history of complicated UTI, history of septic shock, anxiety disorder, COPD, history of polysubstance abuse, chronic pain, seizure disorder, history of leaving AMA who presented to the ED on 03/21/2025 with weakness, chills, nausea without vomiting x5 days and is admitted for complicated UTI. Complicated UTI Suprapubic Catheter -Patient does not meet criteria for sepsis at this time with no fevers, leukocytosis, tachycardia, tachypnea, negative lactate and procalcitonin -UA +nitrite, leuk esterase, WBC, bacteria Plan: -ID consult, appreciate recs, continue vancomycin and meropenem -Continue oxybutynin Stage IV pressure ulcer of left foot -Foot x-ray negative for osteomyelitis -Follow wound culture -Podiatry consulted: -Offload with waffle boot and pillow -Daily dressing changes per orders -per podiatry treat with 4-6 weeks of IV abx Sacral decubitus ulcer -Chronic wound with history of multiple episodes of osteomyelitis and surgical debridement -CTAP reveals focal soft tissue defect and erosion of distal sacrum and coccyx - stable -WOCN consulted: appreciate wound care recs -Turn and reposition q2hr Chronic Pain Syndrome -Chronic pain and history of polysubstance abuse -Drug screen positive for marijuana only -Patient trialed suboxone previously and stopped taking due to constipation side effect -Reports severe burning pain all over body Plan: -Continue baclofen, nortriptyline, duloxetine -increase lyrica to 50 tid today, tolerating doses well -Breakthrough pain control with tylenol PRN and oxycodone q4hr PRN -Pain management consulted: appreciate recs Chronic Hypotension Bradycardia Autonomic dysreflexia -Chronic hypotension and bradycardia secondary to autonomic dysreflexia in setting of quadriplegia -Continue midodrine tid -Monitor BPs and HRs closely ana in setting of opioid use for pain Quadriplegia -Continue home bowel regimen History of PE -Continue Eliquis COPD -Continue inhalers Seizure disorder -Continue keppra GERD -Continue PPI I spent a total of 50 minutes in direct patient care, including [id number] time with the patient and/or family, reviewing medical records, ordering and reviewing diagnostic tests, and coordinating care with other healthcare providers. This time includes: history taking, physical examination, medical decision making, counseling, ECG interpretation, imaging interpretation, lab interpretation, orders, and education, excluding time spent in the performance of separately billed services. Admission and Anticipated Discharge Date Admission Date: March 21, 2025 Subjective Patient seen and examined at bedside. Patient doing well today. States pain overall is improving. Pleased with current pain regiment and regiment of antibiotics. Review of Systems Review of Systems: CONSTITUTIONAL: Patient denies fevers, chills, sweats and weight changes. EYES: Patient denies any visual symptoms. EARS, NOSE, AND THROAT: No difficulties with hearing. No symptoms of rhinitis or sore throat. CARDIOVASCULAR: Patient denies chest pains, palpitations, orthopnea and paroxys mal nocturnal dyspnea. RESPIRATORY: No dyspnea on exertion, no wheezing or cough. GI: No nausea, vomiting, diarrhea, constipation, abdominal pain, hematochezia or melena. : No urinary hesitancy or dribbling. No nocturia or urinary frequency. No abnormal urethral discharge. MUSCULOSKELETAL: myalgias and neck pain noted NEUROLOGIC: No chronic headaches, no seizures. Patient denies numbness, tingling or weakness. PSYCHIATRIC: Patient denies problems with mood disturbance. No problems with anxiety. ENDOCRINE: No excessive urination or excessive thirst. DERMATOLOGIC: Patient denies any rashes or skin changes. Physical Exam Physical Exam: Gen: A&O 3 NAD HEENT: NCAT, EOMI, not icteric. External ears normal. No rhinorrhea. Moist mucous membranes. Neck: Supple, full range of motion, no observable masses, No meningeal sign. Lungs: No Respiratory distress. CV: bradycardic, regular rhythm Abdomen: Soft, nondistended, No rebound tenderness. MSK: No joint swelling, no redness. Skin: noted chronic wounds Neuro: chronic partial quadriplegia, spasticity noted Psych: Appropriate for situation. Results & Data Results & Data Vital Signs (Past 12 Hours) Vital Signs Temp Pulse Pulse Resp BP Pulse Ox O2 Del Method 03/23/25 10:00 36.3 C L 59 L 18 97/53 L 97 Room Air 03/23/25 07:00 42 L 03/23/25 04:13 36.4 C L 51 L 16 116/78 98 Room Air 03/22/25 23:45 36.7 C 57 L 20 119/90 96 Room Air Laboratory Results -personally reviewed, stable Hgb, stable WBC Medications Administered Acetaminophen (Acetaminophen 325 Mg Tab) 650 mg PO Q4H PRN PRN Reason: Pain or Fever Stop: 04/20/25 10:46 Last Admin: 03/22/25 21:22 Dose: 650 mg Documented By: LIONEL Apixaban (Apixaban 5 Mg Tablet) 5 mg PO BID [facility] Stop: 04/20/25 20:59 Last Admin: 03/23/25 08:55 Dose: 5 mg Documented By: Admin: 03/22/25 21:23 Dose: 5 mg Documented By: Admin: 03/22/25 08:21 Dose: 5 mg Documented By: Admin: 03/21/25 21:30 Dose: 5 mg Documented By: ORALIA Baclofen (Baclofen 20 Mg Tab) 20 mg PO TID [facility] Stop: 04/20/25 13:59 Last Admin: 03/23/25 08:56 Dose: 20 mg Documented By: Admin: 03/22/25 21:24 Dose: 20 mg Documented By: Admin: 03/22/25 16:33 Dose: 20 mg Documented By: Admin: 03/22/25 08:18 Dose: 20 mg Documented By: Admin: 03/21/25 21:50 Dose: 20 mg Documented By: [facility] Admin: 03/21/25 11:32 Dose: 20 mg Documented By: ASHVIN Bisacodyl (Bisacodyl 10 Mg Supp) 10 mg KS BID [facility] Stop: 04/20/25 20:59 Last Admin: 03/23/25 09:23 Dose: Not Given Documented By: Admin: 03/22/25 21:23 Dose: Not Given Documented By: Admin: 03/22/25 08:21 Dose: Not Given Documented By: Admin: 03/21/25 21:31 Dose: Not Given Documented By: ORALIA Duloxetine HCl (Duloxetine Hcl 60 Mg Cap) 60 mg PO QAM [facility] Stop: 04/21/25 08:59 Last Admin: 03/23/25 08:56 Dose: 60 mg Documented By: Admin: 03/22/25 08:19 Dose: 60 mg Documented By: ASHVIN Fluticasone/Vilanterol (Fluticasone/Vilanterol 200/25mcg 14 Puffs/Inhaler) 1 puffs INH DAILY [facility]; Protocol Stop: 04/21/25 10:14 Last Admin: 03/23/25 09:01 Dose: 1 puffs Documented By: Admin: 03/22/25 11:03 Dose: 1 puffs Documented By: ASHVIN Ertapenem (Invanz 1000mg) 1,000 mg in 10 mls @ 2 mls/min IV Q24H [facility] Stop: 04/01/25 07:59 Last Admin: 03/22/25 08:26 Dose: 2 mls/min Documented By: ASHVIN Vancomycin HCl 1,750 mg/ (Sodium Chloride) 535 mls @ 200 mls/hr IV Q12H [facility] Stop: 03/23/25 12:00 Last Admin: 03/23/25 09:02 Dose: 200 mls/hr Documented By: Infusion: 03/23/25 00:15 Dose: Infused Documented By: Admin: 03/22/25 21:34 Dose: 200 mls/hr Documented By: Infusion: 03/22/25 11:23 Dose: Infused Documented By: Admin: 03/22/25 08:26 Dose: 200 mls/hr Documented By: Infusion: 03/22/25 00:10 Dose: Infused Documented By: Admin: 03/21/25 21:29 Dose: 200 mls/hr Documented By: ORALIA Meropenem 500 mg/ Syringe 10 mls @ 2 mls/min IV Q8H [facility]; Protocol Stop: 03/27/25 17:14 Last Admin: 03/23/25 09:02 Dose: 2 mls/min Documented By: Admin: 03/23/25 00:16 Dose: 2 mls/min Documented By: [facility] Admin: 03/22/25 17:21 Dose: 2 mls/min Documented By: ASHVIN Lactulose (Lactulose Syrup 20 Gm/30 Ml Udc) 20 gm PO TID [facility] Stop: 04/20/25 13:59 Last Admin: 03/23/25 08:57 Dose: Not Given Documented By: Admin: 03/22/25 21:23 Dose: 20 gm Documented By: Admin: 03/22/25 13:43 Dose: 20 gm Documented By: Admin: 03/22/25 08:19 Dose: 20 gm Documented By: Admin: 03/21/25 21:37 Dose: Not Given Documented By: [facility] Admin: 03/21/25 17:56 Dose: Not Given Documented By: ASHVIN Levetiracetam (Levetiracetam 500 Mg Tab) 1,000 mg PO BID [facility] Stop: 04/20/25 20:59 Last Admin: 03/23/25 08:57 Dose: 1,000 mg Documented By: Admin: 03/22/25 21:24 Dose: 1,000 mg Documented By: [facility] Admin: 03/22/25 08:20 Dose: 1,000 mg Documented By: Admin: 03/21/25 21:31 Dose: 1,000 mg Documented By: LIONEL Melatonin (Melatonin 3 Mg Tab) 3 mg PO HS [facility] Stop: 04/20/25 20:59 Last Admin: 03/22/25 21:22 Dose: 3 mg Documented By: [facility] Admin: 03/21/25 21:29 Dose: 3 mg Documented By: LIONEL Midodrine (Midodrine Hcl 10 Mg Tab) 10 mg PO DAILY@0800,1200,1700 [facility] Stop: 04/20/25 16:59 Last Admin: 03/23/25 08:54 Dose: 10 mg Documented By: Admin: 03/22/25 16:33 Dose: 10 mg Documented By: Admin: 03/22/25 11:04 Dose: 10 mg Documented By: Admin: 03/22/25 08:19 Dose: 10 mg Documented By: Admin: 03/21/25 15:38 Dose: 10 mg Documented By: ASHVIN Nortriptyline HCl (Nortriptyline Hcl 25 Mg Cap) 25 mg PO DAILY@1999 [facility] Stop: 04/21/25 19:59 Last Admin: 03/22/25 21:23 Dose: 25 mg Documented By: LIONEL Ondansetron HCl (Ondansetron Inj 2 Mg/Ml 2 Ml Vial) 4 mg IV Q6H PRN PRN Reason: Nausea Stop: 04/20/25 10:46 Last Admin: 03/22/25 17:21 Dose: 4 mg Documented By: ASHVIN Oxybutynin Chloride (Oxybutynin Chloride Xl 5 Mg Tabcr) 10 mg PO QAM [facility] Stop: 04/20/25 11:29 Last Admin: 03/23/25 08:57 Dose: 10 mg Documented By: Admin: 03/22/25 08:20 Dose: 10 mg Documented By: Admin: 03/21/25 11:31 Dose: 10 mg Documented By: ASHVIN Oxycodone HCl (Oxycodone Hcl Ir 5 Mg Tab (Immediate Release)) 10 mg PO Q4H PRN PRN Reason: Mod-Sev Pain (Scale 4-10) Stop: 04/05/25 07:24 Last Admin: 03/23/25 10:20 Dose: 10 mg Documented By: Admin: 03/23/25 06:02 Dose: 10 mg Documented By: Admin: 03/22/25 22:50 Dose: 10 mg Documented By: Admin: 03/22/25 17:21 Dose: 10 mg Documented By: Admin: 03/22/25 13:43 Dose: 10 mg Documented By: Admin: 03/22/25 08:19 Dose: 10 mg Documented By: ASHVIN Pantoprazole Sodium (Pantoprazole 40 Mg Tab) 40 mg PO DAILY [facility] Stop: 04/20/25 11:29 Last Admin: 03/23/25 08:57 Dose: 40 mg Documented By: Admin: 03/22/25 08:20 Dose: 40 mg Documented By: Admin: 03/21/25 11:32 Dose: 40 mg Documented By: ASHVIN Pregabalin (Pregabalin 50 Mg Cap) 50 mg PO BID [facility] Stop: 04/20/25 20:59 Last Admin: 03/23/25 09:01 Dose: 50 mg Documented By: Admin: 03/22/25 21:22 Dose: 50 mg Documented By: [facility] Admin: 03/22/25 08:19 Dose: 50 mg Documented By: Admin: 03/21/25 21:29 Dose: 50 mg Documented By: LIONEL Senna/Docusate Sodium (Docusate Sodium/Senna 50/8.6mg Tab) 2 tab PO HS [facility] Stop: 04/20/25 20:59 Last Admin: 03/22/25 21:22 Dose: 2 tab Documented By: [facility] Admin: 03/21/25 21:29 Dose: 2 tab Documented By: [facility] Simethicone (Simethicone 80 Mg Chew) 80 mg PO TID [facility] Stop: 04/20/25 13:59 Last Admin: 03/23/25 09:01 Dose: 80 mg Documented By: Admin: 03/22/25 21:21 Dose: 80 mg Documented By: Admin: 03/22/25 13:43 Dose: 80 mg Documented By: Admin: 03/22/25 08:26 Dose: 80 mg Documented By: Admin: 03/21/25 21:35 Dose: 80 mg Documented By: [facility] Admin: 03/21/25 13:34 Dose: 80 mg Documented By: ASHVIN Umeclidinium [place] (Umeclidinium [place] 62.5mcg/Blister 7 Puffs/Inhaler) 1 puffs INH QAM [facility] Stop: 04/21/25 08:59 Last Admin: 03/23/25 09:01 Dose: 1 puffs Documented By: Admin: 03/22/25 08:21 Dose: 1 puffs Documented By: ASHVIN (4) Sacral decubitus ulcer Pressure injury stage: stage 4 Qualified Code(s): L89.154 - Pressure ulcer of sacral region, stage 4 (5) Chronic pain Chronic pain type: due to trauma Qualified Code(s): G89.21 - Chronic pain due to trauma (7) Hypotension Hypotension type: unspecified hypotension type Qualified Code(s): I95.9 - Hypotension, unspecified
[2025-03-23] MEDS: PREGABALIN 50 MG CAP PO SCH (14:45)
[2025-03-23] MEDS: VANCOMYCIN HCL 1,500 MG in SODIUM CHLORIDE 0.9% 500 ML IV SCH (21:12)
[2025-03-23] MEDS: SIMETHICONE 80 MG CHEW PO PRN (21:15)
[2025-03-24 07:20] LABS: Hematocrit (blood only) 35.4 % (42.0-52.0); Hemoglobin 10.8 g/dl (14.0-18.0); Mean Corpuscular Hemoglobin 23.9 pg (25.0-34.0); Mean Corpuscular Volume 78.5 fL (80.0-100.0); Platelet Count 214 K/uL (130-400); RDW Standard Deviation 46.5 fL (36.4-46.3); Red Blood Count 4.51 M/uL (4.70-6.10); White Blood Count 6.65 K/ul (4.8-10.8)
[2025-03-24 07:53] LABS: Alanine Aminotransferase 6.0 U/L (7-52); Albumin Globulin Ratio 1.3 (0.9-2); Alkaline Phosphatase 130.0 U/L (34-104); Anion Gap 6.0 (3-11); Bilirubin,Total 0.4 mg/dl (0.2-1.0); Blood Urea Nitrogen 8.0 mg/dl (6-23); Calcium 8.9 mg/dl (8.6-10.3); Carbon Dioxide 29.0 mmol/L (21-32); Chloride 105.0 mmol/L (98-107); Creatinine Clr Calc Pharmacy 234.6 ml/min; Globulin 2.6 gm/dl (2.5-4.0); Glucose 86.0 mg/dl (70-99(Fasting)); Magnesium 1.8 mg/dl (1.7-2.4); Potassium 4.0 mmol/L (3.5-5.1); Sodium 140.0 mmol/L (136-145); Total Protein 6.1 gm/dl (6.0-8.3)
--- NOTE | 2025-03-24 14:04 | Hospitalist Progress Note ---
Date of Service March 24, 2025 Assessment & Plan (1) Complicated urinary tract infection: (2) Suprapubic catheter: (3) Pressure ulcer of left foot, stage 4: (4) Sacral decubitus ulcer: (5) Chronic pain: (6) Hypokalemia: (7) Hypotension: (8) Bradycardia: (9) Quadriplegia: (10) Autonomic dysreflexia: (11) History of pulmonary embolism: (12) COPD (chronic obstructive pulmonary disease): (13) GERD (gastroesophageal reflux disease): (14) Seizure disorder: Plan 49 year old male with PMH significant for paraplegia, autonomic dysreflexia, neurogenic bladder with suprapubic cath, history of PE on anticoagulation, chronic sacral ulcer with history of osteomyelitis and cellulitis and multiple debridements, history of complicated UTI, history of septic shock, anxiety disorder, COPD, history of polysubstance abuse, chronic pain, seizure disorder, history of leaving AMA who presented to the ED on 03/21/2025 with weakness, chills, nausea without vomiting x5 days and is admitted for complicated UTI. Complicated UTI Suprapubic Catheter -Patient does not meet criteria for sepsis at this time with no fevers, leukocytosis, tachycardia, tachypnea, negative lactate and procalcitonin -UA +nitrite, leuk esterase, WBC, bacteria Plan: -ID consult, appreciate recs, continue vancomycin and meropenem -Continue oxybutynin Stage IV pressure ulcer of left foot -Foot x-ray negative for osteomyelitis -Follow wound culture -Podiatry consulted: -Offload with waffle boot and pillow -Daily dressing changes per orders -per podiatry treat with 4-6 weeks of IV abx -will need home abx therapy, will start process on Tuesday, discussed with case management Sacral decubitus ulcer -Chronic wound with history of multiple episodes of osteomyelitis and surgical debridement -CTAP reveals focal soft tissue defect and erosion of distal sacrum and coccyx - stable -WOCN consulted: appreciate wound care recs -Turn and reposition q2hr Chronic Pain Syndrome -Chronic pain and history of polysubstance abuse -Drug screen positive for marijuana only -Patient trialed suboxone previously and stopped taking due to constipation side effect -Reports severe burning pain all over body Plan: -Continue baclofen, nortriptyline, duloxetine -lyrica 50 tid today -Breakthrough pain control with tylenol PRN and oxycodone q4hr PRN -Pain management consulted: appreciate recs Chronic Hypotension Bradycardia Autonomic dysreflexia -Chronic hypotension and bradycardia secondary to autonomic dysreflexia in setting of quadriplegia -Continue midodrine tid -Monitor BPs and HRs closely ana in setting of opioid use for pain Quadriplegia -Continue home bowel regimen History of PE -Continue Eliquis COPD -Continue inhalers Seizure disorder -Continue keppra GERD -Continue PPI I spent a total of 40 minutes in direct patient care, including [id number] time with the patient and/or family, reviewing medical records, ordering and reviewing diagnostic tests, and coordinating care with other healthcare providers. This time includes: history taking, physical examination, medical decision making, counseling, ECG interpretation, imaging interpretation, lab interpretation, orders, and education, excluding time spent in the performance of separately billed services. Admission and Anticipated Discharge Date Admission Date: March 21, 2025 Subjective Patient seen and examined at bedside. Doing well, tired today, pain continues to improve. Review of Systems Review of Systems: CONSTITUTIONAL: Patient denies fevers, chills, sweats and weight changes. EYES: Patient denies any visual symptoms. EARS, NOSE, AND THROAT: No difficulties with hearing. No symptoms of rhinitis or sore throat. CARDIOVASCULAR: Patient denies chest pains, palpitations, orthopnea and paroxysmal nocturnal dyspnea. RESPIRATORY: No dyspnea on exertion, no wheezing or cough. GI: No nausea, vomiting, diarrhea, constipation, abdominal pain, hematochezia or melena. : No urinary hesitancy or dribbling. No nocturia or urinary frequency. No abnormal urethral discharge. MUSCULOSKELETAL: myalgias and neck pain noted NEUROLOGIC: No chronic headaches, no seizures. Patient denies numbness, tingling or weakness. PSYCHIATRIC: Patient denies problems with mood disturbance. No problems with anxiety. ENDOCRINE: No excessive urination or excessive thirst. DERMATOLOGIC: Patient denies any rashes or skin changes. Physical Exam Physical Exam: Gen: A&O 3 NAD HEENT: NCAT, EOMI, not icteric. External ears normal. No rhinorrhea. Moist mucous membranes. Neck: Supple, full range of motion, no observable masses, No meningeal sign. Lungs: No Respiratory distress. CV: bradycardic, regular rhythm Abdomen: Soft, nondistended, No rebound tenderness. MSK: No joint swelling, no redness. Skin: noted chronic wounds Neuro: chronic partial quadriplegia, spasticity noted Psych: Appropriate for situation. Results & Data Results & Data Vital Signs (Past 12 Hours) Vital Signs Temp Pulse Pulse Resp BP Pulse Ox O2 Del Method 03/24/25 12:03 36.3 C L 49 L 12 118/76 99 Room Air 03/24/25 08:14 36.3 C L 48 L 20 129/90 96 Room Air 03/24/25 07:00 46 L 03/24/25 03:26 36.3 C L 48 L 18 129/90 97 Room Air Laboratory Results -personally reviewed, creatinine at baseline, alk phos chronically elevated in setting of bone turnover from partial quadriplegia Medications Administered Acetaminophen (Acetaminophen 325 Mg Tab) 650 mg PO Q4H PRN PRN Reason: Pain or Fever Stop: 04/20/25 10:46 Last Admin: 03/22/25 21:22 Dose: 650 mg Documented By: [facility] Apixaban (Apixaban 5 Mg Tablet) [address] [facility] Stop: 04/20/25 20:59 Last Admin: 03/24/25 09:00 Dose: 5 mg Documented By: Admin: 03/23/25 21:16 Dose: 5 mg Documented By: [facility] Admin: 03/23/25 08:55 Dose: 5 mg Documented By: Admin: 03/22/25 21:23 Dose: 5 mg Documented By: [facility] Admin: 03/22/25 08:21 Dose: 5 mg Documented By: Admin: 03/21/25 21:30 Dose: 5 mg Documented By: [facility] Baclofen (Baclofen 20 Mg Tab) [address] [facility] Stop: 04/20/25 13:59 Last Admin: 03/24/25 08:59 Dose: 20 mg Documented By: Admin: 03/23/25 21:16 Dose: 20 mg Documented By: [facility] Admin: 03/23/25 14:45 Dose: 20 mg Documented By: [facility] Admin: 03/23/25 08:56 Dose: 20 mg Documented By: [facility] Admin: 03/22/25 21:24 Dose: 20 mg Documented By: [facility] Admin: 03/22/25 16:33 Dose: 20 mg Documented By: Admin: 03/22/25 08:18 Dose: 20 mg Documented By: Admin: 03/21/25 21:50 Dose: 20 mg Documented By: [facility] Admin: 03/21/25 11:32 Dose: 20 mg Documented By: ASHVIN Bisacodyl (Bisacodyl 10 Mg Supp) 10 mg SC BID [facility] Stop: 04/20/25 20:59 Last Admin: 03/24/25 09:11 Dose: Not Given Documented By: Admin: 03/23/25 21:17 Dose: Not Given Documented By: Admin: 03/23/25 09:23 Dose: Not Given Documented By: Admin: 03/22/25 21:23 Dose: Not Given Documented By: [facility] Admin: 03/22/25 08:21 Dose: Not Given Documented By: Admin: 03/21/25 21:31 Dose: Not Given Documented By: [facility] Duloxetine HCl (Duloxetine Hcl 60 Mg Cap) 60 mg PO QAM [facility] Stop: 04/21/25 08:59 Last Admin: 03/24/25 08:59 Dose: 60 mg Documented By: Admin: 03/23/25 08:56 Dose: 60 mg Documented By: Admin: 03/22/25 08:19 Dose: 60 mg Documented By: ASHVIN Fluticasone/Vilanterol (Fluticasone/Vilanterol 200/25mcg 14 Puffs/Inhaler) 1 puffs INH DAILY [facility]; Protocol Stop: 04/21/25 10:14 Last Admin: 03/24/25 08:58 Dose: 1 puffs Documented By: Admin: 03/23/25 09:01 Dose: 1 puffs Documented By: Admin: 03/22/25 11:03 Dose: 1 puffs Documented By: ASHVIN Ertapenem (Invanz 1000mg) 1,000 mg in 10 mls @ 2 mls/min IV Q24H [facility] Stop: 04/01/25 07:59 Last Admin: 03/22/25 08:26 Dose: 2 mls/min Documented By: ASHVIN Meropenem 500 mg/ Syringe 10 mls @ 2 mls/min IV Q8H [facility]; Protocol Stop: 03/27/25 17:14 Last Admin: 03/24/25 08:57 Dose: 2 mls/min Documented By: Admin: 03/24/25 01:55 Dose: 2 mls/min Documented By: [facility] Admin: 03/23/25 16:55 Dose: 2 mls/min Documented By: [facility] Admin: 03/23/25 09:02 Dose: 2 mls/min Documented By: Admin: 03/23/25 00:16 Dose: 2 mls/min Documented By: [facility] Admin: 03/22/25 17:21 Dose: 2 mls/min Documented By: ASHVIN Vancomycin HCl 1,500 mg/ (Sodium Chloride) 530 mls @ 200 mls/hr IV Q12H [facility] Stop: 03/30/25 20:59 Last Infusion: 03/24/25 12:10 Dose: Infused Documented By: [facility] Admin: 03/24/25 08:57 Dose: 200 mls/hr Documented By: Infusion: 03/23/25 23:51 Dose: Infused Documented By: [facility] Admin: 03/23/25 21:12 Dose: 200 mls/hr Documented By: LIONEL Lactulose (Lactulose Syrup 20 Gm/30 Ml Udc) 20 gm PO TID [facility] Stop: 04/20/25 13:59 Last Admin: 03/24/25 09:11 Dose: Not Given Documented By: Admin: 03/23/25 21:17 Dose: Not Given Documented By: [facility] Admin: 03/23/25 14:58 Dose: Not Given Documented By: Admin: 03/23/25 08:57 Dose: Not Given Documented By: Admin: 03/22/25 21:23 Dose: 20 gm Documented By: [facility] Admin: 03/22/25 13:43 Dose: 20 gm Documented By: Admin: 03/22/25 08:19 Dose: 20 gm Documented By: Admin: 03/21/25 21:37 Dose: Not Given Documented By: [facility] Admin: 03/21/25 17:56 Dose: Not Given Documented By: ASHVIN Levetiracetam (Levetiracetam 500 Mg Tab) 1,000 mg PO BID [facility] Stop: 04/20/25 20:59 Last Admin: 03/24/25 09:00 Dose: 1,000 mg Documented By: Admin: 03/23/25 21:15 Dose: 1,000 mg Documented By: Admin: 03/23/25 08:57 Dose: 1,000 mg Documented By: Admin: 03/22/25 21:24 Dose: 1,000 mg Documented By: [facility] Admin: 03/22/25 08:20 Dose: 1,000 mg Documented By: Admin: 03/21/25 21:31 Dose: 1,000 mg Documented By: [facility] Melatonin (Melatonin 3 Mg Tab) 3 mg PO HS [facility] Stop: 04/20/25 20:59 Last Admin: 03/23/25 21:15 Dose: 3 mg Documented By: [facility] Admin: 03/22/25 21:22 Dose: 3 mg Documented By: [facility] Admin: 03/21/25 21:29 Dose: 3 mg Documented By: [facility] Midodrine (Midodrine Hcl 10 Mg Tab) 10 mg PO DAILY@0800,1200,1700 [facility] Stop: 04/20/25 16:59 Last Admin: 03/24/25 12:24 Dose: 10 mg Documented By: Admin: 03/24/25 07:50 Dose: 10 mg Documented By: [facility] Admin: 03/23/25 16:55 Dose: 10 mg Documented By: Admin: 03/23/25 12:23 Dose: 10 mg Documented By: [facility] Admin: 03/23/25 08:54 Dose: 10 mg Documented By: Admin: 03/22/25 16:33 Dose: 10 mg Documented By: Admin: 03/22/25 11:04 Dose: 10 mg Documented By: Admin: 03/22/25 08:19 Dose: 10 mg Documented By: Admin: 03/21/25 15:38 Dose: 10 mg Documented By: ASHVIN Nortriptyline HCl (Nortriptyline Hcl 25 Mg Cap) 25 mg PO DAILY@2000 [facility] Stop: 04/21/25 19:59 Last Admin: 03/23/25 21:17 Dose: 25 mg Documented By: [facility] Admin: 03/22/25 21:23 Dose: 25 mg Documented By: [facility] Ondansetron HCl (Ondansetron Inj 2 Mg/Ml 2 Ml Vial) 4 mg IV Q6H PRN PRN Reason: Nausea Stop: 04/20/25 10:46 Last Admin: 03/22/25 17:21 Dose: 4 mg Documented By: ASHVIN Oxybutynin Chloride (Oxybutynin Chloride Xl 5 Mg Tabcr) 10 mg PO QAM [facility] Stop: 04/20/25 11:29 Last Admin: 03/24/25 09:00 Dose: 10 mg Documented By: Admin: 03/23/25 08:57 Dose: 10 mg Documented By: Admin: 03/22/25 08:20 Dose: 10 mg Documented By: Admin: 03/21/25 11:31 Dose: 10 mg Documented By: ASHVIN Oxycodone HCl (Oxycodone Hcl Ir 5 Mg Tab (Immediate Release)) 10 mg PO Q4H PRN PRN Reason: Mod-Sev Pain (Scale 4-10) Stop: 04/05/25 07:24 Last Admin: 03/24/25 10:02 Dose: 10 mg Documented By: Admin: 03/24/25 05:38 Dose: 10 mg Documented By: Admin: 03/23/25 21:16 Dose: 10 mg Documented By: Admin: 03/23/25 14:45 Dose: 10 mg Documented By: Admin: 03/23/25 10:20 Dose: 10 mg Documented By: Admin: 03/23/25 06:02 Dose: 10 mg Documented By: [facility] Admin: 03/22/25 22:50 Dose: 10 mg Documented By: Admin: 03/22/25 17:21 Dose: 10 mg Documented By: Admin: 03/22/25 13:43 Dose: 10 mg Documented By: Admin: 03/22/25 08:19 Dose: 10 mg Documented By: ASHVIN Pantoprazole Sodium (Pantoprazole 40 Mg Tab) [address] [facility] Stop: 04/20/25 11:29 Last Admin: 03/24/25 08:59 Dose: 40 mg Documented By: Admin: 03/23/25 08:57 Dose: 40 mg Documented By: Admin: 03/22/25 08:20 Dose: 40 mg Documented By: Admin: 03/21/25 11:32 Dose: 40 mg Documented By: ASHVIN Pregabalin (Pregabalin 50 Mg Cap) [address] [facility] Stop: 04/22/25 13:59 Last Admin: 03/24/25 08:57 Dose: 50 mg Documented By: Admin: 03/23/25 21:15 Dose: 50 mg Documented By: [facility] Admin: 03/23/25 14:45 Dose: 50 mg Documented By: FERNANDO Senna/Docusate Sodium (Docusate Sodium/Senna 50/8.6mg Tab) 2 tab PO HS [facility] Stop: 04/20/25 20:59 Last Admin: 03/23/25 21:17 Dose: Not Given Documented By: [facility] Admin: 03/22/25 21:22 Dose: 2 tab Documented By: [facility] Admin: 03/21/25 21:29 Dose: 2 tab Documented By: [facility] Simethicone (Simethicone 80 Mg Chew) 80 mg PO TID PRN PRN Reason: gas Stop: 04/20/25 13:59 Last Admin: 03/23/25 21:15 Dose: 80 mg Documented By: [facility] Umeclidinium [place] (Umeclidinium [place] 62.5mcg/Blister 7 Puffs/Inhaler) [address] [facility] Stop: 04/21/25 08:59 Last Admin: 03/24/25 08:58 Dose: 1 puffs Documented By: Admin: 03/23/25 09:01 Dose: 1 puffs Documented By: [facility] Admin: 03/22/25 08:21 Dose: 1 puffs Documented By: ASHVIN (4) Sacral decubitus ulcer Pressure injury stage: stage 4 Qualified Code(s): L89.154 - Pressure ulcer of sacral region, stage 4 (5) Chronic pain Chronic pain type: due to trauma Qualified Code(s): G89.21 - Chronic pain due to trauma (7) Hypotension Hypotension type: unspecified hypotension type Qualified Code(s): I95.9 - Hypotension, unspecified
[2025-03-24] MEDS: MEROPENEM 500 MG in SYRINGE 0 ML IV SCH (21:16)
[2025-03-25 05:47] LABS: Hematocrit (blood only) 32.1 % (42.0-52.0); Hemoglobin 10.0 g/dl (14.0-18.0); Mean Corpuscular Hemoglobin 24.2 pg (25.0-34.0); Mean Corpuscular Volume 77.5 fL (80.0-100.0); Platelet Count 225 K/uL (130-400); RDW Standard Deviation 46.9 fL (36.4-46.3); Red Blood Count 4.14 M/uL (4.70-6.10); White Blood Count 6.72 K/ul (4.8-10.8)
[2025-03-25 06:03] LABS: Anion Gap 6.0 (3-11); Blood Urea Nitrogen 10.0 mg/dl (6-23); Calcium 8.8 mg/dl (8.6-10.3); Carbon Dioxide 29.0 mmol/L (21-32); Chloride 104.0 mmol/L (98-107); Creatinine Clr Calc Pharmacy 211.4 ml/min; Glucose 98.0 mg/dl (70-99(Fasting)); Potassium 3.5 mmol/L (3.5-5.1); Sodium 139.0 mmol/L (136-145)
--- NOTE | 2025-03-25 13:08 | Pharmacy Report ---
Pharmacy PK ABX Note - Date of Service March 25, 2025 - Assessment and Plan Assessment * 49 year old M receiving vancomycin and meropenem per ID recommendation for treatment of Acinetobacter UTI and left foot osteomyelitis. * MRSA isolated from L foot, sacrum, and abdomen cultures. Enterobacter and elizondo-sensititive Acinetobacter baumannii isolated from urine culture. CRAB now also isolated from sacral culture - [facility] and Dr. Watts aware as of yesterday. * Day #5 of antimicrobial therapy. * PMHx significant for quadriplegia with neurogenic bladder requiring a suprapubic catheter, frequent UTIs, recent admission for bacteremia. History of pseudomonas and MRSA in past. Recently started on Cipro. * SCr at baseline of ~0.5 mg/dL, this is likely inaccurate due to low muscle mass in quadriplegic patient. Plan Vancomycin * Target AUC/BEATRIZ of 400-600 mg/L.hr * Random level of 21.0 mcg/mL today associated with a therapeutic AUC of 561 mg/L.hr * Continue vancomycin 1500 mg IV every 12 hours * Random level ordered for: 03/29/25 w AM labs Pharmacy will continue to follow and will adjust dose/frequency as necessary. Thank you. Pharmacy has transitioned to AUC monitoring for vancomycin. AUC/BEATRIZ is the preferred PK/PD target and is associated with decreased risk of nephrotoxicity compared to traditional trough targets.
--- NOTE | 2025-03-25 13:32 | Hospitalist Progress Note ---
Date of Service March 25, 2025 Assessment & Plan (1) Complicated urinary tract infection: (2) Suprapubic catheter: (3) Pressure ulcer of left foot, stage 4: (4) Sacral decubitus ulcer: (5) Chronic pain: (6) Hypokalemia: (7) Hypotension: (8) Bradycardia: (9) Quadriplegia: (10) Autonomic dysreflexia: (11) History of pulmonary embolism: (12) COPD (chronic obstructive pulmonary disease): (13) GERD (gastroesophageal reflux disease): (14) Seizure disorder: Plan 49 year old male with PMH significant for paraplegia, autonomic dysreflexia, neurogenic bladder with suprapubic cath, history of PE on anticoagulation, chronic sacral ulcer with history of osteomyelitis and cellulitis and multiple debridements, history of complicated UTI, history of septic shock, anxiety disorder, COPD, history of polysubstance abuse, chronic pain, seizure disorder, history of leaving AMA who presented to the ED on 03/21/2025 with weakness, chills, nausea without vomiting x5 days and is admitted for complicated UTI. Complicated UTI Suprapubic Catheter Patient did not meet sepsis criteria on admission Urine culture grew acinetobacter baumannii/nosoco Plan: -ID consulted and discussed with Dr Kilgore via TT today: recommends IV cefepime 2g q8hr (instead of meropenem) and IV vancomycin 1500mg q12hr for 6 weeks (end date 05/04/25) -Discontinue meropenem -Continue oxybutynin -PICC consent obtained today and line placement ordered -CM following for placement at [facility]/ if preferred facilities cannot accept Stage IV pressure ulcer of left foot Foot MRI revealed probable osteomyelitis Wound culture grew staph aureus MRSA Podiatry consulted and recommends: -Offload with waffle boot and pillow -Daily dressing changes per orders -Treatment with 6 weeks IV antibiotics as above Sacral decubitus ulcer Chronic wound with history of multiple episodes of osteomyelitis and surgical debridement CTAP reveals focal soft tissue defect and erosion of distal sacrum and coccyx - stable Continue wound care Turn and reposition q2hr Chronic Pain Syndrome Chronic pain and history of polysubstance abuse Admitting drug screen positive for marijuana only Patient trialed suboxone previously and stopped taking due to constipation side effect Reports severe burning pain all over body Plan: -Continue baclofen and nortriptyline -Lyrica increased to 50mg tid this admission -Pain management added duloxetine 60 mg daily -Breakthrough pain control with oxycodone 10mg q4hr PRN Chronic Hypotension Bradycardia Autonomic dysreflexia Chronic hypotension and bradycardia secondary to autonomic dysreflexia in setting of quadriplegia Continue midodrine tid Quadriplegia Continue home bowel regimen History of PE Continue Eliquis COPD Continue inhalers Seizure disorder Continue keppra GERD Continue PPI DVT Prophylaxis: on Eliquis Code Status: FULL CODE PCP: Chay Aguilar Disposition: anticipate dc in next 1-2 days pending SNF acceptance Patient seen in collaboration with Dr Watts. Please see addendum. I spent a total of 50 minutes coordinating, documenting and providing care for this patient excluding time spent in the performance of separately billed services or time spent by another provider/QHP. Admission and Anticipated Discharge Date Admission Date: March 21, 2025 Supervising Physician Co-Signing Physician Notes Patient seen and examined at bedside. Patient doing well today, pain improved. On exam, no swelling in legs, decreasing pain in shoulders bilaterally. Hgb at baseline, no leukocytosis, creatinine at baseline. Wound culture growing Acinetobacter. Complex case. Discussed with ID, will switch abx to cefepime to cover urine acinetobacter, per ID will not treat wound acinetobacter culture. Pain adequately controlled at this time. Will need pain management appointment on discharge, will prescribe very short course of PO pain medications given complex substance use history. PICC line ordered for terminologist abx, working on placement at this time. I have seen and discussed the case with the collaborating advanced practitioner. I agree with the above H&P. I have reviewed and confirmed the patients medical history, the findings on physical examination, and the patients diagnosis and treatment plan with Karol VASQUEZ and agree with the information documented. I spent a total of 30 minutes coordinating, documenting, and providing care for this patient excluding time spent in the performance of separately billed services. All of the aforementioned completed outside of collaborating with the assigned advanced practitioner for a full treatment plan. I have reviewed the advanced practitioner's documentation, and I agree with, and take responsibility for the plan of care Subjective Patient seen resting in bed Reports his pain is improved, still 6/10 burning pain all over his body Denies chest pain, SOB, abdominal pain, N/V/D Review of Systems Review of Systems: All systems reviewed & are unremarkable except as noted in Subjective Physical Exam Physical Exam: General/Psych: WD/WN, laying in bed, drowsy Head: normocephalic, atraumatic Eyes: normal inspection, PERRL, conjunctivae pink ENT: external ear and nose normal, oropharynx normal Neck: normal visual inspection, trachea midline Respiratory: normal respiratory effort, lungs clear to auscultation, no wheeze/rales/rhonchi, no accessory muscle use Cardiovascular: regular rate and rhythm, no murmur/rub/gallop, no JVD Extremities: no cyanosis or clubbing, normal peripheral pulses, no BLE edema Abdomen/GI: normal bowel sounds, soft, tender on palpation Neurologic/MSK: A+Ox3, paraplegia - able to move BUE Skin: no rashes, normal color, warm and dry; unable to assess wounds due to dressings Results & Data Results & Data Vital Signs (Past 12 Hours) Vital Signs Temp Pulse Pulse Resp BP Pulse Ox O2 Del Method 03/25/25 11:31 36.5 C 58 L 15 138/84 96 Room Air 03/25/25 07:41 36.6 C 52 L 15 116/82 96 Room Air 03/25/25 07:00 56 L 03/25/25 03:33 36.8 C 59 L 18 108/65 92 Room Air Laboratory Results Short CBC 03/25/25 Range/Units 04:52 WBC 6.72 (4.8-10.8) K/ul Hgb 10.0 L (14.0-18.0) g/dl Hct 32.1 L (42.0-52.0) % Plt Count 225 (130-400) K/uL BMP 03/25/25 04:52 Sodium 139 Potassium 3.5 Chloride 104 Carbon Dioxide 29 BUN 10 Creatinine 0.48 L Glucose 98 Calcium 8.8 I have independently reviewed and interpreted patient's labs including CBC and BMP Medications Administered Current Inpatient Medications Acetaminophen (Acetaminophen 325 Mg Tab) 650 mg PO Q4H PRN PRN Reason: Pain or Fever Stop: 04/20/25 10:46 Last Admin: 03/22/25 21:22 Dose: 650 mg Apixaban (Apixaban 5 Mg Tablet) 5 mg PO BID [facility] Stop: 04/20/25 20:59 Last Admin: 03/25/25 08:56 Dose: 5 mg Baclofen (Baclofen 20 Mg Tab) 20 mg PO TID [facility] Stop: 04/20/25 13:59 Last Admin: 03/25/25 13:39 Dose: 20 mg Bisacodyl (Bisacodyl 10 Mg Supp) 10 mg [place] BID [facility] Stop: 04/20/25 20:59 Last Admin: 03/25/25 13:34 Dose: 10 mg Duloxetine HCl (Duloxetine Hcl 60 Mg Cap) 60 mg PO QAM [facility] Stop: 04/21/25 08:59 Last Admin: 03/25/25 08:56 Dose: 60 mg Fluticasone/Vilanterol (Fluticasone/Vilanterol 200/25mcg 14 Puffs/Inhaler) 1 puffs INH DAILY [facility]; Protocol Stop: 04/21/25 10:14 Last Admin: 03/25/25 08:55 Dose: 1 puffs Hydroxyzine HCl (Hydroxyzine Hcl 25 Mg Tab) 25 mg PO DAILY PRN PRN Reason: Anxiety Stop: 04/20/25 10:46 Ertapenem (Invanz 1000mg) 1,000 mg in 10 mls @ 2 mls/min IV Q24H [facility] Stop: 04/01/25 07:59 Last Admin: 03/22/25 08:26 Dose: 2 mls/min Vancomycin HCl 1,500 mg/ (Sodium Chloride) 530 mls @ 200 mls/hr IV Q12H [facility] Stop: 04/22/25 20:59 Last Infusion: 03/25/25 12:26 Dose: Infused Cefepime HCl (Maxipime 2000mg) 2,000 mg in 20 mls @ 5 mls/min IV Q8H [facility]; Protocol Stop: 04/04/25 13:44 Lactulose (Lactulose Syrup 20 Gm/30 Ml Udc) 20 gm PO TID [facility] Stop: 04/20/25 13:59 Last Admin: 03/25/25 13:35 Dose: Not Given Levetiracetam (Levetiracetam 500 Mg Tab) 1,000 mg PO BID [facility] Stop: 04/20/25 20:59 Last Admin: 03/25/25 08:56 Dose: 1,000 mg Melatonin (Melatonin 3 Mg Tab) 3 mg PO HS [facility] Stop: 04/20/25 20:59 Last Admin: 03/24/25 21:12 Dose: 3 mg Midodrine (Midodrine Hcl 10 Mg Tab) 10 mg PO DAILY@0800,1200,1700 [facility] Stop: 04/20/25 16:59 Last Admin: 03/25/25 12:02 Dose: 10 mg Miscellaneous Information (Vancomycin Consult Active) 1 each N/A UD PRN PRN Reason: Consult Stop: 04/20/25 07:14 Nortriptyline HCl (Nortriptyline Hcl 25 Mg Cap) 25 mg PO DAILY@1999 [facility] Stop: 04/21/25 19:59 Last Admin: 03/24/25 21:13 Dose: 25 mg Ondansetron HCl (Ondansetron Inj 2 Mg/Ml 2 Ml Vial) 4 mg IV Q6H PRN PRN Reason: Nausea Stop: 04/20/25 10:46 Last Admin: 03/22/25 17:21 Dose: 4 mg Oxybutynin Chloride (Oxybutynin Chloride Xl 5 Mg Tabcr) 10 mg PO QAM [facility] Stop: 04/20/25 11:29 Last Admin: 03/25/25 08:57 Dose: 10 mg Oxycodone HCl (Oxycodone Hcl Ir 5 Mg Tab (Immediate Release)) 10 mg PO Q4H PRN PRN Reason: Mod-Sev Pain (Scale 4-10) Stop: 04/05/25 07:24 Last Admin: 03/25/25 13:40 Dose: 10 mg Pantoprazole Sodium (Pantoprazole 40 Mg Tab) 40 mg PO DAILY [facility] Stop: 04/20/25 11:29 Last Admin: 03/25/25 08:56 Dose: 40 mg Polyethylene Glycol (Polyethylene (Miralax) 17 Gm Pack) 17 gm PO DAILY PRN PRN Reason: Constipation Stop: 04/20/25 10:46 Pregabalin (Pregabalin 50 Mg Cap) 50 mg PO TID [facility] Stop: 04/22/25 13:59 Last Admin: 03/25/25 13:39 Dose: 50 mg Senna/Docusate Sodium (Docusate Sodium/Senna 50/8.6mg Tab) 2 tab PO HS [facility] Stop: 04/20/25 20:59 Last Admin: 03/24/25 21:14 Dose: Not Given Simethicone (Simethicone 80 Mg Chew) 80 mg PO TID PRN PRN Reason: gas Stop: 04/20/25 13:59 Last Admin: 03/24/25 21:12 Dose: 80 mg Umeclidinium [place] (Umeclidinium [place] 62.5mcg/Blister 7 Puffs/Inhaler) 1 puffs INH QAM [facility] Stop: 04/21/25 08:59 Last Admin: 03/25/25 08:56 Dose: 1 puffs (4) Sacral decubitus ulcer Pressure injury stage: stage 4 Qualified Code(s): L89.154 - Pressure ulcer of sacral region, stage 4 (5) Chronic pain Chronic pain type: due to trauma Qualified Code(s): G89.21 - Chronic pain due to trauma (7) Hypotension Hypotension type: unspecified hypotension type Qualified Code(s): I95.9 - Hypotension, unspecified
[2025-03-25] MEDS: CEFEPIME 2000MG 2,000 MG/20 ML SYR IV SCH (16:33)
[2025-03-25] MEDS: VANCOMYCIN LEVEL ONE (17:29)
--- NOTE | 2025-03-25 23:15 | Podiatry Progress Note ---
Date of Service March 25, 2025 Assessment & Plan (1) Pressure ulcer of left foot, stage 4: (2) Acute osteomyelitis of metatarsal bone of left foot: Plan Stage 4 pressure ulcer left lateral foot. Osteomyelitis fifth metatarsal left. - Left foot culture 03/21/2025: MRSA and Acinetobacter baumannii/nosoco. Patient will continue IV cefepime 2g q8hr and IV vancomycin 1500mg q12hr for 6 weeks (end date 05/04/25) - Offload area of ulceration with waffle boot and pillow behind the left ankle. - Dressing change to the left foot once daily with Aquacel Ag and optifoam dressing. Dressing orders placed. - X-ray left foot results reviewed without signs of osteomyelitis. - MRI results reviewed concerning for osteomyelitis of the distal aspect of the left fifth metatarsal. Patient to follow-up in the wound care center within 2 weeks of discharge. Continue offloading at all times as detailed above. Continue once daily dressing changes with Aquacel Ag and a dry sterile dressing to the left foot. Admission and Anticipated Discharge Date Admission Date: March 21, 2025 Subjective Patient seen resting comfortably in hospital bed with friends present in room. Left foot is elevated on a pillow with waffle boot in place. Patient denies nausea, vomiting, fever, chills. Planning for discharge to SNF. Patient is aware of plan for treatment of osteomyelitis with extended course of IV antibiotics. We discussed the importance of continued offloading in the area of ulceration along with regular dressing changes and close monitoring. He is aware that if current treatment plan fails to eradicate osteomyelitis and heal the wound of the lateral foot he will require at minimum partial fifth ray amputation of the left foot. All questions answered. Review of Systems Review of Systems: Denies nausea, vomiting, fever, chills. All systems reviewed and negative unless detailed above. Physical Exam Physical Exam: Left lower extremity: Left lower extremity remains abducted at the level of the hip however current offloading with pillow behind the left ankle/calf and waffle boot appears to be adequately offloading the area of ulceration. Decreased drainage from the ulceration with increased healthy granular tissue to the wound bed and decreased size of the focal portion of the wound that extends to the level of bone. No notable erythema or edema to the periwound. Results & Data Results & Data Vital Signs (Past 12 Hours) Vital Signs Temp Pulse Pulse Resp BP Pulse Ox O2 Del Method 08/18/25 20:10 36.7 C 62 18 138/100 95 Room Air 03/25/25 15:24 36.6 C 54 L 18 149/91 H 96 Room Air 03/25/25 14:52 56 L 03/25/25 11:31 36.5 C 58 L 15 138/84 96 Room Air Coding Level of Care Code 55715 SUB INP/OBS CARE 2/35MIN Diagnoses Pressure ulcer of left foot, stage 4 L89.894 Acute osteomyelitis of metatarsal bone of left foot M86.172
[2025-03-26 06:38] LABS: Hematocrit (blood only) 33.0 % (42.0-52.0); Hemoglobin 10.1 g/dl (14.0-18.0); Mean Corpuscular Hemoglobin 23.7 pg (25.0-34.0); Mean Corpuscular Volume 77.5 fL (80.0-100.0); Platelet Count 200 K/uL (130-400); RDW Standard Deviation 46.5 fL (36.4-46.3); Red Blood Count 4.26 M/uL (4.70-6.10); White Blood Count 6.56 K/ul (4.8-10.8)
[2025-03-26 06:55] LABS: Anion Gap 5.0 (3-11); Blood Urea Nitrogen 13.0 mg/dl (6-23); Calcium 8.9 mg/dl (8.6-10.3); Carbon Dioxide 30.0 mmol/L (21-32); Chloride 105.0 mmol/L (98-107); Creatinine Clr Calc Pharmacy 269.4 ml/min; Glucose 113.0 mg/dl (70-99(Fasting)); Potassium 3.5 mmol/L (3.5-5.1); Sodium 140.0 mmol/L (136-145)
--- NOTE | 2025-03-26 12:19 | Hospitalist Progress Note ---
Date of Service March 26, 2025 Assessment & Plan (1) Complicated urinary tract infection: (2) Suprapubic catheter: (3) Pressure ulcer of left foot, stage 4: (4) Sacral decubitus ulcer: (5) Chronic pain: (6) Hypokalemia: (7) Hypotension: (8) Bradycardia: (9) Quadriplegia: (10) Autonomic dysreflexia: (11) History of pulmonary embolism: (12) COPD (chronic obstructive pulmonary disease): (13) GERD (gastroesophageal reflux disease): (14) Seizure disorder: Plan 49 year old male with PMH significant for paraplegia, autonomic dysreflexia, neurogenic bladder with suprapubic cath, history of PE on anticoagulation, chronic sacral ulcer with history of osteomyelitis and cellulitis and multiple debridements, history of complicated UTI, history of septic shock, anxiety disorder, COPD, history of polysubstance abuse, chronic pain, seizure disorder, history of leaving AMA who presented to the ED on 03/21/2025 with weakness, chills, nausea without vomiting x5 days and is admitted for complicated UTI. Complicated UTI due to suprapubic catheter Patient did not meet sepsis criteria on admission Urine culture grew acinetobacter baumannii/nosoco Plan: -ID consulted and discussed with Dr Kilgore via TT on 03/25: recommends IV cefepime 2g q8hr (instead of meropenem) and IV vancomycin 1500mg q12hr for 6 weeks (end date 05/04/25) -Continue oxybutynin -PICC nurse unable to place line due to inadequate vessel size - will reattempt once dispo is more certain -CM following for placement at [facility]/ if preferred facilities cannot accept Stage IV pressure ulcer of left foot Foot MRI revealed probable osteomyelitis Wound culture grew staph aureus MRSA Podiatry consulted and recommends: -Offload with waffle boot and pillow -Daily dressing changes per orders -Treatment with 6 weeks IV antibiotics as above Sacral decubitus ulcer Chronic wound with history of multiple episodes of osteomyelitis and surgical debridement CTAP reveals focal soft tissue defect and erosion of distal sacrum and coccyx - stable Continue wound care Turn and reposition q2hr Chronic Pain Syndrome Chronic pain and history of polysubstance abuse Admitting drug screen positive for marijuana only Patient trialed suboxone previously and stopped taking due to constipation side effect Reports severe burning pain all over body Plan: -Continue baclofen and nortriptyline -Lyrica increased to 50mg tid this admission -Pain management added duloxetine 60 mg daily -Breakthrough pain control with oxycodone 10mg q4hr PRN Chronic Hypotension Bradycardia Autonomic dysreflexia Chronic hypotension and bradycardia secondary to autonomic dysreflexia in setting of quadriplegia Continue midodrine tid Quadriplegia Continue home bowel regimen History of PE Continue Eliquis COPD Continue inhalers Seizure disorder Continue keppra GERD Continue PPI DVT Prophylaxis: on Eliquis Code Status: FULL CODE PCP: Chay Aguilar Disposition: anticipate dc in next 1-2 days pending SNF acceptance Patient seen in collaboration with Dr Vela. Please see addendum. I spent a total of 35 minutes coordinating, documenting and providing care for this patient excluding time spent in the performance of separately billed services or time spent by another provider/QHP. Admission and Anticipated Discharge Date Admission Date: March 21, 2025 Supervising Physician Co-Signing Physician Notes Patient is seen and examined at bedside. States feeling well today, offers no complaints. On exam patient is well-built, nourished, no apparent distress, normocephalic atraumatic, EOMI, normal breath sounds, clear to auscultation, S1-S2, no murmur, no pedal edema, abdomen soft, nontender, normal bowel sounds, alert, awake, oriented,+ paraplegia Complicated urinary tract infection Stage IV left foot ulceration; concerning for possible osteomyelitis Sacral decubitus ulcer Appreciate ID input Continue IV cefepime, vancomycin to complete 6-week course Continue wound care I personally interviewed and examined the patient at bedside. I have reviewed the advanced practitioner's documentation on the date of service referred in note and agree with plan. Patient's care is coordinated with Karol VASQUEZ. Please refer to the documentation above for details of patient's presentation and for discussion of other issues. I spent a total [id number] coordinating, documenting, and providing care for this patient excluding time spent in the performance of separately billed services or time spent by another provider/QHP. Subjective Patient seen resting in bed Reports no acute concerns Says pain is controlled Denies chest pain, SOB, abdominal pain, N/V/D Review of Systems Review of Systems: All systems reviewed & are unremarkable except as noted in Subjective Physical Exam Physical Exam: General/Psych: WD/WN, laying in bed, drowsy Head: normocephalic, atraumatic Eyes: normal inspection, PERRL, conjunctivae pink ENT: external ear and nose normal, oropharynx normal Neck: normal visual inspection, trachea midline Respiratory: normal respiratory effort, lungs clear to auscultation, no wheeze/rales/rhonchi, no accessory muscle use Cardiovascular: regular rate and rhythm, no murmur/rub/gallop, no JVD Extremities: no cyanosis or clubbing, normal peripheral pulses, no BLE edema Abdomen/GI: normal bowel sounds, soft, nontender Neurologic/MSK: A+Ox3, paraplegia - able to move BUE Skin: no rashes, normal color, warm and dry; unable to assess wounds due to dressings Results & Data Results & Data Vital Signs (Past 12 Hours) Vital Signs Temp Pulse Resp BP Pulse Ox O2 Del Method 03/26/25 11:48 36.6 C 65 18 124/85 95 Room Air 03/26/25 07:15 36.5 C 55 L 18 95/60 L 94 Room Air 03/26/25 02:19 36.5 C 57 L 18 108/78 95 Room Air Laboratory Results Short CBC 03/26/25 Range/Units 06:22 WBC 6.56 (4.8-10.8) K/ul Hgb 10.1 L (14.0-18.0) g/dl Hct 33.0 L (42.0-52.0) % Plt Count 200 (130-400) K/uL BMP 03/26/25 06:21 Sodium 140 Potassium 3.5 Chloride 105 Carbon Dioxide 30 BUN 13 Creatinine 0.37 L Glucose 113 H Calcium 8.9 I have independently reviewed and interpreted patient's labs including CBC and B MP Medications Administered Current Inpatient Medications Acetaminophen (Acetaminophen 325 Mg Tab) 650 mg PO Q4H PRN PRN Reason: Pain or Fever Stop: 04/20/25 10:46 Last Admin: 03/22/25 21:22 Dose: 650 mg Apixaban (Apixaban 5 Mg Tablet) 5 mg PO BID [facility] Stop: 04/20/25 20:59 Last Admin: 03/26/25 08:10 Dose: 5 mg Baclofen (Baclofen 20 Mg Tab) 20 mg PO TID [facility] Stop: 04/20/25 13:59 Last Admin: 03/26/25 08:10 Dose: 20 mg Bisacodyl (Bisacodyl 10 Mg Supp) 10 mg [place] BID [facility]AL[facility] Stop: 04/20/25 20:59 Last Admin: 03/26/25 08:20 Dose: Not Given Duloxetine HCl (Duloxetine Hcl 60 Mg Cap) 60 mg PO QAM [facility] Stop: 04/21/25 08:59 Last Admin: 03/26/25 08:09 Dose: 60 mg Fluticasone/Vilanterol (Fluticasone/Vilanterol 200/25mcg 14 Puffs/Inhaler) 1 puffs INH DAILY [facility]; Protocol Stop: 04/21/25 10:14 Last Admin: 03/26/25 08:09 Dose: 1 puffs Hydroxyzine HCl (Hydroxyzine Hcl 25 Mg Tab) 25 mg PO DAILY PRN PRN Reason: Anxiety Stop: 04/20/25 10:46 Ertapenem (Invanz 1000mg) 1,000 mg in 10 mls @ 2 mls/min IV Q24H [facility] Stop: 04/01/25 07:59 Last Admin: 03/22/25 08:26 Dose: 2 mls/min Vancomycin HCl 1,500 mg/ (Sodium Chloride) 530 mls @ 200 mls/hr IV Q12H [facility] Stop: 04/22/25 20:59 Last Admin: 03/26/25 08:15 Dose: 200 mls/hr Cefepime HCl (Maxipime 2000mg) 2,000 mg in 20 mls @ 5 mls/min IV Q8H [facility]; Protocol Stop: 04/04/25 15:59 Last Admin: 03/26/25 08:14 Dose: 5 mls/min Lactulose (Lactulose Syrup 20 Gm/30 Ml Udc) 20 gm PO TID [facility] Stop: 04/20/25 13:59 Last Admin: 03/26/25 08:20 Dose: Not Given Levetiracetam (Levetiracetam 500 Mg Tab) 1,000 mg PO BID [facility] Stop: 04/20/25 20:59 Last Admin: 03/26/25 08:12 Dose: 1,000 mg Melatonin (Melatonin 3 Mg Tab) 3 mg PO HS [facility] Stop: 04/20/25 20:59 Last Admin: 03/25/25 20:31 Dose: 3 mg Midodrine (Midodrine Hcl 10 Mg Tab) 10 mg PO DAILY@0800,1200,1700 [facility] Stop: 04/20/25 16:59 Last Admin: 03/26/25 08:10 Dose: 10 mg Miscellaneous Information (Vancomycin Consult Active) 1 each N/A UD PRN PRN Reason: Consult Stop: 04/20/25 07:14 Nortriptyline HCl (Nortriptyline Hcl 25 Mg Cap) 25 mg PO DAILY@1999 [facility] Stop: 04/21/25 19:59 Last Admin: 03/25/25 20:30 Dose: 25 mg Ondansetron HCl (Ondansetron Inj 2 Mg/Ml 2 Ml Vial) 4 mg IV Q6H PRN PRN Reason: Nausea Stop: 04/20/25 10:46 Last Admin: 03/22/25 17:21 Dose: 4 mg Oxybutynin Chloride (Oxybutynin Chloride Xl 5 Mg Tabcr) 10 mg PO QAM [facility] Stop: 04/20/25 11:29 Last Admin: 03/26/25 08:11 Dose: 10 mg Oxycodone HCl (Oxycodone Hcl Ir 5 Mg Tab (Immediate Release)) 10 mg PO Q4H PRN PRN Reason: Mod-Sev Pain (Scale 4-10) Stop: 04/05/25 07:24 Last Admin: 03/26/25 09:37 Dose: 10 mg Pantoprazole Sodium (Pantoprazole 40 Mg Tab) 40 mg PO DAILY [facility] Stop: 04/20/25 11:29 Last Admin: 03/26/25 09:37 Dose: 40 mg Polyethylene Glycol (Polyethylene (Miralax) 17 Gm Pack) 17 gm PO DAILY PRN PRN Reason: Constipation Stop: 04/20/25 10:46 Pregabalin (Pregabalin 50 Mg Cap) 50 mg PO TID [facility] Stop: 04/22/25 13:59 Last Admin: 03/26/25 08:17 Dose: 50 mg Senna/Docusate Sodium (Docusate Sodium/Senna 50/8.6mg Tab) 2 tab PO HS [facility] Stop: 04/20/25 20:59 Last Admin: 03/25/25 20:30 Dose: 2 tab Simethicone (Simethicone 80 Mg Chew) 80 mg PO TID PRN PRN Reason: gas Stop: 04/20/25 13:59 Last Admin: 03/24/25 21:12 Dose: 80 mg Umeclidinium [place] (Umeclidinium [place] 62.5mcg/Blister 7 Puffs/Inhaler) 1 puffs INH QAM [facility] Stop: 04/21/25 08:59 Last Admin: 03/26/25 08:15 Dose: 1 puffs (4) Sacral decubitus ulcer Pressure injury stage: stage 4 Qualified Code(s): L89.154 - Pressure ulcer of sacral region, stage 4 (5) Chronic pain Chronic pain type: due to trauma Qualified Code(s): G89.21 - Chronic pain due to trauma (7) Hypotension Hypotension type: unspecified hypotension type Qualified Code(s): I95.9 - Hypotension, unspecified
[2025-03-27 05:53] LABS: Hematocrit (blood only) 34.3 % (42.0-52.0); Hemoglobin 10.6 g/dl (14.0-18.0); Mean Corpuscular Hemoglobin 24.0 pg (25.0-34.0); Mean Corpuscular Volume 77.8 fL (80.0-100.0); Platelet Count 222 K/uL (130-400); RDW Standard Deviation 47.7 fL (36.4-46.3); Red Blood Count 4.41 M/uL (4.70-6.10); White Blood Count 7.29 K/ul (4.8-10.8)
[2025-03-27 06:14] LABS: Anion Gap 7.0 (3-11); Blood Urea Nitrogen 12.0 mg/dl (6-23); Calcium 9.0 mg/dl (8.6-10.3); Carbon Dioxide 26.0 mmol/L (21-32); Chloride 107.0 mmol/L (98-107); Creatinine Clr Calc Pharmacy 237.4 ml/min; Glucose 110.0 mg/dl (70-99(Fasting)); Potassium 3.4 mmol/L (3.5-5.1); Sodium 140.0 mmol/L (136-145)
[2025-03-27] MEDS: POTASSIUM CHLORIDE CRTAB 20 MEQ TABCR PO STA (09:10)
[2025-03-27] MEDS: SODIUM CHLORIDE 0.9% 1,000 ML IV SCH (09:53)
--- NOTE | 2025-03-27 12:58 | Hospitalist Progress Note ---
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: (11) History of pulmonary embolism: (12) COPD (chronic obstructive pulmonary disease): (13) GERD (gastroesophageal reflux disease): (14) Seizure disorder: Plan 49 year old male with PMH significant for paraplegia, autonomic dysreflexia, neurogenic bladder with suprapubic cath, history of PE on anticoagulation, chronic sacral ulcer with history of osteomyelitis and cellulitis and multiple debridements, history of complicated UTI, history of septic shock, anxiety disorder, COPD, history of polysubstance abuse, chronic pain, seizure disorder, history of leaving AMA who presented to the ED on 03/21/2025 with weakness, chills, nausea without vomiting x5 days and is admitted for complicated UTI. Complicated UTI due to suprapubic catheter Patient did not meet sepsis criteria on admission Urine culture grew acinetobacter baumannii/nosoco Plan: -ID consulted and discussed with Dr Kilgore via TT on 03/25: recommends IV cefepime 2g q8hr (instead of meropenem) and IV vancomycin 1500mg q12hr for 6 weeks (end date 05/04/25) -Continue oxybutynin -PICC nurse unable to place line due to inadequate vessel size - will reattempt once dispo is more certain -CM following for placement at [facility]/ if facilities do not accept Stage IV pressure ulcer of left foot Foot MRI revealed probable osteomyelitis Wound culture grew staph aureus MRSA Podiatry consulted and recommends: -Offload with waffle boot and pillow -Daily dressing changes per orders -Treatment with 6 weeks IV antibiotics as above Sacral decubitus ulcer Chronic wound with history of multiple episodes of osteomyelitis and surgical debridement CTAP reveals focal soft tissue defect and erosion of distal sacrum and coccyx - stable Continue wound care Turn and reposition q2hr Chronic Pain Syndrome Chronic pain and history of polysubstance abuse Admitting drug screen positive for marijuana only Patient trialed suboxone previously and stopped taking due to constipation side effect Reports full body burning pain is controlled on below regimen Plan: -Continue baclofen and nortriptyline -Lyrica increased to 50mg tid this admission -Pain management added duloxetine 60 mg daily this admission -Breakthrough pain control with oxycodone 10mg q4hr PRN Chronic Hypotension Bradycardia Autonomic dysreflexia Chronic hypotension and bradycardia secondary to autonomic dysreflexia in setting of spinal cord injury Continue midodrine tid IVF x1L due to BP 73/45 this am Paraplegia Continue home bowel regimen History of PE Continue Eliquis COPD Continue inhalers Seizure disorder Continue keppra GERD Continue PPI DVT Prophylaxis: on Eliquis Code Status: FULL CODE PCP: Chay Aguilar Disposition: medically cleared for discharge pending SNF acceptance Patient seen in collaboration with Dr Vela. Please see addendum. I spent a total of 35 minutes coordinating, documenting and providing care for this patient excluding time spent in the performance of separately billed services or time spent by another provider/QHP. Admission and Anticipated Discharge Date Admission Date: March 21, 2025 Supervising Physician Co-Signing Physician Notes Patient is seen and examined at bedside. Was noted to be hypotensive this morning, blood pressure improved after IV fluids. Patient denies any dizziness. He is drowsy this morning likely due to poor sleep overnight. Has refused lactulose per RN. On exam patient is well-built, nourished, no apparent distress, normocephalic atraumatic, EOMI, normal breath sounds, clear to auscultation, S1-S2, no murmur, no pedal edema, abdomen soft, nontender, normal bowel sounds, alert, awake, oriented,+ paraplegia Complicated urinary tract infection Stage IV left foot ulceration; concerning for possible osteomyelitis Sacral decubitus ulcer Appreciate ID input Continue IV cefepime, vancomycin to complete 6-week course Continue wound care Blood pressure improved with IV fluids Will check ammonia levels tomorrow Needs PICC line prior to discharge Waiting placement I personally interviewed and examined the patient at bedside. I have reviewed the advanced practitioner's documentation on the date of service referred in note and agree with plan. Patient's care is coordinated with Karol VASQUEZ. Please refer to the documentation above for details of patient's presentation and for discussion of other issues. I spent a total [id number] coordinating, documenting, and providing care for this patient excluding time spent in the performance of separately billed services or time spent by another provider/QHP. Subjective Patient seen resting in bed Hypotensive this morning but asymptomatic Reports no acute concerns Says pain is controlled Denies chest pain, SOB, abdominal pain, N/V/D Review of Systems Review of Systems: All systems reviewed & are unremarkable except as noted in Subjective Physical Exam Physical Exam: General/Psych: WD/WN, laying in bed, NAD, conversing easily Head: normocephalic, atraumatic Eyes: normal inspection, PERRL, conjunctivae pink ENT: external ear and nose normal, oropharynx normal Neck: normal visual inspection, trachea midline Respiratory: normal respiratory effort, lungs clear to auscultation, no wheeze/rales/rhonchi, no accessory muscle use Cardiovascular: regular rate and rhythm, no murmur/rub/gallop, no JVD Extremities: no cyanosis or clubbing, normal peripheral pulses, no BLE edema Abdomen/GI: normal bowel sounds, soft, nontender Neurologic/MSK: A+Ox3, paraplegia - able to move BUE Skin: no rashes, normal color, warm and dry; unable to assess wounds due to dressings Results & Data Results & Data Vital Signs (Past 12 Hours) Vital Signs Temp Pulse Pulse Resp BP BP BP 03/27/25 10:50 36.5 C 52 L 15 118/81 03/27/25 10:04 84/63 L 03/27/25 09:15 60 17 03/27/25 09:09 73/45 L 03/27/25 09:09 73/45 L 03/27/25 09:08 76/52 L 03/27/25 08:54 66 12 03/27/25 08:03 56 L 15 03/27/25 07:36 104/62 03/27/25 07:36 104/62 03/27/25 07:35 36.8 C 55 L 17 104/62 03/27/25 07:24 56 L 12 03/27/25 07:03 57 L 15 03/27/25 07:00 59 L 03/27/25 04:49 93/62 L 03/27/25 03:56 37.3 C 56 L 18 173/111 H Pulse Ox O2 Del Method 03/27/25 10:50 97 Room Air 03/27/25 10:04 03/27/25 09:15 03/27/25 09:09 03/27/25 09:09 03/27/25 09:08 03/27/25 08:54 03/27/25 08:03 03/27/25 07:36 03/27/25 07:36 03/27/25 07:35 96 Room Air 03/27/25 07:24 03/27/25 07:03 03/27/25 07:00 03/27/25 04:49 03/27/25 03:56 97 Room Air Laboratory Results Short CBC 03/27/25 Range/Units 05:33 WBC 7.29 (4.8-10.8) K/ul Hgb 10.6 L (14.0-18.0) g/dl Hct 34.3 L (42.0-52.0) % Plt Count 222 (130-400) K/uL BMP 03/27/25 05:33 Sodium 140 Potassium 3.4 L Chloride 107 Carbon Dioxide 26 BUN 12 Creatinine 0.42 L Glucose 110 H Calcium 9.0 I have independently reviewed and interpreted patient's labs including CBC and BMP. Medications Administered Current Inpatient Medications Acetaminophen (Acetaminophen 325 Mg Tab) 650 mg PO Q4H PRN PRN Reason: Pain or Fever Stop: 04/20/25 10:46 Last Admin: 03/22/25 21:22 Dose: 650 mg Apixaban (Apixaban 5 Mg Tablet) 5 mg PO BID ROSALES Stop: 04/20/25 20:59 Last Admin: 03/27/25 09:13 Dose: 5 mg Baclofen (Baclofen 20 Mg Tab) 20 mg PO TID ROSALES Stop: 04/20/25 13:59 Last Admin: 03/27/25 09:14 Dose: 20 mg Bisacodyl (Bisacodyl 10 Mg Supp) 10 mg MO BID ROSALES Stop: 04/20/25 20:59 Last Admin: 03/27/25 09:14 Dose: 10 mg Duloxetine HCl (Duloxetine Hcl 60 Mg Cap) 60 mg PO QAM ROSALES Stop: 04/21/25 08:59 Last Admin: 03/27/25 09:14 Dose: 60 mg Fluticasone/Vilanterol (Fluticasone/Vilanterol 200/25mcg 14 Puffs/Inhaler) 1 puffs INH DAILY ROSALES; Protocol Stop: 04/21/25 10:14 Last Admin: 03/27/25 09:14 Dose: 1 puffs Hydroxyzine HCl (Hydroxyzine Hcl 25 Mg Tab) 25 mg PO DAILY PRN PRN Reason: Anxiety Stop: 04/20/25 10:46 Ertapenem (Invanz 1000mg) 1,000 mg in 10 mls @ 2 mls/min IV Q24H [facility]ALES Stop: 04/01/25 07:59 Last Admin: 03/22/25 08:26 Dose: 2 mls/min Vancomycin HCl 1,500 mg/ (Sodium Chloride) 530 mls @ 200 mls/hr IV Q12H [facility]ALES Stop: 04/22/25 20:59 Last Infusion: 03/27/25 12:17 Dose: Infused Cefepime HCl (Maxipime 2000mg) 2,000 mg in 20 mls @ 5 mls/min IV Q8H [facility]; Protocol Stop: 04/04/25 15:59 Last Admin: 03/27/25 09:53 Dose: 5 mls/min Sodium Chloride (Nss) 1,000 mls @ 125 mls/hr IV .Q8H [facility]ALES Stop: 03/27/25 17:14 Last Admin: 03/27/25 09:53 Dose: 125 mls/hr Lactulose (Lactulose Syrup 20 Gm/30 Ml Udc) 20 gm PO TID ROSALES Stop: 04/20/25 13:59 Last Admin: 03/27/25 09:24 Dose: Not Given Levetiracetam (Levetiracetam 500 Mg Tab) 1,000 mg PO BID ROSALES Stop: 04/20/25 20:59 Last Admin: 03/27/25 09:13 Dose: 1,000 mg Melatonin (Melatonin 3 Mg Tab) 3 mg PO HS ROSALES Stop: 04/20/25 20:59 Last Admin: 03/26/25 20:57 Dose: 3 mg Midodrine (Midodrine Hcl 10 Mg Tab) 10 mg PO DAILY@0800,1200,1700 [facility] Stop: 04/20/25 16:59 Last Admin: 03/27/25 10:53 Dose: 10 mg Miscellaneous Information (Vancomycin Consult Active) 1 each N/A UD PRN PRN Reason: Consult Stop: 04/20/25 07:14 Nortriptyline HCl (Nortriptyline Hcl 25 Mg Cap) 25 mg PO DAILY@1999 [facility] Stop: 04/21/25 19:59 Last Admin: 03/26/25 20:58 Dose: 25 mg Ondansetron HCl (Ondansetron Inj 2 Mg/Ml 2 Ml Vial) 4 mg IV Q6H PRN PRN Reason: Nausea Stop: 04/20/25 10:46 Last Admin: 03/22/25 17:21 Dose: 4 mg Oxybutynin Chloride (Oxybutynin Chloride Xl 5 Mg Tabcr) 10 mg PO QAM [facility] Stop: 04/20/25 11:29 Last Admin: 03/27/25 09:11 Dose: 10 mg Oxycodone HCl (Oxycodone Hcl Ir 5 Mg Tab (Immediate Release)) 10 mg PO Q4H PRN PRN Reason: Mod-Sev Pain (Scale 4-10) Stop: 04/05/25 07:24 Last Admin: 03/27/25 10:53 Dose: 10 mg Pantoprazole Sodium (Pantoprazole 40 Mg Tab) 40 mg PO DAILY [facility] Stop: 04/20/25 11:29 Last Admin: 03/27/25 09:15 Dose: 40 mg Polyethylene Glycol (Polyethylene (Miralax) 17 Gm Pack) 17 gm PO DAILY PRN PRN Reason: Constipation Stop: 04/20/25 10:46 Pregabalin (Pregabalin 50 Mg Cap) 50 mg PO TID [facility] Stop: 04/22/25 13:59 Last Admin: 03/27/25 09:15 Dose: 50 mg Senna/Docusate Sodium (Docusate Sodium/Senna 50/8.6mg Tab) 2 tab PO HS [facility] Stop: 04/20/25 20:59 Last Admin: 03/26/25 20:57 Dose: 2 tab Simethicone (Simethicone 80 Mg Chew) 80 mg PO TID PRN PRN Reason: gas Stop: 04/20/25 13:59 Last Admin: 03/24/25 21:12 Dose: 80 mg Umeclidinium [place] (Umeclidinium [place] 62.5mcg/Blister 7 Puffs/Inhaler) 1 puffs INH QAM [facility] Stop: 04/21/25 08:59 Last Admin: 03/27/25 09:14 Dose: 1 puffs (4) Sacral decubitus ulcer Pressure injury stage: stage 4 Qualified Code(s): L89.154 - Pressure ulcer of sacral region, stage 4 (5) Chronic pain Chronic pain type: due to trauma Qualified Code(s): G89.21 - Chronic pain due to trauma (7) Hypotension Hypotension type: unspecified hypotension type Qualified Code(s): I95.9 - Hypotension, unspecified
[2025-03-28 05:55] LABS: Hematocrit (blood only) 33.2 % (42.0-52.0); Hemoglobin 10.4 g/dl (14.0-18.0); Mean Corpuscular Hemoglobin 24.2 pg (25.0-34.0); Mean Corpuscular Volume 77.4 fL (80.0-100.0); Platelet Count 224 K/uL (130-400); RDW Standard Deviation 47.8 fL (36.4-46.3); Red Blood Count 4.29 M/uL (4.70-6.10); White Blood Count 6.62 K/ul (4.8-10.8)
[2025-03-28 06:11] LABS: Anion Gap 5.0 (3-11); Calcium 9.1 mg/dl (8.6-10.3); Carbon Dioxide 27.0 mmol/L (21-32); Chloride 108.0 mmol/L (98-107); Potassium 3.8 mmol/L (3.5-5.1); Sodium 140.0 mmol/L (136-145)
[2025-03-28 06:17] LABS: Blood Urea Nitrogen 10.0 mg/dl (6-23); Creatinine Clr Calc Pharmacy 269.4 ml/min; Glucose 88.0 mg/dl (70-99(Fasting))
--- NOTE | 2025-03-28 12:04 | Hospitalist Progress Note ---
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: (11) History of pulmonary embolism: (12) COPD (chronic obstructive pulmonary disease): (13) GERD (gastroesophageal reflux disease): (14) Seizure disorder: Plan This is a 49 year old male with PMH significant for paraplegia, autonomic dysreflexia, neurogenic bladder with suprapubic cath, history of PE on anticoagulation, chronic sacral ulcer with history of osteomyelitis and cellulitis and multiple debridements, history of complicated UTI, history of septic shock, anxiety disorder, COPD, history of polysubstance abuse, chronic pain, seizure disorder, history of leaving AMA who presented to the ED on 03/21/2025 with weakness, chills, nausea without vomiting x5 days and is admitted for complicated UTI. Complicated UTI due to suprapubic catheter Patient did not meet sepsis criteria on admission Urine culture grew acinetobacter baumannii/nosoco Plan: -ID consulted and discussed with Dr Kilgore via TT on 03/25: recommends IV cefepime 2g q8hr (instead of meropenem) and IV vancomycin 1500mg q12hr for 6 weeks (end date 05/04/25) -Continue oxybutynin -Multiple attempts by IV team made for PICC line placement, unable to place due to inadequate vessel size - gen surg consulted for tunneled catheter vs port placement. Will hold Eliquis tmrw AM - following for placement at [facility]/ if facilities do not accept Stage IV pressure ulcer of left foot Foot MRI revealed probable osteomyelitis Wound culture grew staph aureus MRSA Podiatry consulted and recommends: -Offload with waffle boot and pillow -Daily dressing changes per orders -Treatment with 6 weeks IV antibiotics as above Sacral decubitus ulcer Chronic wound with history of multiple episodes of osteomyelitis and surgical debridement CTAP reveals focal soft tissue defect and erosion of distal sacrum and coccyx - stable Continue wound care Turn and reposition q2hr Chronic Pain Syndrome Chronic pain and history of polysubstance abuse Admitting drug screen positive for marijuana only Patient trialed Suboxone previously and stopped taking due to constipation side effect Reports full body burning pain is controlled on below regimen Plan: -Continue baclofen and nortriptyline -Lyrica increased to 50mg tid this admission -Pain management added duloxetine 60 mg daily this admission -Breakthrough pain control with oxycodone 10mg q4hr PRN Chronic Hypotension Bradycardia Autonomic dysreflexia Chronic hypotension and bradycardia secondary to autonomic dysreflexia in setting of spinal cord injury Continue midodrine tid Paraplegia Continue home bowel regimen (last bowel movement 03/27) History of PE Continue Eliquis COPD Continue inhalers Seizure disorder Continue keppra GERD Continue PPI DVT Prophylaxis: on Eliquis Code Status: FULL CODE PCP: Chay Aguilar Disposition: medically cleared for discharge pending SNF acceptance Patient seen in collaboration with Dr Vela. Please see addendum. I spent a total of 45 minutes coordinating, documenting and providing care for this patient excluding time spent in the performance of separately billed services or time spent by another provider/QHP. Admission and Anticipated Discharge Date Admission Date: March 21, 2025 Supervising Physician Co-Signing Physician Notes Patient is seen and examined at bedside. Blood pressure variable. Patient offers no new complaints. Waiting for placement. On exam patient is well-built, nourished, no apparent distress, normocephalic atraumatic, EOMI, normal breath sounds, clear to auscultation, S1-S2, no murmur, no pedal edema, abdomen soft, nontender, normal bowel sounds, alert, awake, oriented,+ paraplegia Complicated urinary tract infection Stage IV left foot ulceration; concerning for possible osteomyelitis Sacral decubitus ulcer Appreciate ID input Continue IV cefepime, vancomycin to complete 6-week course Continue wound care Continue IV fluids as needed Needs PICC line/port/tunnel catheter prior to discharge for IV antibiotics Waiting placement Agree with holding Eliquis given need for possible port placement Will utilize IV Lovenox for DVT prophylaxis for now I personally interviewed and examined the patient at bedside. I have reviewed the advanced practitioner's documentation on the date of service referred in note and agree with plan. Patient's care is coordinated with Mitzi Miles PA-C . Please refer to the documentation above for details of patient's presentation and for discussion of other issues. I spent a total [id number] coordinating, documenting, and providing care for this patient excluding time spent in the performance of separately billed services or time spent by another provider/QHP. Subjective Patient seen resting in bed Hypotensive this morning but asymptomatic, talking with his family on the phone No acute concerns or changes overnight, pain is controlled Denies chest pain, SOB, abdominal pain, N/V/D Review of Systems Review of Systems: At least ten systems reviewed and negative except as noted in the HPI. Physical Exam Physical Exam: Gen: WD/WN, NAD, resting in bed talking on the phone, A&Ox3 HEENT: Normocephalic, atraumatic Lung: Clear to Auscultation bilaterally Heart: Regular rate, regular rhythm Abdomen: Soft, NT, ND +BS x 4 : + Sanchez Neuro/extremities: + Paraplegic, able to move BUE, no changes Skin: Warm, no rash, sacral and L foot wounds with dressings c/d/i Results & Data Results & Data Vital Signs (Past 12 Hours) Vital Signs Temp Pulse Pulse Resp BP BP Pulse Ox 03/28/25 11:25 36.8 C 65 20 123/84 95 03/28/25 07:04 36.6 C 59 L 15 85/51 L 95 03/28/25 07:00 67 03/28/25 02:52 36.4 C L 64 18 132/93 97 O2 Del Method 03/28/25 11:25 Room Air 03/28/25 07:04 Room Air 03/28/25 07:00 03/28/25 02:52 Room Air Laboratory Results Short CBC 03/28/25 Range/Units 05:32 WBC 6.62 (4.8-10.8) K/ul Hgb 10.4 L (14.0-18.0) g/dl Hct 33.2 L (42.0-52.0) % Plt Count 224 (130-400) K/uL BMP 03/28/25 05:32 Sodium 140 Potassium 3.8 Chloride 108 H Carbon Dioxide 27 BUN 10 Creatinine 0.37 L Glucose 88 Calcium 9.1 Diagnostic Findings Abdomen/Pelvis CT 03/21/25 03:49 EXAM: CT abd pelvis IV con only CLINICAL HISTORY: lower abd to pelvic pain, decub, uti TECHNIQUE: Contiguous axial images were obtained from the level of the diaphragm to the pubic symphysis with intravenous contrast. Coronal and sagittal reconstructions were likewise performed and indicated to increase the sensitivity for detecting clinically relevant pathology. If IV contrast material had not been administered, the likelihood of detecting abnormalities relevant to the patient's condition would have been substantially decreased. CT scan was performed according to ALARA (as low as reasonable achievable). COMPARISON: 04:08:00 [employer]PERATIONS SPECIALIST FINDINGS: Few atelectatic bands are noted involving bilateral lung bases. The liver is normal in size and attenuation. No focal liver lesions are seen. There is no intra or extrahepatic biliary ductal dilatation. Hepatic vasculature is patent. Status post-cholecystectomy. The spleen, pancreas, and adrenal glands are unremarkable. The kidneys are normal in size and attenuation. There is no hydronephrosis or perinephric fat stranding. Right kidneys are 1-2 mm sized concretion in upper calyx. Left kidney shows 8 mm and 12 mm in upper calyx and 5 mm in lower calyx. The ureters are normal in caliber and no ureteral calculi are seen. The bladder is normal in contour. Pelvic viscera are unremarkable. No focal or diffuse bowel wall thickening or evidence of bowel obstruction is identified. No evidence of inflamed appendix. Abdominal and pelvic vasculature is patent. No adenopathy or fluid collections are seen. No aggressive appearing osseous lesions are identified. Evidence of sacral decubitus ulcer with focal soft tissue defect and erosion of distal sacrum and coccyx is seen. Colonic fecal and gaseous distension IMPRESSION: 1. Evidence of sacral decubitus ulcer with focal soft tissue defect and erosion of distal sacrum and coccyx is seen.-stable. 2. Bilateral non-obstructing renal calculi. 3. Colonic fecal and gaseous distension- possibility of constipation 4. No other new interval abnormality since prior study. Electronically signed by Justin Melgar 03-21-2025 06:24 AM Chest X-Ray 03/21/25 03:53 EXAM: XR chest 1V portable CLINICAL HISTORY: weak, chills TECHNIQUE: An X-ray image of the chest is obtained in AP projection. COMPARISON: 10/06/2024. FINDINGS: Pulmonary Parenchyma: Lungs are clear bilaterally. No evidence of consolidation, collapse, or focal opacities. Stable prominent bilateral parahilar markings. No evidence of pleural effusion or pleural thickening. Heart and Mediastinum: Heart size and shape are normal. No mediastinal widening or masses. No hilar or mediastinal lymphadenopathy. Bony Thorax: Bony thorax appears intact without fractures or deformities. Soft Tissues: Soft tissues overlying the chest wall are unremarkable. IMPRESSION: 1. No evidence of consolidation or pleural effusion. 2. No interval changes. Electronically signed by Luke Dunne 03-21-2025 05:33 AM Foot X-Ray 03/21/25 09:48 XR foot LT min 3V routine CLINICAL HISTORY: wound eval osteomyelitis COMPARISON: None FINDINGS: The bones are osteopenic. No acute fractures are visualized. No destructive lesions are visualized on conventional radiographic imaging. There is no gas within soft tissues. IMPRESSION: 1. Osteopenia 2. No acute fractures 2. No conventional radiographic evidence of acute osteolysis ACT 112: Negative or not required by law. Electronically signed by: Luisito Cotto M.D. 03/21/2025 10:31 AM Foot MRI 03/21/25 13:01 Exam(s): MRI LEFT FOOT Without Contrast EXAM: MR Left Lower Extremity Without Intravenous Contrast, Foot CLINICAL HISTORY: Reason for exam: Wound with exposed bone 5th metatarsal left. TECHNIQUE: Multiplanar magnetic resonance images of the left foot without intravenous contrast. COMPARISON: Plain films from 03/21/2025 FINDINGS: Bones/joints: There is increased signal on T2 fat sat and STIR involving the distal 1.6 cm of the 5th metatarsal with soft tissue ulceration down within a few mm of the bone. The midfoot alignment is normal. No other areas of abnormal bone marrow signal are identified. No acute fracture or dislocation is seen. Soft tissues: There is subcutaneous edema of the dorsum of the foot and lateral aspect of the distal foot. No abscess is identified. IMPRESSION: 1. There is subcutaneous edema of the dorsum of the foot and lateral aspect of the distal foot. No abscess is identified. 2. There is increased signal on T2 fat sat and STIR involving the distal 1.6 cm of the 5th metatarsal with soft tissue ulceration down within a few mm of the bone. Probable osteomyelitis. Electronically signed by: Cooper Miles MD 03/21/25 23:01 PM (4) Sacral decubitus ulcer Pressure injury stage: stage 4 Qualified Code(s): L89.154 - Pressure ulcer of sacral region, stage 4 (5) Chronic pain Chronic pain type: due to trauma Qualified Code(s): G89.21 - Chronic pain due to trauma (7) Hypotension Hypotension type: unspecified hypotension type Qualified Code(s): I95.9 - Hypotension, unspecified
[2025-03-29 05:41] LABS: Hematocrit (blood only) 32.2 % (42.0-52.0); Hemoglobin 9.7 g/dl (14.0-18.0); Mean Corpuscular Hemoglobin 23.3 pg (25.0-34.0); Mean Corpuscular Volume 77.4 fL (80.0-100.0); Platelet Count 215 K/uL (130-400); RDW Standard Deviation 47.6 fL (36.4-46.3); Red Blood Count 4.16 M/uL (4.70-6.10); White Blood Count 7.31 K/ul (4.8-10.8)
[2025-03-29 05:58] LABS: Anion Gap 4.0 (3-11); Blood Urea Nitrogen 11.0 mg/dl (6-23); Calcium 8.9 mg/dl (8.6-10.3); Carbon Dioxide 26.0 mmol/L (21-32); Chloride 108.0 mmol/L (98-107); Creatinine Clr Calc Pharmacy 262.3 ml/min; Glucose 99.0 mg/dl (70-99(Fasting)); Potassium 3.6 mmol/L (3.5-5.1); Sodium 138.0 mmol/L (136-145)
[2025-03-29] MEDS ORDERED: VANCOMYCIN LEVEL ONE (08:30)
[2025-03-29] MEDS: ENOXAPARIN INJ 40 MG/0.4 ML SYR SQ SCH (09:08)
[2025-03-29] MEDS ORDERED: ENOXAPARIN INJ 40 MG/0.4 ML SYR SQ SCH (10:00)
--- NOTE | 2025-03-29 10:05 | Pharmacy Report ---
Pharmacy PK ABX Note - Date of Service March 29, 2025 - Assessment and Plan Assessment * 49 year old M receiving vancomycin and cefepime per ID recommendation for treatment of left foot osteomyelitis. * MRSA isolated from L foot, sacrum, and abdomen cultures. Enterobacter and pa n-sensititive Acinetobacter baumannii isolated from urine culture. CRAB now also isolated from sacral culture. * PMHx significant for quadriplegia with neurogenic bladder requiring a suprapubic catheter, frequent UTIs, recent admission for bacteremia. History of pseudomonas and MRSA in past. Recently started on Cipro. * SCr at baseline of ~0.5 mg/dL, this is likely inaccurate due to low muscle mass in quadriplegic patient. * End date for cefepime and vancomycin is 05/04/25 per ID. Plan Vancomycin * Target AUC/BEATRIZ of 400-600 mg/L.hr * Random level of 20.5 mcg/mL today associated with a therapeutic AUC of 547 mg/L.hr * Continue vancomycin 1500 mg IV every 12 hours * Random level ordered for: 04/05/25 w AM labs Pharmacy will continue to follow and will adjust dose/frequency as necessary. Thank you. Pharmacy has transitioned to AUC monitoring for vancomycin. AUC/BEATRIZ is the preferred PK/PD target and is associated with decreased risk of nephrotoxicity compared to traditional trough targets.
--- NOTE | 2025-03-29 10:32 | Hospitalist Progress Note ---
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: (11) History of pulmonary embolism: (12) COPD (chronic obstructive pulmonary disease): (13) GERD (gastroesophageal reflux disease): (14) Seizure disorder: Plan This is a 49 year old male with PMH significant for paraplegia, autonomic dysreflexia, neurogenic bladder with suprapubic cath, history of PE on anticoagulation, chronic sacral ulcer with history of osteomyelitis and cellulitis and multiple debridements, history of complicated UTI, history of septic shock, anxiety disorder, COPD, history of polysubstance abuse, chronic pain, seizure disorder, history of leaving AMA who presented to the ED on 03/21/2025 with weakness, chills, nausea without vomiting x5 days and is admitted for complicated UTI. Complicated UTI due to suprapubic catheter Patient did not meet sepsis criteria on admission Urine culture grew acinetobacter baumannii/nosoco Plan: -ID consulted and discussed with Dr Kilgore via TT on 03/25: recommends IV cefepime 2g q8hr (instead of meropenem) and IV vancomycin 1500mg q12hr for 6 weeks (end date 05/04/25) -Continue oxybutynin -Multiple attempts by IV team made for PICC line placement, unable to place due to inadequate vessel size - Holding Eliquis as of 03/29 - Discussed with Dr. Bangura of vascular, who is out of town through next week. Dr. Alonso to return by Tuesday, discussed with Patt HORNER. Planned consult for TC placement Tuesday, continue holding Eliquis -CM following for placement at SNF/ if facilities do not accept Stage IV pressure ulcer of left foot Foot MRI revealed probable osteomyelitis Wound culture grew staph aureus MRSA Podiatry consulted and recommends: -Offload with waffle boot and pillow -Daily dressing changes per orders -Treatment with 6 weeks IV antibiotics as above Sacral decubitus ulcer Chronic wound with history of multiple episodes of osteomyelitis and surgical debridement CTAP reveals focal soft tissue defect and erosion of distal sacrum and coccyx - stable Continue wound care Turn and reposition q2hr Chronic Pain Syndrome Chronic pain and history of polysubstance abuse Admitting drug screen positive for marijuana only Patient trialed Suboxone previously and stopped taking due to constipation side effect Reports full body burning pain is controlled on below regimen Plan: -Continue baclofen and nortriptyline -Lyrica increased to 50mg tid this admission -Pain management added duloxetine 60 mg daily this admission -Breakthrough pain control with oxycodone 10mg q4hr PRN Chronic Hypotension Bradycardia Autonomic dysreflexia Chronic hypotension and bradycardia secondary to autonomic dysreflexia in setting of spinal cord injury Continue midodrine tid Paraplegia Continue home bowel regimen History of PE Continue Eliquis COPD Continue inhalers Seizure disorder Continue keppra GERD Continue PPI DVT Prophylaxis: on Eliquis Code Status: FULL CODE PCP: Chay Aguilar Disposition: Holding Eliquis, plan for tunneled catheter placement Tuesday by Vascular surgery vs IR. Pending SNF vs acceptance Patient seen in collaboration with Dr Vela. Please see addendum. I spent a total of 50 minutes coordinating, documenting and providing care for this patient excluding time spent in the performance of separately billed services or time spent by another provider/QHP. Admission and Anticipated Discharge Date Admission Date: March 21, 2025 Supervising Physician Co-Signing Physician Notes Chart reviewed. Discussed with advanced practitioner. I have reviewed the advanced practitioner's documentation on the date of service referred in note and agree with plan. Agree with holding Eliquis, Lovenox subcu for now as patient might need tunneled catheter versus port placement for IV antibiotics. Patient's care is coordinated with Mitzi Miles PA-C . Please refer to the documentation above for details of patient's presentation and for discussion of other issues. I spent a total [id number] coordinating, documenting, and providing care for this patient excluding time spent in the performance of separately billed services or time spent by another provider/QHP. Subjective Patient seen resting in bed, answers questions appropriately No acute concerns or changes overnight, pain is controlled Denies chest pain, SOB, abdominal pain, N/V/D Review of Systems Review of Systems: At least ten systems reviewed and negative except as noted in the HPI. Physical Exam Physical Exam: Gen: WD/WN, NAD, resting in bed talking on the phone, A&Ox3 HEENT: Normocephalic, atraumatic Lung: Clear to Auscultation bilaterally Heart: Regular rate, regular rhythm Abdomen: Soft, NT, ND +BS x 4 : + Sanchez Neuro/extremities: + Paraplegic, able to move BUE, no changes Skin: Warm, no rash, sacral and L foot wounds with dressings c/d/i Results & Data Results & Data Vital Signs (Past 12 Hours) Vital Signs Temp Pulse Pulse Resp BP BP Pulse Ox 03/29/25 07:45 36.5 C 62 18 107/73 96 03/29/25 03:11 36.6 C 63 18 94/61 L 97 03/29/25 00:00 68 03/28/25 22:55 36.5 C 72 20 126/85 96 O2 Del Method 03/29/25 07:45 Room Air 03/29/25 03:11 Room Air 03/29/25 00:00 03/28/25 22:55 Room Air Laboratory Results Short CBC 03/29/25 Range/Units 05:04 WBC 7.31 (4.8-10.8) K/ul Hgb 9.7 L (14.0-18.0) g/dl Hct 32.2 L (42.0-52.0) % Plt Count 215 (130-400) K/uL BMP 03/29/25 05:04 Sodium 138 Potassium 3.6 Chloride 108 H Carbon Dioxide 26 BUN 11 Creatinine 0.38 L Glucose 99 Calcium 8.9 Diagnostic Findings Abdomen/Pelvis CT 03/21/25 03:49 EXAM: CT abd pelvis IV con only CLINICAL HISTORY: lower abd to pelvic pain, decub, uti TECHNIQUE: Contiguous axial images were obtained from the level of the diaphragm to the pubic symphysis with intravenous contrast. Coronal and sagittal reconstructions were likewise performed and indicated to increase the sensitivity for detecting clinically relevant pathology. If IV contrast material had not been administered, the likelihood of detecting abnormalities relevant to the patient's condition would have been substantially decreased. CT scan was performed according to ALARA (as low as reasonable achievable). COMPARISON: 04:08:00 CRIBBING SETTER FINDINGS: Few atelectatic bands are noted involving bilateral lung bases. The liver is normal in size and attenuation. No focal liver lesions are seen. There is no intra or extrahepatic biliary ductal dilatation. Hepatic vasculature is patent. Status post-cholecystectomy. The spleen, pancreas, and adrenal glands are unremarkable. The kidneys are normal in size and attenuation. There is no hydronephrosis or perinephric fat stranding. Right kidneys are 1-2 mm sized concretion in upper calyx. Left kidney shows 8 mm and 12 mm in upper calyx and 5 mm in lower calyx. The ureters are normal in caliber and no ureteral calculi are seen. The bladder is normal in contour. Pelvic viscera are unremarkable. No focal or diffuse bowel wall thickening or evidence of bowel obstruction is identified. No evidence of inflamed appendix. Abdominal and pelvic vasculature is patent. No adenopathy or fluid collections are seen. No aggressive appearing osseous lesions are identified. Evidence of sacral decubitus ulcer with focal soft tissue defect and erosion of distal sacrum and coccyx is seen. Colonic fecal and gaseous distension IMPRESSION: 1. Evidence of sacral decubitus ulcer with focal soft tissue defect and erosion of distal sacrum and coccyx is seen.-stable. 2. Bilateral non-obstructing renal calculi. 3. Colonic fecal and gaseous distension- possibility of constipation 4. No other new interval abnormality since prior study. Electronically signed by Justin Melgar 03-21-2025 06:24 AM Chest X-Ray 03/21/25 03:53 EXAM: XR chest 1V portable CLINICAL HISTORY: weak, chills TECHNIQUE: An X-ray image of the chest is obtained in AP projection. COMPARISON: 10/06/2024. FINDINGS: Pulmonary Parenchyma: Lungs are clear bilaterally. No evidence of consolidation, collapse, or focal opacities. Stable prominent bilateral parahilar markings. No evidence of pleural effusion or pleural thickening. Heart and Mediastinum: Heart size and shape are normal. No mediastinal widening or masses. No hilar or mediastinal lymphadenopathy. Bony Thorax: Bony thorax appears intact without fractures or deformities. Soft Tissues: Soft tissues overlying the chest wall are unremarkable. IMPRESSION: 1. No evidence of consolidation or pleural effusion. 2. No interval changes. Electronically signed by Luke Dunne 03-21-2025 05:33 AM Foot X-Ray 03/21/25 09:48 XR foot LT min 3V routine CLINICAL HISTORY: wound eval osteomyelitis COMPARISON: None FINDINGS: The bones are osteopenic. No acute fractures are visualized. No destructive lesions are visualized on conventional radiographic imaging. There is no gas within soft tissues. IMPRESSION: 1. Osteopenia 2. No acute fractures 2. No conventional radiographic evidence of acute osteolysis ACT 112: Negative or not required by law. Electronically signed by: Luisito Cotto M.D. 03/21/2025 10:31 AM Foot MRI 03/21/25 13:01 Exam(s): MRI LEFT FOOT Without Contrast EXAM: MR Left Lower Extremity Without Intravenous Contrast, Foot CLINICAL HISTORY: Reason for exam: Wound with exposed bone 5th metatarsal left. TECHNIQUE: Multiplanar magnetic resonance images of the left foot without intravenous contrast. COMPARISON: Plain films from 03/21/2025 FINDINGS: Bones/joints: There is increased signal on T2 fat sat and STIR involving the distal 1.6 cm of the 5th metatarsal with soft tissue ulceration down within a few mm of the bone. The midfoot alignment is normal. No other areas of abnormal bone marrow signal are identified. No acute fracture or dislocation is seen. Soft tissues: There is subcutaneous edema of the dorsum of the foot and lateral aspect of the distal foot. No abscess is identified. IMPRESSION: 1. There is subcutaneous edema of the dorsum of the foot and lateral aspect of the distal foot. No abscess is identified. 2. There is increased signal on T2 fat sat and STIR involving the distal 1.6 cm of the 5th metatarsal with soft tissue ulceration down within a few mm of the bone. Probable osteomyelitis. Electronically signed by: Cooper Miles MD 03/21/25 23:01 PM (4) Sacral decubitus ulcer Pressure injury stage: stage 4 Qualified Code(s): L89.154 - Pressure ulcer of sacral region, stage 4 (5) Chronic pain Chronic pain type: due to trauma Qualified Code(s): G89.21 - Chronic pain due to trauma (7) Hypotension Hypotension type: unspecified hypotension type Qualified Code(s): I95.9 - Hypotension, unspecified
[2025-03-30 06:16] LABS: Hematocrit (blood only) 33.9 % (42.0-52.0); Hemoglobin 10.3 g/dl (14.0-18.0); Mean Corpuscular Hemoglobin 23.4 pg (25.0-34.0); Mean Corpuscular Volume 77.0 fL (80.0-100.0); Platelet Count 208 K/uL (130-400); RDW Standard Deviation 47.0 fL (36.4-46.3); Red Blood Count 4.40 M/uL (4.70-6.10); White Blood Count 6.42 K/ul (4.8-10.8)
[2025-03-30 06:39] LABS: Anion Gap 6.0 (3-11); Blood Urea Nitrogen 9.0 mg/dl (6-23); Calcium 9.1 mg/dl (8.6-10.3); Carbon Dioxide 25.0 mmol/L (21-32); Chloride 108.0 mmol/L (98-107); Creatinine Clr Calc Pharmacy 285.6 ml/min; Glucose 87.0 mg/dl (70-99(Fasting)); Potassium 3.5 mmol/L (3.5-5.1); Sodium 139.0 mmol/L (136-145)
--- NOTE | 2025-03-30 10:20 | Hospitalist Progress Note ---
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: (11) History of pulmonary embolism: (12) COPD (chronic obstructive pulmonary disease): (13) GERD (gastroesophageal reflux disease): (14) Seizure disorder: Plan This is a 49 year old male with PMH significant for paraplegia, autonomic dysreflexia, neurogenic bladder with suprapubic cath, history of PE on anticoagulation, chronic sacral ulcer with history of osteomyelitis and cellulitis and multiple debridements, history of complicated UTI, history of septic shock, anxiety disorder, COPD, history of polysubstance abuse, chronic pain, seizure disorder, history of leaving AMA who presented to the ED on 03/21/2025 with weakness, chills, nausea without vomiting x5 days and is admitted for complicated UTI, chronic wounds, probable osteomyelitis. Complicated UTI due to suprapubic catheter Patient did not meet sepsis criteria on admission Urine culture grew Acinetobacter baumannii/nosoco Plan: -ID consulted and discussed with Dr Kilgore via TT on 03/25: recommends IV cefepime 2g q8hr (instead of meropenem) and IV vancomycin 1500mg q12hr for 6 weeks (end date 05/04/25) -Continue oxybutynin -Multiple attempts by IV team made for PICC line placement, unable to place due to inadequate vessel size - Holding Eliquis as of 03/29 - Discussed with Dr. Bangura of vascular, who is out of town through next week. Dr. Alonso to return by Tuesday, discussed with Patt HORNER. Planned consult for TC placement Tuesday, continue holding Eliquis -CM following for placement at SNF/ if facilities do not accept Stage IV pressure ulcer of left foot Foot MRI revealed probable osteomyelitis Wound culture grew staph aureus MRSA Podiatry consulted and recommends: -Offload with waffle boot and pillow -Daily dressing changes per orders -Treatment with 6 weeks IV antibiotics as above Sacral decubitus ulcer Chronic wound with history of multiple episodes of osteomyelitis and surgical debridement CTAP reveals focal soft tissue defect and erosion of distal sacrum and coccyx - stable Re-consult wound care to eval for possible wound vac Turn and reposition q2hr Chronic Pain Syndrome Chronic pain and history of polysubstance abuse Admitting drug screen positive for marijuana only Patient trialed Suboxone previously and stopped taking due to constipation side effect Reports full body burning pain is controlled on below regimen Plan: -Continue baclofen and nortriptyline -Lyrica increased to 50mg tid this admission -Pain management added duloxetine 60 mg daily this admission -Breakthrough pain control with oxycodone 10mg q4hr PRN Chronic Hypotension Bradycardia Autonomic dysreflexia Chronic hypotension and bradycardia secondary to autonomic dysreflexia in setting of spinal cord injury Continue midodrine tid Paraplegia Continue home bowel regimen History of PE Continue Eliquis COPD Continue inhalers Seizure disorder Continue keppra GERD Continue PPI DVT Prophylaxis: on Eliquis Code Status: FULL CODE PCP: Chay Aguilar Disposition: Holding Eliquis, plan for tunneled catheter placement Tuesday by Vascular surgery vs IR. Pending SNF vs acceptance Patient seen in collaboration with Dr Vela. Please see addendum. I spent a total of 35 minutes coordinating, documenting and providing care for this patient excluding time spent in the performance of separately billed services or time spent by another provider/QHP. Admission and Anticipated Discharge Date Admission Date: March 21, 2025 Supervising Physician Co-Signing Physician Notes Chart reviewed. Stable for discharge, awaiting placement. Discussed with advanced practitioner regarding plan of care. I have reviewed the advanced practitioner's documentation on the date of service referred in note and agree with plan. Continue to hold Eliquis for now for tunneled catheter versus port placement for IV antibiotics. Continue IV vancomycin, cefepime. Patient's care is coordinated with Mitzi Miles PA-C . Please refer to the documentation above for details of patient's presentation and for discussion of other issues. I spent a total [id number] coordinating, documenting, and providing care for this patient excluding time spent in the performance of separately billed services or time spent by another provider/QHP. Subjective Patient seen resting in bed, answers questions appropriately No acute concerns or changes overnight, pain is controlled Denies chest pain, SOB, abdominal pain, N/V/D Sacral dressing changed last night Review of Systems Review of Systems: At least ten systems reviewed and negative except as noted in the HPI. Physical Exam Physical Exam: Gen: WD/WN, NAD, resting in bed talking on the phone, A&Ox3 HEENT: Normocephalic, atraumatic Lung: Clear to Auscultation bilaterally Heart: Regular rate, regular rhythm Abdomen: Soft, NT, ND +BS x 4 : + Sanchez Neuro/extremities: + Paraplegic, able to move BUE, no changes Skin: Warm, no rash, sacral and L foot wounds with dressings c/d/i Results & Data Results & Data Vital Signs (Past 12 Hours) Vital Signs Temp Pulse Resp BP BP Pulse Ox O2 Del Method 03/30/25 07:50 Room Air 03/30/25 07:28 36.6 C 57 L 18 116/82 96 Room Air 03/30/25 03:55 36.4 C L 55 L 16 132/95 96 Room Air 03/29/25 23:48 36.5 C 56 L 18 131/91 95 Room Air Laboratory Results Short CBC 03/30/25 Range/Units 05:41 WBC 6.42 (4.8-10.8) K/ul Hgb 10.3 L (14.0-18.0) g/dl Hct 33.9 L (42.0-52.0) % Plt Count 208 (130-400) K/uL BMP 03/30/25 05:41 Sodium 139 Potassium 3.5 Chloride 108 H Carbon Dioxide 25 BUN 9 Creatinine 0.35 L Glucose 87 Calcium 9.1 Diagnostic Findings Abdomen/Pelvis CT 03/21/25 03:49 EXAM: CT abd pelvis IV con only CLINICAL HISTORY: lower abd to pelvic pain, decub, uti TECHNIQUE: Contiguous axial images were obtained from the level of the diaphragm to the pubic symphysis with intravenous contrast. Coronal and sagittal reconstructions were likewise performed and indicated to increase the sensitivity for detecting clinically relevant pathology. If IV contrast material had not been administered, the likelihood of detecting abnormalities relevant to the patient's condition would have been substantially decreased. CT scan was performed according to ALARA (as low as reasonable achievable). COMPARISON: 04:08:00 BLEACH MIXER FINDINGS: Few atelectatic bands are noted involving bilateral lung bases. The liver is normal in size and attenuation. No focal liver lesions are seen. There is no intra or extrahepatic biliary ductal dilatation. Hepatic vasculature is patent. Status post-cholecystectomy. The spleen, pancreas, and adrenal glands are unremarkable. The kidneys are normal in size and attenuation. There is no hydronephrosis or perinephric fat stranding. Right kidneys are 1-2 mm sized concretion in upper calyx. Left kidney shows 8 mm and 12 mm in upper calyx and 5 mm in lower calyx. The ureters are normal in caliber and no ureteral calculi are seen. The bladder is normal in contour. Pelvic viscera are unremarkable. No focal or diffuse bowel wall thickening or evidence of bowel obstruction is identified. No evidence of inflamed appendix. Abdominal and pelvic vasculature is patent. No adenopathy or fluid collections are seen. No aggressive appearing osseous lesions are identified. Evidence of sacral decubitus ulcer with focal soft tissue defect and erosion of distal sacrum and coccyx is seen. Colonic fecal and gaseous distension IMPRESSION: 1. Evidence of sacral decubitus ulcer with focal soft tissue defect and erosion of distal sacrum and coccyx is seen.-stable. 2. Bilateral non-obstructing renal calculi. 3. Colonic fecal and gaseous distension- possibility of constipation 4. No other new interval abnormality since prior study. Electronically signed by Justin Melgar 03-21-2025 06:24 AM Chest X-Ray 03/21/25 03:53 EXAM: XR chest 1V portable CLINICAL HISTORY: weak, chills TECHNIQUE: An X-ray image of the chest is obtained in AP projection. COMPARISON: 10/06/2024. FINDINGS: Pulmonary Parenchyma: Lungs are clear bilaterally. No evidence of consolidation, collapse, or focal opacities. Stable prominent bilateral parahilar markings. No evidence of pleural effusion or pleural thickening. Heart and Mediastinum: Heart size and shape are normal. No mediastinal widening or masses. No hilar or mediastinal lymphadenopathy. Bony Thorax: Bony thorax appears intact without fractures or deformities. Soft Tissues: Soft tissues overlying the chest wall are unremarkable. IMPRESSION: 1. No evidence of consolidation or pleural effusion. 2. No interval changes. Electronically signed by Luke Dunne 03-21-2025 05:33 AM Foot X-Ray 03/21/25 09:48 XR foot LT min 3V routine CLINICAL HISTORY: wound eval osteomyelitis COMPARISON: None FINDINGS: The bones are osteopenic. No acute fractures are visualized. No destructive lesions are visualized on conventional radiographic imaging. There is no gas within soft tissues. IMPRESSION: 1. Osteopenia 2. No acute fractures 2. No conventional radiographic evidence of acute osteolysis ACT 112: Negative or not required by law. Electronically signed by: Luisito Cotto M.D. 03/21/2025 10:31 AM Foot MRI 03/21/25 13:01 Exam(s): MRI LEFT FOOT Without Contrast EXAM: MR Left Lower Extremity Without Intravenous Contrast, Foot CLINICAL HISTORY: Reason for exam: Wound with exposed bone 5th metatarsal left. TECHNIQUE: Multiplanar magnetic resonance images of the left foot without intravenous contrast. COMPARISON: Plain films from 03/21/2025 FINDINGS: Bones/joints: There is increased signal on T2 fat sat and STIR involving the distal 1.6 cm of the 5th metatarsal with soft tissue ulceration down within a few mm of the bone. The midfoot alignment is normal. No other areas of abnormal bone marrow signal are identified. No acute fracture or dislocation is seen. Soft tissues: There is subcutaneous edema of the dorsum of the foot and lateral aspect of the distal foot. No abscess is identified. IMPRESSION: 1. There is subcutaneous edema of the dorsum of the foot and lateral aspect of the distal foot. No abscess is identified. 2. There is increased signal on T2 fat sat and STIR involving the distal 1.6 cm of the 5th metatarsal with soft tissue ulceration down within a few mm of the bone. Probable osteomyelitis. Electronically signed by: Cooper Miles MD 03/21/25 23:01 PM (4) Sacral decubitus ulcer Pressure injury stage: stage 4 Qualified Code(s): L89.154 - Pressure ulcer of sacral region, stage 4 (5) Chronic pain Chronic pain type: due to trauma Qualified Code(s): G89.21 - Chronic pain due to trauma (7) Hypotension Hypotension type: unspecified hypotension type Qualified Code(s): I95.9 - Hypotension, unspecified
[2025-03-31 06:11] LABS: Hematocrit (blood only) 34.1 % (42.0-52.0); Hemoglobin 10.2 g/dl (14.0-18.0); Mean Corpuscular Hemoglobin 23.3 pg (25.0-34.0); Mean Corpuscular Volume 77.9 fL (80.0-100.0); Platelet Count 185 K/uL (130-400); RDW Standard Deviation 47.5 fL (36.4-46.3); Red Blood Count 4.38 M/uL (4.70-6.10); White Blood Count 6.41 K/ul (4.8-10.8)
[2025-03-31 06:35] LABS: Anion Gap 6.0 (3-11); Blood Urea Nitrogen 10.0 mg/dl (6-23); Calcium 9.4 mg/dl (8.6-10.3); Carbon Dioxide 25.0 mmol/L (21-32); Chloride 109.0 mmol/L (98-107); Creatinine Clr Calc Pharmacy 313.1 ml/min; Glucose 81.0 mg/dl (70-99(Fasting)); Potassium 3.4 mmol/L (3.5-5.1); Sodium 140.0 mmol/L (136-145)
[2025-03-31] MEDS: POTASSIUM CHLORIDE 10 MEQ TABCR PO ONE (09:21)
--- NOTE | 2025-03-31 10:17 | Hospitalist Progress Note ---
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: (11) History of pulmonary embolism: (12) COPD (chronic obstructive pulmonary disease): (13) GERD (gastroesophageal reflux disease): (14) Seizure disorder: Plan This is a 49 year old male with PMH significant for paraplegia, autonomic dysreflexia, neurogenic bladder with suprapubic cath, history of PE on anticoagulation, chronic sacral ulcer with history of osteomyelitis and cellulitis and multiple debridements, history of complicated UTI, history of septic shock, anxiety disorder, COPD, history of polysubstance abuse, chronic pain, seizure disorder, history of leaving AMA who presented to the ED on 03/21/2025 with weakness, chills, nausea without vomiting x5 days and is admitted for complicated UTI, chronic wounds, probable osteomyelitis. Complicated UTI due to suprapubic catheter Patient did not meet sepsis criteria on admission Urine culture grew Acinetobacter baumannii/nosoco Plan: -ID consulted and discussed with Dr Kilgore via TT on 03/25: recommends IV cefepime 2g q8hr (instead of meropenem) and IV vancomycin 1500mg q12hr for 6 weeks (end date 05/04/25) -Continue oxybutynin -Multiple attempts by IV team made for PICC line placement, unable to place due to inadequate vessel size - Holding Eliquis as of 03/29 -Discussed with Dr. Bangura of vascular, who is out of town through next week. Dr. Alonso to return by Tuesday, discussed with Patt HORNER. Planned consult for TC placement Tuesday, continue holding Eliquis -CM following for placement at SNF/ if facilities do not accept Stage IV pressure ulcer of left foot Foot MRI revealed probable osteomyelitis Wound culture grew staph aureus MRSA Podiatry consulted and recommends: -Offload with waffle boot and pillow -Daily dressing changes per orders -Treatment with 6 weeks IV antibiotics as above Sacral decubitus ulcer Chronic wound with history of multiple episodes of osteomyelitis and surgical debridement CTAP reveals focal soft tissue defect and erosion of distal sacrum and coccyx - stable Re-consult wound care to eval for possible wound vac (patient previously declined their services) Turn and reposition q2hr Chronic Pain Syndrome Chronic pain and history of polysubstance abuse Admitting drug screen positive for marijuana only Patient trialed Suboxone previously and stopped taking due to constipation side effect Reports full body burning pain is controlled on below regimen Plan: -Continue baclofen and nortriptyline -Lyrica increased to 50mg tid this admission -Pain management added duloxetine 60 mg daily this admission -Breakthrough pain control with oxycodone 10mg q4hr PRN Chronic Hypotension Bradycardia Autonomic dysreflexia Chronic hypotension and bradycardia secondary to autonomic dysreflexia in setting of spinal cord injury Continue midodrine tid Paraplegia Continue home bowel regimen History of PE Continue Eliquis COPD Continue inhalers Seizure disorder Continue keppra GERD Continue PPI DVT Prophylaxis: on Eliquis Code Status: FULL CODE PCP: Chay Aguilar Disposition: Holding Eliquis, plan for tunneled catheter placement Tuesday by Vascular surgery vs IR. Pending SNF vs HH acceptance Family updated over the phone this afternoon. Patient seen in collaboration with Dr Vela. Please see addendum. I spent a total of 30 minutes coordinating, documenting and providing care for this patient excluding time spent in the performance of separately billed services or time spent by another provider/QHP. Admission and Anticipated Discharge Date Admission Date: March 21, 2025 Supervising Physician Co-Signing Physician Notes Chart reviewed. Needs IV access placed prior to discharge for antibiotics. Discussed with advanced practitioner regarding plan of care. I have reviewed the advanced practitioner's documentation on the date of service referred in note and agree with plan. Continue to hold Eliquis for now for tunneled catheter versus port placement for IV antibiotics. Vascular surgery consulted. Continue IV vancomycin, cefepime as recommended by infectious disease. N.p.o. after midnight for possible procedure tomorrow. Patient's care is coordinated with Mitzi Miles PA-C . Please refer to the documentation above for details of patient's presentation and for discussion of other issues. I spent a total [id number] coordinating, documenting, and providing care for this patient excluding time spent in the performance of separately billed services or time spent by another provider/QHP. Subjective Patient seen resting in bed, answers questions appropriately. Per staffing assistant, not cooperative with AM meds, keeping head under blanket No acute concerns or changes overnight, pain is controlled. Warmer with lana'gwyn villa, did allow me to examine him mid-morning Denies chest pain, SOB, abdominal pain, N/V/D Review of Systems Review of Systems: At least ten systems reviewed and negative except as noted in the HPI. Physical Exam Physical Exam: Gen: WD/WN, NAD, resting in bed, A&Ox3 HEENT: Normocephalic, atraumatic Lung: Clear to Auscultation bilaterally Heart: Regular rate, regular rhythm Abdomen: Soft, NT, ND +BS x 4 : + Sanchez Neuro/extremities: + Paraplegic, able to move BUE, no changes Skin: Warm, no rash, sacral and L foot wounds with dressings c/d/i Results & Data Results & Data Vital Signs (Past 12 Hours) Vital Signs Temp Pulse Pulse Resp BP Pulse Ox O2 Del Method 03/31/25 08:45 47 L 03/31/25 08:26 48 L 14 121/74 96 Room Air 03/31/25 07:39 Room Air 03/31/25 03:57 36.5 C 46 L 15 99/68 L 96 Room Air 03/30/25 23:09 36.4 C L 53 L 17 133/88 98 Room Air Laboratory Results Short CBC 03/31/25 Range/Units 05:38 WBC 6.41 (4.8-10.8) K/ul Hgb 10.2 L (14.0-18.0) g/dl Hct 34.1 L (42.0-52.0) % Plt Count 185 (130-400) K/uL BMP 03/31/25 05:38 Sodium 140 Potassium 3.4 L Chloride 109 H Carbon Dioxide 25 BUN 10 Creatinine 0.32 L Glucose 81 Calcium 9.4 Diagnostic Findings Abdomen/Pelvis CT 03/21/25 03:49 EXAM: CT abd pelvis IV con only CLINICAL HISTORY: lower abd to pelvic pain, decub, uti TECHNIQUE: Contiguous axial images were obtained from the level of the diaphragm to the pubic symphysis with intravenous contrast. Coronal and sagittal reconstructions were likewise performed and indicated to increase the sensitivity for detecting clinically relevant pathology. If IV contrast material had not been administered, the likelihood of detecting abnormalities relevant to the patient's condition would have been substantially decreased. CT scan was performed according to ALARA (as low as reasonable achievable). COMPARISON: 04:08:00 MOLECULAR SPECTROSCOPIST FINDINGS: Few atelectatic bands are noted involving bilateral lung bases. The liver is normal in size and attenuation. No focal liver lesions are seen. There is no intra or extrahepatic biliary ductal dilatation. Hepatic vasculature is patent. Status post-cholecystectomy. The spleen, pancreas, and adrenal glands are unremarkable. The kidneys are normal in size and attenuation. There is no hydronephrosis or perinephric fat stranding. Right kidneys are 1-2 mm sized concretion in upper calyx. Left kidney shows 8 mm and 12 mm in upper calyx and 5 mm in lower calyx. The ureters are normal in caliber and no ureteral calculi are seen. The bladder is normal in contour. Pelvic viscera are unremarkable. No focal or diffuse bowel wall thickening or evidence of bowel obstruction is identified. No evidence of inflamed appendix. Abdominal and pelvic vasculature is patent. No adenopathy or fluid collections are seen. No aggressive appearing osseous lesions are identified. Evidence of sacral decubitus ulcer with focal soft tissue defect and erosion of distal sacrum and coccyx is seen. Colonic fecal and gaseous distension IMPRESSION: 1. Evidence of sacral decubitus ulcer with focal soft tissue defect and erosion of distal sacrum and coccyx is seen.-stable. 2. Bilateral non-obstructing renal calculi. 3. Colonic fecal and gaseous distension- possibility of constipation 4. No other new interval abnormality since prior study. Electronically signed by Justin Melgar 03-21-2025 06:24 AM Chest X-Ray 03/21/25 03:53 EXAM: XR chest 1V portable CLINICAL HISTORY: weak, chills TECHNIQUE: An X-ray image of the chest is obtained in AP projection. COMPARISON: 10/06/2024. FINDINGS: Pulmonary Parenchyma: Lungs are clear bilaterally. No evidence of consolidation, collapse, or focal opacities. Stable prominent bilateral parahilar markings. No evidence of pleural effusion or pleural thickening. Heart and Mediastinum: Heart size and shape are normal. No mediastinal widening or masses. No hilar or mediastinal lymphadenopathy. Bony Thorax: Bony thorax appears intact without fractures or deformities. Soft Tissues: Soft tissues overlying the chest wall are unremarkable. IMPRESSION: 1. No evidence of consolidation or pleural effusion. 2. No interval changes. Electronically signed by Luke Dunne 03-21-2025 05:33 AM Foot X-Ray 03/21/25 09:48 XR foot LT min 3V routine CLINICAL HISTORY: wound eval osteomyelitis COMPARISON: None FINDINGS: The bones are osteopenic. No acute fractures are visualized. No destructive lesions are visualized on conventional radiographic imaging. There is no gas within soft tissues. IMPRESSION: 1. Osteopenia 2. No acute fractures 2. No conventional radiographic evidence of acute osteolysis ACT 112: Negative or not required by law. Electronically signed by: Luisito Cotto M.D. 03/21/2025 10:31 AM Foot MRI 03/21/25 13:01 Exam(s): MRI LEFT FOOT Without Contrast EXAM: MR Left Lower Extremity Without Intravenous Contrast, Foot CLINICAL HISTORY: Reason for exam: Wound with exposed bone 5th metatarsal left. TECHNIQUE: Multiplanar magnetic resonance images of the left foot without intravenous contrast. COMPARISON: Plain films from 03/21/2025 FINDINGS: Bones/joints: There is increased signal on T2 fat sat and STIR involving the distal 1.6 cm of the 5th metatarsal with soft tissue ulceration down within a few mm of the bone. The midfoot alignment is normal. No other areas of abnormal bone marrow signal are identified. No acute fracture or dislocation is seen. Soft tissues: There is subcutaneous edema of the dorsum of the foot and lateral aspect of the distal foot. No abscess is identified. IMPRESSION: 1. There is subcutaneous edema of the dorsum of the foot and lateral aspect of the distal foot. No abscess is identified. 2. There is increased signal on T2 fat sat and STIR involving the distal 1.6 cm of the 5th metatarsal with soft tissue ulceration down within a few mm of the bone. Probable osteomyelitis. Electronically signed by: Cooper Miles MD 03/21/25 23:01 PM (4) Sacral decubitus ulcer Pressure injury stage: stage 4 Qualified Code(s): L89.154 - Pressure ulcer of sacral region, stage 4 (5) Chronic pain Chronic pain type: due to trauma Qualified Code(s): G89.21 - Chronic pain due to trauma (7) Hypotension Hypotension type: unspecified hypotension type Qualified Code(s): I95.9 - Hypotension, unspecified
[2025-04-01 07:05] LABS: Anion Gap 8.0 (3-11); Calcium 9.1 mg/dl (8.6-10.3); Carbon Dioxide 21.0 mmol/L (21-32); Chloride 109.0 mmol/L (98-107); Magnesium 1.7 mg/dl (1.7-2.4); Potassium 3.7 mmol/L (3.5-5.1); Sodium 138.0 mmol/L (136-145)
[2025-04-01 07:11] LABS: Blood Urea Nitrogen 8.0 mg/dl (6-23); Creatinine Clr Calc Pharmacy 249.3 ml/min; Glucose 87.0 mg/dl (70-99(Fasting))
--- NOTE | 2025-04-01 09:05 | Consultation ---
Date of Consultation April 01, 2025 Assessment & Plan (1) Acute osteomyelitis of metatarsal bone of left foot: Pt with L 5th MT OM, in addition to infected decubitus ulcer and UTI. Will need IV abx for at least 6 weeks. Central venous catheter recommended. Procedure and risks discussed with pt, he verbally agrees to procedure. Will try to obtain consent from his sister as well. Planning on placement later this am. 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 Per chart, pt will need IV abx for at least 6 weeks. Pt unable to provide much information, but does state he understands he need the central catheter and that his sister, Lyn, signs his consents. Pt admits general chronic pain. Denies HERNÁNDEZ, fever, chest pain, SOB, abd pain, N/V, other complaitns. Does not ambulate. Has very little BUE movement. Allergies Allergy/AdvReac Type Severity Reaction Status Date / Time Opioids - Morphine Analogues AdvReac severe Verified 04/01/25 12:21 bradycardia Home Medications Medication Instructions Recorded Confirmed Type albuterol sulfate 2.5 mg/3 mL 0 mg inhalation Q4H PRN Shortness 08/26/24 03/21/25 History (0.083 %) solution for nebulization Of Breath Or Wheezing apixaban 5 mg tablet (Eliquis) 5 mg PO AMHS 08/26/24 03/21/25 History baclofen 10 mg tablet 20 mg PO TID 08/26/24 03/21/25 History bisacodyl 10 mg rectal suppository 10 mg VT BID 08/26/24 03/21/25 History budesonide-formoterol HFA 160 2 puff inhalation BID 08/26/24 03/21/25 History mcg-4.5 mcg/actuation aerosol inhaler docusate sodium 100 mg capsule 100 mg PO BID PRN Constipation 08/26/24 03/21/25 History hydroxyzine HCl 25 mg tablet 25 mg PO DAILY PRN Anxiety 08/26/24 03/21/25 History lactulose 10 gram/15 mL oral 20 g PO TID 08/26/24 03/21/25 History solution midodrine 10 mg tablet 10 mg PO TID PRN Hypotension 08/26/24 03/21/25 History nortriptyline 25 mg capsule 25 mg PO HS 08/26/24 03/21/25 History oxybutynin chloride 10 mg 10 mg PO QAM 08/26/24 03/21/25 History tablet,extended release 24 hr pantoprazole 40 mg tablet,delayed 40 mg DAILY 08/26/24 03/21/25 History release sennosides 8.6 mg-docusate sodium 2 tab PO HS 08/26/24 03/21/25 History 50 mg tablet (Senexon-S) tiotropium bromide 2.5 2 puff inhalation QAM 08/26/24 03/21/25 History mcg/actuation mist for inhalation (Spiriva Respimat) acetaminophen 325 mg tablet 650 mg PO Q6 PRN Fever Or Pain 09/30/24 03/21/25 History melatonin 3 mg capsule 3 mg PO HS 09/30/24 03/21/25 History ondansetron 4 mg disintegrating 4 mg translingual Q6 PRN Nausea 09/30/24 03/21/25 History tablet albuterol sulfate 0.63 mg/3 mL 0.63 mg inhalation UD PRN SOB 03/21/25 03/21/25 History solution for nebulization apixaban 5 mg tablet (Eliquis) 5 mg PO BID 03/21/25 03/21/25 History levetiracetam 1,000 mg tablet 1,000 mg PO BID 03/21/25 03/21/25 History pregabalin 50 mg capsule 50 mg PO BID 03/21/25 03/21/25 History simethicone 80 mg chewable tablet 80 mg PO TID 03/21/25 03/21/25 History Patient History Medical History Open wound of left foot Chronic osteomyelitis of sacrum Sacral decubitus ulcer, stage IV Complicated UTI (urinary tract infection) RSV (respiratory syncytial virus infection) Hypoxia Leg wound, left Leg wound, right 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 Hypoxic respiratory failure 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 Severe sepsis Chest pain Acute hypoxemic respiratory failure Change or removal of nonsurgical wound dressing Pneumonia Encephalopathy Hypotension Acute UTI Sacral wound Quadriplegia Anemia Hypomagnesemia Hypokalemia Complication, blocked suprapubic catheter Leukocytosis Acute urinary retention Hydronephrosis Constipation Abdominal pain Left sided abdominal pain Cough Pneumonia Abnormal chest CT Elevated hemidiaphragm Pneumonia involving right lung Soft tissue infection Suprapubic catheter dysfunction Aspiration pneumonia Bacteremia Acute hypotension Acute hypokalemia Abdominal pain Hypoxic respiratory failure Sepsis Acute UTI Acute UTI Abdominal pain Aspiration pneumonitis Pneumonia Paraplegia Surgical History No pertinent past surgical history Social History Smoking Status: Never smoker Tobacco Type: Cigarettes Cigarettes Per Day: 1ppd; Second Hand Exposure: Yes; Do You Dip or Chew Tobacco: No; Hx Alcohol Use: No Hx Substance Use: Yes Non-Prescribed Medications: Crack / Cocaine and Marijuana Preferred Language: Czech Communication Ability: Effective Communication Ability Comment: difficulty writing [employer] Required: No Beliefs That Will Affect Care: None Current Living Situation: Family Current Living Situation Comment: lives home with sister Feels Safe at Home: Yes Assistive Devices: Slide Board, Wheelchair and Other Review of Systems Review of Systems: All systems reviewed & are unremarkable except as noted in HPI & below Physical Exam Constitutional: WD/WN, vitals as above cooperative and comfortable; not in distress Neck: trachea midline Respiratory: normal respiratory effort, lungs clear to auscultation Auscultation: + diminished lung sounds Cardiovascular: Rate/Rhythm: regular rate and regular rhythm Vessels: posterior tibial pulses present, dorsalis pedis pulses present and radial pulses present; + abnormal peripheral pulses Extremities: normal capillary refill Gastrointestinal (Abdomen): Inspection/Auscultation: abdomen normal to inspection and normal bowel sounds Percussion/Palpation: abdomen soft; abdomen nontender Musculoskeletal: Extremities: + abnormal strength, + abnormal muscle tone and + muscle atrophy Skin: decubitus ulcer noted L foot wound noted. Neurologic: awake; + does not move all extremities, no focal motor deficits and not confused Psychiatric: Orientation: alert and oriented x 3 Affect: + depressed affect and + flat affect Results & Data Vital Signs (Past 12 Hours) Vital Signs Temp Pulse Pulse Resp BP BP Pulse Ox 04/01/25 07:20 36.7 C 65 18 112/59 L 97 04/01/25 02:22 36.8 C 59 L 20 149/104 H 98 03/31/25 22:51 36.5 C 60 15 114/73 97 03/31/25 21:45 63 O2 Del Method 04/01/25 07:20 Room Air 04/01/25 02:22 Room Air 03/31/25 22:51 Room Air 03/31/25 21:45
--- NOTE | 2025-04-01 13:32 | Pre Anesthesia Assessment ---
Date of Service April 01, 2025 Pre Sedation Assessment Vital Signs Temp Pulse Pulse Resp BP BP Pulse Ox 04/01/25 13:25 47 L 14 138/83 100 04/01/25 12:21 37.2 C 62 16 146/100 H 97 04/01/25 11:44 36.5 C 81 18 143/96 H 97 04/01/25 07:20 36.7 C 65 18 112/59 L 97 04/01/25 02:22 36.8 C 59 L 20 149/104 H 98 03/31/25 22:51 36.5 C 60 15 114/73 97 03/31/25 21:45 63 03/31/25 19:06 36.6 C 58 L 17 122/79 95 03/31/25 16:30 59 L 123/76 03/31/25 16:17 72 03/31/25 15:32 90/54 L 03/31/25 15:12 89/61 L 03/31/25 15:07 36.5 C 60 18 96 O2 Del Method O2 Flow Rate 04/01/25 13:25 Oxymask 4 04/01/25 12:21 Room Air 04/01/25 11:44 Room Air 04/01/25 07:20 Room Air 04/01/25 02:22 Room Air 03/31/25 22:51 Room Air 03/31/25 21:45 03/31/25 19:06 Room Air 03/31/25 16:30 03/31/25 16:17 03/31/25 15:32 03/31/25 15:12 03/31/25 15:07 Room Air Cardiovascular RRR, no murmur, no edema Respiratory normal respiratory effort, lungs clear to auscultation Pre-Sedation Airway Assessment Smoking Status: Never smoker Short, Thick Neck: No Thyromental Distance: > or= 3.5 Finger Breadths Oral Cavity: + WNL Mallampati Class: III ASA: ASA3 NPO Status Date of Last Intake of Fluids: 03/31/25 Time of Last Intake of Fluids: 17:00 Date of Last Intake of Solid Food: 03/31/25 Time of Last Intake of Solid Foods: 17:00 Procedure Planning Contraindications for Sedation: none Current Medications Reviewed: Yes Notes The planned sedation has been discussed with the patient. Informed Consent was obtained. I have identified the patient, determined the appropriateness of sedation and have assessed the patient immediately prior to the procedure. All medicine(s) and interventions are by my order.
--- NOTE | 2025-04-01 13:38 | Hospitalist Progress Note ---
Date of Service April 01, 2025 Assessment & Plan (1) Complicated urinary tract infection: (2) Suprapubic catheter: (3) Pressure ulcer of left foot, stage 4: (4) Acute osteomyelitis of metatarsal bone of left foot: (5) Sacral decubitus ulcer: (6) Chronic pain: (7) Hypokalemia: (8) Hypotension: (9) Bradycardia: (10) Quadriplegia: (11) Autonomic dysreflexia: (12) History of pulmonary embolism: (13) COPD (chronic obstructive pulmonary disease): (14) GERD (gastroesophageal reflux disease): (15) Seizure disorder: Plan Pt is a 49y/o M with PMHx significant for paraplegia, autonomic dysreflexia, neurogenic bladder with chronic suprapubic catheter with history of recurrent UTIs, history of PE on Eliquis, chronic sacral ulcer with history of osteomyelitis/cellulitis/debridement, history of septic shock, anxiety, COPD, history of polysubstance abuse, chronic pain, seizure disorder and history of leaving AMA who presented to the ED on 03/21/25 with generalized weakness, chills and nausea x 5 days. Currently admitted for complicated UTI ISO chronic suprapubic catheter, stage IV pressure ulcer of L foot with probable osteomyelitis on MRI and chronic wounds. Complicated UTI ISO chronic suprapubic catheter placement 2/2 neurogenic bladder Did not meet sepsis criteria on admission Urine culture grew Acinetobacter baumannii/nosoco, Enterobacter cloacae complex ID consulted and pt discussed with Dr. Kilgore via TT on 03/25/25 by previous provider: -Recommends IV cefepime 2g Q8H (instead of meropenem) + IV vancomycin 1500mg Q12H x 6 weeks with EOT on 05/04/25 -Multiple attempts made by IV team for PICC line placement however were unable to get anything placed 2/2 inadequate vessel size -Vascular surgery consulted for line placement, Eliquis on hold --> plan for pt to go to OR today for central venous catheter placement with Dr. Alonso Pt missed dose of IV cefepime last night, 03/31/25, d/t IV site issues (per RN: was unable to flush site last night) Dose of IV cefepime given this AM, IV vancomycin not yet given d/t IV site malfunctioning -Will tentatively plan to give next dose of IV vancomycin once central venous catheter is placed CM following for placement Pt is a difficult placement d/t reputation with prior agencies and nursing homes, h/o polysubstance abuse Stage IV pressure ulcer of the L foot Probable osteomyelitis of the L 5th metatarsal seen on L foot MRI completed 03/21/25 Wound cx from L foot ulcer grew Staph aureus MRSA Podiatry consulted and recommended: -Offload area of ulceration with waffle boot and pillow behind the L ankle -Dressing change to the L foot once daily with Aquacel Ag and Optifoam dressing (dressing ordered placed) -Treatment with 6 weeks of IV antibiotics as per above Sacral decubitus ulcer Chronic wound with history of multiple episodes of osteomyelitis and surgical debridement CTAP: evidence of sacral decubitus ulcer with focal soft tissue defect and erosion of distal sacrum and coccyx - stable Pt previously declined wound care services -Pt now requesting wound care consult --> wound care reconsulted -Turn and reposition Q2H Chronic pain syndrome History of polysubstance abuse Admitting drug screen positive for marijuana only Pt trialed Suboxone previously and stopped taking it due to constipation side effect Reports full body burning pain is controlled on below regimen: -Continue baclofen and nortriptyline (baclofen currently on hold 2/2 sedation --> will resume as able) -Lyrica increased to 50mg TID this admission -Pain management added duloxetine 60mg daily this admission -Breakthrough pain control with oxycodone 10mg q4hr PRN Bradycardia Chronic hypotension, history of autonomic dysreflexia Chronic hypotension and bradycardia 2/2 autonomic dysreflexia ISO prior spinal cord injury Continue midodrine TID Paraplegia d/t spinal cord injury Continue home bowel regimen Able to move BUE; wheelchair bound at baseline History of PE Eliquis currently on hold for central venous catheter placement --> will resume BENY COPD Stable, no s/sx of acute exacerbation Continue home inhalers Seizure disorder Continue Keppra GERD Continue PPI DVT Prophylaxis: SCDs/TEDs, Eliquis currently on hold (as per above) Code Status: FULL CODE Disposition: DC plans uncertain at this time Appreciate CM assistance for placement --> difficult placement 2/2 prior issues with HH agencies, h/o substance abuse Patient seen in collaboration with Dr. Vela. Please see addendum. I spent a total of 42 minutes coordinating, documenting, and providing care for this patient excluding time spent in the performance of separately billed services or time spent by another provider/QHP. This included personally reviewing all current laboratories and imaging studies, medical reconciliation, outpatient chart review and discussion with specialists. This chart was completed in part utilizing Speech Voice Recognition Software. Grammatical errors, random word insertions, pronoun errors, and incomplete sentences are an occasional consequence of this system due to software limitations, ambient noise, and hardware issues. Any formal questions or concerns about the content, text, or information contained within the body of this dictation should be directly addressed to the provider for clarification. Admission and Anticipated Discharge Date Admission Date: March 21, 2025 Supervising Physician Co-Signing Physician Notes Patient is seen and examined at bedside. Offers no new complaints today. Plan for Grande's catheter placement today. Discussed with advanced practitioner regarding plan of care. I have reviewed the advanced practitioner's documentation on the date of service referred in note and agree with plan. On exam patient is well-built, nourished, no apparent distress, normocephalic atraumatic, EOMI, normal breath sounds, clear to auscultation, S1-S2, no murmur, no pedal edema, abdomen soft, nontender, normal bowel sounds, alert, awake, oriented,+ paraplegia. Currently being managed for complicated urinary tract infection, stage IV left foot ulceration concerning for osteomyelitis, sacral decubitus ulcer. Plan to resume Eliquis as able. Appreciate vascular surgery help. Continue IV vancomycin, cefepime as recommended by infectious disease. Patient's care is coordinated with Nguyen Doss PA-C . Please refer to the documentation above for details of patient's presentation and for discussion of other issues. I spent a total [id number] coordinating, documenting, and providing care for this patient excluding time spent in the performance of separately billed services or time spent by another provider/QHP. Subjective Pt seen and examined in room 208-1. Sleepy but arousable. Answers questions appropriately. Pt missed dose of IV cefepime last evening 2/2 concern of IV site failure in LUE as pt had lots of pain with site flushing overnight. Discussed with RN - IV is positional but able to be flushed slowly. IV cefepime given this AM. IV vancomycin not yet given. Pt refused his other home meds. Pt offers no major complaints. Discussed vascular surgery consult for central venous catheter placement - pt agreeable with this. Review of Systems Review of Systems: At least ten systems reviewed and negative except as noted in the HPI. Physical Exam Physical Exam: General/Neurologic: M, NAD, resting in bed (sleepy but easily arousable), A&Ox3, cooperative with questioning HEENT: Normocephalic, atraumatic, moist mucous membranes Respiratory: Normal respiratory effort, CTAB Cardiovascular: RRR, no BLE edema Abdomen/GI: Active bowel sounds, soft, nontender to palpation in all quadrants : + suprapubic catheter intact and draining clear/yellow urine Extremities/MSK: + paraplegic (able to move BUE), L foot wound dressings C/D/I, did not visualize sacral region Results & Data Results & Data Vital Signs (Past 12 Hours) Vital Signs Temp Pulse Pulse Resp BP BP Pulse Ox 04/01/25 13:25 47 L 14 138/83 100 04/01/25 12:21 37.2 C 62 16 146/100 H 97 04/01/25 11:44 36.5 C 81 18 143/96 H 97 04/01/25 07:20 36.7 C 65 18 112/59 L 97 04/01/25 02:22 36.8 C 59 L 20 149/104 H 98 O2 Del Method O2 Flow Rate 04/01/25 13:25 Oxymask 4 04/01/25 12:21 Room Air 04/01/25 11:44 Room Air 04/01/25 07:20 Room Air 04/01/25 02:22 Room Air Laboratory Results BMP 04/01/25 06:17 Sodium 138 Potassium 3.7 Chloride 109 H Carbon Dioxide 21 BUN 8 Creatinine 0.42 L Glucose 87 Calcium 9.1 (5) Sacral decubitus ulcer Pressure injury stage: stage 4 Qualified Code(s): L89.154 - Pressure ulcer of sacral region, stage 4 (6) Chronic pain Chronic pain type: due to trauma Qualified Code(s): G89.21 - Chronic pain due to trauma (8) Hypotension Hypotension type: unspecified hypotension type Qualified Code(s): I95.9 - Hypotension, unspecified
[2025-04-01] MEDS: MIDAZOLAM HCL 1 MG/ML 2ML VIAL ONE (13:42)
[2025-04-01] MEDS ORDERED: MIDAZOLAM HCL 1 MG/ML 2ML VIAL ONE (13:53)
--- NOTE | 2025-04-01 13:54 | Anesthesiology Consultation ---
Date of Service April 01, 2025 Assessment & Plan (1) Encounter for pre-operative examination: Plan called to intervene in case with patient not tolerating the procedure with light sedation Chart Review Chart Review: Acceptable Risk for Surgery ASA ASA3 Proposed Anesthesia Anesthesia Type: MAC History Surgery Operation Date: 04/01/25 15:30 Proposed Procedures p Grande Catheter Insertion - Martin Alonso MD Height/Weight Height: 5 ft 9 in Weight: 98.8 kg Allergies Allergy/AdvReac Type Severity Reaction Status Date / Time Opioids - Morphine Analogues AdvReac severe Verified 04/01/25 12:21 bradycardia Medications Home Medications Medication Instructions Recorded Confirmed Last Taken albuterol sulfate 2.5 mg/3 mL 0 mg inhalation Q4H PRN Shortness 08/26/24 03/21/25 03/20/25 (0.083 %) solution for nebulization Of Breath Or Wheezing apixaban 5 mg tablet (Eliquis) 5 mg PO AMHS 08/26/24 03/21/25 03/20/25 baclofen 10 mg tablet 20 mg PO TID 08/26/24 03/21/25 03/20/25 bisacodyl 10 mg rectal suppository 10 mg NM BID 08/26/24 03/21/25 03/20/25 budesonide-formoterol HFA 160 2 puff inhalation BID 08/26/24 03/21/25 03/20/25 mcg-4.5 mcg/actuation aerosol inhaler docusate sodium 100 mg capsule 100 mg PO BID PRN Constipation 08/26/24 03/21/25 03/20/25 hydroxyzine HCl 25 mg tablet 25 mg PO DAILY PRN Anxiety 08/26/24 03/21/25 03/20/25 lactulose 10 gram/15 mL oral 20 g PO TID 08/26/24 03/21/25 03/20/25 solution midodrine 10 mg tablet 10 mg PO TID PRN Hypotension 08/26/24 03/21/25 03/20/25 nortriptyline 25 mg capsule 25 mg PO HS 08/26/24 03/21/25 03/20/25 oxybutynin chloride 10 mg 10 mg PO QAM 08/26/24 03/21/25 03/20/25 tablet,extended release 24 hr pantoprazole 40 mg tablet,delayed 40 mg DAILY 08/26/24 03/21/25 03/20/25 release sennosides 8.6 mg-docusate sodium 2 tab PO HS 08/26/24 03/21/25 03/20/25 50 mg tablet (Senexon-S) tiotropium bromide 2.5 2 puff inhalation QAM 08/26/24 03/21/25 03/20/25 mcg/actuation mist for inhalation (Spiriva Respimat) acetaminophen 325 mg tablet 650 mg PO Q6 PRN Fever Or Pain 09/30/24 03/21/25 03/20/25 melatonin 3 mg capsule 3 mg PO HS 09/30/24 03/21/25 03/20/25 ondansetron 4 mg disintegrating 4 mg translingual Q6 PRN Nausea 09/30/24 03/21/25 03/20/25 tablet albuterol sulfate 0.63 mg/3 mL 0.63 mg inhalation UD PRN SOB 03/21/25 03/21/25 03/20/25 solution for nebulization apixaban 5 mg tablet (Eliquis) 5 mg PO BID 03/21/25 03/21/25 03/20/25 levetiracetam 1,000 mg tablet 1,000 mg PO BID 03/21/25 03/21/25 03/20/25 pregabalin 50 mg capsule 50 mg PO BID 03/21/25 03/21/25 03/20/25 simethicone 80 mg chewable tablet 80 mg PO TID 03/21/25 03/21/25 03/20/25 Active Medications Generic Name Dose Route Start Last Admin Trade Name Freq PRN Reason Stop Dose Admin Acetaminophen 650 mg 03/21/25 10:47 03/31/25 20:31 Acetaminophen 325 Mg Tab PO 04/20/25 10:46 650 mg Q4H PRN Administration Pain or Fever Apixaban 5 mg 03/21/25 21:00 03/28/25 21:36 Apixaban 5 Mg Tablet PO 04/20/25 20:59 5 mg BID ROSALES Administration Baclofen 20 mg 03/21/25 14:00 03/31/25 20:32 Baclofen 20 Mg Tab PO 04/20/25 13:59 20 mg TID ROSALES Administration Bisacodyl 10 mg 03/21/25 21:00 03/31/25 20:31 Bisacodyl 10 Mg Supp NM 04/20/25 20:59 Not Given BID ROSALES Duloxetine HCl 60 mg 03/22/25 09:00 03/31/25 09:22 Duloxetine Hcl 60 Mg Cap PO 04/21/25 08:59 60 mg QAM ROSALES Administration Enoxaparin Sodium 40 mg 03/29/25 09:00 03/31/25 09:24 Enoxaparin Inj 40 Mg/0.4 Ml Syr SQ 04/28/25 08:59 40 mg DAILY ROSALES Administration Fluticasone/Vilanterol 1 puffs 03/22/25 10:15 03/31/25 09:24 Fluticasone/Vilanterol 200/25mcg 14 Puffs/Inhaler INH 04/21/25 10:14 Not Given DAILY ROSALES Protocol Vancomycin HCl 1,500 mg/ 530 mls @ 200 mls/hr 03/23/25 21:00 04/01/25 00:01 Sodium Chloride IV 05/04/25 23:59 Infused Q12H ROSALES Infusion Cefepime HCl 2,000 mg in 20 mls @ 5 mls/min 03/25/25 16:00 04/01/25 09:45 Maxipime 2000mg IV 05/04/25 23:59 5 mls/min Q8H ROSALES Administration Protocol Lactulose 20 gm 03/21/25 14:00 03/31/25 20:31 Lactulose Syrup 20 Gm/30 Ml Udc PO 04/20/25 13:59 Not Given TID ROSALES Levetiracetam 1,000 mg 03/21/25 21:00 03/31/25 20:30 Levetiracetam 500 Mg Tab PO 04/20/25 20:59 1,000 mg BID ROSALES Administration Melatonin 3 mg 03/21/25 21:00 03/31/25 20:28 Melatonin 3 Mg Tab PO 04/20/25 20:59 3 mg HS ROSALES Administration Midodrine 10 mg 03/21/25 17:00 03/31/25 16:36 Midodrine Hcl 10 Mg Tab PO 04/20/25 16:59 10 mg DAILY@0800,1200,1700 ROSALES Administration Nortriptyline HCl 25 mg 03/22/25 20:00 03/31/25 19:22 Nortriptyline Hcl 25 Mg Cap PO 04/21/25 19:59 25 mg DAILY@2000 ROSALES Administration Ondansetron HCl 4 mg 03/21/25 10:47 03/22/25 17:21 Ondansetron Inj 2 Mg/Ml 2 Ml Vial IV 04/20/25 10:46 4 mg Q6H PRN Administration Nausea Oxybutynin Chloride 10 mg 03/21/25 11:30 03/31/25 09:23 Oxybutynin Chloride Xl 5 Mg Tabcr PO 04/20/25 11:29 10 mg QAM ROSALES Administration Oxycodone HCl 10 mg 03/22/25 07:25 04/01/25 02:23 Oxycodone Hcl Ir 5 Mg Tab (Immediate Release) PO 04/05/25 07:24 10 mg Q4H PRN Administration Mod-Sev Pain (Scale 4-10) Pantoprazole Sodium 40 mg 03/21/25 11:30 03/31/25 09:23 Pantoprazole 40 Mg Tab PO 04/20/25 11:29 40 mg DAILY ROSALES Administration Pregabalin 50 mg 03/23/25 14:00 03/31/25 20:29 Pregabalin 50 Mg Cap PO 04/22/25 13:59 50 mg TID ROSALES Administration Senna/Docusate Sodium 2 tab 03/21/25 21:00 03/31/25 20:29 Docusate Sodium/Senna 50/8.6mg Tab PO 04/20/25 20:59 2 tab HS ROSALES Administration Simethicone 80 mg 03/23/25 11:52 03/30/25 08:33 Simethicone 80 Mg Chew PO 04/20/25 13:59 80 mg TID PRN Administration gas Umeclidinium [place] 1 puffs 03/22/25 09:00 03/31/25 09:24 Umeclidinium [place] 62.5mcg/Blister 7 Puffs/Inhaler INH 04/21/25 08:59 Not Given QAM ROSALES NPO Date Last Intake of Fluids: 03/31/25 Time Last Intake of Fluids: 17:00 Date Last Intake of Solids: 03/31/25 Time Last Intake of Solids: 17:00 Past Medical History Medical History Open wound of left foot Chronic osteomyelitis of sacrum Sacral decubitus ulcer, stage IV Complicated UTI (urinary tract infection) RSV (respiratory syncytial virus infection) Hypoxia Leg wound, left Leg wound, right 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 Hypoxic respiratory failure 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 Severe sepsis Chest pain Acute hypoxemic respiratory failure Change or removal of nonsurgical wound dressing Pneumonia Encephalopathy Hypotension Acute UTI Sacral wound Quadriplegia Anemia Hypomagnesemia Hypokalemia Complication, blocked suprapubic catheter Leukocytosis Acute urinary retention Hydronephrosis Constipation Abdominal pain Left sided abdominal pain Cough Pneumonia Abnormal chest CT Elevated hemidiaphragm Pneumonia involving right lung Soft tissue infection Suprapubic catheter dysfunction Aspiration pneumonia Bacteremia Acute hypotension Acute hypokalemia Abdominal pain Hypoxic respiratory failure Sepsis Acute UTI Acute UTI Abdominal pain Aspiration pneumonitis Pneumonia Paraplegia Past Surgical History Surgical History No pertinent past surgical history Social History Smoking Status: Never smoker Smoking cigarettes per day: 1ppd Do You Dip or Chew Tobacco: No Hx Alcohol Use: No Alcohol type: hard liquor alcohol intake frequency: a few times a week Hx Substance Use: Yes substance use type: marijuana Physical Exam Vital Signs Last Vital Signs Temp 37.2 C 04/01/25 12:21 Pulse 51 L 04/01/25 13:42 Resp 14 04/01/25 13:42 BP 166/100 H 04/01/25 13:42 Pulse Ox 100 04/01/25 13:42 O2 Del Method Oxymask 04/01/25 13:42 O2 Flow Rate 4 04/01/25 13:42 Testing Laboratory Results 03/31/25 05:38 04/01/25 06:17 PT 10.8 Seconds (9.0-12.0) 03/21/25 04:58 INR 1.0 (0.9-1.1) 03/21/25 04:58 Urine Color Yellow 03/21/25 04:08 Urine Appearance Turbid (Clear) A 03/21/25 04:08 Urine pH 6.5 (4.5-7.5) 03/21/25 04:08 Ur Specific [place] 1.019 (1.000-1.030) 03/21/25 04:08 Urine Protein 1+ (Negative) H 03/21/25 04:08 Urine Glucose (UA) Negative (Negative) 03/21/25 04:08 Urine Ketones Trace (Negative) H 03/21/25 04:08 Urine Nitrite Positive (Negative) A 03/21/25 04:08 Ur Leukocyte Esterase 3+ (Negative) H 03/21/25 04:08 Urine WBC (Auto) >50 /hpf (0-5) H 03/21/25 04:08 Urine RBC (Auto) >20 /hpf (0-2) H 03/21/25 04:08 U Hyaline Cast (Auto) >20 /lpf (0-2) H 03/21/25 04:08 U Epithel Cells (Auto) 0-2 /hpf (0-2) 03/21/25 04:08 Urine Bacteria (Auto) 2+ (None Seen) H 03/21/25 04:08 03/21/25 04:58 Aerobic Blood Culture - Final Blood No growth in Aerobic bottle after 5 days. Anaerobic Blood Culture - Final No growth in Anaerobic bottle after 5 days. 03/21/25 04:08 Urine Culture - Final Urine,Clean Catch Acinetobacter baumannii/nosoco Enterobacter cloacae complex 03/21/25 12:45 Gram Stain - Final Sacrum Wound Culture - Final Staph aureus MRSA Acinetobacter baumannii/nosoco 03/21/25 12:45 Gram Stain - Final Abdomen Wound Culture - Final Staph aureus MRSA 03/21/25 04:00 Gram Stain - Final Foot,Left Wound Culture - Final Staph aureus MRSA
[2025-04-01] MEDS ORDERED: ONDANSETRON INJ 2 MG/ML 2 ML VIAL IV PRN (14:00)
[2025-04-01] MEDS ORDERED: ATROPINE SULFATE 0.1 MG/ML 10ML SYR IV PRN (14:00)
[2025-04-01] MEDS ORDERED: PROPOFOL IV EMULSION 10 MG/ML 20 ML VIAL IV ONE (14:10)
--- NOTE | 2025-04-01 14:26 | Post Operative Brief Note ---
Immediate Post Op Note Date of Surgery April 01, 2025 Pre & Post Diagnosis Operation Date: 04/01/25 15:30 Pre-Op Diagnosis: Urosepsis Post-Op Diagnosis: Urosepsis I identified the patient and participated in the time-out.: Yes Procedure Operation Date: 04/01/25 15:30 Actual Procedures p Insertion of Grande Catheter, Right Internal Juggular Approach, Ultrasound Localization of Right Internal Jugular Vein, Fluoroscopy for Positioning(Right), Moderate Conscious Sedation ( [id number])- Martin Alonso MD Surgeon Martin Alonso MD Assessment Manager MD Jesus Estimated Blood Loss 20 Findings Consistent with Post-Op Diagnosis Drains Sanchez Catheter (Placed prior to procedure- remains patent and intact) Anesthesia Type MAC Complications none Disposition Accompanied Patient To Recovery: No Disposition: Recovery Room
--- NOTE | 2025-04-01 14:39 | Operative Report ---
Post Operative Report Pre & Post Diagnosis Operation Date: 04/01/25 15:30 Complicated UTI in setting of chronic suprapubic catheter Stage IV pressure ulcer of left foot with possible osteomyelitis and chronic wounds Need for termite control representative antibiotics I identified the patient and participated in the time-out.: Yes Procedure Operation Date: 04/01/25 15:30 Right internal jugular vein single lumen Grande catheter placement, fluoroscopy for positioning, ultrasound localization of right internal jugular vein, moderate conscious sedation ([id number]) Surgeon Martin Alonso MD Tower Watchman Negin Ely MD Estimated Blood Loss 20 Findings See Below Completion fluoroscopy showed good position of the catheter with no evidence of kinks. The catheter aspirated and flushed easily at conclusion of the case. Specimens None Anesthesia Type RN Sedation Complications None Indications 49 year old male with history of paraplegia, autonomic dysreflexia, neurogenic bladder with chronic suprapubic catheter and recurrent UTIs, stage IV pressure ulcer of left foot with possible osteomyelitis and chronic wounds. Patient is being followed by ID and was recommended [facility] antibiotics. He was consulted to our service for placement of single lumen catheter for termite control representative antibiotics. Description of Procedure Patient was taken to the angio suite and placed in the supine position. The right side of the neck and chest wall were prepped and draped in a sterile manner. Local anesthesia was then administered to the appropriate areas of the neck and chest wall. Ultrasound was then used to locate the right internal jugular vein. The vein compressed easily, had no filling defects, and was patent. The patient did not tolerate light sedation and local anesthesia only. We requested assistance from the anesthesia team. They provided additional sedation and patient was now comfortable for the procedure. The vein was punctured under direct ultrasound imaging. A guidewire was then passed centrally under fluoroscopic imaging. The introducer sheath was placed. This was then exchanged for an 0.035' wire passed to the inferior vena cava and the introducer sheath was exchanged for the peel away sheath. A stab wound was then made in the anterior chest wall and the single lumen 8F Grande catheter was passed from the stab wound on the chest wall to the puncture site on the neck. The wire was positioned under fluoroscopy at the appropriate place and a clamp placed at the end of the wire to erin the measured position. The wire was removed and the catheter was cut to length with the end beveled. The catheter was then inserted through the sheath into position. The peel away sheath was then removed. The catheter was then sutured in place using nylon sutures. The puncture was then closed using a 4-0 Vicryl subcuticular suture. Dermabond was used for a dressing on the puncture site. The port aspirated and flushed easily and was packed with heparin. A sterile dressing was applied to the catheter. The patient left the angio suite in good condition and tolerated the procedure well. Dr Alonso was present for all critical parts of the procedure. I attest to the content of the Intraoperative Record and any orders documented therein. Any exceptions are noted below.
--- NOTE | 2025-04-01 15:35 | Anesthesiology Progress Note ---
Date of Service April 01, 2025 Anesthesia Post Procedure Vital Signs Vital Signs: Temp Pulse Pulse Resp BP BP Pulse Ox 04/01/25 15:20 36.4 C L 60 16 123/87 97 04/01/25 14:55 36.3 C L 54 L 12 126/87 100 04/01/25 14:45 58 L 9 L 128/88 100 04/01/25 14:35 36.2 C L 61 12 118/84 98 04/01/25 13:42 51 L 14 166/100 H 100 04/01/25 13:25 47 L 14 138/83 100 04/01/25 12:21 37.2 C 62 16 146/100 H 97 04/01/25 11:44 36.5 C 81 18 143/96 H 97 04/01/25 07:20 36.7 C 65 18 112/59 L 97 04/01/25 02:22 36.8 C 59 L 20 149/104 H 98 03/31/25 22:51 36.5 C 60 15 114/73 97 03/31/25 21:45 63 03/31/25 19:06 36.6 C 58 L 17 122/79 95 03/31/25 16:30 59 L 123/76 03/31/25 16:17 72 O2 Del Method O2 Flow Rate 04/01/25 15:20 Room Air 04/01/25 14:55 Oxymask 5 04/01/25 14:45 Oxymask 5 04/01/25 14:35 Oxymask 10 04/01/25 13:42 Oxymask 4 04/01/25 13:25 Oxymask 4 04/01/25 12:21 Room Air 04/01/25 11:44 Room Air 04/01/25 07:20 Room Air 04/01/25 02:22 Room Air 03/31/25 22:51 Room Air 03/31/25 21:45 03/31/25 19:06 Room Air 03/31/25 16:30 03/31/25 16:17 Pain Intensity Generalized: Pain Intensity: 7 Sacrum: Pain Intensity: 7 Right Chest: Pain Intensity: 2 Transfer of Care Handoff Completed per policy Notes Mental Status: alert / awake / arousable Patient Amnestic to Procedure: Yes Nausea / Vomiting: adequately controlled Pain: adequately controlled Airway Patency, RR, SpO2: stable & adequate BP & HR: stable & adequate Hydration State: stable & adequate Anesthetic Complications: no major complications apparent
[2025-04-01] MEDS: LIDOCAINE 1% LOCAL 20 ML VIAL ONE (16:00)
[2025-04-01] MEDS: ACETAMINOPHEN 1,000 MG/100 ML VIAL IV STA (19:45)
[2025-04-01] MEDS: APIXABAN 5 MG TABLET PO SCH (21:35)
[2025-04-02 06:27] LABS: Hematocrit (blood only) 32.7 % (42.0-52.0); Hemoglobin 9.9 g/dl (14.0-18.0); Mean Corpuscular Hemoglobin 23.2 pg (25.0-34.0); Mean Corpuscular Volume 76.6 fL (80.0-100.0); Platelet Count 200 K/uL (130-400); RDW Standard Deviation 47.5 fL (36.4-46.3); Red Blood Count 4.27 M/uL (4.70-6.10); White Blood Count 6.06 K/ul (4.8-10.8)
[2025-04-02 06:55] LABS: Anion Gap 5.0 (3-11); Blood Urea Nitrogen 8.0 mg/dl (6-23); Calcium 9.2 mg/dl (8.6-10.3); Carbon Dioxide 28.0 mmol/L (21-32); Chloride 106.0 mmol/L (98-107); Creatinine Clr Calc Pharmacy 253.4 ml/min; Glucose 85.0 mg/dl (70-99(Fasting)); Potassium 3.3 mmol/L (3.5-5.1); Sodium 139.0 mmol/L (136-145)
[2025-04-02] MEDS: POTASSIUM CHLORIDE 10 MEQ TABCR PO ONE (10:06)
--- NOTE | 2025-04-02 13:16 | Hospitalist Progress Note ---
Date of Service April 02, 2025 Assessment & Plan (1) Complicated urinary tract infection: (2) Suprapubic catheter: (3) Pressure ulcer of left foot, stage 4: (4) Acute osteomyelitis of metatarsal bone of left foot: (5) Sacral decubitus ulcer: (6) Chronic pain: (7) Hypokalemia: (8) Hypotension: (9) Bradycardia: (10) Quadriplegia: (11) Autonomic dysreflexia: (12) History of pulmonary embolism: (13) Seizure disorder: Plan Pt is a 49y/o M with PMHx significant for paraplegia, autonomic dysreflexia, neurogenic bladder with chronic suprapubic catheter with history of recurrent UTIs, history of PE on Eliquis, chronic sacral ulcer with history of osteomyelitis/cellulitis/debridement, history of septic shock, anxiety, COPD, history of polysubstance abuse, chronic pain, seizure disorder and history of leaving AMA who presented to the ED on 03/21/25 with generalized weakness, chills and nausea x 5 days. Currently admitted for complicated UTI ISO chronic suprapubic catheter, stage IV pressure ulcer of L foot with probable osteomyelitis on MRI and chronic wounds. Complicated UTI ISO chronic suprapubic catheter placement 2/2 neurogenic bladder Did not meet sepsis criteria on admission Urine culture grew Acinetobacter baumannii/nosoco, Enterobacter cloacae complex ID consulted and pt discussed with Dr. Kilgore via TT on 03/25/25 by previous provider: -Recommends IV cefepime 2g Q8H (instead of meropenem) + IV vancomycin 1500mg Q12H x 6 weeks with EOT on 05/04/25 -Multiple attempts made by IV team for PICC line placement however were unable to get anything placed 2/2 inadequate vessel size -Pt missed 1 dose of IV cefepime in the evening on 03/31/25 d/t IV site issues (per RN: unable to flush site, positional IV) -S/p R internal jugular vein Grande catheter placement with vascular surgery on 04/01/25 CM following for placement Pt is a difficult placement d/t reputation with prior agencies and nursing homes, h/o polysubstance abuse Stage IV pressure ulcer of the L foot Probable osteomyelitis of the L 5th metatarsal seen on L foot MRI completed 03/21/25 Wound cx from L foot ulcer grew Staph aureus MRSA Podiatry consulted and recommended: -Offload area of ulceration with waffle boot and pillow behind the L ankle -Dressing change to the L foot once daily with Aquacel Ag and Optifoam dressing (dressing ordered placed) -Treatment with 6 weeks of IV antibiotics as per above Sacral decubitus ulcer Chronic wound with history of multiple episodes of osteomyelitis and surgical debridement CTAP: evidence of sacral decubitus ulcer with focal soft tissue defect and erosion of distal sacrum and coccyx - stable Pt previously declined wound care services -Pt now requesting wound care consult --> wound care reconsulted -Turn and reposition Q2H Chronic pain syndrome History of polysubstance abuse Admitting drug screen positive for marijuana only Pt trialed Suboxone previously and stopped taking it due to constipation side effect Reports full body burning pain is controlled on below regimen: -Continue baclofen and nortriptyline (baclofen resumed on 04/01/25 - previously held 2/2 sedation) -Lyrica increased to 50mg TID this admission -Pain management added duloxetine 60mg daily this admission -Mod to sev pain control with oxycodone 10mg q4hr PRN Added on IV morphine 1mg Q4H PRN for breakthrough pain (pt with discomfort at Grande catheter insertion site) Bradycardia Chronic hypotension, history of autonomic dysreflexia Chronic hypotension and bradycardia 2/2 autonomic dysreflexia ISO prior spinal cord injury Continue midodrine TID with hold parameters if SBP>140 (d/w RN, communication order placed) -Of note, it is not usual that his BP jumps when his suprapubic catheter is being flushed per bell staff --> typically improves once done Paraplegia d/t spinal cord injury Continue home bowel regimen Able to move BUE; wheelchair bound at baseline History of PE Eliquis resumed last night s/p Grande catheter placement (was previously on hold for procedure) COPD Stable, no s/sx of acute exacerbation Continue home inhalers Seizure disorder Continue Keppra GERD Continue PPI DVT Prophylaxis: Eliquis Code Status: FULL CODE Disposition: DC plans uncertain at this time Appreciate CM assistance for placement --> difficult placement 2/2 prior issues with agencies, h/o substance abuse Patient seen in collaboration with Dr. Vela. Please see addendum. I spent a total of 40 minutes coordinating, documenting, and providing care for this patient excluding time spent in the performance of separately billed services or time spent by another provider/QHP. This included personally reviewing all current laboratories and imaging studies, medical reconciliation, outpatient chart review and discussion with specialists. This chart was completed in part utilizing Speech Voice Recognition Software. Grammatical errors, random word insertions, pronoun errors, and incomplete sentences are an occasional consequence of this system due to software limitations, ambient noise, and hardware issues. Any formal questions or concerns about the content, text, or information contained within the body of this dictation should be directly addressed to the provider for clarification. Admission and Anticipated Discharge Date Admission Date: March 21, 2025 Supervising Physician Co-Signing Physician Notes Patient is seen and examined at bedside. Patient states having pain at Grande's catheter site. No other complaints today. On exam patient is well- built, nourished, no apparent distress, normocephalic atraumatic, EOMI, normal breath sounds, clear to auscultation, S1-S2, no murmur, no pedal edema, abdomen soft, nontender, normal bowel sounds, alert, awake, oriented,+ paraplegia. Currently being managed for complicated urinary tract infection, stage IV left foot ulceration concerning for osteomyelitis, sacral decubitus ulcer. Grande's catheter placed for IV antibiotics due to poor access. Appreciate vascular surgery input. Resumed Eliquis. Continue IV vancomycin, cefepime as recommended by infectious disease. Patient's care is coordinated with Nguyen Doss PA-C . Please refer to the documentation above for details of patient's presentation and for discussion of other issues. I spent a total [id number] coordinating, documenting, and providing care for this patient excluding time spent in the performance of separately billed services or time spent by another provider/QHP. Subjective Pt seen and examined in room 208-1. Sleepy but easily arousable. Had Grande catheter placed yesterday for custodial IV ABX therapy. Endorses some pain around the Grande catheter site. Due for next dose of PRN oxy IR soon. Eliquis restart ed last evening per vascular surgery recommendations. Review of Systems Review of Systems: At least ten systems reviewed and negative except as noted in the HPI. Physical Exam Physical Exam: General/Neurologic: M, NAD, resting in bed (sleepy but easily arousable), A&Ox3, cooperative with questioning HEENT: Normocephalic, atraumatic, moist mucous membranes Respiratory: Normal respiratory effort, CTAB Cardiovascular: RRR, no BLE edema Abdomen/GI: Active bowel sounds, soft, nontender to palpation in all quadrants : + suprapubic catheter intact and draining clear/yellow urine Extremities/MSK: + paraplegic (able to move BUE), L foot wound dressings C/D/I, + Grande cath site in R upper chest wall (somewhat TTP) Results & Data Results & Data Vital Signs (Past 12 Hours) Vital Signs Temp Pulse Pulse Resp BP BP Pulse Ox 04/02/25 11:02 35.7 C L 18 196/118 H 201/115 H 95 04/02/25 07:43 36.4 C L 64 17 137/94 96 04/02/25 07:14 56 L 04/02/25 02:41 36.8 C 53 L 20 157/80 H 97 O2 Del Method 04/02/25 11:02 Room Air 04/02/25 07:43 Room Air 04/02/25 07:14 04/02/25 02:41 Room Air Laboratory Results Short CBC 04/02/25 Range/Units 05:54 WBC 6.06 (4.8-10.8) K/ul Hgb 9.9 L (14.0-18.0) g/dl Hct 32.7 L (42.0-52.0) % Plt Count 200 (130-400) K/uL BMP 04/02/25 05:54 Sodium 139 Potassium 3.3 L Chloride 106 Carbon Dioxide 28 BUN 8 Creatinine 0.39 L Glucose 85 Calcium 9.2 (5) Sacral decubitus ulcer Pressure injury stage: stage 4 Qualified Code(s): L89.154 - Pressure ulcer of sacral region, stage 4 (6) Chronic pain Chronic pain type: due to trauma Qualified Code(s): G89.21 - Chronic pain due to trauma (8) Hypotension Hypotension type: unspecified hypotension type Qualified Code(s): I95.9 - Hypotension, unspecified
[2025-04-02] MEDS: MoRPHine SULFATE 2 MG/ML CARP IV PRN (21:27)
[2025-04-03 06:27] LABS: Hematocrit (blood only) 35.8 % (42.0-52.0); Hemoglobin 10.6 g/dl (14.0-18.0); Mean Corpuscular Hemoglobin 23.0 pg (25.0-34.0); Mean Corpuscular Volume 77.7 fL (80.0-100.0); Platelet Count 202 K/uL (130-400); RDW Standard Deviation 47.1 fL (36.4-46.3); Red Blood Count 4.61 M/uL (4.70-6.10); White Blood Count 7.81 K/ul (4.8-10.8)
[2025-04-03 06:49] LABS: Anion Gap 6.0 (3-11); Blood Urea Nitrogen 10.0 mg/dl (6-23); Calcium 9.3 mg/dl (8.6-10.3); Carbon Dioxide 27.0 mmol/L (21-32); Chloride 107.0 mmol/L (98-107); Creatinine Clr Calc Pharmacy 268.9 ml/min; Glucose 97.0 mg/dl (70-99(Fasting)); Magnesium 1.7 mg/dl (1.7-2.4); Potassium 3.4 mmol/L (3.5-5.1); Sodium 140.0 mmol/L (136-145)
[2025-04-03] MEDS ORDERED: POTASSIUM PHOS 3 MMOL/1 ML INFUSION IV STA (07:30)
[2025-04-03] MEDS: POTASSIUM PHOSPHATE 15 MMOL in SODIUM CHLORIDE 0.9% 250 ML IV ONE (07:57)
[2025-04-03 08:12] LABS: Iron 23.0 mcg/dl (35-175); Total Iron Binding Cap Calc 451.0 mcg/dl (250-450); Transferrin 322.0 mg/dl (200-360); Transferrin (FE) Percent Satur 5.0 % (20-50)
[2025-04-03 08:33] LABS: Ferritin 12.6 ng/ml (8-388)
[2025-04-03] MEDS: MAGNESIUM SULFATE / D5W 1 GM/100 ML BAG IV SCH (10:09)
--- NOTE | 2025-04-03 10:58 | Hospitalist Progress Note ---
Date of Service April 03, 2025 Assessment & Plan (1) Complicated urinary tract infection: (2) Suprapubic catheter: (3) Pressure ulcer of left foot, stage 4: (4) Acute osteomyelitis of metatarsal bone of left foot: (5) Sacral decubitus ulcer: (6) Chronic pain: (7) Hypokalemia: (8) Hypotension: (9) Bradycardia: (10) Quadriplegia: (11) Autonomic dysreflexia: (12) History of pulmonary embolism: (13) Seizure disorder: Plan Pt is a 49y/o M with PMHx significant for paraplegia, autonomic dysreflexia, neurogenic bladder with chronic suprapubic catheter with history of recurrent UTIs, history of PE on Eliquis, chronic sacral ulcer with history of osteomyelitis/cellulitis/debridement, history of septic shock, anxiety, COPD, history of polysubstance abuse, chronic pain, seizure disorder and history of leaving AMA who presented to the ED on 03/21/25 with generalized weakness, chills and nausea x 5 days. Currently admitted for complicated UTI ISO chronic suprapubic catheter, stage IV pressure ulcer of L foot with probable osteomyelitis on MRI and chronic wounds. Complicated UTI ISO chronic suprapubic catheter placement 2/2 neurogenic bladder Did not meet sepsis criteria on admission Urine culture grew Acinetobacter baumannii/nosoco, Enterobacter cloacae complex ID consulted and pt discussed with Dr. Kilgore via TT on 03/25/25 by previous provider: -Recommends IV cefepime 2g Q8H (instead of meropenem) + IV vancomycin 1500mg Q12H x 6 weeks with EOT on 05/04/25 -Multiple attempts made by IV team for PICC line placement however were unable to get anything placed 2/2 inadequate vessel size -Missed 1 dose of IV cefepime in the evening on 03/31/25 d/t IV site issues (per RN: unable to flush site, positional IV) -S/p R internal jugular vein Grande catheter placement with vascular surg on 04/01/25 for ABX administration CM following for placement Pt is a difficult placement d/t reputation with prior agencies and nursing homes, h/o polysubstance abuse TT to vascular surg [facility], Patt Dia, this AM regarding plan for Grande catheter removal once ABX completed -Informed that pt and/or SNF facility (pending placement) will need to call their office in order to schedule removal once ABX completed Stage IV pressure ulcer of the L foot Probable osteomyelitis of the L 5th metatarsal seen on L foot MRI completed 03/21/25 Wound cx from L foot ulcer grew Staph aureus MRSA Podiatry consulted and recommended: -Offload area of ulceration with waffle boot and pillow behind the L ankle -Dressing change to the L foot once daily with Aquacel Ag and Optifoam dressing (dressing ordered placed) -Treatment with 6 weeks of IV antibiotics as per above Sacral decubitus ulcer Chronic wound with history of multiple episodes of osteomyelitis and surgical debridement CTAP: evidence of sacral decubitus ulcer with focal soft tissue defect and erosion of distal sacrum and coccyx - stable Pt previously declined wound care services -Pt requested that wound care be reconsulted over the weekend -Discussed wound care consult again with pt this AM --> pt now refusing wound care evaluation as this AM (communicated with manager pestMargo) -Attempt to turn and reposition Q2H --> pt dictating to staff when he wants to be repositioned Chronic pain syndrome History of polysubstance abuse Admitting drug screen positive for marijuana only Pt trialed Suboxone previously and stopped taking it due to constipation side effect Reports full body burning pain is controlled on below regimen: -Continue baclofen and nortriptyline (baclofen resumed on 04/01/25 - previously held 2/2 sedation) -Lyrica increased to 50mg TID this admission -Pain management added duloxetine 60mg daily this admission -Mod to sev pain control with oxycodone 10mg q4hr PRN IV morphine 1mg Q4H PRN for breakthrough pain only (pt still with discomfort at Grande catheter insertion site) Bradycardia Chronic hypotension, history of autonomic dysreflexia Chronic hypotension and bradycardia 2/2 autonomic dysreflexia ISO prior spinal cord injury Continue midodrine TID with hold parameters if SBP>140 (d/w RN, communication order placed) -Of note, it is not usual that his BP jumps when his suprapubic catheter is being flushed per member of technical staff --> typically improves once done Paraplegia d/t spinal cord injury Continue home bowel regimen Able to move BUE; wheelchair bound at baseline History of PE Eliquis resumed on 04/01/25 s/p Grande catheter placement (was previously on hold for procedure) COPD Stable, no s/sx of acute exacerbation Continue home inhalers Seizure disorder Continue Keppra GERD Continue PPI Anemia Iron 23, ferritin 12.6 Will start Fe supplementation tomorrow AM --> pt agreeable per our discussion with AM H/H overall stable; no indication to transfuse at this time Continue to monitor Hypokalemia Repleted via IV this AM, also given IV mag since <2 Continue to monitor and replete PRN DVT Prophylaxis: Eliquis Code Status: FULL CODE Disposition: DC plans uncertain at this time Appreciate CM assistance for placement --> difficult placement 2/2 prior issues with HH agencies, h/o substance abuse Patient seen in collaboration with Dr. Koenig. Please see addendum. I spent a total of 38 minutes coordinating, documenting, and providing care for this patient excluding time spent in the performance of separately billed services or time spent by another provider/QHP. This included personally reviewing all current laboratories and imaging studies, medical reconciliation, outpatient chart review and discussion with specialists. This chart was completed in part utilizing Speech Voice Recognition Software. Grammatical errors, random word insertions, pronoun errors, and incomplete sentences are an occasional consequence of this system due to software limitations, ambient noise, and hardware issues. Any formal questions or concerns about the content, text, or information contained within the body of this dictation should be directly addressed to the provider for clarification. Admission and Anticipated Discharge Date Admission Date: March 21, 2025 Supervising Physician Co-Signing Physician Notes Patient seen and examined Agree with findings as detailed by Nguyen Doss PA-C Subjective Pt seen and examined in room 208-1. More awake this AM. Endorses mild discomfort at Grande catheter insertion site, unchanged from yesterday. Tolerating breakfast without issue. Discussed his prior inquiry regarding reexamination by wound care, specifically his sacral decubitus ulcer. Pt refusing wound care evaluation again this AM. Review of Systems Review of Systems: At least ten systems reviewed and negative except as noted in the HPI. Physical Exam Physical Exam: General/Neurologic: M, NAD, resting in bed (more alert this AM), A&Ox3, cooperative with questioning HEENT: Normocephalic, atraumatic, moist mucous membranes Respiratory: Normal respiratory effort, CTAB Cardiovascular: RRR, no BLE edema Abdomen/GI: Active bowel sounds, soft, nontender to palpation in all quadrants : + suprapubic catheter intact Extremities/MSK: + paraplegic (able to move BUE), L foot wound dressings C/D/I, + Grande cath site in R upper chest wall (mildly TTP), pt refused examination of his sacral decubitus ulcer Results & Data Results & Data Vital Signs (Past 12 Hours) Vital Signs Temp Pulse Resp BP BP Pulse Ox O2 Del Method 04/03/25 07:50 36.4 C L 54 L 18 120/79 95 Room Air 04/03/25 03:09 37.0 C 57 L 14 102/72 96 Room Air Laboratory Results Short CBC 04/03/25 Range/Units 05:54 WBC 7.81 (4.8-10.8) K/ul Hgb 10.6 L (14.0-18.0) g/dl Hct 35.8 L (42.0-52.0) % Plt Count 202 (130-400) K/uL BMP 04/03/25 05:54 Sodium 140 Potassium 3.4 L Chloride 107 Carbon Dioxide 27 BUN 10 Creatinine 0.37 L Glucose 97 Calcium 9.3 (5) Sacral decubitus ulcer Pressure injury stage: stage 4 Qualified Code(s): L89.154 - Pressure ulcer of sacral region, stage 4 (6) Chronic pain Chronic pain type: due to trauma Qualified Code(s): G89.21 - Chronic pain due to trauma (8) Hypotension Hypotension type: unspecified hypotension type Qualified Code(s): I95.9 - Hypotension, unspecified
[2025-04-03] MEDS: VANCOMYCIN LEVEL ONE (11:50)
[2025-04-03] MEDS: POLYETHYLENE (MIRALAX) 17 GM PACK PO PRN (11:54)
--- NOTE | 2025-04-03 13:24 | Pharmacy Report ---
Pharmacy PK ABX Note - Date of Service April 03, 2025 - Assessment and Plan Assessment 04/03 * Obtained lab slightly early d/t adjustment in schedule/IV issues * Random level this 22.7 mcg/mL--> correlates with therapeutic dosing, will continue with current 03/29 * 49 year old M receiving vancomycin and cefepime per ID recommendation for treatment of left foot osteomyelitis. * MRSA isolated from L foot, sacrum, and abdomen cultures. Enterobacter and elizondo-sensititive Acinetobacter baumannii isolated from urine culture. CRAB now also isolated from sacral culture. * PMHx significant for quadriplegia with neurogenic bladder requiring a suprapubic catheter, frequent UTIs, recent admission for bacteremia. History of pseudomonas and MRSA in past. Recently started on Cipro. * SCr at baseline of ~0.5 mg/dL, this is likely inaccurate due to low muscle mass in quadriplegic patient. * End date for cefepime and vancomycin is 05/04/25 per ID. Plan Vancomycin * Target AUC/BEATRIZ of 400-600 mg/L.hr * Random level of 22.7 mcg/mL today associated with a therapeutic AUC of 546 mg/L.hr * Continue vancomycin 1500 mg IV every 12 hours * Random level in 7 days Pharmacy will continue to follow and will adjust dose/frequency as necessary. Thank you. Pharmacy has transitioned to AUC monitoring for vancomycin. AUC/BEATRIZ is the preferred PK/PD target and is associated with decreased risk of nephrotoxicity compared to traditional trough targets.
[2025-04-04 05:55] LABS: Hematocrit (blood only) 32.9 % (42.0-52.0); Hemoglobin 10.0 g/dl (14.0-18.0); Mean Corpuscular Hemoglobin 23.6 pg (25.0-34.0); Mean Corpuscular Volume 77.6 fL (80.0-100.0); Platelet Count 161 K/uL (130-400); RDW Standard Deviation 47.5 fL (36.4-46.3); Red Blood Count 4.24 M/uL (4.70-6.10); White Blood Count 6.07 K/ul (4.8-10.8)
[2025-04-04 06:09] LABS: Anion Gap 6.0 (3-11); Blood Urea Nitrogen 10.0 mg/dl (6-23); Calcium 9.1 mg/dl (8.6-10.3); Carbon Dioxide 26.0 mmol/L (21-32); Chloride 108.0 mmol/L (98-107); Creatinine Clr Calc Pharmacy 199.0 ml/min; Glucose 112.0 mg/dl (70-99(Fasting)); Magnesium 2.0 mg/dl (1.7-2.4); Potassium 3.2 mmol/L (3.5-5.1); Sodium 140.0 mmol/L (136-145)
[2025-04-04] MEDS: FERROUS SULFATE 325 MG TAB PO SCH (08:49)
--- NOTE | 2025-04-04 09:01 | Hospitalist Progress Note ---
Date of Service April 04, 2025 Assessment & Plan (1) Complicated urinary tract infection: (2) Suprapubic catheter: (3) Pressure ulcer of left foot, stage 4: (4) Acute osteomyelitis of metatarsal bone of left foot: (5) Sacral decubitus ulcer: (6) Chronic pain: (7) Hypokalemia: (8) Hypotension: (9) Bradycardia: (10) Quadriplegia: (11) Autonomic dysreflexia: (12) History of pulmonary embolism: (13) Seizure disorder: Plan 49 year old male with PMH significant for paraplegia, autonomic dysreflexia, neurogenic bladder with suprapubic cath, history of PE on anticoagulation, chronic sacral ulcer with history of osteomyelitis and cellulitis and multiple debridements, history of complicated UTI, history of septic shock, anxiety disorder, COPD, history of polysubstance abuse, chronic pain, seizure disorder, history of leaving AMA who presented to the ED on 03/21/2025 with weakness, chills, nausea without vomiting x5 days and is admitted for complicated UTI. Complicated UTI due to suprapubic catheter Patient did not meet sepsis criteria on admission Urine culture grew acinetobacter baumannii/nosoco Plan: -ID consulted and discussed with Dr Kilgore via TT on 03/25: recommends IV cefepime 2g q8hr (instead of meropenem) and IV vancomycin 1500mg q12hr for 6 weeks (end date 05/04/25) -Continue oxybutynin -Unable to place PICC line due to inadequate vessel size -s/p R internal jugular vein Grande catheter placement by Dr Ely on 04/01/25 - will need to schedule removal with Vascular Surgery outpatient once abx completed -CM following for placement at [facility]/ if facilities do not accept Stage IV pressure ulcer of left foot Foot MRI revealed probable osteomyelitis Wound culture grew staph aureus MRSA Podiatry consulted and recommends: -Offload with waffle boot and pillow -Daily dressing changes per orders -Treatment with 6 weeks IV antibiotics as above Sacral decubitus ulcer Chronic wound with history of multiple episodes of osteomyelitis and surgical debridement CTAP reveals focal soft tissue defect and erosion of distal sacrum and coccyx - stable Continue wound care Turn and reposition q2hr Chronic Pain Syndrome Chronic pain and history of polysubstance abuse Admitting drug screen positive for marijuana only Patient trialed suboxone previously and stopped taking due to constipation side effect Reports full body burning pain is controlled on below regimen Plan: -Continue baclofen and nortriptyline -Lyrica increased to 50mg tid this admission -Pain management added duloxetine 60 mg daily this admission -Breakthrough pain control with oxycodone 10mg q4hr PRN -Re-engage pain management for breakthrough pain regimen Chronic Hypotension Bradycardia Autonomic dysreflexia Chronic hypotension and bradycardia secondary to autonomic dysreflexia in setting of spinal cord injury Continue midodrine tid Paraplegia Continue home bowel regimen History of PE Continue Eliquis CARLOTA Iron 23, TIBC 451, ferritin 12, TSAT 5% Continue ferrous sulfate started this admission COPD Continue inhalers Seizure disorder Continue keppra GERD Continue PPI DVT Prophylaxis: on Eliquis Code Status: FULL CODE PCP: Chay Aguilar Disposition: medically cleared for discharge pending SNF acceptance - downgrade to med surg Patient seen in collaboration with Dr Koenig. Please see addendum. I spent a total of 50 minutes coordinating, documenting and providing care for this patient excluding time spent in the performance of separately billed services or time spent by another provider/QHP. Admission and Anticipated Discharge Date Admission Date: March 21, 2025 Supervising Physician Co-Signing Physician Notes Patient seen and examined Agree with findings and plans as detailed by Karol VASQUEZ Subjective Patient seen resting in bed Reports neck pain that he attributes to sleeping funny No other acute concerns Denies chest pain, SOB, abdominal pain, N/V/D Review of Systems Review of Systems: All systems reviewed & are unremarkable except as noted in Subjective Physical Exam Physical Exam: General/Psych: WD/WN, laying in bed, NAD, conversing easily Head: normocephalic, atraumatic Eyes: normal inspection, PERRL, conjunctivae pink ENT: external ear and nose normal, oropharynx normal Neck: normal visual inspection, trachea midline Respiratory: normal respiratory effort, lungs clear to auscultation, no wheeze/rales/rhonchi, no accessory muscle use Cardiovascular: regular rate and rhythm, no murmur/rub/gallop, no JVD Extremities: no cyanosis or clubbing, normal peripheral pulses, no BLE edema Abdomen/GI: normal bowel sounds, soft, nontender Neurologic/MSK: A+Ox3, paraplegia - able to move BUE Skin: no rashes, normal color, warm and dry; unable to assess sacral wound; left foot wound with silver and optifoam dressings Results & Data Results & Data Vital Signs (Past 12 Hours) Vital Signs Temp Pulse Pulse Resp BP Pulse Ox O2 Del Method 04/04/25 08:08 36.5 C 58 L 16 117/74 97 Room Air 04/04/25 06:00 51 L 04/04/25 05:14 36.7 C 52 L 16 126/90 98 Room Air 04/03/25 23:57 36.8 C 51 L 16 96 Room Air 04/03/25 22:03 58 L Laboratory Results Short CBC 04/04/25 Range/Units 05:31 WBC 6.07 (4.8-10.8) K/ul Hgb 10.0 L (14.0-18.0) g/dl Hct 32.9 L (42.0-52.0) % Plt Count 161 (130-400) K/uL BMP 04/04/25 05:31 Sodium 140 Potassium 3.2 L Chloride 108 H Carbon Dioxide 26 BUN 10 Creatinine 0.50 L Glucose 112 H Calcium 9.1 I have independently reviewed and interpreted patient's labs including CBC and BMP Medications Administered Current Inpatient Medications Acetaminophen (Acetaminophen 325 Mg Tab) 650 mg PO Q4H PRN PRN Reason: Pain or Fever Stop: 04/20/25 10:46 Last Admin: 04/04/25 08:47 Dose: 650 mg Apixaban (Apixaban 5 Mg Tablet) 5 mg PO BID ROSALES Stop: 05/01/25 20:59 Last Admin: 04/04/25 08:48 Dose: 5 mg Baclofen (Baclofen 20 Mg Tab) 20 mg PO TID ROSALES Stop: 04/20/25 13:59 Last Admin: 04/04/25 08:48 Dose: 20 mg Bisacodyl (Bisacodyl 10 Mg Supp) 10 mg FL BID ROSALES Stop: 04/20/25 20:59 Last Admin: 04/04/25 08:49 Dose: Not Given Duloxetine HCl (Duloxetine Hcl 60 Mg Cap) 60 mg PO QAM [facility] Stop: 04/21/25 08:59 Last Admin: 04/04/25 08:48 Dose: 60 mg Ferrous Sulfate (Ferrous Sulfate 325 Mg Tab) 325 mg PO QAM ROSALES Stop: 05/04/25 08:59 Last Admin: 04/04/25 08:49 Dose: 325 mg Fluticasone/Vilanterol (Fluticasone/Vilanterol 200/25mcg 14 Puffs/Inhaler) 1 puffs INH DAILY [facility]; Protocol Stop: 04/21/25 10:14 Last Admin: 04/04/25 08:48 Dose: 1 puffs Heparin Sodium (Beef Lung) (Heparin 10 Unit/Ml 5 Ml Flush) 5 ml FLUSH PRN PRN PRN Reason: Flush Stop: 05/02/25 08:06 Hydroxyzine HCl (Hydroxyzine Hcl 25 Mg Tab) 25 mg PO DAILY PRN PRN Reason: Anxiety Stop: 04/20/25 10:46 Vancomycin HCl 1,500 mg/ (Sodium Chloride) 530 mls @ 200 mls/hr IV Q12H [facility] Stop: 05/04/25 23:59 Last Infusion: 04/04/25 08:12 Dose: Infused Cefepime HCl (Maxipime 2000mg) 2,000 mg in 20 mls @ 5 mls/min IV Q8H [facility]; Protocol Stop: 05/04/25 23:59 Last Admin: 04/04/25 08:48 Dose: 5 mls/min Lactulose (Lactulose Syrup 20 Gm/30 Ml Udc) 20 gm PO TID [facility] Stop: 04/20/25 13:59 Last Admin: 04/04/25 08:49 Dose: Not Given Levetiracetam (Levetiracetam 500 Mg Tab) 1,000 mg PO BID [facility] Stop: 04/20/25 20:59 Last Admin: 04/04/25 08:48 Dose: 1,000 mg Melatonin (Melatonin 3 Mg Tab) 3 mg PO HS [facility] Stop: 04/20/25 20:59 Last Admin: 04/03/25 21:15 Dose: 3 mg Midodrine (Midodrine Hcl 10 Mg Tab) 10 mg PO DAILY@0800,1200,1700 [facility] Stop: 04/20/25 16:59 Last Admin: 04/04/25 08:48 Dose: 10 mg Miscellaneous Information (Vancomycin Consult Active) 1 each N/A UD PRN PRN Reason: Consult Stop: 05/04/25 23:59 Morphine Sulfate (Morphine Sulfate 2 Mg/Ml Carp) 1 mg IV Q4H PRN PRN Reason: Breakthrough Pain Stop: 04/16/25 12:57 Last Admin: 04/03/25 23:36 Dose: 1 mg Nortriptyline HCl (Nortriptyline Hcl 25 Mg Cap) 25 mg PO DAILY@1999 [facility] Stop: 04/21/25 19:59 Last Admin: 04/03/25 21:17 Dose: 25 mg Ondansetron HCl (Ondansetron Inj 2 Mg/Ml 2 Ml Vial) 4 mg IV Q6H PRN PRN Reason: Nausea Stop: 04/20/25 10:46 Last Admin: 03/22/25 17:21 Dose: 4 mg Oxybutynin Chloride (Oxybutynin Chloride Xl 5 Mg Tabcr) 10 mg PO QAM [facility] Stop: 04/20/25 11:29 Last Admin: 04/04/25 08:49 Dose: 10 mg Oxycodone HCl (Oxycodone Hcl Ir 5 Mg Tab (Immediate Release)) 10 mg PO Q4H PRN PRN Reason: Mod-Sev Pain (Scale 4-10) Stop: 04/05/25 07:24 Last Admin: 04/04/25 08:47 Dose: 10 mg Pantoprazole Sodium (Pantoprazole 40 Mg Tab) 40 mg PO DAILY [facility] Stop: 04/20/25 11:29 Last Admin: 04/04/25 08:48 Dose: 40 mg Polyethylene Glycol (Polyethylene (Miralax) 17 Gm Pack) 17 gm PO DAILY PRN PRN Reason: Constipation Stop: 04/20/25 10:46 Last Admin: 04/03/25 11:54 Dose: 17 gm Pregabalin (Pregabalin 50 Mg Cap) 50 mg PO TID [facility] Stop: 04/22/25 13:59 Last Admin: 04/04/25 08:47 Dose: 50 mg Senna/Docusate Sodium (Docusate Sodium/Senna 50/8.6mg Tab) 2 tab PO HS [facility] Stop: 04/20/25 20:59 Last Admin: 04/04/25 00:36 Dose: Not Given Simethicone (Simethicone 80 Mg Chew) 80 mg PO TID PRN PRN Reason: gas Stop: 04/20/25 13:59 Last Admin: 03/30/25 08:33 Dose: 80 mg Umeclidinium [place] (Umeclidinium [place] 62.5mcg/Blister 7 Puffs/Inhaler) 1 puffs INH QAM ROSALES Stop: 04/21/25 08:59 Last Admin: 04/04/25 08:47 Dose: 1 puffs (5) Sacral decubitus ulcer Pressure injury stage: stage 4 Qualified Code(s): L89.154 - Pressure ulcer of sacral region, stage 4 (6) Chronic pain Chronic pain type: due to trauma Qualified Code(s): G89.21 - Chronic pain due to trauma (8) Hypotension Hypotension type: unspecified hypotension type Qualified Code(s): I95.9 - Hypotension, unspecified
[2025-04-04] MEDS: POTASSIUM CHLORIDE CRTAB 20 MEQ TABCR PO ONE (17:21)
[2025-04-05] MEDS: diphenhydrAMINE Capsule 25 MG CAP PO ONE (05:39)
[2025-04-05] MEDS: diphenhydrAMINE 2%/ZINC 0.1% CREAM 28.4GM TUBE EXT PRN (06:13)
[2025-04-05 07:01] LABS: Hematocrit (blood only) 33.9 % (42.0-52.0); Hemoglobin 10.4 g/dl (14.0-18.0); Mean Corpuscular Hemoglobin 23.6 pg (25.0-34.0); Mean Corpuscular Volume 76.9 fL (80.0-100.0); Platelet Count 180 K/uL (130-400); RDW Standard Deviation 47.3 fL (36.4-46.3); Red Blood Count 4.41 M/uL (4.70-6.10); White Blood Count 6.44 K/ul (4.8-10.8)
[2025-04-05 07:23] LABS: Anion Gap 4.0 (3-11); Blood Urea Nitrogen 7.0 mg/dl (6-23); Calcium 9.4 mg/dl (8.6-10.3); Carbon Dioxide 27.0 mmol/L (21-32); Chloride 108.0 mmol/L (98-107); Creatinine Clr Calc Pharmacy 244.9 ml/min; Glucose 88.0 mg/dl (70-99(Fasting)); Magnesium 1.8 mg/dl (1.7-2.4); Potassium 3.7 mmol/L (3.5-5.1); Sodium 139.0 mmol/L (136-145)
--- NOTE | 2025-04-05 07:55 | Pain Management Progress Note ---
Date of Service April 05, 2025 Assessment & Plan (1) Chronic pain: Chronic pain type: due to trauma Qualified Code(s): G89.21 - Chronic pain due to trauma (2) Spinal cord injury, cervical region: (3) Quadriplegia: (4) Pressure ulcer of left foot, stage 4: (5) Sacral decubitus ulcer: Pressure injury stage: stage 4 Qualified Code(s): L89.154 - Pressure ulcer of sacral region, stage 4 (6) History of illicit drug use: Plan 1. Patient has multifactorial pain complaints associated with his history of cervical spinal cord injury as well as sacral decubitus-chronic and left foot ulceration with suspected osteomyelitis. Complicated ability to provide adequate pain control given his history of spinal cord injury. Patient would be a poor candidate for chronic long-acting opiate therapy in the outpatient setting due to his history of illicit drug use with risk of misuse. Would not recommend chronic use of long-acting opiate therapy in the outpatient setting. 2. Patient is not a candidate for any interventional treatment directed at his pain complaints 3. Added duloxetine 60 mg daily this admission 4. Pregabalin dose increased from 50mg PO BID to 50mg PO TID. Could consider further escalation as he seems to have efficacy. Defer to medicine service given concomitant utilization of levetiracetam 5. Continue nortriptyline 25 mg PO HS. Consider increasing to 50mg PO HS as patient has complaints of nighttime pain and getting comfortable sleeping 6. Recommend increasing Oxy IR to 15 mg every 4 H for as needed breakthrough pain-dose was adjusted. Monitor response. 7. Avoid Morphine as he had apparent bradycardia. HR now sustained in the 60s. Consider IV Hydromorphone 0.5mg q6h as needed for severe pain. 8. Recommend ICU bed or another bed that auto rotates patient as he has sacral wound and has incomplete quadriplegic so he can not adequately reposition himself. Chief complaint today is sacral pain 9. Patient may consider outpatient evaluation for use of medical marijuana Thank you for including us in the care of this patient. Please feel free to contact us with any further questions. Care plan discussed with Dr. Aaron Admission and Anticipated Discharge Date Admission Date: March 21, 2025 Subjective Attending: Dr. Aaron Mr. 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 Patient has been admitted for complicated UTI with a known stage IV pressure ulcer of the left foot with concern for osteomyelitis and known sacral decubitus ulcer. Patient has history of chronic pain primarily associated with the sacral decubitus ulcer where he feels aching and throbbing characteristic pain in the sacral region which can extend into the abdomen and groin. The patient is chronically on baclofen 3 times daily, Lyrica 3 times daily, Keppra twice daily, and nortriptyline at bedtime. Patient reports that he has increased pain in sacral decubitus region from the ulcer. He has difficulty with repositioning which aggravates the pain. Nursing reports that patient has been resistant to manual repositioning. Patient was on Oxycodon 5 mg but stated he had limited efficacy. Patient was then increased to 10 mg every 4 hours. Patient was also started on duloxetine this admission. Patient reports that he is taking oxycodone and that does provide good pain control but is short lasting. Patient also reports that he has irritation at his Grande insertion site and has been scratching it overnight. There are no open wounds to around at this point and dressing is intact. Patient did receive hydroxyzine as well as diphenhydramine which provided some relief. Patient did report that he had 1 dose of morphine sulfate 1 mg for breakthrough pain. This apparently caused worsening bradycardia and rate dropped in the 40s. Patient currently is rate controlled in the 60s. He denies any chest pain or tightness. No shortness of breath. Patient remains on telemetry secondary to bradycardia Physical Exam 2 Physical Exam: General: Patient patient awake and on the phone with his sister upon entering the room. Patient appears in no acute distress. Speech and thought process appropriate. Mood and affect appropriate. Cognition intact. Head: Normocephalic and atraumatic. ENT: No evidence of nasal or oral mucosal lesions. Mucous membranes are moist. Poor dentition was noted. Eyes: Pupils equal and round. Gaze conjugate Neck: Supple without adenopathy and full range of motion. Well-healed midline incision over the posterior cervical spine status post posterior screw fusion extending from C3-T1. Upper extremities: Patient has mobility of the upper extremities with some mild flexion contracture of the wrist and hands bilaterally. Has adaptive tools to work phone and do other activities at bedside Chest: Nontender to palpation of the costosternal junction. Grande catheter placed on the right and appears to be intact and secure. Dressing in place. No evidence of skin irritation at the site of the catheter. Abdomen: Soft and nondistended. Nontender to palpation. Back: Sacral Optifoam in place. This was not removed from inspection. No midline tenderness along the spine. No paraspinal tenderness. Lower extremities: Patient has diminished sensation of the distal lower extremities to sharp and dull in a nondermatomal pattern. He can discern touch when down behind a blanket and can differentiate right from left based on sensation. Bandage on left foot was not removed for visual inspection. Bilateral waffle boots in place. Patient has no active range of motion of the lower extremities bilaterally. Neurologic: Cranial nerves grossly intact. Results ([facility]) Laboratory Review Additional Comments: 04/05/25 06:33 04/05/25 06:33 Previous Records Review Previous Records: personally reviewed by me
--- NOTE | 2025-04-05 08:29 | Hospitalist Progress Note ---
Date of Service April 05, 2025 Assessment & Plan (1) Complicated urinary tract infection: (2) Suprapubic catheter: (3) Pressure ulcer of left foot, stage 4: (4) Acute osteomyelitis of metatarsal bone of left foot: (5) Sacral decubitus ulcer: (6) Chronic pain: (7) Hypokalemia: (8) Hypotension: (9) Bradycardia: (10) Quadriplegia: (11) Autonomic dysreflexia: (12) History of pulmonary embolism: (13) Seizure disorder: Plan 49 year old male with PMH significant for paraplegia, autonomic dysreflexia, neurogenic bladder with suprapubic cath, history of PE on anticoagulation, chronic sacral ulcer with history of osteomyelitis and cellulitis and multiple debridements, history of complicated UTI, history of septic shock, anxiety disorder, COPD, history of polysubstance abuse, chronic pain, seizure disorder, history of leaving AMA who presented to the ED on 03/21/2025 with weakness, chills, nausea without vomiting x5 days and is admitted for complicated UTI. Complicated UTI due to suprapubic catheter Patient did not meet sepsis criteria on admission Urine culture grew acinetobacter baumannii/nosoco Plan: -ID consulted and discussed with Dr Kilgore via TT on 03/25: recommends IV cefepime 2g q8hr (instead of meropenem) and IV vancomycin 1500mg q12hr for 6 weeks (end date 05/04/25) -Continue oxybutynin -Unable to place PICC line due to inadequate vessel size -s/p R internal jugular vein [place] catheter placement by Dr Ely on 04/01/25 - will need to schedule removal with Vascular Surgery outpatient once abx completed -CM following for placement at [facility]/ if facilities do not accept Stage IV pressure ulcer of left foot Foot MRI revealed probable osteomyelitis Wound culture grew staph aureus MRSA Podiatry consulted and recommends: -Offload with waffle boot and pillow -Daily dressing changes per orders -Treatment with 6 weeks IV antibiotics as above Sacral decubitus ulcer Chronic wound with history of multiple episodes of osteomyelitis and surgical debridement CTAP reveals focal soft tissue defect and erosion of distal sacrum and coccyx - stable Continue wound care Turn and reposition q2hr - patient put in ICU airflow bed today to help with this Chronic Pain Syndrome Chronic pain and history of polysubstance abuse Admitting drug screen positive for marijuana only Patient trialed suboxone previously and stopped taking due to constipation side effect Reports full body burning pain is controlled on below regimen Plan: -Continue baclofen per home dosing -Nortriptyline increased to 50mg HS -Lyrica increased to 75mg tid this admission -Pain management added duloxetine 60 mg daily this admission -Breakthrough pain control with oxycodone 15mg q4hr PRN -Avoid IV narcotics as patient will not be able to have these when he leaves the hospital Chronic Hypotension Bradycardia Autonomic dysreflexia Chronic hypotension and bradycardia secondary to autonomic dysreflexia in setting of spinal cord injury Continue midodrine tid Paraplegia Continue home bowel regimen History of PE Continue Eliquis CARLOTA Iron 23, TIBC 451, ferritin 12, TSAT 5% Continue ferrous sulfate started this admission COPD Continue inhalers Seizure disorder Continue keppra GERD Continue PPI DVT Prophylaxis: on Eliquis Code Status: FULL CODE PCP: Chay Aguilar Disposition: medically cleared for discharge pending SNF acceptance Patient seen in collaboration with Dr Koenig. Please see addendum. I spent a total of 50 minutes coordinating, documenting and providing care for this patient excluding time spent in the performance of separately billed services or time spent by another provider/QHP. Admission and Anticipated Discharge Date Admission Date: March 21, 2025 Supervising Physician Co-Signing Physician Notes Patient seen and examined Agree with findings and plans as detailed by Karol VASQUEZ Subjective Patient seen resting in bed Reports pain in his sacral wound Denies chest pain, SOB, abdominal pain, N/V Review of Systems Review of Systems: All systems reviewed & are unremarkable except as noted in Subjective Physical Exam Physical Exam: General/Psych: WD/WN, laying in bed, NAD, conversing easily Head: normocephalic, atraumatic Eyes: normal inspection, PERRL, conjunctivae pink ENT: external ear and nose normal, oropharynx normal Neck: normal visual inspection, trachea midline Respiratory: normal respiratory effort, lungs clear to auscultation, no wheeze/rales/rhonchi, no accessory muscle use Cardiovascular: regular rate and rhythm, no murmur/rub/gallop, no JVD Extremities: no cyanosis or clubbing, normal peripheral pulses, no BLE edema Abdomen/GI: normal bowel sounds, soft, nontender Neurologic/MSK: A+Ox3, paraplegia - able to move BUE Skin: no rashes, normal color, warm and dry; sacral wound with packed silver dressing and abd pad with serosanguinous drainage; left foot ulcer with silver and optifoam dressing c/d/i Results & Data Results & Data Vital Signs (Past 12 Hours) Vital Signs Temp Pulse Pulse Resp BP BP Pulse Ox 04/05/25 08:00 36.6 C 78 20 99/69 L 98 04/05/25 05:10 36.7 C 60 18 119/80 97 04/04/25 22:30 36.5 C 59 L 18 127/95 95 04/04/25 22:00 56 L O2 Del Method 04/05/25 08:00 Room Air 04/05/25 05:10 Room Air 04/04/25 22:30 Room Air 04/04/25 22:00 Laboratory Results Short CBC 04/05/25 Range/Units 06:33 WBC 6.44 (4.8-10.8) K/ul Hgb 10.4 L (14.0-18.0) g/dl Hct 33.9 L (42.0-52.0) % Plt Count 180 (130-400) K/uL BMP 04/05/25 06:33 Sodium 139 Potassium 3.7 Chloride 108 H Carbon Dioxide 27 BUN 7 Creatinine 0.41 L Glucose 88 Calcium 9.4 I have independently reviewed and interpreted patient's labs including CBC and BMP. Medications Administered Current Inpatient Medications Acetaminophen (Acetaminophen 325 Mg Tab) 650 mg PO Q4H PRN PRN Reason: Pain or Fever Stop: 04/20/25 10:46 Last Admin: 04/04/25 13:52 Dose: 650 mg Apixaban (Apixaban 5 Mg Tablet) 5 mg PO BID [facility] Stop: 05/01/25 20:59 Last Admin: 04/04/25 21:59 Dose: 5 mg Baclofen (Baclofen 20 Mg Tab) 20 mg PO TID [facility] Stop: 04/20/25 13:59 Last Admin: 04/04/25 21:59 Dose: 20 mg Bisacodyl (Bisacodyl 10 Mg Supp) 10 mg MS BID [facility] Stop: 04/20/25 20:59 Last Admin: 04/04/25 22:00 Dose: Not Given Duloxetine HCl (Duloxetine Hcl 60 Mg Cap) 60 mg PO QAM [facility] Stop: 04/21/25 08:59 Last Admin: 04/04/25 08:48 Dose: 60 mg Ferrous Sulfate (Ferrous Sulfate 325 Mg Tab) 325 mg PO QAM [facility] Stop: 05/04/25 08:59 Last Admin: 04/04/25 08:49 Dose: 325 mg Fluticasone/Vilanterol (Fluticasone/Vilanterol 200/25mcg 14 Puffs/Inhaler) 1 puffs INH DAILY [facility]; Protocol Stop: 04/21/25 10:14 Last Admin: 04/04/25 08:48 Dose: 1 puffs Heparin Sodium (Beef Lung) (Heparin 10 Unit/Ml 5 Ml Flush) 5 ml FLUSH PRN PRN PRN Reason: Flush Stop: 05/02/25 08:06 Hydroxyzine HCl (Hydroxyzine Hcl 25 Mg Tab) 25 mg PO DAILY PRN PRN Reason: Anxiety Stop: 04/20/25 10:46 Vancomycin HCl 1,500 mg/ (Sodium Chloride) 530 mls @ 200 mls/hr IV Q12H [facility] Stop: 05/04/25 23:59 Last Admin: 04/05/25 05:00 Dose: 200 mls/hr Cefepime HCl (Maxipime 2000mg) 2,000 mg in 20 mls @ 5 mls/min IV Q8H [facility]; Protocol Stop: 05/04/25 23:59 Last Admin: 04/05/25 00:02 Dose: 5 mls/min Lactulose (Lactulose Syrup 20 Gm/30 Ml Udc) 20 gm PO TID [facility] Stop: 04/20/25 13:59 Last Admin: 04/04/25 22:00 Dose: 20 gm Levetiracetam (Levetiracetam 500 Mg Tab) 1,000 mg PO BID [facility] Stop: 04/20/25 20:59 Last Admin: 04/04/25 21:59 Dose: 1,000 mg Melatonin (Melatonin 3 Mg Tab) 3 mg PO HS [facility] Stop: 04/20/25 20:59 Last Admin: 04/04/25 21:58 Dose: 3 mg Midodrine (Midodrine Hcl 10 Mg Tab) 10 mg PO DAILY@0800,1200,1700 [facility] Stop: 04/20/25 16:59 Last Admin: 04/04/25 17:21 Dose: 10 mg Miscellaneous Information (Vancomycin Consult Active) 1 each N/A UD PRN PRN Reason: Consult Stop: 05/04/25 23:59 Nortriptyline HCl (Nortriptyline Hcl 25 Mg Cap) 25 mg PO DAILY@1999 [facility] Stop: 04/21/25 19:59 Last Admin: 04/04/25 21:58 Dose: 25 mg Ondansetron HCl (Ondansetron Inj 2 Mg/Ml 2 Ml Vial) 4 mg IV Q6H PRN PRN Reason: Nausea Stop: 04/20/25 10:46 Last Admin: 03/22/25 17:21 Dose: 4 mg Oxybutynin Chloride (Oxybutynin Chloride Xl 5 Mg Tabcr) 10 mg PO QAM [facility] Stop: 04/20/25 11:29 Last Admin: 04/04/25 08:49 Dose: 10 mg Pantoprazole Sodium (Pantoprazole 40 Mg Tab) 40 mg PO DAILY [facility] Stop: 04/20/25 11:29 Last Admin: 04/04/25 08:48 Dose: 40 mg Polyethylene Glycol (Polyethylene (Miralax) 17 Gm Pack) 17 gm PO DAILY PRN PRN Reason: Constipation Stop: 04/20/25 10:46 Last Admin: 04/03/25 11:54 Dose: 17 gm Pregabalin (Pregabalin 50 Mg Cap) 50 mg PO TID [facility] Stop: 04/22/25 13:59 Last Admin: 04/04/25 21:59 Dose: 50 mg Senna/Docusate Sodium (Docusate Sodium/Senna 50/8.6mg Tab) 2 tab PO HS [facility] Stop: 04/20/25 20:59 Last Admin: 04/04/25 21:59 Dose: 2 tab Simethicone (Simethicone 80 Mg Chew) 80 mg PO TID PRN PRN Reason: gas Stop: 04/20/25 13:59 Last Admin: 03/30/25 08:33 Dose: 80 mg Umeclidinium [place] (Umeclidinium [place] 62.5mcg/Blister 7 Puffs/Inhaler) 1 puffs INH QAM [facility] Stop: 04/21/25 08:59 Last Admin: 04/04/25 08:47 Dose: 1 puffs Zinc Acetate/Diphenhydramine (Diphenhydramine 2%/Zinc 0.1% Cream 28.4gm Tube) 1 appln EXT BID PRN PRN Reason: Itching Stop: 05/05/25 05:24 Last Admin: 04/05/25 06:13 Dose: 1 appln (5) Sacral decubitus ulcer Pressure injury stage: stage 4 Qualified Code(s): L89.154 - Pressure ulcer of sacral region, stage 4 (6) Chronic pain Chronic pain type: due to trauma Qualified Code(s): G89.21 - Chronic pain due to trauma (8) Hypotension Hypotension type: unspecified hypotension type Qualified Code(s): I95.9 - Hypotension, unspecified
[2025-04-05] MEDS ORDERED: VANCOMYCIN LEVEL ONE (08:30)
[2025-04-05] MEDS ORDERED: HYDROmorphone INJ 0.5 MG/0.5 ML SYR IV PRN (11:09)
[2025-04-05] MEDS: PREGABALIN 75 MG CAP PO SCH (20:54)
[2025-04-05] MEDS: NORTRIPTYLINE HCL 25 MG CAP PO SCH (20:54)
[2025-04-05] MEDS: HYDROmorphone INJ 0.5 MG/0.5 ML SYR IV ONE (22:46)
[2025-04-06 07:09] LABS: Hematocrit (blood only) 34.3 % (42.0-52.0); Hemoglobin 10.3 g/dl (14.0-18.0); Mean Corpuscular Hemoglobin 23.4 pg (25.0-34.0); Mean Corpuscular Volume 77.8 fL (80.0-100.0); Platelet Count 180 K/uL (130-400); RDW Standard Deviation 47.9 fL (36.4-46.3); Red Blood Count 4.41 M/uL (4.70-6.10); White Blood Count 6.70 K/ul (4.8-10.8)
[2025-04-06 07:38] LABS: Anion Gap 5.0 (3-11); Blood Urea Nitrogen 11.0 mg/dl (6-23); Calcium 9.3 mg/dl (8.6-10.3); Carbon Dioxide 27.0 mmol/L (21-32); Chloride 107.0 mmol/L (98-107); Creatinine Clr Calc Pharmacy 243.0 ml/min; Glucose 89.0 mg/dl (70-99(Fasting)); Magnesium 1.8 mg/dl (1.7-2.4); Potassium 3.5 mmol/L (3.5-5.1); Sodium 139.0 mmol/L (136-145)
--- NOTE | 2025-04-06 08:50 | Hospitalist Progress Note ---
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: (12) History of pulmonary embolism: (13) Seizure disorder: Plan 49 year old male with PMH significant for paraplegia, autonomic dysreflexia, neurogenic bladder with suprapubic cath, history of PE on anticoagulation, chronic sacral ulcer with history of osteomyelitis and cellulitis and multiple debridements, history of complicated UTI, history of septic shock, anxiety disorder, COPD, history of polysubstance abuse, chronic pain, seizure disorder, history of leaving AMA who presented to the ED on 03/21/2025 with weakness, chills, nausea without vomiting x5 days and is admitted for complicated UTI and left foot osteomyelitis. Complicated UTI due to suprapubic catheter Patient did not meet sepsis criteria on admission Urine culture grew acinetobacter baumannii/nosoco Plan: -ID consulted and discussed with Dr Kilgore via TT on 03/25: recommends IV cefepime 2g q8hr (instead of meropenem) and IV vancomycin 1500mg q12hr for 6 weeks (end date 05/04/25) -Continue oxybutynin -Unable to place PICC line due to inadequate vessel size -s/p R internal jugular vein [place] catheter placement by Dr Ely on 04/01/25 - will need to schedule removal with Vascular Surgery outpatient once abx completed -CM following for placement at [facility]/ if facilities do not accept Stage IV pressure ulcer of left foot Foot MRI revealed probable osteomyelitis Wound culture grew staph aureus MRSA Podiatry consulted and recommends: -Offload with waffle boot and pillow -Daily dressing changes per orders -Treatment with 6 weeks IV antibiotics as above Sacral decubitus ulcer Chronic wound with history of multiple episodes of osteomyelitis and surgical debridement CTAP reveals focal soft tissue defect and erosion of distal sacrum and coccyx - stable Continue wound care Turn and reposition q2hr using ICU bed Chronic Pain Syndrome Chronic pain and history of polysubstance abuse Admitting drug screen positive for marijuana only Patient trialed suboxone previously and stopped taking due to constipation side effect Reports full body burning pain is controlled on below regimen Plan: -Continue baclofen per home dosing -Nortriptyline increased to 50mg HS -Lyrica increased to 75mg tid this admission -Pain management added duloxetine 60 mg daily this admission -Breakthrough pain control with oxycodone 15mg q4hr PRN -Avoid IV narcotics as patient will not be able to have these when he leaves the hospital Chronic Hypotension Bradycardia Autonomic dysreflexia Chronic hypotension and bradycardia secondary to autonomic dysreflexia in setting of spinal cord injury Continue midodrine tid Paraplegia Continue home bowel regimen History of PE Continue Eliquis [place] Iron 23, TIBC 451, ferritin 12, TSAT 5% Continue ferrous sulfate started this admission COPD Continue inhalers Seizure disorder Continue keppra GERD Continue PPI DVT Prophylaxis: on Eliquis Code Status: FULL CODE PCP: Chay Aguilar Disposition: medically cleared for discharge pending SNF acceptance Patient seen in collaboration with Dr Koenig. Please see addendum. I spent a total of 35 minutes coordinating, documenting and providing care for this patient excluding time spent in the performance of separately billed services or time spent by another provider/QHP. Admission and Anticipated Discharge Date Admission Date: March 21, 2025 Supervising Physician Co-Signing Physician Notes Patient seen and examine Agree with findings and plans as detailed by Karol VASQUEZ Subjective Patient seen resting in bed Reports pain is controlled aside from when he first wakes up and with dressing changes Denies chest pain, SOB, abdominal pain, N/V Review of Systems Review of Systems: All systems reviewed & are unremarkable except as noted in Subjective Physical Exam Physical Exam: General/Psych: WD/WN, laying in bed, NAD, conversing easily Head: normocephalic, atraumatic Eyes: normal inspection, PERRL, conjunctivae pink ENT: external ear and nose normal, oropharynx normal Neck: normal visual inspection, trachea midline Respiratory: normal respiratory effort, lungs clear to auscultation, no wheeze/rales/rhonchi, no accessory muscle use Cardiovascular: regular rate and rhythm, no murmur/rub/gallop, no JVD Extremities: no cyanosis or clubbing, normal peripheral pulses, no BLE edema Abdomen/GI: normal bowel sounds, soft, nontender Neurologic/MSK: A+Ox3, paraplegia - able to move BUE Skin: no rashes, normal color, warm and dry; unable to assess sacral wound; left foot ulcer with optifoam dressing c/d/i Results & Data Results & Data Vital Signs (Past 12 Hours) Vital Signs Temp Pulse Resp BP BP Pulse Ox O2 Del Method 04/06/25 08:36 36.5 C 56 L 18 200/118 H 97 Room Air 04/06/25 04:08 36.5 C 71 18 82/50 L 95 Room Air 04/06/25 01:35 Room Air 04/06/25 00:02 36.4 C L 62 17 112/82 96 Room Air Laboratory Results Short CBC 04/06/25 Range/Units 06:25 WBC 6.70 (4.8-10.8) K/ul Hgb 10.3 L (14.0-18.0) g/dl Hct 34.3 L (42.0-52.0) % Plt Count 180 (130-400) K/uL BMP 04/06/25 06:25 Sodium 139 Potassium 3.5 Chloride 107 Carbon Dioxide 27 BUN 11 Creatinine 0.41 L Glucose 89 Calcium 9.3 I have independently reviewed and interpreted patient's labs including CBC and BMP. Medications Administered Current Inpatient Medications Acetaminophen (Acetaminophen 325 Mg Tab) 650 mg PO Q4H PRN PRN Reason: Pain or Fever Stop: 04/20/25 10:46 Last Admin: 04/06/25 09:23 Dose: 650 mg Apixaban (Apixaban 5 Mg Tablet) 5 mg PO BID [facility] Stop: 05/01/25 20:59 Last Admin: 04/06/25 09:25 Dose: 5 mg Baclofen (Baclofen 20 Mg Tab) 20 mg PO TID [facility] Stop: 04/20/25 13:59 Last Admin: 04/06/25 09:25 Dose: 20 mg Bisacodyl (Bisacodyl 10 Mg Supp) 10 mg [place] BID [facility] Stop: 04/20/25 20:59 Last Admin: 04/06/25 09:11 Dose: 10 mg Duloxetine HCl (Duloxetine Hcl 60 Mg Cap) 60 mg PO QAM [facility] Stop: 04/21/25 08:59 Last Admin: 04/06/25 09:25 Dose: 60 mg Ferrous Sulfate (Ferrous Sulfate 325 Mg Tab) 325 mg PO QAM [facility] Stop: 05/04/25 08:59 Last Admin: 04/06/25 09:25 Dose: 325 mg Fluticasone/Vilanterol (Fluticasone/Vilanterol 200/25mcg 14 Puffs/Inhaler) 1 puffs INH DAILY [facility]; Protocol Stop: 04/21/25 10:14 Last Admin: 04/06/25 08:54 Dose: Not Given Heparin Sodium (Beef Lung) (Heparin 10 Unit/Ml 5 Ml Flush) 5 ml FLUSH PRN PRN PRN Reason: Flush Stop: 05/02/25 08:06 Hydroxyzine HCl (Hydroxyzine Hcl 25 Mg Tab) 25 mg PO DAILY PRN PRN Reason: Anxiety Stop: 04/20/25 10:46 Vancomycin HCl 1,500 mg/ (Sodium Chloride) 530 mls @ 200 mls/hr IV Q12H [facility] Stop: 05/04/25 23:59 Last Infusion: 04/06/25 08:49 Dose: Infused Cefepime HCl (Maxipime 2000mg) 2,000 mg in 20 mls @ 5 mls/min IV Q8H [facility]; Protocol Stop: 05/04/25 23:59 Last Admin: 04/06/25 09:10 Dose: 5 mls/min Lactulose (Lactulose Syrup 20 Gm/30 Ml Udc) 20 gm PO TID [facility] Stop: 04/20/25 13:59 Last Admin: 04/06/25 09:11 Dose: 20 gm Levetiracetam (Levetiracetam 500 Mg Tab) 1,000 mg PO BID [facility] Stop: 04/20/25 20:59 Last Admin: 04/06/25 09:24 Dose: 1,000 mg Melatonin (Melatonin 3 Mg Tab) 3 mg PO HS [facility] Stop: 04/20/25 20:59 Last Admin: 04/05/25 20:55 Dose: 3 mg Midodrine (Midodrine Hcl 10 Mg Tab) 10 mg PO DAILY@0800,1200,1700 [facility] Stop: 04/20/25 16:59 Last Admin: 04/06/25 09:10 Dose: Not Given Miscellaneous Information (Vancomycin Consult Active) 1 each N/A UD PRN PRN Reason: Consult Stop: 05/04/25 23:59 Nortriptyline HCl (Nortriptyline Hcl 25 Mg Cap) 50 mg PO DAILY@1999 [facility] Stop: 05/05/25 19:59 Last Admin: 04/05/25 20:54 Dose: 50 mg Ondansetron HCl (Ondansetron Inj 2 Mg/Ml 2 Ml Vial) 4 mg IV Q6H PRN PRN Reason: Nausea Stop: 04/20/25 10:46 Last Admin: 03/22/25 17:21 Dose: 4 mg Oxybutynin Chloride (Oxybutynin Chloride Xl 5 Mg Tabcr) 10 mg PO QAM [facility] Stop: 04/20/25 11:29 Last Admin: 04/06/25 09:26 Dose: 10 mg Oxycodone HCl (Oxycodone Hcl Ir 5 Mg Tab (Immediate Release)) 15 mg PO Q4 PRN PRN Reason: Moderate Pain (Scale 4, 5, 6) Stop: 04/19/25 11:07 Last Admin: 04/06/25 09:24 Dose: 15 mg Pantoprazole Sodium (Pantoprazole 40 Mg Tab) 40 mg PO DAILY [facility] Stop: 04/20/25 11:29 Last Admin: 04/06/25 09:25 Dose: 40 mg Polyethylene Glycol (Polyethylene (Miralax) 17 Gm Pack) 17 gm PO DAILY PRN PRN Reason: Constipation Stop: 04/20/25 10:46 Last Admin: 04/03/25 11:54 Dose: 17 gm Pregabalin (Pregabalin 75 Mg Cap) 75 mg PO TID [facility] Stop: 05/05/25 20:59 Last Admin: 04/06/25 09:12 Dose: 75 mg Senna/Docusate Sodium (Docusate Sodium/Senna 50/8.6mg Tab) 2 tab PO HS [facility] Stop: 04/20/25 20:59 Last Admin: 04/05/25 20:54 Dose: 2 tab Simethicone (Simethicone 80 Mg Chew) 80 mg PO TID PRN PRN Reason: gas Stop: 04/20/25 13:59 Last Admin: 03/30/25 08:33 Dose: 80 mg Umeclidinium [place] (Umeclidinium [place] 62.5mcg/Blister 7 Puffs/Inhaler) 1 puffs INH QAM [facility] Stop: 04/21/25 08:59 Last Admin: 04/06/25 08:54 Dose: Not Given Zinc Acetate/Diphenhydramine (Diphenhydramine 2%/Zinc 0.1% Cream 28.4gm Tube) 1 appln EXT BID PRN PRN Reason: Itching Stop: 05/05/25 05:24 Last Admin: 04/06/25 09:11 Dose: 1 appln (5) Sacral decubitus ulcer Pressure injury stage: stage 4 Qualified Code(s): L89.154 - Pressure ulcer of sacral region, stage 4 (6) Chronic pain Chronic pain type: due to trauma Qualified Code(s): G89.21 - Chronic pain due to trauma (8) Hypotension Hypotension type: unspecified hypotension type Qualified Code(s): I95.9 - Hypotension, unspecified
[2025-04-07 05:57] LABS: Hematocrit (blood only) 33.3 % (42.0-52.0); Hemoglobin 9.9 g/dl (14.0-18.0); Mean Corpuscular Hemoglobin 23.5 pg (25.0-34.0); Mean Corpuscular Volume 78.9 fL (80.0-100.0); Platelet Count 158 K/uL (130-400); RDW Standard Deviation 48.5 fL (36.4-46.3); Red Blood Count 4.22 M/uL (4.70-6.10); White Blood Count 5.79 K/ul (4.8-10.8)
[2025-04-07 06:17] LABS: Anion Gap 3.0 (3-11); Blood Urea Nitrogen 15.0 mg/dl (6-23); Calcium 9.1 mg/dl (8.6-10.3); Carbon Dioxide 27.0 mmol/L (21-32); Chloride 111.0 mmol/L (98-107); Creatinine Clr Calc Pharmacy 195.4 ml/min; Glucose 129.0 mg/dl (70-99(Fasting)); Magnesium 1.6 mg/dl (1.7-2.4); Potassium 3.5 mmol/L (3.5-5.1); Sodium 141.0 mmol/L (136-145)
--- NOTE | 2025-04-07 08:15 | Hospitalist Progress Note ---
Date of Service April 07, 2025 Assessment & Plan (1) Complicated urinary tract infection: (2) Suprapubic catheter: (3) Pressure ulcer of left foot, stage 4: (4) Acute osteomyelitis of metatarsal bone of left foot: (5) Sacral decubitus ulcer: (6) Chronic pain: (7) Hypokalemia: (8) Hypotension: (9) Bradycardia: (10) Quadriplegia: (11) Autonomic dysreflexia: (12) History of pulmonary embolism: (13) Seizure disorder: Plan 49 year old male with PMH significant for paraplegia, autonomic dysreflexia, neurogenic bladder with suprapubic cath, history of PE on anticoagulation, chronic sacral ulcer with history of osteomyelitis and cellulitis and multiple debridements, history of complicated UTI, history of septic shock, anxiety disorder, COPD, history of polysubstance abuse, chronic pain, seizure disorder, history of leaving AMA who presented to the ED on 03/21/2025 with weakness, chills, nausea without vomiting x5 days and is admitted for complicated UTI and left foot osteomyelitis. Complicated UTI due to suprapubic catheter Patient did not meet sepsis criteria on admission Urine culture grew acinetobacter baumannii/nosoco Suprapubic catheter exchanged on 03/21/2025 Plan: -ID consulted and discussed with Dr Kilgore via TT on 03/25: recommends IV cefepime 2g q8hr (instead of meropenem) and IV vancomycin 1500mg q12hr for 6 weeks (end date 05/04/25) -Continue oxybutynin -Unable to place PICC line due to inadequate vessel size -s/p R internal jugular vein Grande catheter placement by Dr Ely on 04/01/25 - will need to schedule removal with Vascular Surgery outpatient once abx completed -CM following for placement at SNF - difficult placement due to history of AMA and refusal of care Stage IV pressure ulcer of left foot Foot MRI revealed probable osteomyelitis Wound culture grew staph aureus MRSA Podiatry consulted and recommends: -Offload with waffle boot and pillow -Daily dressing changes per orders -Treatment with 6 weeks IV antibiotics as above Sacral decubitus ulcer Chronic wound with history of multiple episodes of osteomyelitis and surgical debridement CTAP reveals focal soft tissue defect and erosion of distal sacrum and coccyx - stable Continue wound care Turn and reposition q2hr using ICU bed Chronic Pain Syndrome Chronic pain and history of polysubstance abuse Admitting drug screen positive for marijuana only Patient trialed suboxone previously and stopped taking due to constipation side effect Plan: -Continue baclofen per home dosing -Nortriptyline increased to 50mg HS -Lyrica increased to 75mg tid this admission -Pain management added duloxetine 60 mg daily this admission -Breakthrough pain control with oxycodone 15mg q4hr PRN -Avoid IV narcotics as patient will not be able to have these when he leaves the hospital Chronic Hypotension Bradycardia Autonomic dysreflexia Chronic hypotension and bradycardia secondary to autonomic dysreflexia in setting of spinal cord injury Continue midodrine tid Paraplegia Continue home bowel regimen History of PE Continue Eliquis CARLOTA Iron 23, TIBC 451, ferritin 12, TSAT 5% Continue ferrous sulfate started this admission COPD Continue inhalers Seizure disorder Continue keppra GERD Continue PPI DVT Prophylaxis: on Eliquis Code Status: FULL CODE PCP: Chay Aguilar Disposition: medically cleared for discharge pending SNF acceptance Patient seen in collaboration with Dr Koenig. Please see addendum. I spent a total of 35 minutes coordinating, documenting and providing care for this patient excluding time spent in the performance of separately billed services or time spent by another provider/QHP. Admission and Anticipated Discharge Date Admission Date: March 21, 2025 Supervising Physician Co-Signing Physician Notes Patient seen and examined Agree with findings and plans as detailed by Karol VASQUEZ Subjective Patient seen resting in bed Reports soreness at his sacral wound Notes he slept better last night Reports suprapubic catheter keeps getting clogged Denies chest pain, SOB, abdominal pain, N/V Physical Exam Physical Exam: General/Psych: WD/WN, laying in bed, NAD, conversing easily Head: normocephalic, atraumatic Eyes: normal inspection, PERRL, conjunctivae pink ENT: external ear and nose normal, oropharynx normal Neck: normal visual inspection, trachea midline Respiratory: normal respiratory effort, lungs clear to auscultation, no wheeze/rales/rhonchi, no accessory muscle use Cardiovascular: regular rate and rhythm, no murmur/rub/gallop, no JVD Extremities: no cyanosis or clubbing, normal peripheral pulses, no BLE edema Abdomen/GI: normal bowel sounds, soft, nontender Neurologic/MSK: A+Ox3, paraplegia - able to move BUE Skin: no rashes, normal color, warm and dry; unable to assess sacral wound; left foot ulcer with optifoam dressing c/d/i Results & Data Results & Data Vital Signs (Past 12 Hours) Vital Signs Temp Pulse Resp BP Pulse Ox O2 Del Method 04/07/25 07:22 36.5 C 65 16 130/85 95 Room Air 04/06/25 22:07 Room Air 04/06/25 22:07 36.4 C L 51 L 14 93/60 L 97 Room Air 04/06/25 20:48 Room Air Laboratory Results Short CBC 04/07/25 Range/Units 05:34 WBC 5.79 (4.8-10.8) K/ul Hgb 9.9 L (14.0-18.0) g/dl Hct 33.3 L (42.0-52.0) % Plt Count 158 (130-400) K/uL BMP 04/07/25 05:34 Sodium 141 Potassium 3.5 Chloride 111 H Carbon Dioxide 27 BUN 15 Creatinine 0.51 L Glucose 129 H Calcium 9.1 I have independently reviewed and interpreted patient's labs including CBC and BMP. Medications Administered Current Inpatient Medications Acetaminophen (Acetaminophen 325 Mg Tab) 650 mg PO Q4H PRN PRN Reason: Pain or Fever Stop: 04/20/25 10:46 Last Admin: 04/06/25 18:35 Dose: 650 mg Apixaban (Apixaban 5 Mg Tablet) 5 mg PO BID [facility] Stop: 05/01/25 20:59 Last Admin: 04/07/25 08:44 Dose: 5 mg Baclofen (Baclofen 20 Mg Tab) 20 mg PO TID [facility] Stop: 04/20/25 13:59 Last Admin: 04/07/25 08:44 Dose: 20 mg Bisacodyl (Bisacodyl 10 Mg Supp) 10 mg HI BID [facility] Stop: 04/20/25 20:59 Last Admin: 04/07/25 10:18 Dose: Not Given Duloxetine HCl (Duloxetine Hcl 60 Mg Cap) 60 mg PO QAM [facility] Stop: 04/21/25 08:59 Last Admin: 04/07/25 08:44 Dose: 60 mg Ferrous Sulfate (Ferrous Sulfate 325 Mg Tab) 325 mg PO QAM [facility] Stop: 05/04/25 08:59 Last Admin: 04/07/25 08:44 Dose: 325 mg Fluticasone/Vilanterol (Fluticasone/Vilanterol 200/25mcg 14 Puffs/Inhaler) 1 puffs INH DAILY [facility]; Protocol Stop: 04/21/25 10:14 Last Admin: 04/07/25 10:14 Dose: Not Given Heparin Sodium (Beef Lung) (Heparin 10 Unit/Ml 5 Ml Flush) 5 ml FLUSH PRN PRN PRN Reason: Flush Stop: 05/02/25 08:06 Last Admin: 04/07/25 06:26 Dose: 5 ml Hydroxyzine HCl (Hydroxyzine Hcl 25 Mg Tab) 25 mg PO DAILY PRN PRN Reason: Anxiety Stop: 04/20/25 10:46 Vancomycin HCl 1,500 mg/ (Sodium Chloride) 530 mls @ 200 mls/hr IV Q12H [facility] Stop: 05/04/25 23:59 Last Infusion: 04/07/25 06:19 Dose: Infused Cefepime HCl (Maxipime 2000mg) 2,000 mg in 20 mls @ 5 mls/min IV Q8H [facility]; Protocol Stop: 05/04/25 23:59 Last Admin: 04/07/25 08:42 Dose: 5 mls/min Lactulose (Lactulose Syrup 20 Gm/30 Ml Udc) 20 gm PO TID [facility] Stop: 04/20/25 13:59 Last Admin: 04/07/25 10:14 Dose: Not Given Levetiracetam (Levetiracetam 500 Mg Tab) 1,000 mg PO BID [facility] Stop: 04/20/25 20:59 Last Admin: 04/07/25 08:45 Dose: 1,000 mg Melatonin (Melatonin 3 Mg Tab) 3 mg PO HS [facility] Stop: 04/20/25 20:59 Last Admin: 04/06/25 20:39 Dose: 3 mg Midodrine (Midodrine Hcl 10 Mg Tab) 10 mg PO DAILY@0800,1200,1700 [facility] Stop: 04/20/25 16:59 Last Admin: 04/07/25 11:58 Dose: 10 mg Miscellaneous Information (Vancomycin Consult Active) 1 each N/A UD PRN PRN Reason: Consult Stop: 05/04/25 23:59 Nortriptyline HCl (Nortriptyline Hcl 25 Mg Cap) 50 mg PO DAILY@1999 [facility] Stop: 05/05/25 19:59 Last Admin: 04/06/25 20:40 Dose: 50 mg Ondansetron HCl (Ondansetron Inj 2 Mg/Ml 2 Ml Vial) 4 mg IV Q6H PRN PRN Reason: Nausea Stop: 04/20/25 10:46 Last Admin: 03/22/25 17:21 Dose: 4 mg Oxybutynin Chloride (Oxybutynin Chloride Xl 5 Mg Tabcr) 10 mg PO QAM [facility] Stop: 04/20/25 11:29 Last Admin: 04/07/25 08:45 Dose: 10 mg Oxycodone HCl (Oxycodone Hcl Ir 5 Mg Tab (Immediate Release)) 15 mg PO Q4 PRN PRN Reason: Moderate Pain (Scale 4, 5, 6) Stop: 04/19/25 11:07 Last Admin: 04/07/25 11:57 Dose: 15 mg Pantoprazole Sodium (Pantoprazole 40 Mg Tab) 40 mg PO DAILY [facility] Stop: 04/20/25 11:29 Last Admin: 04/07/25 08:46 Dose: 40 mg Polyethylene Glycol (Polyethylene (Miralax) 17 Gm Pack) 17 gm PO DAILY PRN PRN Reason: Constipation Stop: 04/20/25 10:46 Last Admin: 04/03/25 11:54 Dose: 17 gm Pregabalin (Pregabalin 75 Mg Cap) 75 mg PO TID [facility] Stop: 05/05/25 20:59 Last Admin: 04/07/25 08:46 Dose: 75 mg Senna/Docusate Sodium (Docusate Sodium/Senna 50/8.6mg Tab) 2 tab PO HS [facility] Stop: 04/20/25 20:59 Last Admin: 04/06/25 20:39 Dose: 2 tab Simethicone (Simethicone 80 Mg Chew) 80 mg PO TID PRN PRN Reason: gas Stop: 04/20/25 13:59 Last Admin: 03/30/25 08:33 Dose: 80 mg Umeclidinium Paragon (Umeclidinium Paragon 62.5mcg/Blister 7 Puffs/Inhaler) 1 puffs INH QAM [facility] Stop: 04/21/25 08:59 Last Admin: 04/07/25 10:14 Dose: Not Given Zinc Acetate/Diphenhydramine (Diphenhydramine 2%/Zinc 0.1% Cream 28.4gm Tube) 1 appln EXT BID PRN PRN Reason: Itching Stop: 05/05/25 05:24 Last Admin: 04/06/25 09:11 Dose: 1 appln (5) Sacral decubitus ulcer Pressure injury stage: stage 4 Qualified Code(s): L89.154 - Pressure ulcer of sacral region, stage 4 (6) Chronic pain Chronic pain type: due to trauma Qualified Code(s): G89.21 - Chronic pain due to trauma (8) Hypotension Hypotension type: unspecified hypotension type Qualified Code(s): I95.9 - Hypotension, unspecified
[2025-04-08 07:13] LABS: Creatinine Clr Calc Pharmacy 243.0 ml/min
--- NOTE | 2025-04-08 11:52 | Hospitalist Progress Note ---
Date of Service April 08, 2025 Assessment & Plan (1) Complicated urinary tract infection: (2) Suprapubic catheter: (3) Pressure ulcer of left foot, stage 4: (4) Acute osteomyelitis of metatarsal bone of left foot: (5) Sacral decubitus ulcer: (6) Chronic pain: (7) Hypokalemia: (8) Hypotension: (9) Bradycardia: (10) Quadriplegia: (11) Autonomic dysreflexia: (12) History of pulmonary embolism: (13) Seizure disorder: Plan 49 year old male with PMH significant for paraplegia, autonomic dysreflexia, neurogenic bladder with suprapubic cath, history of PE on anticoagulation, chronic sacral ulcer with history of osteomyelitis and cellulitis and multiple debridements, history of complicated UTI, history of septic shock, anxiety disorder, COPD, history of polysubstance abuse, chronic pain, seizure disorder, history of leaving AMA who presented to the ED on 03/21/2025 with weakness, chills, nausea without vomiting x5 days and is admitted for complicated UTI and left foot osteomyelitis. Stage IV pressure ulcer of left foot Complicated UTI due to suprapubic catheter Patient did not meet sepsis criteria on admission Foot MRI revealed probable osteomyelitis Urine culture grew acinetobacter baumannii/nosoco Wound culture grew staph aureus MRSA Suprapubic catheter exchanged on 03/21/2025 Plan: -ID recommends IV cefepime 2g q8hr (instead of meropenem) and IV vancomycin 1500mg q12hr for 6 weeks (end date 05/04/25) -Continue oxybutynin -Unable to place PICC line due to inadequate vessel size -s/p R internal jugular vein Grande catheter placement by Dr Ely on 04/01/25 - will need to schedule removal with Vascular Surgery outpatient once abx completed -CM following for placement at SNF - difficult placement due to history of AMA and refusal of care Podiatry recommends: -Offload with waffle boot and pillow -Daily dressing changes per orders -Treatment with 6 weeks IV antibiotics as above Sacral decubitus ulcer Chronic wound with history of multiple episodes of osteomyelitis and surgical debridement CTAP reveals focal soft tissue defect and erosion of distal sacrum and coccyx - stable Continue wound care Turn and reposition q2hr using ICU bed Chronic Pain Syndrome Chronic pain and history of polysubstance abuse Admitting drug screen positive for marijuana only Patient trialed suboxone previously and stopped taking due to constipation side effect Plan: -Continue baclofen per home dosing -Nortriptyline increased to 50mg HS -Lyrica increased to 75mg tid this admission -Pain management added duloxetine 60 mg daily this admission -Breakthrough pain control with oxycodone 15mg q4hr PRN -Avoid IV narcotics as patient will not be able to have these when he leaves the hospital Chronic Hypotension Bradycardia Autonomic dysreflexia Chronic hypotension and bradycardia secondary to autonomic dysreflexia in setting of spinal cord injury Continue midodrine tid Paraplegia Continue home bowel regimen History of PE Continue Eliquis CARLOTA Iron 23, TIBC 451, ferritin 12, TSAT 5% Continue ferrous sulfate started this admission COPD Continue inhalers Seizure disorder Continue keppra GERD Continue PPI DVT Prophylaxis: on Eliquis Code Status: FULL CODE PCP: Chay Aguilar Disposition: medically cleared for discharge pending SNF acceptance I spent a total of 35 minutes coordinating, documenting and providing care for this patient excluding time spent in performance of separately billed services Admission and Anticipated Discharge Date Admission Date: March 21, 2025 Subjective Patient seen and examined No new complaints today Physical Exam Constitutional: + well hydrated; no acute distress Eyes: PERRL, conjunctivae normal, anicteric sclerae ENMT: external ear and nose normal, oropharynx normal Respiratory: normal respiratory effort, lungs clear to auscultation Cardiovascular: Rate/Rhythm: regular rate and regular rhythm Gastrointestinal (Abdomen): normal bowel sounds, soft, nontender, no hepatosplenomegaly Neurologic: AOx3, paraplegic Genitourinary: Suprapubic hartman Results & Data Results & Data Vital Signs (Past 12 Hours) Vital Signs Temp Pulse Resp BP Pulse Ox O2 Del Method 04/08/25 07:10 36.7 C 64 16 95/68 L 95 Room Air Laboratory Results Abnormal lab results 04/08/25 Range/Units 05:37 Creatinine 0.41 L (0.6-1.4) mg/dl (5) Sacral decubitus ulcer Pressure injury stage: stage 4 Qualified Code(s): L89.154 - Pressure ulcer of sacral region, stage 4 (6) Chronic pain Chronic pain type: due to trauma Qualified Code(s): G89.21 - Chronic pain due to trauma (8) Hypotension Hypotension type: unspecified hypotension type Qualified Code(s): I95.9 - Hypotension, unspecified
[2025-04-09 03:46] LABS: Creatinine Clr Calc Pharmacy 237.2 ml/min
--- NOTE | 2025-04-09 12:06 | Hospitalist Progress Note ---
Date of Service April 09, 2025 Assessment & Plan (1) Complicated urinary tract infection: (2) Suprapubic catheter: (3) Pressure ulcer of left foot, stage 4: (4) Acute osteomyelitis of metatarsal bone of left foot: (5) Sacral decubitus ulcer: (6) Chronic pain: (7) Hypokalemia: (8) Hypotension: (9) Bradycardia: (10) Quadriplegia: (11) Autonomic dysreflexia: (12) History of pulmonary embolism: (13) Seizure disorder: Plan 49 year old male with PMH significant for paraplegia, autonomic dysreflexia, neurogenic bladder with suprapubic cath, history of PE on anticoagulation, chronic sacral ulcer with history of osteomyelitis and cellulitis and multiple debridements, history of complicated UTI, history of septic shock, anxiety disorder, COPD, history of polysubstance abuse, chronic pain, seizure disorder, history of leaving AMA who presented to the ED on 03/21/2025 with weakness, chills, nausea without vomiting x5 days and is admitted for complicated UTI and left foot osteomyelitis. Stage IV pressure ulcer of left foot Complicated UTI due to suprapubic catheter Patient did not meet sepsis criteria on admission Foot MRI revealed probable osteomyelitis Urine culture grew acinetobacter baumannii/nosoco Wound culture grew staph aureus MRSA Suprapubic catheter exchanged on 03/21/2025 Plan: ID recommends IV cefepime 2g q8hr (instead of meropenem) and IV vancomycin 1500mg q12hr for 6 weeks (end date 05/04/25) Continue oxybutynin Unable to place PICC line due to inadequate vessel size s/p R internal jugular vein Grande catheter placement by Dr Ely on 04/01/25 - will need to schedule removal with Vascular Surgery outpatient once abx completed CM following for placement at SNF - difficult placement due to history of AMA and refusal of care Podiatry recommends: Offload with waffle boot and pillow Daily dressing changes per orders Treatment with 6 weeks IV antibiotics as above Sacral decubitus ulcer Chronic wound with history of multiple episodes of osteomyelitis and surgical debridement CTAP reveals focal soft tissue defect and erosion of distal sacrum and coccyx - stable Continue wound care Turn and reposition q2hr using ICU bed Chronic Pain Syndrome Chronic pain and history of polysubstance abuse Admitting drug screen positive for marijuana only Patient trialed suboxone previously and stopped taking due to constipation side effect Pain management consulted Plan: Continue baclofen per home dosing Nortriptyline increased to 50mg HS Lyrica increased to 75mg TID Pain management added duloxetine 60 mg daily Breakthrough pain control with oxycodone 15mg q4hr PRN -Avoid IV narcotics as patient will not be able to have these when he leaves the hospital Chronic Hypotension Bradycardia Autonomic dysreflexia Chronic hypotension and bradycardia secondary to autonomic dysreflexia in setting of spinal cord injury Continue midodrine TID Paraplegia Continue home bowel regimen History of PE Continue Eliquis CARLOTA Iron 23, TIBC 451, ferritin 12, TSAT 5% Continue ferrous sulfate started this admission COPD Continue inhalers Seizure disorder Continue keppra GERD Continue PPI DVT PROPHYLAXIS On Eliquis Dispo: Medically ready for d/c, needs SNF for IV antibiotics, placement difficult due to hx of multiple AMAs in the past, CM following I spent a total of 35 minutes coordinating, documenting, and providing care for this patient excluding time spent in the performance of separately billed services. This included personally reviewing all current laboratories and imaging studies, medication reconciliation, outpatient chart review, and discussion with specialists. Admission and Anticipated Discharge Date Admission Date: March 21, 2025 Subjective Follow-up for UTI, left foot osteomyelitis. Patient seen and examined. Resting in bed. Reports pain is well-controlled, offers no complaints. Eager for discharge, placement pending. Physical Exam Constitutional: WD/WN, vitals as above no acute distress Respiratory: normal respiratory effort, lungs clear to auscultation Cardiovascular: Rate/Rhythm: regular rate and regular rhythm Vessels: normal peripheral pulses Extremities: + edema (+1 edema BLE) Chest (Breasts): Chest: + vascular access device or port (right chest Grande in place) Musculoskeletal: paraplegic Psychiatric: A+Ox3, euthymic affect Genitourinary: suprapubic catheter Results & Data Results & Data Vital Signs (Past 12 Hours) Vital Signs Temp Pulse Resp BP Pulse Ox O2 Del Method 04/09/25 11:36 52 L 141/87 H Room Air 04/09/25 09:00 Room Air 04/09/25 07:03 36.7 C 75 18 132/82 98 Room Air Laboratory Results [facility] 04/09/25 03:10 Creatinine 0.42 L (5) Sacral decubitus ulcer Pressure injury stage: stage 4 Qualified Code(s): L89.154 - Pressure ulcer of sacral region, stage 4 (6) Chronic pain Chronic pain type: due to trauma Qualified Code(s): G89.21 - Chronic pain due to trauma (8) Hypotension Hypotension type: unspecified hypotension type Qualified Code(s): I95.9 - Hypotension, unspecified
--- NOTE | 2025-04-09 12:51 | Pharmacy Report ---
Pharmacy PK ABX Note - Date of Service April 09, 2025 - Assessment and Plan Assessment 04/09 Day #20 vancomycin * Random vancomycin level obtained this morning was 18.5mcg/mL which extrapolates to a supratherapeutic AUC. The maintenance dose of vancomycin has been decreased starting with the evening dose tonight. * Renal function has been stable/at baseline, has been afebrile, and no leukocytosis. * He also continues on cefepime. 04/03 * Obtained lab slightly early d/t adjustment in schedule/IV issues * Random level this 22.7 mcg/mL--> correlates with therapeutic dosing, will continue with current 03/29 * 49 year old M receiving vancomycin and cefepime per ID recommendation for treatment of left foot osteomyelitis. * MRSA isolated from L foot, sacrum, and abdomen cultures. Enterobacter and elizondo-sensititive Acinetobacter baumannii isolated from urine culture. CRAB now also isolated from sacral culture. * PMHx significant for quadriplegia with neurogenic bladder requiring a suprapubic catheter, frequent UTIs, recent admission for bacteremia. History of pseudomonas and MRSA in past. Recently started on Cipro. * SCr at baseline of ~0.5 mg/dL, this is likely inaccurate due to low muscle mass in quadriplegic patient. * End date for cefepime and vancomycin is 05/04/25 per ID. Plan Vancomycin * Target AUC/BEATRIZ of 400-600 mg/L.hr * Random level of 18.5 mcg/mL today associated with a therapeutic AUC of 630mg/L.hr * Decreased vancomycin to 1250 mg IV every 12 hours * Another vancomycin level has been ordered for 04/11 with AM labs. Pharmacy will continue to follow and will adjust dose/frequency as necessary. Thank you. Pharmacy has transitioned to AUC monitoring for vancomycin. AUC/BEATRIZ is the preferred PK/PD target and is associated with decreased risk of nephrotoxicity compared to traditional trough targets.
[2025-04-09] MEDS: VANCOMYCIN HCL 1,250 MG in SODIUM CHLORIDE 0.9% 250 ML IV SCH (18:01)
[2025-04-10 09:30] LABS: Hematocrit (blood only) 33.0 % (42.0-52.0); Hemoglobin 10.2 g/dl (14.0-18.0); Mean Corpuscular Hemoglobin 23.8 pg (25.0-34.0); Mean Corpuscular Volume 76.9 fL (80.0-100.0); Platelet Count 183 K/uL (130-400); RDW Standard Deviation 49.6 fL (36.4-46.3); Red Blood Count 4.29 M/uL (4.70-6.10); White Blood Count 7.47 K/ul (4.8-10.8)
[2025-04-10 09:56] LABS: Anion Gap 6.0 (3-11); Blood Urea Nitrogen 9.0 mg/dl (6-23); Calcium 9.0 mg/dl (8.6-10.3); Carbon Dioxide 27.0 mmol/L (21-32); Chloride 107.0 mmol/L (98-107); Creatinine Clr Calc Pharmacy 231.7 ml/min; Glucose 101.0 mg/dl (70-99(Fasting)); Magnesium 1.8 mg/dl (1.7-2.4); Potassium 2.9 mmol/L (3.5-5.1); Sodium 140.0 mmol/L (136-145)
--- NOTE | 2025-04-10 14:24 | Hospitalist Progress Note ---
<Statement entered by James France DO - 04/10/25 15:52> Patient not seen by physician Plan d/w VARUN Date of Service April 10, 2025 Assessment & Plan (1) Complicated urinary tract infection: (2) Suprapubic catheter: (3) Pressure ulcer of left foot, stage 4: (4) Acute osteomyelitis of metatarsal bone of left foot: (5) Sacral decubitus ulcer: (6) Chronic pain: (7) Hypokalemia: (8) Hypotension: (9) Bradycardia: (10) Quadriplegia: (11) Autonomic dysreflexia: (12) History of pulmonary embolism: (13) Seizure disorder: Plan 49 year old male with PMH significant for paraplegia, autonomic dysreflexia, neurogenic bladder with suprapubic cath, history of PE on anticoagulation, chronic sacral ulcer with history of osteomyelitis and cellulitis and multiple debridements, history of complicated UTI, history of septic shock, anxiety disorder, COPD, history of polysubstance abuse, chronic pain, seizure disorder, history of leaving AMA who presented to the ED on 03/21/2025 with weakness, chills, nausea without vomiting x5 days and is admitted for complicated UTI and left foot osteomyelitis. Stage IV pressure ulcer of left foot Complicated UTI due to suprapubic catheter Patient did not meet sepsis criteria on admission Foot MRI revealed probable osteomyelitis Urine culture grew acinetobacter baumannii/nosoco Wound culture grew staph aureus MRSA Suprapubic catheter exchanged on 03/21/2025 Plan: ID recommends IV cefepime 2g q8hr (instead of meropenem) and IV vancomycin 1500mg q12hr for 6 weeks (end date 05/04/25) Continue oxybutynin Unable to place PICC line due to inadequate vessel size s/p R internal jugular vein Grande catheter placement by Dr Ely on 04/01/25 - will need to schedule removal with Vascular Surgery outpatient once abx completed CM following for placement at SNF - difficult placement due to history of AMA and refusal of care Podiatry recommends: Offload with waffle boot and pillow Daily dressing changes per orders Treatment with 6 weeks IV antibiotics as above Hypokalemia K+ 2.9, Mg+ 1.8 Replace, follow electrolytes Sacral decubitus ulcer Chronic wound with history of multiple episodes of osteomyelitis and surgical debridement CTAP reveals focal soft tissue defect and erosion of distal sacrum and coccyx - stable Continue wound care Turn and reposition q2hr using ICU bed Chronic Pain Syndrome Chronic pain and history of polysubstance abuse Admitting drug screen positive for marijuana only Patient trialed suboxone previously and stopped taking due to constipation side effect Pain management consulted Plan: Continue baclofen per home dosing Nortriptyline increased to 50mg HS Lyrica increased to 75mg TID Pain management added duloxetine 60 mg daily Breakthrough pain control with oxycodone 15mg q4hr PRN -Avoid IV narcotics as patient will not be able to have these when he leaves the hospital Chronic Hypotension Bradycardia Autonomic dysreflexia Chronic hypotension and bradycardia secondary to autonomic dysreflexia in setting of spinal cord injury Continue midodrine TID Paraplegia Continue home bowel regimen History of PE Continue Eliquis CARLOTA Iron 23, TIBC 451, ferritin 12, TSAT 5% Continue ferrous sulfate started this admission Hgb stable COPD Continue inhalers Seizure disorder Continue keppra GERD Continue PPI DVT PROPHYLAXIS On Eliquis Dispo: Medically ready for d/c, needs SNF for IV antibiotics, placement difficult due to hx of multiple AMAs in the past, CM following - possible d/c [facility] in [place], patient wanting to discuss with his sister first before making a decision I spent a total of 35 minutes coordinating, documenting, and providing care for this patient excluding time spent in the performance of separately billed services. This included personally reviewing all current laboratories and imaging studies, medication reconciliation, outpatient chart review, and discussion with specialists. Admission and Anticipated Discharge Date Admission Date: March 21, 2025 Subjective Follow-up for UTI, left foot osteomyelitis. Patient seen and examined. Resting in bed. Reports pain is well-controlled. Complains of Grande dressing being itchy. Otherwise offers no complaints. Considering [facility], waiting to talk to his sister who is to be coming in today. Physical Exam Constitutional: no acute distress Respiratory: normal respiratory effort, lungs clear to auscultation Cardiovascular: Rate/Rhythm: regular rate and regular rhythm Chest (Breasts): Chest: + vascular access device or port (Grande in place to right chest) Skin: no rashes, warm and dry Neurologic: paraplegia Psychiatric: A+Ox3, euthymic affect Genitourinary: suprapubic catheter Results & Data Results & Data Vital Signs (Past 12 Hours) Vital Signs Temp Pulse Resp BP Pulse Ox O2 Del Method 04/10/25 11:42 62 97/62 L 98 Room Air 04/10/25 11:37 36.3 C L 67 17 86/58 L 97 Room Air 04/10/25 07:10 36.7 C 86 16 128/79 98 Room Air Laboratory Results Short CBC 04/10/25 Range/Units 09:01 WBC 7.47 (4.8-10.8) K/ul Hgb 10.2 L (14.0-18.0) g/dl Hct 33.0 L (42.0-52.0) % Plt Count 183 (130-400) K/uL BMP 04/10/25 09:01 Sodium 140 Potassium 2.9 L Chloride 107 Carbon Dioxide 27 BUN 9 Creatinine 0.43 L Glucose 101 H Calcium 9.0 (5) Sacral decubitus ulcer Pressure injury stage: stage 4 Qualified Code(s): L89.154 - Pressure ulcer of sacral region, stage 4 (6) Chronic pain Chronic pain type: due to trauma Qualified Code(s): G89.21 - Chronic pain due to trauma (8) Hypotension Hypotension type: unspecified hypotension type Qualified Code(s): I95.9 - Hypotension, unspecified
[2025-04-10] MEDS: POTASSIUM CHLORIDE CRTAB 20 MEQ TABCR PO SCH (14:36)
[2025-04-11 05:57] LABS: Anion Gap 2.0 (3-11); Blood Urea Nitrogen 11.0 mg/dl (6-23); Calcium 9.4 mg/dl (8.6-10.3); Carbon Dioxide 29.0 mmol/L (21-32); Chloride 108.0 mmol/L (98-107); Creatinine Clr Calc Pharmacy 216.6 ml/min; Glucose 111.0 mg/dl (70-99(Fasting)); Magnesium 1.8 mg/dl (1.7-2.4); Potassium 3.9 mmol/L (3.5-5.1); Sodium 139.0 mmol/L (136-145)
--- NOTE | 2025-04-11 10:27 | Pharmacy Report ---
Pharmacy PK ABX Note - Date of Service April 11, 2025 - Assessment and Plan Assessment 04/11: Day #22 vancomycin * Vancomycin level obtained this morning was 13.8mcg/mL which extrapolates to an AUC at the upper end of the goal range. Will continue current maintenance regimen. * To continue antibiotics (cefepime and vancomycin) through 05/04/25 per ID 04/09: Day #20 vancomycin * Random vancomycin level obtained this morning was 18.5mcg/mL which extrapolates to a supratherapeutic AUC. The maintenance dose of vancomycin has been decreased starting with the evening dose tonight. * Renal function has been stable/at baseline, has been afebrile, and no leukocytosis. * He also continues on cefepime. 04/03: * Obtained lab slightly early d/t adjustment in schedule/IV issues * Random level this 22.7 mcg/mL--> correlates with therapeutic dosing, will continue with current 03/29: * 49 year old M receiving vancomycin and cefepime per ID recommendation for treatment of left foot osteomyelitis. * MRSA isolated from L foot, sacrum, and abdomen cultures. Enterobacter and elizondo-sensititive Acinetobacter baumannii isolated from urine culture. CRAB now also isolated from sacral culture. * PMHx significant for quadriplegia with neurogenic bladder requiring a suprapubic catheter, frequent UTIs, recent admission for bacteremia. History of pseudomonas and MRSA in past. Recently started on Cipro. * SCr at baseline of ~0.5 mg/dL, this is likely inaccurate due to low muscle mass in quadriplegic patient. * End date for cefepime and vancomycin is 05/04/25 per ID. Plan Vancomycin * Target AUC/BEATRIZ of 400-600 mg/L.hr * Random level of 13.8 mcg/mL today associated with a therapeutic AUC of 538 mg/L.hr * Continue vancomycin 1250 mg IV every 12 hours * Another vancomycin level will be ordered in the next 7 days Pharmacy will continue to follow and will adjust dose/frequency as necessary. Thank you. Pharmacy has transitioned to AUC monitoring for vancomycin. AUC/BEATRIZ is the preferred PK/PD target and is associated with decreased risk of nephrotoxicity compared to traditional trough targets.
--- NOTE | 2025-04-11 15:46 | Hospitalist Progress Note ---
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: (12) History of pulmonary embolism: (13) Seizure disorder: Plan 49 year old male with PMH significant for paraplegia, autonomic dysreflexia, neurogenic bladder with suprapubic cath, history of PE on anticoagulation, chronic sacral ulcer with history of osteomyelitis and cellulitis and multiple debridements, history of complicated UTI, history of septic shock, anxiety dis order, COPD, history of polysubstance abuse, chronic pain, seizure disorder, history of leaving AMA who presented to the ED on 03/21/2025 with weakness, chills, nausea without vomiting x5 days and is admitted for complicated UTI and left foot osteomyelitis. Stage IV pressure ulcer of left foot Complicated UTI due to suprapubic catheter Patient did not meet sepsis criteria on admission Foot MRI revealed probable osteomyelitis Urine culture grew acinetobacter baumannii/nosoco Wound culture grew staph aureus MRSA Suprapubic catheter exchanged on 03/21/2025 Plan: ID recommends IV cefepime 2g q8hr (instead of meropenem) and IV vancomycin 1500mg q12hr for 6 weeks (end date 05/04/25) Continue oxybutynin Unable to place PICC line due to inadequate vessel size s/p R internal jugular vein Grande catheter placement by Dr Ely on 04/01/25 - will need to schedule removal with Vascular Surgery outpatient once abx completed CM following for placement at SNF - difficult placement due to history of AMA and refusal of care Podiatry recommends: Offload with waffle boot and pillow Daily dressing changes per orders Treatment with 6 weeks IV antibiotics as above Hypokalemia, resolved K+ 3.9 today Sacral decubitus ulcer Chronic wound with history of multiple episodes of osteomyelitis and surgical debridement CTAP reveals focal soft tissue defect and erosion of distal sacrum and coccyx - stable Continue wound care Turn and reposition q2hr using ICU bed Chronic Pain Syndrome Chronic pain and history of polysubstance abuse Admitting drug screen positive for marijuana only Patient trialed suboxone previously and stopped taking due to constipation side effect Pain management consulted Plan: Continue baclofen per home dosing Nortriptyline increased to 50mg HS Lyrica increased to 75mg TID Pain management added duloxetine 60 mg daily Breakthrough pain control with oxycodone 15mg q4hr PRN -Avoid IV narcotics as patient will not be able to have these when he leaves the hospital Chronic Hypotension Bradycardia Autonomic dysreflexia Chronic hypotension and bradycardia secondary to autonomic dysreflexia in setting of spinal cord injury Continue midodrine TID Paraplegia Continue home bowel regimen History of PE Continue Eliquis CARLOTA Iron 23, TIBC 451, ferritin 12, TSAT 5% Continue ferrous sulfate started this admission Hgb stable COPD Continue inhalers Seizure disorder Continue keppra GERD Continue PPI DVT PROPHYLAXIS On Eliquis Dispo: Medically ready for d/c, needs SNF for IV antibiotics, placement difficult due to hx of multiple AMAs in the past, CM following - possible d/c [facility] in [place], patient wanting to discuss with his sister first before making a decision I spent a total of 20 minutes coordinating, documenting, and providing care for this patient excluding time spent in the performance of separately billed services. This included personally reviewing all current laboratories and imaging studies, medication reconciliation, outpatient chart review, and discussion with specialists. Admission and Anticipated Discharge Date Admission Date: March 21, 2025 Subjective Follow-up for UTI, left foot osteomyelitis. Resting in bed. Reports pain is well-controlled. Offers no complaints. Considering [facility], still waiting to talk to his sister who is to be coming in today. Physical Exam Constitutional: no acute distress Skin: no rashes, warm and dry Neurologic: paraplegia Psychiatric: A+Ox3, euthymic affect Genitourinary: suprapubic catheter Results & Data Results & Data Vital Signs (Past 12 Hours) Vital Signs Temp Pulse Resp BP Pulse Ox O2 Del Method 04/11/25 15:25 36.5 C 62 16 137/87 99 Room Air 04/11/25 07:08 36.5 C 59 L 16 84/60 L 98 Room Air 04/11/25 07:05 Room Air Laboratory Results [facility] 04/11/25 05:20 Sodium 139 Potassium 3.9 D Chloride 108 H Carbon Dioxide 29 BUN 11 Creatinine 0.46 L Glucose 111 H Calcium 9.4 (5) Sacral decubitus ulcer Pressure injury stage: stage 4 Qualified Code(s): L89.154 - Pressure ulcer of sacral region, stage 4 (6) Chronic pain Chronic pain type: due to trauma Qualified Code(s): G89.21 - Chronic pain due to trauma (8) Hypotension Hypotension type: unspecified hypotension type Qualified Code(s): I95.9 - Hypotension, unspecified
--- NOTE | 2025-04-12 10:22 | Hospitalist Progress Note ---
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: (12) History of pulmonary embolism: (13) Seizure disorder: Plan This is a 49 year old male with PMH significant for paraplegia, autonomic dysreflexia, neurogenic bladder with suprapubic cath, history of PE on anticoagulation, chronic sacral ulcer with history of osteomyelitis and cellulitis and multiple debridements, history of complicated UTI, history of septic shock, anxiety disorder, COPD, history of polysubstance abuse, chronic pain, seizure disorder, history of leaving AMA who presented to the ED on 03/21/2025 with weakness, chills, nausea without vomiting x5 days and is admitted for complicated UTI and left foot osteomyelitis. Stage IV pressure ulcer of left foot Complicated UTI due to suprapubic catheter Patient did not meet sepsis criteria on admission Foot MRI revealed probable osteomyelitis Urine culture grew acinetobacter baumannii/nosoco Wound culture grew staph aureus MRSA Suprapubic catheter exchanged on 03/21/2025 Plan: ID recommends IV cefepime 2g q8hr (instead of meropenem) and IV vancomycin 1500mg q12hr for 6 weeks (end date 05/04/25) Continue oxybutynin Unable to place PICC line due to inadequate vessel size s/p R internal jugular vein Grande catheter placement by Dr Ely on 04/01/25 - will need to schedule removal with Vascular Surgery outpatient once abx completed CM following for placement at SNF - difficult placement due to history of AMA and refusal of care Podiatry recommends: Offload with waffle boot and pillow Daily dressing changes per orders Treatment with 6 weeks IV antibiotics as above Hypokalemia, resolved Sacral decubitus ulcer Chronic wound with history of multiple episodes of osteomyelitis and surgical debridement CTAP reveals focal soft tissue defect and erosion of distal sacrum and coccyx - stable Continue wound care Turn and reposition q2hr using ICU bed Chronic Pain Syndrome Chronic pain and history of polysubstance abuse Admitting drug screen positive for marijuana only Patient trialed Suboxone previously and stopped taking due to constipation side effect Pain management consulted Plan: Continue baclofen per home dosing Nortriptyline increased to 50mg HS Lyrica increased to 75mg TID Pain management added duloxetine 60 mg daily Breakthrough pain control with oxycodone 15mg q4hr PRN -Avoid IV narcotics as patient will not be able to have these when he leaves the hospital Chronic Hypotension Bradycardia Autonomic dysreflexia Chronic hypotension and bradycardia secondary to autonomic dysreflexia in setting of spinal cord injury Continue midodrine TID Paraplegia Continue home bowel regimen History of PE Continue Eliquis CARLOTA Iron 23, TIBC 451, ferritin 12, TSAT 5% Continue ferrous sulfate started this admission Hgb stable COPD Continue inhalers Seizure disorder Continue keppra GERD Continue PPI DVT PROPHYLAXIS On Eliquis Dispo: Medically ready for d/c, needs SNF for IV antibiotics, placement difficult due to hx of multiple AMAs in the past, CM following - possible d/c [facility] in [place], patient wanting to discuss with his sister first before making a decision I spent a total of 25 minutes coordinating, documenting, and providing care for this patient excluding time spent in the performance of separately billed services or time spent by another provider/QHP. Admission and Anticipated Discharge Date Admission Date: March 21, 2025 Subjective Follow-up for UTI, left foot osteomyelitis. Resting in bed. Reports pain is well-controlled. No acute events overnight. Offers no complaints. Considering [facility], still waiting to talk to his sister - planning for phone call with CM this afteroon. Review of Systems Review of Systems: At least ten systems reviewed and negative except as noted in the HPI. Physical Exam Physical Exam: Gen: WD/WN, NAD, resting in bed, A&Ox3 HEENT: Normocephalic, atraumatic Lung: Clear to Auscultation bilaterally Heart: Regular rate, regular rhythm Abdomen: Soft, NT, ND +BS x 4 : + Sanchez Neuro/extremities: + Paraplegic, able to move BUE, no changes Skin: Warm, no rash, sacral and L foot wounds with dressings c/d/i Results & Data Results & Data Vital Signs (Past 12 Hours) Vital Signs Temp Pulse Resp BP Pulse Ox O2 Del Method 04/12/25 07:08 36.5 C 67 16 126/88 97 Room Air 04/11/25 23:02 36.5 C 69 92/61 L 97 Room Air Diagnostic Findings Abdomen/Pelvis CT 03/21/25 03:49 EXAM: CT abd pelvis IV con only CLINICAL HISTORY: lower abd to pelvic pain, decub, uti TECHNIQUE: Contiguous axial images were obtained from the level of the diaphragm to the pubic symphysis with intravenous contrast. Coronal and sagittal reconstructions were likewise performed and indicated to increase the sensitivity for detecting clinically relevant pathology. If IV contrast material had not been administered, the likelihood of detecting abnormalities relevant to the patient's condition would have been substantially decreased. CT scan was performed according to ALARA (as low as reasonable achievable). 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 The liver is normal in size and attenuation. No focal liver lesions are seen. There is no intra or extrahepatic biliary ductal dilatation. Hepatic vasculature is patent. Status post-cholecystectomy. The spleen, pancreas, and adrenal glands are unremarkable. The kidneys are normal in size and attenuation. There is no hydronephrosis or perinephric fat stranding. Right kidneys are 1-2 mm sized concretion in upper calyx. Left kidney shows 8 mm and 12 mm in upper calyx and 5 mm in lower calyx. The ureters are normal in caliber and no ureteral calculi are seen. The bladder is normal in contour. Pelvic viscera are unremarkable. No focal or diffuse bowel wall thickening or evidence of bowel obstruction is identified. No evidence of inflamed appendix. Abdominal and pelvic vasculature is patent. No adenopathy or fluid collections are seen. No aggressive appearing osseous lesions are identified. Evidence of sacral decubitus ulcer with focal soft tissue defect and erosion of distal sacrum and coccyx is seen. Colonic fecal and gaseous distension IMPRESSION: 1. Evidence of sacral decubitus ulcer with focal soft tissue defect and erosion of distal sacrum and coccyx is seen.-stable. 2. Bilateral non-obstructing renal calculi. 3. Colonic fecal and gaseous distension- possibility of constipation 4. No other new interval abnormality since prior study. Electronically signed by Justin Melgar 03-21-2025 06:24 AM Chest X-Ray 03/21/25 03:53 EXAM: XR chest 1V portable CLINICAL HISTORY: weak, chills TECHNIQUE: An X-ray image of the chest is obtained in AP projection. COMPARISON: 10/06/2024. FINDINGS: Pulmonary Parenchyma: Lungs are clear bilaterally. No evidence of consolidation, collapse, or focal opacities. Stable prominent bilateral parahilar markings. No evidence of pleural effusion or pleural thickening. Heart and Mediastinum: Heart size and shape are normal. No mediastinal widening or masses. No hilar or mediastinal lymphadenopathy. Bony Thorax: Bony thorax appears intact without fractures or deformities. Soft Tissues: Soft tissues overlying the chest wall are unremarkable. IMPRESSION: 1. No evidence of consolidation or pleural effusion. 2. No interval changes. Electronically signed by Luke Dunne 03-21-2025 05:33 AM Foot X-Ray 03/21/25 09:48 XR foot LT min 3V routine CLINICAL HISTORY: wound eval osteomyelitis COMPARISON: None FINDINGS: The bones are osteopenic. No acute fractures are visualized. No destructive lesions are visualized on conventional radiographic imaging. There is no gas within soft tissues. IMPRESSION: 1. Osteopenia 2. No acute fractures 2. No conventional radiographic evidence of acute osteolysis ACT 112: Negative or not required by law. Electronically signed by: Luisito Cotto M.D. 03/21/2025 10:31 AM Foot MRI 03/21/25 13:01 Exam(s): MRI LEFT FOOT Without Contrast EXAM: MR Left Lower Extremity Without Intravenous Contrast, Foot CLINICAL HISTORY: Reason for exam: Wound with exposed bone 5th metatarsal left. TECHNIQUE: Multiplanar magnetic resonance images of the left foot without intravenous contrast. COMPARISON: Plain films from 03/21/2025 FINDINGS: Bones/joints: There is increased signal on T2 fat sat and STIR involving the distal 1.6 cm of the 5th metatarsal with soft tissue ulceration down within a few mm of the bone. The midfoot alignment is normal. No other areas of abnormal bone marrow signal are identified. No acute fracture or dislocation is seen. Soft tissues: There is subcutaneous edema of the dorsum of the foot and lateral aspect of the distal foot. No abscess is identified. IMPRESSION: 1. There is subcutaneous edema of the dorsum of the foot and lateral aspect of the distal foot. No abscess is identified. 2. There is increased signal on T2 fat sat and STIR involving the distal 1.6 cm of the 5th metatarsal with soft tissue ulceration down within a few mm of the bone. Probable osteomyelitis. Electronically signed by: Cooper Miles MD 03/21/25 23:01 PM (5) Sacral decubitus ulcer Pressure injury stage: stage 4 Qualified Code(s): L89.154 - Pressure ulcer of sacral region, stage 4 (6) Chronic pain Chronic pain type: due to trauma Qualified Code(s): G89.21 - Chronic pain due to trauma (8) Hypotension Hypotension type: unspecified hypotension type Qualified Code(s): I95.9 - Hypotension, unspecified
[2025-04-13 06:16] LABS: Hematocrit (blood only) 31.9 % (42.0-52.0); Hemoglobin 9.8 g/dl (14.0-18.0); Mean Corpuscular Hemoglobin 23.8 pg (25.0-34.0); Mean Corpuscular Volume 77.4 fL (80.0-100.0); Platelet Count 176 K/uL (130-400); RDW Standard Deviation 49.1 fL (36.4-46.3); Red Blood Count 4.12 M/uL (4.70-6.10); White Blood Count 6.54 K/ul (4.8-10.8)
[2025-04-13 06:35] LABS: Anion Gap 6.0 (3-11); Blood Urea Nitrogen 13.0 mg/dl (6-23); Calcium 9.1 mg/dl (8.6-10.3); Carbon Dioxide 26.0 mmol/L (21-32); Chloride 108.0 mmol/L (98-107); Creatinine Clr Calc Pharmacy 216.6 ml/min; Glucose 129.0 mg/dl (70-99(Fasting)); Magnesium 1.7 mg/dl (1.7-2.4); Potassium 3.4 mmol/L (3.5-5.1); Sodium 140.0 mmol/L (136-145)
--- NOTE | 2025-04-13 10:50 | Hospitalist Progress Note ---
<Statement entered by James France DO - 04/14/25 07:21> I was available to VARUN D/w VARUN Date of Service April 13, 2025 Assessment & Plan (1) Complicated urinary tract infection: (2) Suprapubic catheter: (3) Pressure ulcer of left foot, stage 4: (4) Acute osteomyelitis of metatarsal bone of left foot: (5) Sacral decubitus ulcer: (6) Chronic pain: (7) Hypokalemia: (8) Hypotension: (9) Bradycardia: (10) Quadriplegia: (11) Autonomic dysreflexia: (12) History of pulmonary embolism: (13) Seizure disorder: Plan This is a 49 year old male with PMH significant for paraplegia, autonomic dysreflexia, neurogenic bladder with suprapubic cath, history of PE on anticoagulation, chronic sacral ulcer with history of osteomyelitis and cellulitis and multiple debridements, history of complicated UTI, history of septic shock, anxiety disorder, COPD, history of polysubstance abuse, chronic pain, seizure disorder, history of leaving AMA who presented to the ED on 03/21/2025 with weakness, chills, nausea without vomiting x5 days and is admitted for complicated UTI and left foot osteomyelitis. Stage IV pressure ulcer of left foot Complicated UTI due to suprapubic catheter Patient did not meet sepsis criteria on admission Foot MRI revealed probable osteomyelitis Urine culture grew acinetobacter baumannii/nosoco Wound culture grew staph aureus MRSA Suprapubic catheter exchanged on 03/21/2025 Plan: ID recommends IV cefepime 2g q8hr (instead of meropenem) and IV vancomycin 1500mg q12hr for 6 weeks (end date 05/04/25) Continue oxybutynin Unable to place PICC line due to inadequate vessel size s/p R internal jugular vein Grande catheter placement by Dr Ely on 04/01/25 - will need to schedule removal with Vascular Surgery outpatient once abx completed CM following for placement at SNF - difficult placement due to history of AMA and refusal of care Podiatry recommends: Offload with waffle boot and pillow Daily dressing changes per orders Treatment with 6 weeks IV antibiotics as above Hypokalemia, resolved Sacral decubitus ulcer Chronic wound with history of multiple episodes of osteomyelitis and surgical debridement CTAP reveals focal soft tissue defect and erosion of distal sacrum and coccyx - stable Continue wound care, RN to change dressing around noon 9/6 Turn and reposition q2hr using ICU bed Chronic Pain Syndrome Chronic pain and history of polysubstance abuse Admitting drug screen positive for marijuana only Patient trialed Suboxone previously and stopped taking due to constipation side effect Pain management consulted Plan: Continue baclofen per home dosing Nortriptyline increased to 50mg HS Lyrica increased to 75mg TID Pain management added duloxetine 60 mg daily Breakthrough pain control with oxycodone 15mg q4hr PRN -Avoid IV narcotics as patient will not be able to have these when he leaves the hospital Chronic Hypotension Bradycardia Autonomic dysreflexia Chronic hypotension and bradycardia secondary to autonomic dysreflexia in setting of spinal cord injury Continue midodrine TID Paraplegia Continue home bowel regimen History of PE Continue Eliquis CARLOTA Iron 23, TIBC 451, ferritin 12, TSAT 5% Continue ferrous sulfate started this admission Hgb stable COPD Continue inhalers Seizure disorder Continue keppra GERD Continue PPI DVT PROPHYLAXIS On Eliquis Dispo: Medically ready for d/c, needs SNF for IV antibiotics, placement difficult due to hx of multiple AMAs in the past, CM following - possible d/c [facility] in [place] but patient and sister Lyn feel this is too far from home and are refusing option. Requesting for discharge home with HH - CM continues to work on options. I spent a total of 30 minutes coordinating, documenting, and providing care for this patient excluding time spent in the performance of separately billed services or time spent by another provider/QHP. Admission and Anticipated Discharge Date Admission Date: March 21, 2025 Subjective Follow-up for UTI, left foot osteomyelitis. Resting in bed. Reports pain is well-controlled. No acute events overnight. Offers no complaints. Had a phone conversation with sister Lyn, who patient lives with and CM yesterday afternoon. Olivier and Lyn agree that [facility] in [place] is too far from home and patient refuses to be anywhere sister can't visit daily. Lyn and patient requesting patient return home with HH and training on IV abx administration. Review of Systems Review of Systems: At least ten systems reviewed and negative except as noted in the HPI. Physical Exam Physical Exam: Gen: WD/WN, NAD, resting in bed, A&Ox3 HEENT: Normocephalic, atraumatic Lung: Clear to Auscultation bilaterally Heart: Regular rate, regular rhythm Abdomen: Soft, NT, ND +BS x 4 : + Sanchez Neuro/extremities: + Paraplegic, able to move BUE, no changes Skin: Warm, no rash, sacral and L foot wounds with dressings c/d/i Results & Data Results & Data Vital Signs (Past 12 Hours) Vital Signs Temp Pulse Resp BP Pulse Ox O2 Del Method 04/13/25 09:26 Room Air 04/13/25 07:14 36.5 C 67 16 104/68 97 Room Air 04/12/25 23:48 112/58 L Laboratory Results Short CBC 04/13/25 Range/Units 05:41 WBC 6.54 (4.8-10.8) K/ul Hgb 9.8 L (14.0-18.0) g/dl Hct 31.9 L (42.0-52.0) % Plt Count 176 (130-400) K/uL BMP 04/13/25 05:41 Sodium 140 Potassium 3.4 L Chloride 108 H Carbon Dioxide 26 BUN 13 Creatinine 0.46 L Glucose 129 H Calcium 9.1 Diagnostic Findings Abdomen/Pelvis CT 03/21/25 03:49 EXAM: CT abd pelvis IV con only CLINICAL HISTORY: lower abd to pelvic pain, decub, uti TECHNIQUE: Contiguous axial images were obtained from the level of the diaphragm to the pubic symphysis with intravenous contrast. Coronal and sagittal reconstructions were likewise performed and indicated to increase the sensitivity for detecting clinically relevant pathology. If IV contrast material had not been administered, the likelihood of detecting abnormalities relevant to the patient's condition would have been substantially decreased. CT scan was performed according to ALARA (as low as reasonable achievable). 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 The liver is normal in size and attenuation. No focal liver lesions are seen. There is no intra or extrahepatic biliary ductal dilatation. Hepatic vasculature is patent. Status post-cholecystectomy. The spleen, pancreas, and adrenal glands are unremarkable. The kidneys are normal in size and attenuation. There is no hydronephrosis or perinephric fat stranding. Right kidneys are 1-2 mm sized concretion in upper calyx. Left kidney shows 8 mm and 12 mm in upper calyx and 5 mm in lower calyx. The ureters are normal in caliber and no ureteral calculi are seen. The bladder is normal in contour. Pelvic viscera are unremarkable. No focal or diffuse bowel wall thickening or evidence of bowel obstruction is identified. No evidence of inflamed appendix. Abdominal and pelvic vasculature is patent. No adenopathy or fluid collections are seen. No aggressive appearing osseous lesions are identified. Evidence of sacral decubitus ulcer with focal soft tissue defect and erosion of distal sacrum and coccyx is seen. Colonic fecal and gaseous distension IMPRESSION: 1. Evidence of sacral decubitus ulcer with focal soft tissue defect and erosion of distal sacrum and coccyx is seen.-stable. 2. Bilateral non-obstructing renal calculi. 3. Colonic fecal and gaseous distension- possibility of constipation 4. No other new interval abnormality since prior study. Electronically signed by Justin Melgar 03-21-2025 06:24 AM Chest X-Ray 03/21/25 03:53 EXAM: XR chest 1V portable CLINICAL HISTORY: weak, chills TECHNIQUE: An X-ray image of the chest is obtained in AP projection. COMPARISON: 10/06/2024. FINDINGS: Pulmonary Parenchyma: Lungs are clear bilaterally. No evidence of consolidation, collapse, or focal opacities. Stable prominent bilateral parahilar markings. No evidence of pleural effusion or pleural thickening. Heart and Mediastinum: Heart size and shape are normal. No mediastinal widening or masses. No hilar or mediastinal lymphadenopathy. Bony Thorax: Bony thorax appears intact without fractures or deformities. Soft Tissues: Soft tissues overlying the chest wall are unremarkable. IMPRESSION: 1. No evidence of consolidation or pleural effusion. 2. No interval changes. Electronically signed by Luke Dunne 03-21-2025 05:33 AM Foot X-Ray 03/21/25 09:48 XR foot LT min 3V routine CLINICAL HISTORY: wound eval osteomyelitis COMPARISON: None FINDINGS: The bones are osteopenic. No acute fractures are visualized. No destructive lesions are visualized on conventional radiographic imaging. There is no gas within soft tissues. IMPRESSION: 1. Osteopenia 2. No acute fractures 2. No conventional radiographic evidence of acute osteolysis ACT 112: Negative or not required by law. Electronically signed by: Luisito Cotto M.D. 03/21/2025 10:31 AM Foot MRI 03/21/25 13:01 Exam(s): MRI LEFT FOOT Without Contrast EXAM: MR Left Lower Extremity Without Intravenous Contrast, Foot CLINICAL HISTORY: Reason for exam: Wound with exposed bone 5th metatarsal left. TECHNIQUE: Multiplanar magnetic resonance images of the left foot without intravenous contrast. COMPARISON: Plain films from 03/21/2025 FINDINGS: Bones/joints: There is increased signal on T2 fat sat and STIR involving the distal 1.6 cm of the 5th metatarsal with soft tissue ulceration down within a few mm of the bone. The midfoot alignment is normal. No other areas of abnormal bone marrow signal are identified. No acute fracture or dislocation is seen. Soft tissues: There is subcutaneous edema of the dorsum of the foot and lateral aspect of the distal foot. No abscess is identified. IMPRESSION: 1. There is subcutaneous edema of the dorsum of the foot and lateral aspect of the distal foot. No abscess is identified. 2. There is increased signal on T2 fat sat and STIR involving the distal 1.6 cm of the 5th metatarsal with soft tissue ulceration down within a few mm of the bone. Probable osteomyelitis. Electronically signed by: Cooper Miles MD 03/21/25 23:01 PM (5) Sacral decubitus ulcer Pressure injury stage: stage 4 Qualified Code(s): L89.154 - Pressure ulcer of sacral region, stage 4 (6) Chronic pain Chronic pain type: due to trauma Qualified Code(s): G89.21 - Chronic pain due to trauma (8) Hypotension Hypotension type: unspecified hypotension type Qualified Code(s): I95.9 - Hypotension, unspecified
[2025-04-13] MEDS: POTASSIUM CHLORIDE CRTAB 20 MEQ TABCR PO STA (15:08)
[2025-04-14 06:49] LABS: Creatinine Clr Calc Pharmacy 212.0 ml/min
--- NOTE | 2025-04-14 07:46 | Hospitalist Progress Note ---
<Statement entered by James France DO - 04/14/25 13:42> patient seen and examined Long discussion with patient regarding potentially going home on IV abx. he states he has no used IV drugs in over 4 years and he has no desire to do so. he states his sister is now caring for a 1 year old and he understands the dangers of having drugs present in the house. further more cys is doing drug tests on people living in the house. at this point, there is a low risk of abuse in sending him home with IV access for IV abx. Date of Service April 14, 2025 Assessment & Plan (1) Complicated urinary tract infection: (2) Suprapubic catheter: (3) Pressure ulcer of left foot, stage 4: (4) Acute osteomyelitis of metatarsal bone of left foot: (5) Sacral decubitus ulcer: (6) Chronic pain: (7) Hypokalemia: (8) Hypotension: (9) Bradycardia: (10) Quadriplegia: (11) Autonomic dysreflexia: (12) History of pulmonary embolism: (13) Seizure disorder: Plan This is a 49 year old male with PMH significant for paraplegia, autonomic dysreflexia, neurogenic bladder with suprapubic cath, history of PE on anticoagulation, chronic sacral ulcer with history of osteomyelitis and cellulitis and multiple debridements, history of complicated UTI, history of septic shock, anxiety disorder, COPD, history of polysubstance abuse, chronic pain, seizure disorder, history of leaving AMA who presented to the ED on 03/21/2025 with weakness, chills, nausea without vomiting x5 days and is admitted for complicated UTI and left foot osteomyelitis. Stage IV pressure ulcer of left foot Complicated UTI due to suprapubic catheter Patient did not meet sepsis criteria on admission Foot MRI revealed probable osteomyelitis Urine culture grew acinetobacter baumannii/nosoco Wound culture grew staph aureus MRSA Suprapubic catheter exchanged on 03/21/2025 Plan: ID recommends IV cefepime 2g q8hr (instead of meropenem) and IV vancomycin 1500mg q12hr for 6 weeks (end date 05/04/25) Continue oxybutynin Unable to place PICC line due to inadequate vessel size s/p R internal jugular vein Grande catheter placement by Dr Ely on 8/25/25 - will need to schedule removal with Vascular Surgery outpatient once abx completed CM following for placement at SNF - difficult placement due to history of AMA and refusal of care Podiatry recommends: Offload with waffle boot and pillow Daily dressing changes per orders Treatment with 6 weeks IV antibiotics as above Hypokalemia, resolved Sacral decubitus ulcer Chronic wound with history of multiple episodes of osteomyelitis and surgical debridement CTAP reveals focal soft tissue defect and erosion of distal sacrum and coccyx - stable Continue wound care, RN to change dressing around noon 9/6 Turn and reposition q2hr using ICU bed Chronic Pain Syndrome Chronic pain and history of polysubstance abuse Denies IVDU for "years" Admitting drug screen positive for marijuana only Patient trialed Suboxone previously and stopped taking due to constipation side effect Pain management consulted Plan: Continue baclofen per home dosing Nortriptyline increased to 50mg HS Lyrica increased to 75mg TID Pain management added duloxetine 60 mg daily Breakthrough pain control with oxycodone 15mg q4hr PRN -Avoid IV narcotics as patient will not be able to have these when he leaves the hospital Chronic Hypotension Bradycardia Autonomic dysreflexia Chronic hypotension and bradycardia secondary to autonomic dysreflexia in setting of spinal cord injury Continue midodrine TID Paraplegia Continue home bowel regimen History of PE Continue Eliquis CARLOTA Iron 23, TIBC 451, ferritin 12, TSAT 5% Continue ferrous sulfate started this admission Hgb stable COPD Continue inhalers Seizure disorder Continue keppra GERD Continue PPI DVT PROPHYLAXIS On Eliquis Dispo: Medically ready for d/c, needs SNF for IV antibiotics, placement difficult due to hx of multiple AMAs in the past, CM following - possible d/c [facility] in [place] but patient and sister Lyn feel this is too far from home and are refusing option. Requesting for discharge home with - CM coordinating efforts. Care coordinated with Dr. France. I spent a total of 30 minutes coordinating, documenting, and providing care for this patient excluding time spent in the performance of separately billed services or time spent by another provider/QHP. Admission and Anticipated Discharge Date Admission Date: March 21, 2025 Subjective Follow-up for UTI, left foot osteomyelitis. Resting in bed. Reports pain is well-controlled. No acute events overnight. Offers no complaints. Review of Systems Review of Systems: At least ten systems reviewed and negative except as noted in the HPI. Physical Exam Physical Exam: Gen: WD/WN, NAD, resting in bed, A&Ox3 HEENT: Normocephalic, atraumatic Lung: Clear to Auscultation bilaterally Heart: Regular rate, regular rhythm Abdomen: Soft, NT, ND +BS x 4 : + Sanchez Neuro/extremities: + Paraplegic, able to move BUE, no changes Skin: Warm, sacral and L foot wounds with dressings c/d/i Results & Data Results & Data Vital Signs (Past 12 Hours) Vital Signs Temp Pulse Resp BP Pulse Ox O2 Del Method 04/14/25 07:17 36.4 C L 63 16 104/71 98 Room Air 04/13/25 23:16 36.5 C 74 16 112/77 97 Room Air 04/13/25 20:58 Room Air Laboratory Results BMP 04/14/25 05:36 Creatinine 0.47 L Diagnostic Findings Abdomen/Pelvis CT 03/21/25 03:49 EXAM: CT abd pelvis IV con only CLINICAL HISTORY: lower abd to pelvic pain, decub, uti TECHNIQUE: Contiguous axial images were obtained from the level of the diaphragm to the pubic symphysis with intravenous contrast. Coronal and sagittal reconstructions were likewise performed and indicated to increase the sensitivity for detecting clinically relevant pathology. If IV contrast material had not been administered, the likelihood of detecting abnormalities relevant to the patient's condition would have been substantially decreased. CT scan was performed according to ALARA (as low as reasonable achievable). COMPARISON: 04:08:00 DIRECTOR OF OFFICIATING FINDINGS: Few atelectatic bands are noted involving bilateral lung bases. The liver is normal in size and attenuation. No focal liver lesions are seen. There is no intra or extrahepatic biliary ductal dilatation. Hepatic vasculature is patent. Status post-cholecystectomy. The spleen, pancreas, and adrenal glands are unremarkable. The kidneys are normal in size and attenuation. There is no hydronephrosis or perinephric fat stranding. Right kidneys are 1-2 mm sized concretion in upper calyx. Left kidney shows 8 mm and 12 mm in upper calyx and 5 mm in lower calyx. The ureters are normal in caliber and no ureteral calculi are seen. The bladder is normal in contour. Pelvic viscera are unremarkable. No focal or diffuse bowel wall thickening or evidence of bowel obstruction is identified. No evidence of inflamed appendix. Abdominal and pelvic vasculature is patent. No adenopathy or fluid collections are seen. No aggressive appearing osseous lesions are identified. Evidence of sacral decubitus ulcer with focal soft tissue defect and erosion of distal sacrum and coccyx is seen. Colonic fecal and gaseous distension IMPRESSION: 1. Evidence of sacral decubitus ulcer with focal soft tissue defect and erosion of distal sacrum and coccyx is seen.-stable. 2. Bilateral non-obstructing renal calculi. 3. Colonic fecal and gaseous distension- possibility of constipation 4. No other new interval abnormality since prior study. Electronically signed by Justin Melgar 03-21-2025 06:24 AM Chest X-Ray 03/21/25 03:53 EXAM: XR chest 1V portable CLINICAL HISTORY: weak, chills TECHNIQUE: An X-ray image of the chest is obtained in AP projection. COMPARISON: 10/06/2024. FINDINGS: Pulmonary Parenchyma: Lungs are clear bilaterally. No evidence of consolidation, collapse, or focal opacities. Stable prominent bilateral parahilar markings. No evidence of pleural effusion or pleural thickening. Heart and Mediastinum: Heart size and shape are normal. No mediastinal widening or masses. No hilar or mediastinal lymphadenopathy. Bony Thorax: Bony thorax appears intact without fractures or deformities. Soft Tissues: Soft tissues overlying the chest wall are unremarkable. IMPRESSION: 1. No evidence of consolidation or pleural effusion. 2. No interval changes. Electronically signed by Luke Dunne 03-21-2025 05:33 AM Foot X-Ray 03/21/25 09:48 XR foot LT min 3V routine CLINICAL HISTORY: wound eval osteomyelitis COMPARISON: None FINDINGS: The bones are osteopenic. No acute fractures are visualized. No destructive lesions are visualized on conventional radiographic imaging. There is no gas within soft tissues. IMPRESSION: 1. Osteopenia 2. No acute fractures 2. No conventional radiographic evidence of acute osteolysis ACT 112: Negative or not required by law. Electronically signed by: Luisito Cotto M.D. 03/21/2025 10:31 AM Foot MRI 03/21/25 13:01 Exam(s): MRI LEFT FOOT Without Contrast EXAM: MR Left Lower Extremity Without Intravenous Contrast, Foot CLINICAL HISTORY: Reason for exam: Wound with exposed bone 5th metatarsal left. TECHNIQUE: Multiplanar magnetic resonance images of the left foot without intravenous contrast. COMPARISON: Plain films from 03/21/2025 FINDINGS: Bones/joints: There is increased signal on T2 fat sat and STIR involving the distal 1.6 cm of the 5th metatarsal with soft tissue ulceration down within a few mm of the bone. The midfoot alignment is normal. No other areas of abnormal bone marrow signal are identified. No acute fracture or dislocation is seen. Soft tissues: There is subcutaneous edema of the dorsum of the foot and lateral aspect of the distal foot. No abscess is identified. IMPRESSION: 1. There is subcutaneous edema of the dorsum of the foot and lateral aspect of the distal foot. No abscess is identified. 2. There is increased signal on T2 fat sat and STIR involving the distal 1.6 cm of the 5th metatarsal with soft tissue ulceration down within a few mm of the bone. Probable osteomyelitis. Electronically signed by: Cooper Miles MD 03/21/25 23:01 PM (5) Sacral decubitus ulcer Pressure injury stage: stage 4 Qualified Code(s): L89.154 - Pressure ulcer of sacral region, stage 4 (6) Chronic pain Chronic pain type: due to trauma Qualified Code(s): G89.21 - Chronic pain due to trauma (8) Hypotension Hypotension type: unspecified hypotension type Qualified Code(s): I95.9 - Hypotension, unspecified
[2025-04-15 06:11] LABS: Creatinine Clr Calc Pharmacy 243.0 ml/min
--- NOTE | 2025-04-15 14:38 | Hospitalist Progress Note ---
<Statement entered by Talat Romero, - 04/15/25 17:04> I have seen and examined the patient and have discussed the case with the advance practice provider. I have reviewed the advanced practitioner's documentation, and I agree with, and take responsibility for that plan of care. Patient doing well. Understands difficulty of placement. Reviewing records, believe patient would be a candidate for home IV antibiotics with his catheter in place despite his previous history. Reviewed case management notes, working on coordinating home antibiotics. I spent a total of 13 minutes coordinating, documenting, and providing care for this patient excluding time spent by another provider/[facility]. Date of Service April 15, 2025 Assessment & Plan (1) Complicated urinary tract infection: (2) Suprapubic catheter: (3) Pressure ulcer of left foot, stage 4: (4) Acute osteomyelitis of metatarsal bone of left foot: (5) Sacral decubitus ulcer: (6) Chronic pain: (7) Hypokalemia: (8) Hypotension: (9) Bradycardia: (10) Quadriplegia: (11) Autonomic dysreflexia: (12) History of pulmonary embolism: (13) Seizure disorder: Plan This is a 49 year old male with PMH significant for paraplegia, autonomic dysreflexia, neurogenic bladder with suprapubic cath, history of PE on anticoagulation, chronic sacral ulcer with history of osteomyelitis and cellulitis and multiple debridements, history of complicated UTI, history of septic shock, anxiety disorder, COPD, history of polysubstance abuse, chronic pain, seizure disorder, history of leaving AMA who presented to the ED on 03/21/2025 with weakness, chills, nausea without vomiting x5 days and is admitted for complicated UTI and left foot osteomyelitis. Stage IV pressure ulcer of left foot Complicated UTI due to suprapubic catheter Patient did not meet sepsis criteria on admission Foot MRI revealed probable osteomyelitis Urine culture grew acinetobacter baumannii/nosoco Wound culture grew staph aureus MRSA Suprapubic catheter exchanged on 03/21/2025 Plan: ID recommends IV cefepime 2g q8hr (instead of meropenem) and IV vancomycin 1500mg q12hr for 6 weeks (end date 05/04/25) Continue oxybutynin Unable to place PICC line due to inadequate vessel size s/p R internal jugular vein [place] catheter placement by Dr Ely on 04/01/25 - will need to schedule removal with Vascular Surgery outpatient once abx completed CM following for placement at SNF - difficult placement due to history of AMA and refusal of care Podiatry recommends: Offload with waffle boot and pillow Daily dressing changes per orders Treatment with 6 weeks IV antibiotics as above Sacral decubitus ulcer Chronic wound with history of multiple episodes of osteomyelitis and surgical debridement CTAP reveals focal soft tissue defect and erosion of distal sacrum and coccyx - stable Continue wound care Turn and reposition q2hr using ICU bed Chronic Pain Syndrome Chronic pain and history of polysubstance abuse Denies IVDU for "years" Admitting drug screen positive for marijuana only Patient trialed Suboxone previously and stopped taking due to constipation side effect Pain management consulted - patient would like to follow up with them outpatient after discharge Plan: Continue baclofen per home dosing Nortriptyline increased to 50mg HS Lyrica increased to 75mg TID Pain management added duloxetine 60 mg daily Breakthrough pain control with oxycodone 15mg q4hr PRN -Avoid IV narcotics as patient will not be able to have these when he leaves the hospital Chronic Hypotension Bradycardia Autonomic dysreflexia Chronic hypotension and bradycardia secondary to autonomic dysreflexia in setting of spinal cord injury Continue midodrine TID Paraplegia Continue home bowel regimen History of PE Continue Eliquis [place] Iron 23, TIBC 451, ferritin 12, TSAT 5% Continue ferrous sulfate started this admission Hgb stable COPD Continue inhalers Seizure disorder Continue keppra GERD Continue PPI DVT Prophylaxis: on Eliquis Code Status: FULL CODE PCP: to be set up with Peggy at discharge Disposition: medically ready for dc; CM coordinating for follow up at [facility] for labs and dressing changes, [facility] for IV supplies/teaching Patient seen in collaboration with Dr Romero. Please see addendum. I spent a total of 35 minutes coordinating, documenting, and providing care for this patient excluding time spent in the performance of separately billed services or time spent by another provider/[facility]. Admission and Anticipated Discharge Date Admission Date: March 21, 2025 Subjective Patient seen resting in bed Offers no acute complaints Notes his pain is the most controlled it has ever been Review of Systems Review of Systems: All systems reviewed & are unremarkable except as noted in Subjective Physical Exam Physical Exam: General/Psych: WD/WN, laying in bed, NAD, conversing easily Head: normocephalic, atraumatic Eyes: normal inspection, PERRL, conjunctivae pink ENT: external ear and nose normal, oropharynx normal Neck: normal visual inspection, trachea midline Respiratory: normal respiratory effort, lungs clear to auscultation, no wheeze/rales/rhonchi, no accessory muscle use Cardiovascular: regular rate and rhythm, no murmur/rub/gallop, no JVD Extremities: no cyanosis or clubbing, normal peripheral pulses, no BLE edema Abdomen/GI: normal bowel sounds, soft, nontender Neurologic/MSK: A+Ox3, paraplegia - able to move BUE Skin: no rashes, normal color, warm and dry; unable to assess sacral wound; left foot ulcer with optifoam dressing c/d/i Results & Data Results & Data Vital Signs (Past 12 Hours) Vital Signs Temp Pulse Pulse Resp BP Pulse Ox O2 Del Method 04/15/25 13:08 61 117/75 04/15/25 07:24 36.3 C L 57 L 16 101/69 96 Room Air Medications Administered Current Inpatient Medications Acetaminophen (Acetaminophen 325 Mg Tab) 650 mg PO Q4H PRN PRN Reason: Pain or Fever Stop: 04/20/25 10:46 Last Admin: 04/09/25 23:47 Dose: 650 mg Apixaban (Apixaban 5 Mg Tablet) 5 mg PO BID [facility] Stop: 05/01/25 20:59 Last Admin: 04/15/25 08:40 Dose: 5 mg Baclofen (Baclofen 20 Mg Tab) 20 mg PO TID [facility] Stop: 04/20/25 13:59 Last Admin: 04/15/25 13:10 Dose: 20 mg Bisacodyl (Bisacodyl 10 Mg Supp) 10 mg [place] BID [facility] Stop: 04/20/25 20:59 Last Admin: 04/15/25 13:13 Dose: 10 mg Duloxetine HCl (Duloxetine Hcl 60 Mg Cap) 60 mg PO QAM [facility] Stop: 04/21/25 08:59 Last Admin: 04/15/25 08:39 Dose: 60 mg Ferrous Sulfate (Ferrous Sulfate 325 Mg Tab) 325 mg PO QAM [facility] Stop: 05/04/25 08:59 Last Admin: 04/15/25 08:39 Dose: 325 mg Fluticasone/Vilanterol (Fluticasone/Vilanterol 200/25mcg 14 Puffs/Inhaler) 1 puffs INH DAILY [facility]; Protocol Stop: 04/21/25 10:14 Last Admin: 04/15/25 08:41 Dose: Not Given Heparin Sodium (Beef Lung) (Heparin 10 Unit/Ml 5 Ml Flush) 5 ml FLUSH PRN PRN PRN Reason: Flush Stop: 05/02/25 08:06 Last Admin: 04/15/25 08:33 Dose: 5 ml Hydroxyzine HCl (Hydroxyzine Hcl 25 Mg Tab) 25 mg PO DAILY PRN PRN Reason: Anxiety Stop: 04/20/25 10:46 Cefepime HCl (Maxipime 2000mg) 2,000 mg in 20 mls @ 5 mls/min IV Q8H [facility]; Protocol Stop: 05/04/25 23:59 Last Admin: 04/15/25 08:32 Dose: 5 mls/min Vancomycin HCl 1,250 mg/ (Sodium Chloride) 275 mls @ 200 mls/hr IV Q12H [facility] Stop: 05/04/25 18:00 Last Infusion: 04/15/25 06:59 Dose: Infused Lactulose (Lactulose Syrup 20 Gm/30 Ml Udc) 20 gm PO TID [facility] Stop: 04/20/25 13:59 Last Admin: 04/15/25 13:24 Dose: Not Given Levetiracetam (Levetiracetam 500 Mg Tab) 1,000 mg PO BID [facility] Stop: 04/20/25 20:59 Last Admin: 04/15/25 08:39 Dose: 1,000 mg Melatonin (Melatonin 3 Mg Tab) 3 mg PO HS [facility] Stop: 04/20/25 20:59 Last Admin: 04/14/25 21:43 Dose: 3 mg Midodrine (Midodrine Hcl 10 Mg Tab) 10 mg PO DAILY@0800,1200,1700 [facility] Stop: 04/20/25 16:59 Last Admin: 04/15/25 13:10 Dose: 10 mg Miscellaneous Information (Vancomycin Consult Active) 1 each N/A UD PRN PRN Reason: Consult Stop: 05/04/25 23:59 Nortriptyline HCl (Nortriptyline Hcl 25 Mg Cap) 50 mg PO DAILY@1999 [facility] Stop: 05/05/25 19:59 Last Admin: 04/14/25 20:25 Dose: 50 mg Ondansetron HCl (Ondansetron Inj 2 Mg/Ml 2 Ml Vial) 4 mg IV Q6H PRN PRN Reason: Nausea Stop: 04/20/25 10:46 Last Admin: 03/22/25 17:21 Dose: 4 mg Oxybutynin Chloride (Oxybutynin Chloride Xl 5 Mg Tabcr) 10 mg PO QAM [facility] Stop: 04/20/25 11:29 Last Admin: 04/15/25 08:39 Dose: 10 mg Oxycodone HCl (Oxycodone Hcl Ir 5 Mg Tab (Immediate Release)) 15 mg PO Q4 PRN PRN Reason: Moderate Pain (Scale 4, 5, 6) Stop: 04/19/25 11:07 Last Admin: 04/15/25 08:30 Dose: 15 mg Pantoprazole Sodium (Pantoprazole 40 Mg Tab) 40 mg PO DAILY [facility] Stop: 04/20/25 11:29 Last Admin: 04/15/25 08:39 Dose: 40 mg Polyethylene Glycol (Polyethylene (Miralax) 17 Gm Pack) 17 gm PO DAILY PRN PRN Reason: Constipation Stop: 04/20/25 10:46 Last Admin: 04/03/25 11:54 Dose: 17 gm Pregabalin (Pregabalin 75 Mg Cap) 75 mg PO TID [facility] Stop: 05/05/25 20:59 Last Admin: 04/15/25 13:18 Dose: 75 mg Senna/Docusate Sodium (Docusate Sodium/Senna 50/8.6mg Tab) 2 tab PO HS [facility] Stop: 04/20/25 20:59 Last Admin: 04/14/25 21:42 Dose: 2 tab Simethicone (Simethicone 80 Mg Chew) 80 mg PO TID PRN PRN Reason: gas Stop: 04/20/25 13:59 Last Admin: 03/30/25 08:33 Dose: 80 mg Umeclidinium [place] (Umeclidinium [place] 62.5mcg/Blister 7 Puffs/Inhaler) 1 puffs INH QAM [facility] Stop: 04/21/25 08:59 Last Admin: 04/15/25 08:41 Dose: Not Given Zinc Acetate/Diphenhydramine (Diphenhydramine 2%/Zinc 0.1% Cream 28.4gm Tube) 1 appln EXT BID PRN PRN Reason: Itching Stop: 05/05/25 05:24 Last Admin: 04/06/25 09:11 Dose: 1 appln (5) Sacral decubitus ulcer Pressure injury stage: stage 4 Qualified Code(s): L89.154 - Pressure ulcer of sacral region, stage 4 (6) Chronic pain Chronic pain type: due to trauma Qualified Code(s): G89.21 - Chronic pain due to trauma (8) Hypotension Hypotension type: unspecified hypotension type Qualified Code(s): I95.9 - Hypotension, unspecified
[2025-04-16] MEDS: VANCOMYCIN LEVEL ONE (05:41)
[2025-04-16 05:49] LABS: Hematocrit (blood only) 31.0 % (42.0-52.0); Hemoglobin 9.7 g/dl (14.0-18.0); Mean Corpuscular Hemoglobin 24.0 pg (25.0-34.0); Mean Corpuscular Volume 76.7 fL (80.0-100.0); Platelet Count 184 K/uL (130-400); RDW Standard Deviation 49.4 fL (36.4-46.3); Red Blood Count 4.04 M/uL (4.70-6.10); White Blood Count 7.44 K/ul (4.8-10.8)
[2025-04-16 06:05] LABS: Anion Gap 5.0 (3-11); Blood Urea Nitrogen 11.0 mg/dl (6-23); Calcium 8.8 mg/dl (8.6-10.3); Carbon Dioxide 26.0 mmol/L (21-32); Chloride 109.0 mmol/L (98-107); Creatinine Clr Calc Pharmacy 195.4 ml/min; Glucose 116.0 mg/dl (70-99(Fasting)); Magnesium 1.8 mg/dl (1.7-2.4); Potassium 3.6 mmol/L (3.5-5.1); Sodium 140.0 mmol/L (136-145)
--- NOTE | 2025-04-16 08:38 | Hospitalist Progress Note ---
<Statement entered by Talat Romero DO - 04/16/25 14:55> I have seen and examined the patient and have discussed the case with the advance practice provider. I have reviewed the advanced practitioner's documentation, and I agree with, and take responsibility for that plan of care. Patient doing well overall. He is eager to get home. Barrier to disposition is coordinating outpatient IV antibiotics and home care. Case management working through logistics. I spent a total of 11 minutes coordinating, documenting, and providing care for this patient excluding time spent by another provider/[facility]. Date of Service April 16, 2025 Assessment & Plan (1) Complicated urinary tract infection: (2) Suprapubic catheter: (3) Pressure ulcer of left foot, stage 4: (4) Acute osteomyelitis of metatarsal bone of left foot: (5) Sacral decubitus ulcer: (6) Chronic pain: (7) Hypokalemia: (8) Hypotension: (9) Bradycardia: (10) Quadriplegia: (11) Autonomic dysreflexia: (12) History of pulmonary embolism: (13) Seizure disorder: Plan This is a 49 year old male with PMH significant for paraplegia, autonomic dysreflexia, neurogenic bladder with suprapubic cath, history of PE on anticoagulation, chronic sacral ulcer with history of osteomyelitis and cellulitis and multiple debridements, history of complicated UTI, history of septic shock, anxiety disorder, COPD, history of polysubstance abuse, chronic pain, seizure disorder, history of leaving AMA who presented to the ED on 03/21/2025 with weakness, chills, nausea without vomiting x5 days and is admitted for complicated UTI and left foot osteomyelitis. Stage IV pressure ulcer of left foot Complicated UTI due to suprapubic catheter Patient did not meet sepsis criteria on admission Foot MRI revealed probable osteomyelitis Urine culture grew acinetobacter baumannii/nosoco Wound culture grew staph aureus MRSA Suprapubic catheter exchanged on 04/13/2025 Plan: ID recommends IV cefepime 2g q8hr (instead of meropenem) and IV vancomycin 1500mg q12hr for 6 weeks (end date 05/04/25) Continue oxybutynin Unable to place PICC line due to inadequate vessel size s/p R internal jugular vein [place] catheter placement by Dr Solis garcia 04/01/25 - will need to schedule removal with Vascular Surgery outpatient once abx completed CM following for placement at SNF - patient declining - trying to arrange for IV antibiotics to be delivered to home Podiatry recommends: Offload with waffle boot and pillow Daily dressing changes per orders Treatment with 6 weeks IV antibiotics as above Sacral decubitus ulcer Chronic wound with history of multiple episodes of osteomyelitis and surgical debridement CTAP reveals focal soft tissue defect and erosion of distal sacrum and coccyx - stable Continue wound care Turn and reposition q2hr using ICU bed Chronic Pain Syndrome Chronic pain and history of polysubstance abuse Denies IVDU for "years" Admitting drug screen positive for marijuana only Patient trialed Suboxone previously and stopped taking due to constipation side effect Pain management consulted - patient would like to follow up with them outpatient after discharge Plan: Continue baclofen per home dosing Nortriptyline increased to 50mg HS Lyrica increased to 75mg TID Pain management added duloxetine 60 mg daily Breakthrough pain control with oxycodone 15mg q4hr PRN -Avoid IV narcotics as patient will not be able to have these when he leaves the hospital Chronic Hypotension Bradycardia Autonomic dysreflexia Chronic hypotension and bradycardia secondary to autonomic dysreflexia in setting of spinal cord injury Continue midodrine TID Paraplegia Continue home bowel regimen History of PE Continue Eliquis [place] Iron 23, TIBC 451, ferritin 12, TSAT 5% Continue ferrous sulfate started this admission Hgb stable COPD Continue inhalers Seizure disorder Continue keppra GERD Continue PPI DVT Prophylaxis: on Eliquis Code Status: FULL CODE PCP: to be set up with Peggy at discharge Disposition: medically ready for dc; CM coordinating for follow up at [facility] for labs and dressing changes, [facility] for IV supplies/teaching Patient seen in collaboration with Dr Romero. Please see addendum. I spent a total of 35 minutes coordinating, documenting, and providing care for this patient excluding time spent in the performance of separately billed services or time spent by another provider/[facility]. Admission and Anticipated Discharge Date Admission Date: March 21, 2025 Subjective Patient seen resting in bed Reports constipation and associated abdominal discomfort No other acute concerns Review of Systems Review of Systems: All systems reviewed & are unremarkable except as noted in Subjective Physical Exam Physical Exam: General/Psych: WD/WN, laying in bed, NAD, conversing easily Head: normocephalic, atraumatic Eyes: normal inspection, PERRL, conjunctivae pink ENT: external ear and nose normal, oropharynx normal Neck: normal visual inspection, trachea midline Respiratory: normal respiratory effort, lungs clear to auscultation, no wheeze/rales/rhonchi, no accessory muscle use Cardiovascular: regular rate and rhythm, no murmur/rub/gallop, no JVD Extremities: no cyanosis or clubbing, normal peripheral pulses, no BLE edema Abdomen/GI: normal bowel sounds, soft, nontender Neurologic/MSK: A+Ox3, paraplegia - able to move BUE Skin: no rashes, normal color, warm and dry; unable to assess sacral wound Results & Data Results & Data Vital Signs (Past 12 Hours) Vital Signs Temp Pulse Resp BP Pulse Ox O2 Del Method 04/16/25 08:08 68 146/97 H 98 Room Air 04/16/25 06:57 36.8 C 74 16 107/72 93 Room Air 04/15/25 22:03 36.8 C 77 18 116/78 95 Room Air Laboratory Results Short CBC 04/16/25 Range/Units 05:37 WBC 7.44 (4.8-10.8) K/ul Hgb 9.7 L (14.0-18.0) g/dl Hct 31.0 L (42.0-52.0) % Plt Count 184 (130-400) K/uL BMP 04/16/25 05:37 Sodium 140 Potassium 3.6 Chloride 109 H Carbon Dioxide 26 BUN 11 Creatinine 0.51 L Glucose 116 H Calcium 8.8 I have independently reviewed and interpreted patient's labs including CBC, BMP, mag. Medications Administered Current Inpatient Medications Acetaminophen (Acetaminophen 325 Mg Tab) 650 mg PO Q4H PRN PRN Reason: Pain or Fever Stop: 04/20/25 10:46 Last Admin: 04/09/25 23:47 Dose: 650 mg Apixaban (Apixaban 5 Mg Tablet) 5 mg PO BID [facility] Stop: 05/01/25 20:59 Last Admin: 04/16/25 08:06 Dose: 5 mg Baclofen (Baclofen 20 Mg Tab) 20 mg PO TID [facility] Stop: 04/20/25 13:59 Last Admin: 04/16/25 08:05 Dose: 20 mg Bisacodyl (Bisacodyl 10 Mg Supp) 10 mg [place] BID [facility] Stop: 04/20/25 20:59 Last Admin: 04/16/25 07:53 Dose: 10 mg Duloxetine HCl (Duloxetine Hcl 60 Mg Cap) 60 mg PO QAM [facility] Stop: 04/21/25 08:59 Last Admin: 04/16/25 08:05 Dose: 60 mg Ferrous Sulfate (Ferrous Sulfate 325 Mg Tab) 325 mg PO QAM [facility] Stop: 05/04/25 08:59 Last Admin: 04/16/25 08:06 Dose: 325 mg Fluticasone/Vilanterol (Fluticasone/Vilanterol 200/25mcg 14 Puffs/Inhaler) 1 puffs INH DAILY [facility]; Protocol Stop: 04/21/25 10:14 Last Admin: 04/16/25 08:04 Dose: Not Given Heparin Sodium (Beef Lung) (Heparin 10 Unit/Ml 5 Ml Flush) 5 ml FLUSH PRN PRN PRN Reason: Flush Stop: 05/02/25 08:06 Last Admin: 04/16/25 05:41 Dose: 5 ml Hydroxyzine HCl (Hydroxyzine Hcl 25 Mg Tab) 25 mg PO DAILY PRN PRN Reason: Anxiety Stop: 04/20/25 10:46 Last Admin: 04/16/25 11:24 Dose: 25 mg Cefepime HCl (Maxipime 2000mg) 2,000 mg in 20 mls @ 5 mls/min IV Q8H [facility]; Protocol Stop: 05/04/25 23:59 Last Admin: 04/16/25 08:22 Dose: 5 mls/min Vancomycin HCl 1,250 mg/ (Sodium Chloride) 275 mls @ 200 mls/hr IV Q12H [facility] Stop: 05/04/25 18:00 Last Infusion: 04/16/25 07:11 Dose: Infused Lactulose (Lactulose Syrup 20 Gm/30 Ml Udc) 20 gm PO TID [facility] Stop: 04/20/25 13:59 Last Admin: 04/16/25 08:22 Dose: Not Given Levetiracetam (Levetiracetam 500 Mg Tab) 1,000 mg PO BID [facility] Stop: 04/20/25 20:59 Last Admin: 04/16/25 08:06 Dose: 1,000 mg Melatonin (Melatonin 3 Mg Tab) 3 mg PO HS [facility] Stop: 04/20/25 20:59 Last Admin: 04/15/25 19:53 Dose: 3 mg Midodrine (Midodrine Hcl 10 Mg Tab) 10 mg PO DAILY@0800,1200,1700 [facility] Stop: 04/20/25 16:59 Last Admin: 04/16/25 08:09 Dose: Not Given Miscellaneous Information (Vancomycin Consult Active) 1 each N/A UD PRN PRN Reason: Consult Stop: 05/04/25 23:59 Nortriptyline HCl (Nortriptyline Hcl 25 Mg Cap) 50 mg PO DAILY@1999 [facility] Stop: 05/05/25 19:59 Last Admin: 04/15/25 19:52 Dose: 50 mg Ondansetron HCl (Ondansetron Inj 2 Mg/Ml 2 Ml Vial) 4 mg IV Q6H PRN PRN Reason: Nausea Stop: 04/20/25 10:46 Last Admin: 03/22/25 17:21 Dose: 4 mg Oxybutynin Chloride (Oxybutynin Chloride Xl 5 Mg Tabcr) 10 mg PO QAM [facility] Stop: 04/20/25 11:29 Last Admin: 04/16/25 08:05 Dose: 10 mg Oxycodone HCl (Oxycodone Hcl Ir 5 Mg Tab (Immediate Release)) 15 mg PO Q4 PRN PRN Reason: Moderate Pain (Scale 4, 5, 6) Stop: 04/19/25 11:07 Last Admin: 04/16/25 11:24 Dose: 15 mg Pantoprazole Sodium (Pantoprazole 40 Mg Tab) 40 mg PO DAILY [facility] Stop: 04/20/25 11:29 Last Admin: 04/16/25 08:06 Dose: 40 mg Polyethylene Glycol (Polyethylene (Miralax) 17 Gm Pack) 17 gm PO DAILY PRN PRN Reason: Constipation Stop: 04/20/25 10:46 Last Admin: 04/16/25 08:01 Dose: 17 gm Pregabalin (Pregabalin 75 Mg Cap) 75 mg PO TID [facility] Stop: 05/05/25 20:59 Last Admin: 04/16/25 08:01 Dose: 75 mg Senna/Docusate Sodium (Docusate Sodium/Senna 50/8.6mg Tab) 2 tab PO HS [facility] Stop: 04/20/25 20:59 Last Admin: 04/15/25 19:53 Dose: 2 tab Simethicone (Simethicone 80 Mg Chew) 80 mg PO TID PRN PRN Reason: gas Stop: 04/20/25 13:59 Last Admin: 03/30/25 08:33 Dose: 80 mg Umeclidinium [place] (Umeclidinium [place] 62.5mcg/Blister 7 Puffs/Inhaler) 1 puffs INH QAM [facility] Stop: 04/21/25 08:59 Last Admin: 04/16/25 08:05 Dose: Not Given Zinc Acetate/Diphenhydramine (Diphenhydramine 2%/Zinc 0.1% Cream 28.4gm Tube) 1 appln EXT BID PRN PRN Reason: Itching Stop: 05/05/25 05:24 Last Admin: 04/06/25 09:11 Dose: 1 appln (5) Sacral decubitus ulcer Pressure injury stage: stage 4 Qualified Code(s): L89.154 - Pressure ulcer of sacral region, stage 4 (6) Chronic pain Chronic pain type: due to trauma Qualified Code(s): G89.21 - Chronic pain due to trauma (8) Hypotension Hypotension type: unspecified hypotension type Qualified Code(s): I95.9 - Hypotension, unspecified
--- NOTE | 2025-04-16 09:28 | Pharmacy Report ---
Pharmacy PK ABX Note - Date of Service April 16, 2025 - Assessment and Plan Assessment 04/16: * Vancomycin level this AM was ~15.3 mcg/ml - level correlates to goal AUC/BEATRIZ dosing. Therefore, will continue current regimen. 04/11: Day #22 vancomycin * Vancomycin level obtained this morning was 13.8mcg/mL which extrapolates to an AUC at the upper end of the goal range. Will continue current maintenance regimen. * To continue antibiotics (cefepime and vancomycin) through 05/04/25 per ID 04/09: Day #20 vancomycin * Random vancomycin level obtained this morning was 18.5mcg/mL which extrapolates to a supratherapeutic AUC. The maintenance dose of vancomycin has been decreased starting with the evening dose tonight. * Renal function has been stable/at baseline, has been afebrile, and no leukocytosis. * He also continues on cefepime. 04/03: * Obtained lab slightly early d/t adjustment in schedule/IV issues * Random level this 22.7 mcg/mL--> correlates with therapeutic dosing, will continue with current 03/29: * 49 year old M receiving vancomycin and cefepime per ID recommendation for treatment of left foot osteomyelitis. * MRSA isolated from L foot, sacrum, and abdomen cultures. Enterobacter and elizondo-sensititive Acinetobacter baumannii isolated from urine culture. CRAB now also isolated from sacral culture. * PMHx significant for quadriplegia with neurogenic bladder requiring a suprapubic catheter, frequent UTIs, recent admission for bacteremia. History of pseudomonas and MRSA in past. Recently started on Cipro. * SCr at baseline of ~0.5 mg/dL, this is likely inaccurate due to low muscle mass in quadriplegic patient. * End date for cefepime and vancomycin is 05/04/25 per ID. Plan Vancomycin * No change to vancomycin dosing, stable - continue same dose. Pharmacy will continue to follow and will adjust dose/frequency as necessary. Thank you. Pharmacy has transitioned to AUC monitoring for vancomycin. AUC/BEATRIZ is the preferred PK/PD target and is associated with decreased risk of nephrotoxicity compared to traditional trough targets.
[2025-04-17 00:15] VITALS: RESP 18
[2025-04-17 07:19] VITALS: BP 98/66; PULSE 65; TEMP 97.9; O2SAT 97
--- NOTE | 2025-04-17 12:29 | Discharge Summary ---
<Statement entered by Talat Romero, - 04/17/25 15:12> I have seen and examined the patient and have discussed the case with the advance practice provider. I have reviewed the advanced practitioner's documentation, and I agree with, and take responsibility for that plan of care. Patient eager to come home. Seen with Karol at the bedside. Conversation with Karol about plan for narcotic pill prescriptions and pain management. Continue plans for outpatient IV antibiotics as coordinated. Patient aware of the critical nature of his tunneled catheter and that it must be cared for meticulously and that nothing other than the prescribed antibiotic should be going through that line. I spent a total of 15 minutes coordinating, documenting, and providing care for this patient excluding time spent by another provider/QHP. Discharge Summary Date of Service April 17, 2025 Principal Dx & Hospital Course #1 = Principal Diagnosis (1) Complicated urinary tract infection: (2) Suprapubic catheter: (3) Pressure ulcer of left foot, stage 4: (4) Acute osteomyelitis of metatarsal bone of left foot: (5) Sacral decubitus ulcer: (6) Chronic pain: (7) Hypokalemia: (8) Hypotension: (9) Bradycardia: (10) Quadriplegia: (11) Autonomic dysreflexia: (12) History of pulmonary embolism: (13) Seizure disorder: Plan This is a 49 year old male with PMH significant for paraplegia secondary to SCI from a work accident in 2022, autonomic dysreflexia, neurogenic bladder with suprapubic catheter, history of PE on anticoagulation, chronic sacral ulcer with history of osteomyelitis and cellulitis and multiple surgical debridements, history of complicated UTIs, history of septic shock, anxiety disorder, COPD, history of polysubstance abuse, chronic pain syndrome, seizure disorder who presented to the ED at [facility] on 03/21/2025 with weakness and chills and was admitted for complicated UTI and left foot osteomyelitis. Stage IV pressure ulcer of left foot Acute osteomyelitis of metatarsal bone of left foot Patient presented with a wound on his left foot that has been present since February per records from [facility] Patient did not meet sepsis criteria on admission MRI results concerning for osteomyelitis of the distal aspect of the left fifth metatarsal Wound culture grew staph aureus MRSA Infectious Disease consulted and recommended IV cefepime 2g q8hr and IV vancomycin 1500mg q12hr for 6 weeks (end date 05/04/2025) Nursing was unable to place a PICC line due to inadequate vessel size s/p right internal jugular vein Grande catheter placement by Dr Thao Osorio on 04/01/25 - Follow up appointment with Dr Alonso of Vascular Surgery tbd for removal of catheter Wound care recommendations: -Daily dressing changes with Optifoam -Offload feet with waffle boots or pillows -Follow up appointment with Wound Care Clinic on 04/25/2025 at 8:30am Case Management attempted to get patient placed at a SNF or home health services for the duration of his antibiotics but he was denied by multiple facilities and agencies. Patient and his sister, Lyn, decided that patient was not willing to go to a LTAC due to anxiety and needing to know that family can visit regularly. Therefore, patient is returning home to live with Lyn and a paid caregiver from prior to admission. Lny reports that her home is safe and CYS checks in frequently due to her having custody of a grandchild. [facility] will be supplying and teaching Lyn how to administer the antibiotics. Patient will come to the [facility] starting on 04/24/2025 at 1:30pm for weekly dressing changes and labs. Lyn will use a wheelchair van to transport patient to follow up appointments. We stressed to the patient and his sister the importance of attending appointments for proper follow up care. Complicated UTI due to suprapubic catheter Urine culture grew acinetobacter baumannii/nosoco Suprapubic catheter exchanged by nursing on 04/13/2025 Continue oxybutynin 10mg daily from [facility] Follow up appointment with Dr. Howard of Urology on 05/20/2025 at 10:00am Sacral decubitus ulcer Chronic wound with history of multiple episodes of osteomyelitis and surgical debridement Admitting CTAP revealed focal soft tissue defect and erosion of distal sacrum and coccyx - stable Patient has an air flow bed at home Patient's brother was doing daily dressing changes prior to admission - continue Follow up appointment with Wound Care Clinic on 04/25/2025 at 8:30am Chronic pain syndrome Multifactorial pain due to history of SCI and chronic sacral wound History of illicit drug use but denies IVDU for years-> patient is a poor candidate for chronic long-acting opiate therapy in the outpatient setting per pain management Patient trialed Suboxone previously and stopped taking due to constipation side effect Admitting drug screen positive for marijuana only Pain management consulted and provided recommendations: -Continue baclofen 20mg tid from [facility] -Nortriptyline increased to 50mg HS -Lyrica increased to 75mg TID -Added duloxetine 60 mg daily -Breakthrough pain control with oxycodone 15mg q6hr PRN - encouraged to take with tylenol for synergistic effect-> reviewed PDMP and provided patient with one week supply of oxycodone until PCP appointment at which time he will need a refill and narcotic agreement -Follow up appointment with Ramo Hernandez PA-C of Pain Management on 05/27/2025 at 1:00pm Chronic hypotension Bradycardia Autonomic dysreflexia Chronic hypotension and bradycardia secondary to autonomic dysreflexia in setting of spinal cord injury Continue midodrine 10mg tid from [facility] Paraplegia Continue bowel regimen from [facility] History of PE Continue Eliquis from [facility] CARLOTA Hgb stable around 10 Iron 23, TIBC 451, ferritin 12, TSAT 5% Ferrous sulfate 325mg QOD started this admission COPD Continue inhalers from [facility] Seizure disorder Continue keppra 1000mg bid from [facility] GERD Continue pantoprazole 40mg daily from [facility] Patient seen in collaboration with Dr Romero. Please see addendum. Notes For Next Care Provider Complex 49 year old male with significant PMH who was admitted at [facility] from 03/21-04/17/2025 for left foot osteomyelitis and complicated UTI. Things to be done/ensure patient does: -Complete duration of IV antibiotics ending 05/04/2025 with proper administration by sisterLyn -Go to MTU at [facility] weekly starting for dressing changes and labs -Attend follow up appointment with Vascular Surgery for removal of Grande catheter upon completion of antibiotics - date and time tbd -Daily dressing changes for sacral ulcer and left foot wound by patient's brother -Attend follow up appointment with W[facility] Care Clinic for care of sacral ulcer and left foot wound -Attend follow up appointment with Urology for management of suprapubic catheter -Narcotic agreement for oxycodone refill until patient sees pain management -Attend follow up appointment with Pain Management Medication Changes From Visit Ferrous sulfate 325mg PO QOD Nortriptyline 50mg HS Lyrica 75mg TID Duloxetine 60 mg daily Oxycodone 15mg q6hr PRN - encouraged to take with tylenol for synergistic effect Admission HPI Per Admitting Provider 49 year old male with PMH significant for paraplegia, autonomic dysreflexia, neurogenic bladder with suprapubic cath, history of PE on anticoagulation, chronic sacral ulcer with history of osteomyelitis and cellulitis and multiple debridements, history of complicated UTI, history of septic shock, anxiety disorder, COPD, history of polysubstance abuse, chronic pain, seizure disorder, history of leaving AMA who presented to the ED on 03/21/2025 with weakness, chills, nausea without vomiting x5 days. He notes lower abdominal pain and states this is how he typically feels when he has a UTI. He is unsure when his suprapubic catheter was last changed but notes it is supposed to be changed every 30 days. He also reports low blood pressures over the last 5 days with systolic readings in the 70s that increase to 115s after midodrine but then drop again. He reports he has been taking his midodrine 9-10 times per day because of this. He has chronic pain and describes full body burning pain from the neck down. States pain has been really bad the past couple days rating 9/10. He has a chronic sacral wound and a left foot wound since 02/14/2025 per records. His family has been helping him manage his wounds. His brother does the wet to dry packed dressings in his chronic sacral ulcer and his niece was changing the dressing on his left foot wound. He says that there was a black scab covering the left foot wound that fell off yesterday. He denies chest pain and SOB. He admits to smoking 1ppd of cigarettes and daily marijuana use. Denies other substances. He lives at home with his sister currently. Summary of multiple recent hospitalizations per Peggy chart review: * Admitted at [facility] from 11/25-12/05 for sacral osteomyelitis and complicated UTI; underwent surgical debridement of sacrum with tissue culture VRE; planned for SNF for completion IV abx but left AMA * Admitted at [facility] from 12/07-12/21 for recurrence of sacral osteomyelitis and had episode of altered mental status and seizure like activity (EEG negative) -> transfer to [facility] * Admitted [place] [facility] [place] 12/21-01/13 underwent surgical debridement of sacrum again; completed course of IV antibiotics for osteomyelitis per ID recs; left AMA after abx completion * Admitted at [facility] from 01/17-01/19 for sacral wound care; no debridement or antibiotics recommended; planned for SNF but left AMA * Admitted at [facility] from 01/22-02/01 for EBSL E coli UTI; completed course of IV ertapenem; addiction medicine consulted: dc gabapentin, start lyrica, start suboxone * No show at addiction medicine follow up appointment on 02/05 * Admitted at [facility] from 02/14-02/21 for left foot wound, hypotension, UTI symptoms; UTI thought to be contamination and no antibiotics recommended per ID; discharged * Admitted at [facility] from 03/03-03/04 for hypotension - noted to be baseline and rec continue home midodrine; sepsis work up unremarkable; discharged * Admitted at [facility] from 03/06-03/08 for syncopal episodes; workup (labs, carotid doppler, echo) unremarkable; rec continue home midodrine; discharged Admission Exam Per Admitting Provider General/Psych: WD/WN, laying in bed, appears uncomfortable Head: normocephalic, atraumatic Eyes: normal inspection, PERRL, conjunctivae pink ENT: external ear and nose normal, oropharynx normal Neck: normal visual inspection, trachea midline Respiratory: normal respiratory effort, lungs clear to auscultation, no wheeze/rales/rhonchi, no accessory muscle use Cardiovascular: regular rate and rhythm, no murmur/rub/gallop, no JVD Extremities: no cyanosis or clubbing, normal peripheral pulses, no BLE edema Abdomen/GI: normal bowel sounds, soft, tender on palpation Neurologic/MSK: A+Ox3, paraplegia - able to move BUE Skin: no rashes, normal color, warm and dry; sacral pressure ulcer with wet to dry packed dressing without drainage or surrounding erythema; open wound to left lateral foot with serosanguinous drainage without surrounding erythema; small a brasion to right chest Discharge Exam General/Psych: WD/WN, laying in bed, NAD, conversing easily Head: normocephalic, atraumatic Eyes: normal inspection, PERRL, conjunctivae pink ENT: external ear and nose normal, oropharynx normal Neck: normal visual inspection, trachea midline Respiratory: normal respiratory effort, lungs clear to auscultation, no wheeze/rales/rhonchi, no accessory muscle use Cardiovascular: regular rate and rhythm, no murmur/rub/gallop, no JVD Extremities: no cyanosis or clubbing, normal peripheral pulses, no BLE edema Abdomen/GI: normal bowel sounds, soft, nontender Neurologic/MSK: A+Ox3, paraplegia - able to move BUE Skin: no rashes, normal color, warm and dry; unable to assess sacral wound; left foot wound dressing c/d/i Updated Medication List Medication Instructions Recorded Confirmed Type albuterol sulfate 2.5 mg/3 mL 0 mg inhalation Q4H PRN Shortness 08/26/24 03/21/25 History (0.083 %) solution for nebulization Of Breath Or Wheezing baclofen 10 mg tablet 20 mg PO TID 08/26/24 03/21/25 History bisacodyl 10 mg rectal suppository 10 mg WV BID 08/26/24 03/21/25 History budesonide-formoterol HFA 160 2 puff inhalation BID 08/26/24 03/21/25 History mcg-4.5 mcg/actuation aerosol inhaler docusate sodium 100 mg capsule 100 mg PO BID PRN Constipation 08/26/24 03/21/25 History hydroxyzine HCl 25 mg tablet 25 mg PO DAILY PRN Anxiety 08/26/24 03/21/25 History lactulose 10 gram/15 mL oral 20 g PO TID 08/26/24 03/21/25 History solution midodrine 10 mg tablet 10 mg PO TID PRN Hypotension 08/26/24 03/21/25 History oxybutynin chloride 10 mg 10 mg PO QAM 08/26/24 03/21/25 History tablet,extended release 24 hr pantoprazole 40 mg tablet,delayed 40 mg DAILY 08/26/24 03/21/25 History release sennosides 8.6 mg-docusate sodium 2 tab PO HS 08/26/24 03/21/25 History 50 mg tablet (Senexon-S) tiotropium bromide 2.5 2 puff inhalation QAM 08/26/24 03/21/25 History mcg/actuation mist for inhalation (Spiriva Respimat) acetaminophen 325 mg tablet 650 mg PO Q6 PRN Fever Or Pain 09/30/24 03/21/25 History melatonin 3 mg capsule 3 mg PO HS 09/30/24 03/21/25 History ondansetron 4 mg disintegrating 4 mg translingual Q6 PRN Nausea 09/30/24 03/21/25 History tablet albuterol sulfate 0.63 mg/3 mL 0.63 mg inhalation UD PRN SOB 03/21/25 03/21/25 History solution for nebulization apixaban 5 mg tablet (Eliquis) 5 mg PO BID 03/21/25 03/21/25 History levetiracetam 1,000 mg tablet 1,000 mg PO BID 03/21/25 03/21/25 History simethicone 80 mg chewable tablet 80 mg PO TID 03/21/25 03/21/25 History duloxetine 60 mg capsule,delayed 60 mg PO QAM #30 caps 04/17/25 Rx release ferrous sulfate 325 mg (65 mg 325 mg PO Q OTHER DAY #30 tabs 04/17/25 Rx iron) tablet nortriptyline 25 mg capsule 50 mg (2 x 25 mg) PO HS #30 caps 04/17/25 Rx oxycodone 15 mg tablet 15 mg PO Q6H PRN severe pain 04/17/25 Rx (scale score 7-10) #30 tabs pregabalin 75 mg capsule (Lyrica) 75 mg PO TID #90 caps 04/17/25 Rx Hospital Stay Data Consultations 03/21/25 06:47 ED Decision to Admit Stat 03/21/25 10:47 Consult Pain Management Routine 03/21/25 11:30 Consult Podiatry Routine 03/22/25 10:46 Consult Infectious Diseases Routine 04/01/25 07:00 Consult Vascular Surgery Routine Procedures Performed Operation Date: 04/01/25 15:30 Actual Procedures p Insertion of Grande Catheter, Right Internal Juggular Approach, Ultrasound Localization of Right Internal Jugular Vein, Fluoroscopy for Positioning(Right) - Martin Alonso MD Diagnostic Imagining Performed Abdomen/Pelvis CT 03/21/25 03:49 EXAM: CT abd pelvis IV con only CLINICAL HISTORY: lower abd to pelvic pain, decub, uti TECHNIQUE: Contiguous axial images were obtained from the level of the diaphragm to the pubic symphysis with intravenous contrast. Coronal and sagittal reconstructions were likewise performed and indicated to increase the sensitivity for detecting clinically relevant pathology. If IV contrast material had not been administered, the likelihood of detecting abnormalities relevant to the patient's condition would have been substantially decreased. CT scan was performed according to ALARA (as low as reasonable achievable). COMPARISON: 04:08:00 FOOD AND BEVERAGE ASSISTANT FINDINGS: Few atelectatic bands are noted involving bilateral lung bases. The liver is normal in size and attenuation. No focal liver lesions are seen. There is no intra or extrahepatic biliary ductal dilatation. Hepatic vasculature is patent. Status post-cholecystectomy. The spleen, pancreas, and adrenal glands are unremarkable. The kidneys are normal in size and attenuation. There is no hydronephrosis or perinephric fat stranding. Right kidneys are 1-2 mm sized concretion in upper calyx. Left kidney shows 8 mm and 12 mm in upper calyx and 5 mm in lower calyx. The ureters are normal in caliber and no ureteral calculi are seen. The bladder is normal in contour. Pelvic viscera are unremarkable. No focal or diffuse bowel wall thickening or evidence of bowel obstruction is identified. No evidence of inflamed appendix. Abdominal and pelvic vasculature is patent. No adenopathy or fluid collections are seen. No aggressive appearing osseous lesions are identified. Evidence of sacral decubitus ulcer with focal soft tissue defect and erosion of distal sacrum and coccyx is seen. Colonic fecal and gaseous distension IMPRESSION: 1. Evidence of sacral decubitus ulcer with focal soft tissue defect and erosion of distal sacrum and coccyx is seen.-stable. 2. Bilateral non-obstructing renal calculi. 3. Colonic fecal and gaseous distension- possibility of constipation 4. No other new interval abnormality since prior study. Electronically signed by Justin Melgar 03-21-2025 06:24 AM Chest X-Ray 03/21/25 03:53 EXAM: XR chest 1V portable CLINICAL HISTORY: weak, chills TECHNIQUE: An X-ray image of the chest is obtained in AP projection. COMPARISON: 10/06/2024. FINDINGS: Pulmonary Parenchyma: Lungs are clear bilaterally. No evidence of consolidation, collapse, or focal opacities. Stable prominent bilateral parahilar markings. No evidence of pleural effusion or pleural thickening. Heart and Mediastinum: Heart size and shape are normal. No mediastinal widening or masses. No hilar or mediastinal lymphadenopathy. Bony Thorax: Bony thorax appears intact without fractures or deformities. Soft Tissues: Soft tissues overlying the chest wall are unremarkable. IMPRESSION: 1. No evidence of consolidation or pleural effusion. 2. No interval changes. Electronically signed by Luke Dunne 03-21-2025 05:33 AM Foot X-Ray 03/21/25 09:48 XR foot LT min 3V routine CLINICAL HISTORY: wound eval osteomyelitis COMPARISON: None FINDINGS: The bones are osteopenic. No acute fractures are visualized. No destructive lesions are visualized on conventional radiographic imaging. There is no gas within soft tissues. IMPRESSION: 1. Osteopenia 2. No acute fractures 2. No conventional radiographic evidence of acute osteolysis ACT 112: Negative or not required by law. Electronically signed by: Luisito Cotto M.D. 03/21/2025 10:31 AM Foot MRI 03/21/25 13:01 Exam(s): MRI LEFT FOOT Without Contrast EXAM: MR Left Lower Extremity Without Intravenous Contrast, Foot CLINICAL HISTORY: Reason for exam: Wound with exposed bone 5th metatarsal left. TECHNIQUE: Multiplanar magnetic resonance images of the left foot without intravenous contrast. COMPARISON: Plain films from 03/21/2025 FINDINGS: Bones/joints: There is increased signal on T2 fat sat and STIR involving the distal 1.6 cm of the 5th metatarsal with soft tissue ulceration down within a few mm of the bone. The midfoot alignment is normal. No other areas of abnormal bone marrow signal are identified. No acute fracture or dislocation is seen. Soft tissues: There is subcutaneous edema of the dorsum of the foot and lateral aspect of the distal foot. No abscess is identified. IMPRESSION: 1. There is subcutaneous edema of the dorsum of the foot and lateral aspect of the distal foot. No abscess is identified. 2. There is increased signal on T2 fat sat and STIR involving the distal 1.6 cm of the 5th metatarsal with soft tissue ulceration down within a few mm of the bone. Probable osteomyelitis. Electronically signed by: Cooper Miles MD 03/21/25 23:01 PM Pending Results Patient Have Any Pending Studies at Discharge: No Discharge Instructions Given to Patient (Per Discharging Provider) You presented to the hospital with weakness, chills, and nausea and were admitted for a urinary tract infection. You also had a pressure sore on your left foot and osteomyelitis, or infection of the bone. Because of this bone infection, you need to complete six weeks of IV antibiotics. 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 You will be returning home with your sister who is going to be taught how to administer your antibiotics. You will need to come to the hospital once a week for dressing changes and labs. You will need to follow up with Vascular Surgery to have your catheter in your chest removed when you complete your course of antibiotics. We consulted pain management for your chronic pain while you were in the hospital. They recommended starting a new medication named duloxetine, increasing your lyrica and nortriptyline doses, and using oxycodone with tylenol for breakthrough pain. You will need to follow up with Ramo Hernandez outpatient. It is important that you do daily dressing changes for your butt wound and left foot wound. You need to turn and reposition every 2 hours to keep pressure off of your butt. You need to wear the waffle boots or use pillows to elevate your feet and keep pressure off of your feet. You will need to follow up with the Wound Care Clinic outpatient. Your suprapubic catheter was exchanged on 04/13/2025. You will need to follow up with Urology outpatient. MEDICATION CHANGES: IV antibiotics (cefepime every 8 hours and vancomycin every 12 hours) for 6 weeks - end date is 05/04/2025 - you will need to come to the hospital to the Medication Transfusion Unit for weekly dressing changes and labs Start taking ferrous sulfate (iron) 325mg by mouth every other day Start taking duloxetine 60mg by mouth once daily Start taking lyrica 75mg by mouth three times per day Start taking nortriptyline 50mg by mouth at night Oxycodone 15mg every 4 hours as needed for breakthrough pain - recommend taking with tylenol SUMMARY OF TEST RESULTS: Urine culture positive for bacteria CT scan of abdomen and pelvis showed stable sacral pressure wound Chest x-ray normal Foot x-ray showed weak bones Foot MRI showed osteomyelitis PENDING TEST RESULTS: None RECOMMENDATIONS FOR FOLLOW-UP: We have made the following appointments for you - please make sure to attend these appointments for proper follow up of your medical conditions: -Medication Transfusion Unit at [facility] on 04/24/2025 at 1:30pm for dressing change and labs -Primary Care Provider on 04/24/2025 at 3:00pm -Wound Care Clinic on 04/25/2025 at 8:30am -Dr Alonso with Vascular Surgery for removal of your IV catheter - they will reach out to you about this appointment -Dr Howard with Urology on 05/20/2025 at 10:00am -Ramo Hernandez with Pain Management on 05/27/2025 at 1:00pm OTHER INSTRUCTIONS: Seek medical attention if you have: * temperature above 101 * chest pain or trouble breathing * abdominal pain, nausea, vomiting * diarrhea, dark stools or bloody stools * any unanswered questions or concerns Call 911 if symptoms are severe. It has been a pleasure taking care of you. Please take care of yourself. If you have any questions regarding your recent hospitalization please contact [facility] and request [facility] Hospital[facility] @ [phone]. Total Time Total Time Spent Total Time Spent (In Minutes): I spent a total of 35 minutes coordinating, documenting and providing care for this patient excluding time spent in the performance of separately billed services or time spent by another provider/QHP.
== END 2025-04-17 13:05 | disposition home or self-care (01) | DRG 698 ==
LOC: ED 03:32 → SUATTDRO 08:02 → 2E 08:02 → 3E 04-06 22:02

== ENCOUNTER 2025-04-26 00:55 | Observation (INO) ==
--- NOTE | 2025-04-26 02:09 | Emergency Department Note ---
Impression & Plan Seizure, Medication reaction, Left-sided chest pain patient was being evaluated by the [facility] ED Provider Note NAME: NEHEMIAS SANTOS AGE: 49 SEX: Male INFORMANT: Patient ED PROVIDER(S): Jennifer Malagon DO CHIEF COMPLAINT: left-sided chest pain; questionable seizure PLAN: Disposition: admit to the [facility] MEDICAL DECISION MAKING: This is a 49-year-old male patient with multiple chronic health issues but is currently receiving IV antibiotics at home for osteomyelitis in his foot. Patient explains that he was in his usual state of health other than feeling somewhat tired today when he developed sudden onset of left-sided chest pain and shortness of breath. Family described hearing a gasp and finding the patient shaking with possible seizure activity. EMS was called and he was transported here. After a more lengthy discussion with the patient's sister who was helping care for him this evening, she describes what sounds like a seizure. She also explains that this happened just a couple of minutes after starting his vancomycin infusion. She also notes that he has had a previous seizure while receiving vancomycin. Laboratory studies reveal no leukocytosis. Hemoglobin was 10.2 which is baseline for the patient. Potassium was 3 which is slightly low. Glucose was 129. Troponin was 5.1. Procalcitonin and lactate were negative. D-dimer was negative. Seizure precautions were taken. The patient had no further seizure activity while here in the emergency department. Triage Nursing notes: reviewed and agree With them. Vital Signs: reviewed and unremarkable Additional History obtained from: the patient's sister who takes care of him Chronic Medical/Social Conditions affecting care: quadriplegia Differential Diagnosis: sepsis, seizure, medication side effects, electrolyte abnormality hypoglycemia, PE, cardiac ischemia Diagnostics, independently interpreted by me: ECG: Normal sinus rhythm at a rate of [address] segment elevation or signs of ischemia. There is no ectopy. Cardiac Monitoring: Normal sinus rhythm at a rate of 74 Imaging studies: portable chest x-ray: as per [facility] HPI: 49 year old Male arrives for evaluation of seizure and left-sided chest pain. Patient explains that he was in his usual state of health other than feeling somewhat tired today when he developed sudden onset of left-sided chest pain and shortness of breath. Family described hearing a gasp and finding the patient shaking with possible seizure activity. PAST MEDICAL HISTORY: See Below, PAST SURGICAL HISTORY: See Below, SOCIAL HISTORY: See Below, HOME MEDICATIONS: see list ALLERGIES: see list VITALS: See Below PHYSICAL EXAMINATION: HEENT: Head - normocephalic and atraumatic. Pupils are equal, round, and reactive to light. Extraocular eye muscles are intact and sclera are anicteric. Nose - moist nasal mucosa without discharge. Mouth - moist buccal mucosa. Oropharynx is nonerythematous and there is no tonsillar exudate or edema noted. Patient has poor dentition. He has dry mucous membranes Neck: Supple; no JVD, nuchal rigidity, cervical lymphadenopathy. Heart: Regular rate and rhythm. There is a normal S1 and S2 with no murmurs, clicks, or gallops appreciated. Lungs: Clear to auscultation bilaterally with no wheezes, rales, or rhonchi. Abdomen: Soft, completely nontender, nondistended, with good bowel sounds. There are no palpable pulsatile masses or hepatosplenomegaly. There is no guarding, rigidity, or rebound noted. Extremities: No evidence of cyanosis, clubbing, or edema. There are easily palpable peripheral pulses. Neuro: patient is somewhat lethargic on exam. He is oriented to day, time, and place. he answers questions appropriately. 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 A complete history and physical was performed. Laboratory studies were drawn as above. Seizure precautions were taken. An order was placed for continuous cardiac monitoring. The patient was in a normal sinus rhythm at a rate of 74. Twelve- lead EKG was obtained as described above. Portable chest x-ray was performed. Patient had no further seizure activity while here in the emergency department. He will require admission to the hospital for continued care of a known osteomyelitis to the left foot and a sacral wound. He may not be able to continue on with the IV vancomycin secondary to reaction. I discussed the case with the [facility] Hospitalist and they will evaluate for further management. Past Med/Surg History Problem List (Updated 04/26/25 @ 08:12 by Jennifer Malagon DO) Left-sided chest pain (Acute) Medication reaction (Acute) Seizure (Acute) Breakthrough seizure Iron deficiency anemia Encounter for pre-operative examination Acute osteomyelitis of metatarsal bone of left foot History of illicit drug use Spinal cord injury, cervical region Seizure disorder GERD (gastroesophageal reflux disease) COPD (chronic obstructive pulmonary disease) Bradycardia Pressure ulcer of left foot, stage 4 Stage IV pressure ulcer Hypokalemia (Acute) Quadriplegia (Acute) Hypotension (Acute) Autonomic dysreflexia Sacral decubitus ulcer (Acute) Complicated urinary tract infection (Acute Unknown) History of pulmonary embolism Chronic pain (Acute) Suprapubic catheter (Acute) Medical History Open wound of left foot Chronic osteomyelitis of sacrum Sacral decubitus ulcer, stage IV Complicated UTI (urinary tract infection) RSV (respiratory syncytial virus infection) Hypoxia Leg wound, left Leg wound, right 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 Hypoxic respiratory failure 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 Severe sepsis Chest pain Acute hypoxemic respiratory failure Change or removal of nonsurgical wound dressing Pneumonia Encephalopathy Hypotension Acute UTI Sacral wound Quadriplegia Anemia Hypomagnesemia Hypokalemia Complication, blocked suprapubic catheter Leukocytosis Acute urinary retention Hydronephrosis Constipation Abdominal pain Left sided abdominal pain Cough Pneumonia Abnormal chest CT Elevated hemidiaphragm Pneumonia involving right lung Soft tissue infection Suprapubic catheter dysfunction Aspiration pneumonia Bacteremia Acute hypotension Acute hypokalemia Abdominal pain Hypoxic respiratory failure Sepsis Acute UTI Acute UTI Abdominal pain Aspiration pneumonitis Pneumonia Paraplegia Surgical History No pertinent past surgical history Social History Smoking Status: Current every day smoker Tobacco Type: Cigarettes Cigarettes Per Day: 1ppd; Second Hand Exposure: Yes; Do You Dip or Chew Tobacco: No; Hx Alcohol Use: No Hx Substance Use: Yes Non-Prescribed Medications: Crack / Cocaine and Marijuana Preferred Language: [place] Communication Ability: Effective Communication Ability Comment: difficulty writing [employer] Required: No Beliefs That Will Affect Care: None Current Living Situation: Family Current Living Situation Comment: lives home with sister Feels Safe at Home: Yes Assistive Devices: Slide Board, Wheelchair and Other Allergies Allergies Allergy/AdvReac Type Severity Reaction Status Date / Time Opioids - Morphine Analogues AdvReac Severe severe Verified 04/26/25 01:40 bradycardia Home Meds Home Medications Medication Instructions Recorded Confirmed albuterol sulfate 2.5 mg/3 mL 1.25 mg inhalation Q4H PRN 01/19/25 09/19/25 (0.083 %) solution for nebulization Shortness Of Breath Or Wheezing baclofen 10 mg tablet 20 mg PO TID 08/26/24 04/26/25 bisacodyl 10 mg rectal suppository 10 mg CA QAM 08/26/24 04/26/25 budesonide-formoterol HFA 160 2 puff inhalation BID 08/26/24 04/26/25 mcg-4.5 mcg/actuation aerosol inhaler docusate sodium 100 mg capsule 100 mg PO BID PRN Constipation 08/26/24 04/26/25 hydroxyzine HCl 25 mg tablet 25 mg PO DAILY PRN Anxiety 08/26/24 04/26/25 lactulose 10 gram/15 mL oral 20 g PO TID 08/26/24 04/26/25 solution midodrine 10 mg tablet 10 mg PO TID PRN Hypotension 08/26/24 04/26/25 oxybutynin chloride 10 mg 10 mg PO QAM 08/26/24 04/26/25 tablet,extended release 24 hr pantoprazole 40 mg tablet,delayed 40 mg DAILY 08/26/24 04/26/25 release sennosides 8.6 mg-docusate sodium 2 tab PO HS 08/26/24 04/26/25 50 mg tablet (Senexon-S) tiotropium bromide 2.5 2 puff inhalation QAM 08/26/24 04/26/25 mcg/actuation mist for inhalation (Spiriva Respimat) acetaminophen 325 mg tablet 650 mg PO Q6 PRN Fever Or Pain 09/30/24 04/26/25 melatonin 3 mg capsule 3 mg PO HS 09/30/24 04/26/25 ondansetron 4 mg disintegrating 4 mg translingual Q6 PRN Nausea 09/30/24 04/26/25 tablet apixaban 5 mg tablet (Eliquis) 5 mg PO BID 03/21/25 04/26/25 levetiracetam 1,000 mg tablet 1,000 mg PO BID 03/21/25 04/26/25 simethicone 80 mg chewable tablet 80 mg PO TID 03/21/25 04/26/25 cefepime 1 gram solution for 1.5 g IV DIRECTED 04/26/25 04/26/25 injection heparin, porcine (PF) 100 unit/mL 500 unit IV DIRECTED 04/26/25 04/26/25 intravenous syringe (Heparin Lock Flush (Porcine) (PF)) sodium chloride 0.9 % (flush) 10 ml IV DIRECTED 04/26/25 04/26/25 vancomycin 2 gram intravenous 2 g IV DIRECTED 04/26/25 04/26/25 solution Previous Rx's Medication Instructions Recorded duloxetine 60 mg capsule,delayed 60 mg PO QAM #30 caps 04/17/25 release ferrous sulfate 325 mg (65 mg 325 mg PO Q OTHER DAY #30 tabs 04/17/25 iron) tablet nortriptyline 25 mg capsule 50 mg (2 x 25 mg) PO HS #30 caps 04/17/25 oxycodone 15 mg tablet 15 mg PO Q6H PRN severe pain 04/17/25 (scale score 7-10) #30 tabs pregabalin 75 mg capsule (Lyrica) 75 mg PO TID #90 caps 04/17/25 Results & Data (ED) Vital Signs Vital Signs - 24 hr 04/26/25 00:59 04/26/25 01:00 04/26/25 01:09 Temperature 36.7 C Temperature Source Oral Pulse Rate 58 L 81 Pulse Rate [Apical] Pulse Rhythm Regular Pulse Strength Normal Respiratory Rate 18 Respiratory Effort / Characteristics Non-Labored Spontaneous Respiratory Depth Normal Respiratory Pattern Regular Blood Pressure 118/84 Blood Pressure [Right Arm] Blood Pressure Mean 95 Blood Pressure Mean [Right Arm] Blood Pressure Position Lying Blood Pressure Position [Right Arm] Pulse Oximetry 96 100 Oxygen Delivery Method Room Air Room Air Nasal Cannula Oxygen Flow Rate 4 Sepsis Recent Fever Within 48 Hours No Sepsis New/Unexplained Change in Mental Status N/A Sepsis Action Taken by Nursing No Action Required Oxygen Flow Rate - Titration 0 Pulse Oximetry Post Tiitration 96 04/26/25 01:49 04/26/25 01:58 04/26/25 02:24 Temperature Temperature Source Pulse Rate 84 Pulse Rate [Apical] 79 74 Pulse Rhythm Pulse Strength Respiratory Rate 18 16 20 Respiratory Effort / Characteristics Non-Labored Spontaneous Non-Labored Spontaneous Respiratory Depth Respiratory Pattern Regular Blood Pressure Blood Pressure [Right Arm] 92/54 L 131/79 Blood Pressure Mean Blood Pressure Mean [Right Arm] 66 96 Blood Pressure Position Blood Pressure Position [Right Arm] Lying Lying Pulse Oximetry 92 93 91 Oxygen Delivery Method Room Air Room Air Room Air Oxygen Flow Rate Sepsis Recent Fever Within 48 Hours Sepsis New/Unexplained Change in Mental Status Sepsis Action Taken by Nursing Oxygen Flow Rate - Titration Pulse Oximetry Post Tiitration 04/26/25 02:45 Temperature Temperature Source Pulse Rate Pulse Rate [Apical] 78 Pulse Rhythm Pulse Strength Respiratory Rate 20 Respiratory Effort / Characteristics Non-Labored Spontaneous Respiratory Depth Respiratory Pattern Blood Pressure Blood Pressure [Right Arm] 104/71 Blood Pressure Mean Blood Pressure Mean [Right Arm] 82 Blood Pressure Position Blood Pressure Position [Right Arm] Lying Pulse Oximetry 95 Oxygen Delivery Method Room Air Oxygen Flow Rate Sepsis Recent Fever Within 48 Hours Sepsis New/Unexplained Change in Mental Status Sepsis Action Taken by Nursing Oxygen Flow Rate - Titration Pulse Oximetry Post Tiitration Laboratory Data 04/26/25 02:25 04/26/25 02:25 Lab Results 04/26/25 Range/Units 02:25 WBC 9.58 (4.8-10.8) K/ul RBC 4.45 L (4.70-6.10) M/uL Hgb 10.2 L (14.0-18.0) g/dl Hct 34.4 L (42.0-52.0) % MCV 77.3 L (80.0-100.0) fL MCH 22.9 L (25.0-34.0) pg MCHC 29.7 L (32.0-36.0) g/dL RDW Std Deviation 52.7 H (36.4-46.3) fL RDW Coeff of Adelia 19.0 H (11.5-14.5) % Plt Count 186 (130-400) K/uL MPV 9.7 (9.4-12.4) fL Immature Gran % (Auto) 0.4 % Neut % (Auto) 77.6 % Lymph % (Auto) 12.7 % Tucker % (Auto) 7.4 % Eos % (Auto) 1.5 % Baso % (Auto) 0.4 % Neut # (Auto) 7.43 H (1.40-6.50) K/uL Lymph # (Auto) 1.22 (1.20-3.40) K/uL Tucker # (Auto) 0.71 H (0.11-0.59) K/uL Eos # (Auto) 0.14 (0.00-0.50) K/uL Baso # (Auto) 0.04 (0.00-0.20) K/uL Immature Gran # (Auto) 0.04 (0.01-0.20) K/uL D-Dimer 280 (0-500) ug/L FEU Sodium 142 (136-145) mmol/L Potassium 3.0 L (3.5-5.1) mmol/L Chloride 108 H (98-107) mmol/L Carbon Dioxide 29 (21-32) mmol/L Anion Gap 5 (3-11) BUN 11 (6-23) mg/dl Creatinine 0.45 L (0.6-1.4) mg/dl Est Cr Clr Drug Dosing 227.3 ml/min eGFR 129.88 BUN/Creatinine Ratio 24.4 H (10-20) Glucose 129 H (70-99(Fasting)) mg/dl Lactate 1.0 (0.4-2.0) mmol/L Calcium 8.6 (8.6-10.3) mg/dl Magnesium 1.8 (1.7-2.4) mg/dl Total Bilirubin 0.2 (0.2-1.0) mg/dl Direct Bilirubin 0.1 (0-0.2) mg/dl AST 10 L (13-39) U/L ALT 4 L (7-52) U/L Alkaline Phosphatase 91 (34-104) U/L Troponin I High Sens 5.1 (0-20) pg/ml Total Protein 6.0 (6.0-8.3) gm/dl Albumin 3.5 (3.4-5.0) gm/dl Procalcitonin 0.04 (0-0.5) ng/ml Administered Medications Potassium Chloride/Sodium Chloride (Normal Saline W/20 Meq Kcl) 20 meq in 1,000 mls @ 60 mls/hr IV .[id number] STA Stop: 04/26/25 21:24 Last Admin: 04/26/25 05:15 Dose: 60 mls/hr Documented By: Oxycodone HCl (Oxycodone Hcl Ir 5 Mg Tab (Immediate Release)) 15 mg PO Q6H PRN PRN Reason: severe pain (scale score 7-10) Stop: 05/10/25 04:38 Last Admin: 04/26/25 07:51 Dose: 15 mg Documented By: ARS Discontinued Medications Sodium Chloride (Nss) 500 mls @ 999 mls/hr IV .Q31M ONE Stop: 04/26/25 02:39 Last Infusion: 04/26/25 02:51 Dose: Infused Documented By: Admin: 04/26/25 02:10 Dose: 999 mls/hr Documented By: GERRI Magnesium Sulfate/Dextrose (Magnesium Sulfate / D5w) 1 gm in 100 mls @ 50 mls/hr IV ONE STA Stop: 04/26/25 06:45 Last Infusion: 04/26/25 07:40 Dose: Infused Documented By: Admin: 04/26/25 05:15 Dose: 50 mls/hr Documented By: NAW Levetiracetam (Levetiracetam 500 Mg/5 Ml Vial) 1,500 mg IV NOW STA Stop: 04/26/25 04:21 Last Admin: 04/26/25 04:39 Dose: 1,500 mg Documented By: EJW Potassium Chloride (Potassium Chloride Crtab 20 Meq Tabcr) 40 meq PO NOW STA Stop: 04/26/25 04:14 Last Admin: 04/26/25 05:20 Dose: 40 meq Documented By: Imaging Data Radiologist's Impression: Chest X-Ray 04/26/25 01:39 EXAM: XR chest 1V portable CLINICAL HISTORY: Sepsis TECHNIQUE: An X-ray image of the chest was obtained in the AP projection. COMPARISON: 03/21/2025 CR FINDINGS: The patient was rotated during exposure. The right-sided CV catheter is seen in place. Pulmonary Parenchyma: Haziness is seen in the right lower zone. There is no evidence of pleural effusion or pleural thickening. Heart and Mediastinum: The heart size and shape are normal. There is no mediastinal widening or masses. No hilar or mediastinal lymphadenopathy is present. Prominent bilateral hilar vascular congestive changes are noted. The aortic arch appears prominent. Bony Thorax: The bony thorax appears intact, without fractures or deformities. An intervention is seen in the cervical spine. Soft Tissues: The soft tissues overlying the chest wall are unremarkable. IMPRESSION: 1. Haziness is seen in the right lower zone; recommend clinical and laboratory correlation to rule out pulmonary infection. This is a new interval finding. 2. The right-sided CV catheter is seen in place. 3. The aortic arch appears prominent. 4. No other significant interval changes. Electronically signed by Luke Dunne 04-26-2025 05:31 AM Discharge Plan Visit Data Chief Complaint: Seizure Stated Complaint: SOB, Seizure ED Provider: Jennifer Malagon Discharge Problem: Seizure, Medication reaction, Left-sided chest pain Condition: Serious Discharge Instructions Interventions: ED Discharge Assessment Last Done: 04/26/25 05:17
[2025-04-26] MEDS: SODIUM CHLORIDE 0.9% 500 ML IV ONE (02:10)
[2025-04-26 02:47] LABS: Hematocrit (blood only) 34.4 % (42.0-52.0); Hemoglobin 10.2 g/dl (14.0-18.0); Immature Granulocytes # (auto) 0.04 K/uL (0.01-0.20); Immature Granulocytes % (auto) 0.4 %; Mean Corpuscular Hemoglobin 22.9 pg (25.0-34.0); Mean Corpuscular Volume 77.3 fL (80.0-100.0); Platelet Count 186 K/uL (130-400); RDW Standard Deviation 52.7 fL (36.4-46.3); Red Blood Count 4.45 M/uL (4.70-6.10); White Blood Count 9.58 K/ul (4.8-10.8)
[2025-04-26 03:05] LABS: Alanine Aminotransferase 4.0 U/L (7-52); Alkaline Phosphatase 91.0 U/L (34-104); Anion Gap 5.0 (3-11); Bilirubin,Total 0.2 mg/dl (0.2-1.0); Blood Urea Nitrogen 11.0 mg/dl (6-23); Calcium 8.6 mg/dl (8.6-10.3); Carbon Dioxide 29.0 mmol/L (21-32); Chloride 108.0 mmol/L (98-107); Creatinine Clr Calc Pharmacy 227.3 ml/min; Glucose 129.0 mg/dl (70-99(Fasting)); Magnesium 1.8 mg/dl (1.7-2.4); Potassium 3.0 mmol/L (3.5-5.1); Sodium 142.0 mmol/L (136-145); Total Protein 6.0 gm/dl (6.0-8.3)
--- NOTE | 2025-04-26 04:36 | History & Physical Report ---
Date of Service April 26, 2025 Assessment & Plan (1) Breakthrough seizure: Plan: Assessment and plan below following discussion of case with ED provider and reviewing patient history/pertinent normal/abnormal diagnostic test results. Breakthrough seizure ? 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 OBS Admit to medical telemetry Seizure precautions, Ativan as needed active seizures Increase maintenance Keppra dose from 1 g twice daily to 1.5 g twice daily Neurology consult Re: Breakthrough seizure Hold cefepime for now ID consult re: follow-up evaluation for left foot osteomyelitis, recommendations for possible alternative to cefepime given breakthrough seizure Judicious narcotic use given substance abuse Replace potassium Check hemoglobin A1c Nicotine patch as needed DVT prophylaxis. Eliquis Full code Patient sister requesting updates from provider. Lyn Fried, contact # [phone]. Text document was generated using Back[employer] I/[employer] voice recognition software. It may contain grammatical or spelling errors. Kindly contact undersigned for clarification of any documentation item in question. History of Present Illness Chief Complaint: Possible seizures Primary Care Provider: Dr. Aurora Rosenberg (Patient has not met her.) History obtained from patient, family, and records. 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 Recent protracted admission March 21 through April 17, 2025 for complicated UTI and left foot osteomyelitis. Urine CS grew Acinetobacter baumannii. Left foot wound cultures grew MRSA. ID recommended 6-week course vancomycin and cefepime Rx to be completed via PICC line at home (last dose May 04, 2025). Unsuccessful attempts by case management to get patient placed at SNF/[facility]. Arrangements made for patient to see new [facility] PCP at [facility] a week after discharge. Last night, noted to be very sleepy by sister during home administration of IV vancomycin and cefepime. Patient sister later heard weird sounds/grunting coming from patient. Patient noted to be shaking with eyes rolling up backwards. No tongue biting. Similar to seizure attack. Last episode during confinement at [facility] about 3 months ago. 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 Patient seizure possibly from antibiotic as per sister discussion with facility physician. Patient compliant with home meds as per sister. Patient noted to be disoriented after episode. Could not catch his breath. EMS called to patient's home. Patient currently denies headache, chest pain, SOB, cough, abdominal pain s ymptoms. Does not recall events at home. Medical History as above Surgical History : Ankle surgery, neck surgery, urologic procedures, arm surgery, appendectomy, leg abscess drainage/metatarsal surgery, cholecystectomy, wound debridement Family History : Heart disease Personal/Social history : 2 packs daily, occasional EtOH intake, disabled Allergies Allergy/AdvReac Type Severity Reaction Status Date / Time Opioids - Morphine Analogues AdvReac Severe severe Verified 04/26/25 01:40 bradycardia Home Medications Medication Instructions Recorded Confirmed Type albuterol sulfate 2.5 mg/3 mL 1.25 mg inhalation Q4H PRN 08/26/24 04/26/25 History (0.083 %) solution for nebulization Shortness Of Breath Or Wheezing baclofen 10 mg tablet 20 mg PO TID 08/26/24 04/26/25 History bisacodyl 10 mg rectal suppository 10 mg VA QAM 08/26/24 04/26/25 History budesonide-formoterol HFA 160 2 puff inhalation BID 08/26/24 04/26/25 History mcg-4.5 mcg/actuation aerosol inhaler docusate sodium 100 mg capsule 100 mg PO BID PRN Constipation 08/26/24 04/26/25 History hydroxyzine HCl 25 mg tablet 25 mg PO DAILY PRN Anxiety 08/26/24 04/26/25 History lactulose 10 gram/15 mL oral 20 g PO TID 08/26/24 04/26/25 History solution midodrine 10 mg tablet 10 mg PO TID PRN Hypotension 08/26/24 04/26/25 History oxybutynin chloride 10 mg 10 mg PO QAM 08/26/24 04/26/25 History tablet,extended release 24 hr pantoprazole 40 mg tablet,delayed 40 mg DAILY 08/26/24 04/26/25 History release sennosides 8.6 mg-docusate sodium 2 tab PO HS 08/26/24 04/26/25 History 50 mg tablet (Senexon-S) tiotropium bromide 2.5 2 puff inhalation QAM 08/26/24 04/26/25 History mcg/actuation mist for inhalation (Spiriva Respimat) acetaminophen 325 mg tablet 650 mg PO Q6 PRN Fever Or Pain 09/30/24 04/26/25 History melatonin 3 mg capsule 3 mg PO HS 09/30/24 04/26/25 History ondansetron 4 mg disintegrating 4 mg translingual Q6 PRN Nausea 09/30/24 04/26/25 History tablet apixaban 5 mg tablet (Eliquis) 5 mg PO BID 03/21/25 04/26/25 History levetiracetam 1,000 mg tablet 1,000 mg PO BID 03/21/25 04/26/25 History simethicone 80 mg chewable tablet 80 mg PO TID 03/21/25 04/26/25 History duloxetine 60 mg capsule,delayed 60 mg PO QAM #30 caps 04/17/25 04/26/25 Rx release ferrous sulfate 325 mg (65 mg 325 mg PO Q OTHER DAY #30 tabs 04/17/25 04/26/25 Rx iron) tablet nortriptyline 25 mg capsule 50 mg (2 x 25 mg) PO HS #30 caps 04/17/25 04/26/25 Rx oxycodone 15 mg tablet 15 mg PO Q6H PRN severe pain 04/17/25 04/26/25 Rx (scale score 7-10) #30 tabs pregabalin 75 mg capsule (Lyrica) 75 mg PO TID #90 caps 04/17/25 04/26/25 Rx cefepime 1 gram solution for 1.5 g IV DIRECTED 04/26/25 04/26/25 History injection heparin, porcine (PF) 100 unit/mL 500 unit IV DIRECTED 04/26/25 04/26/25 History intravenous syringe (Heparin Lock Flush (Porcine) (PF)) sodium chloride 0.9 % (flush) 10 ml IV DIRECTED 04/26/25 04/26/25 History vancomycin 2 gram intravenous 2 g IV DIRECTED 04/26/25 04/26/25 History solution Past Med/Surg History Problem List (Updated 04/26/25 @ 06:50 by Corky Yadav MD) Breakthrough seizure Iron deficiency anemia Encounter for pre-operative examination Acute osteomyelitis of metatarsal bone of left foot History of illicit drug use Spinal cord injury, cervical region Seizure disorder GERD (gastroesophageal reflux disease) COPD (chronic obstructive pulmonary disease) Bradycardia Pressure ulcer of left foot, stage 4 Stage IV pressure ulcer Hypokalemia (Acute) Quadriplegia (Acute) Hypotension (Acute) Autonomic dysreflexia Sacral decubitus ulcer (Acute) Complicated urinary tract infection (Acute Unknown) History of pulmonary embolism Chronic pain (Acute) Suprapubic catheter (Acute) Medical History Open wound of left foot Chronic osteomyelitis of sacrum Sacral decubitus ulcer, stage IV Complicated UTI (urinary tract infection) RSV (respiratory syncytial virus infection) Hypoxia Leg wound, left Leg wound, right 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 Hypoxic respiratory failure 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 Severe sepsis Chest pain Acute hypoxemic respiratory failure Change or removal of nonsurgical wound dressing Pneumonia Encephalopathy Hypotension Acute UTI Sacral wound Quadriplegia Anemia Hypomagnesemia Hypokalemia Complication, blocked suprapubic catheter Leukocytosis Acute urinary retention Hydronephrosis Constipation Abdominal pain Left sided abdominal pain Cough Pneumonia Abnormal chest CT Elevated hemidiaphragm Pneumonia involving right lung Soft tissue infection Suprapubic catheter dysfunction Aspiration pneumonia Bacteremia Acute hypotension Acute hypokalemia Abdominal pain Hypoxic respiratory failure Sepsis Acute UTI Acute UTI Abdominal pain Aspiration pneumonitis Pneumonia Paraplegia Surgical History No pertinent past surgical history Social History Smoking Status: Current every day smoker Tobacco Type: Cigarettes Cigarettes Per Day: 1ppd; Second Hand Exposure: Yes; Do You Dip or Chew Tobacco: No; Hx Alcohol Use: No Hx Substance Use: Yes Non-Prescribed Medications: Crack / Cocaine and Marijuana Preferred Language: Kinyarwanda Communication Ability: Effective Communication Ability Comment: difficulty writing Wood Type Finisher Required: No Beliefs That Will Affect Care: None Current Living Situation: Family Current Living Situation Comment: lives home with sister Feels Safe at Home: Yes Assistive Devices: Slide Board, Wheelchair and Other Review of Systems Review of Systems: As per HPI, all other systems reviewed and negative Physical Exam Physical Exam: GENERAL: Coherent, looks older than stated age, chronically ill, no respiratory distress SKIN: Pallor HEENT: Alopecia, pale palpebral conjunctivae, no ptosis, dry buccal mucosa NECK : Supple, no tenderness CHEST : Decreased breath sounds, no tenderness HEART : Bradycardic, no obvious murmurs ABDOMEN: Some distention, dried blood around suprapubic catheter site, minimal hypogastric tenderness EXTREMITIES : Minimal LE swelling/tenderness, posterior surfaces not examined NEUROLOGIC : Coherent, no facial asymmetry, MMTS BUE 3/5, BLE 0 Results & Data Results & Data Vital Signs (Past 12 Hours) Vital Signs Temp Pulse Pulse Resp BP BP Pulse Ox 04/26/25 02:45 78 20 104/71 95 04/26/25 02:24 74 20 131/79 91 04/26/25 01:58 79 16 92/54 L 93 04/26/25 01:49 84 18 92 04/26/25 01:00 100 04/26/25 00:59 36.7 C 58 L 18 118/84 96 O2 Del Method O2 Flow Rate 04/26/25 02:45 Room Air 04/26/25 02:24 Room Air 04/26/25 01:58 Room Air 04/26/25 01:49 Room Air 04/26/25 01:00 Room Air, Nasal Cannula 4 04/26/25 00:59 Room Air Laboratory Results Laboratory Results WBC 9.58 K/ul (4.8-10.8) 04/26/25 02:25 RBC 4.45 M/uL (4.70-6.10) L 04/26/25 02:25 Hgb 10.2 g/dl (14.0-18.0) L 04/26/25 02:25 Hct 34.4 % (42.0-52.0) L 04/26/25 02:25 MCV 77.3 fL (80.0-100.0) L 04/26/25 02:25 MCH 22.9 pg (25.0-34.0) L 04/26/25 02:25 MCHC 29.7 g/dL (32.0-36.0) L 04/26/25 02:25 RDW Std Deviation 52.7 fL (36.4-46.3) H 04/26/25 02:25 RDW Coeff of Adelia 19.0 % (11.5-14.5) H 04/26/25 02:25 Plt Count 186 K/uL (130-400) 04/26/25 02:25 MPV 9.7 fL (9.4-12.4) 04/26/25 02:25 Immature Gran % (Auto) 0.4 % 04/26/25 02:25 Neut % (Auto) 77.6 % 04/26/25 02:25 Lymph % (Auto) 12.7 % 04/26/25 02:25 Perry % (Auto) 7.4 % 04/26/25 02:25 Eos % (Auto) 1.5 % 04/26/25 02:25 Baso % (Auto) 0.4 % 04/26/25 02:25 Neut # (Auto) 7.43 K/uL (1.40-6.50) H 04/26/25 02:25 Lymph # (Auto) 1.22 K/uL (1.20-3.40) 04/26/25 02:25 Perry # (Auto) 0.71 K/uL (0.11-0.59) H 04/26/25 02:25 Eos # (Auto) 0.14 K/uL (0.00-0.50) 04/26/25 02:25 Baso # (Auto) 0.04 K/uL (0.00-0.20) 04/26/25 02:25 Immature Gran # (Auto) 0.04 K/uL (0.01-0.20) 04/26/25 02:25 D-Dimer 280 ug/L FEU (0-500) 04/26/25 02:25 Sodium 142 mmol/L (136-145) 04/26/25 02:25 Potassium 3.0 mmol/L (3.5-5.1) L 04/26/25 02:25 Chloride 108 mmol/L (98-107) H 04/26/25 02:25 Carbon Dioxide 29 mmol/L (21-32) 04/26/25 02:25 Anion Gap 5 (3-11) 04/26/25 02:25 BUN 11 mg/dl (6-23) 04/26/25 02:25 Creatinine 0.45 mg/dl (0.6-1.4) L 04/26/25 02:25 Est Cr Clr Drug Dosing 227.3 ml/min 04/26/25 02:25 eGFR 129.88 04/26/25 02:25 BUN/Creatinine Ratio 24.4 (10-20) H 04/26/25 02:25 Glucose 129 mg/dl (70-99(Fasting)) H 04/26/25 02:25 Lactate 1.0 mmol/L (0.4-2.0) 04/26/25 02:25 Calcium 8.6 mg/dl (8.6-10.3) 04/26/25 02:25 Magnesium 1.8 mg/dl (1.7-2.4) 04/26/25 02:25 Total Bilirubin 0.2 mg/dl (0.2-1.0) 04/26/25 02:25 Direct Bilirubin 0.1 mg/dl (0-0.2) 04/26/25 02:25 AST 10 U/L (13-39) L 04/26/25 02:25 ALT 4 U/L (7-52) L 04/26/25 02:25 Alkaline Phosphatase 91 U/L (34-104) 04/26/25 02:25 Troponin I High Sens 5.1 pg/ml (0-20) 04/26/25 02:25 Total Protein 6.0 gm/dl (6.0-8.3) 04/26/25 02:25 Albumin 3.5 gm/dl (3.4-5.0) 04/26/25 02:25 Procalcitonin 0.04 ng/ml (0-0.5) 04/26/25 02:25 Diagnostic Findings Chest x-ray as per my interpretation atelectasis EKG as per my interpretation : Rate 80, NSR, LAD, LAFB, inferior infarct, T wave abnormalities inferior leads
[2025-04-26] MEDS ORDERED: DOCUSATE SODIUM 100 MG CAP PO PRN (04:39)
[2025-04-26] MEDS ORDERED: ALBUT/IPRATROP 3MG/0.5MG NEB 3 ML VIAL NEB PRN (04:42)
[2025-04-26] MEDS ORDERED: PROMETHAZINE 6.25 MG/50.25 ML BAG IV PRN (04:43)
[2025-04-26] MEDS ORDERED: MELATONIN 3 MG TAB PO PRN (04:47)
[2025-04-26] MEDS ORDERED: ACETAMINOPHEN 325 MG TAB PO PRN (04:49)
[2025-04-26] MEDS: NSS + 20MEQ KCL 20 MEQ/1,000 ML BAG IV STA (05:15)
[2025-04-26] MEDS: MAGNESIUM SULFATE / D5W 1 GM/100 ML BAG IV STA (05:15)
[2025-04-26] MEDS: POTASSIUM CHLORIDE CRTAB 20 MEQ TABCR PO STA (05:20)
--- NOTE | 2025-04-26 05:32 | XRay Report ---
EXAM: XR chest 1V portable CLINICAL HISTORY: Sepsis TECHNIQUE: An X-ray image of the chest was obtained in the AP projection. COMPARISON: 03/21/2025 CR FINDINGS: The patient was rotated during exposure. The right-sided CV catheter is seen in place. Pulmonary Parenchyma: Haziness is seen in the right lower zone. There is no evidence of pleural effusion or pleural thickening. Heart and Mediastinum: The heart size and shape are normal. There is no mediastinal widening or masses. No hilar or mediastinal lymphadenopathy is present. Prominent bilateral hilar vascular congestive changes are noted. The aortic arch appears prominent. Bony Thorax: The bony thorax appears intact, without fractures or deformities. An intervention is seen in the cervical spine. Soft Tissues: The soft tissues overlying the chest wall are unremarkable. IMPRESSION: 1. Haziness is seen in the right lower zone; recommend clinical and laboratory correlation to rule out pulmonary infection. This is a new interval finding. 2. The right-sided CV catheter is seen in place. 3. The aortic arch appears prominent. 4. No other significant interval changes. Electronically signed by Luke Dunne 04-26-2025 05:31 AM
[2025-04-26] MEDS ORDERED: VANCOMYCIN CONSULT ACTIVE PRN (06:00)
--- NOTE | 2025-04-26 08:12 | Pharmacy Report ---
Pharmacy PK ABX Note - Date of Service April 26, 2025 - Assessment and Plan Assessment 49 year old M receiving vancomycin for treatment of osteomyelitis. Pertinent microbiologic data includes: 03/21/2025 L foot culture growing MRSA. Recently discharged on 04/17/2025 on vancomycin outpatient therapy. Per last pharmacy note on 04/16/2025, 1250mg Q12H was therapeutic dose. Plan Vancomycin * Maintenance dose: continue 1250 mg IV every 12 hours * Regimen is predicted to slight subtherapeutic per [facility]; however, given that patient was therapeutic on 1250mg Q12H on discharge - will continue with previous regimen and obtain level tomorrow for further dose adjustments * Random level ordered for: 04/27/2025 @0444 Pharmacy will continue to follow and will adjust dose/frequency as necessary. Thank you. Pharmacy has transitioned to AUC monitoring for vancomycin. AUC/BEATRIZ is the preferred PK/PD target and is associated with decreased risk of nephrotoxicity compared to traditional trough targets.
[2025-04-26] MEDS: VANCOMYCIN HCL 1,250 MG in SODIUM CHLORIDE 0.9% 250 ML IV SCH (08:33)
--- NOTE | 2025-04-26 09:27 | Electrocardiogram Report ---
Test Reason : Blood Pressure : */* mmHG Vent. Rate : 78 BPM Atrial Rate : 78 BPM P-R Int : 176 ms QRS Dur : 84 ms QT Int : 410 ms P-R-T Axes : -17 -12 -18 degrees QTcB Int : 467 ms Poor data quality, interpretation may be adversely affected Normal sinus rhythm Inferior infarct (cited on or before 21-Mar-2025) Abnormal ECG When compared with ECG of 21-Mar-2025 03:44, No significant change Confirmed by Thomas Goode ([id number]) on 04/26/2025 9:26:54 AM Referred By: REFERRED SELF Confirmed By: Thomas Goode
[2025-04-26] MEDS: FLUTICASONE/VILANTEROL 100/25MCG 14 PUFFS/INHALER INH SCH (09:40)
[2025-04-26] MEDS: LACTULOSE SYRUP 20 GM/30 ML UDC PO SCH (09:40)
[2025-04-26] MEDS: UMECLIDINIUM BROMIDE 62.5MCG/BLISTER 7 PUFFS/INHALER INH SCH (09:40)
[2025-04-26] MEDS: APIXABAN 5 MG TABLET PO SCH (09:41)
[2025-04-26] MEDS: BACLOFEN 20 MG TAB PO SCH (09:41)
[2025-04-26] MEDS: OXYBUTYNIN CHLORIDE XL 5 MG TABCR PO SCH (09:41)
[2025-04-26] MEDS: PREGABALIN 75 MG CAP PO SCH (09:41)
--- NOTE | 2025-04-26 13:34 | Infectious Disease Consult ---
Date of Service April 26, 2025 Telehealth Information I performed this visit using a real-time telehealth connection between my location and the patients location ([facility]). After connecting through interactive tele-video, patient was identified by name and date of and/or wristband check.Patient (or authorized healthcare retail representative) was informed that this was a telemedicine visit and it was being conducted confidentially over secure lines. My office door was closed and no one else was present in the room with me.Patient (or authorized healthcare retail representative) provided consent to proceed with the visit, expressed an understanding of privacy and security of the telemedicine visit, and gave permission to have a hospital retail representative in the room in order to assist with the visit and to conduct portions of the visit, as needed. I informed the patient (or authorized healthcare retail representative) that I reviewed their record and presented the opportunity for them to ask any questions regarding the visit today. The patient agreed to participate. Assessment & Plan (1) Drug-induced seizure: (2) Left-sided chest pain: (3) Medication reaction: (4) Seizure: (5) Breakthrough seizure: (6) Iron deficiency anemia: (7) Encounter for pre-operative examination: (8) Acute osteomyelitis of metatarsal bone of left foot: Plan Assessment: 49 year old male with PMH significant for paraplegia, autonomic dysreflexia, neurogenic bladder with suprapubic cath, history of PE on anticoagulation, chronic sacral ulcer with history of osteomyelitis and cellulitis and multiple debridements, history of complicated UTI, history of septic shock, anxiety disorder, COPD, history of polysubstance abuse, chronic pain, seizure disorder, history of leaving AMA who presented to the ED on 04/22/2025 with back pain and seizure activity. Plan: - Agree with stopping Cefepime IV. Wounds look wonderful in picture taken by wound care. Much improved. Recommend continuing Vancomycin IV alone until end date of 05/04/2025. - we will sign off, no need for ID clinic appointment as pt's wound looks great. Please call with issues, concerns, or questions. History of Present Illness History of Present Illness Reason for consult: osteomyelitis follow up 49 year old male with PMH significant for paraplegia, autonomic dysreflexia, rianna rogenic bladder with suprapubic cath, history of PE on anticoagulation, chronic sacral ulcer with history of osteomyelitis and cellulitis and multiple debridements, history of complicated UTI, history of septic shock, anxiety disorder, COPD, history of polysubstance abuse, chronic pain, seizure disorder, history of leaving AMA who presented to the ED on 04/26/2025 with back pain and seizure activity. Pt was previously seen on 03/21/2025 and diagnosed with sacral OM and left foot. Pt was d/c'd on Cefepime and Vancomycin IV with end date of 05/04/2025. On admission today, pt's wound looks great via picture in Medical Chart. Cefepime stopped due to concern for cause of seizure activity. ID consulted for evaluation and management. Allergies Allergy/AdvReac Type Severity Reaction Status Date / Time Opioids - Morphine Analogues AdvReac Severe severe Verified 04/26/25 01:40 bradycardia Home Medications Medication Instructions Recorded Confirmed Type albuterol sulfate 2.5 mg/3 mL 1.25 mg inhalation Q4H PRN 08/26/24 04/26/25 History (0.083 %) solution for nebulization Shortness Of Breath Or Wheezing baclofen 10 mg tablet 20 mg PO TID 08/26/24 04/26/25 History bisacodyl 10 mg rectal suppository 10 mg PA QAM 08/26/24 04/26/25 History budesonide-formoterol HFA 160 2 puff inhalation BID 08/26/24 04/26/25 History mcg-4.5 mcg/actuation aerosol inhaler docusate sodium 100 mg capsule 100 mg PO BID PRN Constipation 08/26/24 04/26/25 History hydroxyzine HCl 25 mg tablet 25 mg PO DAILY PRN Anxiety 08/26/24 04/26/25 History lactulose 10 gram/15 mL oral 20 g PO TID 08/26/24 04/26/25 History solution midodrine 10 mg tablet 10 mg PO TID PRN Hypotension 08/26/24 04/26/25 History oxybutynin chloride 10 mg 10 mg PO QAM 08/26/24 04/26/25 History tablet,extended release 24 hr pantoprazole 40 mg tablet,delayed 40 mg DAILY 08/26/24 04/26/25 History release sennosides 8.6 mg-docusate sodium 2 tab PO HS 08/26/24 04/26/25 History 50 mg tablet (Senexon-S) tiotropium bromide 2.5 2 puff inhalation QAM 08/26/24 04/26/25 History mcg/actuation mist for inhalation (Spiriva Respimat) acetaminophen 325 mg tablet 650 mg PO Q6 PRN Fever Or Pain 09/30/24 04/26/25 History melatonin 3 mg capsule 3 mg PO HS 09/30/24 04/26/25 History ondansetron 4 mg disintegrating 4 mg translingual Q6 PRN Nausea 09/30/24 04/26/25 History tablet apixaban 5 mg tablet (Eliquis) 5 mg PO BID 03/21/25 04/26/25 History levetiracetam 1,000 mg tablet 1,000 mg PO BID 03/21/25 04/26/25 History simethicone 80 mg chewable tablet 80 mg PO TID 03/21/25 04/26/25 History duloxetine 60 mg capsule,delayed 60 mg PO QAM #30 caps 04/17/25 04/26/25 Rx release ferrous sulfate 325 mg (65 mg 325 mg PO Q OTHER DAY #30 tabs 04/17/25 04/26/25 Rx iron) tablet nortriptyline 25 mg capsule 50 mg (2 x 25 mg) PO HS #30 caps 04/17/25 04/26/25 Rx oxycodone 15 mg tablet 15 mg PO Q6H PRN severe pain 04/17/25 04/26/25 Rx (scale score 7-10) #30 tabs pregabalin 75 mg capsule (Lyrica) 75 mg PO TID #90 caps 04/17/25 04/26/25 Rx cefepime 1 gram solution for 1.5 g IV DIRECTED 04/26/25 04/26/25 History injection heparin, porcine (PF) 100 unit/mL 500 unit IV DIRECTED 04/26/25 04/26/25 History intravenous syringe (Heparin Lock Flush (Porcine) (PF)) sodium chloride 0.9 % (flush) 10 ml IV DIRECTED 04/26/25 04/26/25 History vancomycin 2 gram intravenous 2 g IV DIRECTED 04/26/25 04/26/25 History solution Patient History Medical History Open wound of left foot Chronic osteomyelitis of sacrum Sacral decubitus ulcer, stage IV Complicated UTI (urinary tract infection) RSV (respiratory syncytial virus infection) Hypoxia Leg wound, left Leg wound, right 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 Hypoxic respiratory failure 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 Severe sepsis Chest pain Acute hypoxemic respiratory failure Change or removal of nonsurgical wound dressing Pneumonia Encephalopathy Hypotension Acute UTI Sacral wound Quadriplegia Anemia Hypomagnesemia Hypokalemia Complication, blocked suprapubic catheter Leukocytosis Acute urinary retention Hydronephrosis Constipation Abdominal pain Left sided abdominal pain Cough Pneumonia Abnormal chest CT Elevated hemidiaphragm Pneumonia involving right lung Soft tissue infection Suprapubic catheter dysfunction Aspiration pneumonia Bacteremia Acute hypotension Acute hypokalemia Abdominal pain Hypoxic respiratory failure Sepsis Acute UTI Acute UTI Abdominal pain Aspiration pneumonitis Pneumonia Paraplegia Surgical History No pertinent past surgical history Social History Smoking Status: Current every day smoker Tobacco Type: Cigarettes Cigarettes Per Day: 1ppd; Second Hand Exposure: Yes; Do You Dip or Chew Tobacco: No; Hx Alcohol Use: No Hx Substance Use: Yes Non-Prescribed Medications: Crack / Cocaine and Marijuana Preferred Language: Kiswahili Communication Ability: Effective Communication Ability Comment: difficulty writing 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 Required: No Beliefs That Will Affect Care: None Current Living Situation: Family Current Living Situation Comment: lives home with sister Feels Safe at Home: Yes Assistive Devices: Slide Board, Wheelchair and Other Review of Systems ROS - back pain Physical Exam NA Results & Data Vital Signs (Past 12 Hours) Vital Signs Temp Pulse Pulse Resp BP BP Pulse Ox 04/26/25 12:26 63 13 97 04/26/25 11:00 36.6 C 64 16 106/73 96 04/26/25 08:15 57 L 20 04/26/25 07:09 48 L 18 95 04/26/25 07:01 172/107 H 04/26/25 06:59 49 L 04/26/25 06:54 51 L 17 96 04/26/25 06:30 154/103 H 04/26/25 06:24 58 L 22 94 04/26/25 06:06 65 17 94 04/26/25 06:00 133/97 04/26/25 05:51 75 19 91 04/26/25 05:30 152/101 H 04/26/25 05:23 57 L 17 121/92 94 04/26/25 05:15 121/92 04/26/25 05:15 77 22 93 04/26/25 05:06 74 17 93 04/26/25 04:45 124/92 04/26/25 04:30 61 22 96 04/26/25 04:30 146/94 H 04/26/25 04:15 68 23 94 04/26/25 04:15 137/91 04/26/25 04:00 59 L 18 94 04/26/25 04:00 131/86 04/26/25 03:30 121/86 04/26/25 03:21 73 18 96 04/26/25 03:15 114/73 04/26/25 03:06 77 18 96 04/26/25 02:57 78 19 96 04/26/25 02:57 104/71 04/26/25 02:45 78 20 104/71 95 04/26/25 02:33 131/79 04/26/25 02:24 74 20 131/79 91 04/26/25 02:18 76 23 94 04/26/25 02:03 65 19 95 04/26/25 02:00 103/61 04/26/25 01:58 79 16 92/54 L 93 04/26/25 01:49 84 18 92 O2 Del Method 04/26/25 12:26 Room Air 04/26/25 11:00 Room Air 04/26/25 08:15 04/26/25 07:09 04/26/25 07:01 04/26/25 06:59 04/26/25 06:54 04/26/25 06:30 04/26/25 06:24 04/26/25 06:06 04/26/25 06:00 04/26/25 05:51 04/26/25 05:30 04/26/25 05:23 Room Air 04/26/25 05:15 04/26/25 05:15 04/26/25 05:06 04/26/25 04:45 04/26/25 04:30 04/26/25 04:30 04/26/25 04:15 04/26/25 04:15 04/26/25 04:00 04/26/25 04:00 04/26/25 03:30 04/26/25 03:21 04/26/25 03:15 04/26/25 03:06 04/26/25 02:57 04/26/25 02:57 04/26/25 02:45 Room Air 04/26/25 02:33 04/26/25 02:24 Room Air 04/26/25 02:18 04/26/25 02:03 04/26/25 02:00 04/26/25 01:58 Room Air 04/26/25 01:49 Room Air Laboratory Results 04/26/25 02:25 Aerobic Blood Culture - Pending Blood Anaerobic Blood Culture - Pending 04/26/25 02:25 Aerobic Blood Culture - Pending Blood Anaerobic Blood Culture - Pending 04/26/25 04/26/25 04/26/25 14:33 06:32 02:25 WBC 9.58 RBC 4.45 L Hgb 10.2 L Hct 34.4 L MCV 77.3 L MCH 22.9 L MCHC 29.7 L RDW Std Deviation 52.7 H RDW Coeff of [place] 19.0 H Plt Count 186 MPV 9.7 Immature Gran % (Auto) 0.4 Neut % (Auto) 77.6 Lymph % (Auto) 12.7 [place] % (Auto) 7.4 Eos % (Auto) 1.5 Baso % (Auto) 0.4 Neut # (Auto) 7.43 H Lymph # (Auto) 1.22 [place] # (Auto) 0.71 H Eos # (Auto) 0.14 Baso # (Auto) 0.04 Immature Gran # (Auto) 0.04 D-Dimer 280 Sodium 142 Potassium 3.0 L Chloride 108 H Carbon Dioxide 29 Anion Gap 5 BUN 11 Creatinine 0.45 L Est Cr Clr Drug Dosing 227.3 eGFR 129.88 BUN/Creatinine Ratio 24.4 H Glucose 129 H Lactate 1.0 Calcium 8.6 Magnesium 1.8 Total Bilirubin 0.2 Direct Bilirubin 0.1 AST 10 L ALT 4 L Alkaline Phosphatase 91 Troponin I High Sens 5.1 Total Protein 6.0 Albumin 3.5 Procalcitonin 0.04 Random Vancomycin 12.9 Urine Opiates Screen Pos H Ur Methadone, Qual Neg Urine Fentanyl Screen Neg Urine Barbiturates Neg Ur Phencyclidine (PCP) Neg U Amphetamin/Meth Scrn Neg MDMA (Ecstasy) Screen Neg U Benzodiazepines Scrn Pos H Ur Cocaine Metabolite Neg U Marijuana (THC) Screen Pos H Diagnostic Findings Chest X-Ray 04/26/25 01:39 EXAM: XR chest 1V portable CLINICAL HISTORY: Sepsis TECHNIQUE: An X-ray image of the chest was obtained in the AP projection. COMPARISON: 03/21/2025 CR FINDINGS: The patient was rotated during exposure. The right-sided CV catheter is seen in place. Pulmonary Parenchyma: Haziness is seen in the right lower zone. There is no evidence of pleural effusion or pleural thickening. Heart and Mediastinum: The heart size and shape are normal. There is no mediastinal widening or masses. No hilar or mediastinal lymphadenopathy is present. Prominent bilateral hilar vascular congestive changes are noted. The aortic arch appears prominent. Bony Thorax: The bony thorax appears intact, without fractures or deformities. An intervention is seen in the cervical spine. Soft Tissues: The soft tissues overlying the chest wall are unremarkable. IMPRESSION: 1. Haziness is seen in the right lower zone; recommend clinical and laboratory correlation to rule out pulmonary infection. This is a new interval finding. 2. The right-sided CV catheter is seen in place. 3. The aortic arch appears prominent. 4. No other significant interval changes. Electronically signed by Luke Dunne 04-26-2025 05:31 AM Medications Administered Home Medications Medication Instructions Recorded Confirmed Last Taken albuterol sulfate 2.5 mg/3 mL 1.25 mg inhalation Q4H PRN 08/26/24 04/26/25 03/20/25 (0.083 %) solution for nebulization Shortness Of Breath Or Wheezing baclofen 10 mg tablet 20 mg PO TID 08/26/24 04/26/25 04/25/25 bisacodyl 10 mg rectal suppository 10 mg PA QAM 08/26/24 04/26/25 04/25/25 budesonide-formoterol HFA 160 2 puff inhalation BID 08/26/24 04/26/25 04/25/25 mcg-4.5 mcg/actuation aerosol inhaler docusate sodium 100 mg capsule 100 mg PO BID PRN Constipation 08/26/24 04/26/25 03/20/25 hydroxyzine HCl 25 mg tablet 25 mg PO DAILY PRN Anxiety 08/26/24 04/26/25 03/20/25 lactulose 10 gram/15 mL oral 20 g PO TID 08/26/24 04/26/25 04/25/25 solution midodrine 10 mg tablet 10 mg PO TID PRN Hypotension 08/26/24 04/26/25 03/20/25 oxybutynin chloride 10 mg 10 mg PO QAM 08/26/24 04/26/25 04/25/25 tablet,extended release 24 hr pantoprazole 40 mg tablet,delayed 40 mg DAILY 08/26/24 04/26/25 04/25/25 release sennosides 8.6 mg-docusate sodium 2 tab PO HS 08/26/24 04/26/25 04/25/25 50 mg tablet (Senexon-S) tiotropium bromide 2.5 2 puff inhalation QAM 08/26/24 04/26/25 04/25/25 mcg/actuation mist for inhalation (Spiriva Respimat) acetaminophen 325 mg tablet 650 mg PO Q6 PRN Fever Or Pain 09/30/24 04/26/25 03/20/25 melatonin 3 mg capsule 3 mg PO HS 09/30/24 04/26/25 03/20/25 ondansetron 4 mg disintegrating 4 mg translingual Q6 PRN Nausea 09/30/24 04/26/25 03/20/25 tablet apixaban 5 mg tablet (Eliquis) 5 mg PO BID 03/21/25 04/26/25 04/25/25 levetiracetam 1,000 mg tablet 1,000 mg PO BID 03/21/25 04/26/25 04/25/25 simethicone 80 mg chewable tablet 80 mg PO TID 03/21/25 04/26/25 04/25/25 duloxetine 60 mg capsule,delayed 60 mg PO QAM #30 caps 04/17/25 04/26/25 04/25/25 release ferrous sulfate 325 mg (65 mg 325 mg PO Q OTHER DAY #30 tabs 04/17/25 04/26/25 Unknown iron) tablet nortriptyline 25 mg capsule 50 mg (2 x 25 mg) PO HS #30 caps 04/17/25 04/26/25 04/25/25 oxycodone 15 mg tablet 15 mg PO Q6H PRN severe pain 04/17/25 04/26/25 Unknown (scale score 7-10) #30 tabs pregabalin 75 mg capsule (Lyrica) 75 mg PO TID #90 caps 04/17/25 04/26/25 04/25/25 cefepime 1 gram solution for 1.5 g IV DIRECTED 04/26/25 04/26/25 Unknown injection heparin, porcine (PF) 100 unit/mL 500 unit IV DIRECTED 04/26/25 04/26/25 Unknown intravenous syringe (Heparin Lock Flush (Porcine) (PF)) sodium chloride 0.9 % (flush) 10 ml IV DIRECTED 04/26/25 04/26/25 Unknown vancomycin 2 gram intravenous 2 g IV DIRECTED 04/26/25 04/26/25 Unknown solution Active Medications Generic Name Dose Route Start Last Admin Trade Name Freq PRN Reason Stop Dose Admin Apixaban 5 mg 04/26/25 09:00 04/26/25 09:41 Apixaban 5 Mg Tablet PO 05/26/25 08:59 5 mg BID ROSALES Administration Baclofen 20 mg 04/26/25 09:00 04/26/25 13:54 Baclofen 20 Mg Tab PO 05/26/25 08:59 20 mg TID ROSALES Administration Bisacodyl 10 mg 04/26/25 09:00 04/26/25 09:40 Bisacodyl 10 Mg Supp PA 05/26/25 08:59 10 mg QAM ROSALES Administration Duloxetine HCl 60 mg 04/26/25 09:00 04/26/25 09:41 Duloxetine Hcl 60 Mg Cap PO 05/26/25 08:59 60 mg QAM ROSALES Administration Fluticasone/Vilanterol 1 puffs 04/26/25 09:00 04/26/25 09:40 Fluticasone/Vilanterol 100/25mcg 14 Puffs/Inhaler INH 05/26/25 08:59 1 puffs DAILY ROSALES Administration Protocol Potassium Chloride/Sodium Chloride 20 meq in 1,000 mls @ 60 mls/hr 04/26/25 04:45 04/26/25 05:15 Normal Saline W/20 Meq Kcl IV 04/26/25 21:24 60 mls/hr .[id number] STA Administration Vancomycin HCl 1,250 mg/ 275 mls @ 200 mls/hr 04/26/25 08:00 04/26/25 10:25 Sodium Chloride IV 06/07/25 07:59 Infused Q12H ROSALES Infusion Lactulose 20 gm 04/26/25 09:00 04/26/25 13:54 Lactulose Syrup 20 Gm/30 Ml Udc PO 05/26/25 08:59 20 gm TID ROSALES Administration Oxybutynin Chloride 10 mg 04/26/25 09:00 04/26/25 09:41 Oxybutynin Chloride Xl 5 Mg Tabcr PO 05/26/25 08:59 10 mg QAM ROSALES Administration Pantoprazole Sodium 40 mg 04/26/25 09:00 04/26/25 09:41 Pantoprazole 40 Mg Tab PO 05/26/25 08:59 40 mg DAILY ROSALES Administration Pregabalin 75 mg 04/26/25 09:00 04/26/25 13:54 Pregabalin 75 Mg Cap PO 05/26/25 08:59 75 mg TID ROSALES Administration Umeclidinium [place] 1 puffs 04/26/25 09:00 04/26/25 09:40 Umeclidinium [place] 62.5mcg/Blister 7 Puffs/Inhaler INH 05/26/25 08:59 1 puffs QAM ROSALES Administration
[2025-04-26] MEDS ORDERED: ACETAMINOPHEN 500 MG TAB PO PRN (14:36)
--- NOTE | 2025-04-26 14:43 | Hospitalist Progress Note ---
Date of Service April 26, 2025 Assessment & Plan (1) Breakthrough seizure: (2) Drug-induced seizure: (3) Seizure disorder: (4) Acute osteomyelitis of metatarsal bone of left foot: (5) COPD (chronic obstructive pulmonary disease): (6) Stage IV pressure ulcer: (7) Autonomic dysreflexia: (8) Chronic osteomyelitis of sacrum: (9) Sacral decubitus ulcer, stage IV: Plan Patient 49-year-old gentleman with known seizure disorder presents with a breakthrough seizure most likely due to cefepime lowering his seizure threshold. Patient on IV cefepime for osteomyelitis and bacteremia. Cefepime was discontinued, no further seizures Continue his usual antiseizure medication Communication with infectious disease, reviewed patient's cultures and presentation, recommending discontinuing cefepime indefinitely and continuing his course of vancomycin Communication with case management to help coordinate discharge and resuming home IV vancomycin Continue other outpatient medications and pain control All pressure wounds/sacral ulcer were present on admission Admission and Anticipated Discharge Date Admission Date: April 26, 2025 Subjective No further seizures since in the hospital. Complaining of uncontrolled pain from sacral wound Physical Exam Physical Exam: Constitutional: Alert, nontoxic HEENT: Mucous membranes moist. Lungs: No acute distress CV: regular Abdomen: Soft, nontender, nondistended, suprapubic cath Extremities: No significant edema Neuro: Chronic deficits Psych: Cooperative, normal mood Results & Data Results & Data Vital Signs (Past 12 Hours) Vital Signs Temp Pulse Pulse Resp BP BP Pulse Ox 04/26/25 13:53 64 16 154/100 H 97 04/26/25 12:26 63 13 97 04/26/25 11:00 36.6 C 64 16 106/73 96 04/26/25 08:15 57 L 20 04/26/25 07:09 48 L 18 95 04/26/25 07:01 172/107 H 04/26/25 06:59 49 L 04/26/25 06:54 51 L 17 96 04/26/25 06:30 154/103 H 04/26/25 06:24 58 L 22 94 04/26/25 06:06 65 17 94 04/26/25 06:00 133/97 04/26/25 05:51 75 19 91 04/26/25 05:30 152/101 H 04/26/25 05:23 57 L 17 121/92 94 04/26/25 05:15 121/92 04/26/25 05:15 77 22 93 04/26/25 05:06 74 17 93 04/26/25 04:45 124/92 04/26/25 04:30 61 22 96 04/26/25 04:30 146/94 H 04/26/25 04:15 68 23 94 04/26/25 04:15 137/91 04/26/25 04:00 59 L 18 94 04/26/25 04:00 131/86 04/26/25 03:30 121/86 04/26/25 03:21 73 18 96 04/26/25 03:15 114/73 04/26/25 03:06 77 18 96 04/26/25 02:57 78 19 96 04/26/25 02:57 104/71 04/26/25 02:45 78 20 104/71 95 O2 Del Method 04/26/25 13:53 Room Air 04/26/25 12:26 Room Air 04/26/25 11:00 Room Air 04/26/25 08:15 04/26/25 07:09 04/26/25 07:01 04/26/25 06:59 04/26/25 06:54 04/26/25 06:30 04/26/25 06:24 04/26/25 06:06 04/26/25 06:00 04/26/25 05:51 04/26/25 05:30 04/26/25 05:23 Room Air 04/26/25 05:15 04/26/25 05:15 04/26/25 05:06 04/26/25 04:45 04/26/25 04:30 04/26/25 04:30 04/26/25 04:15 04/26/25 04:15 04/26/25 04:00 04/26/25 04:00 04/26/25 03:30 04/26/25 03:21 04/26/25 03:15 04/26/25 03:06 04/26/25 02:57 04/26/25 02:57 04/26/25 02:45 Room Air Diagnostic Findings Reviewed imaging, laboratory and diagnostic studies. Pertinent findings as below. (5) COPD (chronic obstructive pulmonary disease) COPD type: unspecified COPD Qualified Code(s): J44.9 - Chronic obstructive pulmonary disease, unspecified (6) Stage IV pressure ulcer Pressure injury location: foot, unspecified location Laterality: left Qualified Code(s): L89.894 - Pressure ulcer of other site, stage 4
[2025-04-26 15:36] LABS: Amphetamines+Metham, Urine Neg (Neg); MDMA (Ecstacy), Urine Neg (Neg); Marijuana, Urine Pos (Neg)
[2025-04-26] MEDS: DOCUSATE SODIUM/SENNA 50/8.6MG TAB PO SCH (21:37)
[2025-04-26] MEDS: NORTRIPTYLINE HCL 25 MG CAP PO SCH (22:15)
[2025-04-26] MEDS: levETIRAcetam 500 MG TAB PO SCH (22:17)
[2025-04-27 06:38] LABS: Hematocrit (blood only) 32.1 % (42.0-52.0); Hemoglobin 9.6 g/dl (14.0-18.0); Immature Granulocytes # (auto) 0.01 K/uL (0.01-0.20); Immature Granulocytes % (auto) 0.1 %; Mean Corpuscular Hemoglobin 23.1 pg (25.0-34.0); Mean Corpuscular Volume 77.3 fL (80.0-100.0); Platelet Count 187 K/uL (130-400); RDW Standard Deviation 51.8 fL (36.4-46.3); Red Blood Count 4.15 M/uL (4.70-6.10); White Blood Count 6.81 K/ul (4.8-10.8)
[2025-04-27 06:54] LABS: Anion Gap 3.0 (3-11); Blood Urea Nitrogen 10.0 mg/dl (6-23); Calcium 8.6 mg/dl (8.6-10.3); Carbon Dioxide 29.0 mmol/L (21-32); Chloride 106.0 mmol/L (98-107); Creatinine Clr Calc Pharmacy 193.0 ml/min; Glucose 94.0 mg/dl (70-99(Fasting)); Potassium 3.7 mmol/L (3.5-5.1); Sodium 138.0 mmol/L (136-145)
[2025-04-27 08:21] VITALS: PULSE 65; RESP 18
[2025-04-27 08:22] VITALS: BP 132/86; TEMP 98.1; O2SAT 98
[2025-04-27] MEDS: VANCOMYCIN LEVEL ONE (09:11)
[2025-04-27] MEDS: FERROUS SULFATE 325 MG TAB PO SCH (09:14)
--- NOTE | 2025-04-27 09:29 | Pharmacy Report ---
Pharmacy PK ABX Note - Date of Service April 27, 2025 - Assessment and Plan Assessment 49 year old M receiving vancomycin for treatment of osteomyelitis. Pertinent microbiologic data includes: 03/21/2025 L foot culture growing MRSA. Recently discharged on 04/17/2025 on vancomycin outpatient therapy. Plan Vancomycin * Random level this AM was 18.0 - current regimen is predicted to be therapeutic * Maintenance dose: continue 1250 mg IV every 12 hours * Random level ordered for: 04/30/2025 @0444 * End date 05/04/2025 per ID Pharmacy will continue to follow and will adjust dose/frequency as necessary. Thank you. Pharmacy has transitioned to AUC monitoring for vancomycin. AUC/BEATRIZ is the preferred PK/PD target and is associated with decreased risk of nephrotoxicity compared to traditional trough targets.
--- NOTE | 2025-04-27 10:19 | Discharge Summary ---
Discharge Summary Date of Service April 27, 2025 Principal Dx & Hospital Course #1 = Principal Diagnosis (1) Breakthrough seizure: (2) Drug-induced seizure: (3) Seizure disorder: (4) Acute osteomyelitis of metatarsal bone of left foot: (5) COPD (chronic obstructive pulmonary disease): (6) Stage IV pressure ulcer: (7) Autonomic dysreflexia: (8) Chronic osteomyelitis of sacrum: (9) Sacral decubitus ulcer, stage IV: Plan Patient 49-year-old gentleman essentially bedbound, recent hospitalization for osteomyelitis. He has been at home receiving IV cefepime and vancomycin. Patient has known seizure disorder and on antiepileptic medication. Presented to the emergency room with breakthrough seizure reported by family. And in the emergency room his workup was unremarkable. Patient is on cefepime, this is known to cause significant encephalopathy and decreased seizure threshold and cause seizures. This is most likely cause of the patient's breakthrough seizure. Cefepime was discontinued. He is continued on his IV vancomycin. Infectious disease consultation was obtained. They reviewed patient's overall condition and cultures. The patient is doing extremely well. His wounds are healing and being well taken care of. Infectious disease recommended continuing the vancomycin but could discontinue the cefepime indefinitely. Patient was continue to be monitored throughout the rest of his hospitalization. There is no further seizure activity. Other laboratory studies were stable. Case management was involved in his care. They ensured and that he could resume his IV antibiotics at home. He did not supply was delivered should be enough to get him through the weekend. His pain was controlled with his usual pain medications. He was given a new prescription for the oxycodone due to the fact that he had not been able to follow-up with his providers. I did review previous pain management consultation and progress notes from previous hospitalization. They had recommended the oxycodone as needed. He is on the Lyrica and nortriptyline as they recommended as well. He missed appointment due to this hospitalization. He be discharged home to continue the IV vancomycin at home as initially planned. Attempted to contact family members multiple times, no answer as of yet. Will continue to plan for discharge today Notes For Next Care Provider Continue to monitor laboratory studies as previous for the vancomycin Continue wound care Continue home health services Continue to assess's need for pain medication Medication Changes From Visit Cefepime discontinued Admission HPI Per Admitting Provider History obtained from patient, family, and records. 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 Recent protracted admission March 21 through April 17, 2025 for complicated UTI and left foot osteomyelitis. Urine CS grew Acinetobacter baumannii. Left foot wound cultures grew MRSA. ID recommended 6-week course vancomycin and cefepime Rx to be completed via PICC line at home (last dose May 04, 2025). Unsuccessful attempts by case management to get patient placed at SNF/[facility]. Arrangements made for patient to see new [facility] PCP at [facility] a week after discharge. Last night, noted to be very sleepy by sister during home administration of IV vancomycin and cefepime. Patient sister later heard weird sounds/grunting coming from patient. Patient noted to be shaking with eyes rolling up backwards. No tongue biting. Similar to seizure attack. Last episode during confinement at [facility] about 3 months ago. 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 Patient seizure possibly from antibiotic as per sister discussion with facility physician. Patient compliant with home meds as per sister. Patient noted to be disoriented after episode. Could not catch his breath. EMS called to patient's home. Patient currently denies headache, chest pain, SOB, cough, abdominal pain symptoms. Does not recall events at home. Medical History as above Surgical History : Ankle surgery, neck surgery, urologic procedures, arm surgery, appendectomy, leg abscess drainage/metatarsal surgery, cholecystectomy, wound debridement Family History : Heart disease Personal/Social history : 2 packs daily, occasional EtOH intake, disabled Admission Exam Per Admitting Provider See H&P Discharge Exam Constitutional: Alert, nontoxic, interactive HEENT: Mucous membranes moist. Lungs: Clear to auscultation, decreased, no wheezes rales or rhonchi CV: S1-S2, regular Abdomen: Soft, nontender, nondistended, suprapubic catheter Extremities: No significant edema Neuro: Baseline deficits/plegia Psych: Cooperative, normal mood Updated Medication List Medication Instructions Recorded Confirmed Type albuterol sulfate 2.5 mg/3 mL 1.25 mg inhalation Q4H PRN 08/26/24 04/26/25 History (0.083 %) solution for nebulization Shortness Of Breath Or Wheezing baclofen 10 mg tablet 20 mg PO TID 08/26/24 04/26/25 History bisacodyl 10 mg rectal suppository 10 mg NH QAM 08/26/24 04/26/25 History budesonide-formoterol HFA 160 2 puff inhalation BID 08/26/24 04/26/25 History mcg-4.5 mcg/actuation aerosol inhaler docusate sodium 100 mg capsule 100 mg PO BID PRN Constipation 08/26/24 04/26/25 History hydroxyzine HCl 25 mg tablet 25 mg PO DAILY PRN Anxiety 08/26/24 04/26/25 History lactulose 10 gram/15 mL oral 20 g PO TID 08/26/24 04/26/25 History solution midodrine 10 mg tablet 10 mg PO TID PRN Hypotension 08/26/24 04/26/25 History oxybutynin chloride 10 mg 10 mg PO QAM 08/26/24 04/26/25 History tablet,extended release 24 hr pantoprazole 40 mg tablet,delayed 40 mg DAILY 08/26/24 04/26/25 History release sennosides 8.6 mg-docusate sodium 2 tab PO HS 08/26/24 04/26/25 History 50 mg tablet (Senexon-S) tiotropium bromide 2.5 2 puff inhalation QAM 08/26/24 04/26/25 History mcg/actuation mist for inhalation (Spiriva Respimat) acetaminophen 325 mg tablet 650 mg PO Q6 PRN Fever Or Pain 09/30/24 04/26/25 History melatonin 3 mg capsule 3 mg PO HS 09/30/24 04/26/25 History ondansetron 4 mg disintegrating 4 mg translingual Q6 PRN Nausea 09/30/24 04/26/25 History tablet apixaban 5 mg tablet (Eliquis) 5 mg PO BID 03/21/25 04/26/25 History levetiracetam 1,000 mg tablet 1,000 mg PO BID 03/21/25 04/26/25 History simethicone 80 mg chewable tablet 80 mg PO TID 03/21/25 04/26/25 History duloxetine 60 mg capsule,delayed 60 mg PO QAM #30 caps 04/17/25 04/26/25 Rx release ferrous sulfate 325 mg (65 mg 325 mg PO Q OTHER DAY #30 tabs 04/17/25 04/26/25 Rx iron) tablet nortriptyline 25 mg capsule 50 mg (2 x 25 mg) PO HS #30 caps 04/17/25 04/26/25 Rx pregabalin 75 mg capsule (Lyrica) 75 mg PO TID #90 caps 04/17/25 04/26/25 Rx cefepime 1 gram solution for 1.5 g IV DIRECTED 04/26/25 04/26/25 History injection heparin, porcine (PF) 100 unit/mL 500 unit IV DIRECTED 04/26/25 04/26/25 History intravenous syringe (Heparin Lock Flush (Porcine) (PF)) sodium chloride 0.9 % (flush) 10 ml IV DIRECTED 04/26/25 04/26/25 History vancomycin 2 gram intravenous 2 g IV DIRECTED 04/26/25 04/26/25 History solution oxycodone 15 mg tablet 15 mg PO Q4H PRN severe pain 04/27/25 Rx (scale score 7-10) #40 tabs Hospital Stay Data Consultations 04/26/25 04:11 ED Decision to Admit Stat 04/26/25 05:54 Consult Infectious Diseases Routine Diagnostic Imagining Performed Reviewed imaging, laboratory and diagnostic studies. Pertinent findings as below. WBC 6.8 Hemoglobin 9.6 Platelets of 187 Electrolytes stable Creatinine 0.53 Vancomycin level 18.0, random Pending Results Patient Have Any Pending Studies at Discharge: No Discharge Instructions Given to Patient (Per Discharging Provider) You had a breakthrough seizure due to the antibiotic, cefepime, that you were on. The cefepime was stopped. The infectious disease doctor stated that you could stay off the cefepime and continue the vancomycin only. Home Health Attestation I certify that this patient is under my care and that I, or a physicians household personal assistant working with me, had a face to-face encounter that meets the home health [id number] encounter requirements with this patient. The encounter with the patient was in whole, or in part, for the following medical condition, which is the primary reason for home health care (list medical condition): I certify that, based on my findings, the following services are medically necessary home health services: My clinical findings support the need for the above services because: Further, I certify that my clinical findings support that this patient is homebound (i.e. absences from home require considerable and taxing effort and are for medical reasons or hindu services or infrequently or of short duration when for other reasons) because: Certification for Home Health Services: Based on the above findings, I certify that this patient is confined to the home and needs intermittent shelter care, physical therapy and/or speech therapy or continues to need occupational therapy. The patient is under my care, and I have initiated the establishment of the plan of care. This patient will be followed by a physician who will periodically review the plan of care. Total Time Total Time Spent Total Time Spent (In Minutes): 36
[2025-04-30] MEDS ORDERED: VANCOMYCIN LEVEL ONE (07:00)
== END 2025-04-27 15:58 | disposition home health service (06) ==
LOC: EDINP 00:55 → ED 00:55 → 3W 05:17

== ENCOUNTER 2025-06-20 19:24 | Inpatient (IN) ==
[2025-06-20 19:47] LABS: Hematocrit (blood only) 35.5 % (42.0-52.0); Hemoglobin 11.5 g/dL (14.0-18.0); Mean Corpuscular Hemoglobin 24.3 pg (25.0-34.0); Mean Corpuscular Volume 75.1 fL (80.0-100.0); Platelet Count 203 K/uL (130-400); RDW Standard Deviation 53.1 fL (36.4-46.3); Red Blood Count 4.73 M/uL (4.70-6.10); White Blood Count 17.29 K/ul (4.8-10.8)
[2025-06-20] MEDS: SODIUM CHLORIDE 0.9% 1,000 ML IV ONE ×2 (19:52→23:25)
[2025-06-20] MEDS: OPTIRAY 320 100ml IV ONE (20:04)
[2025-06-20 20:05] LABS: Alanine Aminotransferase 20.0 U/L (7-52); Albumin Level 3.7 gm/dl (3.4-5.0); Alkaline Phosphatase 168.0 U/L (34-104); Anion Gap 12.0 (3-11); Appearance Urine Cloudy (Clear); Bilirubin,Total 1.0 mg/dl (0.2-1.0); Blood Urea Nitrogen 17.0 mg/dl (6-23); Calcium 9.3 mg/dl (8.6-10.3); Carbon Dioxide 22.0 mmol/L (21-32); Chloride 105.0 mmol/L (98-107); Creatinine Clr Calc Pharmacy 109.6 ml/min; Glucose 131.0 mg/dl (70-99(Fasting)); Glucose Urine UA Negative (Negative); Lipase 13.0 U/L (11-82); Magnesium 1.8 mg/dl (1.7-2.4); Potassium 3.3 mmol/L (3.5-5.1); Sodium 139.0 mmol/L (136-145); Total Protein 6.9 gm/dl (6.0-8.3)
[2025-06-20 20:10] LABS: Anisocytosis Present; Immature Granulocytes # (auto) 0.14 K/uL (0.01-0.20); Immature Granulocytes % (auto) 0.8 %
[2025-06-20 20:33] LABS: Epithelial Cell Urine 0-2 /hpf (0-2)
--- NOTE | 2025-06-20 20:55 | XRay Report ---
Exam: Chest portable. Reason for exam: Abdominal pain. Previous studies: 06/20/2025 at 0528 hours. FINDINGS: The right CVP line is again seen unchanged in position. Cardiac size remains normal. Mild linear atelectasis is again present in the lower lung zones. Decubitus views are obtained. No significant pleural effusion seen. IMPRESSION: Stable appearance. Bowel linear atelectasis lower lobes. Otherwise no new acute disease seen at this time. Electronically signed by Kareem Ibarra 06-20-2025 8:54 PM
[2025-06-20] MEDS: PIPERACILLIN/TAZOBACTAM 4.5 GM/120 ML BAG IV ONE (21:17)
[2025-06-20] MEDS: ACETAMINOPHEN 1,000 MG/100 ML VIAL IV STA (21:40)
--- NOTE | 2025-06-20 23:21 | CT Scan Report ---
Exam(s): CT ABDOMEN + PELVIS With Contrast IV Amt: 90 ml optiray 320 EXAM: CT Abdomen and Pelvis With Intravenous Contrast CLINICAL HISTORY: Reason for exam: abd pain. TECHNIQUE: Axial computed tomography images of the abdomen and pelvis with intravenous contrast. CTDI is 33 mGy and DLP is 1854 mGy-cm. Automated exposure control was utilized for the study. A dose lowering technique was utilized adhering to the principles of ALARA. Moderate breathing/motion and artifact from fusion hardware in the arms which are also in the field of view. CONTRAST: Patient received 90 ml optiray 320 of IV contrast COMPARISON: CT abdomen pelvis 03/21/2025. FINDINGS: Lung bases: Stable linear scarring posterior costophrenic angles. Liver: Unremarkable. Gallbladder and bile ducts: Stable cholecystectomy. No ductal dilation. Pancreas: No ductal dilation, or acute pancreatitis. Spleen: Unremarkable. Adrenals: Unremarkable. Kidneys and ureters: Non obstructing stones left kidney, 1 of which has cleared. Stable hyperdense cyst or calcification right lower pole, non-obstructing No pyelonephritis or hydronephrosis. Stomach and bowel: Moderate fecal loading/impaction in the rectosigmoid and fecal loading of the colon, has progressed. No surrounding inflammation or obvious wall thickening to suggest an acute proctitis or stercoral colitis. No obstruction. Appendix: No acute appendicitis. Intraperitoneal space: No free air or fluid. Bones/joints: No acute fracture. Soft tissues: Unremarkable. Vasculature: No aortic aneurysm. Lymph nodes: No enlarged lymph nodes. Bladder: Collapsed by suprapubic catheter. Minimal calcification in the right posterior bladder. Reproductive: Unremarkable as visualized. IMPRESSION: 1. Fecal loading/impaction in the rectosigmoid, without clear signs of acute inflammation. 2. Non obstructing renal stones, and minimal bladder calcification. 3. Moderate artifact limits evaluation. Electronically signed by: Lauren Alejandro M.D. 06/20/25 23:20 PM
[2025-06-20] MEDS: SODIUM CHLORIDE 0.9% 500 ML IV ONE (23:25)
[2025-06-20] MEDS: SODIUM CHLORIDE 0.9% 500 ML IV SCH (23:25)
[2025-06-20] MEDS: KETOROLAC TROMETHAMINE 15 MG/ML VIAL IV STA (23:25)
--- NOTE | 2025-06-20 23:51 | History & Physical Report ---
Date of Service June 20, 2025 Assessment & Plan (1) Hypotension: Plan: Assessment and plan below following discussion of case with ED provider and reviewing patient history/pertinent normal/abnormal diagnostic test results. 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 intake/emesis Admit to PCU Facilitate midodrine IVF CS, daptomycin and meropenem on the basis of microbiologic history Wound care nurse consult Bowel regimen Replace potassium Check hemoglobin A1c Nicotine patch DVT prophylaxis. Eliquis Full code Patient sister requesting updates from provider. Ms. Lyn Fried, contact # [phone]. Total critical care time was 45 minutes. Text document was generated using [employer] voice recognition software. It may contain grammatical or spelling errors. Kindly contact undersigned for clarification of any documentation item in question. History of Present Illness Chief Complaint: Told to come back to ER for CAT scan Primary Care Provider: Chay Goins Capp, History obtained from patient and records. 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 Recent [facility] confinement April 2025 for constipation symptoms. Patient seen at [facility] ER last week for suprapubic catheter exchange. Tunneled R CVC catheter on ED provider's exam. Catheter no longer in use after completing antibiotic Rx for left foot osteomyelitis. Removal via IR contemplated at future time. Patient not feeling well the last few days following discharge from imprisonment at [facility]. Achy abdominal pain going to the chest associated with constipation symptoms. Sacral wounds not looking too good as per patient. Denies fever, chills. Denies hematuria/black/bloody stools. No unusual cough or headache symptoms. Patient consulted [facility] ER yesterday morning. Some bowel movement after soapsuds enema given at the ER. Patient discharged home. Patient consulted [facility] due to persistent symptoms but was discharged home. [facility] x-ray officially read as 1. There is suspicion for free intraperitoneal air versus entrapped bowel wall air, which appears more pronounced since the prior study. Correlation with an erect chest PA view and/or a CT scan of the abdomen is advised; follow-up is recommended. 2. Gaseous distention of the bowel loops is present. There is suspicion of pneumointestinalis in the left upper quadrant. 3. Large bowel loops are fecal-loaded, likely due to constipation, with slight interval progression since the prior study. Patient called to come back to ER to get a CAT scan. Lowest SBP of 60s documented at the ER. Zosyn and multiple crystalloid boluses administered at the ER. SBP currently 100s. Medical History as above Surgical History : Ankle surgery, neck surgery, urologic procedures, arm barrera rgery, appendectomy, leg abscess drainage/metatarsal surgery, cholecystectomy, wound debridement Family History : Heart disease Personal/Social history : 2 packs daily, occasional EtOH intake, disabled Allergies Allergy/AdvReac Type Severity Reaction Status Date / Time Opioids - Morphine Analogues AdvReac Severe severe Verified 04/26/25 01:40 bradycardia cefepime AdvReac Intermediate seizures Verified 04/26/25 20:11 Home Medications Medication Instructions Recorded Confirmed Type albuterol sulfate 2.5 mg/3 mL 1.25 mg inhalation Q4H PRN 08/26/24 06/21/25 History (0.083 %) solution for nebulization Shortness Of Breath Or Wheezing baclofen 10 mg tablet 20 mg PO TID 08/26/24 06/21/25 History bisacodyl 10 mg rectal suppository 10 mg WI QAM 08/26/24 06/21/25 History budesonide-formoterol HFA 160 2 puff inhalation AMHS 08/26/24 06/21/25 History mcg-4.5 mcg/actuation aerosol inhaler docusate sodium 100 mg capsule 100 mg PO AMPM PRN Constipation 08/26/24 06/21/25 History hydroxyzine HCl 25 mg tablet 25 mg PO DAILY PRN Anxiety 08/26/24 06/21/25 History lactulose 10 gram/15 mL oral 20 g PO TID 08/26/24 06/21/25 History solution midodrine 10 mg tablet 10 mg PO TID 08/26/24 06/21/25 History oxybutynin chloride 10 mg 10 mg PO QAM 08/26/24 06/21/25 History tablet,extended release 24 hr pantoprazole 40 mg tablet,delayed 40 mg PO QAM 08/26/24 06/21/25 History release sennosides 8.6 mg-docusate sodium 2 tab PO HS 08/26/24 06/21/25 History 50 mg tablet (Senexon-S) tiotropium bromide 2.5 2 puff inhalation QAM 08/26/24 06/21/25 History mcg/actuation mist for inhalation (Spiriva Respimat) acetaminophen 325 mg tablet 650 mg PO Q6 PRN Fever Or Pain 09/30/24 06/21/25 History ondansetron 4 mg disintegrating 4 mg translingual Q6 PRN Nausea 09/30/24 06/21/25 History tablet apixaban 5 mg tablet (Eliquis) 5 mg PO AMHS 03/21/25 06/21/25 History levetiracetam 1,000 mg tablet 1,000 mg PO AMHS 03/21/25 06/21/25 History duloxetine 60 mg capsule,delayed 60 mg PO QAM #30 caps 04/17/25 06/21/25 Rx release pregabalin 75 mg capsule (Lyrica) 75 mg PO TID #90 caps 04/17/25 06/21/25 Rx sodium chloride 0.9 % (flush) 10 ml IV DIRECTED 04/26/25 06/21/25 History oxycodone 15 mg tablet 15 mg PO Q4H PRN severe pain 04/27/25 06/21/25 Rx (scale score 7-10) #40 tabs diclofenac sodium 1 % topical gel 2 g topical QID PRN Pain 06/21/25 06/21/25 History guaifenesin 100 mg/5 mL oral liquid 200 mg PO QID PRN Cough 06/21/25 06/21/25 History heparin, porcine (PF) 10 unit/mL 10 unit IV UD 06/21/25 06/21/25 History intravenous syringe (Heparin Lock Flush (Porcine) (PF)) melatonin 3 mg capsule 3 mg PO HS 06/21/25 06/21/25 History multivitamin 1 tab PO QAM 06/21/25 06/21/25 History naloxone 0.4 mg/mL injection 0 mg intranasal UD 06/21/25 06/21/25 History solution simethicone 80 mg chewable tablet 80 mg PO TID 06/21/25 06/21/25 History Past Med/Surg History Problem List (Updated 06/21/25 @ 02:56 by Hope Liu) Sepsis (Acute) Acute UTI (Acute) Adult failure to thrive (Acute) Constipation (Acute) Iron deficiency anemia Acute osteomyelitis of metatarsal bone of left foot History of illicit drug use Spinal cord injury, cervical region Seizure disorder GERD (gastroesophageal reflux disease) COPD (chronic obstructive pulmonary disease) Bradycardia Pressure ulcer of left foot, stage 4 Stage IV pressure ulcer Quadriplegia (Acute) Hypotension (Acute) Autonomic dysreflexia (Acute) Sacral decubitus ulcer (Acute) Complicated urinary tract infection (Acute Unknown) History of pulmonary embolism Chronic pain (Acute) Suprapubic catheter (Acute) Medical History Hypokalemia Breakthrough seizure Seizure Medication reaction Left-sided chest pain Drug-induced seizure Open wound of left foot Chronic osteomyelitis of sacrum Sacral decubitus ulcer, stage IV Complicated UTI (urinary tract infection) RSV (respiratory syncytial virus infection) Hypoxia Leg wound, left Leg wound, right 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 Hypoxic respiratory failure 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 Severe sepsis Chest pain Acute hypoxemic respiratory failure Change or removal of nonsurgical wound dressing Pneumonia Encephalopathy Hypotension Acute UTI Sacral wound Quadriplegia Anemia Hypomagnesemia Hypokalemia Complication, blocked suprapubic catheter Leukocytosis Acute urinary retention Hydronephrosis Abdominal pain Left sided abdominal pain Cough Pneumonia Abnormal chest CT Elevated hemidiaphragm Pneumonia involving right lung Soft tissue infection Suprapubic catheter dysfunction Aspiration pneumonia Bacteremia Acute hypotension Acute hypokalemia Abdominal pain Hypoxic respiratory failure Sepsis Acute UTI Acute UTI Abdominal pain Aspiration pneumonitis Pneumonia Paraplegia Surgical History No pertinent past surgical history Social History Smoking Status: Current every day smoker Tobacco Type: Cigarettes Cigarettes Per Day: 1/2 pack; Second Hand Exposure: No; Do You Dip or Chew Tobacco: No; Hx Alcohol Use: Yes Alcohol type: beer Hx Substance Use: Yes Non-Prescribed Medications: Crack / Cocaine and Marijuana Last Used Substance: Days (ago) Preferred Language: [place] Islander Communication Ability: Effective Communication Ability Comment: difficulty writing Car Attendant Required: No Beliefs That Will Affect Care: None Current Living Situation: Family Current Living Situation Comment: lives with Diogenes Feels Safe at Home: Yes Safety Concerns: Feels Safe At This Time Assistive Devices: Scooter/Electric Scooter and Wheelchair Review of Systems Review of Systems: As per HPI, all other systems reviewed and negative Physical Exam Physical Exam: GENERAL: Coherent, looks older than stated age, chronically ill, no respiratory distress SKIN: Pallor HEENT: Alopecia, pale palpebral conjunctivae, no ptosis, dry buccal mucosa NECK : Supple, no tenderness CHEST : CVC catheter R chest wall, decreased breath sounds, no tenderness HEART : RRR. no obvious murmurs ABDOMEN: Some distention, R sided abdominal tenderness BACK : sacral wound not examined EXTREMITIES : Minimal LE swelling/tenderness, posterior surfaces not examined NEUROLOGIC : Coherent, no facial asymmetry, MMTS BUE 3/5, BLE 0 Results & Data Results & Data Vital Signs (Past 12 Hours) Vital Signs Temp Pulse Pulse Resp BP BP Pulse Ox 06/20/25 23:39 97 H 06/20/25 23:30 73 17 117/74 97 06/20/25 23:23 81/52 L 06/20/25 23:23 93 H 19 81/52 L 97 06/20/25 23:15 84 18 06/20/25 23:12 90 17 75/49 L 98 06/20/25 23:11 89 16 80/52 L 97 06/20/25 23:00 93 H 17 85/58 L 96 06/20/25 23:00 90 19 75/49 L 97 06/20/25 22:40 96 H 21 85/55 L 97 06/20/25 22:30 95 H 20 97 06/20/25 22:30 86/53 L 06/20/25 22:30 86/53 L 06/20/25 22:30 86/53 L 06/20/25 22:30 86/53 L 06/20/25 22:30 86/53 L 06/20/25 22:21 102 H 20 98 06/20/25 22:20 78/56 L 06/20/25 22:20 78/56 L 06/20/25 22:20 78/56 L 06/20/25 22:20 78/56 L 06/20/25 22:20 78/56 L 06/20/25 22:18 93 H 22 98 06/20/25 22:12 98 H 21 97 06/20/25 22:10 92/68 L 06/20/25 22:10 92/68 L 06/20/25 22:10 92/68 L 06/20/25 22:10 92/68 L 06/20/25 22:10 92/68 L 06/20/25 22:09 94 H 25 H 99 06/20/25 22:00 86/58 L 06/20/25 22:00 86/58 L 06/20/25 22:00 86/58 L 06/20/25 22:00 86/58 L 06/20/25 22:00 86/58 L 06/20/25 22:00 96 H 27 H 98 06/20/25 21:51 98 H 21 97 06/20/25 21:50 103/71 06/20/25 21:50 103/71 06/20/25 21:50 103/71 06/20/25 21:50 103/71 06/20/25 21:50 103/71 06/20/25 21:48 95 H 25 H 96 06/20/25 21:42 93 H 22 93 06/20/25 21:40 80/56 L 06/20/25 21:40 80/56 L 06/20/25 21:40 80/56 L 06/20/25 21:39 91 H 25 H 93 06/20/25 21:30 92/64 L 06/20/25 21:30 92/64 L 06/20/25 21:30 92/64 L 06/20/25 21:30 92/64 L 06/20/25 21:30 92/64 L 06/20/25 21:30 91 H 22 93 06/20/25 21:21 90 25 H 94 06/20/25 21:21 85/58 L 06/20/25 21:21 85/58 L 06/20/25 21:21 85/58 L 06/20/25 21:21 85/58 L 06/20/25 21:21 85/58 L 06/20/25 21:12 94 H 28 H 06/20/25 21:10 114/81 06/20/25 21:10 114/81 06/20/25 21:10 114/81 06/20/25 21:10 114/81 06/20/25 21:10 114/81 06/20/25 21:09 89 28 H 95 06/20/25 21:00 94 H 23 06/20/25 21:00 99/69 L 06/20/25 21:00 99/69 L 06/20/25 21:00 99/69 L 06/20/25 21:00 99/69 L 06/20/25 21:00 99/69 L 06/20/25 20:55 86/70 L 06/20/25 20:55 86/70 L 06/20/25 20:55 86/70 L 06/20/25 20:55 86/70 L 06/20/25 20:55 86/70 L 06/20/25 20:54 98 H 28 H 96 06/20/25 20:51 93 H 30 H 97 06/20/25 20:50 91/66 L 06/20/25 20:50 91/66 L 06/20/25 20:50 91/66 L 06/20/25 20:50 91/66 L 06/20/25 20:50 91/66 L 06/20/25 20:48 97 H 26 H 97 06/20/25 20:45 91/66 L 06/20/25 20:45 91/66 L 06/20/25 20:45 91/66 L 06/20/25 20:45 91/66 L 06/20/25 20:45 91/66 L 06/20/25 20:45 96 H 24 06/20/25 20:42 94 H 25 H 06/20/25 19:55 108/79 06/20/25 19:54 98 H 21 06/20/25 19:51 85 30 H 96 06/20/25 19:50 90/57 L 06/20/25 19:50 90/57 L 06/20/25 19:50 90/57 L 06/20/25 19:50 90/57 L 06/20/25 19:48 91 H 19 06/20/25 19:45 93 H 27 H 97 06/20/25 19:45 89/63 L 06/20/25 19:45 89/63 L 06/20/25 19:45 89/63 L 06/20/25 19:45 89/63 L 06/20/25 19:42 76 24 06/20/25 19:41 133/88 06/20/25 19:41 133/88 06/20/25 19:41 133/88 06/20/25 19:41 133/88 06/20/25 19:39 89 21 06/20/25 19:38 90/55 L 06/20/25 19:38 90/55 L 06/20/25 19:38 90/55 L 06/20/25 19:36 76/50 L 06/20/25 19:36 76/50 L 06/20/25 19:36 94 H 19 06/20/25 19:35 60/42 L 06/20/25 19:35 60/42 L 06/20/25 19:34 65/39 L 06/20/25 19:33 94 H 28 H 06/20/25 19:32 68/44 L 06/20/25 19:30 88 18 98 06/20/25 19:30 101 H 06/20/25 19:07 36.8 C 89 18 89/63 L 98 06/20/25 19:07 36.8 C 88 18 89/63 L 97 O2 Del Method 06/20/25 23:39 06/20/25 23:30 Room Air 06/20/25 23:23 06/20/25 23:23 Room Air 06/20/25 23:15 06/20/25 23:12 Room Air 06/20/25 23:11 Room Air 06/20/25 23:00 Room Air 06/20/25 23:00 06/20/25 22:40 Room Air 06/20/25 22:30 06/20/25 22:30 06/20/25 22:30 06/20/25 22:30 06/20/25 22:30 06/20/25 22:30 06/20/25 22:21 06/20/25 22:20 06/20/25 22:20 06/20/25 22:20 06/20/25 22:20 06/20/25 22:20 06/20/25 22:18 06/20/25 22:12 06/20/25 22:10 06/20/25 22:10 06/20/25 22:10 06/20/25 22:10 06/20/25 22:10 06/20/25 22:09 06/20/25 22:00 06/20/25 22:00 06/20/25 22:00 06/20/25 22:00 06/20/25 22:00 06/20/25 22:00 06/20/25 21:51 06/20/25 21:50 06/20/25 21:50 06/20/25 21:50 06/20/25 21:50 06/20/25 21:50 06/20/25 21:48 06/20/25 21:42 06/20/25 21:40 06/20/25 21:40 06/20/25 21:40 06/20/25 21:39 06/20/25 21:30 06/20/25 21:30 06/20/25 21:30 06/20/25 21:30 06/20/25 21:30 06/20/25 21:30 06/20/25 21:21 06/20/25 21:21 06/20/25 21:21 06/20/25 21:21 06/20/25 21:21 06/20/25 21:21 06/20/25 21:12 06/20/25 21:10 06/20/25 21:10 06/20/25 21:10 06/20/25 21:10 06/20/25 21:10 06/20/25 21:09 06/20/25 21:00 06/20/25 21:00 06/20/25 21:00 06/20/25 21:00 06/20/25 21:00 06/20/25 21:00 06/20/25 20:55 06/20/25 20:55 06/20/25 20:55 06/20/25 20:55 06/20/25 20:55 06/20/25 20:54 06/20/25 20:51 06/20/25 20:50 06/20/25 20:50 06/20/25 20:50 06/20/25 20:50 06/20/25 20:50 06/20/25 20:48 06/20/25 20:45 06/20/25 20:45 06/20/25 20:45 06/20/25 20:45 06/20/25 20:45 06/20/25 20:45 06/20/25 20:42 06/20/25 19:55 06/20/25 19:54 06/20/25 19:51 06/20/25 19:50 06/20/25 19:50 06/20/25 19:50 06/20/25 19:50 06/20/25 19:48 06/20/25 19:45 06/20/25 19:45 06/20/25 19:45 06/20/25 19:45 06/20/25 19:45 06/20/25 19:42 06/20/25 19:41 06/20/25 19:41 06/20/25 19:41 06/20/25 19:41 06/20/25 19:39 06/20/25 19:38 06/20/25 19:38 06/20/25 19:38 06/20/25 19:36 06/20/25 19:36 06/20/25 19:36 06/20/25 19:35 06/20/25 19:35 06/20/25 19:34 06/20/25 19:33 06/20/25 19:32 06/20/25 19:30 Room Air 06/20/25 19:30 06/20/25 19:07 Room Air 06/20/25 19:07 Room Air Laboratory Results Laboratory Results WBC 17.29 K/ul (4.8-10.8) H 06/20/25 19:33 RBC 4.73 M/uL (4.70-6.10) 06/20/25 19:33 Hgb 11.5 g/dL (14.0-18.0) L 06/20/25 19:33 POC Hgb 11.6 g/dl (14.0-18.0) L 06/20/25 19:49 Hct 35.5 % (42.0-52.0) L 06/20/25 19:33 POC Hct 34 % (42-52) L 06/20/25 19:49 MCV 75.1 fL (80.0-100.0) L 06/20/25 19:33 MCH 24.3 pg (25.0-34.0) L 06/20/25 19:33 MCHC 32.4 g/dL (32.0-36.0) 06/20/25 19: RDW Std Deviation 53.1 fL (36.4-46.3) H 06/20/25 19: RDW Coeff of Adelia 19.9 % (11.5-14.5) H 06/20/25 19:33 Plt Count 203 K/uL (130-400) 06/20/25 19:33 MPV 8.9 fL (9.4-12.4) L 06/20/25 19:33 Immature Gran % (Auto) 0.8 % 06/20/25 19: Neut % (Auto) 95.9 % 06/20/25 19: Lymph % (Auto) 0.8 % 06/20/25 19:33 [place] % (Auto) 2.3 % 06/20/25 19:33 Eos % (Auto) 0.0 % 06/20/25 19:33 Baso % (Auto) 0.2 % 06/20/25 19:33 Neut # (Auto) 16.60 K/uL (1.40-6.50) H 06/20/25 19:33 Lymph # (Auto) 0.13 K/uL (1.20-3.40) L 06/20/25 19:33 [place] # (Auto) 0.39 K/uL (0.11-0.59) 06/20/25 19:33 Eos # (Auto) 0.00 K/uL (0.00-0.50) 06/20/25 19:33 Baso # (Auto) 0.03 K/uL (0.00-0.20) 06/20/25 19:33 Immature Gran # (Auto) 0.14 K/uL (0.01-0.20) 06/20/25 19:33 Anisocytosis Present 06/20/25 19:33 POC Sodium 139 mmol/L (135-144) 06/20/25 19:49 Sodium 139 mmol/L (136-145) 06/20/25 19:33 POC Potassium 3.2 mmol/L (3.3-5.0) L 06/20/25 19:49 Potassium 3.3 mmol/L (3.5-5.1) L 06/20/25 19:33 POC Chloride 107 mmol/L (101-112) 06/20/25 19:49 Chloride 105 mmol/L (98-107) 06/20/25 19:33 Carbon Dioxide 22 mmol/L (21-32) 06/20/25 19:33 POC Total CO2 19 mmol/L (24-31) L 06/20/25 19:49 Anion Gap 12 (3-11) H 06/20/25 19:33 POC Anion Gap 18.0 mmol/L (16-25) 06/20/25 19:49 POC BUN 15 mg/dl (7-18) 06/20/25 19:49 BUN 17 mg/dl (6-23) 06/20/25 19:33 Creatinine 0.91 mg/dl (0.6-1.4) 06/20/25 19:33 POC Creatinine 1.0 mg/dl (0.6-1.3) 06/20/25 19:49 Est Cr Clr Drug Dosing 109.6 ml/min 06/20/25 19:33 eGFR 103.96 06/20/25 19:33 BUN/Creatinine Ratio 18.7 (10-20) 06/20/25 19:33 Glucose 131 mg/dl (70-99(Fasting)) H 06/20/25 19:33 POC Glucose (other) 138 mg/dl (70-99) H 06/20/25 19:49 Lactate 1.5 mmol/L (0.4-2.0) 06/20/25 19:47 Calcium 9.3 mg/dl (8.6-10.3) 06/20/25 19:33 POC Ioniz Calcium Maddi 1.14 mmol/l (1.12-1.32) 06/20/25 19:49 Magnesium 1.8 mg/dl (1.7-2.4) 06/20/25 19:33 Total Bilirubin 1.0 mg/dl (0.2-1.0) 06/20/25 19:33 Direct Bilirubin 0.2 mg/dl (0-0.2) 06/20/25 19:33 AST 29 U/L (13-39) 06/20/25 19:33 ALT 20 U/L (7-52) 06/20/25 19:33 Alkaline Phosphatase 168 U/L (34-104) H 06/20/25 19:33 Total Protein 6.9 gm/dl (6.0-8.3) 06/20/25 19:33 Albumin 3.7 gm/dl (3.4-5.0) 06/20/25 19:33 Lipase 13 U/L (11-82) 06/20/25 19:33 Urine Color Yellow 06/20/25 19:33 Urine Appearance Cloudy (Clear) A 06/20/25 19:33 Urine pH 6.5 (4.5-7.5) 06/20/25 19:33 Ur Specific [place] 1.010 (1.000-1.030) 06/20/25 19:33 Urine Protein 3+ (Negative) H 06/20/25 19:33 Urine Glucose (UA) Negative (Negative) 06/20/25 19:33 Urine Ketones 1+ (Negative) H 06/20/25 19:33 Urine Blood 3+ (Negative) H 06/20/25 19:33 Urine Nitrite Negative (Negative) 06/20/25 19:33 Urine Bilirubin 1+ (Negative) H 06/20/25 19:33 Urine Urobilinogen Negative (Negative) 06/20/25 19:33 Ur Leukocyte Esterase 1+ (Negative) H 06/20/25 19:33 Urine RBC 11-20 /hpf (0-2) H 06/20/25 19:33 Urine WBC >50 /hpf (0-5) H 06/20/25 19:33 Ur Epithelial Cells 0-2 /hpf (0-2) 06/20/25 19:33 Urine Bacteria 3+ (None Seen) H 06/20/25 19:33 Hyaline Casts Present /lpf (None Presnt) A 06/20/25 19:33 Urine Yeast Present (None Prsent) A 06/20/25 19:33 Urine Comment 06/20/25 19:33 Impressions Abdomen/Pelvis CT 06/20/25 19:40 Exam(s): CT ABDOMEN + PELVIS With Contrast IV Amt: 90 ml optiray 320 EXAM: CT Abdomen and Pelvis With Intravenous Contrast CLINICAL HISTORY: Reason for exam: abd pain. TECHNIQUE: Axial computed tomography images of the abdomen and pelvis with intravenous contrast. CTDI is 33 mGy and DLP is 1854 mGy-cm. Automated exposure control was utilized for the study. A dose lowering technique was utilized adhering to the principles of ALARA. Moderate breathing/motion and artifact from fusion hardware in the arms which are also in the field of view. CONTRAST: Patient received 90 ml optiray 320 of IV contrast COMPARISON: CT abdomen pelvis 03/21/2025. FINDINGS: Lung bases: Stable linear scarring posterior costophrenic angles. Liver: Unremarkable. Gallbladder and bile ducts: Stable cholecystectomy. No ductal dilation. Pancreas: No ductal dilation, or acute pancreatitis. Spleen: Unremarkable. Adrenals: Unremarkable. Kidneys and ureters: Non obstructing stones left kidney, 1 of which has cleared. Stable hyperdense cyst or calcification right lower pole, non-obstructing No pyelonephritis or hydronephrosis. Stomach and bowel: Moderate fecal loading/impaction in the rectosigmoid and fecal loading of the colon, has progressed. No surrounding inflammation or obvious wall thickening to suggest an acute proctitis or stercoral colitis. No obstruction. Appendix: No acute appendicitis. Intraperitoneal space: No free air or fluid. Bones/joints: No acute fracture. Soft tissues: Unremarkable. Vasculature: No aortic aneurysm. Lymph nodes: No enlarged lymph nodes. Bladder: Collapsed by suprapubic catheter. Minimal calcification in the right posterior bladder. Reproductive: Unremarkable as visualized. IMPRESSION: 1. Fecal loading/impaction in the rectosigmoid, without clear signs of acute inflammation. 2. Non obstructing renal stones, and minimal bladder calcification. 3. Moderate artifact limits evaluation. Electronically signed by: Lauren Alejandro M.D. 06/20/25 23:20 PM Chest X-Ray 06/20/25 19:40 Exam: Chest portable. Reason for exam: Abdominal pain. Previous studies: 06/20/2025 at 0528 hours. FINDINGS: The right CVP line is again seen unchanged in position. Cardiac size remains normal. Mild linear atelectasis is again present in the lower lung zones. Decubitus views are obtained. No significant pleural effusion seen. IMPRESSION: Stable appearance. Bowel linear atelectasis lower lobes. Otherwise no new acute disease seen at this time. Electronically signed by Kareem Ibarra 06-20-2025 8:54 PM (1) Hypotension Hypotension type: unspecified hypotension type Qualified Code(s): I95.9 - Hypotension, unspecified
--- NOTE | 2025-06-21 00:52 | Emergency Department Note ---
History of Present Illness General Chief Complaint: Abdominal Pain Stated Complaint: Abdominal Pain Time Seen by Provider: 06/20/25 19:30 History of Present Illness Provider Complaint: abdominal pain Onset (ago): 2 day(s) Pain Consistency: constant Location: LLQ Radiation: LUQ Severity: moderate Maximum Pain Intensity: 8 Current Pain Intensity: 8 Quality: + stabbing and + sharp Relieved By: + nothing Exacerbated By: + nothing Context: no foreign travel or no possible food poisoning Associated Symptoms: + nausea and + constipation; no diarrhea, no fever, no chills, no dysuria, no hematemesis, no hematochezia, no melena, no hematuria, no headache, no chest pain and no breathing difficulty Home Medications Medication Instructions Recorded Confirmed Type albuterol sulfate 2.5 mg/3 mL 1.25 mg inhalation Q4H PRN 08/26/24 06/21/25 History (0.083 %) solution for nebulization Shortness Of Breath Or Wheezing baclofen 10 mg tablet 20 mg PO TID 08/26/24 06/21/25 History bisacodyl 10 mg rectal suppository 10 mg MA QAM 08/26/24 06/21/25 History budesonide-formoterol HFA 160 2 puff inhalation AMHS 08/26/24 06/21/25 History mcg-4.5 mcg/actuation aerosol inhaler docusate sodium 100 mg capsule 100 mg PO AMPM PRN Constipation 08/26/24 06/21/25 History hydroxyzine HCl 25 mg tablet 25 mg PO DAILY PRN Anxiety 08/26/24 06/21/25 History lactulose 10 gram/15 mL oral 0 g PO TID 08/26/24 06/21/25 History solution midodrine 10 mg tablet 10 mg PO TID PRN Hypotension 08/26/24 06/21/25 History oxybutynin chloride 10 mg 10 mg PO QAM 08/26/24 06/21/25 History tablet,extended release 24 hr pantoprazole 40 mg tablet,delayed 40 mg PO QAM 08/26/24 06/21/25 History release sennosides 8.6 mg-docusate sodium 2 tab PO HS 08/26/24 06/21/25 History 50 mg tablet (Senexon-S) tiotropium bromide 2.5 2 puff inhalation QAM 08/26/24 06/21/25 History mcg/actuation mist for inhalation (Spiriva Respimat) acetaminophen 325 mg tablet 650 mg PO Q6 PRN Fever Or Pain 09/30/24 06/21/25 History ondansetron 4 mg disintegrating 4 mg translingual Q6 PRN Nausea 09/30/24 06/21/25 History tablet apixaban 5 mg tablet (Eliquis) 5 mg PO AMHS 03/21/25 06/21/25 History levetiracetam 1,000 mg tablet 1,000 mg PO AMHS 03/21/25 06/21/25 History duloxetine 60 mg capsule,delayed 60 mg PO QAM #30 caps 04/17/25 06/21/25 Rx release ferrous sulfate 325 mg (65 mg 325 mg PO Q OTHER DAY #30 tabs 04/17/25 06/21/25 Rx iron) tablet nortriptyline 25 mg capsule 50 mg (2 x 25 mg) PO HS #30 caps 04/17/25 06/21/25 Rx pregabalin 75 mg capsule (Lyrica) 75 mg PO TID #90 caps 04/17/25 06/21/25 Rx sodium chloride 0.9 % (flush) 10 ml IV DIRECTED 04/26/25 04/30/25 History vancomycin 2 gram intravenous 2 g IV DIRECTED 04/26/25 04/26/25 History solution oxycodone 15 mg tablet 15 mg PO Q4H PRN severe pain 04/27/25 06/21/25 Rx (scale score 7-10) #40 tabs polyethylene glycol 3350 17 17 g PO QAM 06/21/25 06/21/25 History gram/dose oral powder Allergies Allergy/AdvReac Type Severity Reaction Status Date / Time Opioids - Morphine Analogues AdvReac Severe severe Verified 04/26/25 01:40 bradycardia cefepime AdvReac Intermediate seizures Verified 04/26/25 20:11 Past Med/Surg History Problem List (Updated 06/21/25 @ 00:52 by Dominic Trejo MD) Sepsis (Acute) Acute UTI (Acute) Adult failure to thrive (Acute) Constipation (Acute) Iron deficiency anemia Acute osteomyelitis of metatarsal bone of left foot History of illicit drug use Spinal cord injury, cervical region Seizure disorder GERD (gastroesophageal reflux disease) COPD (chronic obstructive pulmonary disease) Bradycardia Pressure ulcer of left foot, stage 4 Stage IV pressure ulcer Quadriplegia (Acute) Hypotension (Acute) Autonomic dysreflexia (Acute) Sacral decubitus ulcer (Acute) Complicated urinary tract infection (Acute Unknown) History of pulmonary embolism Chronic pain (Acute) Suprapubic catheter (Acute) Medical History Hypokalemia Breakthrough seizure Seizure Medication reaction Left-sided chest pain Drug-induced seizure Open wound of left foot Chronic osteomyelitis of sacrum Sacral decubitus ulcer, stage IV Complicated UTI (urinary tract infection) RSV (respiratory syncytial virus infection) Hypoxia Leg wound, left Leg wound, right 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 Hypoxic respiratory failure 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 Severe sepsis Chest pain Acute hypoxemic respiratory failure Change or removal of nonsurgical wound dressing Pneumonia Encephalopathy Hypotension Acute UTI Sacral wound Quadriplegia Anemia Hypomagnesemia Hypokalemia Complication, blocked suprapubic catheter Leukocytosis Acute urinary retention Hydronephrosis Abdominal pain Left sided abdominal pain Cough Pneumonia Abnormal chest CT Elevated hemidiaphragm Pneumonia involving right lung Soft tissue infection Suprapubic catheter dysfunction Aspiration pneumonia Bacteremia Acute hypotension Acute hypokalemia Abdominal pain Hypoxic respiratory failure Sepsis Acute UTI Acute UTI Abdominal pain Aspiration pneumonitis Pneumonia Paraplegia Surgical History No pertinent past surgical history Social History Smoking Status: Current every day smoker Tobacco Type: Cigarettes Cigarettes Per Day: 1ppd; Second Hand Exposure: No; Do You Dip or Chew Tobacco: No; Hx Alcohol Use: Yes Alcohol type: beer Hx Substance Use: Yes Non-Prescribed Medications: Crack / Cocaine and Marijuana Last Used Substance: Hours (ago) Preferred Language: Georgian Communication Ability: Effective Communication Ability Comment: difficulty writing Filter Press Pumper Required: No Beliefs That Will Affect Care: None Current Living Situation: Family Current Living Situation Comment: lives with his sister and her daughter Feels Safe at Home: Yes Assistive Devices: Wheelchair and Other Physical Exam 2 Vital Signs: Vital Signs - 24 hr 06/20/25 19:07 06/20/25 19:07 06/20/25 19:30 Temperature 36.8 C 36.8 C Temperature Source Oral Oral Pulse Rate 88 101 H Pulse Rate [Right Finger] 89 Pulse Rate from Sp O2 Sensor Respiratory Rate 18 18 Respiratory Effort / Characteristics Respiratory Depth Respiratory Patter n Blood Pressure 89/63 L Blood Pressure [Ri ght Arm] 89/63 L Blood Pressure Mary n 71 Blood Pressure Mary n [Right Arm] 71 Pulse Oximetry 97 98 Oxygen Delivery Me thod Room Air Room Air Sepsis Recent Feve r Within 48 Hours No Sepsis New/Unexpla ined Change in Men gilmar Status No Sepsis Action Take n by Nursing No Action Required 06/20/25 19:30 06/20/25 19:32 06/20/25 19:33 Temperature Temperature Source Pulse Rate 88 94 H Pulse Rate [Right Finger] Pulse Rate from Sp O2 Sensor Respiratory Rate 18 28 H Respiratory Effort / Characteristics Respiratory Depth Respiratory Patter n Blood Pressure 68/44 L Blood Pressure [Ri ght Arm] Blood Pressure Mary n 56 Blood Pressure Mary n [Right Arm] Pulse Oximetry 98 Oxygen Delivery Me thod Room Air Sepsis Recent Feve r Within 48 Hours Sepsis New/Unexpla ined Change in Men gilmar Status Sepsis Action Take n by Nursing 06/20/25 19:34 06/20/25 19:35 06/20/25 19:35 Temperature Temperature Source Pulse Rate Pulse Rate [Right Finger] Pulse Rate from Sp O2 Sensor Respiratory Rate Respiratory Effort / Characteristics Respiratory Depth Respiratory Patter n Blood Pressure 65/39 L 60/42 L 60/42 L Blood Pressure [Ri ght Arm] Blood Pressure Mary n 48 50 50 Blood Pressure Mary n [Right Arm] Pulse Oximetry Oxygen Delivery Me thod Sepsis Recent Feve r Within 48 Hours Sepsis New/Unexpla ined Change in Men gilmar Status Sepsis Action Take n by Nursing 06/20/25 19:36 06/20/25 19:36 06/20/25 19:36 Temperature Temperature Source Pulse Rate 94 H Pulse Rate [Right Finger] Pulse Rate from Sp O2 Sensor Respiratory Rate 19 Respiratory Effort / Characteristics Respiratory Depth Respiratory Patter n Blood Pressure 76/50 L 76/50 L Blood Pressure [Ri ght Arm] Blood Pressure Mary n 53 53 Blood Pressure Mary n [Right Arm] Pulse Oximetry Oxygen Delivery Me thod Sepsis Recent Feve r Within 48 Hours Sepsis New/Unexpla ined Change in Men gilmar Status Sepsis Action Take n by Nursing 06/20/25 19:38 06/20/25 19:38 06/20/25 19:38 Temperature Temperature Source Pulse Rate Pulse Rate [Right Finger] Pulse Rate from Sp O2 Sensor Respiratory Rate Respiratory Effort / Characteristics Respiratory Depth Respiratory Patter n Blood Pressure 90/55 L 90/55 L 90/55 L Blood Pressure [Ri ght Arm] Blood Pressure Mary n 62 62 62 Blood Pressure Mary n [Right Arm] Pulse Oximetry Oxygen Delivery Me thod Sepsis Recent Feve r Within 48 Hours Sepsis New/Unexpla ined Change in Men gilmar Status Sepsis Action Take n by Nursing 06/20/25 19:39 06/20/25 19:41 06/20/25 19:41 Temperature Temperature Source Pulse Rate 89 Pulse Rate [Right Finger] Pulse Rate from Sp O2 Sensor Respiratory Rate 21 Respiratory Effort / Characteristics Respiratory Depth Respiratory Patter n Blood Pressure 133/88 133/88 Blood Pressure [Ri ght Arm] Blood Pressure Mary n 91 91 Blood Pressure Mary n [Right Arm] Pulse Oximetry Oxygen Delivery Me thod Sepsis Recent Feve r Within 48 Hours Sepsis New/Unexpla ined Change in Men gilmar Status Sepsis Action Take n by Nursing 06/20/25 19:41 06/20/25 19:41 06/20/25 19:42 Temperature Temperature Source Pulse Rate 76 Pulse Rate [Right Finger] Pulse Rate from Sp O2 Sensor Respiratory Rate 24 Respiratory Effort / Characteristics Respiratory Depth Respiratory Patter n Blood Pressure 133/88 133/88 Blood Pressure [Ri ght Arm] Blood Pressure Mary n 91 91 Blood Pressure Mary n [Right Arm] Pulse Oximetry Oxygen Delivery Me thod Sepsis Recent Feve r Within 48 Hours Sepsis New/Unexpla ined Change in Men gilmar Status Sepsis Action Take n by Nursing 06/20/25 19:45 06/20/25 19:45 06/20/25 19:45 Temperature Temperature Source Pulse Rate Pulse Rate [Right Finger] Pulse Rate from Sp O2 Sensor Respiratory Rate Respiratory Effort / Characteristics Respiratory Depth Respiratory Patter n Blood Pressure 89/63 L 89/63 L 89/63 L Blood Pressure [Ri ght Arm] Blood Pressure Mary n 72 72 72 Blood Pressure Mary n [Right Arm] Pulse Oximetry Oxygen Delivery Me thod Sepsis Recent Feve r Within 48 Hours Sepsis New/Unexpla ined Change in Men gilmar Status Sepsis Action Take n by Nursing 06/20/25 19:45 06/20/25 19:45 06/20/25 19:48 Temperature Temperature Source Pulse Rate 93 H 91 H Pulse Rate [Right Finger] Pulse Rate from Sp O2 Sensor 91 H Respiratory Rate 27 H 19 Respiratory Effort / Characteristics Respiratory Depth Respiratory Patter n Blood Pressure 89/63 L Blood Pressure [Ri ght Arm] Blood Pressure Mary n 72 Blood Pressure Mary n [Right Arm] Pulse Oximetry 97 Oxygen Delivery Me thod Sepsis Recent Feve r Within 48 Hours Sepsis New/Unexpla ined Change in Men gilmar Status Sepsis Action Take n by Nursing 06/20/25 19:50 06/20/25 19:50 06/20/25 19:50 Temperature Temperature Source Pulse Rate Pulse Rate [Right Finger] Pulse Rate from Sp O2 Sensor Respiratory Rate Respiratory Effort / Characteristics Respiratory Depth Respiratory Patter n Blood Pressure 90/57 L 90/57 L 90/57 L Blood Pressure [Ri ght Arm] Blood Pressure Mary n 65 65 65 Blood Pressure Mary n [Right Arm] Pulse Oximetry Oxygen Delivery Me thod Sepsis Recent Feve r Within 48 Hours Sepsis New/Unexpla ined Change in Men gilmar Status Sepsis Action Take n by Nursing 06/20/25 19:50 06/20/25 19:51 06/20/25 19:54 Temperature Temperature Source Pulse Rate 85 98 H Pulse Rate [Right Finger] Pulse Rate from Sp O2 Sensor 86 Respiratory Rate 30 H 21 Respiratory Effort / Characteristics Respiratory Depth Respiratory Patter n Blood Pressure 90/57 L Blood Pressure [Ri ght Arm] Blood Pressure Mary n 65 Blood Pressure Mary n [Right Arm] Pulse Oximetry 96 Oxygen Delivery Me thod Sepsis Recent Feve r Within 48 Hours Sepsis New/Unexpla ined Change in Men gilmar Status Sepsis Action Take n by Nursing 06/20/25 19:55 06/20/25 20:42 06/20/25 20:45 Temperature Temperature Source Pulse Rate 94 H 96 H Pulse Rate [Right Finger] Pulse Rate from Sp O2 Sensor Respiratory Rate 25 H 24 Respiratory Effort / Characteristics Respiratory Depth Respiratory Patter n Blood Pressure 108/79 Blood Pressure [Ri ght Arm] Blood Pressure Mary n 83 Blood Pressure Mary n [Right Arm] Pulse Oximetry Oxygen Delivery Me thod Sepsis Recent Feve r Within 48 Hours Sepsis New/Unexpla ined Change in Men gilmar Status Sepsis Action Take n by Nursing 06/20/25 20:45 06/20/25 20:45 06/20/25 20:45 Temperature Temperature Source Pulse Rate Pulse Rate [Right Finger] Pulse Rate from Sp O2 Sensor Respiratory Rate Respiratory Effort / Characteristics Respiratory Depth Respiratory Patter n Blood Pressure 91/66 L 91/66 L 91/66 L Blood Pressure [Ri ght Arm] Blood Pressure Mary n 70 70 70 Blood Pressure Mary n [Right Arm] Pulse Oximetry Oxygen Delivery Me thod Sepsis Recent Feve r Within 48 Hours Sepsis New/Unexpla ined Change in Men gilmar Status Sepsis Action Take n by Nursing 06/20/25 20:45 06/20/25 20:45 06/20/25 20:48 Temperature Temperature Source Pulse Rate 97 H Pulse Rate [Right Finger] Pulse Rate from Sp O2 Sensor 98 H Respiratory Rate 26 H Respiratory Effort / Characteristics Respiratory Depth Respiratory Patter n Blood Pressure 91/66 L 91/66 L Blood Pressure [Ri ght Arm] Blood Pressure Amry n 70 70 Blood Pressure Mary n [Right Arm] Pulse Oximetry 97 Oxygen Delivery Me thod Sepsis Recent Feve r Within 48 Hours Sepsis New/Unexpla ined Change in Men gilmar Status Sepsis Action Take n by Nursing 06/20/25 20:50 06/20/25 20:50 06/20/25 20:50 Temperature Temperature Source Pulse Rate Pulse Rate [Right Finger] Pulse Rate from Sp O2 Sensor Respiratory Rate Respiratory Effort / Characteristics Respiratory Depth Respiratory Patter n Blood Pressure 91/66 L 91/66 L 91/66 L Blood Pressure [Ri ght Arm] Blood Pressure Mary n 80 80 80 Blood Pressure Mary n [Right Arm] Pulse Oximetry Oxygen Delivery Me thod Sepsis Recent Feve r Within 48 Hours Sepsis New/Unexpla ined Change in Men gilmar Status Sepsis Action Take n by Nursing 06/20/25 20:50 06/20/25 20:50 06/20/25 20:51 Temperature Temperature Source Pulse Rate 93 H Pulse Rate [Right Finger] Pulse Rate from Sp O2 Sensor 94 H Respiratory Rate 30 H Respiratory Effort / Characteristics Respiratory Depth Respiratory Patter n Blood Pressure 91/66 L 91/66 L Blood Pressure [Ri ght Arm] Blood Pressure Mary n 80 80 Blood Pressure Mary n [Right Arm] Pulse Oximetry 97 Oxygen Delivery Me thod Sepsis Recent Feve r Within 48 Hours Sepsis New/Unexpla ined Change in Men gilmar Status Sepsis Action Take n by Nursing 06/20/25 20:54 06/20/25 20:55 06/20/25 20:55 Temperature Temperature Source Pulse Rate 98 H Pulse Rate [Right Finger] Pulse Rate from Sp O2 Sensor 98 H Respiratory Rate 28 H Respiratory Effort / Characteristics Respiratory Depth Respiratory Patter n Blood Pressure 86/70 L 86/70 L Blood Pressure [Ri ght Arm] Blood Pressure Mary n 76 76 Blood Pressure Mary n [Right Arm] Pulse Oximetry 96 Oxygen Delivery Me thod Sepsis Recent Feve r Within 48 Hours Sepsis New/Unexpla ined Change in Men gilmar Status Sepsis Action Take n by Nursing 06/20/25 20:55 06/20/25 20:55 06/20/25 20:55 Temperature Temperature Source Pulse Rate Pulse Rate [Right Finger] Pulse Rate from Sp O2 Sensor Respiratory Rate Respiratory Effort / Characteristics Respiratory Depth Respiratory Patter n Blood Pressure 86/70 L 86/70 L 86/70 L Blood Pressure [Ri ght Arm] Blood Pressure Mary n 76 76 76 Blood Pressure Mary n [Right Arm] Pulse Oximetry Oxygen Delivery Me thod Sepsis Recent Feve r Within 48 Hours Sepsis New/Unexpla ined Change in Men gilmar Status Sepsis Action Take n by Nursing 06/20/25 21:00 06/20/25 21:00 06/20/25 21:00 Temperature Temperature Source Pulse Rate Pulse Rate [Right Finger] Pulse Rate from Sp O2 Sensor Respiratory Rate Respiratory Effort / Characteristics Respiratory Depth Respiratory Patter n Blood Pressure 99/69 L 99/69 L 99/69 L Blood Pressure [Ri ght Arm] Blood Pressure Mary n 80 80 80 Blood Pressure Mary n [Right Arm] Pulse Oximetry Oxygen Delivery Me thod Sepsis Recent Feve r Within 48 Hours Sepsis New/Unexpla ined Change in Men gilmar Status Sepsis Action Take n by Nursing 06/20/25 21:00 06/20/25 21:00 06/20/25 21:00 Temperature Temperature Source Pulse Rate 94 H Pulse Rate [Right Finger] Pulse Rate from Sp O2 Sensor Respiratory Rate 23 Respiratory Effort / Characteristics Respiratory Depth Respiratory Patter n Blood Pressure 99/69 L 99/69 L Blood Pressure [Ri ght Arm] Blood Pressure Mary n 80 80 Blood Pressure Mary n [Right Arm] Pulse Oximetry Oxygen Delivery Me thod Sepsis Recent Feve r Within 48 Hours Sepsis New/Unexpla ined Change in Men gilmar Status Sepsis Action Take n by Nursing 06/20/25 21:09 06/20/25 21:10 06/20/25 21:10 Temperature Temperature Source Pulse Rate 89 Pulse Rate [Right Finger] Pulse Rate from Sp O2 Sensor 81 Respiratory Rate 28 H Respiratory Effort / Characteristics Respiratory Depth Respiratory Patter n Blood Pressure 114/81 114/81 Blood Pressure [Ri ght Arm] Blood Pressure Mary n 90 90 Blood Pressure Mary n [Right Arm] Pulse Oximetry 95 Oxygen Delivery Me thod Sepsis Recent Feve r Within 48 Hours Sepsis New/Unexpla ined Change in Men gilmar Status Sepsis Action Take n by Nursing 06/20/25 21:10 06/20/25 21:10 06/20/25 21:10 Temperature Temperature Source Pulse Rate Pulse Rate [Right Finger] Pulse Rate from Sp O2 Sensor Respiratory Rate Respiratory Effort / Characteristics Respiratory Depth Respiratory Patter n Blood Pressure 114/81 114/81 114/81 Blood Pressure [Ri ght Arm] Blood Pressure Mary n 90 90 90 Blood Pressure Mary n [Right Arm] Pulse Oximetry Oxygen Delivery Me thod Sepsis Recent Feve r Within 48 Hours Sepsis New/Unexpla ined Change in Men gilmar Status Sepsis Action Take n by Nursing 06/20/25 21:12 06/20/25 21:21 06/20/25 21:21 Temperature Temperature Source Pulse Rate 94 H Pulse Rate [Right Finger] Pulse Rate from Sp O2 Sensor Respiratory Rate 28 H Respiratory Effort / Characteristics Respiratory Depth Respiratory Patter n Blood Pressure 85/58 L 85/58 L Blood Pressure [Ri ght Arm] Blood Pressure Mary n 60 60 Blood Pressure Mary n [Right Arm] Pulse Oximetry Oxygen Delivery Me thod Sepsis Recent Feve r Within 48 Hours Sepsis New/Unexpla ined Change in Men gilmar Status Sepsis Action Take n by Nursing 06/20/25 21:21 06/20/25 21:21 06/20/25 21:21 Temperature Temperature Source Pulse Rate Pulse Rate [Right Finger] Pulse Rate from Sp O2 Sensor Respiratory Rate Respiratory Effort / Characteristics Respiratory Depth Respiratory Patter n Blood Pressure 85/58 L 85/58 L 85/58 L Blood Pressure [Ri ght Arm] Blood Pressure Mary n 60 60 60 Blood Pressure Mary n [Right Arm] Pulse Oximetry Oxygen Delivery Me thod Sepsis Recent Feve r Within 48 Hours Sepsis New/Unexpla ined Change in Men gilmar Status Sepsis Action Take n by Nursing 06/20/25 21:21 06/20/25 21:30 06/20/25 21:30 Temperature Temperature Source Pulse Rate 90 91 H Pulse Rate [Right Finger] Pulse Rate from Sp O2 Sensor 90 90 Respiratory Rate 25 H 22 Respiratory Effort / Characteristics Respiratory Depth Respiratory Patter n Blood Pressure 92/64 L Blood Pressure [Ri ght Arm] Blood Pressure Mary n 69 Blood Pressure Mary n [Right Arm] Pulse Oximetry 94 93 Oxygen Delivery Me thod Sepsis Recent Feve r Within 48 Hours Sepsis New/Unexpla ined Change in Men gilmar Status Sepsis Action Take n by Nursing 06/20/25 21:30 06/20/25 21:30 06/20/25 21:30 Temperature Temperature Source Pulse Rate Pulse Rate [Right Finger] Pulse Rate from Sp O2 Sensor Respiratory Rate Respiratory Effort / Characteristics Respiratory Depth Respiratory Patter n Blood Pressure 92/64 L 92/64 L 92/64 L Blood Pressure [Ri ght Arm] Blood Pressure Mary n 69 69 69 Blood Pressure Mary n [Right Arm] Pulse Oximetry Oxygen Delivery Me thod Sepsis Recent Feve r Within 48 Hours Sepsis New/Unexpla ined Change in Men gilmar Status Sepsis Action Take n by Nursing 06/20/25 21:30 06/20/25 21:39 06/20/25 21:40 Temperature Temperature Source Pulse Rate 91 H Pulse Rate [Right Finger] Pulse Rate from Sp O2 Sensor 92 H Respiratory Rate 25 H Respiratory Effort / Characteristics Respiratory Depth Respiratory Patter n Blood Pressure 92/64 L 80/56 L Blood Pressure [Ri ght Arm] Blood Pressure Mary n 69 70 Blood Pressure Mary n [Right Arm] Pulse Oximetry 93 Oxygen Delivery Me thod Sepsis Recent Feve r Within 48 Hours Sepsis New/Unexpla ined Change in Men gilmar Status Sepsis Action Take n by Nursing 06/20/25 21:40 06/20/25 21:40 06/20/25 21:42 Temperature Temperature Source Pulse Rate 93 H Pulse Rate [Right Finger] Pulse Rate from Sp O2 Sensor 93 H Respiratory Rate 22 Respiratory Effort / Characteristics Respiratory Depth Respiratory Patter n Blood Pressure 80/56 L 80/56 L Blood Pressure [Ri ght Arm] Blood Pressure Mary n 70 70 Blood Pressure Mary n [Right Arm] Pulse Oximetry 93 Oxygen Delivery Me thod Sepsis Recent Feve r Within 48 Hours Sepsis New/Unexpla ined Change in Men gilmar Status Sepsis Action Take n by Nursing 06/20/25 21:48 06/20/25 21:50 06/20/25 21:50 Temperature Temperature Source Pulse Rate 95 H Pulse Rate [Right Finger] Pulse Rate from Sp O2 Sensor 95 H Respiratory Rate 25 H Respiratory Effort / Characteristics Respiratory Depth Respiratory Patter n Blood Pressure 103/71 103/71 Blood Pressure [Ri ght Arm] Blood Pressure Mary n 92 92 Blood Pressure Mary n [Right Arm] Pulse Oximetry 96 Oxygen Delivery Me thod Sepsis Recent Feve r Within 48 Hours Sepsis New/Unexpla ined Change in Men gilmar Status Sepsis Action Take n by Nursing 06/20/25 21:50 06/20/25 21:50 06/20/25 21:50 Temperature Temperature Source Pulse Rate Pulse Rate [Right Finger] Pulse Rate from Sp O2 Sensor Respiratory Rate Respiratory Effort / Characteristics Respiratory Depth Respiratory Patter n Blood Pressure 103/71 103/71 103/71 Blood Pressure [Ri ght Arm] Blood Pressure Mary n 92 92 92 Blood Pressure Mary n [Right Arm] Pulse Oximetry Oxygen Delivery Me thod Sepsis Recent Feve r Within 48 Hours Sepsis New/Unexpla ined Change in Men gilmar Status Sepsis Action Take n by Nursing 06/20/25 21:51 06/20/25 22:00 06/20/25 22:00 Temperature Temperature Source Pulse Rate 98 H 96 H Pulse Rate [Right Finger] Pulse Rate from Sp O2 Sensor 98 H 97 H Respiratory Rate 21 27 H Respiratory Effort / Characteristics Respiratory Depth Respiratory Patter n Blood Pressure 86/58 L Blood Pressure [Ri ght Arm] Blood Pressure Mary n 68 Blood Pressure Mray n [Right Arm] Pulse Oximetry 97 98 Oxygen Delivery Me thod Sepsis Recent Feve r Within 48 Hours Sepsis New/Unexpla ined Change in Men gilmar Status Sepsis Action Take n by Nursing 06/20/25 22:00 06/20/25 22:00 06/20/25 22:00 Temperature Temperature Source Pulse Rate Pulse Rate [Right Finger] Pulse Rate from Sp O2 Sensor Respiratory Rate Respiratory Effort / Characteristics Respiratory Depth Respiratory Patter n Blood Pressure 86/58 L 86/58 L 86/58 L Blood Pressure [Ri ght Arm] Blood Pressure Mary n 68 68 68 Blood Pressure Mary n [Right Arm] Pulse Oximetry Oxygen Delivery Me thod Sepsis Recent Feve r Within 48 Hours Sepsis New/Unexpla ined Change in Men gilmar Status Sepsis Action Take n by Nursing 06/20/25 22:00 06/20/25 22:09 06/20/25 22:10 Temperature Temperature Source Pulse Rate 94 H Pulse Rate [Right Finger] Pulse Rate from Sp O2 Sensor 96 H Respiratory Rate 25 H Respiratory Effort / Characteristics Respiratory Depth Respiratory Patter n Blood Pressure 86/58 L 92/68 L Blood Pressure [Ri ght Arm] Blood Pressure Mary n 68 78 Blood Pressure Mary n [Right Arm] Pulse Oximetry 99 Oxygen Delivery Me thod Sepsis Recent Feve r Within 48 Hours Sepsis New/Unexpla ined Change in Men gilmar Status Sepsis Action Take n by Nursing 06/20/25 22:10 06/20/25 22:10 06/20/25 22:10 Temperature Temperature Source Pulse Rate Pulse Rate [Right Finger] Pulse Rate from Sp O2 Sensor Respiratory Rate Respiratory Effort / Characteristics Respiratory Depth Respiratory Patter n Blood Pressure 92/68 L 92/68 L 92/68 L Blood Pressure [Ri ght Arm] Blood Pressure Mary n 78 78 78 Blood Pressure Mary n [Right Arm] Pulse Oximetry Oxygen Delivery Me thod Sepsis Recent Feve r Within 48 Hours Sepsis New/Unexpla ined Change in Men gilmar Status Sepsis Action Take n by Nursing 06/20/25 22:10 06/20/25 22:12 06/20/25 22:18 Temperature Temperature Source Pulse Rate 98 H 93 H Pulse Rate [Right Finger] Pulse Rate from Sp O2 Sensor 98 H 93 H Respiratory Rate 21 22 Respiratory Effort / Characteristics Respiratory Depth Respiratory Patter n Blood Pressure 92/68 L Blood Pressure [Ri ght Arm] Blood Pressure Mary n 78 Blood Pressure Mary n [Right Arm] Pulse Oximetry 97 98 Oxygen Delivery Me thod Sepsis Recent Feve r Within 48 Hours Sepsis New/Unexpla ined Change in Men gilmar Status Sepsis Action Take n by Nursing 06/20/25 22:20 06/20/25 22:20 06/20/25 22:20 Temperature Temperature Source Pulse Rate Pulse Rate [Right Finger] Pulse Rate from Sp O2 Sensor Respiratory Rate Respiratory Effort / Characteristics Respiratory Depth Respiratory Patter n Blood Pressure 78/56 L 78/56 L 78/56 L Blood Pressure [Ri ght Arm] Blood Pressure Mary n 65 65 65 Blood Pressure Mary n [Right Arm] Pulse Oximetry Oxygen Delivery Me thod Sepsis Recent Feve r Within 48 Hours Sepsis New/Unexpla ined Change in Men gilmar Status Sepsis Action Take n by Nursing 06/20/25 22:20 06/20/25 22:20 06/20/25 22:21 Temperature Temperature Source Pulse Rate 102 H Pulse Rate [Right Finger] Pulse Rate from Sp O2 Sensor 91 H Respiratory Rate 20 Respiratory Effort / Characteristics Respiratory Depth Respiratory Patter n Blood Pressure 78/56 L 78/56 L Blood Pressure [Ri ght Arm] Blood Pressure Mary n 65 65 Blood Pressure Mary n [Right Arm] Pulse Oximetry 98 Oxygen Delivery Me thod Sepsis Recent Feve r Within 48 Hours Sepsis New/Unexpla ined Change in Men gilmar Status Sepsis Action Take n by Nursing 06/20/25 22:30 06/20/25 22:30 06/20/25 22:30 Temperature Temperature Source Pulse Rate Pulse Rate [Right Finger] Pulse Rate from Sp O2 Sensor Respiratory Rate Respiratory Effort / Characteristics Respiratory Depth Respiratory Patter n Blood Pressure 86/53 L 86/53 L 86/53 L Blood Pressure [Ri ght Arm] Blood Pressure Mary n 63 63 63 Blood Pressure Mary n [Right Arm] Pulse Oximetry Oxygen Delivery Me thod Sepsis Recent Feve r Within 48 Hours Sepsis New/Unexpla ined Change in Men gilmar Status Sepsis Action Take n by Nursing 06/20/25 22:30 06/20/25 22:30 06/20/25 22:30 Temperature Temperature Source Pulse Rate 95 H Pulse Rate [Right Finger] Pulse Rate from Sp O2 Sensor 97 H Respiratory Rate 20 Respiratory Effort / Characteristics Respiratory Depth Respiratory Patter n Blood Pressure 86/53 L 86/53 L Blood Pressure [Ri ght Arm] Blood Pressure Mary n 63 63 Blood Pressure Mary n [Right Arm] Pulse Oximetry 97 Oxygen Delivery Me thod Sepsis Recent Feve r Within 48 Hours Sepsis New/Unexpla ined Change in Men gilmar Status Sepsis Action Take n by Nursing 06/20/25 22:40 06/20/25 23:00 06/20/25 23:00 Temperature Temperature Source Pulse Rate 96 H 93 H Pulse Rate [Right Finger] 90 Pulse Rate from Sp O2 Sensor 91 H Respiratory Rate 21 19 17 Respiratory Effort / Characteristics Non-Labored Sponta neous Respiratory Depth Normal Respiratory Patter n Regular Blood Pressure 85/55 L 85/58 L Blood Pressure [Ri ght Arm] 75/49 L Blood Pressure Mary n 62 67 Blood Pressure Mary n [Right Arm] 57 Pulse Oximetry 97 97 96 Oxygen Delivery Me thod Room Air Room Air Sepsis Recent Feve r Within 48 Hours Sepsis New/Unexpla ined Change in Men gilmar Status Sepsis Action Take n by Nursing 06/20/25 23:11 06/20/25 23:12 06/20/25 23:15 Temperature Temperature Source Pulse Rate 89 90 84 Pulse Rate [Right Finger] Pulse Rate from Sp O2 Sensor Respiratory Rate 16 17 18 Respiratory Effort / Characteristics Respiratory Depth Respiratory Patter n Blood Pressure 80/52 L 75/49 L Blood Pressure [Ri ght Arm] Blood Pressure Mary n 55 54 Blood Pressure Mary n [Right Arm] Pulse Oximetry 97 98 Oxygen Delivery Me thod Room Air Room Air Sepsis Recent Feve r Within 48 Hours Sepsis New/Unexpla ined Change in Men gilmar Status Sepsis Action Take n by Nursing 06/20/25 23:23 06/20/25 23:23 06/20/25 23:30 Temperature Temperature Source Pulse Rate 93 H 73 Pulse Rate [Right Finger] Pulse Rate from Sp O2 Sensor 72 Respiratory Rate 19 17 Respiratory Effort / Characteristics Respiratory Depth Respiratory Patter n Blood Pressure 81/52 L 81/52 L 117/74 Blood Pressure [Ri ght Arm] Blood Pressure Mary n 58 58 88 Blood Pressure Mary n [Right Arm] Pulse Oximetry 97 97 Oxygen Delivery Me thod Room Air Room Air Sepsis Recent Feve r Within 48 Hours Sepsis New/Unexpla ined Change in Men gilmar Status Sepsis Action Take n by Nursing 06/20/25 23:39 Temperature Temperature Source Pulse Rate 97 H Pulse Rate [Right Finger] Pulse Rate from Sp O2 Sensor Respiratory Rate Respiratory Effort / Characteristics Respiratory Depth Respiratory Patter n Blood Pressure Blood Pressure [Ri ght Arm] Blood Pressure Mary n Blood Pressure Mary n [Right Arm] Pulse Oximetry Oxygen Delivery Me thod Sepsis Recent Feve r Within 48 Hours Sepsis New/Unexpla ined Change in Men gilmar Status Sepsis Action Take n by Nursing Physical Exam: Physical Exam GENERAL: Ill-appearing. HENT: Exam performed. EYES: Conjunctivae and EOM are normal. Right eye exhibits no discharge. Left eye exhibits no discharge. No scleral icterus. NECK: Normal range of motion. Neck supple. No JVD present. CV: Normal rate, regular rhythm, normal heart sounds and intact distal pulses. There is no peripheral edema. Palpable radial pulses bue. PULM/CHEST: Effort normal and breath sounds normal. No respiratory distress. No stridor. no wheezes. no rales. ABD: The abdomen is soft. There is no distention. Pain on palpation of the left lower quadrant and left upper quadrant. No guarding or rigidity. No rebound tenderness. Suprapubic catheter in place. Procedures FAST Exam FAST Exam 1: Fluid in Morison's pouch: No Fluid in Splenorenal Junction: No Fluid around bladder, Transverse view: No Fluid around bladder, Sagittal view: No Fluid in Pericardial Sac: No Gross Wall Motion Abnormality: No Additional Comments: Bedside MONTIEL protocol showed no pneumothorax bilaterally, no AAA, flat IVC, no free fluid in the abdomen. Course Course 1929: The patient was evaluated in room B9. A complete history and physical exam was performed Cardiac monitoring: An order was placed for continuous cardiac monitoring. The monitor shows a rate of 100 with sinus rhythm interpreted by me Patient hypotensive on arrival. Bedside MONTIEL protocol showed no pneumothorax bilaterally, no AAA, flat IVC, no free fluid in the abdomen. Normal saline bolus and sepsis protocols initiated for the patient. 1950: Patient's blood pressure improving with IV fluids. 5: Nursing informed him that the patient becoming hypotensive again. Additional 1.5 L normal saline ordered for the patient. 2244: Blood pressure improved with normal saline bolus. Labs show leukocytosis 17.29 hemoglobin 11.5 potassium 3.3 lactate 1.5 magnesium within normal limits. Urinalysis does appear to be source of infection. Patient was treated with Zosyn. CT abdomen pelvis is unremarkable with exception of constipation. [facility]. Administered Medications Discontinued Medications Sodium Chloride (Nss) 1,000 mls @ 999 mls/hr IV .Q1H1M ONE Stop: 06/20/25 20:44 Last Infusion: 06/20/25 21:01 Dose: Infused Documented By: hesham Admin: 06/20/25 19:52 Dose: 999 mls/hr Documented By: hesham Piperacillin Sod/Tazobactam Sod (Zosyn) 4.5 gm in 120 mls @ 240 mls/hr IV NOW ONE Stop: 06/20/25 21:36 Last Infusion: 06/20/25 21:44 Dose: Infused Documented By: hesham Admin: 06/20/25 21:17 Dose: 240 mls/hr Documented By: hesham Acetaminophen (Ofirmev) 1,000 mg in 100 mls @ 400 mls/hr IV NOW STA Stop: 06/20/25 21:33 Last Infusion: 06/20/25 22:44 Dose: Infused Documented By: hesham Admin: 06/20/25 21:40 Dose: 400 mls/hr Documented By: hesham Sodium Chloride (Nss) 1,000 mls @ 999 mls/hr IV .Q1H1M ONE Stop: 06/21/25 00:25 Last Admin: 06/20/25 23:25 Dose: 999 mls/hr Documented By: BEENA Sodium Chloride (Nss) 500 mls @ 999 mls/hr IV .Q31M ONE Stop: 06/20/25 23:55 Last Admin: 06/20/25 23:25 Dose: 999 mls/hr Documented By: BEENA Ioversol (Optiray 320 100ml) 90 ml IV ONCE ONE Stop: 06/20/25 20:04 Last Admin: 06/20/25 20:04 Dose: 90 ml Documented By: JOELLEN Ketorolac Tromethamine (Ketorolac Tromethamine 15 Mg/Ml Vial) 15 mg IV NOW STA Stop: 06/20/25 23:20 Last Admin: 06/20/25 23:25 Dose: 15 mg Documented By: BEENA Medical Decision Making Laboratory Data Attestation: I reviewed the patient's lab results. 06/20/25 19:33 06/20/25 19:33 Lab Results 06/20/25 06/20/25 06/20/25 Range/Units 19:33 19:47 19:49 WBC 17.29 H (4.8-10.8) K/ul RBC 4.73 (4.70-6.10) M/uL Hgb 11.5 L (14.0-18.0) g/dL POC Hgb 11.6 L (14.0-18.0) g/dl Hct 35.5 L (42.0-52.0) % POC Hct 34 L (42-52) % MCV 75.1 L (80.0-100.0) fL MCH 24.3 L (25.0-34.0) pg MCHC 32.4 (32.0-36.0) g/dL RDW Std Deviation 53.1 H (36.4-46.3) fL RDW Coeff of [place] 19.9 H (11.5-14.5) % Plt Count 203 (130-400) K/uL MPV 8.9 L (9.4-12.4) fL Immature Gran % (Auto) 0.8 % Neut % (Auto) 95.9 % Lymph % (Auto) 0.8 % [place] % (Auto) 2.3 % Eos % (Auto) 0.0 % Baso % (Auto) 0.2 % Neut # (Auto) 16.60 H (1.40-6.50) K/uL Lymph # (Auto) 0.13 L (1.20-3.40) K/uL [place] # (Auto) 0.39 (0.11-0.59) K/uL Eos # (Auto) 0.00 (0.00-0.50) K/uL Baso # (Auto) 0.03 (0.00-0.20) K/uL Immature Gran # (Auto) 0.14 (0.01-0.20) K/uL Anisocytosis Present POC Sodium 139 (135-144) mmol/L Sodium 139 (136-145) mmol/L POC Potassium 3.2 L (3.3-5.0) mmol/L Potassium 3.3 L (3.5-5.1) mmol/L POC Chloride 107 (101-112) mmol/L Chloride 105 (98-107) mmol/L Carbon Dioxide 22 (21-32) mmol/L POC Total CO2 19 L (24-31) mmol/L Anion Gap 12 H (3-11) POC Anion Gap 18.0 (16-25) mmol/L POC BUN 15 (7-18) mg/dl BUN 17 (6-23) mg/dl Creatinine 0.91 (0.6-1.4) mg/dl POC Creatinine 1.0 (0.6-1.3) mg/dl Est Cr Clr Drug Dosing 109.6 ml/min eGFR 103.96 BUN/Creatinine Ratio 18.7 (10-20) Glucose 131 H (70-99(Fasting)) mg/dl POC Glucose (other) 138 H (70-99) mg/dl Lactate 1.5 (0.4-2.0) mmol/L Calcium 9.3 (8.6-10.3) mg/dl POC Ioniz Calcium Maddi 1.14 (1.12-1.32) mmol/l Magnesium 1.8 (1.7-2.4) mg/dl Total Bilirubin 1.0 (0.2-1.0) mg/dl Direct Bilirubin 0.2 (0-0.2) mg/dl AST 29 (13-39) U/L ALT 20 (7-52) U/L Alkaline Phosphatase 168 H (34-104) U/L Total Protein 6.9 (6.0-8.3) gm/dl Albumin 3.7 (3.4-5.0) gm/dl Lipase 13 (11-82) U/L Urine Color Yellow Urine Appearance Cloudy A (Clear) Urine pH 6.5 (4.5-7.5) Ur Specific [place] 1.010 (1.000-1.030) Urine Protein 3+ H (Negative) Urine Glucose (UA) Negative (Negative) Urine Ketones 1+ H (Negative) Urine Blood 3+ H (Negative) Urine Nitrite Negative (Negative) Urine Bilirubin 1+ H (Negative) Urine Urobilinogen Negative (Negative) Ur Leukocyte Esterase 1+ H (Negative) Urine RBC 11-20 H (0-2) /hpf Urine WBC >50 H (0-5) /hpf Ur Epithelial Cells 0-2 (0-2) /hpf Urine Bacteria 3+ H (None Seen) Hyaline Casts Present A (None Presnt) /lpf Urine Yeast Present A (None Prsent) Urine Comment Imaging Data Attestation: I personally reviewed and interpreted this imaging study as follows: My Impression: Chest x-ray: No infiltrate no free air under the diaphragm Radiologist's Impression: Abdomen/Pelvis CT 06/20/25 19:40 Exam(s): CT ABDOMEN + PELVIS With Contrast IV Amt: 90 ml optiray 320 EXAM: CT Abdomen and Pelvis With Intravenous Contrast CLINICAL HISTORY: Reason for exam: abd pain. TECHNIQUE: Axial computed tomography images of the abdomen and pelvis with intravenous contrast. CTDI is 33 mGy and DLP is 1854 mGy-cm. Automated exposure control was utilized for the study. A dose lowering technique was utilized adhering to the principles of ALARA. Moderate breathing/motion and artifact from fusion hardware in the arms which are also in the field of view. CONTRAST: Patient received 90 ml optiray 320 of IV contrast COMPARISON: CT abdomen pelvis 03/21/2025. FINDINGS: Lung bases: Stable linear scarring posterior costophrenic angles. Liver: Unremarkable. Gallbladder and bile ducts: Stable cholecystectomy. No ductal dilation. Pancreas: No ductal dilation, or acute pancreatitis. Spleen: Unremarkable. Adrenals: Unremarkable. Kidneys and ureters: Non obstructing stones left kidney, 1 of which has cleared. Stable hyperdense cyst or calcification right lower pole, non-obstructing No pyelonephritis or hydronephrosis. Stomach and bowel: Moderate fecal loading/impaction in the rectosigmoid and fecal loading of the colon, has progressed. No surrounding inflammation or obvious wall thickening to suggest an acute proctitis or stercoral colitis. No obstruction. Appendix: No acute appendicitis. Intraperitoneal space: No free air or fluid. Bones/joints: No acute fracture. Soft tissues: Unremarkable. Vasculature: No aortic aneurysm. Lymph nodes: No enlarged lymph nodes. Bladder: Collapsed by suprapubic catheter. Minimal calcification in the right posterior bladder. Reproductive: Unremarkable as visualized. IMPRESSION: 1. Fecal loading/impaction in the rectosigmoid, without clear signs of acute inflammation. 2. Non obstructing renal stones, and minimal bladder calcification. 3. Moderate artifact limits evaluation. Electronically signed by: Lauren Alejandro M.D. 06/20/25 23:20 PM Chest X-Ray 06/20/25 19:40 Exam: Chest portable. Reason for exam: Abdominal pain. Previous studies: 06/20/2025 at 0528 hours. FINDINGS: The right CVP line is again seen unchanged in position. Cardiac size remains normal. Mild linear atelectasis is again present in the lower lung zones. Decubitus views are obtained. No significant pleural effusion seen. IMPRESSION: Stable appearance. Bowel linear atelectasis lower lobes. Otherwise no new acute disease seen at this time. Electronically signed by Kareem Ibarra 06-20-2025 8:54 PM ECG Data Attestation: I personally reviewed and interpreted this ECG as follows: Rate (beats per minute): 80 Rhythm: normal sinus Findings: no ST depression, no ST elevation or no prolonged QT MDM Narrative 1930: The patient was evaluated in room B9. A complete history and physical exam was performed Cardiac monitoring: An order was placed for continuous cardiac monitoring. The monitor shows a rate of 100 with sinus rhythm interpreted by me Patient hypotensive on arrival. Bedside MONTIEL protocol showed no pneumothorax bilaterally, no AAA, flat IVC, no free fluid in the abdomen. Normal saline bolus and sepsis protocols initiated for the patient. 1950: Patient's blood pressure improving with IV fluids. 2214: Nursing informed him that the patient becoming hypotensive again. Additional 1.5 L normal saline ordered for the patient. 2244: Blood pressure improved with normal saline bolus. Labs show leukocytosis 17.29 hemoglobin 11.5 potassium 3.3 lactate 1.5 magnesium within normal limits. Urinalysis does appear to be source of infection. Patient was treated with Zosyn. CT abdomen pelvis is unremarkable with exception of constipation. [facility] Impression & Plan Acute UTI, Sepsis Discharge Plan Visit Data Chief Complaint: Abdominal Pain Stated Complaint: Abdominal Pain ED Provider: Dominic Trejo Discharge Problem: Acute UTI, Sepsis Patient Disposition: Admitted As Inpatient Condition: Serious Forms Stand Alone Forms: [facility] Prescriptions Prescriptions: No Action melatonin 3 mg capsule 3 mg PO HS Patient Comments: Unable to verify OTC meds at this date/time. 04/30/25 acetaminophen 325 mg Tablet 650 mg PO Q6 PRN (Reason: Fever Or Pain) Rx Instructions: use for mild pain or fever >38c (100.5f) ondansetron 4 mg tablet,disintegrating 4 mg translingual Q6 PRN (Reason: Nausea) sodium chloride 0.9 % (flush) Syringe 10 ml IV DIRECTED Rx Instructions: administer before and after IV drug administration as part of [facility] protocol heparin, porcine (PF) [Heparin LockFlush(Porcine)(PF)] 100 unit/mL Syringe 500 unit IV DIRECTED vancomycin 2 gram Recon Soln 2 g IV DIRECTED Rx Instructions: ON MED LIST oxycodone 15 mg tablet 15 mg PO Q4H PRN (Reason: severe pain (scale score 7-10)) Qty: 40 0RF Rx Instructions: Take one tablet by mouth as needed for severe pain albuterol sulfate 2.5 mg /3 mL (0.083 %) Solution For Nebulization 1.25 mg INHALATION Q4H PRN (Reason: Shortness Of Breath Or Wheezing) Patient Comments: 03/21- no fill history unable to verify oxybutynin chloride 10 mg tablet extended release 24hr 10 mg PO QAM sennosides-docusate sodium [Senexon-S] 8.6-50 mg tablet 2 tab PO HS Patient Comments: Unable to verify OTC meds at this date/time. 04/30/25 Rx Instructions: hold for loose stool bisacodyl 10 mg suppository 10 mg MA QAM Rx Instructions: hold for loose stool docusate sodium 100 mg capsule 100 mg PO AMPM PRN (Reason: Constipation) hydroxyzine HCl 25 mg tablet 25 mg PO DAILY PRN (Reason: Anxiety) midodrine 10 mg tablet 10 mg PO TID PRN (Reason: Hypotension) Rx Instructions: PRN SBP< 90 lactulose 10 gram/15 mL solution 0 g PO TID Patient Comments: Original Directions: 20g by mouth TID. Unable to verify if pt still taking. Not on file w/ pharmacy. - 04/30/25 budesonide-formoterol 160-4.5 mcg/actuation HFA aerosol inhaler 2 puff INHALATION [facility] Patient Comments: 03/21- last filled 05/22/24 30 day supply Spiriva Respimat 2.5 mcg/actuation mist 2 puff INHALATION QAM Patient Comments: Original Directions: 2 puffs every morning. Last filled 10/2024 x30 day supply. Unable to verify if pt still taking. - 04/30/25 baclofen 10 mg tablet 20 mg PO TID Patient Comments: Original Directions: 20mg by mouth TID. Unable to verify if pt still taking. - 04/30/25 pantoprazole 40 mg tablet,delayed release (DR/EC) 40 mg PO QAM levetiracetam 1,000 mg tablet 1,000 mg PO AMHS Eliquis 5 mg tablet 5 mg PO AMHS nortriptyline 25 mg Capsule 50 mg PO HS Qty: 30 0RF Rx Instructions: Take two capsules by mouth every night duloxetine 60 mg Capsule,Delayed Release(Dr/Ec) 60 mg PO QAM Qty: 30 0RF Rx Instructions: Take one capsule by mouth every day pregabalin [Lyrica] 75 mg Capsule 75 mg PO TID Qty: 90 0RF Rx Instructions: morning,noon and before bedtime ferrous sulfate 325 mg (65 mg iron) tablet 325 mg PO Q OTHER DAY Qty: 30 0RF Hold Instructions: Resume on 05/15/25. Rx Instructions: Take one tablet by mouth every other day Referrals Referrals: Chay Aguilar DO [Primary Care Provider] - Discharge Problem: Sepsis Qualifiers: Sepsis type: sepsis due to unspecified organism Sepsis acute organ dysfunction status: without acute organ dysfunction Qualified Code(s): A41.9 - Sepsis, unspecified organism
[2025-06-21] MEDS: POTASSIUM CHLORIDE PWD 20 MEQ PACK PO STA (01:36)
[2025-06-21] MEDS: NSS + 20MEQ KCL 20 MEQ/1,000 ML BAG IV STA (01:37)
[2025-06-21] MEDS: NICOTINE 14 MG/24 HR PATCH TD STA (01:38)
[2025-06-21] MEDS: MEROPENEM 500 MG in SYRINGE 0 ML IV STA (01:38)
[2025-06-21] MEDS: PROMETHAZINE 6.25 MG/50.25 ML BAG IV PRN (03:30)
[2025-06-21] MEDS: MIDODRINE HCL 10 MG TAB PO STA (03:33)
[2025-06-21] MEDS: APIXABAN 5 MG TABLET PO STA (03:33)
[2025-06-21] MEDS: levETIRAcetam 500 MG TAB PO SCH (03:33)
[2025-06-21] MEDS: PROMETHAZINE 6.25 MG/50.25 ML BAG IV STA (03:35)
--- NOTE | 2025-06-21 03:43 | Communication Note ---
Date of Service: June 21, 2025 Made aware by RN of yeast growth on blood cultures 1 bottle drawn from [facility] ER visit yesterday morning. 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
[2025-06-21] MEDS: CASPOFUNGIN 70 MG in SODIUM CHLORIDE 0.9% 250 ML IV ONE (03:49)
[2025-06-21] MEDS: DAPTOmycin 600 MG in SYRINGE 0 ML IV SCH (04:06)
[2025-06-21 04:08] LABS: Hematocrit (blood only) 30.8 % (42.0-52.0); Hemoglobin 9.9 g/dL (14.0-18.0); Mean Corpuscular Hemoglobin 24.3 pg (25.0-34.0); Mean Corpuscular Volume 75.5 fL (80.0-100.0); Platelet Count 192 K/uL (130-400); RDW Standard Deviation 54.3 fL (36.4-46.3); Red Blood Count 4.08 M/uL (4.70-6.10); White Blood Count 12.34 K/ul (4.8-10.8)
[2025-06-21 04:24] LABS: Anion Gap 9.0 (3-11); Blood Urea Nitrogen 16.0 mg/dl (6-23); Calcium 8.2 mg/dl (8.6-10.3); Carbon Dioxide 22.0 mmol/L (21-32); Chloride 109.0 mmol/L (98-107); Creatinine Clr Calc Pharmacy 143.1 ml/min; Glucose 114.0 mg/dl (70-99(Fasting)); Potassium 3.1 mmol/L (3.5-5.1); Sodium 140.0 mmol/L (136-145)
[2025-06-21 04:59] LABS: Immature Granulocytes # (auto) 0.06 K/uL (0.01-0.20); Immature Granulocytes % (auto) 0.5 %; Toxic Granulation 1+; Toxic Vacuolation 2+
[2025-06-21] MEDS: MEROPENEM 500 MG in SYRINGE 0 ML IV SCH (05:22)
[2025-06-21] MEDS ORDERED: POLYETHYLENE (MIRALAX) 17 GM PACK PO PRN (08:40)
[2025-06-21] MEDS: REMOVE NICODERM PATCH SCH (08:47)
[2025-06-21] MEDS: NICOTINE 14 MG/24 HR PATCH TD SCH (08:47)
[2025-06-21] MEDS: DOCUSATE SODIUM/SENNA 50/8.6MG TAB PO SCH (08:48)
[2025-06-21] MEDS: PREGABALIN 75 MG CAP PO SCH (08:48)
[2025-06-21] MEDS: POTASSIUM CHLORIDE 10 MEQ TABCR PO ONE (08:48)
[2025-06-21] MEDS: BACLOFEN 10 MG TAB PO SCH (08:48)
[2025-06-21] MEDS: LACTULOSE SYRUP 20 GM/30 ML UDC PO SCH (08:49)
[2025-06-21] MEDS: FLUTICASONE/VILANTEROL 100/25MCG 14 PUFFS/INHALER INH SCH (08:49)
[2025-06-21] MEDS: MULTIVITAMIN CHEWABLE TAB PO SCH (08:49)
[2025-06-21] MEDS: MIDODRINE HCL 10 MG TAB PO SCH (08:50)
[2025-06-21] MEDS: OXYBUTYNIN CHLORIDE XL 5 MG TABCR PO SCH (08:51)
[2025-06-21] MEDS: APIXABAN 5 MG TABLET PO SCH (08:51)
[2025-06-21] MEDS: IBUPROFEN 200 MG TAB PO ONE (08:56)
[2025-06-21] MEDS: SIMETHICONE 80 MG CHEW PO SCH (08:56)
[2025-06-21] MEDS ORDERED: DOCUSATE SODIUM/SENNA 50/8.6MG TAB PO SCH (09:00)
--- NOTE | 2025-06-21 09:58 | Infectious Disease Consult ---
Date of Service June 21, 2025 Telehealth Information I performed this visit using a real-time telehealth connection between my location and the patients location ([facility]). After connecting through interactive tele-video, patient was identified by name and date of and/or wristband check.Patient (or authorized healthcare sales representative metals) was informed that this was a telemedicine visit and it was being conducted confidentially over secure lines. My office door was closed and no one else was present in the room with me.Patient (or authorized healthcare sales representative metals) provided consent to proceed with the visit, expressed an understanding of privacy and security of the telemedicine visit, and gave permission to have a hospital sales representative metals in the room in order to assist with the visit and to conduct portions of the visit, as needed. I informed the patient (or authorized healthcare sales representative metals) that I reviewed their record and presented the opportunity for them to ask any questions regarding the visit today. The patient agreed to participate. fungemia Assessment & Plan (1) Pressure ulcer of left foot, stage 4: Plan: Wound evaluation (2) Quadriplegia: Plan: supportive care (3) Fungemia: Plan: continue caspofungin and repeat blood cultures and obtain a TTE Plan Recommend continuing caspofungin and repeating blood cultures to document clearance.Obtain a TTE to assist in ruling out endocarditis and please discontinue meropenem and daptomycin as it will not provide coverage for his fungemia .If there is concern for his sacral decubitus recommend a wound evaluation. 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), recurrent UTI secondary to neurogenic bladder with chronic indwelling suprapubic catheter, autonomic dysreflexia, seizure disorder, history of PRES, HCV status post Rx, chronic anemia (baseline hemoglobin 9-10), chronic sacral osteomyelitis , left foot osteomyelitis status post antibiotic Rx, chronic pain, anxiety/mood disorder, substance abuse as per records, history of MRSA, history ESBL.Patient was broght from [facility] after he reported nt feeling well.His cathter was exchanged 1 week ago and although he had completed his antibiotics for his left foot osteomyelitis he still has his tunnel line in place .Blood cultures were drawn and have grown yeast and he is on meropenem ,daptomycin and caspofungin Allergies Allergy/AdvReac Type Severity Reaction Status Date / Time Opioids - Morphine Analogues AdvReac Severe severe Verified 04/26/25 01:40 bradycardia cefepime AdvReac Intermediate seizures Verified 04/26/25 20:11 Home Medications Medication Instructions Recorded Confirmed Type albuterol sulfate 2.5 mg/3 mL 1.25 mg inhalation Q4H PRN 08/26/24 06/21/25 History (0.083 %) solution for nebulization Shortness Of Breath Or Wheezing baclofen 10 mg tablet 20 mg PO TID 08/26/24 06/21/25 History bisacodyl 10 mg rectal suppository 10 mg IN QAM 08/26/24 06/21/25 History budesonide-formoterol HFA 160 2 puff inhalation AMHS 08/26/24 06/21/25 History mcg-4.5 mcg/actuation aerosol inhaler docusate sodium 100 mg capsule 100 mg PO AMPM PRN Constipation 08/26/24 06/21/25 History hydroxyzine HCl 25 mg tablet 25 mg PO DAILY PRN Anxiety 08/26/24 06/21/25 History lactulose 10 gram/15 mL oral 20 g PO TID 08/26/24 06/21/25 History solution midodrine 10 mg tablet 10 mg PO TID 08/26/24 06/21/25 History oxybutynin chloride 10 mg 10 mg PO QAM 08/26/24 06/21/25 History tablet,extended release 24 hr pantoprazole 40 mg tablet,delayed 40 mg PO QAM 08/26/24 06/21/25 History release sennosides 8.6 mg-docusate sodium 2 tab PO HS 08/26/24 06/21/25 History 50 mg tablet (Senexon-S) tiotropium bromide 2.5 2 puff inhalation QAM 08/26/24 06/21/25 History mcg/actuation mist for inhalation (Spiriva Respimat) acetaminophen 325 mg tablet 650 mg PO Q6 PRN Fever Or Pain 09/30/24 06/21/25 History ondansetron 4 mg disintegrating 4 mg translingual Q6 PRN Nausea 09/30/24 06/21/25 History tablet apixaban 5 mg tablet (Eliquis) 5 mg PO AMHS 03/21/25 06/21/25 History levetiracetam 1,000 mg tablet 1,000 mg PO AMHS 03/21/25 06/21/25 History duloxetine 60 mg capsule,delayed 60 mg PO QAM #30 caps 04/17/25 06/21/25 Rx release pregabalin 75 mg capsule (Lyrica) 75 mg PO TID #90 caps 04/17/25 06/21/25 Rx sodium chloride 0.9 % (flush) 10 ml IV DIRECTED 04/26/25 06/21/25 History oxycodone 15 mg tablet 15 mg PO Q4H PRN severe pain 04/27/25 06/21/25 Rx (scale score 7-10) #40 tabs diclofenac sodium 1 % topical gel 2 g topical QID PRN Pain 06/21/25 06/21/25 History guaifenesin 100 mg/5 mL oral liquid 200 mg PO QID PRN Cough 06/21/25 06/21/25 History heparin, porcine (PF) 10 unit/mL 10 unit IV UD 06/21/25 06/21/25 History intravenous syringe (Heparin Lock Flush (Porcine) (PF)) melatonin 3 mg capsule 3 mg PO HS 06/21/25 06/21/25 History multivitamin 1 tab PO QAM 06/21/25 06/21/25 History naloxone 0.4 mg/mL injection 0 mg intranasal UD 06/21/25 06/21/25 History solution simethicone 80 mg chewable tablet 80 mg PO TID 06/21/25 06/21/25 History Patient History Medical History Hypokalemia Breakthrough seizure Seizure Medication reaction Left-sided chest pain Drug-induced seizure Open wound of left foot Chronic osteomyelitis of sacrum Sacral decubitus ulcer, stage IV Complicated UTI (urinary tract infection) RSV (respiratory syncytial virus infection) Hypoxia Leg wound, left Leg wound, right 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 Hypoxic respiratory failure 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 Severe sepsis Chest pain Acute hypoxemic respiratory failure Change or removal of nonsurgical wound dressing Pneumonia Encephalopathy Hypotension Acute UTI Sacral wound Quadriplegia Anemia Hypomagnesemia Hypokalemia Complication, blocked suprapubic catheter Leukocytosis Acute urinary retention Hydronephrosis Abdominal pain Left sided abdominal pain Cough Pneumonia Abnormal chest CT Elevated hemidiaphragm Pneumonia involving right lung Soft tissue infection Suprapubic catheter dysfunction Aspiration pneumonia Bacteremia Acute hypotension Acute hypokalemia Abdominal pain Hypoxic respiratory failure Sepsis Acute UTI Acute UTI Abdominal pain Aspiration pneumonitis Pneumonia Paraplegia Surgical History No pertinent past surgical history Social History Smoking Status: Current every day smoker Tobacco Type: Cigarettes Cigarettes Per Day: 1/2 pack; Second Hand Exposure: No; Do You Dip or Chew Tobacco: No; Hx Alcohol Use: Yes Alcohol type: beer Hx Substance Use: Yes Non-Prescribed Medications: Crack / Cocaine and Marijuana Last Used Substance: Days (ago) Preferred Language: [place] Communication Ability: Effective Communication Ability Comment: difficulty writing Client Administrator Required: No Beliefs That Will Affect Care: None Current Living Situation: Family Current Living Situation Comment: lives with Diogenes Feels Safe at Home: Yes Safety Concerns: Feels Safe At This Time Assistive Devices: Scooter/Electric Scooter and Wheelchair Review of Systems Patient reports nausea but has not vomited Physical Exam Awake alert oriented in no respiratory distress Results & Data Vital Signs (Past 12 Hours) Vital Signs Temp Pulse Pulse Resp BP BP Pulse Ox 06/21/25 08:13 36.7 C 96 H 25 H 110/76 93 06/21/25 07:38 88 06/21/25 03:59 97 H 06/21/25 03:13 06/21/25 02:21 36.6 C 98 H 20 114/77 94 06/21/25 02:05 88 17 121/84 95 06/21/25 02:00 90 16 121/84 93 06/21/25 01:45 82 18 127/83 94 06/21/25 01:30 89 17 116/80 95 06/21/25 01:21 97 H 14 120/81 96 06/21/25 01:10 92 H 20 108/71 94 06/21/25 01:00 88 17 96/75 L 93 06/21/25 00:50 94 H 16 106/72 94 06/21/25 00:40 104/88 06/21/25 00:30 91 H 20 103/78 97 06/20/25 23:39 97 H 06/20/25 23:30 73 17 117/74 97 06/20/25 23:23 81/52 L 06/20/25 23:23 93 H 19 81/52 L 97 06/20/25 23:15 84 18 06/20/25 23:12 90 17 75/49 L 98 06/20/25 23:11 89 16 80/52 L 97 06/20/25 23:00 93 H 17 85/58 L 96 06/20/25 23:00 90 19 75/49 L 97 06/20/25 22:40 96 H 21 85/55 L 97 06/20/25 22:30 95 H 20 97 06/20/25 22:30 86/53 L 06/20/25 22:30 86/53 L 06/20/25 22:30 86/53 L 06/20/25 22:30 86/53 L 06/20/25 22:30 86/53 L 06/20/25 22:21 102 H 20 98 06/20/25 22:20 78/56 L 06/20/25 22:20 78/56 L 06/20/25 22:20 78/56 L 06/20/25 22:20 78/56 L 06/20/25 22:20 78/56 L 06/20/25 22:18 93 H 22 98 06/20/25 22:12 98 H 21 97 06/20/25 22:10 92/68 L 06/20/25 22:10 92/68 L 06/20/25 22:10 92/68 L 06/20/25 22:10 92/68 L 06/20/25 22:10 92/68 L 06/20/25 22:09 94 H 25 H 99 06/20/25 22:00 86/58 L 06/20/25 22:00 86/58 L 06/20/25 22:00 86/58 L 06/20/25 22:00 86/58 L 06/20/25 22:00 86/58 L 06/20/25 22:00 96 H 27 H 98 O2 Del Method 06/21/25 08:13 Room Air 06/21/25 07:38 06/21/25 03:59 06/21/25 03:13 Room Air 06/21/25 02:21 Room Air 06/21/25 02:05 Room Air 06/21/25 02:00 Room Air 06/21/25 01:45 Room Air 06/21/25 01:30 Room Air 06/21/25 01:21 Room Air 06/21/25 01:10 Room Air 06/21/25 01:00 Room Air 06/21/25 00:50 Room Air 06/21/25 00:40 06/21/25 00:30 Room Air 06/20/25 23:39 06/20/25 23:30 Room Air 06/20/25 23:23 06/20/25 23:23 Room Air 06/20/25 23:15 06/20/25 23:12 Room Air 06/20/25 23:11 Room Air 06/20/25 23:00 Room Air 06/20/25 23:00 06/20/25 22:40 Room Air 06/20/25 22:30 06/20/25 22:30 06/20/25 22:30 06/20/25 22:30 06/20/25 22:30 06/20/25 22:30 06/20/25 22:21 06/20/25 22:20 06/20/25 22:20 06/20/25 22:20 06/20/25 22:20 06/20/25 22:20 06/20/25 22:18 06/20/25 22:12 06/20/25 22:10 06/20/25 22:10 06/20/25 22:10 06/20/25 22:10 06/20/25 22:10 06/20/25 22:09 06/20/25 22:00 06/20/25 22:00 06/20/25 22:00 06/20/25 22:00 06/20/25 22:00 06/20/25 22:00 Laboratory Results Blood Culture Aerobic Preliminary 06/21/25-0836 Organism 1 Yeast Sens Sensitivities Dependent on Further Identification Blood Culture PCR Panel If viewing in EMR, results available under LAB Serology tab. Diagnostic Findings IMPRESSION: 1. Fecal loading/impaction in the rectosigmoid, without clear signs of acute inflammation. 2. Non obstructing renal stones, and minimal bladder calcification. 3. Moderate artifact limits evaluation.
[2025-06-21] MEDS: UMECLIDINIUM BROMIDE 62.5MCG/BLISTER 7 PUFFS/INHALER INH SCH (09:59)
[2025-06-21] MEDS: LACTATED RINGER'S 1,000 ML IV ONE (11:22)
--- NOTE | 2025-06-21 14:16 | Hospitalist Progress Note ---
Date of Service June 21, 2025 Assessment & Plan (1) Hypotension: Plan: Suspected Catheter-related bloodstream infection Fungemia Possible sepsis due to above --Blood Culture: 08/11: Growing yeast --Urine culture negative --Continue empiric IV daptomycin, meropenem and caspofungin --Received IV fluids Consulted infectious disease Obtain echo Consulted vascular surgery for removal of Grande Catheter removal If cultures remain negative tomorrow, plan to discontinue antibiotics Will repeat blood cultures once removal of Grande's catheter Constipation No signs of obstruction on CT Continue bowel regimen Abnormal urinalysis Complicated UTI ruled out Urine culture negative Exchange Sanchez catheter Chronic hypotension H/O Autonomic dysreflexia Continue midodrine Monitor blood pressure Sacral decubitus ulcer--chronic Foot pressure ulcer Currently no signs of infection Continue wound care [id number] mattress Hypokalemia Replace and monitor Other chronic conditions: Chronic diastolic heart failure (EF 60%, TTE 2024): Not on diuretics at home. 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) Seizure disorder, stable: Continue home medications HCV status post Rx Chronic anemia, hemoglobin at baseline, monitor Left foot osteomyelitis S/P Antibiotic Rx Narcotic induced constipation, history chronic pain: Minimize narcotic use as able Anxiety/mood disorder, at baseline--continue home meds Tobacco/substance abuse as per records--Nicotine patch Paraplegia--fall precautions DVT Px: Eliquis Code Status Full code Admission and Anticipated Discharge Date Admission Date: June 20, 2025 Subjective Patient is seen and examined at bedside Less abdominal pain today Had small bowel movement overnight Denies any chest pain, dyspnea Discussed with infectious disease today No other complaints Review of Systems Review of Systems: All systems reviewed & are unremarkable except as noted in Subjective Physical Exam Physical Exam: Physical Exam: Vitals signs as noted above General Appearance:Moderately built and nourished, chronic ill appearing Head: normocephalic, Atraumatic Eyes: normal inspection, EOMI Neck: supple, Trachea midline Respiratory/Chest: Decreased coarse breath sounds, No accessory muscle use Cardiovascular: S1, S2, No murmur, bradycardia Abdomen/GI:Soft, non tender, mild distention, Bowel sounds present : Suprapubic Catheter Extremities/Musculoskeletal:normal inspection, Trace pedal edema Neurologic/Psych: Quadriplegia, alert, awake and oriented x 3 Skin: normal color, warm.+sacral wound Results & Data Results & Data Vital Signs (Past 12 Hours) Vital Signs Temp Pulse Pulse Resp BP Pulse Ox O2 Del Method 06/21/25 13:02 36.8 C 68 26 H 129/91 98 Room Air 06/21/25 08:13 36.7 C 96 H 25 H 110/76 93 Room Air 06/21/25 07:38 88 06/21/25 03:59 97 H 06/21/25 03:13 Room Air 06/21/25 02:21 36.6 C 98 H 20 114/77 94 Room Air Laboratory Results Short CBC 06/20/25 06/21/25 Range/Units 19:33 03:37 WBC 17.29 H 12.34 H (4.8-10.8) K/ul Hgb 11.5 L 9.9 L (14.0-18.0) g/dL Hct 35.5 L 30.8 L (42.0-52.0) % Plt Count 203 192 (130-400) K/uL BMP 06/20/25 06/21/25 19:33 03:37 Sodium 139 140 Potassium 3.3 L 3.1 L Chloride 105 109 H Carbon Dioxide 22 22 BUN 17 16 Creatinine 0.91 0.69 Glucose 131 H 114 H Calcium 9.3 8.2 L Liver Function 06/20/25 Range/Units 19:33 Total Bilirubin 1.0 (0.2-1.0) mg/dl Direct Bilirubin 0.2 (0-0.2) mg/dl AST 29 (13-39) U/L ALT 20 (7-52) U/L Alkaline Phosphatase 168 H (34-104) U/L Albumin 3.7 (3.4-5.0) gm/dl Urine 06/20/25 Range/Units 19:33 Urine Color Yellow Urine Appearance Cloudy A (Clear) Urine pH 6.5 (4.5-7.5) Ur Specific [place] 1.010 (1.000-1.030) Urine Protein 3+ H (Negative) Urine Glucose (UA) Negative (Negative) (1) Hypotension Hypotension type: unspecified hypotension type Qualified Code(s): I95.9 - Hypotension, unspecified
--- NOTE | 2025-06-21 16:37 | XCELERA ---
[id number]
[2025-06-21] MEDS: MELATONIN 3 MG TAB PO PRN (20:53)
[2025-06-22] MEDS: CASPOFUNGIN 50 MG in SODIUM CHLORIDE 0.9% 250 ML IV SCH (05:00)
[2025-06-22 06:41] LABS: Hematocrit (blood only) 30.5 % (42.0-52.0); Hemoglobin 9.6 g/dL (14.0-18.0); Mean Corpuscular Hemoglobin 24.3 pg (25.0-34.0); Mean Corpuscular Volume 77.2 fL (80.0-100.0); Platelet Count 152 K/uL (130-400); RDW Standard Deviation 56.4 fL (36.4-46.3); Red Blood Count 3.95 M/uL (4.70-6.10); White Blood Count 4.83 K/ul (4.8-10.8)
[2025-06-22 07:25] LABS: Anion Gap 5.0 (3-11); Blood Urea Nitrogen 15.0 mg/dl (6-23); Calcium 8.6 mg/dl (8.6-10.3); Carbon Dioxide 24.0 mmol/L (21-32); Chloride 111.0 mmol/L (98-107); Creatinine Clr Calc Pharmacy 183.3 ml/min; Glucose 100.0 mg/dl (70-99(Fasting)); Magnesium 1.8 mg/dl (1.7-2.4); Potassium 3.5 mmol/L (3.5-5.1); Sodium 140.0 mmol/L (136-145)
--- NOTE | 2025-06-22 08:26 | Vascular Surgery Consultation ---
Date of Consultation June 22, 2025 Assessment & Plan (1) Fungemia: 49 yo with fungemia and tunneled central venous line. He has limited IV access. The line ultimately needs to be removed but no indication it needs to be done emergently. Line was placed by Dr. Alonso in March - will let him know of patient's admission. Will defer to his timing/availability to remove catheter. I am available as needed/requested. History of Present Illness Attending Physician: Jama Vela MD History of Present Illness Asked to evaluate this 49yo with fungemia and tunneled central venous line. [facility]/01/25 [facility]treatment of osteomyelitis left foot. Allergies Allergy/AdvReac Type Severity Reaction Status Date / Time Opioids - Morphine Analogues AdvReac Severe severe Verified 04/26/25 01:40 bradycardia cefepime AdvReac Intermediate seizures Verified 04/26/25 20:11 Home Medications Medication Instructions Recorded Confirmed Type albuterol sulfate 2.5 mg/3 mL 1.25 mg inhalation Q4H PRN 08/26/24 06/21/25 History (0.083 %) solution for nebulization Shortness Of Breath Or Wheezing baclofen 10 mg tablet 20 mg PO TID 08/26/24 06/21/25 History bisacodyl 10 mg rectal suppository 10 mg VA QAM 08/26/24 06/21/25 History budesonide-formoterol HFA 160 2 puff inhalation AMHS 08/26/24 06/21/25 History mcg-4.5 mcg/actuation aerosol inhaler docusate sodium 100 mg capsule 100 mg PO AMPM PRN Constipation 08/26/24 06/21/25 History hydroxyzine HCl 25 mg tablet 25 mg PO DAILY PRN Anxiety 08/26/24 06/21/25 History lactulose 10 gram/15 mL oral 20 g PO TID 08/26/24 06/21/25 History solution midodrine 10 mg tablet 10 mg PO TID 08/26/24 06/21/25 History oxybutynin chloride 10 mg 10 mg PO QAM 08/26/24 06/21/25 History tablet,extended release 24 hr pantoprazole 40 mg tablet,delayed 40 mg PO QAM 08/26/24 06/21/25 History release sennosides 8.6 mg-docusate sodium 2 tab PO HS 08/26/24 06/21/25 History 50 mg tablet (Senexon-S) tiotropium bromide 2.5 2 puff inhalation QAM 08/26/24 06/21/25 History mcg/actuation mist for inhalation (Spiriva Respimat) acetaminophen 325 mg tablet 650 mg PO Q6 PRN Fever Or Pain 09/30/24 06/21/25 History ondansetron 4 mg disintegrating 4 mg translingual Q6 PRN Nausea 09/30/24 06/21/25 History tablet apixaban 5 mg tablet (Eliquis) 5 mg PO AMHS 03/21/25 06/21/25 History levetiracetam 1,000 mg tablet 1,000 mg PO AMHS 03/21/25 06/21/25 History duloxetine 60 mg capsule,delayed 60 mg PO QAM #30 caps 04/17/25 06/21/25 Rx release pregabalin 75 mg capsule (Lyrica) 75 mg PO TID #90 caps 04/17/25 06/21/25 Rx sodium chloride 0.9 % (flush) 10 ml IV DIRECTED 04/26/25 06/21/25 History oxycodone 15 mg tablet 15 mg PO Q4H PRN severe pain 04/27/25 06/21/25 Rx (scale score 7-10) #40 tabs diclofenac sodium 1 % topical gel 2 g topical QID PRN Pain 06/21/25 06/21/25 History guaifenesin 100 mg/5 mL oral liquid 200 mg PO QID PRN Cough 06/21/25 06/21/25 History heparin, porcine (PF) 10 unit/mL 10 unit IV UD 06/21/25 06/21/25 History intravenous syringe (Heparin Lock Flush (Porcine) (PF)) melatonin 3 mg capsule 3 mg PO HS 06/21/25 06/21/25 History multivitamin 1 tab PO QAM 06/21/25 06/21/25 History naloxone 0.4 mg/mL injection 0 mg intranasal UD 06/21/25 06/21/25 History solution simethicone 80 mg chewable tablet 80 mg PO TID 06/21/25 06/21/25 History Patient History Medical History Hypokalemia Breakthrough seizure Seizure Medication reaction Left-sided chest pain Drug-induced seizure Open wound of left foot Chronic osteomyelitis of sacrum Sacral decubitus ulcer, stage IV Complicated UTI (urinary tract infection) RSV (respiratory syncytial virus infection) Hypoxia Leg wound, left Leg wound, right 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 Hypoxic respiratory failure 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 Severe sepsis Chest pain Acute hypoxemic respiratory failure Change or removal of nonsurgical wound dressing Pneumonia Encephalopathy Hypotension Acute UTI Sacral wound Quadriplegia Anemia Hypomagnesemia Hypokalemia Complication, blocked suprapubic catheter Leukocytosis Acute urinary retention Hydronephrosis Abdominal pain Left sided abdominal pain Cough Pneumonia Abnormal chest CT Elevated hemidiaphragm Pneumonia involving right lung Soft tissue infection Suprapubic catheter dysfunction Aspiration pneumonia Bacteremia Acute hypotension Acute hypokalemia Abdominal pain Hypoxic respiratory failure Sepsis Acute UTI Acute UTI Abdominal pain Aspiration pneumonitis Pneumonia Paraplegia Surgical History No pertinent past surgical history Social History Smoking Status: Current every day smoker Tobacco Type: Cigarettes Cigarettes Per Day: 1/2 pack; Second Hand Exposure: No; Do You Dip or Chew Tobacco: No; Hx Alcohol Use: Yes Alcohol type: beer Hx Substance Use: Yes Non-Prescribed Medications: Crack / Cocaine and Marijuana Last Used Substance: Days (ago) Preferred Language: Citizen Of [place] Communication Ability: Effective Communication Ability Comment: difficulty writing Swabber Required: No Beliefs That Will Affect Care: None Current Living Situation: Family Current Living Situation Comment: lives with Diogenes Feels Safe at Home: Yes Safety Concerns: Feels Safe At This Time Assistive Devices: Scooter/Electric Scooter and Wheelchair Physical Exam Physical Exam: Awake, alert, comfortable. Access site Right chest wall clean without drainage. Results & Data Vital Signs (Past 12 Hours) Vital Signs Temp Pulse Pulse Resp BP Pulse Ox O2 Del Method 06/22/25 07:39 36.7 C 81 23 121/82 95 Room Air 06/22/25 07:00 62 06/22/25 02:27 36.7 C 75 18 107/76 96 Room Air 06/21/25 23:39 36.7 C 71 18 99/65 L 95 Room Air 06/21/25 22:00 83 06/21/25 20:30 Room Air PG Care Time/CCT Total # of Minutes Spent Total Time Spent with Patient: Total time spent is greater than 50% in coordination of care (as documented) at patient's floor/unit and/or counseling patient: Coding Level of Care Code 71367 IN/OBS CONSULT LVL 3,45M Diagnoses Fungemia B49
--- NOTE | 2025-06-22 14:05 | Hospitalist Progress Note ---
Date of Service June 22, 2025 Assessment & Plan (1) Hypotension: Plan: Suspected Catheter-related bloodstream infection Fungemia Rule out bacteremia Possible sepsis due to above --Blood Culture: 08/11: Growing yeast; 1/4 growing gram-positive cocci in clusters --Urine culture negative --ECHO: No regional wall motion abnormality. Borderline concentric LVH. EF 65 to 70%. Left ventricle is hyperdynamic. Right ventricle is normal in size and function. LV diastolic function is normal. No valvular vegetation noted on echo. --Continue empiric IV daptomycin, meropenem and caspofungin --Received IV fluids Infectious disease on board Consulted vascular surgery for removal of Grande Catheter removal Repeat blood cultures tomorrow Constipation No signs of obstruction on CT Continue bowel regimen Had multiple BMs today Abnormal urinalysis Complicated UTI ruled out Urine culture negative Exchange Sanchez catheter Chronic hypotension H/O Autonomic dysreflexia Continue midodrine Monitor blood pressure Sacral decubitus ulcer--chronic Foot pressure ulcer --Wound culture pending Currently no signs of infection Continue wound care [id number] mattress Hypokalemia Replace and monitor Other chronic conditions: Chronic diastolic heart failure (EF 60%, TTE 2024): Not on diuretics at home. 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) Seizure disorder, stable: Continue home medications HCV status post Rx Chronic anemia, hemoglobin at baseline, monitor Left foot osteomyelitis S/P Antibiotic Rx Narcotic induced constipation, history chronic pain: Minimize narcotic use as able Anxiety/mood disorder, at baseline--continue home meds Tobacco/substance abuse as per records--Nicotine patch Paraplegia--fall precautions DVT Px: Eliquis Code Status Full code Admission and Anticipated Discharge Date Admission Date: June 20, 2025 Subjective Patient is seen and examined at bedside States having multiple bowel movements No nausea today Tolerating current diet Abdominal pain much improved Denies any chest pain, dyspnea No other complaints Review of Systems Review of Systems: All systems reviewed & are unremarkable except as noted in Subjective Physical Exam Physical Exam: Physical Exam: Vitals signs as noted above General Appearance:Moderately built and nourished, chronic ill appearing Head: normocephalic, Atraumatic Eyes: normal inspection, EOMI Neck: supple, Trachea midline Respiratory/Chest: Decreased coarse breath sounds, No accessory muscle use Cardiovascular: S1, S2, No murmur, bradycardia Abdomen/GI:Soft, non tender, mild distention, Bowel sounds present : Suprapubic Catheter Extremities/Musculoskeletal:normal inspection, Trace pedal edema Neurologic/Psych: Quadriplegia, alert, awake and oriented x 3 Skin: normal color, warm.+sacral wound Results & Data Results & Data Vital Signs (Past 12 Hours) Vital Signs Temp Pulse Pulse Resp BP Pulse Ox O2 Del Method 06/22/25 11:31 36.8 C 79 17 111/78 96 Room Air 06/22/25 08:25 Room Air 06/22/25 07:39 36.7 C 81 23 121/82 95 Room Air 06/22/25 07:00 62 06/22/25 02:27 36.7 C 75 18 107/76 96 Room Air Laboratory Results Short CBC 06/22/25 Range/Units 06:04 WBC 4.83 (4.8-10.8) K/ul Hgb 9.6 L (14.0-18.0) g/dL Hct 30.5 L (42.0-52.0) % Plt Count 152 (130-400) K/uL BMP 06/22/25 06:04 Sodium 140 Potassium 3.5 Chloride 111 H Carbon Dioxide 24 BUN 15 Creatinine 0.54 L Glucose 100 H Calcium 8.6 (1) Hypotension Hypotension type: unspecified hypotension type Qualified Code(s): I95.9 - Hypotension, unspecified
[2025-06-23] MEDS: LORATADINE 10 MG TAB PO ONE (06:32)
[2025-06-23 07:20] LABS: Hematocrit (blood only) 29.7 % (42.0-52.0); Hemoglobin 9.4 g/dL (14.0-18.0); Mean Corpuscular Hemoglobin 24.2 pg (25.0-34.0); Mean Corpuscular Volume 76.5 fL (80.0-100.0); Platelet Count 145 K/uL (130-400); RDW Standard Deviation 54.7 fL (36.4-46.3); Red Blood Count 3.88 M/uL (4.70-6.10); White Blood Count 3.87 K/ul (4.8-10.8)
[2025-06-23 07:40] LABS: Anion Gap 7.0 (3-11); Blood Urea Nitrogen 10.0 mg/dl (6-23); Calcium 8.7 mg/dl (8.6-10.3); Carbon Dioxide 25.0 mmol/L (21-32); Chloride 106.0 mmol/L (98-107); Creatinine Clr Calc Pharmacy 253.8 ml/min; Glucose 88.0 mg/dl (70-99(Fasting)); Magnesium 1.6 mg/dl (1.7-2.4); Potassium 3.4 mmol/L (3.5-5.1); Sodium 138.0 mmol/L (136-145)
[2025-06-23] MEDS: SODIUM CHLORIDE 0.9% 1,000 ML IV ONE (09:23)
[2025-06-23] MEDS: POTASSIUM CHLORIDE 10 MEQ TABCR PO ONE (09:33)
[2025-06-23] MEDS: MAGNESIUM CHLORIDE W/CALCIUM 64MG DELAYED REL TAB PO SCH (11:10)
[2025-06-23 14:00] LABS: A calco-baum cmplx NotReported Not Detected (NotDetected); Bact fragilis Not Reported Not Detected (NotDetected); Blood Culture Id Panel See PCR Comment (NotDetected); C auris Not Reported Not Detected (NotDetected); Calbicans Not Reported Not Detected (NotDetected); Candida glabrata Not Reported Not Detected (NotDetected); Candida krusei Not Reported Not Detected (NotDetected); Cneoformans/gatti Not Reported Not Detected (NotDetected); Cparapsilosis Not Reported DETECTED (NotDetected); Ctropicalis Not Reported Not Detected (NotDetected); E cloacae compx Not Reported Not Detected (NotDetected); Efaecalis Not Reported Not Detected (NotDetected); Efaecium Not Reported Not Detected (NotDetected); Enterobacterales Not Reported Not Detected (NotDetected); Escherichia coli Not Reported Not Detected (NotDetected); H influenzae Not Reported Not Detected (NotDetected); K aerogenes Not Reported Not Detected (NotDetected); Koxytoca Not Reported Not Detected (NotDetected); Kpneumoniae grp Not Reported Not Detected (NotDetected); Lmonocyt Not Reported Not Detected (NotDetected); N meningitidis Not Reported Not Detected (NotDetected); P aeruginosa Not Reported Not Detected (NotDetected); Proteus spp Not Reported Not Detected (NotDetected); Salmonella spp Not Reported Not Detected (NotDetected); Staph lugdunensis Not Reported Not Detected (NotDetected); Staph spp. Not Reported DETECTED (NotDetected); Staphaureus Not Reported Not Detected (NotDetected); Staphepi Not Reported Not Detected (NotDetected); Stenmaltophilia Not Reported Not Detected (NotDetected); Strep agal(GrpB) Not Reported Not Detected (NotDetected); Strep pneum Not Reported Not Detected (NotDetected); Strep pyog (GrpA) Not Reported Not Detected (NotDetected); Strep spp Not Reported Not Detected (NotDetected)
[2025-06-23 14:02] LABS: Staphylococcus spp. DETECTED (NotDetected)
--- NOTE | 2025-06-23 15:02 | Hospitalist Progress Note ---
Date of Service June 23, 2025 Assessment & Plan (1) Hypotension: Plan: Suspected Catheter-related bloodstream infection Fungemia Rule out bacteremia Possible sepsis due to above --Blood Culture: 08/11: Grew Georgina parapsilosis; 08/11 growing Yeast, Stahp Pasteuri --Repeat blood cultures-- pending --Urine culture negative --ECHO: No regional wall motion abnormality. Borderline concentric LVH. EF 65 to 70%. Left ventricle is hyperdynamic. Right ventricle is normal in size and function. LV diastolic function is normal. No valvular vegetation noted on echo. --Continue empiric IV daptomycin, meropenem and caspofungin --Received IV fluids Consulted infectious disease Consulted vascular surgery for removal of Grande Catheter removal N.p.o. after midnight for catheter removal Titrate antibiotics based on cultures Constipation No signs of obstruction on CT Continue bowel regimen Abnormal urinalysis Complicated UTI ruled out Urine culture negative Exchange Sanchez catheter Chronic hypotension H/O Autonomic dysreflexia Continue midodrine Monitor blood pressure IV fluids as needed Sacral decubitus ulcer--chronic Foot pressure ulcer --Wound culture growing Staph aureus Currently no signs of infection Continue wound care Fat-ego-cilu mattress Continue antibiotics as above Hypokalemia Replace and monitor Other chronic conditions: Chronic diastolic heart failure (EF 60%, TTE 2024): Not on diuretics at home. 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) Seizure disorder, stable: Continue home medications HCV status post Rx Chronic anemia, hemoglobin at baseline, monitor Left foot osteomyelitis S/P Antibiotic Rx Narcotic induced constipation, history chronic pain: Minimize narcotic use as able Anxiety/mood disorder, at baseline--continue home meds Tobacco/substance abuse as per records--Nicotine patch Paraplegia--fall precautions DVT Px: Eliquis Code Status Full code Admission and Anticipated Discharge Date Admission Date: June 20, 2025 Subjective Patient is seen and examined at bedside Feels had transient confusion overnight Oriented x 3 during my encounter today Denies any abdominal pain today Also denies any chest pain, dyspnea, nausea, vomiting Had bowel movements today Review of Systems Review of Systems: All systems reviewed & are unremarkable except as noted in Subjective Physical Exam Physical Exam: Physical Exam: Vitals signs as noted above General Appearance:Moderately built and nourished, chronic ill appearing Head: normocephalic, Atraumatic Eyes: normal inspection, EOMI Neck: supple, Trachea midline Respiratory/Chest: Decreased coarse breath sounds, No accessory muscle use Cardiovascular: S1, S2, No murmur Abdomen/GI:Soft, non tender, mild distention, Bowel sounds present : Suprapubic Catheter Extremities/Musculoskeletal:normal inspection, Trace pedal edema Neurologic/Psych: Quadriplegia, alert, awake and oriented x 3 Skin: normal color, warm.+sacral wound Results & Data Results & Data Vital Signs (Past 12 Hours) Vital Signs Temp Pulse Resp BP Pulse Ox O2 Del Method 06/23/25 09:15 73 99/63 L 06/23/25 08:51 76/48 L 06/23/25 08:37 84 70/44 L 06/23/25 07:55 36.7 C 62 18 121/79 95 Room Air Laboratory Results Short CBC 06/23/25 Range/Units 06:37 WBC 3.87 L (4.8-10.8) K/ul Hgb 9.4 L (14.0-18.0) g/dL Hct 29.7 L (42.0-52.0) % Plt Count 145 (130-400) K/uL BMP 06/23/25 06:37 Sodium 138 Potassium 3.4 L Chloride 106 Carbon Dioxide 25 BUN 10 Creatinine 0.39 L Glucose 88 Calcium 8.7 (1) Hypotension Hypotension type: unspecified hypotension type Qualified Code(s): I95.9 - Hypotension, unspecified
[2025-06-24] MEDS: ACETAMINOPHEN 325 MG TAB PO PRN (01:27)
[2025-06-24] MEDS: DICLOFENAC SOD 1% GEL 100 GM TUBE EXT PRN (06:06)
[2025-06-24 07:39] LABS: Hematocrit (blood only) 31.5 % (42.0-52.0); Hemoglobin 9.9 g/dL (14.0-18.0); Mean Corpuscular Hemoglobin 24.1 pg (25.0-34.0); Mean Corpuscular Volume 76.6 fL (80.0-100.0); Platelet Count 148 K/uL (130-400); RDW Standard Deviation 53.9 fL (36.4-46.3); Red Blood Count 4.11 M/uL (4.70-6.10); White Blood Count 3.77 K/ul (4.8-10.8)
[2025-06-24 07:55] LABS: Anion Gap 4.0 (3-11); Blood Urea Nitrogen 9.0 mg/dl (6-23); Calcium 8.8 mg/dl (8.6-10.3); Carbon Dioxide 30.0 mmol/L (21-32); Chloride 105.0 mmol/L (98-107); Creatinine Clr Calc Pharmacy 267.5 ml/min; Glucose 95.0 mg/dl (70-99(Fasting)); Magnesium 1.8 mg/dl (1.7-2.4); Potassium 3.6 mmol/L (3.5-5.1); Sodium 139.0 mmol/L (136-145)
--- NOTE | 2025-06-24 09:03 | Consultation ---
Date of Consultation June 24, 2025 Assessment & Plan (1) Fungemia: Pt currently with fungemia and indwelling amos catheter. Will require removal of catheter in OR later this AM. Procedure, risks, benefits, and alternaties discussed with pt by myself at Dr Alonso's request. Verbal consent obtained from pt as he is unable to sign his name. Witnessed by RN. History of Present Illness Reason for Consultation: fungemia Attending Physician: Jama Vela MD History of Present Illness 49 yo m with multiple medical problems, inclduing IVDU, GERD, COPD, quadriplegia, PE, decubitus ulcers, admitted with fungemia, seen in consultation today for removal of Amos catheter. Pt had catheter placed in 03/2025 for halfway IV abx for osteomyelitis. Our office was contacted over a month ago by pt's PCP requesting removal of amos, however, office was unable to make contact with pt despite multiple attempts. Pt now admitted with fungemia and will require removal of Amos. Pt himself admits severe chronic generalized pain. Denies HERNÁNDEZ, chest pain, SOB,abd pain, N/V, other complaints. Allergies Allergy/AdvReac Type Severity Reaction Status Date / Time Opioids - Morphine Analogues AdvReac Severe severe Verified 04/26/25 01:40 bradycardia cefepime AdvReac Intermediate seizures Verified 04/26/25 20:11 Home Medications Medication Instructions Recorded Confirmed Type albuterol sulfate 2.5 mg/3 mL 1.25 mg inhalation Q4H PRN 08/26/24 06/21/25 History (0.083 %) solution for nebulization Shortness Of Breath Or Wheezing baclofen 10 mg tablet 20 mg PO TID 08/26/24 06/21/25 History bisacodyl 10 mg rectal suppository 10 mg MD QAM 08/26/24 06/21/25 History budesonide-formoterol HFA 160 2 puff inhalation AMHS 08/26/24 06/21/25 History mcg-4.5 mcg/actuation aerosol inhaler docusate sodium 100 mg capsule 100 mg PO AMPM PRN Constipation 08/26/24 06/21/25 History hydroxyzine HCl 25 mg tablet 25 mg PO DAILY PRN Anxiety 08/26/24 06/21/25 History lactulose 10 gram/15 mL oral 20 g PO TID 08/26/24 06/21/25 History solution midodrine 10 mg tablet 10 mg PO TID 08/26/24 06/21/25 History oxybutynin chloride 10 mg 10 mg PO QAM 08/26/24 06/21/25 History tablet,extended release 24 hr pantoprazole 40 mg tablet,delayed 40 mg PO QAM 08/26/24 06/21/25 History release sennosides 8.6 mg-docusate sodium 2 tab PO HS 08/26/24 06/21/25 History 50 mg tablet (Senexon-S) tiotropium bromide 2.5 2 puff inhalation QAM 08/26/24 06/21/25 History mcg/actuation mist for inhalation (Spiriva Respimat) acetaminophen 325 mg tablet 650 mg PO Q6 PRN Fever Or Pain 09/30/24 06/21/25 History ondansetron 4 mg disintegrating 4 mg translingual Q6 PRN Nausea 09/30/24 06/21/25 History tablet apixaban 5 mg tablet (Eliquis) 5 mg PO AMHS 03/21/25 06/21/25 History levetiracetam 1,000 mg tablet 1,000 mg PO AMHS 03/21/25 06/21/25 History duloxetine 60 mg capsule,delayed 60 mg PO QAM #30 caps 04/17/25 06/21/25 Rx release pregabalin 75 mg capsule (Lyrica) 75 mg PO TID #90 caps 04/17/25 06/21/25 Rx sodium chloride 0.9 % (flush) 10 ml IV DIRECTED 04/26/25 06/21/25 History oxycodone 15 mg tablet 15 mg PO Q4H PRN severe pain 04/27/25 06/21/25 Rx (scale score 7-10) #40 tabs diclofenac sodium 1 % topical gel 2 g topical QID PRN Pain 06/21/25 06/21/25 History guaifenesin 100 mg/5 mL oral liquid 200 mg PO QID PRN Cough 06/21/25 06/21/25 History heparin, porcine (PF) 10 unit/mL 10 unit IV UD 06/21/25 06/21/25 History intravenous syringe (Heparin Lock Flush (Porcine) (PF)) melatonin 3 mg capsule 3 mg PO HS 06/21/25 06/21/25 History multivitamin 1 tab PO QAM 06/21/25 06/21/25 History naloxone 0.4 mg/mL injection 0 mg intranasal UD 06/21/25 06/21/25 History solution simethicone 80 mg chewable tablet 80 mg PO TID 06/21/25 06/21/25 History Patient History Medical History Hypokalemia Breakthrough seizure Seizure Medication reaction Left-sided chest pain Drug-induced seizure Open wound of left foot Chronic osteomyelitis of sacrum Sacral decubitus ulcer, stage IV Complicated UTI (urinary tract infection) RSV (respiratory syncytial virus infection) Hypoxia Leg wound, left Leg wound, right 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 Hypoxic respiratory failure 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 Severe sepsis Chest pain Acute hypoxemic respiratory failure Change or removal of nonsurgical wound dressing Pneumonia Encephalopathy Hypotension Acute UTI Sacral wound Quadriplegia Anemia Hypomagnesemia Hypokalemia Complication, blocked suprapubic catheter Leukocytosis Acute urinary retention Hydronephrosis Abdominal pain Left sided abdominal pain Cough Pneumonia Abnormal chest CT Elevated hemidiaphragm Pneumonia involving right lung Soft tissue infection Suprapubic catheter dysfunction Aspiration pneumonia Bacteremia Acute hypotension Acute hypokalemia Abdominal pain Hypoxic respiratory failure Sepsis Acute UTI Acute UTI Abdominal pain Aspiration pneumonitis Pneumonia Paraplegia Surgical History No pertinent past surgical history Social History Smoking Status: Current every day smoker Tobacco Type: Cigarettes Cigarettes Per Day: 1/2 pack; Second Hand Exposure: No; Do You Dip or Chew Tobacco: No; Hx Alcohol Use: Yes Alcohol type: beer Hx Substance Use: Yes Non-Prescribed Medications: Crack / Cocaine and Marijuana Last Used Substance: Days (ago) Preferred Language: Peruvian Communication Ability: Effective Communication Ability Comment: difficulty writing Athletic Coach Required: No Beliefs That Will Affect Care: None Current Living Situation: Family Current Living Situation Comment: lives with Lyn and niece Feels Safe at Home: Yes Safety Concerns: Feels Safe At This Time Assistive Devices: Scooter/Electric Scooter and Wheelchair Review of Systems Review of Systems: All systems reviewed & are unremarkable except as noted in HPI & below Physical Exam Constitutional: WD/WN, vitals as above + disheveled, cooperative and comfortable; not in distress Respiratory: normal respiratory effort, lungs clear to auscultation Auscultation: + diminished lung sounds Cardiovascular: Rate/Rhythm: regular rate and regular rhythm Vessels: dorsalis pedis pulses present and radial pulses present; + abnormal peripheral pulses Extremities: + vascular access device (R IJ amos without erythema or drainage or swelling.) Gastrointestinal (Abdomen): Inspection/Auscultation: abdomen normal to inspection and normal bowel sounds Percussion/Palpation: abdomen soft; abdomen nontender Musculoskeletal: quadriplegic, some jerky movements of BUE, but generally contracted Skin: no rashes, warm and dry Neurologic: awake; not confused Psychiatric: A+Ox3, euthymic affect Results & Data Vital Signs (Past 12 Hours) Vital Signs Temp Pulse Resp BP Pulse Ox O2 Del Method 06/24/25 08:07 36.5 C 52 L 14 158/100 H 97 Room Air 06/23/25 23:10 36.4 C L 73 18 116/79 96 Room Air 06/23/25 21:20 Room Air 06/23/25 21:16 80 98/68 L
--- NOTE | 2025-06-24 11:36 | Communication Note ---
Date of Service: June 24, 2025 This patient was taken the angiogram suite placed supine position. He was given fentanyl. Local anesthetic was administered and he bolted off the plane he did not want removed the left he was fully asleep. He did have a carton of chocolate milk about an hour before this so sedation or MAC could not be done at this point. He was taken out of the operating room send back to his room and will be rescheduled for Tuesday under esthesia.
--- NOTE | 2025-06-24 11:40 | Operative Report ---
Post Operative Report Pre & Post Diagnosis Operation Date: 06/24/25 13:30 Pre op Dx. infected grande Post op Dx: Infected grande I identified the patient and participated in the time-out.: Yes Procedure Operation Date: 06/24/25 13:30 Grande removal aborted Surgeon Martin Alonso MD Data Collection Specialist none Estimated Blood Loss 0 Findings Consistent with Post-Op Diagnosis Specimens none Anesthesia Type Local Complications none Disposition Accompanied Patient To Recovery: No Disposition: Recovery Room Indications This is a 41-year-old gentleman Grande catheter in place with positive fungal cultures. Removal Grande was recommended. I have discussed the risks options and benefits of the procedure with the patient. The patient understands the risks options and benefits and agrees to the procedure. Description of Procedure Patient was taken the angio suite placed spine position. After the site was prepped and draped in a sterile manner the patient was identified a timeout was performed. He was then given fentanyl. When administering local to the exit site patient tried to jump up and said he did not want the catheter removed unless he was fully asleep and wanted to go back to his room. We tried to convince him that he would feel the needles for the local and burning sensation from the local anesthetic being administered but that should pass. He therefore refused to have anything further done. We cannot give him sedation at this point being that he had a hard to talk about an hour before the removal was planned. The dressing was replaced over the Grande and he was sent back to his room. I attest to the content of the Intraoperative Record and any orders documented therein. Any exceptions are noted below.
[2025-06-24] MEDS: MIDAZOLAM HCL 1 MG/ML 2ML VIAL ONE (12:04)
[2025-06-24] MEDS: LIDOCAINE 1% LOCAL 20 ML VIAL ONE (12:04)
--- NOTE | 2025-06-24 14:30 | Hospitalist Progress Note ---
Date of Service June 24, 2025 Assessment & Plan (1) Hypotension: Plan: Suspected Catheter-related bloodstream infection Fungemia Rule out bacteremia Possible sepsis due to above --Blood Culture: 08/11: Grew Georgina parapsilosis; 08/11 growing Yeast, Amairlis Andrewsi --Repeat blood cultures--negative to date --Urine culture negative --ECHO: No regional wall motion abnormality. Borderline concentric LVH. EF 65 to 70%. Left ventricle is hyperdynamic. Right ventricle is normal in size and function. LV diastolic function is normal. No valvular vegetation noted on echo. --Continue empiric IV daptomycin, meropenem and caspofungin>> transition to IV daptomycin, caspofungin --Received IV fluids Consulted infectious disease Needs removal of Grande Catheter removal--scheduled for Tuesday Will discuss with infectious disease for final recommendations Constipation No signs of obstruction on CT Continue bowel regimen Had bowel movements Abnormal urinalysis Complicated UTI ruled out Urine culture negative Exchange Sanchez catheter Chronic hypotension H/O Autonomic dysreflexia Continue midodrine Monitor blood pressure IV fluids as needed Sacral decubitus ulcer--chronic Foot pressure ulcer --Wound culture grew MRSA Currently no signs of infection Continue wound care Czb-pbp-hveh mattress Continue antibiotics as above Hypokalemia Replace and monitor Other chronic conditions: Chronic diastolic heart failure (EF 60%, TTE 2024): Not on diuretics at home. 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) Seizure disorder, stable: Continue home medications HCV status post Rx Chronic anemia, hemoglobin at baseline, monitor Left foot osteomyelitis S/P Antibiotic Rx Narcotic induced constipation, history chronic pain: Minimize narcotic use as able Anxiety/mood disorder, at baseline--continue home meds Tobacco/substance abuse as per records--Nicotine patch Paraplegia--fall precautions DVT Px: Eliquis Code Status Full code Admission and Anticipated Discharge Date Admission Date: June 20, 2025 Subjective Patient is seen and examined at bedside Was concerned about pain post Grande's catheter removal which she experienced in the past No other complaints Procedure was aborted today Denies any chest pain, dyspnea, nausea, vomiting Review of Systems Review of Systems: All systems reviewed & are unremarkable except as noted in Subjective Physical Exam Physical Exam: Physical Exam: Vitals signs as noted above General Appearance:Moderately built and nourished, chronic ill appearing Head: normocephalic, Atraumatic Eyes: normal inspection, EOMI Neck: supple, Trachea midline Respiratory/Chest: Decreased coarse breath sounds, No accessory muscle use Cardiovascular: S1, S2, No murmur Abdomen/GI:Soft, non tender, mild distention, Bowel sounds present : Suprapubic Catheter Extremities/Musculoskeletal:normal inspection, Trace pedal edema Neurologic/Psych: Quadriplegia, alert, awake and oriented x 3 Skin: normal color, warm.+sacral wound Results & Data Results & Data Vital Signs (Past 12 Hours) Vital Signs Temp Pulse Pulse Resp BP BP Pulse Ox 06/24/25 11:34 72 20 115/74 98 06/24/25 11:29 91 H 18 118/84 98 06/24/25 10:55 36.6 C 76 20 91/57 L 96 06/24/25 10:21 59 L 102/68 97 06/24/25 08:07 36.5 C 52 L 14 158/100 H 97 06/24/25 07:20 O2 Del Method O2 Flow Rate 06/24/25 11:34 Room Air 06/24/25 11:29 Oxymask 4 06/24/25 10:55 Room Air 06/24/25 10:21 Room Air 06/24/25 08:07 Room Air 06/24/25 07:20 Room Air Laboratory Results Short CBC 06/24/25 Range/Units 07:18 WBC 3.77 L (4.8-10.8) K/ul Hgb 9.9 L (14.0-18.0) g/dL Hct 31.5 L (42.0-52.0) % Plt Count 148 (130-400) K/uL BMP 06/24/25 07:18 Sodium 139 Potassium 3.6 Chloride 105 Carbon Dioxide 30 BUN 9 Creatinine 0.37 L Glucose 95 Calcium 8.8 (1) Hypotension Hypotension type: unspecified hypotension type Qualified Code(s): I95.9 - Hypotension, unspecified
[2025-06-25 10:18] LABS: Anion Gap 5.0 (3-11); Blood Urea Nitrogen 14.0 mg/dl (6-23); Calcium 8.9 mg/dl (8.6-10.3); Carbon Dioxide 31.0 mmol/L (21-32); Chloride 102.0 mmol/L (98-107); Creatinine Clr Calc Pharmacy 247.4 ml/min; Glucose 115.0 mg/dl (70-99(Fasting)); Magnesium 1.8 mg/dl (1.7-2.4); Potassium 4.0 mmol/L (3.5-5.1); Sodium 138.0 mmol/L (136-145)
--- NOTE | 2025-06-25 14:19 | Hospitalist Progress Note ---
Date of Service June 25, 2025 Assessment & Plan (1) Hypotension: Plan: Suspected Catheter-related bloodstream infection Fungemia Rule out bacteremia Possible sepsis due to above --Blood Culture: 2/4: Grew Georgina parapsilosis; 1/4 growing Yeast, Stajt Pasteuri --Repeat blood cultures--negative to date --Urine culture negative --ECHO: No regional wall motion abnormality. Borderline concentric LVH. EF 65 to 70%. Left ventricle is hyperdynamic. Right ventricle is normal in size and function. LV diastolic function is normal. No valvular vegetation noted on echo. --Continue empiric IV daptomycin, meropenem and caspofungin>> transition to IV daptomycin, caspofungin --Received IV fluids Consulted infectious disease Needs removal of Grande Catheter removal--scheduled for tomorrow Will discuss with infectious disease for final recommendations N.p.o. after midnight Constipation No signs of obstruction on CT Continue bowel regimen Had bowel movements Abnormal urinalysis Complicated UTI ruled out Urine culture negative Exchanged Sanchez catheter during this hospitalization Chronic hypotension H/O Autonomic dysreflexia Continue midodrine Monitor blood pressure IV fluids as needed Sacral decubitus ulcer--chronic Foot pressure ulcer --Wound culture grew MRSA Currently no signs of infection Continue wound care [id number] mattress Continue antibiotics as above Hypokalemia Replace and monitor Other chronic conditions: Chronic diastolic heart failure (EF 60%, TTE 2024): Not on diuretics at home. 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) Seizure disorder, stable: Continue home medications HCV status post Rx Chronic anemia, hemoglobin at baseline, monitor Left foot osteomyelitis S/P Antibiotic Rx Narcotic induced constipation, history chronic pain: Minimize narcotic use as able Anxiety/mood disorder, at baseline--continue home meds Tobacco/substance abuse as per records--Nicotine patch Paraplegia--fall precautions DVT Px: Eliquis Code Status Full code Admission and Anticipated Discharge Date Admission Date: June 20, 2025 Subjective Patient is seen and examined at bedside Offers no new complaints today States having some abdominal discomfort which is improving Plan for Grande's catheter removal tomorrow Denies any chest pain, dyspnea, nausea, vomiting Review of Systems Review of Systems: All systems reviewed & are unremarkable except as noted in Subjective Physical Exam Physical Exam: Physical Exam: Vitals signs as noted above General Appearance:Moderately built and nourished, chronic ill appearing Head: normocephalic, Atraumatic Eyes: normal inspection, EOMI Neck: supple, Trachea midline Respiratory/Chest: Decreased coarse breath sounds, No accessory muscle use Cardiovascular: S1, S2, No murmur Abdomen/GI:Soft, non tender, mild distention, Bowel sounds present : Suprapubic Catheter Extremities/Musculoskeletal:normal inspection, Trace pedal edema Neurologic/Psych: Quadriplegia, alert, awake and oriented x 3 Skin: normal color, warm.+sacral wound Results & Data Results & Data Vital Signs (Past 12 Hours) Vital Signs Temp Pulse Pulse Resp BP Pulse Ox Pulse Ox 06/25/25 13:29 36.3 C L 64 13 101/68 94 06/25/25 13:29 94 06/25/25 07:46 36.3 C L 59 L 20 102/68 96 06/25/25 07:30 O2 Del Method O2 Del Method 06/25/25 13:29 Room Air 06/25/25 13:29 Room Air 06/25/25 07:46 Room Air 06/25/25 07:30 Room Air Laboratory Results BMP 06/25/25 09:35 Sodium 138 Potassium 4.0 Chloride 102 Carbon Dioxide 31 BUN 14 Creatinine 0.40 L Glucose 115 H Calcium 8.9 (1) Hypotension Hypotension type: unspecified hypotension type Qualified Code(s): I95.9 - Hypotension, unspecified
[2025-06-26] MEDS: DOCUSATE SODIUM/SENNA 50/8.6MG TAB PO STA (00:04)
[2025-06-26 07:20] LABS: Hematocrit (blood only) 32.0 % (42.0-52.0); Hemoglobin 10.1 g/dL (14.0-18.0); Mean Corpuscular Hemoglobin 24.0 pg (25.0-34.0); Mean Corpuscular Volume 76.0 fL (80.0-100.0); Platelet Count 199 K/uL (130-400); RDW Standard Deviation 52.5 fL (36.4-46.3); Red Blood Count 4.21 M/uL (4.70-6.10); White Blood Count 5.64 K/ul (4.8-10.8)
[2025-06-26 07:43] LABS: Anion Gap 6.0 (3-11); Blood Urea Nitrogen 19.0 mg/dl (6-23); Calcium 9.1 mg/dl (8.6-10.3); Carbon Dioxide 29.0 mmol/L (21-32); Chloride 102.0 mmol/L (98-107); Creatinine Clr Calc Pharmacy 266.3 ml/min; Glucose 97.0 mg/dl (70-99(Fasting)); Magnesium 1.9 mg/dl (1.7-2.4); Potassium 3.9 mmol/L (3.5-5.1); Sodium 137.0 mmol/L (136-145)
--- NOTE | 2025-06-26 12:23 | History & Physical Bridge Note ---
Date of Service June 26, 2025 History & Physical Bridge Note Patient for amos removal today under anesthesia. I have discussed the risks options and benefits of the procedure with the patient. The patient understands the risks options and benefits and agrees to the procedure. I have examined the patient, reviewed the History & Physical and in the interval since the performance of the History & Physical I have noted the following changes of clinical significance: no changes noted
--- NOTE | 2025-06-26 12:29 | Hospitalist Progress Note ---
Date of Service June 26, 2025 Assessment & Plan (1) Hypotension: Plan: 49 year old man with history of chronic diastolic heart failure (EF 60%, TTE 2024), hypotension on as needed midodrine, saddle PE on Eliquis, COPD, chronic 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), recurrent UTI secondary to neurogenic bladder with chronic indwelling suprapubic catheter, autonomic dysreflexia, seizure disorder, history of PRES, HCV status post Rx, chronic anemia (baseline hemoglobin 9-10), chronic sacral osteomyelitis as per records, left foot osteomyelitis status post antibiotic Rx, chronic pain, anxiety/mood disorder, substance abuse as per records, history of MRSA, history ESBL who presents with feeling unwell following discharger from [facility] Suspected Catheter-related bloodstream infection Fungemia Rule out bacteremia Possible sepsis due to above -Blood Culture 06/20/25: 2/: Grew Georgina parapsilosis; 08/11 growing Stah Pasteuri -Repeat blood cultures 06/23/25: negative to date -Urine culture negative -ECHO: No regional wall motion abnormality. Borderline concentric LVH. EF 65 to 70%. Left ventricle is hyperdynamic. Right ventricle is normal in size and function. LV diastolic function is normal. No valvular vegetation noted on echo. Continue IV daptomycin and caspofungin ID recs noted Plan for removal of Grande Catheter removal today Will discuss with infectious disease for final recommendations after catheter removal Constipation No signs of obstruction on CT Continue bowel regimen. Encouraged to take the lactulose which he occasionally refuses Had bowel movements Abnormal urinalysis Complicated UTI ruled out Urine culture negative Exchanged Hartman catheter during this hospitalization Chronic hypotension H/O Autonomic dysreflexia Continue midodrine Monitor blood pressure Sacral decubitus ulcer--chronic Foot pressure ulcer Wound culture from sacrum grew MRSA Continue wound care [id number] mattress Other chronic conditions: Chronic diastolic heart failure (EF 60%, TTE 2024): Not on diuretics at home. 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 Avoid IV opioids Anxiety/mood disorder, at baseline--continue home meds Tobacco/substance abuse as per records--Nicotine patch Paraplegia--fall precautions DVT Px: Eliquis Code Status Full code I spent a total of 50 minutes coordinating, documenting and providing care for this patient excluding time spent in performance of separately billed services Admission and Anticipated Discharge Date Admission Date: June 20, 2025 Subjective Patient seen and examined Reports central abd pain this morning. Stated his stool was hard yesterday No other new complaints. He is anxious about planned procedure Physical Exam Constitutional: + well hydrated; no acute distress Eyes: PERRL, conjunctivae normal, anicteric sclerae ENMT: external ear and nose normal, oropharynx normal Respiratory: Not in resp distress, diminished breath sounds Cardiovascular: S1 S2 Gastrointestinal (Abdomen): Soft, mild tenderness, normal bowel sounds Musculoskeletal: UE contractures No pedal edema Neurologic: PERRL EOMI +quadriplegia. Psychiatric: Orientation: alert and oriented x 3 Genitourinary: Suprapubic hartman Results & Data Results & Data Vital Signs (Past 12 Hours) Vital Signs Temp Pulse Resp BP Pulse Ox O2 Del Method 06/26/25 07:49 36.4 C L 55 L 16 154/89 H 94 Room Air Laboratory Results Abnormal lab results 06/26/25 Range/Units 06:53 RBC 4.21 L (4.70-6.10) M/uL Hgb 10.1 L (14.0-18.0) g/dL Hct 32.0 L (42.0-52.0) % MCV 76.0 L (80.0-100.0) fL MCH 24.0 L (25.0-34.0) pg MCHC 31.6 L (32.0-36.0) g/dL RDW Std Deviation 52.5 H (36.4-46.3) fL RDW Coeff of Adelia 19.3 H (11.5-14.5) % MPV 9.3 L (9.4-12.4) fL Creatinine 0.37 L (0.6-1.4) mg/dl BUN/Creatinine Ratio 51.4 H (10-20) (1) Hypotension Hypotension type: unspecified hypotension type Qualified Code(s): I95.9 - Hypotension, unspecified
[2025-06-26] MEDS ORDERED: LIDOCAINE 2% 2 ML VIAL/AMP(20MG/ML) INFIL ONE (13:03)
[2025-06-26] MEDS ORDERED: PROPOFOL IV EMULSION 10 MG/ML 20 ML VIAL IV ONE (13:03)
[2025-06-26] MEDS ORDERED: GLYCOPYRROLATE 0.2 MG/ML VIAL ONE (13:03)
[2025-06-26] MEDS ORDERED: KETAMINE HCL 10MG/ML SYR ONE (13:03)
[2025-06-26] MEDS ORDERED: ONDANSETRON INJ 2 MG/ML 2 ML VIAL ONE (13:18)
[2025-06-26] MEDS ORDERED: ONDANSETRON INJ 2 MG/ML 2 ML VIAL IV PRN (13:38)
[2025-06-26] MEDS ORDERED: ATROPINE SULFATE 0.1 MG/ML 10ML SYR IV PRN (13:38)
--- NOTE | 2025-06-26 13:38 | Anesthesiology Consultation ---
Date of Service June 26, 2025 Assessment & Plan ASA ASA4 Proposed Anesthesia Anesthesia Type: MAC Risk / Benefits Reviewed With: PT / POA / Parent / Guardian, Accepts Plan and Informed Consent Obtained History Surgery Operation Date: 06/24/25 13:30 Proposed Procedures p Grande Catheter Removal - Martin Alonso MD Operation Date: 06/26/25 14:50 Proposed Procedures p Grande Catheter Removal - Martin Alonso MD Height/Weight Height: 5 ft 9 in Weight: 86.7 kg Allergies Allergy/AdvReac Type Severity Reaction Status Date / Time Opioids - Morphine Analogues AdvReac Severe severe Verified 04/26/25 01:40 bradycardia cefepime AdvReac Intermediate seizures Verified 04/26/25 20:11 Medications Home Medications Medication Instructions Recorded Confirmed Last Taken albuterol sulfate 2.5 mg/3 mL 1.25 mg inhalation Q4H PRN 08/26/24 06/21/25 03/20/25 (0.083 %) solution for nebulization Shortness Of Breath Or Wheezing baclofen 10 mg tablet 20 mg PO TID 08/26/24 06/21/25 04/25/25 bisacodyl 10 mg rectal suppository 10 mg RI QAM 08/26/24 06/21/25 04/25/25 budesonide-formoterol HFA 160 2 puff inhalation AMHS 08/26/24 06/21/25 04/25/25 mcg-4.5 mcg/actuation aerosol inhaler docusate sodium 100 mg capsule 100 mg PO AMPM PRN Constipation 08/26/24 06/21/25 03/20/25 hydroxyzine HCl 25 mg tablet 25 mg PO DAILY PRN Anxiety 08/26/24 06/21/25 03/20/25 lactulose 10 gram/15 mL oral 20 g PO TID 08/26/24 06/21/25 04/25/25 solution midodrine 10 mg tablet 10 mg PO TID 08/26/24 06/21/25 03/20/25 oxybutynin chloride 10 mg 10 mg PO QAM 08/26/24 06/21/25 04/25/25 tablet,extended release 24 hr pantoprazole 40 mg tablet,delayed 40 mg PO QAM 08/26/24 06/21/25 04/25/25 release sennosides 8.6 mg-docusate sodium 2 tab PO HS 08/26/24 06/21/25 04/25/25 50 mg tablet (Senexon-S) tiotropium bromide 2.5 2 puff inhalation QAM 08/26/24 06/21/25 04/25/25 mcg/actuation mist for inhalation (Spiriva Respimat) acetaminophen 325 mg tablet 650 mg PO Q6 PRN Fever Or Pain 09/30/24 06/21/25 03/20/25 ondansetron 4 mg disintegrating 4 mg translingual Q6 PRN Nausea 09/30/24 06/21/25 03/20/25 tablet apixaban 5 mg tablet (Eliquis) 5 mg PO AMHS 03/21/25 06/21/25 04/25/25 levetiracetam 1,000 mg tablet 1,000 mg PO AMHS 03/21/25 06/21/25 04/25/25 duloxetine 60 mg capsule,delayed 60 mg PO QAM #30 caps 04/17/25 06/21/25 04/25/25 release pregabalin 75 mg capsule (Lyrica) 75 mg PO TID #90 caps 04/17/25 06/21/25 04/25/25 sodium chloride 0.9 % (flush) 10 ml IV DIRECTED 04/26/25 06/21/25 Unknown oxycodone 15 mg tablet 15 mg PO Q4H PRN severe pain 04/27/25 06/21/25 Unknown (scale score 7-10) #40 tabs diclofenac sodium 1 % topical gel 2 g topical QID PRN Pain 06/21/25 06/21/25 Unknown guaifenesin 100 mg/5 mL oral liquid 200 mg PO QID PRN Cough 06/21/25 06/21/25 Unknown heparin, porcine (PF) 10 unit/mL 10 unit IV UD 06/21/25 06/21/25 Unknown intravenous syringe (Heparin Lock Flush (Porcine) (PF)) melatonin 3 mg capsule 3 mg PO HS 06/21/25 06/21/25 Unknown multivitamin 1 tab PO QAM 06/21/25 06/21/25 Unknown naloxone 0.4 mg/mL injection 0 mg intranasal UD 06/21/25 06/21/25 Unknown solution simethicone 80 mg chewable tablet 80 mg PO TID 06/21/25 06/21/25 Unknown Active Medications Generic Name Dose Route Start Last Admin Trade Name Freq PRN Reason Stop Dose Admin Acetaminophen 650 mg 06/21/25 01:26 06/25/25 17:19 Acetaminophen 325 Mg Tab PO 07/21/25 01:25 650 mg Q6 PRN Administration Fever Or Pain Apixaban 5 mg 06/21/25 09:00 06/26/25 09:23 Apixaban 5 Mg Tablet PO 07/21/25 08:59 5 mg AMHS ROSALES Administration Baclofen 10 mg 06/21/25 09:00 06/26/25 09:30 Baclofen 10 Mg Tab PO 07/21/25 08:59 10 mg TID ROSALES Administration Bisacodyl 10 mg 06/22/25 08:26 06/25/25 21:31 Bisacodyl 10 Mg Supp RI 07/22/25 08:25 10 mg DAILY PRN Administration Constipation Diclofenac Sodium 2 gm 06/21/25 01:26 06/24/25 06:06 Diclofenac Sod 1% Gel 100 Gm Tube EXT 07/21/25 01:25 2 gm QID PRN Administration Pain Protocol Duloxetine HCl 60 mg 06/21/25 09:00 06/26/25 09:23 Duloxetine Hcl 60 Mg Cap PO 07/21/25 08:59 60 mg QAM ROSALES Administration Fluticasone/Vilanterol 1 puffs 06/21/25 09:00 06/26/25 09:25 Fluticasone/Vilanterol 100/25mcg 14 Puffs/Inhaler INH 07/21/25 08:59 1 puffs DAILY ROSALES Administration Protocol Hydroxyzine HCl 25 mg 06/21/25 01:26 06/22/25 19:28 Hydroxyzine Hcl 25 Mg Tab PO 07/21/25 01:25 25 mg BID PRN Administration Anxiety Promethazine HCl 6.25 mg in 50.25 mls @ 201 mls/hr 06/21/25 01:13 06/21/25 10:19 Phenergan IV 07/21/25 01:12 Infused Q6H PRN Infusion Nausea And Vomiting Caspofungin 50 mg/ Sodium 260 mls @ 250 mls/hr 06/22/25 06:00 06/26/25 07:53 Chloride IV 07/02/25 05:59 Infused Q24H ROSALES Infusion Protocol Daptomycin 600 mg/ Syringe 12 mls @ 6 mls/min 06/21/25 04:00 06/26/25 05:40 IV 06/28/25 03:59 6 mls/min Q24H ROSALES Administration Protocol Lactulose 20 gm 06/21/25 09:00 06/26/25 09:25 Lactulose Syrup 20 Gm/30 Ml Udc PO 07/21/25 08:59 20 gm TID ROSALES Administration Levetiracetam 1,000 mg 06/21/25 01:30 06/26/25 09:23 Levetiracetam 500 Mg Tab PO 07/21/25 01:29 1,000 mg AMHS ROSALES Administration Magnesium Chloride 64 mg 06/23/25 09:15 06/26/25 09:23 Magnesium Chloride W/Calcium 64mg Delayed Rel Tab PO 07/23/25 09:14 64 mg BID ROSALES Administration Melatonin 6 mg 06/21/25 01:39 06/25/25 21:31 Melatonin 3 Mg Tab PO 07/21/25 01:38 6 mg HS PRN Administration insomnia Midodrine 10 mg 06/21/25 09:00 06/26/25 07:55 Midodrine Hcl 10 Mg Tab PO 07/21/25 08:59 Not Given TID ROSALES Miscellaneous 1 each 06/21/25 08:59 06/26/25 09:23 Remove Nicoderm Patch N/A 07/21/25 08:58 Not Given DAILY@0859 ROSALES Multivitamins/Folic Acid/Vitamin C 1 tab 06/21/25 09:00 06/26/25 09:24 Multivitamin Chewable Tab PO 07/21/25 08:59 1 tab QAM ROSALES Administration Nicotine 1 patch 06/21/25 09:00 06/26/25 09:26 Nicotine 14 Mg/24 Hr Patch TD 07/21/25 08:59 Not Given DAILY ROSALES Oxybutynin Chloride 10 mg 06/21/25 09:00 06/26/25 09:23 Oxybutynin Chloride Xl 5 Mg Tabcr PO 07/21/25 08:59 10 mg QAM ROSALES Administration Oxycodone HCl 15 mg 06/21/25 01:26 06/26/25 11:42 Oxycodone Hcl Ir 5 Mg Tab (Immediate Release) PO 07/05/25 01:25 15 mg Q4H PRN Administration severe pain (scale score 7-10) Pantoprazole Sodium 40 mg 06/21/25 09:00 06/26/25 09:23 Pantoprazole 40 Mg Tab PO 07/21/25 08:59 40 mg QAM ROSALES Administration Pregabalin 75 mg 06/21/25 09:00 06/26/25 09:25 Pregabalin 75 Mg Cap PO 07/21/25 08:59 75 mg TID ROSALES Administration Senna/Docusate Sodium 1 tab 06/21/25 09:00 06/26/25 09:24 Docusate Sodium/Senna 50/8.6mg Tab PO 07/21/25 08:59 1 tab BID ROSALES Administration Simethicone 80 mg 06/21/25 09:00 06/26/25 09:25 Simethicone 80 Mg Chew PO 07/21/25 08:59 80 mg TID ROSALES Administration Umeclidinium Harwood 1 puffs 06/21/25 09:00 06/26/25 09:25 Umeclidinium Harwood 62.5mcg/Blister 7 Puffs/Inhaler INH 07/21/25 08:59 1 puffs QAM ROSALES Administration NPO Date Last Intake of Fluids: 06/25/25 Time Last Intake of Fluids: 23:00 Last Intake of Fluids Comment: Dr. Alonso made aware. Surgery to continue Date Last Intake of Solids: 06/25/25 Time Last Intake of Solids: 22:00 Past Medical History Medical History Hypokalemia Breakthrough seizure Seizure Medication reaction Left-sided chest pain Drug-induced seizure Open wound of left foot Chronic osteomyelitis of sacrum Sacral decubitus ulcer, stage IV Complicated UTI (urinary tract infection) RSV (respiratory syncytial virus infection) Hypoxia Leg wound, left Leg wound, right 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 Hypoxic respiratory failure 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 Severe sepsis Chest pain Acute hypoxemic respiratory failure Change or removal of nonsurgical wound dressing Pneumonia Encephalopathy Hypotension Acute UTI Sacral wound Quadriplegia Anemia Hypomagnesemia Hypokalemia Complication, blocked suprapubic catheter Leukocytosis Acute urinary retention Hydronephrosis Abdominal pain Left sided abdominal pain Cough Pneumonia Abnormal chest CT Elevated hemidiaphragm Pneumonia involving right lung Soft tissue infection Suprapubic catheter dysfunction Aspiration pneumonia Bacteremia Acute hypotension Acute hypokalemia Abdominal pain Hypoxic respiratory failure Sepsis Acute UTI Acute UTI Abdominal pain Aspiration pneumonitis Pneumonia Paraplegia Exercise / Class Metabolic Activity II 4-5 Yardwork/Stairs/Walk up hill Past Surgical History Surgical History (Updated 06/24/25 @ 11:08 by Adalgisa Meza RN) History of foot surgery metal taken out of right foot History of neck surgery 2 metal rods in neck from sawmill accident (hernando fernandez was caught in the machine and he was pulled through) causing quadriplegia - 06/12/21 History of cholecystectomy History of appendectomy No pertinent past surgical history Past Anesthesia History No Hx of Anesthesia Complications and No Family Hx of Anesthesia Complications History of PONV No Hx of PONV and No Hx of Motion Sickness Social History Smoking Status: Current every day smoker Smoking cigarettes per day: 1/2 pack Do You Dip or Chew Tobacco: No Hx Alcohol Use: Yes Alcohol type: beer alcohol intake frequency: a few times a month Hx Substance Use: Yes substance use type: marijuana Last Used Substance: Days (ago) Review of Systems denies fever/cough/ colds/ chest pain/ SOB/ CAROLEE denies CAROLEE Physical Exam Vital Signs Last Vital Signs Temp 36.4 C L 06/26/25 07:49 Pulse 55 L 06/26/25 07:49 Resp 16 06/26/25 07:49 BP 154/89 H 06/26/25 07:49 Pulse Ox 94 06/26/25 07:49 O2 Del Method Room Air 06/26/25 07:49 O2 Flow Rate 4 06/24/25 11:29 ENMT Mouth: + poor dentition (multiple missing and chipped); no TMJ abnormality and no dentition abnormality Thyromental Distance: > or= 3.5 Finger Breadths Mallampati Class: II Neck + limited neck extension Respiratory normal respiratory effort; no respiratory distress Auscultation: lungs clear to auscultation bilaterally Cardiovascular Rate/Rhythm: regular rate and regular rhythm Neurologic moves all extremities Psychiatric Orientation: alert and oriented x 3 Testing Laboratory Results 06/26/25 06:53 06/26/25 06:53 Urine Color Yellow 06/20/25 19:33 Urine Appearance Cloudy (Clear) A 06/20/25 19:33 Urine pH 6.5 (4.5-7.5) 06/20/25 19:33 Ur Specific [place] 1.010 (1.000-1.030) 06/20/25 19:33 Urine Protein 3+ (Negative) H 06/20/25 19:33 Urine Glucose (UA) Negative (Negative) 06/20/25 19:33 Urine Ketones 1+ (Negative) H 06/20/25 19:33 Urine Nitrite Negative (Negative) 06/20/25 19:33 Ur Leukocyte Esterase 1+ (Negative) H 06/20/25 19:33 Urine RBC 11-20 /hpf (0-2) H 06/20/25 19:33 Urine WBC >50 /hpf (0-5) H 06/20/25 19:33 Ur Epithelial Cells 0-2 /hpf (0-2) 06/20/25 19:33 06/20/25 19:47 Aerobic Blood Culture - Preliminary Blood Georgina parapsilosis Anaerobic Blood Culture - Final No growth in Anaerobic bottle after 5 days. 06/20/25 20:47 Aerobic Blood Culture - Preliminary Blood Staphylococcus pasteuri Georgina parapsilosis Anaerobic Blood Culture - Final 06/23/25 06:46 Aerobic Blood Culture - Preliminary Blood No growth in Aerobic bottle after 48 hours. Anaerobic Blood Culture - Final 06/23/25 06:37 Aerobic Blood Culture - Preliminary Blood No growth in Aerobic bottle after 48 hours. Anaerobic Blood Culture - Final 06/22/25 12:40 Gram Stain - Final Sacrum Wound Culture - Final Staph aureus MRSA 06/20/25 19:33 Urine Culture - Final Urine,Straight Cath No growth - less than 1,000 colonies/mL.
[2025-06-26] MEDS ORDERED: MIDAZOLAM HCL 1 MG/ML 2ML VIAL ONE (13:39)
[2025-06-26] MEDS: LIDOCAINE 1% LOCAL 20 ML VIAL ONE (14:39)
[2025-06-26] MEDS: CLINDAMYCIN/D5W 900 MG/50 ML BAG IV SCH (14:39)
--- NOTE | 2025-06-26 14:41 | Operative Report ---
Post Operative Report Pre & Post Diagnosis Operation Date: 06/26/25 14:50 Pre-Op Diagnosis: FUNGEMIA Post-Op Diagnosis: FUNGEMIA I identified the patient and participated in the time-out.: Yes Procedure Operation Date: 06/26/25 14:50 Actual Procedures p Grande Catheter Removal(Right) - Martin Alonso MD Surgeon Martin Alonso MD Button Sewer none Estimated Blood Loss 5 Findings Consistent with Post-Op Diagnosis Specimens none Anesthesia Type MAC Complications none Disposition Accompanied Patient To Recovery: No Disposition: Recovery Room Indications This is a 49-year-old gentleman with a Grande catheter in place. He was diagnosed with anemia and it was recommended to remove the Grande. I have discussed the risks options and benefits of the procedure with the patient. The patient understands the risks options and benefits and agrees to the procedure. Description of Procedure The patient was taken to the angio suite and placed in the supine position. The patient was identified and a timeout performed. The right side of the neck, chest wall and catheter were prepped and draped in a sterile manner. Local anesthesia was then accomplished. Using sharp and blunt dissection, the Grande was freed up from the surrounding fibrous tissue. It was well incorporated. The Gradne was completely removed. Pressure was then applied and adequate hemostasis was obtained. A sterile dressing was then applied. The patient left the operation room in satisfactory condition and tolerated the procedure well. All needle and sponge counts were correct at the end of the procedure. I attest to the content of the Intraoperative Record and any orders documented therein. Any exceptions are noted below.
[2025-06-26] MEDS: SODIUM CHLORIDE 0.9% 500 ML IV ONE (17:40)
[2025-06-26] MEDS: KETOROLAC TROMETHAMINE 15 MG/ML VIAL IV ONE (23:07)
--- NOTE | 2025-06-26 23:30 | Communication Note ---
Date of Service: June 26, 2025
[2025-06-27 06:50] LABS: Hematocrit (blood only) 31.1 % (42.0-52.0); Hemoglobin 9.8 g/dL (14.0-18.0); Mean Corpuscular Hemoglobin 24.1 pg (25.0-34.0); Mean Corpuscular Volume 76.6 fL (80.0-100.0); Platelet Count 205 K/uL (130-400); RDW Standard Deviation 53.6 fL (36.4-46.3); Red Blood Count 4.06 M/uL (4.70-6.10); White Blood Count 6.01 K/ul (4.8-10.8)
[2025-06-27 07:30] LABS: Anion Gap 5.0 (3-11); Blood Urea Nitrogen 17.0 mg/dl (6-23); Calcium 8.9 mg/dl (8.6-10.3); Carbon Dioxide 29.0 mmol/L (21-32); Chloride 104.0 mmol/L (98-107); Creatinine Clr Calc Pharmacy 240.7 ml/min; Glucose 114.0 mg/dl (70-99(Fasting)); Potassium 4.2 mmol/L (3.5-5.1); Sodium 138.0 mmol/L (136-145)
--- NOTE | 2025-06-27 11:24 | Hospitalist Progress Note ---
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), recurrent UTI secondary to neurogenic bladder with chronic indwelling suprapubic catheter, autonomic dysreflexia, seizure disorder, history of PRES, HCV status post Rx, chronic anemia (baseline hemoglobin 9-10), chronic sacral osteomyelitis as per records, left foot osteomyelitis status post antibiotic Rx, chronic pain, anxiety/mood disorder, substance abuse as per records, history of MRSA, history ESBL who presents with feeling unwell following discharger from [facility] Suspected Catheter-related bloodstream infection Fungemia Rule out bacteremia Possible sepsis due to above -Blood Culture 06/20/25: 2/: Grew Georgina parapsilosis; 08/11 growing Stah Pasteuri -Repeat blood cultures 06/23/25: negative to date -Urine culture negative -ECHO: No regional wall motion abnormality. Borderline concentric LVH. EF 65 to 70%. Left ventricle is hyperdynamic. Right ventricle is normal in size and function. LV diastolic function is normal. No valvular vegetation noted on echo. Continue IV daptomycin and caspofungin ID recs noted Grande Catheter removed on 06/26/25 ID will give final recs tomorrow Constipation No signs of obstruction on CT Continue bowel regimen. Encouraged to take the lactulose which he occasionally refuses Continue to monitor Abnormal urinalysis Complicated UTI ruled out Urine culture negative Exchanged Sanchez catheter during this hospitalization Chronic hypotension H/O Autonomic dysreflexia Continue midodrine Monitor blood pressure Sacral decubitus ulcer--chronic Foot pressure ulcer Wound culture from sacrum grew MRSA Continue wound care [id number] mattress Other chronic conditions: Chronic diastolic heart failure (EF 60%, TTE 2024): Not on diuretics at home. 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 Avoid IV opioids Anxiety/mood disorder, at baseline--continue home meds Tobacco/substance abuse as per records--Nicotine patch Paraplegia--fall precautions DVT Px: Eliquis Code Status Full code I spent a total of 45 minutes coordinating, documenting and providing care for this patient excluding time spent in performance of separately billed services Admission and Anticipated Discharge Date Admission Date: June 20, 2025 Subjective Patient seen and examined Reports some abd discomfort and some constipation. Last BM was yesterday. Passing flatus No nausea, vomiting Physical Exam Constitutional: + well hydrated; no acute distress Eyes: PERRL, conjunctivae normal, anicteric sclerae ENMT: external ear and nose normal, oropharynx normal Respiratory: Not in resp distress, diminished breath sounds Cardiovascular: Rate/Rhythm: regular rate and regular rhythm Gastrointestinal (Abdomen): Inspection/Auscultation: abdomen normal to inspection and normal bowel sounds; abdomen not distended Percussion/Palpation: abdomen nontender Musculoskeletal: UE contractures Neurologic: PERRL EOMI +quadriplegia Psychiatric: Orientation: alert and oriented x 3 Results & Data Results & Data Vital Signs (Past 12 Hours) Vital Signs Temp Pulse Resp BP Pulse Ox O2 Del Method 06/27/25 09:13 133/85 06/27/25 08:15 Room Air 06/27/25 07:18 36.4 C L 56 L 16 125/83 94 Room Air Laboratory Results Abnormal lab results 06/27/25 Range/Units 06:18 RBC 4.06 L (4.70-6.10) M/uL Hgb 9.8 L (14.0-18.0) g/dL Hct 31.1 L (42.0-52.0) % MCV 76.6 L (80.0-100.0) fL MCH 24.1 L (25.0-34.0) pg MCHC 31.5 L (32.0-36.0) g/dL RDW Std Deviation 53.6 H (36.4-46.3) fL RDW Coeff of Adelia 19.1 H (11.5-14.5) % Creatinine 0.41 L (0.6-1.4) mg/dl BUN/Creatinine Ratio 41.5 H (10-20) Glucose 114 H (70-99(Fasting)) mg/dl (1) Hypotension Hypotension type: unspecified hypotension type Qualified Code(s): I95.9 - Hypotension, unspecified
[2025-06-28] MEDS: DAPTOmycin 600 MG in SYRINGE 0 ML IV SCH (06:11)
[2025-06-28 07:40] LABS: Hematocrit (blood only) 30.6 % (42.0-52.0); Hemoglobin 9.7 g/dL (14.0-18.0); Mean Corpuscular Hemoglobin 24.4 pg (25.0-34.0); Mean Corpuscular Volume 76.9 fL (80.0-100.0); Platelet Count 216 K/uL (130-400); RDW Standard Deviation 54.5 fL (36.4-46.3); Red Blood Count 3.98 M/uL (4.70-6.10); White Blood Count 6.34 K/ul (4.8-10.8)
[2025-06-28 07:56] LABS: Anion Gap 5.0 (3-11); Blood Urea Nitrogen 17.0 mg/dl (6-23); Calcium 8.8 mg/dl (8.6-10.3); Carbon Dioxide 29.0 mmol/L (21-32); Chloride 103.0 mmol/L (98-107); Creatinine Clr Calc Pharmacy 206.0 ml/min; Glucose 107.0 mg/dl (70-99(Fasting)); Potassium 4.0 mmol/L (3.5-5.1); Sodium 137.0 mmol/L (136-145)
--- NOTE | 2025-06-28 10:14 | Communication Note ---
Date of Service: June 28, 2025 Microbiology: 06/20: 3 of 6 bottles of blood culture growing Georgina parapsilosis 06/20: 1 of 6 bottles of blood culture growing Staphylococcus pasteuri 06/22: Superficial wound culture from sacral ulcer growing MRSA 06/23: 2 sets of blood culture negative to date Transthoracic echo performed on 06/21: Borderline concentric left ventricular hypertrophy. Hyperdynamic left ventricle. Left ventricular ejection fraction 65 70%. Right ventricle is normal in size and function. Left ventricular diastolic function is normal. No valvular vegetation within the scope limitations of this imaging modality. Impression: 1. Grande catheter associated bloodstream infection - catheter was removed on 06/26/2025 2. Candidemia/coagulase-negative staph bacteremia 3. History of cervical spine injury with paraplegia 4. Neurogenic bladder with indwelling suprapubic catheter 5. Chronic sacral osteomyelitis Recommendations: Please continue IV caspofungin to complete a course of 14 days from the day of Grande catheter removal with anticipated end date of July 09, 2025. Step-down IV daptomycin to oral linezolid 600 mg twice daily to complete a course of 14 days with anticipated end date of July 09, 2025. A new CVC or PICC can placed at this point.
--- NOTE | 2025-06-28 10:40 | Hospitalist Progress Note ---
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), recurrent UTI secondary to neurogenic bladder with chronic indwelling suprapubic catheter, autonomic dysreflexia, seizure disorder, history of PRES, HCV status post Rx, chronic anemia (baseline hemoglobin 9-10), chronic sacral osteomyelitis as per records, left foot osteomyelitis status post antibiotic Rx, chronic pain, anxiety/mood disorder, substance abuse as per records, history of MRSA, history ESBL who presents with feeling unwell following discharger from [facility] Suspected Catheter-related bloodstream infection Fungemia Rule out bacteremia Possible sepsis due to above -Blood Culture 06/20/25: 2/: Grew Georgina parapsilosis; 08/11 growing Stah Pasteuri -Repeat blood cultures 06/23/25: negative to date -Urine culture negative -ECHO: No regional wall motion abnormality. Borderline concentric LVH. EF 65 to 70%. Left ventricle is hyperdynamic. Right ventricle is normal in size and function. LV diastolic function is normal. No valvular vegetation noted on echo. Continue IV daptomycin and caspofungin ID recs noted Grande Catheter removed on 06/26/25 ID recommended continuing caspofungin and to change dapto to linezolid till 07/09/25 Constipation No signs of obstruction on CT Continue bowel regimen. Encouraged to take the lactulose which he occasionally refuses Continue to monitor Abnormal urinalysis Complicated UTI ruled out Urine culture negative Exchanged Sanchez catheter during this hospitalization Chronic hypotension H/O Autonomic dysreflexia Continue midodrine Monitor blood pressure Sacral decubitus ulcer--chronic Foot pressure ulcer Wound culture from sacrum grew MRSA Continue wound care [id number] mattress Other chronic conditions: Chronic diastolic heart failure (EF 60%, TTE 2024): Not on diuretics at home. 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 Avoid IV opioids Anxiety/mood disorder, at baseline--continue home meds Tobacco/substance abuse as per records--Nicotine patch Paraplegia--fall precautions DVT Px: Eliquis Code Status Full code Discussed with CM. Patient cannot be discharged home with PICC/midline due to high risk history, cannot be discharged home right now as sister who is caregiver is incarcerated/insurance issues Will continue management inpatient for now until social issues are sorted out for dispo I spent a total of 50 minutes coordinating, documenting and providing care for this patient excluding time spent in performance of separately billed services Admission and Anticipated Discharge Date Admission Date: June 20, 2025 Subjective Patient seen and examined No new complaints today Physical Exam Constitutional: + well hydrated; no acute distress Eyes: PERRL, conjunctivae normal, anicteric sclerae ENMT: external ear and nose normal, oropharynx normal Respiratory: On room air, diminished breath sounds Cardiovascular: Rate/Rhythm: regular rate and regular rhythm Gastrointestinal (Abdomen): Inspection/Auscultation: abdomen normal to inspection and normal bowel sounds; abdomen not distended Percussion/Palpation: abdomen nontender Neurologic: Quadriplegia Psychiatric: Orientation: alert and oriented x 3 Results & Data Results & Data Vital Signs (Past 12 Hours) Vital Signs Temp Pulse Resp BP BP Pulse Ox O2 Del Method 06/28/25 07:26 36.8 C 61 22 97/62 L 94 Room Air 06/27/25 23:00 36.6 C 55 L 16 147/90 H 95 Room Air Laboratory Results Abnormal lab results 06/28/25 Range/Units 07:22 RBC 3.98 L (4.70-6.10) M/uL Hgb 9.7 L (14.0-18.0) g/dL Hct 30.6 L (42.0-52.0) % MCV 76.9 L (80.0-100.0) fL MCH 24.4 L (25.0-34.0) pg MCHC 31.7 L (32.0-36.0) g/dL RDW Std Deviation 54.5 H (36.4-46.3) fL RDW Coeff of Adelia 19.3 H (11.5-14.5) % Creatinine 0.48 L (0.6-1.4) mg/dl BUN/Creatinine Ratio 35.4 H (10-20) Glucose 107 H (70-99(Fasting)) mg/dl (1) Hypotension Hypotension type: unspecified hypotension type Qualified Code(s): I95.9 - Hypotension, unspecified
[2025-06-28] MEDS: LINEZOLID 600 MG TAB PO SCH (21:12)
[2025-06-29 07:01] LABS: Hematocrit (blood only) 31.9 % (42.0-52.0); Hemoglobin 10.3 g/dL (14.0-18.0); Mean Corpuscular Hemoglobin 24.5 pg (25.0-34.0); Mean Corpuscular Volume 76.0 fL (80.0-100.0); Platelet Count 254 K/uL (130-400); RDW Standard Deviation 52.4 fL (36.4-46.3); Red Blood Count 4.20 M/uL (4.70-6.10); White Blood Count 6.27 K/ul (4.8-10.8)
[2025-06-29 07:21] LABS: Anion Gap 6.0 (3-11); Blood Urea Nitrogen 20.0 mg/dl (6-23); Calcium 9.1 mg/dl (8.6-10.3); Carbon Dioxide 28.0 mmol/L (21-32); Chloride 104.0 mmol/L (98-107); Creatinine Clr Calc Pharmacy 204.2 ml/min; Glucose 80.0 mg/dl (70-99(Fasting)); Potassium 4.0 mmol/L (3.5-5.1); Sodium 138.0 mmol/L (136-145)
--- NOTE | 2025-06-29 12:13 | Hospitalist Progress Note ---
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), recurrent UTI secondary to neurogenic bladder with chronic indwelling suprapubic catheter, autonomic dysreflexia, seizure disorder, history of PRES, HCV status post Rx, chronic anemia (baseline hemoglobin 9-10), chronic sacral osteomyelitis as per records, left foot osteomyelitis status post antibiotic Rx, chronic pain, anxiety/mood disorder, substance abuse as per records, history of MRSA, history ESBL who presents with feeling unwell following discharger from [facility] Suspected Catheter-related bloodstream infection Fungemia Rule out bacteremia Possible sepsis due to above -Blood Culture 06/20/25: 2/: Grew Georgina parapsilosis; 08/11 growing Stah Pasteuri -Repeat blood cultures 06/23/25: negative to date -Urine culture negative -ECHO: No regional wall motion abnormality. Borderline concentric LVH. EF 65 to 70%. Left ventricle is hyperdynamic. Right ventricle is normal in size and function. LV diastolic function is normal. No valvular vegetation noted on echo. ID recs noted Grande Catheter removed on 06/26/25 ID recommended continuing caspofungin and to change dapto to linezolid till 07/09 Duloxetin on hold while on linezolid Constipation No signs of obstruction on CT Continue bowel regimen. Encouraged to take the lactulose which he occasionally refuses Continue to monitor Abnormal urinalysis Complicated UTI ruled out Urine culture negative Exchanged Sanchez catheter during this hospitalization Chronic hypotension H/O Autonomic dysreflexia Continue midodrine Monitor blood pressure Sacral decubitus ulcer--chronic Foot pressure ulcer Wound culture from sacrum grew MRSA Continue wound care [id number]-loud mattress Other chronic conditions: Chronic diastolic heart failure (EF 60%, TTE 2024): Not on diuretics at home. 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 Avoid IV opioids Anxiety/mood disorder, at baseline--continue home meds Tobacco/substance abuse as per records--Nicotine patch Paraplegia--fall precautions DVT Px: Eliquis Code Status Full code I spent a total of 35 minutes coordinating, documenting and providing care for this patient excluding time spent in performance of separately billed services Admission and Anticipated Discharge Date Admission Date: June 20, 2025 Subjective Patient seen and examined No complaints today Physical Exam Constitutional: + well hydrated; no acute distress Eyes: PERRL, conjunctivae normal, anicteric sclerae ENMT: external ear and nose normal, oropharynx normal Respiratory: On room air, diminished breath sounds Cardiovascular: Rate/Rhythm: regular rate and regular rhythm Gastrointestinal (Abdomen): Inspection/Auscultation: abdomen normal to inspection and normal bowel sounds; abdomen not distended Percussion/Palpation: abdomen nontender Neurologic: Quadriplegia Psychiatric: Orientation: alert and oriented x 3 Results & Data Results & Data Vital Signs (Past 12 Hours) Vital Signs Temp Pulse Resp BP Pulse Ox O2 Del Method 06/29/25 07:04 36.4 C L 53 L 16 134/79 94 Room Air Laboratory Results Abnormal lab results 06/29/25 Range/Units 06:43 RBC 4.20 L (4.70-6.10) M/uL Hgb 10.3 L (14.0-18.0) g/dL Hct 31.9 L (42.0-52.0) % MCV 76.0 L (80.0-100.0) fL MCH 24.5 L (25.0-34.0) pg RDW Std Deviation 52.4 H (36.4-46.3) fL RDW Coeff of Adelia 19.1 H (11.5-14.5) % Creatinine 0.49 L (0.6-1.4) mg/dl BUN/Creatinine Ratio 40.8 H (10-20) (1) Hypotension Hypotension type: unspecified hypotension type Qualified Code(s): I95.9 - Hypotension, unspecified
[2025-06-30 07:18] LABS: Hematocrit (blood only) 33.7 % (42.0-52.0); Hemoglobin 10.2 g/dL (14.0-18.0); Mean Corpuscular Hemoglobin 23.9 pg (25.0-34.0); Mean Corpuscular Volume 79.1 fL (80.0-100.0); Platelet Count 251 K/uL (130-400); RDW Standard Deviation 55.3 fL (36.4-46.3); Red Blood Count 4.26 M/uL (4.70-6.10); White Blood Count 6.33 K/ul (4.8-10.8)
[2025-06-30 07:39] LABS: Anion Gap 5.0 (3-11); Blood Urea Nitrogen 21.0 mg/dl (6-23); Calcium 8.9 mg/dl (8.6-10.3); Carbon Dioxide 27.0 mmol/L (21-32); Chloride 107.0 mmol/L (98-107); Creatinine Clr Calc Pharmacy 185.2 ml/min; Glucose 104.0 mg/dl (70-99(Fasting)); Potassium 3.9 mmol/L (3.5-5.1); Sodium 139.0 mmol/L (136-145)
--- NOTE | 2025-06-30 12:13 | Hospitalist Progress Note ---
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), recurrent UTI secondary to neurogenic bladder with chronic indwelling suprapubic catheter, autonomic dysreflexia, seizure disorder, history of PRES, HCV status post Rx, chronic anemia (baseline hemoglobin 9-10), chronic sacral osteomyelitis as per records, left foot osteomyelitis status post antibiotic Rx, chronic pain, anxiety/mood disorder, substance abuse as per records, history of MRSA, history ESBL who presents with feeling unwell following discharger from [facility] Suspected Catheter-related bloodstream infection Fungemia Rule out bacteremia Possible sepsis due to above -Blood Culture 06/20/25: 2/: Grew Georgina parapsilosis; 08/11 growing Stah Pasteuri -Repeat blood cultures 06/23/25: negative to date -Urine culture negative -ECHO: No regional wall motion abnormality. Borderline concentric LVH. EF 65 to 70%. Left ventricle is hyperdynamic. Right ventricle is normal in size and function. LV diastolic function is normal. No valvular vegetation noted on echo. ID recs noted Grande Catheter removed on 06/26/25 ID recommended continuing caspofungin and to change dapto to linezolid till 07/09 Duloxetin on hold while on linezolid Constipation No signs of obstruction on CT Continue bowel regimen. Encouraged to take the lactulose which he occasionally refuses Continue to monitor Abnormal urinalysis Complicated UTI ruled out Urine culture negative Exchanged Sanchez catheter during this hospitalization Chronic hypotension H/O Autonomic dysreflexia Continue midodrine Monitor blood pressure Sacral decubitus ulcer--chronic Foot pressure ulcer Wound culture from sacrum grew MRSA Continue wound care [id number] mattress Other chronic conditions: Chronic diastolic heart failure (EF 60%, TTE 2024): Not on diuretics at home. 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 Avoid IV opioids Anxiety/mood disorder, at baseline--continue home meds Tobacco/substance abuse as per records--Nicotine patch Paraplegia--fall precautions DVT Px: Eliquis Code Status Full code I spent a total of 35 minutes coordinating, documenting and providing care for this patient excluding time spent in performance of separately billed services Admission and Anticipated Discharge Date Admission Date: June 20, 2025 Subjective Patient seen and examined Reports only chronic pain in back and mild abd discomfort Physical Exam Constitutional: + well hydrated; no acute distress Eyes: PERRL, conjunctivae normal, anicteric sclerae ENMT: external ear and nose normal, oropharynx normal Respiratory: On room air, diminished breath sounds lung bases Cardiovascular: Rate/Rhythm: regular rate and regular rhythm Gastrointestinal (Abdomen): Inspection/Auscultation: abdomen normal to inspection and normal bowel sounds; abdomen not distended Percussion/Palpation: abdomen nontender Musculoskeletal: Quadriplegia Psychiatric: Orientation: alert and oriented x 3 Results & Data Results & Data Vital Signs (Past 12 Hours) Vital Signs Temp Pulse Resp BP Pulse Ox O2 Del Method 06/30/25 07:53 36.7 C 49 L 16 129/83 96 Room Air Laboratory Results Abnormal lab results 06/30/25 Range/Units 06:39 RBC 4.26 L (4.70-6.10) M/uL Hgb 10.2 L (14.0-18.0) g/dL Hct 33.7 L (42.0-52.0) % MCV 79.1 L (80.0-100.0) fL MCH 23.9 L (25.0-34.0) pg MCHC 30.3 L (32.0-36.0) g/dL RDW Std Deviation 55.3 H (36.4-46.3) fL RDW Coeff of Adelia 19.3 H (11.5-14.5) % Creatinine 0.54 L (0.6-1.4) mg/dl BUN/Creatinine Ratio 38.9 H (10-20) Glucose 104 H (70-99(Fasting)) mg/dl (1) Hypotension Hypotension type: unspecified hypotension type Qualified Code(s): I95.9 - Hypotension, unspecified
[2025-07-01 08:04] LABS: Hematocrit (blood only) 31.2 % (42.0-52.0); Hemoglobin 9.6 g/dL (14.0-18.0); Mean Corpuscular Hemoglobin 23.9 pg (25.0-34.0); Mean Corpuscular Volume 77.8 fL (80.0-100.0); Platelet Count 238 K/uL (130-400); RDW Standard Deviation 54.2 fL (36.4-46.3); Red Blood Count 4.01 M/uL (4.70-6.10); White Blood Count 7.07 K/ul (4.8-10.8)
[2025-07-01 08:24] LABS: Anion Gap 5.0 (3-11); Blood Urea Nitrogen 17.0 mg/dl (6-23); Calcium 8.8 mg/dl (8.6-10.3); Carbon Dioxide 25.0 mmol/L (21-32); Chloride 109.0 mmol/L (98-107); Creatinine Clr Calc Pharmacy 180.7 ml/min; Glucose 86.0 mg/dl (70-99(Fasting)); Potassium 3.9 mmol/L (3.5-5.1); Sodium 139.0 mmol/L (136-145)
--- NOTE | 2025-07-01 14:51 | Hospitalist Progress Note ---
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), recurrent UTI secondary to neurogenic bladder with chronic indwelling suprapubic catheter, autonomic dysreflexia, seizure disorder, history of PRES, HCV status post Rx, chronic anemia (baseline hemoglobin 9-10), chronic sacral osteomyelitis as per records, left foot osteomyelitis status post antibiotic Rx, chronic pain, anxiety/mood disorder, substance abuse as per records, history of MRSA, history ESBL who presents with feeling unwell following discharger from [facility] Suspected Catheter-related bloodstream infection Fungemia Rule out bacteremia Possible sepsis due to above -Blood Culture 06/20/25: 2/: Grew Georgina parapsilosis; 08/11 growing Stah Pasteuri -Repeat blood cultures 06/23/25: negative to date -Urine culture negative -ECHO: No regional wall motion abnormality. Borderline concentric LVH. EF 65 to 70%. Left ventricle is hyperdynamic. Right ventricle is normal in size and function. LV diastolic function is normal. No valvular vegetation noted on echo. ID recs noted Grande Catheter removed on 06/26/25 ID recommended continuing caspofungin and to change dapto to linezolid till 07/09 Duloxetin on hold while on linezolid Constipation No signs of obstruction on CT Continue bowel regimen. Encouraged to take the lactulose which he occasionally refuses Continue to monitor Abnormal urinalysis Complicated UTI ruled out Urine culture negative Exchanged Sanchez catheter during this hospitalization Chronic hypotension H/O Autonomic dysreflexia Continue midodrine Monitor blood pressure Sacral decubitus ulcer--chronic Foot pressure ulcer Wound culture from sacrum grew MRSA Continue wound care [id number] mattress Other chronic conditions: Chronic diastolic heart failure (EF 60%, TTE 2024): Not on diuretics at home. 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 Avoid IV opioids Anxiety/mood disorder, at baseline--continue home meds Tobacco/substance abuse as per records--Nicotine patch Paraplegia--fall precautions DVT Px: Eliquis Code Status Full code Patient likely going to be here till IV caspofungin is completed on 07/09/25 as sister who is caregiver is recently incarcerated CM on board I spent a total of 30 minutes coordinating, documenting and providing care for this patient excluding time spent in performance of separately billed services Admission and Anticipated Discharge Date Admission Date: June 20, 2025 Subjective Patient seen and examined No new complaints today Physical Exam Constitutional: + well hydrated; no acute distress Eyes: PERRL, conjunctivae normal, anicteric sclerae ENMT: external ear and nose normal, oropharynx normal Respiratory: Not in resp distress, diminished breath sounds Cardiovascular: Rate/Rhythm: regular rate and regular rhythm Gastrointestinal (Abdomen): Inspection/Auscultation: abdomen normal to inspection and normal bowel sounds; abdomen not distended Percussion/Palpation: abdomen nontender Neurologic: Quadriplegia Psychiatric: Orientation: alert and oriented x 3 Results & Data Results & Data Vital Signs (Past 12 Hours) Vital Signs Temp Pulse Resp BP BP Pulse Ox O2 Del Method 07/01/25 12:48 36.5 C 48 L 18 99/64 L 95 Room Air 07/01/25 08:07 36.2 C L 43 L 16 112/71 96 Room Air Laboratory Results Abnormal lab results 07/01/25 Range/Units 07:47 RBC 4.01 L (4.70-6.10) M/uL Hgb 9.6 L (14.0-18.0) g/dL Hct 31.2 L (42.0-52.0) % MCV 77.8 L (80.0-100.0) fL MCH 23.9 L (25.0-34.0) pg MCHC 30.8 L (32.0-36.0) g/dL RDW Std Deviation 54.2 H (36.4-46.3) fL RDW Coeff of Adelia 19.0 H (11.5-14.5) % MPV 9.1 L (9.4-12.4) fL Chloride 109 H (98-107) mmol/L Creatinine 0.50 L (0.6-1.4) mg/dl BUN/Creatinine Ratio 34.0 H (10-20) (1) Hypotension Hypotension type: unspecified hypotension type Qualified Code(s): I95.9 - Hypotension, unspecified
--- NOTE | 2025-07-02 02:27 | Communication Note ---
Date of Service: July 02, 2025 Patient complaining of "pain across his abdomen, not usually this bad" as per RN. Patient asking for medication stronger than oxycodone. Last BM yesterday as per RN. AP Worsening abdominal pain Eliquis Rx for PE CT abdomen pelvis Hold Eliquis until CT resulted CTAP result 1. Interval increased in CBD diameter with minimal to mild dilatation of central and bilobar intrahepatic biliary radicles (may be inflammatory "Cholangitis" rather than obstructive) yet that needs clinical, laboratory, and better MRCP assessment. 2. Evidence of sacral decubitus ulcer with focal soft tissue defect and non-visualization of the distal sacrum and coccyx is seen. Unchanged. 3. Multiple bilateral renal stones are larger on the left side with no significant back pressure. Unchanged. 4. The colon is heavily loaded by inspissated fecal matter, notably at the rectum and sigmoid colon with rectal fecal impaction. unchanged. AP Possible biliary obstruction on CT N.p.o. Check LFTs for now MRCP contingent on LFTs result
[2025-07-02] MEDS: KETOROLAC TROMETHAMINE 15 MG/ML VIAL IV ONE (02:41)
[2025-07-02] MEDS: OPTIRAY 320 100ml IV ONE (03:05)
--- NOTE | 2025-07-02 04:40 | CT Scan Report ---
EXAM: CT abd pelvis IV con only CLINICAL HISTORY: Worsening abd pain, noac. TECHNIQUE: Contrast-enhanced CT of the abdomen and pelvis was performed, with the following protocol: axial images with, and reconstructed coronal and sagittal images. Intravenous contrast (93 ML OPTIRAY 320 )was administered. One of the following dose reduction techniques was utilized for this exam: Automated exposure control, adjustment of the mA and/or kV according to patient size, and use of iterative reconstruction. 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 No focal lesions, cysts, or masses were identified. Hepatic vasculature are unremarkable. Gallbladder and Biliary System: Evidence of prior cholecystectomy with a clear cholecystectomy bed. Interval increased in CBD diameter, reaching 1.7 cm compared to 1.1 cm at the last study, with interval progression of minimal to mild dilatation of central and bilobar intrahepatic biliary radicles. Pancreas: Pancreatic head, body, and tail are visualized and appear normal in size and density. No pancreatic masses or calcifications were noted. The pancreatic duct is not dilated. Spleen: Normal in size, shape, and density. No splenic lesions or masses were identified. Appendix: Not clearly seen still with no appendiceal abscess or perforation. Kidneys and Adrenal Glands: Multiple left renal calyceal stones the largest is middle calyceal about 11 x 7.2 mm and 700 HU; unchanged. tiny right middle calyceal stone 2 mm. Small right lower calyceal parenchymal hyperdense focus about 7 mm likely hyperdense cyst. Unchanged. Both kidneys are normal in size, shape, and position. Cortical thickness is within normal limits. No hydronephrosis. Adrenal glands are unremarkable with no evidence of masses or hyperplasia. Pelvis: Urinary Bladder: Suprapubic cystostomy with intraluminal catheter within the urinary bladder. Mild diffuse mural thickening of the renal bladder with air-fluid level. Tiny dependent stones within the lumen of the urinary bladder. Prostate: Normal in size and contour. No focal lesions or masses identified. Seminal Vesicles: Normal in size and appearance. No abnormalities noted. Rectum and Sigmoid Colon: The colon is heavily loaded by inspissated fecal matter notably at the rectum and sigmoid colon, with the rectal fecal impaction. unchanged. Peritoneal and Retroperitoneal Structures: No free fluid or abnormal fluid collections were identified within the abdomen or pelvis. No lymphadenopathy was noted. Bowel: No evidence of bowel obstruction or wall thickening. Bones and Soft Tissues: Evidence of sacral decubitus ulcer with focal soft tissue defect and erosion of distal sacrum and coccyx is seen. Unchanged. Basal chest scans showed multiple bilateral atelectatic plates. IMPRESSION: 1. Interval increased in CBD diameter with minimal to mild dilatation of central and bilobar intrahepatic biliary radicles (may be inflammatory "Cholangitis" rather than obstructive) yet that needs clinical, laboratory, and better MRCP assessment. 2. Evidence of sacral decubitus ulcer with focal soft tissue defect and non-visualization of the distal sacrum and coccyx is seen. Unchanged. 3. Multiple bilateral renal stones are larger on the left side with no significant back pressure. Unchanged. 4. The colon is heavily loaded by inspissated fecal matter, notably at the rectum and sigmoid colon with rectal fecal impaction. unchanged. Electronically signed by Luke Dunne 07-02-2025 04:39 AM
[2025-07-02 06:26] LABS: Hematocrit (blood only) 34.0 % (42.0-52.0); Hemoglobin 10.7 g/dL (14.0-18.0); Immature Granulocytes # (auto) 0.02 K/uL (0.01-0.20); Immature Granulocytes % (auto) 0.3 %; Mean Corpuscular Hemoglobin 24.4 pg (25.0-34.0); Mean Corpuscular Volume 77.4 fL (80.0-100.0); Platelet Count 270 K/uL (130-400); RDW Standard Deviation 54.1 fL (36.4-46.3); Red Blood Count 4.39 M/uL (4.70-6.10); White Blood Count 7.22 K/ul (4.8-10.8)
[2025-07-02 06:54] LABS: Alanine Aminotransferase 12.0 U/L (7-52); Albumin Globulin Ratio 1.2 (0.9-2); Albumin Level 3.7 gm/dl (3.4-5.0); Alkaline Phosphatase 169.0 U/L (34-104); Anion Gap 5.0 (3-11); Bilirubin,Total 0.4 mg/dl (0.2-1.0); Blood Urea Nitrogen 17.0 mg/dl (6-23); Calcium 9.3 mg/dl (8.6-10.3); Carbon Dioxide 26.0 mmol/L (21-32); Chloride 108.0 mmol/L (98-107); Creatinine Clr Calc Pharmacy 227.3 ml/min; Globulin 3.0 gm/dl (2.5-4.0); Glucose 97.0 mg/dl (70-99(Fasting)); Lipase 21.0 U/L (11-82); Potassium 4.2 mmol/L (3.5-5.1); Sodium 139.0 mmol/L (136-145); Total Protein 6.7 gm/dl (6.0-8.3)
[2025-07-02 07:02] LABS: Partial Thromboplastin Time 26 Seconds (21-31)
--- NOTE | 2025-07-02 09:11 | Hospitalist Progress Note ---
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), recurrent UTI secondary to neurogenic bladder with chronic indwelling suprapubic catheter, autonomic dysreflexia, seizure disorder, history of PRES, HCV status post Rx, chronic anemia (baseline hemoglobin 9-10), chronic sacral osteomyelitis as per records, left foot osteomyelitis status post antibiotic Rx, chronic pain, anxiety/mood disorder, substance abuse as per records, history of MRSA, history ESBL who presents with feeling unwell following discharger from [facility] Suspected Catheter-related bloodstream infection Fungemia Rule out bacteremia Possible sepsis due to above -Blood Culture 06/20/25: 2/: Grew Georgina parapsilosis; 08/11 growing Stah Pasteuri -Repeat blood cultures 06/23/25: negative to date -Urine culture negative -ECHO: No regional wall motion abnormality. Borderline concentric LVH. EF 65 to 70%. Left ventricle is hyperdynamic. Right ventricle is normal in size and function. LV diastolic function is normal. No valvular vegetation noted on echo. ID recs noted Grande Catheter removed on 06/26/25 ID recommended continuing caspofungin and to change dapto to linezolid till 07/09 Duloxetin on hold while on linezolid Abnormal CT findings from 07/02/25 regarding dilated CBD MRCP noted Biliary dilatation with no common duct stone seen. There is a possible short segment stricture distally at the common bile duct versus dilated common bile duct due to prior cholecystectomy. Tbil is normal 0.4, ALT/AST are normal, Alk P is elevated at 169 (similar to 168 0n 06/20/25) Discussed with GI team who noted they are not able to perform EUS/ERCP here and that patient should be transferred to a facility that can do procedure Called transfer center and spoke with Triage officer for [facility] Transfer for [facility]. She will discuss with GI at [facility] and get back to us Constipation Patient has frequently refused bowel regimen. Went over CT findings again with patient. Encouraged him to take the lactulose and other bowel regimen Reports last BM was yesterday Provided counseling regarding opioids, side effects and need to moderate use Relistor x 1 ordered Abnormal urinalysis Complicated UTI ruled out Urine culture negative Exchanged Sanchez catheter during this hospitalization Chronic hypotension H/O Autonomic dysreflexia Continue midodrine Monitor blood pressure Sacral decubitus ulcer--chronic Foot pressure ulcer Wound culture from sacrum grew MRSA Continue wound care Gyw-hbi-onln mattress Other chronic conditions: Chronic diastolic heart failure (EF 60%, TTE 2024): Not on diuretics at home. 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 Avoid IV opioids Anxiety/mood disorder, at baseline--continue home meds Tobacco/substance abuse as per records--Nicotine patch Paraplegia--fall precautions DVT Px: Eliquis Code Status Full code Patient likely going to be here till IV caspofungin is completed on 07/09/25 as sister who is caregiver is recently incarcerated CM on board I spent a total of 50 minutes coordinating, documenting and providing care for this patient excluding time spent in performance of separately billed services Admission and Anticipated Discharge Date Admission Date: June 20, 2025 Subjective Patient seen and examined Overnight, he had repeat CT abd for increased abd pain Abd CT noted interval increase in CBD diameter with minimal to mild dilatation of central and bilobar intrahepatic biliary radicles, multiple b/l renal stones unchanged, sacral decubitus ulcer unchanged, colon heavily loaded by inspissated fecal matter with rectal fecal impaction unchanged. Patient reports some abd pain this AM as well as chronic back pain States his abd pain improves some with his oxycodone but asks if it can be IV Denied fever, chills, nausea, vomiting Denied cough, SOB Physical Exam Constitutional: + well hydrated; no acute distress Eyes: PERRL, conjunctivae normal, anicteric sclerae ENMT: external ear and nose normal, oropharynx normal Respiratory: Not in resp distress, diminished breath sounds Cardiovascular: Rate/Rhythm: regular rate and regular rhythm Gastrointestinal (Abdomen): Mild distended, soft, nontender, normal bowel sounds Neurologic: Quadriplegia Psychiatric: Orientation: alert and oriented x 3 Results & Data Results & Data Vital Signs (Past 12 Hours) Vital Signs Temp Pulse Resp BP Pulse Ox O2 Del Method 07/02/25 08:06 36.4 C L 44 L 18 127/84 96 Room Air 07/01/25 22:14 36.6 C 60 16 119/75 96 Room Air Laboratory Results Abnormal lab results 07/02/25 Range/Units 06:10 RBC 4.39 L (4.70-6.10) M/uL Hgb 10.7 L (14.0-18.0) g/dL Hct 34.0 L (42.0-52.0) % MCV 77.4 L (80.0-100.0) fL MCH 24.4 L (25.0-34.0) pg MCHC 31.5 L (32.0-36.0) g/dL RDW Std Deviation 54.1 H (36.4-46.3) fL RDW Coeff of Adelia 19.1 H (11.5-14.5) % MPV 9.3 L (9.4-12.4) fL Crosby # (Auto) 0.62 H (0.11-0.59) K/uL Chloride 108 H (98-107) mmol/L Creatinine 0.43 L (0.6-1.4) mg/dl BUN/Creatinine Ratio 39.5 H (10-20) Alkaline Phosphatase 169 H (34-104) U/L (1) Hypotension Hypotension type: unspecified hypotension type Qualified Code(s): I95.9 - Hypotension, unspecified
[2025-07-02] MEDS: CASPOFUNGIN 50 MG in SODIUM CHLORIDE 0.9% 250 ML IV SCH (10:06)
[2025-07-02] MEDS: LORazepam 0.5 MG TAB PO PRN (12:13)
--- NOTE | 2025-07-02 13:42 | Magnetic Resonance Report ---
MR MRCP CLINICAL HISTORY: abd pain COMPARISON STUDY: CT earlier today FINDINGS: There is motion artifact. Gallbladder is surgically absent. There is dilatation of the comm on bile duct measuring up to 1.5 cm diameter. There is mild intrahepatic biliary dilatation. There is mild dilatation of the pancreatic duct measuring up to 5 mm diameter. There is abrupt short narrowin g at the distal most aspect of the common bile duct and the pancreatic duct. No stones seen in the co mmon bile duct. IMPRESSION: Biliary dilatation with no common duct stone seen. There is a possible short segment str icture distally at the common bile duct versus dilated common bile duct due to prior cholecystectomy. . ACT 112: Negative or not required by law. Electronically signed by: Kareem Maurer M.D. 07/02/2025 1:41 PM
--- NOTE | 2025-07-02 13:59 | Communication Note ---
Date of Service: July 02, 2025 Imaging reviewed, case reviewed w/ attending and discussed w/ hospitalist medicine physician. Given concern for a biliary stricture on MRCP recommend t ransfer to a center with both EUS and ERCP capability. Recall GI as needed.
[2025-07-02] MEDS: NALOXEGOL OXALATE 25 MG TAB PO ONE (17:36)
--- NOTE | 2025-07-02 22:02 | Communication Note ---
Date of Service: July 02, 2025 Made aware by RN of [facility] transfer center communication. [facility] transfer request declined after review of case by GI specialist (Dr. Mooney). Dr. Mooney states (as per transfer center agent): "I reviewed his imaging. His liver tests are stable and unchanged. He has chronic mild dilated cbd dilation that is also unchanged. Urgent eus is not indicated; there does not appear to be an indication for ercp. I would recommend continued care at [facility]; no need for transfer." Patient Eliquis for chronic PE/DVT prophylaxis resumed.
[2025-07-03 08:10] LABS: Hematocrit (blood only) 32.9 % (42.0-52.0); Hemoglobin 10.1 g/dL (14.0-18.0); Mean Corpuscular Hemoglobin 23.9 pg (25.0-34.0); Mean Corpuscular Volume 78.0 fL (80.0-100.0); Platelet Count 259 K/uL (130-400); RDW Standard Deviation 55.0 fL (36.4-46.3); Red Blood Count 4.22 M/uL (4.70-6.10); White Blood Count 6.36 K/ul (4.8-10.8)
[2025-07-03 08:36] LABS: Alanine Aminotransferase 12.0 U/L (7-52); Albumin Globulin Ratio 1.3 (0.9-2); Albumin Level 3.6 gm/dl (3.4-5.0); Alkaline Phosphatase 157.0 U/L (34-104); Anion Gap 6.0 (3-11); Bilirubin,Total 0.4 mg/dl (0.2-1.0); Blood Urea Nitrogen 16.0 mg/dl (6-23); Calcium 8.9 mg/dl (8.6-10.3); Carbon Dioxide 24.0 mmol/L (21-32); Chloride 110.0 mmol/L (98-107); Creatinine Clr Calc Pharmacy 191.5 ml/min; Globulin 2.8 gm/dl (2.5-4.0); Glucose 97.0 mg/dl (70-99(Fasting)); Potassium 3.9 mmol/L (3.5-5.1); Sodium 140.0 mmol/L (136-145); Total Protein 6.4 gm/dl (6.0-8.3)
--- NOTE | 2025-07-03 13:39 | Hospitalist Progress Note ---
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), recurrent UTI secondary to neurogenic bladder with chronic indwelling suprapubic catheter, autonomic dysreflexia, seizure disorder, history of PRES, HCV status post Rx, chronic anemia (baseline hemoglobin 9-10), chronic sacral osteomyelitis as per records, left foot osteomyelitis status post antibiotic Rx, chronic pain, anxiety/mood disorder, substance abuse as per records, history of MRSA, history ESBL who presents with feeling unwell following discharge from [facility] #Catheter-related bloodstream infection #Fungemia -Blood Culture 06/20/25: 2/: Grew Georgina parapsilosis; 08/11 growing Stah Pasteuri -Repeat blood cultures 06/23/25: negative to date -Urine culture negative -ECHO: No regional wall motion abnormality. Borderline concentric LVH. EF 65 to 70%. Left ventricle is hyperdynamic. Right ventricle is normal in size and function. LV diastolic function is normal. No valvular vegetation noted on echo. -Grande Catheter removed on 06/26/25 Plan ID recommended continuing caspofungin and to change dapto to linezolid through 07/09/25 Will need to be hospitalized until abx regimen is complete Duloxetine on hold while on linezolid #Abnormal CT findings from 07/02/25 regarding dilated CBD MRCP noted Biliary dilatation with no common duct stone seen. There is a possible short segment stricture distally at the common bile duct versus dilated common bile duct due to prior cholecystectomy. Tbil is normal 0.4, ALT/AST are normal, Alk P is elevated at 169 (similar to 168 0n 06/20/25) Discussed with GI team who noted they are not able to perform EUS/ERCP here and that patient should be transferred to a facility that can do procedure GI at [place] reviewed case and deemed there is not an indication for transfer #Constipation Patient has frequently refused bowel regimen. Last BM was 07/03 #Chronic hypotension H/O Autonomic dysreflexia Continue midodrine Monitor blood pressure #Sacral decubitus ulcer--chronic Foot pressure ulcer Wound culture from sacrum grew MRSA Continue wound care Tda-gas-ksur mattress Other chronic conditions: Chronic diastolic heart failure (EF 60%, TTE 2024): Not on diuretics at home. 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 Avoid IV opioids Anxiety/mood disorder, at baseline--continue home meds Tobacco/substance abuse as per records--Nicotine patch Paraplegia--fall precautions DVT Px: Eliquis Code Status Full code I spent a total of 55 minutes coordinating, documenting and providing care for this patient excluding time spent in performance of separately billed services Admission and Anticipated Discharge Date Admission Date: June 20, 2025 Subjective Feeling well today. Patient denies F/C, CP, palpitations, SOB, dyspnea, abd p ain, N/V/D Physical Exam Physical Exam: Vitals and labs reviewed General: Chronically ill appearing in NAD. appears older than stated age HEENT: EOMI, PERRLA Neck: Supple Cardiac: RRR no rubs gallops or murmurs Lungs: CTA no rhonchi wheezing or rales Abd: S NT ND BS positive MSK: Full ROM. No obvious deformities Ext: No Edema cyanosis Skin: Warm, Dry Neuro: AOx3 quadriplegia. at baseline Psych: Normal Mood Results & Data Results & Data Vital Signs (Past 12 Hours) Vital Signs Temp Pulse Resp BP Pulse Ox O2 Del Method 07/03/25 07:02 36.4 C L 47 L 18 101/66 94 Room Air Laboratory Results Abnormal lab results 07/03/25 Range/Units 07:45 RBC 4.22 L (4.70-6.10) M/uL Hgb 10.1 L (14.0-18.0) g/dL Hct 32.9 L (42.0-52.0) % MCV 78.0 L (80.0-100.0) fL MCH 23.9 L (25.0-34.0) pg MCHC 30.7 L (32.0-36.0) g/dL RDW Std Deviation 55.0 H (36.4-46.3) fL RDW Coeff of Adelia 19.3 H (11.5-14.5) % Chloride 110 H (98-107) mmol/L Creatinine 0.51 L (0.6-1.4) mg/dl BUN/Creatinine Ratio 31.4 H (10-20) Alkaline Phosphatase 157 H (34-104) U/L (1) Hypotension Hypotension type: unspecified hypotension type Qualified Code(s): I95.9 - Hypotension, unspecified
[2025-07-04 07:27] LABS: Hematocrit (blood only) 31.3 % (42.0-52.0); Hemoglobin 9.9 g/dL (14.0-18.0); Mean Corpuscular Hemoglobin 24.9 pg (25.0-34.0); Mean Corpuscular Volume 78.6 fL (80.0-100.0); Platelet Count 238 K/uL (130-400); RDW Standard Deviation 54.4 fL (36.4-46.3); Red Blood Count 3.98 M/uL (4.70-6.10); White Blood Count 5.73 K/ul (4.8-10.8)
[2025-07-04 08:20] LABS: Blood Urea Nitrogen 16.0 mg/dl (6-23); Creatinine Clr Calc Pharmacy 177.5 ml/min; Glucose 92.0 mg/dl (70-99(Fasting))
[2025-07-04 08:21] LABS: Anion Gap 8.0 (3-11); Calcium 9.0 mg/dl (8.6-10.3); Carbon Dioxide 24.0 mmol/L (21-32); Chloride 107.0 mmol/L (98-107); Potassium 4.2 mmol/L (3.5-5.1); Sodium 139.0 mmol/L (136-145)
--- NOTE | 2025-07-04 09:56 | Hospitalist Progress Note ---
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), recurrent UTI secondary to neurogenic bladder with chronic indwelling suprapubic catheter, autonomic dysreflexia, seizure disorder, history of PRES, HCV status post Rx, chronic anemia (baseline hemoglobin 9-10), chronic sacral osteomyelitis as per records, left foot osteomyelitis status post antibiotic Rx, chronic pain, anxiety/mood disorder, substance abuse as per records, history of MRSA, history ESBL who presents with feeling unwell following discharge from [facility] #Catheter-related bloodstream infection #Fungemia -Blood Culture 06/20/25: 2/: Grew Georgina parapsilosis; 08/11 growing Stah Pasteuri -Repeat blood cultures 06/23/25: negative to date -Urine culture negative -ECHO: No regional wall motion abnormality. Borderline concentric LVH. EF 65 to 70%. Left ventricle is hyperdynamic. Right ventricle is normal in size and function. LV diastolic function is normal. No valvular vegetation noted on echo. -Grande Catheter removed on 06/26/25 Plan ID recommended continuing caspofungin and to change dapto to linezolid through 07/09/25 Will need to be hospitalized until abx regimen is complete Duloxetine on hold while on linezolid #Abnormal CT findings from 07/02/25 regarding dilated CBD MRCP noted Biliary dilatation with no common duct stone seen. There is a possible short segment stricture distally at the common bile duct versus dilated common bile duct due to prior cholecystectomy. Tbil is normal 0.4, ALT/AST are normal, Alk P is elevated at 169 (similar to 168 0n 06/20/25) Discussed with GI team who noted they are not able to perform EUS/ERCP here and that patient should be transferred to a facility that can do procedure GI at [place] reviewed case and deemed there is not an indication for transfer #Constipation Patient has frequently refused bowel regimen. Last BM was 07/03 #Chronic hypotension H/O Autonomic dysreflexia Continue midodrine Monitor blood pressure #Sacral decubitus ulcer--chronic Foot pressure ulcer Wound culture from sacrum grew MRSA Continue wound care Pga-kof-hqiq mattress Other chronic conditions: Chronic diastolic heart failure (EF 60%, TTE 2024): Not on diuretics at home. 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 Avoid IV opioids Anxiety/mood disorder, at baseline--continue home meds Tobacco/substance abuse as per records--Nicotine patch Paraplegia--fall precautions DVT Px: Eliquis Code Status Full code I spent a total of 55 minutes coordinating, documenting and providing care for this patient excluding time spent in performance of separately billed services Admission and Anticipated Discharge Date Admission Date: June 20, 2025 Subjective Feeling well today. Patient denies F/C, CP, palpitations, SOB, dyspnea, abd p ain, N/V/D Physical Exam Physical Exam: Vitals and labs reviewed General: Chronically ill appearing in NAD. appears older than stated age HEENT: EOMI, PERRLA Neck: Supple Cardiac: RRR no rubs gallops or murmurs Lungs: CTA no rhonchi wheezing or rales Abd: S NT ND BS positive : hartman MSK: Full ROM. No obvious deformities Ext: No Edema cyanosis Skin: Warm, Dry Neuro: AOx3 quadriplegia. at baseline Psych: Normal Mood Results & Data Results & Data Vital Signs (Past 12 Hours) Vital Signs Temp Pulse Resp BP Pulse Ox O2 Del Method 07/04/25 07:51 36.5 C 49 L 16 113/74 96 Room Air Laboratory Results Abnormal lab results 07/04/25 Range/Units 06:45 RBC 3.98 L (4.70-6.10) M/uL Hgb 9.9 L (14.0-18.0) g/dL Hct 31.3 L (42.0-52.0) % MCV 78.6 L (80.0-100.0) fL MCH 24.9 L (25.0-34.0) pg MCHC 31.6 L (32.0-36.0) g/dL RDW Std Deviation 54.4 H (36.4-46.3) fL RDW Coeff of Adelia 19.1 H (11.5-14.5) % Creatinine 0.55 L (0.6-1.4) mg/dl BUN/Creatinine Ratio 29.1 H (10-20) (1) Hypotension Hypotension type: unspecified hypotension type Qualified Code(s): I95.9 - Hypotension, unspecified
[2025-07-05] MEDS: MIDODRINE HCL 10 MG TAB PO STA (01:10)
[2025-07-05] MEDS: SODIUM CHLORIDE 0.9% 1,000 ML IV ONE (01:11)
--- NOTE | 2025-07-05 11:03 | Hospitalist Progress Note ---
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), recurrent UTI secondary to neurogenic bladder with chronic indwelling suprapubic catheter, autonomic dysreflexia, seizure disorder, history of PRES, HCV status post Rx, chronic anemia (baseline hemoglobin 9-10), chronic sacral osteomyelitis as per records, left foot osteomyelitis status post antibiotic Rx, chronic pain, anxiety/mood disorder, substance abuse as per records, history of MRSA, history ESBL who presents with feeling unwell following discharge from [facility] #Catheter-related bloodstream infection #Fungemia -Blood Culture 06/20/25: 2/4: Grew Georgina parapsilosis; 08/11 growing Stah Pasteuri -Repeat blood cultures 06/23/25: negative to date -Urine culture negative -ECHO: No regional wall motion abnormality. Borderline concentric LVH. EF 65 to 70%. Left ventricle is hyperdynamic. Right ventricle is normal in size and function. LV diastolic function is normal. No valvular vegetation noted on echo. -Grande Catheter removed on 06/26/25 -Refused labs today. discussed importance Plan ID recommended continuing caspofungin and to change dapto to linezolid through 07/09/25 Will need to be hospitalized until abx regimen is complete Duloxetine on hold while on linezolid #Constipation Last BM was 07/03, no BM since Eating and drinking without issue. BS positive. no pain Give suppository 07/05 and increase miralax to BID for now IF no BM by tomorrow, give enema #Abnormal CT findings from 07/02/25 regarding dilated CBD MRCP noted Biliary dilatation with no common duct stone seen. There is a possible short segment stricture distally at the common bile duct versus dilated common bile duct due to prior cholecystectomy. Tbil is normal 0.4, ALT/AST are normal, Alk P is elevated at 169 (similar to 168 0n 06/20/25) Discussed with GI team who noted they are not able to perform EUS/ERCP here and that patient should be transferred to a facility that can do procedure GI at [place] reviewed case and deemed there is not an indication for transfer #Chronic hypotension H/O Autonomic dysreflexia Continue midodrine Monitor blood pressure #Sacral decubitus ulcer--chronic Foot pressure ulcer Wound culture from sacrum grew MRSA Continue wound care [id number] mattress Other chronic conditions: Chronic diastolic heart failure (EF 60%, TTE 2024): Not on diuretics at home. 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 Avoid IV opioids Anxiety/mood disorder, at baseline--continue home meds Tobacco/substance abuse as per records--Nicotine patch Paraplegia--fall precautions DVT Px: Eliquis Code Status Full code I spent a total of 51 minutes coordinating, documenting and providing care for this patient excluding time spent in performance of separately billed services Admission and Anticipated Discharge Date Admission Date: June 20, 2025 Subjective Feeling well today. Patient denies F/C, CP, palpitations, SOB, dyspnea, abd pain, N/V/D. his only complaint today is constipation. ate breakfast without issue however. Physical Exam Physical Exam: Vitals and labs reviewed General: Chronically ill appearing in NAD. appears older than stated age HEENT: EOMI, PERRLA Neck: Supple Cardiac: RRR no rubs gallops or murmurs Lungs: CTA no rhonchi wheezing or rales Abd: S NT ND BS positive : SPC, not hartman MSK: Full ROM. No obvious deformities Ext: No Edema cyanosis Skin: Warm, Dry Neuro: AOx3 quadriplegia. at baseline Psych: Normal Mood Results & Data Results & Data Vital Signs (Past 12 Hours) Vital Signs Temp Pulse Resp BP BP Pulse Ox O2 Del Method 07/05/25 07:17 36.6 C 60 15 132/89 97 Room Air 07/05/25 02:39 107/68 07/05/25 02:00 97/63 L 07/05/25 00:40 73 72/43 L (1) Hypotension Hypotension type: unspecified hypotension type Qualified Code(s): I95.9 - Hypotension, unspecified
[2025-07-05] MEDS: SOD PHOSPHATE/SOD BIPHOSPHATE ENEMA 132 ML BTL PR STA ×2 (15:00→23:45)
[2025-07-05] MEDS: ACETAMINOPHEN 1,000 MG/100 ML VIAL IV STA (22:09)
[2025-07-05] MEDS: POLYETHYLENE (MIRALAX) 17 GM PACK PO SCH (22:28)
[2025-07-05] MEDS ORDERED: MINERAL OIL ENEMA 133 ML BTL PR PRN (22:56)
--- NOTE | 2025-07-05 23:07 | Communication Note ---
Date of Service: July 05, 2025 Patient complaining of worsening upper abdominal pain. No overt bleeding. AP Worsening abdominal pain Biliary obstruction on recent imaging NOAC Rx Check LFTs and lipase CTAP
[2025-07-06 10:25] LABS: Hematocrit (blood only) 32.2 % (42.0-52.0); Hemoglobin 10.2 g/dL (14.0-18.0); Immature Granulocytes # (auto) 0.01 K/uL (0.01-0.20); Immature Granulocytes % (auto) 0.2 %; Mean Corpuscular Hemoglobin 24.8 pg (25.0-34.0); Mean Corpuscular Volume 78.3 fL (80.0-100.0); Platelet Count 204 K/uL (130-400); RDW Standard Deviation 53.7 fL (36.4-46.3); Red Blood Count 4.11 M/uL (4.70-6.10); White Blood Count 4.63 K/ul (4.8-10.8)
[2025-07-06 10:42] LABS: Alanine Aminotransferase 10.0 U/L (7-52); Albumin Globulin Ratio 1.3 (0.9-2); Albumin Level 3.5 gm/dl (3.4-5.0); Alkaline Phosphatase 139.0 U/L (34-104); Anion Gap 6.0 (3-11); Bilirubin,Total 0.4 mg/dl (0.2-1.0); Blood Urea Nitrogen 16.0 mg/dl (6-23); Calcium 9.1 mg/dl (8.6-10.3); Carbon Dioxide 27.0 mmol/L (21-32); Chloride 107.0 mmol/L (98-107); Creatinine Clr Calc Pharmacy 180.8 ml/min; Globulin 2.7 gm/dl (2.5-4.0); Glucose 103.0 mg/dl (70-99(Fasting)); Lipase 21.0 U/L (11-82); Potassium 3.7 mmol/L (3.5-5.1); Sodium 140.0 mmol/L (136-145); Total Protein 6.2 gm/dl (6.0-8.3)
--- NOTE | 2025-07-06 12:06 | Hospitalist Progress Note ---
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), recurrent UTI secondary to neurogenic bladder with chronic indwelling suprapubic catheter, autonomic dysreflexia, seizure disorder, history of PRES, HCV status post Rx, chronic anemia (baseline hemoglobin 9-10), chronic sacral osteomyelitis as per records, left foot osteomyelitis status post antibiotic Rx, chronic pain, anxiety/mood disorder, substance abuse as per records, history of MRSA, history ESBL who presents with feeling unwell following discharge from [facility] #Catheter-related bloodstream infection #Fungemia -Blood Culture 06/20/25: 2/4: Grew Georgina parapsilosis; 08/11 growing Stah Pasteuri -Repeat blood cultures 06/23/25: negative to date -Urine culture negative -ECHO: No regional wall motion abnormality. Borderline concentric LVH. EF 65 to 70%. Left ventricle is hyperdynamic. Right ventricle is normal in size and function. LV diastolic function is normal. No valvular vegetation noted on echo. -Grande Catheter removed on 06/26/25 Plan ID recommended continuing caspofungin and to change dapto to linezolid through 07/09/25 Will need to be hospitalized until abx regimen is complete Duloxetine on hold while on linezolid #Abd pain -LUQ abd pain -Labs unremarkable including LFTs and lipase -Abd soft NT ND -Constipation might be contributing however last BM was 07/05 -No N/V. Low suspicion for SBO or ileus Plan -Given his severe pain, will recheck CT AP to r/o any other dangerous causes of his pain -Increase oxycodone from 15 to 20mg. He is opioid tolerant #Constipation Last BM was 07/05 Continue bowel regimen #Abnormal CT findings from 07/02/25 regarding dilated CBD MRCP noted Biliary dilatation with no common duct stone seen. There is a possible short segment stricture distally at the common bile duct versus dilated common bile duct due to prior cholecystectomy. Tbil is normal 0.4, ALT/AST are normal, Alk P is elevated at 169 (similar to 168 0n 06/20/25) Discussed with GI team who noted they are not able to perform EUS/ERCP here and that patient should be transferred to a facility that can do procedure GI at [place] reviewed case and deemed there is not an indication for transfer #Chronic hypotension H/O Autonomic dysreflexia Continue midodrine Monitor blood pressure #Sacral decubitus ulcer--chronic Foot pressure ulcer Wound culture from sacrum grew MRSA Continue wound care [id number] mattress Other chronic conditions: Chronic diastolic heart failure (EF 60%, TTE 2024): Not on diuretics at home. 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 Avoid IV opioids Anxiety/mood disorder, at baseline--continue home meds Tobacco/substance abuse as per records--Nicotine patch Paraplegia--fall precautions DVT Px: Eliquis Code Status Full code I spent a total of 54 minutes coordinating, documenting and providing care for this patient excluding time spent in performance of separately billed services Admission and Anticipated Discharge Date Admission Date: June 20, 2025 Subjective C/o LUQ abd pain. he states it has been present for weeks. worse after eating. no N/v/D. he had a bowel movement yesterday Physical Exam Physical Exam: Vitals and labs reviewed General: Chronically ill appearing in NAD. appears older than stated age HEENT: EOMI, PERRLA Neck: Supple Cardiac: RRR no rubs gallops or murmurs Lungs: CTA no rhonchi wheezing or rales Abd: S NT ND BS positive : SPC, not hartman MSK: Full ROM. No obvious deformities Ext: No Edema cyanosis Skin: Warm, Dry Neuro: AOx3 quadriplegia. at baseline Psych: Normal Mood Results & Data Results & Data Vital Signs (Past 12 Hours) Vital Signs Temp Pulse Resp BP Pulse Ox O2 Del Method 07/06/25 10:28 Room Air 07/06/25 07:29 36.4 C L 53 L 16 105/69 95 Room Air (1) Hypotension Hypotension type: unspecified hypotension type Qualified Code(s): I95.9 - Hypotension, unspecified
[2025-07-06] MEDS: OPTIRAY 320 100ml IV ONE (23:55)
--- NOTE | 2025-07-07 01:11 | CT Scan Report ---
EXAM: CT abd pelvis IV con only CLINICAL HISTORY: worsening abd pain, noac TECHNIQUE: Contrast-enhanced CT of the abdomen and pelvis was performed, with the following protocol: axial images with, and reconstructed coronal and sagittal images. Intravenous contrast (93 mL Optiary 320 mg/mL ) was administered. One of the following dose reduction techniques was utilized for this exam: Automated exposure control, adjustment of the mA and/or kV according to patient size, and use of iterative reconstruction. COMPARISON: Prior CT abdomen pelvis dated 07/02/2025. FINDINGS: Abdomen: Liver: Normal in size, shape, and density. No focal lesions, cysts, or masses were identified. Hepatic vasculature are unremarkable. Gallbladder and Biliary System: Evidence of prior cholecystectomy with a clear cholecystectomy bed. Still noted increased CBD diameter, reaching 1.7 cm with mild dilatation of central and bilobar intrahepatic biliary radicles. Pancreas: Pancreatic head, body, and tail are visualized and appear normal in size and density. No pancreatic masses or calcifications were noted. The pancreatic duct is not dilated. Spleen: Normal in size, shape, and density. No splenic lesions or masses were identified. Appendix: Not clearly seen still with no appendiceal abscess or perforation. Kidneys and Adrenal Glands: Multiple left renal calyceal stones the largest is the middle calyx, about 11 x 7.2 mm and 700 HU; unchanged. tiny right middle calyceal stone 2 mm. Small right lower calyceal parenchymal hyperdense focus about 7 mm likely a hyperdense cyst. Unchanged. Both kidneys are normal in size, shape, and position. Cortical thickness is within normal limits. No hydronephrosis. The adrenal glands are unremarkable, with no evidence of masses or hyperplasia. Pelvis: Urinary Bladder: Suprapubic catheter within the urinary bladder. Mild diffuse mural thickening of the renal bladder with an air-fluid level. Tiny dependent stone within the lumen of the urinary bladder. Prostate: Normal in size and contour. No focal lesions or masses identified. Seminal Vesicles: Normal in size and appearance. No abnormalities noted. Rectum and Sigmoid Colon: The colon is heavily loaded by inspissated fecal matter, notably at the rectum and sigmoid colon, with the rectal fecal impaction. unchanged. Peritoneal and Retroperitoneal Structures: No free fluid or abnormal fluid collections were identified within the abdomen or pelvis. No lymphadenopathy was noted. Bowel: No evidence of bowel obstruction or wall thickening. Bones and Soft Tissues: Evidence of sacral decubitus ulcer with focal soft tissue defect and erosion of distal sacrum and coccyx is seen. Unchanged. Basal chest scans showed multiple bilateral atelectatic plates. IMPRESSION: 1. No significant interval changes regarding the previously noted increased CBD diameter with minimal to mild dilatation of central and bilobar intrahepatic biliary radicles. 2. Redemonstration of sacral decubitus ulcer with focal soft tissue defect and non-visualization of the distal sacrum and coccyx is seen. (Unchanged). 3. Redemonstration of nonobstructing bilateral renal calculi. Unchanged. 4. The colon is still heavily loaded by inspissated fecal matter, notably at the rectum and sigmoid colon with rectal fecal impaction. unchanged. 5. No evidence of newly developed abnormalities. Electronically signed by Luke Dunne 07-07-2025 01:11 AM
[2025-07-07 07:01] LABS: Hematocrit (blood only) 33.4 % (42.0-52.0); Hemoglobin 10.5 g/dL (14.0-18.0); Mean Corpuscular Hemoglobin 24.4 pg (25.0-34.0); Mean Corpuscular Volume 77.5 fL (80.0-100.0); Platelet Count 214 K/uL (130-400); RDW Standard Deviation 51.7 fL (36.4-46.3); Red Blood Count 4.31 M/uL (4.70-6.10); White Blood Count 5.53 K/ul (4.8-10.8)
[2025-07-07 07:37] LABS: Alanine Aminotransferase 10.0 U/L (7-52); Albumin Globulin Ratio 1.4 (0.9-2); Albumin Level 3.7 gm/dl (3.4-5.0); Alkaline Phosphatase 141.0 U/L (34-104); Anion Gap 7.0 (3-11); Bilirubin,Total 0.5 mg/dl (0.2-1.0); Blood Urea Nitrogen 15.0 mg/dl (6-23); Calcium 9.2 mg/dl (8.6-10.3); Carbon Dioxide 25.0 mmol/L (21-32); Chloride 104.0 mmol/L (98-107); Creatinine Clr Calc Pharmacy 195.3 ml/min; Globulin 2.7 gm/dl (2.5-4.0); Glucose 96.0 mg/dl (70-99(Fasting)); Potassium 3.8 mmol/L (3.5-5.1); Sodium 136.0 mmol/L (136-145); Total Protein 6.4 gm/dl (6.0-8.3)
[2025-07-07 08:16] VITALS: RESP 16
--- NOTE | 2025-07-07 09:59 | Hospitalist Progress Note ---
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), recurrent UTI secondary to neurogenic bladder with chronic indwelling suprapubic catheter, autonomic dysreflexia, seizure disorder, history of PRES, HCV status post Rx, chronic anemia (baseline hemoglobin 9-10), chronic sacral osteomyelitis as per records, left foot osteomyelitis status post antibiotic Rx, chronic pain, anxiety/mood disorder, substance abuse as per records, history of MRSA, history ESBL who presents with feeling unwell following discharge from [facility] #Catheter-related bloodstream infection #Fungemia -Blood Culture 06/20/25: 2/4: Grew Georgina parapsilosis; 08/11 growing Stah Pasteuri -Repeat blood cultures 06/23/25: negative to date -Urine culture negative -ECHO: No regional wall motion abnormality. Borderline concentric LVH. EF 65 to 70%. Left ventricle is hyperdynamic. Right ventricle is normal in size and function. LV diastolic function is normal. No valvular vegetation noted on echo. -Grande Catheter removed on 06/26/25 Plan ID recommended continuing caspofungin and to change dapto to linezolid through 07/09/25 Will need to be hospitalized until abx regimen is complete Duloxetine on hold while on linezolid #Abd pain -LUQ abd pain -Labs remain unremarkable including LFTs and lipase -Abd soft NT ND -Constipation might be contributing however last BM was 07/05 -No N/V. Low suspicion for SBO or ileus -CT AP 07/06 reviewed, reassuring but did show severe chronic constipation -Last BM 07/05 Plan -Begin aggressive bowel regimen -Enema today -Miralax BID, dulcolax suppository, senokot BID, lactulose -Suspect OIC, may need relistor if no BM with enema today #Abnormal CT findings from 07/02/25 regarding dilated CBD MRCP noted Biliary dilatation with no common duct stone seen. There is a possible short segment stricture distally at the common bile duct versus dilated common bile duct due to prior cholecystectomy. Tbil is normal 0.4, ALT/AST are normal, Alk P is elevated at 169 (similar to 168 0n 06/20/25) Discussed with GI team who noted they are not able to perform EUS/ERCP here and that patient should be transferred to a facility that can do procedure GI at [place] reviewed case and deemed there is not an indication for transfer #Chronic hypotension H/O Autonomic dysreflexia Continue midodrine Monitor blood pressure #Sacral decubitus ulcer--chronic Foot pressure ulcer Wound culture from sacrum grew MRSA Continue wound care [id number] mattress Other chronic conditions: Chronic diastolic heart failure (EF 60%, TTE 2024): Not on diuretics at home. 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 Avoid IV opioids Anxiety/mood disorder, at baseline--continue home meds Tobacco/substance abuse as per records--Nicotine patch Paraplegia--fall precautions Chronic hypotension- continue midodrine DVT Px: Eliquis Code Status Full code I spent a total of 51 minutes coordinating, documenting and providing care for this patient excluding time spent in performance of separately billed services Admission and Anticipated Discharge Date Admission Date: June 20, 2025 Subjective C/o LUQ abd pain., much improved today. Patient denies F/C, CP, palpitations, SOB, dyspnea, N/V/D Physical Exam Physical Exam: Vitals and labs reviewed General: Chronically ill appearing in NAD. appears older than stated age HEENT: EOMI, PERRLA Neck: Supple Cardiac: RRR no rubs gallops or murmurs Lungs: CTA no rhonchi wheezing or rales Abd: S NT ND BS positive : SPC, not hartman MSK: Full ROM. No obvious deformities Ext: No Edema cyanosis Skin: Warm, Dry Neuro: AOx3 quadriplegia. at baseline Psych: Normal Mood Results & Data Results & Data Vital Signs (Past 12 Hours) Vital Signs Temp Pulse Pulse Resp BP Pulse Ox O2 Del Method 07/07/25 08:15 36.7 C 54 L 16 83/54 L 94 Room Air 07/06/25 22:49 36.9 C 73 18 123/86 95 Room Air Laboratory Results Abnormal lab results 07/06/25 07/07/25 Range/Units 10:00 06:02 WBC 4.63 L (4.8-10.8) K/ul RBC 4.11 L 4.31 L (4.70-6.10) M/uL Hgb 10.2 L 10.5 L (14.0-18.0) g/dL Hct 32.2 L 33.4 L (42.0-52.0) % MCV 78.3 L 77.5 L (80.0-100.0) fL MCH 24.8 L 24.4 L (25.0-34.0) pg MCHC 31.7 L 31.4 L (32.0-36.0) g/dL RDW Std Deviation 53.7 H 51.7 H (36.4-46.3) fL RDW Coeff of Adelia 19.1 H 18.8 H (11.5-14.5) % MPV 9.2 L (9.4-12.4) fL Creatinine 0.54 L 0.50 L (0.6-1.4) mg/dl BUN/Creatinine Ratio 29.6 H 30.0 H (10-20) Glucose 103 H (70-99(Fasting)) mg/dl Alkaline Phosphatase 139 H 141 H (34-104) U/L (1) Hypotension Hypotension type: unspecified hypotension type Qualified Code(s): I95.9 - Hypotension, unspecified
[2025-07-08] MEDS: MIDODRINE HCL 10 MG TAB PO STA (01:07)
[2025-07-08] MEDS: SODIUM CHLORIDE 0.9% 1,000 ML IV ONE (01:08)
[2025-07-08 08:44] LABS: Hematocrit (blood only) 32.2 % (42.0-52.0); Hemoglobin 10.0 g/dL (14.0-18.0); Mean Corpuscular Hemoglobin 24.5 pg (25.0-34.0); Mean Corpuscular Volume 78.9 fL (80.0-100.0); Platelet Count 185 K/uL (130-400); RDW Standard Deviation 53.5 fL (36.4-46.3); Red Blood Count 4.08 M/uL (4.70-6.10); White Blood Count 5.86 K/ul (4.8-10.8)
[2025-07-08] MEDS: MINERAL OIL ENEMA 133 ML BTL PR SCH (09:34)
--- NOTE | 2025-07-08 09:41 | Hospitalist Progress Note ---
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), recurrent UTI secondary to neurogenic bladder with chronic indwelling suprapubic catheter, autonomic dysreflexia, seizure disorder, history of PRES, HCV status post Rx, chronic anemia (baseline hemoglobin 9-10), chronic sacral osteomyelitis as per records, left foot osteomyelitis status post antibiotic Rx, chronic pain, anxiety/mood disorder, substance abuse as per records, history of MRSA, history ESBL who presents with feeling unwell following discharge from [facility] #Catheter-related bloodstream infection #Fungemia -Blood Culture 06/20/25: 2/4: Grew Georgina parapsilosis; 08/11 growing Stah Pasteuri -Repeat blood cultures 06/23/25: negative to date -Urine culture negative -ECHO: No regional wall motion abnormality. Borderline concentric LVH. EF 65 to 70%. Left ventricle is hyperdynamic. Right ventricle is normal in size and function. LV diastolic function is normal. No valvular vegetation noted on echo. -Grande Catheter removed on 06/26/25 Plan ID recommended continuing caspofungin and to change dapto to linezolid through 07/09/25 Will need to be hospitalized until abx regimen is complete Duloxetine on hold while on linezolid Anticipate DC home tomorrow once abx are finished #Abd pain -LUQ abd pain -Labs remain unremarkable including LFTs and lipase -Abd soft NT ND -Constipation might be contributing however last BM was 07/05 -No N/V. Low suspicion for SBO or ileus -CT AP 07/06 images reviewed, reassuring but did show severe chronic constipation -Last BM 07/07 Plan -Continue aggressive bowel regimen -Enema again today -Miralax BID, dulcolax suppository, senokot BID, lactulose #Abnormal CT findings from 07/02/25 regarding dilated CBD MRCP noted Biliary dilatation with no common duct stone seen. There is a possible short segment stricture distally at the common bile duct versus dilated common bile duct due to prior cholecystectomy. Tbil is normal 0.4, ALT/AST are normal, Alk P is elevated at 169 (similar to 168 0n 06/20/25) Discussed with GI team who noted they are not able to perform EUS/ERCP here and that patient should be transferred to a facility that can do procedure GI at [place] reviewed case and deemed there is not an indication for transfer #Chronic hypotension H/O Autonomic dysreflexia Continue midodrine Monitor blood pressure #Sacral decubitus ulcer--chronic Foot pressure ulcer Wound culture from sacrum grew MRSA Continue wound care [id number] mattress Other chronic conditions: Chronic diastolic heart failure (EF 60%, TTE 2024): Not on diuretics at home. 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 Avoid IV opioids Anxiety/mood disorder, at baseline--continue home meds Tobacco/substance abuse as per records--Nicotine patch Paraplegia--fall precautions Chronic hypotension- continue midodrine DVT Px: Eliquis Code Status Full code I spent a total of 53 minutes coordinating, documenting and providing care for this patient excluding time spent in performance of separately billed services Admission and Anticipated Discharge Date Admission Date: June 20, 2025 Subjective C/o LUQ abd pain., much improved today. Patient denies F/C, CP, palpitations, SOB, dyspnea, N/V/D Physical Exam Physical Exam: Vitals and labs reviewed General: Chronically ill appearing in NAD. appears older than stated age HEENT: EOMI, PERRLA Neck: Supple Cardiac: RRR no rubs gallops or murmurs Lungs: CTA no rhonchi wheezing or rales Abd: S NT ND BS positive : SPC, not hartman MSK: Full ROM. No obvious deformities Ext: No Edema cyanosis Skin: Warm, Dry Neuro: AOx3 quadriplegia. at baseline Psych: Normal Mood Results & Data Results & Data Vital Signs (Past 12 Hours) Vital Signs Temp Pulse Resp BP Pulse Ox O2 Del Method 07/08/25 07:46 36.8 C 59 L 16 119/74 92 Room Air 07/08/25 02:00 55 L 119/77 07/08/25 00:30 36.5 C 62 16 88/57 L 95 Room Air 07/07/25 21:56 60 16 123/78 (1) Hypotension Hypotension type: unspecified hypotension type Qualified Code(s): I95.9 - Hypotension, unspecified
[2025-07-09] VITALS: TEMP 97.7; O2SAT 96
[2025-07-09 08:03] LABS: Hematocrit (blood only) 32.4 % (42.0-52.0); Hemoglobin 10.0 g/dL (14.0-18.0); Mean Corpuscular Hemoglobin 24.4 pg (25.0-34.0); Mean Corpuscular Volume 79.2 fL (80.0-100.0); Platelet Count 191 K/uL (130-400); RDW Standard Deviation 52.6 fL (36.4-46.3); Red Blood Count 4.09 M/uL (4.70-6.10); White Blood Count 6.93 K/ul (4.8-10.8)
--- NOTE | 2025-07-09 09:40 | Discharge Summary ---
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. He was found to have blood stream infections with Georgina parapsilosis and Stah Pasteuri secondary to catheter. ID was consulted. He was started on linezolid and caspofungin per ID. His last day of abx is today. His course was c/b by constipation. He had numerous bowel movements yesterday and again this AM. He also had acute on chronic abd pain. MRCP noted Biliary dilatation with no common duct stone seen. There is a possible short segment stricture distally at the common bile duct versus dilated common bile duct due to prior cholecystectomy. GI was consulted and recommended transfer however GI [place] [facility] [place] and did not believe he needed any procedures for this. His LFTs remained stable. He has no abd pain today and feels well and wishes to go home. vitals and labs are stable for discharge. He was educated on the importance of not drinking or using any drugs while on his chronic pain medications. #Catheter-related bloodstream infection #Fungemia -Blood Culture 06/20/25: 2/4: Grew Georgina parapsilosis; 1/4 growing Stah Pasteuri -Repeat blood cultures 06/23/25: negative to date -Urine culture negative -ECHO: No regional wall motion abnormality. Borderline concentric LVH. EF 65 to 70%. Left ventricle is hyperdynamic. Right ventricle is normal in size and function. LV diastolic function is normal. No valvular vegetation noted on echo. -Grande Catheter removed on 06/26/25 #Abd pain -LUQ abd pain -Labs remain unremarkable including LFTs and lipase -Abd soft NT ND -Constipation might be contributing however last BM was 07/05 -No N/V. Low suspicion for SBO or ileus -CT AP 07/06 images reviewed, reassuring but did show severe chronic constipation -Last BM 07/07 #Abnormal CT findings from 07/02/25 regarding dilated CBD MRCP noted Biliary dilatation with no common duct stone seen. There is a possible short segment stricture distally at the common bile duct versus dilated common bile duct due to prior cholecystectomy. Tbil is normal 0.4, ALT/AST are normal, Alk P is elevated at 169 (similar to 168 0n 06/20/25) Discussed with GI team who noted they are not able to perform EUS/ERCP here and that patient should be transferred to a facility that can do procedure GI at [place] reviewed case and deemed there is not an indication for transfer #Chronic hypotension H/O Autonomic dysreflexia Continue midodrine Monitor blood pressure #Sacral decubitus ulcer--chronic Foot pressure ulcer Wound culture from sacrum grew MRSA Continue wound care [id number] mattress Other chronic conditions: Chronic diastolic heart failure (EF 60%, TTE 2024): Not on diuretics at home. 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 Avoid IV opioids Anxiety/mood disorder, at baseline--continue home meds Tobacco/substance abuse as per records--Nicotine patch Paraplegia--fall precautions Chronic hypotension- continue midodrine DVT Px: Eliquis Code Status Full code I spent a total of 65 minutes coordinating, documenting and providing care for this patient excluding time spent in performance of separately billed services Notes For Next Care Provider Medication Changes From Visit Baclofen dose decreased. home meds were refilled. Admission HPI Per Admitting Provider History obtained from patient and records. 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 Recent [facility] confinement April 2025 for constipation symptoms. Patient seen at [facility] ER last week for suprapubic catheter exchange. Tunneled R CVC catheter on ED provider's exam. Catheter no longer in use after completing antibiotic Rx for left foot osteomyelitis. Removal via IR contemplated at future time. Patient not feeling well the last few days following discharge from imprisonment at [facility]. Achy abdominal pain going to the chest associated with constipation symptoms. Sacral wounds not looking too good as per patient. Denies fever, chills. Denies hematuria/black/bloody stools. No unusual cough or headache symptoms. Patient consulted [facility] ER yesterday morning. Some bowel movement after soapsuds enema given at the ER. Patient discharged home. Patient consulted [facility] due to persistent symptoms but was discharged home. [facility] x-ray officially read as 1. There is suspicion for free intraperitoneal air versus entrapped bowel wall air, which appears more pronounced since the prior study. Correlation with an erect chest PA view and/or a CT scan of the abdomen is advised; follow-up is recommended. 2. Gaseous distention of the bowel loops is present. There is suspicion of pneumointestinalis in the left upper quadrant. 3. Large bowel loops are fecal-loaded, likely due to constipation, with slight interval progression since the prior study. Patient called to come back to ER to get a CAT scan. Lowest SBP of 60s documented at the ER. Zosyn and multiple crystalloid boluses administered at the ER. SBP currently 100s. Medical History as above Surgical History : Ankle surgery, neck surgery, urologic procedures, arm surgery, appendectomy, leg abscess drainage/metatarsal surgery, cholecystectomy, wound debridement Family History : Heart disease Personal/Social history : 2 packs daily, occasional EtOH intake, disabled Discharge Exam Gen: A&O 3 NAD HEENT: NCAT, EOMI, not icteric. External ears normal. No rhinorrhea. Moist mucous membranes. Neck: Supple, full range of motion, no observable masses, No meningeal sign. Lungs: No Respiratory distress. CV: RRR, no edema. Abdomen: Soft, nondistended, No rebound tenderness. SPC in place without erythema MSK: No joint swelling, no redness. Skin: No rashes, petechiae, lesions. Normal color without jaundice Neuro: noted partial quadriplegia, at baseline Psych: Appropriate for situation. Updated Medication List Medication Instructions Recorded Confirmed Type albuterol sulfate 2.5 mg/3 mL 1.25 mg inhalation Q4H PRN 08/26/24 06/21/25 History (0.083 %) solution for nebulization Shortness Of Breath Or Wheezing baclofen 10 mg tablet 20 mg PO TID 08/26/24 06/21/25 History bisacodyl 10 mg rectal suppository 10 mg VT QAM 08/26/24 06/21/25 History budesonide-formoterol HFA 160 2 puff inhalation AMHS 08/26/24 06/21/25 History mcg-4.5 mcg/actuation aerosol inhaler docusate sodium 100 mg capsule 100 mg PO AMPM PRN Constipation 08/26/24 06/21/25 History hydroxyzine HCl 25 mg tablet 25 mg PO DAILY PRN Anxiety 08/26/24 06/21/25 History lactulose 10 gram/15 mL oral 20 g PO TID 08/26/24 06/21/25 History solution midodrine 10 mg tablet 10 mg PO TID 08/26/24 06/21/25 History oxybutynin chloride 10 mg 10 mg PO QAM 08/26/24 06/21/25 History tablet,extended release 24 hr pantoprazole 40 mg tablet,delayed 40 mg PO QAM 08/26/24 06/21/25 History release sennosides 8.6 mg-docusate sodium 2 tab PO HS 08/26/24 06/21/25 History 50 mg tablet (Senexon-S) tiotropium bromide 2.5 2 puff inhalation QAM 08/26/24 06/21/25 History mcg/actuation mist for inhalation (Spiriva Respimat) acetaminophen 325 mg tablet 650 mg PO Q6 PRN Fever Or Pain 09/30/24 06/21/25 History ondansetron 4 mg disintegrating 4 mg translingual Q6 PRN Nausea 09/30/24 06/21/25 History tablet apixaban 5 mg tablet (Eliquis) 5 mg PO AMHS 03/21/25 06/21/25 History levetiracetam 1,000 mg tablet 1,000 mg PO AMHS 03/21/25 06/21/25 History duloxetine 60 mg capsule,delayed 60 mg PO QAM #30 caps 04/17/25 06/21/25 Rx release pregabalin 75 mg capsule (Lyrica) 75 mg PO TID #90 caps 04/17/25 06/21/25 Rx sodium chloride 0.9 % (flush) 10 ml IV DIRECTED 04/26/25 06/21/25 History oxycodone 15 mg tablet 15 mg PO Q4H PRN severe pain 04/27/25 06/21/25 Rx (scale score 7-10) #40 tabs diclofenac sodium 1 % topical gel 2 g topical QID PRN Pain 06/21/25 06/21/25 History guaifenesin 100 mg/5 mL oral liquid 200 mg PO QID PRN Cough 06/21/25 06/21/25 History heparin, porcine (PF) 10 unit/mL 10 unit IV UD 06/21/25 06/21/25 History intravenous syringe (Heparin Lock Flush (Porcine) (PF)) melatonin 3 mg capsule 3 mg PO HS 06/21/25 06/21/25 History multivitamin 1 tab PO QAM 06/21/25 06/21/25 History naloxone 0.4 mg/mL injection 0 mg intranasal UD 06/21/25 06/21/25 History solution simethicone 80 mg chewable tablet 80 mg PO TID 06/21/25 06/21/25 History apixaban 5 mg tablet (Eliquis) 5 mg PO AMHS 30 days #30 tabs 07/09/25 Rx baclofen 10 mg tablet 10 mg PO TID 30 days #90 tabs 07/09/25 Rx duloxetine 60 mg capsule,delayed 60 mg PO QAM 30 days #30 caps 07/09/25 Rx release hydroxyzine HCl 25 mg tablet 25 mg PO BID PRN anxiety 30 days 07/09/25 Rx #60 tabs levetiracetam 500 mg tablet 1,000 mg (2 x 500 mg) PO AMHS 30 07/09/25 Rx (Keppra) days #60 tabs midodrine 10 mg tablet 10 mg PO TID 30 days #90 tabs 07/09/25 Rx oxybutynin chloride 5 mg 10 mg (2 x 5 mg) PO QAM 30 days 07/09/25 Rx tablet,extended release 24 hr #60 tabs oxycodone 15 mg tablet 15 mg PO Q4H PRN pain #15 tabs 07/09/25 Rx pantoprazole 40 mg tablet,delayed 40 mg PO QAM 30 days #30 tabs 07/09/25 Rx release pregabalin 75 mg capsule (Lyrica) 75 mg PO TID 30 days #90 caps 07/09/25 Rx Hospital Stay Data Consultations 06/20/25 23:38 ED Decision to Admit Stat 06/21/25 03:12 Consult Infectious Diseases Routine 06/21/25 14:50 Consult Vascular Surgery Routine 07/02/25 13:47 Consult Gastroenterology Routine 07/02/25 15:01 Consult Patient Rep [Consult Patient Services] Routine Procedures Performed Operation Date: 06/26/25 14:50 Actual Procedures p Grande Catheter Removal(Right) - Martin Alonso MD Diagnostic Imagining Performed 06/20/25 19:40 CT abd pelvis IV con only Stat 07/02/25 02:26 CT Abd and Pelvis [CT abd pelvis IV con only] Stat 07/02/25 07:16 MR MRCP Stat 07/05/25 23:07 CT Abd and Pelvis [CT abd pelvis IV con only] Stat Pending Results Patient Have Any Pending Studies at Discharge: No Discharge Instructions Given to Patient (Per Discharging Provider) You have completed all of your antibiotics today. Please follow up with your PCP next week, or BENY. Follow up with your Pain doctor BENY Total Time Total Time Spent Total Time Spent (In Minutes): 65
[2025-07-09 12:48] VITALS: BP 127/87; PULSE 62
== END 2025-07-09 13:35 | disposition home or self-care (01) | DRG 314 ==
LOC: ED 19:24 → 2E 23:59 → SUATTDRO 23:59 → 2E 06-21 02:05 → 3W 06-22 16:07